=== PATIENT | female | born 1985 | race Caucasian/White ===

== ENCOUNTER 2018-08-30 20:09 | Inpatient (IN) | payer BC, OTHER ==
[~2018-08-30] VITALS: Ht 167.6 cm; Wt 92.5 kg
[~2018-08-30 20:09] MED LIST: ENLP5T GT; LINA290C PO
[2018-08-30] MEDS ORDERED: NS IV 1000 ML 1,000 ML IV SCH (20:19)
--- OUTSIDE RECORDS SUMMARY | 2018-08-30 20:19 | XMS REPORT ---
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 Active 13805460 Problem Chronic kidney disease, stage 3 N18.3 Active 030777764 Problem CHI I (cervical intraepithelial neoplasia I) N87.0 Active 449293916 Problem Mild episode of recurrent major depressive disorder F33.0 Active 603226731 Problem Addiction to drug F19.20 Active 224350691 Problem Essential hypertension I10 Active 49157894 Problem Opioid use disorder, severe, in sustained remission F11.21 Active 21218867 Problem Irritable bowel syndrome with constipation K58.1 Active 902021894 ALLERGIES No Information ENCOUNTERS Encounter Location Date Diagnosis [place] [id number] [place] [address] 06906- 4714 12 Aug, 2018 Opioid use disorder, severe, 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 [facility] [address] [place] [address] 21 Jul, 2018 Opioid use disorder, severe, in sustained remission F11.21 [place] [id number] [place] [address] 76174- 7737 19 Jul, 2018 [place] [id number] [place] [address] 90242- 9764 14 Jul, 2018 Opioid use disorder, moderate, dependence F11.20 and Opioid use disorder, severe, 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 [place] [id number] [place] [address] 68608- 7799 Jun, Opioid use disorder, severe, 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 [facility] [id number] [place] [address] 07861- 8213 Jun, [facility] [id number] [place] [address] 00198- 9380 May, Opioid use disorder, severe, 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 [facility] [id number] [place] [address] 90736- 1938 May, [facility] [address] 44352- 0606 May, [facility] [id number] [place] [address] 36339- 1616 May, Opioid use disorder, severe, 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 [facility] [address] [place] [address] May, Opioid use disorder, severe, in sustained remission F11.21 [facility] [id number] [place] [address] 65793- 0591 Apr, [facility] [id number] [place] [address] 02922- 1945 Apr, [facility] [id number] [place] [address] 57777- 8377 Apr, [facility] [id number] [place] [address] 10711- 1398 Apr, Opioid use disorder, severe, 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 [facility] [id number] [place] [address] 02889 -6347 Apr, Bacterial conjunctivitis of left eye H10.9 [facility] [id number] [place] [address] 80575- 4679 Apr, [facility] [address] 12484- 6877 Apr, [facility] [id number] [place] [address] 53894- 3823 Mar, Essential hypertension I10 and Irritable bowel syndrome with constipation K58.1 [facility] [id number] [place] [address] 82428- 8573 Mar, [facility] [id number] [place] [address] 71142- 1908 Mar, Chronic kidney disease, stage 3 N18.3 ; 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 ; Opioid use disorder, severe, in sustained remission F11.21 and Mixed hyperlipidemia E78.2 [facility] [id number] [place] [address] 58050- 8356 Mar, Mixed hyperlipidemia E78.2 [facility] [id number] [place] [address] 69960- 0325 Mar, Opioid use disorder, severe, 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 [facility] [id number] [place] [address] 39436- 8222 Mar, [facility] [address] [place] [address] Mar, Opioid use disorder, severe, in sustained remission F11.21 [facility] [id number] [place] [address] 05372- 9901 Jan, Opioid use disorder, severe, 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 [facility] [id number] [place] [address] 68644- 8971 December, Opioid use disorder, severe, 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 [facility] [address] [place] [address] December, Opioid use disorder, severe, in sustained remission F11.21 [facility] [address] [place] [address] 62958- 6617 December, Opioid use disorder, severe, in sustained remission F11.21 and 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 [facility] [id number] [place] [address] 67120- 5051 December, Opioid use disorder, severe, 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 [facility] [address] [place] [address] Dec, Opioid use disorder, severe, in sustained remission F11.21 [facility] [id number] [place] [address] 56765- 8765 Dec, 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 ; Unprotected sexual intercourse Z72.51 ; Pain of left thumb M79.645 ; Mixed hyperlipidemia E78.2 ; Gastroparesis K31.84 ; Essential hypertension I10 and Irritable bowel syndrome with constipation K58.1 [facility] [address] 91508- 3119 Dec, Opioid use disorder, severe, 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 [facility] [address] 74745- 4694 Oct, [facility] [address] 95660- 6637 Oct, Opioid use disorder, severe, 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 [facility] [id number] [place] [address] 71091- 9306 Oct, [facility] [id number] [place] [address] 22546- 4644 Oct, Opioid use disorder, severe, 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 [facility] [id number] [place] [address] 32464- 9020 Oct, [facility] [address] 72525- 7564 Oct, [facility] [address] [place] [address] Oct, Opioid use disorder, severe, in sustained remission F11.21 [facility] [address] 12433- 5509 Sep, [facility] [address] [place] [address] 09973- 3919 Sep, [facility] [id number] [place] [address] 811332- 7238 Sep, Opioid use disorder, severe, 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 [facility] [id number] [place] [address] 31744- 9635 Aug, Opioid use disorder, severe, 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 [facility] [id number] [place] [address] 66898- 5667 Jul, [facility] [id number] [place] [address] 81758- 6445 Jul, Chronic kidney disease, stage 3 N18.3 ; Dysthymia F34.1 and Opioid use disorder, severe, in sustained remission F11.21 [facility] [address] [place] [address] Jul, Opioid use disorder, severe, in sustained remission F11.21 [facility] [id number] [place] [address] 35383- 7178 Jul, Long-term use of high-risk medication Z79.899 and Chronic kidney disease, stage 3 N18.3 [facility] [address] [place] [address] 36451- 9497 Jul, Opioid use disorder, severe, 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 [facility] [address] [address] 1101 Jul, [facility] [id number] [place] [address] 68387- 4963 Jun, [facility] [id number] [place] [address] 47283- 8907 Jun, [facility] [address] [place] [address] 26481- 0718 Jun, Opioid use disorder, moderate, dependence F11.20 and Opioid use disorder, severe, 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 [facility] [id number] [place] [address] 26147- 7750 Jun, [facility] [id number] [place] [address] 28519- 0437 Jun, Long-term use of high-risk medication Z79.899 [place] [address] 43603- 2769 Jun, CHI I (cervical intraepithelial neoplasia I) N87.0 [place] [address] 91210- 4062 22 May, 2017 Opioid use disorder, severe, 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 [place] [id number] [place] [address] 76202- 1198 18 May, 2017 Chronic kidney disease, stage 3 N18.3 [place] [address] 06333- 2290 14 May, 2017 Chronic kidney disease, stage 3 N18.3 [place] [address] [place] [address] 05 May, 2017 Opioid use disorder, severe, in sustained remission F11.21 [place] [id number] [place] [address] 14821- 5271 Apr, LGSIL on Pap smear of cervix R87.612 [facility] [address] [place] [address] Apr, [facility] [id number] [place] [address] 44332- 3395 Apr, Opioid use disorder, severe, 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 [place] [id number] [place] [address] 10577- 5367 Apr, Opioid use disorder, severe, 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 [place] [id number] [place] [address] 41941- 0831 Apr, Opioid use disorder, severe, 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 [facility] [address] [place] [address] 41262- 0381 Apr, Opioid use disorder, severe, 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 [facility] [id number] [place] [address] 82696- 3709 14 Apr, 2017 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 [facility] [id number] [place] [address] 81194- 1815 Apr, Opioid use disorder, severe, 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 [facility] [address] [place] [address] Apr, Opioid use disorder, severe, in sustained remission F11.21 [facility] [id number] [place] [address] 52747- 3675 Apr, Opioid use disorder, severe, 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 [facility] [id number] [place] [address] 59731- 2018 Apr, Mild episode of recurrent major depressive disorder F33.0 and Right acute serous otitis media, recurrence not specified H65.01 [facility] [id number] [place] [address] 78157- 9593 Mar, [facility] [id number] [place] [address] 48977- 7731 Mar, Opioid use disorder, severe, 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 [facility] [id number] [place] [address] 06487- 2667 Mar, [facility] [address] [place] [address] Mar, Opioid use disorder, severe, in sustained remission F11.21 [facility] [address] [place] [address] Mar, Opioid use disorder, severe, in sustained remission F11.21 [facility] [id number] [place] [address] 15859- 3452 Mar, Opioid use disorder, severe, 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 [facility] [id number] [place] [address] 34729- 9371 Jan, Opioid use disorder, severe, 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 [facility] [address] [place] [address] Jan, Opioid use disorder, severe, in sustained remission F11.21 [facility] [address] [place] [address] Jan, Opioid use disorder, severe, in sustained remission F11.21 [facility] [address] [place] [id number] [place] [address] 07656- 7372 Jan, Opioid use disorder, severe, 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 [facility] [address] [place] [address] Jan, Opioid use disorder, severe, in sustained remission F11.21 [place] [id number] [place] [address] 50541- 0813 December, Opioid use disorder, severe, 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 [facility] [address] [place] [address] December, Opioid use disorder, severe, in sustained remission F11.21 [place] [id number] [place] [address] 32618- 2055 December, Routine gynecological examination Z01.419 and Chronic kidney disease, stage 3 N18.3 [place] [id number] [place] [address] 49265- 4005 December, Chronic kidney disease, stage 3 N18.3 ; 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 ; Gastroparesis K31.84 ; Essential hypertension I10 and Irritable bowel syndrome with constipation K58.1 [facility] [address] [place] [address] December, Opioid use disorder, severe, in sustained remission F11.21 [facility] [address] [place] [id number] [place] [address] 56868- 7995 December, Opioid use disorder, severe, 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 [facility] [address] [place] [address] December, Opioid use disorder, severe, in sustained remission F11.21 [facility] [id number] [place] [address] 20173- 5594 December, Encounter for therapeutic drug level monitoring Z51.81 [facility] [address] [place] [address] December, Opioid use disorder, severe, in sustained remission F11.21 [facility] [address] [place] [address] Dec, Opioid use disorder, severe, in sustained remission F11.21 [facility] [id number] [place] [address] 49498- 9411 Dec, Opioid use disorder, severe, 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 [facility] [id number] [place] [address] 61663- 3707 Dec, [facility] [address] [place] [address] Dec, Opioid use disorder, severe, in sustained remission F11.21 [facility] [address] [place] [id number] [place] [address] 52746- 9524 Dec, Opioid use disorder, severe, 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 [facility] [address] [place] [address] Dec, Opioid use disorder, severe, in sustained remission F11.21 [facility] [address] [place] [id number] [place] [address] 34825- 1666 Dec, 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 [facility] [address] [place] [address] 96902- 8102 Dec, Opioid use disorder, severe, in sustained remission F11.21 ; Encounter for therapeutic drug level monitoring Z51.81 and Other mcc ( 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 Z79.899 [facility] [address] [place] [address] Oct, Opioid use disorder, severe, in sustained remission F11.21 [facility] [address] [place], [place] [id number] [place] [address] 93138- 2982 23 Oct, 2016 Opioid use disorder, severe, 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 [facility] [id number] [place] [address] 45091- 6395 15 Oct, 2016 [facility] [address] [place] [address] 15 Oct, 2016 Opioid use disorder, severe, in sustained remission F11.21 [facility] [id number] [place] [address] 95690- 7440 15 Oct, 2016 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 [facility] [id number] [place] [address] 22867- 9815 14 Oct, 2016 Routine gynecological examination Z01.419 [facility] [id number] [place] [address] 89450- 6287 07 Oct, 2016 Opioid use disorder, severe, 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 [facility] [id number] [place] [address] 36878- 2602 06 Oct, 2016 Opioid use disorder, severe, 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 [facility] [id number] [place] [address] 56757- 5837 06 Oct, 2016 Opioid use disorder, severe, 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 [facility] [address] [place] [address] 02 Oct, 2016 Opioid use disorder, severe, in sustained remission F11.21 [facility] [id number] [place] [address] 16436- 7167 24 Oct, 2016 Opioid use disorder, severe, 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 [facility] [id number] [place] [address] 43326- 9291 Oct, Opioid use disorder, severe, 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 [facility] [address] [place] [address] Oct, Opioid use disorder, severe, in sustained remission F11.21 [facility] [address] [place] [address]- 8243 20 Oct, 2016 Opioid use disorder, severe, in sustained remission F11.21 ; Encounter for therapeutic drug level monitoring Z51.81 and Other long distance operator ( 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 Z79.899 [facility] [id number] [place] [address] 98364- 7956 16 Oct, 2016 [facility] [address] [place] [address] 14 Oct, 2016 Opioid use disorder, severe, 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 [facility] [address] [place] [address] 10 Oct, 2016 Opioid use disorder, severe, 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 [facility] [address] 41106- 8459 09 Oct, 2016 Opioid use disorder, severe, 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 [facility] [address] 31998- 7945 08 Oct, 2016 [facility] [address] 45274- 2540 Oct, [facility] [address] 16969- 9772 Oct, [facility] [address] [place] [address] Oct, Opioid use disorder, severe, 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 [facility] [address] 08383- 4438 Sep, Opioid use disorder, severe, 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 [facility] [address] [place] [address] Sep, Opioid use disorder, severe, 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 [facility] [id number] [place] [address] 29971- 6171 Sep, Opioid use disorder, severe, 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 ; Other long distance operator (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 Z79.899 and Encounter for therapeutic drug level monitoring Z51.81 [place] [id number] [place] [address] 66605- 6703 Sep, [facility] [id number] [place] [address] 54753- 1697 Sep, [facility] [id number] [place] [address] 41205- 2148 Sep, Opioid use disorder, severe, 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 ; 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 ; Chronic kidney disease, stage 3 N18.3 ; Essential hypertension I10 and Irritable bowel syndrome with constipation K58.1 [facility] [address] [place] [address] Sep, Opioid use disorder, severe, 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 [facility] [address] [place] [address] Sep, Opioid use disorder, severe, 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 05421- 8455 Sep, Opioid use disorder, moderate, dependence F11.20 [facility] [address] [place] [id number] [place] [address] 29565- 1066 Sep, Opioid use disorder, moderate, dependence F11.20 [facility] [address] [place] [address] Sep, Opioid use disorder, severe, 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 [place] [id number] [place] [address] 52943- 3050 Sep, Opioid use disorder, severe, 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 [facility] [address] [place] [address] Aug, Opioid use disorder, severe, 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 [facility] [address] [place] [id number] [place] [address] 26903- 0277 Aug, Opioid use disorder, moderate, dependence F11.20 [facility] [id number] [place] [address] 21326 -0097 26 Dec, 2016 Bug bite without infection, initial encounter W57.XXXA [facility] [address] [place] [address] 50522- 3405 Aug, Opioid use disorder, moderate, dependence F11.20 [facility] [address] [place] [address] Aug, [facility] [id number] [place] [address] 38747- 8878 Aug, Opioid use disorder, severe, 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 ; Other mcc (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 Z79.899 ; Encounter for therapeutic drug level monitoring Z51.81 and 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 [facility] [address] [place] [address] Aug, [facility] [id number] [place] [address] 37781- 7401 Aug, Opioid use disorder, moderate, dependence F11.20 ; Other long distance operator (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 Z79.899 and Encounter for therapeutic drug level monitoring Z51.81 [facility] [id number] [place] [address] 83756- 0828 Aug, [facility] [id number] [place] [address] 62831- 2014 Aug, Non-intractable vomiting with nausea, unspecified vomiting type R11.2 [facility] [id number] [place] [address] 53933- 5629 Aug, Opioid use disorder, moderate, dependence F11.20 and Non- intractable vomiting with nausea, unspecified vomiting type R11.2 [facility] [address] [place] [address] 45485- 6039 Aug, [facility] [id number] [place] [address] 59042- 1666 Aug, Opioid use disorder, moderate, dependence F11.20 [facility] [id number] [place] [address] 07141- 2723 Aug, [facility] [id number] [place] [address] 75434- 2314 Jul, 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 and Opioid use disorder, moderate, dependence F11.20 [facility] [address] [place] [address] Jul, [facility] [id number] [place] [address] 72230- 8281 Jul, [facility] [address] 04067- 4710 Jul, [facility] [address] 48649- 2745 Jul, Addiction to drug F19.20 and Chronic kidney disease, stage 3 N18.3 [facility] [address] [place] [address] Jul, Counseling on substance use and abuse Z71.89 [facility] [address] 19165- 5421 Jul, Chronic kidney disease, stage 3 N18.3 [facility] [id number] [place] [address] 13600- 3677 Jul, 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 ; Diarrhea, unspecified type R19.7 and Essential hypertension I10 [facility] [id number] [place] [id number] Jul, [facility] [id number] [place] [id number] Jun, [facility] [address] [id number] [address] [place] [address] 88013- 3278 Jun, [facility] [address] [address]- [address]67 Apr, 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 [facility] [id number] [place] [address] 62620- 2849 Apr, Sore throat and laryngitis J06.0 and Non-intractable vomiting with nausea, unspecified vomiting type R11.2 [place] [id number] [place] [address] 58032- 8879 Apr, [facility] [id number] [place] [address] 35211- 3592 Mar, [place] [id number] [place] [address] 36050- 6581 Jan, [place] [id number] [place] [address] 69065- 0554 Jan, [place] [id number] [place] [address] 70957- 9125 Jan, [place] [id number] [place] [address] 02573- 3503 December, 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 ; Gastroparesis K31.84 ; Mixed hyperlipidemia E78.2 ; Chronic kidney disease, stage 3 N18.3 ; Dysthymia F34.1 and Acute bilateral low back pain without sciatica M54.5 [place] [id number] [place] [address] 13092- 0719 December, [place] [id number] [place] [address] 37600- 1326 December, [facility] [id number] [place] [address] 59861- 3781 Aug, Depression F32.9 and Gastroparesis K31.84 [place] [id number] [place] [address] 56607- 1753 Aug, Gastroparesis K31.84 [place] [id number] [place] [address] 56506- 1337 Jul, Recurrent UTI N39.0 ; Chronic kidney disease, stage 3 N18.3 and 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 [facility] [id number] [place] [address] 32522- 0582 Jul, [facility] [address] [id number] Jul, Dental examination Z01.20 and Dental caries K02.9 [facility] [id number] [place] [address] 79143- 5044 17 Jul, 2015 [facility] [id number] [place] [address] 53125 -4442 Jul, Dysuria R30.0 ; Urinary tract infection N39.0 and Nausea R11.0 [facility] [id number] [place] [address] 94006- 7934 Jun, Dysuria R30.0 [facility] [id number] [place] [address] 80394- 7889 Jun, Dysuria R30.0 [facility] [id number] [place] [address] 35878- 3642 Jun, Dysuria R30.0 [facility] [id number] [place] [address] 37274- 0282 Jun, [facility] [id number] [place] [address] 32389- 8693 Jun, Acute cystitis with hematuria N30.01 [facility] [id number] [place] [address] 00806- 6335 May, [facility] [id number] [place] [address] 98857- 7274 Apr, Diabetes mellitus without mention of complication, type I [ juvenile type], not stated as uncontrolled 250.01 ; Gastroparesis due to DM 250.60 ; Contraception management V25.9 and Renal insufficiency 593.9 [facility] [id number] [place] [address] 98177- 6963 Apr, [facility] [id number] [place] [address] 56723- 7152 Apr, [place] [id number] [place] [address] 43550- 3503 Mar, [place] [id number] [place] [address] 10307- 4099 Mar, Hyperlipidemia 272.4 and Hypertensive heart and chronic kidney disease, benign, without heart failure and with chronic kidney disease stage I through stage IV, or unspecified 404.10 [address] [id number] [place] [address] 08209- 7008 Mar, Hyperlipidemia 272.4 ; Hyponatremia 276.1 ; 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 ; Hypertensive heart and chronic kidney disease, benign, without heart failure and with chronic kidney disease stage I through stage IV, or unspecified 404.10 ; Proteinuria 791.0 and Chronic kidney disease (CKD), stage III (moderate) 585.3 [address] [id number] [place] [address] 67549- 4560 Mar, [place] [id number] [place] [address] 41151- 0355 Mar, Elevated blood sugar level 790.29 [place] [id number] [place] [address] 73622- 5480 Mar, Low grade squamous intraepithelial lesion (LGSIL) on cervical Pap smear 795.03 [place] [id number] [place] [address] 88780- 2815 Mar, Amenorrhea 626.0 [place] [id number] [place] [address] 23472- 1299 Jan, Amenorrhea 626.0 ; Routine gynecological examination V72.31 and Screen for STD (sexually transmitted disease) V74.5 [place] [id number] [place] [address] 49408- 2511 Jan, Amenorrhea 626.0 [address] [place] [address] 42320- 5413 Jan, Routine gynecological examination V72.31 ; Screen for STD ( sexually transmitted disease) V74.5 ; Pap test, as part of routine gynecological examination V76.2 ; Breast cancer screening V76.10 and Amenorrhea 626.0 [facility] [address] [address]- 6806 December, [facility] [address], [place] [address]- 7988 Dec, [facility] [address], [place] [address]- 6177 Dec, [facility] [address], [place] [address]- 3633 Oct, [facility] [address], [place] [address]- 3512 Oct, [facility] [address], [place] [address]- 0151 Oct, [facility] [address], [place] [address]- 8338 Oct, [facility] [address], [place] [address]- 4843 Oct, [facility] [address], [place] [address]- 8281 Oct, [facility] [address], [place] [address]- 8345 Oct, [facility] [address], [place] [address]- 8797 Oct, [facility] [address], [place] [address]- 0986 Oct, [facility] [address], [place] [address]- 6736 Oct, [facility] [address] [address]- 1746 Oct, [facility] [id number] [place] [address]- 2110 Sep, [facility] [address] [id number] [place] [address]- 7175 Sep, [facility] [place] [facility] [address] [id number] [place] [address]- 7855 Sep, [facility] [address] [id number] [place] [address]- 4535 Sep, [facility] [place] [facility] [address] [id number] [place] [address]- 5362 Sep, [facility] [address] [id number] [place] [address]- 8010 Sep, [facility] [address] [id number] [place] [address]- 7825 Sep, [facility] [address] [id number] [place] [address]- 5019 Sep, [facility] [address] [id number] [place] [address]- 8504 Sep, [facility] [place] [facility] [address] [id number] [place] [address]- 8086 Sep, [facility] [address] [id number] [place] [address]- 2377 Sep, [facility] [place] [facility] [address] [id number] [place] [address]- 5676 Sep, [facility] [place] [facility] [address] [id number] [place] [address]- 9349 Sep, [facility] [place] [facility] [address] [id number] [place] [address]- 3187 Sep, [facility] [place] [facility] [address] [id number] [place] [address]- 8766 Sep, [facility] [place] [facility] [address] [id number] [place] [address]- 6529 Sep, [facility] [place] [facility] [address] [id number] [place] 1399 Sep, [facility] [place] [facility] [address] [id number] [place] [address]- 7432 Sep, [facility] [place] [facility] [address] [id number] [place] [address]- 0008 Sep, [facility] [place] [facility] [address] [id number] [place] [address]- 4195 Sep, [facility] [place] [facility] [address] [id number] [place] [address]- 2015 Aug, [facility] [place] [facility] [address] [id number] [place] [address]- 0604 Aug, [facility] [place] [facility] [address] [id number] [place] [address]- 4596 Aug, [facility] [place] [facility] [address] [id number] [place] [address]- 5316 Aug, [facility] [place] [facility] [address] [id number] [place] [address]- 3013 Aug, [facility] [place] [facility] [address] [id number] [place] [address]- 9017 Aug, [facility] [place] [facility] [address] [id number] [place] [address]- 2522 Aug, [facility] [place] [facility] [address] [id number] [place] [address]- 8908 Aug, [facility] [place] [facility] [address] [id number] [place] [address]- 2318 Aug, [facility] [place] [facility] [address] [id number] [place] [address]- 2505 Aug, [facility] [place] [facility] [address] [id number] [place] [address]- 3083 Aug, [facility] [place] [facility] [address] [id number] [address]- 4272 Aug, [facility] [place] [facility] [address] [id number] [place] [address]- 9990 Jul, [facility] [place] [facility] [address] [id number] [place] [address]- 8830 Jul, [facility] [place] [facility] [address] [id number] [place] [address]- 7150 Jul, [facility] [place] [facility] [address] [id number] [place] [address]- 3939 Jul, [facility] [place] [facility] [address] [id number] [place] [address]- 6894 Jul, [facility] [place] [facility] [address] [id number] [place] [address]- 8805 Jul, [facility] [place] [facility] [address] [id number] [place] [address]- 2077 Jul, [facility] [place] [facility] [address] [id number] [place] [address]- 0246 Jul, [facility] [place] [facility] [address] [id number] [place] [address]- 2326 Jul, [facility] [place] [facility] [address] [facility] [id number] [place] [address]- 6219 Jul, [facility] [place] [facility] [address] [id number] [place] [address]- 0202 Jun, [facility] [place] [facility] [address] [id number] [address]- 6795 Jun, [facility] [place] [facility] [address] [id number] [address]- 0964 Jun, [facility] [place] [facility] [address] [id number], [place] [address]- 6855 Jun, [facility] [place] [facility] [address] [id number] [address]- 2880 Jun, [facility] [place] [facility] [address] [id number] [place] [address]- 6944 30 Jun, 2014 [facility] [place] [facility] [address] [id number] [place] [address]- 3166 15 Jun, 2014 [facility] [place] [facility] [address] [id number] [place] [address]- 6306 15 Jun, 2014 [facility] [place] [facility] [address] [id number] [place] [address]- 7427 22 May, 2013 [facility] [place] [facility] [address] [id number] [place] [address] 254 22 May, 2013 [facility] [place] [facility] [address] [id number] [place] [address]- 4750 18 May, 2014 [facility] [place] [facility] [address] [id number] [place] [address]- 1203 18 May, 2014 [facility] [place] [facility] [address] [id number] [place] [address]- 4844 09 May, 2014 [facility] [place] [facility] [address] [id number] [place] [address]- 5761 08 May, 2014 [facility] [place] [facility] [address] [id number] [place] [address]- 3828 02 May, 2014 [facility] [place] [facility] [address] [id number] [place] [address]- 5321 May, [facility] [place] [facility] [address] [id number] [place] [address]- 7447 Apr, [facility] [place] [facility] [address] [id number] [place] [address]- 9457 Apr, [facility] [place] [facility] [address] [id number] [place] [address]- 8412 Apr, [facility] [place] [facility] [address] [id number] [place] [address]- 2540 Apr, [facility] [place] [facility] [address] [id number] [place] [address]- 8993 Mar, [facility] [place] [facility] [address] [id number] [place] [address]- 7369 Mar, [facility] [place] [facility] [address] [id number] [place] [address]- 4903 Mar, [facility] [place] [facility] [address] [id number] [place] [address]- 9840 Mar, [facility] [place] [facility] [address] [id number] [place] [address]- 3846 Mar, [facility] [place] [facility] [address] [id number] [place] [address]- 0025 Mar, [facility] [place] [facility] [address] [id number] [place] [address]- 9127 Jan, [facility] [place] [facility] [address] [id number] [place] [address]- 2905 Jan, [facility] [place] [facility] [address] [id number] [place] [address]- 4436 Jan, [facility] [place] [facility] [address] [id number] [place] [address]- 3151 Jan, [facility] [place] [facility] [address] [id number] [place] [address]- 9015 Jan, [facility] [place] [facility] [address] [id number], [place] [address]- 5722 Jan, [facility] [place] [facility] [address] [id number], [place] [address]- 2604 Jan, [facility] [place] [facility] [address] [id number] [place] [address]- 4459 Jan, [facility] [place] [facility] [address] [id number] [place] [address]- 7098 Jan, [facility] [place] [facility] [address] [id number] [place] [address]- 2392 Jan, [facility] [place] [facility] [address] [id number] [place] [address]- 4528 Jan, [facility] [place] [facility] [address] [id number] [place] [address]- 4225 Jan, [facility] [place] [facility] [address] [id number] [place] [address]- 6896 December, [facility] [place] [facility] [address] [id number] [place] [address]- 8210 December, [facility] [place] [facility] [address] [id number] [place] [address]- 0324 December, [facility] [place] [facility] [address] [id number] [place] [address]- 9940 December, [facility] [place] [facility] [address] [id number] [place] [address]- 5964 Dec, [facility] [place] [facility] [address] [id number] [place] [address]- 8884 Dec, [facility] [place] [facility] [address] [id number] [place] [address]- 6142 Dec, [facility] [place] [facility] [address] [id number] [place] [address]- 9165 Dec, [facility] [place] [facility] [address] [id number] [place] [address]- 5032 Dec, [facility] [place] [facility] [address] [id number] [place] [address]- 6513 Dec, [facility] [place] [facility] [address] [id number] [place] [address]- 8004 Dec, [facility] [place] [facility] [address] [id number] [place] [address]- 3109 Dec, [facility] [place] [facility] [address] [id number] [place] [address]- 9735 Dec, [facility] [place] [facility] [address] [id number] [place] [address]- 1202 Dec, [facility] [place] [facility] [address] [id number] [place] [address]- 9490 Dec, [facility] [place] [facility] [address] [id number] [place] [address]- 5939 Dec, [facility] [place] [facility] [address] [id number] [place] [address]- 1901 Dec, [facility] [place] [facility] [address] [id number] [place] [address]- 7832 Dec, [facility] [place] [facility] [address] [id number] [place] [address]- 5614 Oct, [facility] [place] [facility] [address] [id number] [place] [address]- 6881 Oct, [facility] [place] [facility] [address] [id number] [place] [address]- 5531 Oct, [facility] [place] [facility] [address] [id number] [place] [address]- 2213 Oct, [facility] [place] [facility] [address] [id number] [place] [address]- 2376 Oct, [facility] [place] [facility] [address] [id number] [place] [address]- 1681 Oct, [facility] [place] [facility] [address] [id number] [place] [address] Oct, [facility] [place] [facility] [address] [id number] [place] [address]- 8536 Oct, [facility] [place] [facility] [address] [id number] [place] [address]- 2132 Oct, [facility] [place] [facility] [address] [id number] [place] [address]- 2271 Oct, [facility] [place] [facility] [address] [id number] [place] [address]- 0626 Sep, [facility] [place] [facility] [address] [id number], [place] [address]- 8176 Sep, [facility] [id number] 7635 Sep, [facility] [address] 0266 Sep, [facility] [address] 7536 Sep, [facility] [address] 9604 Sep, [facility] [address]- 2577 Aug, [facility] [address] [place] [address] 259445- 7511 Aug, [facility] [address] [place] [address] 261501- 2054 Jul, [facility] [address] [place] [address] 91077- 0503 Jul, [facility] [address] 7678 Jul, [facility] [address], [place] [address]- 3945 Jul, [facility] [id number], [place] [address]- 5030 Jul, IMMUNIZATIONS No Known Immunizations SOCIAL HISTORY Never Assessed REASON FOR VISIT Suboxone rx (08/14-09/10) PLAN OF CARE VITAL SIGNS MEDICATIONS Medication Instructions Dosage Frequency Start Date End Date Duration Status Suboxone 8-2 MG Sublingual Once a day 2.5 film under the tongue and allow to dissolve 24h Aug, 28 days Active RESULTS No Results PROCEDURES No Known procedures INSTRUCTIONS MEDICATIONS ADMINISTERED No Known Medications MEDICAL (GENERAL) HISTORY Type Description Date Medical History Type 1 Diabetes mellitus Medical History hx of hypertension Medical History gastroparesis Medical History hx of renal insufficiency 09/2014 Medical History Unspecified renal failure Medical History Gastroparesis due to DM Medical History Opiod Addiction Hx Surgical History oral surgery at age 16 Hospitalization History Gastroperisis 2012
--- OUTSIDE RECORDS SUMMARY | 2018-08-30 20:20 | XMS REPORT ---
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 [address] [place] [address] Jul, Opioid use disorder, severe, in sustained remission F11.21 [facility] [id number] [address] 19 Jul, 2018 [facility] [id number] [place] [address] 77736- 2741 14 Jul, 2018 Opioid use disorder, moderate, dependence F11.20 and Opioid use disorder, severe, 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 [place] [id number] [address] 18 Jun, 2018 Opioid use disorder, severe, 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 [place] [id number] [place] [address] 41436- 0460 Jun, [facility] [id number] [place] [address] 25225- 1743 May, Opioid use disorder, severe, 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 [facility] [id number] [place] [address] 74972- 4737 May, [facility] [id number] [place] [address] 60352- 7942 May, [facility] [id number] [place] [address] 52540- 3064 May, Opioid use disorder, severe, 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 [facility] [address] [place] [address] May, Opioid use disorder, severe, in sustained remission F11.21 [facility] [id number] [place] [address] 33896- 5873 Apr, [facility] [id number] [place] [address] 02586- 7866 Apr, [facility] [id number] [place] [address] 73217- 2030 Apr, [facility] [id number] [place] [address] 75801- 7478 Apr, Opioid use disorder, severe, 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 [facility] [id number] [place] [address] 21521 -2422 Apr, Bacterial conjunctivitis of left eye H10.9 [facility] [id number] [place] [address] 39788- 5856 Apr, [facility] [id number] [place] [address] 51503- 9597 Apr, [facility] [id number] [place] [address] 99374- 9624 Mar, Essential hypertension I10 and Irritable bowel syndrome with constipation K58.1 [facility] [id number] [place] [address] 95937- 8765 Mar, [facility] [id number] [place] [address] 14658- 5423 Mar, Chronic kidney disease, stage 3 N18.3 ; 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 ; Opioid use disorder, severe, in sustained remission F11.21 and Mixed hyperlipidemia E78.2 [facility] [id number] [place] [address] 37258- 1089 Mar, Mixed hyperlipidemia E78.2 [facility] [id number] [place] [address] 47078- 7564 Mar, Opioid use disorder, severe, 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 [facility] [id number] [place] [address] 43036- 3745 Mar, [facility] [address] [place] [address] Mar, Opioid use disorder, severe, in sustained remission F11.21 [facility] [id number] [place] [address] 77609- 4250 Jan, Opioid use disorder, severe, 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 [facility] [id number] [place] [address] 18565- 8633 December, Opioid use disorder, severe, 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 [facility] [address] [place] [address] December, Opioid use disorder, severe, in sustained remission F11.21 [facility] [id number] [place] [address] 56495- 8515 December, Opioid use disorder, severe, in sustained remission F11.21 and 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 [facility] [id number] [place] [address] 99303- 4776 December, Opioid use disorder, severe, 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 [facility] [address] [place] [address] Dec, Opioid use disorder, severe, in sustained remission F11.21 [facility] [id number] [place] [address] 35803- 7621 Dec, 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 ; Unprotected sexual intercourse Z72.51 ; Pain of left thumb M79.645 ; Mixed hyperlipidemia E78.2 ; Gastroparesis K31.84 ; Essential hypertension I10 and Irritable bowel syndrome with constipation K58.1 [facility] [id number] [place] [address] 36362- 3494 Dec, Opioid use disorder, severe, 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 [facility] [id number] [place] [address] 34733- 9001 Oct, [facility] [address] 11299- 4602 Oct, Opioid use disorder, severe, 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 [facility] [id number] [place] [address] 58388- 5143 Oct, [facility] [id number] [place] [address] 65587- 7285 Oct, Opioid use disorder, severe, 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 [facility] [id number] [place] [address] 61461- 5616 Oct, [facility] [id number] [place] [address] 23954- 2545 Oct, [facility] [address] [place] [address] Oct, Opioid use disorder, severe, in sustained remission F11.21 [facility] [id number] [place] [address] 49925- 1070 Sep, [facility] [id number] [place] [address] 47343- 3730 Sep, [facility] [id number] [place] [address] 88815- 6918 Sep, Opioid use disorder, severe, 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 [facility] [id number] [place] [address] 38600- 1749 Aug, Opioid use disorder, severe, 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 [facility] [id number] [place] [address] 39902- 8907 Jul, [facility] [id number] [place] [address] 73146- 4823 Jul, Chronic kidney disease, stage 3 N18.3 ; Dysthymia F34.1 and Opioid use disorder, severe, in sustained remission F11.21 [place] [address] [place] [address] Jul, Opioid use disorder, severe, in sustained remission F11.21 [place] [facility] [id number] [place] [address] 59604- 1343 Jul, Long-term use of high-risk medication Z79.899 and Chronic kidney disease, stage 3 N18.3 [facility] [id number] [place] [address] 36298- 3715 Jul, Opioid use disorder, severe, 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 [place] [place] [address] [place] [address] 83142- 9179 Jul, [place] [id number] [place] [address] 95170- 0278 Jun, [place] [place] [address] [place] [address] 06799- 2913 Jun, [place] [id number] [place] [address] 29084- 8959 Jun, Opioid use disorder, moderate, dependence F11.20 and Opioid use disorder, severe, 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 [facility] [id number] [place] [address] 03179- 2011 Jun, [facility] [id number] [place] [address] 41160- 2327 Jun, Long-term use of high-risk medication Z79.899 [facility] [id number] [place] [address] 53810- 4641 Jun, HCI I (cervical intraepithelial neoplasia I) N87.0 [facility] [id number] [place] [address] 05196- 8038 May, Opioid use disorder, severe, 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 [place] [place] [id number] [place] [address] 64038- 4505 18 May, 2017 Chronic kidney disease, stage 3 N18.3 [place] [id number] [place] [address] 21790- 4274 14 May, 2017 Chronic kidney disease, stage 3 N18.[address] [facility] [address] [place] [address] 05 May, 2017 Opioid use disorder, severe, in sustained remission F11.21 [place] [id number] [place] [address] 07849- 6862 Apr, LGSIL on Pap smear of cervix R87.[address] [facility] [address] [place] [address] Apr, [facility] [id number] [place] [address] 00321- 2930 Apr, Opioid use disorder, severe, 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 [facility] [address] [place] [address] 03321- 1687 Apr, Opioid use disorder, severe, 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 [place] [id number] [place] [address] 40969- 9916 Apr, Opioid use disorder, severe, 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 [place] [address] [place] [address] 43287- 0610 18 Aug, 2017 Opioid use disorder, severe, 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 [facility] [address] [place] [address] 85851- 9511 14 Apr, 2017 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 [facility] [id number] [place] [address] 08418- 0008 10 Apr, 2017 Opioid use disorder, severe, 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 [facility] [address] [place] [address] Apr, Opioid use disorder, severe, in sustained remission F11.21 [facility] [id number] [place] [address] 92121- 4887 Apr, Opioid use disorder, severe, 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 [facility] [id number] [place] [address] 38394- 7531 Apr, Mild episode of recurrent major depressive disorder F33.0 and Right acute serous otitis media, recurrence not specified H65.01 [facility] [id number] [place] [address] 41746- 1666 Mar, [facility] [id number] [place] [address] 22348- 5830 Mar, Opioid use disorder, severe, 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 [facility] [id number] [place] [address] 71518- 2419 Mar, [facility] [address] [place] [address] Mar, Opioid use disorder, severe, in sustained remission F11.21 [facility] [address] [place] [address] Mar, Opioid use disorder, severe, in sustained remission F11.21 [facility] [id number] [place] [address] 51509- 8225 Mar, Opioid use disorder, severe, 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 [facility] [id number] [place] [address] 95013- 7387 Jan, Opioid use disorder, severe, 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 [facility] [address] [place] [address] Jan, Opioid use disorder, severe, in sustained remission F11.21 [facility] [address] [place] [address] Jan, Opioid use disorder, severe, in sustained remission F11.21 [facility] [address] [place] [id number] [place] [address] 54212- 6030 Jan, Opioid use disorder, severe, 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 [facility] [address] [place] [address] Jan, Opioid use disorder, severe, in sustained remission F11.[address] 89826- 6266 December, Opioid use disorder, severe, 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 [facility] [address] [place] [address] December, Opioid use disorder, severe, in sustained remission F11.21 [id number] [place] [address] 11987- 5372 December, Routine gynecological examination Z01.419 and Chronic kidney disease, stage 3 N18.3 [place] [id number] [place] [address] 75499- 9661 December, Chronic kidney disease, stage 3 N18.3 ; 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 ; Gastroparesis K31.84 ; Essential hypertension I10 and Irritable bowel syndrome with constipation K58.1 [facility] [address] [place] [address] December, Opioid use disorder, severe, in sustained remission F11.[address] 53097- 1849 December, Opioid use disorder, severe, 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 [facility] [address] [place] [address] December, Opioid use disorder, severe, in sustained remission F11.[address] [place] [address]- 78[address] December, Encounter for therapeutic drug level monitoring Z51.81 [facility] [address] [place] [address] December, Opioid use disorder, severe, in sustained remission F11.21 [facility] [address] [place] [address] Dec, Opioid use disorder, severe, in sustained remission F11.21 [facility] [id number] [place] [address] 92379- 9697 Dec, Opioid use disorder, severe, 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 [facility] [id number] [place] [address] 40484- 9907 Dec, [facility] [address] [place] [address] Dec, Opioid use disorder, severe, in sustained remission F11.21 [facility] [id number] [place] [address] 46332- 6278 Dec, Opioid use disorder, severe, 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 [facility] [address] [place] [address] Dec, Opioid use disorder, severe, in sustained remission F11.21 [facility] [id number] [place] [address] 76920- 9075 Dec, 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 [facility] [id number] [place] [address] 75731- 5700 Dec, Opioid use disorder, severe, in sustained remission F11.21 ; Encounter for therapeutic drug level monitoring Z51.81 and 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 [facility] [address] [place] [address] Oct, Opioid use disorder, severe, in sustained remission F11.21 [facility] [address] [place] [address] 12853- 1840 Oct, Opioid use disorder, severe, 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 [facility] [address] [place] [id number] [place] [address] 11331- 5880 15 Oct, 2016 [facility] [address] [place] [address] 15 Oct, 2016 Opioid use disorder, severe, in sustained remission F11.21 [facility] [id number] [place] [address] 26271- 8413 15 Oct, 2016 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 [place] [id number] [place] [address] 91004- 1373 14 Oct, 2016 Routine gynecological examination Z01.[address] 91230- 7793 07 Oct, 2016 Opioid use disorder, severe, 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 [place] [id number] [place] [address] 98374- 6938 06 Oct, 2016 Opioid use disorder, severe, 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 [place] [id number] [place] [address] 57807- 5008 06 Oct, 2016 Opioid use disorder, severe, 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 [facility] [address] [place] [address] 02 Oct, 2016 Opioid use disorder, severe, in sustained remission F11.21 [place] [id number] [place] [address] 92413- 6197 24 Oct, 2016 Opioid use disorder, severe, 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 [facility] [id number] [place] [address] 06413- 6018 Oct, Opioid use disorder, severe, 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 [facility] [address] [place] [address] Oct, Opioid use disorder, severe, in sustained remission F11.21 [facility] [address] [place] [id number] [place] [address] 30586- 8222 Oct, Opioid use disorder, severe, in sustained remission F11.21 ; Encounter for therapeutic drug level monitoring Z51.81 and Other mcc ( 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.899 [facility] [id number] [place] [address] 92377- 7356 16 Oct, 2016 [facility] [address] [place] [address] 14 Oct, 2016 Opioid use disorder, severe, 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 [facility] [address] [place] [address] 10 Oct, 2016 Opioid use disorder, severe, 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 [facility] [id number] [place] [address] 94882 2546 Oct, Opioid use disorder, severe, 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 [facility] [id number] [place] [address] 58952- 8456 08 Oct, 2016 [facility] [id number] [place] [address] 02055- 9406 Oct, [facility] [id number] [place] [address] 31814 2541 Oct, [facility] [address] [place] [address] Oct, Opioid use disorder, severe, 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 [facility] [id number] [place] [address] 36897- 1046 Sep, Opioid use disorder, severe, 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 [facility] [address] [place] [address] Sep, Opioid use disorder, severe, 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 [facility] [id number] [place] [address] 22685- 6287 Sep, Opioid use disorder, severe, 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 ; Other mcc (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 Z79.899 and Encounter for therapeutic drug level monitoring Z51.81 [facility] [address] [place] [address] 10814- 3527 Sep, [facility] [address] [place] [address] 98913- 1527 Sep, [facility] [address] [place] [address] 06748- 320 Sep, Opioid use disorder, severe, 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 ; 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 ; Chronic kidney disease, stage 3 N18.3 ; Essential hypertension I10 and Irritable bowel syndrome with constipation K58.1 [facility] [address] [place] [address] Sep, Opioid use disorder, severe, 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 [facility] [address] [place] [address] Sep, Opioid use disorder, severe, 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 16008- 3833 Sep, Opioid use disorder, moderate, dependence F11.[address] 32083- 5001 Sep, Opioid use disorder, moderate, dependence F11.20 [facility] [address] [place] [address] Sep, Opioid use disorder, severe, 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 50273- 3086 Sep, Opioid use disorder, severe, 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 [facility] [address] [place] [address] Aug, Opioid use disorder, severe, 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 41599- 2818 Aug, Opioid use disorder, moderate, dependence F11.20 [facility] [address] [place] [address] 93510 -1636 Aug, Bug bite without infection, initial encounter W57.XXXA [address] 73182- 7668 Aug, Opioid use disorder, moderate, dependence F11.20 [facility] [address] [place] [address] Aug, [facility] [id number] [place] [address] Aug, Opioid use disorder, severe, 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 ; Other mcc (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 Z79.899 ; Encounter for therapeutic drug level monitoring Z51.81 and 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 [facility] [address] [place] [address] Aug, [facility] [id number] [place] [address] 99052- 2828 Aug, Opioid use disorder, moderate, dependence F11.20 ; 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 and Encounter for therapeutic drug level monitoring Z51.81 [place] [id number] [place] [address] 40476- 2280 Aug, [facility] [id number] [place] [address] 45720- 7930 Aug, Non-intractable vomiting with nausea, unspecified vomiting type R11.2 [place] [id number] [place] [address] 86520- 1016 Aug, Opioid use disorder, moderate, dependence F11.20 and Non- intractable vomiting with nausea, unspecified vomiting type R11.2 [facility] [id number] [place] [address] 20495- 9571 Aug, [facility] [id number] [place] [address] 75466- [phone] Aug, Opioid use disorder, moderate, dependence F11.20 [facility] [id number] [place] [phone] Aug, [facility] [id number] [place] [phone] Jul, 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 and Opioid use disorder, moderate, dependence F11.20 [facility] [address] [place] [address] Jul, [facility] [address] [phone] Jul, [facility] [id number] [place] [phone] Jul, [place] [address] [address] Jul, Addiction to drug F19.20 and Chronic kidney disease, stage 3 N18.3 [facility] [address] [place] [phone] Jul, Counseling on substance use and abuse Z71.89 [place] [address] [address] Jul, Chronic kidney disease, stage 3 N18.3 [place] [address] [address] Jul, 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 ; Diarrhea, unspecified type R19.7 and Essential hypertension I10 [address] [address]- [address] Jul, [place] [id number] [place] [address] 63347- 5934 Jun, [place] [id number] [place] [address] 99634- 4022 Jun, [facility] [address] [address]- 6789 Apr, 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 86974- 0235 Apr, Sore throat and laryngitis J06.0 and Non-intractable vomiting with nausea, unspecified vomiting type R11.[address] 79771- 2474 Apr, [facility] [id number] [place] [address] 31366- 2042 Mar, [facility] [id number] [place] [address] 99976- 7139 Jan, [facility] [id number] [place] [address] 33232- 6334 Jan, [facility] [id number] [place] [address] 83925- 4231 Jan, [facility] [id number] [place] [address] 33671- 2045 December, 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 ; Gastroparesis K31.84 ; Mixed hyperlipidemia E78.2 ; Chronic kidney disease, stage 3 N18.3 ; Dysthymia F34.1 and Acute bilateral low back pain without sciatica M54.5 [place] [id number] [place] [address] 81100- 5760 December, [facility] [id number] [place] [address] 43694- 0776 December, [facility] [id number] [place] [address] 80375- 2964 Aug, Depression F32.9 and Gastroparesis K31.84 [facility] [id number] [place] [address] 34779- 2170 Aug, Gastroparesis K31.84 [facility] [id number] [place] [address] 62091- 5435 Jul, Recurrent UTI N39.0 ; Chronic kidney disease, stage 3 N18.3 and 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 [facility] [address] [address] 379[address] Jul, [facility] [id number] [place] [address] [id number] Jul, Dental examination Z01.20 and Dental caries K02.9 [facility] [id number] [place] [address] 16749- 2767 Jul, [facility] [id number] [place] [address] 66190 -2299 Jul, Dysuria R30.0 ; Urinary tract infection N39.0 and Nausea R11.0 [facility] [address] 71984- 1636 Jun, Dysuria R30.0 [facility] [id number] [place] [address] 36503- 3679 Jun, Dysuria R30.0 [facility] [id number] [place] [address] 71784- 5068 Jun, Dysuria R30.0 [facility] [address] 10495- 2149 Jun, [facility] [id number] [place] [address] 81516- 2141 Jun, Acute cystitis with hematuria N30.01 [facility] [id number] [place] [address] 45472- 2700 May, [facility] [id number] [place] [address] 51963- 1694 Apr, Diabetes mellitus without mention of complication, type I [ juvenile type], not stated as uncontrolled 250.01 ; Gastroparesis due to DM 250.60 ; Contraception management V25.9 and Renal insufficiency 593.9 [facility] [id number] [place] [address] 09080- 0711 Apr, [facility] [address] 69147- 9881 Apr, [facility] [id number] [place] [address] 53568- 0202 Mar, [facility] [address] [place] [address]- 4232 Mar, Hyperlipidemia 272.4 and Hypertensive heart and chronic kidney disease, benign, without heart failure and with chronic kidney disease stage I through stage IV, or unspecified 404.10 [place] [id number] [place] [address] 53839- 5243 Mar, Hyperlipidemia 272.4 ; Hyponatremia 276.1 ; 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 ; Hypertensive heart and chronic kidney disease, benign, without heart failure and with chronic kidney disease stage I through stage IV, or unspecified 404.10 ; Proteinuria 791.0 and Chronic kidney disease (CKD), stage III (moderate) 585.3 [place] [address] 37267- 8388 Mar, [address] 04564- 7496 Mar, Elevated blood sugar level 790.29 [place] [id number] [place] [address] 84862- 4339 Mar, Low grade squamous intraepithelial lesion (LGSIL) on cervical Pap smear 795.03 [place] [id number] [place] [address] 76994- 8469 Mar, Amenorrhea 626.[address] 35363- 2916 Jan, Amenorrhea 626.0 ; Routine gynecological examination V72.31 and Screen for STD (sexually transmitted disease) V74.[address] [place] [address] 80354- 7623 Jan, Amenorrhea 626.0 [place] [id number] [place] [address] 94039- 9133 08 Jan, 2015 Routine gynecological examination V72.31 ; Screen for STD ( sexually transmitted disease) V74.5 ; Pap test, as part of routine gynecological examination V76.2 ; Breast cancer screening V76.10 and Amenorrhea 626.0 [place] [address] [id number] [place] [address]- 1788 December, [facility] [place] [facility] [address] [id number] [place] [address]- 1911 14 Dec, 2014 [facility] [place] [facility] [address] [id number] [place] [address]- 0494 Dec, [facility] [place] [facility] [address] [id number] [place] [address]- 6545 30 Oct, 2014 [facility] [place] [facility] [address] [id number] [place] [address]- 6890 Oct, [facility] [place] [facility] [address] [id number] [place] [address]- 2677 Oct, [facility] [place] [facility] [address] [id number] [place] [address]- 7991 Oct, [facility] [place] [facility] [address] [id number] [place] [address]- 9749 Oct, [facility] [place] [facility] [address] [id number] [place] [address]- 4632 Oct, [facility] [place] [facility] [address] [id number] [place] [address]- 6162 Oct, [facility] [place] [facility] [address] [id number] [place] [address]- 7882 Oct, [facility] [place] [facility] [address] [id number] [place] [address]- 9712 Oct, [facility] [place] [facility] [address] [id number] [place] 7420 Oct, [facility] [place] [facility] [address] [id number] [place] [address]- 5991 Oct, [facility] [place] [facility] [address] [id number] [place] [address]- 4019 Sep, [facility] [place] [facility] [address] [id number] [place] [address]- 3979 Sep, [facility] [place] [facility] [address] [id number] [place] [address]- 5239 Sep, [facility] [place] [facility] [address] [id number] [place] [address]- 6888 Sep, [facility] [place] [facility] [address] [id number] [place] [address]- 0725 Sep, [facility] [place] [facility] [address] [id number] [place] [address]- 1780 Sep, [facility] [place] [facility] [address] [id number] [place] [address]- 6223 Sep, [facility] [place] [facility] [address] [id number] [place] [address]- 1687 Sep, [facility] [place] [facility] [address] [id number] [place] [address]- 5780 Sep, [facility] [place] [facility] [address] [id number] [place] [address]- 6593 Sep, [facility] [place] [facility] [address] [id number] [place] [address]- 7673 Sep, [facility] [place] [facility] [address] [id number] [place] [address]- 6415 Sep, [facility] [place] [facility] [address] [id number] [place] [address]- 7448 Sep, [facility] [place] [facility] [address] [id number] [place] [address]- 2751 Sep, [facility] [place] [facility] [address] [id number] [place] [address]- 0763 Sep, [facility] [place] [facility] [address] [id number] [place] [address]- 8458 Sep, [facility] [place] [facility] [address] [id number] [place] [address]- 3020 Sep, [facility] [place] [facility] [address] [id number] [place] [address]- 7454 Sep, [facility] [address] [id number] [place] [address]- 0307 Sep, [facility] [place] [facility] [address] [id number] [place] [address]- 9936 Sep, [facility] [address] [id number] [place] 2023 Aug, [facility] [address] [id number] [place] [address]- 8418 Aug, [facility] [address] [id number] [place] 1670 Aug, [facility] [address] [id number] [place] [address]- 1390 Aug, [facility] [address] [id number] [place] [address]- 9842 Aug, [facility] [address] [id number] [place] [address]- 3939 Aug, [facility] [place] [facility] [address] [id number] [place] [address]- 7498 Aug, [facility] [address] [id number] [place] [address]- 2717 Aug, [facility] [place] [facility] [address] [id number] [place] [address]- 5445 Aug, [facility] [place] [facility] [address] [id number] [place] [address]- 7979 Aug, [facility] [place] [facility] [address] [id number] [place] [address]- 9458 Aug, [facility] [place] [facility] [address] [id number] [place] [address]- 2681 Aug, [facility] [place] [facility] [address] [id number] [place] [address]- 7006 Jul, [facility] [place] [facility] [address] [id number] [place] [address]- 6595 Jul, [facility] [place] [facility] [address] [id number] [place] [address]- 2850 Jul, [facility] [place] [facility] [address] [id number] [place] [address]- 4947 Jul, [facility] [place] [facility] [address] [id number] [place] [address]- 2876 Jul, [facility] [place] [facility] [address] [id number] [place] [address]- 2078 Jul, [facility] [place] [facility] [address] [id number] [place] [address]- 4232 Jul, [facility] [place] [facility] [address] [id number] [place] [address]- 6595 Jul, [facility] [place] [facility] [address] [id number] [place] [address]- 2319 Jul, [facility] [place] [facility] [address] [id number] [place] [address]- 0334 Jul, [facility] [place] [facility] [address] [id number] [place] [address]- 9105 Jun, [facility] [place] [facility] [address] [id number] [place] [address]- 6769 Jun, [facility] [place] [facility] [address] [id number] [place] [address]- 5393 Jun, [facility] [place] [facility] [address] [id number] [place] [address]- 1269 Jun, [facility] [place] [facility] [address] [id number] [place] [address]- 4855 Jun, [facility] [place] [facility] [address] [id number] [place] [address]- 3349 Jun, [facility] [place] [facility] [address] [id number] [place] [address]- 3529 15 Jun, 2014 [facility] [place] [facility] [address] [id number] [place] [address]- 4018 15 Jun, 2014 [facility] [place] [facility] [address] [id number] [place] [address]- 2163 22 May, 2014 [facility] [place] [facility] [address] [id number] [place] [address]- 7247 22 May, 2013 [facility] [place] [facility] [address] [id number] [place] [address]- 1649 18 May, 2013 [facility] [place] [facility] [address] [id number] [place] [address]- 3812 18 May, 2014 [facility] [place] [facility] [address] [id number] [place] [address]- 4227 09 May, 2014 [facility] [place] [facility] [address] [id number] [place] [address]- 8515 08 May, 2014 [facility] [place] [facility] [address] [id number] [place] [address]- 0541 May, [facility] [place] [facility] [address] [id number] [place] [address]- 7902 May, [facility] [place] [facility] [address] [id number] [place] [address]- 5659 Apr, [facility] [place] [facility] [address] [id number] [place] [address]- 4630 Apr, [facility] [place] [facility] [address] [id number] [place] [address]- 7362 Apr, [facility] [place] [facility] [address] [id number] [place] [address]- 1176 Apr, [facility] [place] [facility] [address] [id number] [place] [address]- 9149 Mar, [facility] [place] [facility] [address] [id number] [place] [address]- 9680 Mar, [facility] [place] [facility] [address] [id number] [place] [address]- 1222 Mar, [facility] [place] [facility] [address] [id number] [place] [address]- 7745 Mar, [facility] [place] [facility] [address] [id number] [place] [address]- 8219 Mar, [facility] [place] [facility] [address] [id number] [place] [address]- 2989 Mar, [facility] [place] [facility] [address] [id number] [place] [address]- 2166 Jan, [facility] [place] [facility] [address] [id number] [place] [address]- 6614 Jan, [facility] [place] [facility] [address] [id number] [place] [address]- 5309 Jan, [facility] [place] [facility] [address] [id number] [place] [address]- 6050 Jan, [facility] [place] [facility] [address] [id number] [place] [address]- 4212 Jan, [facility] [place] [facility] [address] [id number] [place] [address]- 6064 Jan, [facility] [place] [facility] [address] [id number] [place] [address]- 7921 Jan, [facility] [place] [facility] [address] [id number] [place] [address]- 3654 Jan, [facility] [place] [facility] [address] [id number] [place] [address]- 3713 Jan, [facility] [place] [facility] [address] [id number] [place] [address]- 8891 Jan, [facility] [place] [facility] [address] [id number] [place] [address]- 9819 Jan, [facility] [place] [facility] [address] [id number] [place] [address]- 3156 Jan, [facility] [place] [facility] [address] [id number] [place] [address]- 3411 December, [facility] [place] [facility] [address] [id number] [place] [address]- 6260 December, [facility] [place] [facility] [address] [id number] [place]298 December, [facility] [place] [facility] [address] [id number] [place] [address]- 3138 December, [facility] [place] [facility] [address] [id number] [place] [address]- 5220 Dec, [facility] [place] [facility] [address] [id number] [place] [address]- 4751 Dec, [facility] [place] [facility] [address] [id number] [place] [address]- 7983 Dec, [facility] [place] [facility] [address] [id number] [place] [address]- 9830 Dec, [facility] [place] [facility] [address] [id number] [place] [address]- 0726 Dec, [facility] [place] [facility] [address] [id number] [place] [address]- 1533 Dec, [facility] [place] [facility] [address] [id number] [place] [address]- 2684 Dec, [facility] [place] [facility] [address] [id number] [place] [address]- 2872 Dec, [facility] [place] [facility] [address] [id number] [place] [address]- 9546 Dec, [facility] [place] [facility] [address] [id number] [place] [address]- 9681 Dec, [facility] [place] [facility] [address] [id number] [place] [address]- 5510 Dec, [facility] [place] [facility] [address] [id number] [place] [address]- 9266 Dec, [facility] [place] [facility] [address] [id number] [place] [address]- 4636 Dec, [facility] [place] [facility] [address] [id number] [place] [address]- 4306 Dec, [facility] [place] [facility] [address] [id number] [place] [address]- 0733 Oct, [facility] [place] [facility] [address] [id number] [place] [address]- 1433 Oct, [facility] [place] [facility] [address] [id number] [place] [address]- 5475 Oct, [facility] [place] [facility] [address] [id number] [place] [address]- 1935 Oct, [facility] [place] [facility] [address] [id number] [place] [address]- 6547 Oct, [facility] [place] [facility] [address] [id number] [place] [address]- 6748 Oct, [facility] [place] [facility] [address] [facility] [id number] [place] [address] Oct, [facility] [place] [facility] [address] [id number] [place] [address]- 8426 Oct, [facility] [place] [facility] [address] [id number] [place] [address]- 4276 Oct, [facility] [place] [facility] [address] [id number] [place] [address]- 7846 Oct, [facility] [place] [facility] [address] [id number] [place] [address]- 8686 Sep, [facility] [place] [facility] [address] [id number] [place] [address]- 0036 Sep, [facility] [place] [facility] [address] [id number] [place] [address]- 2026 Sep, [facility] [id number] [address]- 0164 Sep, [facility] [id number] [address]- 4352 Sep, [facility] [id number] [address]- 9753 Sep, [facility] [id number] [address]- 8712 Aug, [facility] [id number] [address]- 0605 Aug, [facility] [id number] [address]- 9827 Jul, [facility] [id number] [address]- 9513 Jul, [facility] [id number] [address]- 3703 Jul, [facility] [address] [id number] [address]- 4696 Jul, [facility] [id number] [address]- 8508 Jul, IMMUNIZATIONS No Known Immunizations SOCIAL HISTORY Never Assessed REASON FOR VISIT SUBAB F/U PLAN OF CARE Activity Details Follow Up 4 Weeks Reason: VITAL SIGNS MEDICATIONS Unknown Medications RESULTS No Results PROCEDURES Procedure Date Ordered Result Body Site Psychotherapy, patient &/family, 30 minutes, established patient Jul 23, 2018 INSTRUCTIONS MEDICATIONS ADMINISTERED No Known Medications MEDICAL (GENERAL) HISTORY Type Description Date Medical History Type 1 Diabetes mellitus Medical History hx of hypertension Medical History gastroparesis Medical History hx of renal insufficiency 09/2014 Medical History Unspecified renal failure Medical History Gastroparesis due to DM Medical History Opiod Addiction Hx Surgical History oral surgery at age 16 Hospitalization History Gastroperisis 2011
--- OUTSIDE RECORDS SUMMARY | 2018-08-30 20:21 | XMS REPORT ---
Author NOEMY Osborne [facility] Address [address] [place] [address] Care Team Providers Care Election Clerk Name Role Phone NOEMY MORGAN Unavailable PROBLEMS ALLERGIES No Information ENCOUNTERS IMMUNIZATIONS No Known Immunizations SOCIAL HISTORY No smoking Hx information available REASON FOR VISIT PLAN OF CARE VITAL SIGNS MEDICATIONS Unknown Medications RESULTS No Results PROCEDURES No Known procedures INSTRUCTIONS MEDICATIONS ADMINISTERED No Known Medications MEDICAL (GENERAL) HISTORY
--- OUTSIDE RECORDS SUMMARY | 2018-08-30 20:21 | XMS REPORT ---
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 Active 17553239 Problem Chronic kidney disease, stage 3 N18.3 Active 660435210 Problem CHI I (cervical intraepithelial neoplasia I) N87.0 Active 113414194 Problem Mild episode of recurrent major depressive disorder F33.0 Active 591606547 Problem Addiction to drug F19.20 Active 550849775 Problem Essential hypertension I10 Active 22339398 Problem Opioid use disorder, severe, in sustained remission F11.21 Active 49664419 Problem Irritable bowel syndrome with constipation K58.1 Active [id number] ALLERGIES No Information ENCOUNTERS Encounter Location Date Diagnosis [facility] [id number] [address] 14 Jul, 2018 Opioid use disorder, moderate, dependence F11.20 and Opioid use disorder, severe, 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 [facility] [id number] [address] 18 Jun, 2018 Opioid use disorder, severe, 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 [facility] [id number] [address] 7[address] Jun, [facility] [id number] [address] May, Opioid use disorder, severe, 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 [facility] [address] [address] May, [facility] [id number] [place] [address] 93655- 6336 May, [facility] [id number] [place] [address] 88746- 3084 May, Opioid use disorder, severe, 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 [facility] [address] [place] [address] May, Opioid use disorder, severe, in sustained remission F11.21 [facility] [id number] [place] [address] 55928- 9002 Apr, [facility] [id number] [place] [address] 18141- 7988 Apr, [facility] [id number] [place] [address] 78728- 8056 Apr, [facility] [id number] [place] [address] 62620- 7791 Apr, Opioid use disorder, severe, 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 [facility] [id number] [place] [address] 38324 -9070 Apr, Bacterial conjunctivitis of left eye H10.9 [facility] [id number] [place] [address] 74329- 7766 Apr, [facility] [id number] [place] [address] 66400- 0580 Apr, [facility] [id number] [place] [address] 32827- 5497 Mar, Essential hypertension I10 and Irritable bowel syndrome with constipation K58.1 [facility] [id number] [place] [address] 62442- 4033 Mar, [facility] [id number] [place] [address] 55141- 1700 Mar, Chronic kidney disease, stage 3 N18.3 ; 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 ; Opioid use disorder, severe, in sustained remission F11.21 and Mixed hyperlipidemia E78.2 [facility] [id number] [place] [address] 94010- 4360 Mar, Mixed hyperlipidemia E78.2 [facility] [id number] [place] [address] 96830- 3677 Mar, Opioid use disorder, severe, 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 [facility] [id number] [place] [address] 87215- 4218 Mar, [facility] [address] [place] [address] Mar, Opioid use disorder, severe, in sustained remission F11.21 [facility] [id number] [place] [address] 04020- 8427 Jan, Opioid use disorder, severe, 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 [facility] [id number] [place] [address] 61842- 3898 December, Opioid use disorder, severe, 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 [facility] [address] [place] [address] December, Opioid use disorder, severe, in sustained remission F11.21 [facility] [id number] [place] [address] 73996- 7631 December, Opioid use disorder, severe, in sustained remission F11.21 and 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 [facility] [id number] [place] [address] 89830- 3510 December, Opioid use disorder, severe, 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 [facility] [address] [place] [address] Dec, Opioid use disorder, severe, in sustained remission F11.21 [facility] [id number] [place] [address] 46942- 9921 Dec, 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 ; Unprotected sexual intercourse Z72.51 ; Pain of left thumb M79.645 ; Mixed hyperlipidemia E78.2 ; Gastroparesis K31.84 ; Essential hypertension I10 and Irritable bowel syndrome with constipation K58.1 [facility] [id number] [place] [address] 43867 2546 Dec, Opioid use disorder, severe, 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 [facility] [id number] [place] [address] 60778 2546 Oct, [facility] [id number] [place] [address] 95823 2546 Oct, Opioid use disorder, severe, 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 [facility] [id number] [place] [address] 98446 2546 Oct, [facility] [id number] [place] [address] 70122 2546 Oct, Opioid use disorder, severe, 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 [facility] [id number] [place] [address] 18726- 2516 Oct, [facility] [id number] [place] [address] 68754 2546 Oct, [facility] [address] [place] [address] Oct, Opioid use disorder, severe, in sustained remission F11.21 [facility] [id number] [place] [address] 79248 2546 Sep, [facility] [id number] [place] [address] 81595 2546 Sep, [facility] [id number] [place] [address] 56184 2546 Sep, Opioid use disorder, severe, 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 [facility] [id number] [place] [address] 48262- 9810 Aug, Opioid use disorder, severe, 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 [facility] [id number] [place] [address] 04426- 8449 Jul, [facility] [id number] [place] [address] 64891- 7869 Jul, Chronic kidney disease, stage 3 N18.3 ; Dysthymia F34.1 and Opioid use disorder, severe, in sustained remission F11.21 [facility] [address] [place] [address] Jul, Opioid use disorder, severe, in sustained remission F11.21 [facility] [id number] [place] [address] 32763- 5696 Jul, Long-term use of high-risk medication Z79.899 and Chronic kidney disease, stage 3 N18.3 [facility] [id number] [place] [address] 25726- 0837 Jul, Opioid use disorder, severe, 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 [facility] [id number] [place] [address] 78953- 2248 Jul, [facility] [address] 16948- 3507 Jun, [facility] [id number] [place] [address] 80504- 4704 Jun, [facility] [id number] [place] [address] 22099- 1699 Jun, Opioid use disorder, moderate, dependence F11.20 and Opioid use disorder, severe, 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 [facility] [id number] [place] [address] 09313- 8365 Jun, [facility] [id number] [place] [address] 36158- 8362 Jun, Long-term use of high-risk medication Z79.899 [facility] [address] [place] [address]- 5242 04 Jun, 2017 CHI I (cervical intraepithelial neoplasia I) N87.0 [facility] [id number] [place] [address] 23694- 7273 May, Opioid use disorder, severe, 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 [facility] [id number] [place] [address] 44807- 6870 18 May, 2017 Chronic kidney disease, stage 3 N18.3 [facility] [id number] [place] [address] 81132- 6586 14 May, 2017 Chronic kidney disease, stage 3 N18.3 [facility] [address] [place] [address] 05 May, 2017 Opioid use disorder, severe, in sustained remission F11.21 [facility] [id number] [place] [address] 11005- 6762 Apr, LGSIL on Pap smear of cervix R87.612 [facility] [address] [place] [address] Apr, [facility] [id number] [place] [address] 01840- 8076 Apr, Opioid use disorder, severe, 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 [facility] [id number] [place] [address] 86791- 8805 Apr, Opioid use disorder, severe, 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 [facility] [id number] [place] [address] 33786- 8465 Apr, Opioid use disorder, severe, 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 [facility] [id number] [place] [address] 78790- 2556 Apr, Opioid use disorder, severe, 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 [facility] [id number] [place] [address] 11393- 1442 Apr, 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 [facility] [id number] [place] [address] 15043- 1840 Apr, Opioid use disorder, severe, 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 [facility] [address] [place] [address] Apr, Opioid use disorder, severe, in sustained remission F11.21 [facility] [id number] [place] [address] 69364- 5796 Apr, Opioid use disorder, severe, 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 [facility] [id number] [place] [address] 16259- 2655 Apr, Mild episode of recurrent major depressive disorder F33.0 and Right acute serous otitis media, recurrence not specified H65.01 [facility] [id number] [place] [address] 21738- 1428 Mar, [facility] [id number] [place] [address] 80674- 0122 Mar, Opioid use disorder, severe, 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 [facility] [id number] [place] [address] 45178- 9820 Mar, [facility] [address] [place] [address] Mar, Opioid use disorder, severe, in sustained remission F11.21 [facility] [address] [place] [address] Mar, Opioid use disorder, severe, in sustained remission F11.21 [facility] [id number] [place] [address] 60299- 8553 Mar, Opioid use disorder, severe, 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 [facility] [id number] [place] [address] 08738- 1809 Jan, Opioid use disorder, severe, 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 [facility] [address] [place] [address] Jan, Opioid use disorder, severe, in sustained remission F11.21 [facility] [address] [place] [address] Jan, Opioid use disorder, severe, in sustained remission F11.21 [facility] [id number] [place] [address] 29534- 8005 Jan, Opioid use disorder, severe, 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 [facility] [address] [place] [address] Jan, Opioid use disorder, severe, in sustained remission F11.21 [id number] [place] [address] 04586- 8059 December, Opioid use disorder, severe, 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 [facility] [address] [place] [address] December, Opioid use disorder, severe, in sustained remission F11.[address] 91493- 3536 December, Routine gynecological examination Z01.419 and Chronic kidney disease, stage 3 N18.3 [id number] [place] [address] 43899- 8701 December, Chronic kidney disease, stage 3 N18.3 ; 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 ; Gastroparesis K31.84 ; Essential hypertension I10 and Irritable bowel syndrome with constipation K58.1 [facility] [address] [place] [address] December, Opioid use disorder, severe, in sustained remission F11.21 [id number] [place] [address] 37338- 5407 December, Opioid use disorder, severe, 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 [facility] [address] [place] [address] December, Opioid use disorder, severe, in sustained remission F11.21 [id number] [place] [address] 56216- 7647 December, Encounter for therapeutic drug level monitoring Z51.81 [facility] [address] [place] [address] December, Opioid use disorder, severe, in sustained remission F11.21 [facility] [address] [place] [address] Dec, Opioid use disorder, severe, in sustained remission F11.21 [facility] [id number] [place] [address] 91953- 5420 Dec, Opioid use disorder, severe, 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 [facility] [id number] [place] [address] 59045- 7843 Dec, [facility] [address] [place] [address] Dec, Opioid use disorder, severe, in sustained remission F11.21 [facility] [id number] [place] [address] 133731- 8092 Dec, Opioid use disorder, severe, 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 [facility] [address] [place] [address] Dec, Opioid use disorder, severe, in sustained remission F11.21 [facility] [id number] [place] [address] 60047- 0675 Dec, 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 [facility] [id number] [place] [address] 46765- 4505 Dec, Opioid use disorder, severe, in sustained remission F11.21 ; Encounter for therapeutic drug level monitoring Z51.81 and 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 [facility] [address] [place] [address] Oct, Opioid use disorder, severe, in sustained remission F11.21 [facility] [id number] [place] [address] 42735- 8252 Oct, Opioid use disorder, severe, 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 [facility] [id number] [place] [address] 31418- 8976 Oct, [facility] [address] [place] [address] Oct, Opioid use disorder, severe, in sustained remission F11.21 [facility] [id number] [place] [address] 94433- 3827 15 Oct, 2016 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 [address] 26769- 4035 14 Oct, 2016 Routine gynecological examination Z01.419 [id number] [place] [address] 40496- 3312 07 Oct, 2016 Opioid use disorder, severe, 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 [address] [id number] [place] [address] 44522- 3776 06 Oct, 2016 Opioid use disorder, severe, 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 [address] 63976- 0562 06 Oct, 2016 Opioid use disorder, severe, 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 [facility] [address] [place] [address] Oct, Opioid use disorder, severe, in sustained remission F11.21 [address] [place] [id number] [place] [address] 92121- 5178 24 Oct, 2016 Opioid use disorder, severe, 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 [id number] [place] [address] 91992- 0824 23 Oct, 2016 Opioid use disorder, severe, 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 [facility] [address] [place] [address] Oct, Opioid use disorder, severe, in sustained remission F11.21 [id number] [place] [address] 77557- 2078 20 Oct, 2016 Opioid use disorder, severe, in sustained remission F11.21 ; Encounter for therapeutic drug level monitoring Z51.81 and 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 [id number] [place] [address] 41867- 1787 16 Oct, 2016 [facility] [address] [place] [address] 14 Oct, 2016 Opioid use disorder, severe, 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 [facility] [address] [place] [address] 10 Oct, 2016 Opioid use disorder, severe, 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 [facility] [id number] [place] [address] 86987- 2448 09 Oct, 2016 Opioid use disorder, severe, 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 [facility] [id number] [place] [address] 81197- 0102 08 Oct, 2016 [facility] [id number] [place] [address] 66349- 9188 Oct, [facility] [id number] [place] [address] 67542- 0122 Oct, [facility] [address] [place] [address] Oct, Opioid use disorder, severe, 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 [facility] [id number] [place] [address] 30763- 8672 Sep, Opioid use disorder, severe, 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 [facility] [address] [place] [address] Sep, Opioid use disorder, severe, 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 [facility] [id number] [place] [address] 46909- 3666 Sep, Opioid use disorder, severe, 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 ; Other fci (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 Z79.899 and Encounter for therapeutic drug level monitoring Z51.81 [facility] [address] [address]- 7826 Sep, [facility] [id number] [place] [address] 91419- 0563 Sep, [facility] [id number] [place] [address] 46398- 3898 Sep, Opioid use disorder, severe, 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 ; 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 ; Chronic kidney disease, stage 3 N18.3 ; Essential hypertension I10 and Irritable bowel syndrome with constipation K58.1 [facility] [address] 249972[address] Sep, Opioid use disorder, severe, 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 [facility] [address] [place] [address] Sep, Opioid use disorder, severe, 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 [facility] [address] [place] [address] 45271 158 Sep, Opioid use disorder, moderate, dependence F11.[address] 930191- 3767 Sep, Opioid use disorder, moderate, dependence F11.20 [facility] [address] [place] [address] Sep, Opioid use disorder, severe, 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 39870- 1258 Sep, Opioid use disorder, severe, 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 [facility] [address] [place] [address] Aug, Opioid use disorder, severe, 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 [facility] [address] [place] [address] 54675- 2565 Aug, Opioid use disorder, moderate, dependence F11.20 [facility] [address] [address] Aug, Bug bite without infection, initial encounter W57.XXXA [address] 32458- 9612 Aug, Opioid use disorder, moderate, dependence F11.20 [facility] [address] [place] [address] Aug, [facility] [address] [place] [address] 70809- 2221 Aug, Opioid use disorder, severe, 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 ; Other fci (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 Z79.899 ; Encounter for therapeutic drug level monitoring Z51.81 and 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 [facility] [address] [place] [address] 15 Aug, 2016 [facility] [id number] [place] [address] 98401- 1320 15 Aug, 2016 Opioid use disorder, moderate, dependence F11.20 ; Other fci (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 Z79.899 and Encounter for therapeutic drug level monitoring Z51.81 [facility] [id number] [place] [address] 23821- 4646 13 Aug, 2016 [facility] [id number] [place] [address] 706511- 5229 Aug, Non-intractable vomiting with nausea, unspecified vomiting type R11.2 [facility] [id number] [place] [address] 53899- 2078 Aug, Opioid use disorder, moderate, dependence F11.20 and Non- intractable vomiting with nausea, unspecified vomiting type R11.2 [facility] [id number] [place] [address] 28045- 8547 Aug, [facility] [id number] [place] [address] 19511- 6674 Aug, Opioid use disorder, moderate, dependence F11.20 [facility] [id number] [place] [address] 75175- 1370 Aug, [facility] [id number] [place] [address] 18676- 3323 Jul, 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 and Opioid use disorder, moderate, dependence F11.20 [facility] [address] [place] [address] Jul, [facility] [id number] [place] [address] [phone] Jul, [facility] [id number] [place] [address] [phone] Jul, [facility] [address] [address] Jul, Addiction to drug F19.20 and Chronic kidney disease, stage 3 N18.3 [facility] [address] [place] [address] Jul, Counseling on substance use and abuse Z71.89 [place] [address] 20447- 6649 Jul, Chronic kidney disease, stage 3 N18.3 [place] [address] 53122- 7547 Jul, 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 ; Diarrhea, unspecified type R19.7 and Essential hypertension I10 [place] [address] 63527- 1454 Jul, [facility] [address] 65158- 1502 Jun, [place] [address] 67155- 7474 Jun, [place] [address] 51577- 5268 Apr, 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 [place] [address] [place] [id number] [place] [address] 07604- 4623 Apr, Sore throat and laryngitis J06.0 and Non-intractable vomiting with nausea, unspecified vomiting type R11.2 [place] [address] 11381- 4640 Apr, [facility] [address] 78134- 7901 Mar, [place] [address] 01183- 6621 Jan, [facility] [id number] [place] [address] 20667- 7312 14 Feb, 2016 [facility] [id number] [place] [address] 11545- 9263 Jan, [facility] [id number] [place] [address] 27086- 6908 December, 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 ; Gastroparesis K31.84 ; Mixed hyperlipidemia E78.2 ; Chronic kidney disease, stage 3 N18.3 ; Dysthymia F34.1 and Acute bilateral low back pain without sciatica M54.5 [place] [address] [place] [id number] [place] [address] 08886- 5731 December, [facility] [id number] [place] [address] 88553- 6976 December, [facility] [id number] [place] [address] 56967- 0918 Aug, Depression F32.9 and Gastroparesis K31.84 [facility] [id number] [place] [address] 08080- 0591 Aug, Gastroparesis K31.84 [facility] [id number] [place] [address] 73606- 9349 Jul, Recurrent UTI N39.0 ; Chronic kidney disease, stage 3 N18.3 and 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 [facility] [id number] [place] [address] 75987- 8412 Jul, [facility] [id number] [place] [address] [id number] Jul, 2015 Dental examination Z01.20 and Dental caries K02.9 [facility] [id number] [place] [address] 34861- 2260 17 Jul, 2015 [facility] [id number] [place] [address] 66442 -4095 Jul, Dysuria R30.0 ; Urinary tract infection N39.0 and Nausea R11.0 [facility] [id number] [place] [address] 16166- 8159 Jun, Dysuria R30.0 [facility] [id number] [place] [address] 14306- 2592 Jun, Dysuria R30.0 [facility] [id number] [place] [address] 41863- 9026 Jun, Dysuria R30.0 [facility] [id number] [place] [address] 61782- 6145 Jun, [facility] [id number] [place] [address] 64842- 9950 Jun, Acute cystitis with hematuria N30.01 [facility] [id number] [place] [address] 17893- 6375 May, [facility] [id number] [place] [address] 73553- 4010 Apr, Diabetes mellitus without mention of complication, type I [ juvenile type], not stated as uncontrolled 250.01 ; Gastroparesis due to DM 250.60 ; Contraception management V25.9 and Renal insufficiency 593.9 [facility] [id number] [place] [address] 67541- 9427 Apr, [facility] [id number] [place] [address] 52581- 8417 Apr, [facility] [id number] [place] [address] 83107- 0838 Mar, [facility] [id number] [place] [address] 12839- 5160 Mar, Hyperlipidemia 272.4 and Hypertensive heart and chronic kidney disease, benign, without heart failure and with chronic kidney disease stage I through stage IV, or unspecified 404.10 [facility] [address] [place] [id number] [place] [address] 12087- 9587 Mar, Hyperlipidemia 272.4 ; Hyponatremia 276.1 ; 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 ; Hypertensive heart and chronic kidney disease, benign, without heart failure and with chronic kidney disease stage I through stage IV, or unspecified 404.10 ; Proteinuria 791.0 and Chronic kidney disease (CKD), stage III (moderate) 585.3 [place] [address] [place] [id number] [place] [address] 68491- 3857 Mar, [place] [address] [place] [address] [id number] [place] [address] 06247- 4652 Mar, Elevated blood sugar level 790.29 [place] [id number] [place] [address] 12069- 7670 Mar, Low grade squamous intraepithelial lesion (LGSIL) on cervical Pap smear 795.03 [place] [id number] [place] [address] 17437- 5895 Mar, Amenorrhea 626.0 [place] [address] [place] [id number] [place] [address] 73673- 5906 Jan, Amenorrhea 626.0 ; Routine gynecological examination V72.31 and Screen for STD (sexually transmitted disease) V74.5 [place] [id number] [place] [address] 52357- 2933 Jan, Amenorrhea 626.0 [place] [address] [place] [id number] [place] [address] 51970- 0166 08 Jan, 2015 Routine gynecological examination V72.31 ; Screen for STD ( sexually transmitted disease) V74.5 ; Pap test, as part of routine gynecological examination V76.2 ; Breast cancer screening V76.10 and Amenorrhea 626.0 [place] [address] [place] [address] 04025- 6102 December, [place] [id number] [place] [address] 90897- 5054 Dec, [place] [id number] [place] [address] 2546 Dec, [facility] [place] [facility] [address] [id number] [place] [address]- 6320 Oct, [facility] [place] [facility] [address] [id number] [place] [address] 2546 Oct, [facility] [place] [facility] [address] [id number] [place] [address]- 7446 Oct, [facility] [place] [facility] [address] [id number] [place] [address] 2541 Oct, [facility] [place] [facility] [address] [id number] [place] [address]- 4007 Oct, [facility] [place] [facility] [address] [id number] [place] [address]- 0316 Oct, [facility] [place] [facility] [address] [id number] [place] [address]- 8586 Oct, [facility] [place] [facility] [address] [id number] [place] [address]- 4828 Oct, [facility] [place] [facility] [address] [id number] [place] [address]- 1833 Oct, [facility] [place] [facility] [address] [id number] [place] [address]- 1343 Oct, [facility] [place] [facility] [address] [id number] [place] [address]- 0797 Oct, [facility] [place] [facility] [address] [id number] [place] [address]- 8779 Sep, [facility] [place] [facility] [address] [id number] [place] [address]- 1526 Sep, [facility] [place] [facility] [address] [id number] [place] [address]- 2546 Sep, [facility] [place] [facility] [address] [id number] [place] [address]- 5925 Sep, [facility] [place] [facility] [address] [id number] [place] [address]- 2709 Sep, [facility] [place] [facility] [address] [id number] [place] [address]- 7221 Sep, [facility] [place] [facility] [address] [id number] [place] [address]- 2976 Sep, [facility] [place] [facility] [address] [id number] [place] [address]- 4909 Sep, [facility] [place] [facility] [address] [id number] [place] [address]- 5339 Sep, [facility] [place] [facility] [address] [id number] [place] [address]- 4072 Sep, [facility] [place] [facility] [address] [id number] [place] [address]- 1859 Sep, [facility] [place] [facility] [address] [id number] [address]- 5634 Sep, [facility] [place] [facility] [address] [id number] [place] [address]- 4995 Sep, [facility] [place] [facility] [address] [id number] [place] [address]- 4783 Sep, [facility] [place] [facility] [address] [id number] [address]- 5756 Sep, [facility] [place] [facility] [address] [id number] [address]- 7086 Sep, [facility] [place] [facility] [address] [id number] [address]- 4290 Sep, [facility] [place] [facility] [address] [id number] [address]- 6366 Sep, [facility] [place] [facility] [address] [id number] [address]- 0619 Sep, [facility] [place] [facility] [address] [id number] [place] [address]- 8588 Sep, [facility] [place] [facility] [address] [id number] [place] 7124 Aug, [facility] [place] [facility] [address] [id number] [place] 0166 Aug, [facility] [place] [facility] [address] [id number] [place] [address]- 9625 Aug, [facility] [place] [facility] [address] [id number] [place] [address]- 9240 Aug, [facility] [place] [facility] [address] [id number] [place] 5201 Aug, [facility] [place] [facility] [address] [id number] [place] [address]- 5956 Aug, [facility] [place] [facility] [address] [id number] [place] [address]- 8522 Aug, [facility] [place] [facility] [address] [id number] [place] [address]- 2542 Aug, [facility] [place] [facility] [address] [id number] [place] [address]- 2627 Aug, [facility] [place] [facility] [address] [facility] [id number] [place] [address]- 0114 Aug, [facility] [place] [facility] [address] [id number] [place] [address]- 0388 Aug, [facility] [place] [facility] [address] [id number] [place] [address]- 0157 Aug, [facility] [place] [facility] [address] [id number] [place] [address]- 1455 Jul, [facility] [place] [facility] [address] [id number] [place] [address]- 4402 Jul, [facility] [place] [facility] [address] [id number] [place] [address]- 1338 Jul, [facility] [place] [facility] [address] [id number] [place] [address]- 4897 Jul, [facility] [place] [facility] [address] [id number] [place] [address]- 6900 Jul, [facility] [place] [facility] [address] [id number] [place] [address]- 1661 Jul, [facility] [place] [facility] [address] [id number] [place] [address]- 7737 Jul, [facility] [place] [facility] [address] [id number] [place] [address]- 1866 Jul, [facility] [place] [facility] [address] [id number] [place] [address]- 8701 Jul, [facility] [place] [facility] [address] [id number] [place] [address]- 9486 Jul, [facility] [place] [facility] [address] [id number] [place] [address]- 6781 Jun, [facility] [place] [facility] [address] [id number] [place] [address]- 3771 Jun, [facility] [place] [facility] [address] [id number] [place] [address]- 8918 30 Jun, 2014 [facility] [place] [facility] [address] [id number] [place] [address]- 2526 30 Jun, 2014 [facility] [place] [facility] [address] [id number] [place] [address]- 5168 30 Jun, 2014 [facility] [place] [facility] [address] [id number] [place] [address]- 8437 30 Jun, 2014 [facility] [place] [facility] [address] [id number] [place] [address]- 2403 15 Jun, 2014 [facility] [place] [facility] [address] [id number] [place] [address]- 1781 15 Jun, 2014 [facility] [place] [facility] [address] [id number] [place] [address]- 8305 May, [facility] [place] [facility] [address] [id number] [place] [address]- 2510 May, [facility] [place] [facility] [address] [id number] [place] [address]- 7704 May, [facility] [place] [facility] [address] [id number] [place] [address]- 5343 May, [facility] [place] [facility] [address] [id number] [place] [address]- 4911 May, [facility] [place] [facility] [address] [id number] [place] [address]- 6349 May, [facility] [place] [facility] [address] [id number] [place] [address]- 0261 May, [facility] [place] [facility] [address] [id number] [place] [address]- 5460 May, [facility] [place] [facility] [address] [id number] [place] [address]- 8793 Apr, [facility] [place] [facility] [address] [id number] [place] [address]- 7749 Apr, [facility] [place] [facility] [address] [id number] [place] [address]- 4306 Apr, [facility] [place] [facility] [address] [id number] [place] [address]- 4564 Apr, [facility] [place] [facility] [address] [id number] [place] [address]- 1600 Mar, [facility] [place] [facility] [address] [id number] [place] [address]- 6568 Mar, [facility] [place] [facility] [address] [id number] [place] [address]- 7735 Mar, [facility] [place] [facility] [address] [id number] [place] [address]- 1891 Mar, [facility] [place] [facility] [address] [id number] [place] [address]- 7791 Mar, [facility] [place] [facility] [address] [id number] [place] [address]- 0736 Mar, [facility] [place] [facility] [address] [id number] [place] [address]- 1407 Jan, [facility] [place] [facility] [address] [id number] [place] [address]- 3606 Jan, [facility] [place] [facility] [address] [id number] [place] [address]- 5627 Jan, [facility] [place] [facility] [address] [id number] [place] [address]- 5033 Jan, [facility] [place] [facility] [address] [id number] [place] [address]- 1499 Jan, [facility] [place] [facility] [address] [id number] [place] [address]- 8704 Jan, [facility] [place] [facility] [address] [id number] [place] [address]- 6185 Jan, [facility] [place] [facility] [address] [id number] [place] [address]- 3188 Jan, [facility] [place] [facility] [address] [id number] [place] [address]- 3014 Jan, [facility] [place] [facility] [address] [id number] [place] [address]- 8031 Jan, [facility] [place] [facility] [address] [id number] [place] [address]- 3933 Jan, [facility] [place] [facility] [address] [id number] [place] [address]- 4924 Jan, [facility] [place] [facility] [address] [id number] [place] [address]- 3553 December, [facility] [place] [facility] [address] [id number] [place] [address]- 9919 December, [facility] [place] [facility] [address] [id number] [place] [address]- 9768 December, [facility] [place] [facility] [address] [id number] [place] [address]- 9287 December, [facility] [place] [facility] [address] [id number] [place] [address]- 1258 Dec, [facility] [place] [facility] [address] [id number] [place] [address]- 5871 Dec, [facility] [place] [facility] [address] [id number] [place] [address]- 1298 Dec, [facility] [place] [facility] [address] [id number] [place] [address]- 1508 Dec, [facility] [place] [facility] [address] [id number] [place] [address]- 8035 Dec, [facility] [place] [facility] [address] [id number] [place] [address]- 1455 Dec, [facility] [place] [facility] [address] [id number] [place] [address]- 9723 Dec, [facility] [place] [facility] [address] [id number] [place] [address]- 9614 Dec, [facility] [place] [facility] [address] [id number] [place] [address]- 3897 Dec, [facility] [place] [facility] [address] [id number] [address]- 4727 Dec, [facility] [place] [facility] [address] [id number] [place] [address]- 6449 Dec, [facility] [place] [facility] [address] [id number] [place] [address]- 5949 Dec, [facility] [place] [facility] [address] [id number] [place] [address]- 9679 Dec, [facility] [place] [facility] [address] [id number] [address]- 9214 Dec, [facility] [place] [facility] [address] [id number] [place] [address]- 7087 Oct, [facility] [place] [facility] [address] [facility] [id number] [place] [address]- 1210 Oct, [facility] [place] [facility] [address] [id number] [place] [address]- 2728 Oct, [facility] [place] [facility] [address] [id number] [place] [address]- 3209 Oct, [facility] [place] [facility] [address] [id number] [place] [address]- 0999 Oct, [facility] [place] [facility] [address] [id number] [place] 2254 Oct, [facility] [id number] [place] [id number] Oct, [facility] [place] [facility] [address] [id number] [place] [address]- 6597 Oct, [facility] [place] [facility] [address] [id number] [place] [address]- 9463 Oct, [facility] [place] [facility] [address] [id number] [place] [address]- 3793 Oct, [facility] [place] [facility] [address] [id number] [place] [address]- 0636 Sep, [facility] [place] [facility] [address] [id number] [place] [address]- 3945 Sep, [facility] [place] [facility] [address] [id number] [place] [address]- 9976 Sep, [facility] [place] [facility] [address] [id number] [place] [address]- 2992 Sep, [facility] [place] [facility] [address] [id number] [place] [address]- 9044 Sep, [facility] [place] [facility] [address] [id number] [address]- 7606 Sep, [facility] [address] [id number] [address]- 9571 Aug, [facility] [address]65[address] [address]- 6800 Aug, [facility] [address]00565[address] [address]- 5857 Jul, [facility] [address]00565[address] [address]- 5239 Jul, [facility] [address]00565[address] [address]- 3675 Jul, [facility] [address]00565100[place] [address]- 7206 Jul, [facility] [address] [id number] [address]- 3213 Jul, IMMUNIZATIONS No Known Immunizations SOCIAL HISTORY Never Assessed REASON FOR VISIT suboxone rx (07/17-08/13) PLAN OF CARE VITAL SIGNS MEDICATIONS Medication [...]
--- OUTSIDE RECORDS SUMMARY | 2018-08-30 20:22 | XMS REPORT ---
Author NOEMY [facility] Address [address] [place] [address] Care Team Providers Care Freight Forwarder Name Role Phone NOEMY MORGAN Unavailable PROBLEMS ALLERGIES No Information ENCOUNTERS IMMUNIZATIONS No Known Immunizations SOCIAL HISTORY No smoking Hx information available REASON FOR VISIT PLAN OF CARE VITAL SIGNS MEDICATIONS RESULTS No Results PROCEDURES No Known procedures INSTRUCTIONS MEDICATIONS ADMINISTERED No Known Medications MEDICAL (GENERAL) HISTORY
--- OUTSIDE RECORDS SUMMARY | 2018-08-30 20:23 | XMS REPORT ---
Author Author NOEMY MORGAN Organization [facility] Address [address] 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 Active 03851381 Problem Chronic kidney disease, stage 3 N18.3 Active 999967273 Problem CHI I (cervical intraepithelial neoplasia I) N87.0 Active 941336054 Problem Mild episode of recurrent major depressive disorder F33.0 Active 092217344 Problem Addiction to drug F19.20 Active 738134299 Problem Essential hypertension I10 Active 71898680 Problem Opioid use disorder, severe, in sustained remission F11.21 Active 93637371 Problem Irritable bowel syndrome with constipation K58.1 Active [id number] ALLERGIES No Information ENCOUNTERS Encounter Location Date Diagnosis [facility] [id number] [place] [address] 70348- 6478 26 May, 2018 Opioid use disorder, severe, 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 [facility] [id number] [place] [address] 02422- 0878 24 May, 2018 [facility] [id number] [place] [address] 45534- 9217 May, [facility] [id number] [place] [address] 13037- 1939 May, Opioid use disorder, severe, 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 [facility] [address] [place] [address] May, Opioid use disorder, severe, in sustained remission F11.21 [facility] [id number] [place] [address] 53375- 4418 Apr, [facility] [id number] [place] [address] 11914- 0139 Apr, [facility] [id number] [place] [address] 45640- 8952 Apr, [facility] [id number] [place] [address] 80688- 7131 Apr, Opioid use disorder, severe, 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 [facility] [address] 7[address]99 [address]7827 Apr, Bacterial conjunctivitis of left eye H10.9 [facility] [id number] [place] [address] 56126- 1621 Apr, [facility] [id number] [place] [address] 45534- 5338 Apr, [facility] [id number] [place] [address] 61360- 5397 Mar, Essential hypertension I10 and Irritable bowel syndrome with constipation K58.1 [facility] [id number] [place] [address] 51795- 6625 Mar, [facility] [id number] [place] [address] 26492- 5713 Mar, Chronic kidney disease, stage 3 N18.3 ; 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 ; Opioid use disorder, severe, in sustained remission F11.21 and Mixed hyperlipidemia E78.2 [facility] [id number] [place] [address] 07081- 4853 Mar, Mixed hyperlipidemia E78.2 [facility] [id number] [place] [address] 36100- 5526 Mar, Opioid use disorder, severe, 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 [facility] [address] [place] [address] 71385- 1311 Mar, [facility] [address] [place] [address] Mar, Opioid use disorder, severe, in sustained remission F11.21 [facility] [address] [place] [address] 95451- 3126 Jan, Opioid use disorder, severe, 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 [facility] [id number] [place] [address] 54432- 0908 December, Opioid use disorder, severe, 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 [facility] [address] [place] [address] December, Opioid use disorder, severe, in sustained remission F11.21 [facility] [id number] [place] [address] 24006- 2650 December, Opioid use disorder, severe, in sustained remission F11.21 and 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 [facility] [id number] [place] [address] 96723- 2486 December, Opioid use disorder, severe, 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 [facility] [address] [place] [address] Dec, Opioid use disorder, severe, in sustained remission F11.21 [facility] [address] [place] [id number] [place] [address] 92612- 5616 Dec, 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 ; Unprotected sexual intercourse Z72.51 ; Pain of left thumb M79.645 ; Mixed hyperlipidemia E78.2 ; Gastroparesis K31.84 ; Essential hypertension I10 and Irritable bowel syndrome with constipation K58.1 [facility] [address] [place] [address] 80304- 4405 Dec, Opioid use disorder, severe, 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 [facility] [id number] [place] [address] 28798- 4635 Oct, [facility] [address] [address] 9309 Oct, Opioid use disorder, severe, 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 [facility] [address] [address] 6166 Oct, [facility] [id number] [place] [address] 20071- 7086 Oct, Opioid use disorder, severe, 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 [facility] [address] [address] 0856 Oct, [facility] [id number] [place] [address] 34070- 2816 Oct, [facility] [address] [place] [address] Oct, Opioid use disorder, severe, in sustained remission F11.21 [facility] [address] [address] 3110 Sep, [facility] [address] [place] [address] 10192- 2880 Sep, [facility] [id number] [place] [address] 59838- 8909 Sep, Opioid use disorder, severe, 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 [facility] [address] [address] 0221 Aug, Opioid use disorder, severe, 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 [facility] [address] [address] 2742 Jul, [facility] [id number] [place] [address] 17562- 7661 Jul, Chronic kidney disease, stage 3 N18.3 ; Dysthymia F34.1 and Opioid use disorder, severe, in sustained remission F11.21 [facility] [address] [place] [address] Jul, Opioid use disorder, severe, in sustained remission F11.21 [facility] [address] [place] [address] 06902- 0977 Jul, Long-term use of high-risk medication Z79.899 and Chronic kidney disease, stage 3 N18.3 [facility] [id number] [place] [address] 43593- 3134 Jul, Opioid use disorder, severe, 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 [facility] [id number] [place] [address] 64965- 4347 Jul, [place] [facility] [id number] [place] [address] 64087- 8936 Jun, [facility] [id number] [place] [address] 56205- 3741 Jun, [facility] [id number] [place] [address] 10424- 7558 Jun, Opioid use disorder, moderate, dependence F11.20 and Opioid use disorder, severe, 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 [place] [facility] [id number] [place] [address] 47356- 7638 Jun, [facility] [id number] [place] [address] 89107- 1019 Jun, Long-term use of high-risk medication Z79.899 [place] [facility] [id number] [place] [address] 47299- 1459 Jun, CHI I (cervical intraepithelial neoplasia I) N87.0 [facility] [id number] [place] [address] 77277- 0464 May, Opioid use disorder, severe, 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 [facility] [id number] [place] [address] 49764- 6839 18 May, 2017 Chronic kidney disease, stage 3 N18.3 [facility] [id number] [place] [address] 29331- 9219 14 May, 2017 Chronic kidney disease, stage 3 N18.3 [facility] [address] [place] [address] 05 May, 2017 Opioid use disorder, severe, in sustained remission F11.21 [facility] [id number] [place] [address] 71547- 1261 Apr, LGSIL on Pap smear of cervix R87.612 [facility] [address] [place] [address] Apr, [facility] [id number] [place] [address] 42274- 1302 Apr, Opioid use disorder, severe, 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 [facility] [id number] [place] [address] 97303- 3735 Apr, Opioid use disorder, severe, 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 [facility] [id number] [place] [address] 50221- 9432 Apr, Opioid use disorder, severe, 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 [facility] [id number] [place] [address] 22372- 6235 18 Apr, 2017 Opioid use disorder, severe, 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 [facility] [id number] [place] [address] 95358- 3919 14 Apr, 2017 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 [facility] [id number] [place] [address] 79701- 6925 Apr, Opioid use disorder, severe, 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 [facility] [address] [place] [address] Apr, Opioid use disorder, severe, in sustained remission F11.21 [facility] [id number] [place] [address] 08002- 0306 09 Apr, 2017 Opioid use disorder, severe, 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 [facility] [id number] [place] [address] 34665- 0841 Apr, Mild episode of recurrent major depressive disorder F33.0 and Right acute serous otitis media, recurrence not specified H65.01 [facility] [id number] [place] [address] 62680- 2226 Mar, [facility] [id number] [place] [address] 94108- 0986 Mar, Opioid use disorder, severe, 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 [facility] [id number] [place] [address] 35879- 0001 Mar, [facility] [address] [place] [address] Mar, Opioid use disorder, severe, in sustained remission F11.21 [facility] [address] [place] [address] Mar, Opioid use disorder, severe, in sustained remission F11.21 [facility] [id number] [place] [address] 84199- 6124 Mar, Opioid use disorder, severe, 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 [facility] [id number] [place] [address] 97017- 5346 Jan, Opioid use disorder, severe, 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 [facility] [address] [place] [address] Jan, Opioid use disorder, severe, in sustained remission F11.21 [facility] [address] [place] [address] Jan, Opioid use disorder, severe, in sustained remission F11.21 [facility] [id number] [place] [address] 72401- 5626 Jan, Opioid use disorder, severe, 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 [facility] [address] [place] [address] Jan, Opioid use disorder, severe, in sustained remission F11.21 [facility] [id number] [place] [address] 09268- 3554 December, Opioid use disorder, severe, 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 [facility] [address] [place] [address] December, Opioid use disorder, severe, in sustained remission F11.21 [facility] [id number] [place] [address] 65953- 9766 December, Routine gynecological examination Z01.419 and Chronic kidney disease, stage [address] 15377- 9715 December, Chronic kidney disease, stage 3 N18.3 ; 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 ; Gastroparesis K31.84 ; Essential hypertension I10 and Irritable bowel syndrome with constipation K58.1 [facility] [address] [place] [address] December, Opioid use disorder, severe, in sustained remission F11.[address] 57364- 3839 December, Opioid use disorder, severe, 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 [facility] [address] [place] [address] December, Opioid use disorder, severe, in sustained remission F11.[address] 52022- 0033 December, Encounter for therapeutic drug level monitoring Z51.81 [facility] [address] [place] [address] December, Opioid use disorder, severe, in sustained remission F11.21 [facility] [address] [place] [address] Dec, Opioid use disorder, severe, in sustained remission F11.21 [facility] [address] [place] [id number] [place] [address] 08984- 3761 Dec, Opioid use disorder, severe, 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 [facility] [address] [place] [id number] [place] [address] 75102- 6276 Dec, [facility] [address] [place] [address] Dec, Opioid use disorder, severe, in sustained remission F11.21 [facility] [id number] [place] [address] 23294- 8172 Dec, Opioid use disorder, severe, 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 [facility] [address] [place] [address] 06 Dec, 2016 Opioid use disorder, severe, in sustained remission F11.21 [facility] [id number] [place] [address] 59636- 0499 Dec, 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 [facility] [id number] [place] [address] 88719- 4000 Dec, Opioid use disorder, severe, in sustained remission F11.21 ; Encounter for therapeutic drug level monitoring Z51.81 and 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 [facility] [address] [place] [address] 31 Oct, 2016 Opioid use disorder, severe, in sustained remission F11.21 [facility] [id number] [place] [address] 13994- 5292 23 Oct, 2016 Opioid use disorder, severe, 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 [facility] [id number] [place] [address] 89278- 5538 15 Oct, 2016 [facility] [address] [place] [address] Oct, Opioid use disorder, severe, in sustained remission F11.21 [facility] [id number] [place] [address] 46555- 1271 15 Oct, 2016 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 [facility] [id number] [place] [address] 89615- 7375 14 Oct, 2016 Routine gynecological examination Z01.419 [facility] [id number] [place] [address] 63791- 5606 07 Oct, 2016 Opioid use disorder, severe, 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 [facility] [id number] [place] [address] 26308- 4135 Oct, Opioid use disorder, severe, 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 [facility] [id number] [place] [address] 74682- 7471 Oct, Opioid use disorder, severe, 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 [facility] [address] [place] [address] Oct, Opioid use disorder, severe, in sustained remission F11.21 [facility] [id number] [place] [address] 50831- 2570 Oct, Opioid use disorder, severe, 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 [place] [facility] [address] 88360- 7398 23 Oct, 2016 Opioid use disorder, severe, 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 [facility] [address] [place] [address] Oct, Opioid use disorder, severe, in sustained remission F11.21 [facility] [id number] [place] [address] 32944- 0879 20 Oct, 2016 Opioid use disorder, severe, in sustained remission F11.21 ; Encounter for therapeutic drug level monitoring Z51.81 and 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 [facility] [id number] [place] [address] 72492- 9522 16 Oct, 2016 [facility] [address] [place] [address] 14 Oct, 2016 Opioid use disorder, severe, 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 [facility] [address] [place] [address] 10 Oct, 2016 Opioid use disorder, severe, 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 [facility] [id number] [place] [address] 60880- 5896 Sep, Opioid use disorder, severe, 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 [facility] [address] [place] [address] Sep, Opioid use disorder, severe, 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 [facility] [id number] [place] [address] 28912- 7411 Sep, Opioid use disorder, severe, 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 ; 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 and Encounter for therapeutic drug level monitoring Z51.81 [facility] [id number] [place] [address] 94443- 0716 Sep, [facility] [id number] [place] [address] 65604- 9695 Sep, [facility] [address] [place] [address] 66643- 3323 Sep, Opioid use disorder, severe, 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 ; 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 ; Chronic kidney disease, stage 3 N18.3 ; Essential hypertension I10 and Irritable bowel syndrome with constipation K58.1 [facility] [address] [place] [address] Sep, Opioid use disorder, severe, 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 [facility] [address] [place] [address] Sep, Opioid use disorder, severe, 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 [facility] [id number] [place] [address] 77917- 2881 Sep, Opioid use disorder, moderate, dependence F11.20 [facility] [address] [place] [address] 54418- 0459 Sep, Opioid use disorder, moderate, dependence F11.20 [facility] [address] [place] [address] Sep, Opioid use disorder, severe, 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 [place] [address]- 7363 Sep, Opioid use disorder, severe, 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 [facility] [address] [place] [address] Aug, Opioid use disorder, severe, in early remission F11.[address] 05938- 9637 Aug, Opioid use disorder, moderate, dependence F11.20 [facility] [address] [place] [address] 51958 -9921 Aug, Bug bite without infection, initial encounter W57.XXXA [address] 27964- 7335 Aug, Opioid use disorder, moderate, dependence F11.20 [facility] [address] [place] [address] Aug, [address] 61604- 7372 Aug, Opioid use disorder, severe, 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 ; Other halfway (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 Z79.899 ; Encounter for therapeutic drug level monitoring Z51.81 and 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 [facility] [address] [place] [address] Aug, [facility] [address] [place] [address] 65191- 4859 Aug, Opioid use disorder, moderate, dependence F11.20 ; Other halfway (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 Z79.899 and Encounter for therapeutic drug level monitoring Z51.81 [facility] [id number] [place] [address] 27180- 5535 Aug, [facility] [id number] [place] [address] 75204- 2983 Aug, Non-intractable vomiting with nausea, unspecified vomiting type R11.2 [facility] [id number] [place] [address] 67604- 2780 Aug, Opioid use disorder, moderate, dependence F11.20 and Non- intractable vomiting with nausea, unspecified vomiting type R11.2 [facility] [id number] [place] [address] 09174- 7246 Aug, [facility] [id number] [place] [address] 19306- 2413 Aug, Opioid use disorder, moderate, dependence F11.20 [facility] [id number] [place] [address] 29696- 5971 Aug, [facility] [id number] [place] [address] 73651- 8234 Jul, 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 and Opioid use disorder, moderate, dependence F11.20 [facility] [address] [place] [address] Jul, [facility] [id number] [place] [address] 51668- 3169 Jul, [facility] [id number] [place] [address] 98637- 0247 Jul, [facility] [id number] [place] [address] 29271- 9056 Jul, Addiction to drug F19.20 and Chronic kidney disease, stage 3 N18.3 [facility] [address] [place] [address] 17 Jul, 2016 Counseling on substance use and abuse Z71.89 [facility] [id number] [place] [address] 93090- 0971 Jul, Chronic kidney disease, stage 3 N18.3 [facility] [address] [place] [address] 61665- 0603 Jul, 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 ; Diarrhea, unspecified type R19.7 and Essential hypertension I10 [facility] [id number] [place] [address] 72235- 7813 Jul, [facility] [id number] [place] [address] 66120- 4308 Jun, [facility] [id number] [place], [place] [address] 88128- 2872 Jun, [facility] [id number] [place] [address] 04641- 7357 Apr, 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 [facility] [id number] [place] [address] 53430- 2584 Apr, Sore throat and laryngitis J06.0 and Non-intractable vomiting with nausea, unspecified vomiting type R11.2 [facility] [id number] [place] [address] 51982- 6415 Apr, [facility] [id number] [place] [address] 47980- 5510 Mar, [facility] [id number] [place] [address] 36249- 8085 Jan, [facility] [id number] [place] [address] 01492- 4879 Jan, [facility] [id number] [place] [address] 67886- 1438 Jan, [facility] [id number] [place] [address] 08730- 7257 December, 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 ; Gastroparesis K31.84 ; Mixed hyperlipidemia E78.2 ; Chronic kidney disease, stage 3 N18.3 ; Dysthymia F34.1 and Acute bilateral low back pain without sciatica M54.5 [facility] [address] 30307- 2592 December, [facility] [address] 80875- 5399 December, [facility] [address] 57818- 2979 Aug, Depression F32.9 and Gastroparesis K31.84 [facility] [address] 29543- 6664 Aug, Gastroparesis K31.84 [place] [address] 71752- 2686 Jul, Recurrent UTI N39.0 ; Chronic kidney disease, stage 3 N18.3 and 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 [facility] [address] 35384- 7298 Jul, [facility] [address] [id number] Jul, Dental examination Z01.20 and Dental caries K02.9 [place] [id number] [place] [address] 63635- 2671 17 Jul, 2015 [facility] [id number] [place] [address] 08369 -5752 Jul, Dysuria R30.0 ; Urinary tract infection N39.0 and Nausea R11.0 [facility] [id number] [place] [address] 55198- 9025 Jun, Dysuria R30.0 [facility] [address] 70271- 8433 Jun, Dysuria R30.0 [place] [address] 22207- 6020 Jun, Dysuria R30.0 [id number] [place] [address] 86246- 3389 Jun, [id number] [place] [address] 57951- 8612 Jun, Acute cystitis with hematuria N30.01 [id number] [place] [address] 60350- 7448 May, [id number] [place] [address] 58787- 3986 Apr, Diabetes mellitus without mention of complication, type I [ juvenile type], not stated as uncontrolled 250.01 ; Gastroparesis due to DM 250.60 ; Contraception management V25.9 and Renal insufficiency 593.9 [id number] [place] [address] 61545- 5982 Apr, [id number] [place] [address] 60771- 7654 Apr, [id number] [place] [address] 40221- 5286 Mar, [id number] [place] [address] 53713- 1830 Mar, Hyperlipidemia 272.4 and Hypertensive heart and chronic kidney disease, benign, without heart failure and with chronic kidney disease stage I through stage IV, or unspecified 404.10 [id number] [place] [address] 14720- 5605 Mar, Hyperlipidemia 272.4 ; Hyponatremia 276.1 ; 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 ; Hypertensive heart and chronic kidney disease, benign, without heart failure and with chronic kidney disease stage I through stage IV, or unspecified 404.10 ; Proteinuria 791.0 and Chronic kidney disease (CKD), stage III (moderate) 585.3 [id number] [place] [address] 07235- 5120 Mar, [id number] [address]- 0876 Mar, Elevated blood sugar level 790.29 [facility] [id number] [place] [address] 98114- 3395 Mar, Low grade squamous intraepithelial lesion (LGSIL) on cervical Pap smear 795.03 [place] [address] [address] 2300 Mar, Amenorrhea 626.0 [facility] [id number] [place] [address] 27292- 6201 15 Jan, 2015 Amenorrhea 626.0 ; Routine gynecological examination V72.31 and Screen for STD (sexually transmitted disease) V74.5 [place] [address], [place] [address]- 8551 Jan, Amenorrhea 626.0 [place] [id number] [place] [address] 02500- 6833 08 Jan, 2015 Routine gynecological examination V72.31 ; Screen for STD ( sexually transmitted disease) V74.5 ; Pap test, as part of routine gynecological examination V76.2 ; Breast cancer screening V76.10 and Amenorrhea 626.0 [place] [address] [address], [place] [address]- 6683 December, [place] [address] [address] [address]- 3255 Dec, [place] [address] [address], [place] [address]- 1635 Dec, [facility] [address], [place] [address]- 3246 30 Oct, 2014 [facility] [id number] [place] [address] 33689- 5860 Oct, [facility] [address], [place] [address]- 1557 Oct, [facility] [id number] [place] [address]- 1031 Oct, [facility] [place] [facility] [address] [id number] [place] [address]- 6705 Oct, [facility] [place] [facility] [address] [id number] [place] [address]- 1392 Oct, [facility] [place] [facility] [address] [id number] [place] [address]- 2739 Oct, [facility] [place] [facility] [address] [id number] [place] [address]- 8246 Oct, [facility] [place] [facility] [address] [id number] [place] [address]- 7832 Oct, [facility] [place] [facility] [address] [id number] [place] [address]- 1564 Oct, [facility] [place] [facility] [address] [id number] [place] [address]- 5570 Oct, [facility] [place] [facility] [address] [id number] [place] [address]- 9260 Sep, [facility] [place] [facility] [address] [id number] [place] [address]- 7903 Sep, [facility] [place] [facility] [address] [id number] [place] [address]- 0122 Sep, [facility] [place] [facility] [address] [id number] [place] [address]- 2196 Sep, [facility] [place] [facility] [address] [id number] [place] [address]- 5695 Sep, [facility] [place] [facility] [address] [id number] [place] [address]- 1775 Sep, [facility] [place] [facility] [address] [id number] [place] [address]- 1053 Sep, [facility] [place] [facility] [address] [id number] [place] [address]- 8332 Sep, [facility] [place] [facility] [address] [id number] [place] [address]- 8253 15 Sep, 2014 [facility] [place] [facility] [address] [id number] [place] [address]- 7325 Sep, [facility] [place] [facility] [address] [id number] [place] [address]- 8401 Sep, [facility] [place] [facility] [address] [id number] [place] [address]- 0372 Sep, [facility] [place] [facility] [address] [id number] [place] [address]- 9651 Sep, [facility] [place] [facility] [address] [id number] [place] [address]- 2992 Sep, [facility] [place] [facility] [address] [id number] [place] [address]- 0342 Sep, [facility] [place] [facility] [address] [id number] [place] [address]- 3842 Sep, [facility] [place] [facility] [address] [id number] [place] [address]- 1536 Sep, [facility] [place] [facility] [address] [id number] [place] [address]- 6647 Sep, [facility] [place] [facility] [address] [id number] [place] [address]- 7658 Sep, [facility] [place] [facility] [address] [id number] [address]- 1790 Sep, [facility] [place] [facility] [address] [id number] [place] [address]- 4668 Aug, [facility] [place] [facility] [address] [id number] [place] [address]- 9816 Aug, [facility] [place] [facility] [address] [id number], [place] [address]- 8643 Aug, [facility] [place] [facility] [address] [id number], [place] [address]- 6862 09 Aug, 2014 [facility] [place] [facility] [address] [id number] [place] [address]- 9193 08 Aug, 2014 [facility] [place] [facility] [address] [id number] [place] [address]- 0367 07 Aug, 2014 [facility] [place] [facility] [address] [facility] [id number] [place] [address]- 9799 Aug, [facility] [place] [facility] [address] [id number] [place] [address]- 0720 04 Aug, 2014 [facility] [place] [facility] [address] [id number] [place] [address]- 3934 Aug, [facility] [place] [facility] [address] [id number] [place] [address]- 9316 Aug, [facility] [place] [facility] [address] [facility] [id number] [place] [address]- 9857 Aug, [facility] [place] [facility] [address] [id number] [place] [address]- 7662 Aug, [facility] [place] [facility] [address] [id number] [place] [address]- 7922 Jul, [facility] [place] [facility] [address] [facility] [id number] [place] [address]- 6560 Jul, [facility] [place] [facility] [address] [id number] [place] [address]- 0649 Jul, [facility] [place] [facility] [address] [id number] [address]- 4062 Jul, [facility] [place] [facility] [address] [id number] [place] [address]- 2713 17 Jul, 2014 [facility] [place] [facility] [address] [id number] [place] [address]- 7149 17 Jul, 2014 [facility] [place] [facility] [address] [facility] [id number] [place] [address]- 9381 Jul, [facility] [place] [facility] [address] [id number] [place] [address]- 7119 Jul, [facility] [place] [facility] [address] [id number] [place] [address]- 6557 Jul, [facility] [place] [facility] [address] [id number] [place] 1783 Jul, [facility] [place] [facility] [address] [id number] [place]- 1271 Jun, [facility] [place] [facility] [address] [id number] [place] [address]- 7774 Jun, [facility] [place] [facility] [address] [id number] [place] [address]- 1016 Jun, [facility] [place] [facility] [address] [id number] [place] [address]- 5359 Jun, [facility] [place] [facility] [address] [id number] [place] [address]- 7923 Jun, [facility] [place] [facility] [address] [id number] [place] [address]- 7416 30 Jun, 2014 [facility] [place] [facility] [address] [id number] [place] [address]- 4320 Jun, [facility] [place] [facility] [address] [id number] [place] [address]- 5489 15 Jun, 2014 [facility] [place] [facility] [address] [id number] [place] [address]- 7917 22 May, 2014 [facility] [place] [facility] [address] [id number] [place] [address]- 9345 22 May, 2014 [facility] [place] [facility] [address] [id number] [place] [address]- 2549 18 May, 2014 [facility] [place] [facility] [address] [id number] [place] [address]- 0585 18 May, 2013 [facility] [place] [facility] [address] [id number] [place] [address]- 8252 May, [facility] [place] [facility] [address] [id number] [place] [address]- 6713 May, [facility] [place] [facility] [address] [id number] [place] [address]- 2265 May, [facility] [place] [facility] [address] [id number] [place] [address]- 8608 May, [facility] [place] [facility] [address] [id number] [place] [address]- 2830 Apr, [facility] [place] [facility] [address] [id number] [place] [address]- 7852 Apr, [facility] [place] [facility] [address] [id number] [place] [address]- 1020 Apr, [facility] [place] [facility] [address] [id number] [place] [address]- 4643 Apr, [facility] [place] [facility] [address] [id number] [place] [address]- 3543 Mar, [facility] [place] [facility] [address] [id number] [place] [address]- 1325 Mar, [facility] [place] [facility] [address] [id number] [place] [address]- 9055 Mar, [facility] [place] [facility] [address] [id number] [place] [address]- 2521 Mar, [facility] [place] [facility] [address] [id number] [place] [address]- 0456 Mar, [facility] [place] [facility] [address] [id number] [place] [address]- 7601 Mar, [facility] [place] [facility] [address] [id number] [place] [address]- 6961 Jan, [facility] [place] [facility] [address] [id number] [place] [address]- 1368 Jan, [facility] [place] [facility] [address] [id number] [place] [address]- 6555 Jan, [facility] [place] [facility] [address] [id number] [place] [address]- 2167 Jan, [facility] [place] [facility] [address] [id number] [place] [address]- 2662 Jan, [facility] [place] [facility] [address] [id number] [place] [address]- 6199 Jan, [facility] [place] [facility] [address] [id number] [place] [address]- 7295 Jan, [facility] [place] [facility] [address] [id number] [place] [address]- 5026 Jan, [facility] [place] [facility] [address] [id number] [place] [address]- 8558 Jan, [facility] [place] [facility] [address] [id number] [place] [address]- 4128 Jan, [facility] [place] [facility] [address] [id number] [place] [address]- 2589 Jan, [facility] [place] [facility] [address] [id number] [place] [address]- 1212 Jan, [facility] [place] [facility] [address] [id number] [place] [address]- 7032 December, [facility] [place] [facility] [address] [id number] [place] [address]- 9417 December, [facility] [place] [facility] [address] [id number] [place] [address]- 5538 December, [facility] [place] [facility] [address] [id number] [place] [address]- 9826 December, [facility] [place] [facility] [address] [id number] [place] [address]- 0253 Dec, [facility] [place] [facility] [address] [id number] [place] [address]- 2518 Dec, [facility] [place] [facility] [address] [id number] [place] [address]- 4060 Dec, [facility] [place] [facility] [address] [id number] [place] [address]- 7953 Dec, [facility] [place] [facility] [address] [id number] [place] [address]- 2091 Dec, [facility] [place] [facility] [address] [id number] [place] [address]- 7328 Dec, [facility] [place] [facility] [address] [id number] [place] [address]- 4633 Dec, [facility] [place] [facility] [address] [id number] [place] [address]- 0166 Dec, [facility] [place] [facility] [address] [id number] [place] [address]- 3556 Dec, [facility] [place] [facility] [address] [id number] [place] [address]- 4923 Dec, [facility] [place] [facility] [address] [id number] [place] [address]- 8192 Dec, [facility] [place] [facility] [address] [id number] [place] [address]- 7436 Dec, [facility] [place] [facility] [address] [id number] [place] [address]- 3199 Dec, [facility] [place] [facility] [address] [id number] [place] [address]- 2261 Dec, [facility] [place] [facility] [address] [id number] [place] [address]- 6938 Oct, [facility] [place] [facility] [address] [id number] [place] [address]- 4487 Oct, [facility] [place] [facility] [address] [id number] [place] [address]- 5772 Oct, [facility] [place] [facility] [address] [id number] [place] [address]- 1926 29 Oct, 2013 [facility] [address] [id number] [place] [address]- 1530 Oct, [facility] [place] [facility] [address] [id number] [place] [address]- 5646 Oct, [facility] [place] [facility] [address] [id number] [place] Oct, [facility] [place] [facility] [address] [id number] [place] [address]- 7865 Oct, [facility] [address] [id number] [place] [address]- 1058 Oct, [facility] [address] [id number] [place] [address]- 0742 Oct, [facility] [address] [id number] [place] [address]- 7726 Sep, [facility] [place] [facility] [address] [id number] [place] [address]- 1434 Sep, [facility] [address] [id number] [place] [address]- 8415 Sep, [facility] [place] [facility] [address] [id number] [place] [address]- 3415 Sep, [facility] [address] [id number] [place] [address]- 1741 Sep, [facility] [place] [facility] [address] [id number], [place] [address]- 7662 Sep, [facility] [place] [facility] [address] [id number] [place] [address]- 7495 Aug, [facility] [place] [facility] [address] [id number] [place] [address]- 5066 Aug, [facility] [place] [facility] [address] [id number] [place] [address]- 2546 Jul, [facility] [place] [facility] [address] [facility] [id number] [place] [address]- 6641 Jul, [facility] [address] [facility] [id number], [place] [address]- 4501 Jul, [facility] [address] [facility] [id number], [place] [address]- 9882 Jul, [facility] [address] [facility] [id number], [place] [address]- 0829 Jul, IMMUNIZATIONS No Known Immunizations SOCIAL HISTORY Never Assessed REASON FOR VISIT upload request PLAN OF CARE VITAL SIGNS MEDICATIONS Unknown [...]
--- OUTSIDE RECORDS SUMMARY | 2018-08-30 20:23 | XMS REPORT ---
Author Author NOEMY MORGAN Organization [facility] Address [address] 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 Active 77139836 Problem Chronic kidney disease, stage 3 N18.3 Active 874217646 Problem CHI I (cervical intraepithelial neoplasia I) N87.0 Active 727304606 Problem Mild episode of recurrent major depressive disorder F33.0 Active 613909858 Problem Addiction to drug F19.20 Active 467802175 Problem Essential hypertension I10 Active 84364705 Problem Opioid use disorder, severe, in sustained remission F11.21 Active 39380011 Problem Irritable bowel syndrome with constipation K58.1 Active 591045161 ALLERGIES No Information ENCOUNTERS Encounter Location Date Diagnosis [facility] [id number] [place] [address] 95150- 4287 May, Opioid use disorder, severe, in early remission F11.21 [facility] [id number] [place] [address] 88973- 9375 24 May, 2018 [facility] [id number] [place] [address] 22630- 0386 May, [facility] [id number] [place] [address] 59489- 8682 May, Opioid use disorder, severe, in early remission F11.21 [facility] [address] [place] [address] May, Opioid use disorder, severe, in sustained remission F11.21 [facility] [id number] [place] [address] 48657- 8206 Apr, [facility] [id number] [place] [address] 70802- 0779 Apr, [facility] [id number] [place] [address] 77178- 4024 Apr, [facility] [id number] [place] [address] 02837- 8335 Apr, Opioid use disorder, severe, in early remission F11.21 [facility] [address] [address] Apr, Bacterial conjunctivitis of left eye H10.9 [facility] [id number] [place] [address] 06616- 8153 Apr, [facility] [id number] [place] [address] 88240- 3051 Apr, [facility] [id number] [place] [address] 60318- 8928 Mar, Essential hypertension I10 and Irritable bowel syndrome with constipation K58.1 [facility] [id number] [place] [address] 35695- 3732 Mar, [facility] [id number] [place] [address] 82447- 9674 Mar, Chronic kidney disease, stage 3 N18.3 ; 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 ; Opioid use disorder, severe, in sustained remission F11.21 and Mixed hyperlipidemia E78.2 [facility] [id number] [place] [address] 28263- 3297 Mar, Mixed hyperlipidemia E78.2 [facility] [id number] [place] [address] 59469- 6925 Mar, Opioid use disorder, severe, 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 [facility] [address] [place] [address] 67178- 9682 Mar, [facility] [address] [place] [address] Mar, Opioid use disorder, severe, in sustained remission F11.21 [facility] [id number] [place] [address] 87483- 8159 Jan, Opioid use disorder, severe, 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 [facility] [id number] [place] [address] 35080- 1746 December, Opioid use disorder, severe, in early remission F11.21 [facility] [address] [place] [address] December, Opioid use disorder, severe, in sustained remission F11.21 [facility] [id number] [place] [address] 55888- 6943 December, Opioid use disorder, severe, in sustained remission F11.21 and 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 [facility] [id number] [place] [address] 79768- 4482 December, Opioid use disorder, severe, in early remission F11.21 [facility] [address] [place] [address] Dec, Opioid use disorder, severe, in sustained remission F11.21 [facility] [address] [place] [id number] [place] [address] 27344- 7949 Dec, 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 [address], [place] [address] 0107 Oct, Opioid use disorder, severe, in early remission F11.21 [facility] [address] [address] 8[address] Oct, [facility] [address] [place] [address] 02142- 2056 Oct, Opioid use disorder, severe, in early remission F11.21 [facility] [address], [place] [address] 2073 Oct, [facility] [id number] [place] [address] 50080- 3949 Oct, [facility] [address] [place] [address] Oct, Opioid use disorder, severe, in sustained remission F11.21 [facility] [address], [place] [address] 1145 Sep, [facility] [address] [place] [address] 75182- 1073 Sep, [facility] [id number] [place] [address] 97856- 7987 Sep, Opioid use disorder, severe, in early remission F11.21 [facility] [address] [place] [address]- 1783 Aug, Opioid use disorder, severe, 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 [facility] [address], [place] [address]- 6105 Jul, [facility] [id number] [place] [address] 21384- 5382 Jul, Chronic kidney disease, stage 3 N18.3 ; Dysthymia F34.1 and Opioid use disorder, severe, in sustained remission F11.21 [facility] [address] [place] [address] Jul, Opioid use disorder, severe, in sustained remission F11.21 [facility] [address] [place] [address] 92150- 3573 Jul, Long-term use of high-risk medication Z79.899 and Chronic kidney disease, stage 3 N18.3 [facility] [id number] [place] [address] 41961- 0529 Jul, Opioid use disorder, severe, in early remission F11.21 [facility] [id number] [place] [address] 66673- 2478 Jul, [facility] [id number] [place] [address] 27636- 9651 Jun, [facility] [id number] [place] [address] 48416- 9376 Jun, [facility] [id number] [place] [address] 99060- 2550 Jun, Opioid use disorder, moderate, dependence F11.20 and Opioid use disorder, severe, in early remission F11.21 [facility] [id number] [place] [address] 50640- 0046 Jun, [facility] [id number] [place] [address] 98104- 8038 Jun, Long-term use of high-risk medication Z79.899 [facility] [id number] [place] [address] 51989- 1308 Jun, CHI I (cervical intraepithelial neoplasia I) N87.0 [facility] [id number] [place] [address] 33299- 1776 May, Opioid use disorder, severe, in early remission F11.21 [facility] [id number] [place] [address] 98201- 5255 18 May, 2017 Chronic kidney disease, stage 3 N18.3 [facility] [id number] [place] [address] 33416- 3761 14 May, 2017 Chronic kidney disease, stage 3 N18.3 [facility] [address] [place] [address] 05 May, 2017 Opioid use disorder, severe, in sustained remission F11.21 [facility] [id number] [place] [address] 14485- 7997 Apr, LGSIL on Pap smear of cervix R87.612 [facility] [address] [place] [address] Apr, [facility] [id number] [place] [address] 24693- 4499 Apr, Opioid use disorder, severe, in early remission F11.21 [facility] [id number] [place] [address] 98910- 4965 Apr, Opioid use disorder, severe, in early remission F11.21 [facility] [id number] [place] [address] 96532- 3353 Apr, Opioid use disorder, severe, in early remission F11.21 [facility] [id number] [place] [address] 42275- 0021 18 Apr, 2017 Opioid use disorder, severe, 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 [facility] [id number] [place] [address] 51612- 3857 14 Apr, 2017 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 [facility] [id number] [place] [address] 41599- 7633 Apr, Opioid use disorder, severe, in early remission F11.21 [facility] [address] [place] [address] Apr, Opioid use disorder, severe, in sustained remission F11.21 [facility] [id number] [place] [address] 51592- 4330 09 Apr, 2017 Opioid use disorder, severe, 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 [facility] [id number] [place] [address] 64435- 5357 Jan, Opioid use disorder, severe, 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 [facility] [address] [place] [address] Jan, Opioid use disorder, severe, in sustained remission F11.21 [facility] [address] [place] [address] Jan, Opioid use disorder, severe, in sustained remission F11.21 [facility] [id number] [place] [address] 43205- 6130 Jan, Opioid use disorder, severe, 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 [facility] [address] [place] [address] Jan, Opioid use disorder, severe, in sustained remission F11.21 [facility] [id number] [place] [address] 73868- 2155 December, Opioid use disorder, severe, 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1 [facility] [address] [place] [address] December, Opioid use disorder, severe, in sustained remission F11.[address] 21871- 8854 December, Opioid use disorder, severe, in early remission F11.21 [facility] [address] [place] [address] December, Opioid use disorder, severe, in sustained remission F11.[address] 06328- 2352 December, Encounter for therapeutic drug level monitoring Z51.81 [facility] [address] [place] [address] December, Opioid use disorder, severe, in sustained remission F11.21 [facility] [address] [place] [address] Dec, Opioid use disorder, severe, in sustained remission F11.21 [facility] [address] [place] [id number] [place] [address] 30901- 7467 Dec, Opioid use disorder, severe, 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 [facility] [address] [place] [id number] [place] [address] 35284- 8034 Dec, [facility] [address] [place] [address] Dec, Opioid use disorder, severe, in sustained remission F11.21 [facility] [id number] [place] [address] 80665- 5152 Dec, Opioid use disorder, severe, in early remission F11.21 [facility] [address] [place] [address] 06 Dec, 2016 Opioid use disorder, severe, in sustained remission F11.21 [facility] [id number] [place] [address] 86174- 8057 Dec, 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 [facility] [id number] [place] [address] 54146- 0402 Dec, Opioid use disorder, severe, in sustained remission F11.21 ; Encounter for therapeutic drug level monitoring Z51.81 and 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 [facility] [address] [place] [address] 31 Oct, 2016 Opioid use disorder, severe, in sustained remission F11.21 [facility] [id number] [place] [address] 66617- 6725 23 Oct, 2016 Opioid use disorder, severe, 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 [facility] [id number] [place] [address] 52703- 5590 15 Oct, 2016 [facility] [address] [place] [address] Oct, Opioid use disorder, severe, in sustained remission F11.21 [facility] [id number] [place] [address] 59774- 5916 15 Oct, 2016 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 [facility] [id number] [place] [address] 29170- 9536 14 Oct, 2016 Routine gynecological examination Z01.419 [facility] [id number] [place] [address] 89825- 5764 07 Oct, 2016 Opioid use disorder, severe, 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 [facility] [id number] [place] [address] 66593- 8577 Oct, Opioid use disorder, severe, in early remission F11.21 [facility] [id number] [place] [address] 51886- 1631 Oct, Opioid use disorder, severe, 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 [facility] [address] [place] [address] Oct, Opioid use disorder, severe, in sustained remission F11.21 [facility] [id number] [place] [address] 02281- 1924 Oct, Opioid use disorder, severe, 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 [facility] [address] 11342- 3813 23 Oct, 2016 Opioid use disorder, severe, in early remission F11.21 [facility] [address] [place] [address] Oct, Opioid use disorder, severe, in sustained remission F11.21 [facility] [id number] [place] [address] 35170- 8610 20 Oct, 2016 Opioid use disorder, severe, in sustained remission F11.21 ; Encounter for therapeutic drug level monitoring Z51.81 and 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 [facility] [id number] [place] [address] 38302- 5702 16 Oct, 2016 [facility] [address] [place] [address] 14 Oct, 2016 Opioid use disorder, severe, in early remission F11.21 [facility] [address] [place] [address] 10 Oct, 2016 Opioid use disorder, severe, 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 [facility] [id number] [place] [address] 19122- 7672 09 Oct, 2016 Opioid use disorder, severe, in early remission F11.21 [facility] [id number] [place] [address] 79334- 0862 08 Oct, 2016 [place] [address], [place] [address]- 9767 Oct, [facility] [id number] [place] [address] 45420- 2848 Oct, [facility] [address] [place] [address] Oct, Opioid use disorder, severe, in early remission F11.21 [facility] [id number] [place] [address] 42824- 3511 Sep, Opioid use disorder, severe, in early remission F11.21 [facility] [address] [place] [address] Sep, Opioid use disorder, severe, in early remission F11.21 [facility] [id number] [place] [address] 51923- 0492 Sep, Opioid use disorder, severe, 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 ; 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 and Encounter for therapeutic drug level monitoring Z51.81 [facility] [id number] [place] [address] 04415- 1617 Sep, [facility] [id number] [place] [address] 09371- 0581 Sep, [facility] [address] [place] [address] 12987- 5400 Sep, Opioid use disorder, severe, 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 ; 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 ; Chronic kidney disease, stage 3 N18.3 ; Essential hypertension I10 and Irritable bowel syndrome with constipation K58.1 [facility] [address] [place] [address] Sep, Opioid use disorder, severe, in early remission F11.21 [facility] [address] [place] [address] Sep, Opioid use disorder, severe, in early remission F11.21 [facility] [id number] [place] [address] 52334- 6156 Sep, Opioid use disorder, moderate, dependence F11.20 [facility] [address] [place] [address] 13896- 6771 Sep, Opioid use disorder, moderate, dependence F11.20 [facility] [address] [place] [address] Sep, Opioid use disorder, severe, 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 [place] [address]70- 5483 Sep, Opioid use disorder, severe, 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 [facility] [address] [place] [address] Aug, Opioid use disorder, severe, in early remission F11.[address] 15002- 7516 Aug, Opioid use disorder, moderate, dependence F11.20 [facility] [address] [place] [address] 78712 -3370 Aug, Bug bite without infection, initial encounter W57.XXXA [address] 76378- 3303 Aug, Opioid use disorder, moderate, dependence F11.20 [facility] [address] [place] [address] Aug, [address] 14698- 9810 Aug, Opioid use disorder, severe, 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 ; Other assisted (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 Z79.899 ; Encounter for therapeutic drug level monitoring Z51.81 and 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 [facility] [address] [place] [address] Aug, [facility] [address] [place] [address] 88207- 1958 Aug, Opioid use disorder, moderate, dependence F11.20 ; Other assisted (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 Z79.899 and Encounter for therapeutic drug level monitoring Z51.81 [facility] [id number] [place] [address] 67312- 6424 Aug, [facility] [id number] [place] [address] 00120- 3607 Aug, Non-intractable vomiting with nausea, unspecified vomiting type R11.2 [facility] [id number] [place] [address] 82805- 0904 Aug, Opioid use disorder, moderate, dependence F11.20 and Non- intractable vomiting with nausea, unspecified vomiting type R11.2 [facility] [id number] [place] [address] [id number] Aug, [facility] [id number] [place] [address] [id number] Aug, Opioid use disorder, moderate, dependence F11.20 [facility] [id number] [place] [address] [id number] [id number] Aug, [facility] [id number] [place] [address] [id number] [id number] Jul, 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 and Opioid use disorder, moderate, dependence F11.20 [facility] [place] [place] [address] Jul, [facility] [id number] [place] [address] 59070- 8160 Jul, [facility] [id number] [place] [address] 61135- 2777 Jul, [facility] [id number] [place] [address] 33581- 5670 Jul, Addiction to drug F19.20 and Chronic kidney disease, stage 3 N18.3 [facility] [address] [place] [address] 17 Jul, 2016 Counseling on substance use and abuse Z71.89 [facility] [id number] [place] [address] 70977- 0253 Jul, Chronic kidney disease, stage 3 N18.3 [facility] [id number] [place] [address] 84951- 4786 Jul, 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 ; Diarrhea, unspecified type R19.7 and Essential hypertension I10 [facility] [id number] [place] [address] 47823- 1522 Jul, [facility] [id number] [place] [address] 18506- 0364 Jun, [facility] [id number] [place] [address] 55813- 2546 Jun, [facility] [id number] [place] [address] 79817- 6699 Apr, 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 [facility] [id number] [place] [address] 94776- 5495 Apr, Sore throat and laryngitis J06.0 and Non-intractable vomiting with nausea, unspecified vomiting type R11.2 [facility] [id number] [place] [address] 61846- 4457 Apr, [facility] [id number] [place] [address] 32403- 3702 Mar, [facility] [id number] [place] [address] 79746- 1240 Jan, [facility] [id number] [place] [address] 37184- 3721 Jan, [facility] [id number] [place] [address] 89583- 9711 Jan, [facility] [id number] [place] [address] 27758- 6865 December, 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 ; Gastroparesis K31.84 ; Mixed hyperlipidemia E78.2 ; Chronic kidney disease, stage 3 N18.3 ; Dysthymia F34.1 and Acute bilateral low back pain without sciatica M54.5 [facility] [address] 62641- 0341 December, [facility] [address] 94803- 7455 December, [facility] [address] 02528- 9176 Aug, Depression F32.9 and Gastroparesis K31.84 [facility] [address] 78441- 9099 Aug, Gastroparesis K31.84 [address] [address] 14504- 5898 Jul, Recurrent UTI N39.0 ; Chronic kidney disease, stage 3 N18.3 and 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 [facility] [address] 75489- 7864 Jul, [facility] [address] [id number] Jul, Dental examination Z01.20 and Dental caries K02.9 [facility] [id number] [place] [address] 71483- 6280 17 Jul, 2015 [facility] [id number] [place] [address] 11196 -2567 Jul, Dysuria R30.0 ; Urinary tract infection N39.0 and Nausea R11.0 [facility] [id number] [place] [address] 08709- 0243 Jun, Dysuria R30.0 [facility] [address] 01312- 0796 Jun, Dysuria R30.0 [address] [address] 86677- 7072 Jun, Dysuria R30.0 [id number] [place] [address] 47270- 8503 Jun, [id number] [place] [address] 78467- 9316 Jun, Acute cystitis with hematuria N30.01 [id number] [place] [address] 59442- 2218 May, [id number] [place] [address] 93018- 8223 Apr, Diabetes mellitus without mention of complication, type I [ juvenile type], not stated as uncontrolled 250.01 ; Gastroparesis due to DM 250.60 ; Contraception management V25.9 and Renal insufficiency 593.9 [id number] [place] [address] 50230- 4920 Apr, [id number] [place] [address] 39998- 9092 Apr, [id number] [place] [address] 78177- 3735 Mar, [id number] [place] [address] 60332- 9875 Mar, Hyperlipidemia 272.4 and Hypertensive heart and chronic kidney disease, benign, without heart failure and with chronic kidney disease stage I through stage IV, or unspecified 404.10 [id number] [place] [address] 79588- 9651 Mar, Hyperlipidemia 272.4 ; Hyponatremia 276.1 ; 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 ; Hypertensive heart and chronic kidney disease, benign, without heart failure and with chronic kidney disease stage I through stage IV, or unspecified 404.10 ; Proteinuria 791.0 and Chronic kidney disease (CKD), stage III (moderate) 585.3 [id number] [place] [address] 09827- 2895 Mar, [id number] [address] 8829 Mar, Elevated blood sugar level 790.29 [facility] [id number] [place] [address] 66977- 1205 Mar, Low grade squamous intraepithelial lesion (LGSIL) on cervical Pap smear 795.03 [address] [address] [address]- 1112 Mar, Amenorrhea 626.0 [facility] [id number] [place] [address] 10723- 5170 15 Jan, 2015 Amenorrhea 626.0 ; Routine gynecological examination V72.31 and Screen for STD (sexually transmitted disease) V74.5 [address] [address], [place] [address]- 6176 Jan, Amenorrhea 626.0 [address] [id number] [place] [address] 91867- 8213 08 Jan, 2015 Routine gynecological examination V72.31 ; Screen for STD ( sexually transmitted disease) V74.5 ; Pap test, as part of routine gynecological examination V76.2 ; Breast cancer screening V76.10 and Amenorrhea 626.0 [address] [place] [address], [place] [address]- 3909 December, [address], [place] [address]- 9599 Dec, [address] [address], [place] [address]- 9086 Dec, [facility] [address], [place] [address]- 0626 30 Oct, 2014 [facility] [id number] [place] [address] 89619- 8168 Oct, [facility] [address], [place] [address]- 2741 Oct, [facility] [id number] [address]- 4596 Oct, [facility] [place] [facility] [address] [id number] [place] [address]- 9209 Oct, [facility] [place] [facility] [address] [id number] [place] [address]- 0579 Oct, [facility] [place] [facility] [address] [id number] [place] [address]- 5467 Oct, [facility] [place] [facility] [address] [id number] [place] [address]- 4933 Oct, [facility] [place] [facility] [address] [id number] [place] [address]- 0424 Oct, [facility] [place] [facility] [address] [id number] [place] [address]- 9003 Oct, [facility] [place] [facility] [address] [id number] [place] [address]- 3404 Oct, [facility] [place] [facility] [address] [id number] [place] [address]- 5862 Sep, [facility] [place] [facility] [address] [id number] [place] [address]- 3451 Sep, [facility] [place] [facility] [address] [id number] [place] [address]- 7981 Sep, [facility] [place] [facility] [address] [id number] [place] [address]- 4708 Sep, [facility] [place] [facility] [address] [id number] [place] [address]- 3254 Sep, [facility] [place] [facility] [address] [id number] [place] [address]- 3593 Sep, [facility] [place] [facility] [address] [id number] [place] [address]- 7325 Sep, [facility] [place] [facility] [address] [id number] [place] [address]- 0716 Sep, [facility] [place] [facility] [address] [id number] [place] [address]- 3675 15 Sep, 2014 [facility] [place] [facility] [address] [id number] [place] [address]- 4302 Sep, [facility] [place] [facility] [address] [id number] [place] [address]- 2464 Sep, [facility] [place] [facility] [address] [id number] [place] [address]- 6874 Sep, [facility] [place] [facility] [address] [id number] [place] [address]- 1403 Sep, [facility] [place] [facility] [address] [id number] [place] [address]- 8543 Sep, [facility] [place] [facility] [address] [id number] [place] [address]- 5637 Sep, [facility] [place] [facility] [address] [id number] [place] [address]- 6011 Sep, [facility] [place] [facility] [address] [id number] [place] [address]- 6350 Sep, [facility] [place] [facility] [address] [id number] [place] [address]- 2506 Sep, [facility] [place] [facility] [address] [id number] [place] [address]- 8682 Sep, [facility] [place] [facility] [address] [id number], [place] [address]- 0802 Sep, [facility] [place] [facility] [address] [id number] [place] [address]- 8815 Aug, [facility] [place] [facility] [address] [id number] [place] [address]- 9366 Aug, [facility] [place] [facility] [address] [id number], [place] [address]- 7185 Aug, [facility] [place] [facility] [address] [id number], [place] [address]- 6209 09 Aug, 2014 [facility] [place] [facility] [address] [id number] [place] [address]- 4654 08 Aug, 2014 [facility] [place] [facility] [address] [id number] [place] [address]- 3508 07 Aug, 2014 [facility] [place] [facility] [address] [facility] [id number] [place] [address]- 6283 Aug, [facility] [place] [facility] [address] [id number] [place] [address]- 8582 04 Aug, 2014 [facility] [place] [facility] [address] [id number] [place] [address]- 8304 Aug, [facility] [place] [facility] [address] [id number] [place] [address]- 6875 Aug, [facility] [place] [facility] [address] [facility] [id number] [place] [address]- 3128 Aug, [facility] [place] [facility] [address] [id number] [place] [address]- 8452 Aug, [facility] [place] [facility] [address] [id number] [place] [address]- 8200 Jul, [facility] [place] [facility] [address] [facility] [id number] [place] [address]- 5710 Jul, [facility] [place] [facility] [address] [id number] [place] [address]- 3006 Jul, [facility] [place] [facility] [address] [id number], [place] [address]- 2634 Jul, [facility] [place] [facility] [address] [id number] [place] [address]- 9473 17 Jul, 2014 [facility] [place] [facility] [address] [id number] [place] [address]- 4523 17 Jul, 2014 [facility] [place] [facility] [address] [facility] [id number] [place] [address]- 4463 Jul, [facility] [place] [facility] [address] [id number] [place] [address]- 3695 Jul, [facility] [place] [facility] [address] [id number] [place] [address]- 6671 Jul, [facility] [place] [facility] [address] [id number] [place] 7520 Jul, [facility] [place] [facility] [address] [id number] [place] 0753 Jun, [facility] [place] [facility] [address] [id number] [place] [address]- 8027 Jun, [facility] [place] [facility] [address] [id number] [place] [address]- 1472 Jun, [facility] [place] [facility] [address] [id number] [place] [address]- 8878 Jun, [facility] [place] [facility] [address] [id number] [place] [address]- 7513 Jun, [facility] [place] [facility] [address] [id number] [place] [address]- 3857 30 Jun, 2014 [facility] [place] [facility] [address] [id number] [place] [address]- 6684 Jun, [facility] [place] [facility] [address] [id number] [place] [address]- 1962 15 Jun, 2014 [facility] [place] [facility] [address] [id number] [place] [address]- 3120 22 May, 2014 [facility] [place] [facility] [address] [id number] [place] [address]- 4841 22 May, 2014 [facility] [place] [facility] [address] [id number] [place] [address]- 8429 18 May, 2014 [facility] [place] [facility] [address] [id number] [place] [address]- 1805 18 May, 2013 [facility] [place] [facility] [address] [id number] [place] [address]- 8022 May, [facility] [place] [facility] [address] [id number] [place] [address]- 2766 May, [facility] [place] [facility] [address] [id number] [place] [address]- 1815 May, [facility] [place] [facility] [address] [id number] [place] [address]- 5452 May, [facility] [place] [facility] [address] [id number] [place] [address]- 4542 Apr, [facility] [place] [facility] [address] [id number] [place] [address]- 3657 Apr, [facility] [place] [facility] [address] [id number] [place] [address]- 0224 Apr, [facility] [place] [facility] [address] [id number] [place] [address]- 9951 Apr, [facility] [place] [facility] [address] [id number] [place] [address]- 7879 Mar, [facility] [place] [facility] [address] [id number] [place] [address]- 7455 Mar, [facility] [place] [facility] [address] [id number] [place] [address]- 9223 Mar, [facility] [place] [facility] [address] [id number] [place] [address]- 9165 Mar, [facility] [place] [facility] [address] [id number] [place] [address]- 9516 Mar, [facility] [place] [facility] [address] [id number] [place] [address]- 4583 Mar, [facility] [place] [facility] [address] [id number] [place] [address]- 5388 Jan, [facility] [place] [facility] [address] [id number] [place] [address]- 7918 Jan, [facility] [place] [facility] [address] [id number] [place] [address]- 0957 Jan, [facility] [place] [facility] [address] [id number] [place] [address]- 4557 Jan, [facility] [place] [facility] [address] [id number] [place] [address]- 8605 Jan, [facility] [place] [facility] [address] [id number] [place] [address]- 0087 Jan, [facility] [place] [facility] [address] [id number] [place] [address]- 9911 Jan, [facility] [place] [facility] [address] [id number] [place] [address]- 8482 Jan, [facility] [place] [facility] [address] [id number] [place] [address]- 2870 Jan, [facility] [place] [facility] [address] [id number] [place] [address]- 1338 Jan, [facility] [place] [facility] [address] [id number] [place] [address]- 3394 Jan, [facility] [place] [facility] [address] [id number] [place] [address]- 0471 Jan, [facility] [place] [facility] [address] [id number] [place] [address]- 8262 December, [facility] [place] [facility] [address] [id number] [place] [address]- 9061 December, [facility] [place] [facility] [address] [id number] [place] [address]- 5523 December, [facility] [place] [facility] [address] [id number] [place] [address]- 4277 December, [facility] [place] [facility] [address] [id number] [place] [address]- 2629 Dec, [facility] [place] [facility] [address] [id number] [place] [address]- 3772 Dec, [facility] [place] [facility] [address] [id number] [place] [address]- 9041 Dec, [facility] [place] [facility] [address] [id number] [place] [address]- 4626 Dec, [facility] [place] [facility] [address] [id number] [place] [address]- 3180 Dec, [facility] [place] [facility] [address] [id number] [place] [address]- 5955 Dec, [facility] [place] [facility] [address] [id number] [place] [address]- 2895 Dec, [facility] [place] [facility] [address] [id number] [place] [address]- 0861 Dec, [facility] [place] [facility] [address] [id number] [place] [address]- 2331 Dec, [facility] [place] [facility] [address] [id number] [place] [address]- 6266 Dec, [facility] [place] [facility] [address] [id number] [place] [address]- 0092 Dec, [facility] [place] [facility] [address] [id number] [place] [address]- 3457 Dec, [facility] [place] [facility] [address] [id number] [place] [address]- 3849 Dec, [facility] [place] [facility] [address] [id number] [place] [address]- 1587 Dec, [facility] [place] [facility] [address] [id number] [place] [address]- 5453 Oct, [facility] [place] [facility] [address] [id number] [place] [address]- 0914 Oct, [facility] [place] [facility] [address] [id number] [place] [address]- 6143 Oct, [facility] [place] [facility] [address] [id number] [place] [address]- 5016 29 Oct, 2013 [facility] [address] [id number] [place] [address]- 1921 Oct, [facility] [place] [facility] [address] [id number] [place] [address]- 8446 Oct, [facility] [place] [facility] [address] [id number] [place] [id number] Oct, [facility] [place] [facility] [address] [id number] [place] [address]- 4176 Oct, [facility] [address] [id number] [place] [address]- 2157 Oct, [facility] [address] [id number] [place] [address]- 0100 Oct, [facility] [address] [id number] [place] [address]- 2901 Sep, [facility] [place] [facility] [address] [id number] [place] [address]- 6276 Sep, [facility] [address] [id number] [place] [address]- 1449 Sep, [facility] [place] [facility] [address] [id number] [place] [address]- 5376 Sep, [facility] [address] [id number] [place] [address]- 5936 Sep, [facility] [place] [facility] [address] [id number], [place] [address]- 5893 Sep, [facility] [place] [facility] [address] [id number] [place] [address]- 8298 Aug, [facility] [place] [facility] [address] [id number] [place] [address]- 1576 Aug, [facility] [place] [facility] [address] [id number] [place] [address]- 2546 Jul, [facility] [place] [facility] [address] [facility] [id number] [place] [address]- 2036 Jul, [facility] [address] [facility] [id number] [place] [address]- 2346 Jul, [facility] [address] [facility] [id number], [place] [address]- 9062 Jul, [facility] [address] [facility] [id number], [place] [address]- 0733 Jul, IMMUNIZATIONS No Known Immunizations SOCIAL HISTORY Never Assessed REASON FOR VISIT Suboxone rx (05/21-06/17) PLAN OF CARE VITAL SIGNS MEDICATIONS Medication Instructions Dosage Frequency Start Date End Date Duration Status Suboxone 8-2 MG Sublingual Once a day 2 film under the tongue and allow to [...]
--- OUTSIDE RECORDS SUMMARY | 2018-08-30 20:24 | XMS REPORT ---
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 Active 74424830 Problem Chronic kidney disease, stage 3 N18.3 Active 925560735 Problem CHI I (cervical intraepithelial neoplasia I) N87.0 Active 838421844 Problem Mild episode of recurrent major depressive disorder F33.0 Active 508500605 Problem Addiction to drug F19.20 Active 787506271 Problem Essential hypertension I10 Active 45638366 Problem Opioid use disorder, severe, in sustained remission F11.21 Active 52931012 Problem Irritable bowel syndrome with constipation K58.1 Active 305028310 ALLERGIES No Information ENCOUNTERS Encounter Location Date Diagnosis [place] [id number] [place] [address] 83411- 2336 26 May, 2018 Opioid use disorder, severe, in early remission F11.21 [facility] [address] [place] [address] 42537- 7701 24 May, 2018 [place] [address] [place] [id number] [place] [address] 60271- 4462 18 May, 2018 [facility] [address] [place] [id number] [place] [address] 15212- 2616 May, Opioid use disorder, severe, in early remission F11.21 [facility] [address] [place] [address] May, Opioid use disorder, severe, in sustained remission F11.21 [facility] [address] [place] [address] [id number] [place] [address] 42155- 7830 Apr, [facility] [address] [id number] [place] [address] 77799- 3884 Apr, [facility] [id number] [place] [address] 01513- 1495 Apr, [facility] [address] [id number] [place] [address] 95260- 5404 Apr, Opioid use disorder, severe, in early remission F11.21 [facility] [address] [address] Apr, Bacterial conjunctivitis of left eye H10.9 [facility] [address] [place] [address] [id number] [place] [address] 83078- 7375 Apr, [facility] [id number] [place] [address] 94674- 0971 Apr, [facility] [id number] [place] [address] 43247- 9750 Mar, Essential hypertension I10 and Irritable bowel syndrome with constipation K58.1 [facility] [id number] [place] [address] 71077- 7735 Mar, [facility] [id number] [place] [address] 55918- 9537 Mar, Chronic kidney disease, stage 3 N18.3 ; 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 ; Opioid use disorder, severe, in sustained remission F11.21 and Mixed hyperlipidemia E78.2 [facility] [address] [place] [address] [id number] [place] [address] 25626- 7582 Mar, Mixed hyperlipidemia E78.2 [facility] [address] [address] [id number] [place] [address] 15670- 3180 Mar, Opioid use disorder, severe, 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 [facility] [address] [place] [address] 43822- 6260 Mar, [facility] [address] [place] [address] Mar, Opioid use disorder, severe, in sustained remission F11.21 [facility] [address] [place] [address] 84978- 2740 Jan, Opioid use disorder, severe, in early remission F11.21 [facility] [address] [place] [id number] [place] [address] 84668- 5114 December, Opioid use disorder, severe, in early remission F11.21 [facility] [address] [place] [address] December, Opioid use disorder, severe, in sustained remission F11.21 [facility] [address] [place] [id number] [place] [address] 82401- 2969 December, Opioid use disorder, severe, in sustained remission F11.21 and 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 [facility] [address] [place] [id number] [place] [address] 72497- 6110 December, Opioid use disorder, severe, 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 [facility] [address] [place] [address] Dec, Opioid use disorder, severe, in sustained remission F11.21 [facility] [address] [place] [id number] [place] [address] 18872- 1694 Dec, 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 ; Unprotected sexual intercourse Z72.51 ; Pain of left thumb M79.645 ; Mixed hyperlipidemia E78.2 ; Gastroparesis K31.84 ; Essential hypertension I10 and Irritable bowel syndrome with constipation K58.1 [facility] [address] [place] [address] 31305- 8124 Dec, Opioid use disorder, severe, in early remission F11.21 [facility] [address] [place] [id number] [place] [address] 03312- 7833 Oct, [facility] [address] [address] Oct, Opioid use disorder, severe, in early remission F11.21 [facility] [address] [address] 5536 Oct, [facility] [address] [place] [address] 62718- 6686 Oct, Opioid use disorder, severe, in early remission F11.21 [facility] [address] [address] 8330 Oct, [facility] [address] [place] [id number] [place] [address] 85888- 5116 Oct, [facility] [address] [place] [address] Oct, Opioid use disorder, severe, in sustained remission F11.21 [facility] [address] [address]- 6442 Sep, [facility] [address] [place] [address] 76726- 4798 Sep, [facility] [address] [place] [address] [id number] [place] [address] 75722- 9143 Sep, Opioid use disorder, severe, in early remission F11.21 [facility] [address] [address]- 7783 Aug, Opioid use disorder, severe, in early remission F11.21 [facility] [address] [address]- 7816 Jul, [facility] [address] [place] [address] [id number] [place] [address] 70199- 6500 Jul, Chronic kidney disease, stage 3 N18.3 ; Dysthymia F34.1 and Opioid use disorder, severe, in sustained remission F11.21 [facility] [address] [place] [address] Jul, Opioid use disorder, severe, in sustained remission F11.21 [facility] [address] [place] [address] 34642- 0738 Jul, Long-term use of high-risk medication Z79.899 and Chronic kidney disease, stage 3 N18.3 [facility] [address] [place] [id number] [place] [address] 19669- 4936 Jul, Opioid use disorder, severe, in early remission F11.21 [facility] [address] [place] [id number] [place] [address] 87646- 8308 Jul, [place] [address] [place] [id number] [place] [address] 48382- 8024 Jun, [facility] [address] [place] [id number] [place] [address] 53753- 8263 Jun, [place] [address] [place] [id number] [place] [address] 31182- 4361 Jun, Opioid use disorder, moderate, dependence F11.20 and Opioid use disorder, severe, 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 [place] [address] [place] [id number] [place] [address] 63002- 0662 Jun, [place] [address] [place] [id number] [place] [address] 02757- 4237 Jun, Long-term use of high-risk medication Z79.899 [place] [address] [place] [address] [place] [address] 21828- 8081 Jun, CHI I (cervical intraepithelial neoplasia I) N87.0 [facility] [address] [place] [id number] [place] [address] 50940- 1622 May, Opioid use disorder, severe, 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 [facility] [address] [place] [id number] [place] [address] 92020- 9564 18 May, 2017 Chronic kidney disease, stage 3 N18.3 [facility] [address] [place] [id number] [place] [address] 98118- 6271 14 May, 2017 Chronic kidney disease, stage 3 N18.3 [facility] [address] [place] [address] 05 May, 2017 Opioid use disorder, severe, in sustained remission F11.21 [facility] [address] [place] [id number] [place] [address] 33024- 9343 Apr, LGSIL on Pap smear of cervix R87.612 [facility] [address] [place] [address] Apr, [facility] [address] [place] [id number] [place] [address] 30974- 8007 Apr, Opioid use disorder, severe, in early remission F11.21 [facility] [address] [place] [id number] [place] [address] 57863- 1851 Apr, Opioid use disorder, severe, in early remission F11.21 [facility] [address] [place] [id number] [place] [address] 66143- 7466 Apr, Opioid use disorder, severe, in early remission F11.21 [facility] [address] [place] [id number] [place] [address] 55765- 3446 18 Apr, 2017 Opioid use disorder, severe, 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 [facility] [address] [place] [id number] [place] [address] 98500- 6636 14 Apr, 2017 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 [facility] [address] [place] [id number] [place] [address] 18988- 5473 Apr, Opioid use disorder, severe, in early remission F11.21 [facility] [address] [place] [address] Apr, Opioid use disorder, severe, in sustained remission F11.21 [facility] [address] [place] [id number] [place] [address] 59518- 1071 09 Apr, 2017 Opioid use disorder, severe, 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 [facility] [address] [place] [id number] [place] [address] 66098- 1926 Apr, Mild episode of recurrent major depressive disorder F33.0 and Right acute serous otitis media, recurrence not specified H65.01 [facility] [address] [place] [id number] [place] [address] 54078- 3213 Mar, [facility] [address] [place] [id number] [place] [address] 42938- 2332 Mar, Opioid use disorder, severe, 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 [facility] [address] [place] [id number] [place] [address] 89849- 8154 Mar, [facility] [address] [place] [address] Mar, Opioid use disorder, severe, in sustained remission F11.21 [facility] [address] [place] [address] Mar, Opioid use disorder, severe, in sustained remission F11.21 [facility] [address] [place] [id number] [place] [address] 48164- 9494 Mar, Opioid use disorder, severe, in early remission F11.21 [facility] [address] [place] [id number] [place] [address] 08101- 2568 Jan, Opioid use disorder, severe, 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 [facility] [address] [place] [address] Jan, Opioid use disorder, severe, in sustained remission F11.21 [facility] [address] [place] [address] Jan, Opioid use disorder, severe, in sustained remission F11.21 [facility] [address] [place] [id number] [place] [address] 94857- 7818 Jan, Opioid use disorder, severe, 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 [facility] [address] [place] [address] Jan, Opioid use disorder, severe, in sustained remission F11.21 [facility] [address] [place] [id number] [place] [address] 20727- 0803 December, Opioid use disorder, severe, 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 [facility] [address] [place] [address] December, Opioid use disorder, severe, in sustained remission F11.21 [facility] [address] [place] [id number] [place] [address] 43426- 7026 December, Routine gynecological examination Z01.419 and Chronic kidney disease, stage [address] 17979- 6137 December, Chronic kidney disease, stage 3 N18.3 ; 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 ; Gastroparesis K31.84 ; Essential hypertension I10 and Irritable bowel syndrome with constipation K58.1 [facility] [address] [place] [address] December, Opioid use disorder, severe, in sustained remission F11.[address] 44102- 4916 December, Opioid use disorder, severe, in early remission F11.21 [facility] [address] [place] [address] December, Opioid use disorder, severe, in sustained remission F11.[address] 66092- 1884 December, Encounter for therapeutic drug level monitoring Z51.81 [facility] [address] [place] [address] December, Opioid use disorder, severe, in sustained remission F11.21 [facility] [address] [place] [address] Dec, Opioid use disorder, severe, in sustained remission F11.21 [facility] [address] [place] [id number] [place] [address] 59654- 9661 Dec, Opioid use disorder, severe, in early remission F11.21 [facility] [address] [place] [id number] [place] [address] 79542- 8972 Dec, [facility] [address] [place] [address] Dec, Opioid use disorder, severe, in sustained remission F11.21 [facility] [address] [place] [id number] [place] [address] 75603- 3494 Dec, Opioid use disorder, severe, in early remission F11.21 [facility] [address] [place] [address] 06 Dec, 2016 Opioid use disorder, severe, in sustained remission F11.21 [facility] [address] [place] [id number] [place] [address] 80680- 1674 Dec, 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 [facility] [address] [place] [id number] [place] [address] 61663- 3960 Dec, Opioid use disorder, severe, in sustained remission F11.21 ; Encounter for therapeutic drug level monitoring Z51.81 [place] [facility] 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 Z79.899 [facility] [address] [place] [address] 31 Oct, 2016 Opioid use disorder, severe, in sustained remission F11.21 [facility] [address] [id number] [place] [address] 05751- 8439 23 Oct, 2016 Opioid use disorder, severe, in early remission F11.21 [facility] [address] [place] [id number] [place] [address] 93015- 6373 15 Oct, 2016 [facility] [address] [place] [address] Oct, Opioid use disorder, severe, in sustained remission F11.21 [facility] [address] [place] [id number] [place] [address] 02405- 1873 15 Oct, 2016 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 [facility] [address] [place] [id number] [place] [address] 99492- 7115 14 Oct, 2016 Routine gynecological examination Z01.419 [facility] [address] [place] [id number] [place] [address] 54890- 3719 07 Oct, 2016 Opioid use disorder, severe, in early remission F11.21 [facility] [address] [place] [id number] [place] [address] 85333- 3763 Oct, Opioid use disorder, severe, in early remission F11.21 [facility] [id number] [place] [address] 16588- 9100 Oct, Opioid use disorder, severe, in early remission F11.21 [facility] [address] [place] [address] Oct, Opioid use disorder, severe, in sustained remission F11.21 [facility] [id number] [place] [address] 23766- 0294 Oct, Opioid use disorder, severe, in early remission F11.21 [place] [address] 33104- 0645 23 Oct, 2016 Opioid use disorder, severe, in early remission F11.21 [facility] [address] [place] [address] Oct, Opioid use disorder, severe, in sustained remission F11.21 [facility] [id number] [place] [address] 15753- 5911 20 Oct, 2016 Opioid use disorder, severe, in sustained remission F11.21 ; Encounter for therapeutic drug level monitoring Z51.81 and [place] [facility] 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 Z79.899 [facility] [address] [id number] [place] [address] 70156- 3749 16 Oct, 2016 [facility] [address] [place] [address] 14 Oct, 2016 Opioid use disorder, severe, in early remission F11.21 [facility] [address] [place] [address] 10 Oct, 2016 Opioid use disorder, severe, in early remission F11.21 [facility] [address] [id number] [place] [address] 97992- 1584 09 Oct, 2016 Opioid use disorder, severe, in early remission F11.21 [facility] [address] [id number] [place] [address] 25811- 7037 08 Oct, 2016 [place] [address] [address]- 2368 Oct, [facility] [id number] [place] [address] 55952- 6249 Oct, [facility] [address] [place] [address] Oct, Opioid use disorder, severe, in early remission F11.21 [facility] [address] [id number] [place] [address] 22123- 9087 Sep, Opioid use disorder, severe, in early remission F11.21 [facility] [address] [place] [address] Sep, Opioid use disorder, severe, in early remission F11.21 [facility] [address] [id number] [place] [address] 29026- 4374 Sep, Opioid use disorder, severe, 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3 ; Essential hypertension I10 and Irritable bowel syndrome with constipation K58.1 [facility] [address] [place] [address] Sep, Opioid use disorder, severe, in early remission F11.21 [facility] [address] [place] [address] Sep, Opioid use disorder, severe, 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 [facility] [id number] [place] [address] 98197- 8133 Sep, Opioid use disorder, moderate, dependence F11.20 [facility] [address] [place] [address] 32387- 9264 Sep, Opioid use disorder, moderate, dependence F11.20 [facility] [address] [place] [address] Sep, Opioid use disorder, severe, 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 [place] [address]752- 5371 Sep, Opioid use disorder, severe, in early remission F11.21 [facility] [address] [place] [address] Aug, Opioid use disorder, severe, in early remission F11.[address] 94177- 2968 Aug, Opioid use disorder, moderate, dependence F11.20 [facility] [address] [place] [address] 66846 -9959 Aug, Bug bite without infection, initial encounter W57.XXXA [address] 64544- 2578 Aug, Opioid use disorder, moderate, dependence F11.20 [facility] [address] [place] [address] Aug, [address] 99966- 6030 Aug, Opioid use disorder, severe, 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 ; [place] [facility] 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 Z79.899 ; Encounter for therapeutic drug level monitoring Z51.81 and 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 [facility] [address] [place] [address] Aug, [facility] [address] [place] [address] 32161- 8262 Aug, Opioid use disorder, moderate, dependence F11.20 ; [place] [facility] 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 Z79.899 and Encounter for therapeutic drug level monitoring Z51.81 [facility] [id number] [place] [address] 40051- 8418 Aug, [facility] [id number] [place] [address] 99197- 1861 Aug, Non-intractable vomiting with nausea, unspecified vomiting type R11.2 [facility] [id number] [place] [address] 48928- 8057 Aug, Opioid use disorder, moderate, dependence F11.20 and Non- intractable vomiting with nausea, unspecified vomiting type R11.2 [facility] [id number] [place] [address] 33306- 7599 Aug, [facility] [id number] [place] [address] 96540- 7551 Aug, Opioid use disorder, moderate, dependence F11.20 [facility] [id number] [place] [address] 99230- 7625 Aug, [facility] [id number] [place] [address] 82741- 0854 Jul, 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 and Opioid use disorder, moderate, dependence F11.20 [facility] [address] [place] [address] Jul, [facility] [id number] [place] [address] 19584- 4883 Jul, [facility] [id number] [place] [address] 59998- 8884 Jul, [facility] [id number] [place] [address] 91135- 9516 Jul, Addiction to drug F19.20 and Chronic kidney disease, stage 3 N18.3 [facility] [address] [place] [address] 17 Jul, 2016 Counseling on substance use and abuse Z71.89 [facility] [id number] [place] [address] [id number] [id number] Jul, Chronic kidney disease, stage 3 N18.3 [facility] [id number] [place] [address] [id number] [phone] Jul, 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 ; Diarrhea, unspecified type R19.7 and Essential hypertension I10 [facility] [id number] [place] [address] [phone] Jul, [facility] [id number] [place] [address] [id number] Jun, [facility] [id number] [place] [address] 64472- 3609 Jun, [facility] [id number] [place] [address] 63748- 9259 Apr, 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 [facility] [id number] [place] [address] 69870- 1243 Apr, Sore throat and laryngitis J06.0 and Non-intractable vomiting with nausea, unspecified vomiting type R11.2 [facility] [id number] [place] [address] 69976- 6822 Apr, [facility] [id number] [place] [address] 50627- 8991 Mar, [facility] [id number] [place] [address] 41426- 5568 Jan, [facility] [id number] [place] [address] 56249- 8789 Jan, [facility] [id number] [place] [address] 83960- 4982 Jan, [facility] [id number] [place] [address] 46660- 5348 December, 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 ; Gastroparesis K31.84 ; Mixed hyperlipidemia E78.2 ; Chronic kidney disease, stage 3 N18.3 ; Dysthymia F34.1 and Acute bilateral low back pain without sciatica M54.5 [facility] [address] 41224- 0710 December, [facility] [address] 93654- 8039 December, [facility] [address] 54791- 7684 Aug, Depression F32.9 and Gastroparesis K31.84 [facility] [address] 97938- 6185 Aug, Gastroparesis K31.84 [place] [address] [address]69- 2006 Jul, Recurrent UTI N39.0 ; Chronic kidney disease, stage 3 N18.3 and 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 [facility] [address] 97144- 3334 Jul, [facility] [address] [id number] Jul, Dental examination Z01.20 and Dental caries K02.9 [place] [id number] [place] [address] 19896- 1123 17 Jul, 2015 [facility] [id number] [place] [address] 14123 -4441 Jul, Dysuria R30.0 ; Urinary tract infection N39.0 and Nausea R11.0 [facility] [id number] [place] [address] 70324- 7551 Jun, Dysuria R30.0 [facility] [address] 53757- 0327 Jun, Dysuria R30.0 [place] [address] 61310- 3184 Jun, Dysuria R30.0 [id number] [place] [address] 15345- 7056 Jun, [place] [id number] [place] [address] 26062- 3623 Jun, Acute cystitis with hematuria N30.01 [place] [id number] [place] [address] 49009- 9997 May, [place] [id number] [place] [address] 01728- 3429 Apr, Diabetes mellitus without mention of complication, type I [ juvenile type], not stated as uncontrolled 250.01 ; Gastroparesis due to DM 250.60 ; Contraception management V25.9 and Renal insufficiency 593.9 [place] [id number] [place] [address] 87201- 2247 Apr, [place] [id number] [place] [address] 75496- 7313 Apr, [place] [id number] [place] [address] 39572- 9622 Mar, [place] [id number] [place] [address] 17155- 2631 Mar, Hyperlipidemia 272.4 and Hypertensive heart and chronic kidney disease, benign, without heart failure and with chronic kidney disease stage I through stage IV, or unspecified 404.10 [place] [id number] [place] [address] 61451- 8999 Mar, Hyperlipidemia 272.4 ; Hyponatremia 276.1 ; 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 ; Hypertensive heart and chronic kidney disease, benign, without heart failure and with chronic kidney disease stage I through stage IV, or unspecified 404.10 ; Proteinuria 791.0 and Chronic kidney disease (CKD), stage III (moderate) 585.3 [place] [id number] [place] [address] 66476- 8329 Mar, [place] [id number] [address]- 4992 Mar, Elevated blood sugar level 790.29 [facility] [id number] [place] [address] 43917- 6675 Mar, Low grade squamous intraepithelial lesion (LGSIL) on cervical Pap smear 795.03 [place] [address] [address]- 8016 Mar, Amenorrhea 626.0 [facility] [id number] [place] [address] 51645- 0890 15 Jan, 2015 Amenorrhea 626.0 ; Routine gynecological examination V72.31 and Screen for STD (sexually transmitted disease) V74.5 [place] [address] [address]- 4756 Jan, Amenorrhea 626.0 [place] [id number] [place] [address] 73282- 4039 08 Jan, 2015 Routine gynecological examination V72.31 ; Screen for STD ( sexually transmitted disease) V74.5 ; Pap test, as part of routine gynecological examination V76.2 ; Breast cancer screening V76.10 and Amenorrhea 626.0 [place] [id number] [address]- 2724 December, [place] [address] [address]- 0548 Dec, [place] [address] [address]- 3378 Dec, [facility] [address] [address]- 8989 30 Oct, 2014 [facility] [id number] [place] [address] 91761- 6328 Oct, [facility] [address] [address]- 3600 Oct, [facility] [id number] [address]- 0444 Oct, [facility] [place] [facility] [address] [id number] [place] [address]- 2674 Oct, [facility] [place] [facility] [address] [id number] [place] [address]- 7990 Oct, [facility] [place] [facility] [address] [id number] [place] [address]- 2474 Oct, [facility] [place] [facility] [address] [id number] [place] [address]- 8738 Oct, [facility] [place] [facility] [address] [id number] [place] [address]- 1689 Oct, [facility] [place] [facility] [address] [id number] [place] [address]- 4308 Oct, [facility] [place] [facility] [address] [id number] [place] [address]- 6724 Oct, [facility] [place] [facility] [address] [id number] [place] [address]- 1762 Sep, [facility] [place] [facility] [address] [id number] [place] [address]- 2667 Sep, [facility] [place] [facility] [address] [id number] [place] [address]- 3695 Sep, [facility] [place] [facility] [address] [id number] [place] [address]- 8291 Sep, [facility] [place] [facility] [address] [id number] [place] [address]- 4750 Sep, [facility] [place] [facility] [address] [id number] [place] [address]- 6771 Sep, [facility] [place] [facility] [address] [id number] [place] [address]- 8767 Sep, [facility] [place] [facility] [address] [id number] [place] [address]- 5590 Sep, [facility] [place] [facility] [address] [id number] [place] [address]- 0930 15 Sep, 2014 [facility] [place] [facility] [address] [id number] [place] [address]- 2692 Sep, [facility] [place] [facility] [address] [id number] [place] [address]- 4353 Sep, [facility] [place] [facility] [address] [id number] [place] [address]- 2502 Sep, [facility] [place] [facility] [address] [id number] [place] [address]- 2629 Sep, [facility] [place] [facility] [address] [id number] [place] [address]- 4981 Sep, [facility] [place] [facility] [address] [id number] [place] [address]- 7902 Sep, [facility] [place] [facility] [address] [id number] [place] [address]- 5988 Sep, [facility] [place] [facility] [address] [id number] [place] [address]- 7489 Sep, [facility] [place] [facility] [address] [id number] [place] [address]- 3494 Sep, [facility] [place] [facility] [address] [id number] [place] [address]- 3861 Sep, [facility] [place] [facility] [address] [id number] [address]- 5345 Sep, [facility] [place] [facility] [address] [id number] [place] [address]- 7335 Aug, [facility] [place] [facility] [address] [id number] [place] [address]- 3326 Aug, [facility] [place] [facility] [address] [id number] [address]- 2076 Aug, [facility] [place] [facility] [address] [id number] [place] [address]- 3282 09 Aug, 2014 [facility] [place] [facility] [address] [id number] [place] [address]- 1623 08 Aug, 2014 [facility] [place] [facility] [address] [id number] [place] [address]- 8194 07 Aug, 2014 [facility] [place] [facility] [address] [facility] [id number] [place] [address]- 6532 Aug, [facility] [place] [facility] [address] [id number] [place] [address]- 3356 04 Aug, 2014 [facility] [place] [facility] [address] [id number] [place] [address]- 6158 Aug, [facility] [place] [facility] [address] [id number] [place] [address]- 3926 Aug, [facility] [place] [facility] [address] [facility] [id number] [place] [address]- 3510 Aug, [facility] [place] [facility] [address] [id number] [place] [address]- 4942 Aug, [facility] [place] [facility] [address] [id number] [place] [address]- 1045 Jul, [facility] [place] [facility] [address] [facility] [id number] [place] [address]- 3124 Jul, [facility] [place] [facility] [address] [id number] [place] [address]- 0022 Jul, [facility] [place] [facility] [address] [id number] [place] [address]- 4801 Jul, [facility] [place] [facility] [address] [id number] [place] [address]- 6114 17 Jul, 2014 [facility] [place] [facility] [address] [id number] [place] [address]- 2554 17 Jul, 2014 [facility] [place] [facility] [address] [facility] [id number] [place] [address]- 0822 Jul, [facility] [place] [facility] [address] [id number] [place] [address]- 7807 Jul, [facility] [place] [facility] [address] [id number] [place] [address]- 7300 Jul, [facility] [place] [facility] [address] [id number] [place] 9045 Jul, [facility] [place] [facility] [address] [id number] [place] 4094 Jun, [facility] [place] [facility] [address] [id number] [place] [address]- 3504 Jun, [facility] [place] [facility] [address] [id number] [place] [address]- 3896 Jun, [facility] [place] [facility] [address] [id number] [place] [address]- 8002 Jun, [facility] [place] [facility] [address] [id number] [place] [address]- 7786 Jun, [facility] [place] [facility] [address] [id number] [place] [address]- 0815 30 Jun, 2014 [facility] [place] [facility] [address] [id number] [place] [address]- 1284 Jun, [facility] [place] [facility] [address] [id number] [place] [address]- 2109 15 Jun, 2014 [facility] [place] [facility] [address] [id number] [place] [address]- 3462 22 May, 2014 [facility] [place] [facility] [address] [id number] [place] [address]- 2485 22 May, 2014 [facility] [place] [facility] [address] [id number] [place] [address]- 4594 18 May, 2014 [facility] [place] [facility] [address] [id number] [place] [address]- 3752 18 May, 2013 [facility] [place] [facility] [address] [id number] [place] [address]- 8066 May, [facility] [place] [facility] [address] [id number] [place] [address]- 3880 May, [facility] [place] [facility] [address] [id number] [place] [address]- 4247 May, [facility] [place] [facility] [address] [id number] [place] [address]- 7369 May, [facility] [place] [facility] [address] [id number] [place] [address]- 1031 Apr, [facility] [place] [facility] [address] [id number] [place] [address]- 0568 Apr, [facility] [place] [facility] [address] [id number] [place] [address]- 5578 Apr, [facility] [place] [facility] [address] [id number] [place] [address]- 2876 Apr, [facility] [place] [facility] [address] [id number] [place] [address]- 1544 Mar, [facility] [place] [facility] [address] [id number] [place] [address]- 6761 Mar, [facility] [place] [facility] [address] [id number] [place] [address]- 6430 Mar, [facility] [place] [facility] [address] [id number] [place] [address]- 0361 Mar, [facility] [place] [facility] [address] [id number] [place] [address]- 0340 Mar, [facility] [place] [facility] [address] [id number] [place] [address]- 1773 Mar, [facility] [place] [facility] [address] [id number] [place] [address]- 4018 Jan, [facility] [place] [facility] [address] [id number] [place] [address]- 8206 Jan, [facility] [place] [facility] [address] [id number] [place] [address]- 8774 Jan, [facility] [place] [facility] [address] [id number] [place] [address]- 9328 Jan, [facility] [place] [facility] [address] [id number] [place] [address]- 7955 Jan, [facility] [place] [facility] [address] [id number] [place] [address]- 9913 Jan, [facility] [place] [facility] [address] [id number] [place] [address]- 1424 Jan, [facility] [place] [facility] [address] [id number] [place] [address]- 8060 Jan, [facility] [place] [facility] [address] [id number] [place] [address]- 6588 Jan, [facility] [place] [facility] [address] [id number] [place] [address]- 2877 Jan, [facility] [place] [facility] [address] [id number] [place] [address]- 4714 Jan, [facility] [place] [facility] [address] [id number] [place] [address]- 6511 Jan, [facility] [place] [facility] [address] [id number] [place] [address]- 5463 December, [facility] [place] [facility] [address] [id number] [place] [address]- 7954 December, [facility] [place] [facility] [address] [id number] [place] [address]- 4595 December, [facility] [place] [facility] [address] [id number] [place] [address]- 7985 December, [facility] [place] [facility] [address] [id number] [place] [address]- 5595 Dec, [facility] [place] [facility] [address] [id number] [place] [address]- 8502 Dec, [facility] [place] [facility] [address] [id number] [place] [address]- 3401 Dec, [facility] [place] [facility] [address] [id number] [place] [address]- 9838 Dec, [facility] [place] [facility] [address] [id number] [place] [address]- 7818 Dec, [facility] [place] [facility] [address] [id number] [place] [address]- 2454 Dec, [facility] [place] [facility] [address] [id number] [place] [address]- 9375 Dec, [facility] [place] [facility] [address] [id number] [place] [address]- 7348 Dec, [facility] [place] [facility] [address] [id number] [place] [address]- 9759 Dec, [facility] [place] [facility] [address] [id number] [place] [address]- 2202 Dec, [facility] [place] [facility] [address] [id number] [place] [address]- 5416 Dec, [facility] [place] [facility] [address] [id number] [place] [address]- 6124 Dec, [facility] [place] [facility] [address] [id number] [place] [address]- 2211 Dec, [facility] [place] [facility] [address] [id number] [place] [address]- 6103 Dec, [facility] [place] [facility] [address] [id number] [place] [address]- 3566 Oct, [facility] [place] [facility] [address] [id number] [place] [address]- 8248 Oct, [facility] [place] [facility] [address] [id number] [place] [address]- 3779 Oct, [facility] [place] [facility] [address] [id number] [place] [address]- 9716 29 Oct, 2013 [facility] [address] [id number] [place] [address]- 8874 Oct, [facility] [place] [facility] [address] [id number] [place] [address]- 8506 Oct, [facility] [place] [facility] [address] [id number] [place] [id number] Oct, [facility] [place] [facility] [address] [id number] [place] [address]- 8413 Oct, [facility] [address] [id number] [place] [address]- 2904 Oct, [facility] [address] [id number] [place] [address]- 8057 Oct, [facility] [address] [id number] [place] [address]- 8686 Sep, [facility] [place] [facility] [address] [id number] [place] [address]- 4394 Sep, [facility] [address] [id number] [place] [address]- 8174 Sep, [facility] [place] [facility] [address] [id number] [place] [address]- 9209 Sep, [facility] [address] [id number] [place] [address]- 0790 Sep, [facility] [place] [facility] [address] [id number] [address]- 5819 Sep, [facility] [place] [facility] [address] [id number] [place] [address]- 7984 Aug, [facility] [place] [facility] [address] [id number] [place] [address]- 0106 Aug, [facility] [place] [facility] [address] [id number] [place] [address]- 2546 Jul, [facility] [place] [facility] [address] [facility] [id number] [place] [address]- 7712 Jul, [facility] [address] [facility] [id number] [place] [address]- 0953 Jul, [facility] [address] [facility] [id number] [place] [address]- 7008 Jul, [facility] [address] [facility] [id number] [place] [address]- 1646 Jul, IMMUNIZATIONS No Known Immunizations SOCIAL HISTORY Never Assessed REASON FOR VISIT Tx plan update PLAN OF CARE Activity Details Follow Up 4 Weeks Reason: VITAL SIGNS MEDICATIONS Unknown Medications RESULTS No Results PROCEDURES Procedure Date Ordered Result Body Site DRUG TEST PRSMV CHEM ANLYZR May 14, 2018 DRUG SCREEN AMPHETAMINES 09/03May 14, 2018 Alcohol and/or drug services May 14, 2018 INSTRUCTIONS MEDICATIONS ADMINISTERED No Known Medications [...]
--- NOTE | 2018-08-30 20:25 | ED GI ---
General Stated Complaint: DIABETIC HIGH BS Source of Information: Patient, Other Exam Limitations: No Limitations History of Present Illness Date Seen by Provider: Aug 30, 2018 Time Seen by Provider: 20:14 Initial Comments Patient presents to ER by EMS with chief complaint of nausea vomiting and high blood sugar. She says this morning she woke up around 8:00 feeling just fine swapped out her insulin pump provided to her by her porter luggage in [place]. She has basal unit of Humalog approximate 0.6 units per hour. She said it was working fine before this but with her new pump she went back to sleep and woke up around 1:30 feeling nauseated and throwing up and checked her blood sugar and it was over 500. She took 8 units of Humalog subcutaneous and went back to sleep and woke up again around 4:30 and her blood sugar was still 4:30 and she was feeling nauseated so she took another 10 units of Humalog. She then went to work around 5 and by 6:30 she was still nauseated and rechecked her blood sugar and it was still above 400 so she took a third dose of 10 units Humalog. She called 911 because she has been in DKA before. She does not feel like she is urinating frequently. She is afraid that her insulin pump may not be working appropriately. She's having no pain fevers chills cough or dysuria. Allergies and Home Medications Allergies Coded Allergies: sulfamethoxazole (Verified Allergy, Mild, rash, 08/30/18) Penicillins (Verified Adverse Reaction, Mild, upset stomach, 08/30/18) amoxicillin ok. ciprofloxacin (Verified Adverse Reaction, Mild, Upset stomach, 08/30/18) Patient Home Medication List Home Medication List Reviewed: Yes Review of Systems Review of Systems Constitutional: No chills, No diaphoresis EENTM: No Blurred Vision, No Double Vision Respiratory: Denies Cough, Denies Shortness of Air Cardiovascular: Denies Chest Pain, Denies Lightheadedness Gastrointestinal: Denies Constipated, Denies Diarrhea; Nausea, Poor Fluid Intake, Vomiting Genitourinary: Denies Discharge, Denies Drainage Musculoskeletal: No back pain, No joint pain Skin: No pruritus, No rash Psychiatric/Neurological: Denies Headache, Denies Numbness, Denies Paresthesia Past [id number] Hx Patient Social History Alcohol Use: Denies Use Recreational Drug Use: No Smoking Status: Never a Smoker Recent Foreign Travel: No Contact w/Someone Who Travel: No Physical Exam Vital Signs Vital Signs - First Documented Capillary Refill : Height/Weight/BMI Height: '" Weight: lbs. oz. kg; BMI Method: General Appearance: WD/WN, mild distress HEENT: PERRL/EOMI, normal ENT inspection, pharynx normal Neck: supple, normal inspection Respiratory: chest non-tender, lungs clear, normal breath sounds, no respiratory distress, no accessory muscle use Cardiovascular: normal peripheral pulses, regular rate, rhythm Peripheral Pulses: 2+ Radial Pulses (R), 2+ Radial Pulses (L) Gastrointestinal: normal bowel sounds, non tender, soft Extremities: normal range of motion, no pedal edema, normal capillary refill Neurologic/Psychiatric: alert, normal mood/affect, oriented x 3 Skin: normal color, warm/dry Progress/Results/Core Measures Results/Orders Lab Results Laboratory Tests Test 08/30/18 20:18 08/30/18 20:26 08/30/18 21:32 Range/Units Glucometer 325 H 70-110 MG/DL Urine Color YELLOW Urine Clarity VERY CLOUDY H Urine pH 6 5-9 Urine Specific [place] 1.005 L 1.016-1.022 Urine Protein 3+ H NEGATIVE Urine Glucose (UA) 4+ H NEGATIVE Urine Ketones 1+ H NEGATIVE Urine Nitrite NEGATIVE NEGATIVE Urine Bilirubin NEGATIVE NEGATIVE Urine Urobilinogen NORMAL NORMAL MG/DL Urine Leukocyte Esterase 1+ H NEGATIVE Urine RBC (Auto) 2+ H NEGATIVE Urine RBC 0-2 /HPF Urine WBC 10-25 H /HPF Urine Squamous Epithelial Cells 2-5 /HPF Urine Renal Epithelial Cells RARE /HPF Urine Crystals NONE /LPF Urine Bacteria LARGE H /HPF Urine Casts NONE /LPF Urine Mucus NEGATIVE /LPF Urine Culture Indicated YES Urine Test NEGATIVE NEGATIVE White Blood Count 14.1 H 4.3-11.0 10^3/uL Red Blood Count 5.15 4.35-5.85 10^6/uL Hemoglobin 16.0 11.5-16.0 G/DL Hematocrit 47 35-52 % Mean Corpuscular Volume 91 80-99 FL Mean Corpuscular Hemoglobin 31 25-34 PG Mean Corpuscular Hemoglobin Concent 34 32-36 G/DL Red Cell Distribution Width 13.3 10.0-14.5 % Platelet Count 200 130-400 10^3/uL Mean Platelet Volume 10.2 7.4-10.4 FL Neutrophils (%) (Auto) 80 H 42-75 % Lymphocytes (%) (Auto) 9 L 12-44 % Monocytes (%) (Auto) 8 0-12 % Eosinophils (%) (Auto) 2 0-10 % Basophils (%) (Auto) 1 0-10 % Neutrophils # (Auto) 11.3 H 1.8-7.8 X 10^3 Lymphocytes # (Auto) 1.3 1.0-4.0 X 10^3 Monocytes # (Auto) 1.1 H 0.0-1.0 X 10^3 Eosinophils # (Auto) 0.3 0.0-0.3 10^3/uL Basophils # (Auto) 0.1 0.0-0.1 10^3/uL Sodium Level 141 135-145 MMOL/L Potassium Level 4.5 3.6-5.0 MMOL/L Chloride Level 110 H 98-107 MMOL/L Carbon Dioxide Level 17 L 21-32 MMOL/L Anion Gap 14 5-14 MMOL/L Blood Urea Nitrogen 24 H 7-18 MG/DL Creatinine 2.13 H 0.60-1.30 MG/DL Estimat Glomerular Filtration Rate 27 BUN/Creatinine Ratio 11 Glucose Level 217 H 70-105 MG/DL Calcium Level 9.1 8.5-10.1 MG/DL Corrected Calcium 9.3 8.5-10.1 MG/DL Magnesium Level 2.6 H 1.8-2.4 MG/DL Total Bilirubin 0.5 0.1-1.0 MG/DL Aspartate Amino Transf (AST/SGOT) 16 5-34 U/L Alanine Aminotransferase (ALT/SGPT) 14 0-55 U/L Alkaline Phosphatase 66 40-136 U/L Total Protein 6.8 6.4-8.2 GM/DL Albumin 3.8 3.2-4.5 GM/DL Lipase < 4 L 8-78 U/L My Orders Orders - CAMILLA HINSON Saline Lock/Iv-Start (08/30/18 20:19) Ns Iv 1000 Ml (Sodium Chloride 0.9%) (08/30/18 20:19) Cbc With Automated Diff (08/30/18 20:19) Comprehensive Metabolic Panel (08/30/18 20:19) Lipase (08/30/18 20:19) Magnesium (08/30/18 20:19) Ua Culture If Indicated (08/30/18 20:19) Accucheck Stat ONCE (08/30/18 20:19) Urine Culture (08/30/18 20:26) I-Stat Bedside Testing (08/30/18 21:29) Hcg,Qualitative Urine (08/30/18 21:29) Ceftriaxone For Iv Use (Rocephin For I (08/30/18 22:15) Comprehensive Metabolic Panel (08/30/18 21:32) Medications Given in ED Current Medications Medications Dose Ordered Sig/Ari Route Start Time Stop Time Status Last Admin Dose Admin Ceftriaxone Sodium 1000 mg/ Sodium Chloride 50 ml @ 100 mls/hr ONCE ONCE IV 08/30/18 22:15 08/30/18 22:44 08/30/18 22:21 100 MLS/HR Vital Signs/I&O 08/30/18 20:09 B/P (MAP) Progress Progress Note #1: Time: 20:24 Progress Note If there is no overt evidence of infection such as a UTI than likely she is having pump malfunction. Urine started by getting an Accu-Chek and give her some appropriate insulin and then check some basic labs give HER-2 liters of saline look for Y derangements given her recent sugar abnormalities and nausea vomiting. Progress Note #2: Time: 22:43 Progress Note There is an issue obtaining blood from the patient but we did finally get lab results and her potassium is good at 4.5 with a high magnesium of 2.8. We will not be giving any regular insulin bolus right now as her blood sugar is now down in the 200s. We will however have her initiate sugar water and insulin drip in the ICU for DKA. Departure Communication (Admissions) Time/Spoke to Admitting Phy: 22:45 Discussed case lab imaging's and antibiotic choice with Dr. Alexander and she agrees to accept the patient to the ICU. Impression Primary Impression: Diabetic ketoacidosis associated with type 1 diabetes mellitus Qualified Codes: E10.10 - Type 1 diabetes mellitus with ketoacidosis without coma Additional Impression: Urinary tract infection Qualified Codes: N30.01 - Acute cystitis with hematuria Disposition: ADMITTED INPATIENT Condition: Stable Admissions Decision to Admit Reason: Admit from ER (General) Decision to Admit/Date: Aug 30, 2018 Time/Decision to Admit Time: 22:46 Departure-Patient Inst. Referrals: NO,LOCAL PHYSICIAN (PCP) Primary Care Physician CAMILLA HINSON Aug 30, 2018 20:25
--- OUTSIDE RECORDS SUMMARY | 2018-08-30 20:25 | XMS REPORT ---
Author Author NOEMY MORGAN Organization [facility] [place] Address [address] 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 Active 14093208 Problem Chronic kidney disease, stage 3 N18.3 Active 305659940 Problem CHI I (cervical intraepithelial neoplasia I) N87.0 Active 324038132 Problem Mild episode of recurrent major depressive disorder F33.0 Active 586980675 Problem Addiction to drug F19.20 Active 105031936 Problem Essential hypertension I10 Active 69881704 Problem Opioid use disorder, severe, in sustained remission F11.21 Active 69934552 Problem Irritable bowel syndrome with constipation K58.1 Active 339098631 ALLERGIES No Information ENCOUNTERS Encounter Location Date Diagnosis [facility] [place] [id number] [place] [address] 36600- 1395 May, Opioid use disorder, severe, in early remission F11.21 [facility] [place] [id number] [place] [address] 70445- 3569 24 May, 2018 [facility] [place] [id number] [place] [address] 57188- 9041 May, [facility] [place] [id number] [place] [address] 47065- 3798 May, Opioid use disorder, severe, in early remission F11.21 [facility] [address] [place] [address] May, Opioid use disorder, severe, in sustained remission F11.21 [facility] [place] [id number] [place] [address] 39161- 7247 Apr, [facility] [place] [id number] [place] [address] 78728- 5064 Apr, [facility] [place] [id number] [place] [address] 22197- 7029 Apr, [facility] [place] [id number] [place] [address] 54954- 1618 Apr, Opioid use disorder, severe, in early remission F11.21 [facility] [address] [address] Apr, Bacterial conjunctivitis of left eye H10.9 [facility] [place] [id number] [place] [address] 93836- 2866 Apr, [facility] [place] [id number] [place] [address] 75093- 7868 Apr, [facility] [place] [id number] [place] [address] 95961- 5488 Mar, Essential hypertension I10 and Irritable bowel syndrome with constipation K58.1 [facility] [place] [id number] [place] [address] 86110- 5899 Mar, [facility] [place] [id number] [place] [address] 14958- 5182 Mar, Chronic kidney disease, stage 3 N18.3 ; 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 ; Opioid use disorder, severe, in sustained remission F11.21 and Mixed hyperlipidemia E78.2 [facility] [place] [id number] [place] [address] 52972- 6331 Mar, Mixed hyperlipidemia E78.2 [facility] [place] [id number] [place] [address] 63432- 8883 Mar, Opioid use disorder, severe, 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 [facility] [place] [address] [place] [address] 36576- 7158 Mar, [facility] [address] [place] [address] Mar, Opioid use disorder, severe, in sustained remission F11.21 [facility] [place] [id number] [place] [address] 20708- 9840 Jan, Opioid use disorder, severe, 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 [facility] [place] [id number] [place] [address] 51448- 2550 December, Opioid use disorder, severe, in early remission F11.21 [facility] [address] [place] [address] December, Opioid use disorder, severe, in sustained remission F11.21 [facility] [place] [id number] [place] [address] 21807- 6581 December, Opioid use disorder, severe, in sustained remission F11.21 and 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 [facility] [place] [id number] [place] [address] 58303- 9915 December, Opioid use disorder, severe, 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 [facility] [address] [place] [address] Dec, Opioid use disorder, severe, in sustained remission F11.21 [facility] [place] [address] [place], [place] [id number] [place] [address] 93911- 4743 Dec, 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 ; Unprotected sexual intercourse Z72.51 ; Pain of left thumb M79.645 ; Mixed hyperlipidemia E78.2 ; Gastroparesis K31.84 ; Essential hypertension I10 and Irritable bowel syndrome with constipation K58.1 [facility] [place] [address] [place] [address] 34746- 6917 Dec, Opioid use disorder, severe, in early remission F11.21 [facility] [place] [id number] [place] [address] 00714- 3589 Oct, [facility] [address] [address] 1625 Oct, Opioid use disorder, severe, in early remission F11.21 [facility] [address] [address] 4416 Oct, [facility] [address] [place] [address] 73373- 9226 Oct, Opioid use disorder, severe, in early remission F11.21 [facility] [place] [address] [address] 5793 Oct, [facility] [id number] [place] [address] 72680- 5296 Oct, [facility] [address] [place] [address] Oct, Opioid use disorder, severe, in sustained remission F11.21 [facility] [place] [address] [address]- 8991 Sep, [facility] [place] [id number] [place] [address] 95678- 9501 Sep, [facility] [place] [id number] [place] [address] 51669- 0844 Sep, Opioid use disorder, severe, in early remission F11.21 [facility] [place] [address] [address]- 1739 Aug, Opioid use disorder, severe, in early remission F11.21 [facility] [place] [address] [place] [address]- 5042 Jul, [facility] [place] [id number] [place] [address] 65716- 0334 Jul, Chronic kidney disease, stage 3 N18.3 ; Dysthymia F34.1 and Opioid use disorder, severe, in sustained remission F11.21 [facility] [address] [place] [address] Jul, Opioid use disorder, severe, in sustained remission F11.21 [facility] [place] [address] [place] [address] 10812- 1527 Jul, Long-term use of high-risk medication Z79.899 and Chronic kidney disease, stage 3 N18.3 [facility] [place] [id number] [place] [address] 86594- 7756 Jul, Opioid use disorder, severe, 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 [facility] [place] [id number] [place] [address] 02117- 9261 Jul, [facility] [id number] [place] [address] 56525- 8032 Jun, [facility] [place] [id number] [place] [address] 57135- 1976 Jun, [facility] [id number] [place] [address] 98538- 6112 Jun, Opioid use disorder, moderate, dependence F11.20 and Opioid use disorder, severe, 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 [facility] [id number] [place] [address] 90347- 9535 Jun, [facility] [id number] [place] [address] 57748- 8065 Jun, Long-term use of high-risk medication Z79.899 [facility] [id number] [place] [address] 72076- 9479 Jun, CHI I (cervical intraepithelial neoplasia I) N87.0 [facility] [place] [id number] [place] [address] 38052- 6385 May, Opioid use disorder, severe, 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 [facility] [place] [id number] [place] [address] 71732- 5481 18 May, 2017 Chronic kidney disease, stage 3 N18.3 [facility] [place] [id number] [place] [address] 24712- 7830 14 May, 2017 Chronic kidney disease, stage 3 N18.3 [facility] [address] [place] [address] 05 May, 2017 Opioid use disorder, severe, in sustained remission F11.21 [facility] [place] [id number] [place] [address] 33617- 9558 Apr, LGSIL on Pap smear of cervix R87.612 [facility] [address] [place] [address] Apr, [facility] [place] [id number] [place] [address] 75116- 2360 Apr, Opioid use disorder, severe, in early remission F11.21 [facility] [place] [id number] [place] [address] 40831- 8799 Apr, Opioid use disorder, severe, in early remission F11.21 [facility] [place] [id number] [place] [address] 02682- 9336 Apr, Opioid use disorder, severe, in early remission F11.21 [facility] [place] [id number] [place] [address] 92024- 0661 18 Apr, 2017 Opioid use disorder, severe, in early remission F11.21 [facility] [place] [id number] [place] [address] 17514- 7659 14 Apr, 2017 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 [facility] [place] [id number] [place] [address] 43608- 5036 Apr, Opioid use disorder, severe, in early remission F11.21 [facility] [address] [place] [address] Apr, Opioid use disorder, severe, in sustained remission F11.21 [facility] [place] [id number] [place] [address] 46912- 1170 09 Apr, 2017 Opioid use disorder, severe, 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 [facility] [place] [id number] [place] [address] 16819- 6320 Apr, Mild episode of recurrent major depressive disorder F33.0 and Right acute serous otitis media, recurrence not specified H65.01 [facility] [place] [id number] [place] [address] 12347- 5861 Mar, [facility] [place] [id number] [place] [address] 10743- 3661 Mar, Opioid use disorder, severe, 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 [facility] [id number] [place] [address] 94614- 6033 Mar, [facility] [address] [place] [address] Mar, Opioid use disorder, severe, in sustained remission F11.21 [facility] [address] [place] [address] Mar, Opioid use disorder, severe, in sustained remission F11.21 [facility] [place] [id number] [place] [address] 09599- 0048 Mar, Opioid use disorder, severe, 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 [facility] [place] [id number] [place] [address] 06903- 7610 Jan, Opioid use disorder, severe, 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 [facility] [address] [place] [address] Jan, Opioid use disorder, severe, in sustained remission F11.21 [facility] [address] [place] [address] Jan, Opioid use disorder, severe, in sustained remission F11.21 [facility] [place] [id number] [place] [address] 41335- 3124 Jan, Opioid use disorder, severe, in early remission F11.21 [facility] [address] [place] [address] Jan, Opioid use disorder, severe, in sustained remission F11.21 [facility] [place] [id number] [place] [address] 45067- 1099 December, Opioid use disorder, severe, 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 [facility] [address] [place] [address] December, Opioid use disorder, severe, in sustained remission F11.21 [facility] [place] [id number] [place] [address] 48204- 9128 December, Routine gynecological examination Z01.419 and Chronic kidney disease, stage [address] 71325- 4909 December, Chronic kidney disease, stage 3 N18.3 ; 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 ; Gastroparesis K31.84 ; Essential hypertension I10 and Irritable bowel syndrome with constipation K58.1 [facility] [address] [place] [address] December, Opioid use disorder, severe, in sustained remission F11.[address] 91934- 7971 December, Opioid use disorder, severe, in early remission F11.21 [facility] [address] [place] [address] December, Opioid use disorder, severe, in sustained remission F11.[address] 04947- 9881 December, Encounter for therapeutic drug level monitoring Z51.81 [facility] [address] [place] [address] December, Opioid use disorder, severe, in sustained remission F11.21 [facility] [address] [place] [address] Dec, Opioid use disorder, severe, in sustained remission F11.21 [facility] [place] [address] [place] [id number] [place] [address] 27810- 8188 Dec, Opioid use disorder, severe, in early remission F11.21 [facility] [place] [address] [place] [id number] [place] [address] 95031- 3667 Dec, [facility] [address] [place] [address] Dec, Opioid use disorder, severe, in sustained remission F11.21 [facility] [place] [id number] [place] [address] 17666- 2265 Dec, Opioid use disorder, severe, in early remission F11.21 [facility] [address] [place] [address] 06 Dec, 2016 Opioid use disorder, severe, in sustained remission F11.21 [facility] [place] [id number] [place] [address] 02993- 7541 Dec, 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 [facility] [place] [id number] [place] [address] 54569- 3804 Dec, Opioid use disorder, severe, in sustained remission F11.21 ; Encounter for therapeutic drug level monitoring Z51.81 and 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.899 [facility] [address] [place] [address] 31 Oct, 2016 Opioid use disorder, severe, in sustained remission F11.21 [facility] [place] [id number] [place] [address] 94388- 9544 23 Oct, 2016 Opioid use disorder, severe, 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 [facility] [place] [id number] [place] [address] 51387- 3950 15 Oct, 2016 [facility] [address] [place] [address] Oct, Opioid use disorder, severe, in sustained remission F11.21 [facility] [place] [id number] [place] [address] 31556- 2969 15 Oct, 2016 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 [facility] [place] [id number] [place] [address] 69421- 0488 14 Oct, 2016 Routine gynecological examination Z01.419 [facility] [place] [id number] [place] [address] 54150- 4502 07 Oct, 2016 Opioid use disorder, severe, in early remission F11.21 [facility] [place] [id number] [place] [address] 56781- 9839 Oct, Opioid use disorder, severe, in early remission F11.21 [facility] [place] [id number] [place] [address] 69826- 1368 Oct, Opioid use disorder, severe, in early remission F11.21 [facility] [address] [place] [address] Oct, Opioid use disorder, severe, in sustained remission F11.21 [facility] [place] [id number] [place] [address] 31672- 8585 Oct, Opioid use disorder, severe, in early remission F11.21 [facility] [address] 25084- 2907 23 Oct, 2016 Opioid use disorder, severe, in early remission F11.21 [facility] [address] [place] [address] Oct, Opioid use disorder, severe, in sustained remission F11.21 [facility] [place] [id number] [place] [address] 15145- 9772 20 Oct, 2016 Opioid use disorder, severe, in sustained remission F11.21 ; Encounter for therapeutic drug level monitoring Z51.81 and 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.899 [facility] [place] [id number] [place] [address] 59177- 1259 16 Oct, 2016 [facility] [address] [place] [address] 14 Oct, 2016 Opioid use disorder, severe, in early remission F11.21 [facility] [address] [place] [address] 10 Oct, 2016 Opioid use disorder, severe, in early remission F11.21 [facility] [place] [id number] [place] [address] 83228- 3563 09 Oct, 2016 Opioid use disorder, severe, in early remission F11.21 [facility] [place] [id number] [place] [address] 98903- 9715 08 Oct, 2016 [place] [address], [place] [address]- 9209 Oct, [facility] [place] [id number] [place] [address] 02602- 0953 Oct, [facility] [address] [place] [address] Oct, Opioid use disorder, severe, in early remission F11.21 [facility] [place] [id number] [place] [address] 34863- 1995 Sep, Opioid use disorder, severe, in early remission F11.21 [facility] [address] [place] [address] Sep, Opioid use disorder, severe, in early remission F11.21 [facility] [place] [id number] [place] [address] 72846- 4567 Sep, Opioid use disorder, severe, 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 ; Other ferry terminal agent (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 Z79.899 and Encounter for therapeutic drug level monitoring Z51.81 [facility] [place] [id number] [place] [address] 41910- 9270 Sep, [facility] [place] [id number] [place] [address] 24516- 7028 Sep, [facility] [place] [id number] [place] [address] [phone] Sep, Opioid use disorder, severe, 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 ; 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 ; Chronic kidney disease, stage 3 N18.3 ; Essential hypertension I10 and Irritable bowel syndrome with constipation K58.1 [facility] [address] [place] [address] Sep, Opioid use disorder, severe, in early remission F11.21 [facility] [address] [place] [address] Sep, Opioid use disorder, severe, in early remission F11.21 [facility], [place], [facility] [id number] [place] [phone] Sep, Opioid use disorder, moderate, dependence F11.20 [facility], [place], [facility] [address] [place] [phone] Sep, Opioid use disorder, moderate, dependence F11.20 [facility] [address] [place] [address] Sep, Opioid use disorder, severe, 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 [place] 759435- 3354 Sep, Opioid use disorder, severe, in early remission F11.21 [facility] [address] [place] [address] Aug, Opioid use disorder, severe, in early remission F11.[address] [address] Aug, Opioid use disorder, moderate, dependence F11.20 [facility] [address] [place] [address] Aug, Bug bite without infection, initial encounter W57.XXXA [address] [address] Aug, Opioid use disorder, moderate, dependence F11.20 [facility] [address] [place] [address] Aug, [address] [address] Aug, Opioid use disorder, severe, 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 ; Other intermediate (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 Z79.899 ; Encounter for therapeutic drug level monitoring Z51.81 and 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 [facility] [address] [place] [address] Aug, [facility] [place] [address] [place] [address]14- 5214 Aug, Opioid use disorder, moderate, dependence F11.20 ; Other intermediate (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 Z79.899 and Encounter for therapeutic drug level monitoring Z51.81 [facility] [place] [address] [place] [id number] [place] [address] 60499- 3936 Aug, [facility] [place] [id number] [place] [address] 53929- 7218 Aug, Non-intractable vomiting with nausea, unspecified vomiting type R11.2 [facility] [place] [id number] [place] [address] 17563- 2477 Aug, Opioid use disorder, moderate, dependence F11.20 and Non- intractable vomiting with nausea, unspecified vomiting type R11.2 [facility] [place] [id number] [place] [address] 35691- 2654 Aug, [facility] [place] [id number] [place] [address] 66591- 6762 Aug, Opioid use disorder, moderate, dependence F11.20 [facility] [place] [id number] [place] [address] 07973- 6797 Aug, [facility] [place] [id number] [place] [address] 92116- 2646 Jul, 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 and Opioid use disorder, moderate, dependence F11.20 [facility] [address] [place] [address] Jul, [facility] [place] [id number] [place] [address] 03501- 4418 Jul, [facility] [place] [id number] [place] [address] 39009- 6712 Jul, [facility] [place] [id number] [place] [address] 27672- 2882 Jul, Addiction to drug F19.20 and Chronic kidney disease, stage 3 N18.3 [facility] [address] [place] [address] 17 Jul, 2016 Counseling on substance use and abuse Z71.89 [facility] [place] [id number] [place] [address] 15589- 7999 Jul, Chronic kidney disease, stage 3 N18.3 [facility] [place] [address] [place] [address] 99938- 8659 Jul, 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 ; Diarrhea, unspecified type R19.7 and Essential hypertension I10 [facility] [place] [id number] [place] [address] 76455- 7183 Jul, [facility] [place] [address] [id number] [place] [address] 87825- 9591 Jun, [facility] [place] [id number] [place] [address] 25858- 1799 Jun, [facility] [place] [address] [id number] [place] [address] 25901- 8839 Apr, 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 [facility] [place] [address] [id number] [place] [address] 39520- 9470 Apr, Sore throat and laryngitis J06.0 and Non-intractable vomiting with nausea, unspecified vomiting type R11.2 [facility] [place] [address] [id number] [place] [address] 68677- 6866 Apr, [facility] [place] [address] [id number] [place] [address] 98087- 9095 Mar, [facility] [place] [address] [place] [id number] [place] [address] 33403- 9824 Jan, [facility] [place] [address] [place] [id number] [place] [address] 73507- 8583 Jan, [facility] [place] [address] [id number] [place] [address] 60661- 4954 Jan, [facility] [place] [address] [place] [id number] [place] [address] 85307- 3164 December, 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 ; Gastroparesis K31.84 ; Mixed hyperlipidemia E78.2 ; Chronic kidney disease, stage 3 N18.3 ; Dysthymia F34.1 and Acute bilateral low back pain without sciatica M54.5 [facility] [place] [address] 03804- 8041 December, [facility] [place] [address] 58258- 4426 December, [facility] [place] [address] 21040- 2539 Aug, Depression F32.9 and Gastroparesis K31.84 [facility] [place] [address] 03392- 0021 Aug, Gastroparesis K31.84 [place] [address] 27619- 1246 Jul, Recurrent UTI N39.0 ; Chronic kidney disease, stage 3 N18.3 and 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 [facility] [place] [address] 93944- 1558 Jul, [facility] [address] [id number] Jul, Dental examination Z01.20 and Dental caries K02.9 [place] [address] [place] [place] [id number] [place] [address] 52239- 7187 17 Jul, 2015 [facility] [id number] [place] [address] 16346 -7587 Jul, Dysuria R30.0 ; Urinary tract infection N39.0 and Nausea R11.0 [facility] [place] [address] [place] [place] [id number] [place] [address] 06374- 8503 Jun, Dysuria R30.0 [facility] [place] [address] 39142- 2931 Jun, Dysuria R30.0 [place] [address] 18602- 0419 Jun, Dysuria R30.0 [address] [place] [address] 90670- 4909 Jun, [place] [id number] [place] [address] 02165- 5516 Jun, Acute cystitis with hematuria N30.01 [place] [id number] [place] [address] 11181- 4654 May, [place] [id number] [place] [address] 45855- 5709 Apr, Diabetes mellitus without mention of complication, type I [ juvenile type], not stated as uncontrolled 250.01 ; Gastroparesis due to DM 250.60 ; Contraception management V25.9 and Renal insufficiency 593.9 [place] [id number] [place] [address] 84307- 2978 Apr, [place] [id number] [place] [address] 92601- 1994 Apr, [place] [id number] [place] [address] 40360- 2565 Mar, [place] [id number] [place] [address] 51838- 8695 Mar, Hyperlipidemia 272.4 and Hypertensive heart and chronic kidney disease, benign, without heart failure and with chronic kidney disease stage I through stage IV, or unspecified 404.10 [place] [id number] [place] [address] 45264- 9374 Mar, Hyperlipidemia 272.4 ; Hyponatremia 276.1 ; 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 ; Hypertensive heart and chronic kidney disease, benign, without heart failure and with chronic kidney disease stage I through stage IV, or unspecified 404.10 ; Proteinuria 791.0 and Chronic kidney disease (CKD), stage III (moderate) 585.3 [place] [id number] [place] [address] 17609- 1002 Mar, [place] [id number] [address]- 1053 Mar, Elevated blood sugar level 790.29 [facility] [place] [id number] [place] [address] 07751- 4305 Mar, Low grade squamous intraepithelial lesion (LGSIL) on cervical Pap smear 795.03 [place] [address] [address]- 9432 Mar, Amenorrhea 626.0 [facility] [place] [id number] [place] [address] 28071- 9774 15 Jan, 2015 Amenorrhea 626.0 ; Routine gynecological examination V72.31 and Screen for STD (sexually transmitted disease) V74.5 [place] [address] [address]- 5233 Jan, Amenorrhea 626.0 [place] [address] [place] [id number] [place] [address] 77025- 0111 08 Jan, 2015 Routine gynecological examination V72.31 ; Screen for STD ( sexually transmitted disease) V74.5 ; Pap test, as part of routine gynecological examination V76.2 ; Breast cancer screening V76.10 and Amenorrhea 626.0 [place] [address] [address]- 1761 December, [place] [address] [address]- 8010 Dec, [place] [address] [address]- 1418 Dec, [facility] [place] [address] [address]- 0189 30 Oct, 2014 [facility] [place] [address] [place] [id number] [place] [address] 74512- 9455 Oct, [facility] [place] [address] [address]- 7595 Oct, [facility] [place] [address] [place] [id number] [place] [address]- 9509 Oct, [facility] [place] [facility] [address] [id number] [place] [address]- 9352 Oct, [facility] [place] [facility] [address] [id number] [place] [address]- 2026 Oct, [facility] [place] [facility] [address] [id number] [place] [address]- 3994 Oct, [facility] [place] [facility] [address] [id number] [place] [address]- 8811 Oct, [facility] [place] [facility] [address] [id number] [place] [address]- 6837 Oct, [facility] [place] [facility] [address] [id number] [place] [address]- 1093 Oct, [facility] [place] [facility] [address] [id number] [place] [address]- 7253 Oct, [facility] [place] [facility] [address] [id number] [place] [address]- 2438 Sep, [facility] [place] [facility] [address] [id number] [place] [address]- 3686 Sep, [facility] [place] [facility] [address] [id number] [place] [address]- 8348 Sep, [facility] [place] [facility] [address] [id number] [place] [address]- 6263 Sep, [facility] [place] [facility] [address] [id number] [place] [address]- 8937 Sep, [facility] [place] [facility] [address] [id number] [place] [address]- 8101 Sep, [facility] [place] [facility] [address] [id number] [place] [address]- 0534 Sep, [facility] [place] [facility] [address] [id number] [place] [address]- 2628 Sep, [facility] [place] [facility] [address] [id number] [place] [address]- 0198 15 Sep, 2014 [facility] [place] [facility] [address] [id number] [place] [address]- 1706 Sep, [facility] [place] [facility] [address] [id number] [place] [address]- 7451 Sep, [facility] [place] [facility] [address] [id number] [place] [address]- 5815 Sep, [facility] [place] [facility] [address] [id number] [place] [address]- 0318 Sep, [facility] [place] [facility] [address] [id number] [place] [address]- 1425 Sep, [facility] [place] [facility] [address] [id number] [place] [address]- 4826 Sep, [facility] [place] [facility] [address] [id number] [place] [address]- 8699 Sep, [facility] [place] [facility] [address] [id number] [place] [address]- 0203 Sep, [facility] [place] [facility] [address] [id number] [place] [address]- 2264 Sep, [facility] [place] [facility] [address] [id number] [place] [address]- 8874 Sep, [facility] [place] [facility] [address] [id number] [address]- 0688 Sep, [facility] [place] [facility] [address] [id number] [place] [address]- 1423 Aug, [facility] [place] [facility] [address] [id number] [place] [address]- 5966 Aug, [facility] [place] [facility] [address] [id number], [place] [address]- 8403 Aug, [facility] [place] [facility] [address] [id number], [place] [address]- 5210 09 Aug, 2014 [facility] [place] [facility] [address] [id number] [place] [address]- 9515 08 Aug, 2014 [facility] [place] [facility] [address] [id number] [place] [address]- 6487 07 Aug, 2014 [facility] [place] [facility] [address] [facility] [id number] [place] [address]- 5910 Aug, [facility] [place] [facility] [address] [id number] [place] [address]- 6666 04 Aug, 2014 [facility] [place] [facility] [address] [id number] [place] [address]- 4389 Aug, [facility] [place] [facility] [address] [id number] [place] [address]- 5088 Aug, [facility] [place] [facility] [address] [facility] [id number] [place] [address]- 0980 Aug, [facility] [place] [facility] [address] [id number] [place] [address]- 8189 Aug, [facility] [place] [facility] [address] [id number] [place] [address]- 3670 Jul, [facility] [place] [facility] [address] [facility] [id number] [place] [address]- 1134 Jul, [facility] [place] [facility] [address] [id number] [place] [address]- 9875 Jul, [facility] [place] [facility] [address] [id number], [place] [address]- 0541 Jul, [facility] [place] [facility] [address] [id number] [place] [address]- 3775 17 Jul, 2014 [facility] [place] [facility] [address] [id number] [place] [address]- 7819 17 Jul, 2014 [facility] [place] [facility] [address] [facility] [id number] [place] [address]- 7417 Jul, [facility] [place] [facility] [address] [id number] [place] [address]- 6284 Jul, [facility] [place] [facility] [address] [id number] [place] [address]- 0375 Jul, [facility] [place] [facility] [address] [id number] [place] 4929 Jul, [facility] [place] [facility] [address] [id number] [place] 1154 Jun, [facility] [place] [facility] [address] [id number] [place] [address]- 4884 Jun, [facility] [place] [facility] [address] [id number] [place] [address]- 5502 Jun, [facility] [place] [facility] [address] [id number] [place] [address]- 9735 Jun, [facility] [place] [facility] [address] [id number] [place] [address]- 1741 Jun, [facility] [place] [facility] [address] [id number] [place] [address]- 1149 30 Jun, 2014 [facility] [place] [facility] [address] [id number] [place] [address]- 9362 Jun, [facility] [place] [facility] [address] [id number] [place] [address]- 5986 15 Jun, 2014 [facility] [place] [facility] [address] [id number] [place] [address]- 1082 22 May, 2014 [facility] [place] [facility] [address] [id number] [place] [address]- 7001 22 May, 2014 [facility] [place] [facility] [address] [id number] [place] [address]- 1649 18 May, 2014 [facility] [place] [facility] [address] [id number] [place] [address]- 1812 18 May, 2013 [facility] [place] [facility] [address] [id number] [place] [address]- 8758 May, [facility] [place] [facility] [address] [id number] [place] [address]- 5081 May, [facility] [place] [facility] [address] [id number] [place] [address]- 4069 May, [facility] [place] [facility] [address] [id number] [place] [address]- 9994 May, [facility] [place] [facility] [address] [id number] [place] [address]- 0358 Apr, [facility] [place] [facility] [address] [id number] [place] [address]- 9292 Apr, [facility] [place] [facility] [address] [id number] [place] [address]- 1726 Apr, [facility] [place] [facility] [address] [id number] [place] [address]- 0319 Apr, [facility] [place] [facility] [address] [id number] [place] [address]- 1845 Mar, [facility] [place] [facility] [address] [id number] [place] [address]- 4287 Mar, [facility] [place] [facility] [address] [id number] [place] [address]- 2815 Mar, [facility] [place] [facility] [address] [id number] [place] [address]- 7041 Mar, [facility] [place] [facility] [address] [id number] [place] [address]- 2621 Mar, [facility] [place] [facility] [address] [id number] [place] [address]- 9107 Mar, [facility] [place] [facility] [address] [id number] [place] [address]- 4559 Jan, [facility] [place] [facility] [address] [id number] [place] [address]- 1195 Jan, [facility] [place] [facility] [address] [id number] [place] [address]- 1605 Jan, [facility] [place] [facility] [address] [id number] [place] [address]- 5903 Jan, [facility] [place] [facility] [address] [id number] [place] [address]- 5559 Jan, [facility] [place] [facility] [address] [id number] [place] [address]- 6292 Jan, [facility] [place] [facility] [address] [id number] [place] [address]- 8812 Jan, [facility] [place] [facility] [address] [id number] [place] [address]- 1558 Jan, [facility] [place] [facility] [address] [id number] [place] [address]- 7127 Jan, [facility] [place] [facility] [address] [id number] [place] [address]- 0514 Jan, [facility] [place] [facility] [address] [id number] [place] [address]- 3285 Jan, [facility] [place] [facility] [address] [id number] [place] [address]- 6673 Jan, [facility] [place] [facility] [address] [id number] [place] [address]- 1755 December, [facility] [place] [facility] [address] [id number] [place] [address]- 2510 December, [facility] [place] [facility] [address] [id number] [place] [address]- 1407 December, [facility] [place] [facility] [address] [id number] [place] [address]- 6544 December, [facility] [place] [facility] [address] [id number] [place] [address]- 2841 Dec, [facility] [place] [facility] [address] [id number] [place] [address] Dec, [facility] [place] [facility] [address] [id number] [place] [address] Dec, [facility] [place] [facility] [address] [id number] [place] [address] Dec, [facility] [place] [facility] [address] [id number] [place] [address] Dec, [facility] [place] [facility] [address] [id number] [place] [address] Dec, [facility] [place] [facility] [address] [id number] [place] [address] Dec, [facility] [place] [facility] [address] [id number] [place] [address] Dec, [facility] [place] [facility] [address] [id number] [place] [address] Dec, [facility] [place] [facility] [address] [id number] [place] [address] Dec, [facility] [place] [facility] [address] [id number] [place] [address] Dec, [facility] [place] [facility] [address] [id number] [place] [address] Dec, [facility] [place] [facility] [address] [id number] [place] [address] Dec, [facility] [place] [facility] [address] [id number] [place] [address] Dec, [facility] [place] [facility] [address] [id number] [place] [address] Oct, [facility] [place] [facility] [address] [id number] [place] [address] Oct, [facility] [place] [facility] [address] [id number] [place] [address] Oct, [facility] [place] [facility] [address] [id number] [place] [address] 29 Oct, 2013 [facility] [address] [id number] [place] [address] Oct, [facility] [place] [facility] [address] [id number] [place] [address] Oct, [facility] [place] [facility] [address] [id number] [place] [id number] Oct, [facility] [place] [facility] [address] [id number] [place] [address] Oct, [facility] [address] [id number] [place] [address] Oct, [facility] [address] [id number] [place] [address] Oct, [facility] [address] [id number] [place] [address] Sep, [facility] [place] [facility] [address] [id number] [place] [address] Sep, [facility] [address] [id number] [place] [address] Sep, [facility] [place] [facility] [address] [id number] [place] [address] Sep, [facility] [address] [id number] [place] [address] Sep, [facility] [place] [facility] [address] [id number], [place] [address] Sep, [facility] [place] [facility] [address] [id number] [place] [address] Aug, [facility] [place] [facility] [address] [id number] [place] [address] Aug, [facility] [place] [facility] [address] [id number] [place] [address] Jul, [facility] [place] [facility] [address] [facility] [id number] [place] [address] Jul, [facility] [place] [address] [facility] [id number], [place] [address] Jul, [facility] [place] [address] [facility] [id number], [place] [address] Jul, [facility] [place] [address] [facility] [id number], [place] [address] Jul, IMMUNIZATIONS No Known Immunizations SOCIAL HISTORY Never Assessed REASON FOR VISIT Medication PLAN OF CARE VITAL SIGNS MEDICATIONS Unknown [...]
--- OUTSIDE RECORDS SUMMARY | 2018-08-30 20:26 | XMS REPORT ---
Author Author NOEMY MORGAN Organization [facility] Address [address] 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 Active 30122339 Problem Chronic kidney disease, stage 3 N18.3 Active 180690346 Problem CHI I (cervical intraepithelial neoplasia I) N87.0 Active 207407116 Problem Mild episode of recurrent major depressive disorder F33.0 Active 058865062 Problem Addiction to drug F19.20 Active 682271623 Problem Essential hypertension I10 Active 08252420 Problem Opioid use disorder, severe, in sustained remission F11.21 Active 52865202 Problem Irritable bowel syndrome with constipation K58.1 Active 827425362 ALLERGIES No Information ENCOUNTERS Encounter Location Date Diagnosis [facility] [id number] [place] [address] 29750- 3982 May, Opioid use disorder, severe, in early remission F11.21 [facility] [id number] [place] [address] 94171- 5534 24 May, 2018 [facility] [id number] [place] [address] 40350- 5534 May, [facility] [id number] [place] [address] 09624- 6817 May, Opioid use disorder, severe, in early remission F11.21 [facility] [address] [place] [address] May, Opioid use disorder, severe, in sustained remission F11.21 [facility] [id number] [place] [address] 61971- 7067 Apr, [facility] [id number] [place] [address] 99126- 1174 Apr, [facility] [id number] [place] [address] 09543- 0423 Apr, [facility] [id number] [place] [address] 95782- 1701 Apr, Opioid use disorder, severe, in early remission F11.21 [facility] [address] [address] Apr, Bacterial conjunctivitis of left eye H10.9 [facility] [id number] [place] [address] 22846- 2420 Apr, [facility] [id number] [place] [address] 99362- 4083 Apr, [facility] [id number] [place] [address] 86083- 8883 Mar, Essential hypertension I10 and Irritable bowel syndrome with constipation K58.1 [facility] [id number] [place] [address] 59946- 1633 Mar, [facility] [id number] [place] [address] 95398- 5114 Mar, Chronic kidney disease, stage 3 N18.3 ; 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 ; Opioid use disorder, severe, in sustained remission F11.21 and Mixed hyperlipidemia E78.2 [facility] [id number] [place] [address] 79576- 3542 Mar, Mixed hyperlipidemia E78.2 [facility] [id number] [place] [address] 97109- 7737 Mar, Opioid use disorder, severe, 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 [facility] [address] [place] [address] 61133- 8125 Mar, [facility] [address] [place] [address] Mar, Opioid use disorder, severe, in sustained remission F11.21 [facility] [address] [place] [address] 68861- 1055 Jan, Opioid use disorder, severe, in early remission F11.21 [facility] [id number] [place] [address] 95322- 7564 December, Opioid use disorder, severe, in early remission F11.21 [facility] [address] [place] [address] December, Opioid use disorder, severe, in sustained remission F11.21 [facility] [id number] [place] [address] 71828- 6383 December, Opioid use disorder, severe, in sustained remission F11.21 and 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 [facility] [id number] [place] [address] 93694- 1638 December, Opioid use disorder, severe, in early remission F11.21 [facility] [address] [place] [address] Dec, Opioid use disorder, severe, in sustained remission F11.21 [facility] [address] [place] [id number] [place] [address] 99193- 0436 Dec, 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 ; Unprotected sexual intercourse Z72.51 ; Pain of left thumb M79.645 ; Mixed hyperlipidemia E78.2 ; Gastroparesis K31.84 ; Essential hypertension I10 and Irritable bowel syndrome with constipation K58.1 [facility] [address] [place] [address] 27057- 4747 Dec, Opioid use disorder, severe, in early remission F11.21 [facility] [id number] [place] [address] 35941- 9924 Oct, [facility] [address] [address] 2[address] Oct, Opioid use disorder, severe, in early remission F11.21 [facility] [address] [address] 5796 Oct, [facility] [address] [place] [address] 86119- 0956 Oct, Opioid use disorder, severe, in early remission F11.21 [facility] [address] [address] 46[address] Oct, [facility] [id number] [place] [address] 80159- 7481 Oct, [facility] [address] [place] [address] Oct, Opioid use disorder, severe, in sustained remission F11.21 [facility] [address] [address] 4603 Sep, [facility] [address] [place] [address] 35964- 1422 Sep, [facility] [id number] [place] [address] 46398- 4833 Sep, Opioid use disorder, severe, in early remission F11.21 [facility] [address] [address]- 0803 Aug, Opioid use disorder, severe, in early remission F11.21 [facility] [address] [address] 2891 Jul, [facility] [id number] [place] [address] 79809- 5191 Jul, Chronic kidney disease, stage 3 N18.3 ; Dysthymia F34.1 and Opioid use disorder, severe, in sustained remission F11.21 [facility] [address] [place] [address] Jul, Opioid use disorder, severe, in sustained remission F11.21 [facility] [address] [place] [address] 97185- 4453 Jul, Long-term use of high-risk medication Z79.899 and Chronic kidney disease, stage 3 N18.3 [facility] [id number] [place] [address] 52201- 7967 Jul, Opioid use disorder, severe, in early remission F11.21 [facility] [id number] [place] [address] 19636- 8178 Jul, [facility] [id number] [place] [address] 36591- 8095 Jun, [facility] [id number] [place] [address] 15545- 1361 Jun, [facility] [id number] [place] [address] 00291- 7663 Jun, Opioid use disorder, moderate, dependence F11.20 and Opioid use disorder, severe, 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 [facility] [id number] [place] [address] 59103- 1224 Jun, [facility] [id number] [place] [address] 94339- 1386 Jun, Long-term use of high-risk medication Z79.899 [facility] [id number] [place] [address] 28323- 7070 Jun, CHI I (cervical intraepithelial neoplasia I) N87.0 [facility] [id number] [place] [address] 74109- 6267 May, Opioid use disorder, severe, in early remission F11.21 [facility] [id number] [place] [address] 16785- 9328 18 May, 2017 Chronic kidney disease, stage 3 N18.3 [facility] [id number] [place] [address] 80821- 4032 14 May, 2017 Chronic kidney disease, stage 3 N18.3 [facility] [address] [place] [address] 05 May, 2017 Opioid use disorder, severe, in sustained remission F11.21 [facility] [id number] [place] [address] 40553- 7383 Apr, LGSIL on Pap smear of cervix R87.612 [facility] [address] [place] [address] Apr, [facility] [id number] [place] [address] 55099- 3834 Apr, Opioid use disorder, severe, in early remission F11.21 [facility] [id number] [place] [address] 36650- 4639 Apr, Opioid use disorder, severe, in early remission F11.21 [facility] [id number] [place] [address] 23061- 9013 Apr, Opioid use disorder, severe, in early remission F11.21 [facility] [id number] [place] [address] 37026- 6290 18 Apr, 2017 Opioid use disorder, severe, in early remission F11.21 [facility] [id number] [place] [address] 98942- 6563 14 Apr, 2017 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 [facility] [id number] [place] [address] 40182- 2444 Apr, Opioid use disorder, severe, in early remission F11.21 [facility] [address] [place] [address] Apr, Opioid use disorder, severe, in sustained remission F11.21 [facility] [id number] [place] [address] 46040- 4837 09 Apr, 2017 Opioid use disorder, severe, in early remission F11.21 [facility] [id number] [place] [address] 91137- 5443 Apr, Mild episode of recurrent major depressive disorder F33.0 and Right acute serous otitis media, recurrence not specified H65.01 [facility] [id number] [place] [address] 61023- 2385 Mar, [facility] [id number] [place] [address] 69091- 2454 Mar, Opioid use disorder, severe, in early remission F11.21 [facility] [id number] [place] [address] 59393- 1960 Mar, [facility] [address] [place] [address] Mar, Opioid use disorder, severe, in sustained remission F11.21 [facility] [address] [place] [address] Mar, Opioid use disorder, severe, in sustained remission F11.21 [facility] [id number] [place] [address] 43658- 4132 Mar, Opioid use disorder, severe, in early remission F11.21 [facility] [id number] [place] [address] 94894- 5134 Jan, Opioid use disorder, severe, 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 [facility] [address] [place] [address] Jan, Opioid use disorder, severe, in sustained remission F11.21 [facility] [address] [place] [address] Jan, Opioid use disorder, severe, in sustained remission F11.21 [facility] [id number] [place] [address] 65157- 2574 Jan, Opioid use disorder, severe, in early remission F11.21 [facility] [address] [place] [address] Jan, Opioid use disorder, severe, in sustained remission F11.21 [facility] [id number] [place] [address] 93952- 3349 December, Opioid use disorder, severe, 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 [facility] [address] [place] [address] December, Opioid use disorder, severe, in sustained remission F11.21 [facility] [id number] [place] [address] 55272- 0612 December, Routine gynecological examination Z01.419 and Chronic kidney disease, stage [address] 83610- 2869 December, Chronic kidney disease, stage 3 N18.3 ; 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 ; Gastroparesis K31.84 ; Essential hypertension I10 and Irritable bowel syndrome with constipation K58.1 [facility] [address] [place] [address] December, Opioid use disorder, severe, in sustained remission F11.[address] 38312- 4644 December, Opioid use disorder, severe, in early remission F11.21 [facility] [address] [place] [address] December, Opioid use disorder, severe, in sustained remission F11.[address] 08331- 2249 December, Encounter for therapeutic drug level monitoring Z51.81 [facility] [address] [place] [address] December, Opioid use disorder, severe, in sustained remission F11.21 [facility] [address] [place] [address] Dec, Opioid use disorder, severe, in sustained remission F11.21 [facility] [address] [place] [id number] [place] [address] 95298- 8930 Dec, Opioid use disorder, severe, in early remission F11.21 [facility] [address] [place] [id number] [place] [address] 94728- 9629 Dec, [facility] [address] [place] [address] Dec, Opioid use disorder, severe, in sustained remission F11.21 [facility] [id number] [place] [address] 41901- 2007 Dec, Opioid use disorder, severe, 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 [facility] [address] [place] [address] 06 Dec, 2016 Opioid use disorder, severe, in sustained remission F11.21 [facility] [id number] [place] [address] 31305- 5392 Dec, 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 [facility] [id number] [place] [address] 69085- 4813 Dec, Opioid use disorder, severe, in sustained remission F11.21 ; Encounter for therapeutic drug level monitoring Z51.81 and 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 [facility] [address] [place] [address] 31 Oct, 2016 Opioid use disorder, severe, in sustained remission F11.21 [facility] [id number] [place] [address] 69049- 8301 23 Oct, 2016 Opioid use disorder, severe, 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 [facility] [id number] [place] [address] 17711- 6637 15 Oct, 2016 [facility] [address] [place] [address] Oct, Opioid use disorder, severe, in sustained remission F11.21 [facility] [id number] [place] [address] 37194- 1716 15 Oct, 2016 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 [facility] [id number] [place] [address] 30727- 0920 14 Oct, 2016 Routine gynecological examination Z01.419 [facility] [id number] [place] [address] 85960- 7868 07 Oct, 2016 Opioid use disorder, severe, 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 [facility] [id number] [place] [address] 98866- 8172 Oct, Opioid use disorder, severe, in early remission F11.21 [facility] [id number] [place] [address] 63920- 9846 Oct, Opioid use disorder, severe, in early remission F11.21 [facility] [address] [place] [address] Oct, Opioid use disorder, severe, in sustained remission F11.21 [facility] [id number] [place] [address] 60025- 2799 Oct, Opioid use disorder, severe, in early remission F11.21 [facility] [place] [address] 39718- 2926 23 Oct, 2016 Opioid use disorder, severe, in early remission F11.21 [facility] [address] [place] [address] Oct, Opioid use disorder, severe, in sustained remission F11.21 [facility] [id number] [place] [address] 19962- 4860 20 Oct, 2016 Opioid use disorder, severe, in sustained remission F11.21 ; Encounter for therapeutic drug level monitoring Z51.81 and 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 [facility] [id number] [place] [address] 87885- 4232 16 Oct, 2016 [facility] [address] [place] [address] 14 Oct, 2016 Opioid use disorder, severe, in early remission F11.21 [facility] [address] [place] [address] 10 Oct, 2016 Opioid use disorder, severe, in early remission F11.21 [facility] [id number] [place] [address] 70617- 0119 09 Oct, 2016 Opioid use disorder, severe, in early remission F11.21 [facility] [id number] [place] [address] 66664- 9041 08 Oct, 2016 [place] [address] [address]- 3338 Oct, [facility] [id number] [place] [address] 96736- 1976 Oct, [facility] [address] [place] [address] Oct, Opioid use disorder, severe, in early remission F11.21 [facility] [id number] [place] [address] 95468- 7624 Sep, Opioid use disorder, severe, in early remission F11.21 [facility] [address] [place] [address] Sep, Opioid use disorder, severe, in early remission F11.21 [facility] [id number] [place] [address] 82203- 8652 Sep, Opioid use disorder, severe, in early remission F11.21 ; 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 and Encounter for therapeutic drug level monitoring Z51.81 [facility] [id number] [place] [address] 62132- 8046 Sep, [facility] [id number] [place] [address] 81519- 3218 Sep, [facility] [address] [place] [address] 66415- 3279 Sep, Opioid use disorder, severe, 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 ; 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 ; Chronic kidney disease, stage 3 N18.3 ; Essential hypertension I10 and Irritable bowel syndrome with constipation K58.1 [facility] [address] [place] [address] Sep, Opioid use disorder, severe, in early remission F11.21 [facility] [address] [place] [address] Sep, Opioid use disorder, severe, in early remission F11.21 [facility] [id number] [place] [address] 63894- 9133 Sep, Opioid use disorder, moderate, dependence F11.20 [facility] [address] [place] [address] 20008- 7340 Sep, Opioid use disorder, moderate, dependence F11.20 [facility] [address] [place] [address] Sep, Opioid use disorder, severe, 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 [place] [address]24- 0777 Sep, Opioid use disorder, severe, in early remission F11.21 [facility] [address] [place] [address] Aug, Opioid use disorder, severe, in early remission F11.[address] 16521- 0353 Aug, Opioid use disorder, moderate, dependence F11.20 [facility] [address] [place] [address] 34167 -5089 Aug, Bug bite without infection, initial encounter W57.XXXA [address] 54024- 9307 Aug, Opioid use disorder, moderate, dependence F11.20 [facility] [address] [place] [address] Aug, [address] 82176- 9755 Aug, Opioid use disorder, severe, 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 ; Other detention (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 Z79.899 ; Encounter for therapeutic drug level monitoring Z51.81 and 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 [facility] [address] [place] [address] Aug, [facility] [address] [place] [address] 50617- 3468 Aug, Opioid use disorder, moderate, dependence F11.20 ; Other detention (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 Z79.899 and Encounter for therapeutic drug level monitoring Z51.81 [facility] [id number] [place] [address] 38789- 9688 Aug, [facility] [id number] [place] [address] 68173- 5469 Aug, Non-intractable vomiting with nausea, unspecified vomiting type R11.2 [facility] [id number] [place] [address] 60677- 3483 Aug, Opioid use disorder, moderate, dependence F11.20 and Non- intractable vomiting with nausea, unspecified vomiting type R11.2 [facility] [id number] [place] [address] 03564- 3429 Aug, [facility] [id number] [place] [address] 48425- 0711 Aug, Opioid use disorder, moderate, dependence F11.20 [facility] [id number] [place] [address] 18572- 7180 Aug, [facility] [id number] [place] [address] 40212- 2912 Jul, 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 and Opioid use disorder, moderate, dependence F11.20 [facility] [address] [place] [address] Jul, [facility] [id number] [place] [address] 39552- 8926 Jul, [facility] [id number] [place] [address] [phone] Jul, [facility] [id number] [place] [address] [id number]- [phone] Jul, Addiction to drug F19.20 and Chronic kidney disease, stage 3 N18.3 [facility] [address] [place] [address] 17 Jul, 2016 Counseling on substance use and abuse Z71.89 [facility] [id number] [place] [id number]- 0146 Jul, Chronic kidney disease, stage 3 N18.3 [facility] [id number] [place] [address] [id number]- [phone] Jul, 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 ; Diarrhea, unspecified type R19.7 and Essential hypertension I10 [facility] [id number] [place] [address] 84596- 3130 Jul, [facility] [id number] [place] [address] 40839- 0435 Jun, [facility] [id number] [place] [address] 70006- 8820 Jun, [facility] [id number] [place] [address] 19271- 2838 Apr, 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 [facility] [id number] [place] [address] 45332- 0538 Apr, Sore throat and laryngitis J06.0 and Non-intractable vomiting with nausea, unspecified vomiting type R11.2 [facility] [id number] [place] [address] 67202- 1011 Apr, [facility] [id number] [place] [address] 39566- 4718 Mar, [facility] [id number] [place] [address] 37316- 3271 Jan, [facility] [id number] [place] [address] 20730- 0442 Jan, [facility] [id number] [place] [address] 40850- 5859 Jan, [facility] [id number] [place] [address] 30069- 9390 December, 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0 ; Chronic kidney disease, stage 3 N18.3 and 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 [facility] [address] 27451- 3398 Jul, [facility] [address] [id number] Jul, Dental examination Z01.20 and Dental caries K02.9 [place] [id number] [place] [address] 54510- 3765 17 Jul, 2015 [facility] [id number] [place] [address] 96325 -3750 Jul, Dysuria R30.0 ; Urinary tract infection N39.0 and Nausea R11.0 [facility] [id number] [place] [address] 71211- 4799 Jun, Dysuria R30.0 [facility] [address] 71511- 5248 Jun, Dysuria R30.0 [place] [address] 42091- 6525 Jun, Dysuria R30.[id number] [place] [address] 33857- 7329 Jun, [place] [id number] [place] [address] 87733- 2113 Jun, Acute cystitis with hematuria N30.01 [address] [id number] [place] [address] 24000- 3195 May, [address] [id number] [place] [address] 65898- 5710 Apr, Diabetes mellitus without mention of complication, type I [ juvenile type], not stated as uncontrolled 250.01 ; Gastroparesis due to DM 250.60 ; Contraception management V25.9 and Renal insufficiency 593.9 [address] [id number] [place] [address] 82457- 3856 Apr, [address] [id number] [place] [address] 78287- 4793 Apr, [address] [id number] [place] [address] 82351- 4269 Mar, [address] [id number] [place] [address] 81536- 5222 Mar, Hyperlipidemia 272.4 and Hypertensive heart and chronic kidney disease, benign, without heart failure and with chronic kidney disease stage I through stage IV, or unspecified 404.10 [address] [id number] [place] [address] 41528- 5686 Mar, Hyperlipidemia 272.4 ; Hyponatremia 276.1 ; 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 ; Hypertensive heart and chronic kidney disease, benign, without heart failure and with chronic kidney disease stage I through stage IV, or unspecified 404.10 ; Proteinuria 791.0 and Chronic kidney disease (CKD), stage III (moderate) 585.3 [address] [id number] [place] [address] 12699- 8881 Mar, [address] [id number] [address] 1952 Mar, Elevated blood sugar level 790.29 [facility] [id number] [place] [address] 89101- 5719 Mar, Low grade squamous intraepithelial lesion (LGSIL) on cervical Pap smear 795.03 [place] [address] [address]- 4509 Mar, Amenorrhea 626.0 [facility] [id number] [place] [address] 59146- 3229 15 Jan, 2015 Amenorrhea 626.0 ; Routine gynecological examination V72.31 and Screen for STD (sexually transmitted disease) V74.5 [place] [address] [address]- 8009 Jan, Amenorrhea 626.0 [place] [id number] [place] [address] 33886- 5348 08 Jan, 2015 Routine gynecological examination V72.31 ; Screen for STD ( sexually transmitted disease) V74.5 ; Pap test, as part of routine gynecological examination V76.2 ; Breast cancer screening V76.10 and Amenorrhea 626.0 [place] [address] [address]- 6596 December, [place] [address] [address]- 5783 Dec, [place] [address] [address]- 9944 Dec, [facility] [address] [address]- 2313 30 Oct, 2014 [facility] [id number] [place] [address] 56247- 5575 Oct, [facility] [address] [address]- 7226 Oct, [facility] [id number] [place] [address]- 0937 Oct, [facility] [place] [facility] [address] [id number] [place] [address]- 7949 Oct, [facility] [place] [facility] [address] [id number] [place] [address]- 2191 Oct, [facility] [place] [facility] [address] [id number] [place] [address]- 3479 Oct, [facility] [place] [facility] [address] [id number] [place] [address]- 3947 Oct, [facility] [place] [facility] [address] [id number] [place] [address]- 1183 Oct, [facility] [place] [facility] [address] [id number] [place] [address]- 5379 Oct, [facility] [place] [facility] [address] [id number] [place] [address]- 0102 Oct, [facility] [place] [facility] [address] [id number] [place] [address]- 6404 Sep, [facility] [place] [facility] [address] [id number] [place] [address]- 4148 Sep, [facility] [place] [facility] [address] [id number] [place] [address]- 7333 Sep, [facility] [place] [facility] [address] [id number] [place] [address]- 5390 Sep, [facility] [place] [facility] [address] [id number] [place] [address]- 1045 Sep, [facility] [place] [facility] [address] [id number] [place] [address]- 7370 Sep, [facility] [place] [facility] [address] [id number] [place] [address]- 0552 Sep, [facility] [place] [facility] [address] [id number] [place] [address]- 9342 Sep, [facility] [place] [facility] [address] [id number] [place] [address]- 3112 15 Sep, 2014 [facility] [place] [facility] [address] [id number] [place] [address]- 5573 Sep, [facility] [place] [facility] [address] [id number] [place] [address]- 3514 Sep, [facility] [place] [facility] [address] [id number] [place] [address]- 5620 Sep, [facility] [place] [facility] [address] [id number] [place] [address]- 8055 Sep, [facility] [place] [facility] [address] [id number] [place] [address]- 1874 Sep, [facility] [place] [facility] [address] [id number] [place] [address]- 4266 Sep, [facility] [place] [facility] [address] [id number] [place] [address]- 6787 Sep, [facility] [place] [facility] [address] [id number] [place] [address]- 1320 Sep, [facility] [place] [facility] [address] [id number] [place] [address]- 2938 Sep, [facility] [place] [facility] [address] [id number] [place] [address]- 9098 Sep, [facility] [place] [facility] [address] [id number], [place] [address]- 4487 Sep, [facility] [place] [facility] [address] [id number] [place] [address]- 4044 Aug, [facility] [place] [facility] [address] [id number] [place] [address]- 1696 Aug, [facility] [place] [facility] [address] [id number], [place] [address]- 0910 Aug, [facility] [place] [facility] [address] [id number], [place] [address]- 8743 09 Aug, 2014 [facility] [place] [facility] [address] [id number] [place] [address]- 3792 08 Aug, 2014 [facility] [place] [facility] [address] [id number] [place] [address]- 8672 07 Aug, 2014 [facility] [place] [facility] [address] [facility] [id number] [place] [address]- 1170 Aug, [facility] [place] [facility] [address] [id number] [place] [address]- 1258 04 Aug, 2014 [facility] [place] [facility] [address] [id number] [place] [address]- 5569 Aug, [facility] [place] [facility] [address] [id number] [place] [address]- 7696 Aug, [facility] [place] [facility] [address] [facility] [id number] [place] [address]- 0685 Aug, [facility] [place] [facility] [address] [id number] [place] [address]- 2246 Aug, [facility] [place] [facility] [address] [id number] [place] [address]- 2867 Jul, [facility] [place] [facility] [address] [facility] [id number] [place] [address]- 6239 Jul, [facility] [place] [facility] [address] [id number] [place] [address]- 7229 Jul, [facility] [place] [facility] [address] [id number], [place] [address]- 4289 Jul, [facility] [place] [facility] [address] [id number] [place] [address]- 9913 17 Jul, 2014 [facility] [place] [facility] [address] [id number] [place] [address]- 1405 17 Jul, 2014 [facility] [place] [facility] [address] [facility] [id number] [place] [address]- 2421 Jul, [facility] [place] [facility] [address] [id number] [place] [address]- 2045 Jul, [facility] [place] [facility] [address] [id number] [place] [address]- 8182 Jul, [facility] [place] [facility] [address] [id number] [place] 5051 Jul, [facility] [place] [facility] [address] [id number] [place] 2967 Jun, [facility] [place] [facility] [address] [id number] [place] [address]- 1792 Jun, [facility] [place] [facility] [address] [id number] [place] [address]- 6820 Jun, [facility] [place] [facility] [address] [id number] [place] [address]- 1999 Jun, [facility] [place] [facility] [address] [id number] [place] [address]- 2902 Jun, [facility] [place] [facility] [address] [id number] [place] [address]- 1029 30 Jun, 2014 [facility] [place] [facility] [address] [id number] [place] [address]- 7739 Jun, [facility] [place] [facility] [address] [id number] [place] [address]- 8053 15 Jun, 2014 [facility] [place] [facility] [address] [id number] [place] [address]- 6769 22 May, 2014 [facility] [place] [facility] [address] [id number] [place] [address]- 8281 22 May, 2014 [facility] [place] [facility] [address] [id number] [place] [address]- 2667 18 May, 2014 [facility] [place] [facility] [address] [id number] [place] [address]- 7988 18 May, 2013 [facility] [place] [facility] [address] [id number] [place] [address]- 1953 May, [facility] [place] [facility] [address] [id number] [place] [address]- 6713 May, [facility] [place] [facility] [address] [id number] [place] [address]- 2965 May, [facility] [place] [facility] [address] [id number] [place] [address]- 4569 May, [facility] [place] [facility] [address] [id number] [place] [address]- 5023 Apr, [facility] [place] [facility] [address] [id number] [place] [address]- 5927 Apr, [facility] [place] [facility] [address] [id number] [place] [address]- 8121 Apr, [facility] [place] [facility] [address] [id number] [place] [address]- 1071 Apr, [facility] [place] [facility] [address] [id number] [place] [address]- 3253 Mar, [facility] [place] [facility] [address] [id number] [place] [address]- 2397 Mar, [facility] [place] [facility] [address] [id number] [place] [address]- 7410 Mar, [facility] [place] [facility] [address] [id number] [place] [address]- 6261 Mar, [facility] [place] [facility] [address] [id number] [place] [address]- 5002 Mar, [facility] [place] [facility] [address] [id number] [place] [address]- 2196 Mar, [facility] [place] [facility] [address] [id number] [place] [address]- 9992 Jan, [facility] [place] [facility] [address] [id number] [place] [address]- 2698 Jan, [facility] [place] [facility] [address] [id number] [place] [address]- 4003 Jan, [facility] [place] [facility] [address] [id number] [place] [address]- 5116 Jan, [facility] [place] [facility] [address] [id number] [place] [address]- 1273 Jan, [facility] [place] [facility] [address] [id number] [place] [address]- 4461 Jan, [facility] [place] [facility] [address] [id number] [place] [address]- 5149 Jan, [facility] [place] [facility] [address] [id number] [place] [address]- 5399 Jan, [facility] [place] [facility] [address] [id number] [place] [address]- 3790 Jan, [facility] [place] [facility] [address] [id number] [place] [address]- 1699 Jan, [facility] [place] [facility] [address] [id number] [place] [address]- 6293 Jan, [facility] [place] [facility] [address] [id number] [place] [address]- 3961 Jan, [facility] [place] [facility] [address] [id number] [place] [address]- 6128 December, [facility] [place] [facility] [address] [id number] [place] [address]- 4191 December, [facility] [place] [facility] [address] [id number] [place] [address]- 4426 December, [facility] [place] [facility] [address] [id number] [place] [address]- 8866 December, [facility] [place] [facility] [address] [id number] [place] [address]- 3791 Dec, [facility] [place] [facility] [address] [id number] [place] [address]- 8817 Dec, [facility] [place] [facility] [address] [id number] [place] [address]- 0671 Dec, [facility] [place] [facility] [address] [id number] [place] [address]- 0939 Dec, [facility] [place] [facility] [address] [id number] [place] [address]- 2911 Dec, [facility] [place] [facility] [address] [id number] [place] [address]- 3335 Dec, [facility] [place] [facility] [address] [id number] [place] [address]- 7085 Dec, [facility] [place] [facility] [address] [id number] [place] [address]- 2291 Dec, [facility] [place] [facility] [address] [id number] [place] [address]- 1892 Dec, [facility] [place] [facility] [address] [id number] [place] [address]- 9335 Dec, [facility] [place] [facility] [address] [id number] [place] [address]- 9526 Dec, [facility] [place] [facility] [address] [id number] [place] [address]- 3215 Dec, [facility] [place] [facility] [address] [id number] [place] [address]- 1052 Dec, [facility] [place] [facility] [address] [id number] [place] [address]- 1559 Dec, [facility] [place] [facility] [address] [id number] [place] [address]- 3565 Oct, [facility] [place] [facility] [address] [id number] [place] [address]- 3877 Oct, [facility] [place] [facility] [address] [id number] [place] [address]- 5459 Oct, [facility] [place] [facility] [address] [id number] [place] [address]- 3616 29 Oct, 2013 [facility] [address] [id number] [place] [address]- 3462 Oct, [facility] [place] [facility] [address] [id number] [place] [address]- 9316 Oct, [facility] [place] [facility] [address] [id number] [place] [address] Oct, [facility] [place] [facility] [address] [id number] [place] [address]- 9994 Oct, [facility] [address] [id number] [place] [address]- 9519 Oct, [facility] [address] [id number] [place] [address]- 2644 Oct, [facility] [address] [id number] [place] [address]- 3868 Sep, [facility] [place] [facility] [address] [id number] [place] [address]- 1540 Sep, [facility] [address] [id number] [place] [address]- 6170 Sep, [facility] [place] [facility] [address] [id number] [place] [address]- 0822 Sep, [facility] [address] [id number] [place] [address]- 5829 Sep, [facility] [place] [facility] [address] [id number], [place] [address]- 1909 Sep, [facility] [place] [facility] [address] [id number] [place] [address]- 0098 Aug, [facility] [place] [facility] [address] [id number] [place] [address]- 9336 Aug, [facility] [place] [facility] [address] [id number] [place] [address]- 2546 Jul, [facility] [place] [facility] [address] [facility] [id number] [place] [address]- 4555 Jul, [facility] [address] [facility] [id number], [place] [address]- 2860 Jul, [facility] [address] [facility] [id number], [place] [address]- 7936 Jul, [facility] [address] [facility] [id number], [place] [address]- 6310 Jul, IMMUNIZATIONS No Known Immunizations SOCIAL HISTORY Never Assessed REASON FOR VISIT Eye Exam PLAN OF CARE VITAL SIGNS MEDICATIONS Unknown [...]
--- OUTSIDE RECORDS SUMMARY | 2018-08-30 20:27 | XMS REPORT ---
Author Author NOEMY MORGAN Organization [facility] Address [address] 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 Active 62513068 Problem Chronic kidney disease, stage 3 N18.3 Active 710198503 Problem CHI I (cervical intraepithelial neoplasia I) N87.0 Active 146224278 Problem Mild episode of recurrent major depressive disorder F33.0 Active 151654650 Problem Addiction to drug F19.20 Active 109418767 Problem Essential hypertension I10 Active 73887240 Problem Opioid use disorder, severe, in sustained remission F11.21 Active 10271691 Problem Irritable bowel syndrome with constipation K58.1 Active 832976006 ALLERGIES No Information ENCOUNTERS Encounter Location Date Diagnosis [facility] [id number] [place] [address] 51858- 6248 May, [facility] [id number] [place] [address] 39977- 2828 May, [facility] [id number] [place] [address] 26685- 9537 18 May, 2018 [facility] [id number] [place] [address] 58410- 5976 18 May, 2018 Opioid use disorder, severe, in early remission F11.21 [facility] [address] [place] [address] May, Opioid use disorder, severe, in sustained remission F11.21 [facility] [address] [address] 13[address] Apr, [facility] [id number] [place] [address] 80129- 9165 Apr, [facility] [id number] [place] [address] 34923- 0518 Apr, [facility] [id number] [place] [address] 10864- 7223 Apr, Opioid use disorder, severe, in early remission F11.21 [facility] [id number] [place] [address] 95566 -3570 Apr, Bacterial conjunctivitis of left eye H10.9 [facility] [id number] [place] [address] 10825- 0026 Apr, [facility] [id number] [place] [address] 55826- 2476 Apr, [facility] [id number] [place] [address] 07716- 0212 Mar, Essential hypertension I10 and Irritable bowel syndrome with constipation K58.1 [facility] [address] [address] 3158 Mar, [facility] [address] [place] [address] 29975- 3929 Mar, Chronic kidney disease, stage 3 N18.3 ; 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 ; Opioid use disorder, severe, in sustained remission F11.21 and Mixed hyperlipidemia E78.2 [facility] [address] [place] [address] 07887- 9478 Mar, Mixed hyperlipidemia E78.2 [facility] [address] [place] [address] 60908- 9450 Mar, Opioid use disorder, severe, in early remission F11.21 [facility] [id number] [address] 9336 Mar, [facility] [address] [place] [address] Mar, Opioid use disorder, severe, in sustained remission F11.21 [facility] [id number] [address] 9054 Jan, Opioid use disorder, severe, in early remission F11.21 [facility] [id number] [place] [address] 28487- 9606 December, Opioid use disorder, severe, in early remission F11.21 [facility] [address] [place] [address] December, Opioid use disorder, severe, in sustained remission F11.21 [facility] [id number] [place] [address] 74887- 1880 December, Opioid use disorder, severe, in sustained remission F11.21 and 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84 ; Essential hypertension I10 and Irritable bowel syndrome with constipation K58.1 [facility] [address] [place] [id number] [place] [address] 35529- 7397 Dec, Opioid use disorder, severe, in early remission F11.21 [facility] [address] [place] [address] 88470- 3533 Oct, [facility] [address] [place] [id number] [address] 3[address] Oct, Opioid use disorder, severe, in early remission F11.21 [facility] [id number] [place] [address] 55116- 8326 Oct, [facility] [id number] [place] [address] 35892- 9056 Oct, Opioid use disorder, severe, in early remission F11.21 [facility] [id number] [place] [address] 45477- 4317 Oct, [facility] [id number] [place] [address] 99407- 3046 Oct, [facility] [address] [place] [address] Oct, Opioid use disorder, severe, in sustained remission F11.21 [facility] [id number] [place] [address] 56142- 9047 Sep, [facility] [id number] [place] [address] 05884- 0324 Sep, [facility] [id number] [place] [address] 59026- 7730 Sep, Opioid use disorder, severe, in early remission F11.21 [facility] [address] [place] [address] 94995- 9145 Aug, Opioid use disorder, severe, in early remission F11.21 [facility] [address] [place] [address] 44910- 1140 Jul, [facility] [id number] [place] [address] 90075- 3870 Jul, Chronic kidney disease, stage 3 N18.3 ; Dysthymia F34.1 and Opioid use disorder, severe, in sustained remission F11.21 [facility] [address] [place] [address] Jul, Opioid use disorder, severe, in sustained remission F11.21 [facility] [address] [address] 3084 Jul, Long-term use of high-risk medication Z79.899 and Chronic kidney disease, stage 3 N18.3 [facility] [id number] [place] [address] 57905- 0290 Jul, Opioid use disorder, severe, in early remission F11.21 [facility] [id number] [place] [address] 10853- 5027 Jul, [facility] [id number] [place] [address] 14406- 9956 Jun, [facility] [id number] [place] [address] 14870- 9405 Jun, [facility] [id number] [place] [address] 78620- 5570 Jun, Opioid use disorder, moderate, dependence F11.20 and Opioid use disorder, severe, in early remission F11.21 [facility] [id number] [place] [address] 06959- 8498 Jun, [facility] [id number] [place] [address] 47058- 9432 Jun, Long-term use of high-risk medication Z79.899 [facility] [id number] [place] [address] 31068- 6148 Jun, CHI I (cervical intraepithelial neoplasia I) N87.0 [facility] [address] [place] [address] 24194- 8640 May, Opioid use disorder, severe, in early remission F11.21 [facility] [address] [place] [address] 07672- 0604 18 May, 2017 Chronic kidney disease, stage 3 N18.3 [facility] [address] [place] [address] 55786- 9601 14 May, 2017 Chronic kidney disease, stage 3 N18.3 [facility] [address] [place] [address] 05 May, 2017 Opioid use disorder, severe, in sustained remission F11.21 [facility] [id number] [place] [address] 08969- 8525 Apr, LGSIL on Pap smear of cervix R87.612 [facility] [address] [place] [address] Apr, [facility] [id number] [place] [address] 05783- 0876 Apr, Opioid use disorder, severe, in early remission F11.21 [facility] [id number] [place] [address] 89504- 1327 Apr, Opioid use disorder, severe, in early remission F11.21 [facility] [id number] [place] [address] 94503- 4986 Apr, Opioid use disorder, severe, in early remission F11.21 [facility] [id number] [place] [address] 14670- 3501 18 Apr, 2017 Opioid use disorder, severe, in early remission F11.21 [facility] [id number] [place] [address] 64633- 5835 14 Apr, 2017 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 [facility] [id number] [place] [address] 04846- 6791 10 Apr, 2017 Opioid use disorder, severe, in early remission F11.21 [facility] [address] [place] [address] Apr, Opioid use disorder, severe, in sustained remission F11.21 [facility] [id number] [place] [address] 67579- 5701 09 Apr, 2017 Opioid use disorder, severe, in early remission F11.21 [facility] [id number] [place] [address] 59682- 9777 02 Aug, 2017 Mild episode of recurrent major depressive disorder F33.0 and Right acute serous otitis media, recurrence not specified H65.01 [facility] [address] [place] [address] 06959- 2510 Mar, [facility] [id number] [place] [address] 91302- 1484 Mar, Opioid use disorder, severe, in early remission F11.21 [facility] [id number] [place] [address] 50174- 7783 Mar, [facility] [address] [place] [address] Mar, Opioid use disorder, severe, in sustained remission F11.21 [facility] [address] [place] [address] Mar, Opioid use disorder, severe, in sustained remission F11.21 [facility] [id number] [place] [address] 79494- 8290 Mar, Opioid use disorder, severe, in early remission F11.21 [facility] [id number] [place] [address] 22066- 0091 Jan, Opioid use disorder, severe, in early remission F11.21 [facility] [address] [place] [address] Jan, Opioid use disorder, severe, in sustained remission F11.21 [facility] [address] [place] [address] Jan, Opioid use disorder, severe, in sustained remission F11.21 [facility] [id number] [place] [address] 58606- 2909 Jan, Opioid use disorder, severe, in early remission F11.21 [facility] [address] [place] [address] Jan, Opioid use disorder, severe, in sustained remission F11.21 [facility] [id number] [place] [address] 91664- 2656 December, Opioid use disorder, severe, in early remission F11.21 [facility] [address] [place] [address] December, Opioid use disorder, severe, in sustained remission F11.21 [facility] [id number] [place] [address] 95496- 2986 December, Routine gynecological examination Z01.419 and Chronic kidney disease, stage 3 N18.3 [facility] [id number] [place] [address] 66732- 4034 December, Chronic kidney disease, stage 3 N18.3 ; 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 ; Gastroparesis K31.84 ; Essential hypertension I10 and Irritable bowel syndrome with constipation K58.1 [facility] [address] [place] [address] December, Opioid use disorder, severe, in sustained remission F11.21 [facility] [id number] [place] [address] 23593- 4244 December, Opioid use disorder, severe, in early remission F11.21 [facility] [address] [place] [address] December, Opioid use disorder, severe, in sustained remission F11.21 [facility] [address] [place] [address] 51276- 5652 December, Encounter for therapeutic drug level monitoring Z51.81 [facility] [address] [place] [address] December, Opioid use disorder, severe, in sustained remission F11.21 [facility] [address] [place] [address] Dec, Opioid use disorder, severe, in sustained remission F11.21 [facility] [id number] [place] [address] 81930- 9051 Dec, Opioid use disorder, severe, in early remission F11.21 [facility] [id number] [place] [address] 98701- 8751 Dec, [facility] [address] [place] [address] Dec, Opioid use disorder, severe, in sustained remission F11.21 [facility] [address] [place] [address] 44690- 1521 10 Dec, 2016 Opioid use disorder, severe, in early remission F11.21 [facility] [address] [place] [address] 06 Dec, 2016 Opioid use disorder, severe, in sustained remission F11.21 [facility] [id number] [place] [address] 33882- 2466 Dec, 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 [facility] [id number] [place] [address] 72953- 3569 Dec, Opioid use disorder, severe, in sustained remission F11.21 ; Encounter for therapeutic drug level monitoring Z51.81 and Other snf ( 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 Z79.899 [facility] [address] [place] [address] 31 Oct, 2016 Opioid use disorder, severe, in sustained remission F11.21 [facility] [id number] [place] [address] 59008- 1351 23 Oct, 2016 Opioid use disorder, severe, in early remission F11.21 [facility] [id number] [place] [address] 77000- 1145 15 Oct, 2016 [facility] [address] [place] [address] 15 Oct, 2016 Opioid use disorder, severe, in sustained remission F11.21 [facility] [id number] [place] [address] 33261- 7219 15 Oct, 2016 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 [facility] [id number] [place] [address] 13186- 4162 14 Oct, 2016 Routine gynecological examination Z01.419 [facility] [id number] [place] [address] 47976- 8254 07 Oct, 2016 Opioid use disorder, severe, in early remission F11.21 [facility] [id number] [place] [address] 16276- 8327 Oct, Opioid use disorder, severe, in early remission F11.21 [facility] [id number] [place] [address] 03315- 3413 Oct, Opioid use disorder, severe, in early remission F11.21 [facility] [address] [place] [address] Oct, Opioid use disorder, severe, in sustained remission F11.21 [facility] [id number] [place] [address] 68279- 5653 Oct, Opioid use disorder, severe, in early remission F11.21 [facility] [id number] [place] [address] 76940- 1171 Oct, Opioid use disorder, severe, in early remission F11.21 [facility] [address] [place] [address] Oct, Opioid use disorder, severe, in sustained remission F11.21 [facility] [address] 92788- 0957 20 Oct, 2016 Opioid use disorder, severe, in sustained remission F11.21 ; Encounter for therapeutic drug level monitoring Z51.81 and Other snf ( 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 Z79.899 [facility] [id number] [place] [address] 38338- 4948 16 Oct, 2016 [facility] [address] [place] [address] 14 Oct, 2016 Opioid use disorder, severe, in early remission F11.21 [facility] [address] [place] [address] 10 Oct, 2016 Opioid use disorder, severe, in early remission F11.21 [facility] [id number] [place] [address] 51144- 9550 09 Oct, 2016 Opioid use disorder, severe, in early remission F11.21 [facility] [id number] [place] [address] 13057- 2494 08 Oct, 2016 [facility] [id number] [place] [address] 77160- 8705 07 Oct, 2016 [facility] [id number] [place] [address] 83714- 3115 Oct, [facility] [address] [place] [address] Oct, Opioid use disorder, severe, in early remission F11.21 [facility] [id number] [place] [address] 98616- 7578 Sep, Opioid use disorder, severe, in early remission F11.21 [facility] [address] [place] [address] Sep, Opioid use disorder, severe, in early remission F11.21 [facility] [id number] [place] [address] 27894- 0577 Sep, Opioid use disorder, severe, in early remission F11.21 ; 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 and Encounter for therapeutic drug level monitoring Z51.81 [facility] [id number] [place] [address] 44722- 0329 Sep, [facility] [id number] [place] [address] 59889- 0678 Sep, [facility] [id number] [place] [address] 70637- 7353 Sep, Opioid use disorder, severe, in early remission F11.21 ; 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 ; Chronic kidney disease, stage 3 N18.3 ; Essential hypertension I10 and Irritable bowel syndrome with constipation K58.1 [facility] [address] [place] [address] Sep, Opioid use disorder, severe, in early remission F11.21 [facility] [address] [place] [address] Sep, Opioid use disorder, severe, in early remission F11.21 [facility] [id number] [place] [address] 97460- 9759 Sep, Opioid use disorder, moderate, dependence F11.20 [facility] [address] [place] [address] 29248- 5645 Sep, Opioid use disorder, moderate, dependence F11.20 [facility] [address] [place] [address] Sep, Opioid use disorder, severe, in early remission F11.21 [facility] [address] [place] [id number] [place] [address] 92631- 2260 Sep, Opioid use disorder, severe, in early remission F11.21 [facility] [address] [place] [address] Aug, Opioid use disorder, severe, in early remission F11.21 [facility] [address] [place] [id number] [place] [address] 793991- 1585 Aug, Opioid use disorder, moderate, dependence F11.20 [facility] [address] [place] [address] 72817 -6747 Aug, Bug bite without infection, initial encounter W[address] [place] [id number] [place] [address] 94229- 9824 Aug, Opioid use disorder, moderate, dependence F11.20 [facility] [address] [place] [address] Aug, [place] [id number] [place] [address] 86762- 3048 Aug, Opioid use disorder, severe, in early remission F11.21 ; Other snf (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 Z79.899 ; Encounter for therapeutic drug level monitoring Z51.81 and 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 [facility] [address] [place] [address] Aug, [facility] [address] [place] [address] 93042- 7741 Aug, Opioid use disorder, moderate, dependence F11.20 ; Other snf (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 Z79.899 and Encounter for therapeutic drug level monitoring Z51.81 [place] [id number] [place] [address] 55324- 2508 Aug, [facility] [id number] [place] [address] 70194- 5235 Aug, Non-intractable vomiting with nausea, unspecified vomiting type R11.2 [facility] [id number] [place] [address] 17876- 8938 Aug, Opioid use disorder, moderate, dependence F11.20 and Non- intractable vomiting with nausea, unspecified vomiting type R11.2 [facility] [id number] [place] [address] 44773- 4223 Aug, [facility] [address] 17307- 5314 Aug, Opioid use disorder, moderate, dependence F11.20 [facility] [id number] [place] [address] 13443- 4613 Aug, [facility] [id number] [place] [address] 90476- 8859 Jul, 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 and Opioid use disorder, moderate, dependence F11.20 [facility] [address] [place] [address] Jul, [facility] [id number] [place] [address] [phone] Jul, [facility] [id number] [place] [address] [phone] Jul, [facility] [id number] [place] [address] [phone] Jul, Addiction to drug F19.20 and Chronic kidney disease, stage 3 N18.3 [facility] [address] [place] [address] Jul, Counseling on substance use and abuse Z71.89 [facility] [id number] [place] [address] [phone] Jul, Chronic kidney disease, stage 3 N18.3 [facility] [id number] [place] [address] [phone] Jul, 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 ; Diarrhea, unspecified type R19.7 and Essential hypertension I10 [facility] [id number] [place] [address] [phone] Jul, [facility] [id number] [place] [address] [phone] Jun, [facility] [id number] [place] [address] 63567- 6325 Jun, [facility] [id number] [place] [address] 49561- 0463 Apr, 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 [facility] [id number] [place] [address] 55051- 5805 Apr, Sore throat and laryngitis J06.0 and Non-intractable vomiting with nausea, unspecified vomiting type R11.2 [facility] [id number] [place] [address] 91924- 2786 Apr, [facility] [id number] [place] [address] 74753- 4670 Mar, [facility] [id number] [place] [address] 85047- 6114 Jan, [facility] [id number] [place] [address] 10324- 0695 Jan, [facility] [id number] [place] [address] 50851- 8729 Jan, [facility] [id number] [place] [address] 06346- 2071 December, 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 ; Gastroparesis K31.84 ; Mixed hyperlipidemia E78.2 ; Chronic kidney disease, stage 3 N18.3 ; Dysthymia F34.1 and Acute bilateral low back pain without sciatica M54.5 [facility] [id number] [place] [address] 34246- 9947 December, [facility] [address] 20616- 8940 December, [facility] [address] 89784- 3390 Aug, Depression F32.9 and Gastroparesis K31.84 [facility] [address] 36123- 8538 Aug, Gastroparesis K31.84 [facility] [address] 24699- 2645 Jul, Recurrent UTI N39.0 ; Chronic kidney disease, stage 3 N18.3 and 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 [facility] [address] 54290- 6444 Jul, [facility] [address] [id number] Jul, Dental examination Z01.20 and Dental caries K02.9 [place] [id number] [place] [address] 45220- 6679 17 Jul, 2015 [facility] [id number] [place] [address] 32690 -3517 Jul, Dysuria R30.0 ; Urinary tract infection N39.0 and Nausea R11.0 [facility] [id number] [place] [address] 82572- 0395 Jun, Dysuria R30.0 [facility] [address] 46150- 6734 Jun, Dysuria R30.0 [facility] [address] 47458- 2728 Jun, Dysuria R30.0 [place] [address] [address]- 9437 Jun, [place] [id number] [place] [address] 84166- 3208 Jun, Acute cystitis with hematuria N30.01 [place] [id number] [place] [address] 95551- 3027 May, [place] [id number] [place] [address] 89761- 8653 Apr, Diabetes mellitus without mention of complication, type I [ juvenile type], not stated as uncontrolled 250.01 ; Gastroparesis due to DM 250.60 ; Contraception management V25.9 and Renal insufficiency 593.9 [place] [id number] [place] [address] 87122- 9059 Apr, [place] [id number] [place] [address] 91813- 1403 Apr, [place] [id number] [place] [address] 59182- 5034 Mar, [place] [id number] [place] [address] 46284- 9505 Mar, Hyperlipidemia 272.4 and Hypertensive heart and chronic kidney disease, benign, without heart failure and with chronic kidney disease stage I through stage IV, or unspecified 404.10 [place] [id number] [place] [address] 23153- 7096 Mar, Hyperlipidemia 272.4 ; Hyponatremia 276.1 ; 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 ; Hypertensive heart and chronic kidney disease, benign, without heart failure and with chronic kidney disease stage I through stage IV, or unspecified 404.10 ; Proteinuria 791.0 and Chronic kidney disease (CKD), stage III (moderate) 585.3 [id number] [place] [address] 93107- 7395 Mar, [place] [id number] [place] [address] 65658- 7289 Mar, Elevated blood sugar level 790.29 [facility] [address] 3490 Mar, Low grade squamous intraepithelial lesion (LGSIL) on cervical Pap smear 795.03 [facility] [address] [address]- 5396 Mar, Amenorrhea 626.0 [facility] [id number] [place] [address] 18697- 4839 Jan, Amenorrhea 626.0 ; Routine gynecological examination V72.31 and Screen for STD (sexually transmitted disease) V74.5 [facility] [id number] [place] [address] 11919- 8261 Jan, Amenorrhea 626.0 [facility] [id number] [place] [address] 62258- 3240 Jan, Routine gynecological examination V72.31 ; Screen for STD ( sexually transmitted disease) V74.5 ; Pap test, as part of routine gynecological examination V76.2 ; Breast cancer screening V76.10 and Amenorrhea 626.0 [facility] [address] [address]- 8313 December, [facility] [address] 5248 Dec, [facility] [address] [address]- 3110 Dec, [facility] [address] [address]- 0426 30 Oct, 2014 [facility] [address] [address]- 7627 Oct, [facility] [address] [address]- 7976 Oct, [facility] [address] [address]- 4191 Oct, [facility] [place] [facility] [address] [id number] [place] [address]- 6278 Oct, [facility] [place] [facility] [address] [id number] [place] [address]- 3915 Oct, [facility] [place] [facility] [address] [id number] [place] [address]- 8976 Oct, [facility] [place] [facility] [address] [id number] [place] [address]- 4610 Oct, [facility] [place] [facility] [address] [id number] [place] [address]- 4054 Oct, [facility] [place] [facility] [address] [id number] [place] [address]- 8279 Oct, [facility] [place] [facility] [address] [id number] [place] [address]- 1022 Oct, [facility] [place] [facility] [address] [id number] [place] [address]- 9673 Sep, [facility] [place] [facility] [address] [id number] [place] [address]- 7894 Sep, [facility] [place] [facility] [address] [id number] [place] [address]- 3253 Sep, [facility] [place] [facility] [address] [id number] [place] [address]- 8792 Sep, [facility] [place] [facility] [address] [id number] [address]- 3263 Sep, [facility] [place] [facility] [address] [id number] [place] [address]- 1584 Sep, [facility] [place] [facility] [address] [id number] [place] [address]- 1757 Sep, [facility] [place] [facility] [address] [id number] [place] [address]- 4036 Sep, [facility] [place] [facility] [address] [id number] [place] [address]- 7736 15 Sep, 2014 [facility] [address] [id number] [place] [address]- 8147 15 Sep, 2014 [facility] [address] [id number] [place] [address]- 4265 Sep, [facility] [address] [id number] [place] [address]- 1124 Sep, [facility] [address] [id number] [place] [address]- 4355 Sep, [facility] [address] [id number] [place] [address]- 3718 Sep, [facility] [address] [id number] [place] [address]- 7397 Sep, [facility] [address] [id number] [place] [address]- 9266 Sep, [facility] [address] [id number] [place] [address]- 9209 Sep, [facility] [address] [id number] [place] [address]- 3095 Sep, [facility] [address] [id number] [place] [address]- 7249 Sep, [facility] [address] [id number] [place] [address]- 2831 Sep, [facility] [address] [id number] [place] [address]- 5809 Aug, [facility] [place] [facility] [address] [id number] [place] [address]- 0311 Aug, [facility] [place] [facility] [address] [id number] [place] [address]- 1905 Aug, [facility] [address] [id number] [place] [address]- 3297 Aug, [facility] [place] [facility] [address] [id number] [place] 0901 08 Aug, 2014 [facility] [place] [facility] [address] [id number] [place] [address]- 8790 Aug, [facility] [place] [facility] [address] [id number] [place] [address]- 0610 Aug, [facility] [place] [facility] [address] [id number] [place] [address]- 0259 Aug, [facility] [place] [facility] [address] [id number] [place] 8392 Aug, [facility] [place] [facility] [address] [id number] [place] [address]- 9057 Aug, [facility] [place] [facility] [address] [id number] [place] [address]- 7430 Aug, [facility] [place] [facility] [address] [id number] [place] [address]- 5560 Aug, [facility] [place] [facility] [address] [id number] [place] [address]- 5482 Jul, [facility] [place] [facility] [address] [id number] [place] [address]- 4296 Jul, [facility] [place] [facility] [address] [id number] [place] [address]- 0698 Jul, [facility] [place] [facility] [address] [id number] [address]- 1830 Jul, [facility] [place] [facility] [address] [id number] [place] [address]- 3933 Jul, [facility] [place] [facility] [address] [id number] [place] [address]- 1515 Jul, [facility] [place] [facility] [address] [id number] [place] 2102 Jul, [facility] [place] [facility] [address] [id number] [address]- 2802 Jul, [facility] [place] [facility] [address] [id number] [place] [address]- 5411 Jul, [facility] [place] [facility] [address] [id number] [place] 1896 Jul, [facility] [place] [facility] [address] [id number] [place] [address]- 1464 Jun, [facility] [place] [facility] [address] [id number] [place] [address]- 0931 Jun, [facility] [place] [facility] [address] [id number] [place] [address]- 8903 Jun, [facility] [place] [facility] [address] [id number] [place] [address]- 0433 Jun, [facility] [place] [facility] [address] [id number] [place] [address]- 0280 Jun, [facility] [place] [facility] [address] [id number] [place] [address]- 7113 30 Jun, 2014 [facility] [place] [facility] [address] [id number] [place] [address]- 8742 Jun, [facility] [place] [facility] [address] [id number] [place] [address]- 1969 Jun, [facility] [place] [facility] [address] [id number] [place] [address]- 3410 22 May, 2014 [facility] [place] [facility] [address] [id number] [place] [address]- 3490 22 May, 2014 [facility] [place] [facility] [address] [id number] [place] [address]- 3382 18 May, 2014 [facility] [place] [facility] [address] [id number] [place] [address]- 0159 18 May, 2014 [facility] [place] [facility] [address] [id number] [place] [address]- 8392 09 May, 2013 [facility] [place] [facility] [address] [id number] [place] [address]- 1007 May, [facility] [place] [facility] [address] [id number] [place] [address]- 3995 May, [facility] [place] [facility] [address] [id number] [place] [address]- 9606 May, [facility] [place] [facility] [address] [id number] [place] [address]- 3162 Apr, [facility] [place] [facility] [address] [id number] [place] [address]- 3745 Apr, [facility] [place] [facility] [address] [id number] [place] [address]- 7041 Apr, [facility] [place] [facility] [address] [id number] [place] [address]- 2786 Apr, [facility] [place] [facility] [address] [id number] [place] [address]- 8385 Mar, [facility] [place] [facility] [address] [id number] [place] [address]- 9342 Mar, [facility] [place] [facility] [address] [id number] [place] [address]- 4855 Mar, [facility] [place] [facility] [address] [id number] [place] [address]- 1223 Mar, [facility] [place] [facility] [address] [id number] [place] [address]- 1877 Mar, [facility] [place] [facility] [address] [id number] [place] [address]- 1952 Mar, [facility] [place] [facility] [address] [id number] [place] [address]- 8037 Jan, [facility] [place] [facility] [address] [id number] [place] [address]- 5136 Jan, [facility] [place] [facility] [address] [id number] [place] [address]- 9515 Jan, [facility] [place] [facility] [address] [id number] [place] [address]- 7411 Jan, [facility] [place] [facility] [address] [id number] [place] [address]- 3421 Jan, [facility] [place] [facility] [address] [id number] [place] [address]- 3168 Jan, [facility] [place] [facility] [address] [id number] [place] [address]- 8607 Jan, [facility] [place] [facility] [address] [id number] [place] [address]- 9581 Jan, [facility] [place] [facility] [address] [id number] [place] [address]- 8206 Jan, [facility] [place] [facility] [address] [id number] [place] [address]- 9969 Jan, [facility] [place] [facility] [address] [id number] [place] [address]- 4244 Jan, [facility] [place] [facility] [address] [id number] [place] [address]- 3010 Jan, [facility] [place] [facility] [address] [id number] [place] [address]- 3369 December, [facility] [place] [facility] [address] [id number] [place] [address]- 9933 December, [facility] [place] [facility] [address] [id number] [place] [address]- 5665 December, [facility] [place] [facility] [address] [id number] [place] [address]- 5645 December, [facility] [place] [facility] [address] [id number] [place] [address]- 7519 Dec, [facility] [place] [facility] [address] [id number] [place] [address]- 3543 Dec, [facility] [place] [facility] [address] [id number] [place] [address]- 4943 Dec, [facility] [place] [facility] [address] [id number] [place] [address]- 5191 Dec, [facility] [place] [facility] [address] [id number] [place] [address]- 4748 Dec, [facility] [place] [facility] [address] [id number] [place] [address]- 3374 Dec, [facility] [place] [facility] [address] [id number] [place] [address]- 8634 Dec, [facility] [place] [facility] [address] [id number] [place] [address]- 0917 Dec, [facility] [place] [facility] [address] [id number] [place] [address]- 8391 Dec, [facility] [place] [facility] [address] [id number] [place] [address]- 4425 Dec, [facility] [place] [facility] [address] [id number] [place] [address]- 6710 Dec, [facility] [place] [facility] [address] [id number] [place] [address]- 6205 Dec, [facility] [place] [facility] [address] [id number] [place] [address]- 5732 Dec, [facility] [place] [facility] [address] [id number] [place] [address]- 9679 Dec, [facility] [place] [facility] [address] [id number] [place] [address]- 2968 Oct, [facility] [place] [facility] [address] [id number] [place] [address]- 8669 Oct, [facility] [place] [facility] [address] [id number] [place] [address]- 1360 Oct, [facility] [place] [facility] [address] [id number] [place] 1764 Oct, [facility] [place] [facility] [address] [id number] [place] [address]- 8592 Oct, [facility] [place] [facility] [address] [id number] [place] [address]- 0923 Oct, [facility] [place] [facility] [address] [id number] [place] [address] Oct, [facility] [place] [facility] [address] [id number] [place] [address]- 7856 Oct, [facility] [place] [facility] [address] [id number] [place] [address]- 2629 Oct, [facility] [place] [facility] [address] [id number] [place] [address]- 3184 Oct, [facility] [place] [facility] [address] [id number] [place] [address]- 2208 Sep, [facility] [place] [facility] [address] [id number] [place] [address]- 9840 Sep, [facility] [place] [facility] [address] [id number] [place] [address]- 2650 Sep, [facility] [place] [facility] [address] [id number] [place] [address]- 6954 Sep, [facility] [place] [facility] [address] [id number] [place] 6976 Sep, [facility] [place] [facility] [address] [id number] [place] [address]- 2763 Sep, [facility] [place] [facility] [address] [id number] [place] [address]- 3713 Aug, [facility] [place] [facility] [address] [id number] [place] [address]- 4156 Aug, [facility] [place] [facility] [address] [id number] [place] [address]- 0726 13 Jul, 2013 [facility] [place] [facility] [address] [id number] [place] [address]- 9307 Jul, [facility] [address] [facility] [id number] [place] [address]- 2238 Jul, [facility] [address] [facility] [id number] [place] [address]- 1601 Jul, [facility] [address] [facility] [id number] [place] [address]- 4207 Jul, IMMUNIZATIONS No Known Immunizations SOCIAL HISTORY Never Assessed REASON FOR VISIT Lab results PLAN OF CARE VITAL SIGNS MEDICATIONS Medication Instructions Dosage Frequency Start Date End Date Duration Status Atorvastatin Calcium 40 mg Orally Once a day 1 tablet 24h Apr, 30 day(s) Active RESULTS No Results PROCEDURES No Known [...]
--- OUTSIDE RECORDS SUMMARY | 2018-08-30 20:27 | XMS REPORT ---
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 Active 35631432 Problem Chronic kidney disease, stage 3 N18.3 Active 068895021 Problem CHI I (cervical intraepithelial neoplasia I) N87.0 Active 478480752 Problem Mild episode of recurrent major depressive disorder F33.0 Active 737083843 Problem Addiction to drug F19.20 Active 399083157 Problem Essential hypertension I10 Active 76111542 Problem Opioid use disorder, severe, in sustained remission F11.21 Active 98651909 Problem Irritable bowel syndrome with constipation K58.1 Active 088253693 ALLERGIES Substance Reaction Event Type Date Status Sulfamethoxazole-Trimethoprim rash Drug Allergy Apr, Active Penicillin V Potassium rash Drug Allergy Apr, Active Cipro nausea and vomiting Drug Allergy Apr, Active ENCOUNTERS Encounter Location Date Diagnosis [facility] [id number] [address] May, [facility] [id number] [place] [address] 40729- 8246 May, [facility] [id number] [place] [address] 86238- 5223 May, Opioid use disorder, severe, in early remission F11.21 [facility] [address] [place] [address] May, Opioid use disorder, severe, in sustained remission F11.21 [facility] [id number] [place] [address] 89935- 9399 Apr, [facility] [id number] [place] [address] 77343- 6735 Apr, [facility] [id number] [place] [address] 83932- 0210 Apr, [facility] [id number] [place] [address] 39683- 3408 Apr, Opioid use disorder, severe, in early remission F11.21 [facility] [address] [address] Apr, Bacterial conjunctivitis of left eye H10.9 [facility] [id number] [place] [address] 30825- 7617 Apr, [facility] [id number] [place] [address] 13517- 7532 Apr, [facility] [id number] [place] [address] 82817- 0024 Mar, Essential hypertension I10 and Irritable bowel syndrome with constipation K58.1 [facility] [id number] [place] [address] 80323- 0863 Mar, [facility] [id number] [place] [address] 68332- 2227 Mar, Chronic kidney disease, stage 3 N18.3 ; 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 ; Opioid use disorder, severe, in sustained remission F11.21 and Mixed hyperlipidemia E78.2 [facility] [id number] [place] [address] 95628- 6088 Mar, Mixed hyperlipidemia E78.2 [facility] [id number] [place] [address] 18779- 0794 Mar, Opioid use disorder, severe, in early remission F11.21 [facility] [id number] [place] [address] 47761- 1069 Mar, [facility] [address] [place] [address] Mar, Opioid use disorder, severe, in sustained remission F11.21 [facility] [id number] [place] [address] 66090- 8926 Jan, Opioid use disorder, severe, in early remission F11.21 [facility] [id number] [place] [address] 40560- 3585 December, Opioid use disorder, severe, in early remission F11.21 [facility] [address] [place] [address] December, Opioid use disorder, severe, in sustained remission F11.21 [facility] [id number] [place] [address] 46028- 2400 December, Opioid use disorder, severe, in sustained remission F11.21 and 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 [facility] [id number] [place] [address] 83739- 1070 December, Opioid use disorder, severe, in early remission F11.21 [facility] [address] [place] [address] Dec, Opioid use disorder, severe, in sustained remission F11.21 [id number] [place] [address] 96820- 8076 Dec, 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 ; Unprotected sexual intercourse Z72.51 ; Pain of left thumb M79.645 ; Mixed hyperlipidemia E78.2 ; Gastroparesis K31.84 ; Essential hypertension I10 and Irritable bowel syndrome with constipation K58.1 [facility] [id number] [place] [address] 30595- 9731 Dec, Opioid use disorder, severe, in early remission F11.21 [id number] [place] [address] 72864- 9529 Oct, [facility] [address] [address] 27[address] Oct, Opioid use disorder, severe, in early remission F11.21 [facility] [id number] [place] [address] 048530- 5386 Oct, [facility] [id number] [place] [address] 379775- 7784 Oct, Opioid use disorder, severe, in early remission F11.21 [facility] [id number] [place] [address] 53292- 0811 Oct, [facility] [id number] [place] [address] 01950- 2314 Oct, [facility] [address] [place] [address] Oct, Opioid use disorder, severe, in sustained remission F11.21 [facility] [id number] [place] [address] 26725- 3011 Sep, [facility] [id number] [place] [address] 12315- 6313 Sep, [facility] [id number] [place] [address] 22380- 1040 Sep, Opioid use disorder, severe, in early remission F11.21 [facility] [id number] [place] [address] 15469- 2472 Aug, Opioid use disorder, severe, in early remission F11.21 [facility] [address] [address] 2797 Jul, [facility] [id number] [place] [address] 38055- 9432 Jul, Chronic kidney disease, stage 3 N18.3 ; Dysthymia F34.1 and Opioid use disorder, severe, in sustained remission F11.21 [facility] [address] [place] [address] Jul, Opioid use disorder, severe, in sustained remission F11.21 [facility] [id number] [place] [address] 04341- 8053 Jul, Long-term use of high-risk medication Z79.899 and Chronic kidney disease, stage 3 N18.3 [facility] [id number] [place] [address] 76145- 9895 Jul, Opioid use disorder, severe, in early remission F11.21 [facility] [id number] [place] [address] 55914- 9964 Jul, [facility] [id number] [place] [address] 91966- 8379 Jun, [facility] [id number] [place] [address] 87246- 7452 Jun, [facility] [id number] [place] [address] 09069- 8625 Jun, Opioid use disorder, moderate, dependence F11.20 and Opioid use disorder, severe, in early remission F11.21 [facility] [id number] [place] [address] 05472- 0264 Jun, [facility] [id number] [place] [address] 29356- 2783 Jun, Long-term use of high-risk medication Z79.899 [facility] [id number] [place] [address] 91647- 4238 Jun, CHI I (cervical intraepithelial neoplasia I) N87.0 [facility] [id number] [place] [address] 38040- 1496 May, Opioid use disorder, severe, in early remission F11.21 [facility] [id number] [place] [address] 67200- 9411 18 May, 2017 Chronic kidney disease, stage 3 N18.3 [facility] [id number] [place] [address] 00957- 7725 14 May, 2017 Chronic kidney disease, stage 3 N18.3 [facility] [address] [place] [address] 05 May, 2017 Opioid use disorder, severe, in sustained remission F11.21 [facility] [id number] [place] [address] 87557- 6639 Apr, LGSIL on Pap smear of cervix R87.612 [facility] [address] [place] [address] Apr, [facility] [id number] [place] [address] 09676- 0946 Apr, Opioid use disorder, severe, in early remission F11.21 [facility] [id number] [place] [address] 65688- 0960 Apr, Opioid use disorder, severe, in early remission F11.21 [facility] [id number] [place] [address] 27720- 6396 Apr, Opioid use disorder, severe, in early remission F11.21 [facility] [id number] [place] [address] 15112- 4999 18 Apr, 2017 Opioid use disorder, severe, in early remission F11.21 [facility] [id number] [place] [address] 10426- 8180 14 Apr, 2017 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 [facility] [id number] [place] [address] 72694- 7004 Apr, Opioid use disorder, severe, in early remission F11.21 [facility] [address] [place] [address] Apr, Opioid use disorder, severe, in sustained remission F11.21 [facility] [id number] [place] [address] 98188- 3674 09 Apr, 2017 Opioid use disorder, severe, in early remission F11.21 [facility] [id number] [place] [address] 62249- 6501 Apr, Mild episode of recurrent major depressive disorder F33.0 and Right acute serous otitis media, recurrence not specified H65.01 [facility] [id number] [place] [address] 76793- 6079 Mar, [facility] [id number] [place] [address] 59659- 0248 Mar, Opioid use disorder, severe, in early remission F11.21 [facility] [id number] [place] [address] 05894- 7406 Mar, [facility] [address] [place] [address] Mar, Opioid use disorder, severe, in sustained remission F11.21 [facility] [address] [place] [address] Mar, Opioid use disorder, severe, in sustained remission F11.21 [facility] [id number] [place] [address] 93382- 2032 Mar, Opioid use disorder, severe, in early remission F11.21 [facility] [id number] [place] [address] 36399- 4492 Jan, Opioid use disorder, severe, in early remission F11.21 [facility] [address] [place] [address] Jan, Opioid use disorder, severe, in sustained remission F11.21 [facility] [address] [place] [address] Jan, Opioid use disorder, severe, in sustained remission F11.21 [facility] [id number] [place] [address] 19429- 3614 Jan, Opioid use disorder, severe, in early remission F11.21 [facility] [address] [place] [address] Jan, Opioid use disorder, severe, in sustained remission F11.21 [facility] [id number] [place] [address] 56964- 6680 December, Opioid use disorder, severe, in early remission F11.21 [facility] [address] [place] [address] December, Opioid use disorder, severe, in sustained remission F11.21 [facility] [id number] [place] [address] 27308- 7633 December, Routine gynecological examination Z01.419 and Chronic kidney disease, stage 3 N18.3 [facility] [address] [place] [id number] [place] [address] 52310- 8852 December, Chronic kidney disease, stage 3 N18.3 ; 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 ; Gastroparesis K31.84 ; Essential hypertension I10 and Irritable bowel syndrome with constipation K58.1 [facility] [address] [place] [address] December, Opioid use disorder, severe, in sustained remission F11.21 [address] [id number] [place] [address] 08140- 5302 December, Opioid use disorder, severe, in early remission F11.21 [facility] [address] [place] [address] December, Opioid use disorder, severe, in sustained remission F11.21 [facility] [address] [place] [id number] [place] [address] 06281- 3870 December, Encounter for therapeutic drug level monitoring Z51.81 [facility] [address] [place] [address] December, Opioid use disorder, severe, in sustained remission F11.21 [facility] [address] [place] [address] Dec, Opioid use disorder, severe, in sustained remission F11.21 [facility] [address] [place] [id number] [place] [address] 33076- 3666 Dec, Opioid use disorder, severe, in early remission F11.21 [facility] [id number] [place] [address] 45328- 2534 Dec, [facility] [address] [place] [address] Dec, Opioid use disorder, severe, in sustained remission F11.21 [facility] [id number] [place] [address] 63928- 7019 10 Dec, 2016 Opioid use disorder, severe, in early remission F11.21 [facility] [address] [place] [address] 06 Dec, 2016 Opioid use disorder, severe, in sustained remission F11.21 [facility] [id number] [place] [address] 21855- 3350 Dec, 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 [facility] [id number] [place] [address] 46738- 7851 Dec, Opioid use disorder, severe, in sustained remission F11.21 ; Encounter for therapeutic drug level monitoring Z51.81 and Other group 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.899 [facility] [address] [place] [address] 31 Oct, 2016 Opioid use disorder, severe, in sustained remission F11.21 [facility] [id number] [place] [address] 90124- 9744 23 Oct, 2016 Opioid use disorder, severe, in early remission F11.21 [facility] [id number] [place] [address] 18127- 7019 15 Oct, 2016 [facility] [address] [place] [address] Oct, Opioid use disorder, severe, in sustained remission F11.21 [facility] [id number] [place] [address] 90312- 6063 15 Oct, 2016 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 [facility] [id number] [place] [address] 74147- 5615 14 Oct, 2016 Routine gynecological examination Z01.419 [facility] [id number] [place] [address] 28391- 8590 07 Oct, 2016 Opioid use disorder, severe, in early remission F11.21 [facility] [id number] [place] [address] 47984- 1795 Oct, Opioid use disorder, severe, in early remission F11.21 [facility] [id number] [place] [address] 56759- 2056 Oct, Opioid use disorder, severe, in early remission F11.21 [facility] [address] [place] [address] Oct, Opioid use disorder, severe, in sustained remission F11.21 [facility] [id number] [place] [address] 53518- 5633 Oct, Opioid use disorder, severe, in early remission F11.21 [facility] [id number] [place] [address] 59495- 9418 Oct, Opioid use disorder, severe, in early remission F11.21 [facility] [address] [place] [address] Oct, Opioid use disorder, severe, in sustained remission F11.21 [facility] [id number] [place] [address] 29407- 1747 Oct, Opioid use disorder, severe, in sustained remission F11.21 ; Encounter for therapeutic drug level monitoring Z51.81 and 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 [facility] [id number] [place] [address] 61402- 5268 16 Oct, 2016 [facility] [address] [place] [address] 14 Oct, 2016 Opioid use disorder, severe, in early remission F11.21 [facility] [address] [place] [address] 10 Oct, 2016 Opioid use disorder, severe, in early remission F11.21 [facility] [id number] [place] [address] 92165- 3043 09 Oct, 2016 Opioid use disorder, severe, in early remission F11.21 [facility] [id number] [place] [address] 36690- 7055 08 Oct, 2016 [facility] [address] [address]- 8479 Oct, [facility] [id number] [place] [address] 68675- 5173 Oct, [facility] [address] [place] [address] Oct, Opioid use disorder, severe, in early remission F11.21 [facility] [id number] [place] [address] 49875- 8552 Sep, Opioid use disorder, severe, in early remission F11.21 [facility] [address] [place] [address] Sep, Opioid use disorder, severe, in early remission F11.21 [facility] [id number] [place] [address] 14878- 2654 Sep, Opioid use disorder, severe, in early remission F11.21 ; Other group home (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 Z79.899 and Encounter for therapeutic drug level monitoring Z51.81 [facility] [id number] [place] [address] 33632- 6372 Sep, [facility] [id number] [place] [address] 07236- 7676 Sep, [facility] [id number] [place] [address] 92685- 6287 Sep, Opioid use disorder, severe, in early remission F11.21 ; 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 ; Chronic kidney disease, stage 3 N18.3 ; Essential hypertension I10 and Irritable bowel syndrome with constipation K58.1 [facility] [address] [place] [address] Sep, Opioid use disorder, severe, in early remission F11.21 [facility] [address] [place] [address] Sep, Opioid use disorder, severe, in early remission F11.21 [facility] [id number] [place] [address] 46425- 4168 Sep, Opioid use disorder, moderate, dependence F11.20 [facility] [address] [place] [id number] [place] [address] 42668- 4723 Sep, Opioid use disorder, moderate, dependence F11.20 [facility] [address] [place] [address] Sep, Opioid use disorder, severe, in early remission F11.[address] 665537- 3697 Sep, Opioid use disorder, severe, in early remission F11.21 [facility] [address] [place] [address] Aug, Opioid use disorder, severe, in early remission F11.[address] [address] 2402 Aug, Opioid use disorder, moderate, dependence F11.20 [facility] [address] [place] [address]81 [address] Aug, Bug bite without infection, initial encounter W57.XXXA [address] 39222- 0272 Aug, Opioid use disorder, moderate, dependence F11.[address] [address] Aug, [address] 56366- 0946 Aug, Opioid use disorder, severe, 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 ; Other group home (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 Z79.899 ; Encounter for therapeutic drug level monitoring Z51.81 and 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 [facility] [address] [place] [address] Aug, [address] 04744- 0637 Aug, Opioid use disorder, moderate, dependence F11.20 ; 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 and Encounter for therapeutic drug level monitoring Z51.81 [facility] [id number] [place] [address] 74736- 3706 Aug, [facility] [address] 42925- 8953 Aug, Non-intractable vomiting with nausea, unspecified vomiting type R11.2 [facility] [address] 79599- 9438 Aug, Opioid use disorder, moderate, dependence F11.20 and Non- intractable vomiting with nausea, unspecified vomiting type R11.2 [facility] [address] 66118- 5403 Aug, [facility] [address] 289880- 0524 Aug, Opioid use disorder, moderate, dependence F11.20 [facility] [address] 99700- 0286 Aug, [facility] [address] 02493- 3606 Jul, 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 and Opioid use disorder, moderate, dependence F11.20 [facility] [address] [place] [address] Jul, [facility] [id number] [place] [phone] Jul, [facility] [id number] [place] [address] Jul, [facility] [address] [address] Jul, Addiction to drug F19.20 and Chronic kidney disease, stage 3 N18.3 [facility] [address] [place] [address] 17 Jul, 2016 Counseling on substance use and abuse Z71.89 [facility] [address] [place] [address] 01945- 7281 Jul, Chronic kidney disease, stage 3 N18.3 [facility] [id number] [place] [address] 75191- 7661 Jul, 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 ; Diarrhea, unspecified type R19.7 and Essential hypertension I10 [facility] [id number] [place] [address] 53666- 7524 Jul, [facility] [address] 79904- 8315 Jun, [facility] [id number] [place] [address] 35081- 5020 Jun, [facility] [id number] [place] [address] 48846- 1313 Apr, 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 [facility] [id number] [place] [address] 95713- 1830 Apr, Sore throat and laryngitis J06.0 and Non-intractable vomiting with nausea, unspecified vomiting type R11.2 [place] [id number] [place] [address] 77374- 8592 Apr, [facility] [id number] [place] [address] 52339- 9606 Mar, [facility] [id number] [place] [address] 78423- 1283 Jan, [facility] [id number] [place] [address] 76579- 3388 Jan, [facility] [id number] [place] [address] 02160- 6894 Jan, [facility] [id number] [place] [address] 38684- 4134 December, 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 ; Gastroparesis K31.84 ; Mixed hyperlipidemia E78.2 ; Chronic kidney disease, stage 3 N18.3 ; Dysthymia F34.1 and Acute bilateral low back pain without sciatica M54.5 [facility] [id number] [place] [address] 41990- 1954 December, [facility] [id number] [place] [address] 63258- 9534 December, [facility] [address] 87856- 9105 Aug, Depression F32.9 and Gastroparesis K31.84 [facility] [address] 38494- 2191 Aug, Gastroparesis K31.84 [facility] [address] 05576- 3187 Jul, Recurrent UTI N39.0 ; Chronic kidney disease, stage 3 N18.3 and 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 [facility] [id number] [place] [address] 41847- 2744 Jul, [facility] [address] [id number] Jul, Dental examination Z01.20 and Dental caries K02.9 [facility] [id number] [place] [address] 59314- 5165 17 Jul, 2015 [facility] [id number] [place] [address] 83033 -5588 Jul, Dysuria R30.0 ; Urinary tract infection N39.0 and Nausea R11.0 [facility] [id number] [place] [address] 72252- 0489 Jun, Dysuria R30.0 [facility] [address] 74931- 2628 Jun, Dysuria R30.0 [facility] [address] 99394- 8471 Jun, Dysuria R30.0 [id number] [place] [address] 14066- 9211 Jun, [address] [id number] [place] [address] 09104- 8870 Jun, Acute cystitis with hematuria N30.01 [id number] [place] [address] 66035- 0447 May, [address] 39118- 6301 Apr, Diabetes mellitus without mention of complication, type I [ juvenile type], not stated as uncontrolled 250.01 ; Gastroparesis due to DM 250.60 ; Contraception management V25.9 and Renal insufficiency 593.9 [id number] [place] [address] 42682- 3365 Apr, [address] 39934- 8191 Apr, [id number] [place] [address] 89467- 6780 Mar, [id number] [place] [address] 21741- 9006 Mar, Hyperlipidemia 272.4 and Hypertensive heart and chronic kidney disease, benign, without heart failure and with chronic kidney disease stage I through stage IV, or unspecified 404.10 [id number] [place] [address] 43520- 4943 Mar, Hyperlipidemia 272.4 ; Hyponatremia 276.1 ; 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 ; Hypertensive heart and chronic kidney disease, benign, without heart failure and with chronic kidney disease stage I through stage IV, or unspecified 404.10 ; Proteinuria 791.0 and Chronic kidney disease (CKD), stage III (moderate) 585.3 [address] [id number] [place] [address] 97976- 8966 Mar, [address] [place] [address]- 1289 Mar, Elevated blood sugar level 790.29 [facility] [id number] [place] [address] 01408- 3094 Mar, Low grade squamous intraepithelial lesion (LGSIL) on cervical Pap smear 795.03 [facility] [address] [address]- 9335 Mar, Amenorrhea 626.0 [facility] [id number] [place] [address] 83149- 6568 Jan, Amenorrhea 626.0 ; Routine gynecological examination V72.31 and Screen for STD (sexually transmitted disease) V74.5 [facility] [address] [address]- 7437 Jan, Amenorrhea 626.0 [place] [id number] [place] [address] 90813- 2440 08 Jan, 2015 Routine gynecological examination V72.31 ; Screen for STD ( sexually transmitted disease) V74.5 ; Pap test, as part of routine gynecological examination V76.2 ; Breast cancer screening V76.10 and Amenorrhea 626.0 [facility] [address] [address]- 6334 December, [facility] [address] [address]- 8154 Dec, [facility] [address] [address]- 1692 Dec, [facility] [address] [address]- 4863 30 Oct, 2014 [facility] [address] [place] [address] [id number]- 2127 Oct, [facility] [address] [address]- 5105 Oct, [facility] [id number] [place] [address] [place] [address]- 1319 Oct, [facility] [place] [facility] [address] [id number] [place] [address]- 5188 Oct, [facility] [place] [facility] [address] [id number] [place] [address]- 2014 Oct, [facility] [place] [facility] [address] [id number] [place] [address]- 9297 Oct, [facility] [place] [facility] [address] [id number] [place] [address]- 8205 Oct, [facility] [place] [facility] [address] [id number] [place] [address]- 1789 Oct, [facility] [place] [facility] [address] [id number] [place] [address]- 8324 Oct, [facility] [place] [facility] [address] [id number] [place] [address]- 3182 Oct, [facility] [place] [facility] [address] [id number] [place] [address]- 7295 Sep, [facility] [place] [facility] [address] [id number] [place] [address]- 0120 Sep, [facility] [place] [facility] [address] [id number] [place] [address]- 8348 Sep, [facility] [place] [facility] [address] [id number] [place] [address]- 7156 Sep, [facility] [place] [facility] [address] [id number], [place] [address]- 4436 Sep, [facility] [place] [facility] [address] [id number] [place] [address]- 9589 Sep, [facility] [place] [facility] [address] [id number] [place] [address]- 3179 Sep, [facility] [place] [facility] [address] [id number], [place] [address]- 1325 Sep, [facility] [place] [facility] [address] [id number] [place] [address]- 0530 15 Sep, 2014 [facility] [place] [facility] [address] [id number] [place] [address]- 1478 Sep, [facility] [place] [facility] [address] [id number] [place] [address]- 8849 Sep, [facility] [place] [facility] [address] [id number] [place] [address]- 6341 Sep, [facility] [address] [id number] [place] [address]- 6392 Sep, [facility] [place] [facility] [address] [id number] [place] [address]- 7913 Sep, [facility] [place] [facility] [address] [id number] [place] [address]- 1254 Sep, [facility] [place] [facility] [address] [id number] [place] [address]- 6333 Sep, [facility] [place] [facility] [address] [id number] [place] [address]- 2656 Sep, [facility] [place] [facility] [address] [id number] [place] [address]- 1085 Sep, [facility] [place] [facility] [address] [id number] [place] [address]- 3701 Sep, [facility] [place] [facility] [address] [id number] [place] [address]- 9865 Sep, [facility] [place] [facility] [address] [id number] [place] [address]- 1818 Aug, [facility] [place] [facility] [address] [id number] [place] [address]- 8122 Aug, [facility] [place] [facility] [address] [id number] [place] [address]- 0586 Aug, [facility] [place] [facility] [address] [id number] [place] [address]- 5568 Aug, [facility] [place] [facility] [address] [id number] [place] [address]- 0058 08 Aug, 2014 [facility] [place] [facility] [address] [id number] [place] 6055 Aug, [facility] [place] [facility] [address] [id number] [place] [address]- 2718 Aug, [facility] [place] [facility] [address] [id number] [place] [address]- 5169 Aug, [facility] [place] [facility] [address] [id number] [place] [address]- 1239 Aug, [facility] [place] [facility] [address] [id number] [place] [address]- 7020 Aug, [facility] [place] [facility] [address] [id number] [place] [address]- 8294 Aug, [facility] [place] [facility] [address] [id number] [place] [address]- 6548 Aug, [facility] [place] [facility] [address] [id number] [place] [address]- 5632 Jul, [facility] [place] [facility] [address] [id number] [place] [address]- 4740 Jul, [facility] [place] [facility] [address] [id number], [place] [address]- 7086 Jul, [facility] [place] [facility] [address] [id number], [place] [address]- 2860 Jul, [facility] [place] [facility] [address] [id number] [place] [address]- 9472 Jul, [facility] [place] [facility] [address] [id number] [place] [address]- 3077 Jul, [facility] [place] [facility] [address] [id number] [place] [address]- 6600 Jul, [facility] [place] [facility] [address] [id number] [place] [address]- 6433 Jul, [facility] [place] [facility] [address] [id number] [place] [address]- 8312 Jul, [facility] [place] [facility] [address] [id number] [place] [address]- 4815 Jul, [facility] [place] [facility] [address] [id number] [place] [address]- 1014 Jun, [facility] [place] [facility] [address] [id number] [place] [address]- 0691 Jun, [facility] [place] [facility] [address] [id number] [place] [address]- 3974 Jun, [facility] [place] [facility] [address] [id number] [place] [address]- 4445 Jun, [facility] [place] [facility] [address] [id number] [place] [address]- 5458 Jun, [facility] [place] [facility] [address] [id number] [place] [address]- 8706 30 Jun, 2014 [facility] [place] [facility] [address] [id number] [place] [address]- 5724 15 Jun, 2014 [facility] [place] [facility] [address] [id number] [place] [address]- 5186 15 Jun, 2014 [facility] [place] [facility] [address] [id number] [place] [address]- 7295 22 May, 2013 [facility] [place] [facility] [address] [id number] [place] [address]- 8377 22 May, 2013 [facility] [place] [facility] [address] [id number] [place] [address]- 0939 18 May, 2014 [facility] [place] [facility] [address] [id number] [place] [address]- 9049 18 May, 2013 [facility] [place] [facility] [address] [id number] [place] 7027 May, [facility] [place] [facility] [address] [id number] [place] [address]- 2133 May, [facility] [place] [facility] [address] [id number] [place] [address]- 1621 May, [facility] [place] [facility] [address] [id number] [place] [address]- 4296 May, [facility] [place] [facility] [address] [id number] [place] [address]- 7574 Apr, [facility] [place] [facility] [address] [id number] [place] [address]- 0213 Apr, [facility] [place] [facility] [address] [id number] [place] [address]- 2023 Apr, [facility] [place] [facility] [address] [id number] [place] [address]- 2533 Apr, [facility] [place] [facility] [address] [id number] [place] [address]- 5358 Mar, [facility] [place] [facility] [address] [id number] [place] [address]- 5611 Mar, [facility] [place] [facility] [address] [id number] [place] [address]- 8671 Mar, [facility] [place] [facility] [address] [id number] [place] [address]- 8571 Mar, [facility] [place] [facility] [address] [id number] [place] [address]- 3693 Mar, [facility] [place] [facility] [address] [id number] [place] [address]- 1230 Mar, [facility] [place] [facility] [address] [id number] [place] [address]- 7252 Jan, [facility] [place] [facility] [address] [id number] [place] 8830 Jan, [facility] [place] [facility] [address] [id number] [place] [address]- 5196 Jan, [facility] [place] [facility] [address] [id number] [place] [address]- 1078 Jan, [facility] [place] [facility] [address] [id number] [place] [address]- 3034 Jan, [facility] [place] [facility] [address] [id number] [place] [address]- 9191 Jan, [facility] [place] [facility] [address] [id number] [place] [address]- 7664 Jan, [facility] [place] [facility] [address] [id number] [place] [address]- 9236 Jan, [facility] [place] [facility] [address] [id number] [place] [address]- 3995 Jan, [facility] [place] [facility] [address] [id number] [place] [address]- 4188 Jan, [facility] [place] [facility] [address] [id number] [place] [address]- 4371 Jan, [facility] [place] [facility] [address] [id number] [place] [address]- 1575 Jan, [facility] [place] [facility] [address] [id number] [place] [address]- 8475 December, [facility] [place] [facility] [address] [id number] [place] [address]- 1780 December, [facility] [place] [facility] [address] [id number] [place] [address]- 9226 December, [facility] [place] [facility] [address] [id number] [place] [address]- 8492 December, [facility] [place] [facility] [address] [id number] [place] [address]- 9050 Dec, [facility] [place] [facility] [address] [id number] [place] [address]- 8665 Dec, [facility] [place] [facility] [address] [id number] [place] [address]- 8225 Dec, [facility] [place] [facility] [address] [id number] [place] [address]- 2691 Dec, [facility] [place] [facility] [address] [id number] [place] [address]- 5035 Dec, [facility] [place] [facility] [address] [id number] [place] [address]- 5025 Dec, [facility] [place] [facility] [address] [id number] [place] [address]- 0781 Dec, [facility] [place] [facility] [address] [id number] [place] [address]- 1222 Dec, [facility] [place] [facility] [address] [id number] [place] [address]- 7037 Dec, [facility] [place] [facility] [address] [id number] [place] [address]- 8040 Dec, [facility] [place] [facility] [address] [id number] [place] [address]- 9600 Dec, [facility] [place] [facility] [address] [id number] [place] [address]- 7255 Dec, [facility] [place] [facility] [address] [id number] [place] [address]- 6525 Dec, [facility] [place] [facility] [address] [id number] [place] [address]- 3393 Dec, [facility] [place] [facility] [address] [id number] [place] [address]- 2188 Oct, [facility] [place] [facility] [address] [id number] [place] [address]- 1264 Oct, [facility] [place] [facility] [address] [id number] [place] [address]- 1188 Oct, [facility] [place] [facility] [address] [id number] [place] [address]- 5310 Oct, 2013 [facility] [place] [facility] [address] [id number] [place] [address]- 1456 Oct, [facility] [place] [facility] [address] [id number] [place] [address]- 1890 Oct, [facility] [place] [facility] [address] [id number] [place] [id number] Oct, [facility] [place] [facility] [address] [id number] [place] [address]- 8248 Oct, [facility] [place] [facility] [address] [id number] [place] [address]- 2115 Oct, [facility] [place] [facility] [address] [id number] [place] [address]- 9119 Oct, [facility] [place] [facility] [address] [id number] [place] [address]- 5884 Sep, [facility] [place] [facility] [address] [id number] [place] [address]- 2544 Sep, [facility] [place] [facility] [address] [id number] [place] [address]- 0266 Sep, [facility] [place] [facility] [address] [id number] [place] [address]- 6618 Sep, [facility] [place] [facility] [address] [id number], [place] [address]- 3904 Sep, [facility] [place] [facility] [address] [id number], [place] [address]- 5476 Sep, [facility] [place] [facility] [address] [id number] [place] [address]- 9269 Aug, [facility] [place] [facility] [address] [id number] [place] [address]- 3938 Aug, [facility] [place] [facility] [address] [id number] [place] [address]- 1562 Jul, [facility] [place] [facility] [address] [facility] [id number] [place] [address]- 8239 Jul, [facility] [address] [facility] [id number] [place] [address]- 5267 Jul, [facility] [address] [facility] [id number], [place] [address]- 6845 Jul, [facility] [address] [facility] [id number], [place] [address]- 8183 Jul, IMMUNIZATIONS No Known Immunizations SOCIAL HISTORY Never Assessed REASON FOR VISIT pink eye started this morning JStrasserRN PLAN OF CARE Activity Details Follow Up 2 - 3 Days, prn Reason:if symptoms worsen or not improving VITAL SIGNS Height 66 in 2018-04-23 Weight 209.8 lbs 2018-04-23 Temperature 98.3 degrees Fahrenheit 2018-04-23 Heart Rate 110 bpm 2018-04-23 Respiratory Rate 22 2018-04-23 BMI 33.86 kg/m2 2018-04-23 Blood pressure systolic 134 mmHg 2018-04-23 Blood pressure diastolic 90 mmHg 2018-04-23 MEDICATIONS Medication Instructions Dosage Frequency Start Date End Date Duration Status Zofran ODT 4 MG Orally 3 times a day, prn take 1 tablets by Oral route every 8 hours PRN Nausea or Vomiting Sep, Active Potassium 99 MG Orally Once a day 1 tablet 24h Active Tylenol 8 Hour Active Vitamin D 2000 UNIT Orally Once a day 1 tablet 24h Active Vitamin C 500 MG Active Wellbutrin SR 150 MG TAKE ONE TABLET BY MOUTH ONCE DAILY 30 Active Dicyclomine HCl 10 mg Orally 2 times a day as needed 1 capsule 30 days Active Enalapril Maleate 10 mg Orally Once a day 1 tablet 24h 30 days Active Humalog 100 UNIT/ML Subcutaneous pump as per pump-must have appt for refills inject Units by Subcutaneous route every hour per insulin pump 14 Active Suboxone 8-2 MG Sublingual Once a day 2 film under the tongue and allow to dissolve 24h Aug, 28 days Active Gentamicin Sulfate 0.3 % Ophthalmic every 4 hrs 1 drop into affected eye 4h Apr, 05 days Active Glucagon Emergency 1 MG as directed Apr, Active Vitamin B12 100 MCG Orally Once a day 1 tablet 24h Active Lovastatin 40 MG TAKE ONE TABLET BY MOUTH ONCE DAILY WITH A MEAL 30 Active Fish Oil 1000 MG Orally Once a day 2 capsule 24h Active RESULTS No Results PROCEDURES No Known [...]
--- OUTSIDE RECORDS SUMMARY | 2018-08-30 20:28 | XMS REPORT ---
Author Author NOEMY MORGAN Organization [facility] Address [address] 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 Active 28540266 Problem Chronic kidney disease, stage 3 N18.3 Active 129475693 Problem CHI I (cervical intraepithelial neoplasia I) N87.0 Active 763593634 Problem Mild episode of recurrent major depressive disorder F33.0 Active 962426946 Problem Addiction to drug F19.20 Active 908975622 Problem Essential hypertension I10 Active 33669886 Problem Opioid use disorder, severe, in sustained remission F11.21 Active 98924736 Problem Irritable bowel syndrome with constipation K58.1 Active 962292793 ALLERGIES No Information ENCOUNTERS Encounter Location Date Diagnosis [facility] [id number] [place] [address] 85287- 1973 May, [facility] [id number] [place] [address] 89496- 4818 May, [facility] [id number] [place] [address] 04195- 0455 May, Opioid use disorder, severe, in early remission F11.21 [facility] [address] [place] [address] May, Opioid use disorder, severe, in sustained remission F11.21 [facility] [id number] [place] [address] 91167- 8117 Apr, [facility] [id number] [place] [address] 77610- 3711 Apr, [facility] [id number] [place] [address] 46170- 2461 Apr, [facility] [id number] [place] [address] 36488- 9701 Apr, Opioid use disorder, severe, in early remission F11.21 [facility] [id number] [place] [address] 00746 -9135 Apr, Bacterial conjunctivitis of left eye H10.9 [facility] [id number] [place] [address] 44645- 1710 Apr, [facility] [id number] [place] [address] 45171- 4294 Apr, [facility] [id number] [place] [address] 59548- 4001 Mar, Essential hypertension I10 and Irritable bowel syndrome with constipation K58.1 [facility] [id number] [place] [address] 75005- 3150 Mar, [facility] [id number] [place] [address] 89148- 0806 Mar, Chronic kidney disease, stage 3 N18.3 ; 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 ; Opioid use disorder, severe, in sustained remission F11.21 and Mixed hyperlipidemia E78.2 [facility] [id number] [place] [address] 88051- 9235 Mar, Mixed hyperlipidemia E78.2 [facility] [id number] [place] [address] 55143- 8213 Mar, Opioid use disorder, severe, 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 [facility] [id number] [place] [address] 96607- 6881 Mar, [facility] [address] [place] [address] Mar, Opioid use disorder, severe, in sustained remission F11.21 [facility] [id number] [place] [address] 61476- 4161 Jan, Opioid use disorder, severe, 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 [facility] [id number] [place] [address] 49032- 3274 December, Opioid use disorder, severe, 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 [facility] [address] [place] [address] December, Opioid use disorder, severe, in sustained remission F11.21 [facility] [address] 177148- 5326 December, Opioid use disorder, severe, in sustained remission F11.21 and 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 [facility] [address] 94599- 4384 December, Opioid use disorder, severe, 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 [facility] [address] [place] [address] Dec, Opioid use disorder, severe, in sustained remission F11.21 [facility] [id number] [place] [address] 90966- 3880 Dec, 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 ; Unprotected sexual intercourse Z72.51 ; Pain of left thumb M79.645 ; Mixed hyperlipidemia E78.2 ; Gastroparesis K31.84 ; Essential hypertension I10 and Irritable bowel syndrome with constipation K58.1 [facility] [id number] [place] [address] 79884- 5390 Dec, Opioid use disorder, severe, 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 [facility] [id number] [place] [address] 19477- 0457 Oct, [facility] [id number] [place] [address] 40797- 6645 Oct, Opioid use disorder, severe, 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 [id number] [place] [address] 88743- 6375 Oct, [facility] [address] [place] [address] Oct, Opioid use disorder, severe, in sustained remission F11.21 [facility] [id number] [place] [address] 98733- 1267 Sep, [facility] [id number] [place] [address] 59849- 6659 Sep, [facility] [id number] [place] [address] 78117- 9039 Sep, Opioid use disorder, severe, in early remission F11.21 [facility] [id number] [place] [address] 53811- 2716 Aug, Opioid use disorder, severe, 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 [facility] [id number] [place] [address] 52549- 6117 Jul, [facility] [id number] [place] [address] 77999- 6218 Jul, Chronic kidney disease, stage 3 N18.3 ; Dysthymia F34.1 and Opioid use disorder, severe, in sustained remission F11.21 [facility] [address] [place] [address] Jul, Opioid use disorder, severe, in sustained remission F11.21 [facility] [id number] [place] [address] 92328- 8763 Jul, Long-term use of high-risk medication Z79.899 and Chronic kidney disease, stage 3 N18.3 [place] [id number] [place] [address] 38541- 4193 Jul, Opioid use disorder, severe, in early remission F11.21 [place] [facility] [id number] [place] [address] 58108- 5413 Jul, [place] [facility] [id number] [place] [address] 88407- 7104 Jun, [place] [facility] [id number] [place] [address] 43422- 7350 Jun, [place] [id number] [place] [address] 95409- 2708 Jun, Opioid use disorder, moderate, dependence F11.20 and Opioid use disorder, severe, 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 [place] [facility] [id number] [place] [address] 13048- 1073 Jun, [place] [facility] [id number] [place] [address] 82310- 9298 Jun, Long-term use of high-risk medication Z79.899 [place] [id number] [place] [address] 72236- 6660 Jun, CHI I (cervical intraepithelial neoplasia I) N87.0 [place] [facility] [id number] [place] [address] 90051- 7707 May, Opioid use disorder, severe, 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 [place] [id number] [place] [address] 74864- 1698 18 May, 2017 Chronic kidney disease, stage 3 N18.3 [place] [id number] [place] [address] 49017- 5788 14 May, 2017 Chronic kidney disease, stage 3 N18.3 [place] [address] [place] [address] May, Opioid use disorder, severe, in sustained remission F11.21 [facility] [id number] [place] [address] 05209- 3707 Apr, LGSIL on Pap smear of cervix R87.612 [facility] [address] [place] [address] Apr, [facility] [id number] [place] [address] 89581- 9290 Apr, Opioid use disorder, severe, in early remission F11.21 [facility] [id number] [place] [address] 58516- 5752 Apr, Opioid use disorder, severe, in early remission F11.21 [facility] [id number] [place] [address] 68421- 9862 Apr, Opioid use disorder, severe, in early remission F11.21 [facility] [id number] [place] [address] 62810- 0603 18 Apr, 2017 Opioid use disorder, severe, 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 [facility] [id number] [place] [address] 80146- 8394 14 Apr, 2017 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 [facility] [id number] [place] [address] 46901- 6741 10 Apr, 2017 Opioid use disorder, severe, in early remission F11.21 [facility] [address] [place] [address] Apr, Opioid use disorder, severe, in sustained remission F11.21 [facility] [id number] [place] [address] 80852- 0350 09 Apr, 2017 Opioid use disorder, severe, 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 [facility] [id number] [place] [address] 88802- 9595 02 Apr, 2017 Mild episode of recurrent major depressive disorder F33.0 and Right acute serous otitis media, recurrence not specified H65.01 [facility] [id number] [address]- 7553 Mar, [facility] [id number] [place] [address] 11981- 4260 Mar, Opioid use disorder, severe, 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 [facility] [id number] [place] [address] 94594- 0277 Mar, [facility] [address] [place] [address] Mar, Opioid use disorder, severe, in sustained remission F11.21 [facility] [address] [place] [address] Mar, Opioid use disorder, severe, in sustained remission F11.21 [facility] [id number] [place] [address] 59887- 1712 Mar, Opioid use disorder, severe, in early remission F11.21 [facility] [id number] [place] [address] 32799- 9307 Jan, Opioid use disorder, severe, 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 [facility] [address] [place] [address] Jan, Opioid use disorder, severe, in sustained remission F11.21 [facility] [address] [place] [address] Jan, Opioid use disorder, severe, in sustained remission F11.21 [facility] [id number] [place] [address] 01406- 5060 Jan, Opioid use disorder, severe, 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 [facility] [address] [place] [address] Jan, Opioid use disorder, severe, in sustained remission F11.21 [facility] [id number] [place] [address] 57779- 8714 December, Opioid use disorder, severe, 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 [facility] [address] [place] [address] December, Opioid use disorder, severe, in sustained remission F11.21 [facility] [id number] [place] [address] 09131- 9875 17 Dec, 2016 Routine gynecological examination Z01.419 and Chronic kidney disease, stage 3 N18.3 [facility] [id number] [place] [address] 15564- 3236 December, Chronic kidney disease, stage 3 N18.3 ; 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 ; Gastroparesis K31.84 ; Essential hypertension I10 and Irritable bowel syndrome with constipation K58.1 [facility] [address] [place] [address] December, Opioid use disorder, severe, in sustained remission F11.21 [place] [id number] [place] [address] 96813- 3590 December, Opioid use disorder, severe, in early remission F11.21 [facility] [address] [place] [address] December, Opioid use disorder, severe, in sustained remission F11.21 [place] [id number] [place] [address] 01254- 2390 December, Encounter for therapeutic drug level monitoring Z51.81 [facility] [address] [place] [address] December, Opioid use disorder, severe, in sustained remission F11.21 [facility] [address] [place] [address] Dec, Opioid use disorder, severe, in sustained remission F11.21 [place] [id number] [place] [address] 70792- 3147 Dec, Opioid use disorder, severe, 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 [place] [id number] [place] [address] 56102- 8672 Dec, [facility] [address] [place] [address] Dec, Opioid use disorder, severe, in sustained remission F11.21 [place] [id number] [place] [address] 84041- 6650 Dec, Opioid use disorder, severe, in early remission F11.21 [facility] [address] [place] [address] 06 Dec, 2016 Opioid use disorder, severe, in sustained remission F11.21 [facility] [id number] [place] [address] 93693- 4332 Dec, 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 [facility] [address] 32586- 0414 Dec, Opioid use disorder, severe, in sustained remission F11.21 ; Encounter for therapeutic drug level monitoring Z51.81 and Other terminal system operator ( 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 Z79.899 [facility] [address] [place] [address] 31 Oct, 2016 Opioid use disorder, severe, in sustained remission F11.21 [facility] [address] 68854- 0496 23 Oct, 2016 Opioid use disorder, severe, in early remission F11.21 [facility] [id number] [place] [address] 32023- 8856 Oct, [facility] [address] [place] [address] Oct, Opioid use disorder, severe, in sustained remission F11.21 [facility] [id number] [place] [address] 86943- 8426 15 Oct, 2016 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 [facility] [id number] [place] [address] 73276- 1641 14 Oct, 2016 Routine gynecological examination Z01.419 [facility] [id number] [place] [address] 52732- 5488 07 Oct, 2016 Opioid use disorder, severe, in early remission F11.21 [facility] [id number] [place] [address] 19825- 8909 06 Oct, 2016 Opioid use disorder, severe, in early remission F11.21 [facility] [address] [place] [address]- 9717 06 Oct, 2016 Opioid use disorder, severe, in early remission F11.21 [facility] [address] [place] [address] Oct, Opioid use disorder, severe, in sustained remission F11.21 [facility] [id number] [place] [address] 85622- 1890 24 Oct, 2016 Opioid use disorder, severe, in early remission F11.21 [facility] [id number] [place] [address] 77415- 6187 Oct, Opioid use disorder, severe, in early remission F11.21 [facility] [address] [place] [address] Oct, Opioid use disorder, severe, in sustained remission F11.21 [facility] [id number] [place] [address] 65019- 5531 Oct, Opioid use disorder, severe, in sustained remission F11.21 ; Encounter for therapeutic drug level monitoring Z51.81 and Other nursing 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.899 [facility] [id number] [place] [address] 04352- 2294 16 Oct, 2016 [facility] [address] [place] [address] 14 Oct, 2016 Opioid use disorder, severe, in early remission F11.21 [facility] [address] [place] [address] 10 Oct, 2016 Opioid use disorder, severe, in early remission F11.21 [facility] [id number] [place] [address] 93833- 3851 09 Oct, 2016 Opioid use disorder, severe, in early remission F11.21 [facility] [id number] [place] [address] 38300- 2706 08 Oct, 2016 [facility] [id number] [place] [address] 07494- 2136 07 Oct, 2016 [facility] [id number] [place] [address] 39852- 9484 Oct, [facility] [address] [place] [address] Oct, Opioid use disorder, severe, in early remission F11.21 [facility] [id number] [place] [address] 82302- 4856 Sep, Opioid use disorder, severe, in early remission F11.21 [facility] [address] [place] [address] Sep, Opioid use disorder, severe, in early remission F11.[address] 63631- 0179 Sep, Opioid use disorder, severe, in early remission F11.21 ; Other terminal system operator (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 Z79.899 and Encounter for therapeutic drug level monitoring Z51.[address] 04732- 5719 Sep, [facility] [address] [place] [id number] [place] [address] 02804- 6777 Sep, [facility] [address] [place] [address] 83686- 2496 Sep, Opioid use disorder, severe, 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 ; 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 ; Chronic kidney disease, stage 3 N18.3 ; Essential hypertension I10 and Irritable bowel syndrome with constipation K58.1 [facility] [address] [place] [address] Sep, Opioid use disorder, severe, in early remission F11.21 [facility] [address] [place] [address] Sep, Opioid use disorder, severe, in early remission F11.21 [facility] [address] [place] [id number] [place] [address] 05776- 3262 Sep, Opioid use disorder, moderate, dependence F11.[address] 73461- 2216 Sep, Opioid use disorder, moderate, dependence F11.20 [facility] [address] [place] [address] Sep, Opioid use disorder, severe, in early remission F11.21 [facility] [id number] [place] [address] 88951- 0869 Sep, Opioid use disorder, severe, in early remission F11.21 [facility] [address] [place] [address] Aug, Opioid use disorder, severe, in early remission F11.21 [facility] [id number] [place] [address] 33762- 5889 Aug, Opioid use disorder, moderate, dependence F11.20 [facility] [address] [address] Aug, Bug bite without infection, initial encounter W57.XXXA [facility] [address] [place] [address] 43758- 4098 Aug, Opioid use disorder, moderate, dependence F11.20 [facility] [address] [place] [address] Aug, [facility] [address] [place] [id number] [place] [address] 22698- 4365 Aug, Opioid use disorder, severe, 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 ; Other terminal system operator (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 Z79.899 ; Encounter for therapeutic drug level monitoring Z51.81 and 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 [facility] [address] [place] [address] Aug, [facility] [address] [place] [id number] [place] [address] 09694- 8444 Aug, Opioid use disorder, moderate, dependence F11.20 ; Other nursing home (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 Z79.899 and Encounter for therapeutic drug level monitoring Z51.81 [facility] [address] [place] [id number] [place] [address] 30992- 3976 Aug, [facility] [address] [place], [place] [id number] [place] [address] 98597- 6199 Aug, Non-intractable vomiting with nausea, unspecified vomiting type R11.2 [facility] [address] 64068- 1799 Aug, Opioid use disorder, moderate, dependence F11.20 and Non- intractable vomiting with nausea, unspecified vomiting type R11.2 [facility] [address] 74310- 9588 Aug, [facility] [address] 13095- 4029 Aug, Opioid use disorder, moderate, dependence F11.20 [facility] [id number] [place] [address] 27093- 0750 Aug, [facility] [address] 65336- 9990 Jul, 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 and Opioid use disorder, moderate, dependence F11.20 [facility] [address] [place] [address] Jul, [facility] [address] [address] Jul, [facility] [id number] [place] [id number] Jul, [facility] [id number] [place] [id number] Jul, Addiction to drug F19.20 and Chronic kidney disease, stage 3 N18.3 [facility] [address] [place] [address] Jul, Counseling on substance use and abuse Z71.89 [facility] [id number] [place] [address] Jul, Chronic kidney disease, stage 3 N18.3 [facility] [address] [address] Jul, 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 ; Diarrhea, unspecified type R19.7 and Essential hypertension I[id number] [place] [phone] Jul, [facility] [id number] [place] [phone] Jun, [facility] [place] [address] [address]- [address]296 Jun, [facility] [address] 74445- 1168 Apr, 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 [place] [address] 46674- 8620 Apr, Sore throat and laryngitis J06.0 and Non-intractable vomiting with nausea, unspecified vomiting type R11.2 [place] [address] 00508- 2526 Apr, [facility] [address] [place] [id number] [place] [address] 41194- 8231 Mar, [place] [address] [place] [id number] [place] [address] 13432- 9898 Jan, [place] [address] [place] [id number] [place] [address] 63657- 5316 Jan, [place] [address] [place] [id number] [place] [address] 42316- 9180 Jan, [facility] [address] [place] [id number] [place] [address] 69561- 7035 December, 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 ; Gastroparesis K31.84 ; Mixed hyperlipidemia E78.2 ; Chronic kidney disease, stage 3 N18.3 ; Dysthymia F34.1 and Acute bilateral low back pain without sciatica M54.5 [place] [address] 76672- 8886 December, [facility] [address] [place] [id number] [place] [address] 61761- 5619 December, [facility] [address] 10778- 3939 Aug, Depression F32.9 and Gastroparesis K31.84 [facility] [address] 09095- 6315 Aug, Gastroparesis K31.84 [facility] [address] 44351- 0194 Jul, Recurrent UTI N39.0 ; Chronic kidney disease, stage 3 N18.3 and 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 [facility] [address] 73234- 6765 Jul, [facility] [address] [id number] Jul, Dental examination Z01.20 and Dental caries K02.9 [facility] [address] 89953- 6319 Jul, [facility] [address] [place] [id number] [place] [address] 96616 -9017 Jul, Dysuria R30.0 ; Urinary tract infection N39.0 and Nausea R11.0 [facility] [address] [place] [id number] [place] [address] 58378- 2157 Jun, Dysuria R30.0 [facility] [address] 36853- 7482 Jun, Dysuria R30.0 [facility] [address] 90444- 0834 Jun, Dysuria R30.0 [facility] [address] [place] [id number] [place] [address] 12012- 9474 Jun, [place] [address] [address] 6001 Jun, Acute cystitis with hematuria N30.01 [place] [id number] [place] [address] 82262- 7518 May, [place] [id number] [place] [address] 52980- 7610 Apr, Diabetes mellitus without mention of complication, type I [ juvenile type], not stated as uncontrolled 250.01 ; Gastroparesis due to DM 250.60 ; Contraception management V25.9 and Renal insufficiency 593.9 [place] [id number] [place] [address] 06496- 2079 Apr, [place] [id number] [place] [address] 10432- 5526 Apr, [place] [id number] [place] [address] 01856- 2401 Mar, [place] [id number] [place] [address] 35241- 1612 Mar, Hyperlipidemia 272.4 and Hypertensive heart and chronic kidney disease, benign, without heart failure and with chronic kidney disease stage I through stage IV, or unspecified 404.10 [id number] [place] [address] 32685- 4776 Mar, Hyperlipidemia 272.4 ; Hyponatremia 276.1 ; 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 ; Hypertensive heart and chronic kidney disease, benign, without heart failure and with chronic kidney disease stage I through stage IV, or unspecified 404.10 ; Proteinuria 791.0 and Chronic kidney disease (CKD), stage III (moderate) 585.3 [place] [id number] [place] [address] 24678- 9396 Mar, [place] [id number] [place] [address] 84431- 6882 Mar, Elevated blood sugar level 790.29 [place] [id number] [place] [address] [place] [address] 27[address] 07 Mar, 2015 Low grade squamous intraepithelial lesion (LGSIL) on cervical Pap smear 795.03 [facility] [address] [address]- 9733 Mar, Amenorrhea 626.0 [facility] [address] [address]- 7493 15 Jan, 2015 Amenorrhea 626.0 ; Routine gynecological examination V72.31 and Screen for STD (sexually transmitted disease) V74.5 [facility] [address] 8648 11 Jan, 2015 Amenorrhea 626.0 [facility] [address] 4111 08 Jan, 2015 Routine gynecological examination V72.31 ; Screen for STD ( sexually transmitted disease) V74.5 ; Pap test, as part of routine gynecological examination V76.2 ; Breast cancer screening V76.10 and Amenorrhea 626.0 [facility] [address] [address]- 1716 December, [facility] [address] 0245 Dec, [facility] [address] 8151 Dec, [facility] [address] [address]- 1065 Oct, [facility] [address] [address]- 0394 Oct, [facility] [address] [address]- 6497 Oct, [facility] [address] [address] 2546 Oct, [facility] [address] [address]- 4615 Oct, [facility] [place] [facility] [address] [id number] [place] [address]- 8063 Oct, [facility] [place] [facility] [address] [id number] [place] [address]- 8979 Oct, [facility] [place] [facility] [address] [id number] [place] [address]- 8804 Oct, [facility] [place] [facility] [address] [id number] [place] [address]- 8557 Oct, [facility] [place] [facility] [address] [id number] [place] [address]- 1120 Oct, [facility] [place] [facility] [address] [id number] [place] [address]- 0448 Oct, [facility] [place] [facility] [address] [id number] [place] [address]- 5888 Sep, [facility] [place] [facility] [address] [id number] [place] [address]- 1695 Sep, [facility] [place] [facility] [address] [id number] [place] [address]- 1491 Sep, [facility] [place] [facility] [address] [id number] [place] [address]- 1450 Sep, [facility] [place] [facility] [address] [id number] [place] [address]- 9593 Sep, [facility] [place] [facility] [address] [id number] [address]- 5746 Sep, [facility] [place] [facility] [address] [id number] [place] [address]- 2099 Sep, [facility] [place] [facility] [address] [id number] [place] [address]- 3580 Sep, [facility] [place] [facility] [address] [id number] [place] [address]- 8382 Sep, [facility] [place] [facility] [address] [id number] [place] [address]- 0237 15 Sep, 2014 [facility] [address] [id number] [place] [address]- 2950 Sep, [facility] [address] [id number] [place] [address]- 7680 Sep, [facility] [address] [id number] [place] [address]- 7187 Sep, [facility] [address] [id number] [place] [address]- 8519 Sep, [facility] [address] [id number] [place] [address]- 1636 Sep, [facility] [address] [id number] [place] [address]- 9808 Sep, [facility] [address] [id number] [place] [address]- 9444 Sep, [facility] [address] [id number] [place] [address]- 3349 Sep, [facility] [address] [id number] [place] [address]- 7238 Sep, [facility] [address] [id number] [place] [address]- 7999 Sep, [facility] [address] [id number] [place] [address]- 0439 Aug, [facility] [address] [id number] [place] [address]- 8869 Aug, [facility] [place] [facility] [address] [id number] [place] [address]- 7219 Aug, [facility] [place] [facility] [address] [id number] [place] [address]- 3921 Aug, [facility] [address] [id number] [place] [address]- 8978 Aug, [facility] [place] [facility] [address] [id number] [place] 7980 Aug, [facility] [place] [facility] [address] [id number] [place] [address]- 8383 Aug, [facility] [place] [facility] [address] [id number] [place] [address]- 2115 Aug, [facility] [place] [facility] [address] [id number] [place] [address]- 8814 Aug, [facility] [place] [facility] [address] [id number] [place] 8268 Aug, [facility] [place] [facility] [address] [id number] [place] [address]- 5420 Aug, [facility] [place] [facility] [address] [id number] [place] [address]- 8770 Aug, [facility] [place] [facility] [address] [id number] [place] [address]- 6420 Jul, [facility] [place] [facility] [address] [id number] [place] [address]- 5295 Jul, [facility] [place] [facility] [address] [id number] [place] [address]- 7529 Jul, [facility] [place] [facility] [address] [id number] [place] [address]- 2862 Jul, [facility] [place] [facility] [address] [id number] [address]- 8970 Jul, [facility] [place] [facility] [address] [id number] [place] [address]- 1596 Jul, [facility] [place] [facility] [address] [id number] [place] [address]- 7076 Jul, [facility] [place] [facility] [address] [id number] [place] 1291 Jul, [facility] [place] [facility] [address] [id number] [address]- 1046 Jul, [facility] [place] [facility] [address] [id number] [place] [address]- 5672 Jul, [facility] [place] [facility] [address] [id number] [place] [address]- 3509 Jun, [facility] [place] [facility] [address] [id number] [place] [address]- 3364 Jun, [facility] [place] [facility] [address] [id number] [place] [address]- 4515 Jun, [facility] [place] [facility] [address] [id number] [place] [address]- 8853 Jun, [facility] [place] [facility] [address] [id number] [place] [address]- 1650 Jun, [facility] [place] [facility] [address] [id number] [place] [address]- 6444 Jun, [facility] [place] [facility] [address] [id number] [place] [address]- 8070 Jun, [facility] [place] [facility] [address] [id number] [place] [address]- 4869 15 Jun, 2014 [facility] [place] [facility] [address] [id number] [place] [address]- 9562 22 May, 2014 [facility] [place] [facility] [address] [id number] [place] [address]- 4198 22 May, 2014 [facility] [place] [facility] [address] [id number] [address]- 6313 18 May, 2014 [facility] [place] [facility] [address] [id number] [place] [address]- 0365 18 May, 2014 [facility] [place] [facility] [address] [id number] [place] [address]- 6483 09 May, 2013 [facility] [place] [facility] [address] [id number] [place] [address]- 2210 08 Sep, 2013 [facility] [place] [facility] [address] [id number] [place] [address]- 3602 May, [facility] [place] [facility] [address] [id number] [place] [address]- 1912 May, [facility] [place] [facility] [address] [id number] [place] [address]- 7963 Apr, [facility] [place] [facility] [address] [id number] [place] [address]- 4024 Apr, [facility] [place] [facility] [address] [id number] [place] [address]- 2270 Apr, [facility] [place] [facility] [address] [id number] [place] [address]- 5483 Apr, [facility] [place] [facility] [address] [id number] [place] [address]- 5612 Mar, [facility] [place] [facility] [address] [id number] [place] [address]- 7891 Mar, [facility] [place] [facility] [address] [id number] [place] [address]- 8543 Mar, [facility] [place] [facility] [address] [id number] [place] [address]- 4681 Mar, [facility] [place] [facility] [address] [id number] [place] 1094 Mar, [facility] [place] [facility] [address] [id number] [place] [address]- 8494 Mar, [facility] [place] [facility] [address] [id number] [place] [address]- 6814 Jan, [facility] [place] [facility] [address] [id number] [place] [address]- 1695 Jan, [facility] [place] [facility] [address] [id number] [place] [address]- 5961 Jan, [facility] [place] [facility] [address] [id number] [place] [address]- 9928 Jan, [facility] [place] [facility] [address] [id number] [place] [address]- 6964 Jan, [facility] [place] [facility] [address] [id number] [place] [address]- 2378 Jan, [facility] [place] [facility] [address] [id number] [place] [address]- 1260 Jan, [facility] [place] [facility] [address] [id number] [place] [address]- 7397 Jan, [facility] [place] [facility] [address] [id number] [place] [address]- 0742 Jan, [facility] [place] [facility] [address] [id number] [place] [address]- 8446 Jan, [facility] [place] [facility] [address] [id number] [place] [address]- 4870 Jan, [facility] [place] [facility] [address] [id number] [place] [address]- 8664 Jan, [facility] [place] [facility] [address] [id number] [place] [address]- 8341 December, [facility] [place] [facility] [address] [id number] [place] [address]- 6132 December, [facility] [place] [facility] [address] [id number] [place] [address]- 1222 December, [facility] [place] [facility] [address] [id number] [place] [address]- 2786 December, [facility] [place] [facility] [address] [id number] [place] [address]- 0022 Dec, [facility] [place] [facility] [address] [id number] [place] [address]- 2576 Dec, [facility] [place] [facility] [address] [id number] [place] [address]- 6282 Dec, [facility] [place] [facility] [address] [id number] [place] [address]- 8820 Dec, [facility] [place] [facility] [address] [id number] [place] [address]- 0759 Dec, [facility] [place] [facility] [address] [id number] [place] [address]- 8156 Dec, [facility] [place] [facility] [address] [id number] [place] [address]- 2533 Dec, [facility] [place] [facility] [address] [id number] [place] [address]- 3259 Dec, [facility] [place] [facility] [address] [id number] [place] [address]- 9990 Dec, [facility] [place] [facility] [address] [id number] [place] [address]- 9638 Dec, [facility] [place] [facility] [address] [id number] [place] [address]- 8972 Dec, [facility] [place] [facility] [address] [id number] [place] [address]- 0645 Dec, [facility] [place] [facility] [address] [id number] [place] [address]- 4458 Dec, [facility] [place] [facility] [address] [id number] [place] [address]- 6592 Dec, [facility] [place] [facility] [address] [id number] [place] [address]- 4307 Oct, [facility] [place] [facility] [address] [id number] [place] [address]- 3145 31 Oct, 2013 [facility] [place] [facility] [address] [id number] [place] [address]- 3090 Oct, [facility] [place] [facility] [address] [id number] [place] [address]- 2908 29 Oct, 2013 [facility] [place] [facility] [address] [id number] [place] [address]- 1758 28 Oct, 2013 [facility] [place] [facility] [address] [id number] [place] [address]- 9352 Oct, [facility] [place] [facility] [address] [id number] [place] [id number] Oct, [facility] [place] [facility] [address] [id number] [place] [address]- 7641 Oct, [facility] [place] [facility] [address] [id number] [place] [address]- 5705 Oct, [facility] [place] [facility] [address] [id number] [place] [address]- 3702 Oct, [facility] [place] [facility] [address] [id number] [place] [address]- 8868 Sep, [facility] [place] [facility] [address] [id number] [place] [address]- 7646 Sep, [facility] [place] [facility] [address] [id number] [place] [address]- 5264 Sep, [facility] [place] [facility] [address] [id number] [place] [address]- 9284 Sep, [facility] [place] [facility] [address] [id number] [place] [address]- 1144 Sep, [facility] [place] [facility] [address] [id number] [place] [address]234 Sep, [facility] [place] [facility] [address] [id number] [place] [address]- 8803 Aug, [facility] [place] [facility] [address] [id number] [place] [address]- 9596 18 Aug, 2013 [facility] [place] [facility] [address] [id number] [place] [address]- 3472 Jul, [facility] [place] [facility] [address] [id number] [place] [address]- 0346 Jul, [facility] [place] [facility] [address] [id number] [place] [address]- 6126 Jul, [facility] [address] [facility] [id number] [place] [address]- 7094 Jul, [facility] [address] [facility] [id number] [address]- 4977 Jul, IMMUNIZATIONS No Known Immunizations SOCIAL HISTORY Never Assessed REASON FOR VISIT suboxone rx (04/24-05/21) PLAN OF CARE VITAL SIGNS MEDICATIONS Medication [...]
--- OUTSIDE RECORDS SUMMARY | 2018-08-30 20:29 | XMS REPORT ---
Author Author NOEMY MORGAN Organization [facility] Address [address] 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 Active 13654114 Problem Chronic kidney disease, stage 3 N18.3 Active 032262973 Problem CHI I (cervical intraepithelial neoplasia I) N87.0 Active 015024838 Problem Mild episode of recurrent major depressive disorder F33.0 Active 317947669 Problem Addiction to drug F19.20 Active 128899514 Problem Essential hypertension I10 Active 42259386 Problem Opioid use disorder, severe, in sustained remission F11.21 Active 96728241 Problem Irritable bowel syndrome with constipation K58.1 Active [id number] ALLERGIES No Information ENCOUNTERS Encounter Location Date Diagnosis [facility] [id number] [place] [address] 12558- 7084 May, [facility] [id number] [place] [address] 36947- 4896 May, [facility] [id number] [place] [address] 78517- 0413 May, Opioid use disorder, severe, in early remission F11.21 [facility] [address] [place] [address] May, Opioid use disorder, severe, in sustained remission F11.21 [facility] [id number] [place] [address] 45177- 2999 Apr, [facility] [id number] [place] [address] 14427- 5872 Apr, [facility] [id number] [place] [address] 97241- 3486 Apr, [facility] [id number] [place] [address] 36067- 0055 Apr, Opioid use disorder, severe, in early remission F11.21 [facility] [id number] [place] [address] 12479 -7781 Apr, Bacterial conjunctivitis of left eye H10.9 [facility] [id number] [place] [address] 73444- 1793 Apr, [facility] [id number] [place] [address] 05534- 0102 Apr, [facility] [id number] [place] [address] 92300- 0491 Mar, Essential hypertension I10 and Irritable bowel syndrome with constipation K58.1 [facility] [id number] [place] [address] 03865- 0369 Mar, [facility] [id number] [place] [address] 95451- 8666 Mar, Chronic kidney disease, stage 3 N18.3 ; 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 ; Opioid use disorder, severe, in sustained remission F11.21 and Mixed hyperlipidemia E78.2 [facility] [id number] [place] [address] 76968- 1075 Mar, Mixed hyperlipidemia E78.2 [facility] [id number] [place] [address] 38715- 2301 Mar, Opioid use disorder, severe, in early remission F11.21 [facility] [id number] [place] [address] 85743- 4268 Mar, [facility] [address] [place] [address] Mar, Opioid use disorder, severe, in sustained remission F11.21 [facility] [id number] [place] [address] 36786- 0688 Jan, Opioid use disorder, severe, 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 [facility] [id number] [place] [address] 34826- 0730 December, Opioid use disorder, severe, in early remission F11.21 [facility] [address] [place] [address] December, Opioid use disorder, severe, in sustained remission F11.21 [facility] [address] 426132- 8225 December, Opioid use disorder, severe, in sustained remission F11.21 and 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 [facility] [address] 91181- 4440 December, Opioid use disorder, severe, 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 [facility] [address] [place] [address] Dec, Opioid use disorder, severe, in sustained remission F11.21 [facility] [id number] [place] [address] 37197- 3747 Dec, 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 ; Unprotected sexual intercourse Z72.51 ; Pain of left thumb M79.645 ; Mixed hyperlipidemia E78.2 ; Gastroparesis K31.84 ; Essential hypertension I10 and Irritable bowel syndrome with constipation K58.1 [facility] [id number] [place] [address] 36924- 3313 Dec, Opioid use disorder, severe, in early remission F11.21 [facility] [id number] [place] [address] 88421- 7660 Oct, [facility] [id number] [place] [address] 49815- 3309 Oct, Opioid use disorder, severe, 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 [facility] [address] [address] 9097 Oct, [facility] [id number] [place] [address] 61786- 1676 Oct, Opioid use disorder, severe, in early remission F11.21 [facility] [address] [place] [address] 70284- 3366 Oct, [facility] [id number] [place] [address] 71876- 0533 Oct, [facility] [address] [place] [address] Oct, Opioid use disorder, severe, in sustained remission F11.21 [facility] [id number] [place] [address] 29609- 7872 Sep, [facility] [id number] [place] [address] 95884- 8009 Sep, [facility] [id number] [place] [address] 69605- 3647 Sep, Opioid use disorder, severe, in early remission F11.21 [facility] [id number] [place] [address] 84675- 0764 Aug, Opioid use disorder, severe, 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 [facility] [address] [place] [address] 50494- 7067 Jul, [facility] [id number] [place] [address] 10691- 0766 Jul, Chronic kidney disease, stage 3 N18.3 ; Dysthymia F34.1 and Opioid use disorder, severe, in sustained remission F11.21 [facility] [address] [place] [address] Jul, Opioid use disorder, severe, in sustained remission F11.21 [facility] [id number] [place] [address] 61709- 1133 Jul, Long-term use of high-risk medication Z79.899 and Chronic kidney disease, stage 3 N18.3 [facility] [id number] [place] [address] 33444- 3599 Jul, Opioid use disorder, severe, in early remission F11.21 [facility] [id number] [place] [address] 25748- 9606 Jul, [facility] [id number] [place] [address] 74345- 1274 Jun, [facility] [id number] [place] [address] 35855- 8341 Jun, [facility] [id number] [place] [address] 61772- 8438 Jun, Opioid use disorder, moderate, dependence F11.20 and Opioid use disorder, severe, 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 [facility] [id number] [place] [address] 82793- 3636 Jun, [facility] [id number] [place] [address] 14595- 6949 Jun, Long-term use of high-risk medication Z79.899 [facility] [id number] [place] [address] 01532- 3843 Jun, CHI I (cervical intraepithelial neoplasia I) N87.0 [facility] [id number] [place] [address] 00216- 0705 May, Opioid use disorder, severe, 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 [facility] [address] [place] [address] 53053- 2752 18 May, 2017 Chronic kidney disease, stage 3 N18.3 [facility] [id number] [place] [address] 66327- 4334 14 May, 2017 Chronic kidney disease, stage 3 N18.3 [place] [place] [address] May, Opioid use disorder, severe, in sustained remission F11.21 [facility] [id number] [place] [address] 49659- 1168 Apr, LGSIL on Pap smear of cervix R87.612 [facility] [address] [place] [address] Apr, [facility] [id number] [place] [address] 31440- 5981 Apr, Opioid use disorder, severe, in early remission F11.21 [facility] [id number] [place] [address] 16886- 9831 Apr, Opioid use disorder, severe, in early remission F11.21 [facility] [id number] [place] [address] 32299- 9533 Apr, Opioid use disorder, severe, in early remission F11.21 [facility] [id number] [place] [address] 26594- 7824 18 Apr, 2017 Opioid use disorder, severe, in early remission F11.21 [facility] [id number] [place] [address] 40860- 6177 14 Apr, 2017 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 [facility] [id number] [place] [address] 04359- 4741 10 Apr, 2017 Opioid use disorder, severe, 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 [facility] [address] [place] [address] Apr, Opioid use disorder, severe, in sustained remission F11.21 [facility] [id number] [place] [address] 88449- 2408 09 Apr, 2017 Opioid use disorder, severe, 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 [facility] [id number] [place] [address] 95971- 1983 02 Apr, 2017 Mild episode of recurrent major depressive disorder F33.0 and Right acute serous otitis media, recurrence not specified H65.01 [facility] [id number] [address]- 5978 Mar, [facility] [id number] [place] [address] 08770- 9779 Mar, Opioid use disorder, severe, 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 [facility] [address] [place] [address] 55857- 4565 Mar, [facility] [address] [place] [address] Mar, Opioid use disorder, severe, in sustained remission F11.21 [facility] [address] [place] [address] Mar, Opioid use disorder, severe, in sustained remission F11.21 [facility] [id number] [place] [address] 17353- 1003 Mar, Opioid use disorder, severe, 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 [facility] [id number] [place] [address] 66976- 5480 Jan, Opioid use disorder, severe, 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 [facility] [address] [place] [address] Jan, Opioid use disorder, severe, in sustained remission F11.21 [facility] [address] [place] [address] Jan, Opioid use disorder, severe, in sustained remission F11.21 [facility] [id number] [place] [address] 95480- 1987 Jan, Opioid use disorder, severe, 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 [facility] [address] [place] [address] Jan, Opioid use disorder, severe, in sustained remission F11.21 [facility] [id number] [place] [address] 14527- 7757 December, Opioid use disorder, severe, 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 [facility] [address] [place] [address] December, Opioid use disorder, severe, in sustained remission F11.21 [facility] [address] [place] [address] 33161- 8177 17 Dec, 2016 Routine gynecological examination Z01.419 and Chronic kidney disease, stage 3 N18.3 [facility] [id number] [place] [address] 58387- 8752 December, Chronic kidney disease, stage 3 N18.3 ; 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 ; Gastroparesis K31.84 ; Essential hypertension I10 and Irritable bowel syndrome with constipation K58.1 [facility] [address] [place] [address] December, Opioid use disorder, severe, in sustained remission F11.21 [place] [id number] [place] [address] 38658- 1337 December, Opioid use disorder, severe, in early remission F11.21 [facility] [address] [place] [address] December, Opioid use disorder, severe, in sustained remission F11.21 [place] [id number] [place] [address] 33438- 0179 December, Encounter for therapeutic drug level monitoring Z51.81 [facility] [address] [place] [address] December, Opioid use disorder, severe, in sustained remission F11.21 [facility] [address] [place] [address] Dec, Opioid use disorder, severe, in sustained remission F11.21 [address] [id number] [place] [address] 31597- 1979 Dec, Opioid use disorder, severe, 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 [address] [id number] [place] [address] 97886- 3408 Dec, [facility] [address] [place] [address] Dec, Opioid use disorder, severe, in sustained remission F11.21 [address] [id number] [place] [address] 63931- 0887 Dec, Opioid use disorder, severe, in early remission F11.21 [facility] [address] [place] [address] 06 Dec, 2016 Opioid use disorder, severe, in sustained remission F11.21 [facility] [id number] [place] [address] 98733- 5234 Dec, 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 [facility] [address] 30391- 0961 Dec, Opioid use disorder, severe, in sustained remission F11.21 ; Encounter for therapeutic drug level monitoring Z51.81 and 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 [facility] [address] [place] [address] 31 Oct, 2016 Opioid use disorder, severe, in sustained remission F11.21 [facility] [address] 59101- 2737 23 Oct, 2016 Opioid use disorder, severe, in early remission F11.21 [facility] [id number] [place] [address] 84138- 7748 Oct, [facility] [address] [place] [address] Oct, Opioid use disorder, severe, in sustained remission F11.21 [facility] [id number] [place] [address] 04797- 4868 15 Oct, 2016 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 [facility] [id number] [place] [address] 46203- 3692 14 Oct, 2016 Routine gynecological examination Z01.419 [facility] [id number] [place] [address] 84880- 4468 07 Oct, 2016 Opioid use disorder, severe, in early remission F11.21 [facility] [id number] [place] [address] 73396- 5264 06 Oct, 2016 Opioid use disorder, severe, in early remission F11.21 [facility] [address] [place] [address]- 0512 06 Oct, 2016 Opioid use disorder, severe, in early remission F11.21 [facility] [address] [place] [address] Oct, Opioid use disorder, severe, in sustained remission F11.21 [facility] [id number] [place] [address] 60634- 7110 24 Oct, 2016 Opioid use disorder, severe, in early remission F11.21 [facility] [id number] [place] [address] 69342- 8891 Oct, Opioid use disorder, severe, in early remission F11.21 [facility] [address] [place] [address] Oct, Opioid use disorder, severe, in sustained remission F11.21 [facility] [id number] [place] [address] 78624- 5556 Oct, Opioid use disorder, severe, in sustained remission F11.21 ; Encounter for therapeutic drug level monitoring Z51.81 and Other penitentiary ( 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 Z79.899 [facility] [id number] [place] [address] 84982- 6841 16 Oct, 2016 [facility] [address] [place] [address] 14 Oct, 2016 Opioid use disorder, severe, in early remission F11.21 [facility] [address] [place] [address] 10 Oct, 2016 Opioid use disorder, severe, in early remission F11.21 [facility] [id number] [place] [address] 51445- 0857 09 Oct, 2016 Opioid use disorder, severe, in early remission F11.21 [facility] [id number] [place] [address] 27929- 1196 08 Oct, 2016 [facility] [id number] [place] [address] 39377- 4897 07 Oct, 2016 [facility] [id number] [place] [address] 62756- 1310 Oct, [facility] [address] [place] [address] Oct, Opioid use disorder, severe, in early remission F11.21 [facility] [id number] [place] [address] 67911- 9575 Sep, Opioid use disorder, severe, in early remission F11.21 [facility] [address] [place] [address] Sep, Opioid use disorder, severe, in early remission F11.[address] 29192- 8889 Sep, Opioid use disorder, severe, 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 ; 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 and Encounter for therapeutic drug level monitoring Z51.[address] 61552- 9158 Sep, [facility] [address] [place] [id number] [place] [address] 26137- 0845 Sep, [facility] [address] [place] [address] 03730- 7300 Sep, Opioid use disorder, severe, 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 ; 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 ; Chronic kidney disease, stage 3 N18.3 ; Essential hypertension I10 and Irritable bowel syndrome with constipation K58.1 [facility] [address] [place] [address] Sep, Opioid use disorder, severe, in early remission F11.21 [facility] [address] [place] [address] Sep, Opioid use disorder, severe, in early remission F11.21 [facility] [address] [place] [id number] [place] [address] 65977- 0458 Sep, Opioid use disorder, moderate, dependence F11.[address] 28864- 0527 Sep, Opioid use disorder, moderate, dependence F11.20 [facility] [address] [place] [address] Sep, Opioid use disorder, severe, in early remission F11.21 [facility] [id number] [place] [address] 76437- 2330 Sep, Opioid use disorder, severe, in early remission F11.21 [facility] [address] [place] [address] Aug, Opioid use disorder, severe, in early remission F11.21 [facility] [id number] [place] [address] 67995- 7657 Aug, Opioid use disorder, moderate, dependence F11.20 [facility] [address] [address]39 [address]0449 Aug, Bug bite without infection, initial encounter W57.XXXA [facility] [address] [place] [address] 20530- 9605 Aug, Opioid use disorder, moderate, dependence F11.20 [facility] [address] [place] [address] Aug, [facility] [address] [place] [id number] [place] [address] 63930- 2999 Aug, Opioid use disorder, severe, 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 ; 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 ; Encounter for therapeutic drug level monitoring Z51.81 and 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 [facility] [address] [place] [address] Aug, [facility] [address] [place] [id number] [place] [address] 11643- 0459 Aug, Opioid use disorder, moderate, dependence F11.20 ; Other penitentiary (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 Z79.899 and Encounter for therapeutic drug level monitoring Z51.81 [facility] [address] [place] [id number] [place] [address] 70297- 0953 Aug, [facility] [address] [place] [address] [place] [address] 67377- 3315 Aug, Non-intractable vomiting with nausea, unspecified vomiting type R11.2 [facility] [address] 12180- 4428 Aug, Opioid use disorder, moderate, dependence F11.20 and Non- intractable vomiting with nausea, unspecified vomiting type R11.2 [facility] [address] 79828- 3070 Aug, [facility] [address] 28347- 7806 Aug, Opioid use disorder, moderate, dependence F11.20 [facility] [id number] [place] [address] 08183- 0224 Aug, [facility] [address] 56082- 6243 Jul, 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 and Opioid use disorder, moderate, dependence F11.20 [facility] [address] [place] [address] Jul, [facility] [address] 05471- 4378 Jul, [facility] [id number] [place] [address] 90598- 6546 Jul, [facility] [id number] [place] [address] 62888- 8796 Jul, Addiction to drug F19.20 and Chronic kidney disease, stage 3 N18.3 [facility] [address] [place] [address] Jul, Counseling on substance use and abuse Z71.89 [facility] [id number] [place] [address] 96857- 0770 Jul, Chronic kidney disease, stage 3 N18.3 [facility] [address] 74048- 3181 Jul, 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 ; Diarrhea, unspecified type R19.7 and Essential hypertension I10 [facility] [id number] [place] [address]- 2672 Jul, [facility] [id number] [place] [id number]- 8889 Jun, [place] [address] [address] Jun, [facility] [address] [address]- [address] Apr, 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 [place] [address] [address]- [address] Apr, Sore throat and laryngitis J06.0 and Non-intractable vomiting with nausea, unspecified vomiting type R11.2 [place] [address] [address]- [address] Apr, [facility] [id number] [place] [address]- 7069 Mar, [place] [id number] [place] [address]- 0824 Jan, [place] [id number] [place] [address]257- 5661 Jan, [place] [id number] [place] [address]17- 9814 Jan, [facility] [id number] [place] [address] 42447- 4624 December, 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 ; Gastroparesis K31.84 ; Mixed hyperlipidemia E78.2 ; Chronic kidney disease, stage 3 N18.3 ; Dysthymia F34.1 and Acute bilateral low back pain without sciatica M54.5 [address] [address] [address]- 4215 December, [facility] [id number] [place] [address] 25066- 0654 December, [facility] [address] 90704- 2238 Aug, Depression F32.9 and Gastroparesis K31.84 [facility] [address] 33584- 0686 Aug, Gastroparesis K31.84 [facility] [address] 72617- 1467 Jul, Recurrent UTI N39.0 ; Chronic kidney disease, stage 3 N18.3 and 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 [facility] [address] 17873- 3895 Jul, [facility] [address] [id number] Jul, Dental examination Z01.20 and Dental caries K02.9 [facility] [address] 23463- 8284 Jul, [facility] [id number] [place] [address] 22537 -7156 Jul, Dysuria R30.0 ; Urinary tract infection N39.0 and Nausea R11.0 [facility] [id number] [place] [address] 29194- 6238 Jun, Dysuria R30.0 [facility] [address] 47338- 9276 Jun, Dysuria R30.0 [facility] [address] 31178- 5261 Jun, Dysuria R30.0 [facility] [id number] [place] [address] 19163- 0280 Jun, [place] [id number] [address] 75[address] Jun, Acute cystitis with hematuria N30.01 [id number] [place] [address] 48939- 0999 May, [address] [id number] [place] [address] 02254- 9750 Apr, Diabetes mellitus without mention of complication, type I [ juvenile type], not stated as uncontrolled 250.01 ; Gastroparesis due to DM 250.60 ; Contraception management V25.9 and Renal insufficiency 593.9 [id number] [place] [address] 76258- 3715 Apr, [address] [id number] [place] [address] 60358- 8287 Apr, [address] [id number] [place] [address] 22111- 9429 Mar, [address] [id number] [place] [address] 01333- 0341 Mar, Hyperlipidemia 272.4 and Hypertensive heart and chronic kidney disease, benign, without heart failure and with chronic kidney disease stage I through stage IV, or unspecified 404.10 [id number] [place] [address] 05725- 1852 Mar, Hyperlipidemia 272.4 ; Hyponatremia 276.1 ; 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 ; Hypertensive heart and chronic kidney disease, benign, without heart failure and with chronic kidney disease stage I through stage IV, or unspecified 404.10 ; Proteinuria 791.0 and Chronic kidney disease (CKD), stage III (moderate) 585.3 [id number] [place] [address] 21466- 4201 Mar, [place] [id number] [place] [address] 16383- 9076 Mar, Elevated blood sugar level 790.29 [address] [id number] [place] [address] [place] [address]- 8[address] 07 Mar, 2015 Low grade squamous intraepithelial lesion (LGSIL) on cervical Pap smear 795.03 [facility] [address], [place] [address]- 8457 Mar, Amenorrhea 626.0 [facility] [id number], [place] [address]- 0392 15 Jan, 2015 Amenorrhea 626.0 ; Routine gynecological examination V72.31 and Screen for STD (sexually transmitted disease) V74.5 [facility] [address] 7132 11 Jan, 2015 Amenorrhea 626.0 [facility] [id number] 4356 08 Jan, 2015 Routine gynecological examination V72.31 ; Screen for STD ( sexually transmitted disease) V74.5 ; Pap test, as part of routine gynecological examination V76.2 ; Breast cancer screening V76.10 and Amenorrhea 626.0 [facility] [address], [place] [address]- 0519 December, [facility] [address] 9447 Dec, [facility] [address] 5510 Dec, [facility] [address], [place] [address]- 9950 Oct, [facility] [address], [place] [address]- 1081 Oct, [facility] [address], [place] [address]- 0244 Oct, [facility] [address], [place] [address] 2546 Oct, [facility] [address], [place] [address]- 0144 Oct, [facility] [place] [facility] [address] [id number] [place] [address]- 0838 Oct, [facility] [place] [facility] [address] [id number] [place] [address]- 2727 Oct, [facility] [place] [facility] [address] [id number] [place] [address]- 3401 Oct, [facility] [place] [facility] [address] [id number] [place] [address]- 8415 Oct, [facility] [place] [facility] [address] [id number] [place] [address]- 3424 Oct, [facility] [place] [facility] [address] [id number] [place] [address]- 4737 Oct, [facility] [place] [facility] [address] [id number] [place] [address]- 4369 Sep, [facility] [place] [facility] [address] [id number] [place] [address]- 7796 Sep, [facility] [place] [facility] [address] [id number] [place] [address]- 8749 Sep, [facility] [place] [facility] [address] [id number] [place] [address]- 5389 Sep, [facility] [place] [facility] [address] [id number] [place] [address]- 1079 Sep, [facility] [place] [facility] [address] [id number], [place] [address]- 7279 Sep, [facility] [place] [facility] [address] [id number] [place] [address]- 4557 Sep, [facility] [place] [facility] [address] [id number] [place] [address]- 3796 Sep, [facility] [place] [facility] [address] [id number] [place] [address]- 3775 Sep, [facility] [place] [facility] [address] [id number] [place] [address]- 9248 15 Sep, 2014 [facility] [address] [id number] [place] [address]- 2177 Sep, [facility] [address] [id number] [place] [address]- 3173 Sep, [facility] [address] [id number] [place] [address]- 4374 Sep, [facility] [address] [id number] [place] [address]- 8703 Sep, [facility] [address] [id number] [place] [address]- 0489 Sep, [facility] [address] [id number] [place] [address]- 1778 Sep, [facility] [address] [id number] [place] [address]- 4707 Sep, [facility] [address] [id number] [place] [address]- 0187 Sep, [facility] [address] [id number] [place] [address]- 6622 Sep, [facility] [address] [id number] [place] [address]- 1699 Sep, [facility] [address] [id number] [place] [address]- 1187 Aug, [facility] [address] [id number] [place] [address]- 3233 Aug, [facility] [place] [facility] [address] [id number] [place] [address]- 3230 Aug, [facility] [place] [facility] [address] [id number] [place] [address]- 3636 Aug, [facility] [address] [id number] [place] [address]- 4565 Aug, [facility] [place] [facility] [address] [id number] [place] 7213 Aug, [facility] [place] [facility] [address] [id number] [place] [address]- 2162 Aug, [facility] [place] [facility] [address] [id number] [place] [address]- 9907 Aug, [facility] [place] [facility] [address] [id number] [place] [address]- 8220 Aug, [facility] [place] [facility] [address] [id number] [place] 4490 Aug, [facility] [place] [facility] [address] [id number] [place] [address]- 0571 Aug, [facility] [place] [facility] [address] [id number] [place] [address]- 6229 Aug, [facility] [place] [facility] [address] [id number] [place] [address]- 5837 Jul, [facility] [place] [facility] [address] [id number] [place] [address]- 3832 Jul, [facility] [place] [facility] [address] [id number] [place] [address]- 4679 Jul, [facility] [place] [facility] [address] [id number] [place] [address]- 8663 Jul, [facility] [place] [facility] [address] [id number] [address]- 5739 Jul, [facility] [place] [facility] [address] [id number] [place] [address]- 5608 Jul, [facility] [place] [facility] [address] [id number] [place] [address]- 7446 Jul, [facility] [place] [facility] [address] [id number] [place] 9328 Jul, [facility] [place] [facility] [address] [id number], [place] [address]- 4773 Jul, [facility] [place] [facility] [address] [id number] [place] [address]- 6024 Jul, [facility] [place] [facility] [address] [id number] [place] [address]- 6568 Jun, [facility] [place] [facility] [address] [id number] [place] [address]- 7179 Jun, [facility] [place] [facility] [address] [id number] [place] [address]- 3854 Jun, [facility] [place] [facility] [address] [id number] [place] [address]- 5454 Jun, [facility] [place] [facility] [address] [id number] [place] [address]- 5748 Jun, [facility] [place] [facility] [address] [id number] [place] [address]- 6080 Jun, [facility] [place] [facility] [address] [id number] [place] [address]- 9368 Jun, [facility] [place] [facility] [address] [id number] [place] [address]- 2358 15 Jun, 2014 [facility] [place] [facility] [address] [id number] [place] [address]- 7429 22 May, 2014 [facility] [place] [facility] [address] [id number] [place] [address]- 3354 22 May, 2014 [facility] [place] [facility] [address] [id number], [place] [address]- 1858 18 May, 2014 [facility] [place] [facility] [address] [id number] [place] [address]- 2567 18 May, 2014 [facility] [place] [facility] [address] [id number] [place] [address]- 8289 09 May, 2013 [facility] [place] [facility] [address] [id number] [place] [address]- 3308 08 Sep, 2013 [facility] [place] [facility] [address] [id number] [place] [address]- 0011 May, [facility] [place] [facility] [address] [id number] [place] [address]- 0911 May, [facility] [place] [facility] [address] [id number] [place] [address]- 3181 Apr, [facility] [place] [facility] [address] [id number] [place] [address]- 4607 Apr, [facility] [place] [facility] [address] [id number] [place] [address]- 6880 Apr, [facility] [place] [facility] [address] [id number] [place] [address]- 2815 Apr, [facility] [place] [facility] [address] [id number] [place] [address]- 4644 Mar, [facility] [place] [facility] [address] [id number] [place] [address]- 4586 Mar, [facility] [place] [facility] [address] [id number] [place] [address]- 6492 Mar, [facility] [place] [facility] [address] [id number] [place] [address]- 2258 Mar, [facility] [place] [facility] [address] [id number] [place] 5272 Mar, [facility] [place] [facility] [address] [id number] [place] [address]- 9467 Mar, [facility] [place] [facility] [address] [id number] [place] [address]- 1942 Jan, [facility] [place] [facility] [address] [id number] [place] [address]- 2258 Jan, [facility] [place] [facility] [address] [id number] [place] [address]- 6070 Jan, [facility] [place] [facility] [address] [id number] [place] [address]- 4223 Jan, [facility] [place] [facility] [address] [id number] [place] [address]- 6210 Jan, [facility] [place] [facility] [address] [id number] [place] [address]- 7347 Jan, [facility] [place] [facility] [address] [id number] [place] [address]- 5887 Jan, [facility] [place] [facility] [address] [id number] [place] [address]- 2190 Jan, [facility] [place] [facility] [address] [id number] [place] [address]- 7434 Jan, [facility] [place] [facility] [address] [id number] [place] [address]- 0736 Jan, [facility] [place] [facility] [address] [id number] [place] [address]- 9133 Jan, [facility] [place] [facility] [address] [id number] [place] [address]- 6902 Jan, [facility] [place] [facility] [address] [id number] [place] [address]- 6383 December, [facility] [place] [facility] [address] [id number] [place] [address]- 0130 December, [facility] [place] [facility] [address] [id number] [place] [address]- 5663 December, [facility] [place] [facility] [address] [id number] [place] [address]- 8849 December, [facility] [place] [facility] [address] [id number] [place] [address]- 9112 Dec, [facility] [place] [facility] [address] [id number] [place] [address]- 3379 Dec, [facility] [place] [facility] [address] [id number] [place] [address]- 6269 Dec, [facility] [place] [facility] [address] [id number] [place] [address]- 6392 Dec, [facility] [place] [facility] [address] [id number] [place] [address]- 2338 Dec, [facility] [place] [facility] [address] [id number] [place] [address]- 7807 Dec, [facility] [place] [facility] [address] [id number] [place] [address]- 8356 Dec, [facility] [place] [facility] [address] [id number] [place] [address]- 2658 Dec, [facility] [place] [facility] [address] [id number] [place] [address]- 3840 Dec, [facility] [place] [facility] [address] [id number] [place] [address]- 9425 Dec, [facility] [place] [facility] [address] [id number] [place] [address]- 8607 Dec, [facility] [place] [facility] [address] [id number] [place] [address]- 1921 Dec, [facility] [place] [facility] [address] [id number] [place] [address]- 4055 Dec, [facility] [place] [facility] [address] [id number] [place] [address]- 7392 Dec, [facility] [place] [facility] [address] [id number] [place] [address]- 7003 Oct, [facility] [place] [facility] [address] [id number] [place] [address]- 3440 31 Oct, 2013 [facility] [place] [facility] [address] [id number] [place] [address]- 7175 Oct, [facility] [place] [facility] [address] [id number] [place] [address]- 6245 29 Oct, 2013 [facility] [place] [facility] [address] [id number] [place] [address]- 0653 28 Oct, 2013 [facility] [place] [facility] [address] [id number] [place] [address]- 7779 Oct, [facility] [place] [facility] [address] [id number] [place] [id number] Oct, [facility] [place] [facility] [address] [id number] [place] [address]- 9769 Oct, [facility] [place] [facility] [address] [id number] [place] [address]- 7738 Oct, [facility] [place] [facility] [address] [id number] [place] [address]- 0405 Oct, [facility] [place] [facility] [address] [id number] [place] [address]- 2486 Sep, [facility] [place] [facility] [address] [id number] [place] [address]- 1814 Sep, [facility] [place] [facility] [address] [id number] [place] [address]- 8307 Sep, [facility] [place] [facility] [address] [id number] [place] [address]- 5422 Sep, [facility] [place] [facility] [address] [id number] [place] [address]- 5081 Sep, [facility] [place] [facility] [address] [id number] [place] [address]043 Sep, [facility] [place] [facility] [address] [id number] [place] [address]- 0482 Aug, [facility] [place] [facility] [address] [id number] [place] [address]- 4475 18 Aug, 2013 [facility] [place] [facility] [address] [id number] [place] [address]- 4919 Jul, [facility] [place] [facility] [address] [id number] [place] [address]- 0006 Jul, [facility] [place] [facility] [address] [id number] [id number] 9557 Jul, [facility] [address] [facility] [id number] [place] 7473 Jul, [facility] [address] [facility] [id number] [place] [address]- 4336 Jul, IMMUNIZATIONS No Known Immunizations SOCIAL HISTORY [...]
--- OUTSIDE RECORDS SUMMARY | 2018-08-30 20:30 | XMS REPORT ---
Author Author NOEMY MORGAN Organization [facility] Address [address] 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 Active 33807763 Problem Chronic kidney disease, stage 3 N18.3 Active 419452738 Problem CHI I (cervical intraepithelial neoplasia I) N87.0 Active 873954407 Problem Mild episode of recurrent major depressive disorder F33.0 Active 657769877 Problem Addiction to drug F19.20 Active 044812935 Problem Essential hypertension I10 Active 17452828 Problem Opioid use disorder, severe, in sustained remission F11.21 Active 90076072 Problem Irritable bowel syndrome with constipation K58.1 Active 420838388 ALLERGIES Substance Reaction Event Type Date Status Sulfamethoxazole-Trimethoprim rash Drug Allergy Mar, Active Penicillin V Potassium rash Drug Allergy Mar, Active Cipro nausea and vomiting Drug Allergy Mar, Active ENCOUNTERS Encounter Location Date Diagnosis [facility] [address] [facility] [id number] [address] May, [facility] [address] [place] [address] May, Opioid use disorder, severe, in sustained remission F11.21 [facility] [address] [facility] [id number], [place] [address] Apr, [facility] [address] [facility] [id number], [place] [address] Apr, [facility] [address] [address] Apr, [facility] [id number] [place] [address] 51745- 1772 Apr, Opioid use disorder, severe, in early remission F11.21 [facility] [id number] [place] [address] 45501 [address]7110 Apr, Bacterial conjunctivitis of left eye H10.9 [facility] [id number] [place] [address] 95470- 7913 Apr, [facility] [id number] [place] [address] 45672- 6876 Apr, [facility] [id number] [place] [address] 34589- 5315 Mar, Essential hypertension I10 and Irritable bowel syndrome with constipation K58.1 [facility] [id number] [place] [address] 44014- 3416 Mar, [facility] [id number] [place] [address] 94329- 3783 Mar, Chronic kidney disease, stage 3 N18.3 ; 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 ; Opioid use disorder, severe, in sustained remission F11.21 and Mixed hyperlipidemia E78.2 [facility] [id number] [place] [address] 64479- 8628 Mar, Mixed hyperlipidemia E78.2 [facility] [id number] [place] [address] 56380- 2627 Mar, Opioid use disorder, severe, in early remission F11.21 [facility] [id number] [place] [address] 57930- 2600 Mar, [facility] [address] [place] [address] Mar, Opioid use disorder, severe, in sustained remission F11.21 [facility] [address] [place] [address] Jan, Opioid use disorder, severe, in early remission F11.21 [facility] [id number] [place] [address] 58697- 9306 December, Opioid use disorder, severe, in early remission F11.21 [facility] [address] [place] [address] December, Opioid use disorder, severe, in sustained remission F11.21 [facility] [id number] [place] [address] 37501- 9656 December, Opioid use disorder, severe, in sustained remission F11.21 and 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 [facility] [id number] [place] [address] 20896- 3781 December, Opioid use disorder, severe, in early remission F11.21 [facility] [address] [place] [address] Dec, Opioid use disorder, severe, in sustained remission F11.21 [facility] [id number] [place] [address] 33680- 3035 Dec, 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 ; Unprotected sexual intercourse Z72.51 ; Pain of left thumb M79.645 ; Mixed hyperlipidemia E78.2 ; Gastroparesis K31.84 ; Essential hypertension I10 and Irritable bowel syndrome with constipation K58.1 [facility] [id number] [place] [address] 11526- 3775 Dec, Opioid use disorder, severe, in early remission F11.21 [facility] [id number] [place] [address] 18720- 5236 Oct, [facility] [id number] [place] [address] 52528- 3379 Oct, Opioid use disorder, severe, in early remission F11.21 [facility] [id number] [place] [address] 56076- 2087 Oct, [facility] [address], [place] [address] 5669 Oct, Opioid use disorder, severe, in early remission F11.21 [facility] [id number] [place] [address] 56776- 8409 Oct, [facility] [id number] [place] [address] 96979- 5296 Oct, [facility] [address] [place] [address] Oct, Opioid use disorder, severe, in sustained remission F11.21 [facility] [id number] [place] [address] 54965- 6194 Sep, [facility] [id number] [place] [address] 14400- 2231 Sep, [facility] [id number] [place] [address] 34449- 8953 Sep, Opioid use disorder, severe, in early remission F11.21 [facility] [id number] [place] [address] 75593- 1024 Aug, Opioid use disorder, severe, in early remission F11.21 [facility] [id number] [place] [address] 49151- 8432 Jul, [facility] [id number] [place] [address] 90972- 8457 Jul, Chronic kidney disease, stage 3 N18.3 ; Dysthymia F34.1 and Opioid use disorder, severe, in sustained remission F11.21 [facility] [address] [place] [address] Jul, Opioid use disorder, severe, in sustained remission F11.21 [facility] [id number] [place] [address] 66674- 1470 Jul, Long-term use of high-risk medication Z79.899 and Chronic kidney disease, stage 3 N18.3 [facility] [id number] [place] [address] 81869- 5508 Jul, Opioid use disorder, severe, in early remission F11.21 [facility] [id number] [place] [address] 02366- 6839 Jul, [facility] [id number] [place] [address] 32951- 3048 Jun, [facility] [address] 45565- 1915 Jun, [facility] [id number] [place] [address] 00009- 6274 Jun, Opioid use disorder, moderate, dependence F11.20 and Opioid use disorder, severe, in early remission F11.21 [facility] [id number] [place] [address] 15932- 1057 Jun, [facility] [id number] [place] [address] 29075- 9567 Jun, Long-term use of high-risk medication Z79.899 [facility] [id number] [place] [address] 99931- 7599 Jun, CHI I (cervical intraepithelial neoplasia I) N87.0 [facility] [id number] [place] [address] 48408- 5022 May, Opioid use disorder, severe, in early remission F11.21 [facility] [id number] [place] [address] 74507- 3769 18 May, 2017 Chronic kidney disease, stage 3 N18.3 [facility] [id number] [place] [address] 13974- 9030 14 May, 2017 Chronic kidney disease, stage 3 N18.3 [facility] [address] [place] [address] 05 May, 2017 Opioid use disorder, severe, in sustained remission F11.21 [facility] [id number] [place] [address] 19722- 2915 Apr, LGSIL on Pap smear of cervix R87.612 [facility] [address] [place] [address] Apr, [facility] [id number] [place] [address] 46667- 6450 Apr, Opioid use disorder, severe, in early remission F11.21 [facility] [id number] [place] [address] 12619- 7586 Apr, Opioid use disorder, severe, in early remission F11.21 [facility] [id number] [place] [address] 52641- 2135 Apr, Opioid use disorder, severe, in early remission F11.21 [facility] [id number] [place] [address] 25796- 7845 Apr, Opioid use disorder, severe, in early remission F11.21 [facility] [id number] [place] [address] 12671- 5478 Apr, 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 [facility] [address] 53750- 1299 Apr, Opioid use disorder, severe, in early remission F11.21 [facility] [address] [place] [address] Apr, Opioid use disorder, severe, in sustained remission F11.21 [facility] [id number] [place] [address] 95166- 7911 Apr, Opioid use disorder, severe, in early remission F11.21 [facility] [id number] [place] [address] 21637- 5680 Apr, Mild episode of recurrent major depressive disorder F33.0 and Right acute serous otitis media, recurrence not specified H65.01 [facility] [id number] [place] [address] 54945- 8103 Mar, [facility] [address] [place] [address]- 4924 Mar, Opioid use disorder, severe, in early remission F11.21 [facility] [id number] [place] [address] 09256- 7950 Mar, [facility] [address] [place] [address] Mar, Opioid use disorder, severe, in sustained remission F11.21 [facility] [address] [place] [address] Mar, Opioid use disorder, severe, in sustained remission F11.21 [facility] [id number] [place] [address] 71921- 0269 Mar, Opioid use disorder, severe, in early remission F11.21 [facility] [id number] [place] [address] 74299- 1732 Jan, Opioid use disorder, severe, in early remission F11.21 [facility] [address] [place] [address] Jan, Opioid use disorder, severe, in sustained remission F11.21 [facility] [address] [place] [address] Jan, Opioid use disorder, severe, in sustained remission F11.21 [facility] [id number] [place] [address] 28341- 2583 Jan, Opioid use disorder, severe, in early remission F11.21 [facility] [address] [place] [address] Jan, Opioid use disorder, severe, in sustained remission F11.21 [facility] [address], [place] [address] 7620 December, Opioid use disorder, severe, in early remission F11.21 [facility] [address] [place] [address] December, Opioid use disorder, severe, in sustained remission F11.21 [facility] [address], [place] [address] 4777 December, Routine gynecological examination Z01.419 and Chronic kidney disease, stage 3 N18.3 [facility] [id number] [place] [address] 22059- 9479 December, Chronic kidney disease, stage 3 N18.3 ; 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 ; Gastroparesis K31.84 ; Essential hypertension I10 and Irritable bowel syndrome with constipation K58.1 [facility] [address] [place] [address] December, Opioid use disorder, severe, in sustained remission F11.21 [facility] [id number] [place] [address] 74518- 2020 December, Opioid use disorder, severe, in early remission F11.21 [facility] [address] [place] [address] December, Opioid use disorder, severe, in sustained remission F11.21 [place] [id number] [place] [address] 77335- 7607 December, Encounter for therapeutic drug level monitoring Z51.81 [facility] [address] [place] [address] December, Opioid use disorder, severe, in sustained remission F11.21 [facility] [address] [place] [address] Dec, Opioid use disorder, severe, in sustained remission F11.21 [facility] [address] [place] [id number] [place] [address] 69712- 3178 Dec, Opioid use disorder, severe, in early remission F11.21 [facility] [address] [place] [id number] [place] [address] 89922- 3865 Dec, [facility] [address] [place] [address] Dec, Opioid use disorder, severe, in sustained remission F11.21 [facility] [address] [place] [id number] [place] [address] 97857- 5809 Dec, Opioid use disorder, severe, in early remission F11.21 [facility] [address] [place] [address] Dec, Opioid use disorder, severe, in sustained remission F11.21 [facility] [id number] [place] [address] 74932- 3139 03 Dec, 2016 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 [facility] [id number] [place] [address] 37434- 9049 03 Dec, 2016 Opioid use disorder, severe, in sustained remission F11.21 ; Encounter for therapeutic drug level monitoring Z51.81 and Other fpc ( 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 Z79.899 [facility] [address] [place] [address] 31 Oct, 2016 Opioid use disorder, severe, in sustained remission F11.21 [facility] [id number] [place] [address] 74394- 4177 23 Oct, 2016 Opioid use disorder, severe, in early remission F11.21 [facility] [id number] [place] [address] 42463- 9323 15 Oct, 2016 [facility] [address] [place] [address] 15 Oct, 2016 Opioid use disorder, severe, in sustained remission F11.21 [facility] [id number] [place] [address] 21938- 7743 15 Oct, 2016 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 [facility] [id number] [place] [address] 64245- 8712 14 Oct, 2016 Routine gynecological examination Z01.419 [facility] [id number] [place] [address] 49334- 2344 07 Oct, 2016 Opioid use disorder, severe, in early remission F11.21 [facility] [id number] [place] [address] 01195- 6744 06 Oct, 2016 Opioid use disorder, severe, in early remission F11.21 [facility] [id number] [place] [address] 87108- 2950 06 Oct, 2016 Opioid use disorder, severe, in early remission F11.21 [facility] [address] [place] [address] Oct, Opioid use disorder, severe, in sustained remission F11.21 [facility] [id number] [place] [address] 41860- 1342 24 Oct, 2016 Opioid use disorder, severe, in early remission F11.21 [facility] [id number] [place] [address] 51635- 7331 Oct, Opioid use disorder, severe, in early remission F11.21 [facility] [address] [place] [address] Oct, Opioid use disorder, severe, in sustained remission F11.21 [facility] [address] 02645- 6013 20 Oct, 2016 Opioid use disorder, severe, in sustained remission F11.21 ; Encounter for therapeutic drug level monitoring Z51.81 and Other fpc ( 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 Z79.899 [facility] [address] 09205- 8939 16 Oct, 2016 [facility] [address] [place] [address] 14 Oct, 2016 Opioid use disorder, severe, in early remission F11.21 [facility] [address] [place] [address] 10 Oct, 2016 Opioid use disorder, severe, in early remission F11.21 [facility] [id number] [place] [address] 37097- 1304 09 Oct, 2016 Opioid use disorder, severe, in early remission F11.21 [facility] [id number] [place] [address] 07259- 2725 08 Oct, 2016 [facility] [id number] [place] [address] 86490- 8692 Oct, [facility] [id number] [place] [address] 97683- 1236 Oct, [facility] [address] [place] [address] Oct, Opioid use disorder, severe, in early remission F11.21 [facility] [id number] [place] [address] 95373- 6532 Sep, Opioid use disorder, severe, in early remission F11.21 [facility] [address] [place] [address] Sep, Opioid use disorder, severe, in early remission F11.21 [facility] [address] [place] [address] 58973- 9354 Sep, Opioid use disorder, severe, in early remission F11.21 ; Other emt intermediate (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 Z79.899 and Encounter for therapeutic drug level monitoring Z51.[address] 70138- 4421 Sep, [place] [id number] [place] [address] 31157- 3010 Sep, [facility] [address] [place] [address] 26251- 6551 Sep, Opioid use disorder, severe, 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 ; 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 ; Chronic kidney disease, stage 3 N18.3 ; Essential hypertension I10 and Irritable bowel syndrome with constipation K58.1 [facility] [address] [place] [address] Sep, Opioid use disorder, severe, in early remission F11.21 [facility] [address] [place] [address] Sep, Opioid use disorder, severe, in early remission F11.21 [facility] [address] [place] [id number] [place] [address] 82881- 3259 Sep, Opioid use disorder, moderate, dependence F11.20 [facility] [address] [place] [id number] [place] [address] 92495- 5491 Sep, Opioid use disorder, moderate, dependence F11.20 [facility] [address] [place] [address] Sep, Opioid use disorder, severe, in early remission F11.21 [facility] [id number] [place] [address] 35680- 1736 Sep, Opioid use disorder, severe, in early remission F11.21 [facility] [address] [place] [address] Aug, Opioid use disorder, severe, in early remission F11.21 [facility] [address] 977931- 5186 Aug, Opioid use disorder, moderate, dependence F11.20 [facility] [address] 99163 -7221 Aug, Bug bite without infection, initial encounter W57.XXXA [facility] [address] [place] [address] 53891- 8268 Aug, Opioid use disorder, moderate, dependence F11.20 [facility] [address] [place] [address] Aug, [facility] [address] 45808- 8825 Aug, Opioid use disorder, severe, in early remission F11.21 ; Other fpc (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 Z79.899 ; Encounter for therapeutic drug level monitoring Z51.81 and 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 [facility] [address] [place] [address] 15 Aug, 2016 [facility] [address] 40569- 7774 Aug, Opioid use disorder, moderate, dependence F11.20 ; Other emt intermediate (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 Z79.899 and Encounter for therapeutic drug level monitoring Z51.81 [place] [id number] [place] [address] 40583- 9784 13 Aug, 2016 [facility] [id number] [place] [address] 56971- 9194 09 Aug, 2016 Non-intractable vomiting with nausea, unspecified vomiting type R11.2 [facility] [address] [place] [address] 27616- 7049 09 Aug, 2016 Opioid use disorder, moderate, dependence F11.20 and Non- intractable vomiting with nausea, unspecified vomiting type R11.2 [facility] [id number] [place] [address] 40049- 2799 08 Aug, 2016 [facility] [address] 78388- 5489 Aug, Opioid use disorder, moderate, dependence F11.20 [facility] [id number] [place] [address] 22558- 3620 Aug, [facility] [id number] [place] [address] 40836- 6884 Jul, 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 and Opioid use disorder, moderate, dependence F11.20 [facility] [address] [place] [address] Jul, [facility] [id number] [place] [address] 93944- 4087 Jul, [facility] [id number] [place] [address] 80498- 4966 Jul, [facility] [id number] [place] [address] 95780- 0559 Jul, Addiction to drug F19.20 and Chronic kidney disease, stage 3 N18.3 [facility] [address] [place] [address] Jul, Counseling on substance use and abuse Z71.89 [facility] [id number] [place] [address] 61021- 7523 Jul, Chronic kidney disease, stage 3 N18.3 [facility] [id number] [place] [address] 57101- 1615 Jul, 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 ; Diarrhea, unspecified type R19.7 and Essential hypertension I10 [facility] [address] [address]- 1283 Jul, [facility] [id number] [place] [address] 78035- 9841 Jun, [facility] [id number] [place] [address] 00438- 0965 Jun, [facility] [id number] [place] [address] 410413- 7431 Apr, 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 [facility] [id number] [place] [address] 385326- 4858 Apr, Sore throat and laryngitis J06.0 and Non-intractable vomiting with nausea, unspecified vomiting type R11.2 [facility] [id number] [place] [address] 15922- 9450 Apr, [facility] [id number] [place] [address] 63869- 0127 Mar, [facility] [id number] [place] [address] [id number]- [id number] Jan, [facility] [id number] [place] [address] 53361- [id number] Jan, [facility] [id number] [place] [address] 27623- 4515 Jan, [facility] [id number] [place] [address] [id number] December, 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 ; Gastroparesis K31.84 ; Mixed hyperlipidemia E78.2 ; Chronic kidney disease, stage 3 N18.3 ; Dysthymia F34.1 and Acute bilateral low back pain without sciatica M54.5 [facility] [id number] [address] December, [facility] [id number] [place] [address] 80209- 4060 December, [facility] [id number] [place] [address] 29019- 0453 Aug, Depression F32.9 and Gastroparesis K31.84 [facility] [id number] [place] [address] [id number]- 2613 Aug, Gastroparesis K31.84 [facility] [address] [address]- 9304 Jul, Recurrent UTI N39.0 ; Chronic kidney disease, stage 3 N18.3 and 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 [facility] [address] [address]- [address] Jul, [facility] [address] [id number] Jul, Dental examination Z01.20 and Dental caries K02.9 [facility] [address] [address]- [address] Jul, [facility] [address] [address] Jul, Dysuria R30.0 ; Urinary tract infection N39.0 and Nausea R11.0 [facility] [id number] [place] [address]23- 0712 Jun, Dysuria R30.0 [facility] [address] [address]- 3740 Jun, Dysuria R30.0 [facility] [address] [address]64- 9004 Jun, Dysuria R30.0 [facility] [address] 57454- 9615 Jun, [facility] [id number] [place] [address]15- 3788 14 Jun, 2015 Acute cystitis with hematuria N30.01 [id number] [place] [address] 56864- 5242 May, [place] [id number] [place] [address] 84941- 4095 Apr, Diabetes mellitus without mention of complication, type I [ juvenile type], not stated as uncontrolled 250.01 ; Gastroparesis due to DM 250.60 ; Contraception management V25.9 and Renal insufficiency 593.9 [place] [id number] [place] [address] 09544- 6770 Apr, [place] [id number] [place] [address] 27927- 7480 Apr, [address] [id number] [place] [address] 88392- 1697 Mar, [place] [id number] [place] [address] 66703- 8368 Mar, Hyperlipidemia 272.4 and Hypertensive heart and chronic kidney disease, benign, without heart failure and with chronic kidney disease stage I through stage IV, or unspecified 404.10 [id number] [place] [address] 30611- 2907 Mar, Hyperlipidemia 272.4 ; Hyponatremia 276.1 ; 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 ; Hypertensive heart and chronic kidney disease, benign, without heart failure and with chronic kidney disease stage I through stage IV, or unspecified 404.10 ; Proteinuria 791.0 and Chronic kidney disease (CKD), stage III (moderate) 585.3 [address] [place] [address] 53872- 9137 Mar, [address] [id number] [place] [address] 61187- 0901 Mar, Elevated blood sugar level 790.29 [place] [id number] [place] [address] 90173- 8636 Mar, Low grade squamous intraepithelial lesion (LGSIL) on cervical Pap smear 795.03 [place] [address] [facility] [id number] [address] 2546 Mar, Amenorrhea 626.0 [facility] [address] [address] 26[address] Jan, Amenorrhea 626.0 ; Routine gynecological examination V72.31 and Screen for STD (sexually transmitted disease) V74.5 [facility] [address] [address]146 11 Jan, 2015 Amenorrhea 626.0 [facility] [id number] [address] 0425 08 Jan, 2015 Routine gynecological examination V72.31 ; Screen for STD ( sexually transmitted disease) V74.5 ; Pap test, as part of routine gynecological examination V76.2 ; Breast cancer screening V76.10 and Amenorrhea 626.0 [facility] [address] [address] 1736 December, [facility] [address], [place] [address]- 2324 Dec, [facility] [address] [address]- 1651 Dec, [facility] [address], [place] [address]- 2196 Oct, [facility] [address], [place] [address]- 8106 Oct, [facility] [id number] [address]- 2546 Oct, [facility] [address], [place] [address]- 2546 Oct, [facility] [address], [place] [address]- 2546 Oct, [facility] [address] [id number], [place] [address]- 2546 Oct, [facility] [place] [facility] [address] [id number] [place] [address]- 0373 Oct, [facility] [place] [facility] [address] [id number] [place] [address]- 4982 Oct, [facility] [place] [facility] [address] [id number] [place] [address]- 2861 Oct, [facility] [place] [facility] [address] [id number] [place] [address]- 0613 Oct, [facility] [place] [facility] [address] [id number] [place] [address]- 5320 Oct, [facility] [place] [facility] [address] [id number] [place] [address]- 9024 Sep, [facility] [place] [facility] [address] [id number] [place] [address]- 6451 Sep, [facility] [place] [facility] [address] [id number] [place] [address]- 0721 Sep, [facility] [place] [facility] [address] [id number] [place] [address]- 1497 Sep, [facility] [place] [facility] [address] [id number] [place] [address]- 0536 Sep, [facility] [place] [facility] [address] [id number] [place] [address]- 8284 Sep, [facility] [place] [facility] [address] [id number], [place] [address]- 6650 Sep, [facility] [place] [facility] [address] [id number] [place] [address]- 9099 Sep, [facility] [place] [facility] [address] [id number] [place] [address]- 5466 Sep, [facility] [place] [facility] [address] [id number] [place] [address]- 6631 Sep, [facility] [place] [facility] [address] [id number] [place] [address]- 3993 Sep, [facility] [address] [id number] [place] [address]- 1847 Sep, [facility] [place] [facility] [address] [id number] [place] [address]- 0020 Sep, [facility] [place] [facility] [address] [id number] [place] [address]- 4210 Sep, [facility] [place] [facility] [address] [id number] [place] [address]- 9845 Sep, [facility] [place] [facility] [address] [id number] [place] [address]- 6195 Sep, [facility] [place] [facility] [address] [id number] [place] [address]- 6344 Sep, [facility] [address] [id number] [place] [address]- 5165 Sep, [facility] [place] [facility] [address] [id number] [place] [address]- 5502 Sep, [facility] [place] [facility] [address] [id number] [place] [address]- 5051 Sep, [facility] [place] [facility] [address] [id number] [place] [address]- 5585 Aug, [facility] [place] [facility] [address] [id number] [place] [address]- 3441 Aug, [facility] [place] [facility] [address] [id number], [place] [address]- [address] Aug, [facility] [place] [facility] [address] [id number] [place] [address]- 8798 Aug, [facility] [place] [facility] [address] [id number] [place] [address]- 2222 Aug, [facility] [place] [facility] [address] [id number] [place] [address]- 4111 Aug, [facility] [place] [facility] [address] [id number] [place] [address]- 3711 04 Aug, 2014 [facility] [place] [facility] [address] [id number] [place] [address] Aug, [facility] [place] [facility] [address] [id number] [place] [address] Aug, [facility] [place] [facility] [address] [id number] [place] [address]- 6175 Aug, [facility] [place] [facility] [address] [id number] [place] [address]- 3012 Aug, [facility] [place] [facility] [address] [id number] [place] [address]- 6422 Aug, [facility] [place] [facility] [address] [id number] [place] [address]- 2230 Jul, [facility] [place] [facility] [address] [id number] [place] [address]- 6928 Jul, [facility] [place] [facility] [address] [id number] [place] [address]- 8056 Jul, [facility] [place] [facility] [address] [id number] [place] [address]- 7735 Jul, [facility] [place] [facility] [address] [id number] [place] [address]- 9804 Jul, [facility] [place] [facility] [address] [id number] [place] [address]- 7545 17 Jul, 2014 [facility] [place] [facility] [address] [id number] [place] [address]- 6518 Jul, [facility] [place] [facility] [address] [id number] [place] [address]- 6843 Jul, [facility] [place] [facility] [address] [id number] [place] 04 Jul, 2014 [facility] [place] [facility] [address] [id number] [place] [address]- 2820 Jul, [facility] [place] [facility] [address] [id number] [place] [address]- 4744 Jun, [facility] [place] [facility] [address] [id number] [place] [address]- 2027 Jun, [facility] [place] [facility] [address] [id number] [place]103 Jun, [facility] [place] [facility] [address] [id number] [place] 9672 Jun, [facility] [place] [facility] [address] [id number] [place] [address]- 2108 Jun, [facility] [place] [facility] [address] [id number] [place] [address]- 0070 Jun, [facility] [place] [facility] [address] [id number] [place] [address]- 9976 15 Jun, 2014 [facility] [place] [facility] [address] [id number], [place] [address]- 8029 15 Jun, 2014 [facility] [place] [facility] [address] [id number] [place] [address]- 2239 22 May, 2014 [facility] [place] [facility] [address] [id number] [place] [address]- 0455 22 May, 2013 [facility] [place] [facility] [address] [id number], [place] [address]- 6493 18 May, 2013 [facility] [place] [facility] [address] [id number], [place] [address]- 4760 18 May, 2013 [facility] [place] [facility] [address] [id number] [place] [address]- 8236 09 May, 2013 [facility] [place] [facility] [address] [id number], [place] [address]- 9395 08 May, 2013 [facility] [place] [facility] [address] [id number], [place] [address]- 2892 02 May, 2013 [facility] [place] [facility] [address] [id number] [place] [address]- 8659 May, [facility] [place] [facility] [address] [id number] [place] [address]- 2115 Apr, [facility] [place] [facility] [address] [id number] [place] [address]- 3224 Apr, [facility] [place] [facility] [address] [id number] [place] [address]- 6895 Apr, [facility] [place] [facility] [address] [id number] [place] [address]- 2258 Apr, [facility] [place] [facility] [address] [id number] [place] [address]- 9865 Mar, [facility] [place] [facility] [address] [id number] [place] [address]- 7643 Mar, [facility] [place] [facility] [address] [id number] [place] [address]- 6196 Mar, [facility] [place] [facility] [address] [id number] [place] [address]- 2677 Mar, [facility] [place] [facility] [address] [id number] [place] [address]- 3064 Mar, [facility] [place] [facility] [address] [id number] [place] [address]- 5477 Mar, [facility] [place] [facility] [address] [id number] [place] [address]- 9348 Jan, [facility] [place] [facility] [address] [id number] [place] [address]- 5188 Jan, [facility] [place] [facility] [address] [id number] [place] [address]- 9104 Jan, [facility] [place] [facility] [address] [id number] [place] [address]- 7548 Jan, [facility] [place] [facility] [address] [id number] [place] [address]- 3623 Jan, [facility] [place] [facility] [address] [id number] [place] [address]- 6453 Jan, [facility] [place] [facility] [address] [id number] [place] [address]- 3182 Jan, [facility] [place] [facility] [address] [id number] [place] [address]- 6014 Jan, [facility] [place] [facility] [address] [id number] [place] [address]- 2624 Jan, [facility] [place] [facility] [address] [id number] [place] [address]- 8950 Jan, [facility] [place] [facility] [address] [id number] [place] [address]- 3975 Jan, [facility] [place] [facility] [address] [id number] [place] [address]- 6393 Jan, [facility] [place] [facility] [address] [id number] [place] [address]- 7803 December, [facility] [place] [facility] [address] [id number] [place] [address]- 9085 December, [facility] [place] [facility] [address] [id number] [place] [address]- 3035 December, [facility] [place] [facility] [address] [id number] [place] [address]- 0008 December, [facility] [place] [facility] [address] [id number] [place] [address]- 0734 Dec, [facility] [place] [facility] [address] [id number] [place] [address]- 2382 Dec, [facility] [place] [facility] [address] [id number] [place] [address]- 1185 Dec, [facility] [place] [facility] [address] [id number] [place] [address]- 5587 Dec, [facility] [place] [facility] [address] [id number] [place] [address]- 3088 Dec, [facility] [place] [facility] [address] [id number] [place] [address]- 5602 Dec, [facility] [place] [facility] [address] [id number] [place] [address]01 Dec, [facility] [place] [facility] [address] [id number] [place] [address]- 5070 Dec, [facility] [place] [facility] [address] [id number] [place] [address]- 4881 Dec, [facility] [place] [facility] [address] [id number] [place] [address]- 7312 Dec, [facility] [place] [facility] [address] [id number] [place] [address]- 3298 Dec, [facility] [place] [facility] [address] [id number] [place] [address]- 3537 Dec, [facility] [place] [facility] [address] [id number] [place] [address]- 1448 Dec, [facility] [place] [facility] [address] [id number] [place] [address]- 4688 Dec, [facility] [place] [facility] [address] [id number] [place] [address]- 3620 Oct, [facility] [place] [facility] [address] [id number] [place] [address]- 6334 Oct, [facility] [place] [facility] [address] [id number] [place] [address]- 2249 Oct, [facility] [place] [facility] [address] [id number] [place] [address]- 6684 Oct, [facility] [place] [facility] [address] [id number] [place] [address]- 2936 Oct, [facility] [place] [facility] [address] [id number] [place] [address]- 2801 Oct, [facility] [place] [facility] [address] [id number] [id number] Oct, 2013 [facility] [address] [id number] [place] [address]- 2218 Oct, [facility] [address] [id number] [place] [address]- 7607 Oct, [facility] [address] [id number] [place] [address]- 3323 Oct, [facility] [address] [id number] [place] [address]- 7870 Sep, [facility] [address] [id number] [place] [address]- 8314 Sep, [facility] [address] [id number] [place] [address]- 7856 Sep, [facility] [address] [id number] [place] [address]- 0510 Sep, [facility] [address] [id number] [place] [address]- 6751 Sep, [facility] [address] [id number] [place] [address]- 3175 Sep, [facility] [address] [id number] [place] [address]- 4321 Aug, [facility] [address] [id number] [place] [address]- 6168 Aug, [facility] [address] [id number] [place] [address]- 9541 Jul, [facility] [place] [facility] [address] [id number] [place] [address]- 1504 Jul, [facility] [place] [facility] [address] [id number] [place] [address]- 9376 Jul, [facility] [address] [id number] [place] [address]90 Jul, [facility] [address] [facility] [id number] [place] [address]- 3493 Jul, IMMUNIZATIONS No Known Immunizations SOCIAL HISTORY Never Assessed REASON FOR VISIT Transition of Care, Bilateral thumb pain and swelling x 2 months, ABoggsEMERY PLAN OF CARE Activity Details Follow Up 2 Months Reason:DMT1 VITAL SIGNS Height 66 in 2018-04-01 Weight 211.3 lbs 2018-04-01 Temperature 98.3 degrees Fahrenheit 2018-04-01 Heart Rate 88 bpm 2018-04-01 Respiratory Rate 18 2018-04-01 BMI 34.10 kg/m2 2018-04-01 Blood pressure systolic 128 mmHg 2018-04-01 Blood pressure diastolic 90 mmHg 2018-04-01 MEDICATIONS Medication Instructions Dosage Frequency Start Date End Date Duration Status Fish Oil 1000 MG Orally Once a day 2 capsule 24h Active Tylenol 8 Hour Active Zofran ODT 4 MG Orally 3 times a day, prn take 1 tablets by Oral route every 8 hours PRN Nausea or Vomiting Sep, Active Glucagon Emergency 1 MG as directed Apr, Active Vitamin B12 100 MCG Orally Once a day 1 tablet 24h Active Vitamin C 500 MG Active Lovastatin 40 mg Orally Once a day 1 tablet with a meal 24h Mar, 30 days Active Dicyclomine HCl 10 MG TAKE ONE CAPSULE BY MOUTH TWICE DAILY NEEDED Active Wellbutrin SR 150 MG Orally Once a day 1 tablet 24h Jul, 30 day (s) Active Vitamin D 2000 UNIT Orally Once a day 1 tablet 24h Active Humalog 100 UNIT/ML Subcutaneous pump as per pump-must have appt for refills inject Units by Subcutaneous route every hour per insulin pump 14 Active Enalapril Maleate 10 mg Orally Once a day 1 tablet 24h Active Potassium 99 MG Orally Once a day 1 tablet 24h Active Suboxone 8-2 MG Sublingual Once a day 2 film under the tongue and allow to dissolve 24h Aug, 28 days Active RESULTS No Results PROCEDURES Procedure Date Ordered Result Body Site LIPID PANEL April 01, 2018 DRUG TEST PRSMV CHEM ANLYZR April 01, 2018 COMPREHEN METABOLIC PANEL April 01, 2018 COMPLETE CBC W/AUTO DIFF WBC April 01, 2018 VENIPUNCT, ROUTINE* April 01, 2018 Hemoglobin Test Send Out 0 dollar April 01, 2018 INSTRUCTIONS MEDICATIONS ADMINISTERED No Known Medications [...]
--- OUTSIDE RECORDS SUMMARY | 2018-08-30 20:30 | XMS REPORT ---
Author Author NOEMY MORGAN Organization [facility] Address [address] 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 Active 89375788 Problem Chronic kidney disease, stage 3 N18.3 Active 450418916 Problem CHI I (cervical intraepithelial neoplasia I) N87.0 Active 174521792 Problem Mild episode of recurrent major depressive disorder F33.0 Active 014214365 Problem Addiction to drug F19.20 Active 954499174 Problem Essential hypertension I10 Active 72589859 Problem Opioid use disorder, severe, in sustained remission F11.21 Active 59364668 Problem Irritable bowel syndrome with constipation K58.1 Active [id number] ALLERGIES No Information ENCOUNTERS Encounter Location Date Diagnosis [facility] [id number] [place] [address] 65269- 9855 May, [facility] [id number] [place] [address] 17446- 6989 May, [facility] [id number] [place] [address] 59035- 3394 May, Opioid use disorder, severe, in early remission F11.21 [facility] [address] [place] [address] May, Opioid use disorder, severe, in sustained remission F11.21 [facility] [id number] [place] [address] 39901- 5729 Apr, [facility] [id number] [place] [address] 48132- 5142 Apr, [facility] [id number] [place] [address] 42554- 2240 Apr, [facility] [id number] [place] [address] 56875- 3074 Apr, Opioid use disorder, severe, in early remission F11.21 [facility] [id number] [place] [address] 06659 -6557 Apr, Bacterial conjunctivitis of left eye H10.9 [facility] [id number] [place] [address] 94708- 3370 Apr, [facility] [id number] [place] [address] 53682- 8892 Apr, [facility] [id number] [place] [address] 13620- 7888 Mar, Essential hypertension I10 and Irritable bowel syndrome with constipation K58.1 [facility] [id number] [place] [address] 69148- 4133 Mar, [facility] [id number] [place] [address] 97669- 9593 Mar, Chronic kidney disease, stage 3 N18.3 ; 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 ; Opioid use disorder, severe, in sustained remission F11.21 and Mixed hyperlipidemia E78.2 [facility] [id number] [place] [address] 23962- 4410 Mar, Mixed hyperlipidemia E78.2 [facility] [id number] [place] [address] 76863- 5949 Mar, Opioid use disorder, severe, in early remission F11.21 [facility] [id number] [place] [address] 79081- 9820 Mar, [facility] [address] [place] [address] Mar, Opioid use disorder, severe, in sustained remission F11.21 [facility] [id number] [place] [address] 18155- 7153 Jan, Opioid use disorder, severe, 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 [facility] [id number] [place] [address] 55722- 8583 December, Opioid use disorder, severe, in early remission F11.21 [facility] [address] [place] [address] December, Opioid use disorder, severe, in sustained remission F11.21 [facility] [address] 519874- 0204 December, Opioid use disorder, severe, in sustained remission F11.21 and 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 [facility] [address] 91554- 7100 December, Opioid use disorder, severe, 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 [facility] [address] [place] [address] Dec, Opioid use disorder, severe, in sustained remission F11.21 [facility] [id number] [place] [address] 39461- 5674 Dec, 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 ; Unprotected sexual intercourse Z72.51 ; Pain of left thumb M79.645 ; Mixed hyperlipidemia E78.2 ; Gastroparesis K31.84 ; Essential hypertension I10 and Irritable bowel syndrome with constipation K58.1 [facility] [id number] [place] [address] 49231- 0947 Dec, Opioid use disorder, severe, in early remission F11.21 [facility] [id number] [place] [address] 70614- 6210 Oct, [facility] [id number] [place] [address] 73935- 7827 Oct, Opioid use disorder, severe, in early remission F11.21 [facility] [address] [address] 7207 Oct, [facility] [id number] [place] [address] 21712- 5926 Oct, Opioid use disorder, severe, in early remission F11.21 [facility] [id number] [place] [address] 80499- 7876 Oct, [facility] [id number] [place] [address] 47820- 4880 Oct, [facility] [address] [place] [address] Oct, Opioid use disorder, severe, in sustained remission F11.21 [facility] [id number] [place] [address] 46908- 8216 Sep, [facility] [id number] [place] [address] 38975- 6692 Sep, [facility] [id number] [place] [address] 24355- 7811 Sep, Opioid use disorder, severe, in early remission F11.21 [facility] [id number] [place] [address] 29489- 3245 Aug, Opioid use disorder, severe, 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 [facility] [id number] [place] [address] 14870- 7252 Jul, [facility] [id number] [place] [address] 26552- 0260 Jul, Chronic kidney disease, stage 3 N18.3 ; Dysthymia F34.1 and Opioid use disorder, severe, in sustained remission F11.21 [facility] [address] [place] [address] Jul, Opioid use disorder, severe, in sustained remission F11.21 [facility] [id number] [place] [address] 12626- 1547 Jul, Long-term use of high-risk medication Z79.899 and Chronic kidney disease, stage 3 N18.3 [facility] [id number] [place] [address] 64818- 7049 Jul, Opioid use disorder, severe, 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 [facility] [id number] [place] [address] 88305- 7260 Jul, [facility] [id number] [place] [address] 69469- 1684 Jun, [facility] [id number] [place] [address] 07242- 6753 Jun, [facility] [id number] [place] [address] 11763- 7204 Jun, Opioid use disorder, moderate, dependence F11.20 and Opioid use disorder, severe, 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 [facility] [id number] [place] [address] 39362- 2478 Jun, [facility] [id number] [place] [address] 96488- 0368 Jun, Long-term use of high-risk medication Z79.899 [facility] [id number] [place] [address] 24481- 6801 Jun, CHI I (cervical intraepithelial neoplasia I) N87.0 [facility] [id number] [place] [address] 92266- 0886 May, Opioid use disorder, severe, 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 [facility] [id number] [place] [address] 51842- 5109 18 May, 2017 Chronic kidney disease, stage 3 N18.3 [facility] [id number] [place] [address] 28665- 6672 14 May, 2017 Chronic kidney disease, stage 3 N18.3 [place] [address] [place] [address] May, Opioid use disorder, severe, in sustained remission F11.21 [facility] [id number] [place] [address] 70482- 1895 Apr, LGSIL on Pap smear of cervix R87.612 [facility] [address] [place] [address] Apr, [facility] [id number] [place] [address] 90913- 3075 Apr, Opioid use disorder, severe, in early remission F11.21 [facility] [id number] [place] [address] 16830- 4367 Apr, Opioid use disorder, severe, in early remission F11.21 [facility] [id number] [place] [address] 61109- 4590 Apr, Opioid use disorder, severe, in early remission F11.21 [facility] [id number] [place] [address] 99782- 3966 18 Apr, 2017 Opioid use disorder, severe, in early remission F11.21 [facility] [id number] [place] [address] 92829- 4690 14 Apr, 2017 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 [facility] [id number] [place] [address] 60964- 2618 10 Apr, 2017 Opioid use disorder, severe, 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 [facility] [address] [place] [address] Apr, Opioid use disorder, severe, in sustained remission F11.21 [facility] [id number] [place] [address] 69721- 4152 09 Apr, 2017 Opioid use disorder, severe, in early remission F11.21 [facility] [id number] [place] [address] 62149- 7558 02 Apr, 2017 Mild episode of recurrent major depressive disorder F33.0 and Right acute serous otitis media, recurrence not specified H65.01 [facility] [id number] [address]- 6070 Mar, [facility] [id number] [place] [address] 76755- 6402 Mar, Opioid use disorder, severe, 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 [address] [place] [address] Jan, Opioid use disorder, severe, in sustained remission F11.21 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 ; Gastroparesis K31.84 ; Essential hypertension I10 and Irritable bowel syndrome with constipation K58.1 [facility] [address] [place] [address] December, Opioid use disorder, severe, in sustained remission F11.21 [place] [id number] [place] [address] 81796- 3427 December, Opioid use disorder, severe, in early remission F11.21 [facility] [address] [place] [address] December, Opioid use disorder, severe, in sustained remission F11.21 [place] [id number] [place] [address] 02350- 0623 December, Encounter for therapeutic drug level monitoring Z51.81 [facility] [address] [place] [address] December, Opioid use disorder, severe, in sustained remission F11.21 [facility] [address] [place] [address] Dec, Opioid use disorder, severe, in sustained remission F11.21 [place] [id number] [place] [address] 00880- 4846 Dec, Opioid use disorder, severe, 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 [place] [id number] [place] [address] 77060- 6502 Dec, [facility] [address] [place] [address] Dec, Opioid use disorder, severe, in sustained remission F11.21 [place] [id number] [place] [address] 02683- 0729 Dec, Opioid use disorder, severe, in early remission F11.21 [facility] [address] [place] [address] 06 Dec, 2016 Opioid use disorder, severe, in sustained remission F11.21 [facility] [id number] [place] [address] 77090- 0496 Dec, 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 [facility] [address] 58863- 6234 Dec, Opioid use disorder, severe, in sustained remission F11.21 ; Encounter for therapeutic drug level monitoring Z51.81 and Other terminal supervisor ( 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 Z79.899 [facility] [address] [place] [address] 31 Oct, 2016 Opioid use disorder, severe, in sustained remission F11.21 [facility] [address] 96959- 1448 23 Oct, 2016 Opioid use disorder, severe, in early remission F11.21 [facility] [id number] [place] [address] 38051- 7598 Oct, [facility] [address] [place] [address] Oct, Opioid use disorder, severe, in sustained remission F11.21 [facility] [id number] [place] [address] 27992- 5238 15 Oct, 2016 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 [facility] [id number] [place] [address] 35669- 0099 14 Oct, 2016 Routine gynecological examination Z01.419 [facility] [id number] [place] [address] 53185- 4536 07 Oct, 2016 Opioid use disorder, severe, in early remission F11.21 [facility] [id number] [place] [address] 09214- 0136 06 Oct, 2016 Opioid use disorder, severe, in early remission F11.21 [facility] [address] [place] [address]- 4086 06 Oct, 2016 Opioid use disorder, severe, in early remission F11.21 [facility] [address] [place] [address] Oct, Opioid use disorder, severe, in sustained remission F11.21 [facility] [id number] [place] [address] 88578- 0062 24 Oct, 2016 Opioid use disorder, severe, in early remission F11.21 [facility] [id number] [place] [address] 15358- 8902 Oct, Opioid use disorder, severe, in early remission F11.21 [facility] [address] [place] [address] Oct, Opioid use disorder, severe, in sustained remission F11.21 [facility] [id number] [place] [address] 97309- 8406 Oct, Opioid use disorder, severe, in sustained remission F11.21 ; Encounter for therapeutic drug level monitoring Z51.81 and Other detention ( 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 Z79.899 [facility] [id number] [place] [address] 70508- 4107 16 Oct, 2016 [facility] [address] [place] [address] 14 Oct, 2016 Opioid use disorder, severe, in early remission F11.21 [facility] [address] [place] [address] 10 Oct, 2016 Opioid use disorder, severe, in early remission F11.21 [facility] [id number] [place] [address] 11698- 8550 09 Oct, 2016 Opioid use disorder, severe, in early remission F11.21 [facility] [id number] [place] [address] 49541- 3486 08 Oct, 2016 [facility] [id number] [place] [address] 10726- 7147 07 Oct, 2016 [facility] [id number] [place] [address] 06375- 1991 Oct, [facility] [address] [place] [address] Oct, Opioid use disorder, severe, in early remission F11.21 [facility] [id number] [place] [address] 61272- 0822 Sep, Opioid use disorder, severe, in early remission F11.21 [facility] [address] [place] [address] Sep, Opioid use disorder, severe, in early remission F11.[address] 33815- 8887 Sep, Opioid use disorder, severe, 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 ; Other terminal supervisor (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 Z79.899 and Encounter for therapeutic drug level monitoring Z51.[address] 14542- 5585 Sep, [facility] [address] [place] [id number] [place] [address] 20830- 0469 Sep, [facility] [address] [place] [address] 83341- 2969 Sep, Opioid use disorder, severe, 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 ; 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 ; Chronic kidney disease, stage 3 N18.3 ; Essential hypertension I10 and Irritable bowel syndrome with constipation K58.1 [facility] [address] [place] [address] Sep, Opioid use disorder, severe, in early remission F11.21 [facility] [address] [place] [address] Sep, Opioid use disorder, severe, in early remission F11.21 [facility] [address] [place] [id number] [place] [address] 98661- 0354 Sep, Opioid use disorder, moderate, dependence F11.[address] 31753- 2418 Sep, Opioid use disorder, moderate, dependence F11.20 [facility] [address] [place] [address] Sep, Opioid use disorder, severe, in early remission F11.21 [facility] [id number] [place] [address] 71872- 1733 Sep, Opioid use disorder, severe, in early remission F11.21 [facility] [address] [place] [address] Aug, Opioid use disorder, severe, in early remission F11.21 [facility] [id number] [place] [address] 12523- 8454 Aug, Opioid use disorder, moderate, dependence F11.20 [facility] [address] [address] Aug, Bug bite without infection, initial encounter W57.XXXA [facility] [address] [place] [address] 63251- 0132 Aug, Opioid use disorder, moderate, dependence F11.20 [facility] [address] [place] [address] Aug, [facility] [address] [place] [id number] [place] [address] 53242- 1076 Aug, Opioid use disorder, severe, 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 ; Other terminal supervisor (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 Z79.899 ; Encounter for therapeutic drug level monitoring Z51.81 and 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 [facility] [address] [place] [address] Aug, [facility] [address] [place] [id number] [place] [address] 13532- 3830 Aug, Opioid use disorder, moderate, dependence F11.20 ; Other detention (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 Z79.899 and Encounter for therapeutic drug level monitoring Z51.81 [facility] [address] [place] [id number] [place] [address] 79614- 9361 Aug, [facility] [address] [place] [id number] [place] [address] 97840- 1970 Aug, Non-intractable vomiting with nausea, unspecified vomiting type R11.2 [facility] [address] 33698- 8612 Aug, Opioid use disorder, moderate, dependence F11.20 and Non- intractable vomiting with nausea, unspecified vomiting type R11.2 [facility] [address] 25429- 3092 Aug, [facility] [address] 46922- 5206 Aug, Opioid use disorder, moderate, dependence F11.20 [facility] [id number] [place] [address] 62619- 4636 Aug, [facility] [address] 61316- 4980 Jul, 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 and Opioid use disorder, moderate, dependence F11.20 [facility] [address] [place] [address] Jul, [facility] [address] 94243- 8257 Jul, [facility] [id number] [place] [address] 83552- 1147 Jul, [facility] [id number] [place] [address] 50397- 1373 Jul, Addiction to drug F19.20 and Chronic kidney disease, stage 3 N18.3 [facility] [address] [place] [address] Jul, Counseling on substance use and abuse Z71.89 [facility] [id number] [place] [address] 38877- 4663 Jul, Chronic kidney disease, stage 3 N18.3 [facility] [address] 45265- 6052 Jul, 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 ; Diarrhea, unspecified type R19.7 and Essential hypertension I10 [facility] [id number] [place] [address] 48598- 1825 Jul, [facility] [id number] [place] [address] 14417- 9562 Jun, [place] [address] [address] Jun, [facility] [address] [address] Apr, 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 [place] [address] [address] Apr, Sore throat and laryngitis J06.0 and Non-intractable vomiting with nausea, unspecified vomiting type R11.2 [place] [address] [address] Apr, [facility] [address] [place] [id number] [place] [address] 89568- 6449 Mar, [place] [id number] [place] [address] 49935- 7254 Jan, [place] [address] [place] [id number] [place] [address] 85757- 6067 Jan, [place] [address] [id number] [place] [address] 44375- 1617 Jan, [facility] [id number] [place] [address] 80684- 6543 December, 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 ; Gastroparesis K31.84 ; Mixed hyperlipidemia E78.2 ; Chronic kidney disease, stage 3 N18.3 ; Dysthymia F34.1 and Acute bilateral low back pain without sciatica M54.5 [place] [address] 27470- 3297 December, [facility] [id number] [place] [address] 16067- 9543 December, [facility] [address] 06343- 6389 Aug, Depression F32.9 and Gastroparesis K31.84 [facility] [address] 58765- 4123 Aug, Gastroparesis K31.84 [facility] [address] 06363- 9245 Jul, Recurrent UTI N39.0 ; Chronic kidney disease, stage 3 N18.3 and 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 [facility] [address] 85001- 3201 Jul, [facility] [address] [id number] Jul, Dental examination Z01.20 and Dental caries K02.9 [facility] [address] 36522- 5701 Jul, [facility] [id number] [place] [address] 62262 -0623 Jul, Dysuria R30.0 ; Urinary tract infection N39.0 and Nausea R11.0 [facility] [id number] [place] [address] 22324- 2750 Jun, Dysuria R30.0 [facility] [address] 23965- 0419 Jun, Dysuria R30.0 [facility] [address] 85519- 1861 Jun, Dysuria R30.0 [facility] [id number] [place] [address] 24127- 4948 Jun, [place] [id number] [address] 3910 Jun, Acute cystitis with hematuria N30.01 [place] [id number] [place] [address] 21809- 5659 May, [place] [id number] [place] [address] 95752- 5426 Apr, Diabetes mellitus without mention of complication, type I [ juvenile type], not stated as uncontrolled 250.01 ; Gastroparesis due to DM 250.60 ; Contraception management V25.9 and Renal insufficiency 593.9 [place] [id number] [place] [address] 65825- 4019 Apr, [place] [id number] [place] [address] 91392- 6703 Apr, [place] [id number] [place] [address] 78309- 6723 Mar, [place] [id number] [place] [address] 74282- 7553 Mar, Hyperlipidemia 272.4 and Hypertensive heart and chronic kidney disease, benign, without heart failure and with chronic kidney disease stage I through stage IV, or unspecified 404.10 [id number] [place] [address] 02763- 5445 Mar, Hyperlipidemia 272.4 ; Hyponatremia 276.1 ; 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 ; Hypertensive heart and chronic kidney disease, benign, without heart failure and with chronic kidney disease stage I through stage IV, or unspecified 404.10 ; Proteinuria 791.0 and Chronic kidney disease (CKD), stage III (moderate) 585.3 [place] [id number] [place] [address] 94588- 6564 Mar, [place] [id number] [place] [address] 28501- 6903 Mar, Elevated blood sugar level 790.29 [place] [id number] [place] [address] [place] [address]- 9816 07 Mar, 2015 Low grade squamous intraepithelial lesion (LGSIL) on cervical Pap smear 795.03 [facility] [address] [address]- 4006 Mar, Amenorrhea 626.0 [facility] [address] [address]- 8525 15 Jan, 2015 Amenorrhea 626.0 ; Routine gynecological examination V72.31 and Screen for STD (sexually transmitted disease) V74.5 [facility] [address] 5766 11 Jan, 2015 Amenorrhea 626.0 [facility] [address] 5449 08 Jan, 2015 Routine gynecological examination V72.31 ; Screen for STD ( sexually transmitted disease) V74.5 ; Pap test, as part of routine gynecological examination V76.2 ; Breast cancer screening V76.10 and Amenorrhea 626.0 [facility] [address], [place] [address]- 2238 December, [facility] [address] 7725 Dec, [facility] [id number] 8647 Dec, [facility] [id number] [address]- 3986 Oct, [facility] [id number] [address]- 0450 Oct, [facility] [id number] [address]- 5965 Oct, [facility] [id number] [address] 2546 Oct, [facility] [id number] [address]- 3039 Oct, [facility] [place] [facility] [address] [id number] [place] [address]- 4392 Oct, [facility] [place] [facility] [address] [id number] [place] [address]- 7411 Oct, [facility] [place] [facility] [address] [id number] [place] [address]- 3355 Oct, [facility] [place] [facility] [address] [id number] [place] [address]- 7529 Oct, [facility] [place] [facility] [address] [id number] [place] [address]- 0732 Oct, [facility] [place] [facility] [address] [id number] [place] [address]- 6226 Oct, [facility] [place] [facility] [address] [id number] [place] [address]- 0491 Sep, [facility] [place] [facility] [address] [id number] [place] [address]- 0086 Sep, [facility] [place] [facility] [address] [id number] [place] [address]- 9780 Sep, [facility] [place] [facility] [address] [id number] [place] [address]- 4170 Sep, [facility] [place] [facility] [address] [id number] [place] [address]- 8519 Sep, [facility] [place] [facility] [address] [id number] [address]- 4907 Sep, [facility] [place] [facility] [address] [id number] [place] [address]- 3259 Sep, [facility] [place] [facility] [address] [id number] [place] [address]- 1921 Sep, [facility] [place] [facility] [address] [id number] [place] [address]- 1584 Sep, [facility] [place] [facility] [address] [id number] [place] [address]- 2665 15 Sep, 2014 [facility] [address] [id number] [place] [address]- 5408 Sep, [facility] [address] [id number] [place] [address]- 9743 Sep, [facility] [address] [id number] [place] [address]- 1949 Sep, [facility] [address] [id number] [place] [address]- 2310 Sep, [facility] [address] [id number] [place] [address]- 8873 Sep, [facility] [address] [id number] [place] [address]- 2130 Sep, [facility] [address] [id number] [place] [address]- 5790 Sep, [facility] [address] [id number] [place] [address]- 9187 Sep, [facility] [address] [id number] [place] [address]- 2505 Sep, [facility] [address] [id number] [place] [address]- 4835 Sep, [facility] [address] [id number] [place] [address]- 9787 Aug, [facility] [address] [id number] [place] [address]- 1053 Aug, [facility] [place] [facility] [address] [id number] [place] [address]- 7042 Aug, [facility] [place] [facility] [address] [id number] [place] [address]- 9825 Aug, [facility] [address] [id number] [place] [address]- 9502 Aug, [facility] [place] [facility] [address] [id number] [place] 8153 Aug, [facility] [place] [facility] [address] [id number] [place] [address]- 9168 Aug, [facility] [place] [facility] [address] [id number] [place] [address]- 9254 Aug, [facility] [place] [facility] [address] [id number] [place] [address]- 7427 Aug, [facility] [place] [facility] [address] [id number] [place] 7149 Aug, [facility] [place] [facility] [address] [id number] [place] [address]- 2430 Aug, [facility] [place] [facility] [address] [id number] [place] [address]- 4156 Aug, [facility] [place] [facility] [address] [id number] [place] [address]- 5802 Jul, [facility] [place] [facility] [address] [id number] [place] [address]- 6675 Jul, [facility] [place] [facility] [address] [id number] [place] [address]- 5192 Jul, [facility] [place] [facility] [address] [id number] [place] [address]- 1090 Jul, [facility] [place] [facility] [address] [id number], [place] [address]- 9770 Jul, [facility] [place] [facility] [address] [id number] [place] [address]- 1122 Jul, [facility] [place] [facility] [address] [id number] [place] [address]- 6128 Jul, [facility] [place] [facility] [address] [id number] [place] 4545 Jul, [facility] [place] [facility] [address] [id number] [address]- 9362 Jul, [facility] [place] [facility] [address] [id number] [place] [address]- 9359 Jul, [facility] [place] [facility] [address] [id number] [place] [address]- 7964 Jun, [facility] [place] [facility] [address] [id number] [place] [address]- 5635 Jun, [facility] [place] [facility] [address] [id number] [place] [address]- 8639 Jun, [facility] [place] [facility] [address] [id number] [place] [address]- 8753 Jun, [facility] [place] [facility] [address] [id number] [place] [address]- 3009 Jun, [facility] [place] [facility] [address] [id number] [place] [address]- 7129 Jun, [facility] [place] [facility] [address] [id number] [place] [address]- 3408 Jun, [facility] [place] [facility] [address] [id number] [place] [address]- 9958 15 Jun, 2014 [facility] [place] [facility] [address] [id number] [place] [address]- 9673 22 May, 2014 [facility] [place] [facility] [address] [id number] [place] [address]- 2039 22 May, 2014 [facility] [place] [facility] [address] [id number], [place] [address]- 4154 18 May, 2014 [facility] [place] [facility] [address] [id number] [place] [address]- 2055 18 May, 2014 [facility] [place] [facility] [address] [id number] [place] [address]- 5910 09 May, 2013 [facility] [place] [facility] [address] [id number] [place] [address]- 5890 08 Sep, 2013 [facility] [place] [facility] [address] [id number] [place] [address]- 4090 May, [facility] [place] [facility] [address] [id number] [place] [address]- 3862 May, [facility] [place] [facility] [address] [id number] [place] [address]- 0724 Apr, [facility] [place] [facility] [address] [id number] [place] [address]- 0896 Apr, [facility] [place] [facility] [address] [id number] [place] [address]- 8648 Apr, [facility] [place] [facility] [address] [id number] [place] [address]- 9276 Apr, [facility] [place] [facility] [address] [id number] [place] [address]- 0437 Mar, [facility] [place] [facility] [address] [id number] [place] [address]- 4012 Mar, [facility] [place] [facility] [address] [id number] [place] [address]- 6578 Mar, [facility] [place] [facility] [address] [id number] [place] [address]- 1158 Mar, [facility] [place] [facility] [address] [id number] [place] 9167 Mar, [facility] [place] [facility] [address] [id number] [place] [address]- 3514 Mar, [facility] [place] [facility] [address] [id number] [place] [address]- 2541 Jan, [facility] [place] [facility] [address] [id number] [place] [address]- 1228 Jan, [facility] [place] [facility] [address] [id number] [place] [address]- 6314 Jan, [facility] [place] [facility] [address] [id number] [place] [address]- 9480 Jan, [facility] [place] [facility] [address] [id number] [place] [address]- 5753 Jan, [facility] [place] [facility] [address] [id number] [place] [address]- 6127 Jan, [facility] [place] [facility] [address] [id number] [place] [address]- 3700 Jan, [facility] [place] [facility] [address] [id number] [place] [address]- 3675 Jan, [facility] [place] [facility] [address] [id number] [place] [address]- 6603 Jan, [facility] [place] [facility] [address] [id number] [place] [address]- 4981 Jan, [facility] [place] [facility] [address] [id number] [place] [address]- 6542 Jan, [facility] [place] [facility] [address] [id number] [place] [address]- 3545 Jan, [facility] [place] [facility] [address] [id number] [place] [address]- 0125 December, [facility] [place] [facility] [address] [id number] [place] [address]- 3133 December, [facility] [place] [facility] [address] [id number] [place] [address]- 1268 December, [facility] [place] [facility] [address] [id number] [place] [address]- 8274 December, [facility] [place] [facility] [address] [id number] [place] [address]- 7426 Dec, [facility] [place] [facility] [address] [id number] [place] [address]- 8487 Dec, [facility] [place] [facility] [address] [id number] [place] [address]- 0832 Dec, [facility] [place] [facility] [address] [id number] [place] [address]- 6567 Dec, [facility] [place] [facility] [address] [id number] [place] [address]- 0167 Dec, [facility] [place] [facility] [address] [id number] [place] [address]- 4732 Dec, [facility] [place] [facility] [address] [id number] [place] [address]- 8154 Dec, [facility] [place] [facility] [address] [id number] [place] [address]- 6356 Dec, [facility] [place] [facility] [address] [id number] [place] [address]- 0616 Dec, [facility] [place] [facility] [address] [id number] [place] [address]- 3935 Dec, [facility] [place] [facility] [address] [id number] [place] [address]- 2623 Dec, [facility] [place] [facility] [address] [id number] [place] [address]- 6514 Dec, [facility] [place] [facility] [address] [id number] [place] [address]- 4946 Dec, [facility] [place] [facility] [address] [id number] [place] [address]- 3134 Dec, [facility] [place] [facility] [address] [id number] [place] [address]- 7110 Oct, [facility] [place] [facility] [address] [id number] [place] [address]- 8945 31 Oct, 2013 [facility] [place] [facility] [address] [id number] [place] [address]- 5953 Oct, [facility] [place] [facility] [address] [id number] [place] [address]- 7738 29 Oct, 2013 [facility] [place] [facility] [address] [id number] [place] [address]- 4203 28 Oct, 2013 [facility] [place] [facility] [address] [id number] [place] [address]- 0040 Oct, [facility] [place] [facility] [address] [id number] [place] [address] Oct, [facility] [place] [facility] [address] [id number] [place] [address]- 1162 Oct, [facility] [place] [facility] [address] [id number] [place] [address]- 0291 Oct, [facility] [place] [facility] [address] [id number] [place] [address]- 1742 Oct, [facility] [place] [facility] [address] [id number] [place] [address]- 3567 Sep, [facility] [place] [facility] [address] [id number] [place] [address]- 2705 Sep, [facility] [place] [facility] [address] [id number] [place] [address]- 5708 Sep, [facility] [place] [facility] [address] [id number] [place] [address]- 5434 Sep, [facility] [place] [facility] [address] [id number] [place] [address]- 3358 Sep, [facility] [place] [facility] [address] [id number] [place] 2465 Sep, [facility] [place] [facility] [address] [id number] [place] [address]- 4873 Aug, [facility] [place] [facility] [address] [id number] [place] [address]- 2995 18 Aug, 2013 [facility] [place] [facility] [address] [id number] [place] [address]- 1342 Jul, [facility] [place] [facility] [address] [id number] [place] [address]- 8346 Jul, [facility] [place] [facility] [address] [id number] [place] 1408 Jul, [facility] [address] [facility] [id number] [place] [address] [address]200 Jul, [facility] [address] [facility] [id number] [place] [address]- 1477 Jul, IMMUNIZATIONS No Known Immunizations SOCIAL HISTORY Never Assessed REASON FOR VISIT [facility] into for upload PLAN OF CARE VITAL SIGNS MEDICATIONS Unknown [...]
[2018-08-30 20:31] LABS: BILIRUBIN,URINE NEGATIVE (NEGATIVE); CLARITY,URINE VERY CLOUDY; COLOR,URINE YELLOW; GLUCOSE, URINE (UA) 4+ (NEGATIVE); KETONES,URINE 1+ (NEGATIVE); LEUKOCYTE ESTERASE ,URINE 1+ (NEGATIVE); NITRITE,URINE NEGATIVE (NEGATIVE); PH,URINE 6 (5-9); PROTEIN,URINE 3+ (NEGATIVE); UROBILINOGEN,URINE NORMAL (NORMAL)
--- OUTSIDE RECORDS SUMMARY | 2018-08-30 20:31 | XMS REPORT ---
Author Author NOEMY MORGAN Organization [facility] Address [address] 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 Active 60741847 Problem Chronic kidney disease, stage 3 N18.3 Active 355645770 Problem CHI I (cervical intraepithelial neoplasia I) N87.0 Active 888616557 Problem Mild episode of recurrent major depressive disorder F33.0 Active 200067068 Problem Addiction to drug F19.20 Active 075565928 Problem Essential hypertension I10 Active 52101837 Problem Opioid use disorder, severe, in sustained remission F11.21 Active 63424703 Problem Irritable bowel syndrome with constipation K58.1 Active [id number] ALLERGIES No Information ENCOUNTERS Encounter Location Date Diagnosis [facility] [id number] [place] [address] 45012- 1745 May, [facility] [address] [place] [address] May, Opioid use disorder, severe, in sustained remission F11.21 [facility] [id number] [address] Apr, [facility] [id number] [place] [address] 67835- 8728 Apr, [facility] [id number] [place] [address] 51744- 8112 Apr, [facility] [id number] [place] [address] 96026- 8200 Apr, Opioid use disorder, severe, in early remission F11.21 [facility] [id number] [place] [address] 66733 -5031 Apr, Bacterial conjunctivitis of left eye H10.9 [facility] [id number] [place] [address] 25714- 8838 Apr, [facility] [address] 24379- 0486 Apr, [facility] [address] [address]67- 5819 Mar, Essential hypertension I10 and Irritable bowel syndrome with constipation K58.1 [facility] [address] 44276- 8667 Mar, [facility] [address] 46290- 9058 Mar, Chronic kidney disease, stage 3 N18.3 ; 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 ; Opioid use disorder, severe, in sustained remission F11.21 and Mixed hyperlipidemia E78.2 [facility] [id number] [place] [address] 35174- 9085 Mar, Mixed hyperlipidemia E78.2 [facility] [id number] [place] [address] 63449- 1738 Mar, Opioid use disorder, severe, in early remission F11.21 [facility] [id number] [place] [address] 87668- 6693 Mar, [facility] [address] [place] [address] Mar, Opioid use disorder, severe, in sustained remission F11.21 [facility] [id number] [place] [address] 76113- 7049 Jan, Opioid use disorder, severe, in early remission F11.21 [facility] [address] [address] December, Opioid use disorder, severe, in early remission F11.21 [facility] [address] [place] [address] December, Opioid use disorder, severe, in sustained remission F11.21 [facility] [address] [address] 47[address] December, Opioid use disorder, severe, in sustained remission F11.21 and 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 [facility] [id number] [place] [address] 42164- 1030 December, Opioid use disorder, severe, in early remission F11.21 [facility] [address] [place] [address] Dec, Opioid use disorder, severe, in sustained remission F11.21 [facility] [id number] [place] [address] 53197- 4214 Dec, 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 ; Unprotected sexual intercourse Z72.51 ; Pain of left thumb M79.645 ; Mixed hyperlipidemia E78.2 ; Gastroparesis K31.84 ; Essential hypertension I10 and Irritable bowel syndrome with constipation K58.1 [facility] [address] [address] 20[address] Dec, Opioid use disorder, severe, in early remission F11.21 [facility] [id number] [place] [address] 86775- 6354 Oct, [facility] [id number] [place] [address] 96700- 7485 Oct, Opioid use disorder, severe, in early remission F11.21 [facility] [id number] [place] [address] 33683- 8329 Oct, [facility] [id number] [place] [address] 99676- 5987 Oct, Opioid use disorder, severe, in early remission F11.21 [facility] [address] [address] 0386 Oct, [facility] [id number] [place] [address] 23023- 1936 Oct, [facility] [address] [place] [address] Oct, Opioid use disorder, severe, in sustained remission F11.21 [facility] [id number] [place] [address] 13235- 5358 Sep, [facility] [id number] [place] [address] 10559- 4303 Sep, [facility] [id number] [place] [address] 57282- 3402 Sep, Opioid use disorder, severe, in early remission F11.21 [facility] [id number] [place] [address] 57954- 2600 Aug, Opioid use disorder, severe, in early remission F11.21 [facility] [id number] [place] [address] 65926- 5421 Jul, [facility] [id number] [place] [address] 44148- 0068 Jul, Chronic kidney disease, stage 3 N18.3 ; Dysthymia F34.1 and Opioid use disorder, severe, in sustained remission F11.21 [facility] [address] [place] [address] Jul, Opioid use disorder, severe, in sustained remission F11.21 [facility] [id number] [place] [address] 11992- 2342 Jul, Long-term use of high-risk medication Z79.899 and Chronic kidney disease, stage 3 N18.3 [facility] [id number] [place] [address] 06443- 2366 Jul, Opioid use disorder, severe, in early remission F11.21 [facility] [id number] [place] [address] 20804- 6367 Jul, [facility] [address] 61633- 4599 Jun, [facility] [address] 63478- 1893 Jun, [facility] [address] 41813- 3047 Jun, Opioid use disorder, moderate, dependence F11.20 and Opioid use disorder, severe, in early remission F11.21 [place] [address] 48766- 0740 Jun, [place] [address] 77315- 8635 Jun, Long-term use of high-risk medication Z79.899 [place] [address] 30114- 2364 Jun, CHI I (cervical intraepithelial neoplasia I) N87.[address] 86326- 6664 22 May, 2017 Opioid use disorder, severe, in early remission F11.21 [place] [facility] [id number] [place] [address] 62260- 8393 18 May, 2017 Chronic kidney disease, stage 3 N18.3 [place] [facility] [id number] [place] [address] 64709- 2296 14 May, 2017 Chronic kidney disease, stage 3 N18.3 [facility] [address] [place] [address] 05 May, 2017 Opioid use disorder, severe, in sustained remission F11.21 [facility] [id number] [place] [address] 52425- 6610 Apr, LGSIL on Pap smear of cervix R87.612 [facility] [address] [place] [address] Apr, [facility] [address] [address]- 2104 Apr, Opioid use disorder, severe, in early remission F11.21 [facility] [address] [address] 1259 Apr, Opioid use disorder, severe, in early remission F11.21 [facility] [id number] [place] [address] 24237- 8974 Apr, Opioid use disorder, severe, in early remission F11.21 [facility] [id number] [place] [address] 09054- 2025 Apr, Opioid use disorder, severe, in early remission F11.21 [facility] [id number] [place] [address] 67708- 9705 14 Apr, 2017 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 [facility] [id number] [place] [address] 74452- 9022 Apr, Opioid use disorder, severe, in early remission F11.21 [facility] [address] [place] [address] Apr, Opioid use disorder, severe, in sustained remission F11.21 [facility] [id number] [place] [address] 18965- 3036 Apr, Opioid use disorder, severe, in early remission F11.21 [facility] [id number] [place] [address] 72948- 1061 Apr, Mild episode of recurrent major depressive disorder F33.0 and Right acute serous otitis media, recurrence not specified H65.01 [facility] [id number] [place] [address] 67540- 2055 Mar, [facility] [id number] [place] [address] 61635- 6210 Mar, Opioid use disorder, severe, in early remission F11.21 [facility] [id number] [address]- 3685 Mar, [facility] [address] [place] [address] Mar, Opioid use disorder, severe, in sustained remission F11.21 [facility] [address] [place] [address] Mar, Opioid use disorder, severe, in sustained remission F11.21 [facility] [id number] [place] [address] 00131- 8969 Mar, Opioid use disorder, severe, in early remission F11.21 [facility] [id number] [place] [address] 64302- 9103 Jan, Opioid use disorder, severe, in early remission F11.21 [facility] [address] [place] [address] Jan, Opioid use disorder, severe, in sustained remission F11.21 [facility] [address] [place] [address] Jan, Opioid use disorder, severe, in sustained remission F11.21 [facility] [id number] [place] [address] 64361- 1349 Jan, Opioid use disorder, severe, in early remission F11.21 [facility] [address] [place] [address] Jan, Opioid use disorder, severe, in sustained remission F11.21 [facility] [id number] [place] [address] 97270- 5600 December, Opioid use disorder, severe, in early remission F11.21 [facility] [address] [place] [address] December, Opioid use disorder, severe, in sustained remission F11.21 [facility] [id number] [place] [address] 23906- 8810 December, Routine gynecological examination Z01.419 and Chronic kidney disease, stage 3 N18.3 [facility] [address] [place] [id number] [place] [address] 35397- 3578 December, Chronic kidney disease, stage 3 N18.3 ; 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 ; Gastroparesis K31.84 ; Essential hypertension I10 and Irritable bowel syndrome with constipation K58.1 [facility] [address] [place] [address] December, Opioid use disorder, severe, in sustained remission F11.21 [facility] [address] [place] [id number] [place] [address] 59375- 7646 December, Opioid use disorder, severe, in early remission F11.21 [facility] [address] [place] [address] December, Opioid use disorder, severe, in sustained remission F11.[address] 43055- 7482 December, Encounter for therapeutic drug level monitoring Z51.81 [facility] [address] [place] [address] December, Opioid use disorder, severe, in sustained remission F11.21 [facility] [address] [place] [address] Dec, Opioid use disorder, severe, in sustained remission F11.21 [facility] [address] [place] [address] 97037- 5344 Dec, Opioid use disorder, severe, in early remission F11.21 [facility] [address] [place] [id number] [place] [address] 01268- 7913 Dec, [facility] [address] [place] [address] Dec, Opioid use disorder, severe, in sustained remission F11.21 [facility] [address] [place] [id number] [place] [address] 78458- 8442 Dec, Opioid use disorder, severe, in early remission F11.21 [facility] [address] [place] [address] Dec, Opioid use disorder, severe, in sustained remission F11.21 [facility] [address] [place] [address] 14728- 8622 Dec, 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 [facility] [id number] [place] [address] 11749- 1756 Dec, Opioid use disorder, severe, in sustained remission F11.21 ; Encounter for therapeutic drug level monitoring Z51.81 and Other retirement ( 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 Z79.899 [facility] [address] [place] [address] 31 Oct, 2016 Opioid use disorder, severe, in sustained remission F11.21 [facility] [id number] [place] [address] 89091- 5292 23 Oct, 2016 Opioid use disorder, severe, in early remission F11.21 [place] [address] 48494- 9544 15 Oct, 2016 [facility] [address] [place] [address] Oct, Opioid use disorder, severe, in sustained remission F11.21 [facility] [id number] [place] [address] 60807- 2754 15 Oct, 2016 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 [facility] [address] 36319- 7685 14 Oct, 2016 Routine gynecological examination Z01.419 [place] [id number] [place] [address] 32021- 3436 07 Oct, 2016 Opioid use disorder, severe, in early remission F11.21 [facility] [id number] [place] [address] 78141- 1625 06 Oct, 2016 Opioid use disorder, severe, in early remission F11.21 [facility] [address] 30014- 9828 06 Oct, 2016 Opioid use disorder, severe, in early remission F11.21 [facility] [address] [place] [address] 02 Oct, 2016 Opioid use disorder, severe, in sustained remission F11.21 [facility] [address] [place] [address]- 8955 24 Oct, 2016 Opioid use disorder, severe, in early remission F11.21 [facility] [id number] [place] [address] 67074- 7783 23 Oct, 2016 Opioid use disorder, severe, in early remission F11.21 [facility] [address] [place] [address] 22 Oct, 2016 Opioid use disorder, severe, in sustained remission F11.21 [facility] [id number] [place] [address] 97666- 8864 20 Oct, 2016 Opioid use disorder, severe, in sustained remission F11.21 ; Encounter for therapeutic drug level monitoring Z51.81 and 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 [facility] [id number] [place] [address] 39691- 1304 16 Oct, 2016 [facility] [address] [place] [address] 14 Oct, 2016 Opioid use disorder, severe, in early remission F11.21 [facility] [address] [place] [address] 10 Oct, 2016 Opioid use disorder, severe, in early remission F11.21 [facility] [id number] [place] [address] 20761- 5269 09 Oct, 2016 Opioid use disorder, severe, in early remission F11.21 [facility] [id number] [place] [address] 02792- 1902 08 Oct, 2016 [facility] [id number] [place] [address] 29866- 8690 07 Oct, 2016 [facility] [id number] [place] [address] 84682- 9027 Oct, [facility] [address] [place] [address] Oct, Opioid use disorder, severe, in early remission F11.21 [facility] [id number] [place] [address] 38283- 6665 Sep, Opioid use disorder, severe, in early remission F11.21 [facility] [address] [place] [address] Sep, Opioid use disorder, severe, in early remission F11.21 [facility] [id number] [place] [address] 74132- 3903 Sep, Opioid use disorder, severe, in early remission F11.21 ; 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 and Encounter for therapeutic drug level monitoring Z51.81 [facility] [id number] [place] [address] 78676- 2439 Sep, [facility] [id number] [place] [address] 43217- 7294 Sep, [facility] [id number] [place] [address] 03777- 5338 Sep, Opioid use disorder, severe, in early remission F11.21 ; 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 ; Chronic kidney disease, stage 3 N18.3 ; Essential hypertension I10 and Irritable bowel syndrome with constipation K58.1 [facility] [address] [place] [address] Sep, Opioid use disorder, severe, in early remission F11.21 [facility] [address] [place] [address] Sep, Opioid use disorder, severe, in early remission F11.21 [facility] [id number] [place] [address] 53328- 9254 Sep, Opioid use disorder, moderate, dependence F11.20 [facility] [id number] [place] [address] 03535- 5088 Sep, Opioid use disorder, moderate, dependence F11.20 [facility] [address] [place] [address] Sep, Opioid use disorder, severe, in early remission F11.21 [facility] [address] [place] [id number] [place] [address] 40693- 5030 Sep, Opioid use disorder, severe, in early remission F11.21 [facility] [address] [place] [address] Aug, Opioid use disorder, severe, in early remission F11.21 [facility] [id number] [place] [address] 26114- 6439 Aug, Opioid use disorder, moderate, dependence F11.20 [facility] [address] 47819 -4765 Aug, Bug bite without infection, initial encounter W57.XXXA [facility] [address] 08944- 3777 Aug, Opioid use disorder, moderate, dependence F11.20 [facility] [address] [place] [address] Aug, [facility] [id number] [place] [address] 15736- 2116 Aug, Opioid use disorder, severe, in early remission F11.21 ; Other retirement (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 Z79.899 ; Encounter for therapeutic drug level monitoring Z51.81 and 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 [facility] [address] [place] [address] Aug, [facility] [id number] [place] [address] 11608- 7929 Aug, Opioid use disorder, moderate, dependence F11.20 ; Other retirement (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 Z79.899 and Encounter for therapeutic drug level monitoring Z51.81 [facility] [id number] [place] [address] 36283- 5059 Aug, [facility] [address] 63178- 0602 Aug, Non-intractable vomiting with nausea, unspecified vomiting type R11.2 [facility] [id number] [place] [address] 25691- 8759 Aug, Opioid use disorder, moderate, dependence F11.20 and Non- intractable vomiting with nausea, unspecified vomiting type R11.2 [facility] [id number] [place] [address] 98626- 6576 Aug, [facility] [id number] [place] 1684 Aug, Opioid use disorder, moderate, dependence F11.20 [facility] [address] 74834- 7118 Aug, [facility] [address] 22972- 5217 Jul, 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 and Opioid use disorder, moderate, dependence F11.20 [facility] [address] [place] [address] Jul, [facility] [address] 80121- 6613 Jul, [facility] [address] 46607- 1469 Jul, [facility] [address] 81790- 5885 Jul, Addiction to drug F19.20 and Chronic kidney disease, stage 3 N18.3 [facility] [address] [place] [address] Jul, Counseling on substance use and abuse Z71.89 [facility] [id number] [place] [address] 36993- 0130 Jul, Chronic kidney disease, stage 3 N18.3 [facility] [id number] [place] [address] 48109- 5009 Jul, 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 ; Diarrhea, unspecified type R19.7 and Essential hypertension I10 [facility] [id number] [place] [address] 97320- 2217 Jul, [facility] [address] [place] [address]- 8017 Jun, [facility] [id number] [place] [address] 55103- 5618 Jun, [facility] [id number] [place] [address] 47976- 0360 Apr, 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 [facility] [address] 30078- 2247 Apr, Sore throat and laryngitis J06.0 and Non-intractable vomiting with nausea, unspecified vomiting type R11.2 [facility] [address] 08909- 0559 Apr, [facility] [address] 96653- 8606 Mar, [facility] [address] 28000- 6051 Jan, [facility] [id number] [place] [address] 60067- 9050 Jan, [facility] [id number] [place] [address] 99586- 9551 Jan, [facility] [id number] [place] [address] 20016- 6054 December, 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 ; Gastroparesis K31.84 ; Mixed hyperlipidemia E78.2 ; Chronic kidney disease, stage 3 N18.3 ; Dysthymia F34.1 and Acute bilateral low back pain without sciatica M54.5 [facility] [id number] [place] [address] 59161- 6685 December, [facility] [id number] [place] [address] 98039- 0282 December, [facility] [id number] [place] [address] 18930- 5635 Aug, Depression F32.9 and Gastroparesis K31.84 [facility] [facility] [id number] [place] [address]- 1365 Aug, Gastroparesis K31.84 [facility] [address] [address]- 7833 Jul, Recurrent UTI N39.0 ; Chronic kidney disease, stage 3 N18.3 and 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 [facility] [address] [address]- 2438 Jul, [facility] [address] [id number] Jul, Dental examination Z01.20 and Dental caries K02.9 [facility] [address] [address]- 0688 17 Jul, 2015 [facility] [address] [address] Jul, Dysuria R30.0 ; Urinary tract infection N39.0 and Nausea R11.0 [facility] [address] [address]- 1380 Jun, Dysuria R30.0 [facility] [address] 28098- 9372 Jun, Dysuria R30.0 [facility] [address] 22848- 7920 Jun, Dysuria R30.0 [facility] [address] 91946- 9634 Jun, [facility] [address] 12[address]- 0612 14 Jun, 2015 Acute cystitis with hematuria N30.01 [facility] [id number] [place] [address] 31691- 5824 May, [facility] [place] [id number] [place] [address] 48984- 0948 Apr, Diabetes mellitus without mention of complication, type I [ juvenile type], not stated as uncontrolled 250.01 ; Gastroparesis due to DM 250.60 ; Contraception management V25.9 and Renal insufficiency 593.9 [id number] [place] [address] 87567- 1618 Apr, [id number] [place] [address] 51880- 1877 Apr, [id number] [place] [address] 00262- 1456 Mar, [id number] [place] [address] 11678- 5200 Mar, Hyperlipidemia 272.4 and Hypertensive heart and chronic kidney disease, benign, without heart failure and with chronic kidney disease stage I through stage IV, or unspecified 404.10 [id number] [place] [address] 49322- 3917 Mar, Hyperlipidemia 272.4 ; Hyponatremia 276.1 ; 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 ; Hypertensive heart and chronic kidney disease, benign, without heart failure and with chronic kidney disease stage I through stage IV, or unspecified 404.10 ; Proteinuria 791.0 and Chronic kidney disease (CKD), stage III (moderate) 585.3 [id number] [place] [address] 20810- 8434 Mar, [id number] [place] [address] 96941- 6252 Mar, Elevated blood sugar level 790.[address] [address]- 0739 Mar, Low grade squamous intraepithelial lesion (LGSIL) on cervical Pap smear 795.03 [id number] [place] [address] 65915- 3188 Mar, Amenorrhea 626.[address] [id number] [address] 15 Jan, 2015 Amenorrhea 626.0 ; Routine gynecological examination V72.31 and Screen for STD (sexually transmitted disease) V74.5 [facility] [address] [address] 11 Jan, 2015 Amenorrhea 626.0 [facility] [address] [address] 08 Jan, 2015 Routine gynecological examination V72.31 ; Screen for STD ( sexually transmitted disease) V74.5 ; Pap test, as part of routine gynecological examination V76.2 ; Breast cancer screening V76.10 and Amenorrhea 626.0 [facility] [address] [address] December, [facility] [address] [address]- 3146 Dec, [facility] [address] [address]- 6541 Dec, [facility] [address] [address]262 30 Oct, 2014 [facility] [address] 2990 Oct, [facility] [address] 6309 Oct, [facility] [address] [address]- 3202 Oct, [facility] [address] [address]- 8412 Oct, [facility] [address] [address]- 6677 Oct, [facility] [address] [id number] [address] 2548 Oct, [facility] [place] [facility] [address] [id number] [place] [address]- 8649 Oct, [facility] [place] [facility] [address] [id number] [place] [address]- 8973 Oct, [facility] [place] [facility] [address] [id number] [place] [address]- 1526 Oct, 2014 [facility] [place] [facility] [address] [id number] [place] [address]- 1465 Oct, [facility] [place] [facility] [address] [id number] [place] [address]- 4225 Sep, [facility] [place] [facility] [address] [id number] [place] [address]- 3737 19 Sep, 2014 [facility] [place] [facility] [address] [id number] [place] [address]- 5113 16 Sep, 2014 [facility] [place] [facility] [address] [id number] [place] [address]- 6898 16 Sep, 2014 [facility] [place] [facility] [address] [id number] [place] [address]- 7853 16 Sep, 2014 [facility] [place] [facility] [address] [id number] [place] [address]- 8137 16 Sep, 2014 [facility] [place] [facility] [address] [id number] [place] [address]- 2338 15 Sep, 2014 [facility] [place] [facility] [address] [id number] [place] [address]- 7810 15 Sep, 2014 [facility] [place] [facility] [address] [id number] [place] [address]- 6220 15 Sep, 2014 [facility] [place] [facility] [address] [id number] [place] [address]- 9842 15 Sep, 2014 [facility] [place] [facility] [address] [id number] [place] [address]- 7549 13 Sep, 2014 [facility] [place] [facility] [address] [id number] [place] [address]- 2271 Sep, [facility] [place] [facility] [address] [id number] [place] [address]- 4883 Sep, [facility] [place] [facility] [address] [id number] [place] [address]- 5180 Sep, [facility] [place] [facility] [address] [facility] [id number] [place] [address]- 5636 Sep, [facility] [place] [facility] [address] [id number] [place] [address]- 1310 Sep, [facility] [place] [facility] [address] [id number] [place] [address]- 6614 Sep, [facility] [place] [facility] [address] [id number] [place] [address]- 9249 Sep, [facility] [place] [facility] [address] [id number] [place] [address]- 0000 Sep, [facility] [place] [facility] [address] [id number], [place] [address]- 3204 Sep, [facility] [place] [facility] [address] [id number] [place] [address]- 3037 Aug, [facility] [place] [facility] [address] [id number] [place] [address]- 7874 Aug, [facility] [place] [facility] [address] [id number], [place] [address]- 3075 Aug, [facility] [place] [facility] [address] [id number], [place] [address]- 4724 Aug, [facility] [place] [facility] [address] [id number] [place] [address]- 0444 Aug, [facility] [place] [facility] [address] [id number], [place] [address]- 0706 Aug, [facility] [place] [facility] [address] [id number], [place] [address]- 3721 Aug, [facility] [place] [facility] [address] [id number] [place] [address]- 1135 Aug, [facility] [place] [facility] [address] [id number] [place] [address]- 0531 Aug, [facility] [place] [facility] [address] [id number] [place] [address]- 6981 Aug, [facility] [place] [facility] [address] [id number] [place] 0119 Aug, [facility] [place] [facility] [address] [id number] [place] [address]- 6660 Aug, [facility] [place] [facility] [address] [id number] [place] [address]- 2227 Jul, [facility] [place] [facility] [address] [id number] [place] [address]- 2987 Jul, [facility] [place] [facility] [address] [id number] [place] [address]- 6611 Jul, [facility] [place] [facility] [address] [id number] [place] [address]- 4453 Jul, [facility] [place] [facility] [address] [id number] [place] [address]- 6490 Jul, [facility] [place] [facility] [address] [facility] [id number] [place] [address]- 0131 Jul, [facility] [place] [facility] [address] [id number] [place] [address]- 4522 Jul, [facility] [place] [facility] [address] [id number] [place] [address]- 3800 Jul, [facility] [place] [facility] [address] [id number] [place] [address]- 9890 Jul, [facility] [place] [facility] [address] [id number] [place] [address]- 4510 Jul, [facility] [place] [facility] [address] [id number] [place] [address]- 4016 Jun, [facility] [place] [facility] [address] [id number] [place] [address]- 8077 31 Jun, 2013 [facility] [place] [facility] [address] [id number] [place] [address]- 2309 30 Jun, 2014 [facility] [place] [facility] [address] [id number] [place] [address]- 7321 30 Jun, 2014 [facility] [place] [facility] [address] [id number] [place] [address]- 7504 30 Jun, 2014 [facility] [place] [facility] [address] [id number] [place] [address]- 1952 30 Jun, 2014 [facility] [place] [facility] [address] [id number] [place] [address]- 8413 15 Jun, 2014 [facility] [place] [facility] [address] [id number] [place] [address]- 9999 15 Jun, 2014 [facility] [place] [facility] [address] [id number] [place] [address]- 1389 22 May, 2013 [facility] [place] [facility] [address] [id number] [place] [address]- 7657 22 May, 2013 [facility] [place] [facility] [address] [id number] [place] [address]- 8932 18 May, 2013 [facility] [place] [facility] [address] [id number] [place] [address]- 3907 18 Sep, 2013 [facility] [place] [facility] [address] [id number] [place] [address]- 3912 09 Sep, 2013 [facility] [place] [facility] [address] [id number] [place] [address]- 7114 08 Sep, 2013 [facility] [place] [facility] [address] [id number] [place] [address]- 3907 02 Sep, 2013 [facility] [place] [facility] [address] [id number] [place] [address]- 9646 02 Sep, 2013 [facility] [place] [facility] [address] [id number] [place] [address]- 6253 Apr, [facility] [place] [facility] [address] [id number] [place] [address]- 3035 Apr, [facility] [place] [facility] [address] [id number] [place] [address]- 4018 Apr, [facility] [place] [facility] [address] [id number] [place] [address]- 4359 Apr, [facility] [place] [facility] [address] [id number] [place] [address]- 4801 Mar, [facility] [place] [facility] [address] [id number] [place] [address]- 3681 Mar, [facility] [place] [facility] [address] [id number] [place] [address]- 1181 Mar, [facility] [place] [facility] [address] [id number] [place] [address]- 1441 Mar, [facility] [place] [facility] [address] [id number] [place] [address]- 9737 Mar, [facility] [place] [facility] [address] [id number] [place] [address]- 5674 Mar, [facility] [place] [facility] [address] [id number] [place] [address]- 4191 Jan, [facility] [place] [facility] [address] [id number] [place] [address]- 9873 Jan, [facility] [place] [facility] [address] [id number] [place] [address]- 2198 Jan, [facility] [place] [facility] [address] [id number] [place] [address]- 8705 Jan, [facility] [place] [facility] [address] [id number] [place] [address]- 1269 Jan, [facility] [place] [facility] [address] [id number] [place] [address]- 1824 Jan, [facility] [place] [facility] [address] [id number] [place] [address]- 0996 Jan, [facility] [place] [facility] [address] [id number] [place] [address]- 1274 Jan, [facility] [place] [facility] [address] [id number] [place] [address]- 5174 Jan, [facility] [place] [facility] [address] [id number] [place] [address]- 8080 Jan, [facility] [place] [facility] [address] [id number] [place] [address]- 8517 Jan, [facility] [place] [facility] [address] [id number] [place] [address]- 1614 Jan, [facility] [place] [facility] [address] [id number] [place] [address]- 2647 December, [facility] [place] [facility] [address] [id number] [place] [address]- 4121 December, [facility] [address] [id number] [place] [address]- 6316 December, [facility] [place] [facility] [address] [id number] [place] [address]- 2262 December, [facility] [place] [facility] [address] [id number] [place] [address]- 6327 Dec, [facility] [place] [facility] [address] [id number] [place] [address]- 9395 Dec, [facility] [place] [facility] [address] [id number] [place] [address]- 5795 Dec, [facility] [place] [facility] [address] [id number] [place] [address]- 7522 Dec, [facility] [place] [facility] [address] [id number] [place] [address]- 2345 Dec, [facility] [place] [facility] [address] [id number] [place] [address]- 0249 Dec, [facility] [place] [facility] [address] [id number] [place] [address]- 8698 Dec, [facility] [place] [facility] [address] [id number] [place] [address]- 4883 Dec, [facility] [place] [facility] [address] [id number] [place] [address]- 9387 Dec, [facility] [place] [facility] [address] [id number] [place] [address]- 0174 Dec, [facility] [place] [facility] [address] [id number] [place] [address]- 7215 Dec, [facility] [place] [facility] [address] [id number] [place] [address]- 8903 Dec, [facility] [place] [facility] [address] [id number] [place] [address]- 3828 Dec, [facility] [place] [facility] [address] [id number] [place] [address]- 8693 Dec, [facility] [place] [facility] [address] [id number] [place] [address]- 5885 Oct, [facility] [place] [facility] [address] [id number] [place] [address]- 0786 Oct, [facility] [place] [facility] [address] [id number] [place] [address]- 0006 Oct, [facility] [place] [facility] [address] [id number], [place] [address]- 6935 29 Oct, 2013 [facility] [place] [facility] [address] [id number] [place] [address]- 4191 Oct, [facility] [place] [facility] [address] [id number] [place] [address]- 2172 Oct, [facility] [place] [facility] [address] [id number] [place] [id number] Oct, [facility] [place] [facility] [address] [id number], [place] [address]- 2842 Oct, [facility] [address] [facility] [id number], [place] [address]- 2369 Oct, [facility] [address] [facility] [id number], [place] [address]- 6447 Oct, [facility] [address] [facility] [id number], [place] [address]- 8414 Sep, [facility] [address] [facility] [id number], [place] [address]- 7924 Sep, [facility] [address] [facility] [id number] [place] [address]- 6879 Sep, [facility] [address] [facility] [id number] [place] [address]- 1169 Sep, [facility] [address], [place] [address]- 8266 Sep, [facility] [address] [id number], [place] [address]- 1080 Sep, [facility] [address], [place] [address]- 4155 Aug, [facility] [address] [facility] [id number], [place] [address]- 9532 Aug, [facility] [address] [facility] [id number], [place] [address]- 1087 Jul, [facility] [address] [facility] [id number], [place] [address]- 7855 Jul, [facility] [address] [facility] [id number], [place] [address]- 2513 Jul, [facility] [address] [facility] [id number], [place] [address]- 0811 Jul, [facility] [address] [id number] [address]- 3967 Jul, IMMUNIZATIONS No Known Immunizations SOCIAL HISTORY Never Assessed REASON FOR VISIT Refill request PLAN OF CARE VITAL SIGNS MEDICATIONS Medication Instructions Dosage Frequency Start Date End Date Duration Status Dicyclomine HCl 10 mg Orally 2 times a day as needed 1 capsule 30 days Active Enalapril Maleate 10 mg Orally Once a day 1 tablet 24h 30 days Active RESULTS No Results PROCEDURES No [...]
--- OUTSIDE RECORDS SUMMARY | 2018-08-30 20:32 | XMS REPORT ---
Author Author NOEMY MORGAN Organization [facility] Address [address] 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 Active 81495506 Problem Chronic kidney disease, stage 3 N18.3 Active 254727937 Problem CHI I (cervical intraepithelial neoplasia I) N87.0 Active 638456871 Problem Mild episode of recurrent major depressive disorder F33.0 Active 048924156 Problem Addiction to drug F19.20 Active 109233539 Problem Essential hypertension I10 Active 00512511 Problem Opioid use disorder, severe, in sustained remission F11.21 Active 72244954 Problem Irritable bowel syndrome with constipation K58.1 Active 442988051 ALLERGIES No Information ENCOUNTERS Encounter Location Date Diagnosis [facility] [id number] [place] [address] 82192- 2207 May, [facility] [address] [place] [address] May, Opioid use disorder, severe, in sustained remission F11.21 [facility] [id number] [address] Apr, [facility] [id number] [place] [address] 92422- 7035 Apr, [facility] [id number] [place] [address] 59857- 5549 Apr, [facility] [id number] [place] [address] 19679- 4589 Apr, Opioid use disorder, severe, in early remission F11.21 [facility] [id number] [place] [address] 25710 -4929 Apr, Bacterial conjunctivitis of left eye H10.9 [facility] [id number] [place] [address] 55328- 7133 Apr, [facility] [address] 92148- 0281 Apr, [facility] [address] 73798- 1437 Mar, Essential hypertension I10 and Irritable bowel syndrome with constipation K58.1 [facility] [address] 26176- 2702 Mar, [facility] [address] 66051- 1815 Mar, Chronic kidney disease, stage 3 N18.3 ; 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 ; Opioid use disorder, severe, in sustained remission F11.21 and Mixed hyperlipidemia E78.2 [facility] [id number] [place] [address] 56864- 6235 Mar, Mixed hyperlipidemia E78.2 [facility] [id number] [place] [address] 05223- 0451 Mar, Opioid use disorder, severe, in early remission F11.21 [facility] [id number] [place] [address] 51768- 6131 Mar, [facility] [address] [place] [address] Mar, Opioid use disorder, severe, in sustained remission F11.21 [facility] [id number] [place] [address] 22945- 9891 Jan, Opioid use disorder, severe, in early remission F11.21 [facility] [address] [address] 0598 December, Opioid use disorder, severe, in early remission F11.21 [facility] [address] [place] [address] December, Opioid use disorder, severe, in sustained remission F11.21 [facility] [address] [address] 9878 December, Opioid use disorder, severe, in sustained remission F11.21 and 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 [facility] [id number] [place] [address] 08879- 4639 December, Opioid use disorder, severe, in early remission F11.21 [facility] [address] [place] [address] Dec, Opioid use disorder, severe, in sustained remission F11.21 [facility] [id number] [place] [address] 11860- 8175 Dec, 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 ; Unprotected sexual intercourse Z72.51 ; Pain of left thumb M79.645 ; Mixed hyperlipidemia E78.2 ; Gastroparesis K31.84 ; Essential hypertension I10 and Irritable bowel syndrome with constipation K58.1 [facility] [address] [address] 1883 Dec, Opioid use disorder, severe, in early remission F11.21 [facility] [id number] [place] [address] 06183- 5684 Oct, [facility] [id number] [place] [address] 80782- 8117 Oct, Opioid use disorder, severe, in early remission F11.21 [facility] [id number] [place] [address] 75183- 7494 Oct, [facility] [id number] [place] [address] 19507- 1883 Oct, Opioid use disorder, severe, in early remission F11.21 [facility] [address] [address] 6184 Oct, [facility] [id number] [place] [address] 04063- 5036 Oct, [facility] [address] [place] [address] Oct, Opioid use disorder, severe, in sustained remission F11.21 [facility] [id number] [place] [address] 12478- 2473 Sep, [facility] [id number] [place] [address] 60802- 8387 Sep, [facility] [id number] [place] [address] 54666- 3925 Sep, Opioid use disorder, severe, in early remission F11.21 [facility] [id number] [place] [address] 27216- 3710 Aug, Opioid use disorder, severe, in early remission F11.21 [facility] [id number] [place] [address] 72651- 7632 Jul, [facility] [id number] [place] [address] 71430- 0158 Jul, Chronic kidney disease, stage 3 N18.3 ; Dysthymia F34.1 and Opioid use disorder, severe, in sustained remission F11.21 [facility] [address] [place] [address] Jul, Opioid use disorder, severe, in sustained remission F11.21 [facility] [id number] [place] [address] 58996- 8132 Jul, Long-term use of high-risk medication Z79.899 and Chronic kidney disease, stage 3 N18.3 [facility] [id number] [place] [address] 40796- 2279 Jul, Opioid use disorder, severe, in early remission F11.21 [facility] [id number] [place] [address] 17218- 1820 Jul, [facility] [address] 66571- 1781 Jun, [facility] [address] 96604- 9787 Jun, [facility] [address] 47264- 8438 Jun, Opioid use disorder, moderate, dependence F11.20 and Opioid use disorder, severe, in early remission F11.21 [place] [address] 79076- 3228 Jun, [place] [address] 05250- 7734 Jun, Long-term use of high-risk medication Z79.899 [place] [address] 83419- 7787 Jun, CHI I (cervical intraepithelial neoplasia I) N87.[address] 86415- 0222 22 May, 2017 Opioid use disorder, severe, in early remission F11.21 [place] [id number] [place] [address] 74478- 4867 18 May, 2017 Chronic kidney disease, stage 3 N18.3 [place] [id number] [place] [address] 82651- 1301 14 May, 2017 Chronic kidney disease, stage 3 N18.3 [facility] [address] [place] [address] 05 May, 2017 Opioid use disorder, severe, in sustained remission F11.21 [facility] [id number] [place] [address] 47911- 3937 Apr, LGSIL on Pap smear of cervix R87.612 [facility] [address] [place] [address] Apr, [facility] [address] [address]- 8477 Apr, Opioid use disorder, severe, in early remission F11.21 [facility] [address] [address]- 2956 Apr, Opioid use disorder, severe, in early remission F11.21 [facility] [id number] [place] [address] 87161- 9301 Apr, Opioid use disorder, severe, in early remission F11.21 [facility] [id number] [place] [address] 35523- 5417 Apr, Opioid use disorder, severe, in early remission F11.21 [facility] [id number] [place] [address] 55160- 2545 14 Apr, 2017 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 [facility] [id number] [place] [address] 61187- 0635 Apr, Opioid use disorder, severe, in early remission F11.21 [facility] [address] [place] [address] Apr, Opioid use disorder, severe, in sustained remission F11.21 [facility] [id number] [place] [address] 23907- 1259 Apr, Opioid use disorder, severe, in early remission F11.21 [facility] [id number] [place] [address] 10339- 0324 Apr, Mild episode of recurrent major depressive disorder F33.0 and Right acute serous otitis media, recurrence not specified H65.01 [facility] [id number] [place] [address] 32959- 6525 Mar, [facility] [id number] [place] [address] 02702- 5464 Mar, Opioid use disorder, severe, in early remission F11.21 [facility] [id number] [address]- 7920 Mar, [facility] [address] [place] [address] Mar, Opioid use disorder, severe, in sustained remission F11.21 [facility] [address] [place] [address] Mar, Opioid use disorder, severe, in sustained remission F11.21 [facility] [id number] [place] [address] 47491- 6856 Mar, Opioid use disorder, severe, in early remission F11.21 [facility] [id number] [place] [address] 73355- 8912 Jan, Opioid use disorder, severe, in early remission F11.21 [facility] [address] [place] [address] Jan, Opioid use disorder, severe, in sustained remission F11.21 [facility] [address] [place] [address] Jan, Opioid use disorder, severe, in sustained remission F11.21 [facility] [id number] [place] [address] 57981- 8413 Jan, Opioid use disorder, severe, in early remission F11.21 [facility] [address] [place] [address] Jan, Opioid use disorder, severe, in sustained remission F11.21 [facility] [id number] [place] [address] 41824- 9216 December, Opioid use disorder, severe, 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 [facility] [address] [place] [address] December, Opioid use disorder, severe, in sustained remission F11.21 [facility] [id number] [place] [address] 02579- 1351 December, Routine gynecological examination Z01.419 and Chronic kidney disease, stage 3 N18.3 [facility] [address] [place] [id number] [place] [address] 71755- 0527 December, Chronic kidney disease, stage 3 N18.3 ; 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 ; Gastroparesis K31.84 ; Essential hypertension I10 and Irritable bowel syndrome with constipation K58.1 [facility] [address] [place] [address] December, Opioid use disorder, severe, in sustained remission F11.21 [facility] [address] [place] [id number] [place] [address] 35555- 8572 December, Opioid use disorder, severe, in early remission F11.21 [facility] [address] [place] [address] December, Opioid use disorder, severe, in sustained remission F11.[address] 90776- 4288 December, Encounter for therapeutic drug level monitoring Z51.81 [facility] [address] [place] [address] December, Opioid use disorder, severe, in sustained remission F11.21 [facility] [address] [place] [address] Dec, Opioid use disorder, severe, in sustained remission F11.21 [facility] [address] [place] [address] 28467- 3965 Dec, Opioid use disorder, severe, in early remission F11.21 [facility] [address] [place] [id number] [place] [address] 16371- 1961 Dec, [facility] [address] [place] [address] Dec, Opioid use disorder, severe, in sustained remission F11.21 [facility] [address] [place] [id number] [place] [address] 73901- 6542 Dec, Opioid use disorder, severe, in early remission F11.21 [facility] [address] [place] [address] Dec, Opioid use disorder, severe, in sustained remission F11.21 [facility] [address] [place] [address] 52070- 7593 Dec, 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 [facility] [id number] [place] [address] 75174- 9397 Dec, Opioid use disorder, severe, in sustained remission F11.21 ; Encounter for therapeutic drug level monitoring Z51.81 and Other care 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.899 [facility] [address] [place] [address] 31 Oct, 2016 Opioid use disorder, severe, in sustained remission F11.21 [facility] [id number] [place] [address] 76809- 8517 23 Oct, 2016 Opioid use disorder, severe, in early remission F11.21 [place] [address] 13186- 7376 15 Oct, 2016 [facility] [address] [place] [address] Oct, Opioid use disorder, severe, in sustained remission F11.21 [facility] [id number] [place] [address] 74010- 4081 15 Oct, 2016 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 [facility] [address] 58301- 7172 14 Oct, 2016 Routine gynecological examination Z01.419 [place] [id number] [place] [address] 55788- 6880 07 Oct, 2016 Opioid use disorder, severe, in early remission F11.21 [facility] [id number] [place] [address] 75225- 8200 06 Oct, 2016 Opioid use disorder, severe, in early remission F11.21 [facility] [address] 64854- 6989 06 Oct, 2016 Opioid use disorder, severe, in early remission F11.21 [facility] [address] [place] [address] 02 Oct, 2016 Opioid use disorder, severe, in sustained remission F11.21 [facility] [address] [place] [address]- 6457 24 Oct, 2016 Opioid use disorder, severe, in early remission F11.21 [facility] [id number] [place] [address] 24103- 8756 23 Oct, 2016 Opioid use disorder, severe, in early remission F11.21 [facility] [address] [place] [address] 22 Oct, 2016 Opioid use disorder, severe, in sustained remission F11.21 [facility] [id number] [place] [address] 70969- 5101 20 Oct, 2016 Opioid use disorder, severe, in sustained remission F11.21 ; Encounter for therapeutic drug level monitoring Z51.81 and Other terminal system operator ( 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 Z79.899 [facility] [id number] [place] [address] 27007- 5032 16 Oct, 2016 [facility] [address] [place] [address] 14 Oct, 2016 Opioid use disorder, severe, in early remission F11.21 [facility] [address] [place] [address] 10 Oct, 2016 Opioid use disorder, severe, in early remission F11.21 [facility] [id number] [place] [address] 72036- 2184 09 Oct, 2016 Opioid use disorder, severe, in early remission F11.21 [facility] [id number] [place] [address] 61779- 0373 08 Oct, 2016 [facility] [id number] [place] [address] 91343- 4425 07 Oct, 2016 [facility] [id number] [place] [address] 78014- 7670 Oct, [facility] [address] [place] [address] Oct, Opioid use disorder, severe, in early remission F11.21 [facility] [id number] [place] [address] 69521- 7544 Sep, Opioid use disorder, severe, in early remission F11.21 [facility] [address] [place] [address] Sep, Opioid use disorder, severe, in early remission F11.21 [facility] [id number] [place] [address] 04168- 4723 Sep, Opioid use disorder, severe, in early remission F11.21 ; Other terminal system operator (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 Z79.899 and Encounter for therapeutic drug level monitoring Z51.81 [facility] [id number] [place] [address] 27181- 6544 Sep, [facility] [id number] [place] [address] 90068- 6726 Sep, [facility] [id number] [place] [address] 27833- 6003 Sep, Opioid use disorder, severe, in early remission F11.21 ; 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 ; Chronic kidney disease, stage 3 N18.3 ; Essential hypertension I10 and Irritable bowel syndrome with constipation K58.1 [facility] [address] [place] [address] Sep, Opioid use disorder, severe, in early remission F11.21 [facility] [address] [place] [address] Sep, Opioid use disorder, severe, in early remission F11.21 [facility] [id number] [place] [address] 26150- 9991 Sep, Opioid use disorder, moderate, dependence F11.20 [facility] [id number] [place] [address] 47133- 8134 Sep, Opioid use disorder, moderate, dependence F11.20 [facility] [address] [place] [address] Sep, Opioid use disorder, severe, in early remission F11.21 [facility] [address] [place] [id number] [place] [address] 62876- 8639 Sep, Opioid use disorder, severe, in early remission F11.21 [facility] [address] [place] [address] Aug, Opioid use disorder, severe, 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 [facility] [id number] [place] [address] 02686- 0202 Aug, Opioid use disorder, moderate, dependence F11.20 [facility] [address] [address]99 [address] Aug, Bug bite without infection, initial encounter W57.XXXA [facility] [address] 08327- 8797 Aug, Opioid use disorder, moderate, dependence F11.20 [facility] [address] [place] [address] Aug, [facility] [id number] [place] [address] 43790- 0740 Aug, Opioid use disorder, severe, in early remission F11.21 ; Other care home (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 Z79.899 ; Encounter for therapeutic drug level monitoring Z51.81 and 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 [facility] [address] [place] [address] Aug, [facility] [id number] [place] [address] 34644- 1335 Aug, Opioid use disorder, moderate, dependence F11.20 ; Other care home (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 Z79.899 and Encounter for therapeutic drug level monitoring Z51.81 [facility] [id number] [place] [address] 20286- 7576 Aug, [facility] [address] 96927- 0612 Aug, Non-intractable vomiting with nausea, unspecified vomiting type R11.2 [facility] [id number] [place] [address] 64782- 9132 Aug, Opioid use disorder, moderate, dependence F11.20 and Non- intractable vomiting with nausea, unspecified vomiting type R11.2 [facility] [id number] [place] [address] 06316- 4267 Aug, [facility] [id number] [place] [address] Aug, Opioid use disorder, moderate, dependence F11.20 [facility] [address] 60832- 1459 Aug, [facility] [address] 69125- 5104 Jul, 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 and Opioid use disorder, moderate, dependence F11.20 [facility] [address] [place] [address] Jul, [facility] [address] 32293- 3859 Jul, [facility] [address] 19491- 2333 Jul, [facility] [address] 97594- 7532 Jul, Addiction to drug F19.20 and Chronic kidney disease, stage 3 N18.3 [facility] [address] [place] [address] Jul, Counseling on substance use and abuse Z71.89 [facility] [address] [id number] [place] [address] Jul, Chronic kidney disease, stage 3 N18.3 [facility] [id number] [place] [address] Jul, 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 ; Diarrhea, unspecified type R19.7 and Essential hypertension I10 [facility] [id number] [place] [address] Jul, [facility] [address] [place] [address] Jun, [facility] [id number] [place] [address] Jun, [facility] [id number] [place] [address] Apr, 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 [facility] [address] [address] Apr, Sore throat and laryngitis J06.0 and Non-intractable vomiting with nausea, unspecified vomiting type R11.2 [facility] [address] [address]67- 0347 Apr, [facility] [address] 89686- 5503 Mar, [facility] [address] 60937- 5148 Jan, [facility] [id number] [place] [address] 77104- 8133 Jan, [facility] [id number] [place] [address] 65974- 4242 Jan, [facility] [id number] [place] [address] 17645- 3691 December, 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 ; Gastroparesis K31.84 ; Mixed hyperlipidemia E78.2 ; Chronic kidney disease, stage 3 N18.3 ; Dysthymia F34.1 and Acute bilateral low back pain without sciatica M54.5 [facility] [id number] [place] [address] 89320- 5979 December, [facility] [id number] [place] [address] 42125- 2969 December, [facility] [id number] [place] [address] 30087- 7614 Aug, Depression F32.9 and Gastroparesis K31.84 [facility] [id number] [place] [address] 73310- 3548 Aug, Gastroparesis K31.84 [facility] [address] 37818- 9264 Jul, Recurrent UTI N39.0 ; Chronic kidney disease, stage 3 N18.3 and 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 [facility] [address] 82776- 4926 Jul, [facility] [address] [id number] Jul, Dental examination Z01.20 and Dental caries K02.9 [facility] [address] 01166- 7172 17 Jul, 2015 [facility] [address] [address]01 -6937 Jul, Dysuria R30.0 ; Urinary tract infection N39.0 and Nausea R11.0 [facility] [address] 71864- 7819 Jun, Dysuria R30.0 [facility] [address] 82276- 7291 Jun, Dysuria R30.0 [facility] [address] 63940- 4572 Jun, Dysuria R30.0 [facility] [address] 31327- 4378 Jun, [facility] [address] 35832- 9397 14 Jun, 2015 Acute cystitis with hematuria N30.01 [facility] [id number] [place] [address] 63942- 2487 May, [facility] [place] [id number] [place] [address] 99637- 6208 Apr, Diabetes mellitus without mention of complication, type I [ juvenile type], not stated as uncontrolled 250.01 ; Gastroparesis due to DM 250.60 ; Contraception management V25.9 and Renal insufficiency 593.9 [address] [id number] [place] [address] 06293- 9256 Apr, [address] [id number] [place] [address] 65387- 3832 Apr, [address] [id number] [place] [address] 04516- 5022 Mar, [address] [id number] [place] [address] 96907- 5330 Mar, Hyperlipidemia 272.4 and Hypertensive heart and chronic kidney disease, benign, without heart failure and with chronic kidney disease stage I through stage IV, or unspecified 404.10 [address] [id number] [place] [address] 92169- 3044 Mar, Hyperlipidemia 272.4 ; Hyponatremia 276.1 ; 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 ; Hypertensive heart and chronic kidney disease, benign, without heart failure and with chronic kidney disease stage I through stage IV, or unspecified 404.10 ; Proteinuria 791.0 and Chronic kidney disease (CKD), stage III (moderate) 585.3 [address] [place] [id number] [place] [address] 49683- 2308 Mar, [address] [id number] [place] [address] 16145- 9054 Mar, Elevated blood sugar level 790.[address] 42733- 0336 Mar, Low grade squamous intraepithelial lesion (LGSIL) on cervical Pap smear 795.03 [address] [id number] [place] [address] 08346- 1541 Mar, Amenorrhea 626.[address] [id number] [address] 15 Jan, 2015 Amenorrhea 626.0 ; Routine gynecological examination V72.31 and Screen for STD (sexually transmitted disease) V74.5 [facility] [address] [address] 11 Jan, 2015 Amenorrhea 626.0 [facility] [address]65[address] 1533 08 Jan, 2015 Routine gynecological examination V72.31 ; Screen for STD ( sexually transmitted disease) V74.5 ; Pap test, as part of routine gynecological examination V76.2 ; Breast cancer screening V76.10 and Amenorrhea 626.0 [facility] [address]65[address] 1402 December, [facility] [address]65[address] [address]- 7554 Dec, [facility] [address]65[address] [address]- 1664 Dec, [facility] [address] 3222 30 Oct, 2014 [facility] [address]65[address] 8705 Oct, [facility] [address] 4384 Oct, [facility] [address]65[address] [address]- 4506 Oct, [facility] [address]65[address] [address]- 0195 Oct, [facility] [address] [address]- 9289 Oct, [facility] [address] [id number] [address] 254 Oct, [facility] [place] [facility] [address] [id number] [place] [address]- 6454 Oct, [facility] [place] [facility] [address] [id number] [place] [address]- 2441 Oct, [facility] [place] [facility] [address] [id number] [place] [address]- 9516 Oct, 2014 [facility] [place] [facility] [address] [id number] [place] [address]- 1131 Oct, [facility] [place] [facility] [address] [id number] [place] [address]- 5123 Sep, [facility] [place] [facility] [address] [id number] [place] [address]- 1526 19 Sep, 2014 [facility] [place] [facility] [address] [id number] [place] [address]- 4297 16 Sep, 2014 [facility] [place] [facility] [address] [id number] [place] [address]- 1631 16 Sep, 2014 [facility] [place] [facility] [address] [id number] [place] [address]- 0562 16 Sep, 2014 [facility] [place] [facility] [address] [id number] [place] [address]- 7888 16 Sep, 2014 [facility] [place] [facility] [address] [id number] [place] [address]- 6503 15 Sep, 2014 [facility] [place] [facility] [address] [id number] [place] [address]- 3071 15 Sep, 2014 [facility] [place] [facility] [address] [id number] [place] [address]- 1000 15 Sep, 2014 [facility] [place] [facility] [address] [id number] [place] [address]- 9981 15 Sep, 2014 [facility] [place] [facility] [address] [id number] [place] [address]- 2038 13 Sep, 2014 [facility] [place] [facility] [address] [id number] [place] [address]- 9328 Sep, [facility] [place] [facility] [address] [id number] [place] [address]- 9453 Sep, [facility] [place] [facility] [address] [id number] [place] [address]- 8280 Sep, [facility] [place] [facility] [address] [facility] [id number] [place] [address]- 6349 Sep, [facility] [place] [facility] [address] [id number] [place] [address]- 9562 Sep, [facility] [place] [facility] [address] [id number] [place] [address]- 5034 Sep, [facility] [place] [facility] [address] [id number] [place] [address]- 6152 Sep, [facility] [place] [facility] [address] [id number] [place] [address]- 5387 Sep, [facility] [place] [facility] [address] [id number] [address]- 6065 Sep, [facility] [place] [facility] [address] [id number] [place] [address]- 1602 Aug, [facility] [place] [facility] [address] [id number] [place] [address]- 3555 Aug, [facility] [place] [facility] [address] [id number] [address]- 0342 Aug, [facility] [place] [facility] [address] [id number] [place] [address]- 7514 Aug, [facility] [place] [facility] [address] [id number] [place] [address]- 8066 Aug, [facility] [place] [facility] [address] [id number] [place] [address]- 5109 Aug, [facility] [place] [facility] [address] [id number] [place] [address]- 3757 Aug, [facility] [place] [facility] [address] [id number] [place] [address]- 5973 Aug, [facility] [place] [facility] [address] [id number] [place] [address]- 3598 Aug, [facility] [place] [facility] [address] [id number] [place] [address]- 9333 Aug, [facility] [place] [facility] [address] [id number] [place] 8077 Aug, [facility] [place] [facility] [address] [id number] [place] [address]- 5563 Aug, [facility] [place] [facility] [address] [id number] [place] [address]- 6410 Jul, [facility] [place] [facility] [address] [id number] [place] [address]- 4296 Jul, [facility] [place] [facility] [address] [id number] [place] [address]- 9119 Jul, [facility] [place] [facility] [address] [id number] [place] [address]- 9451 Jul, [facility] [place] [facility] [address] [id number] [place] [address]- 0636 Jul, [facility] [place] [facility] [address] [facility] [id number] [place] [address]- 8669 Jul, [facility] [place] [facility] [address] [id number] [place] [address]- 6691 Jul, [facility] [place] [facility] [address] [id number] [place] [address]- 4704 Jul, [facility] [place] [facility] [address] [id number] [place] [address]- 3173 Jul, [facility] [place] [facility] [address] [id number] [place] [address]- 4279 Jul, [facility] [place] [facility] [address] [id number] [place] [address]- 6087 Jun, [facility] [place] [facility] [address] [id number] [place] [address]- 3470 31 Jun, 2013 [facility] [place] [facility] [address] [id number] [place] [address]- 2441 30 Jun, 2014 [facility] [place] [facility] [address] [id number] [place] [address]- 1880 30 Jun, 2014 [facility] [place] [facility] [address] [id number] [place] [address]- 8104 30 Jun, 2014 [facility] [place] [facility] [address] [id number] [place] [address]- 3007 30 Jun, 2014 [facility] [place] [facility] [address] [id number] [place] [address]- 3394 15 Jun, 2014 [facility] [place] [facility] [address] [id number] [place] [address]- 6745 15 Jun, 2014 [facility] [place] [facility] [address] [id number] [place] [address]- 8958 22 May, 2013 [facility] [place] [facility] [address] [id number] [place] [address]- 7491 22 May, 2013 [facility] [place] [facility] [address] [id number] [place] [address]- 8945 18 May, 2013 [facility] [place] [facility] [address] [id number] [place] [address]- 7546 18 Sep, 2013 [facility] [place] [facility] [address] [id number] [place] [address]- 7251 09 Sep, 2013 [facility] [place] [facility] [address] [id number] [place] [address]- 5204 08 Sep, 2013 [facility] [place] [facility] [address] [id number] [place] [address]- 9800 02 Sep, 2013 [facility] [place] [facility] [address] [id number] [place] [address]- 9833 02 Sep, 2013 [facility] [place] [facility] [address] [id number] [place] [address]- 2248 Apr, [facility] [place] [facility] [address] [id number] [place] [address]- 4747 Apr, [facility] [place] [facility] [address] [id number] [place] [address]- 1834 Apr, [facility] [place] [facility] [address] [id number] [place] [address]- 1319 Apr, [facility] [place] [facility] [address] [id number] [place] [address]- 0879 Mar, [facility] [place] [facility] [address] [id number] [place] [address]- 8505 Mar, [facility] [place] [facility] [address] [id number] [place] [address]- 6033 Mar, [facility] [place] [facility] [address] [id number] [place] [address]- 9092 Mar, [facility] [place] [facility] [address] [id number] [place] [address]- 0689 Mar, [facility] [place] [facility] [address] [id number] [place] [address]- 8362 Mar, [facility] [place] [facility] [address] [id number] [place] [address]- 9564 Jan, [facility] [place] [facility] [address] [id number] [place] [address]- 0215 Jan, [facility] [place] [facility] [address] [id number] [place] [address]- 6719 Jan, [facility] [place] [facility] [address] [id number] [place] [address]- 6308 Jan, [facility] [place] [facility] [address] [id number] [place] [address]- 0429 Jan, [facility] [place] [facility] [address] [id number] [place] [address]- 8467 Jan, [facility] [place] [facility] [address] [id number] [place] [address]- 6620 Jan, [facility] [place] [facility] [address] [id number] [place] [address]- 3631 Jan, [facility] [place] [facility] [address] [id number] [place] [address]- 7844 Jan, [facility] [place] [facility] [address] [id number] [place] [address]- 2248 Jan, [facility] [place] [facility] [address] [id number] [place] [address]- 7400 Jan, [facility] [place] [facility] [address] [id number] [place] [address]- 0000 Jan, [facility] [place] [facility] [address] [id number] [place] [address]- 5684 December, [facility] [place] [facility] [address] [id number] [place] [address]- 1210 December, [facility] [address] [id number] [place] [address]- 5774 December, [facility] [place] [facility] [address] [id number] [place] [address]- 2645 December, [facility] [place] [facility] [address] [id number] [place] [address]- 5066 Dec, [facility] [place] [facility] [address] [id number] [place] [address]- 7574 Dec, [facility] [place] [facility] [address] [id number] [place] [address]- 2492 Dec, [facility] [place] [facility] [address] [id number] [place] [address]- 3872 Dec, [facility] [place] [facility] [address] [id number] [place] [address]- 0297 Dec, [facility] [place] [facility] [address] [id number] [place] [address]- 9508 Dec, [facility] [place] [facility] [address] [id number] [place] [address]- 6438 Dec, [facility] [place] [facility] [address] [id number] [place] [address]- 4538 Dec, [facility] [place] [facility] [address] [id number] [place] [address]- 2310 Dec, [facility] [place] [facility] [address] [id number] [place] [address]- 8478 Dec, [facility] [place] [facility] [address] [id number] [place] [address]- 0879 Dec, [facility] [place] [facility] [address] [id number] [place] [address]- 8881 Dec, [facility] [place] [facility] [address] [id number] [place] [address]- 2295 Dec, [facility] [place] [facility] [address] [id number] [place] [address]- 1187 Dec, [facility] [place] [facility] [address] [id number] [place] [address]- 8150 Oct, [facility] [place] [facility] [address] [id number] [place] [address]- 7891 Oct, [facility] [place] [facility] [address] [id number] [place] [address]- 8238 Oct, [facility] [place] [facility] [address] [id number] [address]- 7563 29 Oct, 2013 [facility] [place] [facility] [address] [id number] [place] [address]- 4789 Oct, [facility] [place] [facility] [address] [id number] [place] [address]- 6321 Oct, [facility] [place] [facility] [address] [id number] [place] [id number] Oct, [facility] [place] [facility] [address] [id number] [place] [address]- 0149 Oct, [facility] [address] [facility] [id number] [place] [address]- 3253 Oct, [facility] [address] [facility] [id number] [place] [address]- 9886 Oct, [facility] [address] [facility] [id number] [place] [address]- 4505 Sep, [facility] [address] [facility] [id number] [place] [address]- 3174 Sep, [facility] [address] [facility] [id number] [place] [address]- 2393 Sep, [facility] [address] [facility] [id number] [place] [address]- 0912 Sep, [facility] [address]65[address] [address]- 1855 Sep, [facility] [address] [id number] [address]- 7133 Sep, [facility] [address]65[address] [address]- 8122 Aug, [facility] [address] [facility] [id number] [place] [address]- 9009 Aug, [facility] [address] [facility] [id number] [place] [address]- 1191 Jul, [facility] [address] [facility] [id number] [place] [address]- 3525 Jul, [facility] [address] [facility] [id number] [place] [address]- 7023 Jul, [facility] [address] [facility] [id number] [place] [address]- 7382 Jul, [facility] [address] [id number] [address]- 5775 Jul, IMMUNIZATIONS No Known Immunizations SOCIAL HISTORY Never Assessed REASON FOR VISIT pt contact via email PLAN OF CARE VITAL SIGNS MEDICATIONS Unknown [...]
--- OUTSIDE RECORDS SUMMARY | 2018-08-30 20:33 | XMS REPORT ---
Author Author NOEMY MORGAN Organization [facility] Address [address] 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 Active 08838181 Problem Chronic kidney disease, stage 3 N18.3 Active 265565776 Problem CHI I (cervical intraepithelial neoplasia I) N87.0 Active 261514789 Problem Mild episode of recurrent major depressive disorder F33.0 Active 636370708 Problem Addiction to drug F19.20 Active 250882130 Problem Essential hypertension I10 Active 70989390 Problem Opioid use disorder, severe, in sustained remission F11.21 Active 20571709 Problem Irritable bowel syndrome with constipation K58.1 Active 442469743 ALLERGIES No Information ENCOUNTERS Encounter Location Date Diagnosis [facility] [id number] [place] [address] 43507- 6194 May, [facility] [address] [place] [address] May, [facility] [id number] [place] [address] 40138- 7598 Apr, [facility] [id number] [place] [address] 13626- 1061 Apr, [facility] [id number] [place] [address] 87902- 4126 Apr, [facility] [id number] [place] [address] 18061- 9126 Apr, Opioid use disorder, severe, in early remission F11.21 [facility] [id number] [place] [address] 39447 -7675 Apr, Bacterial conjunctivitis of left eye H10.9 [facility] [address] [place] [address] 09717- 0962 Apr, [facility] [id number] [place] [address] 28346- 3234 Apr, [facility] [id number] [place] [address] 60789- 0409 Mar, Essential hypertension I10 and Irritable bowel syndrome with constipation K58.1 [facility] [id number] [place] [address] 30530- 4676 Mar, [facility] [id number] [place] [address] 50161- 5197 Mar, Chronic kidney disease, stage 3 N18.3 ; 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 ; Opioid use disorder, severe, in sustained remission F11.21 and Mixed hyperlipidemia E78.2 [facility] [id number] [place] [address] 84178- 4785 Mar, Mixed hyperlipidemia E78.2 [facility] [id number] [place] [address] 53135- 5411 Mar, Opioid use disorder, severe, in early remission F11.21 [facility] [address] [place] [address] 08587- 3992 Mar, [facility] [address] [place] [address] Mar, Opioid use disorder, severe, in sustained remission F11.21 [facility] [id number] [place] [address] 50641- 6594 Jan, Opioid use disorder, severe, in early remission F11.21 [facility] [id number] [place] [address] 35018- 2981 December, Opioid use disorder, severe, in early remission F11.21 [facility] [address] [place] [address] December, Opioid use disorder, severe, in sustained remission F11.21 [facility] [id number] [place] [address] 68377- 7609 December, Opioid use disorder, severe, in sustained remission F11.21 and 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 [facility] [id number] [place] [address] 05754- 2924 December, Opioid use disorder, severe, in early remission F11.21 [facility] [address] [place] [address] Dec, Opioid use disorder, severe, in sustained remission F11.21 [facility] [id number] [place] [address] 47899- 3175 Dec, 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 ; Unprotected sexual intercourse Z72.51 ; Pain of left thumb M79.645 ; Mixed hyperlipidemia E78.2 ; Gastroparesis K31.84 ; Essential hypertension I10 and Irritable bowel syndrome with constipation K58.1 [facility] [id number] [place] [address] 44537- 3957 Dec, Opioid use disorder, severe, in early remission F11.21 [facility] [id number] [place] [address] 31657- 6677 Oct, [facility] [id number] [place] [address] 55837- 2304 Oct, Opioid use disorder, severe, in early remission F11.21 [facility] [id number] [place] [address] 47838- 3398 Oct, [facility] [id number] [place] [address] 81196- 1510 Oct, Opioid use disorder, severe, in early remission F11.21 [facility] [address] [address] 6715 Oct, [facility] [id number] [place] [address] 17894- 3107 Oct, [facility] [address] [place] [address] Oct, Opioid use disorder, severe, in sustained remission F11.21 [facility] [id number] [place] [address] 73625- 2945 Sep, [facility] [id number] [place] [address] 44245- 6947 Sep, [facility] [id number] [place] [address] 63762- 1232 Sep, Opioid use disorder, severe, in early remission F11.21 [facility] [id number] [place] [address] 41968- 6903 Aug, Opioid use disorder, severe, 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 [facility] [address] [place] [address] 01388- 5111 Jul, [facility] [id number] [place] [address] 69586- 6348 Jul, Chronic kidney disease, stage 3 N18.3 ; Dysthymia F34.1 and Opioid use disorder, severe, in sustained remission F11.21 [facility] [address] [place] [address] Jul, Opioid use disorder, severe, in sustained remission F11.21 [facility] [address] [address] 1267 Jul, Long-term use of high-risk medication Z79.899 and Chronic kidney disease, stage 3 N18.3 [facility] [address] [address] 9318 Jul, Opioid use disorder, severe, in early remission F11.21 [facility] [id number] [place] [address] 40638- 8998 Jul, [facility] [id number] [place] [address] 81000- 0663 Jun, [facility] [id number] [place] [address] 89705- 9883 Jun, [facility] [id number] [place] [address] 38906- 0508 Jun, Opioid use disorder, moderate, dependence F11.20 and Opioid use disorder, severe, 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 [facility] [id number] [place] [address] 96274- 6864 Jun, [facility] [address] 72985- 4262 Jun, Long-term use of high-risk medication Z79.899 [facility] [id number] [place] [address] 11001- 5673 Jun, CHI I (cervical intraepithelial neoplasia I) N87.0 [facility] [id number] [place] [address] 97735- 4811 22 May, 2017 Opioid use disorder, severe, 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 [facility] [id number] [place] [address] 32041- 4079 18 May, 2017 Chronic kidney disease, stage 3 N18.3 [facility] [id number] [place] [address] 85172- 5250 14 May, 2017 Chronic kidney disease, stage 3 N18.3 [facility] [address] [place] [address] 05 May, 2017 Opioid use disorder, severe, in sustained remission F11.21 [facility] [id number] [place] [address] 28352- 3477 Apr, LGSIL on Pap smear of cervix R87.612 [facility] [address] [place] [address] Apr, [facility] [address] [place] [address] 32630- 3673 Apr, Opioid use disorder, severe, in early remission F11.21 [facility] [id number] [place] [address] 51755- 2884 Apr, Opioid use disorder, severe, in early remission F11.21 [facility] [id number] [place] [address] 09410- 9981 Apr, Opioid use disorder, severe, in early remission F11.21 [facility] [id number] [place] [address] 76031- 3892 18 Apr, 2017 Opioid use disorder, severe, in early remission F11.21 [facility] [id number] [place] [address] 05588- 8798 14 Apr, 2017 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 [facility] [id number] [place] [address] 63637- 2909 Apr, Opioid use disorder, severe, in early remission F11.21 [facility] [address] [place] [address] Apr, Opioid use disorder, severe, in sustained remission F11.21 [facility] [id number] [place] [address] 81574- 0452 09 Apr, 2017 Opioid use disorder, severe, in early remission F11.21 [facility] [id number] [place] [address] 11005- 1581 Apr, Mild episode of recurrent major depressive disorder F33.0 and Right acute serous otitis media, recurrence not specified H65.01 [facility] [id number] [place] [address] 42143- 5943 Mar, [facility] [id number] [place] [address] 25829- 6561 Mar, Opioid use disorder, severe, in early remission F11.21 [facility] [id number] [place] [address] 81735- 4759 Mar, [facility] [address] [place] [address] Mar, Opioid use disorder, severe, in sustained remission F11.21 [facility] [address] [place] [address] Mar, Opioid use disorder, severe, in sustained remission F11.21 [facility] [address] [address]- 4456 Mar, Opioid use disorder, severe, in early remission F11.21 [facility] [id number] [place] [address] 74187- 1576 Jan, Opioid use disorder, severe, in early remission F11.21 [facility] [address] [place] [address] Jan, Opioid use disorder, severe, in sustained remission F11.21 [facility] [address] [place] [address] Jan, Opioid use disorder, severe, in sustained remission F11.21 [facility] [id number] [place] [address] 12069- 5341 Jan, Opioid use disorder, severe, in early remission F11.21 [facility] [address] [place] [address] Jan, Opioid use disorder, severe, in sustained remission F11.21 [facility] [address] [place] [address] [address] 1365 December, Opioid use disorder, severe, 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 [facility] [address] [place] [address] December, Opioid use disorder, severe, in sustained remission F11.21 [place] [id number] [place] [address] 98254- 5104 December, Routine gynecological examination Z01.419 and Chronic kidney disease, stage 3 N18.3 [facility] [address] [place] [address] [address] December, Chronic kidney disease, stage 3 N18.3 ; 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 ; Gastroparesis K31.84 ; Essential hypertension I10 and Irritable bowel syndrome with constipation K58.1 [facility] [address] [place] [address] December, Opioid use disorder, severe, in sustained remission F11.21 [facility] [id number] [place] [address] 40622- 7135 December, Opioid use disorder, severe, in early remission F11.21 [facility] [address] [place] [address] December, Opioid use disorder, severe, in sustained remission F11.21 [facility] [address] 99939- 7622 December, Encounter for therapeutic drug level monitoring Z51.81 [facility] [address] [place] [address] December, Opioid use disorder, severe, in sustained remission F11.21 [facility] [address] [place] [address] Dec, Opioid use disorder, severe, in sustained remission F11.21 [facility] [id number] [place] [address] 95538- 4510 Dec, Opioid use disorder, severe, in early remission F11.21 [facility] [id number] [place] [address] 48319- 3077 Dec, [facility] [address] [place] [address] Dec, Opioid use disorder, severe, in sustained remission F11.21 [facility] [id number] [place] [address] 67254- 6364 Dec, Opioid use disorder, severe, in early remission F11.21 [facility] [address] [place] [address] Dec, Opioid use disorder, severe, in sustained remission F11.21 [facility] [id number] [place] [address] 41490- 3003 Dec, 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 [facility] [id number] [place] [address] 14704- 8121 03 Dec, 2016 Opioid use disorder, severe, in sustained remission F11.21 ; Encounter for therapeutic drug level monitoring Z51.81 and Other oil heaterman ( 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 Z79.899 [facility] [address] [place] [address] 31 Oct, 2016 Opioid use disorder, severe, in sustained remission F11.21 [facility] [id number] [place] [address] 67634- 2137 23 Oct, 2016 Opioid use disorder, severe, in early remission F11.21 [facility] [address] 80979- 7718 15 Oct, 2016 [facility] [address] [place] [address] 15 Oct, 2016 Opioid use disorder, severe, in sustained remission F11.21 [facility] [place] [id number] [place] [address] 77737- 6462 15 Oct, 2016 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 [facility] [id number] [place] [address] 64649- 8238 14 Oct, 2016 Routine gynecological examination Z01.419 [facility] [facility] [id number] [place] [address] 31216- 1423 07 Oct, 2016 Opioid use disorder, severe, in early remission F11.21 [facility] [id number] [place] [address] 17406- 6450 06 Oct, 2016 Opioid use disorder, severe, in early remission F11.21 [facility] [id number] [place] [address] 86493- 1839 06 Oct, 2016 Opioid use disorder, severe, in early remission F11.21 [facility] [address] [place] [address] 02 Oct, 2016 Opioid use disorder, severe, in sustained remission F11.21 [facility] [id number] [place] [address] 89610- 0863 Oct, Opioid use disorder, severe, in early remission F11.21 [facility] [id number] [place] [address] 34012- 8692 23 Oct, 2016 Opioid use disorder, severe, in early remission F11.21 [facility] [address] [place] [address] Oct, Opioid use disorder, severe, in sustained remission F11.21 [facility] [id number] [place] [address] 67051- 8853 20 Oct, 2016 Opioid use disorder, severe, in sustained remission F11.21 ; Encounter for therapeutic drug level monitoring Z51.81 and Other oil heaterman ( 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 Z79.899 [facility] [id number] [place] [address] 32518- 3113 16 Oct, 2016 [facility] [address] [place] [address] 14 Oct, 2016 Opioid use disorder, severe, in early remission F11.21 [facility] [address] [place] [address] 10 Oct, 2016 Opioid use disorder, severe, in early remission F11.21 [facility] [id number] [place] [address] 06674- 7189 09 Oct, 2016 Opioid use disorder, severe, in early remission F11.21 [facility] [id number] [place] [address] 01866- 1915 08 Oct, 2016 [facility] [id number] [place] [address] 67864- 4288 07 Oct, 2016 [facility] [id number] [place] [address] 10982- 3602 Oct, [facility] [address] [place] [address] Oct, Opioid use disorder, severe, in early remission F11.21 [facility] [id number] [place] [address] 90862- 3308 25 Kash, 2017 Opioid use disorder, severe, in early remission F11.21 [facility] [address] [place] [address] Sep, Opioid use disorder, severe, in early remission F11.21 [facility] [id number] [place] [address] 14353- 8421 Sep, Opioid use disorder, severe, in early remission F11.21 ; Other oil heaterman (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 Z79.899 and Encounter for therapeutic drug level monitoring Z51.81 [facility] [id number] [place] [address] 43514- 4392 Sep, [facility] [id number] [place] [address] 03868- 7239 Sep, [facility] [id number] [place] [address] 89810- 4860 Sep, Opioid use disorder, severe, 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 ; 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 ; Chronic kidney disease, stage 3 N18.3 ; Essential hypertension I10 and Irritable bowel syndrome with constipation K58.1 [facility] [address] [place] [address] Sep, Opioid use disorder, severe, in early remission F11.21 [facility] [address] [place] [address] Sep, Opioid use disorder, severe, in early remission F11.21 [facility] [id number] [place] [address] 65779- 3178 Sep, Opioid use disorder, moderate, dependence F11.20 [facility] [id number] [place] [address] 02181- 3650 05 Sep, 2016 Opioid use disorder, moderate, dependence F11.20 [facility] [address] [place] [address] 05 Sep, 2016 Opioid use disorder, severe, in early remission F11.21 [facility] [id number] [place] [address] 59094- 0727 Sep, Opioid use disorder, severe, in early remission F11.21 [facility] [address] [place] [address] Aug, Opioid use disorder, severe, in early remission F11.21 [facility] [id number] [place] [address] 88223- 122 Aug, Opioid use disorder, moderate, dependence F11.20 [facility] [id number] [place] [address] 28295 -5220 Aug, Bug bite without infection, initial encounter W57.XXXA [facility] [id number] [place] [address] 96359- 4848 Aug, Opioid use disorder, moderate, dependence F11.20 [facility] [address] [place] [address] Aug, [facility] [id number] [place] [address] 50251- 4412 Aug, Opioid use disorder, severe, in early remission F11.21 ; Other correction (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 Z79.899 ; Encounter for therapeutic drug level monitoring Z51.81 and 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 [facility] [address] [place] [address] Aug, [facility] [id number] [place] [address] 39787- 4058 Aug, Opioid use disorder, moderate, dependence F11.20 ; Other oil heaterman (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 Z79.899 and Encounter for therapeutic drug level monitoring Z51.81 [facility] [id number] [place] [address] 61535- 9228 Aug, [facility] [id number] [place] [address] 30579- 2600 Aug, Non-intractable vomiting with nausea, unspecified vomiting type R11.2 [facility] [place] [id number] [place] [address] 88160- 8814 Aug, Opioid use disorder, moderate, dependence F11.20 and Non- intractable vomiting with nausea, unspecified vomiting type R11.2 [facility] [id number] [place] [address] 86767- 6835 08 Aug, 2016 [facility] [id number] [place] [address] 70312- 2208 Aug, Opioid use disorder, moderate, dependence F11.20 [facility] [address] 75267- 6433 Aug, [facility] [address] 70973- 4920 Jul, 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 and Opioid use disorder, moderate, dependence F11.20 [facility] [address] [place] [address] Jul, [facility] [address] 73042- 6215 Jul, [facility] [address] [place] [address] 07045- 2958 Jul, [facility] [address] 71819- 3946 Jul, Addiction to drug F19.20 and Chronic kidney disease, stage 3 N18.3 [facility] [address] [place] [address] Jul, Counseling on substance use and abuse Z71.89 [facility] [address] [place] [id number] [place] [address] 68133- 7390 Jul, Chronic kidney disease, stage 3 N18.3 [facility] [id number] [place] [address] 65215- 4492 Jul, 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 ; Diarrhea, unspecified type R19.7 and Essential hypertension I10 [facility] [id number] [place] [address]- 9576 Jul, [facility] [address] [address] Jun, [facility] [id number] [address] Jun, [facility] [id number] [place] [address]- 8560 Apr, 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 [facility] [id number] [place] [address]- 3040 Apr, Sore throat and laryngitis J06.0 and Non-intractable vomiting with nausea, unspecified vomiting type R11.2 [facility] [address] [id number] [address] Apr, [facility] [id number] [place] [address] [phone]- [phone] Mar, [facility] [id number] [place] [address] 36499- 6148 Jan, [facility] [id number] [place] [address] 10816- 6488 Jan, [facility] [id number] [place] [address] 49971- 5222 Jan, [facility] [id number] [place] [address] 73996- 6268 December, 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 ; Gastroparesis K31.84 ; Mixed hyperlipidemia E78.2 ; Chronic kidney disease, stage 3 N18.3 ; Dysthymia F34.1 and Acute bilateral low back pain without sciatica M54.5 [facility] [address] [address] 0987 December, [facility] [id number] [place] [address] 03803- 8947 December, [facility] [address] [place] [address] 86849- 1303 Aug, Depression F32.9 and Gastroparesis K31.84 [facility] [id number] [place] [address] 31547- 2100 15 Aug, 2015 Gastroparesis K31.84 [facility] [address] [address]- 4344 Jul, Recurrent UTI N39.0 ; Chronic kidney disease, stage 3 N18.3 and 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 [address] [address]776 Jul, Dysuria R30.0 ; Urinary tract infection N39.0 and Nausea R11.0 [facility] [address] 41834- 7999 Jun, Dysuria R30.0 [facility] [address] 76339- 1843 Jun, Dysuria R30.0 [place] [address] 38591- 6328 Jun, Dysuria R30.0 [facility] [address] 49881- 1369 Jun, [facility] [address] 87205- 2601 14 Jun, 2015 Acute cystitis with hematuria N30.01 [facility] [address] 46791- 4004 May, [facility] [address] 91274- 6263 Apr, Diabetes mellitus without mention of complication, type I [ juvenile type], not stated as uncontrolled 250.01 ; Gastroparesis due to DM 250.60 ; Contraception management V25.9 and Renal insufficiency 593.9 [place] [address] [place] [address] 77222- 9825 Apr, [place] [id number] [place] [address] 37168- 0651 Apr, [place] [id number] [place] [address] 60328- 0088 Mar, [address] [address]18- 4281 Mar, Hyperlipidemia 272.4 and Hypertensive heart and chronic kidney disease, benign, without heart failure and with chronic kidney disease stage I through stage IV, or unspecified [address].10 [id number] [place] [address] 09302- 9181 Mar, Hyperlipidemia 272.4 ; Hyponatremia 276.1 ; 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 ; Hypertensive heart and chronic kidney disease, benign, without heart failure and with chronic kidney disease stage I through stage IV, or unspecified 404.10 ; Proteinuria 791.0 and Chronic kidney disease (CKD), stage III (moderate) 585.3 [id number] [place] [address] 78753- 5110 Mar, [place] [id number] [place] [address] 50707- 1600 Mar, Elevated blood sugar level 790.29 [id number] [place] [address] 50448- 4034 Mar, Low grade squamous intraepithelial lesion (LGSIL) on cervical Pap smear 795.03 [id number] [place] [address] 66684- 5993 Mar, Amenorrhea 626.0 [address] [address] [id number] [place] [address] 02448- 6057 15 Jan, 2015 Amenorrhea 626.0 ; Routine gynecological examination V72.31 and Screen for STD (sexually transmitted disease) V74.5 [facility] [address], [place] [address]- 8166 11 Jan, 2015 Amenorrhea 626.0 [facility] [address], [place] [address]- 3426 08 Jan, 2015 Routine gynecological examination V72.31 ; Screen for STD ( sexually transmitted disease) V74.5 ; Pap test, as part of routine gynecological examination V76.2 ; Breast cancer screening V76.10 and Amenorrhea 626.0 [facility] [address], [place] [address]- 7333 December, [facility] [address], [place] [address]- 3734 Dec, [facility] [address], [place] [address]- 4567 Dec, [facility] [address], [place] [address]- 5142 Oct, [facility] [address], [place] [address]- 1363 Oct, [facility] [address], [place] [address]- 5471 Oct, [facility] [address], [place] [address]- 5834 Oct, [facility] [address] 9199 Oct, [facility] [address], [place] [address]- 6169 Oct, [facility] [id number] [address]- 0191 Oct, [facility] [address], [place] [address]- 6636 Oct, [facility] [place] [facility] [address] [id number] [place] [address]- 8668 Oct, [facility] [place] [facility] [address] [id number] [place] [address]- 9018 Oct, [facility] [place] [facility] [address] [id number] [place] [address]- 2182 Oct, [facility] [place] [facility] [address] [id number] [place] [address]- 8176 Sep, [facility] [place] [facility] [address] [id number] [place] [address]- 8394 Sep, [facility] [place] [facility] [address] [id number] [place] [address]- 1361 Sep, [facility] [place] [facility] [address] [id number], [place] [address]- 5072 Sep, [facility] [place] [facility] [address] [id number] [place] [address]- 3186 Sep, [facility] [place] [facility] [address] [id number] [place] [address]- 1907 Sep, [facility] [place] [facility] [address] [id number] [place] [address]- 5893 Sep, [facility] [place] [facility] [address] [id number], [place] [address]- 2622 Sep, [facility] [place] [facility] [address] [id number], [place] [address]- 6335 Sep, [facility] [place] [facility] [address] [id number], [place] [address]- 5371 Sep, [facility] [place] [facility] [address] [id number], [place] [address]- 1495 Sep, [facility] [place] [facility] [address] [id number], [place] [address]- 8789 Sep, [facility] [place] [facility] [address] [id number] [place] [address] 2549 08 Sep, 2014 [facility] [place] [facility] [address] [id number] [place] [address]- 5115 Sep, [facility] [place] [facility] [address] [id number] [place] [address]- 7716 Sep, [facility] [place] [facility] [address] [id number] [place] [address]- 0617 Sep, [facility] [place] [facility] [address] [id number] [place] [address]- 5408 Sep, [facility] [place] [facility] [address] [id number] [place] [address]- 6481 Sep, [facility] [place] [facility] [address] [id number] [place] [address]- 6787 Sep, [facility] [place] [facility] [address] [id number] [place] [address]- 3945 Sep, [facility] [place] [facility] [address] [id number] [place] [address]- 0877 Aug, [facility] [place] [facility] [address] [id number] [place] [address]- 4880 Aug, [facility] [place] [facility] [address] [id number] [place] [address]- 7806 Aug, [facility] [place] [facility] [address] [id number] [place] [address]- 4176 Aug, [facility] [place] [facility] [address] [id number] [place] [address]- 6188 Aug, [facility] [place] [facility] [address] [id number] [place] [address]- 7926 Aug, [facility] [place] [facility] [address] [id number] [place] [address]- 1136 Aug, [facility] [place] [facility] [address] [id number] [place] [address]- 7498 Aug, [facility] [place] [facility] [address] [id number] [place] [address]- 2713 Aug, [facility] [place] [facility] [address] [id number] [place] [address]- 9613 Aug, [facility] [place] [facility] [address] [id number] [place] 9984 Aug, [facility] [place] [facility] [address] [id number] [place] [address]- 7953 Aug, [facility] [place] [facility] [address] [id number] [place] [address]- 4424 Jul, [facility] [place] [facility] [address] [id number] [place] [address]- 5365 Jul, [facility] [place] [facility] [address] [id number] [place] [address]- 1427 Jul, [facility] [place] [facility] [address] [id number] [place] [address]- 5198 Jul, [facility] [place] [facility] [address] [id number] [place] [address]- 6369 Jul, [facility] [place] [facility] [address] [id number] [place] [address]- 0755 Jul, [facility] [place] [facility] [address] [id number], [place] [address]- 1925 Jul, [facility] [place] [facility] [address] [id number], [place] [address]- 7486 Jul, [facility] [place] [facility] [address] [id number] [place] [address]- 5171 Jul, [facility] [place] [facility] [address] [id number], [place] [address]- 5881 Jul, [facility] [place] [facility] [address] [id number] [place] [address]- 8682 Jun, [facility] [place] [facility] [address] [id number] [place] [address]- 8088 31 Jun, 2013 [facility] [place] [facility] [address] [id number] [place] [address]- 9459 30 Jun, 2014 [facility] [place] [facility] [address] [id number] [place] [address]- 2144 30 Jun, 2014 [facility] [place] [facility] [address] [id number] [place] [address]- 1598 30 Jun, 2014 [facility] [place] [facility] [address] [id number] [place] [address]- 8040 30 Jun, 2014 [facility] [place] [facility] [address] [id number] [place] [address]- 4853 15 Jun, 2014 [facility] [place] [facility] [address] [id number] [place] [address]- 8340 15 Jun, 2014 [facility] [place] [facility] [address] [id number] [place] [address]- 3322 22 May, 2013 [facility] [place] [facility] [address] [id number] [place] [address]- 0037 22 May, 2013 [facility] [place] [facility] [address] [id number] [place] [address]- 8343 18 May, 2013 [facility] [place] [facility] [address] [facility] [id number] [place] [address]- 1054 18 May, 2013 [facility] [place] [facility] [address] [id number] [place] [address]- 2543 09 May, 2013 [facility] [place] [facility] [address] [id number] [place] [address]- 2541 08 May, 2013 [facility] [place] [facility] [address] [id number] [place] [address]- 5443 02 May, 2013 [facility] [place] [facility] [address] [id number] [place] [address]- 6898 02 May, 2013 [facility] [place] [facility] [address] [id number] [place] [address]- 8622 Apr, [facility] [place] [facility] [address] [id number] [place] [address]- 7142 Apr, [facility] [place] [facility] [address] [id number] [place] [address]- 5268 Apr, [facility] [place] [facility] [address] [id number] [place] [address]- 5344 Apr, [facility] [place] [facility] [address] [id number] [place] [address]- 7708 Mar, [facility] [place] [facility] [address] [id number] [place] [address]- 7152 Mar, [facility] [place] [facility] [address] [id number] [place] [address]- 0748 Mar, [facility] [place] [facility] [address] [id number] [place] [address]- 8592 Mar, [facility] [place] [facility] [address] [id number] [place] [address]- 2012 Mar, [facility] [place] [facility] [address] [id number] [place] [address]- 4328 Mar, [facility] [place] [facility] [address] [id number] [place] [address]- 2634 Jan, [facility] [place] [facility] [address] [id number] [place] [address]- 0350 Jan, [facility] [place] [facility] [address] [id number] [place] [address]- 5978 Jan, [facility] [place] [facility] [address] [id number] [place] [address]- 7082 Jan, [facility] [place] [facility] [address] [id number] [place] [address]- 2130 Jan, [facility] [place] [facility] [address] [id number] [place] [address]- 0883 Jan, [facility] [place] [facility] [address] [id number] [place] [address]- 3758 Jan, [facility] [place] [facility] [address] [id number] [place] [address]- 8757 Jan, [facility] [place] [facility] [address] [id number] [place] [address]- 8403 Jan, [facility] [place] [facility] [address] [id number] [place] [address]- 0614 Jan, [facility] [place] [facility] [address] [id number] [place] [address]- 9849 Jan, [facility] [place] [facility] [address] [id number] [place] [address]- 7352 Jan, [facility] [place] [facility] [address] [id number] [place] [address]- 7292 December, [facility] [place] [facility] [address] [id number] [place] [address]- 2059 December, [facility] [place] [facility] [address] [id number] [place] [address]- 1388 December, [facility] [place] [facility] [address] [id number] [place] [address]- 2377 December, [facility] [place] [facility] [address] [id number] [place] [address]- 3450 Dec, [facility] [place] [facility] [address] [id number] [place] [address]- 9488 Dec, [facility] [place] [facility] [address] [id number] [place] [address]- 2276 Dec, [facility] [place] [facility] [address] [id number] [place] [address]- 5758 Dec, [facility] [place] [facility] [address] [id number] [place] [address]- 3181 Dec, [facility] [place] [facility] [address] [id number] [place] [address]- 2460 Dec, [facility] [place] [facility] [address] [id number] [place] [address]- 5528 Dec, [facility] [place] [facility] [address] [id number] [place] [address]- 9941 Dec, [facility] [place] [facility] [address] [id number] [place] [address]- 7934 Dec, [facility] [place] [facility] [address] [id number] [place] [address]- 7293 Dec, [facility] [place] [facility] [address] [id number] [place] [address]- 6897 Dec, [facility] [place] [facility] [address] [id number] [place] [address]- 9786 Dec, [facility] [place] [facility] [address] [id number] [place] [address]- 2857 Dec, [facility] [place] [facility] [address] [id number] [place] [address]- 1167 Dec, [facility] [address] [id number] [place] [address]- 6149 Oct, [facility] [place] [facility] [address] [id number] [place] [address]- 3182 Oct, [facility] [address] [id number] [place] [address]- 1948 Oct, [facility] [place] [facility] [address] [id number] [place] [address]- 5100 29 Oct, 2013 [facility] [place] [facility] [address] [id number] [place] [address]- 3392 Oct, [facility] [place] [facility] [address] [id number] [place] [address]- 1798 Oct, [facility] [place] [facility] [address] [id number] [place] [address] Oct, [facility] [place] [facility] [address] [id number] [place] [address]- 2980 Oct, [facility] [address] [id number], [place] [address]- 8101 Oct, [facility] [address] [facility] [id number] [place] [address]- 1203 Oct, [facility] [address] [facility] [id number] [place] [address]- 5094 Sep, [facility] [address] [facility] [id number] [place] [address]- 6208 Sep, [facility] [address] [id number] [place] [address]- 8454 Sep, [facility] [address] [id number] [place] [address]- 6582 Sep, [facility] [address] [facility] [id number], [place] [address]- 5261 Sep, [facility] [address] [facility] [id number], [place] [address]- 4167 Sep, [facility] [address] [facility] [id number], [place] [address]- 7070 Aug, [facility] [address] [facility] [id number], [place] [address]- 3385 Aug, [facility] [address] [facility] [id number], [place] [address]- 5304 Jul, [facility] [address] [facility] [id number], [place] [address]- 9584 Jul, [facility] [address] [facility] [id number], [place] [address]- 0158 Jul, [facility] [address] [facility] [id number], [place] [address]- 5153 Jul, [facility] [address] [facility] [id number], [place] [address]- 8087 Jul, IMMUNIZATIONS No Known Immunizations SOCIAL HISTORY Never Assessed REASON FOR VISIT lovastatin refill PLAN OF CARE VITAL SIGNS MEDICATIONS Medication Instructions Dosage Frequency Start Date End Date Duration Status Lovastatin 40 mg Orally Once a day 1 tablet with a meal 24h Mar, 30 days Active RESULTS No Results PROCEDURES [...]
--- OUTSIDE RECORDS SUMMARY | 2018-08-30 20:33 | XMS REPORT ---
Author Author NOEMY MORGAN Organization [facility] Address [address] 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 [id number] [place] [address] 61577- 9353 May, [facility] [address] [place] [address] May, [facility] [id number] [place] [address] 74330- 0865 Apr, [facility] [id number] [place] [address] 48008- 2283 Apr, [facility] [id number] [place] [address] 45329- 7525 Apr, [facility] [id number] [place] [address] 75315- 2289 Apr, Opioid use disorder, severe, in early remission F11.21 [facility] [id number] [place] [address] 08472 -9469 Apr, Bacterial conjunctivitis of left eye H10.9 [facility] [id number] [place] [address] 20404- 5615 Apr, [facility] [id number] [place] [address] 55712- 2190 Apr, [facility] [id number] [place] [address] 22486- 4033 Mar, Essential hypertension I10 and Irritable bowel syndrome with constipation K58.1 [facility] [id number] [place] [address] 92773- 2976 Mar, 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 [id number] [place] [address] 50654- 8442 Mar, Mixed hyperlipidemia E78.2 [facility] [id number] [place] [address] 38698- 0912 Mar, Opioid use disorder, severe, in early remission F11.21 [facility] [id number] [place] [address] 95415- 5496 Mar, [facility] [address] [place] [address] Mar, Opioid use disorder, severe, in sustained remission F11.21 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 [id number] [place] [address] 98637- 2036 Dec, Opioid use disorder, severe, in early remission F11.21 [facility] [id number] [place] [address] 20124- 1182 Oct, [facility] [id number] [place] [address] 21125- 8313 Oct, Opioid use disorder, severe, in early remission F11.21 [facility] [id number] [place] [address] 27608- 9370 Oct, 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 [address] [address] Oct, [facility] [id number] [place] [address] 12411- 3827 Oct, [facility] [address] [place] [address] Oct, Opioid use disorder, severe, in sustained remission F11.21 [facility] [id number] [place] [address] 97954- 2767 Sep, [facility] [id number] [place] [address] 03158- 5645 Sep, [facility] [id number] [place] [address] 73929- 9368 Sep, Opioid use disorder, severe, in early remission F11.21 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 [id number] [place] [address] 73594- 2070 Jul, [facility] [id number] [place] [address] 79898- 9380 Jul, Chronic kidney disease, stage 3 N18.3 ; Dysthymia F34.1 and Opioid use disorder, severe, in sustained remission F11.21 [facility] [address] [place] [address] Jul, Opioid use disorder, severe, in sustained remission F11.21 [facility] [address] [address] 2332 Jul, Long-term use of high-risk medication Z79.899 and Chronic kidney disease, stage [address] 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 [id number] [place] [address] 22681- 6718 Jul, [facility] [id number] [place] [address] 60807- 2306 Jun, [facility] [id number] [place] [address] 99141- 1900 Jun, 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 [id number] [place] [address] 44751- 0821 Jun, [facility] [address] 83808- 4271 Jun, Long-term use of high-risk medication Z79.899 [facility] [id number] [place] [address] 77919- 1308 Jun, CHI I (cervical intraepithelial neoplasia I) N87.0 [facility] [id number] [place] [address] 64169- 1357 22 May, 2017 Opioid use disorder, severe, in early remission F11.21 [facility] [id number] [place] [address] 95390- 4896 18 May, 2017 Chronic kidney disease, stage [address] [facility] [id number] [place] [address] 66714- 4075 14 May, 2017 Chronic kidney disease, stage 3 N18.3 [facility] [address] [place] [address] 05 May, 2017 Opioid use disorder, severe, in sustained remission F11.21 [facility] [id number] [place] [address] 28394- 8850 Apr, LGSIL on Pap smear of cervix R87.612 [facility] [address] [place] [address] Apr, [facility] [id number] [place] [address] 00600- 6954 Apr, Opioid use disorder, severe, in early remission F11.21 [facility] [id number] [place] [address] 79926- 2620 Apr, Opioid use disorder, severe, in early remission F11.21 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 [facility] [id number] [place] [address] 55361- 2814 Apr, Opioid use disorder, severe, in early remission F11.21 [facility] [address] [place] [address] Apr, Opioid use disorder, severe, in sustained remission F11.21 [facility] [id number] [place] [address] 04608- 8462 09 Apr, 2017 Opioid use disorder, severe, 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 [id number] [place] [address] 80920- 4953 Mar, [facility] [id number] [place] [address] 49784- 4734 Mar, Opioid use disorder, severe, in early remission F11.21 [facility] [id number] [place] [address] 97912- 1409 Mar, [facility] [address] [place] [address] Mar, Opioid use disorder, severe, in sustained remission F11.21 [facility] [address] [place] [address] Mar, Opioid use disorder, severe, in sustained remission F11.21 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 [address] 64967- 8052 December, Encounter for therapeutic drug level monitoring Z51.81 [facility] [address] [place] [address] December, Opioid use disorder, severe, in sustained remission F11.21 [facility] [address] [place] [address] Dec, Opioid use disorder, severe, in sustained remission F11.21 [facility] [id number] [place] [address] 60532- 7078 Dec, Opioid use disorder, severe, in early remission F11.21 [facility] [id number] [place] [address] 98289- 1698 Dec, [facility] [address] [place] [address] Dec, Opioid use disorder, severe, in sustained remission F11.21 [facility] [id number] [place] [address] 97511- 7888 Dec, Opioid use disorder, severe, in early remission F11.21 [facility] [address] [place] [address] Dec, Opioid use disorder, severe, in sustained remission F11.21 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 [id number] [place] [address] 02441- 2548 06 Oct, 2016 Opioid use disorder, severe, in early remission F11.21 [facility] [id number] [place] [address] 14824- 2495 06 Oct, 2016 Opioid use disorder, severe, in early remission F11.21 [facility] [address] [place] [address] 02 Oct, 2016 Opioid use disorder, severe, in sustained remission F11.21 [facility] [id number] [place] [address] 63219- 8885 Oct, Opioid use disorder, severe, in early remission F11.21 [facility] [id number] [place] [address] 59998- 4219 23 Oct, 2016 Opioid use disorder, severe, in early remission F11.21 [facility] [address] [place] [address] Oct, Opioid use disorder, severe, in sustained remission F11.21 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 [id number] [place] [address] 75601- 6629 16 Oct, 2016 [facility] [address] [place] [address] 14 Oct, 2016 Opioid use disorder, severe, in early remission F11.21 [facility] [address] [place] [address] 10 Oct, 2016 Opioid use disorder, severe, in early remission F11.21 [facility] [id number] [place] [address] 97577- 6631 09 Oct, 2016 Opioid use disorder, severe, in early remission F11.21 [facility] [id number] [place] [address] 63656- 7784 [address], [address] [facility] [id number] [place] [address] 75180- 9061 [address], [address] [facility] [id number] [place] [address] 18689- 1853 Oct, [facility] [address] [place] [address] Oct, Opioid use disorder, severe, in early remission F11.21 [facility] [id number] [place] [address] 24920- 0545 25 Kash, 2017 Opioid use disorder, severe, in early remission F11.21 [facility] [address] [place] [address] Sep, Opioid use disorder, severe, in early remission F11.21 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 [id number] [place] [address] 81731- 8330 Sep, [facility] [id number] [place] [address] 61340- 8416 Sep, 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 [id number] [place] [address] 92564- 7459 Sep, Opioid use disorder, moderate, dependence F11.20 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 [id number] [place] [address] 10811- 2252 Sep, Opioid use disorder, severe, in early remission F11.21 [facility] [address] [place] [address] Aug, Opioid use disorder, severe, in early remission F11.21 [facility] [id number] [place] [address] 29991- 269 Aug, Opioid use disorder, moderate, dependence F11.20 [facility] [id number] [place] [address] 32264 -7456 Aug, Bug bite without infection, initial encounter W57.XXXA 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 [id number] [place] [address] 86378- 7332 Aug, [facility] [place] [id number] [place] [address] 72488- 4738 Aug, Non-intractable vomiting with nausea, unspecified vomiting type R11.2 [facility] [id number] [place] [address] 99312- 9344 Aug, Opioid use disorder, moderate, dependence F11.20 and Non- intractable vomiting with nausea, unspecified vomiting type R11.2 [facility] [id number] [place] [address] 14599- 9717 08 Aug, 2016 [facility] [id number] [place] [address] 68859- 1265 Aug, Opioid use disorder, moderate, dependence F11.20 [facility] [address] 29693- 0236 Aug, 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 [address] 68369- 1715 Jul, [facility] [address] [place] [address] 13005- 7763 Jul, [facility] [address] 11878- 9276 Jul, Addiction to drug F19.20 and Chronic kidney disease, stage 3 N18.3 [facility] [address] [place] [address] Jul, Counseling on substance use and abuse Z71.89 [facility] [address] [place], [place] [id number] [place] [phone] Jul, Chronic kidney disease, stage [address] 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 [id number] [place] [phone] Jul, [facility] [address] [phone] Jun, [facility] [id number] [address] Jun, 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 [id number] [place] [phone] Apr, Sore throat and laryngitis J06.0 and Non-intractable vomiting with nausea, unspecified vomiting type R11.2 [facility] [address] [id number] [address] Apr, [facility] [id number] [place] [address] 67639- 1310 Mar, [facility] [id number] [place] [address] 61512- 4023 Jan, [facility] [id number] [place] [address] 56789- 6566 Jan, [facility] [id number] [place] [address] 59101- 5796 Jan, 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 [address] [address] 0263 December, [facility] [id number] [place] [address] 84184- 9294 December, [facility] [id number] [place] [address] 05999- 7301 Aug, Depression F32.[address] [facility] [id number] [place] [address] 57823- 0422 15 Aug, [address] 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 [address] 20043- 2051 Jul, [facility] [address] [id number] Jul, Dental examination Z01.20 and Dental caries K02.9 [place] [address] [address]97- 8432 17 Jul, 2015 [facility] [address] [address] -9886 Jul, Dysuria R30.0 ; Urinary tract infection N39.[address] [facility] [address] 95204- 0585 Jun, [address]30.0 [facility] [address] 24621- 4700 Jun, Dysuria R30.0 [place] [address] 93030- 0506 Jun, [address] [facility] [address] 80600- 4535 Jun, [facility] [address] 57264- 8362 14 Jun, 2015 Acute cystitis with hematuria N30.01 [facility] [address] 63542- 6668 May, [facility] [address] 61037- 7202 Apr, Diabetes mellitus without mention of complication, type I [ juvenile type], not stated as uncontrolled 250.01 ; Gastroparesis due to DM 250.60 ; Contraception management V25.9 and Renal insufficiency 593.9 [place] [address] [id number] [place] [address] 04805- 6418 Apr, [place] [id number] [place] [address] 60398- 4531 Apr, [place] [id number] [place] [address] 33880- 3202 Mar, [address] 15989- 0556 Mar, Hyperlipidemia 272.4 and Hypertensive heart and chronic kidney disease, benign, without heart failure and with chronic kidney disease stage I through stage IV, or unspecified 404.10 [id number] [place] [address] 97961- 7948 Mar, Hyperlipidemia 272.4 ; Hyponatremia 276.1 ; 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 ; Hypertensive heart and chronic kidney disease, benign, without heart failure and with chronic kidney disease stage I through stage IV, or unspecified 404.10 ; Proteinuria 791.0 and Chronic kidney disease (CKD), stage III (moderate) 585.3 [address] [id number] [place] [address] 63985- 0208 Mar, [address] [id number] [place] [address] 96785- 0855 Mar, Elevated blood sugar level 790.29 [id number] [place] [address] 05933- 3398 Mar, Low grade squamous intraepithelial lesion (LGSIL) on cervical Pap smear 795.03 [id number] [place] [address] 13049- 3512 Mar, Amenorrhea 626.0 [id number] [place] [address] 42430- 6119 15 Jan, 2015 Amenorrhea 626.0 ; Routine gynecological examination V72.31 and Screen for STD (sexually transmitted disease) V74.5 [facility] [address] [address] 0[address] 11 Jan, [address] [facility] [address] [address]- 0149 08 Jan, 2015 Routine gynecological examination V72.31 ; Screen for STD ( sexually transmitted disease) V74.5 ; Pap test, as part of routine gynecological examination V76.2 ; Breast cancer screening V76.[address] [facility] [address] [address] 8178 December, [facility] [address] [address] 7397 Dec, [facility] [address]65[address] [address] 6651 Dec, [facility] [address] [address] 0653 Oct, [facility] [address] [address] 3651 Oct, [facility] [address]65[address] [address] 6695 Oct, [facility] [address] [address] 7352 Oct, [facility] [address] 0935 Oct, [facility] [address] [address] 0322 Oct, [facility] [id number] [address]- 3214 Oct, [facility] [address] [address]- 1700 Oct, [facility] [place] [facility] [address] [id number] [place] [address]- 7944 Oct, [facility] [place] [facility] [address] [id number] [place] [address]- 6425 Oct, [facility] [place] [facility] [address] [id number] [place] [address]- 5721 Oct, [facility] [place] [facility] [address] [id number] [place] [address]- 6785 Sep, [facility] [place] [facility] [address] [id number] [place] [address]- 1820 Sep, [facility] [place] [facility] [address] [id number] [place] [address]- 9646 Sep, [facility] [place] [facility] [address] [id number] [address]- 9104 Sep, [facility] [place] [facility] [address] [id number] [place] [address]- 5911 Sep, [facility] [place] [facility] [address] [id number] [place] [address]- 9218 Sep, [facility] [place] [facility] [address] [id number] [place] [address]- 5212 Sep, [facility] [place] [facility] [address] [id number] [address]- 4915 Sep, [facility] [place] [facility] [address] [id number] [address]- 8377 Sep, [facility] [place] [facility] [address] [id number] [address]- 8894 Sep, [facility] [place] [facility] [address] [id number] [address]- 7612 Sep, [facility] [place] [facility] [address] [id number] [address]- 3503 Sep, [facility] [place] [facility] [address] [id number] [place] [address] 2543 08 Sep, 2014 [facility] [place] [facility] [address] [id number] [place] [address]- 5310 Sep, [facility] [place] [facility] [address] [id number] [place] [address]- 9736 Sep, [facility] [place] [facility] [address] [id number] [place] [address]- 4899 Sep, [facility] [place] [facility] [address] [id number] [place] [address]- 3884 Sep, [facility] [place] [facility] [address] [id number] [place] [address]- 4488 Sep, [facility] [place] [facility] [address] [id number] [place] [address]- 3501 Sep, [facility] [place] [facility] [address] [id number] [place] [address]- 6926 Sep, [facility] [place] [facility] [address] [id number] [place] [address]- 2060 Aug, [facility] [place] [facility] [address] [id number] [place] [address]- 1798 Aug, [facility] [place] [facility] [address] [id number] [place] [address]- 8872 Aug, [facility] [place] [facility] [address] [id number] [place] [address]- 5510 Aug, [facility] [place] [facility] [address] [id number] [place] [address]- 4617 Aug, [facility] [place] [facility] [address] [id number] [place] [address]- 5916 Aug, [facility] [place] [facility] [address] [id number] [place] [address]- 5846 Aug, [facility] [place] [facility] [address] [id number] [place] [address]- 5740 Aug, [facility] [place] [facility] [address] [id number] [place] [address]- 4861 Aug, [facility] [place] [facility] [address] [id number] [place] [address]- 4947 Aug, [facility] [place] [facility] [address] [id number] [place] 7260 Aug, [facility] [place] [facility] [address] [id number] [place] [address]- 3029 Aug, [facility] [place] [facility] [address] [id number] [place] [address]- 8926 Jul, [facility] [place] [facility] [address] [id number] [place] [address]- 9669 Jul, [facility] [place] [facility] [address] [id number] [place] [address]- 9957 Jul, [facility] [place] [facility] [address] [id number] [place] [address]- 3529 Jul, [facility] [place] [facility] [address] [id number] [place] [address]- 8647 Jul, [facility] [place] [facility] [address] [id number] [place] [address]- 5748 Jul, [facility] [place] [facility] [address] [id number] [address]- 4199 Jul, [facility] [place] [facility] [address] [id number] [address]- 4078 Jul, [facility] [place] [facility] [address] [id number] [place] [address]- 7802 Jul, [facility] [place] [facility] [address] [id number] [address]- 3039 Jul, [facility] [place] [facility] [address] [id number] [place] [address]- 0520 Jun, [facility] [place] [facility] [address] [id number] [place] [address]- 6457 31 Jun, 2013 [facility] [place] [facility] [address] [id number] [place] [address]- 3669 30 Jun, 2014 [facility] [place] [facility] [address] [id number] [place] [address]- 9208 30 Jun, 2014 [facility] [place] [facility] [address] [id number] [place] [address]- 7273 30 Jun, 2014 [facility] [place] [facility] [address] [id number] [place] [address]- 3656 30 Jun, 2014 [facility] [place] [facility] [address] [id number] [place] [address]- 1928 15 Jun, 2014 [facility] [place] [facility] [address] [id number] [place] [address]- 0503 15 Jun, 2014 [facility] [place] [facility] [address] [id number] [place] [address]- 1135 22 May, 2013 [facility] [place] [facility] [address] [id number] [place] [address]- 3550 22 May, 2013 [facility] [place] [facility] [address] [id number] [place] [address]- 7332 18 May, 2013 [facility] [place] [facility] [address] [facility] [id number] [place] [address]- 7522 18 May, 2013 [facility] [place] [facility] [address] [id number] [place] [address]- 2545 09 May, 2013 [facility] [place] [facility] [address] [id number] [place] [address]- 2540 08 May, 2013 [facility] [place] [facility] [address] [id number] [place] [address]- 3992 02 May, 2013 [facility] [place] [facility] [address] [id number] [place] [address]- 9804 02 May, 2013 [facility] [place] [facility] [address] [id number] [place] [address]- 1870 Apr, [facility] [place] [facility] [address] [id number] [place] [address]- 5410 Apr, [facility] [place] [facility] [address] [id number] [place] [address]- 8276 Apr, [facility] [place] [facility] [address] [id number] [place] [address]- 0735 Apr, [facility] [place] [facility] [address] [id number] [place] [address]- 3168 Mar, [facility] [place] [facility] [address] [id number] [place] [address]- 9341 Mar, [facility] [place] [facility] [address] [id number] [place] [address]- 4041 Mar, [facility] [place] [facility] [address] [id number] [place] [address]- 6791 Mar, [facility] [place] [facility] [address] [id number] [place] [address]- 4377 Mar, [facility] [place] [facility] [address] [id number] [place] [address]- 2496 Mar, [facility] [place] [facility] [address] [id number] [place] [address]- 8117 Jan, [facility] [place] [facility] [address] [id number] [place] [address]- 4699 Jan, [facility] [place] [facility] [address] [id number] [place] [address]- 4930 Jan, [facility] [place] [facility] [address] [id number] [place] [address]- 2143 Jan, [facility] [place] [facility] [address] [id number] [place] [address]- 3307 Jan, [facility] [place] [facility] [address] [id number] [place] [address]- 1233 Jan, [facility] [place] [facility] [address] [id number] [place] [address]- 1182 Jan, [facility] [place] [facility] [address] [id number] [place] [address]- 6943 Jan, [facility] [place] [facility] [address] [id number] [place] [address]- 8389 Jan, [facility] [place] [facility] [address] [id number] [place] [address]- 4584 Jan, [facility] [place] [facility] [address] [id number] [place] [address]- 3976 Jan, [facility] [place] [facility] [address] [id number] [place] [address]- 5644 Jan, [facility] [place] [facility] [address] [id number] [place] [address]- 3563 December, [facility] [place] [facility] [address] [id number] [place] [address]- 5900 December, [facility] [place] [facility] [address] [id number] [place] [address]- 2653 December, [facility] [place] [facility] [address] [id number] [place] [address]- 7621 December, [facility] [place] [facility] [address] [id number] [place] [address]- 7459 Dec, [facility] [place] [facility] [address] [id number] [place] [address]- 6826 Dec, [facility] [place] [facility] [address] [id number] [place] [address]- 7544 Dec, [facility] [place] [facility] [address] [id number] [place] [address]- 6110 Dec, [facility] [place] [facility] [address] [id number] [place] [address]- 6242 Dec, [facility] [place] [facility] [address] [id number] [place] [address]- 3065 Dec, [facility] [place] [facility] [address] [id number] [place] [address]- 3024 Dec, [facility] [place] [facility] [address] [id number] [place] [address]- 6661 Dec, [facility] [place] [facility] [address] [id number] [place] [address]- 1435 Dec, [facility] [place] [facility] [address] [id number] [place] [address]- 0424 Dec, [facility] [place] [facility] [address] [id number] [place] [address]- 5226 Dec, [facility] [place] [facility] [address] [id number] [place] [address]- 0462 Dec, [facility] [place] [facility] [address] [id number] [place] [address]- 2324 Dec, [facility] [place] [facility] [address] [id number] [place] [address]- 0036 Dec, [facility] [address] [id number] [place] [address]- 8584 Oct, [facility] [place] [facility] [address] [id number] [place] [address]- 0926 Oct, [facility] [address] [id number] [place] [address]- 2629 Oct, [facility] [place] [facility] [address] [id number] [place] [address]- 9820 29 Oct, 2013 [facility] [place] [facility] [address] [id number] [place] [address]- 6250 Oct, [facility] [place] [facility] [address] [id number] [place] [address]- 5687 Oct, [facility] [place] [facility] [address] [id number] [place] [id number] Oct, [facility] [place] [facility] [address] [id number] [place] [address]- 7888 Oct, [facility] [address] [facility] [id number] [address]- 9886 Oct, [facility] [address] [facility] [id number] [place] [address]- 7376 Oct, [facility] [address] [facility] [id number] [place] [address]- 4661 Sep, [facility] [address] [facility] [id number] [place] [address]- 3449 Sep, [facility] [address] [facility] [id number] [place] [address]- 6930 Sep, [facility] [address] [facility] [id number] [place] [address]- 0697 Sep, [facility] [address] [facility] [id number] [place] [address]- 4650 Sep, [facility] [address] [facility] [id number] [address]- 8035 Sep, [facility] [address] [facility] [id number] [address]- 7759 Aug, [facility] [address] [facility] [id number] [address]- 0022 Aug, [facility] [address] [id number] [address]- 6479 Jul, [facility] [address] [facility] [id number] [address]- 3900 Jul, [facility] [address] [facility] [id number] [address]- 8421 Jul, [facility] [address] [facility] [id number] [address]- 8654 Jul, [facility] [address] [facility] [id number] [address]- 1864 Jul, IMMUNIZATIONS No Known Immunizations SOCIAL HISTORY Never Assessed REASON FOR VISIT Suboxone rx (03/27-04/23) PLAN OF CARE VITAL SIGNS MEDICATIONS Medication [...]
--- OUTSIDE RECORDS SUMMARY | 2018-08-30 20:34 | XMS REPORT ---
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 Active 39696526 Problem Chronic kidney disease, stage 3 N18.3 Active 213427788 Problem CHI I (cervical intraepithelial neoplasia I) N87.0 Active 639703371 Problem Mild episode of recurrent major depressive disorder F33.0 Active 772443800 Problem Addiction to drug F19.20 Active 968496028 Problem Essential hypertension I10 Active 96936518 Problem Opioid use disorder, severe, in sustained remission F11.21 Active 50618622 Problem Irritable bowel syndrome with constipation K58.1 Active 760264060 ALLERGIES No Information ENCOUNTERS Encounter Location Date Diagnosis [facility] [id number] [place] [address] 61844- 4865 May, [facility] [address] [place] [address] May, [facility] [id number] [place] [address] 43547- 9102 Apr, [facility] [id number] [place] [address] 58347- 0127 Apr, [facility] [id number] [place] [address] 37880- 3904 Apr, [facility] [id number] [place] [address] 24342- 7342 Apr, Opioid use disorder, severe, in early remission F11.21 [facility] [address] [place] [address] 28742 -0790 Apr, Bacterial conjunctivitis of left eye H10.9 [facility] [address] [place] [address] 89765- 4721 Apr, [facility] [id number] [place] [address] 86474- 3952 Apr, [facility] [id number] [place] [address] 91050- 6615 Mar, Essential hypertension I10 and Irritable bowel syndrome with constipation K58.1 [facility] [id number] [place] [address] 04249- 7719 Mar, [facility] [id number] [place] [address] 27259- 1808 Mar, Chronic kidney disease, stage 3 N18.3 ; 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 ; Opioid use disorder, severe, in sustained remission F11.21 and Mixed hyperlipidemia E78.2 [facility] [id number] [place] [address] 13409- 7874 Mar, Mixed hyperlipidemia E78.2 [facility] [id number] [place] [address] 83601- 3753 Mar, Opioid use disorder, severe, in early remission F11.21 [facility] [address] [place] [address] 92745- 7408 Mar, [facility] [address] [place] [address] Mar, Opioid use disorder, severe, in sustained remission F11.21 [facility] [id number] [place] [address] 80883- 6867 Jan, Opioid use disorder, severe, 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 [facility] [id number] [place] [address] 84371- 5310 December, Opioid use disorder, severe, in early remission F11.21 [facility] [address] [place] [address] December, Opioid use disorder, severe, in sustained remission F11.21 [facility] [id number] [place] [address] 23910- 8725 December, Opioid use disorder, severe, in sustained remission F11.21 and 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 [facility] [id number] [place] [address] 35378- 5801 December, Opioid use disorder, severe, in early remission F11.21 [facility] [address] [place] [address] Dec, Opioid use disorder, severe, in sustained remission F11.21 [facility] [id number] [place] [address] 18333- 6620 Dec, 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 ; Unprotected sexual intercourse Z72.51 ; Pain of left thumb M79.645 ; Mixed hyperlipidemia E78.2 ; Gastroparesis K31.84 ; Essential hypertension I10 and Irritable bowel syndrome with constipation K58.1 [facility] [id number] [place] [address] 72216- 2354 Dec, Opioid use disorder, severe, in early remission F11.21 [facility] [id number] [place] [address] 40325- 0432 Oct, [facility] [id number] [place] [address] 99021- 0551 Oct, Opioid use disorder, severe, in early remission F11.21 [facility] [id number] [place] [address] 63753- 7913 Oct, [facility] [id number] [place] [address] 66448- 3356 Oct, Opioid use disorder, severe, in early remission F11.21 [facility] [address] [address] 5740 Oct, [facility] [id number] [place] [address] 80503- 2073 Oct, [facility] [address] [place] [address] Oct, Opioid use disorder, severe, in sustained remission F11.21 [facility] [id number] [place] [address] 67824- 8585 Sep, [facility] [id number] [place] [address] 04508- 8175 Sep, [facility] [id number] [place] [address] 14358- 7083 Sep, Opioid use disorder, severe, in early remission F11.21 [facility] [id number] [place] [address] 50908- 4550 Aug, Opioid use disorder, severe, in early remission F11.21 [facility] [address] [place] [address] 72634- 9440 Jul, [facility] [id number] [place] [address] 03120- 0415 Jul, Chronic kidney disease, stage 3 N18.3 ; Dysthymia F34.1 and Opioid use disorder, severe, in sustained remission F11.21 [facility] [address] [place] [address] Jul, Opioid use disorder, severe, in sustained remission F11.21 [facility] [address] [address]- 7014 Jul, Long-term use of high-risk medication Z79.899 and Chronic kidney disease, stage 3 N18.3 [facility] [address] [address]- 4511 Jul, Opioid use disorder, severe, in early remission F11.21 [facility] [id number] [place] [address] 11748- 3690 Jul, [facility] [id number] [place] [address] 63558- 7775 Jun, [facility] [id number] [place] [address] 95392- 8467 Jun, [facility] [id number] [place] [address] 18490- 5395 Jun, Opioid use disorder, moderate, dependence F11.20 and Opioid use disorder, severe, in early remission F11.21 [facility] [id number] [place] [address] 36979- 7905 Jun, [place] [address] 56382- 4073 Jun, Long-term use of high-risk medication Z79.899 [facility] [id number] [place] [address] 10468- 8904 Jun, CHI I (cervical intraepithelial neoplasia I) N87.0 [facility] [id number] [place] [address] 15175- 6508 22 May, 2017 Opioid use disorder, severe, in early remission F11.21 [facility] [id number] [place] [address] 46383- 2277 18 May, 2017 Chronic kidney disease, stage 3 N18.3 [facility] [id number] [place] [address] 97518- 2468 14 May, 2017 Chronic kidney disease, stage 3 N18.3 [facility] [address] [place] [address] 05 May, 2017 Opioid use disorder, severe, in sustained remission F11.21 [facility] [id number] [place] [address] 89724- 0427 Apr, LGSIL on Pap smear of cervix R87.612 [facility] [address] [place] [address] Apr, [facility] [address] [place] [address] 29906- 2677 Apr, Opioid use disorder, severe, in early remission F11.21 [facility] [id number] [place] [address] 28904- 4063 Apr, Opioid use disorder, severe, in early remission F11.21 [facility] [id number] [place] [address] 80212- 1499 Apr, Opioid use disorder, severe, in early remission F11.21 [facility] [facility] [id number] [place] [address] 81702- 4948 18 Apr, 2017 Opioid use disorder, severe, in early remission F11.21 [facility] [id number] [place] [address] 74711- 3044 14 Apr, 2017 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 [facility] [facility] [id number] [place] [address] 71754- 6667 Apr, Opioid use disorder, severe, in early remission F11.21 [facility] [address] [place] [address] Apr, Opioid use disorder, severe, in sustained remission F11.21 [facility] [facility] [id number] [place] [address] 39999- 2150 09 Apr, 2017 Opioid use disorder, severe, in early remission F11.21 [facility] [facility] [id number] [place] [address] 82499- 4288 Apr, Mild episode of recurrent major depressive disorder F33.0 and Right acute serous otitis media, recurrence not specified H65.01 [facility] [id number] [place] [address] 45800- 7725 Mar, [facility] [id number] [place] [address] 13315- 1681 Mar, Opioid use disorder, severe, in early remission F11.21 [facility] [id number] [place] [address] 04557- 0936 Mar, [facility] [address] [place] [address] Mar, Opioid use disorder, severe, in sustained remission F11.21 [facility] [address] [place] [address] Mar, Opioid use disorder, severe, in sustained remission F11.21 [facility] [address] [address]- 7496 Mar, Opioid use disorder, severe, 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 [facility] [facility] [id number] [place] [address] 77027- 1146 Jan, Opioid use disorder, severe, in early remission F11.21 [facility] [address] [place] [address] Jan, Opioid use disorder, severe, in sustained remission F11.21 [facility] [address] [place] [address] Jan, Opioid use disorder, severe, in sustained remission F11.21 [facility] [id number] [place] [address] 38054- 0710 Jan, Opioid use disorder, severe, in early remission F11.21 [facility] [address] [place] [address] Jan, Opioid use disorder, severe, in sustained remission F11.21 [facility] [address] [place] [address] [address]- 0795 December, Opioid use disorder, severe, 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 [facility] [address] [place] [address] December, Opioid use disorder, severe, in sustained remission F11.21 [place] [id number] [place] [address] 14026- 0012 December, Routine gynecological examination Z01.419 and Chronic kidney disease, stage 3 N18.3 [facility] [address] [place] [address] [address] 6397 December, Chronic kidney disease, stage 3 N18.3 ; 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 ; Gastroparesis K31.84 ; Essential hypertension I10 and Irritable bowel syndrome with constipation K58.1 [facility] [address] [place] [address] December, Opioid use disorder, severe, in sustained remission F11.21 [facility] [id number] [place] [address] 07011- 3898 December, Opioid use disorder, severe, 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 [facility] [address] [place] [address] December, Opioid use disorder, severe, in sustained remission F11.21 [facility] [address] 32541- 6433 December, Encounter for therapeutic drug level monitoring Z51.81 [facility] [address] [place] [address] December, Opioid use disorder, severe, in sustained remission F11.21 [facility] [address] [place] [address] Dec, Opioid use disorder, severe, in sustained remission F11.21 [facility] [id number] [place] [address] 23229- 9826 Dec, Opioid use disorder, severe, in early remission F11.21 [facility] [id number] [place] [address] 27639- 0037 Dec, [facility] [address] [place] [address] Dec, Opioid use disorder, severe, in sustained remission F11.21 [facility] [id number] [place] [address] 57565- 2387 Dec, Opioid use disorder, severe, in early remission F11.21 [facility] [address] [place] [address] Dec, Opioid use disorder, severe, in sustained remission F11.21 [facility] [id number] [place] [address] 51111- 6804 Dec, 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 [facility] [id number] [place] [address] 73985- 8785 03 Dec, 2016 Opioid use disorder, severe, in sustained remission F11.21 ; Encounter for therapeutic drug level monitoring Z51.81 and Other skilled nursing ( 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 Z79.899 [facility] [address] [place] [address] 31 Oct, 2016 Opioid use disorder, severe, in sustained remission F11.21 [facility] [id number] [place] [address] 49710- 7153 23 Oct, 2016 Opioid use disorder, severe, in early remission F11.21 [place] [address] 25403- 4624 15 Oct, 2016 [facility] [address] [place] [address] 15 Oct, 2016 Opioid use disorder, severe, in sustained remission F11.21 [facility] [facility] [id number] [place] [address] 17323- 5421 15 Oct, 2016 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 [facility] [facility] [id number] [place] [address] 01317- 4759 14 Oct, 2016 Routine gynecological examination Z01.419 [place] [id number] [place] [address] 69611- 0311 07 Oct, 2016 Opioid use disorder, severe, in early remission F11.21 [facility] [id number] [place] [address] 16199- 7560 06 Oct, 2016 Opioid use disorder, severe, in early remission F11.21 [facility] [id number] [place] [address] 05881- 9103 06 Oct, 2016 Opioid use disorder, severe, in early remission F11.21 [facility] [address] [place] [address] 02 Oct, 2016 Opioid use disorder, severe, in sustained remission F11.21 [facility] [id number] [place] [address] 28741- 1817 Oct, Opioid use disorder, severe, in early remission F11.21 [facility] [id number] [place] [address] 53982- 5314 23 Oct, 2016 Opioid use disorder, severe, in early remission F11.21 [facility] [address] [place] [address] Oct, Opioid use disorder, severe, in sustained remission F11.21 [facility] [id number] [place] [address] 01252- 4701 20 Oct, 2016 Opioid use disorder, severe, in sustained remission F11.21 ; Encounter for therapeutic drug level monitoring Z51.81 and Other skilled nursing ( 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 Z79.899 [facility] [id number] [place] [address] 31108- 0577 16 Oct, 2016 [facility] [address] [place] [address] 14 Oct, 2016 Opioid use disorder, severe, in early remission F11.21 [facility] [address] [place] [address] 10 Oct, 2016 Opioid use disorder, severe, in early remission F11.21 [facility] [id number] [place] [address] 25534- 9713 09 Oct, 2016 Opioid use disorder, severe, in early remission F11.21 [facility] [id number] [place] [address] 71857- 4953 08 Oct, 2016 [facility] [id number] [place] [address] 70757- 3412 07 Oct, 2016 [facility] [id number] [place] [address] 33103- 7299 Oct, [facility] [address] [place] [address] Oct, Opioid use disorder, severe, in early remission F11.21 [facility] [id number] [place] [address] 77123- 0523 25 Kash, 2017 Opioid use disorder, severe, in early remission F11.21 [facility] [address] [place] [address] Sep, Opioid use disorder, severe, in early remission F11.21 [facility] [id number] [place] [address] 98274- 3725 Sep, Opioid use disorder, severe, in early remission F11.21 ; Other skilled nursing (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 Z79.899 and Encounter for therapeutic drug level monitoring Z51.81 [facility] [id number] [place] [address] 68542- 9785 Sep, [facility] [id number] [place] [address] 97264- 1313 Sep, [facility] [id number] [place] [address] 90355- 8262 Sep, Opioid use disorder, severe, in early remission F11.21 ; 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 ; Chronic kidney disease, stage 3 N18.3 ; Essential hypertension I10 and Irritable bowel syndrome with constipation K58.1 [facility] [address] [place] [address] Sep, Opioid use disorder, severe, in early remission F11.21 [facility] [address] [place] [address] Sep, Opioid use disorder, severe, in early remission F11.21 [facility] [id number] [place] [address] 83397- 0394 Sep, Opioid use disorder, moderate, dependence F11.20 [facility] [id number] [place] [address] 68369- 3738 05 Sep, 2016 Opioid use disorder, moderate, dependence F11.20 [facility] [address] [place] [address] 05 Sep, 2016 Opioid use disorder, severe, in early remission F11.21 [facility] [id number] [place] [address] 06172- 8321 Sep, Opioid use disorder, severe, in early remission F11.21 [facility] [address] [place] [address] Aug, Opioid use disorder, severe, in early remission F11.21 [facility] [id number] [place] [address] 81395- 523 Aug, Opioid use disorder, moderate, dependence F11.20 [facility] [id number] [place] [address] 09250 -6139 Aug, Bug bite without infection, initial encounter W57.XXXA [facility] [id number] [place] [address] 31597- 9529 Aug, Opioid use disorder, moderate, dependence F11.20 [facility] [address] [place] [address] Aug, [place] [id number] [place] [address] 07230- 0365 Aug, Opioid use disorder, severe, in early remission F11.21 ; 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 ; Encounter for therapeutic drug level monitoring Z51.81 and 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 [facility] [address] [place] [address] Aug, [facility] [id number] [place] [address] 78860- 3230 Aug, Opioid use disorder, moderate, dependence F11.20 ; 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 and Encounter for therapeutic drug level monitoring Z51.81 [facility] [id number] [place] [address] 98707- 4261 Aug, [facility] [facility] [id number] [place] [address] 90821- 9745 Aug, Non-intractable vomiting with nausea, unspecified vomiting type R11.2 [facility] [facility] [id number] [place] [address] 57986- 7939 Aug, Opioid use disorder, moderate, dependence F11.20 and Non- intractable vomiting with nausea, unspecified vomiting type R11.2 [facility] [id number] [place] [address] 39338- 9853 08 Aug, 2016 [facility] [id number] [place] [address] 98118- 6630 Aug, Opioid use disorder, moderate, dependence F11.20 [facility] [address] 81165- 3576 Aug, [facility] [address] 34364- 3967 Jul, 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 and Opioid use disorder, moderate, dependence F11.20 [facility] [address] [place] [address] Jul, [facility] [address] 11467- 5574 Jul, [facility] [address] [place] [address] 68436- 4897 Jul, [facility] [address] 54798- 6559 Jul, Addiction to drug F19.20 and Chronic kidney disease, stage 3 N18.3 [facility] [address] [place] [address] Jul, Counseling on substance use and abuse Z71.89 [facility] [address] [place], [place] [id number] [place] [phone] Jul, Chronic kidney disease, stage 3 N18.3 [facility] [id number] [place] [phone] Jul, 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 ; Diarrhea, unspecified type R19.7 and Essential hypertension I10 [facility] [id number] [place] [phone] Jul, [facility] [address] [address] Jun, [facility] [address] [address] Jun, [facility] [id number] [place] [address] 50685- 1088 Apr, 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 [facility] [id number] [place] [address] 77365- 6609 Apr, Sore throat and laryngitis J06.0 and Non-intractable vomiting with nausea, unspecified vomiting type R11.2 [facility] [id number] [address] 64[address] Apr, [facility] [id number] [place] [address] 25235- 7625 Mar, [facility] [id number] [place] [address] 28184- 8494 Jan, [facility] [id number] [place] [address] 90595- 2439 Jan, [facility] [id number] [place] [address] 63756- 7215 Jan, [facility] [id number] [place] [address] 76287- 2500 December, 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 ; Gastroparesis K31.84 ; Mixed hyperlipidemia E78.2 ; Chronic kidney disease, stage 3 N18.3 ; Dysthymia F34.1 and Acute bilateral low back pain without sciatica M54.5 [facility] [address] [address] 3[address] December, [facility] [id number] [place] [address] 20560- 4108 December, [facility] [id number] [place] [address] 04161- 1234 Aug, Depression F32.9 and Gastroparesis K31.84 [facility] [id number] [place] [address] 60267- 8929 15 Aug, 2015 Gastroparesis K31.84 [facility] [address] [address]- 4078 Jul, Recurrent UTI N39.0 ; Chronic kidney disease, stage 3 N18.3 and 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 [facility] [address] 24441- 9497 Jul, [facility] [address] [id number] Jul, Dental examination Z01.20 and Dental caries K02.9 [place] [address] [address]- 3736 17 Jul, 2015 [facility] [address] [address] -[address] Jul, Dysuria R30.0 ; Urinary tract infection N39.0 and Nausea R11.0 [facility] [address] 83066- 0724 Jun, Dysuria R30.0 [facility] [address] 80320- 0244 Jun, Dysuria R30.0 [place] [address] 76846- 5323 Jun, Dysuria R30.0 [facility] [address] 113[address]- 7777 Jun, [facility] [address] 06774- 0573 14 Jun, 2015 Acute cystitis with hematuria N30.01 [facility] [address] 57256- 3054 May, [facility] [address] 90120- 1405 Apr, Diabetes mellitus without mention of complication, type I [ juvenile type], not stated as uncontrolled 250.01 ; Gastroparesis due to DM 250.60 ; Contraception management V25.9 and Renal insufficiency 593.9 [place] [id number] [place] [address] 67226- 9325 Apr, [place] [id number] [place] [address] 35063- 8336 Apr, [place] [id number] [place] [address] 51279- 7833 Mar, [address] [address]- 3579 Mar, Hyperlipidemia 272.4 and Hypertensive heart and chronic kidney disease, benign, without heart failure and with chronic kidney disease stage I through stage IV, or unspecified [address].10 [place] [id number] [place] [address] 58314- 4556 Mar, Hyperlipidemia 272.4 ; Hyponatremia 276.1 ; 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 ; Hypertensive heart and chronic kidney disease, benign, without heart failure and with chronic kidney disease stage I through stage IV, or unspecified 404.10 ; Proteinuria 791.0 and Chronic kidney disease (CKD), stage III (moderate) 585.3 [place] [id number] [place] [address] 77720- 3736 Mar, [place] [id number] [place] [address] 10799- 6951 Mar, Elevated blood sugar level 790.29 [place] [id number] [place] [address] 49906- 0154 Mar, Low grade squamous intraepithelial lesion (LGSIL) on cervical Pap smear 795.03 [place] [id number] [place] [address] 35355- 0905 Mar, Amenorrhea 626.0 [place] [id number] [place] [address] 51095- 0494 15 Jan, 2015 Amenorrhea 626.0 ; Routine gynecological examination V72.31 and Screen for STD (sexually transmitted disease) V74.5 [facility] [address] [address]- 2856 11 Jan, 2015 Amenorrhea 626.0 [facility] [address] [address]- 7332 08 Jan, 2015 Routine gynecological examination V72.31 ; Screen for STD ( sexually transmitted disease) V74.5 ; Pap test, as part of routine gynecological examination V76.2 ; Breast cancer screening V76.10 and Amenorrhea 626.0 [facility] [address] [address]- 4207 December, [facility] [address] [address]- 3186 Dec, [facility] [address] [address]- 1924 Dec, [facility] [address] [address]- 3206 Oct, [facility] [address] [address]- 4358 Oct, [facility] [address] [address]- 0029 Oct, [facility] [address] [address]- 2414 Oct, [facility] [address] 1281 Oct, [facility] [address] [address]- 1436 Oct, [facility] [id number] [address]- 9147 Oct, [facility] [address] [address]- 9084 Oct, [facility] [place] [facility] [address] [id number] [place] [address]- 2670 Oct, [facility] [place] [facility] [address] [id number] [place] [address]- 6648 Oct, [facility] [place] [facility] [address] [id number] [place] [address]- 7176 Oct, [facility] [place] [facility] [address] [id number] [place] [address]- 4998 Sep, [facility] [place] [facility] [address] [id number] [place] [address]- 9890 Sep, [facility] [place] [facility] [address] [id number] [place] [address]- 4369 Sep, [facility] [place] [facility] [address] [id number] [address]- 2805 Sep, [facility] [place] [facility] [address] [id number] [place] [address]- 1637 Sep, [facility] [place] [facility] [address] [id number] [place] [address]- 8442 Sep, [facility] [place] [facility] [address] [id number] [place] [address]- 6418 Sep, [facility] [place] [facility] [address] [id number] [address]- 4148 Sep, [facility] [place] [facility] [address] [id number] [place] [address]- 6443 Sep, [facility] [place] [facility] [address] [id number] [place] [address]- 6291 Sep, [facility] [place] [facility] [address] [id number] [place] [address]- 2273 Sep, [facility] [place] [facility] [address] [id number] [place] [address]- 0335 Sep, [facility] [place] [facility] [address] [id number] [place] [address] 2545 08 Sep, 2014 [facility] [place] [facility] [address] [id number] [place] [address]- 5819 Sep, [facility] [place] [facility] [address] [id number] [place] [address]- 0386 Sep, [facility] [place] [facility] [address] [id number] [place] [address]- 0152 Sep, [facility] [place] [facility] [address] [id number] [place] [address]- 2221 Sep, [facility] [place] [facility] [address] [id number] [place] [address]- 9612 Sep, [facility] [place] [facility] [address] [id number] [place] [address]- 8601 Sep, [facility] [place] [facility] [address] [id number] [place] [address]- 3559 Sep, [facility] [place] [facility] [address] [id number] [place] [address]- 2887 Aug, [facility] [place] [facility] [address] [id number] [place] [address]- 3033 Aug, [facility] [place] [facility] [address] [id number] [place] [address]- 5706 Aug, [facility] [place] [facility] [address] [id number] [place] [address]- 9189 Aug, [facility] [place] [facility] [address] [id number] [place] [address]- 4030 Aug, [facility] [place] [facility] [address] [id number] [place] [address]- 7366 Aug, [facility] [place] [facility] [address] [id number] [place] [address]- 6616 Aug, [facility] [place] [facility] [address] [id number] [place] [address]- 3174 Aug, [facility] [place] [facility] [address] [id number] [place] [address]- 8878 Aug, [facility] [place] [facility] [address] [id number] [place] [address]- 8757 Aug, [facility] [place] [facility] [address] [id number] [place] 5489 Aug, [facility] [place] [facility] [address] [id number] [place] [address]- 7989 Aug, [facility] [place] [facility] [address] [id number] [place] [address]- 5920 Jul, [facility] [place] [facility] [address] [id number] [place] [address]- 3571 Jul, [facility] [place] [facility] [address] [id number] [place] [address]- 3446 Jul, [facility] [place] [facility] [address] [id number] [place] [address]- 4166 Jul, [facility] [place] [facility] [address] [id number] [place] [address]- 7965 Jul, [facility] [place] [facility] [address] [id number] [place] [address]- 4431 Jul, [facility] [place] [facility] [address] [id number] [place] [address]- 2674 Jul, [facility] [place] [facility] [address] [id number] [place] [address]- 1033 Jul, [facility] [place] [facility] [address] [id number] [place] [address]- 3392 Jul, [facility] [place] [facility] [address] [id number] [place] [address]- 1841 Jul, [facility] [place] [facility] [address] [id number] [place] [address]- 7174 Jun, [facility] [place] [facility] [address] [id number] [place] [address]- 9679 31 Jun, 2013 [facility] [place] [facility] [address] [id number] [place] [address]- 8365 30 Jun, 2014 [facility] [place] [facility] [address] [id number] [place] [address]- 6980 30 Jun, 2014 [facility] [place] [facility] [address] [id number] [place] [address]- 9029 30 Jun, 2014 [facility] [place] [facility] [address] [id number] [place] [address]- 2848 30 Jun, 2014 [facility] [place] [facility] [address] [id number] [place] [address]- 6637 15 Jun, 2014 [facility] [place] [facility] [address] [id number] [place] [address]- 8169 15 Jun, 2014 [facility] [place] [facility] [address] [id number] [place] [address]- 0172 22 May, 2013 [facility] [place] [facility] [address] [id number] [place] [address]- 5350 22 May, 2013 [facility] [place] [facility] [address] [id number] [place] [address]- 5862 18 May, 2013 [facility] [place] [facility] [address] [facility] [id number] [place] [address]- 0991 18 May, 2013 [facility] [place] [facility] [address] [id number] [place] [address]- 2543 09 May, 2013 [facility] [place] [facility] [address] [id number] [place] [address]- 2541 08 May, 2013 [facility] [place] [facility] [address] [id number] [place] [address]- 6045 02 May, 2013 [facility] [place] [facility] [address] [id number] [place] [address]- 3678 02 May, 2013 [facility] [place] [facility] [address] [id number] [place] [address]- 5346 Apr, [facility] [place] [facility] [address] [id number] [place] [address]- 2010 Apr, [facility] [place] [facility] [address] [id number] [place] [address]- 4928 Apr, [facility] [place] [facility] [address] [id number] [place] [address]- 0854 Apr, [facility] [place] [facility] [address] [id number] [place] [address]- 3077 Mar, [facility] [place] [facility] [address] [id number] [place] [address]- 4052 Mar, [facility] [place] [facility] [address] [id number] [place] [address]- 1365 Mar, [facility] [place] [facility] [address] [id number] [place] [address]- 6701 Mar, [facility] [place] [facility] [address] [id number] [place] [address]- 4970 Mar, [facility] [place] [facility] [address] [id number] [place] [address]- 9323 Mar, [facility] [place] [facility] [address] [id number] [place] [address]- 4851 Jan, [facility] [place] [facility] [address] [id number] [place] [address]- 5369 Jan, [facility] [place] [facility] [address] [id number] [place] [address]- 1101 Jan, [facility] [place] [facility] [address] [id number] [place] [address]- 6651 Jan, [facility] [place] [facility] [address] [id number] [place] [address]- 1636 Jan, [facility] [place] [facility] [address] [id number] [place] [address]- 4788 Jan, [facility] [place] [facility] [address] [id number] [place] [address]- 8858 Jan, [facility] [place] [facility] [address] [id number] [place] [address]- 7533 Jan, [facility] [place] [facility] [address] [id number] [place] [address]- 6214 Jan, [facility] [place] [facility] [address] [id number] [place] [address]- 2136 Jan, [facility] [place] [facility] [address] [id number] [place] [address]- 5727 Jan, [facility] [place] [facility] [address] [id number] [place] [address]- 9033 Jan, [facility] [place] [facility] [address] [id number] [place] [address]- 3597 December, [facility] [place] [facility] [address] [id number] [place] [address]- 9088 December, [facility] [place] [facility] [address] [id number] [place] [address]- 3376 December, [facility] [place] [facility] [address] [id number] [place] [address]- 1248 December, [facility] [place] [facility] [address] [id number] [place] [address]- 7169 Dec, [facility] [place] [facility] [address] [id number] [place] [address]- 1069 Dec, [facility] [place] [facility] [address] [id number] [place] [address]- 8022 Dec, [facility] [place] [facility] [address] [id number] [place] [address]- 1422 Dec, [facility] [place] [facility] [address] [id number] [place] [address]- 9273 Dec, [facility] [place] [facility] [address] [id number] [place] [address]- 2128 Dec, [facility] [place] [facility] [address] [id number] [place] [address]- 0155 Dec, [facility] [place] [facility] [address] [id number] [place] [address]- 6573 Dec, [facility] [place] [facility] [address] [id number] [place] [address]- 0442 Dec, [facility] [place] [facility] [address] [id number] [place] [address]- 9582 Dec, [facility] [place] [facility] [address] [id number] [place] [address]- 9515 Dec, [facility] [place] [facility] [address] [id number] [place] [address]- 1521 Dec, [facility] [place] [facility] [address] [id number] [place] [address]- 8162 Dec, [facility] [place] [facility] [address] [id number] [place] [address]- 1655 Dec, [facility] [address] [id number] [place] [address]- 7756 Oct, [facility] [place] [facility] [address] [id number] [place] [address]- 5151 Oct, [facility] [address] [id number] [place] [address]- 2531 Oct, [facility] [place] [facility] [address] [id number] [place] [address]- 8782 29 Oct, 2013 [facility] [place] [facility] [address] [id number] [place] [address]- 1037 Oct, [facility] [place] [facility] [address] [id number] [place] [address]- 1024 Oct, [facility] [place] [facility] [address] [id number] [place] [id number] Oct, [facility] [place] [facility] [address] [id number] [place] [address]- 9515 Oct, [facility] [address] [id number] [place] [address]- 4379 Oct, [facility] [address] [id number] [place] [address]- 2865 Oct, [facility] [address] [facility] [id number] [place] 2332 Sep, [facility] [address] [id number] [place] 6713 Sep, [facility] [address] [id number] [place] [address]- 2864 Sep, [facility] [address] [id number] [place] [address]- 2689 Sep, [facility] [address] [facility] [id number] [place] [address]- 9165 Sep, [facility] [address] [facility] [id number] [place] [address]- 2730 Sep, [facility] [address] [facility] [id number] [place] [address]- 4742 Aug, [facility] [address] [facility] [id number] [place] [address]- 5376 Aug, [facility] [address] [facility] [id number] [place] [address]- 9309 Jul, [facility] [address] [facility] [id number] [place] [address]- 6831 Jul, [facility] [address] [facility] [id number] [place] [address]- 4785 Jul, [facility] [address] [facility] [id number] [place] 4314 Jul, [facility] [address] [facility] [id number] [place] [address]198 Jul, IMMUNIZATIONS No Known Immunizations SOCIAL HISTORY Never Assessed REASON FOR VISIT SUBAB-FU PLAN OF CARE Activity Details Follow Up 4 Weeks Reason: VITAL SIGNS MEDICATIONS Unknown Medications RESULTS No Results PROCEDURES Procedure Date Ordered Result Body Site Psychotherapy, patient &/family, 30 minutes, established patient March 04, 2018 INSTRUCTIONS MEDICATIONS ADMINISTERED No Known Medications [...]
--- OUTSIDE RECORDS SUMMARY | 2018-08-30 20:35 | XMS REPORT ---
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 Active 81990048 Problem Chronic kidney disease, stage 3 N18.3 Active 875236922 Problem CHI I (cervical intraepithelial neoplasia I) N87.0 Active 466853363 Problem Mild episode of recurrent major depressive disorder F33.0 Active 326771647 Problem Addiction to drug F19.20 Active 107317958 Problem Essential hypertension I10 Active 45202210 Problem Opioid use disorder, severe, in sustained remission F11.21 Active 71181366 Problem Irritable bowel syndrome with constipation K58.1 Active [id number] ALLERGIES No Information ENCOUNTERS Encounter Location Date Diagnosis [facility] [id number] [place] [address] 19015- 2179 May, [facility] [address] [place] [address] May, [facility] [id number] [place] [address] 96780- 2903 Apr, [facility] [id number] [place] [address] 97643- 0479 Apr, [facility] [id number] [place] [address] 12966- 3357 Apr, [facility] [id number] [place] [address] 60835- 3132 Apr, Opioid use disorder, severe, in early remission F11.21 [facility] [id number] [place] [address] 21084 -3222 Apr, Bacterial conjunctivitis of left eye H10.9 [facility] [id number] [place] [address] 69959- 6380 Apr, [facility] [id number] [place] [address] 11984- 1897 Apr, [facility] [id number] [place] [address] 29411- 6400 Mar, Essential hypertension I10 and Irritable bowel syndrome with constipation K58.1 [facility] [id number] [place] [address] 80049- 6281 Mar, [facility] [id number] [place] [address] 35388- 3274 Mar, Chronic kidney disease, stage 3 N18.3 ; 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 ; Opioid use disorder, severe, in sustained remission F11.21 and Mixed hyperlipidemia E78.2 [facility] [id number] [place] [address] 14292- 9436 Mar, Mixed hyperlipidemia E78.2 [facility] [id number] [place] [address] 16567- 5237 Mar, Opioid use disorder, severe, in early remission F11.21 [facility] [address] [place] [address] 39731- 4657 Mar, [facility] [address] [place] [address] Mar, Opioid use disorder, severe, in sustained remission F11.21 [facility] [id number] [place] [address] 81490- 3175 Jan, Opioid use disorder, severe, in early remission F11.21 [facility] [id number] [place] [address] 99086- 7545 December, Opioid use disorder, severe, in early remission F11.21 [facility] [address] [place] [address] December, Opioid use disorder, severe, in sustained remission F11.21 [facility] [id number] [place] [address] 44631- 5524 December, Opioid use disorder, severe, in sustained remission F11.21 and 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 [facility] [id number] [place] [address] 23362- 8355 December, Opioid use disorder, severe, in early remission F11.21 [facility] [address] [place] [address] Dec, Opioid use disorder, severe, in sustained remission F11.21 [facility] [id number] [place] [address] 88511- 5261 Dec, 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 ; Unprotected sexual intercourse Z72.51 ; Pain of left thumb M79.645 ; Mixed hyperlipidemia E78.2 ; Gastroparesis K31.84 ; Essential hypertension I10 and Irritable bowel syndrome with constipation K58.1 [facility] [id number] [place] [address] 61861- 3822 Dec, Opioid use disorder, severe, in early remission F11.21 [place] [facility] [id number] [place] [address] 33030- 2048 Oct, [facility] [id number] [place] [address] 67818- 0815 Oct, Opioid use disorder, severe, in early remission F11.21 [facility] [id number] [place] [address] 31178- 1409 Oct, [facility] [id number] [place] [address] 23608- 7362 Oct, Opioid use disorder, severe, in early remission F11.21 [facility] [address] [address] 0845 Oct, [facility] [id number] [place] [address] 26864- 7063 Oct, [facility] [address] [place] [address] Oct, Opioid use disorder, severe, in sustained remission F11.21 [facility] [id number] [place] [address] 92023- 0497 Sep, [facility] [id number] [place] [address] 67498- 3982 Sep, [facility] [id number] [place] [address] 16188- 5391 Sep, Opioid use disorder, severe, in early remission F11.21 [facility] [id number] [place] [address] 11085- 4371 Aug, Opioid use disorder, severe, in early remission F11.21 [facility] [address] [place] [address] 21434- 9936 Jul, [facility] [id number] [place] [address] 18909- 7587 Jul, Chronic kidney disease, stage 3 N18.3 ; Dysthymia F34.1 and Opioid use disorder, severe, in sustained remission F11.21 [facility] [address] [place] [address] Jul, Opioid use disorder, severe, in sustained remission F11.21 [facility] [address] [address] 2121 Jul, Long-term use of high-risk medication Z79.899 and Chronic kidney disease, stage 3 N18.3 [facility] [address] [address]- 7844 Jul, Opioid use disorder, severe, 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 [facility] [id number] [place] [address] 89709- 8422 Jul, [facility] [id number] [place] [address] 13661- 7969 Jun, [facility] [id number] [place] [address] 21261- 6725 Jun, [facility] [id number] [place] [address] 87680- 1175 Jun, Opioid use disorder, moderate, dependence F11.20 and Opioid use disorder, severe, 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 [facility] [id number] [place] [address] 29813- 5519 Jun, [place] [address] 21796- 2926 Jun, Long-term use of high-risk medication Z79.899 [place] [facility] [id number] [place] [address] 30643- 1886 Jun, CHI I (cervical intraepithelial neoplasia I) N87.0 [place] [facility] [id number] [place] [address] 13085- 2015 22 May, 2017 Opioid use disorder, severe, in early remission F11.21 [facility] [id number] [place] [address] 66426- 4482 18 May, 2017 Chronic kidney disease, stage 3 N18.3 [facility] [id number] [place] [address] 35862- 7315 14 May, 2017 Chronic kidney disease, stage 3 N18.3 [facility] [address] [place] [address] 05 May, 2017 Opioid use disorder, severe, in sustained remission F11.21 [facility] [id number] [place] [address] 07700- 5182 Apr, LGSIL on Pap smear of cervix R87.612 [facility] [address] [place] [address] Apr, [facility] [address] [place] [address] 54419- 8645 Apr, Opioid use disorder, severe, in early remission F11.21 [facility] [id number] [place] [address] 58214- 7131 Apr, Opioid use disorder, severe, in early remission F11.21 [facility] [id number] [place] [address] 44952- 4907 Apr, Opioid use disorder, severe, in early remission F11.21 [place] [facility] [id number] [place] [address] 10484- 2567 18 Apr, 2017 Opioid use disorder, severe, 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 [place] [facility] [id number] [place] [address] 35828- 8846 14 Apr, 2017 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 [place] [facility] [id number] [place] [address] 35645- 7346 Apr, Opioid use disorder, severe, in early remission F11.21 [facility] [address] [place] [address] Apr, Opioid use disorder, severe, in sustained remission F11.21 [place] [id number] [place] [address] 05745- 3799 09 Apr, 2017 Opioid use disorder, severe, in early remission F11.21 [place] [id number] [place] [address] 11275- 5280 Apr, Mild episode of recurrent major depressive disorder F33.0 and Right acute serous otitis media, recurrence not specified H65.01 [facility] [id number] [place] [address] 76554- 3950 Mar, [facility] [id number] [place] [address] 22388- 7728 Mar, Opioid use disorder, severe, 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 [facility] [id number] [place] [address] 13599- 0012 Mar, [facility] [address] [place] [address] Mar, Opioid use disorder, severe, in sustained remission F11.21 [facility] [address] [place] [address] Mar, Opioid use disorder, severe, in sustained remission F11.21 [facility] [address] [address]- 8186 Mar, Opioid use disorder, severe, 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 [place] [id number] [place] [address] 71695- 6057 Jan, Opioid use disorder, severe, 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 [facility] [address] [place] [address] Jan, Opioid use disorder, severe, in sustained remission F11.21 [facility] [address] [place] [address] Jan, Opioid use disorder, severe, in sustained remission F11.21 [facility] [id number] [place] [address] 74248- 9216 Jan, Opioid use disorder, severe, 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 [facility] [address] [place] [address] Jan, Opioid use disorder, severe, in sustained remission F11.21 [facility] [address] [place] [address] [address] 2165 December, Opioid use disorder, severe, 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 [facility] [address] [place] [address] December, Opioid use disorder, severe, in sustained remission F11.21 [place] [id number] [place] [address] 21252- 6345 December, Routine gynecological examination Z01.419 and Chronic kidney disease, stage 3 N18.3 [facility] [address] [place] [address] [address]- 8283 December, Chronic kidney disease, stage 3 N18.3 ; 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 ; Gastroparesis K31.84 ; Essential hypertension I10 and Irritable bowel syndrome with constipation K58.1 [facility] [address] [place] [address] December, Opioid use disorder, severe, in sustained remission F11.21 [facility] [id number] [place] [address] 76643- 7822 December, Opioid use disorder, severe, in early remission F11.21 [facility] [address] [place] [address] December, Opioid use disorder, severe, in sustained remission F11.21 [facility] [address] 65910- 5166 December, Encounter for therapeutic drug level monitoring Z51.81 [facility] [address] [place] [address] December, Opioid use disorder, severe, in sustained remission F11.21 [facility] [address] [place] [address] Dec, Opioid use disorder, severe, in sustained remission F11.21 [facility] [id number] [place] [address] 23267- 6272 Dec, Opioid use disorder, severe, in early remission F11.21 [facility] [id number] [place] [address] 38768- 3038 Dec, [facility] [address] [place] [address] Dec, Opioid use disorder, severe, in sustained remission F11.21 [facility] [id number] [place] [address] 28826- 6837 Dec, Opioid use disorder, severe, in early remission F11.21 [facility] [address] [place] [address] Dec, Opioid use disorder, severe, in sustained remission F11.21 [facility] [id number] [place] [address] 76515- 8805 Dec, 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 [facility] [id number] [place] [address] 02167- 3724 03 Dec, 2016 Opioid use disorder, severe, in sustained remission F11.21 ; Encounter for therapeutic drug level monitoring Z51.81 and Other senior care ( 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 Z79.899 [facility] [address] [place] [address] 31 Oct, 2016 Opioid use disorder, severe, in sustained remission F11.21 [facility] [id number] [place] [address] 88361- 9856 23 Oct, 2016 Opioid use disorder, severe, in early remission F11.21 [place] [address] 25411- 9581 15 Oct, 2016 [facility] [address] [place] [address] 15 Oct, 2016 Opioid use disorder, severe, in sustained remission F11.21 [place] [id number] [place] [address] 49617- 4835 15 Oct, 2016 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 [place] [id number] [place] [address] 90568- 8762 14 Oct, 2016 Routine gynecological examination Z01.419 [place] [id number] [place] [address] 18758- 1045 07 Oct, 2016 Opioid use disorder, severe, in early remission F11.21 [facility] [id number] [place] [address] 29042- 0302 06 Oct, 2016 Opioid use disorder, severe, in early remission F11.21 [facility] [id number] [place] [address] 85724- 1979 06 Oct, 2016 Opioid use disorder, severe, in early remission F11.21 [facility] [address] [place] [address] 02 Oct, 2016 Opioid use disorder, severe, in sustained remission F11.21 [facility] [id number] [place] [address] 38896- 9152 Oct, Opioid use disorder, severe, in early remission F11.21 [facility] [id number] [place] [address] 01170- 8922 23 Oct, 2016 Opioid use disorder, severe, in early remission F11.21 [facility] [address] [place] [address] Oct, Opioid use disorder, severe, in sustained remission F11.21 [facility] [id number] [place] [address] 22544- 5908 20 Oct, 2016 Opioid use disorder, severe, in sustained remission F11.21 ; Encounter for therapeutic drug level monitoring Z51.81 and Other senior care ( 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 Z79.899 [facility] [id number] [place] [address] 03289- 2521 16 Oct, 2016 [facility] [address] [place] [address] 14 Oct, 2016 Opioid use disorder, severe, in early remission F11.21 [facility] [address] [place] [address] 10 Oct, 2016 Opioid use disorder, severe, in early remission F11.21 [facility] [id number] [place] [address] 01220- 3450 09 Oct, 2016 Opioid use disorder, severe, in early remission F11.21 [facility] [id number] [place] [address] 09750- 3356 08 Oct, 2016 [facility] [id number] [place] [address] 43664- 9129 07 Oct, 2016 [facility] [id number] [place] [address] 86212- 7737 Oct, [facility] [address] [place] [address] Oct, Opioid use disorder, severe, in early remission F11.21 [facility] [id number] [place] [address] 36336- 7310 25 Kash, 2017 Opioid use disorder, severe, in early remission F11.21 [facility] [address] [place] [address] Sep, Opioid use disorder, severe, in early remission F11.21 [facility] [id number] [place] [address] 39929- 0304 Sep, Opioid use disorder, severe, 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 ; Other senior care (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 Z79.899 and Encounter for therapeutic drug level monitoring Z51.81 [facility] [id number] [place] [address] 07648- 1096 Sep, [facility] [id number] [place] [address] 20462- 4924 Sep, [facility] [id number] [place] [address] 99208- 0248 Sep, Opioid use disorder, severe, 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 ; 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 ; Chronic kidney disease, stage 3 N18.3 ; Essential hypertension I10 and Irritable bowel syndrome with constipation K58.1 [facility] [address] [place] [address] Sep, Opioid use disorder, severe, in early remission F11.21 [facility] [address] [place] [address] Sep, Opioid use disorder, severe, in early remission F11.21 [facility] [id number] [place] [address] 61892- 1769 Sep, Opioid use disorder, moderate, dependence F11.20 [facility] [id number] [place] [address] 66966- 8037 05 Sep, 2016 Opioid use disorder, moderate, dependence F11.20 [facility] [address] [place] [address] 05 Sep, 2016 Opioid use disorder, severe, 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 [facility] [id number] [place] [address] 58097- 7106 Sep, Opioid use disorder, severe, in early remission F11.21 [facility] [address] [place] [address] Aug, Opioid use disorder, severe, in early remission F11.21 [facility] [id number] [place] [address] 69686- 924 Aug, Opioid use disorder, moderate, dependence F11.20 [facility] [id number] [place] [address] 88192 -0924 Aug, Bug bite without infection, initial encounter W57.XXXA [facility] [id number] [place] [address] 24303- 2610 Aug, Opioid use disorder, moderate, dependence F11.20 [facility] [address] [place] [address] Aug, [place] [id number] [place] [address] 39369- 1958 Aug, Opioid use disorder, severe, 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 ; 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 ; Encounter for therapeutic drug level monitoring Z51.81 and 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 [facility] [address] [place] [address] Aug, [facility] [id number] [place] [address] 61304- 3605 Aug, Opioid use disorder, moderate, dependence F11.20 ; 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 and Encounter for therapeutic drug level monitoring Z51.81 [facility] [id number] [place] [address] 21254- 5315 Aug, [place] [id number] [place] [address] 21102- 6720 Aug, Non-intractable vomiting with nausea, unspecified vomiting type R11.2 [place] [id number] [place] [address] 69019- 5527 Aug, Opioid use disorder, moderate, dependence F11.20 and Non- intractable vomiting with nausea, unspecified vomiting type R11.2 [facility] [id number] [place] [address] 21860- 9313 08 Aug, 2016 [facility] [id number] [place] [address] 02830- 7573 Aug, Opioid use disorder, moderate, dependence F11.20 [facility] [address] 59444- 0834 Aug, [facility] [address] 37144- 5688 Jul, 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 and Opioid use disorder, moderate, dependence F11.20 [facility] [address] [place] [address] Jul, [facility] [address] 22764- 6864 Jul, [facility] [address] [place] [address] 63288- 8965 Jul, [facility] [address] 52831- 0873 Jul, Addiction to drug F19.20 and Chronic kidney disease, stage 3 N18.3 [facility] [address] [place] [address] Jul, Counseling on substance use and abuse Z71.89 [facility] [address] [place], [place] [id number] [place] [phone] Jul, Chronic kidney disease, stage 3 N18.3 [facility] [id number] [place] [phone] Jul, 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 ; Diarrhea, unspecified type R19.7 and Essential hypertension I10 [facility] [id number] [place] [phone] Jul, [facility] [address] [phone] Jun, [facility] [id number] [address] Jun, [facility] [id number] [place] [phone] Apr, 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 [facility] [id number] [place] [phone] 8256 Apr, Sore throat and laryngitis J06.0 and Non-intractable vomiting with nausea, unspecified vomiting type R11.2 [facility] [address] [id number] [address] 4[address] Apr, [facility] [id number] [place] [address] 10222- 2490 Mar, [facility] [id number] [place] [address] 16935- 5699 Jan, [facility] [id number] [place] [address] 62703- 9679 Jan, [facility] [id number] [place] [address] 72403- 5934 Jan, [facility] [id number] [place] [address] 59395- 7309 December, 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 ; Gastroparesis K31.84 ; Mixed hyperlipidemia E78.2 ; Chronic kidney disease, stage 3 N18.3 ; Dysthymia F34.1 and Acute bilateral low back pain without sciatica M54.5 [facility] [address] [address] 7734 December, [facility] [id number] [place] [address] 39295- 9184 December, [facility] [id number] [place] [address] 54989- 9227 Aug, Depression F32.9 and Gastroparesis K31.84 [facility] [id number] [place] [address] 16412- 8022 15 Aug, 2015 Gastroparesis K31.84 [facility] [address] 65[address]- 7713 Jul, Recurrent UTI N39.0 ; Chronic kidney disease, stage 3 N18.3 and 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 [facility] [address] 5[address]42- 7320 Jul, [facility] [address] [id number] Jul, Dental examination Z01.20 and Dental caries K02.9 [place] [address] [address]96- 4549 17 Jul, 2015 [facility] [address] [address] -[address]12 Jul, Dysuria R30.0 ; Urinary tract infection N39.0 and Nausea R11.0 [facility] [address] [address]- 2008 Jun, Dysuria R30.0 [facility] [address] 95913- 7843 Jun, Dysuria R30.0 [place] [address] 41301- 7867 Jun, Dysuria R30.0 [facility] [address] 52250- 7052 Jun, [facility] [address] 43670- 5236 14 Jun, 2015 Acute cystitis with hematuria N30.01 [facility] [address] 08283- 4050 May, [facility] [address] 38656- 3457 Apr, Diabetes mellitus without mention of complication, type I [ juvenile type], not stated as uncontrolled 250.01 ; Gastroparesis due to DM 250.60 ; Contraception management V25.9 and Renal insufficiency 593.9 [place] [id number] [place] [address] 70054- 8406 Apr, [place] [id number] [place] [address] 46102- 2026 Apr, [place] [id number] [place] [address] 03329- 4827 Mar, [address] [address]- 0650 Mar, Hyperlipidemia 272.4 and Hypertensive heart and chronic kidney disease, benign, without heart failure and with chronic kidney disease stage I through stage IV, or unspecified [id number] [place] [address] 31973- 3255 Mar, Hyperlipidemia 272.4 ; Hyponatremia 276.1 ; 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 ; Hypertensive heart and chronic kidney disease, benign, without heart failure and with chronic kidney disease stage I through stage IV, or unspecified 404.10 ; Proteinuria 791.0 and Chronic kidney disease (CKD), stage III (moderate) 585.3 [id number] [place] [address] 81904- 1807 Mar, [id number] [place] [address] 25751- 6072 Mar, Elevated blood sugar level 790.29 [id number] [place] [address] 91517- 8835 Mar, Low grade squamous intraepithelial lesion (LGSIL) on cervical Pap smear 795.03 [id number] [place] [address] 74425- 1016 Mar, Amenorrhea 626.0 [id number] [place] [address] 95379- 6231 15 Jan, 2015 Amenorrhea 626.0 ; Routine gynecological examination V72.31 and Screen for STD (sexually transmitted disease) V74.5 [facility] [address] [address]- 8146 11 Jan, 2015 Amenorrhea 626.0 [facility] [address] [address]- 7972 08 Jan, 2015 Routine gynecological examination V72.31 ; Screen for STD ( sexually transmitted disease) V74.5 ; Pap test, as part of routine gynecological examination V76.2 ; Breast cancer screening V76.10 and Amenorrhea 626.0 [facility] [address] [address]- 9440 December, [facility] [address] [address]- 6751 Dec, [facility] [address] [address]- 3891 Dec, [facility] [address] [address]- 0511 Oct, [facility] [address] [address]- 2258 Oct, [facility] [address] [address]- 4458 Oct, [facility] [address] [address]- 3659 Oct, [facility] [address] 3137 Oct, [facility] [id number] [address]- 0185 Oct, [facility] [id number] [address]- 9436 Oct, [facility] [address] [address]- 4111 Oct, [facility] [place] [facility] [address] [id number] [place] [address]- 1385 Oct, [facility] [place] [facility] [address] [id number] [place] [address]- 7858 Oct, [facility] [place] [facility] [address] [id number] [place] [address]- 9463 Oct, [facility] [place] [facility] [address] [id number] [place] [address]- 5859 Sep, [facility] [place] [facility] [address] [id number] [place] [address]- 6401 Sep, [facility] [place] [facility] [address] [id number] [place] [address]- 4260 Sep, [facility] [place] [facility] [address] [id number] [address]- 5874 Sep, [facility] [place] [facility] [address] [id number] [place] [address]- 4364 Sep, [facility] [place] [facility] [address] [id number] [place] [address]- 0912 Sep, [facility] [place] [facility] [address] [id number] [place] [address]- 7115 Sep, [facility] [place] [facility] [address] [id number] [address]- 9698 Sep, [facility] [place] [facility] [address] [id number] [address]- 6809 Sep, [facility] [place] [facility] [address] [id number] [address]- 5836 Sep, [facility] [place] [facility] [address] [id number] [place] [address]- 1425 Sep, [facility] [place] [facility] [address] [id number] [address]- 4814 Sep, [facility] [place] [facility] [address] [id number] [place] [address] 254 08 Sep, 2014 [facility] [place] [facility] [address] [id number] [place] [address]- 3780 Sep, [facility] [place] [facility] [address] [id number] [place] [address]- 5386 Sep, [facility] [place] [facility] [address] [id number] [place] [address]- 3917 Sep, [facility] [place] [facility] [address] [id number] [place] [address]- 6214 Sep, [facility] [place] [facility] [address] [id number] [place] [address]- 6161 Sep, [facility] [place] [facility] [address] [id number] [place] [address]- 0896 Sep, [facility] [place] [facility] [address] [id number] [place] [address]- 4739 Sep, [facility] [place] [facility] [address] [id number] [place] [address]- 3023 Aug, [facility] [place] [facility] [address] [id number] [place] [address]- 3051 Aug, [facility] [place] [facility] [address] [id number] [place] [address]- 8943 Aug, [facility] [place] [facility] [address] [id number] [place] [address]- 1040 Aug, [facility] [place] [facility] [address] [id number] [place] [address]- 4851 Aug, [facility] [place] [facility] [address] [id number] [place] [address]- 3596 Aug, [facility] [place] [facility] [address] [id number] [place] [address]- 4776 Aug, [facility] [place] [facility] [address] [id number] [place] [address]- 8786 Aug, [facility] [place] [facility] [address] [id number] [place] [address]- 2104 Aug, [facility] [place] [facility] [address] [id number] [place] [address]- 3780 Aug, [facility] [place] [facility] [address] [id number] [place] 2559 Aug, [facility] [place] [facility] [address] [id number] [place] [address]- 8298 Aug, [facility] [place] [facility] [address] [id number] [place] [address]- 7742 Jul, [facility] [place] [facility] [address] [id number] [place] [address]- 6647 Jul, [facility] [place] [facility] [address] [id number] [place] [address]- 2175 Jul, [facility] [place] [facility] [address] [id number] [place] [address]- 1935 Jul, [facility] [place] [facility] [address] [id number] [place] [address]- 6816 Jul, [facility] [place] [facility] [address] [id number] [place] [address]- 2672 Jul, [facility] [place] [facility] [address] [id number] [address]- 6974 Jul, [facility] [place] [facility] [address] [id number] [address]- 9015 Jul, [facility] [place] [facility] [address] [id number] [place] [address]- 6160 Jul, [facility] [place] [facility] [address] [id number] [address]- 1117 Jul, [facility] [place] [facility] [address] [id number] [place] [address]- 0099 Jun, [facility] [place] [facility] [address] [id number] [place] [address]- 6679 31 Jun, 2013 [facility] [place] [facility] [address] [id number] [place] [address]- 2234 30 Jun, 2014 [facility] [place] [facility] [address] [id number] [place] [address]- 9114 30 Jun, 2014 [facility] [place] [facility] [address] [id number] [place] [address]- 8838 30 Jun, 2014 [facility] [place] [facility] [address] [id number] [place] [address]- 8312 30 Jun, 2014 [facility] [place] [facility] [address] [id number] [place] [address]- 3130 15 Jun, 2014 [facility] [place] [facility] [address] [id number] [place] [address]- 8522 15 Jun, 2014 [facility] [place] [facility] [address] [id number] [place] [address]- 3666 22 May, 2013 [facility] [place] [facility] [address] [id number] [place] [address]- 9343 22 May, 2013 [facility] [place] [facility] [address] [id number] [place] [address]- 6978 18 May, 2013 [facility] [place] [facility] [address] [facility] [id number] [place] [address]- 1604 18 May, 2013 [facility] [place] [facility] [address] [id number] [place] [address]- 2543 09 May, 2013 [facility] [place] [facility] [address] [id number] [place] [address]- 2544 08 May, 2013 [facility] [place] [facility] [address] [id number] [place] [address]- 7195 02 May, 2013 [facility] [place] [facility] [address] [id number] [place] [address]- 4869 02 May, 2013 [facility] [place] [facility] [address] [id number] [place] [address]- 3755 Apr, [facility] [place] [facility] [address] [id number] [place] [address]- 1242 Apr, [facility] [place] [facility] [address] [id number] [place] [address]- 7926 Apr, [facility] [place] [facility] [address] [id number] [place] [address]- 7526 Apr, [facility] [place] [facility] [address] [id number] [place] [address]- 3211 Mar, [facility] [place] [facility] [address] [id number] [place] [address]- 2145 Mar, [facility] [place] [facility] [address] [id number] [place] [address]- 7905 Mar, [facility] [place] [facility] [address] [id number] [place] [address]- 8887 Mar, [facility] [place] [facility] [address] [id number] [place] [address]- 3709 Mar, [facility] [place] [facility] [address] [id number] [place] [address]- 1938 Mar, [facility] [place] [facility] [address] [id number] [place] [address]- 0742 Jan, [facility] [place] [facility] [address] [id number] [place] [address]- 0479 Jan, [facility] [place] [facility] [address] [id number] [place] [address]- 3312 Jan, [facility] [place] [facility] [address] [id number] [place] [address]- 3806 Jan, [facility] [place] [facility] [address] [id number] [place] [address]- 2166 Jan, [facility] [place] [facility] [address] [id number] [place] [address]- 6743 Jan, [facility] [place] [facility] [address] [id number] [place] [address]- 5645 Jan, [facility] [place] [facility] [address] [id number] [place] [address]- 1870 Jan, [facility] [place] [facility] [address] [id number] [place] [address]- 6976 Jan, [facility] [place] [facility] [address] [id number] [place] [address]- 2538 Jan, [facility] [place] [facility] [address] [id number] [place] [address]- 3522 Jan, [facility] [place] [facility] [address] [id number] [place] [address]- 8904 Jan, [facility] [place] [facility] [address] [id number] [place] [address]- 6638 December, [facility] [place] [facility] [address] [id number] [place] [address]- 5192 December, [facility] [place] [facility] [address] [id number] [place] [address]- 1709 December, [facility] [place] [facility] [address] [id number] [place] [address]- 4593 December, [facility] [place] [facility] [address] [id number] [place] [address]- 5992 Dec, [facility] [place] [facility] [address] [id number] [place] [address]- 3627 Dec, [facility] [place] [facility] [address] [id number] [place] [address]- 5148 Dec, [facility] [place] [facility] [address] [id number] [place] [address]- 1804 Dec, [facility] [place] [facility] [address] [id number] [place] [address]- 8860 Dec, [facility] [place] [facility] [address] [id number] [place] [address]- 4786 Dec, [facility] [place] [facility] [address] [id number] [place] [address]- 9782 Dec, [facility] [place] [facility] [address] [id number] [place] [address]- 3888 Dec, [facility] [place] [facility] [address] [id number] [place] [address]- 6288 Dec, [facility] [place] [facility] [address] [id number] [place] [address]- 5021 Dec, [facility] [place] [facility] [address] [id number] [place] [address]- 7067 Dec, [facility] [place] [facility] [address] [id number] [place] [address]- 0643 Dec, [facility] [place] [facility] [address] [id number] [place] [address]- 2965 Dec, [facility] [place] [facility] [address] [id number] [place] [address]- 9179 Dec, [facility] [address] [id number] [place] [address]- 7724 Oct, [facility] [place] [facility] [address] [id number] [place] [address]- 8908 Oct, [facility] [address] [id number] [place] [address]- 8133 Oct, [facility] [place] [facility] [address] [id number] [place] [address]- 2961 29 Oct, 2013 [facility] [place] [facility] [address] [id number] [place] [address]- 1356 Oct, [facility] [place] [facility] [address] [id number] [place] [address]- 3493 Oct, [facility] [place] [facility] [address] [id number] [place] [id number] Oct, [facility] [place] [facility] [address] [id number] [place] [address]- 4339 Oct, [facility] [address] [id number] [address]- 1908 Oct, [facility] [address] [id number] [place] [address]- 1252 Oct, [facility] [address] [facility] [id number] [address]- 6184 Sep, [facility] [address] [id number] [place] [address]- 3400 Sep, [facility] [address] [id number] [place] [address]- 0065 Sep, [facility] [address] [id number] [place] [address]- 8301 Sep, [facility] [address] [facility] [id number] [address]- 9877 Sep, [facility] [address] [facility] [id number] [place] [address]- 1870 Sep, [facility] [address] [facility] [id number] [place] [address]- 5173 Aug, [facility] [address] [facility] [id number] [place] [address]- 7353 Aug, [facility] [address] [facility] [id number] [place] [address]- 6570 Jul, [facility] [address] [facility] [id number] [place] [address]- 4792 Jul, [facility] [address] [facility] [id number] [place] [address]- 5066 Jul, [facility] [address] [facility] [id number] [place] [address]- 2445 Jul, [facility] [address] [facility] [id number] [place] [address]- 7846 Jul, IMMUNIZATIONS No Known Immunizations SOCIAL HISTORY Never Assessed REASON FOR VISIT [employer] Upload Info PLAN OF CARE VITAL SIGNS MEDICATIONS Unknown [...]
--- OUTSIDE RECORDS SUMMARY | 2018-08-30 20:36 | XMS REPORT ---
Author Author NOEMY MORGAN [facility] Address [address] 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 Active 96026812 Problem Chronic kidney disease, stage 3 N18.3 Active 710691056 Problem CHI I (cervical intraepithelial neoplasia I) N87.0 Active 864355860 Problem Mild episode of recurrent major depressive disorder F33.0 Active 471339981 Problem Addiction to drug F19.20 Active 346246088 Problem Essential hypertension I10 Active 48802366 Problem Opioid use disorder, severe, in sustained remission F11.21 Active 71379659 Problem Irritable bowel syndrome with constipation K58.1 Active 299081738 ALLERGIES No Information ENCOUNTERS Encounter Location Date Diagnosis [facility] [id number] [place] [address] 17546- 1196 May, [facility] [id number] [place] [address] 23971- 0982 Apr, [facility] [id number] [place] [address] 95369- 0117 Apr, [facility] [id number] [place] [address] 58813- 6574 Apr, [facility] [id number] [place] [address] 50909- 7801 Apr, Opioid use disorder, severe, in early remission F11.21 [facility] [address] [place] [address] 66568 -6334 Apr, Bacterial conjunctivitis of left eye H10.9 [facility] [id number] [place] [address] 09639- 4040 Apr, [facility] [id number] [place] [address] 72070- 0640 Apr, [facility] [id number] [place] [address] 67834- 8865 Mar, Essential hypertension I10 and Irritable bowel syndrome with constipation K58.1 [facility] [id number] [place] [address] 94802- 9863 Mar, [facility] [id number] [place] [address] 98029- 6743 Mar, Chronic kidney disease, stage 3 N18.3 ; 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 ; Opioid use disorder, severe, in sustained remission F11.21 and Mixed hyperlipidemia E78.2 [facility] [id number] [place] [address] 91055- 4065 Mar, Mixed hyperlipidemia E78.2 [facility] [id number] [place] [address] 51582- 3653 Mar, Opioid use disorder, severe, in early remission F11.21 [facility] [id number] [place] [address] 36660- 5454 Mar, [facility] [address] [place] [address] Mar, Opioid use disorder, severe, in sustained remission F11.21 [facility] [id number] [place] [address] 52228- 3810 Jan, Opioid use disorder, severe, 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 [facility] [id number] [place] [address] 13014- 0113 December, Opioid use disorder, severe, 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 [facility] [address] [place] [address] December, Opioid use disorder, severe, in sustained remission F11.21 [facility] [id number] [place] [address] 99579- 7515 December, Opioid use disorder, severe, in sustained remission F11.21 and 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 [facility] [id number] [place] [address] 57339- 7114 December, Opioid use disorder, severe, in early remission F11.21 [facility] [address] [place] [address] Dec, Opioid use disorder, severe, in sustained remission F11.21 [facility] [id number] [place] [address] 40972- 8621 Dec, 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 ; Unprotected sexual intercourse Z72.51 ; Pain of left thumb M79.645 ; Mixed hyperlipidemia E78.2 ; Gastroparesis K31.84 ; Essential hypertension I10 and Irritable bowel syndrome with constipation K58.1 [facility] [id number] [place] [address] 74109- 4901 Dec, Opioid use disorder, severe, in early remission F11.21 [facility] [id number] [place] [address] 50032- 9960 Oct, [facility] [id number] [place] [address] 49278- 2993 Oct, Opioid use disorder, severe, 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 [facility] [id number] [place] [address] 21595- 6807 Oct, [facility] [id number] [place] [address] 76526- 4939 Oct, Opioid use disorder, severe, 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 [facility] [id number] [place] [address] 08969- 2088 Oct, [facility] [address] [address] 7606 Oct, [facility] [address] [place] [address] Oct, Opioid use disorder, severe, in sustained remission F11.21 [facility] [address] [address] 8886 Sep, [facility] [id number] [place] [address] 15364- 3244 Sep, [facility] [id number] [place] [address] 09989- 7339 Sep, Opioid use disorder, severe, in early remission F11.21 [facility] [id number] [place] [address] 57063- 1114 Aug, Opioid use disorder, severe, in early remission F11.21 [facility] [id number] [place] [address] 15667- 8293 Jul, [facility] [id number] [place] [address] 36120- 7018 Jul, Chronic kidney disease, stage 3 N18.3 ; Dysthymia F34.1 and Opioid use disorder, severe, in sustained remission F11.21 [facility] [address] [place] [address] Jul, Opioid use disorder, severe, in sustained remission F11.21 [facility] [address] [place] [address] 35232- 1832 Jul, Long-term use of high-risk medication Z79.899 and Chronic kidney disease, stage 3 N18.3 [facility] [id number] [place] [address] 05375- 2719 Jul, Opioid use disorder, severe, 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 [facility] [address] [place] [address] 12326- 2718 Jul, [facility] [id number] [place] [address] 41286- 5320 Jun, [facility] [id number] [place] [address] 28201- 3661 Jun, [facility] [id number] [place] [address] 02082- 1474 Jun, Opioid use disorder, moderate, dependence F11.20 and Opioid use disorder, severe, 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 [facility] [id number] [place] [address] 43484- 7821 Jun, [place] [address] 59142- 0045 Jun, Long-term use of high-risk medication Z79.899 [place] [facility] [id number] [place] [address] 67995- 9350 Jun, CHI I (cervical intraepithelial neoplasia I) N87.0 [facility] [id number] [place] [address] 19569- 6139 May, Opioid use disorder, severe, 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 [facility] [id number] [place] [address] 73897- 2254 18 May, 2017 Chronic kidney disease, stage 3 N18.3 [facility] [id number] [place] [address] 98838- 4317 14 May, 2017 Chronic kidney disease, stage 3 N18.3 [facility] [address] [place] [address] 05 May, 2017 Opioid use disorder, severe, in sustained remission F11.21 [place] [id number] [place] [address] 57848- 0121 Apr, LGSIL on Pap smear of cervix R87.612 [facility] [address] [place] [address] Apr, [facility] [id number] [place] [address] 99011- 0847 Apr, Opioid use disorder, severe, in early remission F11.21 [facility] [address] [place] [address] 76045- 0561 Apr, Opioid use disorder, severe, in early remission F11.21 [facility] [id number] [place] [address] 82740- 8898 Apr, Opioid use disorder, severe, in early remission F11.21 [facility] [id number] [place] [address] 45440- 2487 18 Apr, 2017 Opioid use disorder, severe, 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 [facility] [id number] [place] [address] 86874- 4862 14 Apr, 2017 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0 and Right acute serous otitis media, recurrence not specified H65.01 [facility] [address] [place] [address] 57669- 5998 Mar, [facility] [id number] [place] [address] 99989- 9698 Mar, Opioid use disorder, severe, 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 [facility] [id number] [place] [address] 81376- 5518 Mar, [facility] [address] [place] [address] Mar, Opioid use disorder, severe, in sustained remission F11.21 [facility] [address] [place] [address] Mar, Opioid use disorder, severe, in sustained remission F11.21 [facility] [address] [address]- 8584 Mar, Opioid use disorder, severe, 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 [place] [id number] [place] [address] 11940- 3179 Jan, Opioid use disorder, severe, 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 [facility] [address] [place] [address] Jan, Opioid use disorder, severe, in sustained remission F11.21 [facility] [address] [place] [address] Jan, Opioid use disorder, severe, in sustained remission F11.21 [place] [id number] [place] [address] 03616- 4443 Jan, Opioid use disorder, severe, 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 [facility] [address] [place] [address] Jan, Opioid use disorder, severe, in sustained remission F11.21 [address] [place] [address] 46744- 2084 December, Opioid use disorder, severe, 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 [facility] [address] [place] [address] December, Opioid use disorder, severe, in sustained remission F11.21 [address] [place] [address] 33845- 3123 December, Routine gynecological examination Z01.419 and Chronic kidney disease, stage 3 N18.3 [address] [place] [address] 97535- 2926 December, Chronic kidney disease, stage 3 N18.3 ; 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 ; Gastroparesis K31.84 ; Essential hypertension I10 and Irritable bowel syndrome with constipation K58.1 [facility] [address] [place] [address] December, Opioid use disorder, severe, in sustained remission F11.21 [facility] [id number] [place] [address] 44509- 3467 December, Opioid use disorder, severe, 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 [facility] [address] [place] [address] December, Opioid use disorder, severe, in sustained remission F11.21 [facility] [id number] [place] [address] 40259- 0106 December, Encounter for therapeutic drug level monitoring Z51.81 [facility] [address] [place] [address] December, Opioid use disorder, severe, in sustained remission F11.21 [facility] [address] [place] [address] Dec, Opioid use disorder, severe, in sustained remission F11.21 [facility] [id number] [place] [address] 81078- 3677 Dec, Opioid use disorder, severe, in early remission F11.21 [facility] [id number] [place] [address] 66215- 3705 Dec, [facility] [address] [place] [address] Dec, Opioid use disorder, severe, in sustained remission F11.21 [facility] [id number] [place] [address] 89494- 4576 Dec, Opioid use disorder, severe, in early remission F11.21 [facility] [address] [place] [address] Dec, Opioid use disorder, severe, in sustained remission F11.21 [facility] [id number] [place] [address] 75615- 2197 Dec, 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 [facility] [id number] [place] [address] 16266- 3572 Dec, Opioid use disorder, severe, in sustained remission F11.21 ; Encounter for therapeutic drug level monitoring Z51.81 and Other nursing 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.899 [facility] [address] [place] [address] 31 Oct, 2016 Opioid use disorder, severe, in sustained remission F11.21 [facility] [id number] [place] [address] 83087- 2694 23 Oct, 2016 Opioid use disorder, severe, in early remission F11.21 [facility] [address] 62750- 8791 15 Oct, 2016 [facility] [address] [place] [address] 15 Oct, 2016 Opioid use disorder, severe, in sustained remission F11.21 [place] [facility] [id number] [place] [address] 77527- 1910 15 Oct, 2016 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 [facility] [id number] [place] [address] 80065- 0604 14 Oct, 2016 Routine gynecological examination Z01.419 [place] [facility] [id number] [place] [address] 68923- 2269 07 Oct, 2016 Opioid use disorder, severe, in early remission F11.21 [facility] [id number] [place] [address] 30216- 3449 06 Oct, 2016 Opioid use disorder, severe, in early remission F11.21 [facility] [id number] [place] [address] 20397- 2823 06 Oct, 2016 Opioid use disorder, severe, in early remission F11.21 [facility] [address] [place] [address] 02 Oct, 2016 Opioid use disorder, severe, in sustained remission F11.21 [facility] [id number] [place] [address] 80506- 9598 Oct, Opioid use disorder, severe, in early remission F11.21 [facility] [address] [place] [address]- 9188 23 Oct, 2016 Opioid use disorder, severe, in early remission F11.21 [facility] [address] [place] [address] Oct, Opioid use disorder, severe, in sustained remission F11.21 [facility] [id number] [place] [address] 77927- 3269 Oct, Opioid use disorder, severe, in sustained remission F11.21 ; Encounter for therapeutic drug level monitoring Z51.81 and 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 [facility] [id number] [place] [address] 30342- 2096 16 Oct, 2016 [facility] [address] [place] [address] 14 Oct, 2016 Opioid use disorder, severe, in early remission F11.21 [facility] [address] [place] [address] 10 Oct, 2016 Opioid use disorder, severe, in early remission F11.21 [facility] [id number] [place] [address] 90333- 4141 09 Oct, 2016 Opioid use disorder, severe, in early remission F11.21 [facility] [id number] [place] [address] 87882- 8405 08 Oct, 2016 [facility] [id number] [place] [address] 17182- 7850 07 Oct, 2016 [facility] [id number] [place] [address] 13000- 254 Oct, [facility] [address] [place] [address] Oct, Opioid use disorder, severe, in early remission F11.21 [facility] [id number] [place] [address] 80731- 1064 Sep, Opioid use disorder, severe, in early remission F11.21 [facility] [address] [place] [address] Sep, Opioid use disorder, severe, in early remission F11.21 [address] [place] [address] 51226- 9544 Sep, Opioid use disorder, severe, 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 ; 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 and Encounter for therapeutic drug level monitoring Z51.81 [place] [id number] [place] [address] 83347- 8403 Sep, [place] [id number] [place] [address] 69401- 1553 Sep, [address] 74206- 5974 Sep, Opioid use disorder, severe, 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 ; 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 ; Chronic kidney disease, stage 3 N18.3 ; Essential hypertension I10 and Irritable bowel syndrome with constipation K58.1 [facility] [address] [place] [address] Sep, Opioid use disorder, severe, in early remission F11.21 [facility] [address] [place] [address] Sep, Opioid use disorder, severe, 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 [place] [id number] [place] [address] 55151- 5501 Sep, Opioid use disorder, moderate, dependence F11.20 [place] [id number] [place] [address] 17603- 5699 05 Sep, 2016 Opioid use disorder, moderate, dependence F11.20 [facility] [address] [place] [address] Sep, Opioid use disorder, severe, 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 [place] [id number] [place] [address] 38990- 3202 Sep, Opioid use disorder, severe, in early remission F11.21 [facility] [address] [place] [address] Aug, Opioid use disorder, severe, in early remission F11.21 [facility] [id number] [place] [address] 52711- 2789 Aug, Opioid use disorder, moderate, dependence F11.20 [facility] [id number] [place] [address] 36327 [address]0423 Aug, Bug bite without infection, initial encounter W57.XXXA [facility] [id number] [place] [address] 95219- 6327 Aug, Opioid use disorder, moderate, dependence F11.20 [facility] [address] [place] [address] Aug, [facility] [id number] [place] [address] 68192- 6082 Aug, Opioid use disorder, severe, 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 ; 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 ; Encounter for therapeutic drug level monitoring Z51.81 and 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 [facility] [address] [place] [address] Aug, [facility] [address] 17202- 2567 Aug, Opioid use disorder, moderate, dependence F11.20 ; 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 and Encounter for therapeutic drug level monitoring Z51.81 [facility] [id number] [place] [address] 62280- 2315 Aug, [facility] [id number] [place] [address] 40404- 7988 Aug, Non-intractable vomiting with nausea, unspecified vomiting type R11.2 [facility] [id number] [place] [address] 67157- 0518 Aug, Opioid use disorder, moderate, dependence F11.20 and Non- intractable vomiting with nausea, unspecified vomiting type R11.2 [facility] [id number] [place] [address] 81304- 1422 08 Aug, 2016 [facility] [id number] [place] [address] 68988- 2700 Aug, Opioid use disorder, moderate, dependence F11.20 [facility] [id number] [place] [address] 25400- 6677 Aug, [facility] [id number] [place] [address] 28139- 9143 Jul, 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 and Opioid use disorder, moderate, dependence F11.20 [facility] [address] [place] [address] Jul, [facility] [id number] [place] [address] 76831- 8821 Jul, [facility] [id number] [place] [address] 90574- 0431 Jul, [facility] [id number] [place] [address] 34951- 9112 Jul, Addiction to drug F19.20 and Chronic kidney disease, stage 3 N18.3 [facility] [address] [place] [address] Jul, Counseling on substance use and abuse Z71.89 [facility] [id number] [place] [address] 57696- 3611 Jul, Chronic kidney disease, stage 3 N18.3 [facility] [id number] [place] [address] [phone]- 5759 Jul, 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 ; Diarrhea, unspecified type R19.7 and Essential hypertension I10 [facility] [id number] [place] [address] [phone]- [phone] Jul, [facility] [id number] [place] [address] [phone] Jun, [facility] [address] [address] Jun, [facility] [id number], [place] [address] Apr, 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 [facility] [id number] [place] [address]41- [phone] Apr, Sore throat and laryngitis J06.0 and Non-intractable vomiting with nausea, unspecified vomiting type R11.2 [facility] [id number] [address] Apr, [facility] [id number] [place] [address] [phone]- [phone] Mar, [facility] [id number] [place] [address] [phone]- 8728 Jan, [facility] [id number] [place] [address] [phone]- [phone] Jan, [facility] [id number] [place] [address] 79036- 9142 Jan, [facility] [id number] [place] [address] 79074- 5438 December, 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 ; Gastroparesis K31.84 ; Mixed hyperlipidemia E78.2 ; Chronic kidney disease, stage 3 N18.3 ; Dysthymia F34.1 and Acute bilateral low back pain without sciatica M54.5 [facility] [id number], [place] [address] December, [facility] [facility] [id number] [place] [address] 58221- 7022 December, [facility] [facility] [id number] [place] [address] 57037- 5435 Aug, Depression F32.9 and Gastroparesis K31.84 [facility] [id number] [place] [address] 63702- 6295 Aug, Gastroparesis K31.84 [facility] [id number] [place] [address] 44214- 0997 Jul, Recurrent UTI N39.0 ; Chronic kidney disease, stage 3 N18.3 and 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 [id number] [place] [address] 97037 -6318 Jul, Dysuria R30.0 ; Urinary tract infection N39.0 and Nausea R11.0 [facility] [address] 64615- 3379 Jun, Dysuria R30.0 [facility] [address] 99259- 1980 Jun, Dysuria R30.0 [facility] [address] 45531- 9018 Jun, Dysuria R30.0 [facility] [id number] [place] [address] 61921- 9386 Jun, [facility] [id number] [place] [address] 62602- 4928 Jun, Acute cystitis with hematuria N30.01 [facility] [facility] [address] 28665- 5199 May, [facility] [facility] [id number] [place] [address] 06430- 9673 Apr, Diabetes mellitus without mention of complication, type I [ juvenile type], not stated as uncontrolled 250.01 ; Gastroparesis due to DM 250.60 ; Contraception management V25.9 and Renal insufficiency 593.9 [id number] [place] [address] 73146- 4265 Apr, [place] [id number] [place] [address] 15768- 6343 Apr, [address] [address]- 1518 Mar, [id number] [place] [address] 53543- 3469 Mar, Hyperlipidemia 272.4 and Hypertensive heart and chronic kidney disease, benign, without heart failure and with chronic kidney disease stage I through stage IV, or unspecified 404.10 [id number] [place] [address] 06770- 2353 Mar, Hyperlipidemia 272.4 ; Hyponatremia 276.1 ; 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 ; Hypertensive heart and chronic kidney disease, benign, without heart failure and with chronic kidney disease stage I through stage IV, or unspecified 404.10 ; Proteinuria 791.0 and Chronic kidney disease (CKD), stage III (moderate) 585.3 [id number] [place] [address] 40050- 0803 Mar, [address] [id number] [place] [address] 14860- 4972 Mar, Elevated blood sugar level 790.29 [id number] [place] [address] 92217- 8583 Mar, Low grade squamous intraepithelial lesion (LGSIL) on cervical Pap smear 795.03 [id number] [place] [address] 01555- 5226 Mar, Amenorrhea 626.0 [address] [address] [id number] [place] [address] 83125- 0728 Jan, Amenorrhea 626.0 ; Routine gynecological examination V72.31 and Screen for STD (sexually transmitted disease) V74.5 [facility] [address] [facility] [id number], [place] [address]- 0548 11 Jan, 2015 Amenorrhea 626.0 [facility] [address] [facility] [id number], [place] [address]- 5076 08 Jan, 2015 Routine gynecological examination V72.31 ; Screen for STD ( sexually transmitted disease) V74.5 ; Pap test, as part of routine gynecological examination V76.2 ; Breast cancer screening V76.10 and Amenorrhea 626.0 [facility] [facility] [address] [facility] [id number], [place] [address]- 7122 13 Dec, 2014 [facility] [facility] [address] [facility] [id number], [place] [address]- 6071 Dec, [facility] [facility] [address], [place] [address]- 2857 Dec, [facility] [facility] [address] [id number], [place] [address]- 5660 Oct, [facility] [facility] [address] [id number], [place] [address]- 9578 Oct, [facility] [facility] [address] [id number] 5896 Oct, [facility] [facility] [address] [id number], [place] [address]- 8488 Oct, [facility] [facility] [address] [facility] [id number], [place] [address]- 8922 Oct, [facility] [facility] [address] [facility] [id number], [place] [address]- 1294 Oct, [facility] [facility] [address] [facility] [id number], [place] [address]- 4646 Oct, [facility] [facility] [address] [id number], [place] [address] 2546 Oct, [facility] [facility] [id number] [place] [address]- 0237 Oct, [facility] [address] [id number] [place] [address]- 1085 Oct, [facility] [place] [facility] [address] [id number] [place] [address]- 3103 Oct, [facility] [place] [facility] [address] [id number] [place] [address]- 1353 Sep, [facility] [place] [facility] [address] [id number] [place] [address]- 8490 Sep, [facility] [place] [facility] [address] [id number] [place] [address]- 1009 Sep, [facility] [place] [facility] [address] [id number] [place] [address]- 7511 Sep, [facility] [place] [facility] [address] [id number] [place] [address]- 1598 Sep, [facility] [place] [facility] [address] [id number] [place] [address]- 1558 16 Sep, 2014 [facility] [place] [facility] [address] [id number] [place] [address]- 1442 Sep, [facility] [place] [facility] [address] [id number] [place] [address]- 2200 15 Sep, 2014 [facility] [place] [facility] [address] [id number] [place] [address]- 4472 15 Sep, 2014 [facility] [place] [facility] [address] [id number] [place] [address]- 0566 15 Sep, 2014 [facility] [place] [facility] [address] [id number] [place] [address]- 4171 Sep, [facility] [place] [facility] [address] [id number] [place] [address]- 4956 Sep, [facility] [place] [facility] [address] [id number] [place] [address]- 0772 Sep, [facility] [place] [facility] [address] [id number] [place] [address]- 4390 Sep, [facility] [place] [facility] [address] [id number] [place] [address]- 6739 Sep, [facility] [place] [facility] [address] [id number] [place] [address]- 1508 Sep, [facility] [place] [facility] [address] [id number] [place] [address]- 3606 Sep, [facility] [place] [facility] [address] [id number] [place] [address]- 9474 Sep, [facility] [place] [facility] [address] [id number] [place] [address]- 4828 Sep, [facility] [place] [facility] [address] [id number] [place] [address]- 7849 Sep, [facility] [place] [facility] [address] [id number] [place] [address]- 0661 Aug, [facility] [place] [facility] [address] [id number] [place] [address]- 2967 Aug, [facility] [place] [facility] [address] [id number] [place] [address]- 9053 Aug, [facility] [place] [facility] [address] [id number] [place] [address]- 8401 Aug, [facility] [place] [facility] [address] [id number] [place] [address]- 6395 Aug, [facility] [place] [facility] [address] [id number] [place] [address]- 5796 Aug, [facility] [place] [facility] [address] [id number] [place] [address]- 8963 Aug, [facility] [place] [facility] [address] [id number] [place] [address]- 2267 Aug, [facility] [place] [facility] [address] [id number] [place] [address]- 9883 Aug, [facility] [place] [facility] [address] [id number] [place] [address]- 8175 Aug, [facility] [place] [facility] [address] [id number] [place] [address]- 5486 Aug, [facility] [place] [facility] [address] [id number] [place] [address]- 4651 Aug, [facility] [place] [facility] [address] [id number] [place] [address]- 9441 Jul, [facility] [place] [facility] [address] [id number] [place] [address]- 7418 Jul, [facility] [place] [facility] [address] [id number] [place] [address]- 9651 Jul, [facility] [place] [facility] [address] [id number] [place] [address]- 1227 Jul, [facility] [place] [facility] [address] [id number], [place] [address]- 1334 Jul, [facility] [place] [facility] [address] [id number] [place] [address]- 0645 Jul, [facility] [place] [facility] [address] [facility] [id number] [place] [address]- 2031 Jul, [facility] [place] [facility] [address] [id number] [place] [address]- 3009 Jul, [facility] [place] [facility] [address] [id number], [place] [address]- 5391 Jul, [facility] [place] [facility] [address] [id number], [place] [address]- 1753 Jul, [facility] [place] [facility] [address] [id number] [place] [address]- 3755 Jun, [facility] [place] [facility] [address] [id number], [place] [address]- 2023 Jun, [facility] [place] [facility] [address] [id number] [place] [address]- 4192 30 Jun, 2014 [facility] [place] [facility] [address] [id number] [place] [address]- 3225 30 Jun, 2014 [facility] [place] [facility] [address] [id number] [place] [address]- 7047 30 Jun, 2014 [facility] [place] [facility] [address] [id number] [place] [address]- 9239 30 Jun, 2014 [facility] [place] [facility] [address] [id number] [place] [address]- 4223 15 Jun, 2014 [facility] [place] [facility] [address] [id number] [place] [address]- 1269 15 Jun, 2014 [facility] [place] [facility] [address] [id number] [place] [address]- 3603 22 May, 2014 [facility] [place] [facility] [address] [id number] [place] [address]- 2310 22 May, 2014 [facility] [place] [facility] [address] [id number] [place] [address]- 9965 18 May, 2014 [facility] [place] [facility] [address] [id number] [place] [address]- 4864 18 May, 2013 [facility] [place] [facility] [address] [id number] [place] [address]- 5505 09 May, 2014 [facility] [place] [facility] [address] [id number] [place] [address]- 4460 08 May, 2013 [facility] [place] [facility] [address] [id number] [place] [address] 2545 02 May, 2014 [facility] [place] [facility] [address] [id number] [place] [address] 2546 May, [facility] [place] [facility] [address] [id number] [place] [address]- 6108 Apr, [facility] [place] [facility] [address] [id number] [place] [address]- 0258 Apr, [facility] [place] [facility] [address] [id number] [place] [address]- 2208 Apr, [facility] [place] [facility] [address] [id number] [place] [address]- 4020 Apr, [facility] [place] [facility] [address] [id number] [place] [address]- 5909 Mar, [facility] [place] [facility] [address] [id number] [place] [address]- 0928 Mar, [facility] [place] [facility] [address] [id number] [place] [address]- 0620 Mar, [facility] [place] [facility] [address] [id number] [place] [address]- 8626 Mar, [facility] [place] [facility] [address] [id number] [place] [address]- 6192 Mar, [facility] [place] [facility] [address] [id number] [place] [address]- 5128 Mar, [facility] [place] [facility] [address] [id number] [place] [address]- 5375 Jan, [facility] [place] [facility] [address] [id number] [place] [address]- 6805 Jan, [facility] [place] [facility] [address] [id number] [place] [address]- 8109 Jan, [facility] [place] [facility] [address] [id number] [place] [address]- 2494 Jan, [facility] [place] [facility] [address] [id number] [place] [address]- 7114 Jan, [facility] [place] [facility] [address] [id number] [place] [address]- 9441 Jan, [facility] [place] [facility] [address] [id number] [place] [address]- 0138 Jan, [facility] [place] [facility] [address] [id number] [place] [address]- 2777 Jan, [facility] [place] [facility] [address] [id number] [place] [address]- 8260 Jan, [facility] [place] [facility] [address] [id number] [place] [address]- 3233 Jan, [facility] [place] [facility] [address] [id number] [place] [address]- 1934 Jan, [facility] [place] [facility] [address] [id number] [place] [address]- 0254 Jan, [facility] [place] [facility] [address] [id number] [place] [address]- 5850 December, [facility] [place] [facility] [address] [id number] [place] [address]- 0773 December, [facility] [place] [facility] [address] [id number] [place] [address]- 0986 December, [facility] [place] [facility] [address] [id number] [place] [address]- 5982 December, [facility] [place] [facility] [address] [id number] [place] [address]- 7586 Dec, [facility] [place] [facility] [address] [id number] [place] [address]- 0846 Dec, [facility] [place] [facility] [address] [id number] [place] [address]- 4045 Dec, [facility] [place] [facility] [address] [id number] [place] [address]- 8512 Dec, [facility] [place] [facility] [address] [id number] [place] [address]- 4658 Dec, [facility] [place] [facility] [address] [id number] [place] [address]- 9102 Dec, [facility] [place] [facility] [address] [id number] [place] [address]- 3578 Dec, [facility] [place] [facility] [address] [id number] [place] [address]- 0636 Dec, [facility] [place] [facility] [address] [id number] [place] 2385 Dec, [facility] [place] [facility] [address] [id number] [place] [address]- 5365 Dec, [facility] [place] [facility] [address] [id number] [place] [address]- 3581 Dec, [facility] [place] [facility] [address] [id number] [place] [address]- 8803 Dec, [facility] [place] [facility] [address] [id number] [place] [address]- 6654 Dec, [facility] [place] [facility] [address] [id number] [place] [address]- 6301 Dec, [facility] [place] [facility] [address] [id number] [place] [address]- 9652 Oct, [facility] [place] [facility] [address] [id number] [place] [address]- 7045 Oct, [facility] [place] [facility] [address] [id number] [place] [address]- 0436 Oct, [facility] [place] [facility] [address] [id number] [place] [address]- 7678 29 Oct, 2013 [facility] [place] [facility] [address] [id number] [place] [address]- 4414 Oct, [facility] [place] [facility] [address] [id number] [place] [address]- 2535 28 Oct, 2013 [facility] [place] [facility] [address] [id number] [place] [id number] Oct, [facility] [place] [facility] [address] [id number] [place] [address]- 5326 27 Oct, 2013 [facility] [place] [facility] [address] [id number], [place] [address]- 8636 Oct, [facility] [place] [facility] [address] [id number], [place] [address]- 1765 Oct, [facility] [place] [facility] [address], [place] [address]- 2197 Sep, [facility] [place] [facility] [address], [place] [address]- 3249 Sep, [facility] [place] [facility] [address], [place] [address]- 0878 Sep, [facility] [place] [facility] [address] [id number], [place] [address]- 2943 Sep, [facility] [place] [facility] [address], [place] [address]- 0157 Sep, [facility] [place] [facility] [address], [place] [address]- 7012 Sep, [facility] [place] [facility] [address], [place] [address]- 1031 Aug, [facility] [place] [facility] [address], [place] [address]- 2690 Aug, [facility] [place] [facility] [address], [place] [address]- 5792 Jul, [facility] [place] [facility] [address] [id number], [place] [address]- 9731 Jul, [facility] [place] [facility] [address] [id number], [place] [address]- 8761 Jul, [facility] [place] [facility] [address] [id number] 0571 Jul, [facility] [place] [facility] [address], [place] [address]- 0822 Jul, IMMUNIZATIONS No Known Immunizations SOCIAL HISTORY Never Assessed REASON FOR VISIT Suboxone rx (02/27-03/26) PLAN OF CARE VITAL SIGNS MEDICATIONS Medication [...]
--- OUTSIDE RECORDS SUMMARY | 2018-08-30 20:37 | XMS REPORT ---
Author Author NOEMY MORGAN Organization [facility] Address [address] 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 Active 24084726 Problem Chronic kidney disease, stage 3 N18.3 Active 789188326 Problem CHI I (cervical intraepithelial neoplasia I) N87.0 Active 679008889 Problem Mild episode of recurrent major depressive disorder F33.0 Active 338324009 Problem Addiction to drug F19.20 Active 639996883 Problem Essential hypertension I10 Active 06087726 Problem Opioid use disorder, severe, in sustained remission F11.21 Active 82926872 Problem Irritable bowel syndrome with constipation K58.1 Active 732629273 ALLERGIES Substance Reaction Event Type Date Status Penicillin V Potassium rash Drug Allergy December, Active Cipro nausea and vomiting Drug Allergy December, Active Bactrim DS rash Drug Allergy December, Active ENCOUNTERS Encounter Location Date Diagnosis [facility] [id number] [address] Mar, Essential hypertension I10 and Irritable bowel syndrome with constipation K58.1 [facility] [id number] [place] [address] 17040- 3560 Mar, [facility] [id number] [address] Mar, Chronic kidney disease, stage 3 N18.3 ; 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 ; Opioid use disorder, severe, in sustained remission F11.21 and Mixed hyperlipidemia E78.2 [facility] [id number] [place] [address] 44577- 4757 Mar, Mixed hyperlipidemia E78.2 [facility] [id number] [place] [address] 01514- 4136 Mar, Opioid use disorder, severe, in early remission F11.21 [facility] [id number] [place] [address] 04055- 9467 Mar, [facility] [address] [place] [address] Mar, Opioid use disorder, severe, in sustained remission F11.21 [facility] [id number] [place] [address] 58928- 2272 Jan, Opioid use disorder, severe, 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 [facility] [id number] [place] [address] 45403- 3513 December, Opioid use disorder, severe, in early remission F11.21 [facility] [address] [place] [address] December, Opioid use disorder, severe, in sustained remission F11.21 [facility] [id number] [place] [address] 37554- 6830 December, Opioid use disorder, severe, in sustained remission F11.21 and 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 [facility] [id number] [place] [address] 56355- 5007 December, Opioid use disorder, severe, in early remission F11.21 [facility] [address] [place] [address] Dec, Opioid use disorder, severe, in sustained remission F11.21 [facility] [id number] [place] [address] 78968- 5511 Dec, 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 ; Unprotected sexual intercourse Z72.51 ; Pain of left thumb M79.645 ; Mixed hyperlipidemia E78.2 ; Gastroparesis K31.84 ; Essential hypertension I10 and Irritable bowel syndrome with constipation K58.1 [facility] [id number] [place] [address] 85999- 5673 Dec, Opioid use disorder, severe, in early remission F11.21 [facility] [id number] [place] [address] 34037- 0181 Oct, [facility] [id number] [place] [address] 97994- 0123 Oct, Opioid use disorder, severe, in 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 [facility] [address] 12772- 1210 Oct, [facility] [id number] [place] [address] 70238- 8897 Oct, Opioid use disorder, severe, in early remission F11.21 [facility] [id number] [place] [address] 73583- 1640 Oct, [facility] [id number] [place] [address] 02436- 3513 Oct, [facility] [address] [place] [address] Oct, Opioid use disorder, severe, in sustained remission F11.21 [facility] [id number] [place] [address] 13160- 1674 Sep, [facility] [id number] [place] [address] 91043- 7356 Sep, [facility] [id number] [place] [address] 68881- 8530 Sep, Opioid use disorder, severe, in early remission F11.21 [facility] [id number] [place] [address] 84958- 0852 Aug, Opioid use disorder, severe, 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 [facility] [address] [place] [address] 3[address] Jul, [facility] [id number] [place] [address] 86201- 9107 Jul, Chronic kidney disease, stage 3 N18.3 ; Dysthymia F34.1 and Opioid use disorder, severe, in sustained remission F11.21 [facility] [address] [place] [address] Jul, Opioid use disorder, severe, in sustained remission F11.21 [facility] [id number] [place] [address] 80992- 8493 Jul, Long-term use of high-risk medication Z79.899 and Chronic kidney disease, stage 3 N18.3 [facility] [id number] [place] [address] 52851- 9866 Jul, Opioid use disorder, severe, 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 [facility] [id number] [place] [address] 01752- 4150 Jul, [facility] [id number] [place] [address] 39316- 2951 Jun, [facility] [id number] [place] [address] 81525- 7779 Jun, [facility] [id number] [place] [address] 41744- 3410 Jun, Opioid use disorder, moderate, dependence F11.20 and Opioid use disorder, severe, 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 [facility] [id number] [place] [address] 61450- 8677 Jun, [facility] [id number] [place] [address] 49300- 6521 Jun, Long-term use of high-risk medication Z79.899 [facility] [id number] [place] [address] 19063- 7665 Jun, CHI I (cervical intraepithelial neoplasia I) N87.0 [place] [id number] [place] [address] 20386- 3416 May, Opioid use disorder, severe, 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 [facility] [id number] [place] [address] 51309- 0302 18 May, 2017 Chronic kidney disease, stage 3 N18.3 [facility] [id number] [place] [address] 84304- 3583 14 May, 2017 Chronic kidney disease, stage 3 N18.3 [facility] [address] [place] [address] 05 May, 2017 Opioid use disorder, severe, in sustained remission F11.21 [facility] [id number] [place] [address] 23139- 7149 Apr, LGSIL on Pap smear of cervix R87.612 [facility] [address] [place] [address] Apr, [facility] [id number] [place] [address] 19089- 2068 Apr, Opioid use disorder, severe, in early remission F11.21 [facility] [id number] [place] [address] 01910- 1285 Apr, Opioid use disorder, severe, 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 [facility] [id number] [place] [address] 94088- 2716 Apr, Opioid use disorder, severe, in early remission F11.21 [facility] [id number] [place] [address] 16722- 4053 18 Apr, 2017 Opioid use disorder, severe, in early remission F11.21 [facility] [id number] [place] [address] 86733- 8223 14 Apr, 2017 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 [facility] [id number] [place] [address] 78397- 3572 Apr, Opioid use disorder, severe, 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 [facility] [address] [place] [address] 10 Apr, 2017 Opioid use disorder, severe, in sustained remission F11.21 [facility] [address] 33931- 5238 Apr, Opioid use disorder, severe, in early remission F11.21 [facility] [id number] [place] [address] 02461- 8311 Apr, Mild episode of recurrent major depressive disorder F33.0 and Right acute serous otitis media, recurrence not specified H65.01 [facility] [id number] [place] [address] 34701- 7530 Mar, [facility] [address] 81007- 3898 Mar, Opioid use disorder, severe, in early remission F11.21 [facility] [address] 81139- 8474 Mar, [facility] [address] [place] [address] Mar, Opioid use disorder, severe, in sustained remission F11.21 [facility] [address] [place] [address] Mar, Opioid use disorder, severe, in sustained remission F11.21 [facility] [id number] [place] [address] 02543- 8185 Mar, Opioid use disorder, severe, in early remission F11.21 [facility] [id number] [place] [address] 93192- 9034 Jan, Opioid use disorder, severe, in early remission F11.21 [facility] [address] [place] [address] Jan, Opioid use disorder, severe, in sustained remission F11.21 [facility] [address] [place] [address] Jan, Opioid use disorder, severe, in sustained remission F11.21 [facility] [address] 82316- 1917 Jan, Opioid use disorder, severe, 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 [facility] [address] [place] [address] Jan, Opioid use disorder, severe, in sustained remission F11.21 [facility] [address] [id number] [address] December, Opioid use disorder, severe, 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 [facility] [address] [place] [address] December, Opioid use disorder, severe, in sustained remission F11.21 [id number] [place] [address] 83385- 5775 December, Routine gynecological examination Z01.419 and Chronic kidney disease, stage 3 N18.3 [id number] [place] [address] 90876- 6658 December, Chronic kidney disease, stage 3 N18.3 ; 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 ; Gastroparesis K31.84 ; Essential hypertension I10 and Irritable bowel syndrome with constipation K58.1 [facility] [address] [place] [address] December, Opioid use disorder, severe, in sustained remission F11.21 [address] [place] [address] 62121- 1692 December, Opioid use disorder, severe, in early remission F11.21 [facility] [address] [place] [address] December, Opioid use disorder, severe, in sustained remission F11.21 [id number] [place] [address] 26591- 5500 December, Encounter for therapeutic drug level monitoring Z51.81 [facility] [address] [place] [address] December, Opioid use disorder, severe, in sustained remission F11.21 [facility] [address] [place] [address] Dec, Opioid use disorder, severe, in sustained remission F11.21 [facility] [address] [address] 5050 Dec, Opioid use disorder, severe, in early remission F11.21 [facility] [id number] [place] [address] 37722- 1653 Dec, [facility] [address] [place] [address] Dec, Opioid use disorder, severe, in sustained remission F11.21 [facility] [id number] [place] [address] 14879- 4197 Dec, Opioid use disorder, severe, in early remission F11.21 [facility] [address] [place] [address] Dec, Opioid use disorder, severe, in sustained remission F11.21 [facility] [id number] [place] [address] 80808- 7207 Dec, 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 [facility] [id number] [place] [address] 00076- 6656 Dec, Opioid use disorder, severe, in sustained remission F11.21 ; Encounter for therapeutic drug level monitoring Z51.81 and Other oil heaterman ( 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 Z79.899 [facility] [address] [place] [address] Oct, Opioid use disorder, severe, in sustained remission F11.21 [facility] [id number] [place] [address] 03788- 4716 Oct, Opioid use disorder, severe, in early remission F11.21 [facility] [id number] [place] [address] 58635- 4167 Oct, [facility] [address] [place] [address] Oct, Opioid use disorder, severe, in sustained remission F11.21 [facility] [id number] [place] [address] 26555- 8672 Oct, 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 [facility] [facility] [id number] [place] [address] 36302- 4069 14 Oct, 2016 Routine gynecological examination Z01.419 [place] [facility] [id number] [place] [address] 11715- 7875 07 Oct, 2016 Opioid use disorder, severe, in early remission F11.[address] 36877- 1677 06 Oct, 2016 Opioid use disorder, severe, in early remission F11.[address] 16105- 8900 Oct, Opioid use disorder, severe, in early remission F11.21 [facility] [address] [place] [address] 02 Oct, 2016 Opioid use disorder, severe, in sustained remission F11.[address] 02516- 1007 24 Oct, 2016 Opioid use disorder, severe, in early remission F11.21 [address] [id number] [place] [address] 34349- 0730 23 Oct, 2016 Opioid use disorder, severe, in early remission F11.21 [facility] [address] [place] [address] 22 Oct, 2016 Opioid use disorder, severe, in sustained remission F11.21 [id number] [place] [address] 52780- 8342 20 Oct, 2016 Opioid use disorder, severe, in sustained remission F11.21 ; Encounter for therapeutic drug level monitoring Z51.81 and Other oil heaterman ( 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 Z79.[address] 97956- 3297 16 Oct, 2016 [facility] [address] [place] [address] 14 Oct, 2016 Opioid use disorder, severe, in early remission F11.21 [facility] [address] [place] [address] Oct, Opioid use disorder, severe, in early remission F11.21 [facility] [id number] [place] [address] 34590- 9039 Oct, Opioid use disorder, severe, in early remission F11.21 [facility] [id number] [place] [address] 32638- 3772 Oct, [facility] [id number] [place] [address] 11594- 3910 Oct, [facility] [id number] [place] [address] 30881- 8024 Oct, [facility] [address] [place] [address] Oct, Opioid use disorder, severe, in early remission F11.21 [facility] [id number] [place] [address] 77727- 8055 Sep, Opioid use disorder, severe, in early remission F11.21 [facility] [address] [place] [address] Sep, Opioid use disorder, severe, in early remission F11.21 [facility] [id number] [place] [address] 06446- 2472 Sep, Opioid use disorder, severe, in early remission F11.21 ; Other long-term (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 Z79.899 and Encounter for therapeutic drug level monitoring Z51.81 [facility] [id number] [place] [address] 93299- 0080 Sep, [facility] [id number] [place] [address] 39748- 1313 Sep, [facility] [id number] [place] [address] 46864- 2772 Sep, Opioid use disorder, severe, in early remission F11.21 ; 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 ; Chronic kidney disease, stage 3 N18.3 ; Essential hypertension I10 and Irritable bowel syndrome with constipation K58.1 [facility] [address] [place] [address] 17 Sep, 2016 Opioid use disorder, severe, in early remission F11.21 [facility] [address] [place] [address] Sep, Opioid use disorder, severe, in early remission F11.21 [facility] [address] 89718- 5771 Sep, Opioid use disorder, moderate, dependence F11.20 [facility] [address] 54527- 9380 Sep, Opioid use disorder, moderate, dependence F11.20 [facility] [address] [place] [address] Sep, Opioid use disorder, severe, in early remission F11.[address] 24704- 1513 Sep, Opioid use disorder, severe, 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 [facility] [address] [place] [address] Aug, Opioid use disorder, severe, in early remission F11.[address] 739468- 2102 Aug, Opioid use disorder, moderate, dependence F11.20 [facility] [address] [address]647 [address] Aug, Bug bite without infection, initial encounter W57.XXXA [facility] [address] [place] [address] 24354- 8240 Aug, Opioid use disorder, moderate, dependence F11.20 [facility] [address] [place] [address] Aug, [facility] [address] [place] [address] 09835- 0151 Aug, Opioid use disorder, severe, in early remission F11.21 ; Other long-term (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 Z79.899 ; Encounter for therapeutic drug level monitoring Z51.81 and 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 [facility] [address] [place] [address] 15 Aug, 2016 [facility] [address] 659932- 6499 Aug, Opioid use disorder, moderate, dependence F11.20 ; Other long-term (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 Z79.899 and Encounter for therapeutic drug level monitoring Z51.81 [facility] [id number] [place] [address] 89616- 7234 13 Aug, 2016 [facility] [id number] [place] [address] 34403- 8533 Aug, Non-intractable vomiting with nausea, unspecified vomiting type R11.2 [facility] [id number] [place] [address] 51131- 6442 Aug, Opioid use disorder, moderate, dependence F11.20 and Non- intractable vomiting with nausea, unspecified vomiting type R11.2 [facility] [id number] [place] [address] 01106- 1811 Aug, [facility] [id number] [place] [address] 86676- 5530 Aug, Opioid use disorder, moderate, dependence F11.20 [facility] [id number] [place] [address] 31446- 8533 Aug, [facility] [id number] [place] [address] 32543- 9618 Jul, 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 and Opioid use disorder, moderate, dependence F11.20 [facility] [address] [place] [address] Jul, [facility] [id number] [place] [address] 76315- 5555 Jul, [facility] [id number] [place] [address] 22149- 6445 Jul, [facility] [id number] [place] [address] 45282- 0224 Jul, Addiction to drug F19.20 and Chronic kidney disease, stage 3 N18.3 [facility] [address] [place] [address] Jul, Counseling on substance use and abuse Z71.89 [facility] [id number] [place] [address] 73175- 8102 Jul, Chronic kidney disease, stage 3 N18.3 [facility] [id number] [place] [address] 78890- 3658 Jul, 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 ; Diarrhea, unspecified type R19.7 and Essential hypertension I10 [facility] [facility] [id number] [place] [address] 70974- 4102 Jul, [facility] [address] 67368- 4412 Jun, [facility] [id number] [place] [address] 49808- 4102 Jun, [facility] [facility] [id number] [place] [address] 47211- 3877 Apr, 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 [facility] [id number] [place] [address] 11641- 7768 Apr, Sore throat and laryngitis J06.0 and Non-intractable vomiting with nausea, unspecified vomiting type R11.2 [facility] [id number] [place] [address] 58167- 3148 Apr, [facility] [facility] [address] 12864- 0724 Mar, [facility] [id number] [place] [address] 23056- 8232 Jan, [place] [address] 89840- 3594 Jan, [facility] [id number] [place] [address] 34298- 2885 Jan, [facility] [address] 88107- 5787 December, 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 ; Gastroparesis K31.84 ; Mixed hyperlipidemia E78.2 ; Chronic kidney disease, stage 3 N18.3 ; Dysthymia F34.1 and Acute bilateral low back pain without sciatica M54.5 [facility] [id number] [place] [address] 85141- 2853 December, [facility] [facility] [address] 80186- 5351 December, [address] 71107- 0207 Aug, Depression F32.9 and Gastroparesis K31.84 [facility] [id number] [place] [address] 02542- 9738 Aug, Gastroparesis K31.84 [place] [id number] [place] [address] 27944- 7832 Jul, Recurrent UTI N39.0 ; Chronic kidney disease, stage 3 N18.3 and 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 [place] [id number] [place] [address] 98242- 6647 Jul, [facility] [id number] [place] [address] [id number] Jul, Dental examination Z01.20 and Dental caries K02.[address] 25631- 9432 17 Jul, 2015 [facility] [address] [place] [id number] [place] [address] 78061 -9013 Jul, Dysuria R30.0 ; Urinary tract infection N39.0 and Nausea R11.[address] [id number] [address] 5727 Jun, Dysuria R30.0 [facility] [id number] [place] [address] 06328- 3131 Jun, Dysuria R30.0 [facility] [facility] [id number] [place] [address] 59888- 4102 Jun, Dysuria R30.0 [facility] [facility] [id number] [place] [address] 72433- 5740 Jun, [facility] [id number] [place] [address] 10432- 2677 Jun, Acute cystitis with hematuria N30.01 [place] [address] [place] [id number] [place] [address] [phone]- [phone] May, [place] [address] [address]- [address] Apr, Diabetes mellitus without mention of complication, type I [ juvenile type], not stated as uncontrolled 250.01 ; Gastroparesis due to DM 250.60 ; Contraception management V25.9 and Renal insufficiency 593.9 [place] [address] [place] [id number] [place] [address] [phone]- [phone] Apr, [place] [id number] [place] [address] [phone]- 7547 Apr, [place] [address] [place] [id number] [place] [address] [phone]- [phone] Mar, [place] [id number] [place] [address] 28570- 0965 Mar, Hyperlipidemia 272.4 and Hypertensive heart and chronic kidney disease, benign, without heart failure and with chronic kidney disease stage I through stage IV, or unspecified 404.10 [place] [id number] [place] [address] 15328- 8198 Mar, Hyperlipidemia 272.4 ; Hyponatremia 276.1 ; 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 ; Hypertensive heart and chronic kidney disease, benign, without heart failure and with chronic kidney disease stage I through stage IV, or unspecified 404.10 ; Proteinuria 791.0 and Chronic kidney disease (CKD), stage III (moderate) 585.3 [place] [id number] [address] Mar, [place] [address] [place] [id number] [place] [address] 15159- 3648 Mar, Elevated blood sugar level 790.29 [place] [address] [place] [id number] [place] [address] 39731- 6003 Mar, Low grade squamous intraepithelial lesion (LGSIL) on cervical Pap smear 795.03 [place] [address] [place] [id number] [place] [address] 01500- 2668 Mar, Amenorrhea 626.0 [place] [address] [place] [id number] [place] [address] 85900- 4418 Jan, Amenorrhea 626.0 ; Routine gynecological examination V72.31 and Screen for STD (sexually transmitted disease) V74.5 [place] [id number] [place] [address] 18083- 2842 Jan, Amenorrhea 626.0 [place] [id number], [place] [address] 08 Jan, 2015 Routine gynecological examination V72.31 ; Screen for STD ( sexually transmitted disease) V74.5 ; Pap test, as part of routine gynecological examination V76.2 ; Breast cancer screening V76.10 and Amenorrhea 626.0 [place] [id number], [place] [address] 288[address] December, [place] [id number] [place] [address] 07656- 4119 Dec, [place] [address], [place] [address] 0869 Dec, [place] [id number] [address] Oct, [facility] [place] [facility] [address] [id number] [place] [address] 4167 Oct, [facility] [place] [facility] [address] [id number] [place] [address] 2546 Oct, [facility] [place] [facility] [address] [id number] [place] [address]- 4343 Oct, [facility] [place] [facility] [address] [id number] [place] [address]- 2061 Oct, [facility] [place] [facility] [address] [id number] [place] [address]- 7983 Oct, [facility] [place] [facility] [address] [id number] [place] [address]- 0726 Oct, [facility] [place] [facility] [address] [id number] [place] [address]- 7491 Oct, [facility] [place] [facility] [address] [id number] [place] [address]- 6188 Oct, [facility] [place] [facility] [address] [id number] [place] [address]- 8094 Oct, [facility] [place] [facility] [address] [id number] [place] [address]- 1660 Oct, [facility] [place] [facility] [address] [id number] [place] [address]- 7793 Sep, [facility] [place] [facility] [address] [id number] [place] [address]- 4916 Sep, [facility] [place] [facility] [address] [id number] [place] [address]- 9932 Sep, [facility] [place] [facility] [address] [id number] [place] [address]- 2546 Sep, [facility] [place] [facility] [address] [id number] [place] [address]- 3429 Sep, [facility] [place] [facility] [address] [id number] [place] [address]- 7450 16 Sep, 2014 [facility] [place] [facility] [address] [id number] [place] [address]- 1292 Sep, [facility] [place] [facility] [address] [id number] [place] [address]- 7378 Sep, [facility] [place] [facility] [address] [id number] [place] [address]- 0892 Sep, [facility] [place] [facility] [address] [id number] [place] [address]- 2017 Sep, [facility] [place] [facility] [address] [id number] [place] [address]- 2574 Sep, [facility] [place] [facility] [address] [id number] [place] [address]- 6158 Sep, [facility] [place] [facility] [address] [id number], [place] [address]- 4843 Sep, [facility] [place] [facility] [address] [id number], [place] [address]- 2109 Sep, [facility] [place] [facility] [address] [id number], [place] [address]- 2636 Sep, [facility] [place] [facility] [address] [id number], [place] [address]- 9115 Sep, [facility] [place] [facility] [address] [id number], [place] [address]- 0202 Sep, [facility] [place] [facility] [address] [id number], [place] [address]- 5939 Sep, [facility] [place] [facility] [address] [id number], [place] [address]- 3861 Sep, [facility] [place] [facility] [address] [id number], [place] [address]- 4669 Sep, [facility] [place] [facility] [address] [id number] [place] [address]24 18 Aug, 2014 [facility] [place] [facility] [address] [id number] [place] [address] Aug, [facility] [place] [facility] [address] [id number] [place] [address] Aug, [facility] [place] [facility] [address] [id number] [place] [address]- 9233 Aug, [facility] [place] [facility] [address] [id number] [place] [address]- 9150 Aug, [facility] [place] [facility] [address] [id number] [place] [address] Aug, [facility] [place] [facility] [address] [id number] [place] [address]- 1283 Aug, [facility] [place] [facility] [address] [id number] [place] [address]- 0198 Aug, [facility] [place] [facility] [address] [id number] [place] [address]- 1973 Aug, [facility] [place] [facility] [address] [id number] [place] [address]- 4096 Aug, [facility] [place] [facility] [address] [facility] [id number] [place] [address]- 2001 Aug, [facility] [place] [facility] [address] [id number] [place] [address]- 5083 Aug, [facility] [place] [facility] [address] [id number] [place] [address]- 8194 Jul, [facility] [place] [facility] [address] [id number] [place] [address]892 Jul, [facility] [place] [facility] [address] [id number] [place] [address]- 5879 Jul, [facility] [place] [facility] [address] [id number] [place] [address] Jul, [facility] [place] [facility] [address] [id number] [place] [address]- 6021 Jul, [facility] [place] [facility] [address] [id number] [place] [address]- 9807 Jul, [facility] [place] [facility] [address] [id number] [place] 9721 Jul, [facility] [place] [facility] [address] [id number] [place] [address]- 7675 Jul, [facility] [place] [facility] [address] [id number] [place] [address]- 8865 Jul, [facility] [place] [facility] [address] [id number] [place] [address]- 9168 Jul, [facility] [place] [facility] [address] [id number] [place] [address]- 8858 Jun, [facility] [place] [facility] [address] [id number] [place] [address]- 6103 Jun, [facility] [place] [facility] [address] [id number] [place] [address]- 2152 Jun, [facility] [place] [facility] [address] [id number] [place] [address]- 7426 30 Jun, 2014 [facility] [place] [facility] [address] [id number] [place] [address]- 7677 30 Jun, 2014 [facility] [place] [facility] [address] [id number] [place] [address]- 7060 30 Jun, 2014 [facility] [place] [facility] [address] [id number] [place] [address]- 7891 15 Jun, 2014 [facility] [place] [facility] [address] [id number] [place] [address]- 6566 15 Jun, 2014 [facility] [place] [facility] [address] [id number] [place] [address]- 3761 May, [facility] [place] [facility] [address] [id number] [place] [address]- 3219 May, [facility] [place] [facility] [address] [id number] [place] [address]- 1838 May, [facility] [place] [facility] [address] [id number] [place] [address]- 6188 May, [facility] [place] [facility] [address] [id number] [place] [address]- 0713 May, [facility] [place] [facility] [address] [id number] [place] [address]- 6466 May, [facility] [place] [facility] [address] [id number] [place] [address]- 1542 May, [facility] [place] [facility] [address] [id number] [place] [address]- 1857 May, [facility] [place] [facility] [address] [id number] [place] [address]- 5275 Apr, [facility] [place] [facility] [address] [id number] [place] [address]- 0826 Apr, [facility] [place] [facility] [address] [id number] [place] [address]- 0868 Apr, [facility] [place] [facility] [address] [id number] [place] [address]- 2731 Apr, [facility] [place] [facility] [address] [id number] [place] [address]- 2413 Mar, [facility] [place] [facility] [address] [id number] [place] [address]- 6918 Mar, [facility] [place] [facility] [address] [id number] [place] [address]- 1812 Mar, [facility] [place] [facility] [address] [id number] [place] [address]- 5248 Mar, [facility] [place] [facility] [address] [id number] [place] [address]- 6724 Mar, [facility] [place] [facility] [address] [id number] [place] [address]- 9833 Mar, [facility] [place] [facility] [address] [id number] [place] [address]- 0924 Jan, [facility] [place] [facility] [address] [id number] [place] [address]- 1871 Jan, [facility] [place] [facility] [address] [id number] [place] [address]- 8903 Jan, [facility] [place] [facility] [address] [id number] [place] [address]- 3754 Jan, [facility] [place] [facility] [address] [id number] [place] [address]- 7555 Jan, [facility] [place] [facility] [address] [id number] [place] [address]- 7563 Jan, [facility] [place] [facility] [address] [id number] [place] [address]- 7694 Jan, [facility] [place] [facility] [address] [id number] [place] [address]- 3206 Jan, [facility] [place] [facility] [address] [id number] [place] [address]- 9040 Jan, [facility] [place] [facility] [address] [id number] [place] [address]- 1851 Jan, [facility] [place] [facility] [address] [id number] [place] [address]- 5315 Jan, [facility] [place] [facility] [address] [id number] [place] [address]- 0790 Jan, [facility] [place] [facility] [address] [id number] [place] [address]- 4914 December, [facility] [place] [facility] [address] [id number] [place] [address]- 0048 December, [facility] [place] [facility] [address] [id number] [place] [address]- 3867 December, [facility] [place] [facility] [address] [id number] [place] [address]- 9388 December, [facility] [place] [facility] [address] [id number] [place] [address]- 3437 Dec, [facility] [place] [facility] [address] [id number] [place] [address]- 4298 Dec, [facility] [place] [facility] [address] [id number] [place] [address]- 9695 Dec, [facility] [place] [facility] [address] [id number] [place] [address]- 5802 Dec, [facility] [place] [facility] [address] [id number] [place] [address]- 9884 Dec, [facility] [place] [facility] [address] [id number] [place] [address]- 9498 Dec, [facility] [place] [facility] [address] [id number] [place] [address]- 0738 Dec, [facility] [place] [facility] [address] [id number] [place] [address]- 6248 Dec, [facility] [place] [facility] [address] [id number] [place] [address]- 7813 Dec, [facility] [place] [facility] [address] [id number] [place] [address]- 3537 Dec, [facility] [place] [facility] [address] [id number], [place] [address]- 4663 Dec, [facility] [place] [facility] [address] [id number] [place] [address]- 1958 Dec, [facility] [place] [facility] [address] [id number] [place] [address]- 3710 Dec, [facility] [place] [facility] [address] [id number] [place] [address]- 4277 Dec, [facility] [place] [facility] [address] [id number], [place] [address]- 7281 31 Oct, 2013 [facility] [place] [facility] [address] [id number] [place] [address]- 2895 Oct, [facility] [place] [facility] [address] [id number] [place] [address]- 4376 Oct, [facility] [place] [facility] [address] [id number] [place] [address]- 9240 Oct, [facility] [place] [facility] [address] [id number] [place] [address]- 1490 Oct, [facility] [place] [facility] [address] [id number] [place] [address]- 5619 Oct, [facility] [place] [facility] [address] [id number] [place] [id number] Oct, [facility] [place] [facility] [address] [id number] [place] [address]- 1955 Oct, [facility] [place] [facility] [address] [id number] [place] [address]- 1979 Oct, [facility] [place] [facility] [address] [id number] [place] [address]- 2995 Oct, [facility] [place] [facility] [address] [id number] [place] [address]- 3535 Sep, [facility] [place] [facility] [address] [id number] [place] [address]- 0822 Sep, [facility] [place] [facility] [address] [id number] [place] [address]- 9197 Sep, [facility] [place] [facility] [address] [id number] [place] [address]- 2300 Sep, [facility] [place] [facility] [address] [id number] [place] [address]- 7474 Sep, [facility] [place] [facility] [address] [id number] [place] [address]- 5775 Sep, [facility] [place] [facility] [address] [id number] [address]- 9993 Aug, [facility] [address], [place] [address]- 8040 Aug, [facility] [address], [place] [address]- 1158 Jul, [facility] [address] [address]- 8844 Jul, [facility] [address], [place] [address]- 5049 Jul, [facility] [address], [place] [address]- 4961 Jul, [facility] [address], [place] [address]- 4583 Jul, IMMUNIZATIONS No Known Immunizations SOCIAL HISTORY Never Assessed REASON FOR VISIT MAT F/U PLAN OF CARE Activity Details Follow Up 2 Months Reason:MAT/DMT1 VITAL SIGNS Height 66 in 2018-01-08 Weight 206 lbs 2018-01-08 Temperature 98.4 degrees Fahrenheit 2018-01-08 Heart Rate 96 bpm 2018-01-08 Respiratory Rate 18 2018-01-08 BMI 33.25 kg/m2 2018-01-08 Blood pressure systolic 128 mmHg 2018-01-08 Blood pressure diastolic 90 mmHg 2018-01-08 MEDICATIONS Medication Instructions Dosage Frequency Start Date End Date Duration Status Lovastatin 40 mg Orally Once a day 1 tablet with a meal 24h Mar, Active Humalog 100 UNIT/ML Subcutaneous pump as per pump-must have appt for refills inject Units by Subcutaneous route every hour per insulin pump Active Glucagon Emergency 1 MG as directed Apr, Active Zofran ODT 4 MG Orally 3 times a day, prn take 1 tablets by Oral route every 8 hours PRN Nausea or Vomiting Sep, Active Enalapril Maleate 10 mg Orally Once a day 1 tablet 24h Active Suboxone 8-2 MG Sublingual Once a day 2.5 film under the tongue and allow to dissolve 24h Aug, 28 days Active Vitamin C 500 MG Active Dicyclomine HCl 10 MG TAKE ONE CAPSULE BY MOUTH TWICE DAILY NEEDED Active Tylenol 8 Hour Active Vitamin B12 Active Wellbutrin SR 150 MG Orally Once a day 1 tablet 24h Jul, 30 day (s) Active Fish Oil 1000 MG Orally Once a day 2 capsule 24h Active Potassium 99 MG Orally Once a day 1 tablet 24h Active Vitamin D 2000 UNIT Orally Once a day 1 tablet 24h Active RESULTS Name Result Date Reference Range URINE DRUG SCREEN (IN HOUSE) 2018-01-08 Lot # [id number] Exp date 05/2019 Control + COCAINE neg AMPH neg MTD neg THC neg OPIATE neg BENZO neg PCP neg BAR neg OXY neg MAMP neg BUP + MDMA neg TCA n/a PROCEDURES Procedure Date Ordered Result Body Site DRUG TEST PRSMV DIR OPT OBS January 08, 2018 INSTRUCTIONS MEDICATIONS ADMINISTERED No Known Medications [...]
--- OUTSIDE RECORDS SUMMARY | 2018-08-30 20:37 | XMS REPORT ---
Author Author NOEMY MORGAN Organization [facility] Address [address] 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 Active 76195666 Problem Chronic kidney disease, stage 3 N18.3 Active 390796502 Problem CHI I (cervical intraepithelial neoplasia I) N87.0 Active 911931889 Problem Mild episode of recurrent major depressive disorder F33.0 Active 758033833 Problem Addiction to drug F19.20 Active 163128296 Problem Essential hypertension I10 Active 38700290 Problem Opioid use disorder, severe, in sustained remission F11.21 Active 74476150 Problem Irritable bowel syndrome with constipation K58.1 Active 910029467 ALLERGIES No Information ENCOUNTERS Encounter Location Date Diagnosis [facility] [id number] [place] [address] 31530- 4783 Mar, Essential hypertension I10 and Irritable bowel syndrome with constipation K58.1 [facility] [id number] [place] [address] 57496- 8157 Mar, [facility] [id number] [place] [address] 97410- 0384 Mar, Chronic kidney disease, stage 3 N18.3 ; 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 ; Opioid use disorder, severe, in sustained remission F11.21 and Mixed hyperlipidemia E78.2 [facility] [id number] [place] [address] 81302- 0151 Mar, Mixed hyperlipidemia E78.2 [facility] [address] [place] [address] 20867- 9852 Mar, Opioid use disorder, severe, in early remission F11.21 [facility] [id number] [place] [address] 37293- 9367 Mar, [facility] [address] [place] [address] Mar, Opioid use disorder, severe, in sustained remission F11.21 [facility] [id number] [place] [address] 45345- 7983 Jan, Opioid use disorder, severe, in early remission F11.21 [facility] [id number] [place] [address] 93998- 6847 December, Opioid use disorder, severe, in early remission F11.21 [facility] [address] [place] [address] December, Opioid use disorder, severe, in sustained remission F11.21 [facility] [id number] [place] [address] 11258- 9309 December, Opioid use disorder, severe, in sustained remission F11.21 and 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 [facility] [address] [place] [address] 30480- 5615 December, Opioid use disorder, severe, in 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 [facility] [address] [place] [address] Dec, Opioid use disorder, severe, in sustained remission F11.21 [facility] [address] [place] [address] 74803- 3916 Dec, 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 ; Unprotected sexual intercourse Z72.51 ; Pain of left thumb M79.645 ; Mixed hyperlipidemia E78.2 ; Gastroparesis K31.84 ; Essential hypertension I10 and Irritable bowel syndrome with constipation K58.1 [facility] [address] [place] [id number] [address] Dec, Opioid use disorder, severe, in early remission F11.21 [facility] [id number] [place] [address] 05578- 6906 Oct, [facility] [id number] [place] [address] 77618 2546 Oct, Opioid use disorder, severe, in early remission F11.21 [facility] [id number] [place] [address] 30369- 1156 Oct, [facility] [id number] [place] [address] 280057- 1526 Oct, Opioid use disorder, severe, 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 [facility] [id number] [place] [address] 553343- 1086 Oct, [facility] [id number] [place] [address] 73312- 4028 Oct, [facility] [address] [place] [address] Oct, Opioid use disorder, severe, in sustained remission F11.21 [facility] [id number] [place] [address] 88864- 2794 Sep, [facility] [address] [place] [address] 98044- 2431 Sep, [facility] [address] [place] [address] 97172- 2542 Sep, Opioid use disorder, severe, 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 [facility] [address] [place] [address] 187713- 4776 Aug, Opioid use disorder, severe, 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 [facility] [address] [address]- 7323 Jul, [facility] [id number] [place] [address] 51533- 4228 Jul, Chronic kidney disease, stage 3 N18.3 ; Dysthymia F34.1 and Opioid use disorder, severe, in sustained remission F11.21 [facility] [address] [place] [address] Jul, Opioid use disorder, severe, in sustained remission F11.21 [facility] [id number] [place] [address] 35805- 7618 Jul, Long-term use of high-risk medication Z79.899 and Chronic kidney disease, stage 3 N18.3 [facility] [id number] [place] [address] 79945- 5124 Jul, Opioid use disorder, severe, 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 [facility] [id number] [place] [address] 91232- 0475 Jul, [facility] [id number] [place] [address] 10813- 4731 Jun, [facility] [id number] [place] [address] 11685- 4153 Jun, [facility] [id number] [place] [address] 26392- 1631 Jun, Opioid use disorder, moderate, dependence F11.20 and Opioid use disorder, severe, 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 [facility] [id number] [place] [address] 33749- 7341 Jun, [facility] [id number] [place] [address] 93182- 0419 Jun, Long-term use of high-risk medication Z79.899 [facility] [id number] [place] [address] 18097- 8565 Jun, CHI I (cervical intraepithelial neoplasia I) N87.0 [facility] [id number] [place] [address] 15586- 5435 May, Opioid use disorder, severe, 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 [facility] [address] [place] [address] 97224- 0043 18 May, 2017 Chronic kidney disease, stage 3 N18.3 [facility] [id number] [place] [address] 13450- 8856 14 May, 2017 Chronic kidney disease, stage 3 N18.3 [facility] [address] [place] [address] 05 May, 2017 Opioid use disorder, severe, in sustained remission F11.21 [facility] [id number] [place] [address] 32684- 8638 Apr, LGSIL on Pap smear of cervix R87.612 [facility] [address] [place] [address] Apr, [facility] [id number] [place] [address] 90238- 7537 Apr, Opioid use disorder, severe, in early remission F11.21 [facility] [id number] [place] [address] 64644- 2730 Apr, Opioid use disorder, severe, 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 [facility] [id number] [place] [address] 04785- 1700 Apr, Opioid use disorder, severe, in early remission F11.21 [facility] [id number] [place] [address] 68272- 5665 Apr, Opioid use disorder, severe, in early remission F11.21 [facility] [address] [place] [address] 55780- 1547 14 Apr, 2017 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 [facility] [id number] [place] [address] 11739- 5478 Apr, Opioid use disorder, severe, in early remission F11.21 [facility] [address] [place] [address] Apr, Opioid use disorder, severe, in sustained remission F11.21 [facility] [id number] [place] [address] 61581- 6843 Apr, Opioid use disorder, severe, in early remission F11.21 [facility] [id number] [place] [address] 05830- 6876 Apr, Mild episode of recurrent major depressive disorder F33.0 and Right acute serous otitis media, recurrence not specified H65.01 [facility] [id number] [place] [address] 94094- 5338 Mar, [facility] [id number] [place] [address] 30313- 6419 Mar, Opioid use disorder, severe, in early remission F11.21 [facility] [id number] [place] [address] 10530- 3800 Mar, [facility] [address] [place] [address] Mar, Opioid use disorder, severe, in sustained remission F11.21 [facility] [address] [place] [address] Mar, Opioid use disorder, severe, in sustained remission F11.21 [facility] [id number] [place] [address] 76183- 7269 Mar, Opioid use disorder, severe, in early remission F11.21 [facility] [id number] [place] [address] 94730- 4458 Jan, Opioid use disorder, severe, in early remission F11.21 [facility] [address] [place] [address] Jan, Opioid use disorder, severe, in sustained remission F11.21 [facility] [address] [place] [address] Jan, Opioid use disorder, severe, in sustained remission F11.21 [facility] [id number] [place] [address] 24075- 8269 Jan, Opioid use disorder, severe, in early remission F11.21 [facility] [address] [place] [address] Jan, Opioid use disorder, severe, in sustained remission F11.21 [facility] [id number] [place] [address] 34247- 7004 December, Opioid use disorder, severe, in early remission F11.21 [facility] [address] [place] [address] December, Opioid use disorder, severe, in sustained remission F11.[address] 65229- 3870 December, Routine gynecological examination Z01.419 and Chronic kidney disease, stage [address] 82467- 3917 December, Chronic kidney disease, stage 3 N18.3 ; 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 ; Gastroparesis K31.84 ; Essential hypertension I10 and Irritable bowel syndrome with constipation K58.1 [facility] [address] [place] [address] December, Opioid use disorder, severe, in sustained remission F11.21 [place] [id number] [place] [address] 76957- 5978 December, Opioid use disorder, severe, in early remission F11.21 [facility] [address] [place] [address] December, Opioid use disorder, severe, in sustained remission F11.21 [place] [id number] [place] [address] 19371- 4615 December, Encounter for therapeutic drug level monitoring Z51.81 [facility] [address] [place] [address] December, Opioid use disorder, severe, in sustained remission F11.21 [facility] [address] [place] [address] Dec, Opioid use disorder, severe, in sustained remission F11.21 [place] [id number] [place] [address] 38287- 3568 Dec, Opioid use disorder, severe, in early remission F11.21 [facility] [address] [address]- [address] Dec, [facility] [address] [place] [address] Dec, Opioid use disorder, severe, in sustained remission F11.21 [facility] [id number] [place] [address] 75573- 0127 Dec, Opioid use disorder, severe, in early remission F11.21 [facility] [address] [place] [address] 06 Dec, 2016 Opioid use disorder, severe, in sustained remission F11.21 [facility] [id number] [place] [address] 12901- 1463 Dec, 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 [facility] [id number] [place] [address] 12215- 3990 Dec, Opioid use disorder, severe, in sustained remission F11.21 ; Encounter for therapeutic drug level monitoring Z51.81 and Other senior living ( 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 Z79.899 [facility] [address] [place] [address] 31 Oct, 2016 Opioid use disorder, severe, in sustained remission F11.21 [facility] [id number] [place] [address] 21096- 6397 Oct, Opioid use disorder, severe, in early remission F11.21 [facility] [address] [place] [address] 65872- 3060 Oct, [facility] [address] [place] [address] Oct, Opioid use disorder, severe, in sustained remission F11.21 [facility] [id number] [place] [address] 40367- 7039 15 Oct, 2016 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 [facility] [id number] [place] [address] 43811- 7312 14 Oct, 2016 Routine gynecological examination Z01.419 [facility] [address] [place] [address] 57655- 5404 07 Oct, 2016 Opioid use disorder, severe, in early remission F11.21 [facility] [id number] [place] [address] 97467- 8276 Oct, Opioid use disorder, severe, in early remission F11.21 [place] [id number] [place] [address] 69652- 1092 Oct, Opioid use disorder, severe, in early remission F11.21 [facility] [address] [place] [address] Oct, Opioid use disorder, severe, in sustained remission F11.21 [facility] [id number] [place] [address] 19068- 9129 24 Oct, 2016 Opioid use disorder, severe, in early remission F11.[address] 59876- 3565 23 Oct, 2016 Opioid use disorder, severe, in early remission F11.21 [facility] [address] [place] [address] 22 Oct, 2016 Opioid use disorder, severe, in sustained remission F11.21 [facility] [id number] [place] [address] 86208- 5442 20 Oct, 2016 Opioid use disorder, severe, in sustained remission F11.21 ; Encounter for therapeutic drug level monitoring Z51.81 and 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 [place] [id number] [place] [address] 42681- 9833 16 Oct, 2016 [facility] [address] [place] [address] 14 Oct, 2016 Opioid use disorder, severe, in early remission F11.21 [facility] [address] [place] [address] 10 Oct, 2016 Opioid use disorder, severe, in early remission F11.21 [place] [id number] [place] [address] 72109- 0117 Oct, Opioid use disorder, severe, in early remission F11.21 [facility] [address] [place] [address] 32273- 9916 08 Oct, 2016 [facility] [address] [place] [address] 69573- 0816 Oct, [facility] [id number] [place] [address] 88391- 2055 Oct, [facility] [address] [place] [address] Oct, Opioid use disorder, severe, in early remission F11.21 [facility] [id number] [place] [address] 19923- 3465 Sep, Opioid use disorder, severe, in early remission F11.21 [facility] [address] [place] [address] Sep, Opioid use disorder, severe, in early remission F11.21 [facility] [id number] [place] [address] 16383- 4227 Sep, Opioid use disorder, severe, in early remission F11.21 ; 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 and Encounter for therapeutic drug level monitoring Z51.81 [facility] [address] [place] [address] 80768- 0863 Sep, [facility] [address] [place] [address] 04236- 6900 Sep, [facility] [address] [place] [address] 03679- 6671 Sep, Opioid use disorder, severe, 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 ; 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 ; Chronic kidney disease, stage 3 N18.3 ; Essential hypertension I10 and Irritable bowel syndrome with constipation K58.1 [facility] [address] [place] [address] Sep, Opioid use disorder, severe, in early remission F11.21 [facility] [address] [place] [address] Sep, Opioid use disorder, severe, in early remission F11.[address] 47147- 8037 Sep, Opioid use disorder, moderate, dependence F11.[address] 64402- 6902 Sep, Opioid use disorder, moderate, dependence F11.20 [facility] [address] [place] [address] Sep, Opioid use disorder, severe, in early remission F11.[address] 800315- 6621 Sep, Opioid use disorder, severe, in early remission F11.21 [facility] [address] [place] [address] Aug, Opioid use disorder, severe, in early remission F11.[address] 03423- 1871 Aug, Opioid use disorder, moderate, dependence F11.20 [facility] [address] [place] [address] 05010 -8808 Aug, Bug bite without infection, initial encounter W57.XXXA [address] 85528- 8380 Aug, Opioid use disorder, moderate, dependence F11.20 [facility] [address] [place] [address] Aug, [address] 75241- 3854 Aug, Opioid use disorder, severe, in early remission F11.21 ; Other senior living (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 Z79.899 ; Encounter for therapeutic drug level monitoring Z51.81 and 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 [facility] [address] [place] [address] 15 Aug, 2016 [place] [id number] [place] [address] 14125- 5492 15 Aug, 2016 Opioid use disorder, moderate, dependence F11.20 ; Other senior living (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 Z79.899 and Encounter for therapeutic drug level monitoring Z51.81 [facility] [id number] [place] [address] 69112- 0392 Aug, [facility] [address] 67931- 4918 Aug, Non-intractable vomiting with nausea, unspecified vomiting type R11.2 [place] [address] 218208- 7012 Aug, Opioid use disorder, moderate, dependence F11.20 and Non- intractable vomiting with nausea, unspecified vomiting type R11.2 [place] [id number] [place] [address] 18443- 9452 Aug, [facility] [id number] [place] [address] 42121- 5068 Aug, Opioid use disorder, moderate, dependence F11.20 [facility] [id number] [place] [address] 41352- 7197 Aug, [facility] [id number] [place] [address] 88297- 9567 Jul, 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 and Opioid use disorder, moderate, dependence F11.20 [facility] [address] [place] [address] Jul, [facility] [id number] [place] [address] 47641- 0231 Jul, [facility] [id number] [place] [address] 64437- 8809 Jul, [facility] [id number] [place] [address] 75399- 1898 Jul, Addiction to drug F19.20 and Chronic kidney disease, stage 3 N18.3 [facility] [address] [place] [address] Jul, Counseling on substance use and abuse Z71.89 [facility] [address] 83848- 4573 Jul, Chronic kidney disease, stage 3 N18.3 [facility] [id number] [place] [address] 35072- 7765 Jul, 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 ; Diarrhea, unspecified type R19.7 and Essential hypertension I10 [facility] [address] 24170- 3171 Jul, [facility] [address] 92116- 4501 Jun, [facility] [address] 11301- 1023 Jun, [facility] [address] 84647- 2484 Apr, 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 [facility] [address] 92232- 4191 Apr, Sore throat and laryngitis J06.0 and Non-intractable vomiting with nausea, unspecified vomiting type R11.2 [facility] [id number] [place] [address] 73503- 1783 Apr, [facility] [id number] [place] [address] 43338- 3800 Mar, [facility] [id number] [place] [address] 49854- 1224 Jan, [facility] [address] 94097- 4082 Jan, [facility] [address] [id number] [place] [address] 06314- 4556 Jan, [facility] [address] [place] [id number] [place] [address] 31874- 9245 December, 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 ; Gastroparesis K31.84 ; Mixed hyperlipidemia E78.2 ; Chronic kidney disease, stage 3 N18.3 ; Dysthymia F34.1 and Acute bilateral low back pain without sciatica M54.5 [place] [address] [address] December, [place] [address] [address] December, [address] [address] Aug, Depression F32.9 and Gastroparesis K31.84 [place] [address] [address] Aug, Gastroparesis K31.84 [place] [address] [address] Jul, Recurrent UTI N39.0 ; Chronic kidney disease, stage 3 N18.3 and 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 [place] [address] [address] Jul, [facility] [facility] [address] [id number] Jul, Dental examination Z01.20 and Dental caries K02.[address] [address]- [address] Jul, [facility] [address] [place] [address] -[address]897 Jul, Dysuria R30.0 ; Urinary tract infection N39.0 and Nausea R11.0 [place] [address] [address]- [address] Jun, Dysuria R30.0 [place] [address] [address] Jun, Dysuria R30.0 [place] [address] [place] [id number] [place] [address] 8[address]65- 0143 Jun, Dysuria R30.0 [place] [address] [place] [id number] [place] [address] 60041- 9466 Jun, [place] [address] [place] [id number] [place] [address] 06107- 4231 Jun, Acute cystitis with hematuria N30.01 [place] [address] [place] [id number] [place] [address]30- 4572 May, [place] [address] [place] [id number] [place] [address] 05915- 0603 Apr, Diabetes mellitus without mention of complication, type I [ juvenile type], not stated as uncontrolled 250.01 ; Gastroparesis due to DM 250.60 ; Contraception management V25.9 and Renal insufficiency 593.9 [place] [address] [place] [id number] [place] [address] 89150- 6127 Apr, [place] [address] [place] [id number] [place] [address]13- 8707 Apr, [place] [address] [place] [id number] [place] [address] 05844- 5529 Mar, [place] [address] [place] [id number] [place] [address] 71698- 1032 Mar, Hyperlipidemia 272.4 and Hypertensive heart and chronic kidney disease, benign, without heart failure and with chronic kidney disease stage I through stage IV, or unspecified 404.10 [place] [id number] [place] [address] 42923- 0288 Mar, Hyperlipidemia 272.4 ; Hyponatremia 276.1 ; 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 ; Hypertensive heart and chronic kidney disease, benign, without heart failure and with chronic kidney disease stage I through stage IV, or unspecified 404.10 ; Proteinuria 791.0 and Chronic kidney disease (CKD), stage III (moderate) 585.3 [place] [address] [address] Mar, [facility] [address] [place] [id number] [place] [address] 29907- 4274 Mar, Elevated blood sugar level 790.29 [place] [address] [place] [id number] [place] [address] 14416- 1284 Mar, Low grade squamous intraepithelial lesion (LGSIL) on cervical Pap smear 795.03 [place] [id number] [place] [address] 72602- 0697 Mar, Amenorrhea 626.0 [place] [address] [place] [id number] [place] [address] 28393- 8397 Jan, Amenorrhea 626.0 ; Routine gynecological examination V72.31 and Screen for STD (sexually transmitted disease) V74.5 [place] [address] [address] 6221 Jan, Amenorrhea 626.0 [place] [address] [place] [id number] [place] [address] 28620- 5391 08 Jan, 2015 Routine gynecological examination V72.31 ; Screen for STD ( sexually transmitted disease) V74.5 ; Pap test, as part of routine gynecological examination V76.2 ; Breast cancer screening V76.10 and Amenorrhea 626.0 [place] [address], [place] [address] 9654 December, [place] [address] [address]- 5243 Dec, [place] [id number] [place] [address] 01938- 2850 Dec, [place] [address] [address]- 0909 Oct, [place] [address] [place] [id number] [place] [address] [place] [address]- 5963 Oct, [facility] [place] [facility] [address] [id number] [place] [address]- 4623 Oct, [facility] [place] [facility] [address] [id number] [place] [address] Oct, [facility] [place] [facility] [address] [id number] [place] [address]- 4177 Oct, [facility] [place] [facility] [address] [id number] [place] [address]- 4805 Oct, [facility] [place] [facility] [address] [id number] [place] [address]- 7096 Oct, [facility] [place] [facility] [address] [id number] [place] [address]- 4349 Oct, [facility] [place] [facility] [address] [id number] [place] [address]- 6994 Oct, [facility] [place] [facility] [address] [id number] [place] [address]- 7131 Oct, [facility] [place] [facility] [address] [id number] [place] [address]- 2807 Oct, [facility] [place] [facility] [address] [id number] [place] [address]- 0621 Sep, [facility] [place] [facility] [address] [id number] [place] [address]- 1699 Sep, [facility] [place] [facility] [address] [id number] [address]- 8660 Sep, [facility] [place] [facility] [address] [id number] [place] [address]- 4572 Sep, [facility] [place] [facility] [address] [id number] [place] [address]- 5898 Sep, [facility] [place] [facility] [address] [id number] [place] [address]- 5394 Sep, [facility] [place] [facility] [address] [id number] [place] [address]- 8286 Sep, [facility] [place] [facility] [address] [id number] [place] [address]- 1327 Sep, [facility] [place] [facility] [address] [id number] [place] [address]- 0488 Sep, [facility] [place] [facility] [address] [id number] [place] [address]- 7551 Sep, [facility] [place] [facility] [address] [id number] [place] [address]- 1230 Sep, [facility] [place] [facility] [address] [id number] [place] [address]- 3972 Sep, [facility] [place] [facility] [address] [id number] [place] [address]- 4690 Sep, [facility] [place] [facility] [address] [id number] [place] [address]- 1250 Sep, [facility] [place] [facility] [address] [id number] [place] [address]- 3476 Sep, [facility] [place] [facility] [address] [id number] [place] [address]- 8134 Sep, [facility] [place] [facility] [address] [id number] [place] [address]- 5191 Sep, [facility] [place] [facility] [address] [id number], [place] [address]- 5080 Sep, [facility] [place] [facility] [address] [id number] [place] [address]- 7984 Sep, [facility] [place] [facility] [address] [id number] [place] [address]- 9422 Sep, [facility] [place] [facility] [address] [id number] [place] [address]- 2987 Aug, [facility] [place] [facility] [address] [id number] [place] [address]- 3614 Aug, [facility] [place] [facility] [address] [id number] [place] [address]- 9030 Aug, [facility] [place] [facility] [address] [id number] [place] 1624 Aug, [facility] [place] [facility] [address] [id number] [place] [address]- 5474 Aug, [facility] [place] [facility] [address] [id number] [place] [address]- 2426 Aug, [facility] [place] [facility] [address] [id number] [place] [address]- 7604 Aug, [facility] [place] [facility] [address] [id number] [place] [address]- 7855 Aug, [facility] [place] [facility] [address] [id number] [place] [address]- 7398 Aug, [facility] [place] [facility] [address] [id number] [place] [address]- 1380 Aug, [facility] [place] [facility] [address] [id number] [place] [address]- 5682 Aug, [facility] [place] [facility] [address] [id number] [place] [address]- 8370 Aug, [facility] [place] [facility] [address] [id number] [place] [address]- 3970 Jul, [facility] [place] [facility] [address] [id number] [place] [address]- 2945 Jul, [facility] [place] [facility] [address] [id number] [place] [address]- 2069 Jul, [facility] [place] [facility] [address] [id number] [place] [address]- 9236 Jul, [facility] [place] [facility] [address] [id number] [place] [address]- 7507 Jul, [facility] [place] [facility] [address] [id number] [place] [address]- 5504 17 Jul, 2014 [facility] [place] [facility] [address] [id number] [place] [address]- 4373 Jul, [facility] [place] [facility] [address] [id number] [place] 0866 Jul, [facility] [place] [facility] [address] [id number] [place] [address]- 6574 Jul, [facility] [place] [facility] [address] [id number] [place] [address]- 3954 Jul, [facility] [place] [facility] [address] [id number] [place] 8651 Jun, [facility] [place] [facility] [address] [id number] [place] [address]- 1347 Jun, [facility] [place] [facility] [address] [id number] [place] [address]- 5271 30 Jun, 2014 [facility] [place] [facility] [address] [id number] [place] [address]- 4990 30 Jun, 2014 [facility] [place] [facility] [address] [id number] [place] [address]- 4615 30 Jun, 2014 [facility] [place] [facility] [address] [id number] [place] [address]- 1414 30 Jun, 2014 [facility] [place] [facility] [address] [id number] [place] [address]- 6392 15 Jun, 2014 [facility] [place] [facility] [address] [id number] [place] [address]- 8159 15 Jun, 2014 [facility] [place] [facility] [address] [id number] [place] [address]- 5306 22 May, 2014 [facility] [place] [facility] [address] [id number] [place] [address]- 6444 22 May, 2014 [facility] [place] [facility] [address] [id number] [place] 0062 May, [facility] [place] [facility] [address] [id number] [place] [address]- 1248 May, [facility] [place] [facility] [address] [id number] [place] [address]- 9750 May, [facility] [place] [facility] [address] [id number] [place] [address]- 7629 May, [facility] [place] [facility] [address] [id number] [place] [address]- 0058 May, [facility] [place] [facility] [address] [id number] [place] [address]- 7419 May, [facility] [place] [facility] [address] [id number] [place] [address]- 5174 Apr, [facility] [place] [facility] [address] [id number] [place] [address]- 3450 Apr, [facility] [place] [facility] [address] [id number] [place] [address]- 2279 Apr, [facility] [place] [facility] [address] [id number] [place] [address]- 9691 Apr, [facility] [place] [facility] [address] [id number] [place] [address]- 1669 Mar, [facility] [place] [facility] [address] [id number] [place] [address]- 6007 Mar, [facility] [place] [facility] [address] [id number] [place] [address]- 2756 Mar, [facility] [place] [facility] [address] [id number] [place] [address]- 7076 Mar, [facility] [place] [facility] [address] [id number] [place] [address]- 1220 Mar, [facility] [place] [facility] [address] [id number] [place] [address]- 4342 Mar, [facility] [place] [facility] [address] [id number] [place] [address]- 5729 Jan, [facility] [place] [facility] [address] [id number] [place] [address]- 9038 Jan, [facility] [place] [facility] [address] [id number] [place] [address]- 8051 Jan, [facility] [place] [facility] [address] [id number] [place] [address]- 2101 Jan, [facility] [place] [facility] [address] [id number] [place] [address]- 2776 Jan, [facility] [place] [facility] [address] [id number] [place] [address]- 9982 Jan, [facility] [place] [facility] [address] [id number] [place] [address]- 0964 Jan, [facility] [place] [facility] [address] [id number] [place] [address]- 6654 Jan, [facility] [place] [facility] [address] [id number] [place] [address]- 5747 Jan, [facility] [place] [facility] [address] [id number] [place] [address]- 1639 Jan, [facility] [place] [facility] [address] [id number] [place] [address]- 9281 Jan, [facility] [place] [facility] [address] [id number] [place] [address]- 9298 Jan, [facility] [place] [facility] [address] [id number] [place] [address]- 3403 December, [facility] [place] [facility] [address] [id number] [place] [address]- 1278 December, [facility] [place] [facility] [address] [id number] [place] [address]- 9601 December, [facility] [place] [facility] [address] [id number] [place] [address]- 0357 December, [facility] [place] [facility] [address] [id number] [place] [address]- 3948 Dec, [facility] [place] [facility] [address] [id number] [place] [address]- 5723 Dec, [facility] [place] [facility] [address] [id number] [place] [address]- 6328 Dec, [facility] [place] [facility] [address] [id number] [place] [address]- 7837 Dec, [facility] [place] [facility] [address] [id number] [place] [address]- 9472 Dec, [facility] [place] [facility] [address] [id number] [place] [address]- 8103 Dec, [facility] [place] [facility] [address] [id number] [place] [address]- 1066 Dec, [facility] [place] [facility] [address] [id number] [place] [address]- 1900 Dec, [facility] [place] [facility] [address] [id number] [place] [address]- 0830 Dec, [facility] [place] [facility] [address] [id number] [place] [address]- 2354 Dec, [facility] [place] [facility] [address] [id number] [place] [address]- 1011 Dec, [facility] [place] [facility] [address] [id number] [place] [address]- 9700 Dec, [facility] [place] [facility] [address] [id number] [place] [address]- 7702 Dec, [facility] [place] [facility] [address] [id number] [place] [address]- 2174 Dec, [facility] [place] [facility] [address] [id number] [place] [address]- 3252 Oct, [facility] [place] [facility] [address] [id number] [place] [address]- 6464 31 Oct, 2013 [facility] [place] [facility] [address] [id number] [place] [address]- 3711 29 Oct, 2013 [facility] [place] [facility] [address] [id number] [place] [address]- 1296 29 Oct, 2013 [facility] [place] [facility] [address] [facility] [id number] [place] [address]- 3809 Oct, [facility] [place] [facility] [address] [id number] [place] [address]- 3901 Oct, [facility] [place] [facility] [address] [id number] [place] [id number] Oct, [facility] [place] [facility] [address] [id number] [place] [address]- 8475 Oct, [facility] [place] [facility] [address] [id number] [place] [address]- 5536 Oct, [facility] [place] [facility] [address] [id number] [place] [address]- 3576 Oct, [facility] [place] [facility] [address] [id number] [place] [address]- 8991 Sep, [facility] [place] [facility] [address] [facility] [id number] [place] [address]- 1252 Sep, [facility] [place] [facility] [address] [id number] [place] [address]- 8954 Sep, [facility] [place] [facility] [address] [id number], [place] [address]- 7169 Sep, [facility] [place] [facility] [address] [id number] [place] [address]- 0924 Sep, [facility] [place] [facility] [address] [id number] [place] [address]- 1472 Sep, [facility] [place] [facility] [address] [id number] [place] [address]- 0219 18 Aug, 2013 [facility] [place] [facility] [address] [facility] [id number], [place] [address]- 4550 Aug, [facility] [address] [id number] [address]- 3118 Jul, [facility] [address] [id number] [address]- 2029 Jul, [facility] [address] [id number], [place] [address]- 5215 Jul, [facility] [address] [id number] [address]- 2773 Jul, [facility] [address] [id number] 9919 Jul, IMMUNIZATIONS No Known Immunizations SOCIAL HISTORY Never Assessed REASON FOR VISIT Suboxone rx (01/30-02/26) PLAN OF CARE VITAL SIGNS MEDICATIONS Medication [...]
[2018-08-30 20:38] LABS: BACTERIA,URINE LARGE /HPF; RBC,URINE 0-2 /HPF; RENAL EPITHELIAL CELLS,URINE RARE /HPF
--- OUTSIDE RECORDS SUMMARY | 2018-08-30 20:38 | XMS REPORT ---
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 Active 25820542 Problem Chronic kidney disease, stage 3 N18.3 Active 033549410 Problem CHI I (cervical intraepithelial neoplasia I) N87.0 Active 315848716 Problem Mild episode of recurrent major depressive disorder F33.0 Active 184928374 Problem Addiction to drug F19.20 Active 508469458 Problem Essential hypertension I10 Active 43874866 Problem Opioid use disorder, severe, in sustained remission F11.21 Active 27689040 Problem Irritable bowel syndrome with constipation K58.1 Active 636887152 ALLERGIES No Information ENCOUNTERS Encounter Location Date Diagnosis [place] [id number] [place] [address] 58817- 1114 Mar, Essential hypertension I10 and Irritable bowel syndrome with constipation K58.1 [facility] [address] [place] [address] 60736- 6234 Mar, [facility] [address] [id number] [place] [address] 36848- 8898 Mar, Chronic kidney disease, stage 3 N18.3 ; 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 ; Opioid use disorder, severe, in sustained remission F11.21 and Mixed hyperlipidemia E78.2 [facility] [id number] [place] [address] 23627- 1359 Mar, Mixed hyperlipidemia E78.2 [facility] [address] [place] [address] 97956- 1722 Mar, Opioid use disorder, severe, in early remission F11.21 [facility] [address] [place] [address] 41027- 4102 Mar, [facility] [address] [place] [address] Mar, Opioid use disorder, severe, in sustained remission F11.21 [facility] [address] [place] [address] 23595- 2123 Jan, Opioid use disorder, severe, in early remission F11.21 [facility] [address] [id number] [place] [address] 02902- 4727 December, Opioid use disorder, severe, in early remission F11.21 [facility] [address] [place] [address] December, Opioid use disorder, severe, in sustained remission F11.21 [facility] [address] [place] [address] 34428- 2739 December, Opioid use disorder, severe, in sustained remission F11.21 and 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 [facility] [address] [place] [address] 57616- 4435 December, Opioid use disorder, severe, in early remission F11.21 [facility] [address] [place] [address] Dec, Opioid use disorder, severe, in sustained remission F11.21 [facility] [address] [place] [address] 43054- 9069 Dec, 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 ; Unprotected sexual intercourse Z72.51 ; Pain of left thumb M79.645 ; Mixed hyperlipidemia E78.2 ; Gastroparesis K31.84 ; Essential hypertension I10 and Irritable bowel syndrome with constipation K58.1 [facility] [address] [place] [id number] [address] Dec, Opioid use disorder, severe, in early remission F11.21 [facility] [id number] [place] [address] 05417- 0946 Oct, [facility] [address] [place] [address] 80653 2546 Oct, Opioid use disorder, severe, in early remission F11.21 [facility] [id number] [place] [address] 55375- 3186 Oct, [facility] [id number] [place] [address] 791826- 6566 Oct, Opioid use disorder, severe, in early remission F11.21 [facility] [id number] [place] [address] 525278- 9786 Oct, [facility] [id number] [place] [address] 27545- 8394 Oct, [facility] [address] [place] [address] Oct, Opioid use disorder, severe, in sustained remission F11.21 [facility] [address] [place] [address] 27002- 4517 Sep, [facility] [address] [place] [address] 06826- 0231 Sep, [facility] [address] [place] [address] 39981- 254 Sep, Opioid use disorder, severe, 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 [facility] [address] [place] [address] 438311- 2486 Aug, Opioid use disorder, severe, in early remission F11.21 [facility] [address]- 4227 Jul, [facility] [id number] [place] [address] 72647- 7858 Jul, Chronic kidney disease, stage 3 N18.3 ; Dysthymia F34.1 and Opioid use disorder, severe, in sustained remission F11.21 [facility] [address] [place] [address] Jul, Opioid use disorder, severe, in sustained remission F11.21 [facility] [address] [place] [id number] [place] [address] 23794- 0795 Jul, Long-term use of high-risk medication Z79.899 and Chronic kidney disease, stage 3 N18.3 [place] [address] [place] [id number] [place] [address] 81789- 5461 Jul, Opioid use disorder, severe, 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 [place] [address] [place] [id number] [place] [address] 88860- 6079 Jul, [place] [address] [place] [id number] [place] [address] 84918- 1866 Jun, [place] [address] [place] [id number] [place] [address] 64862- 5627 Jun, [place] [address] [place] [id number] [place] [address] 83677- 7457 Jun, Opioid use disorder, moderate, dependence F11.20 and Opioid use disorder, severe, in 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 [place] [address] [place] [id number] [place] [address] 71226- 9576 Jun, [facility] [address] [id number] [place] [address] 06238- 1245 Jun, Long-term use of high-risk medication Z79.899 [place] [address] [place] [id number] [place] [address] 08848- 4736 Jun, CHI I (cervical intraepithelial neoplasia I) N87.0 [place] [address] [place] [id number] [place] [address] 46176- 8240 May, Opioid use disorder, severe, 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 [facility] [address] [place] [address] 92442- 5231 18 May, 2017 Chronic kidney disease, stage 3 N18.3 [facility] [id number] [place] [address] 50485- 9937 14 May, 2017 Chronic kidney disease, stage 3 N18.3 [facility] [address] [place] [address] 05 May, 2017 Opioid use disorder, severe, in sustained remission F11.21 [facility] [id number] [place] [address] 42045- 7945 Apr, LGSIL on Pap smear of cervix R87.612 [facility] [address] [place] [address] Apr, [facility] [id number] [place] [address] 01044- 9076 Apr, Opioid use disorder, severe, in early remission F11.21 [facility] [id number] [place] [address] 21842- 1912 Apr, Opioid use disorder, severe, in early remission F11.21 [facility] [id number] [place] [address] 51950- 7705 Apr, Opioid use disorder, severe, in early remission F11.21 [facility] [id number] [place] [address] 83137- 2064 Apr, Opioid use disorder, severe, 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 [facility] [address] [place] [address] 48440- 7729 14 Apr, 2017 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 [facility] [id number] [place] [address] 02438- 6050 Apr, Opioid use disorder, severe, in early remission F11.21 [facility] [address] [place] [address] Apr, Opioid use disorder, severe, in sustained remission F11.21 [facility] [address] [place] [address] 09767- 0579 Apr, Opioid use disorder, severe, in early remission F11.21 [facility] [id number] [place] [address] 67874- 0912 Apr, Mild episode of recurrent major depressive disorder F33.0 and Right acute serous otitis media, recurrence not specified H65.01 [facility] [id number] [place] [address] 42836- 4283 Mar, [facility] [id number] [place] [address] 02843- 6053 Mar, Opioid use disorder, severe, in early remission F11.21 [facility] [id number] [place] [address] 39709- 5156 Mar, [facility] [address] [place] [address] Mar, Opioid use disorder, severe, in sustained remission F11.21 [facility] [address] [place] [address] Mar, Opioid use disorder, severe, in sustained remission F11.21 [facility] [id number] [place] [address] 42654- 0540 Mar, Opioid use disorder, severe, in early remission F11.21 [facility] [id number] [place] [address] 03619- 9300 Jan, Opioid use disorder, severe, in early remission F11.21 [facility] [address] [place] [address] Jan, Opioid use disorder, severe, in sustained remission F11.21 [facility] [address] [place] [address] Jan, Opioid use disorder, severe, in sustained remission F11.21 [facility] [id number] [place] [address] 67508- 5756 Jan, Opioid use disorder, severe, in early remission F11.21 [facility] [address] [place] [address] Jan, Opioid use disorder, severe, in sustained remission F11.21 [place] [address] [place] [id number] [place] [address] 53090- 5073 December, Opioid use disorder, severe, 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 [facility] [address] [place] [address] December, Opioid use disorder, severe, in sustained remission F11.[address] 00101- 5560 December, Routine gynecological examination Z01.419 and Chronic kidney disease, stage [address] 46522- 8324 December, Chronic kidney disease, stage 3 N18.3 ; 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 ; Gastroparesis K31.84 ; Essential hypertension I10 and Irritable bowel syndrome with constipation K58.1 [facility] [address] [place] [address] December, Opioid use disorder, severe, in sustained remission F11.21 [place] [id number] [place] [address] 95266- 2171 December, Opioid use disorder, severe, in early remission F11.21 [facility] [address] [place] [address] December, Opioid use disorder, severe, in sustained remission F11.21 [place] [id number] [place] [address] 86832- 9918 December, Encounter for therapeutic drug level monitoring Z51.81 [facility] [address] [place] [address] December, Opioid use disorder, severe, in sustained remission F11.21 [facility] [address] [place] [address] Dec, Opioid use disorder, severe, in sustained remission F11.21 [place] [id number] [place] [address] 12005- 4660 Dec, Opioid use disorder, severe, 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 [facility] [address] [address]- 3291 Dec, [facility] [address] [place] [address] Dec, Opioid use disorder, severe, in sustained remission F11.21 [facility] [id number] [place] [address] 48772- 7907 Dec, Opioid use disorder, severe, in early remission F11.21 [facility] [address] [place] [address] 06 Dec, 2016 Opioid use disorder, severe, in sustained remission F11.21 [place] [address] [place] [id number] [place] [address] 70374- 3854 Dec, 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 [facility] [address] [place] [id number] [place] [address] 80776- 5579 Dec, Opioid use disorder, severe, in sustained remission F11.21 ; Encounter for therapeutic drug level monitoring Z51.81 and Other rodent exterminator ( 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 Z79.899 [facility] [address] [place] [address] 31 Oct, 2016 Opioid use disorder, severe, in sustained remission F11.21 [facility] [id number] [place] [address] 18624- 6265 Oct, Opioid use disorder, severe, in early remission F11.21 [facility] [address] [place] [address] 98405- 1619 Oct, [facility] [address] [place] [address] Oct, Opioid use disorder, severe, in sustained remission F11.21 [facility] [address] [place] [id number] [place] [address] 43376- 7967 15 Oct, 2016 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 [facility] [address] [id number] [place] [address] 71273- 0735 14 Oct, 2016 Routine gynecological examination Z01.419 [facility] [address] [place] [address] 69628- 5967 07 Oct, 2016 Opioid use disorder, severe, in early remission F11.21 [facility] [id number] [place] [address] 61058- 1756 Oct, Opioid use disorder, severe, in early remission F11.21 [place] [id number] [place] [address] 92918- 8519 Oct, Opioid use disorder, severe, in early remission F11.21 [facility] [address] [place] [address] Oct, Opioid use disorder, severe, in sustained remission F11.21 [place] [address] [place] [id number] [place] [address] 22491- 6069 24 Oct, 2016 Opioid use disorder, severe, in early remission F11.[address] 16434- 2273 23 Oct, 2016 Opioid use disorder, severe, in early remission F11.21 [facility] [address] [place] [address] 22 Oct, 2016 Opioid use disorder, severe, in sustained remission F11.21 [place] [address] [place] [id number] [place] [address] 07643- 4280 20 Oct, 2016 Opioid use disorder, severe, in sustained remission F11.21 ; Encounter for therapeutic drug level monitoring Z51.81 and Other rodent exterminator ( 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 Z79.899 [place] [address] [place] [id number] [place] [address] 24680- 4456 16 Oct, 2016 [facility] [address] [place] [address] 14 Oct, 2016 Opioid use disorder, severe, in early remission F11.21 [facility] [address] [place] [address] 10 Oct, 2016 Opioid use disorder, severe, in early remission F11.21 [place] [address] [place] [id number] [place] [address] 65608- 0321 Oct, Opioid use disorder, severe, in early remission F11.21 [facility] [address] [place] [address] 50453- 8746 08 Oct, 2016 [facility] [address] [place] [address] 69722- 3866 Oct, [facility] [id number] [place] [address] 18886- 1711 Oct, [facility] [address] [place] [address] Oct, Opioid use disorder, severe, in early remission F11.21 [facility] [id number] [place] [address] 82749- 9010 Sep, Opioid use disorder, severe, in early remission F11.21 [facility] [address] [place] [address] Sep, Opioid use disorder, severe, in early remission F11.21 [facility] [id number] [place] [address] 08623- 5007 Sep, Opioid use disorder, severe, in early remission F11.21 ; Other rodent exterminator (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 Z79.899 and Encounter for therapeutic drug level monitoring Z51.81 [facility] [address] [place] [address] 89086- 0675 Sep, [facility] [address] [place] [address] 07182- 5785 Sep, [facility] [address] [place] [address] 84663- 5827 Sep, Opioid use disorder, severe, in early remission F11.21 ; 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 ; Chronic kidney disease, stage 3 N18.3 ; Essential hypertension I10 and Irritable bowel syndrome with constipation K58.1 [facility] [address] [place] [address] Sep, Opioid use disorder, severe, in early remission F11.21 [facility] [address] [place] [address] Sep, Opioid use disorder, severe, in early remission F11.[address] 81557- 4063 Sep, Opioid use disorder, moderate, dependence F11.[address] 88263- 6567 Sep, Opioid use disorder, moderate, dependence F11.20 [facility] [address] [place] [address] Sep, Opioid use disorder, severe, in early remission F11.[address] 991644- 2062 Sep, Opioid use disorder, severe, in early remission F11.21 [facility] [address] [place] [address] Aug, Opioid use disorder, severe, in early remission F11.[address] 54964- 7341 Aug, Opioid use disorder, moderate, dependence F11.20 [facility] [address] [place] [address] 56563 -7500 Aug, Bug bite without infection, initial encounter W57.XXXA [address] 43140- 1571 Aug, Opioid use disorder, moderate, dependence F11.20 [facility] [address] [place] [address] Aug, [address] 60751- 4069 Aug, Opioid use disorder, severe, in early remission F11.21 ; Other half-way (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 Z79.899 ; Encounter for therapeutic drug level monitoring Z51.81 and 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 [facility] [address] [place] [address] 15 Aug, 2016 [place] [address] [id number] [place] [address] 94201- 3221 15 Aug, 2016 Opioid use disorder, moderate, dependence F11.20 ; Other rodent exterminator (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 Z79.899 and Encounter for therapeutic drug level monitoring Z51.81 [facility] [id number] [place] [address] 55456- 2048 Aug, [facility] [address] 13974- 0456 Aug, Non-intractable vomiting with nausea, unspecified vomiting type R11.2 [place] [address] 098255- 5283 Aug, Opioid use disorder, moderate, dependence F11.20 and Non- intractable vomiting with nausea, unspecified vomiting type R11.2 [place] [address] [id number] [place] [address] 46607- 4287 Aug, [facility] [id number] [place] [address] 59010- 4201 Aug, Opioid use disorder, moderate, dependence F11.20 [facility] [id number] [place] [address] 26050- 6776 Aug, [facility] [id number] [place] [address] 55259- 5531 Jul, 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 and Opioid use disorder, moderate, dependence F11.20 [facility] [address] [place] [address] Jul, [facility] [id number] [place] [address] 40097- 6217 Jul, [facility] [id number] [place] [address] 33262- 1238 Jul, [facility] [id number] [place] [address] 45341- 0277 Jul, Addiction to drug F19.20 and Chronic kidney disease, stage 3 N18.3 [facility] [address] [place] [address] Jul, Counseling on substance use and abuse Z71.89 [facility] [address] 66524- 0711 Jul, Chronic kidney disease, stage 3 N18.3 [facility] [id number] [place] [address] 74604- 9342 Jul, 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 ; Diarrhea, unspecified type R19.7 and Essential hypertension I10 [facility] [address] 29167- 6201 Jul, [facility] [address] 42141- 7512 Jun, [facility] [address] 08374- 1040 Jun, [facility] [address] 85383- 1388 Apr, 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 [facility] [address] 31264- 9536 Apr, Sore throat and laryngitis J06.0 and Non-intractable vomiting with nausea, unspecified vomiting type R11.2 [facility] [id number] [place] [address] 17353- 8888 Apr, [facility] [id number] [place] [address] 62159- 5981 Mar, [facility] [id number] [place] [address] 93242- 0237 Jan, [facility] [address] 84849- 7048 Jan, [facility] [id number] [place] [address] 46581- 5691 Jan, [place] [address] [place] [id number] [place] [address] 49625- 1725 December, 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 ; Gastroparesis K31.84 ; Mixed hyperlipidemia E78.2 ; Chronic kidney disease, stage 3 N18.3 ; Dysthymia F34.1 and Acute bilateral low back pain without sciatica M54.5 [place] [address] 00411- 5346 December, [place] [address] 55725- 8960 December, [address] 75796- 5978 Aug, Depression F32.9 and Gastroparesis K31.84 [place] [address] 77465- 4892 Aug, Gastroparesis K31.84 [place] [address] 14359- 8820 Jul, Recurrent UTI N39.0 ; Chronic kidney disease, stage 3 N18.3 and 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 [place] [address] [address] Jul, [facility] [address] [id number] Jul, Dental examination Z01.20 and Dental caries K02.[address] [address] Jul, [facility] [address] [place] [phone] Jul, Dysuria R30.0 ; Urinary tract infection N39.0 and Nausea R11.0 [place] [address] [address] Jun, Dysuria R30.0 [place] [address] [id number] [address] Jun, Dysuria R30.0 [place] [address] [address] [place] [id number] [place] [address] Jun, Dysuria R30.0 [place] [address] [address] [place] [id number] [place] [place] [address] 60738- 8456 Jun, [place] [id number] [place] [address] 49152- 2816 Jun, Acute cystitis with hematuria N30.01 [place] [id number] [place] [address] 06079- 6719 May, [place] [id number] [place] [address] 55778- 3846 Apr, Diabetes mellitus without mention of complication, type I [ juvenile type], not stated as uncontrolled 250.01 ; Gastroparesis due to DM 250.60 ; Contraception management V25.9 and Renal insufficiency 593.9 [place] [id number] [place] [address] 31031- 8525 Apr, [place] [id number] [place] [address] 83592- 1222 Apr, [place] [id number] [place] [address] 28137- 0965 Mar, [place] [id number] [place] [address] 70536- 3101 Mar, Hyperlipidemia 272.4 and Hypertensive heart and chronic kidney disease, benign, without heart failure and with chronic kidney disease stage I through stage IV, or unspecified 404.10 [place] [id number] [place] [address] 97536- 9414 Mar, Hyperlipidemia 272.4 ; Hyponatremia 276.1 ; 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 ; Hypertensive heart and chronic kidney disease, benign, without heart failure and with chronic kidney disease stage I through stage IV, or unspecified 404.10 ; Proteinuria 791.0 and Chronic kidney disease (CKD), stage III (moderate) 585.3 [place] [id number] [address] 52[address] Mar, [facility] [id number] [place] [address] 77420- 2553 Mar, Elevated blood sugar level 790.29 [place] [id number] [place] [address] 25378- 6692 Mar, Low grade squamous intraepithelial lesion (LGSIL) on cervical Pap smear 795.03 [place] [id number] [place] [address] 96790- 4254 Mar, Amenorrhea 626.0 [place] [id number] [place] [address] 52274- 3848 Jan, Amenorrhea 626.0 ; Routine gynecological examination V72.31 and Screen for STD (sexually transmitted disease) V74.5 [place] [address] [address]- 7933 Jan, Amenorrhea 626.0 [place] [id number] [place] [address] 34978- 7387 08 Jan, 2015 Routine gynecological examination V72.31 ; Screen for STD ( sexually transmitted disease) V74.5 ; Pap test, as part of routine gynecological examination V76.2 ; Breast cancer screening V76.10 and Amenorrhea 626.0 [place] [address] [address]- 2963 December, [place] [address] [address]- 2065 Dec, [place] [id number] [place] [address] 07870- 4230 Dec, [place] [id number] [address]- 0932 Oct, [place] [id number] [place] [address] [place] [address]- 9627 Oct, [facility] [place] [facility] [address] [id number] [place] [address]- 6545 Oct, [facility] [place] [facility] [address] [id number] [place] 7[address] Oct, [facility] [place] [facility] [address] [id number] [place] [address]- 7536 Oct, [facility] [place] [facility] [address] [id number] [place] [address]- 2253 Oct, [facility] [place] [facility] [address] [id number] [place] [address]- 7315 Oct, [facility] [place] [facility] [address] [id number] [place] [address]- 2085 Oct, [facility] [place] [facility] [address] [id number] [place] [address]- 3217 Oct, [facility] [place] [facility] [address] [id number] [place] [address]- 8607 Oct, [facility] [place] [facility] [address] [id number] [place] [address]- 6219 Oct, [facility] [place] [facility] [address] [id number] [place] [address]- 5548 Sep, [facility] [place] [facility] [address] [id number] [place] [address]- 4184 Sep, [facility] [place] [facility] [address] [id number] [address]- 6932 Sep, [facility] [place] [facility] [address] [id number] [place] [address]- 2213 Sep, [facility] [place] [facility] [address] [id number] [place] [address]- 8003 Sep, [facility] [place] [facility] [address] [id number] [place] [address]- 0265 Sep, [facility] [place] [facility] [address] [id number] [place] [address]- 4090 Sep, [facility] [place] [facility] [address] [id number] [place] [address]- 9569 Sep, [facility] [place] [facility] [address] [id number] [place] [address]- 0058 Sep, [facility] [place] [facility] [address] [id number] [place] [address]- 7876 Sep, [facility] [place] [facility] [address] [id number] [place] [address]- 3086 Sep, [facility] [place] [facility] [address] [id number] [place] [address]- 5345 Sep, [facility] [place] [facility] [address] [id number] [place] [address]- 8198 Sep, [facility] [place] [facility] [address] [id number] [place] [address]- 7196 Sep, [facility] [place] [facility] [address] [id number] [place] [address]- 4324 Sep, [facility] [place] [facility] [address] [id number] [place] [address]- 2967 Sep, [facility] [place] [facility] [address] [id number] [place] [address]- 3135 Sep, [facility] [place] [facility] [address] [id number] [address]- 5489 Sep, [facility] [place] [facility] [address] [id number] [place] [address]- 5223 Sep, [facility] [place] [facility] [address] [id number] [place] [address]- 9420 Sep, [facility] [place] [facility] [address] [id number] [place] [address]- 5038 Aug, [facility] [place] [facility] [address] [id number] [place] [address]- 8794 Aug, [facility] [place] [facility] [address] [id number] [place] [address]- 1080 Aug, [facility] [place] [facility] [address] [id number] [place] 8032 Aug, [facility] [place] [facility] [address] [id number] [place] [address]- 0380 Aug, [facility] [place] [facility] [address] [id number] [place] [address]- 6651 Aug, [facility] [place] [facility] [address] [id number] [place] [address]- 8045 Aug, [facility] [place] [facility] [address] [id number] [place] [address]- 0471 Aug, [facility] [place] [facility] [address] [id number] [place] [address]- 7492 Aug, [facility] [place] [facility] [address] [id number] [place] [address]- 2012 Aug, [facility] [place] [facility] [address] [id number] [place] [address]- 8961 Aug, [facility] [place] [facility] [address] [id number] [place] [address]- 0100 Aug, [facility] [place] [facility] [address] [id number] [place] [address]- 6472 Jul, [facility] [place] [facility] [address] [id number] [place] [address]- 4661 Jul, [facility] [place] [facility] [address] [id number] [place] [address]- 4008 Jul, [facility] [place] [facility] [address] [id number] [place] [address]- 2031 Jul, [facility] [place] [facility] [address] [id number] [place] [address]- 3101 Jul, [facility] [place] [facility] [address] [id number] [place] [address]- 1520 17 Jul, 2014 [facility] [place] [facility] [address] [id number] [place] [address]- 4224 Jul, [facility] [place] [facility] [address] [id number] [place] [address] Jul, [facility] [place] [facility] [address] [id number] [place] [address]- 7638 Jul, [facility] [place] [facility] [address] [id number] [place] [address]- 8046 Jul, [facility] [place] [facility] [address] [id number] [place] 7258 Jun, [facility] [place] [facility] [address] [id number] [place] [address]- 2078 Jun, [facility] [place] [facility] [address] [id number] [place] [address]- 8744 30 Jun, 2014 [facility] [place] [facility] [address] [id number] [place] [address]- 5106 30 Jun, 2014 [facility] [place] [facility] [address] [id number] [place] [address]- 2828 30 Jun, 2014 [facility] [place] [facility] [address] [id number] [place] [address]- 4880 30 Jun, 2014 [facility] [place] [facility] [address] [id number] [place] [address]- 6346 15 Jun, 2014 [facility] [place] [facility] [address] [id number] [place] [address]- 0255 15 Jun, 2014 [facility] [place] [facility] [address] [id number] [place] [address]- 6020 22 May, 2014 [facility] [place] [facility] [address] [id number] [place] [address]- 6079 22 May, 2014 [facility] [place] [facility] [address] [id number] [place] 7634 May, [facility] [place] [facility] [address] [id number] [place] [address]- 6775 May, [facility] [place] [facility] [address] [id number] [place] [address]- 9597 May, [facility] [place] [facility] [address] [id number] [place] [address]- 8397 May, [facility] [place] [facility] [address] [id number] [place] [address]- 5694 May, [facility] [place] [facility] [address] [id number] [place] [address]- 1871 May, [facility] [place] [facility] [address] [id number] [place] [address]- 6302 Apr, [facility] [place] [facility] [address] [id number] [place] [address]- 6445 Apr, [facility] [place] [facility] [address] [id number] [place] [address]- 6473 Apr, [facility] [place] [facility] [address] [id number] [place] [address]- 6155 Apr, [facility] [place] [facility] [address] [id number] [place] [address]- 0435 Mar, [facility] [place] [facility] [address] [id number] [place] [address]- 9631 Mar, [facility] [place] [facility] [address] [id number] [place] [address]- 5338 Mar, [facility] [place] [facility] [address] [id number] [place] [address]- 9140 Mar, [facility] [place] [facility] [address] [id number] [place] [address]- 2083 Mar, [facility] [place] [facility] [address] [id number] [place] [address]- 7349 Mar, [facility] [place] [facility] [address] [id number] [place] [address]- 7864 Jan, [facility] [place] [facility] [address] [id number] [place] [address]- 5348 Jan, [facility] [place] [facility] [address] [id number] [place] [address]- 7149 Jan, [facility] [place] [facility] [address] [id number] [place] [address]- 8671 Jan, [facility] [place] [facility] [address] [id number] [place] [address]- 1521 Jan, [facility] [place] [facility] [address] [id number] [place] [address]- 2415 Jan, [facility] [place] [facility] [address] [id number] [place] [address]- 8744 Jan, [facility] [place] [facility] [address] [id number] [place] [address]- 5192 Jan, [facility] [place] [facility] [address] [id number] [place] [address]- 7121 Jan, [facility] [place] [facility] [address] [id number] [place] [address]- 7022 Jan, [facility] [place] [facility] [address] [id number] [place] [address]- 8268 Jan, [facility] [place] [facility] [address] [id number] [place] [address]- 4456 Jan, [facility] [place] [facility] [address] [id number] [place] [address]- 5066 December, [facility] [place] [facility] [address] [id number] [place] [address]- 9014 December, [facility] [place] [facility] [address] [id number] [place] [address]- 5179 December, [facility] [place] [facility] [address] [id number] [place] [address]- 2879 December, [facility] [place] [facility] [address] [id number] [place] [address]- 4832 Dec, [facility] [place] [facility] [address] [id number] [place] [address]- 4760 Dec, [facility] [place] [facility] [address] [id number] [place] [address]- 7347 Dec, [facility] [place] [facility] [address] [id number] [place] [address]- 6450 Dec, [facility] [place] [facility] [address] [id number] [place] [address]- 4296 Dec, [facility] [place] [facility] [address] [id number] [place] [address]- 6909 Dec, [facility] [place] [facility] [address] [id number] [place] [address]- 7494 Dec, [facility] [place] [facility] [address] [id number] [place] [address]- 4317 Dec, [facility] [place] [facility] [address] [id number] [place] [address]- 8636 Dec, [facility] [place] [facility] [address] [id number] [place] [address]- 2980 Dec, [facility] [place] [facility] [address] [id number] [place] [address]- 1778 Dec, [facility] [place] [facility] [address] [id number] [place] [address]- 9329 Dec, [facility] [place] [facility] [address] [id number] [place] [address]- 0904 Dec, [facility] [place] [facility] [address] [id number] [place] [address]- 9249 Dec, [facility] [place] [facility] [address] [id number] [place] [address]- 0920 Oct, [facility] [place] [facility] [address] [id number] [place] [address]- 7248 31 Oct, 2013 [facility] [place] [facility] [address] [id number] [place] [address]- 7381 29 Oct, 2013 [facility] [place] [facility] [address] [id number] [place] [address]- 8370 29 Oct, 2013 [facility] [place] [facility] [address] [facility] [id number] [place] [address]- 2040 Oct, [facility] [place] [facility] [address] [id number] [place] [address]- 3494 Oct, [facility] [place] [facility] [address] [id number] [place] [address] Oct, [facility] [place] [facility] [address] [id number] [place] [address]- 0426 Oct, [facility] [place] [facility] [address] [id number] [place] [address]- 4865 Oct, [facility] [place] [facility] [address] [id number] [place] [address]- 2797 Oct, [facility] [place] [facility] [address] [id number] [place] [address]- 1526 Sep, [facility] [place] [facility] [address] [facility] [id number] [place] [address]- 6095 Sep, [facility] [place] [facility] [address] [id number] [place] [address]- 4836 Sep, [facility] [place] [facility] [address] [id number] [address]- 0351 Sep, [facility] [place] [facility] [address] [id number] [place] [address]- 4154 Sep, [facility] [place] [facility] [address] [id number] [place] [address]- 8678 Sep, [facility] [place] [facility] [address] [id number] [place] [address]- 7199 18 Aug, 2013 [facility] [place] [facility] [address] [facility] [id number] [address]81 Aug, [facility] [id number] [address]- 1853 Jul, [facility] [id number] [address]- 7217 Jul, [facility] [id number] [address]- 5271 Jul, [facility] [id number] [address]- 3954 Jul, [facility] [id number] [address]- 3854 Jul, IMMUNIZATIONS No Known Immunizations SOCIAL HISTORY Never Assessed REASON FOR VISIT SUBAB F/U PLAN OF CARE Activity Details Follow Up 4 Weeks Reason: VITAL SIGNS MEDICATIONS Unknown Medications RESULTS No Results PROCEDURES Procedure Date Ordered Result Body Site Psychotherapy, patient &/family, 30 minutes, established patient January 22, 2018 INSTRUCTIONS MEDICATIONS ADMINISTERED No Known Medications [...]
--- OUTSIDE RECORDS SUMMARY | 2018-08-30 20:39 | XMS REPORT ---
Author Author NOEMY MORGAN Organization [facility] Address [address] 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 Active 53477882 Problem Chronic kidney disease, stage 3 N18.3 Active 058627637 Problem CHI I (cervical intraepithelial neoplasia I) N87.0 Active 292611885 Problem Mild episode of recurrent major depressive disorder F33.0 Active 863629460 Problem Addiction to drug F19.20 Active 767373628 Problem Essential hypertension I10 Active 00745031 Problem Opioid use disorder, severe, in sustained remission F11.21 Active 02243696 Problem Irritable bowel syndrome with constipation K58.1 Active [id number] ALLERGIES No Information ENCOUNTERS Encounter Location Date Diagnosis [facility] [id number] [place] [address] 71920- 2724 Mar, Essential hypertension I10 and Irritable bowel syndrome with constipation K58.1 [facility] [id number] [place] [address] 85818- 5583 Mar, [facility] [id number] [place] [address] 55428- 9460 Mar, Chronic kidney disease, stage 3 N18.3 ; 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 ; Opioid use disorder, severe, in sustained remission F11.21 and Mixed hyperlipidemia E78.2 [facility] [id number] [place] [address] 86208- 3734 Mar, Mixed hyperlipidemia E78.2 [facility] [address] [place] [address] 63713- 5509 Mar, Opioid use disorder, severe, in early remission F11.21 [facility] [address] [place] [address] 53123- 5541 Mar, [facility] [address] [place] [address] Mar, Opioid use disorder, severe, in sustained remission F11.21 [facility] [address] [place] [address] 08764- 9389 Jan, Opioid use disorder, severe, in early remission F11.21 [facility] [id number] [place] [address] 10528- 0047 December, Opioid use disorder, severe, in early remission F11.21 [facility] [address] [place] [address] December, Opioid use disorder, severe, in sustained remission F11.21 [facility] [address] [place] [address] 88918- 0927 December, Opioid use disorder, severe, in sustained remission F11.21 and 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 [facility] [address] [place] [address] 56078- 0788 December, Opioid use disorder, severe, in early remission F11.21 [facility] [address] [place] [address] Dec, Opioid use disorder, severe, in sustained remission F11.21 [facility] [address] [place] [address] 94299- 5171 Dec, 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 ; Unprotected sexual intercourse Z72.51 ; Pain of left thumb M79.645 ; Mixed hyperlipidemia E78.2 ; Gastroparesis K31.84 ; Essential hypertension I10 and Irritable bowel syndrome with constipation K58.1 [facility] [address] [place] [id number] [address] Dec, Opioid use disorder, severe, in early remission F11.21 [facility] [id number] [place] [address] 55467- 1156 Oct, [facility] [address] [place] [address] 35680 2546 Oct, Opioid use disorder, severe, 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 [facility] [id number] [place] [address] 01893- 0706 Oct, [facility] [id number] [place] [address] 334774- 9016 Oct, Opioid use disorder, severe, 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 [facility] [id number] [place] [address] 638257- 9276 Oct, [facility] [id number] [place] [address] 11221- 6618 Oct, [facility] [address] [place] [address] Oct, Opioid use disorder, severe, in sustained remission F11.21 [facility] [address] [place] [address] 96902- 2314 Sep, [facility] [address] [place] [address] 93398- 3343 Sep, [facility] [address] [place] [address] 11499- 2545 Sep, Opioid use disorder, severe, 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 [facility] [address] [place] [address] 881289- 5996 Aug, Opioid use disorder, severe, 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 [facility] [address] [address] Jul, [facility] [id number] [place] [address] 69107- 1572 Jul, Chronic kidney disease, stage 3 N18.3 ; Dysthymia F34.1 and Opioid use disorder, severe, in sustained remission F11.21 [facility] [address] [place] [address] Jul, Opioid use disorder, severe, in sustained remission F11.21 [facility] [id number] [place] [address] 43629- 9386 Jul, Long-term use of high-risk medication Z79.899 and Chronic kidney disease, stage 3 N18.3 [place] [id number] [place] [address] 71126- 0030 Jul, Opioid use disorder, severe, 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 [facility] [id number] [place] [address] 15410- 0432 Jul, [facility] [id number] [place] [address] 34952- 3575 Jun, [facility] [id number] [place] [address] 56216- 5361 Jun, [facility] [id number] [place] [address] 70436- 5187 Jun, Opioid use disorder, moderate, dependence F11.20 and Opioid use disorder, severe, 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 [facility] [id number] [place] [address] 73539- 2868 Jun, [facility] [id number] [place] [address] 03237- 1740 Jun, Long-term use of high-risk medication Z79.899 [facility] [id number] [place] [address] 12195- 6837 Jun, CHI I (cervical intraepithelial neoplasia I) N87.0 [facility] [id number] [place] [address] 35152- 4106 May, Opioid use disorder, severe, 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 [facility] [address] [place] [address] 15767- 2655 18 May, 2017 Chronic kidney disease, stage 3 N18.3 [facility] [id number] [place] [address] 43956- 2292 14 May, 2017 Chronic kidney disease, stage 3 N18.3 [facility] [address] [place] [address] 05 May, 2017 Opioid use disorder, severe, in sustained remission F11.21 [facility] [id number] [place] [address] 56811- 2946 Apr, LGSIL on Pap smear of cervix R87.612 [facility] [address] [place] [address] Apr, [facility] [id number] [place] [address] 81978- 1121 Apr, Opioid use disorder, severe, in early remission F11.21 [facility] [id number] [place] [address] 83776- 7349 Apr, Opioid use disorder, severe, 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 [facility] [id number] [place] [address] 22392- 6822 Apr, Opioid use disorder, severe, in early remission F11.21 [facility] [id number] [place] [address] 31114- 0697 Apr, Opioid use disorder, severe, in early remission F11.21 [facility] [address] [place] [address] 67147- 3050 14 Apr, 2017 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 [facility] [id number] [place] [address] 96863- 2802 Apr, Opioid use disorder, severe, in early remission F11.21 [facility] [address] [place] [address] Apr, Opioid use disorder, severe, in sustained remission F11.21 [facility] [address] [place] [address] 80888- 9817 Apr, Opioid use disorder, severe, in early remission F11.21 [facility] [id number] [place] [address] 88535- 8724 Apr, Mild episode of recurrent major depressive disorder F33.0 and Right acute serous otitis media, recurrence not specified H65.01 [facility] [id number] [place] [address] 46831- 3545 Mar, [facility] [id number] [place] [address] 35770- 5350 Mar, Opioid use disorder, severe, in early remission F11.21 [facility] [id number] [place] [address] 99571- 4101 Mar, [facility] [address] [place] [address] Mar, Opioid use disorder, severe, in sustained remission F11.21 [facility] [address] [place] [address] Mar, Opioid use disorder, severe, in sustained remission F11.21 [facility] [id number] [place] [address] 51575- 6896 Mar, Opioid use disorder, severe, in early remission F11.21 [facility] [id number] [place] [address] 60599- 7489 Jan, Opioid use disorder, severe, in early remission F11.21 [facility] [address] [place] [address] Jan, Opioid use disorder, severe, in sustained remission F11.21 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 [facility] [address] [place] [address] December, Opioid use disorder, severe, in sustained remission F11.[address] 18519- 8322 December, Routine gynecological examination Z01.419 and Chronic kidney disease, stage [address] 49351- 8933 December, Chronic kidney disease, stage 3 N18.3 ; 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 ; Gastroparesis K31.84 ; Essential hypertension I10 and Irritable bowel syndrome with constipation K58.1 [facility] [address] [place] [address] December, Opioid use disorder, severe, in sustained remission F11.21 [place] [id number] [place] [address] 58814- 4682 December, Opioid use disorder, severe, in early remission F11.21 [facility] [address] [place] [address] December, Opioid use disorder, severe, in sustained remission F11.21 [place] [id number] [place] [address] 29746- 4880 December, Encounter for therapeutic drug level monitoring Z51.81 [facility] [address] [place] [address] December, Opioid use disorder, severe, in sustained remission F11.21 [facility] [address] [place] [address] Dec, Opioid use disorder, severe, in sustained remission F11.21 [place] [id number] [place] [address] 92777- 6416 Dec, Opioid use disorder, severe, in early remission F11.21 [facility] [address] [address] Dec, 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 [facility] [id number] [place] [address] 86176- 9252 Dec, Opioid use disorder, severe, in sustained remission F11.21 ; Encounter for therapeutic drug level monitoring Z51.81 and Other usp ( 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 Z79.899 [facility] [address] [place] [address] 31 Oct, 2016 Opioid use disorder, severe, in sustained remission F11.21 [facility] [id number] [place] [address] 38604- 1854 Oct, Opioid use disorder, severe, in early remission F11.21 [facility] [address] [place] [address] 49465- 1060 Oct, [facility] [address] [place] [address] Oct, Opioid use disorder, severe, in sustained remission F11.21 [facility] [id number] [place] [address] 07121- 0028 15 Oct, 2016 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 [facility] [id number] [place] [address] 94186- 7081 14 Oct, 2016 Routine gynecological examination Z01.419 [facility] [address] [place] [address] 67587- 8576 07 Oct, 2016 Opioid use disorder, severe, in early remission F11.21 [facility] [id number] [place] [address] 45492- 0536 Oct, Opioid use disorder, severe, in early remission F11.21 [place] [id number] [place] [address] 81585- 2743 Oct, Opioid use disorder, severe, in early remission F11.21 [facility] [address] [place] [address] Oct, Opioid use disorder, severe, in sustained remission F11.21 [place] [id number] [place] [address] 11255- 3466 24 Oct, 2016 Opioid use disorder, severe, in early remission F11.[address] 95805- 0246 23 Oct, 2016 Opioid use disorder, severe, in early remission F11.21 [facility] [address] [place] [address] 22 Oct, 2016 Opioid use disorder, severe, in sustained remission F11.21 [place] [id number] [place] [address] 67689- 4557 20 Oct, 2016 Opioid use disorder, severe, in sustained remission F11.21 ; Encounter for therapeutic drug level monitoring Z51.81 and Other intermediate card tender ( 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 Z79.899 [place] [id number] [place] [address] 97730- 7430 16 Oct, 2016 [facility] [address] [place] [address] 14 Oct, 2016 Opioid use disorder, severe, in early remission F11.21 [facility] [address] [place] [address] 10 Oct, 2016 Opioid use disorder, severe, in early remission F11.21 [place] [id number] [place] [address] 33180- 9895 Oct, Opioid use disorder, severe, in early remission F11.21 [facility] [address] [place] [address] 38830- 8426 08 Oct, 2016 [facility] [address] [place] [address] 66683- 0886 Oct, [facility] [id number] [place] [address] 81541- 3717 Oct, [facility] [address] [place] [address] Oct, Opioid use disorder, severe, in early remission F11.21 [facility] [id number] [place] [address] 99982- 2527 Sep, Opioid use disorder, severe, in early remission F11.21 [facility] [address] [place] [address] Sep, Opioid use disorder, severe, in early remission F11.21 [facility] [id number] [place] [address] 77486- 3503 Sep, Opioid use disorder, severe, in early remission F11.21 ; Other intermediate card tender (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 Z79.899 and Encounter for therapeutic drug level monitoring Z51.81 [facility] [address] [place] [address] 36960- 6205 Sep, [facility] [address] [place] [address] 74528- 0312 Sep, [facility] [address] [place] [address] 57981- 4344 Sep, Opioid use disorder, severe, 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 ; 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 ; Chronic kidney disease, stage 3 N18.3 ; Essential hypertension I10 and Irritable bowel syndrome with constipation K58.1 [facility] [address] [place] [address] Sep, Opioid use disorder, severe, in early remission F11.21 [facility] [address] [place] [address] Sep, Opioid use disorder, severe, in early remission F11.[address] 42764- 0317 Sep, Opioid use disorder, moderate, dependence F11.[address] 87396- 9672 Sep, Opioid use disorder, moderate, dependence F11.20 [facility] [address] [place] [address] Sep, Opioid use disorder, severe, in early remission F11.[address] 565792- 1180 Sep, Opioid use disorder, severe, 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 [facility] [address] [place] [address] Aug, Opioid use disorder, severe, in early remission F11.[address] 77355- 6339 Aug, Opioid use disorder, moderate, dependence F11.20 [facility] [address] [place] [address] 50884 -4136 Aug, Bug bite without infection, initial encounter W57.XXXA [address] 86065- 2446 Aug, Opioid use disorder, moderate, dependence F11.20 [facility] [address] [place] [address] Aug, [address] 90953- 4778 Aug, Opioid use disorder, severe, in early remission F11.21 ; Other usp (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 Z79.899 ; Encounter for therapeutic drug level monitoring Z51.81 and 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 [facility] [address] [place] [address] 15 Aug, 2016 [place] [id number] [place] [address] 85448- 6432 15 Aug, 2016 Opioid use disorder, moderate, dependence F11.20 ; Other usp (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 Z79.899 and Encounter for therapeutic drug level monitoring Z51.81 [facility] [id number] [place] [address] 57234- 1287 Aug, [facility] [address] 25579- 5911 Aug, Non-intractable vomiting with nausea, unspecified vomiting type R11.2 [place] [address] 510616- 6141 Aug, Opioid use disorder, moderate, dependence F11.20 and Non- intractable vomiting with nausea, unspecified vomiting type R11.2 [place] [id number] [place] [address] 96048- 0851 Aug, [facility] [id number] [place] [address] 55004- 8525 Aug, Opioid use disorder, moderate, dependence F11.20 [facility] [id number] [place] [address] 99464- 1866 Aug, [facility] [id number] [place] [address] 67361- 8180 Jul, 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 and Opioid use disorder, moderate, dependence F11.20 [facility] [address] [place] [address] Jul, [facility] [id number] [place] [address] 58338- 9779 Jul, [facility] [id number] [place] [address] 01947- 9261 Jul, [facility] [id number] [place] [address] 61568- 3021 Jul, Addiction to drug F19.20 and Chronic kidney disease, stage 3 N18.3 [facility] [address] [place] [address] Jul, Counseling on substance use and abuse Z71.89 [facility] [address] 92315- 7111 Jul, Chronic kidney disease, stage 3 N18.3 [facility] [id number] [place] [address] 26922- 2381 Jul, 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 ; Diarrhea, unspecified type R19.7 and Essential hypertension I10 [facility] [address] 56543- 0776 Jul, [facility] [address] 58608- 3569 Jun, [facility] [address] 47061- 8249 Jun, [facility] [address] 36566- 0131 Apr, 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 [facility] [address] 13141- 8472 Apr, Sore throat and laryngitis J06.0 and Non-intractable vomiting with nausea, unspecified vomiting type R11.2 [facility] [id number] [place] [address] 54942- 7333 Apr, [facility] [id number] [place] [address] 42549- 1766 Mar, [facility] [id number] [place] [address] 14720- 0874 Jan, [facility] [address] 42810- 7744 Jan, [facility] [id number] [place] [address] 90492- 7908 Jan, [facility] [id number] [place] [address] 31298- 3353 December, 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 ; Gastroparesis K31.84 ; Mixed hyperlipidemia E78.2 ; Chronic kidney disease, stage 3 N18.3 ; Dysthymia F34.1 and Acute bilateral low back pain without sciatica M54.5 [place] [address] 20604- 0917 December, [place] [address] 03664- 1479 December, [address] 58355- 7025 Aug, Depression F32.9 and Gastroparesis K31.84 [place] [address] 40462- 1219 Aug, Gastroparesis K31.84 [place] [address] 70977- 3190 Jul, Recurrent UTI N39.0 ; Chronic kidney disease, stage 3 N18.3 and 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 [place] [address] [address] Jul, [facility] [address] [id number] Jul, Dental examination Z01.20 and Dental caries K02.[address] [address] Jul, [facility] [address] [place] [id number] Jul, Dysuria R30.0 ; Urinary tract infection N39.0 and Nausea R11.0 [place] [address] [address] Jun, Dysuria R30.0 [place] [address] [address] Jun, Dysuria R30.0 [place] [address] [place] [id number] [place] [address] 15279- 9254 Jun, Dysuria R30.0 [place] [address] [place] [id number] [place] [address] 69060- 2777 Jun, [place] [address] [place] [id number] [place] [address] 89542- 4844 Jun, Acute cystitis with hematuria N30.01 [place] [address] [place] [id number] [place] [address] 46944- 7345 May, [place] [address] [place] [id number] [place] [address] 43419- 6865 Apr, Diabetes mellitus without mention of complication, type I [ juvenile type], not stated as uncontrolled 250.01 ; Gastroparesis due to DM 250.60 ; Contraception management V25.9 and Renal insufficiency 593.9 [place] [address] [place] [id number] [place] [address] 28989- 4634 Apr, [place] [address] [place] [id number] [place] [address] 74117- 8473 Apr, [place] [address] [place] [id number] [place] [address] 20614- 2875 Mar, [place] [address] [place] [id number] [place] [address] 66344- 9691 Mar, Hyperlipidemia 272.4 and Hypertensive heart and chronic kidney disease, benign, without heart failure and with chronic kidney disease stage I through stage IV, or unspecified 404.10 [place] [id number] [place] [address] 93059- 8663 Mar, Hyperlipidemia 272.4 ; Hyponatremia 276.1 ; 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 ; Hypertensive heart and chronic kidney disease, benign, without heart failure and with chronic kidney disease stage I through stage IV, or unspecified 404.10 ; Proteinuria 791.0 and Chronic kidney disease (CKD), stage III (moderate) 585.3 [place] [address] [address] Mar, [facility] [address] [place] [id number] [place] [address] 08674- 2218 Mar, Elevated blood sugar level 790.29 [place] [address] [place] [id number] [place] [address] 59146- 4056 Mar, Low grade squamous intraepithelial lesion (LGSIL) on cervical Pap smear 795.03 [place] [id number] [place] [address] 21672- 0281 Mar, Amenorrhea 626.0 [place] [address] [place] [id number] [place] [address] 04951- 6254 Jan, Amenorrhea 626.0 ; Routine gynecological examination V72.31 and Screen for STD (sexually transmitted disease) V74.5 [place] [id number] [address] 0970 Jan, Amenorrhea 626.0 [place] [address] [place] [id number] [place] [address] 73865- 4904 08 Jan, 2015 Routine gynecological examination V72.31 ; Screen for STD ( sexually transmitted disease) V74.5 ; Pap test, as part of routine gynecological examination V76.2 ; Breast cancer screening V76.10 and Amenorrhea 626.0 [place] [address] [address] 6349 December, [place] [address] [address]- 4910 Dec, [place] [id number] [place] [address] 45304- 4219 Dec, [place] [address] [address]- 4528 Oct, [place] [address] [place] [id number] [place] [address] [place] [address]- 8898 Oct, [facility] [place] [facility] [address] [id number] [place] [address]- 8397 Oct, [facility] [place] [facility] [address] [id number] [place]843 Oct, [facility] [place] [facility] [address] [id number] [place] [address]- 4046 Oct, [facility] [place] [facility] [address] [id number] [place] [address]- 8841 Oct, [facility] [place] [facility] [address] [id number] [place] [address]- 5606 Oct, [facility] [place] [facility] [address] [id number] [place] [address]- 9331 Oct, [facility] [place] [facility] [address] [id number] [place] [address]- 2444 Oct, [facility] [place] [facility] [address] [id number] [place] [address]- 9357 Oct, [facility] [place] [facility] [address] [id number] [place] [address]- 8247 Oct, [facility] [place] [facility] [address] [id number] [place] [address]- 4852 Sep, [facility] [place] [facility] [address] [id number] [place] [address]- 1295 Sep, [facility] [place] [facility] [address] [id number] [address]- 2522 Sep, [facility] [place] [facility] [address] [id number] [place] [address]- 1857 Sep, [facility] [place] [facility] [address] [id number] [place] [address]- 2700 Sep, [facility] [place] [facility] [address] [id number] [place] [address]- 6261 Sep, [facility] [place] [facility] [address] [id number] [place] [address]- 6062 Sep, [facility] [place] [facility] [address] [id number] [place] [address]- 9682 Sep, [facility] [place] [facility] [address] [id number] [place] [address]- 9669 Sep, [facility] [place] [facility] [address] [id number] [place] [address]- 3082 Sep, [facility] [place] [facility] [address] [id number] [place] [address]- 5887 Sep, [facility] [place] [facility] [address] [id number] [place] [address]- 8300 Sep, [facility] [place] [facility] [address] [id number] [place] [address]- 7424 Sep, [facility] [place] [facility] [address] [id number] [place] [address]- 1077 Sep, [facility] [place] [facility] [address] [id number] [place] [address]- 7785 Sep, [facility] [place] [facility] [address] [id number] [place] [address]- 2711 Sep, [facility] [place] [facility] [address] [id number] [place] [address]- 3264 Sep, [facility] [place] [facility] [address] [id number], [place] [address]- 6833 Sep, [facility] [place] [facility] [address] [id number] [place] [address]- 6275 Sep, [facility] [place] [facility] [address] [id number] [place] [address]- 6442 Sep, [facility] [place] [facility] [address] [id number] [place] [address]- 9793 Aug, [facility] [place] [facility] [address] [id number] [place] [address]- 7430 Aug, [facility] [place] [facility] [address] [id number] [place] [address]- 6458 Aug, [facility] [place] [facility] [address] [id number] [place] 9940 Aug, [facility] [place] [facility] [address] [id number] [place] [address]- 6029 Aug, [facility] [place] [facility] [address] [id number] [place] [address]- 4721 Aug, [facility] [place] [facility] [address] [id number] [place] [address]- 1351 Aug, [facility] [place] [facility] [address] [id number] [place] [address]- 7152 Aug, [facility] [place] [facility] [address] [id number] [place] [address]- 0198 Aug, [facility] [place] [facility] [address] [id number] [place] [address]- 0182 Aug, [facility] [place] [facility] [address] [id number] [place] [address]- 2625 Aug, [facility] [place] [facility] [address] [id number] [place] [address]- 7738 Aug, [facility] [place] [facility] [address] [id number] [place] [address]- 2676 Jul, [facility] [place] [facility] [address] [id number] [place] [address]- 3193 Jul, [facility] [place] [facility] [address] [id number] [place] [address]- 9171 Jul, [facility] [place] [facility] [address] [id number] [place] [address]- 3514 Jul, [facility] [place] [facility] [address] [id number] [place] [address]- 8803 Jul, [facility] [place] [facility] [address] [id number] [place] [address]- 1157 17 Jul, 2014 [facility] [place] [facility] [address] [id number] [place] [address]- 5530 Jul, [facility] [place] [facility] [address] [id number] [place]- 8042 Jul, [facility] [place] [facility] [address] [id number] [place] [address]- 1757 Jul, [facility] [place] [facility] [address] [id number] [place] [address]- 9683 Jul, [facility] [place] [facility] [address] [id number] [place] 5279 Jun, [facility] [place] [facility] [address] [id number] [place] [address]- 9525 Jun, [facility] [place] [facility] [address] [id number] [place] [address]- 6198 30 Jun, 2014 [facility] [place] [facility] [address] [id number] [place] [address]- 4283 30 Jun, 2014 [facility] [place] [facility] [address] [id number] [place] [address]- 5138 30 Jun, 2014 [facility] [place] [facility] [address] [id number] [place] [address]- 4667 30 Jun, 2014 [facility] [place] [facility] [address] [id number] [place] [address]- 3613 15 Jun, 2014 [facility] [place] [facility] [address] [id number] [place] [address]- 9791 15 Jun, 2014 [facility] [place] [facility] [address] [id number] [place] [address]- 5879 22 May, 2014 [facility] [place] [facility] [address] [id number] [place] [address]- 1788 22 May, 2014 [facility] [place] [facility] [address] [id number] [place] [address]774 May, [facility] [place] [facility] [address] [id number] [place] [address]- 7732 May, [facility] [place] [facility] [address] [id number] [place] [address]- 1153 May, [facility] [place] [facility] [address] [id number] [place] [address]- 4850 May, [facility] [place] [facility] [address] [id number] [place] [address]- 7104 May, [facility] [place] [facility] [address] [id number] [place] [address]- 2615 May, [facility] [place] [facility] [address] [id number] [place] [address]- 0458 Apr, [facility] [place] [facility] [address] [id number] [place] [address]- 8930 Apr, [facility] [place] [facility] [address] [id number] [place] [address]- 2955 Apr, [facility] [place] [facility] [address] [id number] [place] [address]- 7753 Apr, [facility] [place] [facility] [address] [id number] [place] [address]- 8067 Mar, [facility] [place] [facility] [address] [id number] [place] [address]- 8136 Mar, [facility] [place] [facility] [address] [id number] [place] [address]- 6370 Mar, [facility] [place] [facility] [address] [id number] [place] [address]- 8963 Mar, [facility] [place] [facility] [address] [id number] [place] [address]- 8555 Mar, [facility] [place] [facility] [address] [id number] [place] [address]- 5140 Mar, [facility] [place] [facility] [address] [id number] [place] [address]- 9974 Jan, [facility] [place] [facility] [address] [id number] [place] [address]- 2980 Jan, [facility] [place] [facility] [address] [id number] [place] [address]- 4560 Jan, [facility] [place] [facility] [address] [id number] [place] [address]- 5057 Jan, [facility] [place] [facility] [address] [id number] [place] [address]- 2824 Jan, [facility] [place] [facility] [address] [id number] [place] [address]- 9962 Jan, [facility] [place] [facility] [address] [id number] [place] [address]- 1719 Jan, [facility] [place] [facility] [address] [id number] [place] [address]- 2949 Jan, [facility] [place] [facility] [address] [id number] [place] [address]- 0534 Jan, [facility] [place] [facility] [address] [id number] [place] [address]- 4240 Jan, [facility] [place] [facility] [address] [id number] [place] [address]- 9916 Jan, [facility] [place] [facility] [address] [id number] [place] [address]- 9422 Jan, [facility] [place] [facility] [address] [id number] [place] [address]- 5993 December, [facility] [place] [facility] [address] [id number] [place] [address]- 9574 December, [facility] [place] [facility] [address] [id number] [place] [address]- 4629 December, [facility] [place] [facility] [address] [id number] [place] [address]- 3724 December, [facility] [place] [facility] [address] [id number] [place] [address]- 6132 Dec, [facility] [place] [facility] [address] [id number] [place] [address]- 7695 Dec, [facility] [place] [facility] [address] [id number] [place] [address]- 6193 Dec, [facility] [place] [facility] [address] [id number] [place] [address]- 8532 Dec, [facility] [place] [facility] [address] [id number] [place] [address]- 5346 Dec, [facility] [place] [facility] [address] [id number] [place] [address]- 3144 Dec, [facility] [place] [facility] [address] [id number] [place] [address]- 0070 Dec, [facility] [place] [facility] [address] [id number] [place] [address]- 1530 Dec, [facility] [place] [facility] [address] [id number] [place] [address]- 1196 Dec, [facility] [place] [facility] [address] [id number] [place] [address]- 6982 Dec, [facility] [place] [facility] [address] [id number] [place] [address]- 3438 Dec, [facility] [place] [facility] [address] [id number] [place] [address]- 3830 Dec, [facility] [place] [facility] [address] [id number] [place] [address]- 1010 Dec, [facility] [place] [facility] [address] [id number] [place] [address]- 1009 Dec, [facility] [place] [facility] [address] [id number] [place] [address]- 0364 Oct, [facility] [place] [facility] [address] [id number] [place] [address]- 2109 31 Oct, 2013 [facility] [place] [facility] [address] [id number] [place] [address]- 1101 29 Oct, 2013 [facility] [place] [facility] [address] [id number] [place] [address]- 9791 29 Oct, 2013 [facility] [place] [facility] [address] [facility] [id number] [place] [address]- 8171 Oct, [facility] [place] [facility] [address] [id number] [place] [address]- 9763 Oct, [facility] [place] [facility] [address] [id number] [place] [address] Oct, [facility] [place] [facility] [address] [id number] [place] [address]- 5473 Oct, [facility] [place] [facility] [address] [id number] [place] [address]- 0141 Oct, [facility] [place] [facility] [address] [id number] [place] [address]- 9480 Oct, [facility] [place] [facility] [address] [id number] [place] [address]- 9352 Sep, [facility] [place] [facility] [address] [facility] [id number] [place] [address]- 6956 Sep, [facility] [place] [facility] [address] [id number] [place] [address]- 8359 Sep, [facility] [place] [facility] [address] [id number], [place] [address]- 7994 Sep, [facility] [place] [facility] [address] [id number] [place] [address]- 1002 Sep, [facility] [place] [facility] [address] [id number] [place] [address]- 8550 Sep, [facility] [place] [facility] [address] [id number] [place] [address]- 8571 18 Aug, 2013 [facility] [place] [facility] [address] [facility] [id number], [place] [address]- 4556 Aug, [facility] [id number], [place] [address]- 4343 Jul, [facility] [id number], [place] [address]- 1462 Jul, [facility] [id number], [place] [address]- 6168 Jul, [facility] [id number], [place] [address]- 4052 Jul, [facility] [address] [id number], [place] [address]- 1517 Jul, IMMUNIZATIONS No Known Immunizations SOCIAL HISTORY Never Assessed REASON FOR VISIT Suboxone rx (01/02-01/29) PLAN OF CARE VITAL SIGNS MEDICATIONS Medication [...]
--- OUTSIDE RECORDS SUMMARY | 2018-08-30 20:40 | XMS REPORT ---
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 Active 01522033 Problem Chronic kidney disease, stage 3 N18.3 Active 315494818 Problem CHI I (cervical intraepithelial neoplasia I) N87.0 Active 926834584 Problem Mild episode of recurrent major depressive disorder F33.0 Active 858178603 Problem Addiction to drug F19.20 Active 671761781 Problem Essential hypertension I10 Active 78001050 Problem Opioid use disorder, severe, in sustained remission F11.21 Active 89567333 Problem Irritable bowel syndrome with constipation K58.1 Active 137082732 ALLERGIES Substance Reaction Event Type Date Status Penicillin V Potassium rash Drug Allergy Dec, Active Cipro nausea and vomiting Drug Allergy Dec, Active Bactrim DS rash Drug Allergy Dec, Active ENCOUNTERS Encounter Location Date Diagnosis [facility] [address] [place] [address] Apr, [facility] [address] [place] [address] Mar, [facility] [address], [place] [address] Mar, [facility] [id number], [place] [address] Mar, Mixed hyperlipidemia E78.2 [facility] [id number] [place] [address] 49994- 6863 Mar, Opioid use disorder, severe, in early remission F11.21 [facility] [id number] [place] [address] 18321- 1137 Mar, [facility] [address] [place] [address] Mar, Opioid use disorder, severe, in sustained remission F11.21 [facility] [id number] [place] [address] 12143- 3971 Jan, Opioid use disorder, severe, 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 [facility] [id number] [place] [address] 47195- 3078 December, Opioid use disorder, severe, in early remission F11.21 [facility] [address] [place] [address] December, Opioid use disorder, severe, in sustained remission F11.21 [facility] [id number] [place] [address] 23955- 8230 December, Opioid use disorder, severe, in sustained remission F11.21 and 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 [facility] [id number] [place] [address] 94578- 5727 December, Opioid use disorder, severe, 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 [facility] [address] [place] [address] Dec, Opioid use disorder, severe, in sustained remission F11.21 [facility] [id number] [place] [address] 83771- 3477 Dec, 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 ; Unprotected sexual intercourse Z72.51 ; Pain of left thumb M79.645 ; Mixed hyperlipidemia E78.2 ; Gastroparesis K31.84 ; Essential hypertension I10 and Irritable bowel syndrome with constipation K58.1 [facility] [address] [place] [address] 54418- 9465 Dec, Opioid use disorder, severe, in early remission F11.21 [facility] [id number] [place] [address] 42111- 7523 Oct, [facility] [id number] [place] [address] 429963- 2976 Oct, Opioid use disorder, severe, 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 [facility] [id number] [place] [address] 53885- 7676 Oct, [facility] [id number] [place] [address] 988545- 7756 Oct, Opioid use disorder, severe, 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 [facility] [id number] [place] [address] 55287- 2136 Oct, [facility] [id number] [place] [address] 908407- 8986 Oct, [facility] [address] [place] [address] Oct, Opioid use disorder, severe, in sustained remission F11.21 [facility] [id number] [place] [address] 96117- 1973 Sep, [facility] [id number] [place] [address] 69414- 0758 Sep, [facility] [id number] [place] [address] 09027- 7376 Sep, Opioid use disorder, severe, 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 [facility] [id number] [place] [address] 45316- 6384 Aug, Opioid use disorder, severe, 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 [facility] [id number] [place] [address] 781652- 4896 Jul, [facility] [id number] [place] [address] 65626- 6152 Jul, Chronic kidney disease, stage 3 N18.3 ; Dysthymia F34.1 and Opioid use disorder, severe, in sustained remission F11.21 [facility] [address] [place] [address] Jul, Opioid use disorder, severe, in sustained remission F11.21 [facility] [id number] [place] [address] 69230- 4533 Jul, Long-term use of high-risk medication Z79.899 and Chronic kidney disease, stage 3 N18.3 [place] [facility] [address] 45971- 5688 Jul, Opioid use disorder, severe, 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 [facility] [facility] [address] 37497- 2586 Jul, [place] [facility] [address] 45463- 9494 Jun, [place] [facility] [address] 67320- 4599 Jun, [facility] [facility] [address] 16374- 0906 Jun, Opioid use disorder, moderate, dependence F11.20 and Opioid use disorder, severe, 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 [facility] [id number] [place] [address] 43414- 9511 Jun, [facility] [id number] [place] [address] 39942- 0395 Jun, Long-term use of high-risk medication Z79.899 [facility] [id number] [place] [address] 96873- 8125 Jun, CHI I (cervical intraepithelial neoplasia I) N87.0 [facility] [facility] [address] 81903- 6794 May, Opioid use disorder, severe, 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 [facility] [id number] [place] [address] 89658- 1228 May, Chronic kidney disease, stage 3 N18.3 [facility] [id number] [place] [address] 30534- 6546 14 May, 2017 Chronic kidney disease, stage 3 N18.3 [facility] [address] [place] [address] 05 May, 2017 Opioid use disorder, severe, in sustained remission F11.21 [facility] [id number] [place] [address] 88345- 8386 Apr, LGSIL on Pap smear of cervix R87.612 [facility] [address] [place] [address] Apr, [facility] [id number] [place] [address] 43371- 6753 Apr, Opioid use disorder, severe, 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 [facility] [id number] [place] [address] 67832- 5942 Apr, Opioid use disorder, severe, 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 [facility] [id number] [place] [address] 05807- 5644 Apr, Opioid use disorder, severe, 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 [facility] [id number] [place] [address] 97168- 1419 Apr, Opioid use disorder, severe, 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 [facility] [id number] [place] [address] 87943- 6667 14 Apr, 2017 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 [facility] [id number] [place] [address] 16082- 2753 Apr, Opioid use disorder, severe, 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 [facility] [address] [place] [address] Apr, Opioid use disorder, severe, in sustained remission F11.21 [facility] [id number] [place] [address] 13573- 5602 09 Apr, 2017 Opioid use disorder, severe, 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 [facility] [address], [place] [address] 1552 Apr, Mild episode of recurrent major depressive disorder F33.0 and Right acute serous otitis media, recurrence not specified H65.01 [facility] [id number] [place] [address] 90548- 8124 Mar, [facility] [id number] [place] [address] 77810- 0468 Mar, Opioid use disorder, severe, 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 [facility] [id number] [place] [address] 90961- 6046 Mar, [facility] [address] [place] [address] Mar, Opioid use disorder, severe, in sustained remission F11.21 [facility] [address] [place] [address] Mar, Opioid use disorder, severe, in sustained remission F11.21 [facility] [id number] [place] [address] 14671- 4612 Mar, Opioid use disorder, severe, 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 [facility] [id number] [place] [address] 54590- 6108 Jan, Opioid use disorder, severe, 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 [facility] [address] [place] [address] Jan, Opioid use disorder, severe, in sustained remission F11.21 [facility] [address] [place] [address] Jan, Opioid use disorder, severe, in sustained remission F11.21 [facility] [id number] [place] [address] 88461- 8048 Jan, Opioid use disorder, severe, 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 [facility] [address] [place] [address] Jan, Opioid use disorder, severe, in sustained remission F11.21 [facility] [id number], [place] [address] 7288 December, Opioid use disorder, severe, in early remission F11.21 [facility] [address] [place] [address] December, Opioid use disorder, severe, in sustained remission F11.21 [place] [id number] [place] [address] 53745- 0745 December, Routine gynecological examination Z01.419 and Chronic kidney disease, stage 3 N18.3 [place] [id number] [place] [address] 85078- 7883 December, Chronic kidney disease, stage 3 N18.3 ; 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 ; Gastroparesis K31.84 ; Essential hypertension I10 and Irritable bowel syndrome with constipation K58.[address] [address] December, Opioid use disorder, severe, in sustained remission F11.21 [place] [id number] [place] [address] 49213- 5855 December, Opioid use disorder, severe, 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 [facility] [address] [place] [address] December, Opioid use disorder, severe, in sustained remission F11.21 [place] [id number] [place] [address] 41232- 6777 December, Encounter for therapeutic drug level monitoring Z51.81 [facility] [address] [place] [address] December, Opioid use disorder, severe, in sustained remission F11.21 [facility] [address] [place] [address] Dec, Opioid use disorder, severe, in sustained remission F11.21 [place] [id number] [place] [address] 82260- 7608 Dec, Opioid use disorder, severe, 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 [place] [id number] [place] [address] 24570- 5228 Dec, [facility] [address] [place] [address] Dec, Opioid use disorder, severe, in sustained remission F11.21 [facility] [id number] [place] [address] 37335- 8418 Dec, Opioid use disorder, severe, 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 [facility] [address] [place] [address] 06 Dec, 2016 Opioid use disorder, severe, in sustained remission F11.21 [facility] [id number] [place] [address] 23265- 0924 Dec, 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 [place] [address] 02348- 0459 Dec, Opioid use disorder, severe, in sustained remission F11.21 ; Encounter for therapeutic drug level monitoring Z51.81 and Other intermodal dispatcher ( 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 Z79.899 [facility] [address] [place] [address] 31 Oct, 2016 Opioid use disorder, severe, in sustained remission F11.21 [facility] [id number] [place] [address] 74047- 4382 23 Oct, 2016 Opioid use disorder, severe, 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 [facility] [id number] [place] [address] 52612- 0019 15 Oct, 2016 [facility] [address] [place] [address] 15 Oct, 2016 Opioid use disorder, severe, in sustained remission F11.21 [facility] [address] [place] [address] 95111- 4538 15 Oct, 2016 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 [facility] [id number] [place] [address] 23324- 5030 14 Oct, 2016 Routine gynecological examination Z01.419 [place] [id number] [place] [address] 82357- 1781 Oct, Opioid use disorder, severe, in early remission F11.21 [facility] [address], [place] [address] 2512 Oct, Opioid use disorder, severe, in early remission F11.21 [facility] [address] [place] [address] 41586- 4733 Oct, Opioid use disorder, severe, in early remission F11.21 [facility] [address] [place] [address] Oct, Opioid use disorder, severe, in sustained remission F11.21 [facility] [id number] [place] [address] 95532- 7630 Oct, Opioid use disorder, severe, in early remission F11.21 [facility] [id number] [place] [address] 53304- 3486 Oct, Opioid use disorder, severe, in early remission F11.21 [facility] [address] [place] [address] Oct, Opioid use disorder, severe, in sustained remission F11.21 [facility] [id number] [place] [address] 63293- 3011 Oct, Opioid use disorder, severe, in sustained remission F11.21 ; Encounter for therapeutic drug level monitoring Z51.81 and Other intermodal dispatcher ( 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 Z79.899 [facility] [id number] [place] [address] 46331- 4515 16 Oct, 2016 [facility] [address] [place] [address] 14 Oct, 2016 Opioid use disorder, severe, 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 [facility] [address] [place] [address] 10 Oct, 2016 Opioid use disorder, severe, in early remission F11.21 [facility] [id number] [place] [address] 40766- 9050 09 Oct, 2016 Opioid use disorder, severe, 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 [facility] [address], [place] [address]- 4938 08 Oct, 2016 [facility] [id number] [place] [address] 34288- 0146 Oct, [facility] [id number] [place] [address] 32647- 3305 Oct, [facility] [address] [place] [address] Oct, Opioid use disorder, severe, in early remission F11.21 [facility] [id number] [place] [address] 71087- 0156 Sep, Opioid use disorder, severe, in early remission F11.21 [facility] [address] [place] [address] Sep, Opioid use disorder, severe, in early remission F11.21 [facility] [id number] [place] [address] 04152- 1844 Sep, Opioid use disorder, severe, 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 ; Other mcc (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 Z79.899 and Encounter for therapeutic drug level monitoring Z51.81 [facility] [id number] [place] [address] 34092- 2827 Sep, [facility] [address] [place] [address] 45286- 9608 Sep, [facility] [id number] [place] [address] 11293- 0922 Sep, Opioid use disorder, severe, 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 ; 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 ; Chronic kidney disease, stage 3 N18.3 ; Essential hypertension I10 and Irritable bowel syndrome with constipation K58.1 [facility] [address] [place] [address] Sep, Opioid use disorder, severe, in early remission F11.21 [facility] [address] [place] [address] Sep, Opioid use disorder, severe, in early remission F11.21 [facility] [id number] [place] [address] 33459- 0986 Sep, Opioid use disorder, moderate, dependence F11.20 [facility] [id number] [place] [address] 45061- 3202 Sep, Opioid use disorder, moderate, dependence F11.20 [facility] [address] [place] [address] Sep, Opioid use disorder, severe, in early remission F11.[address] 05605- 7636 Sep, Opioid use disorder, severe, 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 [facility] [address] [place] [address] Aug, Opioid use disorder, severe, in early remission F11.[address] 46613- 6846 Aug, Opioid use disorder, moderate, dependence F11.20 [facility] [address] [place] [address] 90934 -0608 Aug, Bug bite without infection, initial encounter W57.XXXA [place] [id number] [place] [address] 38333- 5984 Aug, Opioid use disorder, moderate, dependence F11.20 [facility] [address] [place] [address] Aug, [place] [id number] [place] [address] 787095- 8126 Aug, Opioid use disorder, severe, 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 ; Other mcc (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 Z79.899 ; Encounter for therapeutic drug level monitoring Z51.81 and 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 [facility] [address] [place] [address] Aug, [facility] [address] [place] [address] 85486- 5100 Aug, Opioid use disorder, moderate, dependence F11.20 ; Other intermodal dispatcher (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 Z79.899 and Encounter for therapeutic drug level monitoring Z51.81 [facility] [address] 9[address]- 2742 Aug, [facility] [address] 04714- 7511 Aug, Non-intractable vomiting with nausea, unspecified vomiting type R11.2 [facility] [address] 831926- 2862 Aug, Opioid use disorder, moderate, dependence F11.20 and Non- intractable vomiting with nausea, unspecified vomiting type R11.2 [place] [address] 45355- 5655 Aug, [facility] [address] 06201- 1588 Aug, Opioid use disorder, moderate, dependence F11.20 [facility] [id number] [place] [address] 88761- 3183 Aug, [facility] [address] 79764- 1779 Jul, 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 and Opioid use disorder, moderate, dependence F11.20 [facility] [address] [place] [address] Jul, [facility] [id number] [place] [address] 69043- 0949 Jul, [facility] [id number] [place] [address] 55773- 0884 Jul, [facility] [address] 37264- 1106 Jul, Addiction to drug F19.20 and Chronic kidney disease, stage 3 N18.3 [facility] [address] [place] [address] 17 Jul, 2016 Counseling on substance use and abuse Z71.89 [facility] [id number] [place] [address] 65068- 8916 Jul, Chronic kidney disease, stage 3 N18.3 [facility] [id number] [place] [address] 25987- 0953 Jul, 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 ; Diarrhea, unspecified type R19.7 and Essential hypertension I10 [place] [id number] [place] [address] 87130- 5666 Jul, [facility] [id number] [place] [address] 71594- 4233 Jun, [facility] [id number] [place] [address] 31642- 3481 Jun, [facility] [id number] [place] [address] 81286- 6309 Apr, 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 [facility] [id number] [place] [address] 33039- 9731 Apr, Sore throat and laryngitis J06.0 and Non-intractable vomiting with nausea, unspecified vomiting type R11.2 [facility] [id number] [place] [address] 70269- 2662 Apr, [facility] [id number] [place] [address] 84128- 7641 Mar, [facility] [id number] [place] [address] 09386- 1212 Jan, [facility] [id number] [place] [address] 06761- 6760 Jan, [facility] [id number] [place] [address] 37401- 5978 Jan, [facility] [id number] [place] [address] 27028- 3018 December, 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 ; Gastroparesis K31.84 ; Mixed hyperlipidemia E78.2 ; Chronic kidney disease, stage 3 N18.3 ; Dysthymia F34.1 and Acute bilateral low back pain without sciatica M54.5 [facility] [id number] [place] [address] 88800- 2421 December, [facility] [address] 90968- 1065 December, [facility] [address] 71784- 4375 Aug, Depression F32.9 and Gastroparesis K31.84 [place] [address] 72598- 6380 Aug, Gastroparesis K31.84 [facility] [address] 82761- 7736 Jul, Recurrent UTI N39.0 ; Chronic kidney disease, stage 3 N18.3 and 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 [facility] [address] 02757- 1743 Jul, [facility] [address] [id number] Jul, Dental examination Z01.20 and Dental caries K02.9 [facility] [address] [place] [address] Jul, [facility] [address] [address] Jul, Dysuria R30.0 ; Urinary tract infection N39.0 and Nausea R11.0 [facility] [address] [address] Jun, Dysuria R30.0 [facility] [address] [address] Jun, Dysuria R30.0 [place] [id number] [place] [address] Jun, Dysuria R30.0 [place] [id number] [place] [id number] Jun, [place] [address] [place] [id number] [place] [address] Jun, Acute cystitis with hematuria N30.01 [place] [address] [place] [id number] [place] [address] May, [place] [id number] [place] [phone] Apr, Diabetes mellitus without mention of complication, type I [ juvenile type], not stated as uncontrolled 250.01 ; Gastroparesis due to DM 250.60 ; Contraception management V25.9 and Renal insufficiency 593.9 [place] [id number] [place] [address]29- 4508 Apr, [address] [id number] [place] [address] 14522- 6783 Apr, [place] [id number] [place] [address] 55498- 3036 Mar, [place] [id number] [place] [address] 02462- 9507 Mar, Hyperlipidemia 272.4 and Hypertensive heart and chronic kidney disease, benign, without heart failure and with chronic kidney disease stage I through stage IV, or unspecified 404.10 [place] [id number] [place] [address] 00936- 1614 Mar, Hyperlipidemia 272.4 ; Hyponatremia 276.1 ; 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 ; Hypertensive heart and chronic kidney disease, benign, without heart failure and with chronic kidney disease stage I through stage IV, or unspecified 404.10 ; Proteinuria 791.0 and Chronic kidney disease (CKD), stage III (moderate) 585.3 [address] [address] [address] Mar, [facility] [address], [place] [address] Mar, Elevated blood sugar level 790.29 [facility] [address], [place] [address] 83[address] Mar, Low grade squamous intraepithelial lesion (LGSIL) on cervical Pap smear 795.03 [facility] [id number] [place] [address] 08348- 7080 Mar, Amenorrhea 626.0 [facility] [id number] [place] [address] 97274- 1752 Jan, Amenorrhea 626.0 ; Routine gynecological examination V72.31 and Screen for STD (sexually transmitted disease) V74.5 [place] [address], [place] [address] 6208 Jan, Amenorrhea 626.0 [facility] [address], [place] [address] 8375 08 Jan, 2015 Routine gynecological examination V72.31 ; Screen for STD ( sexually transmitted disease) V74.5 ; Pap test, as part of routine gynecological examination V76.2 ; Breast cancer screening V76.10 and Amenorrhea 626.0 [facility] [address], [place] [address]288 December, [facility] [address], [place] [address] 2578 14 Dec, 2014 [facility] [address] [address] [address] Dec, [facility] [address], [place] [address] 5676 30 Oct, 2014 [facility] [id number] 9859 16 Oct, 2014 [facility] [address], [place] [address] 0641 Oct, [facility] [place] [facility] [address] [id number] [place] [address]- 4571 Oct, [facility] [place] [facility] [address] [id number] [place] [address]- 7488 Oct, [facility] [place] [facility] [address] [id number] [place] [address]- 2209 Oct, [facility] [place] [facility] [address] [id number] [place] [address]- 5623 Oct, [facility] [place] [facility] [address] [id number] [place] [address]- 2291 Oct, [facility] [place] [facility] [address] [id number] [place] [address]- 3503 Oct, [facility] [place] [facility] [address] [id number] [place] [address]- 4422 Oct, [facility] [place] [facility] [address] [id number] [place] [address]- 0087 Oct, [facility] [place] [facility] [address] [id number] [place] [address]- 7652 Sep, [facility] [place] [facility] [address] [facility] [id number] [place] [address]- 8623 Sep, [facility] [place] [facility] [address] [id number] [place] [address]- 3353 Sep, [facility] [place] [facility] [address] [id number] [address]- 1428 Sep, [facility] [place] [facility] [address] [id number] [place] [address]- 1312 Sep, [facility] [place] [facility] [address] [id number] [place] [address]- 1777 Sep, [facility] [place] [facility] [address] [id number] [address] 8288 Sep, [facility] [place] [facility] [address] [id number] [place] [address]- 0663 Sep, [facility] [place] [facility] [address] [id number] [place] [address]- 6372 Sep, [facility] [place] [facility] [address] [id number] [place] [address]- 4362 Sep, [facility] [place] [facility] [address] [id number] [place] [address]- 9182 Sep, [facility] [place] [facility] [address] [id number] [place] [address]- 2986 Sep, [facility] [place] [facility] [address] [id number] [place] [address]- 8041 Sep, [facility] [place] [facility] [address] [id number] [place] [address]- 7527 Sep, [facility] [place] [facility] [address] [id number] [place] [address]- 3196 Sep, [facility] [place] [facility] [address] [id number] [place] [address]- 6557 Sep, [facility] [place] [facility] [address] [id number] [place] [address]- 2779 Sep, [facility] [place] [facility] [address] [id number] [place] [address]- 7786 Sep, [facility] [place] [facility] [address] [id number] [place] [address]- 3245 Sep, [facility] [place] [facility] [address] [id number] [place] [address]- 0461 Sep, [facility] [place] [facility] [address] [id number] [place] [address]- 6786 Aug, [facility] [place] [facility] [address] [id number] [place] [address]- 6208 Aug, [facility] [place] [facility] [address] [id number] [place] [address]- 8877 Aug, [facility] [place] [facility] [address] [id number] [place] [address]- 9605 Aug, [facility] [place] [facility] [address] [id number] [place] [address]- 9630 Aug, [facility] [place] [facility] [address] [id number] [place] 2670 Aug, [facility] [place] [facility] [address] [id number] [place] [address]409 Aug, [facility] [place] [facility] [address] [id number] [place] [address]- 8016 Aug, [facility] [place] [facility] [address] [id number] [place] [address]- 6455 Aug, [facility] [place] [facility] [address] [id number] [place] [address]- 4770 Aug, [facility] [place] [facility] [address] [id number] [place] [address]- 0150 Aug, [facility] [place] [facility] [address] [id number] [place] [address]- 5880 Aug, [facility] [place] [facility] [address] [id number] [place] [address]- 0304 Jul, [facility] [place] [facility] [address] [id number] [place] [address]- 0430 Jul, [facility] [place] [facility] [address] [id number] [place] [address]- 5682 Jul, [facility] [place] [facility] [address] [id number] [place] [address]- 5867 Jul, [facility] [place] [facility] [address] [id number] [place] [address]- 7207 Jul, [facility] [place] [facility] [address] [id number] [place] [address]- 3297 Jul, [facility] [place] [facility] [address] [id number] [place] [address]- 0932 07 Jul, 2014 [facility] [place] [facility] [address] [id number] [place] [address]- 5728 Jul, [facility] [place] [facility] [address] [id number] [place] 1068 Jul, [facility] [place] [facility] [address] [id number] [place] [address]- 3094 Jul, [facility] [place] [facility] [address] [id number] [place] [address]- 8984 Jun, [facility] [place] [facility] [address] [id number] [place] [address]- 2851 Jun, [facility] [place] [facility] [address] [id number] [place] [address]- 4379 Jun, [facility] [place] [facility] [address] [id number] [place] [address]- 6203 Jun, [facility] [place] [facility] [address] [id number] [place] [address]- 6250 30 Jun, 2014 [facility] [place] [facility] [address] [id number] [place] [address]- 6626 30 Jun, 2014 [facility] [place] [facility] [address] [id number] [place] [address]- 9166 15 Jun, 2014 [facility] [place] [facility] [address] [id number] [place] [address]- 2793 15 Jun, 2014 [facility] [place] [facility] [address] [id number] [place] [address]- 5822 22 May, 2014 [facility] [place] [facility] [address] [id number] [place] [address]- 4509 22 May, 2014 [facility] [place] [facility] [address] [id number] [place] [address]- 5260 18 May, 2014 [facility] [place] [facility] [address] [id number] [place] [address]- 1351 May, [facility] [place] [facility] [address] [id number] [place] [address]- 1945 May, [facility] [place] [facility] [address] [id number] [place] [address]- 5792 May, [facility] [place] [facility] [address] [id number] [place] [address]- 2747 May, [facility] [place] [facility] [address] [id number] [place] [address]- 8851 May, [facility] [place] [facility] [address] [id number] [place] [address]- 0955 Apr, [facility] [place] [facility] [address] [id number] [place] [address]- 4165 Apr, [facility] [place] [facility] [address] [id number] [place] [address]- 8294 Apr, [facility] [place] [facility] [address] [id number] [place] [address]- 9965 Apr, [facility] [place] [facility] [address] [id number] [place] [address]- 6601 Mar, [facility] [place] [facility] [address] [id number] [place] [address]- 0045 Mar, [facility] [place] [facility] [address] [id number] [place] [address]- 6173 Mar, [facility] [place] [facility] [address] [id number] [place] [address]- 3800 Mar, [facility] [place] [facility] [address] [id number] [place] [address]- 1846 Mar, [facility] [place] [facility] [address] [id number] [place] [address]- 9723 Mar, [facility] [place] [facility] [address] [id number] [place] [address]- 2120 Jan, [facility] [place] [facility] [address] [id number], [place] [address]- 8258 Jan, [facility] [place] [facility] [address] [id number] [place] [address]- 4443 Jan, [facility] [place] [facility] [address] [id number] [place] [address]- 9176 Jan, [facility] [place] [facility] [address] [id number] [place] [address]- 8861 Jan, [facility] [place] [facility] [address] [id number] [place] [address]- 1861 Jan, [facility] [place] [facility] [address] [id number] [place] [address]- 8871 Jan, [facility] [place] [facility] [address] [id number] [place] [address]- 1936 Jan, [facility] [place] [facility] [address] [id number] [place] [address]- 5259 Jan, [facility] [place] [facility] [address] [id number] [place] [address]- 4864 Jan, [facility] [place] [facility] [address] [id number] [place] [address]- 6593 Jan, [facility] [place] [facility] [address] [id number] [place] [address]- 3451 Jan, [facility] [place] [facility] [address] [id number] [place] [address]- 1247 December, [facility] [place] [facility] [address] [id number], [place] [address]- 5247 December, [facility] [place] [facility] [address] [id number] [place] [address]- 0633 December, [facility] [place] [facility] [address] [id number] [place] [address]- 0187 December, [facility] [place] [facility] [address] [id number] [place] [address]- 4745 Dec, [facility] [place] [facility] [address] [id number] [place] [address]- 9451 Dec, [facility] [place] [facility] [address] [id number] [place] [address]- 1544 Dec, [facility] [place] [facility] [address] [id number] [place] [address]- 9522 Dec, [facility] [place] [facility] [address] [id number] [place] [address]- 9767 Dec, [facility] [place] [facility] [address] [id number] [place] [address]- 9697 Dec, [facility] [place] [facility] [address] [id number] [place] [address]- 3030 Dec, [facility] [place] [facility] [address] [id number] [place] [address]- 4273 Dec, [facility] [place] [facility] [address] [id number] [place] [address]- 5046 Dec, [facility] [place] [facility] [address] [id number] [place] [address]- 6031 Dec, [facility] [place] [facility] [address] [id number] [place] [address]- 7526 Dec, [facility] [place] [facility] [address] [id number] [place] [address]- 5272 Dec, [facility] [place] [facility] [address] [id number] [place] [address]- 2727 Dec, [facility] [place] [facility] [address] [id number] [place] [address]- 0582 Dec, [facility] [place] [facility] [address] [id number] [place] [address]- 1723 Oct, [facility] [place] [facility] [address] [id number] [place] [address]- 0408 Oct, [facility] [place] [facility] [address] [id number] [place] [address]- 4161 Oct, [facility] [address] [id number] [place] [address]- 6124 29 Oct, 2013 [facility] [place] [facility] [address] [id number] [place] [address]- 9794 Oct, [facility] [address] [facility] [id number] [place] [address]- 2632 Oct, [facility] [place] [facility] [address] [id number] [place] [id number] Oct, [facility] [address] [id number] [place] [address]- 9456 Oct, [facility] [place] [facility] [address] [id number] [place] [address]- 2393 Oct, [facility] [address] [id number] [place] [address]- 4303 Oct, [facility] [place] [facility] [address] [id number] [place] [address]- 3052 Sep, [facility] [place] [facility] [address] [id number] [place] [address]- 4374 Sep, [facility] [place] [facility] [address] [id number] [place] [address]- 0709 Sep, [facility] [place] [facility] [address] [id number] [place] [address]- 6556 Sep, [facility] [place] [facility] [address] [id number], [place] [address]- 3135 Sep, [facility] [place] [facility] [address] [id number] [place] [address]- 3761 Sep, [facility] [place] [facility] [address] [id number] [place] [address]- 0821 Aug, [facility] [place] [facility] [address] [id number] [place] [address]- 8437 Aug, [facility] [place] [facility] [address] [facility] [id number], [place] [address]- 8541 Jul, [facility] [id number], [place] [address]- 8707 Jul, [facility] [id number], [place] [address]- 7667 Jul, [facility] [id number], [place] [address]- 0727 Jul, [facility] [address] [facility] [id number], [place] [address]- 0335 Jul, IMMUNIZATIONS No Known Immunizations SOCIAL HISTORY Never Assessed REASON FOR VISIT Diabetes follow up-[place], would like her kidneys checked, left thumb pain , woke up months ago this way and is sore/pops, unprotected intercourse, states she has been spotting and would like HCG, last lmp was month ago, does not recall date PLAN OF CARE Activity Details Follow Up 3 Months Reason:DM VITAL SIGNS Height 66 in 2017-12-11 Weight 205.4 lbs 2017-12-11 Temperature 98.9 degrees Fahrenheit 2017-12-11 Heart Rate 96 bpm 2017-12-11 Respiratory Rate 20 2017-12-11 BMI 33.15 kg/m2 2017-12-11 Blood pressure systolic 148 mmHg 2017-12-11 Blood pressure diastolic 94 mmHg 2017-12-11 MEDICATIONS Medication Instructions Dosage Frequency Start Date End Date Duration Status Wellbutrin SR 150 MG Orally Once a day 1 tablet 24h Jul, 30 day (s) Active Vitamin B12 Active Fish Oil 1000 MG Orally Once a day 2 capsule 24h Active Glucagon Emergency 1 MG as directed Apr, Active Enalapril Maleate 10 mg Orally Once a day 1 tablet 24h Active Potassium 99 MG Orally Once a day 1 tablet 24h Active Dicyclomine HCl 10 MG TAKE ONE CAPSULE BY MOUTH TWICE DAILY NEEDED Active Zofran ODT 4 MG Orally 3 times a day, prn take 1 tablets by Oral route every 8 hours PRN Nausea or Vomiting Sep, Active Vitamin D 2000 UNIT Orally Once a day 1 tablet 24h Active Suboxone 8-2 MG Sublingual Once a day 2.5 film under the tongue and allow to dissolve 24h Aug, 28 days Active Tylenol 8 Hour Active Lovastatin 40 mg Orally Once a day 1 tablet with a meal 24h Mar, Active Humalog 100 UNIT/ML Subcutaneous pump as per pump-must have appt for refills inject Units by Subcutaneous route every hour per insulin pump Active RESULTS No Results PROCEDURES Procedure Date Ordered Result Body Site GLYCATED HEMOGLOBIN TEST December 11, 2017 URINE TEST December 11, 2017 VENIPUNCT, ROUTINE* December 11, 2017 No Charge December 11, 2017 CHORIONIC GONADOTROPIN TEST December 11, 2017 COMPREHEN METABOLIC PANEL December 11, 2017 INSTRUCTIONS MEDICATIONS ADMINISTERED No Known Medications MEDICAL [...]
--- OUTSIDE RECORDS SUMMARY | 2018-08-30 20:40 | XMS REPORT ---
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 Active 33444527 Problem Chronic kidney disease, stage 3 N18.3 Active 110067820 Problem CHI I (cervical intraepithelial neoplasia I) N87.0 Active 398417323 Problem Mild episode of recurrent major depressive disorder F33.0 Active 747930604 Problem Addiction to drug F19.20 Active 684217056 Problem Essential hypertension I10 Active 64097283 Problem Opioid use disorder, severe, in sustained remission F11.21 Active 09694852 Problem Irritable bowel syndrome with constipation K58.1 Active [id number] ALLERGIES No Information ENCOUNTERS Encounter Location Date Diagnosis [facility] [id number] [place] [address] 85178- 1005 Mar, [facility] [id number] [place] [address] 86868- 3076 Mar, [facility] [id number] [place] [address] 45623- 4306 Mar, Chronic kidney disease, stage 3 N18.3 ; 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 ; Mixed hyperlipidemia E78.2 and Opioid use disorder, severe, in sustained remission F11.21 [facility] [address] [place] [address] 07438- 2389 Mar, Mixed hyperlipidemia E78.2 [facility] [address] [place] [address] 31312- 0575 Mar, Opioid use disorder, severe, in early remission F11.21 [facility] [id number] [place] [address] 68399- 4740 Mar, [facility] [address] [place] [address] Mar, Opioid use disorder, severe, in sustained remission F11.21 [facility] [id number] [place] [address] 44790- 6071 Jan, Opioid use disorder, severe, in early remission F11.21 [facility] [id number] [place] [address] 41322- 1430 December, Opioid use disorder, severe, in early remission F11.21 [facility] [address] [place] [address] December, Opioid use disorder, severe, in sustained remission F11.21 [facility] [id number] [place] [address] 07119- 9492 December, Opioid use disorder, severe, in sustained remission F11.21 and 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 [facility] [address] [place] [address] 31092- 2558 December, Opioid use disorder, severe, in early remission F11.21 [facility] [address] [place] [address] Dec, Opioid use disorder, severe, in sustained remission F11.21 [facility] [id number] [place] [address] 61384- 3540 Dec, 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 ; Unprotected sexual intercourse Z72.51 ; Pain of left thumb M79.645 ; Mixed hyperlipidemia E78.2 ; Gastroparesis K31.84 ; Essential hypertension I10 and Irritable bowel syndrome with constipation K58.1 [facility] [id number] [place] [address] 01025- 5507 Dec, Opioid use disorder, severe, in early remission F11.21 [facility] [id number] [place] [address] 04547- 5286 Oct, [facility] [id number] [place] [address] 03667 2546 Oct, Opioid use disorder, severe, in early remission F11.21 [facility] [id number] [place] [address] 95409 2546 Oct, [facility] [id number] [place] [address] 69279- 9806 Oct, Opioid use disorder, severe, in early remission F11.21 [facility] [id number] [place] [address] 58157- 0886 Oct, [facility] [id number] [place] [address] 74999- 5556 Oct, [facility] [address] [place] [address] Oct, Opioid use disorder, severe, in sustained remission F11.21 [facility] [id number] [place] [address] 11870- 9012 Sep, [facility] [id number] [place] [address] 57769- 1769 Sep, [facility] [id number] [place] [address] 58183- 2544 Sep, Opioid use disorder, severe, in 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 [facility] [id number] [place] [address] 946347- 7236 Aug, Opioid use disorder, severe, 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 [facility] [id number] [place] [address] 804241- 9916 Jul, [facility] [id number] [place] [address] 73163- 6086 21 Nov, 2017 Chronic kidney disease, stage 3 N18.3 ; Dysthymia F34.1 and Opioid use disorder, severe, in sustained remission F11.21 [facility] [address] [place] [address] Jul, Opioid use disorder, severe, in sustained remission F11.21 [facility] [id number] [place] [address] 78636- 9186 Jul, Long-term use of high-risk medication Z79.899 and Chronic kidney disease, stage 3 N18.3 [facility] [id number] [place] [address] 61892- 1062 Jul, Opioid use disorder, severe, 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 [place] [facility] [id number] [place] [address] 74319- 7070 Jul, [place] [id number] [place] [address] 48180- 1412 Jun, [facility] [id number] [place] [address] 81887- 6111 Jun, [facility] [id number] [place] [address] 02593- 0641 Jun, Opioid use disorder, moderate, dependence F11.20 and Opioid use disorder, severe, 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 [place] [id number] [place] [address] 07663- 7158 Jun, [facility] [id number] [place] [address] 89417- 9461 Jun, Long-term use of high-risk medication Z79.899 [facility] [id number] [place] [address] 30026- 4017 Jun, CHI I (cervical intraepithelial neoplasia I) N87.0 [place] [id number] [place] [address] 14849- 5240 May, Opioid use disorder, severe, 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 [place] [address] [place] [address]- 4465 18 May, 2017 Chronic kidney disease, stage 3 N18.3 [facility] [id number] [place] [address] 95958- 7381 14 May, 2017 Chronic kidney disease, stage 3 N18.3 [facility] [address] [place] [address] 05 May, 2017 Opioid use disorder, severe, in sustained remission F11.21 [facility] [id number] [place] [address] 15891- 4539 Apr, LGSIL on Pap smear of cervix R87.612 [facility] [address] [place] [address] Apr, [facility] [id number] [place] [address] 70429- 1191 Apr, Opioid use disorder, severe, in early remission F11.21 [facility] [id number] [place] [address] 01935- 0918 Apr, Opioid use disorder, severe, in early remission F11.21 [facility] [id number] [place] [address] 11932- 0843 Apr, Opioid use disorder, severe, in early remission F11.21 [facility] [id number] [place] [address] 72309- 3788 Apr, Opioid use disorder, severe, in early remission F11.21 [facility] [id number] [place] [address] 73830- 9660 14 Apr, 2017 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 [facility] [id number] [place] [address] 47534- 0576 10 Apr, 2017 Opioid use disorder, severe, 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 [facility] [address] [place] [address] Apr, Opioid use disorder, severe, in sustained remission F11.21 [facility] [id number] [place] [address] 53639- 1384 Apr, Opioid use disorder, severe, in early remission F11.21 [facility] [id number] [place] [address] 61464- 9816 Apr, Mild episode of recurrent major depressive disorder F33.0 and Right acute serous otitis media, recurrence not specified H65.01 [facility] [id number] [place] [address] 91430- 7975 Mar, [facility] [id number] [place] [address] 16468- 0307 Mar, Opioid use disorder, severe, in early remission F11.21 [facility] [id number] [place] [address] 29919- 7123 Mar, [facility] [address] [place] [address] Mar, Opioid use disorder, severe, in sustained remission F11.21 [facility] [address] [place] [address] Mar, Opioid use disorder, severe, in sustained remission F11.21 [facility] [id number] [place] [address] 02556- 1177 Mar, Opioid use disorder, severe, in early remission F11.21 [facility] [id number] [place] [address] 71802- 4443 Jan, Opioid use disorder, severe, in early remission F11.21 [facility] [address] [place] [address] Jan, Opioid use disorder, severe, in sustained remission F11.21 [facility] [address] [place] [address] Jan, Opioid use disorder, severe, in sustained remission F11.21 [facility] [id number] [place] [address] 74964- 5731 Jan, Opioid use disorder, severe, in early remission F11.21 [facility] [address] [place] [address] Jan, Opioid use disorder, severe, in sustained remission F11.21 [facility] [id number] [place] [address] 11334- 0649 December, Opioid use disorder, severe, in early remission F11.21 [facility] [address] [place] [address] December, Opioid use disorder, severe, in sustained remission F11.21 [facility] [address] [place] [id number] [place] [address] 57918- 9404 December, Routine gynecological examination Z01.419 and Chronic kidney disease, stage 3 N18.3 [id number] [place] [address] 86262- 8179 December, Chronic kidney disease, stage 3 N18.3 ; 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 ; Gastroparesis K31.84 ; Essential hypertension I10 and Irritable bowel syndrome with constipation K58.1 [facility] [address] [place] [address] December, Opioid use disorder, severe, in sustained remission F11.21 [facility] [id number] [place] [address] 75543- 5273 December, Opioid use disorder, severe, in early remission F11.21 [facility] [address] [place] [address] December, Opioid use disorder, severe, in sustained remission F11.21 [id number] [place] [address] 52296- 3573 December, Encounter for therapeutic drug level monitoring Z51.81 [facility] [address] [place] [address] December, Opioid use disorder, severe, in sustained remission F11.21 [facility] [address] [place] [address] Dec, Opioid use disorder, severe, in sustained remission F11.21 [facility] [address] [place] [id number] [place] [address] 96765- 5815 Dec, Opioid use disorder, severe, in early remission F11.21 [address] [address]- 9485 Dec, [facility] [address] [place] [address] Dec, Opioid use disorder, severe, in sustained remission F11.21 [facility] [id number] [place] [address] 20785- 3573 Dec, Opioid use disorder, severe, in early remission F11.21 [facility] [address] [place] [address] 06 Dec, 2016 Opioid use disorder, severe, in sustained remission F11.21 [facility] [id number] [place] [address] 43641- 7721 Dec, 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 [facility] [id number] [place] [address] 86723- 2355 Dec, Opioid use disorder, severe, in sustained remission F11.21 ; Encounter for therapeutic drug level monitoring Z51.81 and Other terminal make up operator ( 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 Z79.899 [facility] [address] [place] [address] 31 Oct, 2016 Opioid use disorder, severe, in sustained remission F11.21 [facility] [id number] [place] [address] 78802- 2860 23 Oct, 2016 Opioid use disorder, severe, in early remission F11.21 [facility] [id number] [place] [address] 48449- 3295 15 Oct, 2016 [facility] [address] [place] [address] Oct, Opioid use disorder, severe, in sustained remission F11.21 [facility] [id number] [place] [address] 78350- 6783 15 Oct, 2016 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 [facility] [id number] [place] [address] 71603- 2800 14 Oct, 2016 Routine gynecological examination Z01.419 [place] [address] [place] [address]- 1689 07 Oct, 2016 Opioid use disorder, severe, in early remission F11.21 [facility] [address] 17018- 3927 Oct, Opioid use disorder, severe, in early remission F11.21 [facility] [id number] [place] [address] 67386- 8430 Oct, Opioid use disorder, severe, in early remission F11.21 [facility] [address] [place] [address] Oct, Opioid use disorder, severe, in sustained remission F11.21 [place] [address] 13941- 4646 Oct, Opioid use disorder, severe, in early remission F11.21 [place] [address] 89243- 6474 Oct, Opioid use disorder, severe, in early remission F11.21 [facility] [address] [place] [address] Oct, Opioid use disorder, severe, in sustained remission F11.21 [place] [id number] [place] [address] 70290- 5870 20 Oct, 2016 Opioid use disorder, severe, in sustained remission F11.21 ; Encounter for therapeutic drug level monitoring Z51.81 and Other mcc ( 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 Z79.899 [place] [id number] [place] [address] 79143- 8277 16 Oct, 2016 [facility] [address] [place] [address] 14 Oct, 2016 Opioid use disorder, severe, in early remission F11.21 [facility] [address] [place] [address] 10 Oct, 2016 Opioid use disorder, severe, in early remission F11.21 [place] [id number] [place] [address] 62238- 4037 09 Oct, 2016 Opioid use disorder, severe, in early remission F11.21 [facility] [address] [address]- 5528 Oct, [facility] [id number] [place] [address] 80626- 9118 Oct, [facility] [id number] [place] [address] 92836- 5190 Oct, [facility] [address] [place] [address] Oct, Opioid use disorder, severe, in early remission F11.21 [facility] [id number] [place] [address] 40167- 3798 Sep, Opioid use disorder, severe, in early remission F11.21 [facility] [address] [place] [address] Sep, Opioid use disorder, severe, in early remission F11.21 [facility] [id number] [place] [address] 74872- 4322 Sep, Opioid use disorder, severe, in early remission F11.21 ; 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 and Encounter for therapeutic drug level monitoring Z51.81 [facility] [address] [place] [id number] [place] [address] 90272- 9224 Sep, [facility] [address] [place] [address] 66089- 5767 Sep, [facility] [id number] [place] [address] 07414- 1244 Sep, Opioid use disorder, severe, in early remission F11.21 ; 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 ; Chronic kidney disease, stage 3 N18.3 ; Essential hypertension I10 and Irritable bowel syndrome with constipation K58.1 [facility] [address] [place] [address] Sep, Opioid use disorder, severe, in early remission F11.21 [facility] [address] [place] [address] Sep, Opioid use disorder, severe, in early remission F11.21 [facility] [id number] [place] [address] 95897- 8402 Sep, Opioid use disorder, moderate, dependence F11.20 [facility] [id number] [place] [address] 80650- 2832 Sep, Opioid use disorder, moderate, dependence F11.20 [facility] [address] [place] [address] Sep, Opioid use disorder, severe, in early remission F11.21 [place] [id number] [place] [address] 33607- 7740 Sep, Opioid use disorder, severe, in early remission F11.21 [facility] [address] [place] [address] Aug, Opioid use disorder, severe, in early remission F11.21 [place] [id number] [place] [address] 90431- 7288 Aug, Opioid use disorder, moderate, dependence F11.20 [facility] [id number] [place] [address] 39200 -6721 Aug, Bug bite without infection, initial encounter W57.XXXA [place] [id number] [place] [address] 66576- 7724 Aug, Opioid use disorder, moderate, dependence F11.20 [facility] [address] [place] [address] Aug, [facility] [address] [place] [id number] [place] [address] 52595- 5360 Aug, Opioid use disorder, severe, in early remission F11.21 ; 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 ; Encounter for therapeutic drug level monitoring Z51.81 and 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 [facility] [address] [place] [address] 15 Aug, 2016 [facility] [address] [place] [address] 35195- 7080 15 Aug, 2016 Opioid use disorder, moderate, dependence F11.20 ; 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 and Encounter for therapeutic drug level monitoring Z51.81 [facility] [id number] [place] [address] 57277- 9643 Aug, [facility] [id number] [place] [address] 55040- 5481 Aug, Non-intractable vomiting with nausea, unspecified vomiting type R11.2 [facility] [address] 004336- 0332 Aug, Opioid use disorder, moderate, dependence F11.20 and Non- intractable vomiting with nausea, unspecified vomiting type R11.2 [facility] [id number] [place] [address] 84629- 7312 Aug, [facility] [address] 24644- 9605 Aug, Opioid use disorder, moderate, dependence F11.20 [facility] [id number] [place] [address] 23549- 3421 Aug, [facility] [id number] [place] [address] 34454- 5312 Jul, 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 and Opioid use disorder, moderate, dependence F11.20 [facility] [address] [place] [address] Jul, [facility] [id number] [place] [address] 04669- 4344 Jul, [facility] [address] 27718- 3502 Jul, [facility] [id number] [place] [address] 86824- 0469 Jul, Addiction to drug F19.20 and Chronic kidney disease, stage 3 N18.3 [facility] [address] [place] [address] Jul, Counseling on substance use and abuse Z71.89 [facility] [id number] [place] [address] 42647- 8685 Jul, Chronic kidney disease, stage 3 N18.3 [facility] [id number] [place] [address] Jul, 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 ; Diarrhea, unspecified type R19.7 and Essential hypertension I10 [facility] [id number] [place] [phone] Jul, [facility] [address] [address] Jun, [facility] [id number] [place] [address] [phone]- 7373 Jun, [facility] ([facility] [address] [address] Apr, 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 [facility] [id number] [place] [address] 78[address] 2559 Apr, Sore throat and laryngitis J06.0 and Non-intractable vomiting with nausea, unspecified vomiting type R11.2 [facility] [id number] [place] [address] [phone]- 0427 Apr, [facility] [id number] [place] [address] 220[address] 8825 Mar, [facility] [id number] [place] [address] 269[address]- 7036 Jan, [facility] ([facility] [id number] [place] [address]1998- 0131 Jan, [facility] [id number] [place] [address]- 4404 Jan, [facility] [address] [address]- 9752 December, 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 ; Gastroparesis K31.84 ; Mixed hyperlipidemia E78.2 ; Chronic kidney disease, stage 3 N18.3 ; Dysthymia F34.1 and Acute bilateral low back pain without sciatica M54.5 [facility] [address] [address]- 1841 December, [facility] [address] 71649- 9454 December, [place] [address] [address]- [address] Aug, Depression F32.9 and Gastroparesis K31.84 [place] [address] 23628- 9488 Aug, Gastroparesis K31.84 [place] [address] 70280- 0291 Jul, Recurrent UTI N39.0 ; Chronic kidney disease, stage 3 N18.3 and 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 [place] [address] 55893- 2479 Jul, [facility] [address] [id number] Jul, Dental examination Z01.20 and Dental caries K02.9 [place] [address] 07490- 6641 Jul, [facility] [address] [address] Jul, Dysuria R30.0 ; Urinary tract infection N39.0 and Nausea R11.0 [place] [address] 04993- 9324 Jun, Dysuria R30.0 [place] [address] 35805- 0477 Jun, Dysuria R30.0 [place] [id number] [place] [address] 45801- 3555 Jun, Dysuria R30.0 [facility] [id number] [place] [address] 68855- 3009 Jun, [place] [id number] [place] [address] 19998- 4166 Jun, Acute cystitis with hematuria N30.01 [place] [id number] [place] [address] 11635- 3692 May, [place] [id number] [place] [address] 99911- 0238 Apr, Diabetes mellitus without mention of complication, type I [ juvenile type], not stated as uncontrolled 250.01 ; Gastroparesis due to DM 250.60 ; Contraception management V25.9 and Renal insufficiency 593.9 [place] [id number] [place] [address] 99761- 7976 Apr, [place] [id number] [place] [address] 12451- 9031 Apr, [place] [id number] [place] [address] 24498- 0029 Mar, [place] [id number] [place] [address] 05954- 4974 Mar, Hyperlipidemia 272.4 and Hypertensive heart and chronic kidney disease, benign, without heart failure and with chronic kidney disease stage I through stage IV, or unspecified 404.10 [place] [id number] [place] [address] 02544- 1221 Mar, Hyperlipidemia 272.4 ; Hyponatremia 276.1 ; 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 ; Hypertensive heart and chronic kidney disease, benign, without heart failure and with chronic kidney disease stage I through stage IV, or unspecified 404.10 ; Proteinuria 791.0 and Chronic kidney disease (CKD), stage III (moderate) 585.3 [place] [address] [address] 6[address] Mar, [facility] [id number] [address] 0808 Mar, Elevated blood sugar level 790.29 [place] [id number] [place] [address] 71721- 7869 Mar, Low grade squamous intraepithelial lesion (LGSIL) on cervical Pap smear 795.03 [place] [address] [address]- 5062 Mar, Amenorrhea 626.0 [place] [id number] [place] [address] 29572- 5940 15 Jan, 2015 Amenorrhea 626.0 ; Routine gynecological examination V72.31 and Screen for STD (sexually transmitted disease) V74.5 [place] [address] [address]- 7708 Jan, Amenorrhea 626.0 [place] [address] [address]- 7200 08 Jan, 2015 Routine gynecological examination V72.31 ; Screen for STD ( sexually transmitted disease) V74.5 ; Pap test, as part of routine gynecological examination V76.2 ; Breast cancer screening V76.10 and Amenorrhea 626.0 [place] [address] [address]- 2388 December, [place] [address] [address]- 4798 Dec, [place] [address] [address]- 3926 Dec, [facility] [address] 3667 30 Oct, 2014 [place] [address] [address]- 0617 Oct, [facility] [place] [facility] [address] [id number] [place] [address]- 6532 Oct, [facility] [place] [facility] [address] [id number] [place] [address]- 6775 Oct, [facility] [place] [facility] [address] [id number] [place] [address]- 9662 Oct, [facility] [place] [facility] [address] [id number] [place] [address]- 7481 Oct, [facility] [place] [facility] [address] [id number] [place] [address]- 7963 Oct, [facility] [place] [facility] [address] [id number] [place] [address]- 4623 Oct, [facility] [place] [facility] [address] [id number] [place] [address]- 8505 Oct, [facility] [place] [facility] [address] [id number] [place] [address]- 4967 Oct, [facility] [place] [facility] [address] [id number] [place] [address]- 5040 Oct, [facility] [place] [facility] [address] [id number] [place] [address]- 6749 Sep, [facility] [place] [facility] [address] [id number] [place] [address]- 4284 Sep, [facility] [place] [facility] [address] [id number], [place] [address]- 8397 Sep, [facility] [place] [facility] [address] [id number] [place] [address]- 0394 Sep, [facility] [place] [facility] [address] [id number] [place] [address]- 3022 Sep, [facility] [place] [facility] [address] [id number] [place] [address]- 8106 Sep, [facility] [place] [facility] [address] [id number] [place] [address]- 8219 15 Sep, 2014 [facility] [place] [facility] [address] [id number] [place] [address]- 4162 15 Sep, 2014 [facility] [place] [facility] [address] [id number] [place] [address]- 9796 Sep, [facility] [place] [facility] [address] [id number] [place] [address]- 8578 Sep, [facility] [place] [facility] [address] [id number] [place] [address]- 8863 Sep, [facility] [place] [facility] [address] [id number] [place] [address]- 8276 Sep, [facility] [place] [facility] [address] [id number] [place] [address]- 4900 Sep, [facility] [place] [facility] [address] [id number] [place] [address]- 0321 Sep, [facility] [place] [facility] [address] [id number] [place] [address]- 9763 Sep, [facility] [place] [facility] [address] [id number] [place] [address]- 0790 Sep, [facility] [place] [facility] [address] [id number] [place] [address]- 0640 Sep, [facility] [place] [facility] [address] [id number] [place] [address]- 8476 Sep, [facility] [place] [facility] [address] [id number] [place] [address]- 0999 Sep, [facility] [place] [facility] [address] [id number] [place] [address]- 4557 Sep, [facility] [place] [facility] [address] [id number] [place] [address]- 3409 Aug, [facility] [place] [facility] [address] [id number] [place] [address]- 2377 Aug, [facility] [place] [facility] [address] [id number] [place] [address]- 6041 Aug, [facility] [place] [facility] [address] [id number] [place] [address]- 7643 Aug, [facility] [place] [facility] [address] [id number] [place] [address]- 7736 Aug, [facility] [place] [facility] [address] [id number] [place] [address]- 1357 Aug, [facility] [place] [facility] [address] [id number] [place] [address]- 6715 Aug, [facility] [place] [facility] [address] [id number] [place] [address]- 9830 Aug, [facility] [place] [facility] [address] [id number] [place] [address]- 7038 Aug, [facility] [place] [facility] [address] [id number] [place] [address]- 6233 Aug, [facility] [place] [facility] [address] [id number] [place] [address]- 9869 Aug, [facility] [place] [facility] [address] [id number] [place] [address]- 7096 Aug, [facility] [place] [facility] [address] [id number] [place] [address]- 8900 Jul, [facility] [place] [facility] [address] [id number] [place] [address]- 9983 Jul, [facility] [place] [facility] [address] [id number] [place] [address]- 6579 Jul, [facility] [place] [facility] [address] [id number] [place] [address]- 4298 Jul, [facility] [place] [facility] [address] [id number] [place] [address]- 7258 Jul, [facility] [place] [facility] [address] [id number] [place] [address]- 8146 Jul, [facility] [place] [facility] [address] [id number] [place] 8155 Jul, [facility] [place] [facility] [address] [id number] [place] [address]- 6270 Jul, [facility] [place] [facility] [address] [id number] [place] [address]- 7763 Jul, [facility] [place] [facility] [address] [id number] [place] 9401 Jul, [facility] [place] [facility] [address] [id number] [place] [address]- 7768 Jun, [facility] [place] [facility] [address] [id number] [place] [address]- 1419 31 Jun, 2014 [facility] [place] [facility] [address] [id number] [place] [address]- 4215 30 Jun, 2014 [facility] [place] [facility] [address] [id number] [place] [address]- 6235 30 Jun, 2014 [facility] [place] [facility] [address] [id number] [place] [address]- 7856 30 Jun, 2014 [facility] [place] [facility] [address] [id number] [place] [address]- 7934 30 Jun, 2014 [facility] [place] [facility] [address] [id number], [place] [address]- 0502 15 Jun, 2014 [facility] [place] [facility] [address] [id number], [place] [address]- 1578 15 Jun, 2014 [facility] [place] [facility] [address] [id number] [place] [address]- 7191 22 May, 2014 [facility] [place] [facility] [address] [id number] [place] [address]- 7169 22 May, 2014 [facility] [place] [facility] [address] [id number] [place] [address]- 0434 18 May, 2014 [facility] [place] [facility] [address] [id number] [place] [address]- 3795 May, [facility] [place] [facility] [address] [id number] [place] [address]- 8562 May, [facility] [place] [facility] [address] [id number] [place] [address]- 5057 May, [facility] [place] [facility] [address] [id number] [place] [address]- 0523 May, [facility] [place] [facility] [address] [id number] [place] [address]- 7418 May, [facility] [place] [facility] [address] [id number] [place] [address]- 4669 Apr, [facility] [place] [facility] [address] [id number] [place] [address]- 4004 Apr, [facility] [place] [facility] [address] [id number] [place] [address]- 7247 Apr, [facility] [place] [facility] [address] [id number] [place] [address]- 7191 Apr, [facility] [place] [facility] [address] [id number] [place] [address]- 6118 Mar, [facility] [place] [facility] [address] [id number] [place] [address]- 4794 Mar, [facility] [place] [facility] [address] [id number] [place] [address]- 5484 Mar, [facility] [place] [facility] [address] [id number] [place] [address]- 4412 Mar, [facility] [place] [facility] [address] [id number] [place] [address]- 5444 Mar, [facility] [place] [facility] [address] [id number] [place] [address]- 6638 Mar, [facility] [place] [facility] [address] [id number] [place] [address]- 6855 Jan, [facility] [place] [facility] [address] [id number] [place] [address]- 2248 Jan, [facility] [place] [facility] [address] [id number] [place] [address]- 4811 Jan, [facility] [place] [facility] [address] [id number] [place] [address]- 7237 Jan, [facility] [place] [facility] [address] [id number] [place] [address]- 9288 Jan, [facility] [place] [facility] [address] [id number] [place] [address]- 4433 Jan, [facility] [place] [facility] [address] [id number] [place] [address]- 9294 Jan, [facility] [place] [facility] [address] [id number] [place] [address]- 6713 Jan, [facility] [place] [facility] [address] [id number] [place] [address]- 9853 Jan, [facility] [place] [facility] [address] [id number] [place] [address]- 4762 Jan, [facility] [place] [facility] [address] [id number] [place] [address]- 2183 Jan, [facility] [place] [facility] [address] [id number] [place] [address]- 2313 Jan, [facility] [place] [facility] [address] [id number], [place] [address]- 8624 December, [facility] [place] [facility] [address] [id number] [place] [address]- 9168 December, [facility] [place] [facility] [address] [id number] [place] [address]- 0984 December, [facility] [place] [facility] [address] [id number] [place] [address]- 5888 December, [facility] [place] [facility] [address] [id number] [place] [address]- 6919 Dec, [facility] [place] [facility] [address] [id number] [place] [address]- 8362 Dec, [facility] [place] [facility] [address] [id number] [place] [address]- 2704 Dec, [facility] [place] [facility] [address] [id number] [place] [address]- 1152 Dec, [facility] [place] [facility] [address] [id number] [place] [address]- 9843 Dec, [facility] [place] [facility] [address] [id number] [place] [address]- 1144 Dec, [facility] [place] [facility] [address] [id number] [place] [address]- 9825 Dec, [facility] [place] [facility] [address] [id number] [place] [address]- 7168 Dec, [facility] [place] [facility] [address] [id number] [place] [address]- 4256 Dec, [facility] [place] [facility] [address] [id number] [place] [address]- 9815 Dec, [facility] [place] [facility] [address] [id number] [place] [address]- 0370 Dec, [facility] [place] [facility] [address] [id number] [place] [address]- 0102 Dec, [facility] [place] [facility] [address] [id number] [place] [address]- 8744 Dec, [facility] [place] [facility] [address] [id number] [place] [address]- 3741 Dec, [facility] [place] [facility] [address] [id number] [place] [address]- 3533 Oct, [facility] [place] [facility] [address] [id number] [place] [address]- 6481 Oct, [facility] [place] [facility] [address] [id number] [place] [address]- 3703 29 Oct, 2013 [facility] [address] [id number] [place] [address]- 7742 29 Oct, 2013 [facility] [address] [id number] [place] [address]- 8820 28 Oct, 2013 [facility] [address] [id number] [place] [address]- 9599 28 Oct, 2013 [facility] [address] [id number] [place] [id number] Oct, [facility] [address] [id number] [place] [address]- 2083 Oct, [facility] [address] [id number] [place] [address]- 0398 Oct, [facility] [address] [id number] [place] [address]- 4952 Oct, [facility] [address] [id number] [place] [address]- 6663 Sep, [facility] [address] [id number] [place] [address]- 3519 Sep[facility] [address] [id number] [place] [address]- 3604 Sep, [facility] [address] [id number] [place] [address]- 9064 Sep, [facility] [address] [id number] [place] [address]- 0237 Sep, [facility] [place] [facility] [address] [id number] [place] [address]- 2444 Sep, [facility] [address] [id number] [place] [address]- 5686 18 Aug, 2013 [facility] [address] [id number] [place] [address]- 2274 Aug, [facility] [address] [facility] [id number], [place] [address]- 3698 Jul, [facility] [address] [facility] [id number], [place] [address]- 5196 Jul, [facility] [address] [facility] [id number], [place] [address]- 3628 Jul, [facility] [address] [facility] [id number], [place] [address]- 3886 Jul, [facility] [address] [facility] [id number], [place] [address]- 1420 Jul, IMMUNIZATIONS No Known Immunizations SOCIAL HISTORY Never Assessed REASON FOR VISIT Tx plan update - Last Tx Plan was completed on 10/03/17. Have not met with client since that date - update was due on 01/03/18, so updated Plan today with few changes PLAN OF CARE Activity Details Follow Up 4 Weeks Reason: VITAL SIGNS MEDICATIONS Unknown Medications RESULTS No Results PROCEDURES Procedure Date Ordered Result Body Site Psychotherapy, patient &/family, 30 minutes, established patient December 25, 2017 INSTRUCTIONS MEDICATIONS ADMINISTERED No Known Medications [...]
--- OUTSIDE RECORDS SUMMARY | 2018-08-30 20:41 | XMS REPORT ---
Author Author NOEMY MORGAN [facility] Address [address] 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 Active 51911976 Problem Chronic kidney disease, stage 3 N18.3 Active 032935738 Problem CHI I (cervical intraepithelial neoplasia I) N87.0 Active 570613222 Problem Mild episode of recurrent major depressive disorder F33.0 Active 798330533 Problem Addiction to drug F19.20 Active 774250337 Problem Essential hypertension I10 Active 49432752 Problem Opioid use disorder, severe, in sustained remission F11.21 Active 78590707 Problem Irritable bowel syndrome with constipation K58.1 Active 605467994 ALLERGIES No Information ENCOUNTERS Encounter Location Date Diagnosis [facility] [address] [place] [address] Apr, [facility] [id number] [place] [address] 70209- 3473 Mar, [facility] [address] [place] [address] Mar, Opioid use disorder, severe, in sustained remission F11.21 [facility] [id number] [address] Jan, Opioid use disorder, severe, in early remission F11.21 [facility] [id number] [address] December, Opioid use disorder, severe, in early remission F11.21 [facility] [address] [place] [address] December, Opioid use disorder, severe, in sustained remission F11.21 [facility] [id number] [place] [address] 49312- 8566 December, Opioid use disorder, severe, in sustained remission F11.21 and 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 [facility] [address] [address] December, Opioid use disorder, severe, in early remission F11.21 [facility] [address] [place] [address] Dec, Opioid use disorder, severe, in sustained remission F11.21 [facility] [id number] [place] [address] 03101- 4808 Dec, 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 ; Unprotected sexual intercourse Z72.51 ; Pain of left thumb M79.645 ; Mixed hyperlipidemia E78.2 ; Gastroparesis K31.84 ; Essential hypertension I10 and Irritable bowel syndrome with constipation K58.1 [place] [address] [address] Dec, Opioid use disorder, severe, in early remission F11.21 [place] [id number] [place] [address] 24038- 2740 Oct, [facility] [address] 36443- 3668 Oct, Opioid use disorder, severe, in early remission F11.21 [facility] [id number] [place] [address] 51377- 5034 Oct, [facility] [address] 17921- 2234 05 Oct, 2017 Opioid use disorder, severe, in early remission F11.21 [facility] [address] 86202- 5010 Oct, [facility] [id number] [place] [address] 36512- 4017 Oct, [facility] [address] [place] [address] Oct, Opioid use disorder, severe, in sustained remission F11.21 [facility] [id number] [place] [address] 01944- 6423 Sep, [facility] [id number] [place] [address] 50649- 5836 Sep, [facility] [id number] [place] [address] 93181- 6875 Sep, Opioid use disorder, severe, in early remission F11.21 [facility] [id number] [place] [address] 14736- 4400 Aug, Opioid use disorder, severe, in early remission F11.21 [facility] [id number] [place] [address] 44350- 9397 Jul, [facility] [id number] [place] [address] 73658- 9266 Jul, Chronic kidney disease, stage 3 N18.3 ; Dysthymia F34.1 and Opioid use disorder, severe, in sustained remission F11.21 [facility] [address] [place] [address] Jul, Opioid use disorder, severe, in sustained remission F11.21 [facility] [id number] [place] [address] 91400- 8797 Jul, Long-term use of high-risk medication Z79.899 and Chronic kidney disease, stage 3 N18.3 [facility] [id number] [place] [address] 66657- 3007 Jul, Opioid use disorder, severe, in early remission F11.21 [facility] [id number] [place] [address] 54867- 3819 Jul, [facility] [id number] [place] [address] 53001- 6091 Jun, [facility] [id number] [place] [address] 17742- 5716 Jun, [facility] [id number] [place] [address] 04947- 2792 Jun, Opioid use disorder, moderate, dependence F11.20 and Opioid use disorder, severe, in early remission F11.21 [facility] [id number] [place] [address] 38797- 5239 Jun, [place] [address] 92713- 4686 Jun, Long-term use of high-risk medication Z79.899 [place] [id number] [place] [address] 11217- 1298 Jun, CHI I (cervical intraepithelial neoplasia I) N87.0 [place] [id number] [place] [address] 06896- 3726 May, Opioid use disorder, severe, in early remission F11.21 [place] [id number] [place] [address] 79580- 0685 18 May, 2017 Chronic kidney disease, stage 3 N18.3 [place] [id number] [place] [address] 95496- 6481 14 May, 2017 Chronic kidney disease, stage 3 N18.3 [facility] [address] [place] [address] 05 May, 2017 Opioid use disorder, severe, in sustained remission F11.21 [place] [id number] [place] [address] 31652- 2576 Apr, LGSIL on Pap smear of cervix R87.612 [facility] [address] [place] [address] Apr, [facility] [id number] [place] [address] 60059- 3696 Apr, Opioid use disorder, severe, in early remission F11.21 [facility] [id number] [place] [address] 66980- 7706 Apr, Opioid use disorder, severe, in early remission F11.21 [facility] [id number] [place] [address] 93601- 6537 Apr, Opioid use disorder, severe, in early remission F11.21 [facility] [id number] [place] [address] 09708- 4314 18 Apr, 2017 Opioid use disorder, severe, in early remission F11.21 [facility] [id number] [place] [address] 25119- 5981 14 Apr, 2017 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 [facility] [id number] [place] [address] 84130- 1635 Apr, Opioid use disorder, severe, in early remission F11.21 [facility] [address] [place] [address] Apr, Opioid use disorder, severe, in sustained remission F11.21 [facility] [id number] [place] [address] 44949- 0722 Apr, Opioid use disorder, severe, in early remission F11.21 [facility] [id number] [place] [address] 25586- 9692 Apr, Mild episode of recurrent major depressive disorder F33.0 and Right acute serous otitis media, recurrence not specified H65.01 [facility] [id number] [place] [address] 38755- 2336 Mar, [facility] [id number] [place] [address] 13203- 6460 Mar, Opioid use disorder, severe, in early remission F11.21 [facility] [id number] [place] [address] 98755- 8825 Mar, [facility] [address] [place] [address] Mar, Opioid use disorder, severe, in sustained remission F11.21 [facility] [address] [place] [address] Mar, Opioid use disorder, severe, in sustained remission F11.21 [facility] [address] [address] 9200 Mar, Opioid use disorder, severe, in early remission F11.21 [facility] [id number] [place] [address] 01903- 9519 Jan, Opioid use disorder, severe, in early remission F11.21 [facility] [address] [place] [address] Jan, Opioid use disorder, severe, in sustained remission F11.21 [facility] [place] [address] Jan, Opioid use disorder, severe, in sustained remission F11.21 [place] [id number] [place] [address] 90828- 0617 Jan, Opioid use disorder, severe, in early remission F11.21 [facility] [address] [place] [address] Jan, Opioid use disorder, severe, in sustained remission F11.21 [facility] [address] [address] 8053 December, Opioid use disorder, severe, in early remission F11.21 [facility] [address] [place] [address] December, Opioid use disorder, severe, in sustained remission F11.21 [address] [place] [address] 58011- 3662 December, Routine gynecological examination Z01.419 and Chronic kidney disease, stage 3 N18.3 [facility] [address] [address] 8802 December, Chronic kidney disease, stage 3 N18.3 ; 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 ; Gastroparesis K31.84 ; Essential hypertension I10 and Irritable bowel syndrome with constipation K58.1 [facility] [address] [place] [address] December, Opioid use disorder, severe, in sustained remission F11.21 [facility] [id number] [place] [address] 40895- 9051 December, Opioid use disorder, severe, in early remission F11.21 [facility] [address] [place] [address] December, Opioid use disorder, severe, in sustained remission F11.21 [facility] [id number] [place] [address] 58152- 0049 December, Encounter for therapeutic drug level monitoring Z51.81 [facility] [address] [place] [address] December, Opioid use disorder, severe, in sustained remission F11.21 [facility] [address] [place] [address] Dec, Opioid use disorder, severe, in sustained remission F11.21 [facility] [id number] [place] [address] 90897- 7163 Dec, Opioid use disorder, severe, in early remission F11.21 [facility] [id number] [place] [address] 19604- 9350 Dec, [facility] [address] [place] [address] Dec, Opioid use disorder, severe, in sustained remission F11.21 [facility] [id number] [place] [address] 47059- 1382 Dec, Opioid use disorder, severe, in early remission F11.21 [facility] [address] [place] [address] Dec, Opioid use disorder, severe, in sustained remission F11.21 [facility] [id number] [place] [address] 42357- 1780 Dec, 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 [facility] [id number] [place] [address] 84660- 4745 03 Dec, 2016 Opioid use disorder, severe, in sustained remission F11.21 ; Encounter for therapeutic drug level monitoring Z51.81 and Other mcc ( 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 Z79.899 [facility] [address] [place] [address] 31 Oct, 2016 Opioid use disorder, severe, in sustained remission F11.21 [facility] [id number] [place] [address] 62299- 9986 23 Oct, 2016 Opioid use disorder, severe, in early remission F11.21 [facility] [id number] [place] [address] 52755- 8713 15 Oct, 2016 [facility] [address] [place] [address] 15 Oct, 2016 Opioid use disorder, severe, in sustained remission F11.21 [facility] [id number] [place] [address] 02950- 3742 15 Oct, 2016 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 [place] [id number] [place] [address] 07228- 7669 14 Oct, 2016 Routine gynecological examination Z01.419 [place] [id number] [place] [address] 31812- 7037 07 Oct, 2016 Opioid use disorder, severe, in early remission F11.21 [facility] [id number] [place] [address] 71751- 2901 06 Oct, 2016 Opioid use disorder, severe, in early remission F11.21 [facility] [id number] [place] [address] 86550- 5192 06 Oct, 2016 Opioid use disorder, severe, in early remission F11.21 [facility] [address] [place] [address] 02 Oct, 2016 Opioid use disorder, severe, in sustained remission F11.21 [facility] [id number] [place] [address] 50353- 5508 Oct, Opioid use disorder, severe, in early remission F11.21 [facility] [id number] [place] [address] 67517- 5596 23 Oct, 2016 Opioid use disorder, severe, in early remission F11.21 [facility] [address] [place] [address] 22 Oct, 2016 Opioid use disorder, severe, in sustained remission F11.21 [facility] [id number] [place] [address] 56883- 6008 Oct, Opioid use disorder, severe, in sustained remission F11.21 ; Encounter for therapeutic drug level monitoring Z51.81 and Other mcc ( 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 Z79.899 [facility] [address] 73769- 7886 16 Oct, 2016 [facility] [address] [place] [address] 14 Oct, 2016 Opioid use disorder, severe, in early remission F11.21 [facility] [address] [place] [address] 10 Oct, 2016 Opioid use disorder, severe, in early remission F11.21 [facility] [id number] [place] [address] 18995- 6971 09 Oct, 2016 Opioid use disorder, severe, in early remission F11.21 [facility] [id number] [place] [address] 14300- 6816 08 Oct, 2016 [facility] [id number] [place] [address] 25443- 9427 07 Oct, 2016 [facility] [id number] [place] [address] 99384- 0789 Oct, [facility] [address] [place] [address] Oct, Opioid use disorder, severe, in early remission F11.21 [facility] [id number] [place] [address] 67885- 2759 Sep, Opioid use disorder, severe, in early remission F11.21 [facility] [address] [place] [address] Sep, Opioid use disorder, severe, in early remission F11.21 [facility] [id number] [place] [address] 86574- 9378 Sep, Opioid use disorder, severe, in early remission F11.21 ; Other intermediate accountant (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 Z79.899 and Encounter for therapeutic drug level monitoring Z51.81 [facility] [address] [place] [address] 83082- 2584 Sep, [facility] [address] 77068- 9445 Sep, [facility] [address] [place] [address] 89493- 9970 Sep, Opioid use disorder, severe, in early remission F11.21 ; 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 ; Chronic kidney disease, stage 3 N18.3 ; Essential hypertension I10 and Irritable bowel syndrome with constipation K58.1 [facility] [address] [place] [address] 17 Sep, 2016 Opioid use disorder, severe, in early remission F11.21 [facility] [address] [place] [address] 12 Sep, 2016 Opioid use disorder, severe, in early remission F11.21 [facility] [address] [place] [address] 95362- 4089 10 Sep, 2016 Opioid use disorder, moderate, dependence F11.20 [facility] [id number] [place] [address] 64541- 1528 05 Sep, 2016 Opioid use disorder, moderate, dependence F11.20 [facility] [address] [place] [address] 05 Sep, 2016 Opioid use disorder, severe, in early remission F11.21 [facility] [address] [place] [address] 28612- 8179 Sep, Opioid use disorder, severe, in early remission F11.21 [facility] [address] [place] [address] Aug, Opioid use disorder, severe, in early remission F11.21 [facility] [id number] [place] [address] 07823- 3768 Aug, Opioid use disorder, moderate, dependence F11.20 [facility] [id number] [place] [address] 43265 -0815 Aug, Bug bite without infection, initial encounter W57.XXXA [facility] [id number] [place] [address] 32109- 7197 Aug, Opioid use disorder, moderate, dependence F11.20 [facility] [address] [place] [address] Aug, [facility] [id number] [place] [address] 81491- 3114 Aug, Opioid use disorder, severe, in early remission F11.21 ; Other mcc (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 Z79.899 ; Encounter for therapeutic drug level monitoring Z51.81 and 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 [facility] [address] [place] [address] Aug, [facility] [id number] [place] [address] 58970- 3037 Aug, Opioid use disorder, moderate, dependence F11.20 ; Other mcc (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 Z79.899 and Encounter for therapeutic drug level monitoring Z51.81 [facility] [address] [place] [address] 50748- 4064 Aug, [facility] [id number] [place] [address] 70164- 0933 Aug, Non-intractable vomiting with nausea, unspecified vomiting type R11.2 [facility] [id number] [place] [address] 77333- 4380 Aug, Opioid use disorder, moderate, dependence F11.20 and Non- intractable vomiting with nausea, unspecified vomiting type R11.2 [facility] [id number] [place] [address] 34276- 7409 08 Aug, 2016 [facility] [id number] [place] [address] 33692- 1610 Aug, Opioid use disorder, moderate, dependence F11.20 [facility] [id number] [place] [address] 20758- 6359 Aug, [facility] [address] 62279- 7734 Jul, 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 and Opioid use disorder, moderate, dependence F11.20 [facility] [address] [place] [address] Jul, [facility] [address] 29459- 1090 Jul, [facility] [address] 03587- 4823 Jul, [facility] [address] 37034- 2797 Jul, Addiction to drug F19.20 and Chronic kidney disease, stage 3 N18.3 [facility] [address] [place] [address] Jul, Counseling on substance use and abuse Z71.89 [facility] [address] 71332- 7475 Jul, Chronic kidney disease, stage 3 N18.3 [facility] [id number] [place] [address] 82672- 1903 Jul, 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 ; Diarrhea, unspecified type R19.7 and Essential hypertension I10 [facility] [address] 54949- 8985 Jul, [facility] [id number] [place] [address] 25952- 9591 Jun, [facility] [address] [place] [address]- 2845 Jun, [facility] [id number] [place] [address] 85067- 2198 Apr, 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 [facility] [id number] [place] [address] 61265- 8379 Apr, Sore throat and laryngitis J06.0 and Non-intractable vomiting with nausea, unspecified vomiting type R11.2 [facility] [id number] [place] [address] 01850- 9215 Apr, [facility] [id number] [place] [address] 38339- 2826 Mar, [facility] [id number] [place] [address] 94800- 2094 Jan, [facility] [id number] [place] [address] 37827- 1050 Jan, [facility] [id number] [place] [address] [phone] Jan, [facility] [id number] [place] [address] [phone] December, 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 ; Gastroparesis K31.84 ; Mixed hyperlipidemia E78.2 ; Chronic kidney disease, stage 3 N18.3 ; Dysthymia F34.1 and Acute bilateral low back pain without sciatica M54.5 [facility] [id number] [place] [address] [phone] December, [facility] [id number] [place] [address] [phone] December, [facility] [id number] [place] [address] [phone] Aug, Depression F32.9 and Gastroparesis K31.84 [facility] [id number] [place] [address] [phone]- [phone] Aug, Gastroparesis K31.84 [facility] [id number] [place] [address] 19062- 6801 Jul, Recurrent UTI N39.0 ; Chronic kidney disease, stage 3 N18.3 and 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 [facility] [id number] [place] [address] 37801- 7944 Jul, [facility] [address] [id number] Jul, Dental examination Z01.20 and Dental caries K02.9 [address] [address] 28934- 7085 Jul, [facility] [address] [address] -[address]80 Jul, Dysuria R30.0 ; Urinary tract infection N39.0 and Nausea R11.0 [facility] [id number] [place] [address] 84994- 7274 Jun, Dysuria R30.0 [facility] [address] [address]84- 7545 Jun, Dysuria R30.0 [facility] [address] 22567- 6694 Jun, Dysuria R30.0 [facility] [address] 46534- 1096 Jun, [facility] [id number] [place] [address] 53951- 7007 Jun, Acute cystitis with hematuria N30.01 [facility] [id number] [place] [address] 62773- 7092 May, [facility] [id number] [place] [address] 90649- 4128 Apr, Diabetes mellitus without mention of complication, type I [ juvenile type], not stated as uncontrolled 250.01 ; Gastroparesis due to DM 250.60 ; Contraception management V25.9 and Renal insufficiency 593.9 [id number] [place] [address] 48303- 5074 Apr, [place] [id number] [place] [address] 82979- 7627 Apr, [address] [address]- 4529 Mar, [id number] [place] [address] 53525- 8677 Mar, Hyperlipidemia 272.4 and Hypertensive heart and chronic kidney disease, benign, without heart failure and with chronic kidney disease stage I through stage IV, or unspecified 404.10 [id number] [place] [address] 71119- 4013 Mar, Hyperlipidemia 272.4 ; Hyponatremia 276.1 ; 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 ; Hypertensive heart and chronic kidney disease, benign, without heart failure and with chronic kidney disease stage I through stage IV, or unspecified 404.10 ; Proteinuria 791.0 and Chronic kidney disease (CKD), stage III (moderate) 585.3 [id number] [place] [address] 04513- 0393 Mar, [id number] [place] [address] 80927- 5059 Mar, Elevated blood sugar level 790.29 [id number] [place] [address] 39154- 7525 Mar, Low grade squamous intraepithelial lesion (LGSIL) on cervical Pap smear 795.03 [id number] [place] [address] 25068- 9713 Mar, Amenorrhea 626.0 [id number] [place] [address] 25402- 5769 Jan, Amenorrhea 626.0 ; Routine gynecological examination V72.31 and Screen for STD (sexually transmitted disease) V74.5 [facility] [address] [facility] [id number] [address]648 11 Jan, 2015 Amenorrhea 626.0 [facility] [address] [facility] [id number], [place] [address] 4116 08 Jan, 2015 Routine gynecological examination V72.31 ; Screen for STD ( sexually transmitted disease) V74.5 ; Pap test, as part of routine gynecological examination V76.2 ; Breast cancer screening V76.10 and Amenorrhea 626.0 [facility] [address] [facility] [id number], [place] [address] 8345 December, [facility] [address], [place] [address]- 0893 Dec, [facility] [address] [address]- 1778 Dec, [facility] [address], [place] [address]- 9419 Oct, [facility] [address], [place] [address]- 2978 Oct, [facility] [address], [place] [address]- 3927 Oct, [facility] [address] [address]- 8267 Oct, [facility] [address], [place] [address]- 6693 Oct, [facility] [address] [address]- 0062 Oct, [facility] [id number] [address] 2546 Oct, [facility] [id number] [address]- 2546 Oct, [facility] [place] [facility] [address] [id number] [place] [address]- 1185 Oct, [facility] [place] [facility] [address] [id number] [place] [address]- 9498 Oct, [facility] [place] [facility] [address] [id number] [place] [address]- 6647 Oct, [facility] [place] [facility] [address] [id number] [place] [address]- 6219 Sep, [facility] [place] [facility] [address] [id number] [place] [address]- 4263 Sep, [facility] [place] [facility] [address] [id number] [place] [address]- 8825 Sep, [facility] [place] [facility] [address] [id number] [place] [address]- 0874 16 Sep, 2014 [facility] [place] [facility] [address] [id number] [place] [address]- 2014 Sep, [facility] [place] [facility] [address] [id number] [place] [address]- 4250 16 Sep, 2014 [facility] [place] [facility] [address] [id number] [place] [address]- 8358 Sep, [facility] [place] [facility] [address] [id number] [place] [address]- 3198 15 Sep, 2014 [facility] [place] [facility] [address] [id number] [place] [address]- 7561 Sep, [facility] [place] [facility] [address] [id number] [place] [address]- 0926 15 Sep, 2014 [facility] [place] [facility] [address] [id number] [place] [address]- 0270 Sep, [facility] [place] [facility] [address] [id number] [place] [address]- 0156 13 Sep, 2014 [facility] [place] [facility] [address] [id number] [place] [address]- 5637 Sep, [facility] [place] [facility] [address] [id number] [place] [address]- 8314 Sep, [facility] [place] [facility] [address] [id number] [place] [address]- 6155 Sep, [facility] [place] [facility] [address] [id number] [place] [address]- 8412 Sep, [facility] [place] [facility] [address] [id number] [place] [address]- 2770 Sep, [facility] [place] [facility] [address] [id number] [place] [address]- 6283 Sep, [facility] [place] [facility] [address] [id number] [place] [address]- 0351 Sep, [facility] [place] [facility] [address] [id number] [place] [address]- 3343 Sep, [facility] [place] [facility] [address] [id number] [place] [address]- 4374 Aug, [facility] [place] [facility] [address] [id number] [place] [address]- 8501 Aug, [facility] [place] [facility] [address] [id number] [place] [address]- 0017 Aug, [facility] [place] [facility] [address] [id number], [place] [address]- 9170 Aug, [facility] [place] [facility] [address] [id number], [place] [address]- 1241 Aug, [facility] [place] [facility] [address] [id number] [place] [address]- 5849 Aug, [facility] [place] [facility] [address] [id number] [place] [address]- 7614 Aug, [facility] [place] [facility] [address] [id number] [place] [address]- 3952 Aug, [facility] [place] [facility] [address] [id number] [place] [address]- 1976 Aug, [facility] [place] [facility] [address] [id number] [place] [address]- 8332 Aug, [facility] [place] [facility] [address] [id number] [place] [address]- 6401 Aug, [facility] [place] [facility] [address] [id number] [place] [address]223 Aug, [facility] [place] [facility] [address] [id number] [place] [address]- 6444 Jul, [facility] [place] [facility] [address] [id number] [place] [address]- 5030 Jul, [facility] [place] [facility] [address] [id number] [place] [address]- 0372 Jul, [facility] [place] [facility] [address] [id number] [place] [address]- 6218 Jul, [facility] [place] [facility] [address] [id number] [place] [address]- 3292 Jul, [facility] [place] [facility] [address] [id number] [place] [address]- 9842 Jul, [facility] [place] [facility] [address] [facility] [id number] [place] [address]- 5236 Jul, [facility] [place] [facility] [address] [id number] [place] [address]- 5705 Jul, [facility] [place] [facility] [address] [id number] [place] [address]- 1904 Jul, [facility] [place] [facility] [address] [id number] [place] [address]- 3376 Jul, [facility] [place] [facility] [address] [id number] [place] [address]- 9506 Jun, [facility] [place] [facility] [address] [id number] [place] [address]- 0427 Jun, [facility] [place] [facility] [address] [id number] [place] [address]- 6637 30 Jun, 2014 [facility] [place] [facility] [address] [id number] [place] [address]- 4061 30 Jun, 2014 [facility] [place] [facility] [address] [id number] [place] [address]- 6533 30 Jun, 2014 [facility] [place] [facility] [address] [id number] [place] [address]- 8467 30 Jun, 2014 [facility] [place] [facility] [address] [id number] [place] [address]- 1180 15 Jun, 2014 [facility] [place] [facility] [address] [id number] [place] [address]- 6115 15 Jun, 2014 [facility] [place] [facility] [address] [id number] [place] [address]- 6185 22 May, 2014 [facility] [place] [facility] [address] [id number] [place] [address]- 1445 22 May, 2013 [facility] [place] [facility] [address] [id number] [place] [address]- 2172 18 May, 2014 [facility] [place] [facility] [address] [id number] [place] [address]- 1087 18 May, 2013 [facility] [place] [facility] [address] [id number] [place] [address]- 5900 09 May, 2014 [facility] [place] [facility] [address] [id number], [place] [address]- 1332 08 May, 2013 [facility] [place] [facility] [address] [id number] [place] [address]- 9357 02 May, 2013 [facility] [place] [facility] [address] [id number] [place] [address]- 4497 02 May, 2013 [facility] [place] [facility] [address] [id number] [place] [address]- 2829 28 Apr, 2014 [facility] [place] [facility] [address] [id number], [place] [address]- 5637 Apr, [facility] [place] [facility] [address] [id number] [place] [address]- 8771 Apr, [facility] [place] [facility] [address] [id number] [place] [address]- 5153 Apr, [facility] [place] [facility] [address] [id number] [place] [address]- 2745 Mar, [facility] [place] [facility] [address] [id number] [place] [address]- 4491 Mar, [facility] [place] [facility] [address] [id number] [place] [address]- 2303 Mar, [facility] [place] [facility] [address] [id number] [place] [address]- 5376 Mar, [facility] [place] [facility] [address] [id number] [place] [address]- 6645 Mar, [facility] [place] [facility] [address] [id number] [place] [address]- 9768 Mar, [facility] [place] [facility] [address] [id number] [place] [address]- 7264 Jan, [facility] [place] [facility] [address] [id number] [place] [address]- 1697 Jan, [facility] [place] [facility] [address] [id number] [place] [address]- 2918 Jan, [facility] [place] [facility] [address] [id number] [place] [address]- 5673 Jan, [facility] [place] [facility] [address] [id number] [place] [address]- 2790 Jan, [facility] [place] [facility] [address] [id number] [place] [address]- 3807 Jan, [facility] [place] [facility] [address] [id number] [place] [address]- 5798 Jan, [facility] [place] [facility] [address] [id number] [place] [address]- 9598 Jan, [facility] [place] [facility] [address] [id number] [place] [address]- 4237 Jan, [facility] [place] [facility] [address] [id number] [place] [address]- 2734 Jan, [facility] [place] [facility] [address] [id number] [place] [address]- 9118 Jan, [facility] [place] [facility] [address] [id number] [place] [address]- 7146 Jan, [facility] [place] [facility] [address] [id number] [place] [address]- 0843 December, [facility] [place] [facility] [address] [id number] [place] [address]- 8593 December, [facility] [place] [facility] [address] [id number] [place] [address]- 0765 December, [facility] [place] [facility] [address] [id number] [place] [address]- 1869 December, [facility] [place] [facility] [address] [id number] [place] [address]- 2528 Dec, [facility] [place] [facility] [address] [id number] [place] [address]- 3132 Dec, [facility] [place] [facility] [address] [id number] [place] [address]- 9904 Dec, [facility] [place] [facility] [address] [id number] [place] [address]- 1548 Dec, [facility] [place] [facility] [address] [id number] [place] [address]- 4545 Dec, [facility] [place] [facility] [address] [id number] [place] [address]- 3398 Dec, [facility] [place] [facility] [address] [id number] [place] [address]- 2592 Dec, [facility] [place] [facility] [address] [id number] [place] [address]- 5656 Dec, [facility] [place] [facility] [address] [id number] [place] [address]- 6134 Dec, [facility] [place] [facility] [address] [id number] [place] [address]- 6803 Dec, [facility] [place] [facility] [address] [id number] [place] [address]- 5368 Dec, [facility] [place] [facility] [address] [id number] [place] [address]- 8769 Dec, [facility] [place] [facility] [address] [id number] [place] [address]- 3826 Dec, [facility] [place] [facility] [address] [id number] [place] [address]- 9471 Dec, [facility] [place] [facility] [address] [id number] [place] [address]- 7119 Oct, [facility] [place] [facility] [address] [id number] [place] [address]- 4654 Oct, [facility] [place] [facility] [address] [id number], [place] [address]- 7217 Oct, [facility] [place] [facility] [address] [id number], [place] [address]- 8922 Oct, [facility] [place] [facility] [address] [id number], [place] [address]- 7172 Oct, [facility] [place] [facility] [address] [id number] [place] [address]- 5763 Oct, [facility] [place] [facility] [address] [id number] [id number] Oct, [facility] [place] [facility] [address] [id number], [place] [address]- 7203 Oct, [facility] [place] [facility] [address] [id number], [place] [address]- 8387 Oct, [facility] [address] [id number], [place] [address]- 4140 Oct, [facility] [address] 3037 Sep, [facility] [address] 9206 Sep, [facility] [address], [place] [address]- 2659 Sep, [facility] [address], [place] [address]- 3321 Sep, [facility] [address], [place] [address]- 5892 Sep, [facility] [address], [place] [address]- 8403 Sep, [facility] [address], [place] [address]- 5485 Aug, [facility] [address], [place] [address]- 7085 Aug, [facility] [address], [place] [address]- 9172 Jul, [facility] [address], [place] [address]- 0854 Jul, [facility] [address] [id number], [place] [address]- 8277 Jul, [facility] [address] 0193 Jul, [facility] [address], [place] [address]- 8797 Jul, IMMUNIZATIONS No Known Immunizations SOCIAL HISTORY Never Assessed REASON FOR VISIT Suboxone RX (12/05-01/01) PLAN OF CARE VITAL SIGNS MEDICATIONS Medication [...]
--- OUTSIDE RECORDS SUMMARY | 2018-08-30 20:42 | XMS REPORT ---
Author Author CARLOTTA MIR [facility] Address [address] [place] [address] Care Team Providers Care Jet Man Name Role Phone AALIYAHGUZMANCARLOTTA Unavailable PROBLEMS Type Condition ICD9-CM Code [id number] Code Onset Dates Condition Status SNOMED Code Problem Essential hypertension I10 Active 86459386 Problem Addiction to drug F19.20 Active 779784233 Problem Diarrhea, unspecified type R19.7 Active 83565251 Problem CHI I (cervical intraepithelial neoplasia I) N87.0 Active 877839948 Problem Right acute serous otitis media, recurrence not specified H65.01 Active 018749698 Problem Irritable bowel syndrome with constipation K58.1 Active 930483720 Problem Encounter for therapeutic drug level monitoring Z51.81 Active 847226154 Problem Mild episode of recurrent major depressive disorder F33.0 Active 183425491 Problem Opioid use disorder, severe, in sustained remission F11.21 Active 37501951 Problem Long-term use of high-risk medication Z79.899 Active 275830476 Problem Recurrent UTI N39.0 Active 785202208 Problem Gastroparesis K31.84 Active 201034358 Problem Acute bilateral low back pain without sciatica M54.5 Active 455232768 Problem 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 Active 70885028 Problem Mixed hyperlipidemia E78.2 Active 667067654 Problem Chronic kidney disease, stage 3 N18.3 Active 930776855 Problem Dysthymia F34.1 Active 73051920 ALLERGIES No Information SOCIAL HISTORY Never Assessed PLAN OF CARE Activity Details Follow Up 1 Week Reason: VITAL SIGNS MEDICATIONS Unknown Medications RESULTS No Results PROCEDURES Procedure Date Ordered Result Body Site Psychotherapy, patient &/family, 30 minutes, established patient January 15, 2017 IMMUNIZATIONS No Known Immunizations MEDICAL (GENERAL) HISTORY Type Description Date Medical History Type 1 Diabetes mellitus Medical History hx of hypertension Medical History gastroparesis Medical History hx of renal insufficiency 09/2014 Medical History Unspecified renal failure Medical History Gastroparesis due to DM Surgical History oral surgery at age 16 Hospitalization History Gastroperisis 2012
--- OUTSIDE RECORDS SUMMARY | 2018-08-30 20:42 | XMS REPORT ---
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 Active 29053677 Problem Chronic kidney disease, stage 3 N18.3 Active 177374401 Problem CHI I (cervical intraepithelial neoplasia I) N87.0 Active 975451213 Problem Mild episode of recurrent major depressive disorder F33.0 Active 967873859 Problem Addiction to drug F19.20 Active 765879725 Problem Essential hypertension I10 Active 26015615 Problem Opioid use disorder, severe, in sustained remission F11.21 Active 90244416 Problem Irritable bowel syndrome with constipation K58.1 Active 786859621 ALLERGIES No Information ENCOUNTERS Encounter Location Date Diagnosis [facility] [address] [place] [address] Apr, [facility] [id number] [place] [address] 68363- 6174 Mar, [facility] [address] [place] [address] Mar, Opioid use disorder, severe, in sustained remission F11.21 [facility] [id number] [place] [address] 72651- 4553 Jan, Opioid use disorder, severe, in early remission F11.21 [facility] [id number] [place] [address] 32520- 9728 December, Opioid use disorder, severe, in early remission F11.21 [facility] [address] [place] [address] December, Opioid use disorder, severe, in sustained remission F11.21 [facility] [id number] [place] [address] 65103- 9115 December, Opioid use disorder, severe, in sustained remission F11.21 and 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 [facility] [id number] [place] [address] 00220- 3454 December, Opioid use disorder, severe, in early remission F11.21 [facility] [address] [place] [address] Dec, Opioid use disorder, severe, in sustained remission F11.21 [place] [facility] [id number] [place] [address] 30123- 6030 Dec, 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 ; Unprotected sexual intercourse Z72.51 ; Pain of left thumb M79.645 ; Mixed hyperlipidemia E78.2 ; Gastroparesis K31.84 ; Essential hypertension I10 and Irritable bowel syndrome with constipation K58.1 [facility] [id number] [place] [address] 75952- 6315 Dec, Opioid use disorder, severe, in early remission F11.21 [facility] [id number] [place] [address] 51607- 4942 Oct, [facility] [id number] [place] [address] 32531- 2059 Oct, Opioid use disorder, severe, in early remission F11.21 [facility] [id number] [place] [address] 17518- 4113 Oct, [facility] [id number] [place] [address] 44282- 8586 Oct, Opioid use disorder, severe, in early remission F11.21 [facility] [id number] [place] [address] 57059- 2813 Oct, [facility] [id number] [place] [address] 27498- 7216 Oct, [facility] [address] [place] [address] Oct, Opioid use disorder, severe, in sustained remission F11.21 [facility] [id number] [place] [address] 84159- 7915 Sep, [facility] [id number] [place] [address] 07299- 7897 Sep, [facility] [id number] [place] [address] 41827- 1195 Sep, Opioid use disorder, severe, in early remission F11.21 [facility] [id number] [place] [address] 81546- 1300 Aug, Opioid use disorder, severe, in early remission F11.21 [facility] [id number] [place] [address] 30548- 7990 Jul, [facility] [id number] [place] [address] 79646- 2633 Jul, Chronic kidney disease, stage 3 N18.3 ; Dysthymia F34.1 and Opioid use disorder, severe, in sustained remission F11.21 [facility] [address] [place] [address] Jul, Opioid use disorder, severe, in sustained remission F11.21 [facility] [id number] [place] [address] 12438- 4846 Jul, Long-term use of high-risk medication Z79.899 and Chronic kidney disease, stage 3 N18.3 [facility] [id number] [address] 9763 Jul, Opioid use disorder, severe, in early remission F11.21 [facility] [id number] [place] [address] 84829- 6375 Jul, [facility] [id number] [place] [address] 04941- 6098 Jun, [facility] [id number] [place] [address] 01452- 9466 Jun, [facility] [id number] [place] [address] 37927- 7160 Jun, Opioid use disorder, moderate, dependence F11.20 and Opioid use disorder, severe, in early remission F11.21 [facility] [id number] [place] [address] 21474- 6563 Jun, [place] [facility] [address] 76864- 6007 Jun, Long-term use of high-risk medication Z79.899 [place] [facility] [address] 02615- 5406 Jun, CHI I (cervical intraepithelial neoplasia I) N87.0 [facility] [id number] [place] [address] 75423- 3118 May, Opioid use disorder, severe, in early remission F11.21 [facility] [id number] [place] [address] 82791- 7103 18 May, 2017 Chronic kidney disease, stage 3 N18.3 [facility] [id number] [place] [address] 07178- 9358 14 May, 2017 Chronic kidney disease, stage 3 N18.3 [facility] [address] [place] [address] 05 May, 2017 Opioid use disorder, severe, in sustained remission F11.21 [facility] [id number] [place] [address] 39570- 9138 Apr, LGSIL on Pap smear of cervix R87.612 [facility] [address] [place] [address] Apr, [facility] [address] 13916- 0694 Apr, Opioid use disorder, severe, in early remission F11.21 [facility] [id number] [place] [address] 96272- 9827 Apr, Opioid use disorder, severe, in early remission F11.21 [facility] [id number] [place] [address] 81652- 0613 Apr, Opioid use disorder, severe, in early remission F11.21 [facility] [id number] [place] [address] 93966- 6724 18 Apr, 2017 Opioid use disorder, severe, in early remission F11.21 [facility] [id number] [place] [address] 91089- 6969 14 Apr, 2017 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 [facility] [id number] [place] [address] 56637- 2322 Apr, Opioid use disorder, severe, in early remission F11.21 [facility] [address] [place] [address] Apr, Opioid use disorder, severe, in sustained remission F11.21 [facility] [id number] [place] [address] 12419- 3489 Apr, Opioid use disorder, severe, in early remission F11.21 [facility] [id number] [place] [address] 95037- 6096 Apr, Mild episode of recurrent major depressive disorder F33.0 and Right acute serous otitis media, recurrence not specified H65.01 [facility] [id number] [place] [address] 13183- 9729 Mar, [facility] [id number] [place] [address] 93282- 2716 Mar, Opioid use disorder, severe, in early remission F11.21 [facility] [id number] [place] [address] 51585- 3352 Mar, [facility] [address] [place] [address] Mar, Opioid use disorder, severe, in sustained remission F11.21 [facility] [address] [place] [address] Mar, Opioid use disorder, severe, in sustained remission F11.21 [facility] [id number] [place] [address] 58457- 0270 Mar, Opioid use disorder, severe, in early remission F11.21 [facility] [id number] [place] [address] 49550- 1576 Jan, Opioid use disorder, severe, in early remission F11.21 [facility] [address] [place] [address] Jan, Opioid use disorder, severe, in sustained remission F11.21 [facility] [address] [place] [address] Jan, Opioid use disorder, severe, in sustained remission F11.21 [place] [id number] [place] [address] 10583- 5652 Jan, Opioid use disorder, severe, in early remission F11.21 [facility] [address] [place] [address] Jan, Opioid use disorder, severe, in sustained remission F11.21 [facility] [address] [place] [id number] [place] [address] 07608- 3277 December, Opioid use disorder, severe, in early remission F11.21 [facility] [address] [place] [address] December, Opioid use disorder, severe, in sustained remission F11.21 [facility] [address] [place] [id number] [place] [address] 39015- 5259 December, Routine gynecological examination Z01.419 and Chronic kidney disease, stage 3 N18.3 [facility] [id number] [place] [address] 44190- 1105 December, Chronic kidney disease, stage 3 N18.3 ; 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 ; Gastroparesis K31.84 ; Essential hypertension I10 and Irritable bowel syndrome with constipation K58.1 [facility] [address] [place] [address] December, Opioid use disorder, severe, in sustained remission F11.21 [facility] [id number] [place] [address] 44612- 7462 December, Opioid use disorder, severe, in early remission F11.21 [facility] [address] [place] [address] December, Opioid use disorder, severe, in sustained remission F11.21 [facility] [id number] [place] [address] 97300- 4418 December, Encounter for therapeutic drug level monitoring Z51.81 [facility] [address] [place] [address] December, Opioid use disorder, severe, in sustained remission F11.21 [facility] [address] [place] [address] Dec, Opioid use disorder, severe, in sustained remission F11.21 [facility] [id number] [place] [address] 85051- 6369 Dec, Opioid use disorder, severe, in early remission F11.21 [facility] [id number] [place] [address] 28488- 8749 Dec, [facility] [address] [place] [address] Dec, Opioid use disorder, severe, in sustained remission F11.21 [facility] [id number] [place] [address] 14935- 7467 Dec, Opioid use disorder, severe, in early remission F11.21 [facility] [address] [place] [address] Dec, Opioid use disorder, severe, in sustained remission F11.21 [facility] [id number] [place] [address] 99015- 1524 Dec, 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 [facility] [id number] [place] [address] 95519- 6084 03 Dec, 2016 Opioid use disorder, severe, in sustained remission F11.21 ; Encounter for therapeutic drug level monitoring Z51.81 and Other terminal gauger ( 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 Z79.899 [facility] [address] [place] [address] 31 Oct, 2016 Opioid use disorder, severe, in sustained remission F11.21 [facility] [address] 66067- 8541 Oct, Opioid use disorder, severe, in early remission F11.21 [place] [address] 57151- 2383 15 Oct, 2016 [facility] [address] [place] [address] 15 Oct, 2016 Opioid use disorder, severe, in sustained remission F11.21 [place] [id number] [place] [address] 94364- 7499 Oct, 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 [place] [facility] [id number] [place] [address] 15250- 8950 14 Oct, 2016 Routine gynecological examination Z01.419 [place] [facility] [id number] [place] [address] 33647- 8648 07 Oct, 2016 Opioid use disorder, severe, in early remission F11.21 [place] [facility] [id number] [place] [address] 02180- 7659 06 Oct, 2016 Opioid use disorder, severe, in early remission F11.21 [place] [facility] [id number] [place] [address] 58046- 1296 Oct, Opioid use disorder, severe, in early remission F11.21 [facility] [address] [place] [address] Oct, Opioid use disorder, severe, in sustained remission F11.21 [facility] [id number] [place] [address] 30964- 2323 Oct, Opioid use disorder, severe, in early remission F11.21 [facility] [id number] [place] [address] 72339- 6404 Oct, Opioid use disorder, severe, in early remission F11.21 [facility] [address] [place] [address] Oct, Opioid use disorder, severe, in sustained remission F11.21 [facility] [id number] [place] [address] 88915- 3278 Oct, Opioid use disorder, severe, in sustained remission F11.21 ; Encounter for therapeutic drug level monitoring Z51.81 and Other terminal gauger ( 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 Z79.899 [facility] [id number] [place] [address] 89856- 6806 16 Oct, 2016 [facility] [address] [place] [address] 14 Oct, 2016 Opioid use disorder, severe, in early remission F11.21 [facility] [address] [place] [address] 10 Oct, 2016 Opioid use disorder, severe, in early remission F11.21 [facility] [id number] [place] [address] 02154- 3771 09 Oct, 2016 Opioid use disorder, severe, in early remission F11.21 [facility] [id number] [place] [address] 62271- 0729 08 Oct, 2016 [facility] [id number] [place] [address] 46681- 7605 Oct, [facility] [id number] [place] [address] 77340- 1385 Oct, [facility] [address] [place] [address] Oct, Opioid use disorder, severe, in early remission F11.21 [facility] [id number] [place] [address] 04304- 8846 Sep, Opioid use disorder, severe, in early remission F11.21 [facility] [address] [place] [address] Sep, Opioid use disorder, severe, in early remission F11.21 [facility] [address] 46913- 2706 Sep, Opioid use disorder, severe, in early remission F11.21 ; Other terminal gauger (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 Z79.899 and Encounter for therapeutic drug level monitoring Z51.81 [facility] [address] [place] [address] 29592- 9281 Sep, [facility] [address] 88780- 3178 Sep, [facility] [address] [place] [address] 66316- 4629 Sep, Opioid use disorder, severe, in early remission F11.21 ; 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 ; Chronic kidney disease, stage 3 N18.3 ; Essential hypertension I10 and Irritable bowel syndrome with constipation K58.1 [facility] [address] [place] [address] 17 Sep, 2016 Opioid use disorder, severe, in early remission F11.21 [facility] [address] [place] [address] 12 Sep, 2016 Opioid use disorder, severe, in early remission F11.21 [facility] [address] [place] [id number] [place] [address] 90134- 6716 Sep, Opioid use disorder, moderate, dependence F11.20 [facility] [id number] [place] [address] 12475- 9903 05 Sep, 2016 Opioid use disorder, moderate, dependence F11.20 [facility] [address] [place] [address] 05 Sep, 2016 Opioid use disorder, severe, in early remission F11.21 [facility] [address] [place] [id number] [place] [address] 63412- 1084 Sep, Opioid use disorder, severe, in early remission F11.21 [facility] [address] [place] [address] Aug, Opioid use disorder, severe, in early remission F11.21 [facility] [id number] [place] [address] 522549- 2907 Aug, Opioid use disorder, moderate, dependence F11.20 [facility] [id number] [place] [address] 87332 -1968 Aug, Bug bite without infection, initial encounter W57.XXXA [facility] [id number] [place] [address] 58449- 0245 Aug, Opioid use disorder, moderate, dependence F11.20 [facility] [address] [place] [address] Aug, [facility] [address] 91527- 2535 Aug, Opioid use disorder, severe, in early remission F11.21 ; Other terminal gauger (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 Z79.899 ; Encounter for therapeutic drug level monitoring Z51.81 and 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 [facility] [address] [place] [address] Aug, [facility] [address] 35517- 4419 Aug, Opioid use disorder, moderate, dependence F11.20 ; Other terminal gauger (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 Z79.899 and Encounter for therapeutic drug level monitoring Z51.81 [facility] [id number] [place] [address] 36700- 6546 Aug, [facility] [id number] [place] [address] 67653- 8720 Aug, Non-intractable vomiting with nausea, unspecified vomiting type R11.2 [facility] [id number] [place] [address] 77465- 2601 Aug, Opioid use disorder, moderate, dependence F11.20 and Non- intractable vomiting with nausea, unspecified vomiting type R11.2 [facility] [id number] [place] [address]- 1293 Aug, [facility] [id number] [place] [address] 11135- 2566 Aug, Opioid use disorder, moderate, dependence F11.20 [facility] [id number] [place] [address] 51524- 6165 Aug, [facility] [id number] [place] [address] 23083- 7950 Jul, 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 and Opioid use disorder, moderate, dependence F11.20 [facility] [address] [place] [address] Jul, [facility] [id number] [place] [address] 33374- 9620 Jul, [facility] [id number] [place] [address] 53242- 1581 Jul, [facility] [id number] [place] [address] 72740- 6133 Jul, Addiction to drug F19.20 and Chronic kidney disease, stage 3 N18.3 [facility] [address] [place] [address] Jul, Counseling on substance use and abuse Z71.89 [facility] [id number] [place] [address] 98269- 3070 Jul, Chronic kidney disease, stage 3 N18.3 [facility] [id number] [place] [address] 48137- 6309 Jul, 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 ; Diarrhea, unspecified type R19.7 and Essential hypertension I10 [facility] [id number] [place] [address] 72726- 6230 Jul, [facility] [id number] [place] [address] 08756- 3226 Jun, [facility] [id number] [address]- 8933 Jun, [facility] [id number] [place] [address] 81753- 9938 Apr, 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 [facility] [id number] [place] [address] 10158- 0245 Apr, Sore throat and laryngitis J06.0 and Non-intractable vomiting with nausea, unspecified vomiting type R11.2 [facility] [id number] [place] [address] 73392- 2071 Apr, [facility] [id number] [place] [address] 65493- 2223 Mar, [facility] [id number] [place] [address] 76426- 1945 Jan, [facility] [id number] [place] [address] 18535- 8907 Jan, [facility] [id number] [place] [address] 78014- 8458 Jan, [facility] [id number] [place] [address] 37005- 8548 December, 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 ; Gastroparesis K31.84 ; Mixed hyperlipidemia E78.2 ; Chronic kidney disease, stage 3 N18.3 ; Dysthymia F34.1 and Acute bilateral low back pain without sciatica M54.5 [facility] [address] [address]- 8559 December, [facility] [id number] [place] [address] 17711- 1091 December, [facility] [id number] [place] [address] 45054- 0642 Aug, Depression F32.9 and Gastroparesis K31.84 [facility] [address] [address] [address] Aug, Gastroparesis K31.84 [facility] [address] [address] Jul, Recurrent UTI N39.0 ; Chronic kidney disease, stage 3 N18.3 and 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 [facility] [address] [address] Jul, [facility] [address] [id number] Jul, Dental examination Z01.20 and Dental caries K02.9 [place] [address] [address] Jul, [facility] [address] [address] Jul, Dysuria R30.0 ; Urinary tract infection N39.0 and Nausea R11.0 [facility] [address] [address] Jun, Dysuria R30.0 [facility] [address] [address] Jun, Dysuria R30.0 [facility] [address] [address] Jun, Dysuria R30.0 [facility] [id number] [place] [address] Jun, [facility] [id number] [place] [address] Jun, Acute cystitis with hematuria N30.01 [facility] [id number] [place] [phone] May, [facility] [id number] [place] [phone] Apr, Diabetes mellitus without mention of complication, type I [ juvenile type], not stated as uncontrolled 250.01 ; Gastroparesis due to DM 250.60 ; Contraception management V25.9 and Renal insufficiency 593.9 [place] [id number] [place] [address] Apr, [place] [id number] [place] [address]- 4548 Apr, [address] [address]- [address] Mar, [place] [id number] [place] [address] 77768- 6010 Mar, Hyperlipidemia 272.4 and Hypertensive heart and chronic kidney disease, benign, without heart failure and with chronic kidney disease stage I through stage IV, or unspecified 404.10 [place] [id number] [place] [address] 26214- 5887 Mar, Hyperlipidemia 272.4 ; Hyponatremia 276.1 ; 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 ; Hypertensive heart and chronic kidney disease, benign, without heart failure and with chronic kidney disease stage I through stage IV, or unspecified 404.10 ; Proteinuria 791.0 and Chronic kidney disease (CKD), stage III (moderate) 585.3 [place] [id number] [place] [address] 07408- 5952 Mar, [place] [id number] [place] [address] 79854- 9260 Mar, Elevated blood sugar level 790.29 [place] [id number] [place] [address] 44476- 9363 Mar, Low grade squamous intraepithelial lesion (LGSIL) on cervical Pap smear 795.03 [place] [id number] [place] [address] 41383- 0732 Mar, Amenorrhea 626.0 [place] [id number] [place] [address] 24725- 4946 Jan, Amenorrhea 626.0 ; Routine gynecological examination V72.31 and Screen for STD (sexually transmitted disease) V74.5 [facility] [address] [facility] [id number], [place] [address] 11 Jan, 2015 Amenorrhea 626.0 [facility] [address] [facility] [id number], [place] [address] 08 Jan, 2015 Routine gynecological examination V72.31 ; Screen for STD ( sexually transmitted disease) V74.5 ; Pap test, as part of routine gynecological examination V76.2 ; Breast cancer screening V76.10 and Amenorrhea 626.0 [facility] [address] [facility] [id number], [place] [address] December, [facility] [address] [id number] 5690 Dec, [facility] [id number], [place] [address] 2020 Dec, [facility] [address] [id number], [place] [address]- 9217 Oct, [facility] [id number] 5108 Oct, [facility] [address] [id number] 3958 Oct, [facility] [id number], [place] [address]- 1303 Oct, [facility] [address] [facility] [id number], [place] [address]- 6900 Oct, [facility] [id number], [place] [address]- 6420 Oct, [facility] [address] [facility] [id number], [place] [address]- 9826 Oct, [facility] [address] [id number], [place] [address]- 2126 Oct, [facility] [place] [facility] [address] [id number] [place] [address]- 0100 Oct, [facility] [place] [facility] [address] [id number] [place] [address]- 8918 Oct, [facility] [place] [facility] [address] [id number] [place] [address]- 7460 Oct, [facility] [place] [facility] [address] [id number] [place] [address]- 5449 Sep, [facility] [place] [facility] [address] [id number] [place] [address]- 4675 Sep, [facility] [place] [facility] [address] [id number] [place] [address]- 9523 Sep, [facility] [place] [facility] [address] [id number] [place] [address]- 4099 Sep, [facility] [place] [facility] [address] [id number] [place] [address]- 7400 16 Sep, 2014 [facility] [place] [facility] [address] [id number] [place] [address]- 7831 Sep, [facility] [place] [facility] [address] [id number], [place] [address]- 2479 Sep, [facility] [place] [facility] [address] [id number], [place] [address]- 4421 15 Sep, 2014 [facility] [place] [facility] [address] [id number], [place] [address]- 3623 15 Sep, 2014 [facility] [place] [facility] [address] [id number] [place] [address]- 5346 Sep, [facility] [place] [facility] [address] [id number], [place] [address]- 1441 Sep, [facility] [place] [facility] [address] [id number], [place] [address]- 2014 13 Sep, 2014 [facility] [place] [facility] [address] [id number], [place] [address]- 4673 Sep, [facility] [place] [facility] [address] [id number] [place] [address]- 2892 Sep, [facility] [place] [facility] [address] [id number] [place] [address]- 2934 Sep, [facility] [place] [facility] [address] [facility] [id number] [place] [address]- 3212 Sep, [facility] [place] [facility] [address] [id number] [place] [address]- 1202 Sep, [facility] [place] [facility] [address] [id number] [place] [address]- 6943 Sep, [facility] [place] [facility] [address] [id number] [place] [address]- 8293 Sep, [facility] [place] [facility] [address] [facility] [id number] [place] [address]- 7541 Sep, [facility] [place] [facility] [address] [id number] [place] [address]- 9778 Aug, [facility] [place] [facility] [address] [id number] [place] [address]- 7510 Aug, [facility] [place] [facility] [address] [facility] [id number] [place] [address]- 0583 Aug, [facility] [place] [facility] [address] [facility] [id number] [place] [address]- 4422 Aug, [facility] [place] [facility] [address] [id number] [place] [address]- 8028 Aug, [facility] [place] [facility] [address] [id number] [place] [address]- 1324 Aug, [facility] [place] [facility] [address] [id number] [place] [address]- 4189 Aug, [facility] [place] [facility] [address] [facility] [id number] [place] [address]- 8555 Aug, [facility] [place] [facility] [address] [id number] [place] [address]- 5247 Aug, [facility] [place] [facility] [address] [id number] [place] [address]- 2738 Aug, [facility] [place] [facility] [address] [id number] [place]- 8551 Aug, [facility] [place] [facility] [address] [id number] [place] 8676 Aug, [facility] [place] [facility] [address] [id number] [place] [address]- 2191 Jul, [facility] [place] [facility] [address] [id number] [place] [address]- 0472 Jul, [facility] [place] [facility] [address] [id number] [place] [address]- 4250 Jul, [facility] [place] [facility] [address] [id number] [place] [address]- 4169 Jul, [facility] [place] [facility] [address] [id number] [place] [address]- 9786 Jul, [facility] [place] [facility] [address] [id number] [place] [address]- 1175 Jul, [facility] [place] [facility] [address] [facility] [id number] [place] [address]- 5353 Jul, [facility] [place] [facility] [address] [id number] [place] [address]- 9855 Jul, [facility] [place] [facility] [address] [id number] [place] [address]- 4833 Jul, [facility] [place] [facility] [address] [id number] [place] [address]- 8888 Jul, [facility] [place] [facility] [address] [id number] [place] 7494 Jun, [facility] [place] [facility] [address] [id number] [place] [address]- 8627 31 Jun, 2014 [facility] [place] [facility] [address] [id number] [place] [address]- 5639 30 Jun, 2014 [facility] [place] [facility] [address] [id number] [place] [address]- 0355 30 Jun, 2014 [facility] [place] [facility] [address] [id number] [place] [address]- 5412 30 Jun, 2014 [facility] [place] [facility] [address] [id number] [place] [address]- 5057 30 Jun, 2014 [facility] [place] [facility] [address] [id number] [place] [address]- 4663 15 Jun, 2014 [facility] [place] [facility] [address] [id number] [place] [address]- 3548 15 Jun, 2014 [facility] [place] [facility] [address] [id number] [place] [address]- 9280 May, [facility] [place] [facility] [address] [id number] [place] [address]- 3668 22 May, 2014 [facility] [place] [facility] [address] [id number] [place] [address]- 7844 18 May, 2014 [facility] [place] [facility] [address] [id number] [place] [address]- 0990 18 May, 2014 [facility] [place] [facility] [address] [id number], [place] [address]- 5645 09 May, 2014 [facility] [place] [facility] [address] [id number], [place] [address]- 3488 08 May, 2013 [facility] [place] [facility] [address] [id number] [place] [address]- 3687 02 May, 2014 [facility] [place] [facility] [address] [id number] [place] [address]- 8392 02 May, 2013 [facility] [place] [facility] [address] [id number] [place] [address]- 3605 Apr, [facility] [place] [facility] [address] [id number] [place] [address]- 1461 Apr, [facility] [place] [facility] [address] [id number] [place] [address]- 6778 Apr, [facility] [place] [facility] [address] [id number] [place] [address]- 8092 Apr, [facility] [place] [facility] [address] [id number] [place] [address]- 2395 Mar, [facility] [place] [facility] [address] [id number] [place] [address]- 8949 Mar, [facility] [place] [facility] [address] [id number] [place] [address]- 3632 Mar, [facility] [place] [facility] [address] [id number] [place] [address]- 3964 Mar, [facility] [place] [facility] [address] [id number] [place] [address]- 1060 Mar, [facility] [place] [facility] [address] [id number] [place] [address]- 9965 Mar, [facility] [place] [facility] [address] [id number] [place] [address]- 0766 Jan, [facility] [place] [facility] [address] [id number] [place] [address]- 3028 Jan, [facility] [place] [facility] [address] [id number] [place] [address]- 2199 Jan, [facility] [place] [facility] [address] [id number] [place] [address]- 6342 Jan, [facility] [place] [facility] [address] [id number] [place] [address]- 4298 Jan, [facility] [place] [facility] [address] [id number] [place] [address]- 2022 Jan, [facility] [place] [facility] [address] [id number] [place] [address]- 5206 Jan, [facility] [place] [facility] [address] [id number] [place] [address]- 3122 Jan, [facility] [place] [facility] [address] [id number] [place] [address]- 5276 Jan, [facility] [place] [facility] [address] [id number] [place] [address]- 4484 Jan, [facility] [place] [facility] [address] [id number] [place] [address]- 3884 Jan, [facility] [place] [facility] [address] [id number] [place] [address]- 0003 Jan, [facility] [place] [facility] [address] [id number] [place] [address]- 3900 December, [facility] [place] [facility] [address] [id number] [place] [address]- 7577 December, [facility] [place] [facility] [address] [id number] [place] [address]- 5255 December, [facility] [place] [facility] [address] [id number] [place] [address]- 0794 December, [facility] [place] [facility] [address] [id number] [place] [address]- 1626 Dec, [facility] [place] [facility] [address] [id number] [place] [address]- 3769 Dec, [facility] [place] [facility] [address] [id number] [place] [address]- 7909 Dec, [facility] [place] [facility] [address] [id number] [place] [address]- 6072 Dec, [facility] [place] [facility] [address] [id number] [place] [address]- 9310 Dec, [facility] [place] [facility] [address] [id number] [place] [address]- 8991 Dec, [facility] [place] [facility] [address] [id number] [place] [address]- 2391 Dec, [facility] [place] [facility] [address] [id number] [place] [address]- 8050 Dec, [facility] [place] [facility] [address] [id number] [place] 8300 Dec, [facility] [place] [facility] [address] [id number] [place] [address]- 3377 Dec, [facility] [place] [facility] [address] [id number] [place] 0692 Dec, [facility] [place] [facility] [address] [id number] [place] [address]- 7752 Dec, [facility] [place] [facility] [address] [id number] [place] [address]- 4816 Dec, [facility] [place] [facility] [address] [id number] [place] [address]- 4082 Dec, [facility] [place] [facility] [address] [id number] [place] [address]- 2824 Oct, [facility] [place] [facility] [address] [id number] [place] [address]- 2238 Oct, [facility] [place] [facility] [address] [id number] [place] [address]- 5303 Oct, [facility] [place] [facility] [address] [id number], [place] [address]- 0256 Oct, [facility] [place] [facility] [address] [id number], [place] [address]- 0682 Oct, [facility] [place] [facility] [address] [id number] [place] [address]- 7489 Oct, [facility] [place] [facility] [address] [id number] [place] [id number] Oct, [facility] [place] [facility] [address] [id number] [place] 6819 Oct, [facility] [place] [facility] [address] [facility] [id number], [place] [address]- 7868 Oct, [facility] [address] [facility] [id number], [place] [address]- 7308 Oct, [facility] [address] [facility] [id number], [place] [address]- 9140 Sep, [facility] [address] [facility] [id number][place]- 4067 Sep, [facility] [address] [facility] [id number], [place] [address]- 3050 Sep, [facility] [address] [facility] [id number], [place] [address]- 9656 Sep, [facility] [address] [facility] [id number], [place] [address]- 8559 Sep, [facility] [id number], [place] [address]- 3629 Sep, [facility] [id number], [place] [address]- 5012 Aug, [facility] [id number], [place] [address]- 0454 Aug, [facility] [address] [id number], [place] [address]- 6169 Jul, [facility] [address] [id number], [place] [address]- 0418 Jul, [facility] [address] [id number], [place] [address]- 6535 Jul, [facility] [address] [facility] [id number], [place] [address]- 9581 Jul, [facility] [address] [id number], [place] [address]- 2330 Jul, IMMUNIZATIONS No Known Immunizations SOCIAL HISTORY Never Assessed REASON FOR VISIT Refill request PLAN OF CARE VITAL SIGNS MEDICATIONS Medication Instructions Dosage Frequency Start Date End Date Duration Status Dicyclomine HCl 10 MG TAKE ONE CAPSULE BY MOUTH TWICE DAILY NEEDED 30 Active Enalapril Maleate 10 mg TAKE ONE TABLET BY MOUTH TWICE DAILY 30 Active RESULTS No Results PROCEDURES No Known [...]
--- OUTSIDE RECORDS SUMMARY | 2018-08-30 20:43 | XMS REPORT ---
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 Active 62304236 Problem Chronic kidney disease, stage 3 N18.3 Active 551306089 Problem CHI I (cervical intraepithelial neoplasia I) N87.0 Active 018686459 Problem Mild episode of recurrent major depressive disorder F33.0 Active 753625995 Problem Addiction to drug F19.20 Active 140876915 Problem Essential hypertension I10 Active 66844227 Problem Opioid use disorder, severe, in sustained remission F11.21 Active 79582377 Problem Irritable bowel syndrome with constipation K58.1 Active 388305640 ALLERGIES No Information ENCOUNTERS Encounter Location Date Diagnosis [facility] [address] [place] [address] December, [facility] [id number] [place] [address] 72651- 4356 December, [facility] [id number] [place] [address] 09473- 2614 December, Opioid use disorder, severe, in sustained remission F11.21 and 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 [facility] [id number] [place] [address] 09960- 8248 December, Opioid use disorder, severe, in early remission F11.21 [facility] [address] [place] [address] Dec, Opioid use disorder, severe, in sustained remission F11.21 [facility] [id number] [place] [address] 25548- 9795 Dec, 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 ; Unprotected sexual intercourse Z72.51 ; Pain of left thumb M79.645 ; Mixed hyperlipidemia E78.2 ; Gastroparesis K31.84 ; Essential hypertension I10 and Irritable bowel syndrome with constipation K58.1 [facility] [address] 18421- 4470 Dec, Opioid use disorder, severe, in early remission F11.21 [facility] [address] 10832- 3135 Oct, [facility] [address] 80308- 1690 Oct, Opioid use disorder, severe, in early remission F11.21 [facility] [address] 41666- 4551 Oct, [facility] [address] 19915- 5428 Oct, Opioid use disorder, severe, in early remission F11.21 [facility] [address] 89336- 3802 Oct, [facility] [address] 90280- 8246 Oct, [facility] [address] [place] [address] Oct, Opioid use disorder, severe, in sustained remission F11.21 [facility] [address] 02932- 6906 Sep, [facility] [address] 18309- 9835 Sep, [facility] [address] 15010- 3018 Sep, Opioid use disorder, severe, in early remission F11.21 [facility] [id number] [place] [address] 13047- 0276 Aug, Opioid use disorder, severe, in early remission F11.21 [facility] [id number] [place] [address] 45046- 2387 Jul, [facility] [id number] [place] [address] 16379- 3030 Jul, Chronic kidney disease, stage 3 N18.3 ; Dysthymia F34.1 and Opioid use disorder, severe, in sustained remission F11.21 [facility] [address] [place] [address] Jul, Opioid use disorder, severe, in sustained remission F11.21 [facility] [id number] [place] [address] 09315- 2845 Jul, Long-term use of high-risk medication Z79.899 and Chronic kidney disease, stage 3 N18.3 [facility] [id number] [place] [address] 38784- 0141 Jul, Opioid use disorder, severe, in early remission F11.21 [facility] [address] [address] 7654 Jul, [facility] [id number] [place] [address] 21546- 8852 Jun, [facility] [id number] [place] [address] 02712- 7544 Jun, [facility] [id number] [place] [address] 01899- 0606 Jun, Opioid use disorder, moderate, dependence F11.20 and Opioid use disorder, severe, in early remission F11.21 [facility] [address] [place] [address] 01793- 7904 Jun, [facility] [id number] [place] [address] 86713- 9371 Jun, Long-term use of high-risk medication Z79.899 [facility] [id number] [place] [address] 35046- 2337 Jun, CHI I (cervical intraepithelial neoplasia I) N87.0 [facility] [id number] [place] [address] 26871- 6947 May, Opioid use disorder, severe, in early remission F11.21 [facility] [id number] [place] [address] 40802- 9934 18 May, 2017 Chronic kidney disease, stage 3 N18.3 [facility] [id number] [place] [address] 58830- 3045 14 May, 2017 Chronic kidney disease, stage 3 N18.3 [facility] [address] [place] [address] 05 May, 2017 Opioid use disorder, severe, in sustained remission F11.21 [facility] [id number] [place] [address] 03545- 3496 Apr, LGSIL on Pap smear of cervix R87.[address] [address] Apr, [facility] [id number] [place] [address] 07162- 8409 Apr, Opioid use disorder, severe, in early remission F11.21 [facility] [id number] [place] [address] 95640- 0084 Apr, Opioid use disorder, severe, in early remission F11.21 [facility] [id number] [place] [address] 50951- 6023 Apr, Opioid use disorder, severe, in early remission F11.21 [facility] [id number] [place] [address] 10541- 6973 Apr, Opioid use disorder, severe, in early remission F11.21 [facility] [address] [place] [address] 26757- 8116 14 Apr, 2017 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 [facility] [id number] [place] [address] 14728- 8745 Apr, Opioid use disorder, severe, in early remission F11.21 [facility] [address] [place] [address] Apr, Opioid use disorder, severe, in sustained remission F11.21 [facility] [id number] [place] [address] 61899- 9020 Apr, Opioid use disorder, severe, in early remission F11.21 [facility] [id number] [place] [address] 59760- 1127 Apr, Mild episode of recurrent major depressive disorder F33.0 and Right acute serous otitis media, recurrence not specified H65.01 [facility] [id number] [place] [address] 94718- 3578 Mar, [facility] [id number] [place] [address] 92477- 3500 Mar, Opioid use disorder, severe, in early remission F11.21 [facility] [id number] [place] [address] 40924- 1052 Mar, [facility] [address] [place] [address] Mar, Opioid use disorder, severe, in sustained remission F11.21 [facility] [address] [place] [address] Mar, Opioid use disorder, severe, in sustained remission F11.21 [facility] [id number] [place] [address] 29452- 1691 Mar, Opioid use disorder, severe, in early remission F11.21 [facility] [id number] [place] [address] 12292- 6554 Jan, Opioid use disorder, severe, in early remission F11.21 [facility] [address] [place] [address] Jan, Opioid use disorder, severe, in sustained remission F11.21 [facility] [address] [place] [address] Jan, Opioid use disorder, severe, in sustained remission F11.21 [facility] [id number] [place] [address] 72877- 9641 Jan, Opioid use disorder, severe, in early remission F11.[address] [facility] [place] [address] Jan, Opioid use disorder, severe, in sustained remission F11.21 [facility] [id number] [place] [address] 10380- 4218 December, Opioid use disorder, severe, in early remission F11.[address] 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 ; Gastroparesis K31.84 ; Essential hypertension I10 and Irritable bowel syndrome with constipation K58.1 [facility] [address] [place] [address] December, Opioid use disorder, severe, in sustained remission F11.21 [facility] [id number] [place] [address] 65941- 5859 December, Opioid use disorder, severe, in early remission F11.21 [facility] [address] [place] [address] December, Opioid use disorder, severe, in sustained remission F11.[address] 51438- 6724 December, Encounter for therapeutic drug level monitoring Z51.81 [facility] [address] [place] [address] December, Opioid use disorder, severe, in sustained remission F11.21 [facility] [address] [place] [address] Dec, Opioid use disorder, severe, in sustained remission F11.21 [facility] [id number] [place] [address] 27938- 8495 Dec, Opioid use disorder, severe, in early remission F11.21 [facility] [address] 60155- 9316 Dec, [facility] [address] [place] [address] Dec, Opioid use disorder, severe, in sustained remission F11.21 [facility] [id number] [place] [address] 31976- 1921 Dec, Opioid use disorder, severe, in early remission F11.21 [facility] [address] [place] [address] Dec, Opioid use disorder, severe, in sustained remission F11.21 [facility] [address] 03616- 6123 Dec, 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 [facility] [id number] [place] [address] 66039- 3508 Dec, Opioid use disorder, severe, in sustained remission F11.21 ; Encounter for therapeutic drug level monitoring Z51.81 and Other chcf ( 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 Z79.899 [facility] [address] [place] [address] Oct, Opioid use disorder, severe, in sustained remission F11.21 [facility] [id number] [place] [address] 99147- 9051 Oct, Opioid use disorder, severe, in early remission F11.21 [facility] [address] [place] [id number] [place] [address] 83878- 6142 Oct, [facility] [address] [place] [address] 15 Oct, 2016 Opioid use disorder, severe, in sustained remission F11.21 [facility] [id number] [place] [address] 24333- 1787 15 Oct, 2016 Type 1 diabetes mellitus with diabetic chronic kidney disease E10.[address] 69742- 1384 14 Oct, 2016 Routine gynecological examination Z01.[address] 41091- 2640 07 Oct, 2016 Opioid use disorder, severe, in early remission F11.21 [facility] [address] 43117- 3026 06 Oct, 2016 Opioid use disorder, severe, in early remission F11.[address] 85892- 9583 06 Oct, 2016 Opioid use disorder, severe, in early remission F11.21 [facility] [address] [place] [address] 02 Oct, 2016 Opioid use disorder, severe, in sustained remission F11.21 [facility] [address] 54771- 0887 24 Oct, 2016 Opioid use disorder, severe, in early remission F11.21 [place] [id number] [place] [address] 36351- 9956 Oct, Opioid use disorder, severe, in early remission F11.21 [facility] [address] [place] [address] Oct, Opioid use disorder, severe, in sustained remission F11.[address] 34148- 5651 Oct, Opioid use disorder, severe, in sustained remission F11.21 ; Encounter for therapeutic drug level monitoring Z51.81 and Other chcf ( 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 Z79.[id number] [place] [address] 23543- 7398 16 Oct, 2016 [facility] [address] [place] [address] 14 Oct, 2016 Opioid use disorder, severe, in early remission F11.21 [facility] [address] [place] [address] 10 Oct, 2016 Opioid use disorder, severe, in early remission F11.21 [facility] [id number] [place] [address] 60068- 8237 09 Oct, 2016 Opioid use disorder, severe, in early remission F11.21 [facility] [id number] [place] [address] 23412- 0984 08 Oct, 2016 [facility] [id number] [place] [address] 11195- 8869 Oct, [facility] [id number] [place] [address] 81753- 3060 Oct, [facility] [address] [place] [address] Oct, Opioid use disorder, severe, in early remission F11.21 [facility] [id number] [place] [address] 11663- 8150 Sep, Opioid use disorder, severe, in early remission F11.21 [facility] [address] [place] [address] Sep, Opioid use disorder, severe, in early remission F11.21 [facility] [id number] [place] [address] 56567- 2746 Sep, Opioid use disorder, severe, in early remission F11.21 ; Other [employer] (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 Z79.899 and Encounter for therapeutic drug level monitoring Z51.81 [facility] [id number] [place] [address] 92785- 3452 Sep, [facility] [id number] [place] [address] 04693- 3914 Sep, [facility] [address] [place] [id number] [place] [address] 61417- 5385 Sep, Opioid use disorder, severe, in early remission F11.21 ; 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 ; Chronic kidney disease, stage 3 N18.3 ; Essential hypertension I10 and Irritable bowel syndrome with constipation K58.1 [facility] [address] [place] [address] Sep, Opioid use disorder, severe, in early remission F11.21 [facility] [address] [place] [address] Sep, Opioid use disorder, severe, in early remission F11.[address] 127014- 9986 Sep, Opioid use disorder, moderate, dependence F11.[address] 46548- 7277 Sep, Opioid use disorder, moderate, dependence F11.20 [facility] [address] [place] [address] Sep, Opioid use disorder, severe, in early remission F11.[address] 61441- 6100 Sep, Opioid use disorder, severe, in early remission F11.21 [facility] [address] [place] [address] Aug, Opioid use disorder, severe, in early remission F11.21 [facility] [address] [place] [address] 27453- 3516 Aug, Opioid use disorder, moderate, dependence F11.20 [facility] [address] [place] [address] 15920 -1526 Aug, Bug bite without infection, initial encounter W57.XXXA [address] 86186- 1151 Aug, Opioid use disorder, moderate, dependence F11.20 [facility] [address] [place] [address] Aug, [facility] [id number] [place] [address] 85711- 7949 Aug, Opioid use disorder, severe, in early remission F11.21 ; Other chcf (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 Z79.899 ; Encounter for therapeutic drug level monitoring Z51.81 and 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 [facility] [address] [place] [address] 15 Aug, 2016 [facility] [address] 86944- 0290 Aug, Opioid use disorder, moderate, dependence F11.20 ; Other chcf (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 Z79.899 and Encounter for therapeutic drug level monitoring Z51.81 [facility] [id number] [place] [address] 59255- 8315 13 Aug, 2016 [facility] [address] 72072- 9381 Aug, Non-intractable vomiting with nausea, unspecified vomiting type R11.2 [facility] [id number] [place] [address] 99710- 8126 Aug, Opioid use disorder, moderate, dependence F11.20 and Non- intractable vomiting with nausea, unspecified vomiting type R11.2 [facility] [id number] [place] [address] 49235- 2075 Aug, [facility] [id number] [place] [address] 76169- 4707 Aug, Opioid use disorder, moderate, dependence F11.20 [facility] [id number] [place] [address] 45423- 3040 Aug, [facility] [address] 67768- 1786 Jul, 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 and Opioid use disorder, moderate, dependence F11.20 [facility] [address] [place] [address] Jul, [facility] [id number] [place] [address] 21813- 0305 Jul, [facility] [id number] [place] [address] 29765- 1940 Jul, [facility] [id number] [place] [address] 57360- 9134 Jul, Addiction to drug F19.20 and Chronic kidney disease, stage 3 N18.3 [facility] [address] [place] [address] Jul, Counseling on substance use and abuse Z71.89 [facility] [address] 47877- 6150 Jul, Chronic kidney disease, stage 3 N18.3 [facility] [id number] [place] [address] 88838- 9192 Jul, 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 ; Diarrhea, unspecified type R19.7 and Essential hypertension I10 [facility] [id number] [place] [address] 64359- 6981 Jul, [facility] [id number] [place] [address] 30336- 7387 Jun, [facility] [id number] [place] [address] 02137- 3547 Jun, [facility] [id number] [place] [address] 75385- 0097 Apr, 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 [facility] [id number] [place] [address] 08392- 6172 Apr, Sore throat and laryngitis J06.0 and Non-intractable vomiting with nausea, unspecified vomiting type R11.2 [facility] [id number] [place] [address] 88846- 5409 Apr, [facility] [address] [place] [address]- 3667 Mar, [facility] [id number] [place] [address] 75403- 1138 Jan, [facility] [id number] [place] [address] 41830- 3153 Jan, [facility] [id number] [place] [address] 57825- 4416 Jan, [facility] [id number] [place] [address] 51602- 5777 December, 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 ; Gastroparesis K31.84 ; Mixed hyperlipidemia E78.2 ; Chronic kidney disease, stage 3 N18.3 ; Dysthymia F34.1 and Acute bilateral low back pain without sciatica M54.5 [facility] [id number] [place] [address] 49771- 6449 December, [facility] [id number] [place] [address] 46166- 5169 December, [facility] [id number] [place] [address] 48030- 0508 Aug, Depression F32.9 and Gastroparesis K31.84 [facility] [id number] [place] [address] 63535- 5870 Aug, Gastroparesis K31.84 [facility] [id number] [place] [address] 98312- 1611 Jul, Recurrent UTI N39.0 ; Chronic kidney disease, stage 3 N18.3 and 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 [facility] [id number] [place] [address] 92919- 7310 Jul, [facility] [address] [id number] Jul, Dental examination Z01.20 and Dental caries K02.9 [facility] [address] [address]- 5595 Jul, [facility] [id number] [place] [address] 67560 -3261 Jul, Dysuria R30.0 ; Urinary tract infection N39.0 and Nausea R11.0 [facility] [id number] [place] [address] 74820- 9899 Jun, Dysuria R30.0 [facility] [id number] [place] [address] 97109- 0873 Jun, Dysuria R30.0 [facility] [address] [phone] Jun, Dysuria R30.0 [facility] [id number] [place] [id number] [phone] Jun, [facility] [id number] [place] [address] [id number]- [id number] Jun, Acute cystitis with hematuria N30.01 [facility] [id number] [place] [address] [id number] May, [facility] [address] [id number] [place] [address] 52337- 8565 Apr, Diabetes mellitus without mention of complication, type I [ juvenile type], not stated as uncontrolled 250.01 ; Gastroparesis due to DM 250.60 ; Contraception management V25.9 and Renal insufficiency 593.9 [facility] [id number] [place] [address] 19119- 5827 Apr, [facility] [id number] [place] [address] 96870- 5307 Apr, [facility] [id number] [place] [address] 99304- 7946 Mar, [facility] [id number] [place] [address] 61655- 6729 Mar, Hyperlipidemia 272.4 and Hypertensive heart and chronic kidney disease, benign, without heart failure and with chronic kidney disease stage I through stage IV, or unspecified 404.10 [id number] [place] [address] 19314- 9847 Mar, Hyperlipidemia 272.4 ; Hyponatremia 276.1 ; 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 ; Hypertensive heart and chronic kidney disease, benign, without heart failure and with chronic kidney disease stage I through stage IV, or unspecified 404.10 ; Proteinuria 791.0 and Chronic kidney disease (CKD), stage III (moderate) 585.3 [id number] [place] [address] 13784- 0674 Mar, [id number] [place] [address] 94439- 3173 Mar, Elevated blood sugar level 790.29 [id number] [place] [address] 35131- 6729 Mar, Low grade squamous intraepithelial lesion (LGSIL) on cervical Pap smear 795.03 [id number] [place] [address] 34372- 7727 Mar, Amenorrhea 626.0 [id number] [place] [address] 74356- 1410 Jan, Amenorrhea 626.0 ; Routine gynecological examination V72.31 and Screen for STD (sexually transmitted disease) V74.5 [id number] [place] [address] 23344- 6216 Jan, Amenorrhea 626.0 [id number] [place] [address] 51973- 7692 08 Jan, 2015 Routine gynecological examination V72.31 ; Screen for STD ( sexually transmitted disease) V74.5 ; Pap test, as part of routine gynecological examination V76.2 ; Breast cancer screening V76.10 and Amenorrhea 626.0 [id number] [place] [address] 89264- 8886 December, [facility] [place] [facility] [address] [id number] [place] [address]- 3172 Dec, [facility] [place] [facility] [address] [id number] [place] [address]- 7105 Dec, [facility] [place] [facility] [address] [id number] [place] [address]- 2221 Oct, [facility] [place] [facility] [address] [id number] [place] [address]- 9040 Oct, [facility] [place] [facility] [address] [id number] [place] [address]- 3297 Oct, [facility] [place] [facility] [address] [id number] [place] [address]- 5036 Oct, [facility] [place] [facility] [address] [facility] [id number] [place] [address]- 6455 Oct, [facility] [place] [facility] [address] [id number] [place] [address]- 1992 Oct, [facility] [place] [facility] [address] [id number] [place] [address]- 5540 Oct, [facility] [place] [facility] [address] [id number] [place] [address]- 5341 Oct, [facility] [place] [facility] [address] [id number] [place] [address]- 5910 Oct, [facility] [place] [facility] [address] [id number] [place] [address]- 7518 Oct, [facility] [place] [facility] [address] [id number] [place] [address]- 1364 Oct, [facility] [place] [facility] [address] [id number] [place] [address]- 4438 Sep, [facility] [place] [facility] [address] [id number] [place] [address]- 2779 Sep, [facility] [place] [facility] [address] [id number] [place] [address]- 1138 16 Sep, 2014 [facility] [place] [facility] [address] [id number] [place] [address]- 8438 Sep, [facility] [place] [facility] [address] [id number] [place] [address]- 4448 16 Sep, 2014 [facility] [place] [facility] [address] [id number] [place] [address]- 1449 Sep, [facility] [place] [facility] [address] [id number] [place] [address]- 5687 15 Sep, 2014 [facility] [place] [facility] [address] [id number] [place] [address]- 5871 Sep, [facility] [place] [facility] [address] [id number] [place] [address]- 4373 Sep, [facility] [place] [facility] [address] [id number] [place] [address]- 8850 Sep, [facility] [place] [facility] [address] [id number] [place] [address]- 1954 Sep, [facility] [place] [facility] [address] [id number] [place] [address]- 7064 Sep, [facility] [place] [facility] [address] [id number] [place] [address]- 9814 Sep, [facility] [place] [facility] [address] [id number] [place] [address]- 8941 Sep, [facility] [place] [facility] [address] [id number] [place] [address]- 6156 Sep, [facility] [place] [facility] [address] [id number] [place] [address]- 3340 Sep, [facility] [place] [facility] [address] [id number] [place] [address]- 8086 Sep, [facility] [place] [facility] [address] [id number] [place] [address]- 5926 Sep, [facility] [place] [facility] [address] [id number] [place] [address]- 5062 Sep, [facility] [place] [facility] [address] [id number] [place] [address]- 3138 Sep, [facility] [place] [facility] [address] [id number] [place] [address]- 4510 Aug, [facility] [place] [facility] [address] [id number] [place] [address]- 0973 Aug, [facility] [place] [facility] [address] [id number] [place] [address]- 0100 Aug, [facility] [place] [facility] [address] [id number] [place] [address]- 6943 Aug, [facility] [place] [facility] [address] [id number] [place] [address]- 3497 Aug, [facility] [place] [facility] [address] [id number] [place] [address]- 1409 Aug, [facility] [place] [facility] [address] [id number] [place] [address]- 9796 Aug, [facility] [place] [facility] [address] [id number] [place] [address]- 9264 Aug, [facility] [place] [facility] [address] [id number] [place] [address]- 4321 Aug, [facility] [place] [facility] [address] [id number] [address]- 4213 Aug, [facility] [place] [facility] [address] [id number] [place] [address]- 8601 Aug, [facility] [place] [facility] [address] [id number] [place] [address]- 7099 Aug, [facility] [place] [facility] [address] [id number] [place] [address]- 4507 Jul, [facility] [place] [facility] [address] [id number] [place] [address]- 6200 Jul, [facility] [place] [facility] [address] [id number] [place] [address]- 1720 Jul, [facility] [place] [facility] [address] [id number] [place] [address]- 7935 Jul, [facility] [place] [facility] [address] [id number] [place] [address]- 6102 Jul, [facility] [place] [facility] [address] [id number] [place] [address]- 4302 Jul, [facility] [place] [facility] [address] [id number] [place] [address]- 3229 Jul, [facility] [place] [facility] [address] [id number] [place] [address]- 2129 Jul, [facility] [place] [facility] [address] [id number] [place] [address]- 8913 Jul, [facility] [place] [facility] [address] [id number] [place] [address]- 4066 Jul, [facility] [place] [facility] [address] [id number] [place] [address]- 8277 31 Jun, 2014 [facility] [place] [facility] [address] [id number] [place] [address]- 0610 31 Jun, 2014 [facility] [place] [facility] [address] [id number] [place] [address]- 6861 30 Jun, 2014 [facility] [place] [facility] [address] [id number] [place] [address]- 7170 30 Jun, 2014 [facility] [place] [facility] [address] [id number] [place] [address]- 4474 30 Jun, 2014 [facility] [place] [facility] [address] [id number] [place] [address]- 9876 30 Jun, 2014 [facility] [place] [facility] [address] [id number], [place] [address]- 8774 15 Jun, 2014 [facility] [place] [facility] [address] [id number] [place] [address]- 5033 Jun, [facility] [place] [facility] [address] [id number] [place] [address]- 7401 May, [facility] [place] [facility] [address] [id number] [place] [address]- 2320 May, [facility] [place] [facility] [address] [id number] [place] [address]- 2161 May, [facility] [place] [facility] [address] [id number] [place] [address]- 3256 May, [facility] [place] [facility] [address] [id number] [place] [address]- 0825 May, [facility] [place] [facility] [address] [id number] [place] [address]- 8850 May, [facility] [place] [facility] [address] [id number] [place] [address]- 0725 May, [facility] [place] [facility] [address] [id number] [place] [address]- 0142 May, [facility] [place] [facility] [address] [id number] [place] [address]- 4909 Apr, [facility] [place] [facility] [address] [id number] [place] [address]- 8314 Apr, [facility] [place] [facility] [address] [id number] [place] [address]- 0810 Apr, [facility] [place] [facility] [address] [id number] [place] [address]- 0659 Apr, [facility] [place] [facility] [address] [id number] [place] [address]- 3580 Mar, [facility] [place] [facility] [address] [id number] [place] [address]- 2023 Mar, [facility] [place] [facility] [address] [id number] [place] [address]- 2688 Mar, [facility] [place] [facility] [address] [id number] [place] [address]- 7547 Mar, [facility] [place] [facility] [address] [id number] [place] [address]- 7313 Mar, [facility] [place] [facility] [address] [id number] [place] [address]- 0009 Mar, [facility] [place] [facility] [address] [id number] [place] [address]- 3495 Jan, [facility] [place] [facility] [address] [id number] [place] [address]- 7527 Jan, [facility] [place] [facility] [address] [id number] [place] [address]- 7623 Jan, [facility] [place] [facility] [address] [id number] [place] [address]- 4241 Jan, [facility] [place] [facility] [address] [id number] [place] [address]- 4505 Jan, [facility] [place] [facility] [address] [id number] [place] [address]- 0745 Jan, [facility] [place] [facility] [address] [id number] [place] [address]- 9748 Jan, [facility] [place] [facility] [address] [id number] [place] [address]- 8086 Jan, [facility] [place] [facility] [address] [id number], [place] [address]- 2283 Jan, [facility] [place] [facility] [address] [id number] [place] [address]- 7369 Jan, [facility] [place] [facility] [address] [id number] [place] [address]- 5612 Jan, [facility] [place] [facility] [address] [id number] [place] [address]- 4327 Jan, [facility] [place] [facility] [address] [id number] [place] [address]- 1695 December, [facility] [address] [id number] [place] [address]- 1400 December, [facility] [address] [id number] [place] [address]- 2145 December, [facility] [address] [id number] [place] [address]- 7655 December, [facility] [address] [id number] [place] [address]- 4967 Dec, [facility] [address] [id number] [place] [address]- 7334 Dec, [facility] [address] [id number] [place] [address]- 5403 Dec, [facility] [address] [id number] [place] [address]- 2946 Dec, [facility] [address] [id number] [place] [address]- 7202 Dec, [facility] [address] [id number] [place] [address]- 8941 Dec, [facility] [address] [id number] [place] [address]- 1240 Dec, [facility] [place] [facility] [address] [id number] [place] [address]- 5074 Dec, [facility] [address] [id number] [place] [address]- 8985 Dec, [facility] [place] [facility] [address] [id number] [place] [address]- 0126 Dec, [facility] [place] [facility] [address] [id number] [place] [address]- 5795 Dec, [facility] [place] [facility] [address] [id number] [place] [address]- 1621 Dec, [facility] [place] [facility] [address] [id number] [place] [address]- 1136 Dec, [facility] [place] [facility] [address] [id number] [place] [address]- 9336 Dec, [facility] [place] [facility] [address] [id number] [place] [address]- 7738 Oct, [facility] [place] [facility] [address] [id number] [place] [address]- 1306 Oct, [facility] [place] [facility] [address] [id number] [place] [address]- 0484 Oct, [facility] [place] [facility] [address] [id number] [place] [address]- 1686 Oct, [facility] [place] [facility] [address] [id number] [place] [address]- 7827 Oct, [facility] [place] [facility] [address] [id number] [place] [address]- 5252 Oct, [facility] [place] [facility] [address] [id number] [place] [id number] Oct, [facility] [place] [facility] [address] [id number] [place] [address]- 5804 Oct, [facility] [place] [facility] [address] [id number] [place] [address]- 9390 Oct, [facility] [place] [facility] [address] [id number] [place] [address]- 4710 Oct, [facility] [place] [facility] [address] [id number] [place] [address]- 8891 Sep, [facility] [place] [facility] [address] [id number] [place] [address]- 6826 Sep, [facility] [place] [facility] [address] [id number] [place] [address]- 1306 Sep, [facility] [place] [facility] [address] [id number], [place] [address]- 1746 Sep, [facility] [id number], [place] [address]- 2387 Sep, [facility] [id number], [place] [address]- 3676 Sep, [facility] [address] [id number] 8910 Aug, [facility] [id number], [place] [address]- 5013 Aug, [facility] [id number], [place] [address]- 8948 Jul, [facility] [id number], [place] [address]- 1256 Jul, [facility] [id number], [place] [address]- 4645 Jul, [facility] [id number] 9154 Jul, [facility] [address] [id number], [place] [address]- 8414 Jul, IMMUNIZATIONS No Known Immunizations SOCIAL HISTORY Never Assessed REASON FOR VISIT Suboxone RX (06/25-07/22) PLAN OF CARE VITAL SIGNS MEDICATIONS Medication Instructions Dosage Frequency Start Date End Date Duration Status Suboxone 8-2 MG Sublingual Once a day 2 film under the tongue and allow to dissolve 24h Aug, Jul, 28 days Active RESULTS No Results PROCEDURES [...]
--- OUTSIDE RECORDS SUMMARY | 2018-08-30 20:43 | XMS REPORT ---
Author Author NOEMY MORGAN [facility] Address [address] 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 Active 02698012 Problem Chronic kidney disease, stage 3 N18.3 Active 363839326 Problem CHI I (cervical intraepithelial neoplasia I) N87.0 Active 934490866 Problem Mild episode of recurrent major depressive disorder F33.0 Active 976698598 Problem Addiction to drug F19.20 Active 524534107 Problem Essential hypertension I10 Active 67824557 Problem Opioid use disorder, severe, in sustained remission F11.21 Active 81013285 Problem Irritable bowel syndrome with constipation K58.1 Active [id number] ALLERGIES No Information ENCOUNTERS Encounter Location Date Diagnosis [facility] [address] [place] [address] Apr, [facility] [id number] [place] [address]3385- 6611 Mar, [facility] [address] [place] [address] Mar, Opioid use disorder, severe, in sustained remission F11.21 [facility] [id number] [address] Jan, Opioid use disorder, severe, in early remission F11.21 [facility] [id number] [address] December, Opioid use disorder, severe, in early remission F11.21 [facility] [address] [place] [address] December, Opioid use disorder, severe, in sustained remission F11.21 [facility] [id number] [place] [address] 59774- 1046 December, Opioid use disorder, severe, in sustained remission F11.21 and 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 [facility] [address] [address] December, Opioid use disorder, severe, in early remission F11.21 [facility] [address] [place] [address] Dec, Opioid use disorder, severe, in sustained remission F11.21 [facility] [id number] [place] [address] 95866- 2135 Dec, 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 ; Unprotected sexual intercourse Z72.51 ; Pain of left thumb M79.645 ; Mixed hyperlipidemia E78.2 ; Gastroparesis K31.84 ; Essential hypertension I10 and Irritable bowel syndrome with constipation K58.1 [place] [address] [address] Dec, Opioid use disorder, severe, in early remission F11.21 [place] [id number] [place] [address] 28045- 6331 Oct, [facility] [address] [address] 1377 Oct, Opioid use disorder, severe, in early remission F11.21 [facility] [id number] [place] [address] 82421- 7136 Oct, [facility] [address] 9[address]60- 2799 05 Oct, 2017 Opioid use disorder, severe, in early remission F11.21 [facility] [address] 94229- 1755 Oct, [facility] [id number] [place] [address] 18673- 0626 Oct, [facility] [address] [place] [address] Oct, Opioid use disorder, severe, in sustained remission F11.21 [facility] [id number] [place] [address] 50480- 9537 Sep, [facility] [id number] [place] [address] 84686- 4348 Sep, [facility] [id number] [place] [address] 76239- 7578 Sep, Opioid use disorder, severe, in early remission F11.21 [facility] [id number] [place] [address] 79028- 9170 Aug, Opioid use disorder, severe, in early remission F11.21 [facility] [id number] [place] [address] 85743- 5643 Jul, [facility] [id number] [place] [address] 20904- 5772 Jul, Chronic kidney disease, stage 3 N18.3 ; Dysthymia F34.1 and Opioid use disorder, severe, in sustained remission F11.21 [facility] [address] [place] [address] Jul, Opioid use disorder, severe, in sustained remission F11.21 [facility] [id number] [place] [address] 23086- 9371 Jul, Long-term use of high-risk medication Z79.899 and Chronic kidney disease, stage 3 N18.3 [facility] [id number] [place] [address] 40628- 8915 Jul, Opioid use disorder, severe, in early remission F11.21 [facility] [id number] [place] [address] 86009- 4126 Jul, [facility] [id number] [place] [address] 81930- 6803 Jun, [facility] [id number] [place] [address] 75645- 3245 Jun, [facility] [id number] [place] [address] 92864- 2888 Jun, Opioid use disorder, moderate, dependence F11.20 and Opioid use disorder, severe, in early remission F11.21 [facility] [id number] [place] [address] 47467- 7921 Jun, [place] [address] 52[address]- 1274 Jun, Long-term use of high-risk medication Z79.899 [place] [id number] [place] [address] 83608- 8044 Jun, CHI I (cervical intraepithelial neoplasia I) N87.0 [place] [id number] [place] [address] 50838- 8913 May, Opioid use disorder, severe, in early remission F11.21 [place] [id number] [place] [address] 73852- 1807 18 May, 2017 Chronic kidney disease, stage 3 N18.3 [place] [id number] [place] [address] 37165- 8337 14 May, 2017 Chronic kidney disease, stage 3 N18.3 [facility] [address] [place] [address] 05 May, 2017 Opioid use disorder, severe, in sustained remission F11.21 [place] [id number] [place] [address] 83010- 0238 Apr, LGSIL on Pap smear of cervix R87.612 [facility] [address] [place] [address] Apr, [facility] [id number] [place] [address] 25899- 2052 Apr, Opioid use disorder, severe, in early remission F11.21 [facility] [id number] [place] [address] 90297- 4836 Apr, Opioid use disorder, severe, in early remission F11.21 [facility] [id number] [place] [address] 74117- 8058 Apr, Opioid use disorder, severe, in early remission F11.21 [facility] [id number] [place] [address] 31441- 4139 18 Apr, 2017 Opioid use disorder, severe, in early remission F11.21 [facility] [id number] [place] [address] 65420- 3628 14 Apr, 2017 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 [facility] [id number] [place] [address] 07376- 3855 Apr, Opioid use disorder, severe, in early remission F11.21 [facility] [address] [place] [address] Apr, Opioid use disorder, severe, in sustained remission F11.21 [facility] [id number] [place] [address] 83754- 0313 Apr, Opioid use disorder, severe, in early remission F11.21 [facility] [id number] [place] [address] 94047- 5961 Apr, Mild episode of recurrent major depressive disorder F33.0 and Right acute serous otitis media, recurrence not specified H65.01 [facility] [address] [place] [address] 33974- 8432 Mar, [facility] [id number] [place] [address] 31073- 9235 Mar, Opioid use disorder, severe, in early remission F11.21 [facility] [id number] [place] [address] 11989- 7136 Mar, [facility] [address] [place] [address] Mar, Opioid use disorder, severe, in sustained remission F11.21 [facility] [address] [place] [address] Mar, Opioid use disorder, severe, in sustained remission F11.21 [facility] [address] [address] 79[address] Mar, Opioid use disorder, severe, in early remission F11.21 [facility] [id number] [place] [address] 63845- 4680 Jan, Opioid use disorder, severe, in early remission F11.21 [facility] [address] [place] [address] Jan, Opioid use disorder, severe, in sustained remission F11.21 [facility] [place] [address] Jan, Opioid use disorder, severe, in sustained remission F11.21 [place] [id number] [place] [address] 92484- 0610 Jan, Opioid use disorder, severe, in early remission F11.21 [facility] [address] [place] [address] Jan, Opioid use disorder, severe, in sustained remission F11.21 [facility] [address] [address] 2717 December, Opioid use disorder, severe, in early remission F11.21 [facility] [address] [place] [address] December, Opioid use disorder, severe, in sustained remission F11.21 [address] [place] [address] 06847- 8713 December, Routine gynecological examination Z01.419 and Chronic kidney disease, stage 3 N18.3 [facility] [address] [address] 3967 December, Chronic kidney disease, stage 3 N18.3 ; 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 ; Gastroparesis K31.84 ; Essential hypertension I10 and Irritable bowel syndrome with constipation K58.1 [facility] [address] [place] [address] December, Opioid use disorder, severe, in sustained remission F11.21 [facility] [id number] [place] [address] 82525- 8425 December, Opioid use disorder, severe, in early remission F11.21 [facility] [address] [place] [address] December, Opioid use disorder, severe, in sustained remission F11.21 [facility] [id number] [place] [address] 99391- 6828 December, Encounter for therapeutic drug level monitoring Z51.81 [facility] [address] [place] [address] December, Opioid use disorder, severe, in sustained remission F11.21 [facility] [address] [place] [address] Dec, Opioid use disorder, severe, in sustained remission F11.21 [facility] [id number] [place] [address] 27971- 1313 Dec, Opioid use disorder, severe, in early remission F11.21 [facility] [id number] [place] [address] 51297- 6629 Dec, [facility] [address] [place] [address] Dec, Opioid use disorder, severe, in sustained remission F11.21 [facility] [id number] [place] [address] 49065- 5927 Dec, Opioid use disorder, severe, in early remission F11.21 [facility] [address] [place] [address] Dec, Opioid use disorder, severe, in sustained remission F11.21 [facility] [id number] [place] [address] 07759- 0546 Dec, 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21 [facility] [id number] [place] [address] 50922- 3346 15 Oct, 2016 [facility] [address] [place] [address] 15 Oct, 2016 Opioid use disorder, severe, in sustained remission F11.21 [facility] [id number] [place] [address] 56460- 1045 15 Oct, 2016 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 [place] [id number] [place] [address] 39718- 9600 14 Oct, 2016 Routine gynecological examination Z01.419 [place] [id number] [place] [address] 66087- 2926 07 Oct, 2016 Opioid use disorder, severe, in early remission F11.21 [facility] [id number] [place] [address] 25301- 8956 06 Oct, 2016 Opioid use disorder, severe, in early remission F11.21 [facility] [id number] [place] [address] 53319- 1676 06 Oct, 2016 Opioid use disorder, severe, in early remission F11.21 [facility] [address] [place] [address] 02 Oct, 2016 Opioid use disorder, severe, in sustained remission F11.21 [facility] [id number] [place] [address] 78520- 0467 Oct, Opioid use disorder, severe, in early remission F11.21 [facility] [id number] [place] [address] 07201- 0997 23 Oct, 2016 Opioid use disorder, severe, in early remission F11.21 [facility] [address] [place] [address] 22 Oct, 2016 Opioid use disorder, severe, in sustained remission F11.21 [facility] [id number] [place] [address] 58486- 7823 Oct, Opioid use disorder, severe, in sustained remission F11.21 ; Encounter for therapeutic drug level monitoring Z51.81 and Other penitentiary ( 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 Z79.899 [facility] [address] 98299- 4502 16 Oct, 2016 [facility] [address] [place] [address] 14 Oct, 2016 Opioid use disorder, severe, in early remission F11.21 [facility] [address] [place] [address] 10 Oct, 2016 Opioid use disorder, severe, in early remission F11.21 [facility] [id number] [place] [address] 81759- 3734 09 Oct, 2016 Opioid use disorder, severe, in early remission F11.21 [facility] [id number] [place] [address] 91417- 9933 08 Oct, 2016 [facility] [id number] [place] [address] 70181- 2320 07 Oct, 2016 [facility] [id number] [place] [address] 52278- 7209 Oct, [facility] [address] [place] [address] Oct, Opioid use disorder, severe, in early remission F11.21 [facility] [id number] [place] [address] 11289- 9647 Sep, Opioid use disorder, severe, in early remission F11.21 [facility] [address] [place] [address] Sep, Opioid use disorder, severe, in early remission F11.21 [facility] [id number] [place] [address] 05073- 6278 Sep, Opioid use disorder, severe, in early remission F11.21 ; 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 and Encounter for therapeutic drug level monitoring Z51.81 [facility] [address] [place] [address] 11857- 3597 Sep, [facility] [address] 74984- 6343 Sep, [facility] [address] [place] [address] 32910- 1892 Sep, Opioid use disorder, severe, 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 ; 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 ; Chronic kidney disease, stage 3 N18.3 ; Essential hypertension I10 and Irritable bowel syndrome with constipation K58.1 [facility] [address] [place] [address] 17 Sep, 2016 Opioid use disorder, severe, 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 [facility] [address] [place] [address] 12 Sep, 2016 Opioid use disorder, severe, in early remission F11.21 [facility] [address] [place] [address] 29165- 7294 10 Sep, 2016 Opioid use disorder, moderate, dependence F11.20 [facility] [id number] [place] [address] 86650- 5713 05 Sep, 2016 Opioid use disorder, moderate, dependence F11.20 [facility] [address] [place] [address] 05 Sep, 2016 Opioid use disorder, severe, 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 [facility] [address] [place] [address] 38700- 7143 Sep, Opioid use disorder, severe, in early remission F11.21 [facility] [address] [place] [address] Aug, Opioid use disorder, severe, in early remission F11.21 [facility] [id number] [place] [address] 60786- 4580 Aug, Opioid use disorder, moderate, dependence F11.20 [facility] [id number] [place] [address] 89186 -3635 Aug, Bug bite without infection, initial encounter W57.XXXA [facility] [id number] [place] [address] 77989- 8751 Aug, Opioid use disorder, moderate, dependence F11.20 [facility] [address] [place] [address] Aug, [facility] [id number] [place] [address] 36458- 9560 Aug, Opioid use disorder, severe, in early remission F11.21 ; Other penitentiary (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 Z79.899 ; Encounter for therapeutic drug level monitoring Z51.81 and 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 [facility] [address] [place] [address] Aug, [facility] [id number] [place] [address] 83759- 9878 Aug, Opioid use disorder, moderate, dependence F11.20 ; Other penitentiary (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 Z79.899 and Encounter for therapeutic drug level monitoring Z51.81 [facility] [address] [place] [address] 70244- 2255 Aug, [facility] [id number] [place] [address] 85163- 4595 Aug, Non-intractable vomiting with nausea, unspecified vomiting type R11.2 [facility] [id number] [place] [address] 03475- 6584 Aug, Opioid use disorder, moderate, dependence F11.20 and Non- intractable vomiting with nausea, unspecified vomiting type R11.2 [facility] [id number] [place] [address] 90172- 5773 08 Aug, 2016 [facility] [id number] [place] [address] 76148- 8435 Aug, Opioid use disorder, moderate, dependence F11.20 [facility] [id number] [place] [address] 09658- 4259 Aug, [facility] [address] 84600- 5349 Jul, 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 and Opioid use disorder, moderate, dependence F11.20 [facility] [address] [place] [address] Jul, [facility] [address] 82162- 4832 Jul, [facility] [address] 66429- 1282 Jul, [facility] [address] 51090- 6469 Jul, Addiction to drug F19.20 and Chronic kidney disease, stage 3 N18.3 [facility] [address] [place] [address] Jul, Counseling on substance use and abuse Z71.89 [facility] [address] 29826- 4535 Jul, Chronic kidney disease, stage 3 N18.3 [facility] [id number] [place] [address] 17232- 0944 Jul, 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 ; Diarrhea, unspecified type R19.7 and Essential hypertension I10 [facility] [address] 29281- 7830 Jul, [facility] [id number] [place] [address] 63816- 5492 Jun, [facility] [address] [place] [address]- 3577 Jun, [facility] [id number] [place] [address] 24973- 0288 Apr, 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 [facility] [id number] [place] [address] 45701- 8346 Apr, Sore throat and laryngitis J06.0 and Non-intractable vomiting with nausea, unspecified vomiting type R11.2 [facility] [id number] [place] [address] 48599- 9927 Apr, [facility] [id number] [place] [address] 31772- 7734 Mar, [facility] [id number] [place] [address] 47766- 1980 Jan, [facility] [id number] [place] [address] 62498- 6434 Jan, [facility] [id number] [place] [address] 33620- 0006 Jan, [facility] [id number] [place] [address] 31963- 4452 December, 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 ; Gastroparesis K31.84 ; Mixed hyperlipidemia E78.2 ; Chronic kidney disease, stage 3 N18.3 ; Dysthymia F34.1 and Acute bilateral low back pain without sciatica M54.5 [facility] [address] [place] [address] 57426- 4712 December, [facility] [id number] [place] [address] 09652- 0170 December, [facility] [id number] [place] [address] [phone] Aug, Depression F32.9 and Gastroparesis K31.84 [facility] [id number] [place] [address] [phone] Aug, Gastroparesis K31.84 [facility] [id number] [place] [address] [id number]- [phone] Jul, Recurrent UTI N39.0 ; Chronic kidney disease, stage 3 N18.3 and 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 [facility] [id number] [place] [address] [phone] Jul, [facility] [address] [id number] Jul, Dental examination Z01.20 and Dental caries K02.9 [place] [address] [phone] Jul, [facility] [address] [address] -0523 Jul, Dysuria R30.0 ; Urinary tract infection N39.0 and Nausea R11.0 [facility] [id number] [place] [address] 87510- 5463 Jun, Dysuria R30.0 [facility] [address] [address]- 3609 Jun, Dysuria R30.0 [facility] [address] 11962- 0724 Jun, Dysuria R30.0 [facility] [address] 80010- 0784 Jun, [facility] [id number] [place] [address] 79403- 5656 Jun, Acute cystitis with hematuria N30.01 [facility] [id number] [place] [address] 91190- 6569 May, [facility] [id number] [place] [address] 94462- 9018 Apr, Diabetes mellitus without mention of complication, type I [ juvenile type], not stated as uncontrolled 250.01 ; Gastroparesis due to DM 250.60 ; Contraception management V25.9 and Renal insufficiency 593.9 [id number] [place] [address] 29725- 8542 Apr, [place] [id number] [place] [address] 25742- 1181 Apr, [address] [address]- [address] Mar, [id number] [place] [address] 44338- 6071 Mar, Hyperlipidemia 272.4 and Hypertensive heart and chronic kidney disease, benign, without heart failure and with chronic kidney disease stage I through stage IV, or unspecified 404.10 [id number] [place] [address] 06300- 8055 Mar, Hyperlipidemia 272.4 ; Hyponatremia 276.1 ; 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 ; Hypertensive heart and chronic kidney disease, benign, without heart failure and with chronic kidney disease stage I through stage IV, or unspecified 404.10 ; Proteinuria 791.0 and Chronic kidney disease (CKD), stage III (moderate) 585.3 [id number] [place] [address] 67121- 4419 Mar, [id number] [place] [address] 61284- 4039 Mar, Elevated blood sugar level 790.29 [id number] [place] [address] 48647- 4991 Mar, Low grade squamous intraepithelial lesion (LGSIL) on cervical Pap smear 795.03 [id number] [place] [address] 42337- 9836 Mar, Amenorrhea 626.0 [id number] [place] [address] 88644- 1629 Jan, Amenorrhea 626.0 ; Routine gynecological examination V72.31 and Screen for STD (sexually transmitted disease) V74.5 [facility] [address] [facility] [id number] [address] 1249 11 Jan, 2015 Amenorrhea 626.0 [facility] [address] [facility] [id number], [place] [address]- 2996 08 Jan, 2015 Routine gynecological examination V72.31 ; Screen for STD ( sexually transmitted disease) V74.5 ; Pap test, as part of routine gynecological examination V76.2 ; Breast cancer screening V76.10 and Amenorrhea 626.0 [facility] [address] [facility] [id number], [place] [address] 0274 December, [facility] [address] [address]- 3695 Dec, [facility] [address] [address]- 2625 Dec, [facility] [address] [address]- 0061 Oct, [facility] [address] [address]- 2882 Oct, [facility] [address] [address]- 0223 Oct, [facility] [address] [address]- 3647 Oct, [facility] [address] [address]- 4984 Oct, [facility] [address] [address] 2003 Oct, [facility] [address] [id number] [address] 2546 Oct, [facility] [address] [id number] [address]- 2546 Oct, [facility] [place] [facility] [address] [id number] [place] [address]- 5049 Oct, [facility] [place] [facility] [address] [id number] [place] [address]- 3743 Oct, [facility] [place] [facility] [address] [id number] [place] [address]- 3816 Oct, [facility] [place] [facility] [address] [id number] [place] [address]- 1192 Sep, [facility] [place] [facility] [address] [id number] [place] [address]- 7661 Sep, [facility] [place] [facility] [address] [id number] [place] [address]- 9191 Sep, [facility] [place] [facility] [address] [id number] [place] [address]- 3429 16 Sep, 2014 [facility] [place] [facility] [address] [id number] [place] [address]- 4799 Sep, [facility] [place] [facility] [address] [id number] [place] [address]- 1388 16 Sep, 2014 [facility] [place] [facility] [address] [id number] [place] [address]- 6958 Sep, [facility] [place] [facility] [address] [id number] [place] [address]- 0374 15 Sep, 2014 [facility] [place] [facility] [address] [id number] [place] [address]- 6536 Sep, [facility] [place] [facility] [address] [id number] [place] [address]- 1196 15 Sep, 2014 [facility] [place] [facility] [address] [id number] [place] [address]- 1083 Sep, [facility] [place] [facility] [address] [id number] [place] [address]- 9355 13 Sep, 2014 [facility] [place] [facility] [address] [id number] [place] [address]- 8306 Sep, [facility] [place] [facility] [address] [id number] [place] [address]- 7281 Sep, [facility] [place] [facility] [address] [id number] [place] [address]- 1068 Sep, [facility] [place] [facility] [address] [id number] [place] [address]- 4699 Sep, [facility] [place] [facility] [address] [id number] [place] [address]- 3296 Sep, [facility] [place] [facility] [address] [id number] [place] [address]- 8330 Sep, [facility] [place] [facility] [address] [id number] [place] [address]- 7009 Sep, [facility] [place] [facility] [address] [id number] [place] [address]- 9199 Sep, [facility] [place] [facility] [address] [id number] [place] [address]- 9662 Aug, [facility] [place] [facility] [address] [id number] [place] [address]- 1078 Aug, [facility] [place] [facility] [address] [id number] [place] [address]- 3730 Aug, [facility] [place] [facility] [address] [id number], [place] [address]- 8165 Aug, [facility] [place] [facility] [address] [id number], [place] [address]- 7771 Aug, [facility] [place] [facility] [address] [id number] [place] [address]- 5389 Aug, [facility] [place] [facility] [address] [id number] [place] [address]- 9635 Aug, [facility] [place] [facility] [address] [id number] [place] [address]- 7191 Aug, [facility] [place] [facility] [address] [id number] [place] [address]- 9342 Aug, [facility] [place] [facility] [address] [id number] [place] [address]- 6757 Aug, [facility] [place] [facility] [address] [id number] [place] [address]- 7627 Aug, [facility] [place] [facility] [address] [id number] [place] 5827 Aug, [facility] [place] [facility] [address] [id number] [place] [address]- 8920 Jul, [facility] [place] [facility] [address] [id number] [place] [address]- 8059 Jul, [facility] [place] [facility] [address] [id number] [place] [address]- 3718 Jul, [facility] [place] [facility] [address] [id number] [place] [address]- 1601 Jul, [facility] [place] [facility] [address] [id number] [place] [address]- 2159 Jul, [facility] [place] [facility] [address] [id number] [place] [address]- 1988 Jul, [facility] [place] [facility] [address] [facility] [id number] [place] [address]- 8280 Jul, [facility] [place] [facility] [address] [id number] [place] [address]- 8427 Jul, [facility] [place] [facility] [address] [id number] [place] [address]- 3988 Jul, [facility] [place] [facility] [address] [id number] [place] [address]- 7850 Jul, [facility] [place] [facility] [address] [id number] [place] [address]- 6661 Jun, [facility] [place] [facility] [address] [id number] [place] [address]- 7723 Jun, [facility] [place] [facility] [address] [id number] [place] [address]- 2113 30 Jun, 2014 [facility] [place] [facility] [address] [id number] [place] [address]- 2883 30 Jun, 2014 [facility] [place] [facility] [address] [id number] [place] [address]- 9856 30 Jun, 2014 [facility] [place] [facility] [address] [id number] [place] [address]- 1246 30 Jun, 2014 [facility] [place] [facility] [address] [id number] [place] [address]- 2834 15 Jun, 2014 [facility] [place] [facility] [address] [id number] [place] [address]- 8681 15 Jun, 2014 [facility] [place] [facility] [address] [id number] [place] [address]- 2028 22 May, 2014 [facility] [place] [facility] [address] [id number] [place] [address]- 1588 22 May, 2013 [facility] [place] [facility] [address] [id number] [place] [address]- 4138 18 May, 2014 [facility] [place] [facility] [address] [id number] [place] [address]- 3474 18 May, 2013 [facility] [place] [facility] [address] [id number] [place] [address]- 7035 09 May, 2014 [facility] [place] [facility] [address] [id number], [place] [address]- 0251 08 May, 2013 [facility] [place] [facility] [address] [id number] [place] [address]- 3000 02 May, 2013 [facility] [place] [facility] [address] [id number] [place] [address]- 8494 02 May, 2013 [facility] [place] [facility] [address] [id number] [place] [address]- 9859 28 Apr, 2014 [facility] [place] [facility] [address] [id number], [place] [address]- 4325 Apr, [facility] [place] [facility] [address] [id number] [place] [address]- 8080 Apr, [facility] [place] [facility] [address] [id number] [place] [address]- 0458 Apr, [facility] [place] [facility] [address] [id number] [place] [address]- 8367 Mar, [facility] [place] [facility] [address] [id number] [place] [address]- 2890 Mar, [facility] [place] [facility] [address] [id number] [place] [address]- 0942 Mar, [facility] [place] [facility] [address] [id number] [place] [address]- 9449 Mar, [facility] [place] [facility] [address] [id number] [place] [address]- 1341 Mar, [facility] [place] [facility] [address] [id number] [place] [address]- 6894 Mar, [facility] [place] [facility] [address] [id number] [place] [address]- 0962 Jan, [facility] [place] [facility] [address] [id number] [place] [address]- 2368 Jan, [facility] [place] [facility] [address] [id number] [place] [address]- 4800 Jan, [facility] [place] [facility] [address] [id number] [place] [address]- 4539 Jan, [facility] [place] [facility] [address] [id number] [place] [address]- 9647 Jan, [facility] [place] [facility] [address] [id number] [place] [address]- 0769 Jan, [facility] [place] [facility] [address] [id number] [place] [address]- 6586 Jan, [facility] [place] [facility] [address] [id number] [place] [address]- 9301 Jan, [facility] [place] [facility] [address] [id number] [place] [address]- 4000 Jan, [facility] [place] [facility] [address] [id number] [place] [address]- 3515 Jan, [facility] [place] [facility] [address] [id number] [place] [address]- 4516 Jan, [facility] [place] [facility] [address] [id number] [place] [address]- 7941 Jan, [facility] [place] [facility] [address] [id number] [place] [address]- 8130 December, [facility] [place] [facility] [address] [id number] [place] [address]- 4461 December, [facility] [place] [facility] [address] [id number] [place] [address]- 6882 December, [facility] [place] [facility] [address] [id number] [place] [address]- 5943 December, [facility] [place] [facility] [address] [id number] [place] [address]- 3458 Dec, [facility] [place] [facility] [address] [id number] [place] [address]- 1616 Dec, [facility] [place] [facility] [address] [id number] [place] [address]- 7337 Dec, [facility] [place] [facility] [address] [id number] [place] [address]- 6572 Dec, [facility] [place] [facility] [address] [id number] [place] [address]- 4926 Dec, [facility] [place] [facility] [address] [id number] [place] [address]- 8655 Dec, [facility] [place] [facility] [address] [id number] [place] [address]- 4886 Dec, [facility] [place] [facility] [address] [id number] [place] [address]- 1325 Dec, [facility] [place] [facility] [address] [id number] [place] [address]- 2432 Dec, [facility] [place] [facility] [address] [id number] [place] [address]- 0964 Dec, [facility] [place] [facility] [address] [id number] [place] [address]- 9759 Dec, [facility] [place] [facility] [address] [id number] [place] [address]- 9186 Dec, [facility] [place] [facility] [address] [id number] [place] [address]- 8910 Dec, [facility] [place] [facility] [address] [id number] [place] [address]- 9348 Dec, [facility] [place] [facility] [address] [id number] [place] [address]- 1295 Oct, [facility] [place] [facility] [address] [id number] [place] [address]- 8479 Oct, [facility] [place] [facility] [address] [id number], [place] [address]- 6200 Oct, [facility] [place] [facility] [address] [id number], [place] [address]- 4554 Oct, [facility] [place] [facility] [address] [id number], [place] [address]- 3024 Oct, [facility] [place] [facility] [address] [id number] [place] [address]- 0192 Oct, [facility] [place] [facility] [address] [id number] [address] Oct, [facility] [place] [facility] [address] [id number], [place] [address]- 9274 Oct, [facility] [place] [facility] [address] [id number], [place] [address]- 2978 Oct, [facility] [address] [id number] [address]- 5266 Oct, [facility] [address] 0971 Sep, [facility] [address] 9741 Sep, [facility] [address], [place] [address]- 4956 Sep, [facility] [address], [place] [address]- 3952 Sep, [facility] [address], [place] [address]- 4100 Sep, [facility] [address], [place] [address]- 6368 Sep, [facility] [address], [place] [address]- 9261 Aug, [facility] [address], [place] [address]- 4918 Aug, [facility] [address], [place] [address]- 3197 Jul, [facility] [address], [place] [address]- 8514 Jul, [facility] [address] [id number], [place] [address]- 8566 Jul, [facility] [address] 5493 Jul, [facility] [address], [place] [address]- 1162 Jul, IMMUNIZATIONS No Known Immunizations SOCIAL HISTORY Never Assessed REASON FOR VISIT Suboxone RX (11/07-12/07) PLAN OF CARE VITAL SIGNS MEDICATIONS Medication [...]
--- OUTSIDE RECORDS SUMMARY | 2018-08-30 20:44 | XMS REPORT ---
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 Active 52304519 Problem Chronic kidney disease, stage 3 N18.3 Active 392799183 Problem CHI I (cervical intraepithelial neoplasia I) N87.0 Active 381611401 Problem Mild episode of recurrent major depressive disorder F33.0 Active 921883346 Problem Addiction to drug F19.20 Active 755218670 Problem Essential hypertension I10 Active 81424145 Problem Opioid use disorder, severe, in sustained remission F11.21 Active 73021654 Problem Irritable bowel syndrome with constipation K58.1 Active 495136690 ALLERGIES Substance Reaction Event Type Date Status Penicillin V Potassium rash Drug Allergy Apr, Active Cipro nausea and vomiting Drug Allergy Apr, Active Bactrim DS rash Drug Allergy Apr, Active ENCOUNTERS Encounter Location Date Diagnosis [facility] [address] [facility] [id number] [address] December, [facility] [address] [place] [address] Dec, [facility] [address] [id number] [address] Dec, 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 ; Unprotected sexual intercourse Z72.51 ; Pain of left thumb M79.645 ; Mixed hyperlipidemia E78.2 ; Gastroparesis K31.84 ; Essential hypertension I10 and Irritable bowel syndrome with constipation K58.1 [facility] [id number] [place] [address] 60225- 4116 Dec, Opioid use disorder, severe, in early remission F11.21 [facility] [id number] [place] [address] 61765- 7336 Oct, [facility] [address] [address] 2544 Oct, Opioid use disorder, severe, in early remission F11.21 [facility] [id number] [place] [address] 53805- 5806 Oct, [facility] [id number] [place] [address] 47110- 7118 Oct, Opioid use disorder, severe, in 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 [facility] [id number] [place] [address] 59019- 2864 Oct, [facility] [id number] [place] [address] 44871- 3672 Oct, [facility] [address] [place] [address] Oct, Opioid use disorder, severe, in sustained remission F11.21 [facility] [id number] [place] [address] 78936- 0764 Sep, [facility] [id number] [place] [address] 43150- 2542 Sep, [facility] [id number] [place] [address] 23642- 1100 Sep, Opioid use disorder, severe, 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 [facility] [id number] [place] [address] 282037- 7336 Aug, Opioid use disorder, severe, 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 [facility] [id number] [place] [address] 95527- 6078 Jul, [facility] [id number] [place] [address] 88668- 2545 Jul, Chronic kidney disease, stage 3 N18.3 ; Dysthymia F34.1 and Opioid use disorder, severe, in sustained remission F11.21 [facility] [address] [place] [address] Jul, Opioid use disorder, severe, in sustained remission F11.21 [facility] [id number] [place] [address] 35552- 1201 Jul, Long-term use of high-risk medication Z79.899 and Chronic kidney disease, stage 3 N18.3 [place] [id number] [place] [address] 02017- 8219 Jul, Opioid use disorder, severe, 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 [facility] [id number] [place] [address] 82121- 1499 Jul, [facility] [id number] [place] [address] 86602- 5452 Jun, [facility] [id number] [place] [address] 59874- 7034 Jun, [facility] [id number] [place] [address] 69651- 0975 Jun, Opioid use disorder, moderate, dependence F11.20 and Opioid use disorder, severe, 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 [facility] [id number] [place] [address] 17515- 7099 Jun, [facility] [id number] [place] [address] 80283- 2855 Jun, Long-term use of high-risk medication Z79.899 [facility] [id number] [place] [address] 67310- 3269 Jun, CHI I (cervical intraepithelial neoplasia I) N87.0 [place] [address] 40972- 0042 May, Opioid use disorder, severe, 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 [facility] [id number] [place] [address] 24679- 4195 18 May, 2017 Chronic kidney disease, stage 3 N18.3 [facility] [id number] [place] [address] 77703- 9406 14 May, 2017 Chronic kidney disease, stage 3 N18.3 [facility] [address] [place] [address] 05 May, 2017 Opioid use disorder, severe, in sustained remission F11.21 [facility] [id number] [place] [address] 19244- 8186 Apr, LGSIL on Pap smear of cervix R87.612 [facility] [address] [place] [address] Apr, [facility] [id number] [place] [address] 90484- 2304 Apr, Opioid use disorder, severe, 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 [facility] [id number] [place] [address] 70182- 9816 Apr, Opioid use disorder, severe, 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 [facility] [id number] [place] [address] 46898- 6942 Apr, Opioid use disorder, severe, 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 [facility] [id number] [place] [address] 34471- 4397 Apr, Opioid use disorder, severe, 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 [facility] [id number] [place] [address] 34723- 0083 Apr, 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 [facility] [id number] [place] [address] 94314- 3784 Apr, Opioid use disorder, severe, 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 [facility] [address] [place] [address] Apr, Opioid use disorder, severe, in sustained remission F11.21 [facility] [id number] [place] [address] 04639- 6626 Apr, Opioid use disorder, severe, 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 [facility] [id number] [place] [address] 14435- 4570 Apr, Mild episode of recurrent major depressive disorder F33.0 and Right acute serous otitis media, recurrence not specified H65.01 [facility] [id number] [place] [address] 01412- 8901 Mar, [facility] [id number] [place] [address] 23821- 6068 Mar, Opioid use disorder, severe, 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 [facility] [id number] [place] [address] 99217- 4917 Mar, [facility] [address] [place] [address] Mar, Opioid use disorder, severe, in sustained remission F11.21 [facility] [address] [place] [address] Mar, Opioid use disorder, severe, in sustained remission F11.21 [facility] [id number] [place] [address] 79402- 5516 Mar, Opioid use disorder, severe, in early remission F11.21 [facility] [id number] [place] [address] 69079- 0941 Jan, Opioid use disorder, severe, in early remission F11.21 [facility] [address] [place] [address] Jan, Opioid use disorder, severe, in sustained remission F11.21 [facility] [address] [place] [address] Jan, Opioid use disorder, severe, in sustained remission F11.21 [facility] [id number] [place] [address] 14170- 1409 Jan, Opioid use disorder, severe, in early remission F11.21 [facility] [address] [place] [address] Jan, Opioid use disorder, severe, in sustained remission F11.21 [place] [id number] [place] [address] 36753- 6202 December, Opioid use disorder, severe, in early remission F11.21 [facility] [address] [place] [address] December, Opioid use disorder, severe, in sustained remission F11.21 [place] [id number] [place] [address] 81372- 2756 December, Routine gynecological examination Z01.419 and Chronic kidney disease, stage 3 N18.3 [place] [id number] [place] [address] 15518- 6792 December, Chronic kidney disease, stage 3 N18.3 ; 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 ; Gastroparesis K31.84 ; Essential hypertension I10 and Irritable bowel syndrome with constipation K58.1 [facility] [address] [place] [address] December, Opioid use disorder, severe, in sustained remission F11.21 [place] [id number] [place] [address] 54674- 3299 December, Opioid use disorder, severe, in early remission F11.21 [facility] [address] [place] [address] December, Opioid use disorder, severe, in sustained remission F11.21 [place] [id number] [place] [address] 04734- 7516 December, Encounter for therapeutic drug level monitoring Z51.81 [facility] [address] [place] [address] December, Opioid use disorder, severe, in sustained remission F11.21 [facility] [address] [place] [address] Dec, Opioid use disorder, severe, in sustained remission F11.[address] [place] [address]- 1279 Dec, Opioid use disorder, severe, 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 [facility] [id number] [place] [address] 74748- 2363 Dec, [facility] [address] [place] [address] Dec, Opioid use disorder, severe, in sustained remission F11.21 [facility] [id number] [place] [address] 76392- 2331 Dec, Opioid use disorder, severe, 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 [facility] [address] [place] [address] Dec, Opioid use disorder, severe, in sustained remission F11.21 [facility] [id number] [place] [address] 44289- 1052 Dec, 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 [facility] [address] [place] [id number] [place] [address] 26670- 2604 Dec, Opioid use disorder, severe, in sustained remission F11.21 ; Encounter for therapeutic drug level monitoring Z51.81 and Other detention ( 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 Z79.899 [facility] [address] [place] [address] Oct, Opioid use disorder, severe, in sustained remission F11.21 [facility] [id number] [place] [address] 53262- 0377 Oct, Opioid use disorder, severe, 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 [facility] [id number] [place] [address] 13434- 4736 Oct, [facility] [address] [place] [address] Oct, Opioid use disorder, severe, in sustained remission F11.21 [facility] [id number] [place] [address] 05507- 6912 Oct, 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 [facility] [address] [place], [place] [address] [place] [address]- 3984 14 Oct, 2016 Routine gynecological examination Z01.419 [facility] [address] 15564- 1688 07 Oct, 2016 Opioid use disorder, severe, 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 [facility] [id number] [place] [address] 18119- 6869 06 Oct, 2016 Opioid use disorder, severe, 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 [facility] [address] 22510- 7422 06 Oct, 2016 Opioid use disorder, severe, 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 [facility] [address] [place] [address] Oct, Opioid use disorder, severe, in sustained remission F11.21 [place] [id number] [place] [address] 19244- 3411 24 Oct, 2016 Opioid use disorder, severe, in early remission F11.21 [facility] [address] 93085- 8221 23 Oct, 2016 Opioid use disorder, severe, in early remission F11.21 [facility] [address] [place] [address] 22 Oct, 2016 Opioid use disorder, severe, in sustained remission F11.21 [place] [id number] [place] [address] 67034- 8922 20 Oct, 2016 Opioid use disorder, severe, in sustained remission F11.21 ; Encounter for therapeutic drug level monitoring Z51.81 and Other detention ( 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 Z79.899 [facility] [address] 54848- 0925 16 Oct, 2016 [facility] [address] [place] [address] 14 Oct, 2016 Opioid use disorder, severe, 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 [facility] [address] [place] [address] 10 Oct, 2016 Opioid use disorder, severe, in early remission F11.21 [facility] [id number] [place] [address] 06307- 8684 Oct, Opioid use disorder, severe, in early remission F11.21 [facility] [id number] [place] [address] 58572- 6094 Oct, [facility] [id number] [place] [address] 59135- 8637 Oct, [facility] [id number] [place] [address] 41841- 5717 Oct, [facility] [address] [place] [address] Oct, Opioid use disorder, severe, in early remission F11.21 [facility] [id number] [place] [address] 81331- 3357 Sep, Opioid use disorder, severe, in early remission F11.21 [facility] [address] [place] [address] Sep, Opioid use disorder, severe, 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 [facility] [id number] [place] [address] 49292- 4904 Sep, Opioid use disorder, severe, 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 ; Other intermediate frame tender (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 Z79.899 and Encounter for therapeutic drug level monitoring Z51.81 [facility] [id number] [place] [address] 10132- 1241 Sep, [facility] [id number] [place] [address] 02279- 2922 Sep, [facility] [id number] [place] [address] 07890- 6221 Sep, Opioid use disorder, severe, 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 ; 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 ; Chronic kidney disease, stage 3 N18.3 ; Essential hypertension I10 and Irritable bowel syndrome with constipation K58.1 [facility] [address] [place] [address] Sep, Opioid use disorder, severe, 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 [facility] [address] [place] [address] Sep, Opioid use disorder, severe, 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 [facility] [id number] [place] [address] 59929- 4410 Sep, Opioid use disorder, moderate, dependence F11.20 [facility] [address] [place] [address] 16782- 5412 Sep, Opioid use disorder, moderate, dependence F11.20 [facility] [address] [place] [address] Sep, Opioid use disorder, severe, in early remission F11.[address] 54985- 2437 Sep, Opioid use disorder, severe, 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 [facility] [address] [place] [address] Aug, Opioid use disorder, severe, 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 [facility] [address] [place] [address] 16339- 1825 Aug, Opioid use disorder, moderate, dependence F11.20 [facility] [id number] [place] [address] 52804 -1885 Aug, Bug bite without infection, initial encounter W57.XXXA [place] [id number] [place] [address] 55251- 5648 Aug, Opioid use disorder, moderate, dependence F11.20 [facility] [address] [place] [address] Aug, [facility] [address] [place] [address] 84467- 7565 Aug, Opioid use disorder, severe, 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 ; Other intermediate frame tender (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 Z79.899 ; Encounter for therapeutic drug level monitoring Z51.81 and 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20 and Non- intractable vomiting with nausea, unspecified vomiting type R11.2 [facility] [address] 85279- 4824 Aug, [facility] [address] 21140- 1679 Aug, Opioid use disorder, moderate, dependence F11.20 [facility] [address] 44184- 6354 Aug, [facility] [address] 99775- 6970 Jul, 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 and Opioid use disorder, moderate, dependence F11.20 [facility] [address] [place] [address] Jul, [facility] [address] 15707- 1581 Jul, [facility] [address] 29208- 1986 Jul, [facility] [address] 87693- 7455 Jul, Addiction to drug F19.20 and Chronic kidney disease, stage 3 N18.3 [facility] [address] [place] [address] Jul, Counseling on substance use and abuse Z71.89 [facility] [id number] [place] [address] 39608- 6335 Jul, Chronic kidney disease, stage 3 N18.3 [facility] [id number] [place] [address] 02619- 0268 Jul, 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 ; Diarrhea, unspecified type R19.7 and Essential hypertension I10 [place] [address] 91150- 9513 Jul, [facility] [address] 36490- 2445 Jun, [facility] [address] 76675- 2519 Jun, [facility] [id number] [place] [address] 61776- 3276 Apr, 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 [facility] [id number] [place] [address] 68675- 5179 Apr, Sore throat and laryngitis J06.0 and Non-intractable vomiting with nausea, unspecified vomiting type R11.2 [facility] [id number] [place] [address] 81599- 6183 Apr, [facility] [id number] [place] [address] 23168- 4349 Mar, [facility] [address] 94432- 8495 Jan, [facility] [id number] [place] [address] 70220- 6242 Jan, [facility] [address] 61024- 2335 Jan, [facility] [address] 60481- 6803 December, 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 ; Gastroparesis K31.84 ; Mixed hyperlipidemia E78.2 ; Chronic kidney disease, stage 3 N18.3 ; Dysthymia F34.1 and Acute bilateral low back pain without sciatica M54.5 [place] [address] 26316- 4307 December, [place] [address] 81659- 5202 December, [place] [address] 64288- 9091 Aug, Depression F32.9 and Gastroparesis K31.84 [place] [address] 60024- 7966 Aug, Gastroparesis K31.84 [place] [address] 00330- 7457 Jul, Recurrent UTI N39.0 ; Chronic kidney disease, stage 3 N18.3 and 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 [place] [address] 15063- 3764 Jul, [facility] [address] [id number] Jul, Dental examination Z01.20 and Dental caries K02.[address] 52905- 8094 Jul, [facility] [place] [address] 20584 -5095 Jul, Dysuria R30.0 ; Urinary tract infection N39.0 and Nausea R11.[address] 46764- 9498 Jun, Dysuria R30.0 [place] [id number] [place] [address] 37989- 6395 Jun, Dysuria R30.0 [facility] [id number] [place] [address] 15675- 6345 Jun, Dysuria R30.0 [facility] [id number] [place] [address] 97630- 2504 Jun, [facility] [id number] [place] [address] 65282- 9564 Jun, Acute cystitis with hematuria N30.01 [place] [address] [id number] [place] [address] 26892- 1217 May, [place] [address] [place] [id number] [place] [address] 88486- 5183 Apr, Diabetes mellitus without mention of complication, type I [ juvenile type], not stated as uncontrolled 250.01 ; Gastroparesis due to DM 250.60 ; Contraception management V25.9 and Renal insufficiency 593.9 [place] [address] [place] [id number] [place] [address] 88938- 1759 Apr, [facility] [id number] [place] [address] 41052- 6758 Apr, [place] [id number] [place] [address] 01321- 7902 Mar, [facility] [address] [place] [address] 08243- 4267 Mar, Hyperlipidemia 272.4 and Hypertensive heart and chronic kidney disease, benign, without heart failure and with chronic kidney disease stage I through stage IV, or unspecified 404.10 [facility] [address] [address]- 8601 Mar, Hyperlipidemia 272.4 ; Hyponatremia 276.1 ; 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 ; Hypertensive heart and chronic kidney disease, benign, without heart failure and with chronic kidney disease stage I through stage IV, or unspecified 404.10 ; Proteinuria 791.0 and Chronic kidney disease (CKD), stage III (moderate) 585.3 [place] [address] [id number] [place] [address] 02362- 5751 Mar, [place] [address] [id number] [place] [address] 29173- 2127 Mar, Elevated blood sugar level 790.29 [place] [address] [id number] [place] [address] 05449- 8161 Mar, Low grade squamous intraepithelial lesion (LGSIL) on cervical Pap smear 795.03 [place] [id number] [place] [address] 54359- 7149 Mar, Amenorrhea 626.0 [place] [id number] [place] [address] 35898- 3835 Jan, Amenorrhea 626.0 ; Routine gynecological examination V72.31 and Screen for STD (sexually transmitted disease) V74.5 [place] [address] [id number] [place] [address] 80340- 0666 Jan, Amenorrhea 626.0 [place] [address] [id number] [place] [address] 08128- 0848 Jan, Routine gynecological examination V72.31 ; Screen for STD ( sexually transmitted disease) V74.5 ; Pap test, as part of routine gynecological examination V76.2 ; Breast cancer screening V76.10 and Amenorrhea 626.0 [place] [address] [address] 3375 December, [place] [address] [id number] [place] [address] 18612- 1777 Dec, [place] [address] [id number] [place] [address] 67847- 6720 Dec, [place] [address] [address] [id number] [place] [address] 21109- 4956 Oct, [facility] [place] [facility] [address] [id number] [place] [address]- 5628 Oct, [facility] [place] [facility] [address] [id number] [place] [address]- 6143 Oct, [facility] [place] [facility] [address] [id number] [place] [address]- 5220 Oct, [facility] [place] [facility] [address] [id number] [place] [address]- 3879 Oct, [facility] [place] [facility] [address] [id number] [place] [address]- 2326 Oct, [facility] [place] [facility] [address] [id number] [place] [address]- 7529 Oct, [facility] [place] [facility] [address] [id number] [place] [address]- 7322 Oct, [facility] [place] [facility] [address] [id number] [place] [address]- 9756 Oct, [facility] [place] [facility] [address] [id number] [place] [address]- 1372 Oct, [facility] [place] [facility] [address] [id number] [place] [address]- 4114 Oct, [facility] [place] [facility] [address] [id number], [place] [address]- 2070 Sep, [facility] [place] [facility] [address] [id number], [place] [address]- 1775 Sep, [facility] [place] [facility] [address] [id number] [place] [address]- 9383 Sep, [facility] [place] [facility] [address] [id number] [place] [address]- 5601 Sep, [facility] [place] [facility] [address] [facility] [id number] [place] [address]- 9000 Sep, [facility] [place] [facility] [address] [id number] [place] [address]- 1461 16 Sep, 2014 [facility] [place] [facility] [address] [id number] [place] [address]- 3931 Sep, [facility] [place] [facility] [address] [id number] [place] [address]- 1145 Sep, [facility] [place] [facility] [address] [id number] [place] [address]- 5315 Sep, [facility] [place] [facility] [address] [id number] [place] [address]- 1450 Sep, [facility] [place] [facility] [address] [id number] [place] [address]- 7440 Sep, [facility] [place] [facility] [address] [id number] [place] [address]- 5822 Sep, [facility] [place] [facility] [address] [id number] [place] [address]- 3209 Sep, [facility] [place] [facility] [address] [id number] [place] [address]- 9984 Sep, [facility] [place] [facility] [address] [id number] [place] [address]- 0039 Sep, [facility] [place] [facility] [address] [id number] [place] [address]- 9304 Sep, [facility] [place] [facility] [address] [id number] [place] [address]- 3113 Sep, [facility] [place] [facility] [address] [id number] [place] [address]- 6236 Sep, [facility] [place] [facility] [address] [id number] [place] [address]- 5563 Sep, [facility] [place] [facility] [address] [id number] [place] [address]- 0756 Sep, [facility] [place] [facility] [address] [id number] [place] [address]- 1587 Aug, [facility] [place] [facility] [address] [id number] [place] [address]- 3357 Aug, [facility] [place] [facility] [address] [id number] [place] [address]- 3877 Aug, [facility] [place] [facility] [address] [id number] [place] 5107 Aug, [facility] [place] [facility] [address] [id number] [place] [address]- 4693 Aug, [facility] [place] [facility] [address] [id number] [place] [address]- 3280 Aug, [facility] [place] [facility] [address] [id number] [place] [address]- 5348 Aug, [facility] [place] [facility] [address] [id number] [place] [address]- 0385 Aug, [facility] [place] [facility] [address] [id number] [place] [address]- 5756 Aug, [facility] [place] [facility] [address] [id number] [place] [address]- 1588 Aug, [facility] [place] [facility] [address] [id number] [place] [address]- 8512 Aug, [facility] [place] [facility] [address] [id number] [place] [address]- 1150 Aug, [facility] [place] [facility] [address] [id number] [address]- 2866 Jul, [facility] [place] [facility] [address] [id number] [place] [address]- 7703 Jul, [facility] [place] [facility] [address] [id number] [place] [address]- 6872 Jul, [facility] [place] [facility] [address] [id number] [place] [address]- 3591 Jul, [facility] [place] [facility] [address] [id number] [place] [address]- 8977 17 Jul, 2014 [facility] [place] [facility] [address] [id number] [place] [address]- 3339 17 Jul, 2014 [facility] [place] [facility] [address] [id number] [place] 1654 Jul, [facility] [place] [facility] [address] [id number] [place] [address]- 7392 Jul, [facility] [place] [facility] [address] [id number] [place] [address]- 4241 Jul, [facility] [place] [facility] [address] [id number] [place] [address]- 5151 Jul, [facility] [place] [facility] [address] [id number] [place] [address]- 5704 Jun, [facility] [place] [facility] [address] [id number] [place] [address]- 6809 31 Jun, 2014 [facility] [place] [facility] [address] [id number] [place] [address]- 8364 30 Jun, 2014 [facility] [place] [facility] [address] [id number] [place] [address]- 0153 30 Jun, 2014 [facility] [place] [facility] [address] [id number] [place] [address]- 7719 30 Jun, 2014 [facility] [place] [facility] [address] [id number] [place] [address]- 8510 30 Jun, 2014 [facility] [place] [facility] [address] [id number] [place] [address]- 8345 15 Jun, 2014 [facility] [place] [facility] [address] [id number] [place] [address]- 9686 15 Jun, 2014 [facility] [place] [facility] [address] [id number] [place] [address]- 3046 May, [facility] [place] [facility] [address] [id number] [place] [address]- 7976 May, [facility] [place] [facility] [address] [id number] [place] [address]- 3864 May, [facility] [place] [facility] [address] [id number] [place] [address]- 9147 May, [facility] [place] [facility] [address] [id number] [place] [address]- 3548 May, [facility] [place] [facility] [address] [id number] [place] [address]- 1484 May, [facility] [place] [facility] [address] [id number] [place] [address]- 8686 May, [facility] [place] [facility] [address] [id number] [place] [address]- 6129 May, [facility] [place] [facility] [address] [id number] [place] [address]- 9508 Apr, [facility] [place] [facility] [address] [id number] [place] [address]- 0405 Apr, [facility] [place] [facility] [address] [id number] [place] [address]- 9743 Apr, [facility] [place] [facility] [address] [id number] [place] [address]- 5106 Apr, [facility] [place] [facility] [address] [id number] [place] [address]- 0257 Mar, [facility] [place] [facility] [address] [id number] [place] [address]- 3710 Mar, [facility] [place] [facility] [address] [id number] [place] [address]- 8412 Mar, [facility] [place] [facility] [address] [id number] [place] [address]- 8183 Mar, [facility] [place] [facility] [address] [id number] [place] [address]- 2560 Mar, [facility] [place] [facility] [address] [id number] [place] [address]- 3818 Mar, [facility] [place] [facility] [address] [id number] [place] [address]- 2183 Jan, [facility] [place] [facility] [address] [id number] [place] [address]- 8204 Jan, [facility] [place] [facility] [address] [id number] [place] [address]- 3175 Jan, [facility] [place] [facility] [address] [id number] [place] [address]- 0545 Jan, [facility] [place] [facility] [address] [id number] [place] [address]- 3743 Jan, [facility] [place] [facility] [address] [id number] [place] [address]- 2332 Jan, [facility] [place] [facility] [address] [id number] [place] [address]- 6028 Jan, [facility] [place] [facility] [address] [id number] [place] [address]- 0567 Jan, [facility] [place] [facility] [address] [id number] [place] [address]- 8885 Jan, [facility] [place] [facility] [address] [id number] [place] [address]- 5868 Jan, [facility] [place] [facility] [address] [id number] [place] [address]- 3826 Jan, [facility] [place] [facility] [address] [id number] [place] [address]- 4791 Jan, [facility] [place] [facility] [address] [id number] [place] [address]- 7354 December, [facility] [place] [facility] [address] [id number] [place] [address]- 8317 December, [facility] [place] [facility] [address] [id number] [place] [address]- 5923 December, [facility] [place] [facility] [address] [id number] [place] [address]- 0224 December, [facility] [address] [id number] [place] [address]- 5065 Dec, [facility] [place] [facility] [address] [id number] [place] [address]- 8527 Dec, [facility] [address] [id number] [place] [address]- 3187 Dec, [facility] [place] [facility] [address] [id number] [place] [address]- 4444 Dec, [facility] [address] [id number] [place] [address]- 8807 Dec, [facility] [address] [id number] [place] [address]- 8698 Dec, [facility] [place] [facility] [address] [id number] [place] [address]- 2317 Dec, [facility] [address] [id number] [place] [address]- 3811 Dec, [facility] [place] [facility] [address] [id number] [place] [address]- 3685 Dec, [facility] [address] [id number] [place] [address]- 3702 Dec, [facility] [place] [facility] [address] [id number] [place] [address]- 0463 Dec, [facility] [place] [facility] [address] [id number] [place] [address]- 2127 Dec, [facility] [place] [facility] [address] [id number] [place] [address]- 3198 Dec, [facility] [place] [facility] [address] [id number] [place] [address]- 9192 Dec, [facility] [place] [facility] [address] [id number] [place] [address]- 4314 Oct, [facility] [place] [facility] [address] [id number] [place] [address]- 9750 31 Oct, 2013 [facility] [place] [facility] [address] [id number] [place] [address]- 7186 Oct, [facility] [place] [facility] [address] [id number] [place] [address]- 1293 Oct, [facility] [place] [facility] [address] [id number] [place] [address]- 4840 Oct, [facility] [place] [facility] [address] [id number] [place] [address]- 6465 Oct, [facility] [place] [facility] [address] [id number] [place] [address] Oct, [facility] [place] [facility] [address] [id number] [place] [address]- 1463 Oct, [facility] [place] [facility] [address] [id number] [place] [address]- 7968 Oct, [facility] [place] [facility] [address] [id number] [place] [address]- 9860 Oct, [facility] [place] [facility] [address] [id number] [place] [address]- 6867 Sep, [facility] [place] [facility] [address] [id number] [place] [address]- 6708 Sep, [facility] [place] [facility] [address] [id number] [place] [address]- 1404 Sep, [facility] [place] [facility] [address] [id number] [place] [address]- 4753 Sep, [facility] [place] [facility] [address] [id number] [place] [address]- 2196 Sep, [facility] [place] [facility] [address] [id number] [place] [address]- 2996 Sep, [facility] [place] [facility] [address] [id number] [place] [address]- 2367 Aug, [facility] [address] [facility] [id number], [place] [address]- 0858 Aug, [facility] [address] [facility] [id number], [place] [address]- 9974 Jul, [facility] [address] [facility] [id number] 2751 Jul, [facility] [address] [facility] [id number][place] [address]273 Jul, [facility] [address] [facility] [id number], [place] [address]- 5206 Jul, [facility] [address] [facility] [id number], [place] [address]- 7327 Jul, IMMUNIZATIONS No Known Immunizations SOCIAL HISTORY Never Assessed REASON FOR VISIT LSIL HPV + -- efrain cristina PLAN OF CARE Activity Details Follow Up prn Reason: VITAL SIGNS Height 66 in 2017-04-26 Weight 177.0 lbs 2017-04-26 Temperature 97.0 degrees Fahrenheit 2017-04-26 Heart Rate 80 bpm 2017-04-26 Respiratory Rate 22 2017-04-26 BMI 28.57 kg/m2 2017-04-26 Blood pressure systolic 120 mmHg 2017-04-26 Blood pressure diastolic 70 mmHg 2017-04-26 MEDICATIONS Medication Instructions Dosage Frequency Start Date End Date Duration Status Dicyclomine HCl 10 mg Orally 2 times a day prn 1 tablet 30 Active Fish Oil 1000 MG Orally Once a day 2 capsule 24h Active Vitamin B12 Active Vitamin B-6 100 MG Orally Once a day 1 tablet 24h Active Wellbutrin SR 100 mg Orally Once a day 1 tablet 24h Apr, 30 day (s) Active Suboxone 8-2 MG Sublingual Once a day 2 24h Aug, May, 30 days Active Tylenol 8 Hour Active Zofran ODT 4 MG Orally 3 times a day, prn take 1 tablets by Oral route every 8 hours PRN Nausea or Vomiting Sep, Active Enalapril Maleate 10 mg Orally twice a day 1 tablet 12h 30 Active Milk Thistle 500 MG Active Glucagon Emergency 1 MG as directed Apr, Active Lovastatin 20 mg Orally Once a day 1 tablet with a meal 24h Mar, 30 day(s) Active Humalog 100 UNIT/ML Subcutaneous pump as per pump-must have appt for refills inject Units by Subcutaneous route every hour per insulin pump Active RESULTS Name Result Date Reference Range TEST, URINE (IN HOUSE) 2017-04-26 RESULTS negative Lot # [id number] Control + Exp date 06/2018 PDF Report 2017-04-26 PDF Report1 LC PATHOLOGY REPORT 2017-04-26 . . . . . . . PROCEDURES Procedure Date Ordered Result Body Site COLP W/ BX & ECC 2017-04-26 N/A URINE TEST Apr 26, 2017 BX/CURETT OF CERVIX W/SCOPE Apr 26, 2017 INSTRUCTIONS MEDICATIONS ADMINISTERED No Known Medications [...]
--- OUTSIDE RECORDS SUMMARY | 2018-08-30 20:44 | XMS REPORT ---
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 Active 82008322 Problem Chronic kidney disease, stage 3 N18.3 Active 704355065 Problem Opioid use disorder, moderate, dependence F11.20 Active 75028362 Problem Addiction to drug F19.20 Active 975094229 Problem Mixed hyperlipidemia E78.2 Active 072580200 Problem Dysthymia F34.1 Active 87184804 Problem Diarrhea, unspecified type R19.7 Active 45984877 Problem Essential hypertension I10 Active 61891857 ALLERGIES Substance Reaction Event Type Date Status Penicillin V Potassium rash Drug Allergy Jul, Active Cipro nausea and vomiting Drug Allergy Jul, Active Bactrim DS rash Drug Allergy Jul, Active SOCIAL HISTORY No smoking Hx information available PLAN OF CARE VITAL SIGNS Height 66 in 2016-07-30 Weight 177.7 lbs 2016-07-30 Heart Rate 84 bpm 2016-07-30 Respiratory Rate 18 2016-07-30 BMI 28.68 kg/m2 2016-07-30 Blood pressure systolic 140 mmHg 2016-07-30 Blood pressure diastolic 92 mmHg 2016-07-30 MEDICATIONS Medication Instructions Dosage Frequency Start Date End Date Duration Status Tylenol 8 Hour Active Zofran ODT 4 MG Orally 3 times a day, prn take 1 tablets by Oral route every 8 hours PRN Nausea or Vomiting Sep, Active Enalapril Maleate 5 mg Orally Twice a day 1 tablet 12h Active Lovastatin 20 mg Orally Once a day 1 tablet with a meal 24h Mar, 30 day(s) Active Fish Oil 1000 MG Orally Once a day 2 capsule 24h Active Vitamin B12 Active Vitamin D (Ergocalciferol) 88542 UNIT Orally TWICE WEEKLY X8 WKS-AFTER 8 WEEKS TAKEN OTC VITAMIN D 2000 IU 1 capsule Mar, Active Humalog 100 UNIT/ML Subcutaneous pump as per pump inject Units by Subcutaneous route every hour per insulin pump Active Dicyclomine HCl 10 mg Orally 3 times a day prn 1 capsule Jul, Jul, 07 days Active RESULTS Name Result Date Reference Range GLUCOSE FINGERSTICK (IN HOUSE) 2016-07-30 GLU FINGERSTICK 109 PC Lot # [id number] Exp date 10/28/2016 PROCEDURES Procedure Date Ordered Related Diagnosis Body Site GLUCOSE BLOOD TEST Jul 30, 2016 Office Visit, Est Pt., Level 4 Jul 30, 2016 IMMUNIZATIONS No Known Immunizations
--- OUTSIDE RECORDS SUMMARY | 2018-08-30 20:44 | XMS REPORT ---
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
--- OUTSIDE RECORDS SUMMARY | 2018-08-30 20:45 | XMS REPORT ---
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 Active 78520451 Problem Chronic kidney disease, stage 3 N18.3 Active 876843762 Problem CHI I (cervical intraepithelial neoplasia I) N87.0 Active 238168032 Problem Mild episode of recurrent major depressive disorder F33.0 Active 283643231 Problem Addiction to drug F19.20 Active 816611843 Problem Essential hypertension I10 Active 04769383 Problem Opioid use disorder, severe, in sustained remission F11.21 Active 93080675 Problem Irritable bowel syndrome with constipation K58.1 Active 134840269 ALLERGIES No Information ENCOUNTERS Encounter Location Date Diagnosis [facility] [address] [place] [address] Jan, [facility] [address] [place] [address] December, Opioid use disorder, severe, in sustained remission F11.21 [facility] [address] [facility] [id number] [address] December, Opioid use disorder, severe, in sustained remission F11.21 and 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 [facility] [address] [facility] [id number] [address] December, Opioid use disorder, severe, in early remission F11.21 [facility] [address] [place] [address] Dec, Opioid use disorder, severe, in sustained remission F11.21 [facility] [id number] [place] [address] 61582- 9364 Dec, 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 ; Unprotected sexual intercourse Z72.51 ; Pain of left thumb M79.645 ; Mixed hyperlipidemia E78.2 ; Gastroparesis K31.84 ; Essential hypertension I10 and Irritable bowel syndrome with constipation K58.1 [facility] [id number] [place] [address] 30338- 6047 Dec, Opioid use disorder, severe, in early remission F11.21 [facility] [id number] [place] [address] 03414- 2935 Oct, [facility] [id number] [place] [address] 88299- 5035 Oct, Opioid use disorder, severe, in early remission F11.21 [facility] [id number] [place] [address] 31023- 5752 Oct, [facility] [id number] [place] [address] 18426- 0337 Oct, Opioid use disorder, severe, in early remission F11.21 [facility] [id number] [place] [address] 98808- 9080 Oct, [facility] [id number] [place] [address] 87229- 7568 Oct, [facility] [address] [place] [address] Oct, Opioid use disorder, severe, in sustained remission F11.21 [facility] [id number] [place] [address] 59048- 5912 Sep, [facility] [id number] [place] [address] 59681- 6010 Sep, [facility] [id number] [place] [address] 17442- 8049 Sep, Opioid use disorder, severe, in early remission F11.21 [facility] [id number] [place] [address] 44925- 7668 Aug, Opioid use disorder, severe, in early remission F11.21 [facility] [id number] [place] [address] 10490- 5319 Jul, [facility] [address] 47200- 3603 Jul, Chronic kidney disease, stage 3 N18.3 ; Dysthymia F34.1 and Opioid use disorder, severe, in sustained remission F11.21 [facility] [address] [place] [address] Jul, Opioid use disorder, severe, in sustained remission F11.21 [facility] [id number] [place] [address] 49970- 1554 Jul, Long-term use of high-risk medication Z79.899 and Chronic kidney disease, stage 3 N18.3 [facility] [id number] [place] [address] 68823- 3637 Jul, Opioid use disorder, severe, in early remission F11.21 [facility] [id number] [place] [address] 41384- 7158 Jul, [facility] [id number] [place] [address] 17184- 9733 Jun, [facility] [id number] [place] [address] 67984- 8096 Jun, [facility] [id number] [place] [address] 36783- 3527 Jun, Opioid use disorder, moderate, dependence F11.20 and Opioid use disorder, severe, in early remission F11.21 [facility] [id number] [place] [address] 56197- 0226 Jun, [facility] [id number] [place] [address] 26521- 2381 Jun, Long-term use of high-risk medication Z79.899 [facility] [id number] [place] [address] 92934- 6915 Jun, CHI I (cervical intraepithelial neoplasia I) N87.0 [facility] [id number] [place] [address] 15562- 0497 May, Opioid use disorder, severe, in early remission F11.21 [facility] [id number] [place] [address] 54074- 6184 18 May, 2017 Chronic kidney disease, stage 3 N18.3 [facility] [id number] [place] [address] 29873- 5654 14 May, 2017 Chronic kidney disease, stage 3 N18.3 [facility] [address] [place] [address] 05 May, 2017 Opioid use disorder, severe, in sustained remission F11.21 [facility] [id number] [place] [address] 12474- 5111 Apr, LGSIL on Pap smear of cervix R87.612 [facility] [address] [place] [address] Apr, [facility] [id number] [place] [address] 69740- 8932 Apr, Opioid use disorder, severe, in early remission F11.21 [facility] [id number] [place] [address] 40440- 5377 Apr, Opioid use disorder, severe, in early remission F11.21 [facility] [id number] [place] [address] 39824- 1574 Apr, Opioid use disorder, severe, in early remission F11.21 [facility] [id number] [place] [address] 74841- 7940 Apr, Opioid use disorder, severe, in early remission F11.21 [facility] [address] [address] 14 Apr, 2017 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 [facility] [id number] [place] [address] 81169- 1082 10 Apr, 2017 Opioid use disorder, severe, in early remission F11.21 [facility] [address] [place] [address] Apr, Opioid use disorder, severe, in sustained remission F11.21 [facility] [id number] [place] [address] 82075- 1766 Apr, Opioid use disorder, severe, in early remission F11.21 [facility] [id number] [place] [address] 25599- 8916 Apr, Mild episode of recurrent major depressive disorder F33.0 and Right acute serous otitis media, recurrence not specified H65.01 [facility] [id number] [place] [address] 87441- 6208 Mar, [facility] [id number] [place] [address] 86213- 1415 Mar, Opioid use disorder, severe, in early remission F11.21 [facility] [id number] [place] [address] 43144- 3727 Mar, [facility] [address] [place] [address] Mar, Opioid use disorder, severe, in sustained remission F11.21 [facility] [address] [place] [address] Mar, Opioid use disorder, severe, in sustained remission F11.21 [facility] [id number] [place] [address] 40373- 7962 Mar, Opioid use disorder, severe, in early remission F11.21 [facility] [id number] [place] [address] 97803- 1968 Jan, Opioid use disorder, severe, in early remission F11.21 [facility] [address] [place] [address] Jan, Opioid use disorder, severe, in sustained remission F11.21 [facility] [address] [place] [address] Jan, Opioid use disorder, severe, in sustained remission F11.21 [facility] [id number] [place] [address] 32105- 8476 Jan, Opioid use disorder, severe, in early remission F11.21 [facility] [address] [place] [address] Jan, Opioid use disorder, severe, in sustained remission F11.[address] [address] December, Opioid use disorder, severe, in early remission F11.21 [facility] [address] [place] [address] December, Opioid use disorder, severe, in sustained remission F11.21 [place] [id number] [place] [address] 73146- 0404 December, Routine gynecological examination Z01.419 and Chronic kidney disease, stage 3 N18.3 [place] [id number] [place] [address] 30818- 0909 December, Chronic kidney disease, stage 3 N18.3 ; 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 ; Gastroparesis K31.84 ; Essential hypertension I10 and Irritable bowel syndrome with constipation K58.1 [facility] [address] [place] [address] December, Opioid use disorder, severe, in sustained remission F11.[address] [address] December, Opioid use disorder, severe, in early remission F11.21 [facility] [address] [place] [address] December, Opioid use disorder, severe, in sustained remission F11.[address] 33041- 2851 December, Encounter for therapeutic drug level monitoring Z51.81 [facility] [address] [place] [address] December, Opioid use disorder, severe, in sustained remission F11.21 [facility] [address] [place] [address] Dec, Opioid use disorder, severe, in sustained remission F11.21 [facility] [id number] [place] [address] 70502- 9120 Dec, Opioid use disorder, severe, in early remission F11.21 [facility] [id number] [place] [address] 07092- 3875 Dec, [facility] [address] [place] [address] Dec, Opioid use disorder, severe, in sustained remission F11.21 [facility] [id number] [place] [address] 82492- 0336 Dec, Opioid use disorder, severe, in early remission F11.21 [facility] [address] [place] [address] Dec, Opioid use disorder, severe, in sustained remission F11.21 [facility] [id number] [place] [address] 53815- 8676 Dec, 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 [facility] [address] [place] [id number] [place] [address] 99503- 3796 Dec, Opioid use disorder, severe, in sustained remission F11.21 ; Encounter for therapeutic drug level monitoring Z51.81 and Other terminal operator ( 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 Z79.899 [facility] [address] [place] [address] Oct, Opioid use disorder, severe, in sustained remission F11.21 [facility] [id number] [place] [address] 81915- 5876 Oct, Opioid use disorder, severe, in early remission F11.21 [facility] [id number] [place] [address] 28631- 8272 15 Oct, 2016 [facility] [address] [place] [address] 15 Oct, 2016 Opioid use disorder, severe, in sustained remission F11.21 [facility] [id number] [place] [address] 26077- 4163 15 Oct, 2016 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 [facility] [address] 18890- 3153 14 Oct, 2016 Routine gynecological examination Z01.419 [facility] [address] 235271- 7420 07 Oct, 2016 Opioid use disorder, severe, in early remission F11.21 [facility] [id number] [place] [address] 56865- 2250 06 Oct, 2016 Opioid use disorder, severe, in early remission F11.21 [facility] [id number] [place] [address] 24736- 8220 06 Oct, 2016 Opioid use disorder, severe, in early remission F11.21 [facility] [address] [place] [address] 02 Oct, 2016 Opioid use disorder, severe, in sustained remission F11.21 [facility] [id number] [place] [address] 70509- 7162 24 Oct, 2016 Opioid use disorder, severe, in early remission F11.21 [facility] [id number] [place] [address] 74891- 9350 Oct, Opioid use disorder, severe, in early remission F11.21 [facility] [address] [place] [address] Oct, Opioid use disorder, severe, in sustained remission F11.21 [facility] [id number] [place] [address] 63553- 1675 Oct, Opioid use disorder, severe, in sustained remission F11.21 ; Encounter for therapeutic drug level monitoring Z51.81 and Other terminal operator ( 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 Z79.899 [facility] [id number] [place] [address] 39948- 8696 16 Oct, 2016 [facility] [address] [place] [address] 14 Oct, 2016 Opioid use disorder, severe, in early remission F11.21 [facility] [address] [place] [address] 10 Oct, 2016 Opioid use disorder, severe, in early remission F11.21 [facility] [id number] [place] [address] 08465- 6073 09 Oct, 2016 Opioid use disorder, severe, in early remission F11.21 [facility] [id number] [place] [address] 73731- 8366 08 Oct, 2016 [facility] [id number] [place] [address] 84087- 3712 Oct, [facility] [id number] [place] [address] 38072- 2933 Oct, [facility] [address] [place] [address] Oct, Opioid use disorder, severe, in early remission F11.21 [facility] [id number] [place] [address] 33959- 7338 Sep, Opioid use disorder, severe, in early remission F11.21 [facility] [address] [place] [address] Sep, Opioid use disorder, severe, in early remission F11.21 [facility] [id number] [place] [address] 74832- 0879 Sep, Opioid use disorder, severe, in early remission F11.21 ; Other residential (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 Z79.899 and Encounter for therapeutic drug level monitoring Z51.81 [facility] [address] [place] [address] 44275- 5348 Sep, [facility] [id number] [place] [address] 41348- 9510 Sep, [facility] [address] [place] [address] 64078- 2528 Sep, Opioid use disorder, severe, in early remission F11.21 ; 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 ; Chronic kidney disease, stage 3 N18.3 ; Essential hypertension I10 and Irritable bowel syndrome with constipation K58.1 [facility] [address] [place] [address] Sep, Opioid use disorder, severe, in early remission F11.21 [facility] [address] [place] [address] Sep, Opioid use disorder, severe, in early remission F11.[address] 392834- 272 Sep, Opioid use disorder, moderate, dependence F11.[address] 07018- 7141 Sep, Opioid use disorder, moderate, dependence F11.20 [facility] [address] [place] [address] Sep, Opioid use disorder, severe, in early remission F11.[address] 40885- 2830 Sep, Opioid use disorder, severe, in early remission F11.21 [facility] [address] [place] [address] Aug, Opioid use disorder, severe, in early remission F11.[address] 09246- 6272 Aug, Opioid use disorder, moderate, dependence F11.20 [facility] [address] [place] [address] 81807 -3740 Aug, Bug bite without infection, initial encounter W57.XXXA [address] 99090- 1390 Aug, Opioid use disorder, moderate, dependence F11.20 [facility] [address] [place] [address] Aug, [facility] [id number] [place] [address] 479184- 5870 Aug, Opioid use disorder, severe, in early remission F11.21 ; Other residential (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 Z79.899 ; Encounter for therapeutic drug level monitoring Z51.81 and 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 [facility] [address] [place] [address] 15 Aug, 2016 [facility] [address] 84276- 3079 Aug, Opioid use disorder, moderate, dependence F11.20 ; Other terminal operator (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 Z79.899 and Encounter for therapeutic drug level monitoring Z51.81 [facility] [id number] [place] [address] 64365- 2422 13 Aug, 2016 [facility] [address] 59857- 0122 Aug, Non-intractable vomiting with nausea, unspecified vomiting type R11.2 [place] [id number] [place] [address] 11961- 2978 Aug, Opioid use disorder, moderate, dependence F11.20 and Non- intractable vomiting with nausea, unspecified vomiting type R11.2 [facility] [id number] [place] [address] 17321- 1954 Aug, [facility] [id number] [place] [address] 48046- 2540 Aug, Opioid use disorder, moderate, dependence F11.20 [facility] [id number] [place] [address] 95264- 2546 Aug, [facility] [id number] [place] [address] 48869- 0143 Jul, 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 and Opioid use disorder, moderate, dependence F11.20 [facility] [address] [place] [address] Jul, [facility] [id number] [place] [address] 80318- 5800 Jul, [facility] [id number] [place] [address] 43096- 3280 Jul, [facility] [address] 41373- 2007 Jul, Addiction to drug F19.20 and Chronic kidney disease, stage 3 N18.3 [facility] [address] [place] [address] Jul, Counseling on substance use and abuse Z71.89 [facility] [address] 74388- 2275 Jul, Chronic kidney disease, stage 3 N18.3 [facility] [address] 59029- 8329 Jul, 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 ; Diarrhea, unspecified type R19.7 and Essential hypertension I10 [facility] [address] 11928- 5364 Jul, [facility] [id number] [place] [address] 31756- 4374 Jun, [facility] [id number] [place] [address] 24333- 2106 Jun, [facility] [address] 10112- 2516 Apr, 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 [facility] [address] 04971- 1710 Apr, Sore throat and laryngitis J06.0 and Non-intractable vomiting with nausea, unspecified vomiting type R11.2 [facility] [address] 13510- 3745 Apr, [facility] [address] [address] 99[address] Mar, [facility] [id number] [place] [address] 25708- 6296 Jan, [facility] [id number] [place] [address] 52178- 9300 Jan, [facility] [id number] [place] [address] 34002- 2078 Jan, [facility] [id number] [place] [address] 70890- 7801 December, 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 ; Gastroparesis K31.84 ; Mixed hyperlipidemia E78.2 ; Chronic kidney disease, stage 3 N18.3 ; Dysthymia F34.1 and Acute bilateral low back pain without sciatica M54.5 [facility] [id number] [place] [address] 47265- 1013 December, [facility] [id number] [place] [address] 15704- 3918 December, [facility] [id number] [place] [address] 61232- 3715 Aug, Depression F32.9 and Gastroparesis K31.84 [facility] [id number] [place] [address] 51893- 0072 Aug, Gastroparesis K31.84 [facility] [id number] [place] [address] 89189- 3052 Jul, Recurrent UTI N39.0 ; Chronic kidney disease, stage 3 N18.3 and 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 [facility] [address] [address] Jul, [facility] [address] [address] Jul, Dental examination Z01.20 and Dental caries K02.9 [facility] [id number] [place] [address] 89503- 6306 Jul, [facility] [id number] [place] [address] 04384 -9105 Jul, Dysuria R30.0 ; Urinary tract infection N39.0 and Nausea R11.0 [facility] [id number] [place] [address] 45945- 5777 Jun, Dysuria R30.0 [facility] [address] 47649- 8680 Jun, Dysuria R30.0 [facility] [id number] [place] [address] 62463- 6894 Jun, Dysuria R30.0 [facility] [id number] [place] [address] [id number]- 5822 Jun, [facility] [id number] [place] [address] 65046- 1142 Jun, Acute cystitis with hematuria N30.01 [facility] [id number] [place] [address] 21258- 5199 May, [facility] [id number] [place] [address] 96832- 1585 Apr, Diabetes mellitus without mention of complication, type I [ juvenile type], not stated as uncontrolled 250.01 ; Gastroparesis due to DM 250.60 ; Contraception management V25.9 and Renal insufficiency 593.9 [facility] [id number] [place] [address] [id number]- 2330 Apr, [facility] [address] [address]- [address] Apr, [facility] [id number] [place] [address] 60730- 8705 Mar, [facility] [address] [address] [address] Mar, Hyperlipidemia 272.4 and Hypertensive heart and chronic kidney disease, benign, without heart failure and with chronic kidney disease stage I through stage IV, or unspecified 404.10 [id number] [place] [address]67- 0118 Mar, Hyperlipidemia 272.4 ; Hyponatremia 276.1 ; 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 ; Hypertensive heart and chronic kidney disease, benign, without heart failure and with chronic kidney disease stage I through stage IV, or unspecified 404.10 ; Proteinuria 791.0 and Chronic kidney disease (CKD), stage III (moderate) 585.3 [place] [id number] [place] [address]32- 7892 Mar, [place] [id number] [place] [address] 18783- 4354 Mar, Elevated blood sugar level 790.29 [place] [id number] [place] [address] 27992- 6817 Mar, Low grade squamous intraepithelial lesion (LGSIL) on cervical Pap smear 795.03 [place] [id number] [place] [address] 17886- 8571 Mar, Amenorrhea 626.0 [place] [id number] [place] [address] 19159- 9689 Jan, Amenorrhea 626.0 ; Routine gynecological examination V72.31 and Screen for STD (sexually transmitted disease) V74.5 [id number] [place] [address] 15007- 0682 Jan, Amenorrhea 626.0 [place] [id number] [place] [address] 53717- 5154 08 Jan, 2015 Routine gynecological examination V72.31 ; Screen for STD ( sexually transmitted disease) V74.5 ; Pap test, as part of routine gynecological examination V76.2 ; Breast cancer screening V76.10 and Amenorrhea 626.0 [place] [id number] [place] [address] December, [facility] [place] [facility] [address] [id number] [place] [address] 14 Dec, 2014 [facility] [place] [facility] [address] [id number] [place] [address] 1533 Dec, [facility] [place] [facility] [address] [id number] [place] [address]- 8981 30 Oct, 2014 [facility] [place] [facility] [address] [id number] [place] [address]- 4028 Oct, [facility] [place] [facility] [address] [id number] [place] [address]- 5399 Oct, [facility] [place] [facility] [address] [id number] [place] [address]- 7144 Oct, [facility] [place] [facility] [address] [id number] [place] [address]- 7944 Oct, [facility] [place] [facility] [address] [id number] [place] [address]- 3946 Oct, [facility] [place] [facility] [address] [id number] [place] [address]- 9909 Oct, [facility] [place] [facility] [address] [facility] [id number] [place] [address]- 3459 Oct, [facility] [place] [facility] [address] [id number] [place] [address]- 7960 Oct, [facility] [place] [facility] [address] [id number] [place] [address]- 7716 Oct, [facility] [place] [facility] [address] [id number] [place] [address]- 8312 Oct, [facility] [place] [facility] [address] [id number] [place] [address] 2546 Sep, [facility] [place] [facility] [address] [id number] [place] [address]- 1318 Sep, [facility] [place] [facility] [address] [id number] [place] [address]- 2163 Sep, [facility] [place] [facility] [address] [id number] [place] [address]- 6703 Sep, [facility] [place] [facility] [address] [id number] [place] [address]- 8968 16 Sep, 2014 [facility] [place] [facility] [address] [id number] [place] [address]- 3058 Sep, [facility] [place] [facility] [address] [id number] [place] [address]- 1207 Sep, [facility] [place] [facility] [address] [id number] [place] [address]- 7373 Sep, [facility] [place] [facility] [address] [id number] [place] [address]- 3727 Sep, [facility] [place] [facility] [address] [id number] [place] [address]- 6025 Sep, [facility] [place] [facility] [address] [id number] [place] [address]- 7063 Sep, [facility] [place] [facility] [address] [id number] [place] [address]- 1193 Sep, [facility] [place] [facility] [address] [id number] [place] [address]- 0015 Sep, [facility] [place] [facility] [address] [id number] [place] [address]- 3691 Sep, [facility] [place] [facility] [address] [id number] [place] [address]- 8951 Sep, [facility] [place] [facility] [address] [id number] [place] [address]- 6101 Sep, [facility] [place] [facility] [address] [id number] [place] [address]- 7131 Sep, [facility] [place] [facility] [address] [id number] [place] [address]- 9268 Sep, [facility] [address] [id number] [place] [address]- 8266 Sep, [facility] [place] [facility] [address] [id number] [place] [address]- 7438 Sep, [facility] [place] [facility] [address] [id number] [place] [address]- 6261 Aug, [facility] [place] [facility] [address] [id number] [place] [address]- 4036 Aug, [facility] [place] [facility] [address] [id number] [place] [address]- 8488 Aug, [facility] [place] [facility] [address] [id number] [place] [address]- 6663 Aug, [facility] [place] [facility] [address] [id number] [place] [address]- 4485 Aug, [facility] [place] [facility] [address] [id number] [place] [address]- 1101 Aug, [facility] [place] [facility] [address] [id number] [place] [address]- 0968 Aug, [facility] [place] [facility] [address] [id number] [place] [address]- 3323 Aug, [facility] [place] [facility] [address] [id number] [place] [address]- 7049 Aug, [facility] [place] [facility] [address] [id number] [place] [address]- 5241 Aug, [facility] [place] [facility] [address] [id number] [place] [address]- 2733 Aug, [facility] [place] [facility] [address] [id number] [place] [address]- 8098 Aug, [facility] [place] [facility] [address] [id number] [place] [address]- 6142 Jul, [facility] [place] [facility] [address] [id number] [place] [address]- 9768 Jul, [facility] [place] [facility] [address] [id number] [place] [address]- 3027 Jul, [facility] [place] [facility] [address] [id number] [place] [address]- 5865 Jul, [facility] [place] [facility] [address] [id number] [place] [address]- 4234 Jul, [facility] [place] [facility] [address] [id number] [place] [address]- 8409 Jul, [facility] [place] [facility] [address] [id number] [place] [address]- 7992 Jul, [facility] [place] [facility] [address] [id number] [place] [address]- 9585 Jul, [facility] [place] [facility] [address] [id number] [place] [address]- 4082 Jul, [facility] [place] [facility] [address] [id number] [place] [address]- 4282 Jul, [facility] [place] [facility] [address] [id number] [place] [address]- 6462 Jun, [facility] [place] [facility] [address] [id number] [place] [address]- 7520 Jun, [facility] [place] [facility] [address] [id number] [place] [address]- 0544 30 Jun, 2014 [facility] [place] [facility] [address] [id number] [place] [address]- 6048 30 Jun, 2014 [facility] [place] [facility] [address] [id number] [place] [address]- 5899 Jun, [facility] [place] [facility] [address] [id number] [place] [address]- 9205 30 Jun, 2014 [facility] [place] [facility] [address] [id number] [place] [address]- 9695 15 Jun, 2014 [facility] [place] [facility] [address] [id number] [place] [address]- 1058 15 Jun, 2014 [facility] [place] [facility] [address] [id number] [place] [address]- 1671 May, [facility] [place] [facility] [address] [id number] [place] [address]- 3178 May, [facility] [place] [facility] [address] [id number] [place] [address]- 6162 May, [facility] [place] [facility] [address] [id number] [place] [address]- 5752 May, [facility] [place] [facility] [address] [id number] [place] [address]- 2388 May, [facility] [place] [facility] [address] [id number] [place] [address]- 8716 May, [facility] [place] [facility] [address] [id number] [place] [address]- 5662 May, [facility] [place] [facility] [address] [id number] [place] [address]- 1576 May, [facility] [place] [facility] [address] [id number] [place] [address]- 1426 Apr, [facility] [place] [facility] [address] [id number] [place] [address]- 5482 Apr, [facility] [place] [facility] [address] [id number] [place] [address]- 3378 Apr, [facility] [place] [facility] [address] [id number] [place] [address]- 7533 Apr, [facility] [place] [facility] [address] [id number] [place] [address]- 1980 Mar, [facility] [place] [facility] [address] [id number] [place] [address]- 6384 Mar, [facility] [place] [facility] [address] [id number] [place] [address]- 2142 Mar, [facility] [place] [facility] [address] [id number] [place] [address]- 6029 Mar, [facility] [place] [facility] [address] [id number] [place] [address]- 3320 Mar, [facility] [place] [facility] [address] [id number] [place] [address]- 9274 Mar, [facility] [place] [facility] [address] [id number] [place] [address]- 6326 Jan, [facility] [place] [facility] [address] [id number] [place] [address]- 2579 Jan, [facility] [place] [facility] [address] [id number] [place] [address]- 2940 Jan, [facility] [place] [facility] [address] [id number] [place] [address]- 6509 Jan, [facility] [place] [facility] [address] [id number] [place] [address]- 4591 Jan, [facility] [place] [facility] [address] [id number] [place] [address]- 6275 Jan, [facility] [place] [facility] [address] [id number] [place] [address]- 6336 Jan, [facility] [place] [facility] [address] [id number] [place] [address]- 7383 Jan, [facility] [place] [facility] [address] [id number] [place] [address]- 5650 Jan, [facility] [place] [facility] [address] [id number] [place] [address]- 6483 Jan, [facility] [place] [facility] [address] [id number] [place] [address]- 9983 Jan, [facility] [place] [facility] [address] [id number] [place] [address]- 0233 Jan, [facility] [place] [facility] [address] [id number] [place] [address]- 1223 December, [facility] [place] [facility] [address] [id number] [place] [address]- 8127 December, [facility] [place] [facility] [address] [id number] [place] [address]266 December, [facility] [place] [facility] [address] [id number] [place] [address]- 4137 December, [facility] [address] [id number] [place] [address]- 5828 Dec, [facility] [place] [facility] [address] [id number] [place] [address]- 5109 Dec, [facility] [address] [id number] [place] [address]- 1211 Dec, [facility] [place] [facility] [address] [id number] [place] [address]- 5761 Dec, [facility] [place] [facility] [address] [id number] [place] [address]- 7805 Dec, [facility] [place] [facility] [address] [id number] [place] [address]- 5345 Dec, [facility] [place] [facility] [address] [id number] [place] [address]- 7535 Dec, [facility] [place] [facility] [address] [id number] [place] [address]- 2950 Dec, [facility] [place] [facility] [address] [id number] [place] [address]- 2904 Dec, [facility] [place] [facility] [address] [id number] [place] [address]- 0188 Dec, [facility] [place] [facility] [address] [id number] [place] 1473 Dec, [facility] [place] [facility] [address] [id number] [place] [address]- 8616 Dec, [facility] [place] [facility] [address] [id number] [place] [address]- 8959 Dec, [facility] [place] [facility] [address] [id number] [place] [address]- 5376 Dec, [facility] [place] [facility] [address] [id number] [place] [address]- 9781 Oct, [facility] [place] [facility] [address] [id number] [place] [address]- 7549 Oct, [facility] [place] [facility] [address] [id number] [place] [address]- 8614 Oct, [facility] [place] [facility] [address] [id number] [place] [address]- 6488 Oct, [facility] [place] [facility] [address] [id number] [place] [address]- 4631 Oct, [facility] [place] [facility] [address] [id number] [place] [address]- 7475 Oct, [facility] [place] [facility] [address] [id number] [place] [address] Oct, [facility] [place] [facility] [address] [id number] [place] [address]- 1357 Oct, [facility] [place] [facility] [address] [id number] [place] [address]- 9527 Oct, [facility] [place] [facility] [address] [id number] [place] [address]- 6437 Oct, [facility] [place] [facility] [address] [id number] [place] [address]- 7019 Sep, [facility] [place] [facility] [address] [id number] [place] [address]- 5851 Sep, [facility] [place] [facility] [address] [id number] [place] [address]- 1650 Sep, [facility] [place] [facility] [address] [id number] [address] Sep, [facility] [id number] [address]- 0131 Sep, [facility] [id number] [address]- 3850 Sep, [facility] [id number] [address]- 6236 Aug, [facility] [id number] [address]- 3461 Aug, [facility] [id number] [address]- 9938 Jul, [facility] [id number] [address]- 8620 Jul, [facility] [id number] [address]- 2433 Jul, [facility] [id number] [address]- 9575 Jul, [facility] [id number] [address]- 8025 Jul, IMMUNIZATIONS No Known Immunizations SOCIAL HISTORY Never Assessed REASON FOR VISIT Lab (walk-in)--[facility] PLAN OF CARE VITAL SIGNS MEDICATIONS Unknown Medications RESULTS No Results PROCEDURES Procedure Date Ordered Result Body Site HEPATIC FUNCTION PANEL Jul 22, 2017 RENAL FUNCTION PANEL Jul 22, 2017 VENIPUNCT, ROUTINE* Jul 22, 2017 INSTRUCTIONS MEDICATIONS ADMINISTERED No Known Medications [...]
--- OUTSIDE RECORDS SUMMARY | 2018-08-30 20:46 | XMS REPORT ---
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 Active 55200138 Problem Chronic kidney disease, stage 3 N18.3 Active 934739851 Problem CHI I (cervical intraepithelial neoplasia I) N87.0 Active 379731186 Problem Mild episode of recurrent major depressive disorder F33.0 Active 660600586 Problem Addiction to drug F19.20 Active 383324991 Problem Essential hypertension I10 Active 72204894 Problem Opioid use disorder, severe, in sustained remission F11.21 Active 59166608 Problem Irritable bowel syndrome with constipation K58.1 Active 870360083 ALLERGIES No Information ENCOUNTERS Encounter Location Date Diagnosis [facility] [address] [place] [address] Jan, [facility] [address] [place] [address] December, Opioid use disorder, severe, in sustained remission F11.21 [facility] [address] [facility] [id number] [address] December, Opioid use disorder, severe, in sustained remission F11.21 and 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 [facility] [address] [facility] [id number] [address] December, Opioid use disorder, severe, in early remission F11.21 [facility] [address] [place] [address] Dec, Opioid use disorder, severe, in sustained remission F11.21 [facility] [id number] [place] [address] 19620[address] 8817 Dec, 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 ; Unprotected sexual intercourse Z72.51 ; Pain of left thumb M79.645 ; Mixed hyperlipidemia E78.2 ; Gastroparesis K31.84 ; Essential hypertension I10 and Irritable bowel syndrome with constipation K58.1 [facility] [id number] [place] [address] 52653- 5330 Dec, Opioid use disorder, severe, in early remission F11.21 [facility] [address] [address] Oct, [facility] [address] [address] 4760 Oct, Opioid use disorder, severe, in early remission F11.21 [facility] [id number] [place] [address] 60383- 3594 Oct, [facility] [address] [address] Oct, Opioid use disorder, severe, in early remission F11.21 [facility] [id number] [place] [address] 73421- 1106 Oct, [facility] [id number] [place] [address] 07884- 7657 Oct, [facility] [address] [place] [address] Oct, Opioid use disorder, severe, in sustained remission F11.21 [facility] [id number] [place] [address] 862021- 2376 Sep, [facility] [id number] [place] [address] 51723- 7818 Sep, [facility] [address] [place] [address] 96[address] Sep, Opioid use disorder, severe, in early remission F11.21 [facility] [id number] [place] [address] 23449- 2871 Aug, Opioid use disorder, severe, in early remission F11.21 [facility] [id number] [place] [address] 59518- 7777 Jul, [facility] [id number] [place] [address] 97235- 1185 Jul, Chronic kidney disease, stage 3 N18.3 ; Dysthymia F34.1 and Opioid use disorder, severe, in sustained remission F11.21 [place] [address] [place] [address] Jul, Opioid use disorder, severe, in sustained remission F11.21 [facility] [id number] [place] [address] 02639- 0164 Jul, Long-term use of high-risk medication Z79.899 and Chronic kidney disease, stage 3 N18.3 [facility] [id number] [place] [address] 03621- 2597 Jul, Opioid use disorder, severe, in early remission F11.21 [facility] [address] [place] [address] 56419- 6176 Jul, [facility] [id number] [place] [address] 00426- 0226 Jun, [facility] [id number] [place] [address] 44522- 7520 Jun, [facility] [id number] [place] [address] 84338- 1054 Jun, Opioid use disorder, moderate, dependence F11.20 and Opioid use disorder, severe, in early remission F11.21 [facility] [id number] [place] [address] 74878- 8094 Jun, [facility] [id number] [place] [address] 97461- 6103 Jun, Long-term use of high-risk medication Z79.899 [facility] [id number] [place] [address] 48101- 0963 Jun, CHI I (cervical intraepithelial neoplasia I) N87.0 [facility] [id number] [place] [address] 56427- 4816 May, Opioid use disorder, severe, in early remission F11.21 [facility] [id number] [place] [address] 92846- 9707 18 May, 2017 Chronic kidney disease, stage 3 N18.3 [facility] [id number] [place] [address] 01769- 1067 14 May, 2017 Chronic kidney disease, stage 3 N18.3 [place] [address] [place] [address] 05 May, 2017 Opioid use disorder, severe, in sustained remission F11.21 [facility] [id number] [place] [address] 41888- 9387 Apr, LGSIL on Pap smear of cervix R87.612 [place] [address] [place] [address] Apr, [facility] [id number] [place] [address] 89625- 3341 Apr, Opioid use disorder, severe, in early remission F11.21 [facility] [id number] [place] [address] 94178- 6984 Apr, Opioid use disorder, severe, in early remission F11.21 [facility] [id number] [place] [address] 66696- 6173 Apr, Opioid use disorder, severe, in early remission F11.21 [place] [address] [place] [address] 99549- 3522 Apr, Opioid use disorder, severe, in early remission F11.21 [facility] [facility] [address] [address] 14 Apr, 2017 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 [facility] [id number] [place] [address] 08169- 3610 10 Apr, 2017 Opioid use disorder, severe, in early remission F11.21 [facility] [address] [place] [address] Apr, Opioid use disorder, severe, in sustained remission F11.21 [facility] [id number] [place] [address] 10950- 5323 Apr, Opioid use disorder, severe, in early remission F11.21 [facility] [id number] [place] [address] 99226- 1766 Apr, Mild episode of recurrent major depressive disorder F33.0 and Right acute serous otitis media, recurrence not specified H65.01 [facility] [id number] [place] [address] 59226- 2997 Mar, [facility] [id number] [place] [address] 14672- 1906 Mar, Opioid use disorder, severe, in early remission F11.21 [facility] [address] [place] [address] 60784- 2110 Mar, [facility] [address] [place] [address] Mar, Opioid use disorder, severe, in sustained remission F11.21 [facility] [address] [place] [address] Mar, Opioid use disorder, severe, in sustained remission F11.21 [facility] [id number] [place] [address] 58468- 5760 Mar, Opioid use disorder, severe, in early remission F11.21 [facility] [id number] [place] [address] 25535- 6231 Jan, Opioid use disorder, severe, in early remission F11.21 [facility] [address] [place] [address] Jan, Opioid use disorder, severe, in sustained remission F11.21 [facility] [address] [place] [address] Jan, Opioid use disorder, severe, in sustained remission F11.21 [facility] [address] [place] [id number] [place] [address] 63944- 2562 Jan, Opioid use disorder, severe, in early remission F11.21 [facility] [address] [place] [address] Jan, Opioid use disorder, severe, in sustained remission F11.21 [place] [id number] [place] [address] 54327- 2316 December, Opioid use disorder, severe, in early remission F11.21 [facility] [address] [place] [address] December, Opioid use disorder, severe, in sustained remission F11.21 [place] [id number] [place] [address] 83017- 6335 December, Routine gynecological examination Z01.419 and Chronic kidney disease, stage [address] [address]- 8909 December, Chronic kidney disease, stage 3 N18.3 ; 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 ; Gastroparesis K31.84 ; Essential hypertension I10 and Irritable bowel syndrome with constipation K58.1 [facility] [address] [place] [address] December, Opioid use disorder, severe, in sustained remission F11.21 [place] [id number] [place] [address] 46830- 1632 December, Opioid use disorder, severe, in early remission F11.21 [facility] [address] [place] [address] December, Opioid use disorder, severe, in sustained remission F11.21 [place] [id number] [place] [address] 30924- 3945 December, Encounter for therapeutic drug level monitoring Z51.81 [facility] [address] [place] [address] December, Opioid use disorder, severe, in sustained remission F11.21 [facility] [address] [place] [address] Dec, Opioid use disorder, severe, in sustained remission F11.21 [facility] [id number] [place] [address] 27022- 2401 Dec, Opioid use disorder, severe, in early remission F11.21 [facility] [address] 04149- 5716 Dec, [facility] [address] [place] [address] Dec, Opioid use disorder, severe, in sustained remission F11.21 [facility] [id number] [place] [address] 33766- 4692 Dec, Opioid use disorder, severe, in early remission F11.21 [facility] [address] [place] [address] Dec, Opioid use disorder, severe, in sustained remission F11.21 [facility] [address] 78333- 3789 Dec, 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 [facility] [id number] [place] [address] 52379- 7740 Dec, Opioid use disorder, severe, in sustained remission F11.21 ; Encounter for therapeutic drug level monitoring Z51.81 and Other terminal supervisor ( 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 Z79.899 [facility] [address] [place] [address] Oct, Opioid use disorder, severe, in sustained remission F11.21 [facility] [id number] [place] [address] 44433- 1915 Oct, Opioid use disorder, severe, in early remission F11.21 [facility] [id number] [place] [address] 77825- 1474 15 Oct, 2016 [facility] [address] [place] [address] 15 Oct, 2016 Opioid use disorder, severe, in sustained remission F11.21 [facility] [id number] [place] [address] 98328- 5620 15 Oct, 2016 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 [place] [address] 37199- 9913 14 Oct, 2016 Routine gynecological examination Z01.419 [place] [address] 16965- 0869 07 Oct, 2016 Opioid use disorder, severe, in early remission F11.21 [facility] [address] 11532- 3710 06 Oct, 2016 Opioid use disorder, severe, in early remission F11.21 [facility] [address] 98482- 7505 06 Oct, 2016 Opioid use disorder, severe, in early remission F11.21 [facility] [address] [place] [address] 02 Oct, 2016 Opioid use disorder, severe, in sustained remission F11.21 [facility] [id number] [place] [address] 42984- 2078 24 Oct, 2016 Opioid use disorder, severe, in early remission F11.21 [facility] [id number] [place] [address] 33211- 8960 Oct, Opioid use disorder, severe, in early remission F11.21 [facility] [address] [place] [address] Oct, Opioid use disorder, severe, in sustained remission F11.21 [facility] [address] 83619- 0188 Oct, Opioid use disorder, severe, in sustained remission F11.21 ; Encounter for therapeutic drug level monitoring Z51.81 and Other retirement ( 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 Z79.899 [facility] [address] [place] [address] 81537- 2311 16 Oct, 2016 [facility] [address] [place] [address] 14 Oct, 2016 Opioid use disorder, severe, in early remission F11.21 [facility] [address] [place] [address] 10 Oct, 2016 Opioid use disorder, severe, in early remission F11.21 [facility] [id number] [place] [address] 30349 2541 09 Oct, 2016 Opioid use disorder, severe, in early remission F11.21 [facility] [id number] [place] [address] 44844- 3206 08 Oct, 2016 [facility] [id number] [place] [address] 06201- 7163 Oct, [facility] [id number] [place] [address] 88050- 2128 Oct, [facility] [address] [place] [address] Oct, Opioid use disorder, severe, in early remission F11.21 [facility] [id number] [place] [address] 77306- 4584 Sep, Opioid use disorder, severe, in early remission F11.21 [facility] [address] [place] [address] Sep, Opioid use disorder, severe, in early remission F11.21 [facility] [id number] [place] [address] 01521- 254 Sep, Opioid use disorder, severe, in early remission F11.21 ; Other retirement (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 Z79.899 and Encounter for therapeutic drug level monitoring Z51.81 [facility] [id number] [place] [address] 45336- 4769 Sep, [facility] [id number] [place] [address] 60755- 3323 Sep, [facility] [address] [place] [address] 74167- 5861 Sep, Opioid use disorder, severe, in early remission F11.21 ; 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 ; Chronic kidney disease, stage 3 N18.3 ; Essential hypertension I10 and Irritable bowel syndrome with constipation K58.1 [facility] [address] [place] [address] Sep, Opioid use disorder, severe, in early remission F11.21 [facility] [address] [place] [address] Sep, Opioid use disorder, severe, in early remission F11.[address] 97903- 0204 Sep, Opioid use disorder, moderate, dependence F11.[address] 57607- 3291 Sep, Opioid use disorder, moderate, dependence F11.20 [facility] [address] [place] [address] Sep, Opioid use disorder, severe, in early remission F11.[address] 57276- 9136 Sep, Opioid use disorder, severe, in early remission F11.21 [facility] [address] [place] [address] Aug, Opioid use disorder, severe, in early remission F11.21 [facility] [address] [place] [address] 01337- 3111 Aug, Opioid use disorder, moderate, dependence F11.20 [facility] [address] [place] [address] 59524 -9563 Aug, Bug bite without infection, initial encounter W57.XXXA [address] 71347- 7612 Aug, Opioid use disorder, moderate, dependence F11.20 [facility] [address] [place] [address] [place] [address] Aug, [facility] [id number] [place] [address] 39913- 6196 Aug, Opioid use disorder, severe, in early remission F11.21 ; Other retirement (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 Z79.899 ; Encounter for therapeutic drug level monitoring Z51.81 and 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 [facility] [address] [place] [address] 15 Aug, 2016 [facility] [id number] [place] [address] 96577- 8663 Aug, Opioid use disorder, moderate, dependence F11.20 ; Other retirement (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 Z79.899 and Encounter for therapeutic drug level monitoring Z51.81 [facility] [id number] [place] [address] 71626- 3777 13 Aug, 2016 [facility] [id number] [place] [address] 04739- 6242 Aug, Non-intractable vomiting with nausea, unspecified vomiting type R11.[address] 84285- 2107 Aug, Opioid use disorder, moderate, dependence F11.20 and Non- intractable vomiting with nausea, unspecified vomiting type R11.2 [facility] [id number] [place] [address] 32553- 2451 Aug, [facility] [id number] [place] [address] 61015- 8853 Aug, Opioid use disorder, moderate, dependence F11.20 [facility] [id number] [place] [address] 73762- 8876 Aug, [facility] [id number] [place] [address] 54348- 3225 Jul, 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 and Opioid use disorder, moderate, dependence F11.20 [facility] [address] [place] [address]79[address]25[address] Jul, [facility] [id number] [place] [address] 39173- 9886 Jul, [facility] [address] 11691- 7512 Jul, [facility] [id number] [place] [address] 26678- 3130 Jul, Addiction to drug F19.20 and Chronic kidney disease, stage 3 N18.3 [facility] [address] [place] [address] Jul, Counseling on substance use and abuse Z71.89 [facility] [address] 41530- 5244 Jul, Chronic kidney disease, stage 3 N18.3 [facility] [id number] [place] [address] 13440- 3998 Jul, 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 ; Diarrhea, unspecified type R19.7 and Essential hypertension I10 [facility] [id number] [place] [address] 67153- 7690 Jul, [facility] [address] 18370- 6578 Jun, [facility] [id number] [place] [address] 73998- 2540 Jun, [facility] [address] 88931- 4451 Apr, 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 [facility] [id number] [place] [address] 79081- 1809 Apr, Sore throat and laryngitis J06.0 and Non-intractable vomiting with nausea, unspecified vomiting type R11.2 [facility] [id number] [place] [address] 22411- 8786 Apr, [facility] [address] [place] [address] 52226- 7280 Mar, [facility] [id number] [place] [address] 61387- 3682 Jan, [facility] [id number] [place] [address] 84345- 9374 Jan, [facility] [facility] [id number] [place] [address] 76153- 7498 Jan, [facility] [id number] [place] [address] 42178- 1294 December, 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 ; Gastroparesis K31.84 ; Mixed hyperlipidemia E78.2 ; Chronic kidney disease, stage 3 N18.3 ; Dysthymia F34.1 and Acute bilateral low back pain without sciatica M54.5 [facility] [id number] [place] [address] 71939- 3107 December, [facility] [id number] [place] [address] 68517- 0682 December, [facility] [id number] [place] [address] 01970- 2008 Aug, Depression F32.9 and Gastroparesis K31.84 [facility] [id number] [place] [address] 59299- 0274 Aug, Gastroparesis K31.84 [facility] [id number] [place] [address] 73469- 8693 Jul, Recurrent UTI N39.0 ; Chronic kidney disease, stage 3 N18.3 and 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 [place] [address] [place] [address] 28405- 6048 Jul, [facility] [id number] [place] [address] [id number] Jul, Dental examination Z01.20 and Dental caries K02.9 [address] [id number] [address] Jul, [facility] [id number] [place] [address]12 -6325 Jul, Dysuria R30.0 ; Urinary tract infection N39.0 and Nausea R11.0 [facility] [id number] [place] [address] 28112- 7311 Jun, Dysuria R30.0 [facility] [id number] [place] [address] 46532- 4580 Jun, Dysuria R30.0 [facility] [address] [address]11- 7310 Jun, Dysuria R30.0 [facility] [id number] [place] [address] 02350- 3918 Jun, [facility] [id number] [place] [address] 45816- 4187 Jun, Acute cystitis with hematuria N30.01 [facility] [id number] [place] [address] 16291- 6211 May, [facility] [id number] [place] [address] 57960- 4158 Apr, Diabetes mellitus without mention of complication, type I [ juvenile type], not stated as uncontrolled 250.01 ; Gastroparesis due to DM 250.60 ; Contraception management V25.9 and Renal insufficiency 593.9 [facility] [id number] [place] [address] 19721- 3014 Apr, [facility] [id number] [place] [address] 59888- 2384 Apr, [facility] [id number] [place] [address] 39617- 8734 Mar, [facility] [facility] [id number] [place] [address] 30317- 9576 Mar, Hyperlipidemia 272.4 and Hypertensive heart and chronic kidney disease, benign, without heart failure and with chronic kidney disease stage I through stage IV, or unspecified [id number] [place] [address] 02494- 0773 Mar, Hyperlipidemia 272.4 ; Hyponatremia 276.1 ; 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 ; Hypertensive heart and chronic kidney disease, benign, without heart failure and with chronic kidney disease stage I through stage IV, or unspecified 404.10 ; Proteinuria 791.0 and Chronic kidney disease (CKD), stage III (moderate) 585.3 [id number] [place] [address] 21686- 2327 Mar, [id number] [place] [address] 49415- 7639 Mar, Elevated blood sugar level 790.29 [id number] [place] [address] 88125- 1426 Mar, Low grade squamous intraepithelial lesion (LGSIL) on cervical Pap smear 795.03 [id number] [place] [address] 43928- 4515 Mar, Amenorrhea 626.0 [id number] [place] [address] 07781- 0629 Jan, Amenorrhea 626.0 ; Routine gynecological examination V72.31 and Screen for STD (sexually transmitted disease) V74.5 [id number] [place] [address] 67026- 0143 Jan, Amenorrhea 626.0 [id number] [place] [address] 95895- 6527 08 Jan, 2015 Routine gynecological examination V72.31 ; Screen for STD ( sexually transmitted disease) V74.5 ; Pap test, as part of routine gynecological examination V76.2 ; Breast cancer screening V76.10 and Amenorrhea 626.0 [id number] [place] [address] 21515- 5119 December, [facility] [place] [facility] [address] [id number] [place] [address] 2765 14 Dec, 2014 [facility] [place] [facility] [address] [id number] [place] [address]- 9586 Dec, [facility] [place] [facility] [address] [id number] [place] [address]- 9954 30 Oct, 2014 [facility] [place] [facility] [address] [id number] [place] [address]- 2132 Oct, [facility] [place] [facility] [address] [id number] [place] [address]- 9991 Oct, [facility] [place] [facility] [address] [id number] [place] [address]- 3233 Oct, [facility] [place] [facility] [address] [facility] [id number] [place] [address]- 7033 Oct, [facility] [place] [facility] [address] [facility] [id number] [place] [address]- 6515 Oct, [facility] [place] [facility] [address] [id number] [place] [address]- 7932 Oct, [facility] [place] [facility] [address] [facility] [id number] [place] [address]- 4934 Oct, [facility] [place] [facility] [address] [id number] [place] [address]- 7207 Oct, [facility] [place] [facility] [address] [id number] [place] [address]- 5901 Oct, [facility] [place] [facility] [address] [id number] [place] [address]- 5018 Oct, [facility] [place] [facility] [address] [id number] [place] [address]- 0550 Sep, [facility] [place] [facility] [address] [id number] [address] 4823 Sep, [facility] [place] [facility] [address] [id number] [place] [address]- 9658 16 Sep, 2014 [facility] [place] [facility] [address] [id number] [place] [address]- 4971 Sep, [facility] [place] [facility] [address] [id number] [place] [address]- 6010 16 Sep, 2014 [facility] [place] [facility] [address] [id number] [place] [address]- 0946 Sep, [facility] [place] [facility] [address] [id number] [place] [address]- 3414 15 Sep, 2014 [facility] [place] [facility] [address] [id number] [place] [address]- 1299 Sep, [facility] [place] [facility] [address] [id number] [place] [address]- 1488 Sep, [facility] [place] [facility] [address] [id number] [place] [address]- 5356 Sep, [facility] [place] [facility] [address] [id number] [place] [address]- 8425 Sep, [facility] [place] [facility] [address] [id number] [place] [address]- 7458 Sep, [facility] [place] [facility] [address] [id number] [place] [address]- 3540 Sep, [facility] [place] [facility] [address] [id number] [place] [address]- 3301 Sep, [facility] [place] [facility] [address] [id number] [place] [address]- 9349 Sep, [facility] [place] [facility] [address] [id number] [place] [address]- 5430 Sep, [facility] [place] [facility] [address] [id number] [place] [address]- 4424 Sep, [facility] [place] [facility] [address] [id number] [place] [address]- 9795 Sep, [facility] [place] [facility] [address] [id number] [place] [address]- 7131 Sep, [facility] [place] [facility] [address] [id number] [place] [address]- 3583 Sep, [facility] [place] [facility] [address] [id number] [place] [address]- 7559 Aug, [facility] [place] [facility] [address] [id number] [place] [address]- 0493 Aug, [facility] [place] [facility] [address] [id number] [place] [address]- 2880 Aug, [facility] [place] [facility] [address] [id number] [place] [address]- 9826 Aug, [facility] [place] [facility] [address] [id number] [place] [address]- 5641 Aug, [facility] [place] [facility] [address] [id number] [place] [address]- 2298 Aug, [facility] [place] [facility] [address] [id number] [place] [address]- 9384 Aug, [facility] [place] [facility] [address] [id number] [place] [address]- 3926 Aug, [facility] [place] [facility] [address] [id number] [place] [address]- 3109 Aug, [facility] [place] [facility] [address] [id number] [address]- 3488 Aug, [facility] [place] [facility] [address] [id number] [place] [address]- 8842 Aug, [facility] [place] [facility] [address] [id number] [place] [address]- 3038 Aug, [facility] [place] [facility] [address] [id number] [place] [address]- 4628 Jul, [facility] [place] [facility] [address] [id number] [place] [address]- 0970 Jul, [facility] [place] [facility] [address] [id number] [place] [address]- 7172 Jul, [facility] [place] [facility] [address] [id number] [place] [address]- 5844 Jul, [facility] [place] [facility] [address] [id number] [place] [address]- 0585 Jul, [facility] [place] [facility] [address] [id number] [place] [address]- 2368 Jul, [facility] [place] [facility] [address] [id number] [place] [address]- 2053 Jul, [facility] [place] [facility] [address] [id number] [place] [address]- 0366 Jul, [facility] [place] [facility] [address] [facility] [id number] [place] [address]- 1191 Jul, [facility] [place] [facility] [address] [id number] [place] [address]- 0514 Jul, [facility] [place] [facility] [address] [facility] [id number] [place] [address]- 0362 31 Jun, 2014 [facility] [place] [facility] [address] [facility] [id number] [place] [address]- 1709 31 Jun, 2014 [facility] [place] [facility] [address] [id number] [place] [address]- 6590 30 Jun, 2014 [facility] [place] [facility] [address] [id number] [place] [address]- 3899 30 Jun, 2014 [facility] [place] [facility] [address] [id number] [place] [address]- 4675 30 Jun, 2014 [facility] [place] [facility] [address] [facility] [id number] [place] [address]- 6630 30 Jun, 2014 [facility] [place] [facility] [address] [facility] [id number] [place] [address]- 6435 15 Jun, 2014 [facility] [place] [facility] [address] [id number] [place] [address]- 1483 15 Jun, 2014 [facility] [place] [facility] [address] [id number] [place] [address]- 1962 May, [facility] [place] [facility] [address] [id number] [place] [address]- 8619 May, [facility] [place] [facility] [address] [id number] [place] [address]- 8852 May, [facility] [place] [facility] [address] [id number] [place] [address]- 8841 18 May, 2014 [facility] [place] [facility] [address] [id number] [place] [address]- 1237 May, [facility] [place] [facility] [address] [id number] [place] [address]- 6713 May, [facility] [place] [facility] [address] [id number] [place] [address]- 2984 May, [facility] [place] [facility] [address] [id number] [place] [address]- 3314 May, [facility] [place] [facility] [address] [id number] [place] [address]- 1510 Apr, [facility] [place] [facility] [address] [id number] [place] [address]- 2578 Apr, [facility] [place] [facility] [address] [id number] [place] [address]- 1589 Apr, [facility] [place] [facility] [address] [id number] [place] [address]- 3873 Apr, [facility] [place] [facility] [address] [id number] [place] [address]- 3720 Mar, [facility] [place] [facility] [address] [id number] [place] [address]- 5784 Mar, [facility] [place] [facility] [address] [id number] [place] [address]- 6498 Mar, [facility] [place] [facility] [address] [id number] [place] [address]- 8587 Mar, [facility] [place] [facility] [address] [id number] [place] [address]- 9239 Mar, [facility] [place] [facility] [address] [id number] [place] [address]- 9338 Mar, [facility] [place] [facility] [address] [id number] [place] [address]- 4429 Jan, [facility] [place] [facility] [address] [id number] [place] [address]- 2571 Jan, [facility] [place] [facility] [address] [id number] [place] [address]- 1396 Jan, [facility] [place] [facility] [address] [id number] [place] [address]- 9212 Jan, [facility] [place] [facility] [address] [id number] [place] [address]- 1920 Jan, [facility] [place] [facility] [address] [id number] [place] [address]- 2133 Jan, [facility] [place] [facility] [address] [id number] [place] [address]- 6846 Jan, [facility] [place] [facility] [address] [id number] [place] [address]- 9868 Jan, [facility] [place] [facility] [address] [id number] [place] [address]- 3146 Jan, [facility] [place] [facility] [address] [id number] [place] [address]- 5011 Jan, [facility] [place] [facility] [address] [id number] [place] [address]- 4884 Jan, [facility] [place] [facility] [address] [id number] [place] [address]- 8580 Jan, [facility] [place] [facility] [address] [id number] [place] [address]- 0017 December, [facility] [place] [facility] [address] [id number] [place] [address]- 7420 December, [facility] [place] [facility] [address] [id number] [place] [address]- 7461 December, [facility] [place] [facility] [address] [id number] [place] [address]- 9953 December, [facility] [place] [facility] [address] [id number] [place] [address]- 6174 Dec, [facility] [place] [facility] [address] [id number] [place] [address]- 9006 Dec, [facility] [place] [facility] [address] [id number] [place] [address]- 6722 Dec, [facility] [place] [facility] [address] [id number] [place] [address]- 2815 Dec, [facility] [place] [facility] [address] [id number] [place] [address]- 8497 Dec, [facility] [place] [facility] [address] [id number] [place] [address]- 3707 Dec, [facility] [place] [facility] [address] [id number] [place] [address]- 8197 Dec, [facility] [place] [facility] [address] [id number] [place] [address]- 8069 Dec, [facility] [place] [facility] [address] [id number] [place] [address]- 4597 Dec, [facility] [place] [facility] [address] [id number] [place] [address]- 3644 Dec, [facility] [place] [facility] [address] [id number] [place] [address]- 9145 Dec, [facility] [place] [facility] [address] [id number] [place] [address]- 5504 Dec, [facility] [place] [facility] [address] [id number] [place] [address]- 2800 Dec, [facility] [place] [facility] [address] [id number] [place] [address]- 9573 Dec, [facility] [place] [facility] [address] [id number] [place] [address]- 8135 Oct, [facility] [place] [facility] [address] [id number] [place] [address]- 8258 Oct, [facility] [place] [facility] [address] [id number] [place] 7488 Oct, [facility] [place] [facility] [address] [id number] [place] [address]- 5858 Oct, [facility] [place] [facility] [address] [id number] [place] [address]- 1581 Oct, [facility] [place] [facility] [address] [id number] [place] [address]- 8410 Oct, [facility] [place] [facility] [address] [id number] [place] [id number] Oct, [facility] [place] [facility] [address] [id number] [place] [address]- 0204 Oct, [facility] [place] [facility] [address] [id number] [place] [address]- 1224 Oct, [facility] [place] [facility] [address] [id number] [place] [address]- 5329 Oct, [facility] [place] [facility] [address] [id number] [place] [address]- 3025 Sep, [facility] [place] [facility] [address] [id number] [place] [address]- 8756 Sep, [facility] [place] [facility] [address] [id number] [place] [address]- 4059 Sep, [facility] [place] [facility] [address] [id number] [place] [address] [address]25 Sep, [facility] [address] [address] 4806 Sep, [facility] [address] [address] 6882 Sep, [facility] [address] [address]- 5722 Aug, [facility] [address] [address] 7073 Aug, [facility] [id number] [place] [address] 67266- 6368 Jul, [facility] [address] [address]- 0216 Jul, [facility] [address] 1189 Jul, [facility] [address] [address]- 5064 Jul, [facility] [id number] [address] [address] Jul, IMMUNIZATIONS No Known Immunizations SOCIAL HISTORY Never Assessed REASON FOR VISIT Suboxone RX (07/23-08/19) PLAN OF CARE VITAL SIGNS MEDICATIONS Medication [...]
--- OUTSIDE RECORDS SUMMARY | 2018-08-30 20:46 | XMS REPORT ---
Author Author YANNICK JOSUE [facility] e[employer] Address Unknown Phone Unavailable Care Team Providers Care Butt Presser Name Role Phone YANNICK JOSUE Unavailable Allergies, Adverse Reactions, Alerts Substance Reaction Event Type Penicillin V Potassium rash Drug Allergy Cipro nausea and vomiting Drug Allergy Bactrim DS rash Drug Allergy Problems Problem Type Condition Code Onset Dates Condition Status Problem Screening for hypertension V81.1 Active Problem Abdominal pain, epigastric 789.06 Active Problem Urinary frequency 788.41 Active Problem Recurrent UTI N39.0 Active Problem Chronic kidney disease, stage 3 N18.3 Active Problem Gastroparesis K31.84 Active Problem Gastroparesis due to DM 250.60 Active Problem Unspecified essential hypertension 401.9 Active Problem 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 Active Problem Dysuria R30.0 Active Assessment Gastroparesis K31.84 Active Assessment Depression F32.9 Active Problem Unspecified constipation 564.00 Active Problem Abdominal pain, generalized 789.07 Active Problem Elevated blood pressure reading without diagnosis of hypertension 796.2 Active Problem Diabetes mellitus without mention of complication, type I [juvenile type], not stated as uncontrolled 250.01 Active Problem Health examination of defined subpopulation V70.5 Active Problem Unspecified renal failure 586 Active Medications Medication Code System Code Instructions Start Date End Date Status Dosage Zofran ODT [facility] [address]-80 4 MG Orally 3 times a day, prn Sep 17, 2014 take 1 tablets by Oral route every 8 hours PRN Nausea or Vomiting Lexapro [facility] [address]-03 10 MG Orally Once a day Aug 24, 2015 1 tablet Fish Oil [facility] [address]-53 1000 MG Orally Once a day 2 capsule Tylenol 8 Hour [facility] [address]-20 not defined Lovastatin [facility] [address]-25 20 MG Orally Once a day March 30, 2015 1 tablet with a meal Vitamin B12 [facility] [address]-46 not defined Vitamin D (Ergocalciferol) [facility] [address]-33 94807 UNIT Orally TWICE WEEKLY X8 WKS-AFTER 8 WEEKS TAKEN OTC VITAMIN D 2000 IU March 30, 2015 1 capsule Humalog [facility] [address]-59 100 UNIT/ML Subcutaneous pump as per pump inject Units by Subcutaneous route every hour per insulin pump Enalapril Maleate [facility] [address]-57 5 MG Orally Twice a day 1 tablet Procedures Procedure Coding System Code Date Office Visit, Est Pt., Level 4 CPT-4 69314 Aug 24, 2015 Vital Signs Date/Time: Aug 24, 2015 Temperature 97.5 F Weight 173.0 lbs Height 66 in BMI 27.92 Index Blood Pressure Diastolic 84 mmHg Blood Pressure Systolic 118 mmHg Cardiac Monitoring Heart Rate 82 bpm Results No Known Results Summary Purpose eClinical[employer] Submission
--- OUTSIDE RECORDS SUMMARY | 2018-08-30 20:46 | XMS REPORT ---
Author Author CARLOTTA MIR Organization [facility] Address [address] [place] [address] Care Team Providers Care Culturist Name Role Phone ADEOLA CARLOTTA Unavailable PROBLEMS Type Condition ICD9-CM Code [id number] Code Onset Dates Condition Status SNOMED Code Problem Essential hypertension I10 Active 04574478 Problem Addiction to drug F19.20 Active 233306793 Problem Diarrhea, unspecified type R19.7 Active 22931463 Problem Right acute serous otitis media, recurrence not specified H65.01 Active 197863476 Problem Mild episode of recurrent major depressive disorder F33.0 Active 077159424 Problem Encounter for therapeutic drug level monitoring Z51.81 Active 460905892 Problem Other emt intermediate (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 Z79.899 Active 148377729 Problem Opioid use disorder, severe, in sustained remission F11.21 Active 77618813 Problem Irritable bowel syndrome with constipation K58.1 Active 365888590 Problem Recurrent UTI N39.0 Active 633059509 Problem Gastroparesis K31.84 Active 910918515 Problem Acute bilateral low back pain without sciatica M54.5 Active 532804153 Problem Chronic kidney disease, stage 3 N18.3 Active 145242824 Problem Dysthymia F34.1 Active 16898696 Problem 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 Active 45488682 Problem Mixed hyperlipidemia E78.2 Active 115975201 ALLERGIES No Information SOCIAL HISTORY Never Assessed PLAN OF CARE Activity Details Follow Up 1 Week Reason: VITAL SIGNS MEDICATIONS Unknown Medications RESULTS No Results PROCEDURES Procedure Date Ordered Result Body Site Alcohol and/or drug services Aug 29, 2016 IMMUNIZATIONS No Known Immunizations MEDICAL (GENERAL) HISTORY Type Description Date Medical History Type 1 Diabetes mellitus Medical History hx of hypertension Medical History gastroparesis Medical History hx of renal insufficiency 09/2014 Medical History Unspecified renal failure Medical History Gastroparesis due to DM Surgical History oral surgery at age 16 Hospitalization History Gastroperisis 2011
--- OUTSIDE RECORDS SUMMARY | 2018-08-30 20:46 | XMS REPORT ---
Author Author ALVIN CARMEN Organization [facility] Address [address] [place] [address] Care Team Providers Care Regional Planner Name Role Phone ALVIN CARMEN Unavailable PROBLEMS Type Condition ICD9-CM Code CHR98-EH Code Onset Dates Condition Status SNOMED Code Problem Essential hypertension I10 Active 84102878 Problem Addiction to drug F19.20 Active 569983146 Problem Diarrhea, unspecified type R19.7 Active 13588975 Problem Right acute serous otitis media, recurrence not specified H65.01 Active 023222623 Problem Mild episode of recurrent major depressive disorder F33.0 Active 751732913 Problem Encounter for therapeutic drug level monitoring Z51.81 Active 028366635 Problem Other technician terminal and repeater (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 Z79.899 Active 205511602 Problem Opioid use disorder, severe, in sustained remission F11.21 Active 68500931 Problem Irritable bowel syndrome with constipation K58.1 Active 147192679 Problem Recurrent UTI N39.0 Active 158079970 Problem Gastroparesis K31.84 Active 345742164 Problem Acute bilateral low back pain without sciatica M54.5 Active 071090155 Problem Chronic kidney disease, stage 3 N18.3 Active 648171977 Problem Dysthymia F34.1 Active 83928226 Problem 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 Active 47588510 Problem Mixed hyperlipidemia E78.2 Active 906235278 ALLERGIES No Information SOCIAL HISTORY Never Assessed PLAN OF CARE VITAL SIGNS MEDICATIONS Medication Instructions Dosage Frequency Start Date End Date Duration Status Suboxone 8-2 MG Sublingual Once a day 1.5 film under the tongue and allow to dissolve 24h Aug, 12 days Active RESULTS No Results PROCEDURES No Known procedures IMMUNIZATIONS No Known Immunizations MEDICAL (GENERAL) HISTORY Type Description Date Medical History Type 1 Diabetes mellitus Medical History hx of hypertension Medical History gastroparesis Medical History hx of renal insufficiency 09/2014 Medical History Unspecified renal failure Medical History Gastroparesis due to DM Surgical History oral surgery at age 16 Hospitalization History Gastroperisis 2011
--- OUTSIDE RECORDS SUMMARY | 2018-08-30 20:46 | XMS REPORT ---
Author Author CARLOTTA MIR Organization [facility] Address [address] [place] [address] Care Team Providers Care Home Theater Specialist Name Role Phone NAMSHAMARCARLOTTA Unavailable PROBLEMS Type Condition ICD9-CM Code CAV21-UV Code Onset Dates Condition Status SNOMED Code Problem Essential hypertension I10 Active 74603390 Problem Addiction to drug F19.20 Active 043796590 Problem Diarrhea, unspecified type R19.7 Active 75030345 Problem Mild episode of recurrent major depressive disorder F33.0 Active 242571712 Problem Right acute serous otitis media, recurrence not specified H65.01 Active 244773169 Problem Other skilled nursing (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 Z79.899 Active 298976879 Problem Encounter for therapeutic drug level monitoring Z51.81 Active 988557559 Problem Opioid use disorder, severe, in sustained remission F11.21 Active 89762081 Problem Irritable bowel syndrome with constipation K58.1 Active 104029562 Problem 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 Active 95373978 Problem Gastroparesis K31.84 Active 991049375 Problem Acute bilateral low back pain without sciatica M54.5 Active 830630932 Problem Chronic kidney disease, stage 3 N18.3 Active 749926071 Problem Dysthymia F34.1 Active 27448567 Problem Recurrent UTI N39.0 Active 443179838 Problem Mixed hyperlipidemia E78.2 Active 977590871 ALLERGIES Unknown Allergies SOCIAL HISTORY No smoking Hx information available PLAN OF CARE VITAL SIGNS MEDICATIONS Unknown Medications RESULTS No Results PROCEDURES Procedure Date Ordered Related Diagnosis Body Site Alcohol and/or drug services Aug 21, 2016 IMMUNIZATIONS No Known Immunizations
--- OUTSIDE RECORDS SUMMARY | 2018-08-30 20:46 | XMS REPORT ---
Author Author CARLOTTA MIR [facility] Address [address] [place] [address] Care Team Providers Care Political Science Professor Name Role Phone NAMSHAMARCARLOTTA Unavailable PROBLEMS Type Condition ICD9-CM Code [id number] Code Onset Dates Condition Status SNOMED Code Problem Essential hypertension I10 Active 18068533 Problem Addiction to drug F19.20 Active 529887379 Problem Diarrhea, unspecified type R19.7 Active 70322233 Problem CHI I (cervical intraepithelial neoplasia I) N87.0 Active 002893016 Problem Right acute serous otitis media, recurrence not specified H65.01 Active 935641896 Problem Irritable bowel syndrome with constipation K58.1 Active 422810948 Problem Encounter for therapeutic drug level monitoring Z51.81 Active 356353285 Problem Mild episode of recurrent major depressive disorder F33.0 Active 982862940 Problem Opioid use disorder, severe, in sustained remission F11.21 Active 09599554 Problem Long-term use of high-risk medication Z79.899 Active 917424059 Problem Recurrent UTI N39.0 Active 920466424 Problem Gastroparesis K31.84 Active 234145038 Problem Acute bilateral low back pain without sciatica M54.5 Active 338832226 Problem 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 Active 25375566 Problem Mixed hyperlipidemia E78.2 Active 365196789 Problem Chronic kidney disease, stage 3 N18.3 Active 459149978 Problem Dysthymia F34.1 Active 00866756 ALLERGIES No Information SOCIAL HISTORY Never Assessed PLAN OF CARE Activity Details Follow Up 1 Week Reason: VITAL SIGNS MEDICATIONS Unknown Medications RESULTS No Results PROCEDURES Procedure Date Ordered Result Body Site Psychotherapy, patient &/family, 30 minutes, established patient February 01, 2017 IMMUNIZATIONS No Known Immunizations MEDICAL (GENERAL) HISTORY Type Description Date Medical History Type 1 Diabetes mellitus Medical History hx of hypertension Medical History gastroparesis Medical History hx of renal insufficiency 09/2014 Medical History Unspecified renal failure Medical History Gastroparesis due to DM Surgical History oral surgery at age 16 Hospitalization History Gastroperisis 2012
--- OUTSIDE RECORDS SUMMARY | 2018-08-30 20:46 | XMS REPORT ---
Author Author CARLOTTA MIR Organization [facility] Address [address] [place] [address] Care Team Providers Care Protein Scientist Name Role Phone CARLOTTA MIR Unavailable PROBLEMS Type Condition ICD9-CM Code GQW31-GY Code Onset Dates Condition Status SNOMED Code Problem Essential hypertension I10 Active 25042945 Problem Addiction to drug F19.20 Active 185221841 Problem Diarrhea, unspecified type R19.7 Active 11639446 Problem Right acute serous otitis media, recurrence not specified H65.01 Active 886805022 Problem Mild episode of recurrent major depressive disorder F33.0 Active 168125904 Problem Encounter for therapeutic drug level monitoring Z51.81 Active 871981242 Problem Other termite treater helper (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 Z79.899 Active 482628615 Problem Opioid use disorder, severe, in sustained remission F11.21 Active 83779490 Problem Irritable bowel syndrome with constipation K58.1 Active 251090614 Problem Recurrent UTI N39.0 Active 126067442 Problem Gastroparesis K31.84 Active 947019919 Problem Acute bilateral low back pain without sciatica M54.5 Active 314331503 Problem Chronic kidney disease, stage 3 N18.3 Active 839688033 Problem Dysthymia F34.1 Active 69860898 Problem 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
--- OUTSIDE RECORDS SUMMARY | 2018-08-30 20:47 | XMS REPORT ---
Author Author ALVIN CARMEN [facility] Address [address] [place] [address] Care Team Providers Care Mission Planner Name Role Phone NELLAALVIN Unavailable PROBLEMS Type Condition ICD9-CM Code NTA80-UQ Code Onset Dates Condition Status SNOMED Code Problem Essential hypertension I10 Active 02678803 Problem Addiction to drug F19.20 Active 125957573 Problem Diarrhea, unspecified type R19.7 Active 56281951 Problem Right acute serous otitis media, recurrence not specified H65.01 Active 600650626 Problem Mild episode of recurrent major depressive disorder F33.0 Active 614159853 Problem Encounter for therapeutic drug level monitoring Z51.81 Active 163675550 Problem Other alf (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 Z79.899 Active 083547636 Problem Opioid use disorder, severe, in sustained remission F11.21 Active 52663283 Problem Irritable bowel syndrome with constipation K58.1 Active 811590941 Problem Recurrent UTI N39.0 Active 361199826 Problem Gastroparesis K31.84 Active 893788720 Problem Acute bilateral low back pain without sciatica M54.5 Active 384759792 Problem Chronic kidney disease, stage 3 N18.3 Active 295691767 Problem Dysthymia F34.1 Active 19688180 Problem 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 Active 27321284 Problem Mixed hyperlipidemia E78.2 Active 184479095 ALLERGIES Substance Reaction Event Type Date Status Penicillin V Potassium rash Drug Allergy Sep, Active Cipro nausea and vomiting Drug Allergy Sep, Active Bactrim DS rash Drug Allergy Sep, Active SOCIAL HISTORY No smoking Hx information available PLAN OF CARE Activity Details Follow Up 3 Weeks Reason:Suboxone f/u VITAL SIGNS Height 66 in 2016-09-06 Weight 180 lbs 2016-09-06 Temperature 98.0 degrees Fahrenheit 2016-09-06 Heart Rate 104 bpm 2016-09-06 Respiratory Rate 18 2016-09-06 BMI 29.05 kg/m2 2016-09-06 Blood pressure systolic 144 mmHg 2016-09-06 Blood pressure diastolic 100 mmHg 2016-09-06 MEDICATIONS Medication Instructions Dosage Frequency Start Date End Date Duration Status Shaye ODT 4 MG Orally 3 times a day, prn take 1 tablets by Oral route every 8 hours PRN Nausea or Vomiting Sep, Active Lovastatin 20 mg Orally Once a day 1 tablet with a meal 24h Mar, 30 day(s) Active Humalog 100 UNIT/ML Subcutaneous pump as per pump inject Units by Subcutaneous route every hour per insulin pump Active Triamcinolone Acetonide 0.025 % Externally Twice a day apply thin layer to inner left thigh 12h Aug, 07 days Active Vitamin B12 Active Enalapril Maleate 5 mg Orally Twice a day 1 tablet 12h Active Suboxone 8-2 MG Sublingual Once a day 1 film under the tongue and allow to dissolve 24h Aug, 2 doses Active Fish Oil 1000 MG Orally Once a day 2 capsule 24h Active Tylenol 8 Hour Active Vitamin D (Ergocalciferol) 30041 UNIT Orally TWICE WEEKLY X8 WKS-AFTER 8 WEEKS TAKEN OTC VITAMIN D 2000 IU 1 capsule Mar, Active Glucagon Emergency 1 MG as directed Apr, Active RESULTS Name Result Date Reference Range URINE DRUG SCREEN (IN HOUSE) 2016-09-06 Lot # [id number] Exp date 03/2018 Control + COCAINE neg AMPH neg MTD neg THC neg OPIATE neg BENZO neg PCP neg BAR neg OXY neg MAMP neg TCA n/a BUP + MDMA neg PROCEDURES Procedure Date Ordered Related Diagnosis Body Site DRUG TEST PRSMV DIR OPT OBS Sep 06, 2016 Office Visit, Est Pt., Level 3 Sep 06, 2016 IMMUNIZATIONS No Known Immunizations
--- OUTSIDE RECORDS SUMMARY | 2018-08-30 20:47 | XMS REPORT ---
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 Active 47543536 Problem Chronic kidney disease, stage 3 N18.3 Active 906293135 Problem CHI I (cervical intraepithelial neoplasia I) N87.0 Active 516369129 Problem Mild episode of recurrent major depressive disorder F33.0 Active 873827454 Problem Addiction to drug F19.20 Active 301097834 Problem Essential hypertension I10 Active 83474667 Problem Opioid use disorder, severe, in sustained remission F11.21 Active 79322515 Problem Irritable bowel syndrome with constipation K58.1 Active 780261811 ALLERGIES No Information ENCOUNTERS Encounter Location Date Diagnosis [facility] [address] [place] [address] December, [facility] [id number] [place] [address] 13170- 0158 December, [facility] [id number] [place] [address] 81905- 7577 December, Opioid use disorder, severe, in sustained remission F11.21 and 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 [facility] [id number] [address] December, Opioid use disorder, severe, in early remission F11.21 [facility] [address] [place] [address] Dec, Opioid use disorder, severe, in sustained remission F11.21 [facility] [address] 22175[address] 6844 Dec, 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 ; Unprotected sexual intercourse Z72.51 ; Pain of left thumb M79.645 ; Mixed hyperlipidemia E78.2 ; Gastroparesis K31.84 ; Essential hypertension I10 and Irritable bowel syndrome with constipation K58.1 [facility] [address] 37751- 9014 Dec, Opioid use disorder, severe, in early remission F11.21 [facility] [address] 74613- 3458 Oct, [facility] [address] 45141- 8352 Oct, Opioid use disorder, severe, in early remission F11.21 [facility] [address] 07752- 4997 Oct, [facility] [address] 21534- 8450 Oct, Opioid use disorder, severe, in early remission F11.21 [facility] [address] 43047- 3529 Oct, [facility] [address] 00340- 2919 Oct, [facility] [address] [place] [address] Oct, Opioid use disorder, severe, in sustained remission F11.21 [facility] [address] 73632- 5962 Sep, [facility] [address] 05327- 1025 Sep, [facility] [address] [place] [address] 6460 Sep, Opioid use disorder, severe, in early remission F11.21 [facility] [id number] [place] [address] 89650- 2086 Aug, Opioid use disorder, severe, in early remission F11.21 [facility] [id number] [place] [address] 18709- 5853 Jul, [facility] [address] 29550- 5035 Jul, Chronic kidney disease, stage 3 N18.3 ; Dysthymia F34.1 and Opioid use disorder, severe, in sustained remission F11.21 [place] [address] [place] [address] Jul, Opioid use disorder, severe, in sustained remission F11.21 [place] [id number] [place] [address] 89168- 5962 Jul, Long-term use of high-risk medication Z79.899 and Chronic kidney disease, stage 3 N18.3 [place] [id number] [place] [address] 82204- 1606 Jul, Opioid use disorder, severe, in early remission F11.21 [place] [address] [place] [address] 85271- 7275 Jul, [facility] [id number] [place] [address] 36083- 0793 Jun, [facility] [id number] [place] [address] 57983- 6370 Jun, [facility] [id number] [place] [address] 20654- 4232 Jun, Opioid use disorder, moderate, dependence F11.20 and Opioid use disorder, severe, in early remission F11.21 [facility] [id number] [place] [address] 20558- 2718 Jun, [place] [id number] [place] [address] 18214- 6369 Jun, Long-term use of high-risk medication Z79.899 [place] [id number] [place] [address] 32579- 7383 Jun, CHI I (cervical intraepithelial neoplasia I) N87.0 [place] [address] 54380- 2615 May, Opioid use disorder, severe, in early remission F11.21 [place] [id number] [place] [address] 67111- 2311 18 May, 2017 Chronic kidney disease, stage 3 N18.3 [place] [id number] [place] [address] 63465- 5192 14 May, 2017 Chronic kidney disease, stage 3 N18.3 [place] [address] [place] [address] 05 May, 2017 Opioid use disorder, severe, in sustained remission F11.21 [place] [id number] [place] [address] 67044- 4706 Apr, LGSIL on Pap smear of cervix R87.612 [facility] [address] [place] [address] Apr, [place] [id number] [place] [address] 92014- 6645 Apr, Opioid use disorder, severe, in early remission F11.21 [facility] [id number] [place] [address] 84191- 3974 Apr, Opioid use disorder, severe, in early remission F11.21 [place] [id number] [place] [address] 91288- 7349 Apr, Opioid use disorder, severe, in early remission F11.21 [place] [id number] [place] [address] 14933- 8954 Apr, Opioid use disorder, severe, in early remission F11.21 [place] [address] [address] 0507 14 Apr, 2017 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 [facility] [id number] [place] [address] 90287- 5133 10 Apr, 2017 Opioid use disorder, severe, in early remission F11.21 [facility] [address] [place] [address] Apr, Opioid use disorder, severe, in sustained remission F11.21 [facility] [id number] [place] [address] 72500- 2150 Apr, Opioid use disorder, severe, in early remission F11.21 [facility] [id number] [place] [address] 57816- 6077 Apr, Mild episode of recurrent major depressive disorder F33.0 and Right acute serous otitis media, recurrence not specified H65.01 [facility] [id number] [place] [address] 20841- 5664 Mar, [facility] [id number] [place] [address] 75572- 0375 Mar, Opioid use disorder, severe, in early remission F11.21 [facility] [id number] [place] [address] 95250- 5902 Mar, [facility] [address] [place] [address] Mar, Opioid use disorder, severe, in sustained remission F11.21 [facility] [address] [place] [address] Mar, Opioid use disorder, severe, in sustained remission F11.21 [facility] [id number] [place] [address] 74288- 7655 Mar, Opioid use disorder, severe, in early remission F11.21 [facility] [id number] [place] [address] 22806- 4263 Jan, Opioid use disorder, severe, in early remission F11.21 [facility] [address] [place] [address] Jan, Opioid use disorder, severe, in sustained remission F11.21 [facility] [address] [place] [address] Jan, Opioid use disorder, severe, in sustained remission F11.21 [facility] [id number] [place] [address] 01767- 8859 Jan, Opioid use disorder, severe, in early remission F11.21 [facility] [address] [place] [address] Jan, Opioid use disorder, severe, in sustained remission F11.[address] 26093- 4206 December, Opioid use disorder, severe, in early remission F11.21 [facility] [address] [place] [address] December, Opioid use disorder, severe, in sustained remission F11.21 [place] [id number] [place] [address] 62548- 6467 December, Routine gynecological examination Z01.419 and Chronic kidney disease, stage [address] 57861- 3284 December, Chronic kidney disease, stage 3 N18.3 ; 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 ; Gastroparesis K31.84 ; Essential hypertension I10 and Irritable bowel syndrome with constipation K58.1 [facility] [address] [place] [address] December, Opioid use disorder, severe, in sustained remission F11.21 [place] [id number] [place] [address] 50719- 1559 December, Opioid use disorder, severe, in early remission F11.21 [facility] [address] [place] [address] December, Opioid use disorder, severe, in sustained remission F11.21 [place] [id number] [place] [address] 17831- 8465 December, Encounter for therapeutic drug level monitoring Z51.81 [facility] [address] [place] [address] December, Opioid use disorder, severe, in sustained remission F11.21 [facility] [address] [place] [address] Dec, Opioid use disorder, severe, in sustained remission F11.21 [facility] [id number] [place] [address] 54666- 5497 Dec, Opioid use disorder, severe, in early remission F11.21 [facility] [address] 49147- 4310 Dec, [facility] [address] [place] [address] Dec, Opioid use disorder, severe, in sustained remission F11.21 [facility] [address] [place] [address] 76426- 0588 Dec, Opioid use disorder, severe, in early remission F11.21 [facility] [address] [place] [address] Dec, Opioid use disorder, severe, in sustained remission F11.21 [facility] [address] [place] [id number] [place] [address] 32041- 6172 Dec, 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 [facility] [address] [place] [address] [place] [address] 26726- 9386 Dec, Opioid use disorder, severe, in sustained remission F11.21 ; Encounter for therapeutic drug level monitoring Z51.81 and Other intermediate ( 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 Z79.899 [facility] [address] [place] [address] Oct, Opioid use disorder, severe, in sustained remission F11.21 [facility] [id number] [place] [address] 90557- 3856 Oct, Opioid use disorder, severe, in early remission F11.21 [facility] [address] [place] [address] [place] [address] 48940- 9352 15 Oct, 2016 [facility] [address] [place] [address] 15 Oct, 2016 Opioid use disorder, severe, in sustained remission F11.21 [facility] [id number] [place] [address] 74769- 2314 15 Oct, 2016 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 [place] [address] 97653- 1912 14 Oct, 2016 Routine gynecological examination Z01.419 [place] [address] 502505- 8975 07 Oct, 2016 Opioid use disorder, severe, in early remission F11.21 [place] [address] 82794- 7337 06 Oct, 2016 Opioid use disorder, severe, in early remission F11.21 [place] [address] 90938- 5731 06 Oct, 2016 Opioid use disorder, severe, in early remission F11.21 [facility] [address] [place] [address] 02 Oct, 2016 Opioid use disorder, severe, in sustained remission F11.21 [place] [id number] [place] [address] 89025- 2325 24 Oct, 2016 Opioid use disorder, severe, in early remission F11.21 [place] [id number] [place] [address] 89632- 5499 Oct, Opioid use disorder, severe, in early remission F11.21 [facility] [address] [place] [address] Oct, Opioid use disorder, severe, in sustained remission F11.21 [place] [address] 42667- 6878 20 Oct, 2016 Opioid use disorder, severe, in sustained remission F11.21 ; Encounter for therapeutic drug level monitoring Z51.81 and Other box loader ( 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 Z79.899 [facility] [address] [place] [address] 05272- 3036 16 Oct, 2016 [facility] [address] [place] [address] 14 Oct, 2016 Opioid use disorder, severe, in early remission F11.21 [facility] [address] [place] [address] 10 Oct, 2016 Opioid use disorder, severe, in early remission F11.21 [facility] [id number] [place] [address] 68604- 2930 09 Oct, 2016 Opioid use disorder, severe, in early remission F11.21 [facility] [id number] [place] [address] 95744- 5206 08 Oct, 2016 [facility] [id number] [place] [address] 03560- 3791 Oct, [facility] [id number] [place] [address] 43019- 9155 Oct, [facility] [address] [place] [address] Oct, Opioid use disorder, severe, in early remission F11.21 [facility] [id number] [place] [address] 78256- 7448 Sep, Opioid use disorder, severe, in early remission F11.21 [facility] [address] [place] [address] Sep, Opioid use disorder, severe, in early remission F11.21 [facility] [id number] [place] [address] 21890- 3348 Sep, Opioid use disorder, severe, in early remission F11.21 ; Other intermediate (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 Z79.899 and Encounter for therapeutic drug level monitoring Z51.81 [facility] [id number] [place] [address] 76221- 6363 Sep, [facility] [id number] [place] [address] 70248- 3264 Sep, [facility] [address] [place] [address] [place] [address] 26637- 0001 Sep, Opioid use disorder, severe, in early remission F11.21 ; 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 ; Chronic kidney disease, stage 3 N18.3 ; Essential hypertension I10 and Irritable bowel syndrome with constipation K58.1 [facility] [address] [place] [address] Sep, Opioid use disorder, severe, in early remission F11.21 [facility] [address] [place] [address] Sep, Opioid use disorder, severe, in early remission F11.[address] 81268- 0463 Sep, Opioid use disorder, moderate, dependence F11.[address] 39763- 3558 Sep, Opioid use disorder, moderate, dependence F11.20 [facility] [address] [place] [address] Sep, Opioid use disorder, severe, in early remission F11.[address] 31038- 4974 Sep, Opioid use disorder, severe, in early remission F11.21 [facility] [address] [place] [address] Aug, Opioid use disorder, severe, in early remission F11.[address] 06782- 9698 Aug, Opioid use disorder, moderate, dependence F11.20 [facility] [address] [place] [address] 46985 -4916 Aug, Bug bite without infection, initial encounter W57.XXXA [address] 64530- 9228 Aug, Opioid use disorder, moderate, dependence F11.20 [facility] [address] [place] [address] Aug, [facility] [id number] [place] [address] 71248- 9988 Aug, Opioid use disorder, severe, in early remission F11.21 ; Other intermediate (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 Z79.899 ; Encounter for therapeutic drug level monitoring Z51.81 and 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 [facility] [address] [place] [address] 15 Aug, 2016 [facility] [address] 58091- 6889 Aug, Opioid use disorder, moderate, dependence F11.20 ; Other intermediate (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 Z79.899 and Encounter for therapeutic drug level monitoring Z51.81 [facility] [id number] [place] [address] 60704- 0776 13 Aug, 2016 [facility] [address] 29807- 6219 Aug, Non-intractable vomiting with nausea, unspecified vomiting type R11.[address] 23335- 3806 Aug, Opioid use disorder, moderate, dependence F11.20 and Non- intractable vomiting with nausea, unspecified vomiting type R11.2 [facility] [id number] [place] [address] 30472- 9348 Aug, [facility] [id number] [place] [address] 34224- 5648 Aug, Opioid use disorder, moderate, dependence F11.20 [facility] [address] 97256- 8450 Aug, [facility] [address] 25427- 3418 Jul, 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 and Opioid use disorder, moderate, dependence F11.20 [facility] [address] [place] [address] Jul, [facility] [id number] [place] [address] 30313- 2712 Jul, [facility] [address] 47060- 0312 Jul, [facility] [address] 39522- 7035 Jul, Addiction to drug F19.20 and Chronic kidney disease, stage 3 N18.3 [facility] [address] [place] [address] Jul, Counseling on substance use and abuse Z71.89 [facility] [address] 35571- 8530 Jul, Chronic kidney disease, stage 3 N18.3 [facility] [address] 42107- 8548 Jul, 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 ; Diarrhea, unspecified type R19.7 and Essential hypertension I10 [facility] [id number] [place] [address] 78673- 5827 Jul, [facility] [address] 58436- 3580 Jun, [facility] [id number] [place] [address] 00298- 9300 Jun, [facility] [address] 83668- 5233 Apr, 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 [facility] [address] 68992- 5356 Apr, Sore throat and laryngitis J06.0 and Non-intractable vomiting with nausea, unspecified vomiting type R11.2 [facility] [address] 83025- 5626 Apr, [facility] [address] [address] 7140 Mar, [facility] [id number] [place] [address] 88080- 7924 Jan, [facility] [id number] [place] [address] 80649- 7648 Jan, [facility] [id number] [place] [address] 43020- 4116 Jan, [facility] [id number] [place] [address] 52474- 4299 December, 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 ; Gastroparesis K31.84 ; Mixed hyperlipidemia E78.2 ; Chronic kidney disease, stage 3 N18.3 ; Dysthymia F34.1 and Acute bilateral low back pain without sciatica M54.5 [facility] [id number] [place] [address] 15124- 8212 December, [facility] [id number] [place] [address] 21047- 3875 December, [facility] [id number] [place] [address] 19944- 4374 Aug, Depression F32.9 and Gastroparesis K31.84 [facility] [id number] [place] [address] 79257- 5305 Aug, Gastroparesis K31.84 [facility] [address] [place] [address] 62531- 5094 Jul, Recurrent UTI N39.0 ; Chronic kidney disease, stage 3 N18.3 and 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 [facility] [address] [place] [address] 25703- 0800 Jul, [facility] [address] [address] Jul, Dental examination Z01.20 and Dental caries K02.9 [facility] [address] [place] [address] 57183- 8520 Jul, [facility] [id number] [place] [address] 39059 -2422 Jul, Dysuria R30.0 ; Urinary tract infection N39.0 and Nausea R11.0 [facility] [id number] [place] [address] 63161- 8228 Jun, Dysuria R30.0 [facility] [id number] [place] [address] 21002- 5077 Jun, Dysuria R30.0 [facility] [address] 75849- 7923 Jun, Dysuria R30.0 [facility] [id number] [place] [address] 01941- 4625 Jun, [facility] [id number] [place] [address] 28969- 7744 Jun, Acute cystitis with hematuria N30.01 [facility] [id number] [place] [address] 50116- 1048 May, [facility] [id number] [place] [address] 80143- 3329 Apr, Diabetes mellitus without mention of complication, type I [ juvenile type], not stated as uncontrolled 250.01 ; Gastroparesis due to DM 250.60 ; Contraception management V25.9 and Renal insufficiency 593.9 [facility] [id number] [place] [address] [phone] [id number] Apr, [facility] [id number] [place] [address] [phone]- [phone] Apr, [facility] [id number] [place] [address] [phone] Mar, [facility] [id number] [place] [address] [phone]- [phone] Mar, Hyperlipidemia 272.4 and Hypertensive heart and chronic kidney disease, benign, without heart failure and with chronic kidney disease stage I through stage IV, or unspecified 404.10 [address] [id number] [place] [address] [phone]- [phone] Mar, Hyperlipidemia 272.4 ; Hyponatremia 276.1 ; 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 ; Hypertensive heart and chronic kidney disease, benign, without heart failure and with chronic kidney disease stage I through stage IV, or unspecified 404.10 ; Proteinuria 791.0 and Chronic kidney disease (CKD), stage III (moderate) 585.3 [address] [id number] [place] [address] 20218- 8980 Mar, [place] [id number] [place] [address] 03179- 7878 Mar, Elevated blood sugar level 790.29 [address] [id number] [place] [address] 28727- 5367 Mar, Low grade squamous intraepithelial lesion (LGSIL) on cervical Pap smear 795.03 [address] [id number] [place] [address] 82226- 9919 Mar, Amenorrhea 626.0 [place] [id number] [place] [address] 16421- 3419 Jan, Amenorrhea 626.0 ; Routine gynecological examination V72.31 and Screen for STD (sexually transmitted disease) V74.5 [id number] [place] [address] 32476- 5703 Jan, Amenorrhea 626.0 [address] [id number] [place] [address] 70501- 8805 08 Jan, 2015 Routine gynecological examination V72.31 ; Screen for STD ( sexually transmitted disease) V74.5 ; Pap test, as part of routine gynecological examination V76.2 ; Breast cancer screening V76.10 and Amenorrhea 626.0 [address] [id number] [place] [address] [place] [address] December, [facility] [place] [facility] [address] [id number] [place] [address] 3102 14 Dec, 2014 [facility] [place] [facility] [address] [id number] [place] [address]- 5967 Dec, [facility] [place] [facility] [address] [id number] [place] [address]- 5397 30 Oct, 2014 [facility] [place] [facility] [address] [id number] [place] [address]- 1535 Oct, [facility] [place] [facility] [address] [id number] [place] [address]- 9533 Oct, [facility] [place] [facility] [address] [id number] [place] [address]- 8625 Oct, [facility] [place] [facility] [address] [id number] [place] [address]- 1146 Oct, [facility] [place] [facility] [address] [id number] [place] [address]- 5338 Oct, [facility] [place] [facility] [address] [id number] [place] [address]- 1862 Oct, [facility] [place] [facility] [address] [id number] [place] [address]- 6536 Oct, [facility] [place] [facility] [address] [id number] [place] [address]- 6474 Oct, [facility] [place] [facility] [address] [id number] [place] [address]- 7885 Oct, [facility] [place] [facility] [address] [id number] [place] [address]- 5811 Oct, [facility] [place] [facility] [address] [id number] [place] [address]- 9878 Sep, [facility] [place] [facility] [address] [id number] [place] [address]- 0268 Sep, [facility] [place] [facility] [address] [id number] [place] [address]- 4368 Sep, [facility] [place] [facility] [address] [id number] [place] [address]- 1420 Sep, [facility] [place] [facility] [address] [id number] [place] [address]- 7004 Sep, [facility] [place] [facility] [address] [id number] [place] [address]- 1056 Sep, [facility] [place] [facility] [address] [id number] [place] [address]- 6542 Sep, [facility] [place] [facility] [address] [id number] [place] [address]- 9676 Sep, [facility] [place] [facility] [address] [id number] [place] [address]- 2217 Sep, [facility] [place] [facility] [address] [id number] [place] [address]- 3046 Sep, [facility] [place] [facility] [address] [id number] [place] [address]- 4616 Sep, [facility] [place] [facility] [address] [id number] [place] [address]- 0572 Sep, [facility] [place] [facility] [address] [id number] [place] [address]- 4888 Sep, [facility] [place] [facility] [address] [id number], [place] [address]- 2674 Sep, [facility] [place] [facility] [address] [id number] [place] [address]- 3658 Sep, [facility] [place] [facility] [address] [id number] [place] [address]- 9926 Sep, [facility] [place] [facility] [address] [id number] [place] [address]- 9685 Sep, [facility] [place] [facility] [address] [id number] [place] [address]- 3899 Sep, [facility] [place] [facility] [address] [id number] [place] [address]- 9616 Sep, [facility] [place] [facility] [address] [id number] [place]990 Sep, [facility] [place] [facility] [address] [id number] [place] [address]- 4887 Aug, [facility] [place] [facility] [address] [id number] [place] [address]- 7135 Aug, [facility] [place] [facility] [address] [id number] [place] [address]- 3354 Aug, [facility] [place] [facility] [address] [id number] [place] [address]- 4654 Aug, [facility] [place] [facility] [address] [id number] [place] [address]- 4306 Aug, [facility] [place] [facility] [address] [id number] [place] [address]- 5136 Aug, [facility] [place] [facility] [address] [id number] [place] [address]- 6650 Aug, [facility] [place] [facility] [address] [id number] [place] [address]- 0910 Aug, [facility] [place] [facility] [address] [id number] [place] [address]- 3788 Aug, [facility] [place] [facility] [address] [id number] [place] [address]- 3499 Aug, [facility] [place] [facility] [address] [id number] [place] [address]- 1182 Aug, [facility] [place] [facility] [address] [id number] [place] [address]- 3746 Aug, [facility] [place] [facility] [address] [id number] [place] [address]- 7852 Jul, [facility] [place] [facility] [address] [id number] [place] [address]- 7686 Jul, [facility] [place] [facility] [address] [id number] [place] [address]- 6304 Jul, [facility] [place] [facility] [address] [id number] [place] [address]- 9494 Jul, [facility] [place] [facility] [address] [id number] [place] [address]- 7253 Jul, [facility] [place] [facility] [address] [id number] [place] [address]- 6384 Jul, [facility] [place] [facility] [address] [id number] [place] [address]- 2175 Jul, [facility] [place] [facility] [address] [id number] [place] [address]- 5526 Jul, [facility] [place] [facility] [address] [id number] [place] [address]- 5864 Jul, [facility] [place] [facility] [address] [id number] [place] [address]- 7282 Jul, [facility] [place] [facility] [address] [id number] [place] [address]- 3150 Jun, [facility] [place] [facility] [address] [id number] [place] [address]- 8569 31 Jun, 2014 [facility] [place] [facility] [address] [id number] [place] [address]- 7167 30 Jun, 2014 [facility] [place] [facility] [address] [id number] [place] [address]- 6194 30 Jun, 2014 [facility] [place] [facility] [address] [id number] [place] [address]- 3659 30 Jun, 2014 [facility] [place] [facility] [address] [id number] [place] [address]- 9238 30 Jun, 2014 [facility] [place] [facility] [address] [id number] [place] [address]- 4924 15 Jun, 2014 [facility] [place] [facility] [address] [id number] [place] [address]- 0793 15 Jun, 2014 [facility] [place] [facility] [address] [id number] [place] [address]- 0223 May, [facility] [place] [facility] [address] [id number] [place] [address]- 3304 May, [facility] [place] [facility] [address] [id number] [place] [address]- 4249 May, [facility] [place] [facility] [address] [id number] [place] [address]- 7259 May, [facility] [place] [facility] [address] [id number] [place] [address]- 8018 May, [facility] [place] [facility] [address] [id number] [place] [address]- 5972 May, [facility] [place] [facility] [address] [id number] [place] [address]- 4022 May, [facility] [place] [facility] [address] [id number] [place] [address]- 7527 May, [facility] [place] [facility] [address] [id number] [place] [address]- 4014 Apr, [facility] [place] [facility] [address] [id number] [place] [address]- 0016 Apr, [facility] [place] [facility] [address] [id number] [place] [address]- 3508 Apr, [facility] [place] [facility] [address] [id number] [place] [address]- 2225 Apr, [facility] [place] [facility] [address] [id number] [place] [address]- 0120 Mar, [facility] [place] [facility] [address] [id number] [place] [address]- 2891 Mar, [facility] [place] [facility] [address] [id number] [place] [address]- 4945 Mar, [facility] [place] [facility] [address] [id number] [place] [address]- 4926 Mar, [facility] [place] [facility] [address] [id number] [place] [address]- 7861 Mar, [facility] [place] [facility] [address] [id number] [place] [address]- 0382 Mar, [facility] [place] [facility] [address] [id number] [place] [address]- 8149 Jan, [facility] [place] [facility] [address] [id number] [place] [address]- 6035 Jan, [facility] [place] [facility] [address] [id number] [place] [address]- 1054 Jan, [facility] [place] [facility] [address] [id number] [place] [address]- 2902 Jan, [facility] [place] [facility] [address] [id number] [place] [address]- 0265 Jan, [facility] [place] [facility] [address] [id number] [place] [address]- 0721 Jan, [facility] [place] [facility] [address] [id number] [place] [address]- 3967 Jan, [facility] [place] [facility] [address] [id number] [place] [address]- 3019 Jan, [facility] [place] [facility] [address] [id number] [place] [address]- 3562 Jan, [facility] [place] [facility] [address] [id number] [place] [address]- 1371 Jan, [facility] [place] [facility] [address] [id number] [place] [address]- 7306 Jan, [facility] [place] [facility] [address] [id number] [place] [address]- 7402 Jan, [facility] [place] [facility] [address] [id number] [place] [address]- 1188 December, [facility] [place] [facility] [address] [id number] [place] [address]- 1578 December, [facility] [place] [facility] [address] [id number] [place] [address]- 4232 December, [facility] [place] [facility] [address] [id number] [place] [address]- 3513 December, [facility] [place] [facility] [address] [id number] [place] [address]- 1590 Dec, [facility] [place] [facility] [address] [id number] [place] [address]- 2974 Dec, [facility] [place] [facility] [address] [id number] [place] [address]- 3249 Dec, [facility] [place] [facility] [address] [id number] [place] [address]- 3239 Dec, [facility] [place] [facility] [address] [id number] [place] [address]- 1595 Dec, [facility] [place] [facility] [address] [id number] [place] [address]- 3054 Dec, [facility] [place] [facility] [address] [id number] [place] [address]- 3524 Dec, [facility] [place] [facility] [address] [id number] [place] [address]- 7899 Dec, [facility] [place] [facility] [address] [id number] [place] [address]- 4496 Dec, [facility] [place] [facility] [address] [id number] [place] [address]- 7479 Dec, [facility] [place] [facility] [address] [id number] [place] [address]- 1722 Dec, [facility] [place] [facility] [address] [id number] [place] [address]- 0242 Dec, [facility] [place] [facility] [address] [id number] [place] [address]- 6123 Dec, [facility] [place] [facility] [address] [id number] [place] [address]- 3109 Dec, [facility] [place] [facility] [address] [id number] [place] [address]- 4800 Oct, [facility] [place] [facility] [address] [id number] [place] [address]- 1449 Oct, [facility] [place] [facility] [address] [id number] [place] [address]- 0308 Oct, [facility] [place] [facility] [address] [id number] [place] [address]- 3170 Oct, [facility] [place] [facility] [address] [id number] [place] [address]- 6200 Oct, [facility] [place] [facility] [address] [id number] [place] [address]- 4012 Oct, [facility] [place] [facility] [address] [facility] [id number] [place] [id number] Oct, [facility] [place] [facility] [address] [id number] [place] [address]- 5467 Oct, [facility] [place] [facility] [address] [id number] [place] [address]- 3334 Oct, [facility] [place] [facility] [address] [id number], [place] [address]- 2039 Oct, [facility] [place] [facility] [address] [id number] [place] [address]- 5989 Sep, [facility] [place] [facility] [address] [id number] [place] [address]- 1997 Sep, [facility] [place] [facility] [address] [id number] [place] [address]- 8698 Sep, [facility] [place] [facility] [address] [id number], [place] [address]- 7682 Sep, [facility] [address] [id number], [place] [address]- 5096 Sep, [facility] [address] [id number], [place] [address]- 5221 Sep, [facility] [id number] [address]- 7932 Aug, [facility] [id number], [place] [address]- 9420 Aug, [facility] [id number] [place] [address] 26538- 1491 Jul, [facility] [id number], [place] [address]- 0745 Jul, [facility] [id number] [address]- 3019 Jul, [facility] [address] [id number], [place] [address]- 8219 Jul, [facility] [address] [id number], [place] [address]- 3470 Jul, IMMUNIZATIONS No Known Immunizations SOCIAL HISTORY Never Assessed REASON FOR VISIT Dosage increase PLAN OF CARE VITAL SIGNS MEDICATIONS Unknown [...]
--- OUTSIDE RECORDS SUMMARY | 2018-08-30 20:47 | XMS REPORT ---
Author DESTINI Sanchez Organization [employer] Address Unknown Phone Unavailable Care Team Providers Care Obstetrics Teacher Name Role Phone DESTINI MOTLEY CP Unavailable Allergies, Adverse Reactions, Alerts Substance Reaction Event Type Penicillin V Potassium rash Drug Allergy Cipro nausea and vomiting Drug Allergy Bactrim DS rash Drug Allergy Problems Problem Type Condition Code Onset Dates Condition Status Problem Health examination of defined subpopulation V70.5 Active Problem Abdominal pain, generalized 789.07 Active Problem Unspecified constipation 564.00 Active Assessment Acute cystitis with hematuria N30.01 Active Problem Elevated blood pressure reading without diagnosis of hypertension 796.2 Active Problem Unspecified essential hypertension 401.9 Active Problem Abdominal pain, epigastric 789.06 Active Problem Gastroparesis due to DM 250.60 Active Problem Unspecified renal failure 586 Active Problem Diabetes mellitus without mention of complication, type I [juvenile type], not stated as uncontrolled 250.01 Active Problem Urinary frequency 788.41 Active Problem Screening for hypertension V81.1 Active Medications Medication Code System Code Instructions Start Date End Date Status Dosage Humalog [facility] [address]-69 100 UNIT/ML Subcutaneous pump as per pump inject Units by Subcutaneous route every hour per insulin pump Fish Oil [facility] [address]-48 1000 MG Orally Once a day 2 capsule Vitamin D (Ergocalciferol) [facility] [address]-82 66017 UNIT Orally TWICE WEEKLY X8 WKS-AFTER 8 WEEKS TAKEN OTC VITAMIN D 2000 IU March 30, 2015 1 capsule Reglan [facility] [address]-12 5 MG Orally 4 times a day prn Apr 28, 2015 1 tablet Lovastatin [facility] [address]-53 20 MG Orally Once a day March 30, 2015 1 tablet with a meal Macrobid [facility] [address]-93 100 MG Orally every 12 hrs Jun 15, 2015Jun 1 capsule with food Enalapril Maleate [facility] [address]-75 5 MG Orally Twice a day 1 tablet Procedures Procedure Coding System Code Date URINALYSIS, AUTO, W/O SCOPE CPT-4 79399 Jun 15, 2015 Office Visit, Est Pt., Level 3 CPT-4 11281 Jun 15, 2015 URINE CULTURE/COLONY COUNT CPT-4 27355 Jun 15, 2015 Vital Signs Date/Time: Jun 15, 2015 Temperature 98.0 F Weight 174.0 lbs Height 66 in BMI 28.08 Index Blood Pressure Diastolic 70 mmHg Blood Pressure Systolic 116 mmHg Cardiac Monitoring Heart Rate 80 bpm Results Name Result Date Reference Range Unit Abnormality Flag UA LONG DIP (IN HOUSE) Summary Purpose [employer] Submission
--- OUTSIDE RECORDS SUMMARY | 2018-08-30 20:47 | XMS REPORT ---
Author Author ALVIN CARMEN [facility] Address [address] [place] [address] Care Team Providers Care Pharmacy Services Director Name Role Phone NELLA ALVIN Unavailable PROBLEMS Type Condition ICD9-CM Code [id number] Code Onset Dates Condition Status SNOMED Code Problem Essential hypertension I10 Active 86773346 Problem Addiction to drug F19.20 Active 464891301 Problem Diarrhea, unspecified type R19.7 Active 53907027 Problem Right acute serous otitis media, recurrence not specified H65.01 Active 149398068 Problem Mild episode of recurrent major depressive disorder F33.0 Active 621151787 Problem Encounter for therapeutic drug level monitoring Z51.81 Active 044635557 Problem Other chcf (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 Z79.899 Active 329694190 Problem Opioid use disorder, severe, in sustained remission F11.21 Active 32338256 Problem Irritable bowel syndrome with constipation K58.1 Active 338758013 Problem Recurrent UTI N39.0 Active 971819464 Problem Gastroparesis K31.84 Active 794649052 Problem Acute bilateral low back pain without sciatica M54.5 Active 739576936 Problem Chronic kidney disease, stage 3 N18.3 Active 774954756 Problem Dysthymia F34.1 Active 06311626 Problem 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 Active 43694298 Problem Mixed hyperlipidemia E78.2 Active 032710242 ALLERGIES Substance Reaction Event Type Date Status Penicillin V Potassium rash Drug Allergy Oct, Active Cipro nausea and vomiting Drug Allergy Oct, Active Bactrim DS rash Drug Allergy Oct, Active SOCIAL HISTORY Never Assessed PLAN OF CARE Activity Details Follow Up 4 Weeks Reason:Suboxone f/u VITAL SIGNS Height 66 in 2016-10-22 Weight 177 lbs 2016-10-22 Temperature 97.6 degrees Fahrenheit 2016-10-22 Heart Rate 86 bpm 2016-10-22 Respiratory Rate 18 2016-10-22 BMI 28.57 kg/m2 2016-10-22 Blood pressure systolic 138 mmHg 2016-10-22 Blood pressure diastolic 88 mmHg 2016-10-22 MEDICATIONS Medication Instructions Dosage Frequency Start Date End Date Duration Status Lovastatin 20 mg Orally Once a day 1 tablet with a meal 24h Mar, 30 day(s) Active Vitamin D (Ergocalciferol) 39994 UNIT Orally TWICE WEEKLY X8 WKS-AFTER 8 WEEKS TAKEN OTC VITAMIN D 2000 IU 1 capsule Mar, Active Vitamin B12 Active Suboxone 8-2 MG Sublingual Once a day 1.5 film under the tongue and allow to dissolve 24h Aug, 16 days Active Fish Oil 1000 MG Orally Once a day 2 capsule 24h Active Tylenol 8 Hour Active Zofran ODT 4 MG Orally 3 times a day, prn take 1 tablets by Oral route every 8 hours PRN Nausea or Vomiting Sep, Active Glucagon Emergency 1 MG as directed Apr, Active Humalog 100 UNIT/ML Subcutaneous pump as per pump inject Units by Subcutaneous route every hour per insulin pump Active Dicyclomine HCl 10 mg Orally 2 times a day prn 1 tablet Sep, Oct, 30 days Active Enalapril Maleate 10 mg Orally twice a day 1 tablet 12h Active RESULTS Name Result Date Reference Range URINE DRUG SCREEN (IN HOUSE) Lot # [id number] Exp date 03/2018 Control + COCAINE neg AMPH neg MTD neg THC neg OPIATE neg BENZO neg PCP neg BAR neg OXY neg MAMP neg TCA n/a BUP + MDMA neg PROCEDURES Procedure Date Ordered Result Body Site DRUG TEST PRSMV DIR OPT OBS Oct 22, 2016 IMMUNIZATIONS No Known Immunizations MEDICAL (GENERAL) HISTORY Type Description Date Medical History Type 1 Diabetes mellitus Medical History hx of hypertension Medical History gastroparesis Medical History hx of renal insufficiency 09/2014 Medical History Unspecified renal failure Medical History Gastroparesis due to DM Surgical History oral surgery at age 16 Hospitalization History Gastroperisis 2011
--- OUTSIDE RECORDS SUMMARY | 2018-08-30 20:48 | XMS REPORT ---
Author Author YANNICK JOSUE [facility] Address [address] [place] [address] Care Team Providers Care Cpa Tax Name Role Phone YANNICK JOSUE Unavailable PROBLEMS Type Condition ICD9-CM Code SOV12-PO Code Onset Dates Condition Status SNOMED Code Problem Diarrhea, unspecified type R19.7 Active 50151883 Problem Other correction (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 Z79.899 Active 806264745 Problem Addiction to drug F19.20 Active 790025298 Problem CHI I (cervical intraepithelial neoplasia I) N87.0 Active 390539537 Problem Right acute serous otitis media, recurrence not specified H65.01 Active 548880700 Problem Irritable bowel syndrome with constipation K58.1 Active 920042195 Problem Encounter for therapeutic drug level monitoring Z51.81 Active 751750428 Problem Mild episode of recurrent major depressive disorder F33.0 Active 097806728 Problem Opioid use disorder, severe, in sustained remission F11.21 Active 63287617 Problem Recurrent UTI N39.0 Active 625833990 Problem Chronic kidney disease, stage 3 N18.3 Active 551389781 Problem Acute bilateral low back pain without sciatica M54.5 Active 455591578 Problem Dysthymia F34.1 Active 39413003 Problem 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
--- OUTSIDE RECORDS SUMMARY | 2018-08-30 20:48 | XMS REPORT ---
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
--- OUTSIDE RECORDS SUMMARY | 2018-08-30 20:48 | XMS REPORT ---
Author Author DEYSI VARMA Organization [facility] Address [address] [place] [address] Care Team Providers Care Turbo Electric Operator Name Role Phone VARMADEYSI Hunt Unavailable PROBLEMS Type Condition ICD9-CM Code QDB97-XD Code Onset Dates Condition Status SNOMED Code Problem Essential hypertension I10 Active 43253840 Problem Addiction to drug F19.20 Active 950258229 Problem Diarrhea, unspecified type R19.7 Active 13032859 Problem Mild episode of recurrent major depressive disorder F33.0 Active 327952314 Problem Right acute serous otitis media, recurrence not specified H65.01 Active 062257368 Problem Other penitentiary (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 Z79.899 Active 056336057 Problem Encounter for therapeutic drug level monitoring Z51.81 Active 436357499 Problem Opioid use disorder, severe, in sustained remission F11.21 Active 65869487 Problem Irritable bowel syndrome with constipation K58.1 Active 500951063 Problem 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 Active 03215574 Problem Gastroparesis K31.84 Active 579314155 Problem Acute bilateral low back pain without sciatica M54.5 Active 310952943 Problem Chronic kidney disease, stage 3 N18.3 Active 137887033 Problem Dysthymia F34.1 Active 52542204 Problem Recurrent UTI N39.0 Active 420002666 Problem Mixed hyperlipidemia E78.2 Active 265548587 ALLERGIES Substance Reaction Event Type Date Status Penicillin V Potassium rash Drug Allergy Aug, Active Cipro nausea and vomiting Drug Allergy Aug, Active Bactrim DS rash Drug Allergy Aug, Active SOCIAL HISTORY No smoking Hx information available PLAN OF CARE Activity Details Follow Up prn Reason: VITAL SIGNS Height 66 in 2016-08-27 Weight 178.4 lbs 2016-08-27 Temperature 97.2 degrees Fahrenheit 2016-08-27 Heart Rate 104 bpm 2016-08-27 Respiratory Rate 20 2016-08-27 BMI 28.79 kg/m2 2016-08-27 Blood pressure systolic 118 mmHg 2016-08-27 Blood pressure diastolic 78 mmHg 2016-08-27 MEDICATIONS Medication Instructions Dosage Frequency Start Date End Date Duration Status Shaye ODT 4 MG Orally 3 times a day, prn take 1 tablets by Oral route every 8 hours PRN Nausea or Vomiting Sep, Active Lovastatin 20 mg Orally Once a day 1 tablet with a meal 24h Mar, 30 day(s) Active Enalapril Maleate 5 mg Orally Twice a day 1 tablet 12h Active Glucagon Emergency 1 MG as directed Apr, Active Vitamin B12 Active Humalog 100 UNIT/ML Subcutaneous pump as per pump inject Units by Subcutaneous route every hour per insulin pump Active Triamcinolone Acetonide 0.025 % Externally Twice a day apply thin layer to inner left thigh 12h Aug, 07 days Active Vitamin D (Ergocalciferol) 69672 UNIT Orally TWICE WEEKLY X8 WKS-AFTER 8 WEEKS TAKEN OTC VITAMIN D 2000 IU 1 capsule Mar, Active Tylenol 8 Hour Active Fish Oil 1000 MG Orally Once a day 2 capsule 24h Active Suboxone 8-2 MG Sublingual Once a day 08/26-09/06 dosing. 0.5 film under the tongue and allow to dissolve Aug, Active RESULTS No Results PROCEDURES Procedure Date Ordered Related Diagnosis Body Site Office Visit, Est Pt., Level 3 Aug 27, 2016 IMMUNIZATIONS No Known Immunizations
--- OUTSIDE RECORDS SUMMARY | 2018-08-30 20:48 | XMS REPORT ---
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
--- OUTSIDE RECORDS SUMMARY | 2018-08-30 20:48 | XMS REPORT ---
Author Author YANNICK JOSUE Organization [facility] Address [address] [place] [address] Care Team Providers Care Chlorobutadiene Scrubber Operator Name Role Phone YANNICK JOSUE Unavailable PROBLEMS Type Condition ICD9-CM Code ANO30-AX Code Onset Dates Condition Status SNOMED Code Problem Essential hypertension I10 Active 88039210 Problem Addiction to drug F19.20 Active 586890703 Problem Diarrhea, unspecified type R19.7 Active 92075333 Problem Right acute serous otitis media, recurrence not specified H65.01 Active 159588555 Problem Mild episode of recurrent major depressive disorder F33.0 Active 964231620 Problem Encounter for therapeutic drug level monitoring Z51.81 Active 786459258 Problem Other buttermaker continuous churn (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 Z79.899 Active 021284525 Problem Opioid use disorder, severe, in sustained remission F11.21 Active 73361350 Problem Irritable bowel syndrome with constipation K58.1 Active 335156782 Problem Recurrent UTI N39.0 Active 756444837 Problem Gastroparesis K31.84 Active 405553448 Problem Acute bilateral low back pain without sciatica M54.5 Active 922367767 Problem Chronic kidney disease, stage 3 N18.3 Active 022051741 Problem Dysthymia F34.1 Active 93337802 Problem 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
--- OUTSIDE RECORDS SUMMARY | 2018-08-30 20:48 | XMS REPORT ---
Author Author YANNICK JOSUE [facility] Address [address] [place] [address] Care Team Providers Care Physical Medicine Teacher Name Role Phone BYAFredy YANNICK Unavailable PROBLEMS Type Condition ICD9-CM Code OID75-ER Code Onset Dates Condition Status SNOMED Code Problem Essential hypertension I10 Active 78048679 Problem Addiction to drug F19.20 Active 539822307 Problem Diarrhea, unspecified type R19.7 Active 57187065 Problem CHI I (cervical intraepithelial neoplasia I) N87.0 Active 753860172 Problem Right acute serous otitis media, recurrence not specified H65.01 Active 576533185 Problem Irritable bowel syndrome with constipation K58.1 Active 553600055 Problem Encounter for therapeutic drug level monitoring Z51.81 Active 953965289 Problem Mild episode of recurrent major depressive disorder F33.0 Active 538481102 Problem Opioid use disorder, severe, in sustained remission F11.21 Active 08339803 Problem Long-term use of high-risk medication Z79.899 Active 606470394 Problem Recurrent UTI N39.0 Active 901701668 Problem Gastroparesis K31.84 Active 342450186 Problem Acute bilateral low back pain without sciatica M54.5 Active 118458645 Problem 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 Active 21831480 Problem Mixed hyperlipidemia E78.2 Active 696246792 Problem Chronic kidney disease, stage 3 N18.3 Active 502354646 Problem Dysthymia F34.1 Active 98273029 ALLERGIES Substance Reaction Event Type Date Status Penicillin V Potassium rash Drug Allergy Apr, Active Cipro nausea and vomiting Drug Allergy Apr, Active Bactrim DS rash Drug Allergy Apr, Active ENCOUNTERS Encounter Location Date Diagnosis [facility] [address] [place] [address] Dec, [facility] [address] [facility] [id number] [address] Dec, [facility] [address] [address] Dec, Opioid use disorder, severe, in early remission F11.21 [facility] [id number] [place] [address] 55955- 1486 Oct, [facility] [id number] [place] [address] 61349- 0666 Oct, Opioid use disorder, severe, in early remission F11.21 [facility] [id number] [place] [address] 90516- 8046 Oct, [facility] [id number] [place] [address] 32430- 9576 Oct, Opioid use disorder, severe, in early remission F11.21 [facility] [id number] [place] [address] 36291- 1216 Oct, [facility] [id number] [place] [address] 791156- 3646 Oct, [facility] [address] [place] [address] Oct, Opioid use disorder, severe, in sustained remission F11.21 [facility] [address] [address] Sep, [facility] [address] [address] Sep, [facility] [address] [address] 0[address] Sep, Opioid use disorder, severe, in early remission F11.21 [facility] [id number] [place] [address] 69655- 2936 Aug, Opioid use disorder, severe, in early remission F11.21 [facility] [address] [address] 4516 Jul, [facility] [id number] [place] [address] 02783- 4179 Jul, Chronic kidney disease, stage 3 N18.3 ; Dysthymia F34.1 and Opioid use disorder, severe, in sustained remission F11.21 [facility] [address] [place] [address] Jul, Opioid use disorder, severe, in sustained remission F11.21 [place] [address] 8[address]33- 9285 Jul, Long-term use of high-risk medication Z79.899 and Chronic kidney disease, stage 3 N18.3 [place] [address] 20784- 7268 Jul, Opioid use disorder, severe, in early remission F11.21 [place] [address] 70585- 4996 Jul, [place] [address] 68562- 4803 Jun, [place] [address] 79506- 8912 Jun, [place] [address] 65614- 2703 Jun, Opioid use disorder, moderate, dependence F11.20 and Opioid use disorder, severe, in early remission F11.21 [place] [address] [id number] [place] [address] 59681- 3713 Jun, [place] [address] 99105- 1614 Jun, Long-term use of high-risk medication Z79.899 [place] [address] 50974- 5437 Jun, CIH I (cervical intraepithelial neoplasia I) N87.0 [place] [address] 81595- 0183 May, Opioid use disorder, severe, in early remission F11.21 [facility] [id number] [place] [address] 54106- 0102 18 May, 2017 Chronic kidney disease, stage 3 N18.3 [facility] [id number] [place] [address] 48272- 1110 14 May, 2017 Chronic kidney disease, stage 3 N18.3 [facility] [address] [place] [address] 05 May, 2017 Opioid use disorder, severe, in sustained remission F11.21 [facility] [id number] [place] [address] 71045- 8207 Apr, LGSIL on Pap smear of cervix R87.612 [facility] [address] [place] [address] Apr, [facility] [id number] [place] [address] 94102- 8795 Apr, Opioid use disorder, severe, in early remission F11.21 [facility] [id number] [place] [address] 48286- 9946 Apr, Opioid use disorder, severe, in early remission F11.21 [facility] [id number] [place] [address] 04731- 4910 Apr, Opioid use disorder, severe, in early remission F11.21 [facility] [id number] [place] [address] 79097- 7472 Apr, Opioid use disorder, severe, in early remission F11.21 [facility] [id number] [place] [address] 89642- 0731 14 Apr, 2017 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 [facility] [id number] [place] [address] 93331- 5277 Apr, Opioid use disorder, severe, in early remission F11.21 [facility] [address] [place] [address] Apr, Opioid use disorder, severe, in sustained remission F11.21 [facility] [id number] [place] [address] 53029- 2264 Apr, Opioid use disorder, severe, in early remission F11.21 [facility] [id number] [place] [address] 67004- 7309 Apr, Mild episode of recurrent major depressive disorder F33.0 and Right acute serous otitis media, recurrence not specified H65.01 [facility] [id number] [place] [address] 85016- 6399 Mar, [facility] [address] 49507- 5564 Mar, Opioid use disorder, severe, in early remission F11.21 [facility] [id number] [place] [address] 29372- 1383 Mar, [facility] [address] [place] [address] Mar, Opioid use disorder, severe, in sustained remission F11.21 [facility] [address] [place] [address] Mar, Opioid use disorder, severe, in sustained remission F11.21 [facility] [id number] [place] [address] 42226- 3758 Mar, Opioid use disorder, severe, in early remission F11.21 [facility] [id number] [place] [address] 18194- 0773 Jan, Opioid use disorder, severe, in early remission F11.21 [facility] [address] [place] [address] Jan, Opioid use disorder, severe, in sustained remission F11.21 [facility] [address] [place] [address] Jan, Opioid use disorder, severe, in sustained remission F11.21 [facility] [id number] [place] [address] 75285- 3398 Jan, Opioid use disorder, severe, in early remission F11.21 [facility] [address] [place] [address] Jan, Opioid use disorder, severe, in sustained remission F11.21 [place] [id number] [place] [address] 77446- 3583 December, Opioid use disorder, severe, in early remission F11.21 [facility] [address] [place] [address] December, Opioid use disorder, severe, in sustained remission F11.21 [place] [id number] [place] [address] 79197- 9719 December, Routine gynecological examination Z01.419 and Chronic kidney disease, stage [address] [address]40- 6636 December, Chronic kidney disease, stage 3 N18.3 ; 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 ; Gastroparesis K31.84 ; Essential hypertension I10 and Irritable bowel syndrome with constipation K58.1 [facility] [address] [place] [address] December, Opioid use disorder, severe, in sustained remission F11.[address] 85795- 2024 December, Opioid use disorder, severe, in early remission F11.21 [facility] [address] [place] [address] December, Opioid use disorder, severe, in sustained remission F11.21 [place] [id number] [place] [address] 17808- 1583 December, Encounter for therapeutic drug level monitoring Z51.81 [facility] [address] [place] [address] December, Opioid use disorder, severe, in sustained remission F11.21 [facility] [address] [place] [address] Dec, Opioid use disorder, severe, in sustained remission F11.[address] 68300- 8973 Dec, Opioid use disorder, severe, in early remission F11.21 [facility] [id number] [place] [address] 37928- 0828 Dec, [facility] [address] [place] [address] Dec, Opioid use disorder, severe, in sustained remission F11.21 [facility] [id number] [place] [address] 48280- 6501 Dec, Opioid use disorder, severe, in early remission F11.21 [facility] [address] [place] [address] Dec, Opioid use disorder, severe, in sustained remission F11.21 [place] [address] 65919- 8001 Dec, Type 1 diabetes mellitus with diabetic chronic kidney disease E10.[address] 69717- 3147 Dec, Opioid use disorder, severe, in sustained remission F11.21 ; Encounter for therapeutic drug level monitoring Z51.81 and Other fpc ( 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 Z79.899 [facility] [address] [place] [address] Oct, Opioid use disorder, severe, in sustained remission F11.21 [facility] [id number] [place] [address] 97606- 7960 Oct, Opioid use disorder, severe, in early remission F11.21 [facility] [id number] [place] [address] 70363- 0639 15 Oct, 2016 [facility] [address] [place] [address] Oct, Opioid use disorder, severe, in sustained remission F11.21 [facility] [id number] [place] [address] 74807- 8982 15 Oct, 2016 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 [facility] [address] [id number] [place] [address] 16053- 6581 Oct, Routine gynecological examination Z01.419 [facility] [address] [address] 6[address] 07 Oct, 2016 Opioid use disorder, severe, in early remission F11.21 [facility] [id number] [place] [address] 13612- 4046 Oct, Opioid use disorder, severe, in early remission F11.21 [facility] [address] [place] [id number] [place] [address] 08678- 4233 Oct, Opioid use disorder, severe, in early remission F11.21 [facility] [address] [place] [address] Oct, Opioid use disorder, severe, in sustained remission F11.21 [place] [address] [place] [address] [id number] [place] [address] 08345- 1272 24 Oct, 2016 Opioid use disorder, severe, in early remission F11.21 [facility] [address] [id number] [place] [address] 20782- 2544 23 Oct, 2016 Opioid use disorder, severe, in early remission F11.21 [facility] [address] [place] [address] 22 Oct, 2016 Opioid use disorder, severe, in sustained remission F11.21 [place] [id number] [place] [address] 00033- 6109 Oct, Opioid use disorder, severe, in sustained remission F11.21 ; Encounter for therapeutic drug level monitoring Z51.81 and 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 terminal 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.899 [facility] [address] [place] [address] [place] [address] 59549- 6844 16 Oct, 2016 [facility] [address] [place] [address] 14 Oct, 2016 Opioid use disorder, severe, in early remission F11.21 [facility] [address] [place] [address] 10 Oct, 2016 Opioid use disorder, severe, in early remission F11.21 [facility] [address] [place] [id number] [place] [address] 73591- 5498 Oct, Opioid use disorder, severe, in early remission F11.21 [facility] [id number] [place] [address] 62672- 8194 Oct, [facility] [id number] [place] [address] 31992- 6549 Oct, [facility] [address] [id number] [place] [address] 11536- 2664 Oct, [facility] [address] [place] [address] Oct, Opioid use disorder, severe, in early remission F11.21 [facility] [address] [place] [address] [id number] [place] [address] 24453- 8357 Sep, Opioid use disorder, severe, in early remission F11.21 [facility] [address] [place] [address] Sep, Opioid use disorder, severe, in early remission F11.21 [facility] [address] [place] [id number] [place] [address] 37140- 7258 Sep, Opioid use disorder, severe, in early remission F11.21 ; Other fpc (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 Z79.899 and Encounter for therapeutic drug level monitoring Z51.81 [facility] [id number] [place] [address] 11090- 7772 Sep, [facility] [address] [place] [address] 85407- 0125 Sep, [facility] [address] [id number] [place] [address] 97214- 6172 Sep, Opioid use disorder, severe, 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 ; 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 ; Chronic kidney disease, stage 3 N18.3 ; Essential hypertension I10 and Irritable bowel syndrome with constipation K58.1 [facility] [address] [place] [address] Sep, Opioid use disorder, severe, in early remission F11.21 [facility] [address] [place] [address] Sep, Opioid use disorder, severe, in early remission F11.21 [facility] [address] [place] [address] 52670- 9926 Sep, Opioid use disorder, moderate, dependence F11.20 [facility] [address] [place] [address] 74417- 0964 Sep, Opioid use disorder, moderate, dependence F11.20 [facility] [address] [place] [address] Sep, Opioid use disorder, severe, in early remission F11.[address] 786635- 7800 Sep, Opioid use disorder, severe, in early remission F11.21 [facility] [address] [place] [address] Aug, Opioid use disorder, severe, in early remission F11.21 [facility] [address] [place] [address] 07802- 9396 Aug, Opioid use disorder, moderate, dependence F11.20 [facility] [address] [place] [address] 36671 -4565 Aug, Bug bite without infection, initial encounter W57.XXXA [facility] [address] [place] [address] 02784- 4339 Aug, Opioid use disorder, moderate, dependence F11.20 [facility] [address] [place] [address] Aug, [facility] [address] [place] [address] 07867- 3214 Aug, Opioid use disorder, severe, in early remission F11.21 ; Other fpc (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 Z79.899 ; Encounter for therapeutic drug level monitoring Z51.81 and 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 [facility] [address] [place] [address] Aug, [facility] [id number] [place] [address] 72561- 5448 Aug, Opioid use disorder, moderate, dependence F11.20 ; Other fpc (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 Z79.899 and Encounter for therapeutic drug level monitoring Z51.81 [facility] [id number] [place] [address] 30989- 0517 Aug, [facility] [address] [place] 026644- 5021 Aug, Non-intractable vomiting with nausea, unspecified vomiting type R11.2 [place] [address] 15442- 6097 Aug, Opioid use disorder, moderate, dependence F11.20 and Non- intractable vomiting with nausea, unspecified vomiting type R11.2 [place] [address] [place] [address] [id number] [place] [address] 69470- 7014 Aug, [facility] [id number] [place] [address] 97521- 4219 Aug, Opioid use disorder, moderate, dependence F11.20 [place] [address] [place] [address] [id number] [place] [address] 12357- 6736 Aug, [facility] [address] [place] [id number] [place] [address] 68575- 5175 Jul, 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 and Opioid use disorder, moderate, dependence F11.20 [facility] [address] [place] [address] Jul, [facility] [address] [id number] [place] [address] 55469- 6994 Jul, [facility] [address] [place] [id number] [place] [address] 98707- 8828 Jul, [facility] [address] [place] [id number] [place] [address] 70838- 1375 Jul, Addiction to drug F19.20 and Chronic kidney disease, stage 3 N18.3 [facility] [address] [place] [address] Jul, Counseling on substance use and abuse Z71.89 [facility] [id number] [place] [address] 22040- 4127 Jul, Chronic kidney disease, stage 3 N18.3 [facility] [address] [place] [id number] [place] [address] 73009- 4497 Jul, 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 ; Diarrhea, unspecified type R19.7 and Essential hypertension I10 [place] [address] 97590- 0901 Jul, [place] [address] 72571- 7031 Jun, [place] [address] 34287- 7070 Jun, [facility] [address] 94011- 2511 Apr, 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 [facility] [id number] [place] [address] 69602- 8296 Apr, Sore throat and laryngitis J06.0 and Non-intractable vomiting with nausea, unspecified vomiting type R11.2 [facility] [id number] [place] [address] 43827- 7003 Apr, [facility] [id number] [place] [address] 41277- 6531 Mar, [facility] [address] 67782- 7847 Jan, [facility] [id number] [place] [address] 49089- 0540 Jan, [facility] [address] 02611- 7779 Jan, [facility] [id number] [place] [address] 55046- 3845 December, 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 ; Gastroparesis K31.84 ; Mixed hyperlipidemia E78.2 ; Chronic kidney disease, stage 3 N18.3 ; Dysthymia F34.1 and Acute bilateral low back pain without sciatica M54.5 [place] [address] 53501- 7805 December, [place] [address] 05120- 8705 December, [place] [address] 92978- 4163 Aug, Depression F32.9 and Gastroparesis K31.[address] 84747- 6642 Aug, Gastroparesis K31.84 [place] [address] 27015- 1174 Jul, Recurrent UTI N39.0 ; Chronic kidney disease, stage 3 N18.3 and 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 [place] [id number] [place] [address] 31931- 8976 Jul, [facility] [id number] [place] [address] [id number] Jul, Dental examination Z01.20 and Dental caries K02.9 [place] [id number] [place] [address] 03991- 3190 Jul, [facility] [address] [place] [address] 54007 -2669 Jul, Dysuria R30.0 ; Urinary tract infection N39.0 and Nausea R11.[address] 73429- 5197 Jun, Dysuria R30.0 [facility] [address] [address]- 5865 Jun, Dysuria R30.0 [facility] [id number] [place] [address] 05201- 4866 Jun, Dysuria R30.0 [facility] [id number] [place] [address] 76842- 7891 Jun, [facility] [id number] [place] [address] 81068- 4192 Jun, Acute cystitis with hematuria N30.01 [place] [place] [id number] [place] [address] 85551- 7727 May, [facility] [address] [place] [id number] [place] [address] 74868- 6028 Apr, Diabetes mellitus without mention of complication, type I [ juvenile type], not stated as uncontrolled 250.01 ; Gastroparesis due to DM 250.60 ; Contraception management V25.9 and Renal insufficiency 593.9 [place] [id number] [place] [address] 77070- 6369 Apr, [facility] [id number] [place] [address] 02745- 0015 Apr, [place] [id number] [place] [address] 73247- 0271 Mar, [facility] [id number] [place] [address] 81239- 1158 Mar, Hyperlipidemia 272.4 and Hypertensive heart and chronic kidney disease, benign, without heart failure and with chronic kidney disease stage I through stage IV, or unspecified 404.10 [facility] [address] [place] [address] 58234- 6582 Mar, Hyperlipidemia 272.4 ; Hyponatremia 276.1 ; 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 ; Hypertensive heart and chronic kidney disease, benign, without heart failure and with chronic kidney disease stage I through stage IV, or unspecified 404.10 ; Proteinuria 791.0 and Chronic kidney disease (CKD), stage III (moderate) 585.3 [place] [id number] [place] [address] 11471- 6706 Mar, [facility] [address] [place] [address] [id number] [place] [address] 85876- 7791 Mar, Elevated blood sugar level 790.29 [place] [address] [place] [id number] [place] [address] [phone]- 4488 Mar, Low grade squamous intraepithelial lesion (LGSIL) on cervical Pap smear 795.03 [place] [address] [place] [id number] [place] [address] 26027- 7156 Mar, Amenorrhea 626.0 [place] [address] [place] [id number] [place] [address] [phone]- 9324 Jan, Amenorrhea 626.0 ; Routine gynecological examination V72.31 and Screen for STD (sexually transmitted disease) V74.5 [place] [id number] [place] [address] [phone]- [phone] Jan, Amenorrhea 626.0 [place] [address] [place] [id number] [place] [address] [phone] 08 Jan, 2015 Routine gynecological examination V72.31 ; Screen for STD ( sexually transmitted disease) V74.5 ; Pap test, as part of routine gynecological examination V76.2 ; Breast cancer screening V76.10 and Amenorrhea 626.0 [place] [id number] [place] [address]- 6784 December, [place] [address] [place] [id number] [place] [address]- 1857 Dec, [place] [address] [place] [id number] [place] [address] 70218- 8590 Dec, [place] [id number] [place] [address]- 7411 Oct, [facility] [place] [facility] [address] [id number] [place] [address] 2166 Oct, [facility] [place] [facility] [address] [id number] [place] [address] Oct, [facility] [place] [facility] [address] [id number] [place] [address]- 8073 Oct, [facility] [place] [facility] [address] [id number] [place] [address]- 2891 Oct, [facility] [place] [facility] [address] [id number] [place] [address]- 5606 Oct, [facility] [place] [facility] [address] [id number] [place] [address]- 6864 Oct, [facility] [place] [facility] [address] [id number] [place] [address]- 8656 Oct, [facility] [place] [facility] [address] [id number] [place] [address]- 8438 Oct, [facility] [place] [facility] [address] [id number] [place] [address]- 8957 Oct, [facility] [place] [facility] [address] [id number] [place] [address]- 8306 Oct, [facility] [place] [facility] [address] [id number] [place] [address]- 2298 Sep, [facility] [place] [facility] [address] [id number] [place] [address]- 9224 Sep, [facility] [place] [facility] [address] [id number] [place] [address]- 5959 Sep, [facility] [place] [facility] [address] [id number] [place] [address]- 2870 Sep, [facility] [place] [facility] [address] [id number] [place] [address]- 6989 Sep, [facility] [place] [facility] [address] [id number] [address] 1942 Sep, [facility] [place] [facility] [address] [id number] [place] [address]- 1888 Sep, [facility] [place] [facility] [address] [id number] [place] [address]- 4975 Sep, [facility] [place] [facility] [address] [id number] [place] [address]- 3690 Sep, [facility] [place] [facility] [address] [id number] [place] [address]- 5878 Sep, [facility] [place] [facility] [address] [id number] [place] [address]- 8112 Sep, [facility] [place] [facility] [address] [id number] [place] [address]- 6065 Sep, [facility] [place] [facility] [address] [id number] [place] [address]- 6489 Sep, [facility] [place] [facility] [address] [id number] [place] [address]- 7948 Sep, [facility] [place] [facility] [address] [id number] [place] [address]- 7747 Sep, [facility] [place] [facility] [address] [id number] [place] [address]- 7785 Sep, [facility] [place] [facility] [address] [id number] [place] [address]- 5804 Sep, [facility] [place] [facility] [address] [id number] [place] [address]- 3493 Sep, [facility] [place] [facility] [address] [id number] [place] [address]- 3431 Sep, [facility] [place] [facility] [address] [id number] [place] [address]- 4025 Sep, [facility] [place] [facility] [address] [id number] [place] [address]- 8602 Aug, [facility] [place] [facility] [address] [id number] [place] [address]- 0798 18 Aug, 2014 [facility] [place] [facility] [address] [id number] [place] 0163 Aug, [facility] [place] [facility] [address] [id number] [place] [address]- 9059 Aug, [facility] [place] [facility] [address] [id number] [place] [address]- 1578 08 Aug, 2014 [facility] [place] [facility] [address] [id number] [place] [address] Aug, [facility] [place] [facility] [address] [id number] [place] [address] Aug, [facility] [place] [facility] [address] [id number] [place] [address]- 3844 Aug, [facility] [place] [facility] [address] [id number] [place] [address]- 8900 Aug, [facility] [place] [facility] [address] [id number] [place] [address]- 6377 Aug, [facility] [place] [facility] [address] [id number] [place] [address]- 6851 Aug, [facility] [place] [facility] [address] [id number] [place] [address]- 6273 Aug, [facility] [place] [facility] [address] [id number] [place] [address]- 6644 Jul, [facility] [place] [facility] [address] [id number] [place] [address]- 3588 Jul, [facility] [place] [facility] [address] [id number] [place] [address]- 5605 Jul, [facility] [place] [facility] [address] [id number] [place] [address]- 1368 Jul, [facility] [place] [facility] [address] [id number] [place] [address]- 5668 Jul, [facility] [place] [facility] [address] [id number] [place] [address]- 9905 Jul, [facility] [place] [facility] [address] [id number] [place] [address]- 1631 Jul, [facility] [place] [facility] [address] [id number] [place] [address]61 Jul, [facility] [place] [facility] [address] [id number] [place] [address]- 4335 Jul, [facility] [place] [facility] [address] [id number] [place] [address]- 2414 Jul, [facility] [place] [facility] [address] [id number] [place] [address]- 9031 Jun, [facility] [place] [facility] [address] [id number] [place] [address]- 9772 Jun, [facility] [place] [facility] [address] [id number] [place] [address]- 1584 30 Jun, 2014 [facility] [place] [facility] [address] [id number] [place] [address]- 4526 30 Jun, 2014 [facility] [place] [facility] [address] [id number] [place] [address]- 5518 30 Jun, 2014 [facility] [place] [facility] [address] [id number] [place] [address]- 1941 30 Jun, 2014 [facility] [place] [facility] [address] [id number] [address]- 2058 15 Jun, 2014 [facility] [place] [facility] [address] [id number] [place] [address]- 4715 15 Jun, 2014 [facility] [place] [facility] [address] [id number] [place] [address]- 7384 May, [facility] [place] [facility] [address] [id number] [place] [address]- 3180 May, [facility] [place] [facility] [address] [id number] [place] [address]- 7146 18 May, 2013 [facility] [place] [facility] [address] [id number] [place] [address]- 4582 May, [facility] [place] [facility] [address] [id number] [place] [address]- 6386 May, [facility] [place] [facility] [address] [id number] [place] [address]- 4883 May, [facility] [place] [facility] [address] [id number] [place] [address]- 1734 May, [facility] [place] [facility] [address] [id number] [place] [address]- 7876 May, [facility] [place] [facility] [address] [id number] [place] [address]- 1570 Apr, [facility] [place] [facility] [address] [id number] [place] [address]- 6908 Apr, [facility] [place] [facility] [address] [id number] [place] [address]- 3675 Apr, [facility] [place] [facility] [address] [id number] [place] [address]- 2684 Apr, [facility] [place] [facility] [address] [id number] [place] [address]- 3070 Mar, [facility] [place] [facility] [address] [id number] [place] [address]- 2328 Mar, [facility] [place] [facility] [address] [id number] [place] [address]- 6786 Mar, [facility] [place] [facility] [address] [id number] [place] [address]- 0888 Mar, [facility] [place] [facility] [address] [id number] [place] [address]- 9813 Mar, [facility] [place] [facility] [address] [id number] [place] [address]- 4418 Mar, [facility] [place] [facility] [address] [id number] [place] [address]- 9077 Jan, [facility] [place] [facility] [address] [id number] [place] [address]- 4196 Jan, [facility] [place] [facility] [address] [id number] [place] [address]- 4084 Jan, [facility] [place] [facility] [address] [id number] [place] [address]- 1246 Jan, [facility] [place] [facility] [address] [id number] [place] [address]- 1212 Jan, [facility] [place] [facility] [address] [id number] [place] [address]- 0730 Jan, [facility] [place] [facility] [address] [id number] [place] [address]- 8691 Jan, [facility] [place] [facility] [address] [id number] [place] [address]- 0960 Jan, [facility] [place] [facility] [address] [id number] [place] [address]- 1403 Jan, [facility] [place] [facility] [address] [id number] [place] [address]- 5175 Jan, [facility] [place] [facility] [address] [id number] [place] [address]- 3343 Jan, [facility] [place] [facility] [address] [id number] [place] [address]- 7176 Jan, [facility] [place] [facility] [address] [id number] [place] [address]- 3884 December, [facility] [place] [facility] [address] [id number] [place] [address]- 7411 December, [facility] [place] [facility] [address] [id number] [place] [address]- 3635 December, [facility] [place] [facility] [address] [id number] [place] [address]- 0900 December, [facility] [place] [facility] [address] [id number] [place] [address]- 8414 Dec, [facility] [place] [facility] [address] [id number] [place] [address]- 3444 Dec, [facility] [place] [facility] [address] [id number] [place] [address]- 6449 Dec, [facility] [place] [facility] [address] [id number] [place] [address]- 9451 Dec, [facility] [place] [facility] [address] [id number] [place] [address]- 9129 Dec, [facility] [place] [facility] [address] [id number] [place] [address]- 8055 Dec, [facility] [place] [facility] [address] [id number] [place] [address]- 1801 Dec, [facility] [place] [facility] [address] [id number] [place] [address]- 8001 Dec, [facility] [place] [facility] [address] [id number] [place] [address]- 3335 Dec, [facility] [place] [facility] [address] [id number] [place] [address]- 2185 Dec, [facility] [place] [facility] [address] [id number] [place] [address]- 2627 Dec, [facility] [place] [facility] [address] [id number] [place] [address]- 8852 Dec, [facility] [place] [facility] [address] [id number] [place] [address]- 5341 Dec, [facility] [place] [facility] [address] [id number] [place] [address]- 7698 Dec, [facility] [place] [facility] [address] [id number] [place] [address]- 2197 Oct, [facility] [place] [facility] [address] [id number] [place] [address]- 5142 31 Oct, 2013 [facility] [address] [id number] [place] [address]- 8522 29 Oct, 2013 [facility] [place] [facility] [address] [id number] [place] [address]- 7258 29 Oct, 2013 [facility] [address] [id number] [place] [address]- 7116 Oct, [facility] [place] [facility] [address] [id number] [place] [address]- 9006 Oct, [facility] [place] [facility] [address] [id number] [place] [id number] Oct, [facility] [place] [facility] [address] [facility] [id number] [place] [address]- 6863 Oct, [facility] [address] [id number] [place] [address]- 6086 Oct, [facility] [place] [facility] [address] [id number] [place] [address]- 2120 Oct, [facility] [place] [facility] [address] [id number] [place] [address]- 7081 Sep, [facility] [address] [facility] [id number] [place] [address]- 2861 Sep, [facility] [place] [facility] [address] [id number] [place] [address]- 9016 Sep, [facility] [place] [facility] [address] [id number] [place] [address]- 7982 Sep, [facility] [place] [facility] [address] [id number] [place] [address]- 3984 Sep, [facility] [place] [facility] [address] [facility] [id number] [place] [address]- 5246 Sep, [facility] [place] [facility] [address] [id number] [place] [address]- 2836 Aug, [facility] [address] [facility] [id number] [address]- 0258 Aug, [facility] [id number] [address]- 6387 Jul, [facility] [id number] [address]- 3703 Jul, [facility] [id number] [place] [address]- 6169 Jul, [facility] [id number] [address]279 Jul, [place] [id number] [address]- 7369 Jul, IMMUNIZATIONS Vaccine Route Administration Date Status ROCEPHIN 1 GM (IM) IM Intramuscular Apr 03, 2017 Administered SOCIAL HISTORY Never Assessed REASON FOR VISIT ear ache-right ear has began to hurt, has tried tylenol and otc ear drops with little improvement, constant dull pain-BertinrrymanRCatie, Would like to discuss antidepressants-did not like zoloft that manager medical device gave her, Too early for A1C PLAN OF CARE Activity Details Follow Up 2 Months Reason: VITAL SIGNS Height 66 in 2017-04-03 Weight 177.6 lbs 2017-04-03 Temperature 97.8 degrees Fahrenheit 2017-04-03 Heart Rate 96 bpm 2017-04-03 Respiratory Rate 20 2017-04-03 Oximetry 98 % 2017-04-03 BMI 28.66 kg/m2 2017-04-03 Blood pressure systolic 124 mmHg 2017-04-03 Blood pressure diastolic 72 mmHg 2017-04-03 MEDICATIONS Medication Instructions Dosage Frequency Start Date End Date Duration Status Wellbutrin SR 100 mg Orally Once a day 1 tablet 24h Apr, 30 day (s) Active Tylenol 8 Hour Active Fish Oil 1000 MG Orally Once a day 2 capsule 24h Active Milk Thistle 500 MG Active Glucagon Emergency 1 MG as directed Apr, Active Humalog 100 UNIT/ML Subcutaneous pump as per pump-must have appt for refills inject Units by Subcutaneous route every hour per insulin pump Active Dicyclomine HCl 10 mg Orally 2 times a day prn 1 tablet 30 Active Lovastatin 20 mg Orally Once a day 1 tablet with a meal 24h Mar, 30 day(s) Active Keflex 500 mg Orally every 12 hrs 1 capsule 12h Apr, Apr, 05 days Active Vitamin B12 Active Suboxone 8-2 MG Sublingual Once a day 1.5 film under the tongue and allow to dissolve 24h Aug, Apr, 16 days Active Vitamin B-6 100 MG Orally Once a day 1 tablet 24h Active Zofran ODT 4 MG Orally 3 times a day, prn take 1 tablets by Oral route every 8 hours PRN Nausea or Vomiting Sep, Active Enalapril Maleate 10 mg Orally twice a day 1 tablet 12h 30 Active RESULTS No Results PROCEDURES Procedure Date Ordered Result Body Site MEASURE BLOOD OXYGEN LEVEL Apr 03, 2017 THER/PROPH/DIAG INJ, SC/IM Apr 03, 2017 ROCEPHIN 1 GM (IM) Apr 03, 2017 INSTRUCTIONS MEDICATIONS ADMINISTERED No Known Medications MEDICAL (GENERAL) HISTORY Type Description Date Medical History Type 1 Diabetes mellitus Medical History hx of hypertension Medical History gastroparesis Medical History hx of renal insufficiency 09/2014 Medical History Unspecified renal failure Medical History Gastroparesis due to DM Surgical History oral surgery at age 16 Hospitalization History Gastroperisis 2011
--- OUTSIDE RECORDS SUMMARY | 2018-08-30 20:49 | XMS REPORT ---
Author Author NOEMY MORGAN Organization [facility] Address [address] 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 Active 46443201 Problem Chronic kidney disease, stage 3 N18.3 Active 232144162 Problem CHI I (cervical intraepithelial neoplasia I) N87.0 Active 087971121 Problem Mild episode of recurrent major depressive disorder F33.0 Active 013489565 Problem Addiction to drug F19.20 Active 913582445 Problem Essential hypertension I10 Active 40854931 Problem Opioid use disorder, severe, in sustained remission F11.21 Active 32113653 Problem Irritable bowel syndrome with constipation K58.1 Active 708002564 ALLERGIES Substance Reaction Event Type Date Status Penicillin V Potassium rash Drug Allergy Jul, Active Cipro nausea and vomiting Drug Allergy Jul, Active Bactrim DS rash Drug Allergy Jul, Active ENCOUNTERS Encounter Location Date Diagnosis [facility] [address] [place] [address] Jan, [facility] [address] [facility] [id number] [address] December, Opioid use disorder, severe, in early remission F11.21 [facility] [address] [place] [address] December, Opioid use disorder, severe, in sustained remission F11.21 [facility] [address] [facility] [id number] [address] December, Opioid use disorder, severe, in sustained remission F11.21 and 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 [facility] [id number] [place] [address]69[address] 5724 December, Opioid use disorder, severe, in early remission F11.21 [facility] [address] [place] [address] Dec, Opioid use disorder, severe, in sustained remission F11.21 [facility] [id number] [place] [address] 19483[address] 2746 Dec, 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 ; Unprotected sexual intercourse Z72.51 ; Pain of left thumb M79.645 ; Mixed hyperlipidemia E78.2 ; Gastroparesis K31.84 ; Essential hypertension I10 and Irritable bowel syndrome with constipation K58.1 [facility] [id number] [place] [address] 75272- 9188 Dec, Opioid use disorder, severe, in early remission F11.21 [facility] [id number] [place] [address] 95997- 8973 Oct, [facility] [id number] [place] [address] 89720- 0833 Oct, Opioid use disorder, severe, 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 [facility] [id number] [place] [address] 79079- 3776 Oct, [facility] [id number] [place] [address] 59790- 8815 Oct, Opioid use disorder, severe, 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 [facility] [id number] [place] [address] 05247- 9761 Oct, [facility] [id number] [place] [address] 37177- 6394 Oct, [facility] [address] [place] [address] Oct, Opioid use disorder, severe, in sustained remission F11.21 [facility] [address] [address] Sep, [facility] [id number] [place] [address] 73553- 9206 Sep, [facility] [id number] [place] [address] 41161- 9080 Sep, Opioid use disorder, severe, 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 [facility] [id number] [place] [address] 58765- 5926 Aug, Opioid use disorder, severe, 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 [facility] [id number] [place] [address] 11814- 4602 Jul, [facility] [id number] [place] [address] 82912- 2063 Jul, Chronic kidney disease, stage 3 N18.3 ; Dysthymia F34.1 and Opioid use disorder, severe, in sustained remission F11.21 [facility] [address] [place] [address] Jul, Opioid use disorder, severe, in sustained remission F11.21 [facility] [id number] [place] [address] 42423- 9125 Jul, Long-term use of high-risk medication Z79.899 and Chronic kidney disease, stage 3 N18.3 [facility] [address] [address] Jul, Opioid use disorder, severe, 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 [facility] [id number] [address] Jul, [facility] [id number] [place] [address] 34528- 0366 Jun, [facility] [id number], [place] [address] Jun, [facility] [id number] [place] [address] 17531- 9346 Jun, Opioid use disorder, moderate, dependence F11.20 and Opioid use disorder, severe, 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 [facility] [address] [place] [address] 63057- 8991 Jun, [facility] [id number] [place] [address] 76324- 2833 Jun, Long-term use of high-risk medication Z79.899 [facility] [id number] [place] [address] 66902- 5144 Jun, CHI I (cervical intraepithelial neoplasia I) N87.0 [facility] [id number] [place] [address] 31240- 5074 May, Opioid use disorder, severe, 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 [facility] [id number] [place] [address] 95080- 4809 18 May, 2017 Chronic kidney disease, stage 3 N18.3 [facility] [id number] [place] [address] 36695- 4428 14 May, 2017 Chronic kidney disease, stage 3 N18.3 [facility] [address] [place] [address] 05 May, 2017 Opioid use disorder, severe, in sustained remission F11.21 [facility] [address] [place] [address] 74212- 4101 Apr, LGSIL on Pap smear of cervix R87.612 [facility] [address] [place] [address] Apr, [facility] [id number] [place] [address] 02816- 2776 Apr, Opioid use disorder, severe, 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 [facility] [id number] [place] [address] 13818- 6092 Apr, Opioid use disorder, severe, 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 [facility] [address] [id number] [address] 480[address] Apr, Opioid use disorder, severe, 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 [facility] [id number] [place] [address] 87012- 4032 18 Apr, 2017 Opioid use disorder, severe, 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 [facility] [address], [place] [address] 1097 14 Apr, 2017 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 [facility] [id number] [place] [address] 64693- 5228 10 Apr, 2017 Opioid use disorder, severe, 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 [facility] [address] [place] [address] Apr, Opioid use disorder, severe, in sustained remission F11.21 [facility] [address] [place] [address] 38384- 2749 09 Apr, 2017 Opioid use disorder, severe, 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 [facility] [id number] [place] [address] 56598- 8801 Apr, Mild episode of recurrent major depressive disorder F33.0 and Right acute serous otitis media, recurrence not specified H65.01 [facility] [address], [place] [address] Mar, [facility] [id number] [place] [address] 92828- 5985 Mar, Opioid use disorder, severe, 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 [facility] [address], [place] [address] Mar, [facility] [address] [place] [address] Mar, Opioid use disorder, severe, in sustained remission F11.21 [facility] [address] [place] [address] Mar, Opioid use disorder, severe, in sustained remission F11.21 [facility] [id number] [place] [address] 93499- 5627 Mar, Opioid use disorder, severe, 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 [facility] [address] [place] [address] 77675- 5523 Jan, Opioid use disorder, severe, 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 [facility] [address] [place] [address] Jan, Opioid use disorder, severe, in sustained remission F11.21 [facility] [address] [place] [address] Jan, Opioid use disorder, severe, in sustained remission F11.[address] 044556- 0803 Jan, Opioid use disorder, severe, in early remission F11.21 [facility] [address] [place] [address] Jan, Opioid use disorder, severe, in sustained remission F11.21 [place] [id number] [place] [address] 34222- 9146 December, Opioid use disorder, severe, 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 [facility] [address] [place] [address] December, Opioid use disorder, severe, in sustained remission F11.21 [place] [id number] [place] [address] 32962- 5588 December, Routine gynecological examination Z01.419 and Chronic kidney disease, stage 3 N18.3 [place] [id number] [place] [address] 75192- 6339 December, Chronic kidney disease, stage 3 N18.3 ; 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 ; Gastroparesis K31.84 ; Essential hypertension I10 and Irritable bowel syndrome with constipation K58.[address] [address] December, Opioid use disorder, severe, in sustained remission F11.[address] 07487- 5068 December, Opioid use disorder, severe, in 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 [facility] [address] [place] [address] December, Opioid use disorder, severe, in sustained remission F11.21 [facility] [id number] [place] [address] 01368- 7723 December, Encounter for therapeutic drug level monitoring Z51.81 [facility] [address] [place] [address] December, Opioid use disorder, severe, in sustained remission F11.21 [facility] [address] [place] [address] Dec, Opioid use disorder, severe, in sustained remission F11.21 [facility] [address] [place] [id number] [place] [address] 56275- 7318 Dec, Opioid use disorder, severe, 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 [place] [id number] [place] [address] 97774- 8460 Dec, [facility] [address] [place] [address] Dec, Opioid use disorder, severe, in sustained remission F11.21 [facility] [address] [place] [id number] [place] [address] 29544- 3228 Dec, Opioid use disorder, severe, 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 [facility] [address] [place] [address] Dec, Opioid use disorder, severe, in sustained remission F11.21 [facility] [address] [place] [id number] [place] [address] 44767- 4115 Dec, 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 [facility] [address] [place] [id number] [place] [address] 95480- 1297 Dec, Opioid use disorder, severe, in sustained remission F11.21 ; Encounter for therapeutic drug level monitoring Z51.81 and 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 [facility] [address] [place] [address] Oct, Opioid use disorder, severe, in sustained remission F11.21 [facility] [id number] [place] [address] 11975- 6370 Oct, Opioid use disorder, severe, 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 [facility] [id number] [place] [address] 84195- 1306 Oct, [facility] [address] [place] [address] Oct, Opioid use disorder, severe, in sustained remission F11.21 [facility] [id number] [place] [address] 68272- 9085 Oct, 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 [facility] [id number] [place] [address] 68518- 6521 14 Oct, 2016 Routine gynecological examination Z01.419 [facility] [facility] [address] 24874- 4904 07 Oct, 2016 Opioid use disorder, severe, in early remission F11.21 [facility] [id number] [place] [address] 88449- 1570 06 Oct, 2016 Opioid use disorder, severe, 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 [facility] [id number] [place] [address] 54846- 9547 Oct, Opioid use disorder, severe, in early remission F11.21 [facility] [address] [place] [address] Oct, Opioid use disorder, severe, in sustained remission F11.21 [facility] [id number] [place] [address] 98159- 6375 Oct, Opioid use disorder, severe, in early remission F11.21 [facility] [id number] [place] [address] 04818- 0197 Oct, Opioid use disorder, severe, 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 [facility] [address] [place] [address] Oct, Opioid use disorder, severe, in sustained remission F11.21 [facility] [id number] [place] [address] 13575- 5475 20 Oct, 2016 Opioid use disorder, severe, in sustained remission F11.21 ; Encounter for therapeutic drug level monitoring Z51.81 and Other group 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.899 [facility] [id number] [place] [address] 75178- 6256 16 Oct, 2016 [facility] [address] [place] [address] 14 Oct, 2016 Opioid use disorder, severe, in early remission F11.21 [facility] [address] [place] [address] 10 Oct, 2016 Opioid use disorder, severe, 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 [facility] [id number] [place] [address] 13924- 9479 09 Oct, 2016 Opioid use disorder, severe, 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 [facility] [id number] [place] [address] 35244- 6434 08 Oct, 2016 [facility] [id number] [place] [address] 14891- 3460 07 Oct, 2016 [facility] [id number] [place] [address] 36088- 2563 Oct, [facility] [address] [place] [address] Oct, Opioid use disorder, severe, 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 [facility] [id number] [place] [address] 87417- 7289 Sep, Opioid use disorder, severe, 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 [facility] [address] [place] [address] Sep, Opioid use disorder, severe, 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 [facility] [id number] [place] [address] 09820- 7007 Sep, Opioid use disorder, severe, 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 ; 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 and Encounter for therapeutic drug level monitoring Z51.81 [facility] [address] [place] [id number] [place] [address] 31129- 9868 Sep, [facility] [address] [place] [id number] [place] [address] 80270- 1957 Sep, [address] 09193- 7209 Sep, Opioid use disorder, severe, 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 ; 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 ; Chronic kidney disease, stage 3 N18.3 ; Essential hypertension I10 and Irritable bowel syndrome with constipation K58.1 [facility] [address] [place] [address] Sep, Opioid use disorder, severe, in early remission F11.21 [facility] [address] [place] [address] Sep, Opioid use disorder, severe, 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 [place] [id number] [place] [address] 89871- 1470 Sep, Opioid use disorder, moderate, dependence F11.20 [place] [address] [place] [address] 67209- 0438 Sep, Opioid use disorder, moderate, dependence F11.20 [facility] [address] [place] [address] Sep, Opioid use disorder, severe, 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 [facility] [address] [place] [id number] [place] [address] 11243- 3072 Sep, Opioid use disorder, severe, 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 [facility] [address] [place] [address] Aug, Opioid use disorder, severe, 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 [place] [id number] [place] [address] 73702- 0163 Aug, Opioid use disorder, moderate, dependence F11.20 [facility] [address] [place] [address] [place] [address] 77278 -1134 Aug, Bug bite without infection, initial encounter W57.XXXA [facility] [id number] [place] [address]- [address]778 Aug, Opioid use disorder, moderate, dependence F11.20 [facility] [address] [place] [address] Aug, [facility] [address] 74108- 6738 Aug, Opioid use disorder, severe, 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 ; Other group home (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 Z79.899 ; Encounter for therapeutic drug level monitoring Z51.81 and 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 [facility] [address] [place] [address] Aug, [facility] [address] 89621- 1431 Aug, Opioid use disorder, moderate, dependence F11.20 ; Other group home (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 Z79.899 and Encounter for therapeutic drug level monitoring Z51.81 [facility] [id number] [place] [address] 84314- 5445 Aug, [facility] [id number] [place] [address] 44175- 9793 Aug, Non-intractable vomiting with nausea, unspecified vomiting type R11.2 [facility] [id number] [place] [address] 73125- 7593 Aug, Opioid use disorder, moderate, dependence F11.20 and Non- intractable vomiting with nausea, unspecified vomiting type R11.2 [facility] [place] [address] [place] [address]- 6193 Aug, [facility] [id number] [place] [address] 55361- 1214 Aug, Opioid use disorder, moderate, dependence F11.20 [facility] [address] [place] [address]- 9187 Aug, [facility] [id number] [place] [address] 31529- 8302 Jul, 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 and Opioid use disorder, moderate, dependence F11.20 [facility] [address] [place] [address] Jul, [facility] [id number] [place] [address] 90315- 4363 Jul, [facility] [id number] [place] [address] 27970- 3820 Jul, [facility] [id number] [place] [address] 88595- 8900 Jul, Addiction to drug F19.20 and Chronic kidney disease, stage 3 N18.3 [facility] [address] [place] [address] Jul, Counseling on substance use and abuse Z71.89 [facility] [id number] [place] [address] 95883- 5421 Jul, Chronic kidney disease, stage 3 N18.3 [facility] [id number] [place] [address] 85346- 8575 Jul, 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 ; Diarrhea, unspecified type R19.7 and Essential hypertension I10 [facility] [id number] [place] [address] 67551- 3178 Jul, [facility] [id number] [place] [address] 76974- 5858 Jun, [facility] [id number] [place] [address] 17771- 9408 Jun, [facility] [address] [place] [address] 88724- 5587 Apr, 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 [facility] [id number] [place] [address] 67726- 1113 Apr, Sore throat and laryngitis J06.0 and Non-intractable vomiting with nausea, unspecified vomiting type R11.2 [facility] [id number] [place] [address] 74379- 6348 Apr, [facility] [id number] [place] [address] 11578- 9594 Mar, [facility] [address] 85172- 6135 Jan, [place] [id number] [place] [address] 03773- 9283 Jan, [facility] [id number] [place] [address] [phone]- [phone] Jan, [place] [address] [place] [id number] [place] [address] 65334- 4890 December, 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 ; Gastroparesis K31.84 ; Mixed hyperlipidemia E78.2 ; Chronic kidney disease, stage 3 N18.3 ; Dysthymia F34.1 and Acute bilateral low back pain without sciatica M54.5 [place] [address] [place] [id number] [place] [id number]- 6821 December, [place] [address] [place] [id number] [place] [id number]- [id number] December, [place] [address] [place] [id number] [place] [address] [id number]- 4984 Aug, Depression F32.9 and Gastroparesis K31.84 [place] [address] [address] [address] [id number] [place] [address] 39261- 4382 Aug, Gastroparesis K31.84 [place] [id number] [place] [address] 07037- 8865 Jul, Recurrent UTI N39.0 ; Chronic kidney disease, stage 3 N18.3 and 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 [facility] [id number] [place] [address] 17021- 1922 Jul, [facility] [id number] [place] [address] [id number] Jul, Dental examination Z01.20 and Dental caries K02.9 [facility] [address] [address]- 8641 Jul, [facility] [id number] [place] [address] 36250 -1283 Jul, Dysuria R30.0 ; Urinary tract infection N39.0 and Nausea R11.0 [place] [address] 92122- 3112 Jun, Dysuria R30.0 [facility] [address] 06631- 3405 Jun, Dysuria R30.0 [facility] [address] 69548- 0631 Jun, Dysuria R30.0 [facility] [address] 42204- 5573 Jun, [facility] [id number] [place] [address] 72768- 5401 Jun, Acute cystitis with hematuria N30.01 [facility] [id number] [place] [address] 75715- 0148 May, [facility] [id number] [place] [address] 06251- 9131 Apr, Diabetes mellitus without mention of complication, type I [ juvenile type], not stated as uncontrolled 250.01 ; Gastroparesis due to DM 250.60 ; Contraception management V25.9 and Renal insufficiency 593.9 [facility] [id number] [place] [address] 84946- 3229 Apr, [place] [address] [address] 7[address] Apr, [place] [id number] [place] [address] 52886- 5370 Mar, [place] [id number] [place] [address] 06380- 2663 Mar, Hyperlipidemia 272.4 and Hypertensive heart and chronic kidney disease, benign, without heart failure and with chronic kidney disease stage I through stage IV, or unspecified 404.10 [place] [id number] [place] [address] 62156- 7672 Mar, Hyperlipidemia 272.4 ; Hyponatremia 276.1 ; 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 ; Hypertensive heart and chronic kidney disease, benign, without heart failure and with chronic kidney disease stage I through stage IV, or unspecified 404.10 ; Proteinuria 791.0 and Chronic kidney disease (CKD), stage III (moderate) 585.3 [place] [id number] [place] [address] 09875- 0467 Mar, [id number] [place] [address] 00991- 8595 Mar, Elevated blood sugar level 790.29 [id number] [place] [address] 84053- 6044 Mar, Low grade squamous intraepithelial lesion (LGSIL) on cervical Pap smear 795.03 [address] [place] [address] 92192- 2487 Mar, Amenorrhea 626.0 [address] [place] [address] 54115- 0784 Jan, Amenorrhea 626.0 ; Routine gynecological examination V72.31 and Screen for STD (sexually transmitted disease) V74.5 [id number] [place] [address] 12135- 6661 Jan, Amenorrhea 626.0 [place] [id number] [address]- 0806 08 Jan, 2015 Routine gynecological examination V72.31 ; Screen for STD ( sexually transmitted disease) V74.5 ; Pap test, as part of routine gynecological examination V76.2 ; Breast cancer screening V76.10 and Amenorrhea 626.0 [facility] [id number] [address]- 8783 13 Dec, 2014 [facility] [id number] [address]- 5921 Dec, [facility] [id number], [place] [address]- 0483 Dec, [facility] [id number], [place] [address]- 9296 Oct, [facility] [id number], [place] [address]- 8775 Oct, [facility] [id number] 0782 Oct, [facility] [address], [place] [address]- 2869 Oct, [facility] [id number] 2587 Oct, [facility] [id number], [place] [address]- 0721 Oct, [facility] [id number], [place] [address]- 0949 Oct, [facility] [id number] [address]- 4128 Oct, [facility] [id number], [place] [address]- 3366 Oct, [facility] [id number] [address]- 4916 Oct, [facility] [id number] [place] [address]- 4130 Oct, [facility] [place] [facility] [address] [id number] [place] [address]- 0451 Sep, [facility] [place] [facility] [address] [id number] [place] [address]- 0562 Sep, [facility] [place] [facility] [address] [id number] [place] [address]- 2033 Sep, [facility] [place] [facility] [address] [id number] [place] [address]- 0313 Sep, [facility] [place] [facility] [address] [id number] [place] [address]- 4707 Sep, [facility] [place] [facility] [address] [id number] [place] [address]- 2750 Sep, [facility] [place] [facility] [address] [id number] [place] [address]- 3584 Sep, [facility] [place] [facility] [address] [id number] [place] [address]- 3328 Sep, [facility] [place] [facility] [address] [id number] [place] [address]- 4589 Sep, [facility] [place] [facility] [address] [id number] [place] [address]- 7408 Sep, [facility] [place] [facility] [address] [id number] [place] [address]- 3268 Sep, [facility] [place] [facility] [address] [id number] [place] [address]- 9030 Sep, [facility] [place] [facility] [address] [id number] [place] [address]- 9140 Sep, [facility] [place] [facility] [address] [id number] [place] [address]- 3895 Sep, [facility] [place] [facility] [address] [id number] [place] [address]- 9259 Sep, [facility] [place] [facility] [address] [id number] [place] [address]- 8952 Sep, [facility] [place] [facility] [address] [id number] [place] [address]- 5183 Sep, [facility] [place] [facility] [address] [id number] [place] [address]- 5156 Sep, [facility] [place] [facility] [address] [id number] [place] [address]- 3117 Sep, [facility] [place] [facility] [address] [id number] [place] [address]- 1977 Sep, [facility] [place] [facility] [address] [id number] [place] [address]- 5738 Aug, [facility] [place] [facility] [address] [id number] [place] [address]- 3671 Aug, [facility] [place] [facility] [address] [id number] [place] [address]- 6721 Aug, [facility] [place] [facility] [address] [id number] [place] [address]- 3850 Aug, [facility] [place] [facility] [address] [id number] [place] [address]- 2401 Aug, [facility] [place] [facility] [address] [id number] [place] [address]- 5352 Aug, [facility] [place] [facility] [address] [id number] [place] [address]- 6450 Aug, [facility] [place] [facility] [address] [id number] [place] [address]- 0704 Aug, [facility] [place] [facility] [address] [id number] [place] [address]- 3044 Aug, [facility] [place] [facility] [address] [id number] [place] [address]- 9872 Aug, [facility] [place] [facility] [address] [id number] [place] [address]- 1318 Aug, [facility] [place] [facility] [address] [id number] [place] [address]- 7287 Aug, [facility] [place] [facility] [address] [id number] [place] [address]- 8957 Jul, [facility] [place] [facility] [address] [id number] [place] [address]- 5085 Jul, [facility] [place] [facility] [address] [id number] [place] [address]- 1250 Jul, [facility] [place] [facility] [address] [id number] [place] [address]- 5628 Jul, [facility] [place] [facility] [address] [id number] [place] [address]- 5537 Jul, [facility] [place] [facility] [address] [id number] [place] [address]- 3858 Jul, [facility] [place] [facility] [address] [id number] [place] [address]- 2168 Jul, [facility] [place] [facility] [address] [id number] [place] [address]- 6070 Jul, [facility] [place] [facility] [address] [id number] [place] [address]- 3566 Jul, [facility] [place] [facility] [address] [id number] [address]- 9792 Jul, [facility] [place] [facility] [address] [id number], [place] [address]- 5498 Jun, [facility] [place] [facility] [address] [id number] [place] [address]- 1027 Jun, [facility] [place] [facility] [address] [id number] [place] [address]- 2311 Jun, [facility] [place] [facility] [address] [id number] [place] [address]- 4587 Jun, [facility] [place] [facility] [address] [id number] [place] [address]- 3383 30 Jun, 2014 [facility] [place] [facility] [address] [id number] [place] [address]- 9360 30 Jun, 2014 [facility] [place] [facility] [address] [id number] [place] [address]- 4946 15 Jun, 2014 [facility] [place] [facility] [address] [id number] [place] [address]- 8662 15 Jun, 2014 [facility] [place] [facility] [address] [id number] [place] [address]- 7020 22 May, 2014 [facility] [place] [facility] [address] [id number] [place] [address]- 0166 22 May, 2014 [facility] [place] [facility] [address] [id number] [place] [address]- 8578 18 May, 2014 [facility] [place] [facility] [address] [id number] [place] [address]- 8151 18 May, 2014 [facility] [place] [facility] [address] [id number] [place] [address]- 9744 09 May, 2014 [facility] [place] [facility] [address] [id number] [place] [address]- 5380 08 May, 2014 [facility] [place] [facility] [address] [id number] [place] [address]- 9751 02 May, 2014 [facility] [place] [facility] [address] [id number] [place] [address]- 2540 May, [facility] [place] [facility] [address] [id number] [place] [address]- 0379 Apr, [facility] [place] [facility] [address] [id number] [place] [address]- 0459 Apr, [facility] [place] [facility] [address] [id number] [place] [address]- 3824 Apr, [facility] [place] [facility] [address] [id number] [place] [address]- 0176 Apr, [facility] [place] [facility] [address] [id number] [place] [address]- 0097 Mar, [facility] [place] [facility] [address] [id number] [place] [address]- 5297 Mar, [facility] [place] [facility] [address] [id number] [place] [address]- 6581 Mar, [facility] [place] [facility] [address] [id number] [place] [address]- 5332 Mar, [facility] [place] [facility] [address] [id number] [place] [address]- 4981 Mar, [facility] [place] [facility] [address] [id number] [place] [address]- 1012 Mar, [facility] [place] [facility] [address] [id number] [place] [address]- 0926 Jan, [facility] [place] [facility] [address] [id number] [place] [address]- 7125 Jan, [facility] [place] [facility] [address] [id number] [place] [address]- 3854 Jan, [facility] [place] [facility] [address] [id number] [place] [address]- 9988 Jan, [facility] [place] [facility] [address] [id number] [place] [address]- 4956 Jan, [facility] [place] [facility] [address] [id number], [place] [address]- 8798 Jan, [facility] [place] [facility] [address] [id number] [place] [address]- 0319 Jan, [facility] [place] [facility] [address] [id number] [place] [address]- 7419 Jan, [facility] [place] [facility] [address] [id number] [place] [address]- 8583 Jan, [facility] [place] [facility] [address] [id number], [place] [address]- 5982 Jan, [facility] [place] [facility] [address] [id number] [place] [address]- 0417 Jan, [facility] [place] [facility] [address] [id number] [place] [address]- 0216 Jan, [facility] [place] [facility] [address] [id number] [place] [address]- 7281 December, [facility] [place] [facility] [address] [id number] [place] [address]- 2079 December, [facility] [place] [facility] [address] [id number] [place] [address]- 4460 December, [facility] [place] [facility] [address] [id number] [place] [address]- 6391 December, [facility] [place] [facility] [address] [id number] [place] [address]- 3964 Dec, [facility] [place] [facility] [address] [id number] [place] [address]- 8344 Dec, [facility] [place] [facility] [address] [id number] [place] [address]- 7049 Dec, [facility] [place] [facility] [address] [id number] [place] [address]- 1769 Dec, [facility] [place] [facility] [address] [id number] [place] [address]- 1379 Dec, [facility] [place] [facility] [address] [id number] [place] [address]- 3129 Dec, [facility] [place] [facility] [address] [id number] [place] [address]- 0517 Dec, [facility] [place] [facility] [address] [id number] [place] [address]- 1524 Dec, [facility] [place] [facility] [address] [id number] [place] [address]- 0190 Dec, [facility] [place] [facility] [address] [id number] [place] [address]- 2926 Dec, [facility] [place] [facility] [address] [id number] [place] [address]- 9404 Dec, [facility] [place] [facility] [address] [id number] [place] [address]- 7306 Dec, [facility] [place] [facility] [address] [id number] [place] [address]- 2838 Dec, [facility] [place] [facility] [address] [id number] [place] [address]- 6115 Dec, [facility] [place] [facility] [address] [id number] [place] [address]- 3229 Oct, [facility] [place] [facility] [address] [id number] [place] [address]- 0149 Oct, [facility] [place] [facility] [address] [id number] [place] [address]- 7845 Oct, [facility] [place] [facility] [address] [id number] [place] [address]- 4555 Oct, [facility] [place] [facility] [address] [id number] [place] [address]- 6894 Oct, [facility] [place] [facility] [address] [id number] [place] [address]- 6355 Oct, [facility] [place] [facility] [address] [id number] [place] [address] Oct, [facility] [place] [facility] [address] [id number] [place] [address]- 5962 Oct, [facility] [place] [facility] [address] [id number] [place] [address]- 9957 Oct, [facility] [place] [facility] [address] [id number] [place] [address]- 6186 Oct, [facility] [place] [facility] [address] [id number] [place] [address]- 6555 Sep, [facility] [address], [place] [address]- 2780 Sep, [facility] [address], [place] [address]- 1169 Sep, [facility] [address], [place] [address]- 5393 Sep, [facility] [address], [place] [address]- 5013 Sep, [facility] [address], [place] [address]- 2768 Sep, [facility] [id number] [place] [address] 78804- 3708 Aug, [facility] [id number], [place] [address]- 2391 Aug, [facility] [address], [place] [address]- 8593 Jul, [facility] [address], [place] [address]- 2262 Jul, [facility] [address], [place] [address]- 7006 Jul, [facility] [address], [place] [address]- 8667 Jul, [facility] [address], [place] [address]- 2400 Jul, IMMUNIZATIONS No Known Immunizations SOCIAL HISTORY Never Assessed REASON FOR VISIT MAT F/U, pt wants to talk about decreasing dose of suboxone and increase wellbutrin PLAN OF CARE Activity Details Follow Up 3 Months Reason:MAT VITAL SIGNS Height 66 in 2017-07-23 Temperature 98.1 degrees Fahrenheit 2017-07-23 Heart Rate 96 bpm 2017-07-23 Respiratory Rate 18 2017-07-23 MEDICATIONS Medication Instructions Dosage Frequency Start Date End Date Duration Status Vitamin D (Ergocalciferol) 11843 UNIT Orally TWICE WEEKLY X8 WKS-AFTER 8 WEEKS TAKEN OTC VITAMIN D 2000 IU 1 capsule Mar, Not-Taking Wellbutrin SR 150 MG Orally Once a day 1 tablet 24h Jul, 30 day (s) Active Wellbutrin SR 100 mg Orally Once a day 1 tablet 24h 30 Active Enalapril Maleate 10 mg Orally twice a day 1 tablet 12h 30 Active Vitamin B12 Active Zofran ODT 4 MG Orally 3 times a day, prn take 1 tablets by Oral route every 8 hours PRN Nausea or Vomiting Sep, Active Dicyclomine HCl 10 mg Orally 2 times a day prn 1 tablet 30 Active Fish Oil 1000 MG Orally Once a day 2 capsule 24h Active Wellbutrin SR 150 MG Orally Once a day 1 tablet 24h Jul, 30 day (s) Active Lovastatin 40 mg Orally Once a day 1 tablet with a meal 24h Mar, 90 days Active Humalog 100 UNIT/ML Subcutaneous pump as per pump-must have appt for refills inject Units by Subcutaneous route every hour per insulin pump Active Glucagon Emergency 1 MG as directed Apr, Active Suboxone 8-2 MG Sublingual Once a day 2 film under the tongue and allow to dissolve 24h Aug, 28 days Active Vitamin D 2000 UNIT Orally Once a day 1 tablet 24h Active Vitamin B-6 100 MG Orally Once a day 1 tablet 24h Not-Taking Milk Thistle 500 MG Not-Taking Tylenol 8 Hour Active RESULTS No Results PROCEDURES No Known [...]
--- NOTE | 2018-08-30 20:50 | NUR ---
PER LAB, UNABLE TO OBTAIN BLOOD SAMPLE AT THIS TIME.
--- OUTSIDE RECORDS SUMMARY | 2018-08-30 20:50 | XMS REPORT ---
Author Author CARLOTTA MIR Organization [facility] Address [address] [place] [address] Care Team Providers Care Final Inspector And Tester Name Role Phone ADEOLA CARLOTTA Unavailable PROBLEMS Type Condition ICD9-CM Code PUU15-DD Code Onset Dates Condition Status SNOMED Code Problem Essential hypertension I10 Active 88272786 Problem Addiction to drug F19.20 Active 285580353 Problem Diarrhea, unspecified type R19.7 Active 11740620 Problem Right acute serous otitis media, recurrence not specified H65.01 Active 033061695 Problem Mild episode of recurrent major depressive disorder F33.0 Active 491506160 Problem Encounter for therapeutic drug level monitoring Z51.81 Active 113708458 Problem 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 Active 418513302 Problem Opioid use disorder, severe, in sustained remission F11.21 Active 23169697 Problem Irritable bowel syndrome with constipation K58.1 Active 120415692 Problem Recurrent UTI N39.0 Active 774617605 Problem Gastroparesis K31.84 Active 120444045 Problem Acute bilateral low back pain without sciatica M54.5 Active 967086688 Problem Chronic kidney disease, stage 3 N18.3 Active 719304486 Problem Dysthymia F34.1 Active 83326590 Problem 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 Active 07255040 Problem Mixed hyperlipidemia E78.2 Active 004168108 ALLERGIES No Information SOCIAL HISTORY Never Assessed PLAN OF CARE Activity Details Follow Up 4 days Reason: VITAL SIGNS MEDICATIONS Unknown Medications RESULTS No Results PROCEDURES Procedure Date Ordered Result Body Site Psychotherapy, patient &/family, 30 minutes, established patient Oct 12, 2016 IMMUNIZATIONS No Known Immunizations MEDICAL (GENERAL) HISTORY Type Description Date Medical History Type 1 Diabetes mellitus Medical History hx of hypertension Medical History gastroparesis Medical History hx of renal insufficiency 09/2014 Medical History Unspecified renal failure Medical History Gastroparesis due to DM Surgical History oral surgery at age 16 Hospitalization History Gastroperisis 2011
--- OUTSIDE RECORDS SUMMARY | 2018-08-30 20:50 | XMS REPORT ---
Author WOJCIECH Herrera [facility] [employer] Address Unknown Phone Unavailable Care Team Providers Care Director Loan Name Role Phone WOJCIECH ARNETT Unavailable Allergies, Adverse Reactions, Alerts Substance Reaction Event Type Penicillin V Potassium rash Drug Allergy Cipro nausea and vomiting Drug Allergy Bactrim DS rash Drug Allergy Problems Problem Type Condition Code Onset Dates Condition Status Problem Health examination of defined subpopulation V70.5 Active Problem Abdominal pain, generalized 789.07 Active Problem Unspecified constipation 564.00 Active Assessment Dysuria R30.0 Active Problem Elevated blood pressure reading without [...] Instructions Start Date End Date Status Dosage Fish Oil [facility] [address]-86 1000 MG Orally Once a day 2 capsule Lovastatin [facility] [address]-87 20 MG Orally Once a day March 30, 2015 1 tablet with a meal Reglan [facility] [address]-39 5 MG Orally 4 times a day prn Apr 28, 2015 1 tablet Vitamin D (Ergocalciferol) [facility] [address]-70 57527 UNIT Orally TWICE WEEKLY X8 WKS-AFTER 8 WEEKS TAKEN OTC VITAMIN D 2000 IU March 30, 2015 1 capsule Humalog [facility] [address]-34 100 UNIT/ML Subcutaneous pump as per pump inject Units by Subcutaneous route every hour per insulin pump Enalapril Maleate [facility] [address]-28 5 MG Orally Twice a day 1 tablet Rocephin [facility] [address]-82 1 GM Injection Once a day Jun 28, 2015 Jul 01, 2015 as directed Procedures Procedure Coding System Code Date URINE CULTURE/COLONY COUNT CPT-4 40878 Jun 28, 2015 Office Visit, Est Pt., Level 3 CPT-4 76219 Jun 28, 2015 URINALYSIS, AUTO, W/O SCOPE CPT-4 79347 Jun 28, 2015 THER/PROPH/DIAG INJ, SC/IM CPT-4 31704 Jun 28, 2015 ROCEPHIN 1 GM (IM) CPT-4 J0696 Jun 28, 2015 Vital Signs Date/Time: Jun 28, 2015 Temperature 97.3 F Weight 178.4 lbs Height 66 in BMI 28.79 Index Blood Pressure Diastolic 64 mmHg Blood Pressure Systolic 112 mmHg Cardiac Monitoring Heart Rate 70 bpm Results Name Result Date Reference Range Unit Abnormality Flag UA W/CULTURE IF INDICATED (IN HOUSE) CULTURE, URINE Summary Purpose eClinicalWorks Submission
--- OUTSIDE RECORDS SUMMARY | 2018-08-30 20:50 | XMS REPORT ---
Author Author NOEMY MORGAN Organization [facility] Address [address] 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 Active 29000272 Problem Chronic kidney disease, stage 3 N18.3 Active 730114363 Problem CHI I (cervical intraepithelial neoplasia I) N87.0 Active 465627594 Problem Mild episode of recurrent major depressive disorder F33.0 Active 691848637 Problem Addiction to drug F19.20 Active 475564707 Problem Essential hypertension I10 Active 19195484 Problem Opioid use disorder, severe, in sustained remission F11.21 Active 84045166 Problem Irritable bowel syndrome with constipation K58.1 Active 408385143 ALLERGIES No Information ENCOUNTERS Encounter Location Date Diagnosis [facility] [address] [place] [address] Jan, [facility] [address], [place] [address] December, Opioid use disorder, severe, in early remission F11.21 [facility] [address] [place] [address] December, Opioid use disorder, severe, in sustained remission F11.21 [facility] [id number] [address] December, Opioid use disorder, severe, in sustained remission F11.21 and 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 [facility] [id number] [place] [address] 23768- 8302 December, Opioid use disorder, severe, in early remission F11.21 [facility] [address] [place] [address] Dec, Opioid use disorder, severe, in sustained remission F11.21 [facility] [id number] [place] [address] 13548- 7548 Dec, 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 ; Unprotected sexual intercourse Z72.51 ; Pain of left thumb M79.645 ; Mixed hyperlipidemia E78.2 ; Gastroparesis K31.84 ; Essential hypertension I10 and Irritable bowel syndrome with constipation K58.1 [facility] [address] [address] Dec, Opioid use disorder, severe, in early remission F11.21 [facility] [id number] [place] [address] 42667- 4806 Oct, [facility] [id number] [place] [address] 42589- 7735 Oct, Opioid use disorder, severe, in early remission F11.21 [facility] [id number] [place] [address] 12713- 5880 Oct, [facility] [id number] [place] [address] 64566- 2652 Oct, Opioid use disorder, severe, 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 [facility] [id number] [place] [address] 09765- 3167 Oct, [facility] [address] [address] Oct, [facility] [address] [place] [address] Oct, Opioid use disorder, severe, in sustained remission F11.21 [facility] [id number] [place] [address] 88185- 8609 Sep, [facility] [address], [place] [address] Sep, [facility] [id number] [place] [address] 80397- 3325 Sep, Opioid use disorder, severe, 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 [facility] [id number] [place] [address] 06744 2546 Aug, Opioid use disorder, severe, 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 [facility] [id number] [place] [address] 61115- 4449 Jul, [place] [id number] [place] [address] 73082- 2043 Jul, Chronic kidney disease, stage 3 N18.3 ; Dysthymia F34.1 and Opioid use disorder, severe, in sustained remission F11.21 [facility] [address] [place] [address] Jul, Opioid use disorder, severe, in sustained remission F11.21 [facility] [id number] [place] [address] 58822- 4631 Jul, Long-term use of high-risk medication Z79.899 and Chronic kidney disease, stage 3 N18.3 [facility] [id number] [place] [address] 58895 2545 Jul, Opioid use disorder, severe, 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 [facility] [address], [place] [address] Jul, [facility] [id number] [place] [address] 39619 2546 Jun, [facility] [id number] [place] [address] 48798- 2546 Jun, [facility] [id number] [place] [address] 77188- 3851 Jun, Opioid use disorder, moderate, dependence F11.20 and Opioid use disorder, severe, 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 [facility] [address] [place] [address] 50627- 6139 Jun, [facility] [id number] [place] [address] 96985- 7906 Jun, Long-term use of high-risk medication Z79.899 [facility] [id number] [place] [address] 27651- 7956 Jun, CHI I (cervical intraepithelial neoplasia I) N87.0 [place] [id number] [place] [address] 94984- 3400 22 May, 2017 Opioid use disorder, severe, 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 [place] [id number] [place] [address] 28973- 5877 18 May, 2017 Chronic kidney disease, stage 3 N18.3 [place] [address] 06199- 4612 14 May, 2017 Chronic kidney disease, stage 3 N18.3 [facility] [address] [place] [address] 05 May, 2017 Opioid use disorder, severe, in sustained remission F11.21 [facility] [id number] [place] [address] 62801- 6807 Apr, LGSIL on Pap smear of cervix R87.612 [facility] [address] [place] [address] Apr, [facility] [id number] [place] [address] 45025- 6840 Apr, Opioid use disorder, severe, 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 [facility] [id number] [place] [address] 42874- 4315 Apr, Opioid use disorder, severe, 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 [facility] [id number] [place] [address] 44816- 0611 Apr, Opioid use disorder, severe, 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 [place] [address] [place] [address] 46847- 4360 18 Apr, 2017 Opioid use disorder, severe, 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 [facility] [id number] [place] [address] 23041- 3599 14 Apr, 2017 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 [facility] [id number] [place] [address] 77942- 4308 10 Apr, 2017 Opioid use disorder, severe, 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 [facility] [address] [place] [address] Apr, Opioid use disorder, severe, in sustained remission F11.21 [facility] [id number] [place] [address] 77852- 3845 09 Apr, 2017 Opioid use disorder, severe, 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 [facility] [id number] [place] [address] 52995- 8150 Apr, Mild episode of recurrent major depressive disorder F33.0 and Right acute serous otitis media, recurrence not specified H65.01 [facility] [id number] [place] [address] 69584- 6767 Mar, [facility] [id number] [place] [address] 24632- 2083 Mar, Opioid use disorder, severe, 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 [facility] [id number] [place] [address] 87950- 2914 Mar, [facility] [address] [place] [address] Mar, Opioid use disorder, severe, in sustained remission F11.21 [facility] [address] [place] [address] Mar, Opioid use disorder, severe, in sustained remission F11.21 [facility] [id number] [place] [address] 15861- 8583 Mar, Opioid use disorder, severe, 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 [facility] [address], [place] [address] Jan, Opioid use disorder, severe, in early remission F11.21 [facility] [address] [place] [address] Jan, Opioid use disorder, severe, in sustained remission F11.21 [facility] [address] [place] [address] Jan, Opioid use disorder, severe, in sustained remission F11.21 [facility] [address] [place] [id number] [place] [address] 94035- 1162 Jan, Opioid use disorder, severe, in early remission F11.21 [facility] [address] [place] [address] Jan, Opioid use disorder, severe, in sustained remission F11.21 [id number] [place] [address] 32187- 3215 December, Opioid use disorder, severe, in early remission F11.21 [facility] [address] [place] [address] December, Opioid use disorder, severe, in sustained remission F11.21 [place] [id number] [place] [address] 10822- 8147 December, Routine gynecological examination Z01.419 and Chronic kidney disease, stage 3 N18.3 [place] [id number] [place] [address] 68042- 5891 December, Chronic kidney disease, stage 3 N18.3 ; 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 ; Gastroparesis K31.84 ; Essential hypertension I10 and Irritable bowel syndrome with constipation K58.1 [facility] [address] [place] [address] December, Opioid use disorder, severe, in sustained remission F11.21 [facility] [address] [place] [id number] [place] [address] 17715- 8479 December, Opioid use disorder, severe, 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 [facility] [address] [place] [address] December, Opioid use disorder, severe, in sustained remission F11.21 [facility] [id number] [place] [address] 90374- 1494 December, Encounter for therapeutic drug level monitoring Z51.81 [facility] [address] [place] [address] December, Opioid use disorder, severe, in sustained remission F11.21 [facility] [address] [place] [address] Dec, Opioid use disorder, severe, in sustained remission F11.21 [facility] [id number] [place] [address] 64228- 8607 Dec, Opioid use disorder, severe, 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 [facility] [id number] [place] [address] 92733- 1857 Dec, [facility] [address] [place] [address] Dec, Opioid use disorder, severe, in sustained remission F11.21 [facility] [id number] [place] [address] 42266- 3750 Dec, Opioid use disorder, severe, in early remission F11.21 [facility] [address] [place] [address] Dec, Opioid use disorder, severe, in sustained remission F11.21 [facility] [address] [place] [id number] [place] [address] 48414- 3964 Dec, 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 [facility] [address] [place] [id number] [place] [address] 28867- 6592 Dec, Opioid use disorder, severe, in sustained remission F11.21 ; Encounter for therapeutic drug level monitoring Z51.81 and Other care 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.899 [facility] [address] [place] [address] Oct, Opioid use disorder, severe, in sustained remission F11.21 [facility] [address] [place] [id number] [place] [address] 26614- 0361 Oct, Opioid use disorder, severe, 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 [facility] [id number] [place] [address] 47380- 8223 15 Oct, 2016 [facility] [address] [place] [address] 15 Oct, 2016 Opioid use disorder, severe, in sustained remission F11.21 [facility] [address] 06636- 4506 15 Oct, 2016 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 [facility] [address] 01492- 0652 14 Oct, 2016 Routine gynecological examination Z01.419 [place] [address] 56057- 6821 07 Oct, 2016 Opioid use disorder, severe, 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 [facility] [address] 36972- 7247 06 Oct, 2016 Opioid use disorder, severe, 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 [facility] [address] 78394- 6166 Oct, Opioid use disorder, severe, in early remission F11.21 [facility] [address] [place] [address] Oct, Opioid use disorder, severe, in sustained remission F11.21 [facility] [id number] [place] [address] 83190- 9239 Oct, Opioid use disorder, severe, 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 [facility] [id number] [place] [address] 52481- 5668 Oct, Opioid use disorder, severe, 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 [facility] [address] [place] [address] Oct, Opioid use disorder, severe, in sustained remission F11.21 [facility] [address] 26199- 7756 20 Oct, 2016 Opioid use disorder, severe, in sustained remission F11.21 ; Encounter for therapeutic drug level monitoring Z51.81 and 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 [facility] [id number] [place] [address] 95420- 9193 16 Oct, 2016 [facility] [address] [place] [address] 14 Oct, 2016 Opioid use disorder, severe, in early remission F11.21 [facility] [address] [place] [address] 10 Oct, 2016 Opioid use disorder, severe, 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 [facility] [address] 16670- 6642 09 Oct, 2016 Opioid use disorder, severe, 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 [facility] [address] 00541- 7908 08 Oct, 2016 [facility] [address] 50258- 0212 Oct, [facility] [id number] [place] [address] 56014- 2211 Oct, [facility] [address] [place] [address] Oct, Opioid use disorder, severe, 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 [facility] [id number] [place] [address] 90043- 3543 Sep, Opioid use disorder, severe, 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 [facility] [address] [place] [address] Sep, Opioid use disorder, severe, 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 [facility] [address] 17775- 9866 Sep, Opioid use disorder, severe, 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 ; 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 and Encounter for therapeutic drug level monitoring Z51.81 [facility] [address] [place] [address]- 9928 Sep, [facility] [address] 15093- 2307 Sep, [facility] [address] 83303- 4096 Sep, Opioid use disorder, severe, 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 ; 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 ; Chronic kidney disease, stage 3 N18.3 ; Essential hypertension I10 and Irritable bowel syndrome with constipation K58.1 [facility] [address] [place] [address] Sep, Opioid use disorder, severe, 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 [facility] [address] [place] [address] Sep, Opioid use disorder, severe, in early remission F11.[address] 61303- 3756 Sep, Opioid use disorder, moderate, dependence F11.20 [facility] [address] 45285- 2326 Sep, Opioid use disorder, moderate, dependence F11.20 [facility] [address] [place] [address] Sep, Opioid use disorder, severe, in early remission F11.[address] 66557- 9439 Sep, Opioid use disorder, severe, 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 [facility] [address] [place] [address] Aug, Opioid use disorder, severe, 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 [facility] [address] [place] [address] 51422- 7603 Aug, Opioid use disorder, moderate, dependence F11.20 [facility] [address] 68608 [address]4956 Aug, Bug bite without infection, initial encounter W57.XXXA [place] [address], [place] [address] 1342 Aug, Opioid use disorder, moderate, dependence F11.20 [facility] [address] [place] [address] Aug, [facility] [id number] [place] [address] 10627- 5576 19 Aug, 2016 Opioid use disorder, severe, 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 ; 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 ; Encounter for therapeutic drug level monitoring Z51.81 and 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 [facility] [address] [place] [address] 15 Aug, 2016 [facility] [id number] [place] [address] 43284- 1988 15 Aug, 2016 Opioid use disorder, moderate, dependence F11.20 ; Other care home (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 Z79.899 and Encounter for therapeutic drug level monitoring Z51.81 [facility] [id number] [place] [address] 49272- 1168 13 Aug, 2016 [facility] [id number] [place] [address] 94853- 1944 Aug, Non-intractable vomiting with nausea, unspecified vomiting type R11.2 [facility] [id number] [place] [address] 52254- 3663 Aug, Opioid use disorder, moderate, dependence F11.20 and Non- intractable vomiting with nausea, unspecified vomiting type R11.2 [facility] [address] [place] [address] 56999- 9277 Aug, [facility] [id number] [place] [address] 40417- 6921 Aug, Opioid use disorder, moderate, dependence F11.20 [facility] [id number] [place] [address] 91229- 7601 Aug, [facility] [id number] [place] [address] 38350- 8386 Jul, 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 and Opioid use disorder, moderate, dependence F11.20 [facility] [address] [place] [address] Jul, [facility] [id number] [place] [address] 86529- 0259 Jul, [facility] [id number] [place] [address] 33541- 8936 Jul, [facility] [id number] [place] [address] 96954- 3300 Jul, Addiction to drug F19.20 and Chronic kidney disease, stage 3 N18.3 [facility] [address] [place] [address] Jul, Counseling on substance use and abuse Z71.89 [place] [id number] [place] [address] 78979- 3059 Jul, Chronic kidney disease, stage 3 N18.3 [facility] [id number] [place] [address] 62254- 0140 Jul, 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 ; Diarrhea, unspecified type R19.7 and Essential hypertension I10 [facility] [id number] [place] [address] 15669- 9926 Jul, [facility] [id number] [place] [address] 03784- 5439 Jun, [facility] [id number] [place] [address] 66747- 5839 Jun, [facility] [id number] [place] [address] 78711- 3904 Apr, 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 [facility] [id number] [place] [address] 59051- 8103 Apr, Sore throat and laryngitis J06.0 and Non-intractable vomiting with nausea, unspecified vomiting type R11.2 [facility] [address] [place] [address]- 8992 Apr, [facility] [id number] [place] [address] 32905- 1982 Mar, [facility] [id number] [place] [address] 75549- 0874 Jan, [facility] [id number] [place] [address] 53985- 9402 Jan, [facility] [id number] [place] [address] 50549- 3975 Jan, [place] [id number] [place] [address] 25195- 4093 December, 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 ; Gastroparesis K31.84 ; Mixed hyperlipidemia E78.2 ; Chronic kidney disease, stage 3 N18.3 ; Dysthymia F34.1 and Acute bilateral low back pain without sciatica M54.5 [facility] [id number] [place] [address] 74888- 3459 December, [facility] [id number] [place] [address] 16812- 0562 December, [facility] [id number] [place] [address] 14742- 0522 Aug, Depression F32.9 and Gastroparesis K31.84 [facility] [address] [place] [address] 24020- 4194 Aug, Gastroparesis K31.84 [facility] [id number] [place] [address] 41802- 5513 Jul, Recurrent UTI N39.0 ; Chronic kidney disease, stage 3 N18.3 and 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 [facility] [id number] [place] [address] 64171- 9108 Jul, [facility] [id number] [id number] Jul, Dental examination Z01.20 and Dental caries K02.9 [facility] [id number] [place] [address] [phone] Jul, [facility] [id number] [place] [address] [phone] Jul, Dysuria R30.0 ; Urinary tract infection N39.0 and Nausea R11.0 [facility] [id number] [place] [address] [phone] Jun, Dysuria R30.0 [facility] [id number] [place] [address] [phone] Jun, Dysuria R30.0 [facility] [id number] [place] [address] [phone] Jun, Dysuria R30.0 [facility] [id number] [place] [address] 48763- 3594 Jun, [facility] [id number] [place] [address] 84697- 2443 Jun, Acute cystitis with hematuria N30.01 [facility] [id number] [place] [address] 43555- 6634 May, [facility] [id number] [place] [address] 60669- 0428 Apr, Diabetes mellitus without mention of complication, type I [ juvenile type], not stated as uncontrolled 250.01 ; Gastroparesis due to DM 250.60 ; Contraception management V25.9 and Renal insufficiency 593.9 [facility] [id number] [place] [address] 96205- 2783 Apr, [facility] [id number] [place] [address] 50754- 0690 Apr, [facility] [address] [place] [address] 6084 Mar, [place] [id number] [place] [address] 06883- 7457 Mar, Hyperlipidemia 272.4 and Hypertensive heart and chronic kidney disease, benign, without heart failure and with chronic kidney disease stage I through stage IV, or unspecified 404.10 [place] [id number] [place] [address] 52562- 8582 Mar, Hyperlipidemia 272.4 ; Hyponatremia 276.1 ; 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 ; Hypertensive heart and chronic kidney disease, benign, without heart failure and with chronic kidney disease stage I through stage IV, or unspecified 404.10 ; Proteinuria 791.0 and Chronic kidney disease (CKD), stage III (moderate) 585.3 [place] [id number] [place] [address] 04689- 5043 Mar, [id number] [place] [address] 87698- 3515 Mar, Elevated blood sugar level 790.29 [id number] [place] [address] 64597- 3866 Mar, Low grade squamous intraepithelial lesion (LGSIL) on cervical Pap smear 795.03 [id number] [place] [address] 00384- 3149 Mar, Amenorrhea 626.0 [id number] [place] [address] 74333- 1153 Jan, Amenorrhea 626.0 ; Routine gynecological examination V72.31 and Screen for STD (sexually transmitted disease) V74.5 [id number] [place] [address] 82581- 6601 Jan, Amenorrhea 626.[id number] [place] [address] 66844- 3791 Jan, Routine gynecological examination V72.31 ; Screen for STD ( sexually transmitted disease) V74.5 ; Pap test, as part of routine gynecological examination V76.2 ; Breast cancer screening V76.10 and Amenorrhea 626.0 [facility] [address] [facility] [id number] [place] [address] 0777 December, [facility] [address] [facility] [id number] [place] [address]- 0325 Dec, [facility] [address] [facility] [id number], [place] [address] 9173 Dec, [facility] [address] [facility] [id number] [place] [address]7 Oct, [facility] [id number] [place] [address] 8363 Oct, [facility] [address] 8961 Oct, [facility] [address], [place] [address] 6748 Oct, [facility] [id number] [address] 8410 Oct, [facility] [address], [place] [address]- 4203 Oct, [facility] [address] 2304 Oct, [facility] [address], [place] [address]- 2748 Oct, [facility] [address] [facility] [id number] [place] 5589 Oct, [facility] [address] 1600 Oct, [facility] [id number], [place] [address]- 2078 Oct, [facility] [address], [place] [address]- 6425 Sep, [facility] [place] [facility] [address] [id number] [place] [address]- 1694 Sep, [facility] [place] [facility] [address] [id number] [place] [address]- 1295 Sep, [facility] [place] [facility] [address] [id number] [place] [address]- 2650 Sep, [facility] [place] [facility] [address] [id number] [place] [address]- 5437 Sep, [facility] [place] [facility] [address] [id number] [place] [address]- 6904 Sep, [facility] [place] [facility] [address] [id number] [place] [address]- 1929 Sep, [facility] [place] [facility] [address] [id number] [place] [address]- 3044 Sep, [facility] [place] [facility] [address] [id number] [place] [address]- 7101 Sep, [facility] [place] [facility] [address] [id number] [place] [address]- 5586 Sep, [facility] [place] [facility] [address] [id number] [place] [address]- 8593 Sep, [facility] [place] [facility] [address] [id number], [place] [address]- 5385 Sep, [facility] [place] [facility] [address] [id number], [place] [address]- 6381 Sep, [facility] [place] [facility] [address] [id number] [place] [address]- 9662 Sep, [facility] [place] [facility] [address] [id number], [place] [address]- 9071 Sep, [facility] [place] [facility] [address] [id number] [place] [address]- 5233 Sep, [facility] [place] [facility] [address] [id number] [place] [address]- 9189 Sep, [facility] [address] [id number] [place] [address]- 5744 Sep, [facility] [place] [facility] [address] [id number] [place] [address]- 4831 Sep, [facility] [address] [id number] [place] [address]- 8504 Sep, [facility] [address] [id number] [place] [address]- 0643 Aug, [facility] [address] [id number] [place] [address]- 9583 Aug, [facility] [address] [id number] [place] [address]- 7034 Aug, [facility] [address] [id number] [place] [address]- 8779 Aug, [facility] [address] [id number] [place] [address]- 0562 08 Aug, 2014 [facility] [address] [id number] [place] [address]- 7139 Aug, [facility] [address] [id number] [place] [address]- 2676 Aug, [facility] [place] [facility] [address] [id number] [place] [address]- 9947 Aug, [facility] [place] [facility] [address] [id number] [place] [address]- 0544 Aug, [facility] [place] [facility] [address] [id number] [place] [address]- 4471 Aug, [facility] [place] [facility] [address] [id number] [place] [address]- 0356 Aug, [facility] [place] [facility] [address] [id number] [place] [address]- 4667 Aug, [facility] [place] [facility] [address] [id number] [place] [address]- 1384 Jul, [facility] [place] [facility] [address] [id number] [place] [address]- 5536 Jul, [facility] [place] [facility] [address] [id number] [place] [address]- 1739 Jul, [facility] [place] [facility] [address] [id number] [place] [address]- 4002 Jul, [facility] [place] [facility] [address] [id number] [place] [address]- 6219 Jul, [facility] [place] [facility] [address] [id number] [place] [address]- 7454 Jul, [facility] [place] [facility] [address] [id number] [place] [address]- 8982 Jul, [facility] [place] [facility] [address] [id number] [place] [address]- 9041 Jul, [facility] [place] [facility] [address] [id number] [place] [address]- 8087 Jul, [facility] [place] [facility] [address] [id number] [place] [address]- 7020 Jul, [facility] [place] [facility] [address] [id number] [place] [address]- 3502 Jun, [facility] [place] [facility] [address] [id number], [place] [address]- 6124 Jun, [facility] [place] [facility] [address] [id number] [place] [address]- 1064 Jun, [facility] [place] [facility] [address] [id number] [place] [address]- 6980 Jun, [facility] [place] [facility] [address] [id number] [place] [address]- 1160 Jun, [facility] [place] [facility] [address] [id number] [place] [address]- 0304 30 Jun, 2014 [facility] [place] [facility] [address] [id number] [place] [address]- 4542 15 Jun, 2014 [facility] [place] [facility] [address] [id number] [place] [address]- 8102 15 Jun, 2014 [facility] [place] [facility] [address] [id number] [place] [address]- 6781 22 May, 2013 [facility] [place] [facility] [address] [id number] [place] [address]- 8357 22 May, 2013 [facility] [place] [facility] [address] [id number] [place] [address]- 6937 18 May, 2014 [facility] [place] [facility] [address] [id number] [place] [address]- 7217 18 May, 2013 [facility] [place] [facility] [address] [id number] [place] [address]- 6140 09 May, 2014 [facility] [place] [facility] [address] [id number] [place] [address]- 8756 08 May, 2014 [facility] [place] [facility] [address] [id number] [place] [address]- 2837 02 May, 2014 [facility] [place] [facility] [address] [id number] [place] [address]- 0895 02 May, 2014 [facility] [place] [facility] [address] [id number] [place] [address]- 6532 Apr, [facility] [place] [facility] [address] [id number] [place] [address]- 7229 Apr, [facility] [place] [facility] [address] [id number] [place] [address]- 6521 Apr, [facility] [place] [facility] [address] [id number] [place] [address]- 4207 Apr, [facility] [place] [facility] [address] [id number] [place] [address]- 4527 Mar, [facility] [place] [facility] [address] [id number] [place] [address]- 6257 Mar, [facility] [place] [facility] [address] [id number] [place] [address]- 3203 Mar, [facility] [place] [facility] [address] [id number] [place] [address]- 8498 Mar, [facility] [place] [facility] [address] [id number] [place] [address]- 9418 Mar, [facility] [place] [facility] [address] [id number] [place] [address]- 5096 Mar, [facility] [place] [facility] [address] [id number] [place] [address]- 0730 Jan, [facility] [place] [facility] [address] [id number] [place] [address]- 8524 Jan, [facility] [place] [facility] [address] [id number] [place] [address]- 7162 Jan, [facility] [place] [facility] [address] [id number] [place] [address]- 8097 Jan, [facility] [place] [facility] [address] [id number] [place] [address]- 5823 Jan, [facility] [place] [facility] [address] [id number] [place] [address]- 8216 Jan, [facility] [place] [facility] [address] [id number] [place] [address]- 9299 Jan, [facility] [place] [facility] [address] [id number] [place] [address]- 4278 Jan, [facility] [place] [facility] [address] [id number] [place] [address]- 6206 Jan, [facility] [place] [facility] [address] [id number] [place] [address]- 5452 Jan, [facility] [place] [facility] [address] [id number] [place] [address]- 0163 Jan, [facility] [place] [facility] [address] [id number] [place] 9073 Jan, [facility] [place] [facility] [address] [id number] [place] [address]- 8740 December, [facility] [place] [facility] [address] [id number] [place] 3798 December, [facility] [place] [facility] [address] [id number] [place] 0258 December, [facility] [place] [facility] [address] [id number] [place] [address]- 4788 December, [facility] [place] [facility] [address] [id number] [place] [address]- 8429 Dec, [facility] [place] [facility] [address] [id number] [place] [address]- 4396 Dec, [facility] [place] [facility] [address] [id number] [place] [address]- 4992 Dec, [facility] [place] [facility] [address] [id number] [place] [address]- 4619 Dec, [facility] [place] [facility] [address] [id number] [place] [address]- 6105 Dec, [facility] [place] [facility] [address] [id number], [place] [address]- 1060 Dec, [facility] [place] [facility] [address] [id number], [place] [address]- 6695 Dec, [facility] [place] [facility] [address] [id number] [place] [address]- 5802 Dec, [facility] [place] [facility] [address] [id number] [place] [address]- 6400 Dec, [facility] [place] [facility] [address] [id number] [place] [address]- 7957 Dec, [facility] [place] [facility] [address] [id number] [place] [address]- 7218 Dec, [facility] [place] [facility] [address] [id number] [place] [address]- 2241 Dec, [facility] [place] [facility] [address] [id number] [place] [address]- 5662 Dec, [facility] [place] [facility] [address] [id number] [place] [address]- 6718 Dec, [facility] [place] [facility] [address] [id number] [place] [address]- 5810 Oct, [facility] [place] [facility] [address] [id number] [place] [address]- 2482 Oct, [facility] [place] [facility] [address] [id number] [place] [address]- 5173 Oct, [facility] [place] [facility] [address] [id number] [place] [address]- 6653 Oct, [facility] [place] [facility] [address] [id number] [place] [address]- 1707 Oct, [facility] [place] [facility] [address] [id number] [place] [address]- 4017 Oct, [facility] [place] [facility] [address] [facility] [id number] [place] [address] Oct, [facility] [place] [facility] [address] [id number] [place] [address]- 3200 Oct, [facility] [place] [facility] [address] [id number] [place] [address]- 1318 Oct, [facility] [place] [facility] [address] [id number] [place] [address]- 6901 Oct, [facility] [place] [facility] [address] [id number] [place] [address]- 8468 Sep, [facility] [place] [facility] [address] [id number] [place] [address]- 0881 Sep, [facility] [id number], [place] [address]- 7338 Sep, [facility] [address], [place] [address]- 6628 Sep, [facility] [address] [facility] [id number], [place] [address]- 8561 Sep, [facility] [address], [place] [address]- 7333 Sep, [facility] [address], [place] [address]- 5411 Aug, [facility] [address], [place] [address]- 8104 Aug, [facility] [address], [place] [address]- 8909 Jul, [facility] [address], [place] [address]- 8366 Jul, [facility] [id number], [place] [address]- 0365 Jul, [facility] [address], [place] [address]- 9705 Jul, [facility] [address] [id number], [place] [address]- 8574 Jul, IMMUNIZATIONS No Known Immunizations SOCIAL HISTORY Never Assessed REASON FOR VISIT High Blood Pressure PLAN OF CARE VITAL SIGNS MEDICATIONS Unknown [...]
--- OUTSIDE RECORDS SUMMARY | 2018-08-30 20:50 | XMS REPORT ---
Author Author ALVIN CARMEN [facility] Address [address] [place] [address] Care Team Providers Care Pharmacy Assistant Name Role Phone NELLA ALVIN Unavailable PROBLEMS Type Condition ICD9-CM Code XRX70-FS Code Onset Dates Condition Status SNOMED Code Problem Essential hypertension I10 Active 57061239 Problem Addiction to drug F19.20 Active 484946510 Problem Diarrhea, unspecified type R19.7 Active 76149156 Problem Right acute serous otitis media, recurrence not specified H65.01 Active 540027902 Problem Mild episode of recurrent major depressive disorder F33.0 Active 761280413 Problem Encounter for therapeutic drug level monitoring Z51.81 Active 821732575 Problem Other 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 therapy Z79.899 Active 496105749 Problem Opioid use disorder, severe, in sustained remission F11.21 Active 52435634 Problem Irritable bowel syndrome with constipation K58.1 Active 445509523 Problem Recurrent UTI N39.0 Active 293989212 Problem Gastroparesis K31.84 Active 436914073 Problem Acute bilateral low back pain without sciatica M54.5 Active 244048317 Problem Chronic kidney disease, stage 3 N18.3 Active 453547767 Problem Dysthymia F34.1 Active 35412269 Problem 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
--- OUTSIDE RECORDS SUMMARY | 2018-08-30 20:50 | XMS REPORT ---
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 Active Assessment Essential hypertension I10 Active Assessment Diarrhea, unspecified type R19.7 Active Problem Essential hypertension I10 Active Problem Mixed hyperlipidemia E78.2 Active Problem Diarrhea, unspecified type R19.7 Active Problem Gastroparesis K31.84 Active Problem Recurrent UTI N39.0 Active Problem Dysthymia F34.1 Active Problem Acute bilateral low back pain without sciatica M54.5 Active Medications Medication Code System Code Instructions Start Date End Date Status Dosage Vitamin B12 [facility] [address]-89 not defined Enalapril Maleate [facility] [address]-53 5 mg Orally Twice a day 1 tablet Humalog [facility] [address]-75 100 UNIT/ML Subcutaneous pump as per pump inject Units by Subcutaneous route every hour per insulin pump Tylenol 8 Hour ND 0 not defined Dicyclomine HCl [facility] [address]-70 10 mg Orally 3 times a day Jul 03, 2016 Jul 10, 2016 1 capsule Vitamin D (Ergocalciferol) [facility] [address]-52 26020 UNIT Orally TWICE WEEKLY X8 WKS-AFTER 8 WEEKS TAKEN OTC VITAMIN D 2000 IU March 30, 2015 1 capsule Fish Oil [facility] [address]-68 1000 MG Orally Once a day 2 capsule Zofran ODT [facility] [address]-21 4 MG Orally 3 times a day, prn Sep 17, 2014 take 1 tablets by Oral route every 8 hours PRN Nausea or Vomiting Procedures Procedure Coding System Code Date COMPLETE CBC W/AUTO DIFF WBC CPT-4 83208 Jul 03, 2016 X-RAY EXAM OF ABDOMEN CPT-4 29038 Jul 03, 2016 GLYCATED HEMOGLOBIN TEST CPT-4 91624 Jul 03, 2016 LIPID PANEL CPT-4 80559 Jul 03, 2016 COMPREHEN METABOLIC PANEL CPT-4 02446 Jul 03, 2016 Office Visit, Est Pt., Level 4 CPT-4 22149 Jul 03, 2016 VENIPUNCT, ROUTINE* CPT-4 39844 Jul 03, 2016 Vital Signs Date/Time: Jul 03, 2016 Cardiac Monitoring Heart Rate 82 bpm Weight 177.4 lbs Height 66 in BMI 28.63 Index Blood Pressure Diastolic 86 mmHg Blood Pressure Systolic 154 mmHg Results Name Result Date Reference Range Unit Abnormality Flag CBC ----Lymphs 23 62849820 % ----Neutrophils 63 53028302 % ----Baso (Absolute) 0.1 [id number] 0.0-0.2 x10E3/uL ----Hemoglobin 16.3 44030130 11.1-15.9 g/dL H ----Eos (Absolute) 0.7 51994674 0.0-0.4 x10E3/uL H ----Hematocrit 48.9 22591303 34.0-46.6 % H ----Monocytes(Absolute) 0.4 57808708 0.1-0.9 x10E3/uL ----MCV 93 18373101 79-97 fL ----Lymphs (Absolute) 2.1 44405481 0.7-3.1 x10E3/uL ----MCH 31.0 87151880 26.6-33.0 pg ----Neutrophils (Absolute) 5.9 26992531 1.4-7.0 x10E3/uL ----MCHC 33.3 03747185 31.5-35.7 g/dL ----Immature Granulocytes 0 77164905 % ----Basos 2 11219382 % ----RDW 13.4 98264292 12.3-15.4 % ----Immature Grans (Abs) 0.0 79294692 0.0-0.1 x10E3/uL ----WBC 9.3 21324859 3.4-10.8 x10E3/uL ----Platelets 208 20160703 150-379 x10E3/uL ----Eos 8 14476678 % ----RBC 5.26 31551782 3.77-5.28 x10E6/uL ----Monocytes 4 12157005 % LIPID PANEL ----LDL Cholesterol Calc 195 97141353 0-99 mg/dL H ----VLDL Cholesterol Jarod 25 48441847 5-40 mg/dL ----Cholesterol, Total 303 20160703 100-199 mg/dL H ----HDL Cholesterol 83 20160703 >39 mg/dL ----Triglycerides 127 46181088 0-149 mg/dL A1C (IN HOUSE) ----A1C IN HOUSE 6.0 20160703 4.3 - 5.6 % ----Previous A1c 5.8 20160703 ----Lot [id number] ----Exp date [id number] ROUTINE VENIPUNCTURE CMP ----Potassium, Serum 4.8 20160703 3.5-5.2 mmol/L ----Sodium, Serum 140 20160703 136-144 mmol/L ----BUN/Creatinine Ratio 12 20160703 8-20 ----eGFR If Africn Am 48 89851338 >59 mL/min/1.73 L ----eGFR If NonAfricn Am 42 26019954 >59 mL/min/1.73 L ----Creatinine, Serum 1.62 49936519 0.57-1.00 mg/dL H ----BUN 20 20160703 6-20 mg/dL ----Glucose, Serum 168 31876186 65-99 mg/dL H ----AST (SGOT) 22 20160703 0-40 IU/L ----Globulin, Total 2.8 20160703 1.5-4.5 g/dL ----ALT (SGPT) 17 20160703 0-32 IU/L ----A/G Ratio 1.5 20160703 1.1-2.5 ----Bilirubin, Total 0.3 16246770 0.0-1.2 mg/dL ----Alkaline Phosphatase, S 58 20160703 39-117 IU/L ----Carbon Dioxide, Total 20 20160703 18-29 mmol/L ----Calcium, Serum 9.3 20160703 8.7-10.2 mg/dL ----Protein, Total, Serum 7.0 20160703 6.0-8.5 g/dL ----Albumin, Serum 4.2 20160703 3.5-5.5 g/dL ----Chloride, Serum 101 20160703 97-106 mmol/L Summary Purpose eClinicalWorks Submission
--- OUTSIDE RECORDS SUMMARY | 2018-08-30 20:50 | XMS REPORT ---
Author WOJCIECH Herrera [facility] eClinicalWorks Address Unknown Phone Unavailable Care Team Providers Care Cupola Charger Name Role Phone WOJCIECH ARNETT CP Unavailable Allergies No Known Allergies Problems Problem Type Condition Code Onset Dates Condition Status Problem Unspecified constipation 564.00 Active Problem Diabetes mellitus without mention of complication, type I [juvenile type], not stated as uncontrolled 250.01 Active Problem Abdominal pain, generalized 789.07 Active Problem Gastroparesis due to DM 250.60 Active Problem Unspecified essential hypertension 401.9 Active Problem Dysuria R30.0 Active Problem Screening for hypertension V81.1 Active Problem Unspecified renal failure 586 Active Problem Abdominal pain, epigastric 789.06 Active Problem Urinary frequency 788.41 Active Assessment Dysuria R30.0 Active Problem Elevated blood pressure reading without diagnosis of hypertension 796.2 Active Problem Health examination of defined subpopulation V70.5 Active Medications No Known Medications Procedures Procedure Coding System Code Date THER/PROPH/DIAG INJ, SC/IM CPT-4 04472 Jun 29, 2015 ROCEPHIN 1 GM (IM) CPT-4 J0696 Jun 29, 2015 Results No Known Results Summary Purpose eClinicalWorks Submission
--- OUTSIDE RECORDS SUMMARY | 2018-08-30 20:51 | XMS REPORT ---
Author Author ALVIN CARMEN [facility] Address [address] [place] [address] Care Team Providers Care Animal Impersonator Name Role Phone NELLA ALVIN Unavailable PROBLEMS Type Condition ICD9-CM Code TPY52-MA Code Onset Dates Condition Status SNOMED Code Problem Essential hypertension I10 Active 88551811 Problem Addiction to drug F19.20 Active 468714434 Problem Diarrhea, unspecified type R19.7 Active 93500396 Problem CHI I (cervical intraepithelial neoplasia I) N87.0 Active 074834702 Problem Right acute serous otitis media, recurrence not specified H65.01 Active 604590594 Problem Irritable bowel syndrome with constipation K58.1 Active 183374849 Problem Encounter for therapeutic drug level monitoring Z51.81 Active 970588197 Problem Mild episode of recurrent major depressive disorder F33.0 Active 344756493 Problem Opioid use disorder, severe, in sustained remission F11.21 Active 46489020 Problem Long-term use of high-risk medication Z79.899 Active 991132180 Problem Recurrent UTI N39.0 Active 842469471 Problem Gastroparesis K31.84 Active 530889404 Problem Acute bilateral low back pain without sciatica M54.5 Active 567741418 Problem 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
--- OUTSIDE RECORDS SUMMARY | 2018-08-30 20:51 | XMS REPORT ---
Author ALVIN Villar Organization [employer] Address Unknown Phone Unavailable Care Team Providers Care Welfare Investigator Name Role Phone ALVIN CARMEN CP Unavailable Allergies No Known Allergies Problems Problem Type Condition ICD-9 Code Onset Dates Condition Status Problem Elevated blood pressure reading without diagnosis of hypertension 796.2 Active Problem Unspecified constipation 564.00 Active Problem Health examination of defined subpopulation V70.5 Active Problem Abdominal pain, epigastric 789.06 Active Problem Urinary frequency 788.41 Active Problem Unspecified essential hypertension 401.9 Active Problem Diabetes mellitus without mention of complication, type I [juvenile type], not stated as uncontrolled 250.01 Active Problem Abdominal pain, generalized 789.07 Active Problem Screening for hypertension V81.1 Active Problem Unspecified renal failure 586 Active Medications Medication Code System Code Instructions Start Date End Date Status Dosage Humalog [facility] [id number] 100 UNIT/ML inject Units by Subcutaneous route every hour per insulin pump Results No Known Results Summary Purpose [employer] Submission
--- OUTSIDE RECORDS SUMMARY | 2018-08-30 20:51 | XMS REPORT ---
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 Active 89042588 Problem Chronic kidney disease, stage 3 N18.3 Active 163537144 Problem CHI I (cervical intraepithelial neoplasia I) N87.0 Active 178226207 Problem Mild episode of recurrent major depressive disorder F33.0 Active 568089169 Problem Addiction to drug F19.20 Active 147847007 Problem Essential hypertension I10 Active 69092251 Problem Opioid use disorder, severe, in sustained remission F11.21 Active 56071367 Problem Irritable bowel syndrome with constipation K58.1 Active 293621154 ALLERGIES No Information ENCOUNTERS Encounter Location Date Diagnosis [facility] [address] [place] [address] Mar, [facility] [id number] [place] [address] 88958- 2118 Jan, Opioid use disorder, severe, in early remission F11.21 [facility] [id number] [address] December, Opioid use disorder, severe, in early remission F11.21 [facility] [address] [place] [address] December, Opioid use disorder, severe, in sustained remission F11.21 [facility] [id number] [place] [address] 65013- 5670 December, Opioid use disorder, severe, in sustained remission F11.21 and 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 [facility] [id number] [place] [address] 59313- 5650 December, Opioid use disorder, severe, in early remission F11.21 [facility] [address] [place] [address] Dec, Opioid use disorder, severe, in sustained remission F11.21 [facility] [address] [address]- 2017 Dec, 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 ; Unprotected sexual intercourse Z72.51 ; Pain of left thumb M79.645 ; Mixed hyperlipidemia E78.2 ; Gastroparesis K31.84 ; Essential hypertension I10 and Irritable bowel syndrome with constipation K58.1 [facility] [address] 6[address]48- 3001 Dec, Opioid use disorder, severe, in early remission F11.21 [facility] [id number] [place] [address] 55629- 9668 Oct, [facility] [address] 19103- 7744 Oct, Opioid use disorder, severe, 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 [facility] [id number] [place] [address] 69392- 8753 Oct, [facility] [id number] [place] [address] 66651- 8867 Oct, Opioid use disorder, severe, 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 [facility] [address] 52717- 7286 Oct, [facility] [address] 38197- 4787 Oct, [facility] [address] [place] [address] Oct, Opioid use disorder, severe, in sustained remission F11.21 [facility] [address] [address] Sep, [facility] [id number] [place] [address] 51145- 1476 Sep, [facility] [id number] [place] [address] 51139- 1726 Sep, Opioid use disorder, severe, 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 [facility] [id number] [place] [address] 94897 2546 Aug, Opioid use disorder, severe, 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 [facility] [id number] [place] [address] 15067- 2906 Jul, [facility] [id number] [place] [address] 81552- 1607 Jul, Chronic kidney disease, stage 3 N18.3 ; Dysthymia F34.1 and Opioid use disorder, severe, in sustained remission F11.21 [facility] [address] [place] [address] Jul, Opioid use disorder, severe, in sustained remission F11.21 [facility] [id number] [place] [address] 23149- 2510 Jul, Long-term use of high-risk medication Z79.899 and Chronic kidney disease, stage 3 N18.3 [facility] [id number] [place] [address] 34171 2544 Jul, Opioid use disorder, severe, 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 [facility] [address] [address] 2546 Jul, [facility] [id number] [place] [address] 99839782- 9456 Jun, [facility] [address], [place] [address] 4416 Jun, [facility] [id number] [place] [address] 63953- 6612 Jun, Opioid use disorder, moderate, dependence F11.20 and Opioid use disorder, severe, 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 [facility] [id number] [place] [address] 55679- 6869 Jun, [place] [id number] [place] [address] 03137- 8745 Jun, Long-term use of high-risk medication Z79.899 [place] [id number] [place] [address] 49534- 5203 Jun, CHI I (cervical intraepithelial neoplasia I) N87.0 [place] [id number] [place] [address] 07067- 2518 May, Opioid use disorder, severe, 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 [facility] [id number] [place] [address] 98978- 8695 18 May, 2017 Chronic kidney disease, stage 3 N18.3 [place] [facility] [id number] [place] [address] 97057- 0313 14 May, 2017 Chronic kidney disease, stage 3 N18.3 [facility] [address] [place] [address] 05 May, 2017 Opioid use disorder, severe, in sustained remission F11.21 [place] [place] [id number] [place] [address] 33610- 8999 Apr, LGSIL on Pap smear of cervix R87.612 [facility] [address] [place] [address] Apr, [place] [id number] [place] [address] 03646- 6318 Apr, Opioid use disorder, severe, 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 [facility] [id number] [place] [address] 79566- 8016 Apr, Opioid use disorder, severe, in early remission F11.21 [facility] [address] [address] 5[address] Apr, Opioid use disorder, severe, 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 [facility] [id number] [place] [address] 81213- 2109 18 Apr, 2017 Opioid use disorder, severe, 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 [facility] [id number] [place] [address] 62780- 6013 14 Apr, 2017 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 [facility] [id number] [place] [address] 82457- 6594 10 Apr, 2017 Opioid use disorder, severe, 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 [facility] [address] [place] [address] Apr, Opioid use disorder, severe, in sustained remission F11.21 [facility] [id number] [place] [address] 39660- 1191 Apr, Opioid use disorder, severe, 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 [facility] [id number] [place] [address] 03239- 3811 Apr, Mild episode of recurrent major depressive disorder F33.0 and Right acute serous otitis media, recurrence not specified H65.01 [facility] [id number] [place] [address] 53986- 6333 Mar, [facility] [id number] [place] [address] 79585- 5909 Mar, Opioid use disorder, severe, 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 [facility] [id number] [place] [address] 32008- 6384 Mar, [facility] [address] [place] [address] Mar, Opioid use disorder, severe, in sustained remission F11.21 [facility] [address] [place] [address] Mar, Opioid use disorder, severe, in sustained remission F11.21 [facility] [address], [place] [address] 8[address] Mar, Opioid use disorder, severe, 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 [place] [id number] [place] [address] 83869- 4527 Jan, Opioid use disorder, severe, in early remission F11.21 [facility] [address] [place] [address] Jan, Opioid use disorder, severe, in sustained remission F11.21 [facility] [address] [place] [address] Jan, Opioid use disorder, severe, in sustained remission F11.21 [place] [id number] [place] [address] 03000- 1198 Jan, Opioid use disorder, severe, in early remission F11.21 [facility] [address] [place] [address] Jan, Opioid use disorder, severe, in sustained remission F11.21 [address] [id number] [place] [address] 21143- 5213 December, Opioid use disorder, severe, in early remission F11.21 [facility] [address] [place] [address] December, Opioid use disorder, severe, in sustained remission F11.21 [address] [id number] [place] [address] 98971- 0979 December, Routine gynecological examination Z01.419 and Chronic kidney disease, stage 3 N18.3 [place] [id number] [place] [address] 56794- 5935 December, Chronic kidney disease, stage 3 N18.3 ; 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 ; Gastroparesis K31.84 ; Essential hypertension I10 and Irritable bowel syndrome with constipation K58.[address] [address] December, Opioid use disorder, severe, in sustained remission F11.21 [place] [id number] [place] [address] 25622- 1507 December, Opioid use disorder, severe, 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 [facility] [address] [place] [address] December, Opioid use disorder, severe, in sustained remission F11.21 [facility] [address] [place], [place] [id number] [place] [address] 85748- 4134 December, Encounter for therapeutic drug level monitoring Z51.81 [facility] [address] [place] [address] December, Opioid use disorder, severe, in sustained remission F11.21 [facility] [address] [place] [address] Dec, Opioid use disorder, severe, in sustained remission F11.21 [place] [id number] [place] [address] 47422- 8949 Dec, Opioid use disorder, severe, 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 [address] [id number] [place] [address] 92863- 7505 Dec, [facility] [address] [place] [address] Dec, Opioid use disorder, severe, in sustained remission F11.21 [place] [id number] [place] [address] 93032- 7241 Dec, Opioid use disorder, severe, 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 [facility] [address] [place] [address] Dec, Opioid use disorder, severe, in sustained remission F11.21 [place] [id number] [place] [address] 86729- 2411 Dec, Type 1 diabetes mellitus with diabetic chronic kidney disease E10.[address] 19388- 8794 Dec, Opioid use disorder, severe, in sustained remission F11.21 ; Encounter for therapeutic drug level monitoring Z51.81 and Other coat operator ( current) drug therapy Z79.899 [facility] [address] [place] [address] Oct, Opioid use disorder, severe, in sustained remission F11.21 [facility] [id number] [place] [address] 48064- 5082 Oct, Opioid use disorder, severe, 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 [facility] [id number] [place] [address] 34648- 2466 15 Oct, 2016 [facility] [address] [place] [address] Oct, Opioid use disorder, severe, in sustained remission F11.21 [facility] [id number] [place] [address] 75280- 2420 15 Oct, 2016 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 [place] [id number] [place] [address] 86754- 2402 14 Oct, 2016 Routine gynecological examination Z01.419 [place] [address] 39797- 7609 07 Oct, 2016 Opioid use disorder, severe, in early remission F11.21 [facility] [id number] [place] [address] 17776- 7303 06 Oct, 2016 Opioid use disorder, severe, 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 [facility] [id number] [place] [address] 91861- 7430 Oct, Opioid use disorder, severe, in early remission F11.21 [facility] [address] [place] [address] Oct, Opioid use disorder, severe, in sustained remission F11.21 [facility] [id number] [place] [address] 71946- 3721 Oct, Opioid use disorder, severe, in early remission F11.21 [facility] [id number] [place] [address] 36618- 8899 Oct, Opioid use disorder, severe, in early remission F11.21 [facility] [address] [place] [address] Oct, Opioid use disorder, severe, in sustained remission F11.21 [facility] [id number] [place] [address] 10218- 4346 20 Oct, 2016 Opioid use disorder, severe, in sustained remission F11.21 ; Encounter for therapeutic drug level monitoring Z51.81 and Other residential ( current) drug therapy Z79.899 [facility] [id number] [place] [address] 01340- 8656 16 Oct, 2016 [facility] [address] [place] [address] 14 Oct, 2016 Opioid use disorder, severe, in early remission F11.21 [facility] [address] [place] [address] 10 Oct, 2016 Opioid use disorder, severe, in early remission F11.21 [facility] [id number] [place] [address] 25495 2546 09 Oct, 2016 Opioid use disorder, severe, in early remission F11.21 [facility] [id number] [place] [address] 56299 2546 08 Oct, 2016 [facility] [id number] [place] [address] 31425- 0479 07 Oct, 2016 [facility] [id number] [place] [address] 15262- 8034 Oct, [facility] [address] [place] [address] Oct, Opioid use disorder, severe, in early remission F11.21 [facility] [id number] [place] [address] 20376 2542 Sep, Opioid use disorder, severe, in early remission F11.21 [facility] [address] [place] [address] Sep, Opioid use disorder, severe, 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 [facility] [id number] [place] [address] 89134- 2542 Sep, Opioid use disorder, severe, 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 ; Other coat operator (current) drug therapy Z79.899 and Encounter for therapeutic drug level monitoring Z51.81 [facility] [address] [place], [place] [id number] [place] [address] 41618- 1938 Sep, [facility] [address] [place], [place] [id number] [place] [address] 07751- 0431 Sep, [place] [id number] [place] [address] 82053- 9934 Sep, Opioid use disorder, severe, 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 ; 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 ; Chronic kidney disease, stage 3 N18.3 ; Essential hypertension I10 and Irritable bowel syndrome with constipation K58.1 [facility] [address] [place] [address] Sep, Opioid use disorder, severe, in early remission F11.21 [facility] [address] [place] [address] Sep, Opioid use disorder, severe, 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 [place] [id number] [place] [address] 64668- 8016 Sep, Opioid use disorder, moderate, dependence F11.20 [place] [id number] [place] [address] 26836- 3008 Sep, Opioid use disorder, moderate, dependence F11.20 [facility] [address] [place] [address] Sep, Opioid use disorder, severe, 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 [place] [id number] [place] [address] 65358- 4325 Sep, Opioid use disorder, severe, 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 [facility] [address] [place] [address] Aug, Opioid use disorder, severe, 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 [place] [id number] [place] [address] 44731- 8451 Aug, Opioid use disorder, moderate, dependence F11.20 [facility] [id number] [place] [address] 56384 -8622 Aug, Bug bite without infection, initial encounter W57.XXXA [facility] [id number] [place] [address] 44171- 6136 Aug, Opioid use disorder, moderate, dependence F11.20 [facility] [address] [place] [address] Aug, [facility] [address] 45083- 3639 Aug, Opioid use disorder, severe, 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 ; Other coat operator (current) drug therapy Z79.899 ; Encounter for therapeutic drug level monitoring Z51.81 and 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 [facility] [address] [place] [address] Aug, [facility] [address] 56975- 9998 Aug, Opioid use disorder, moderate, dependence F11.20 ; Other coat operator (current) drug therapy Z79.899 and Encounter for therapeutic drug level monitoring Z51.81 [facility] [id number] [place] [address] 68724- 0695 Aug, [facility] [id number] [place] [address] 91536- 2423 Aug, Non-intractable vomiting with nausea, unspecified vomiting type R11.2 [facility] [id number] [place] [address] 17100- 4428 Aug, Opioid use disorder, moderate, dependence F11.20 and Non- intractable vomiting with nausea, unspecified vomiting type R11.2 [facility] [id number] [place] [address] 62168- 7484 Aug, [facility] [id number] [place] [address] 45533- 0421 Aug, Opioid use disorder, moderate, dependence F11.20 [facility] [id number] [place] [address] 97308- 2227 Aug, [facility] [id number] [place] [address] 24735- 3070 Jul, 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 and Opioid use disorder, moderate, dependence F11.20 [facility] [address] [place] [address] Jul, [facility] [address] 99323- 6715 Jul, [facility] [id number] [place] [address] 21968- 8608 Jul, [facility] [address] 10775- 3814 Jul, Addiction to drug F19.20 and Chronic kidney disease, stage 3 N18.3 [facility] [address] [place] [address] Jul, Counseling on substance use and abuse Z71.89 [facility] [id number] [place] [address] 53766- 3156 Jul, Chronic kidney disease, stage 3 N18.3 [facility] [id number] [place] [address] 42390- 9474 Jul, 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 ; Diarrhea, unspecified type R19.7 and Essential hypertension I10 [facility] [id number] [place] [address] 69910- 9065 Jul, [facility] [id number] [place] [address] 05753- 3771 Jun, [facility] [id number] [place] [address] 97835- 3674 Jun, [facility] [id number] [place] [address] 88550- 7249 Apr, 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 [facility] [id number] [place] [address] 07879- 5145 Apr, Sore throat and laryngitis J06.0 and Non-intractable vomiting with nausea, unspecified vomiting type R11.2 [facility] [id number] [place] [address] 52788- 1505 Apr, [facility] [id number] [place] [address] 53753- 9958 Mar, [facility] [id number] [place] [address] 86927- 7357 Jan, [place] [id number] [place] [address] 00955- 1217 Jan, [place] [id number] [place] [address] 56173- 8430 Jan, [place] [id number] [place] [address] 16899- 6533 December, 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 ; Gastroparesis K31.84 ; Mixed hyperlipidemia E78.2 ; Chronic kidney disease, stage 3 N18.3 ; Dysthymia F34.1 and Acute bilateral low back pain without sciatica M54.5 [place] [id number] [place] [address] 14113- 7407 December, [place] [id number] [place] [address] 10470- 9539 December, [place] [id number] [place] [address] 83846- 0468 Aug, Depression F32.9 and Gastroparesis K31.84 [place] [place] [id number] [place] [address] 24610- 3979 Aug, Gastroparesis K31.84 [place] [id number] [place] [address] 16792- 8785 Jul, Recurrent UTI N39.0 ; Chronic kidney disease, stage 3 N18.3 and 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0 [facility] [address] [id number]- [phone] Jun, Dysuria R30.0 [facility] [address] [phone]- [phone] Jun, Dysuria R30.0 [facility] [id number] [place] [phone]- [phone] Jun, [facility] [id number] [place] [phone] Jun, Acute cystitis with hematuria N30.01 [facility] [id number] [place] [address] [id number] May, [facility] [id number] [place] [id number] Apr, Diabetes mellitus without mention of complication, type I [ juvenile type], not stated as uncontrolled 250.01 ; Gastroparesis due to DM 250.60 ; Contraception management V25.9 and Renal insufficiency 593.9 [facility] [address] [address] [place] [id number] [place] [address] 1620 Apr, [place] [address], [place] [address] Apr, [place] [id number] [place] [address]- 73[address] Mar, [place] [address], [place] [address] Mar, Hyperlipidemia 272.4 and Hypertensive heart and chronic kidney disease, benign, without heart failure and with chronic kidney disease stage I through stage IV, or unspecified 404.10 [place] [address], [place] [address] Mar, Hyperlipidemia 272.4 ; Hyponatremia 276.1 ; 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 ; Hypertensive heart and chronic kidney disease, benign, without heart failure and with chronic kidney disease stage I through stage IV, or unspecified 404.10 ; Proteinuria 791.0 and Chronic kidney disease (CKD), stage III (moderate) 585.[address], [place] [address] Mar, [id number] [place] [address]- 1649 Mar, Elevated blood sugar level 790.29 [address] [address] 88[address] Mar, Low grade squamous intraepithelial lesion (LGSIL) on cervical Pap smear 795.03 [address], [place] [address] Mar, Amenorrhea 626.0 [address], [place] [address] 14[address] Jan, Amenorrhea 626.0 ; Routine gynecological examination V72.31 and Screen for STD (sexually transmitted disease) V74.5 [address], [place] [address] Jan, Amenorrhea 626.0 [address] [id number] [address] 08 Jan, 2015 Routine gynecological examination V72.31 ; Screen for STD ( sexually transmitted disease) V74.5 ; Pap test, as part of routine gynecological examination V76.2 ; Breast cancer screening V76.10 and Amenorrhea 626.0 [facility] [address], [place] [address] 13 Dec, 2014 [facility] [id number] [address] Dec, [facility] [address], [place] [address] 74[address] Dec, [facility] [address], [place] [address] 1887 Oct, [facility] [address], [place] [address] 8613 Oct, [facility] [address], [place] [address]- 3944 Oct, [facility] [address] [address] Oct, [facility] [address], [place] [address]- 8114 Oct, [facility] [address], [place] [address]- 1108 Oct, [facility] [address], [place] [address]- 8467 Oct, [facility] [id number], [place] [address] 8[address] Oct, [facility] [address], [place] [address]- 0296 Oct, [facility] [id number], [place] [address]- 8576 Oct, [facility] [id number] [place] [address]- 4085 Oct, [facility] [address] [id number] [place] [address]- 3428 Sep, [facility] [place] [facility] [address] [id number] [place] [address]- 5308 Sep, [facility] [address] [id number] [place] [address]- 1549 Sep, [facility] [place] [facility] [address] [id number] [place] [address]- 2675 Sep, [facility] [address] [id number] [place] [address]- 1884 Sep, [facility] [place] [facility] [address] [id number] [place] [address]- 8096 Sep, [facility] [place] [facility] [address] [id number] [place] [address]- 1563 Sep, [facility] [address] [id number] [place] [address]- 5953 Sep, [facility] [place] [facility] [address] [id number] [place] [address]- 9366 Sep, [facility] [address] [id number] [place] [address]- 5415 Sep, [facility] [place] [facility] [address] [id number] [place] [address]- 2019 Sep, [facility] [place] [facility] [address] [id number] [place] [address]- 4997 Sep, [facility] [place] [facility] [address] [id number] [place] [address]- 0965 Sep, [facility] [place] [facility] [address] [id number] [place] [address]- 4335 Sep, [facility] [place] [facility] [address] [id number] [place] [address]- 0848 Sep, [facility] [place] [facility] [address] [id number] [place] [address]- 9914 Sep, [facility] [place] [facility] [address] [id number] [place] [address]- 5447 Sep, [facility] [place] [facility] [address] [id number] [place] [address]- 4930 Sep, [facility] [place] [facility] [address] [id number] [place] [address]- 1127 Sep, [facility] [place] [facility] [address] [id number] [place] [address]- 0836 Sep, [facility] [place] [facility] [address] [id number] [place] [address]- 9608 Aug, [facility] [place] [facility] [address] [id number] [place] [address]- 5232 Aug, [facility] [place] [facility] [address] [id number] [place] [address]- 3977 Aug, [facility] [place] [facility] [address] [id number] [place] [address]- 5842 Aug, [facility] [place] [facility] [address] [id number] [place] [address]- 1156 Aug, [facility] [place] [facility] [address] [id number], [place] [address]- 1540 Aug, [facility] [place] [facility] [address] [id number], [place] [address]- 3992 Aug, [facility] [place] [facility] [address] [id number] [place] [address]- 3721 Aug, [facility] [place] [facility] [address] [id number] [place] [address]- 7737 Aug, [facility] [place] [facility] [address] [id number], [place] [address]- 5114 Aug, [facility] [place] [facility] [address] [id number], [place] [address]- 9017 Aug, [facility] [place] [facility] [address] [id number] [place] [address]- 8926 Aug, [facility] [place] [facility] [address] [id number] [place] [address]- 3182 Jul, [facility] [place] [facility] [address] [facility] [id number] [place] [address]- 0169 Jul, [facility] [place] [facility] [address] [id number] [place] [address]- 3864 Jul, [facility] [place] [facility] [address] [id number] [place] [address]- 1666 Jul, [facility] [place] [facility] [address] [id number] [place] [address]- 9506 Jul, [facility] [place] [facility] [address] [facility] [id number] [place] [address]- 8901 Jul, [facility] [place] [facility] [address] [facility] [id number] [place] [address]- 1855 Jul, [facility] [place] [facility] [address] [facility] [id number] [place] [address]- 5948 Jul, [facility] [place] [facility] [address] [facility] [id number] [place] [address]- 8894 Jul, [facility] [place] [facility] [address] [facility] [id number], [place] [address]- 8147 Jul, [facility] [place] [facility] [address] [id number], [place] [address]- 1540 Jun, [facility] [place] [facility] [address] [id number] [place] [address]- 1350 Jun, [facility] [place] [facility] [address] [facility] [id number] [place] [address]- 0542 Jun, [facility] [place] [facility] [address] [facility] [id number] [place] [address]- 4465 Jun, [facility] [place] [facility] [address] [id number] [place] [address]- 9572 30 Jun, 2014 [facility] [place] [facility] [address] [id number] [place] [address]- 9357 30 Jun, 2014 [facility] [place] [facility] [address] [id number] [place] [address]- 2946 15 Jun, 2014 [facility] [place] [facility] [address] [id number] [place] [address]- 0106 15 Jun, 2014 [facility] [place] [facility] [address] [id number] [place] [address]- 3151 22 May, 2013 [facility] [place] [facility] [address] [id number] [place] [address]- 2978 22 May, 2013 [facility] [place] [facility] [address] [id number] [place] [address]- 1626 18 May, 2014 [facility] [place] [facility] [address] [id number] [place] [address]- 1854 18 May, 2013 [facility] [place] [facility] [address] [id number] [place] [address]- 9384 09 May, 2014 [facility] [place] [facility] [address] [id number] [place] [address]- 7852 08 May, 2014 [facility] [place] [facility] [address] [id number] [place] [address]- 6499 02 May, 2014 [facility] [place] [facility] [address] [id number] [place] [address]- 7352 May, 2013 [facility] [place] [facility] [address] [id number] [place] [address]- 9957 Apr, [facility] [place] [facility] [address] [id number] [place] [address]- 0791 Apr, [facility] [place] [facility] [address] [id number] [place] [address]- 0583 Apr, [facility] [place] [facility] [address] [id number] [place] [address]- 7754 Apr, [facility] [place] [facility] [address] [id number] [place] [address]- 6873 Mar, [facility] [place] [facility] [address] [id number] [place] [address]- 7715 Mar, [facility] [place] [facility] [address] [id number] [place] [address]- 8280 Mar, [facility] [place] [facility] [address] [id number] [place] [address]- 7752 Mar, [facility] [place] [facility] [address] [id number] [place] [address]- 7428 Mar, [facility] [place] [facility] [address] [id number] [place] [address]- 4392 Mar, [facility] [place] [facility] [address] [id number] [place] [address]- 4696 Jan, [facility] [place] [facility] [address] [id number] [place] [address]- 8161 Jan, [facility] [place] [facility] [address] [id number] [place] [address]- 8647 Jan, [facility] [place] [facility] [address] [id number] [place] [address]- 4042 Jan, [facility] [place] [facility] [address] [id number] [place] [address]- 6895 Jan, [facility] [place] [facility] [address] [id number], [place] [address]- 7824 Jan, [facility] [place] [facility] [address] [id number] [place] [address]- 4424 Jan, [facility] [place] [facility] [address] [id number] [place] [address]- 8475 Jan, [facility] [place] [facility] [address] [id number] [place] [address]- 1268 Jan, [facility] [place] [facility] [address] [id number] [place] [address]- 7743 Jan, [facility] [place] [facility] [address] [id number] [place] [address]- 1544 Jan, [facility] [place] [facility] [address] [id number] [place] [address]- 2780 Jan, [facility] [place] [facility] [address] [id number] [place] [address]- 1861 December, [facility] [place] [facility] [address] [id number] [place] [address]- 6451 December, [facility] [place] [facility] [address] [id number] [place] [address]- 8294 December, [facility] [place] [facility] [address] [id number] [place] [address]- 9296 December, [facility] [place] [facility] [address] [id number] [place] [address]- 9675 Dec, [facility] [place] [facility] [address] [id number] [place] [address]- 1694 Dec, [facility] [place] [facility] [address] [id number] [place] [address]- 0347 Dec, [facility] [place] [facility] [address] [id number] [place] [address]- 4425 Dec, [facility] [place] [facility] [address] [id number] [place] [address]- 5164 Dec, [facility] [place] [facility] [address] [id number] [place] [address]- 5660 Dec, [facility] [place] [facility] [address] [id number] [place] [address]- 5489 Dec, [facility] [place] [facility] [address] [id number] [place] [address]- 5162 Dec, [facility] [place] [facility] [address] [id number] [place] [address]- 7758 Dec, [facility] [place] [facility] [address] [id number] [place] [address]- 2210 Dec, [facility] [place] [facility] [address] [id number] [place] [address]- 5231 Dec, [facility] [place] [facility] [address] [id number] [place] [address]- 3485 Dec, [facility] [place] [facility] [address] [id number] [place] [address]- 7497 Dec, [facility] [place] [facility] [address] [id number] [place] [address]- 5234 Dec, [facility] [place] [facility] [address] [id number] [place] [address]- 2127 Oct, [facility] [place] [facility] [address] [id number] [place] [address]- 3562 Oct, [facility] [place] [facility] [address] [id number] [place] [address]- 8179 Oct, [facility] [place] [facility] [address] [id number] [place] [address]- 5932 29 Oct, 2013 [facility] [place] [facility] [address] [id number] [place] [address]- 6654 Oct, [facility] [place] [facility] [address] [id number] [place] [address]- 5788 Oct, [facility] [place] [facility] [address] [id number] [place] [id number] Oct, [facility] [place] [facility] [address] [id number] [place] [address]- 6849 Oct, [facility] [place] [facility] [address] [id number] [place] [address]- 7002 Oct, [facility] [place] [facility] [address] [id number] [place] [address]- 7581 27 Oct, 2013 [facility] [place] [facility] [address] [id number] [place] [address]- 1948 Sep, [facility] [id number], [place] [address]- 6969 Sep, [facility] [address], [place] [address]- 8347 Sep, [facility] [address], [place] [address]- 4638 Sep, [facility] [address] 8608 Sep, [facility] [address], [place] [address]- 8086 Sep, [facility] [address], [place] [address]- 0572 Aug, [facility] [address], [place] [address]- 1350 Aug, [facility] [address], [place] [address]- 6683 Jul, [facility] [address], [place] [address]- 2049 Jul, [facility] [address], [place] [address]- 0455 Jul, [facility] [address], [place] [address]- 4116 Jul, [facility] [id number], [place] [address]- 2370 Jul, IMMUNIZATIONS No Known Immunizations SOCIAL HISTORY Never Assessed REASON FOR VISIT new pump set up PLAN OF CARE VITAL SIGNS MEDICATIONS Medication [...]
--- OUTSIDE RECORDS SUMMARY | 2018-08-30 20:51 | XMS REPORT ---
Author Author CARLOTTA MIR Organization [facility] Address [address] [place] [address] Care Team Providers Care Cotton Expert Name Role Phone ADEOLA CARLOTTA Unavailable PROBLEMS Type Condition ICD9-CM Code LOT40-SF Code Onset Dates Condition Status SNOMED Code Problem Essential hypertension I10 Active 82350758 Problem Addiction to drug F19.20 Active 698965086 Problem Diarrhea, unspecified type R19.7 Active 01053469 Problem Right acute serous otitis media, recurrence not specified H65.01 Active 596386159 Problem Mild episode of recurrent major depressive disorder F33.0 Active 874316936 Problem Encounter for therapeutic drug level monitoring Z51.81 Active 175804933 Problem 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 Active 919738677 Problem Opioid use disorder, severe, in sustained remission F11.21 Active 24744615 Problem Irritable bowel syndrome with constipation K58.1 Active 769555890 Problem Recurrent UTI N39.0 Active 519714625 Problem Gastroparesis K31.84 Active 520856709 Problem Acute bilateral low back pain without sciatica M54.5 Active 899706837 Problem Chronic kidney disease, stage 3 N18.3 Active 823751415 Problem Dysthymia F34.1 Active 92156988 Problem 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 Active 23155873 Problem Mixed hyperlipidemia E78.2 Active 249388246 ALLERGIES No Information SOCIAL HISTORY Never Assessed PLAN OF CARE Activity Details Follow Up 1 Week Reason: VITAL SIGNS MEDICATIONS Unknown Medications RESULTS No Results PROCEDURES Procedure Date Ordered Result Body Site Psychotherapy, patient &/family, 60 minutes, established patient November 01, 2016 IMMUNIZATIONS No Known Immunizations MEDICAL (GENERAL) HISTORY Type Description Date Medical History Type 1 Diabetes mellitus Medical History hx of hypertension Medical History gastroparesis Medical History hx of renal insufficiency 09/2014 Medical History Unspecified renal failure Medical History Gastroparesis due to DM Surgical History oral surgery at age 16 Hospitalization History Gastroperisis 2011
[2018-08-30] MEDS ORDERED: ENAL10TA (20:52)
[2018-08-30] MEDS ORDERED: DICY20TA10 (20:52)
--- OUTSIDE RECORDS SUMMARY | 2018-08-30 20:52 | XMS REPORT ---
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 Active 05006053 Problem Chronic kidney disease, stage 3 N18.3 Active 075737816 Problem CHI I (cervical intraepithelial neoplasia I) N87.0 Active 352752174 Problem Mild episode of recurrent major depressive disorder F33.0 Active 451701597 Problem Addiction to drug F19.20 Active 921090640 Problem Essential hypertension I10 Active 25309311 Problem Opioid use disorder, severe, in sustained remission F11.21 Active 81623207 Problem Irritable bowel syndrome with constipation K58.1 Active 956465180 ALLERGIES No Information ENCOUNTERS Encounter Location Date Diagnosis [facility] [address] [place] [address] December, [facility] [id number] [place] [address]993[address] 4536 December, [facility] [id number] [place] [address] 52558- 8059 December, Opioid use disorder, severe, in sustained remission F11.21 and 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 [facility] [id number] [address] December, Opioid use disorder, severe, in early remission F11.21 [facility] [address] [place] [address] Dec, Opioid use disorder, severe, in sustained remission F11.21 [facility] [address] [address] Dec, 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 ; Unprotected sexual intercourse Z72.51 ; Pain of left thumb M79.645 ; Mixed hyperlipidemia E78.2 ; Gastroparesis K31.84 ; Essential hypertension I10 and Irritable bowel syndrome with constipation K58.1 [facility] [address] [address] Dec, Opioid use disorder, severe, in early remission F11.21 [facility] [address] [address]99 Oct, [facility] [address] [address]68[address] 6532 Oct, Opioid use disorder, severe, in early remission F11.21 [facility] [address] [address] Oct, [facility] [address] [address] Oct, Opioid use disorder, severe, in early remission F11.21 [facility] [address] [address] 4[address] Oct, [facility] [address] [address] 5868 Oct, [facility] [address] [place] [address] Oct, Opioid use disorder, severe, in sustained remission F11.21 [facility] [address] [address]51[address] 0[address] Sep, [facility] [address] 29739- 2836 Sep, [facility] [address] [place] [address] Sep, Opioid use disorder, severe, in early remission F11.21 [facility] [id number] [place] [address] 60560- 4857 Aug, Opioid use disorder, severe, in early remission F11.21 [facility] [id number] [place] [address] 44220- 5110 Jul, [facility] [address] 66286- 3062 Jul, Chronic kidney disease, stage 3 N18.3 ; Dysthymia F34.1 and Opioid use disorder, severe, in sustained remission F11.21 [place] [address] [place] [address] Jul, Opioid use disorder, severe, in sustained remission F11.21 [place] [id number] [place] [address] 50778- 7063 Jul, Long-term use of high-risk medication Z79.899 and Chronic kidney disease, stage 3 N18.3 [place] [id number] [place] [address] 67325- 4846 Jul, Opioid use disorder, severe, in early remission F11.21 [place] [address] [place] [address] 62471- 2231 Jul, [facility] [id number] [place] [address] 47659- 4289 Jun, [facility] [id number] [place] [address] 05418- 6059 Jun, [facility] [id number] [place] [address] 28210- 0444 Jun, Opioid use disorder, moderate, dependence F11.20 and Opioid use disorder, severe, in early remission F11.21 [facility] [id number] [place] [address] 30853- 5985 Jun, [place] [id number] [place] [address] 12500- 2153 Jun, Long-term use of high-risk medication Z79.899 [place] [id number] [place] [address] 48062- 2305 Jun, CHI I (cervical intraepithelial neoplasia I) N87.0 [place] [address] 63040- 4365 May, Opioid use disorder, severe, in early remission F11.21 [place] [id number] [place] [address] 87517- 9538 18 May, 2017 Chronic kidney disease, stage 3 N18.3 [place] [id number] [place] [address] 28423- 0901 14 May, 2017 Chronic kidney disease, stage 3 N18.3 [place] [address] [place] [address] 05 May, 2017 Opioid use disorder, severe, in sustained remission F11.21 [place] [id number] [place] [address] 62342- 9061 Apr, LGSIL on Pap smear of cervix R87.612 [facility] [address] [place] [address] Apr, [place] [id number] [place] [address] 58967- 4564 Apr, Opioid use disorder, severe, in early remission F11.21 [facility] [id number] [place] [address] 09036- 3678 Apr, Opioid use disorder, severe, in early remission F11.21 [place] [id number] [place] [address] 03025- 0975 Apr, Opioid use disorder, severe, in early remission F11.21 [place] [id number] [place] [address] 13959- 1195 Apr, Opioid use disorder, severe, in early remission F11.21 [place] [address] [address] 94[address] 14 Apr, 2017 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 [facility] [id number] [place] [address] 38758- 1747 10 Apr, 2017 Opioid use disorder, severe, in early remission F11.21 [facility] [address] [place] [address] Apr, Opioid use disorder, severe, in sustained remission F11.21 [facility] [id number] [place] [address] 25867- 1900 Apr, Opioid use disorder, severe, in early remission F11.21 [facility] [id number] [place] [address] 66125- 7196 Apr, Mild episode of recurrent major depressive disorder F33.0 and Right acute serous otitis media, recurrence not specified H65.01 [facility] [id number] [place] [address] 90310- 7059 Mar, [facility] [id number] [place] [address] 68423- 3705 Mar, Opioid use disorder, severe, in early remission F11.21 [facility] [id number] [place] [address] 87601- 6596 Mar, [facility] [address] [place] [address] Mar, Opioid use disorder, severe, in sustained remission F11.21 [facility] [address] [place] [address] Mar, Opioid use disorder, severe, in sustained remission F11.21 [facility] [id number] [place] [address] 98311- 5443 Mar, Opioid use disorder, severe, in early remission F11.21 [facility] [id number] [place] [address] 03695- 0238 Jan, Opioid use disorder, severe, in early remission F11.21 [facility] [address] [place] [address] Jan, Opioid use disorder, severe, in sustained remission F11.21 [facility] [address] [place] [address] Jan, Opioid use disorder, severe, in sustained remission F11.21 [facility] [id number] [place] [address] 65540- 3025 Jan, Opioid use disorder, severe, in early remission F11.21 [facility] [address] [place] [address] Jan, Opioid use disorder, severe, in sustained remission F11.[address] 8[address]62- 9031 December, Opioid use disorder, severe, in early remission F11.21 [facility] [address] [place] [address] December, Opioid use disorder, severe, in sustained remission F11.21 [place] [id number] [place] [address] 55274- 0959 December, Routine gynecological examination Z01.419 and Chronic kidney disease, stage [address] 59[address]- 2894 December, Chronic kidney disease, stage 3 N18.3 ; 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 ; Gastroparesis K31.84 ; Essential hypertension I10 and Irritable bowel syndrome with constipation K58.1 [facility] [address] [place] [address] December, Opioid use disorder, severe, in sustained remission F11.21 [place] [id number] [place] [address] 23836- 5239 December, Opioid use disorder, severe, in early remission F11.21 [facility] [address] [place] [address] December, Opioid use disorder, severe, in sustained remission F11.21 [place] [id number] [place] [address] 29797- 8940 December, Encounter for therapeutic drug level monitoring Z51.81 [facility] [address] [place] [address] December, Opioid use disorder, severe, in sustained remission F11.21 [facility] [address] [place] [address] Dec, Opioid use disorder, severe, in sustained remission F11.21 [facility] [id number] [place] [address] 20851- 9411 Dec, Opioid use disorder, severe, in early remission F11.21 [facility] [address] 94060- 9880 Dec, [facility] [address] [place] [address] Dec, Opioid use disorder, severe, in sustained remission F11.21 [facility] [address] [place] [address] 51731- 0490 Dec, Opioid use disorder, severe, in early remission F11.21 [facility] [address] [place] [address] Dec, Opioid use disorder, severe, in sustained remission F11.21 [facility] [address] [place] [id number] [place] [address] 46776- 1965 Dec, 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 [facility] [address] [place] [id number] [place] [address] 02719- 8700 Dec, Opioid use disorder, severe, in sustained remission F11.21 ; Encounter for therapeutic drug level monitoring Z51.81 and Other penitentiary ( current) drug therapy Z79.899 [facility] [address] [place] [address] Oct, Opioid use disorder, severe, in sustained remission F11.21 [facility] [id number] [place] [address] 18101- 6069 Oct, Opioid use disorder, severe, in early remission F11.21 [facility] [address] [place] [id number] [place] [address] 28123- 2210 15 Oct, 2016 [facility] [address] [place] [address] 15 Oct, 2016 Opioid use disorder, severe, in sustained remission F11.21 [facility] [id number] [place] [address] 23904- 6635 15 Oct, 2016 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 [place] [address] 19395- 9199 14 Oct, 2016 Routine gynecological examination Z01.419 [place] [address] 238817- 0477 07 Oct, 2016 Opioid use disorder, severe, in early remission F11.21 [place] [address] 52110- 9144 06 Oct, 2016 Opioid use disorder, severe, in early remission F11.21 [place] [address] 57178- 9496 06 Oct, 2016 Opioid use disorder, severe, in early remission F11.21 [facility] [address] [place] [address] 02 Oct, 2016 Opioid use disorder, severe, in sustained remission F11.21 [place] [id number] [place] [address] 69359- 4565 24 Oct, 2016 Opioid use disorder, severe, in early remission F11.21 [place] [id number] [place] [address] 71276- 6194 Oct, Opioid use disorder, severe, in early remission F11.21 [facility] [address] [place] [address] Oct, Opioid use disorder, severe, in sustained remission F11.21 [place] [address] 03742- 5947 20 Oct, 2016 Opioid use disorder, severe, in sustained remission F11.21 ; Encounter for therapeutic drug level monitoring Z51.81 and 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 [facility] [address] [place] [address] 63522- 5430 16 Oct, 2016 [facility] [address] [place] [address] 14 Oct, 2016 Opioid use disorder, severe, in early remission F11.21 [facility] [address] [place] [address] 10 Oct, 2016 Opioid use disorder, severe, in early remission F11.21 [facility] [id number] [place] [address] 28088- 6172 09 Oct, 2016 Opioid use disorder, severe, in early remission F11.21 [facility] [id number] [place] [address] 34781- 0756 08 Oct, 2016 [facility] [id number] [place] [address] 76136- 9100 Oct, [facility] [id number] [place] [address] 64205- 6076 Oct, [facility] [address] [place] [address] Oct, Opioid use disorder, severe, in early remission F11.21 [facility] [id number] [place] [address] 41858- 1741 Sep, Opioid use disorder, severe, in early remission F11.21 [facility] [address] [place] [address] Sep, Opioid use disorder, severe, in early remission F11.21 [facility] [id number] [place] [address] 92467- 0009 Sep, Opioid use disorder, severe, in early remission F11.21 ; Other penitentiary (current) drug therapy Z79.899 and Encounter for therapeutic drug level monitoring Z51.81 [facility] [id number] [place] [address] 83039- 0344 Sep, [facility] [id number] [place] [address] 69243- 5198 Sep, [facility] [address] [place] [id number] [place] [address] 28433- 5698 Sep, Opioid use disorder, severe, 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 ; 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 ; Chronic kidney disease, stage 3 N18.3 ; Essential hypertension I10 and Irritable bowel syndrome with constipation K58.1 [facility] [address] [place] [address] Sep, Opioid use disorder, severe, in early remission F11.21 [facility] [address] [place] [address] Sep, Opioid use disorder, severe, in early remission F11.[address] 44038- 2814 Sep, Opioid use disorder, moderate, dependence F11.[address] 60943- 0029 Sep, Opioid use disorder, moderate, dependence F11.20 [facility] [address] [place] [address] Sep, Opioid use disorder, severe, in early remission F11.[address] 66379- 7750 Sep, Opioid use disorder, severe, in early remission F11.21 [facility] [address] [place] [address] Aug, Opioid use disorder, severe, in early remission F11.[address] 53762- 4035 Aug, Opioid use disorder, moderate, dependence F11.20 [facility] [address] [place] [address] 30147 -2274 Aug, Bug bite without infection, initial encounter W57.XXXA [address] [address]51- 5036 Aug, Opioid use disorder, moderate, dependence F11.20 [facility] [address] [place] [address] Aug, [facility] [id number] [place] [address] 53829- 2973 Aug, Opioid use disorder, severe, in early remission F11.21 ; Other penitentiary (current) drug therapy Z79.899 ; Encounter for therapeutic drug level monitoring Z51.81 and 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 [facility] [address] [place] [address] 15 Aug, 2016 [facility] [address] 8[address]53- 1962 Aug, Opioid use disorder, moderate, dependence F11.20 ; Other penitentiary (current) drug therapy Z79.899 and Encounter for therapeutic drug level monitoring Z51.81 [facility] [id number] [place] [address] 55339- 4684 13 Aug, 2016 [facility] [address] 23997- 8142 Aug, Non-intractable vomiting with nausea, unspecified vomiting type R11.[address] 93261- 4760 Aug, Opioid use disorder, moderate, dependence F11.20 and Non- intractable vomiting with nausea, unspecified vomiting type R11.2 [facility] [id number] [place] [address] 50251- 8814 Aug, [facility] [id number] [place] [address] 38243- 5675 Aug, Opioid use disorder, moderate, dependence F11.20 [facility] [address] 78330- 7519 Aug, [facility] [address] 63494- 7098 Jul, 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 and Opioid use disorder, moderate, dependence F11.20 [facility] [address] [place] [address] Jul, [facility] [id number] [place] [address] 83518- 3271 Jul, [facility] [address] 18925- 6442 Jul, [facility] [address] 46599- 1112 Jul, Addiction to drug F19.20 and Chronic kidney disease, stage 3 N18.3 [facility] [address] [place] [address] Jul, Counseling on substance use and abuse Z71.89 [facility] [address] 03522- 5193 Jul, Chronic kidney disease, stage 3 N18.3 [facility] [address] 33485- 9252 Jul, 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 ; Diarrhea, unspecified type R19.7 and Essential hypertension I10 [facility] [id number] [place] [address] 18539- 0362 Jul, [facility] [address] 90500- 1103 Jun, [facility] [id number] [place] [address] 85382- 2092 Jun, [facility] [address] 88122- 2054 Apr, 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 [facility] [address] 87590- 6044 Apr, Sore throat and laryngitis J06.0 and Non-intractable vomiting with nausea, unspecified vomiting type R11.2 [facility] [address] 07858- 7116 Apr, [facility] [address] [address]- 7344 Mar, [facility] [id number] [place] [address] 28095- 8463 Jan, [facility] [id number] [place] [address] 73801- 4275 Jan, [facility] [id number] [place] [address] 54898- 3329 Jan, [facility] [id number] [place] [address] 22266- 6961 December, 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 ; Gastroparesis K31.84 ; Mixed hyperlipidemia E78.2 ; Chronic kidney disease, stage 3 N18.3 ; Dysthymia F34.1 and Acute bilateral low back pain without sciatica M54.5 [facility] [id number] [place] [address] 96446- 2418 December, [facility] [id number] [place] [address] 94812- 4355 December, [facility] [id number] [place] [address] 54308- 6515 Aug, Depression F32.9 and Gastroparesis K31.84 [facility] [id number] [place] [address] 72354- 2692 Aug, Gastroparesis K31.84 [facility] [address] [place] [address] 94987- 6735 Jul, Recurrent UTI N39.0 ; Chronic kidney disease, stage 3 N18.3 and 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 [facility] [address] [place] [address] 26092- 2758 Jul, [facility] [address] [address] Jul, Dental examination Z01.20 and Dental caries K02.9 [facility] [address] [place] [address] 41395- 9432 Jul, [facility] [id number] [place] [address] 58703 -8504 Jul, Dysuria R30.0 ; Urinary tract infection N39.0 and Nausea R11.0 [facility] [id number] [place] [address] 50049- 4355 Jun, Dysuria R30.0 [facility] [id number] [place] [address] 74264- 6604 Jun, Dysuria R30.0 [facility] [address] 92021- 3934 Jun, Dysuria R30.0 [facility] [id number] [place] [address] 15722- 2299 Jun, [facility] [id number] [place] [address] 09840- 1194 Jun, Acute cystitis with hematuria N30.01 [facility] [id number] [place] [address] 47287- 3992 May, [facility] [id number] [place] [address] [phone]- 1690 Apr, Diabetes mellitus without mention of complication, type I [ juvenile type], not stated as uncontrolled 250.01 ; Gastroparesis due to DM 250.60 ; Contraception management V25.9 and Renal insufficiency 593.9 [facility] [id number] [place] [address] 87715- [phone] Apr, [facility] [id number] [place] [address] [phone]- 5962 Apr, [facility] [id number] [place] [address] [phone]- [phone] Mar, [facility] [id number] [place] [address] [phone]- 4176 Mar, Hyperlipidemia 272.4 and Hypertensive heart and chronic kidney disease, benign, without heart failure and with chronic kidney disease stage I through stage IV, or unspecified 404.10 [facility] [id number] [place] [address] 63969- 0751 Mar, Hyperlipidemia 272.4 ; Hyponatremia 276.1 ; 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 ; Hypertensive heart and chronic kidney disease, benign, without heart failure and with chronic kidney disease stage I through stage IV, or unspecified 404.10 ; Proteinuria 791.0 and Chronic kidney disease (CKD), stage III (moderate) 585.3 [id number] [place] [address] [id number]- [phone] Mar, [id number] [place] [address] [id number]- 2096 Mar, Elevated blood sugar level 790.29 [id number] [place] [address]87- 9889 Mar, Low grade squamous intraepithelial lesion (LGSIL) on cervical Pap smear 795.03 [place] [id number] [place] [address] 33471- 4628 Mar, Amenorrhea 626.0 [place] [id number] [place] [address] 13886- 2980 Jan, Amenorrhea 626.0 ; Routine gynecological examination V72.31 and Screen for STD (sexually transmitted disease) V74.5 [id number] [place] [address] 56752- 1501 Jan, Amenorrhea 626.0 [place] [id number] [place] [address] 38132- 1031 08 Jan, 2015 Routine gynecological examination V72.31 ; Screen for STD ( sexually transmitted disease) V74.5 ; Pap test, as part of routine gynecological examination V76.2 ; Breast cancer screening V76.10 and Amenorrhea 626.0 [place] [id number] [place] [address] [place] [address]70 December, [facility] [place] [facility] [address] [id number] [place] [address]- 4583 14 Dec, 2014 [facility] [place] [facility] [address] [id number] [place] [address]- 2130 Dec, [facility] [place] [facility] [address] [id number] [place] [address]- 5781 30 Oct, 2014 [facility] [place] [facility] [address] [id number] [place] [address]- 1077 Oct, [facility] [place] [facility] [address] [id number] [place] [address]- 4212 Oct, [facility] [place] [facility] [address] [id number] [place] [address]- 5798 Oct, [facility] [place] [facility] [address] [id number] [place] [address]- 0096 Oct, [facility] [place] [facility] [address] [id number] [place] [address]- 9921 Oct, [facility] [place] [facility] [address] [id number] [place] [address]- 2095 Oct, [facility] [place] [facility] [address] [id number] [place] [address]- 5507 Oct, [facility] [place] [facility] [address] [id number] [place] [address]- 9055 Oct, [facility] [place] [facility] [address] [id number] [place] [address]- 0559 Oct, [facility] [place] [facility] [address] [id number] [place] [address]- 8769 Oct, [facility] [place] [facility] [address] [id number] [place] [address]- 6886 Sep, [facility] [place] [facility] [address] [id number] [place] [address]- 2185 Sep, [facility] [place] [facility] [address] [id number] [place] [address]- 8357 Sep, [facility] [place] [facility] [address] [id number] [place] [address]- 7646 Sep, [facility] [place] [facility] [address] [id number] [place] [address]- 7171 Sep, [facility] [place] [facility] [address] [id number] [place] [address]- 9291 Sep, [facility] [place] [facility] [address] [id number] [place] [address]- 7965 Sep, [facility] [place] [facility] [address] [id number] [place] [address]- 7943 Sep, [facility] [place] [facility] [address] [id number] [place] [address]- 9095 Sep, [facility] [place] [facility] [address] [id number] [place] [address]- 5568 Sep, [facility] [place] [facility] [address] [id number] [place] [address]- 9577 Sep, [facility] [place] [facility] [address] [id number] [place] [address]- 8915 Sep, [facility] [place] [facility] [address] [id number] [place] [address]- 0894 Sep, [facility] [place] [facility] [address] [id number] [place] [address]- 9039 Sep, [facility] [place] [facility] [address] [id number] [place] [address]- 3655 Sep, [facility] [place] [facility] [address] [id number] [place] [address]- 3336 Sep, [facility] [place] [facility] [address] [id number] [place] [address]- 2959 Sep, [facility] [place] [facility] [address] [id number] [place] [address]- 2680 Sep, [facility] [place] [facility] [address] [id number] [place] [address]- 2746 Sep, [facility] [place] [facility] [address] [id number] [place] 1716 Sep, [facility] [place] [facility] [address] [id number] [place] [address]- 8418 Aug, [facility] [place] [facility] [address] [id number] [place] [address]- 9209 Aug, [facility] [place] [facility] [address] [id number] [place] [address]- 3864 Aug, [facility] [place] [facility] [address] [id number] [place] [address]- 4475 Aug, [facility] [place] [facility] [address] [id number] [place] [address]- 2105 Aug, [facility] [place] [facility] [address] [id number] [place] [address]- 4109 Aug, [facility] [place] [facility] [address] [id number] [place] [address]- 0305 Aug, [facility] [place] [facility] [address] [id number] [place] [address]- 8016 Aug, [facility] [place] [facility] [address] [id number] [place] [address]- 1607 Aug, [facility] [place] [facility] [address] [id number] [place] [address]- 0802 Aug, [facility] [place] [facility] [address] [id number] [place] [address]- 5121 Aug, [facility] [place] [facility] [address] [id number] [place] [address]- 9140 Aug, [facility] [place] [facility] [address] [id number] [place] [address]- 5501 Jul, [facility] [place] [facility] [address] [id number] [place] [address]- 0831 Jul, [facility] [place] [facility] [address] [id number] [place] [address]- 8631 Jul, [facility] [place] [facility] [address] [id number] [place] [address]- 3332 Jul, [facility] [place] [facility] [address] [id number] [place] [address]- 4813 Jul, [facility] [place] [facility] [address] [id number] [place] [address]- 7281 Jul, [facility] [place] [facility] [address] [id number] [place] [address]- 1814 Jul, [facility] [place] [facility] [address] [id number] [place] [address]- 0822 Jul, [facility] [place] [facility] [address] [id number] [place] [address]- 4451 Jul, [facility] [place] [facility] [address] [id number] [place] [address]- 5390 Jul, [facility] [place] [facility] [address] [id number] [place] [address]- 5507 Jun, [facility] [place] [facility] [address] [id number] [place] [address]- 0267 31 Jun, 2014 [facility] [place] [facility] [address] [id number] [place] [address]- 9148 30 Jun, 2014 [facility] [place] [facility] [address] [id number] [place] [address]- 9016 30 Jun, 2014 [facility] [place] [facility] [address] [id number] [place] [address]- 5572 30 Jun, 2014 [facility] [place] [facility] [address] [id number] [place] [address]- 6753 30 Jun, 2014 [facility] [place] [facility] [address] [id number] [place] [address]- 1791 15 Jun, 2014 [facility] [place] [facility] [address] [id number] [place] [address]- 1582 15 Jun, 2014 [facility] [place] [facility] [address] [id number] [place] [address]- 9069 May, [facility] [place] [facility] [address] [id number] [place] [address]- 4189 May, [facility] [place] [facility] [address] [id number] [place] [address]- 7971 May, [facility] [place] [facility] [address] [id number] [place] [address]- 3311 May, [facility] [place] [facility] [address] [id number] [place] [address]- 5198 May, [facility] [place] [facility] [address] [id number] [place] [address]- 6881 May, [facility] [place] [facility] [address] [id number] [place] [address]- 6367 May, [facility] [place] [facility] [address] [id number] [place] [address]- 8669 May, [facility] [place] [facility] [address] [id number] [place] [address]- 8872 Apr, [facility] [place] [facility] [address] [id number] [place] [address]- 0941 Apr, [facility] [place] [facility] [address] [id number] [place] [address]- 3086 Apr, [facility] [place] [facility] [address] [id number] [place] [address]- 4562 Apr, [facility] [place] [facility] [address] [id number] [place] [address]- 1248 Mar, [facility] [place] [facility] [address] [id number] [place] [address]- 4748 Mar, [facility] [place] [facility] [address] [id number] [place] [address]- 1842 Mar, [facility] [place] [facility] [address] [id number] [place] [address]- 8342 Mar, [facility] [place] [facility] [address] [id number] [place] [address]- 6648 Mar, [facility] [place] [facility] [address] [id number] [place] [address]- 2732 Mar, [facility] [place] [facility] [address] [id number] [place] [address]- 4768 Jan, [facility] [place] [facility] [address] [id number] [place] [address]- 2498 Jan, [facility] [place] [facility] [address] [id number] [place] [address]- 4815 Jan, [facility] [place] [facility] [address] [id number] [place] [address]- 4942 Jan, [facility] [place] [facility] [address] [id number] [place] [address]- 0428 Jan, [facility] [place] [facility] [address] [id number] [place] [address]- 2249 Jan, [facility] [place] [facility] [address] [id number] [place] [address]- 7087 Jan, [facility] [place] [facility] [address] [id number] [place] [address]- 2757 Jan, [facility] [place] [facility] [address] [id number] [place] [address]- 5352 Jan, [facility] [place] [facility] [address] [id number] [place] [address]- 6064 Jan, [facility] [place] [facility] [address] [id number] [place] [address]- 5675 Jan, [facility] [place] [facility] [address] [id number] [place] [address]- 4098 Jan, [facility] [place] [facility] [address] [id number] [place] [address]- 6140 December, [facility] [place] [facility] [address] [id number] [place] [address]- 9266 December, [facility] [place] [facility] [address] [id number] [place] [address]- 7312 December, [facility] [place] [facility] [address] [id number] [place] [address]- 7959 December, [facility] [place] [facility] [address] [id number] [place] [address]- 1117 Dec, [facility] [place] [facility] [address] [id number] [place] [address]- 1759 Dec, [facility] [place] [facility] [address] [id number] [place] [address]- 1585 Dec, [facility] [place] [facility] [address] [id number] [place] [address]- 5641 Dec, [facility] [place] [facility] [address] [id number] [place] [address]- 3101 Dec, [facility] [place] [facility] [address] [id number] [place] [address]- 6780 Dec, [facility] [place] [facility] [address] [id number] [place] [address]- 8189 Dec, [facility] [place] [facility] [address] [id number] [place] [address]- 0777 Dec, [facility] [place] [facility] [address] [id number] [place] [address]- 8299 Dec, [facility] [place] [facility] [address] [id number] [place] [address]- 1884 Dec, [facility] [place] [facility] [address] [id number] [place] [address]- 7258 Dec, [facility] [place] [facility] [address] [id number] [place] [address]- 4351 Dec, [facility] [place] [facility] [address] [id number] [place] [address]- 0054 Dec, [facility] [place] [facility] [address] [id number] [place] [address]- 7358 Dec, [facility] [place] [facility] [address] [id number] [place] [address]- 8092 Oct, [facility] [place] [facility] [address] [id number] [place] [address]- 9624 Oct, [facility] [place] [facility] [address] [id number] [place] [address]- 6097 Oct, [facility] [place] [facility] [address] [id number] [place] [address]- 7188 Oct, [facility] [place] [facility] [address] [id number] [place] [address]- 0073 Oct, [facility] [place] [facility] [address] [id number] [place] [address]- 3528 Oct, [facility] [place] [facility] [address] [facility] [id number] [place] [id number] Oct, [facility] [place] [facility] [address] [id number] [place] [address]- 0154 Oct, [facility] [place] [facility] [address] [id number] [place] [address]- 8164 Oct, [facility] [place] [facility] [address] [id number] [place] [address]- 9071 Oct, [facility] [place] [facility] [address] [id number] [place] [address]- 3250 Sep, [facility] [place] [facility] [address] [id number] [place] [address]- 6798 Sep, [facility] [place] [facility] [address] [id number] [place] [address]- 0234 Sep, [facility] [place] [facility] [address] [id number] [address]- 1631 Sep, [facility] [address] [id number] [address]- 4090 Sep, [facility] [id number] [address]- 0435 Sep, [facility] [id number] [address]- 7616 Aug, [facility] [id number] [address]- 0481 Aug, [facility] [id number] [place] [address] 19480- 1259 Jul, [facility] [id number] [address]- 5139 Jul, [facility] [id number] [address]- 5877 Jul, [facility] [address] [id number] [address]- 4576 Jul, [facility] [address] [id number] [address]- 5292 Jul, IMMUNIZATIONS No Known Immunizations SOCIAL HISTORY Never Assessed REASON FOR VISIT PLAN OF CARE VITAL [...]
--- OUTSIDE RECORDS SUMMARY | 2018-08-30 20:52 | XMS REPORT ---
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
--- OUTSIDE RECORDS SUMMARY | 2018-08-30 20:53 | XMS REPORT ---
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 Active 05875439 Problem Chronic kidney disease, stage 3 N18.3 Active 744307137 Problem CHI I (cervical intraepithelial neoplasia I) N87.0 Active 269857717 Problem Mild episode of recurrent major depressive disorder F33.0 Active 581751848 Problem Addiction to drug F19.20 Active 639530108 Problem Essential hypertension I10 Active 37198488 Problem Opioid use disorder, severe, in sustained remission F11.21 Active 73883445 Problem Irritable bowel syndrome with constipation K58.1 Active 248222213 ALLERGIES No Information ENCOUNTERS Encounter Location Date Diagnosis [facility] [address] [place] [address] Mar, [facility] [id number] [place] [address] 90771- 9401 Jan, Opioid use disorder, severe, in early remission F11.21 [facility] [id number] [place] [address] 94477- 7714 December, Opioid use disorder, severe, in early remission F11.21 [facility] [address] [place] [address] December, Opioid use disorder, severe, in sustained remission F11.21 [facility] [id number] [place] [address] 13606- 7367 December, Opioid use disorder, severe, in sustained remission F11.21 and 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 [facility] [id number] [place] [address] 08223- 6345 December, Opioid use disorder, severe, in early remission F11.21 [facility] [address] [place] [address] Dec, Opioid use disorder, severe, in sustained remission F11.21 [facility] [id number] [place] [address] 45654- 9002 Dec, 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 ; Unprotected sexual intercourse Z72.51 ; Pain of left thumb M79.645 ; Mixed hyperlipidemia E78.2 ; Gastroparesis K31.84 ; Essential hypertension I10 and Irritable bowel syndrome with constipation K58.1 [facility] [id number] [place] [address] 94989- 9962 Dec, Opioid use disorder, severe, in early remission F11.21 [facility] [id number] [place] [address] 16625- 5256 Oct, [facility] [id number] [place] [address] 30959- 9918 Oct, Opioid use disorder, severe, 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 [facility] [id number] [place] [address] 26967- 8030 Oct, [facility] [id number] [place] [address] 62437- 9190 Oct, Opioid use disorder, severe, 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 [facility] [id number] [place] [address] 97427- 3909 Oct, [facility] [id number] [place] [address] 83202- 5580 Oct, [facility] [address] [place] [address] Oct, Opioid use disorder, severe, in sustained remission F11.21 [facility] [address] [address] Sep, [facility] [id number] [place] [address] 75519- 4930 Sep, [facility] [id number] [place] [address] 87514- 1154 Sep, Opioid use disorder, severe, 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 [facility] [id number] [place] [address] 89365- 4306 Aug, Opioid use disorder, severe, 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 [facility] [id number] [place] [address] 04427- 2721 Jul, [facility] [id number] [place] [address] 22094- 7518 Jul, Chronic kidney disease, stage 3 N18.3 ; Dysthymia F34.1 and Opioid use disorder, severe, in sustained remission F11.21 [facility] [address] [place] [address] Jul, Opioid use disorder, severe, in sustained remission F11.21 [facility] [id number] [place] [address] 33159- 9885 Jul, Long-term use of high-risk medication Z79.899 and Chronic kidney disease, stage 3 N18.3 [facility] [id number] [place] [address] 53290- 3195 Jul, Opioid use disorder, severe, 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 [facility] [id number] [place] [address] 70760- 9314 Jul, [facility] [id number] [place] [address] 38642- 0004 Jun, [facility] [id number] [place] [address] 06571- 0370 Jun, [facility] [id number] [place] [address] 71779- 5651 Jun, Opioid use disorder, moderate, dependence F11.20 and Opioid use disorder, severe, 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 [facility] [id number] [place] [address] 06591- 2479 Jun, [facility] [id number] [place] [address] 49946- 3244 Jun, Long-term use of high-risk medication Z79.899 [facility] [id number] [place] [address] 65627- 9989 Jun, CHI I (cervical intraepithelial neoplasia I) N87.0 [facility] [id number] [place] [address] 64069- 7126 May, Opioid use disorder, severe, 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 [facility] [id number] [place] [address] 01137- 7743 18 May, 2017 Chronic kidney disease, stage 3 N18.3 [facility] [id number] [place] [address] 23148- 8272 14 May, 2017 Chronic kidney disease, stage 3 N18.3 [facility] [address] [place] [address] 05 May, 2017 Opioid use disorder, severe, in sustained remission F11.21 [facility] [id number] [place] [address] 96448- 3873 Apr, LGSIL on Pap smear of cervix R87.612 [facility] [address] [place] [address] Apr, [facility] [id number] [place] [address] 01922- 5788 Apr, Opioid use disorder, severe, in early remission F11.21 [facility] [id number] [place] [address] 46957- 9542 Apr, Opioid use disorder, severe, in early remission F11.21 [facility] [id number] [place] [address] 04950- 3916 Apr, Opioid use disorder, severe, 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 [facility] [id number] [place] [address] 59772- 2573 18 Apr, 2017 Opioid use disorder, severe, 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 [facility] [id number] [place] [address] 81989- 3244 14 Apr, 2017 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 [facility] [id number] [place] [address] 55899- 5086 10 Apr, 2017 Opioid use disorder, severe, 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 [facility] [address] [place] [address] Apr, Opioid use disorder, severe, in sustained remission F11.21 [facility] [id number] [place] [address] 55179- 3469 Apr, Opioid use disorder, severe, in early remission F11.21 [facility] [id number] [place] [address] 07075- 8186 Apr, Mild episode of recurrent major depressive disorder F33.0 and Right acute serous otitis media, recurrence not specified H65.01 [facility] [id number] [place] [address] 32686- 6933 Mar, [facility] [id number] [place] [address] 60364- 0859 Mar, Opioid use disorder, severe, 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 [facility] [id number] [place] [address] 31304- 4225 Mar, [facility] [address] [place] [address] Mar, Opioid use disorder, severe, in sustained remission F11.21 [facility] [address] [place] [address] Mar, Opioid use disorder, severe, in sustained remission F11.21 [facility] [address] [place] [address] [address] 0[address] Mar, Opioid use disorder, severe, 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 [id number] [place] [address] 77242- 0395 Jan, Opioid use disorder, severe, in early remission F11.21 [facility] [address] [place] [address] Jan, Opioid use disorder, severe, in sustained remission F11.21 [facility] [address] [place] [address] Jan, Opioid use disorder, severe, in sustained remission F11.21 [id number] [place] [address] 75445- 1649 Jan, Opioid use disorder, severe, in early remission F11.21 [facility] [address] [place] [address] Jan, Opioid use disorder, severe, in sustained remission F11.21 [id number] [place] [address] 52964- 2183 December, Opioid use disorder, severe, in early remission F11.21 [facility] [address] [place] [address] December, Opioid use disorder, severe, in sustained remission F11.21 [id number] [place] [address] 12243- 2128 December, Routine gynecological examination Z01.419 and Chronic kidney disease, stage 3 N18.3 [id number] [place] [address] 03560- 4801 December, Chronic kidney disease, stage 3 N18.3 ; 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 ; Gastroparesis K31.84 ; Essential hypertension I10 and Irritable bowel syndrome with constipation K58.1 [facility] [address] [place] [address] December, Opioid use disorder, severe, in sustained remission F11.21 [place] [id number] [place] [address] 96280- 7836 December, Opioid use disorder, severe, 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 [facility] [address] [place] [address] December, Opioid use disorder, severe, in sustained remission F11.21 [facility] [id number] [place] [address] 74381- 5308 December, Encounter for therapeutic drug level monitoring Z51.81 [facility] [address] [place] [address] December, Opioid use disorder, severe, in sustained remission F11.21 [facility] [address] [place] [address] Dec, Opioid use disorder, severe, in sustained remission F11.21 [facility] [id number] [place] [address] 86587- 4436 Dec, Opioid use disorder, severe, 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 [facility] [id number] [place] [address] 44265- 7322 Dec, [facility] [address] [place] [address] Dec, Opioid use disorder, severe, in sustained remission F11.21 [facility] [id number] [place] [address] 08522- 0784 Dec, Opioid use disorder, severe, in early remission F11.21 [facility] [address] [place] [address] Dec, Opioid use disorder, severe, in sustained remission F11.21 [facility] [address] [place] [id number] [place] [address] 92797- 7396 Dec, 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 [facility] [address] [place] [id number] [place] [address] 60211- 4918 Dec, Opioid use disorder, severe, in sustained remission F11.21 ; Encounter for therapeutic drug level monitoring Z51.81 and Other long-term ( current) drug therapy Z79.899 [facility] [address] [place] [address] Oct, Opioid use disorder, severe, in sustained remission F11.21 [facility] [id number] [place] [address] 16005- 6302 Oct, Opioid use disorder, severe, 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 [facility] [id number] [place] [address] 43466- 1400 Oct, [facility] [address] [place] [address] Oct, Opioid use disorder, severe, in sustained remission F11.21 [facility] [id number] [place] [address] 03985- 3512 Oct, 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 [facility] [id number] [place] [address] 46160- 7897 14 Oct, 2016 Routine gynecological examination Z01.419 [facility] [id number] [place] [address] 14537- 8420 07 Oct, 2016 Opioid use disorder, severe, in early remission F11.21 [facility] [id number] [place] [address] 04050- 9957 06 Oct, 2016 Opioid use disorder, severe, 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 [facility] [id number] [place] [address] 18046- 3398 Oct, Opioid use disorder, severe, in early remission F11.21 [facility] [address] [place] [address] Oct, Opioid use disorder, severe, in sustained remission F11.21 [facility] [id number] [place] [address] 56770- 3249 Oct, Opioid use disorder, severe, in early remission F11.21 [facility] [id number] [place] [address] 73903- 2051 Oct, Opioid use disorder, severe, in early remission F11.21 [facility] [address] [place] [address] 22 Oct, 2016 Opioid use disorder, severe, in sustained remission F11.21 [facility] [id number] [place] [address] 95788- 3045 20 Oct, 2016 Opioid use disorder, severe, in sustained remission F11.21 ; Encounter for therapeutic drug level monitoring Z51.81 and Other long-term ( current) drug therapy Z79.899 [facility] [id number] [place] [address] 92297- 2755 16 Oct, 2016 [facility] [address] [place] [address] 14 Oct, 2016 Opioid use disorder, severe, 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 [facility] [address] [place] [address] 10 Oct, 2016 Opioid use disorder, severe, in early remission F11.21 [facility] [id number] [place] [address] 76190- 1452 09 Oct, 2016 Opioid use disorder, severe, in early remission F11.21 [facility] [id number] [place] [address] 39804- 7692 08 Oct, 2016 [facility] [id number] [place] [address] 51868- 1507 07 Oct, 2016 [facility] [id number] [place] [address] 74104- 2115 Oct, [facility] [address] [place] [address] Oct, Opioid use disorder, severe, 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 [facility] [id number] [place] [address] 57848- 0196 Sep, Opioid use disorder, severe, in early remission F11.21 [facility] [address] [place] [address] Sep, Opioid use disorder, severe, in early remission F11.21 [facility] [id number] [place] [address] 76586- 6476 23 Kash, 2017 Opioid use disorder, severe, 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 ; Other long-term (current) drug therapy Z79.899 and Encounter for therapeutic drug level monitoring Z51.81 [facility] [address] [place] [id number] [place] [address] 39962- 6743 Sep, [facility] [id number] [place] [address] 30940- 6959 Sep, [place] [id number] [place] [address] 31727- 4879 Sep, Opioid use disorder, severe, 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 ; 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 ; Chronic kidney disease, stage 3 N18.3 ; Essential hypertension I10 and Irritable bowel syndrome with constipation K58.1 [facility] [address] [place] [address] Sep, Opioid use disorder, severe, in early remission F11.21 [facility] [address] [place] [address] Sep, Opioid use disorder, severe, 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 [place] [id number] [place] [address] 66448- 6882 Sep, Opioid use disorder, moderate, dependence F11.20 [facility] [address] [place] [id number] [place] [address] 82467- 1061 Sep, Opioid use disorder, moderate, dependence F11.20 [facility] [address] [place] [address] Sep, Opioid use disorder, severe, 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 [facility] [address] [place] [id number] [place] [address] 19531- 6273 Sep, Opioid use disorder, severe, 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 [facility] [address] [place] [address] Aug, Opioid use disorder, severe, 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 [facility] [address] [place] [id number] [place] [address] 94832- 4572 Aug, Opioid use disorder, moderate, dependence F11.20 [facility] [id number] [place] [address] 81462 -1798 Aug, Bug bite without infection, initial encounter W57.XXXA [facility] [address] 83502- 0810 Aug, Opioid use disorder, moderate, dependence F11.20 [facility] [address] [place] [address] Aug, [facility] [address] 06266- 7363 Aug, Opioid use disorder, severe, 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 ; 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 ; Encounter for therapeutic drug level monitoring Z51.81 and 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 [facility] [address] [place] [address] Aug, [facility] [address] 98612- 0489 Aug, Opioid use disorder, moderate, dependence F11.20 ; Other long-term (current) drug therapy Z79.899 and Encounter for therapeutic drug level monitoring Z51.81 [facility] [address] 51482- 3571 Aug, [facility] [address] 77812- 7294 Aug, Non-intractable vomiting with nausea, unspecified vomiting type R11.2 [facility] [id number] [place] [address] 50984- 6794 Aug, Opioid use disorder, moderate, dependence F11.20 and Non- intractable vomiting with nausea, unspecified vomiting type R11.2 [facility] [address] 50486- 7499 Aug, [facility] [address] 44086- 3768 Aug, Opioid use disorder, moderate, dependence F11.20 [facility] [id number] [place] [address] 31136- 4308 Aug, [facility] [address] 17892- 7542 Jul, 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 and Opioid use disorder, moderate, dependence F11.20 [facility] [address] [place] [address] Jul, [facility] [address] 13876- 6324 Jul, [facility] [address] 37886- 4397 Jul, [facility] [address] 20571- 1214 Jul, Addiction to drug F19.20 and Chronic kidney disease, stage 3 N18.3 [facility] [address] [place] [address] Jul, Counseling on substance use and abuse Z71.89 [facility] [id number] [place] [address] 52209- 7991 Jul, Chronic kidney disease, stage 3 N18.3 [facility] [id number] [place] [address] 03558- 5671 Jul, 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 ; Diarrhea, unspecified type R19.7 and Essential hypertension I10 [facility] [id number] [place] [address] 12904- 3422 Jul, [facility] [id number] [place] [address] 23452- 4445 Jun, [facility] [address] 94004- 8542 Jun, [facility] [id number] [place] [address] 01042- 6888 Apr, 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 [facility] [address] [address] Apr, Sore throat and laryngitis J06.0 and Non-intractable vomiting with nausea, unspecified vomiting type R11.2 [facility] [address] [address] 0[address] Apr, [facility] [id number] [place] [address] 82720- 1592 Mar, [facility] [id number] [place] [address] 48551- 7139 Jan, [facility] [id number] [place] [address] 57691- 8958 Jan, [facility] [id number] [place] [address] 27765- 8509 Jan, [facility] [id number] [place] [address] 91587- 6556 December, 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 ; Gastroparesis K31.84 ; Mixed hyperlipidemia E78.2 ; Chronic kidney disease, stage 3 N18.3 ; Dysthymia F34.1 and Acute bilateral low back pain without sciatica M54.5 [facility] [id number] [address] December, [place] [id number] [place] [id number] December, [place] [id number] [place] [address]- 2054 Aug, Depression F32.9 and Gastroparesis K31.84 [place] [id number] [place] [address] 48[address]- 1744 Aug, Gastroparesis K31.84 [place] [id number] [address] Jul, Recurrent UTI N39.0 ; Chronic kidney disease, stage 3 N18.3 and 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 [facility] [id number] [place] [address] 14[address]- [address]489 Jul, [facility] [id number] [place] [id number] Jul, Dental examination Z01.20 and Dental caries K02.9 [facility] [address] [address] Jul, [facility] [address] [address] Jul, Dysuria R30.0 ; Urinary tract infection N39.0 and Nausea R11.0 [facility] [address] [address] Jun, Dysuria R30.0 [facility] [address] [address] Jun, Dysuria R30.0 [facility] [address] [address]- [address] Jun, Dysuria R30.0 [facility] [address] [address] Jun, [facility] [address] [address]- [address] Jun, Acute cystitis with hematuria N30.01 [facility] [address] [address] May, [facility] [address] [address] Apr, Diabetes mellitus without mention of complication, type I [ juvenile type], not stated as uncontrolled 250.01 ; Gastroparesis due to DM 250.60 ; Contraception management V25.9 and Renal insufficiency 593.9 [facility] [address] [address] Apr, [place] [id number] [address] Apr, [place] [address] [place] [id number] [place] [address]- 0059 Mar, [place] [id number] [place] [address]10- 8359 Mar, Hyperlipidemia 272.4 and Hypertensive heart and chronic kidney disease, benign, without heart failure and with chronic kidney disease stage I through stage IV, or unspecified 404.10 [place] [address] [address] Mar, Hyperlipidemia 272.4 ; Hyponatremia 276.1 ; 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 ; Hypertensive heart and chronic kidney disease, benign, without heart failure and with chronic kidney disease stage I through stage IV, or unspecified 404.10 ; Proteinuria 791.0 and Chronic kidney disease (CKD), stage III (moderate) 585.3 [place] [id number] [place] [address]- 5790 Mar, [place] [id number] [place] [address] 7[address]11- 3831 Mar, Elevated blood sugar level 790.29 [place] [id number] [place] [address] 9[address]21- 7894 Mar, Low grade squamous intraepithelial lesion (LGSIL) on cervical Pap smear 795.03 [place] [id number] [place] [address]17- 7136 Mar, Amenorrhea 626.0 [place] [id number] [place] [address] 16[address]- 0547 Jan, Amenorrhea 626.0 ; Routine gynecological examination V72.31 and Screen for STD (sexually transmitted disease) V74.5 [place] [id number] [address] Jan, Amenorrhea 626.0 [place] [id number] [address] 92[address] 08 Jan, 2015 Routine gynecological examination V72.31 ; Screen for STD ( sexually transmitted disease) V74.5 ; Pap test, as part of routine gynecological examination V76.2 ; Breast cancer screening V76.10 and Amenorrhea 626.0 [facility] [address] [address] 13 Dec, 2014 [facility] [address] [address] 4[address] Dec, [facility] [address] [address] 5255 Dec, [facility] [address] [place] [id number] [address] 1766 Oct, [facility] [address] [address] 8795 Oct, [facility] [address] [address] 2806 Oct, [facility] [address] [address] 3383 Oct, [facility] [address] [address]- 9981 Oct, [facility] [address] [address]- 5656 Oct, [facility] [address] [address] 2546 Oct, [facility] [id number] [address]- 5376 Oct, [facility] [id number] [address]- 3976 Oct, [facility] [id number] [address]- 8396 Oct, [facility] [place] [facility] [address] [id number] [place] [address] 8528 Oct, [facility] [place] [facility] [address] [id number] [place] [address]- 7819 Sep, [facility] [place] [facility] [address] [id number] [place] [address]- 3903 Sep, [facility] [place] [facility] [address] [id number] [place] [address]- 9830 Sep, [facility] [place] [facility] [address] [id number] [place] [address]- 0143 Sep, [facility] [place] [facility] [address] [id number] [place] [address]- 5336 Sep, [facility] [place] [facility] [address] [id number] [place] [address]- 1748 Sep, [facility] [place] [facility] [address] [id number] [place] [address]- 3854 Sep, [facility] [place] [facility] [address] [id number] [place] [address]- 5997 Sep, [facility] [place] [facility] [address] [id number] [place] [address]- 5069 Sep, [facility] [place] [facility] [address] [id number] [place] [address]- 0911 Sep, [facility] [place] [facility] [address] [id number] [place] [address]- 6688 Sep, [facility] [place] [facility] [address] [id number] [place] [address]- 1413 Sep, [facility] [place] [facility] [address] [id number] [place] [address]- 8952 Sep, [facility] [place] [facility] [address] [id number] [place] [address]- 0686 Sep, [facility] [place] [facility] [address] [id number] [place] [address]- 2556 Sep, [facility] [place] [facility] [address] [id number] [place] [address]- 0212 Sep, [facility] [place] [facility] [address] [id number] [place] [address]- 3016 Sep, [facility] [place] [facility] [address] [id number] [place] [address]- 6083 Sep, [facility] [place] [facility] [address] [id number] [place] [address]- 1061 Sep, [facility] [place] [facility] [address] [id number] [place] [address]- 8220 Sep, [facility] [place] [facility] [address] [id number] [place] [address]- 2513 Aug, [facility] [place] [facility] [address] [id number] [place] [address]- 9337 Aug, [facility] [place] [facility] [address] [id number] [place] [address]- 0439 Aug, [facility] [place] [facility] [address] [id number] [place] [address]- 4886 Aug, [facility] [place] [facility] [address] [id number] [place] [address]- 7659 Aug, [facility] [place] [facility] [address] [id number] [address]- 74[address] Aug, [facility] [place] [facility] [address] [id number] [address]- 0241 Aug, [facility] [place] [facility] [address] [id number] [place] [address]- 0334 Aug, [facility] [place] [facility] [address] [id number] [place] [address]- 3224 Aug, [facility] [place] [facility] [address] [id number] [place] [address]80 Aug, [facility] [place] [facility] [address] [id number] [place] [address]- 2489 Aug, [facility] [place] [facility] [address] [id number] [place] [address]- 8327 Aug, [facility] [place] [facility] [address] [id number] [place] [address]- 0580 Jul, [facility] [place] [facility] [address] [id number] [place] [address]- 5373 Jul, [facility] [place] [facility] [address] [id number] [place] [address]- 5171 Jul, [facility] [place] [facility] [address] [id number] [place] [address]- 4213 Jul, [facility] [place] [facility] [address] [id number] [place] [address]- 7541 Jul, [facility] [place] [facility] [address] [id number] [place] [address]- 1264 Jul, [facility] [place] [facility] [address] [id number] [place] [address]- 7157 Jul, [facility] [place] [facility] [address] [id number] [place] [address]- 6021 Jul, [facility] [place] [facility] [address] [facility] [id number] [place] [address]- 8361 Jul, [facility] [place] [facility] [address] [id number] [place] [address]- 8807 Jul, [facility] [place] [facility] [address] [id number] [place] [address]- 1255 Jun, [facility] [place] [facility] [address] [id number] [place] 8099 Jun, [facility] [place] [facility] [address] [facility] [id number] [place] [address]- 6663 Jun, [facility] [place] [facility] [address] [id number] [place] [address]- 4743 Jun, [facility] [place] [facility] [address] [id number] [place] [address]- 4812 30 Jun, 2014 [facility] [place] [facility] [address] [id number] [place] [address]- 3608 30 Jun, 2014 [facility] [place] [facility] [address] [id number] [place] [address]- 8656 15 Jun, 2014 [facility] [place] [facility] [address] [id number] [place] [address]- 2658 15 Jun, 2014 [facility] [place] [facility] [address] [id number] [place] [address]- 7008 May, [facility] [place] [facility] [address] [id number] [place] [address]- 2821 22 May, 2014 [facility] [place] [facility] [address] [id number] [place] [address]- 2343 18 May, 2014 [facility] [place] [facility] [address] [id number] [place] [address]- 8127 18 May, 2014 [facility] [place] [facility] [address] [id number] [place] [address]- 8397 09 May, 2014 [facility] [place] [facility] [address] [id number] [place] [address]- 0871 08 May, 2014 [facility] [place] [facility] [address] [id number] [place] [address]- 9626 May, [facility] [place] [facility] [address] [id number] [address]- 4162 May, [facility] [place] [facility] [address] [id number] [place] [address]- 7362 Apr, [facility] [place] [facility] [address] [id number] [place] [address]- 7282 Apr, [facility] [place] [facility] [address] [id number] [place] [address]- 7131 Apr, [facility] [place] [facility] [address] [id number] [place] [address]- 7414 Apr, [facility] [place] [facility] [address] [id number] [place] [address]- 8755 Mar, [facility] [place] [facility] [address] [id number] [place] [address]- 8529 Mar, [facility] [place] [facility] [address] [id number] [place] [address]- 1772 Mar, [facility] [place] [facility] [address] [id number] [place] [address]- 2816 Mar, [facility] [place] [facility] [address] [id number] [place] [address]- 4494 Mar, [facility] [place] [facility] [address] [id number] [place] [address]- 3751 Mar, [facility] [place] [facility] [address] [id number] [place] [address]- 5735 Jan, [facility] [place] [facility] [address] [id number] [place] [address]- 2750 Jan, [facility] [place] [facility] [address] [id number] [place] [address]- 3625 Jan, [facility] [place] [facility] [address] [id number] [place] [address]- 5264 Jan, [facility] [place] [facility] [address] [id number] [place] [address]- 5901 Jan, [facility] [place] [facility] [address] [id number] [place] [address]- 4194 Jan, [facility] [place] [facility] [address] [id number] [place] [address]- 1934 Jan, [facility] [place] [facility] [address] [id number] [place] [address]- 7011 Jan, [facility] [place] [facility] [address] [id number] [place] [address]- 5108 Jan, [facility] [place] [facility] [address] [id number] [place] [address]- 8833 Jan, [facility] [place] [facility] [address] [id number] [place] [address]- 6947 Jan, [facility] [place] [facility] [address] [id number] [place] [address]- 2364 Jan, [facility] [place] [facility] [address] [id number] [place] [address]- 6626 December, [facility] [place] [facility] [address] [id number] [place] [address]- 6156 December, [facility] [place] [facility] [address] [id number] [place] [address]- 6040 December, [facility] [place] [facility] [address] [id number] [place] [address]- 0650 December, [facility] [place] [facility] [address] [id number] [place] [address]- 8714 Dec, [facility] [place] [facility] [address] [id number] [place] [address]- 4396 Dec, [facility] [place] [facility] [address] [id number] [place] [address]- 3649 Dec, [facility] [place] [facility] [address] [id number] [place] [address]- 4602 Dec, [facility] [place] [facility] [address] [id number] [place] [address]- 8178 Dec, [facility] [place] [facility] [address] [id number] [place] [address]- 3120 Dec, [facility] [place] [facility] [address] [id number] [place] [address]- 4547 Dec, [facility] [place] [facility] [address] [id number] [place] [address]- 8623 Dec, [facility] [place] [facility] [address] [id number] [place] [address]- 5005 Dec, [facility] [place] [facility] [address] [id number] [place] [address]- 7506 Dec, [facility] [place] [facility] [address] [id number] [place] [address]- 2143 Dec, [facility] [place] [facility] [address] [id number] [place] 8190 Dec, [facility] [place] [facility] [address] [id number] [place] [address]- 9844 Dec, [facility] [place] [facility] [address] [id number] [place] [address]- 3159 Dec, [facility] [place] [facility] [address] [id number] [place] [address]- 1842 Oct, [facility] [place] [facility] [address] [id number] [place] [address]- 2538 Oct, [facility] [place] [facility] [address] [id number] [place] [address]- 0053 Oct, [facility] [place] [facility] [address] [id number] [place] [address]- 7882 Oct, [facility] [place] [facility] [address] [id number] [place] [address]- 3588 Oct, [facility] [place] [facility] [address] [id number] [place] [address]- 7210 Oct, [facility] [place] [facility] [address] [facility] [id number] [id number] Oct, [facility] [place] [facility] [address] [id number] [place] [address]- 0255 Oct, [facility] [place] [facility] [address] [id number] [place] [address]- 2971 Oct, [facility] [place] [facility] [address] [id number] [place] 9085 Oct, [facility] [place] [facility] [address] [id number] [place] [address]- 9070 Sep, [facility] [address] 3509 Sep, [facility] [address] [address]- 5150 Sep, [facility] [address] [address]- 2742 Sep, [facility] [address]- 7935 Sep, [facility] [address] [address]161 Sep, [facility] [address] [address]- 9846 Aug, [facility] [address] [address]- 8732 Aug, [facility] [address] [address]- 7691 Jul, [facility] [address] [address]- 8566 Jul, [facility] [address] [address]- 2846 Jul, [facility] [address] [address]- 2284 Jul, [facility] [address] [address]- 2973 Jul, IMMUNIZATIONS No Known Immunizations SOCIAL HISTORY Never Assessed REASON FOR VISIT insulin pump problems PLAN OF CARE VITAL SIGNS MEDICATIONS Unknown [...]
--- OUTSIDE RECORDS SUMMARY | 2018-08-30 20:54 | XMS REPORT ---
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 Active 49600744 Problem Chronic kidney disease, stage 3 N18.3 Active 847956007 Problem CHI I (cervical intraepithelial neoplasia I) N87.0 Active 093437629 Problem Mild episode of recurrent major depressive disorder F33.0 Active 190975063 Problem Addiction to drug F19.20 Active 142887047 Problem Essential hypertension I10 Active 94619298 Problem Opioid use disorder, severe, in sustained remission F11.21 Active 10667215 Problem Irritable bowel syndrome with constipation K58.1 Active 304822383 ALLERGIES No Information ENCOUNTERS Encounter Location Date Diagnosis [facility] [address] [place] [address] Mar, [facility] [id number] [place] [address] 09257- 1636 Jan, Opioid use disorder, severe, in early remission F11.21 [facility] [id number] [place] [address] 88082- 9708 December, Opioid use disorder, severe, in early remission F11.21 [facility] [address] [place] [address] December, Opioid use disorder, severe, in sustained remission F11.21 [facility] [id number] [place] [address] 76903- 1488 December, Opioid use disorder, severe, in sustained remission F11.21 and 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 [facility] [id number] [place] [address] 08068- 4196 December, Opioid use disorder, severe, in early remission F11.21 [facility] [address] [place] [address] Dec, Opioid use disorder, severe, in sustained remission F11.21 [facility] [id number] [place] [address] 30733- 9744 Dec, 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 ; Unprotected sexual intercourse Z72.51 ; Pain of left thumb M79.645 ; Mixed hyperlipidemia E78.2 ; Gastroparesis K31.84 ; Essential hypertension I10 and Irritable bowel syndrome with constipation K58.1 [facility] [id number] [place] [address] 09895- 0550 Dec, Opioid use disorder, severe, in early remission F11.21 [facility] [id number] [place] [address] 81859- 0697 Oct, [facility] [id number] [place] [address] 46331- 9470 Oct, Opioid use disorder, severe, 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 [facility] [id number] [place] [address] 00977- 3877 Oct, [facility] [id number] [place] [address] 67954- 8614 Oct, Opioid use disorder, severe, 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 [facility] [id number] [place] [address] 22145- 5144 Oct, [facility] [id number] [place] [address] 99937- 7386 Oct, [facility] [address] [place] [address] Oct, Opioid use disorder, severe, in sustained remission F11.21 [facility] [address] [address] Sep, [facility] [id number] [place] [address] 87277- 9527 Sep, [facility] [id number] [place] [address] 77723- 8259 Sep, Opioid use disorder, severe, 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 [facility] [id number] [place] [address] 14820- 0107 Aug, Opioid use disorder, severe, 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 [facility] [id number] [place] [address] 84114- 8241 Jul, [facility] [id number] [place] [address] 66570- 2608 Jul, Chronic kidney disease, stage 3 N18.3 ; Dysthymia F34.1 and Opioid use disorder, severe, in sustained remission F11.21 [facility] [address] [place] [address] Jul, Opioid use disorder, severe, in sustained remission F11.21 [facility] [id number] [place] [address] 56950- 6656 Jul, Long-term use of high-risk medication Z79.899 and Chronic kidney disease, stage 3 N18.3 [facility] [id number] [place] [address] 51476- 4721 Jul, Opioid use disorder, severe, 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 [facility] [id number] [place] [address] 15937- 9599 Jul, [facility] [id number] [place] [address] 96912- 1582 Jun, [facility] [id number] [place] [address] 18638- 7619 Jun, [facility] [id number] [place] [address] 37325- 3960 Jun, Opioid use disorder, moderate, dependence F11.20 and Opioid use disorder, severe, 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 [facility] [id number] [place] [address] 89499- 2726 Jun, [facility] [id number] [place] [address] 02451- 9350 Jun, Long-term use of high-risk medication Z79.899 [facility] [id number] [place] [address] 95977- 1508 Jun, CHI I (cervical intraepithelial neoplasia I) N87.0 [facility] [id number] [place] [address] 78097- 7739 May, Opioid use disorder, severe, 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 [facility] [id number] [place] [address] 98911- 1199 18 May, 2017 Chronic kidney disease, stage 3 N18.3 [facility] [id number] [place] [address] 68471- 2358 14 May, 2017 Chronic kidney disease, stage 3 N18.3 [facility] [address] [place] [address] 05 May, 2017 Opioid use disorder, severe, in sustained remission F11.21 [facility] [id number] [place] [address] 56399- 2498 Apr, LGSIL on Pap smear of cervix R87.612 [facility] [address] [place] [address] Apr, [facility] [id number] [place] [address] 80207- 7515 Apr, Opioid use disorder, severe, 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 [facility] [id number] [place] [address] 96912- 2278 Apr, Opioid use disorder, severe, 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 [facility] [id number] [place] [address] 48939- 8246 Apr, Opioid use disorder, severe, 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 [facility] [id number] [place] [address] 49557- 1669 18 Apr, 2017 Opioid use disorder, severe, 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 [facility] [id number] [place] [address] 35458- 0157 14 Apr, 2017 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 [facility] [id number] [place] [address] 26844- 2047 10 Apr, 2017 Opioid use disorder, severe, 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 [facility] [address] [place] [address] Apr, Opioid use disorder, severe, in sustained remission F11.21 [facility] [id number] [place] [address] 64328- 5437 Apr, Opioid use disorder, severe, in early remission F11.21 [facility] [id number] [place] [address] 44750- 3382 Apr, Mild episode of recurrent major depressive disorder F33.0 and Right acute serous otitis media, recurrence not specified H65.01 [facility] [id number] [place] [address] 56503- 6742 Mar, [facility] [id number] [place] [address] 39448- 1543 Mar, Opioid use disorder, severe, 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 [facility] [id number] [place] [address] 12096- 7691 Mar, [facility] [address] [place] [address] Mar, Opioid use disorder, severe, in sustained remission F11.21 [facility] [address] [place] [address] Mar, Opioid use disorder, severe, in sustained remission F11.21 [facility] [address] [place] [address] [address] 0[address] Mar, Opioid use disorder, severe, 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 [address] [place] [address] 47268- 3242 Jan, Opioid use disorder, severe, in early remission F11.21 [facility] [address] [place] [address] Jan, Opioid use disorder, severe, in sustained remission F11.21 [facility] [address] [place] [address] Jan, Opioid use disorder, severe, in sustained remission F11.21 [place] [id number] [place] [address] 22359- 8459 Jan, Opioid use disorder, severe, in early remission F11.21 [facility] [address] [place] [address] Jan, Opioid use disorder, severe, in sustained remission F11.21 [place] [id number] [place] [address] 10922- 5948 December, Opioid use disorder, severe, 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 [facility] [address] [place] [address] December, Opioid use disorder, severe, in sustained remission F11.21 [address] [place] [address] 74690- 2598 December, Routine gynecological examination Z01.419 and Chronic kidney disease, stage 3 N18.3 [address] [place] [address] 95704- 6590 December, Chronic kidney disease, stage 3 N18.3 ; 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 ; Gastroparesis K31.84 ; Essential hypertension I10 and Irritable bowel syndrome with constipation K58.1 [facility] [address] [place] [address] December, Opioid use disorder, severe, in sustained remission F11.21 [place] [id number] [place] [address] 53781- 0162 December, Opioid use disorder, severe, 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 [facility] [address] [place] [address] December, Opioid use disorder, severe, in sustained remission F11.21 [facility] [id number] [place] [address] 73068- 9997 December, Encounter for therapeutic drug level monitoring Z51.81 [facility] [address] [place] [address] December, Opioid use disorder, severe, in sustained remission F11.21 [facility] [address] [place] [address] Dec, Opioid use disorder, severe, in sustained remission F11.21 [facility] [id number] [place] [address] 09491- 5540 Dec, Opioid use disorder, severe, 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 [facility] [id number] [place] [address] 82939- 9381 Dec, [facility] [address] [place] [address] Dec, Opioid use disorder, severe, in sustained remission F11.21 [facility] [id number] [place] [address] 30290- 2380 Dec, Opioid use disorder, severe, in early remission F11.21 [facility] [address] [place] [address] Dec, Opioid use disorder, severe, in sustained remission F11.21 [facility] [address] [place] [id number] [place] [address] 07597- 2260 Dec, 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 [facility] [address] [place] [id number] [place] [address] 78992- 3621 Dec, Opioid use disorder, severe, in sustained remission F11.21 ; Encounter for therapeutic drug level monitoring Z51.81 and Other group 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.899 [facility] [address] [place] [address] Oct, Opioid use disorder, severe, in sustained remission F11.21 [facility] [id number] [place] [address] 86080- 3697 Oct, Opioid use disorder, severe, 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 [facility] [id number] [place] [address] 43962- 3545 Oct, [facility] [address] [place] [address] Oct, Opioid use disorder, severe, in sustained remission F11.21 [facility] [id number] [place] [address] 32805- 8158 Oct, 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 [facility] [id number] [place] [address] 54186- 6976 14 Oct, 2016 Routine gynecological examination Z01.419 [facility] [id number] [place] [address] 02810- 4312 07 Oct, 2016 Opioid use disorder, severe, in early remission F11.21 [facility] [id number] [place] [address] 24790- 7399 06 Oct, 2016 Opioid use disorder, severe, 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 [facility] [id number] [place] [address] 53600- 4867 Oct, Opioid use disorder, severe, in early remission F11.21 [facility] [address] [place] [address] Oct, Opioid use disorder, severe, in sustained remission F11.21 [facility] [id number] [place] [address] 48719- 7144 Oct, Opioid use disorder, severe, in early remission F11.21 [facility] [id number] [place] [address] 44303- 2988 Oct, Opioid use disorder, severe, in early remission F11.21 [facility] [address] [place] [address] 22 Oct, 2016 Opioid use disorder, severe, in sustained remission F11.21 [facility] [id number] [place] [address] 69452- 8228 20 Oct, 2016 Opioid use disorder, severe, in sustained remission F11.21 ; Encounter for therapeutic drug level monitoring Z51.81 and Other group 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.899 [facility] [id number] [place] [address] 27912- 3581 16 Oct, 2016 [facility] [address] [place] [address] 14 Oct, 2016 Opioid use disorder, severe, in early remission F11.21 [facility] [address] [place] [address] 10 Oct, 2016 Opioid use disorder, severe, in early remission F11.21 [facility] [id number] [place] [address] 65110- 4654 09 Oct, 2016 Opioid use disorder, severe, in early remission F11.21 [facility] [id number] [place] [address] 70605- 3183 08 Oct, 2016 [facility] [id number] [place] [address] 61981- 8546 07 Oct, 2016 [facility] [id number] [place] [address] 82601- 5555 Oct, [facility] [address] [place] [address] Oct, Opioid use disorder, severe, in early remission F11.21 [facility] [id number] [place] [address] 01383- 9296 Sep, Opioid use disorder, severe, in early remission F11.21 [facility] [address] [place] [address] Sep, Opioid use disorder, severe, 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 [facility] [id number] [place] [address] 88013- 5496 23 Kash, 2017 Opioid use disorder, severe, 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 ; Other group home (current) drug therapy Z79.899 and Encounter for therapeutic drug level monitoring Z51.81 [facility] [address] [place] [id number] [place] [address] 50786- 1601 Sep, [facility] [id number] [place] [address] 86374- 5543 Sep, [place] [id number] [place] [address] 86876- 5209 Sep, Opioid use disorder, severe, 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 ; 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 ; Chronic kidney disease, stage 3 N18.3 ; Essential hypertension I10 and Irritable bowel syndrome with constipation K58.1 [facility] [address] [place] [address] Sep, Opioid use disorder, severe, in early remission F11.21 [facility] [address] [place] [address] Sep, Opioid use disorder, severe, 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 [place] [id number] [place] [address] 68309- 2766 Sep, Opioid use disorder, moderate, dependence F11.20 [facility] [address] [place] [id number] [place] [address] 37423- 3148 Sep, Opioid use disorder, moderate, dependence F11.20 [facility] [address] [place] [address] Sep, Opioid use disorder, severe, 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 [facility] [address] [place] [id number] [place] [address] 11901- 7464 Sep, Opioid use disorder, severe, in early remission F11.21 [facility] [address] [place] [address] Aug, Opioid use disorder, severe, 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 [facility] [address] [place] [id number] [place] [address] 94948- 4370 Aug, Opioid use disorder, moderate, dependence F11.20 [facility] [id number] [place] [address] 72531 -2676 Aug, Bug bite without infection, initial encounter W57.XXXA [facility] [address] 02398- 7991 Aug, Opioid use disorder, moderate, dependence F11.20 [facility] [address] [place] [address] Aug, [facility] [address] 81583- 5794 Aug, Opioid use disorder, severe, 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 ; 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 ; Encounter for therapeutic drug level monitoring Z51.81 and 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 [facility] [address] [place] [address] Aug, [facility] [address] 26480- 4767 Aug, Opioid use disorder, moderate, dependence F11.20 ; Other group home (current) drug therapy Z79.899 and Encounter for therapeutic drug level monitoring Z51.81 [facility] [address] 80309- 6960 Aug, [facility] [address] 96400- 4002 Aug, Non-intractable vomiting with nausea, unspecified vomiting type R11.2 [facility] [id number] [place] [address] 47181- 6382 Aug, Opioid use disorder, moderate, dependence F11.20 and Non- intractable vomiting with nausea, unspecified vomiting type R11.2 [facility] [address] 25541- 2636 Aug, [facility] [address] 80001- 1697 Aug, Opioid use disorder, moderate, dependence F11.20 [facility] [id number] [place] [address] 53713- 4705 Aug, [facility] [address] 76936- 0753 Jul, 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 and Opioid use disorder, moderate, dependence F11.20 [facility] [address] [place] [address] Jul, [facility] [address] 04913- 9322 Jul, [facility] [address] 94927- 1690 Jul, [facility] [address] 39058- 9283 Jul, Addiction to drug F19.20 and Chronic kidney disease, stage 3 N18.3 [facility] [address] [place] [address] Jul, Counseling on substance use and abuse Z71.89 [facility] [id number] [place] [address] 18040- 7159 Jul, Chronic kidney disease, stage 3 N18.3 [facility] [id number] [place] [address] 22938- 7617 Jul, 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 ; Diarrhea, unspecified type R19.7 and Essential hypertension I10 [facility] [id number] [place] [address] 34477- 0878 Jul, [facility] [id number] [place] [address] 64592- 2738 Jun, [facility] [address] 05368- 8337 Jun, [facility] [id number] [place] [address] 40816- 7876 Apr, 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 [facility] [address] [address] 3505 Apr, Sore throat and laryngitis J06.0 and Non-intractable vomiting with nausea, unspecified vomiting type R11.2 [facility] [address] [address]- 4406 Apr, [facility] [id number] [place] [address] 55764- 0990 Mar, [facility] [id number] [place] [address] 07835- 4070 Jan, [facility] [id number] [place] [address] 81746- 5870 Jan, [facility] [id number] [place] [address] 61023- 9807 Jan, [facility] [id number] [place] [address] 96189- 2410 December, 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 ; Gastroparesis K31.84 ; Mixed hyperlipidemia E78.2 ; Chronic kidney disease, stage 3 N18.3 ; Dysthymia F34.1 and Acute bilateral low back pain without sciatica M54.5 [facility] [address] [address] December, [place] [id number] [place] [address] 05573- 2313 December, [place] [id number] [place] [address] 17788- 1310 Aug, Depression F32.9 and Gastroparesis K31.84 [place] [id number] [place] [address] 07684- 0423 Aug, Gastroparesis K31.84 [facility] [address] [address]- 7897 Jul, Recurrent UTI N39.0 ; Chronic kidney disease, stage 3 N18.3 and 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 [facility] [id number] [place] [address] 80949- 2168 Jul, [facility] [id number] [place] [address] [id number] Jul, Dental examination Z01.20 and Dental caries K02.9 [facility] [address] 85512- 5652 Jul, [facility] [address] [phone] Jul, Dysuria R30.0 ; Urinary tract infection N39.0 and Nausea R11.0 [facility] [address] [address] Jun, Dysuria R30.0 [facility] [address] [address] Jun, Dysuria R30.0 [facility] [address] [address] Jun, Dysuria R30.0 [facility] [address] [address] Jun, [facility] [address] [address] Jun, Acute cystitis with hematuria N30.01 [facility] [address] [address] May, [facility] [address] [address] Apr, Diabetes mellitus without mention of complication, type I [ juvenile type], not stated as uncontrolled 250.01 ; Gastroparesis due to DM 250.60 ; Contraception management V25.9 and Renal insufficiency 593.9 [facility] [address] [address] Apr, [place] [id number] [address] Apr, [place] [address] [place] [id number] [place] [address]- 1213 Mar, [place] [id number] [place] [address]- 2677 Mar, Hyperlipidemia 272.4 and Hypertensive heart and chronic kidney disease, benign, without heart failure and with chronic kidney disease stage I through stage IV, or unspecified 404.10 [place] [id number] [address] Mar, Hyperlipidemia 272.4 ; Hyponatremia 276.1 ; 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 ; Hypertensive heart and chronic kidney disease, benign, without heart failure and with chronic kidney disease stage I through stage IV, or unspecified 404.10 ; Proteinuria 791.0 and Chronic kidney disease (CKD), stage III (moderate) 585.3 [place] [id number] [place] [address]- 5162 Mar, [place] [id number] [place] [address]- 7040 Mar, Elevated blood sugar level 790.29 [place] [id number] [place] [address]- 2937 Mar, Low grade squamous intraepithelial lesion (LGSIL) on cervical Pap smear 795.03 [place] [id number] [place] [address]- 5525 Mar, Amenorrhea 626.0 [place] [id number] [place] [address]- 3363 Jan, Amenorrhea 626.0 ; Routine gynecological examination V72.31 and Screen for STD (sexually transmitted disease) V74.5 [place] [id number] [address] Jan, Amenorrhea 626.0 [place] [id number] [address] 08 Jan, 2015 Routine gynecological examination V72.31 ; Screen for STD ( sexually transmitted disease) V74.5 ; Pap test, as part of routine gynecological examination V76.2 ; Breast cancer screening V76.10 and Amenorrhea 626.0 [facility] [id number] [address] 13 Dec, 2014 [facility] [address] [address] 25[address] Dec, [facility] [address] [address] Dec, [facility] [id number] [address] Oct, [facility] [id number] [address] Oct, [facility] [id number] [address] Oct, [facility] [address] [address] 5685 Oct, [facility] [address] [address]- 8787 Oct, [facility] [address] [address] 9[address] Oct, [facility] [address] [address] 2546 Oct, [facility] [id number] [address]- 7936 Oct, [facility] [address] [address] 0256 Oct, [facility] [address] [address]- 2886 Oct, [facility] [place] [facility] [address] [id number] [place] [address]- 2570 Oct, [facility] [place] [facility] [address] [id number] [place] [address]- 4874 Sep, [facility] [place] [facility] [address] [id number] [place] [address]- 0353 Sep, [facility] [place] [facility] [address] [id number] [place] [address]- 0309 Sep, [facility] [place] [facility] [address] [id number] [place] [address]- 7016 Sep, [facility] [place] [facility] [address] [id number] [place] [address]- 0079 Sep, [facility] [place] [facility] [address] [id number] [place] [address]- 8716 Sep, [facility] [place] [facility] [address] [id number] [place] [address]- 3819 Sep, [facility] [place] [facility] [address] [id number] [place] [address]- 1422 Sep, [facility] [place] [facility] [address] [id number] [place] [address]- 3575 Sep, [facility] [place] [facility] [address] [id number] [place] [address]- 5106 Sep, [facility] [place] [facility] [address] [id number] [place] [address]- 0833 Sep, [facility] [place] [facility] [address] [id number] [place] [address]- 1050 Sep, [facility] [place] [facility] [address] [id number] [place] [address]- 7912 Sep, [facility] [place] [facility] [address] [id number] [place] [address]- 4512 Sep, [facility] [place] [facility] [address] [id number] [place] [address]- 5006 Sep, [facility] [place] [facility] [address] [id number] [place] [address]- 7572 Sep, [facility] [place] [facility] [address] [id number] [place] [address]- 1115 Sep, [facility] [place] [facility] [address] [id number] [place] [address]- 9852 Sep, [facility] [place] [facility] [address] [id number] [place] [address]- 0145 Sep, [facility] [place] [facility] [address] [id number] [place] [address]- 7079 Sep, [facility] [place] [facility] [address] [id number] [place] [address]- 0486 Aug, [facility] [place] [facility] [address] [id number] [place] [address]- 3708 Aug, [facility] [place] [facility] [address] [id number] [place] [address]- 8242 Aug, [facility] [place] [facility] [address] [id number] [place] [address]- 6167 Aug, [facility] [place] [facility] [address] [id number] [place] [address]- 1660 Aug, [facility] [place] [facility] [address] [id number] [address]- 8857 Aug, [facility] [place] [facility] [address] [id number] [address]- 4269 Aug, [facility] [place] [facility] [address] [id number] [place] [address]- 8092 Aug, [facility] [place] [facility] [address] [id number] [place] [address]- 9799 Aug, [facility] [place] [facility] [address] [id number] [place] [address] Aug, [facility] [place] [facility] [address] [id number] [place] [address]- 3960 Aug, [facility] [place] [facility] [address] [id number] [place] [address]- 1026 Aug, [facility] [place] [facility] [address] [id number] [place] [address]- 2854 Jul, [facility] [place] [facility] [address] [id number] [place] [address]- 3768 Jul, [facility] [place] [facility] [address] [id number] [place] [address]- 6337 Jul, [facility] [place] [facility] [address] [id number] [place] [address]- 2240 Jul, [facility] [place] [facility] [address] [id number] [place] [address]- 9332 Jul, [facility] [place] [facility] [address] [id number] [place] [address]- 7285 Jul, [facility] [place] [facility] [address] [id number] [place] [address]- 4590 Jul, [facility] [place] [facility] [address] [id number] [place] [address]- 4612 Jul, [facility] [place] [facility] [address] [facility] [id number] [place] [address]- 5299 Jul, [facility] [place] [facility] [address] [id number] [place] [address]- 1273 Jul, [facility] [place] [facility] [address] [id number] [place] [address]- 8087 Jun, [facility] [place] [facility] [address] [id number] [place] [address] Jun, [facility] [place] [facility] [address] [facility] [facility] [id number] [place] [address]- 5385 Jun, [facility] [place] [facility] [address] [id number] [place] [address]- 2812 Jun, [facility] [place] [facility] [address] [id number] [place] [address]- 1829 30 Jun, 2014 [facility] [place] [facility] [address] [id number] [place] [address]- 2051 30 Jun, 2014 [facility] [place] [facility] [address] [id number] [place] [address]- 9497 15 Jun, 2014 [facility] [place] [facility] [address] [id number] [place] [address]- 8776 15 Jun, 2014 [facility] [place] [facility] [address] [id number] [place] [address]- 3070 May, [facility] [place] [facility] [address] [id number] [place] [address]- 2331 22 May, 2014 [facility] [place] [facility] [address] [id number] [place] [address]- 1674 18 May, 2014 [facility] [place] [facility] [address] [id number] [place] [address]- 6785 18 May, 2014 [facility] [place] [facility] [address] [id number] [place] [address]- 7993 09 May, 2014 [facility] [place] [facility] [address] [id number] [place] [address]- 8010 08 May, 2014 [facility] [place] [facility] [address] [id number] [place] [address]- 9274 May, [facility] [place] [facility] [address] [id number] [address]- 5577 May, [facility] [place] [facility] [address] [id number] [place] [address]- 8063 Apr, [facility] [place] [facility] [address] [id number] [place] [address]- 4192 Apr, [facility] [place] [facility] [address] [id number] [place] [address]- 2239 Apr, [facility] [place] [facility] [address] [id number] [place] [address]- 7501 Apr, [facility] [place] [facility] [address] [id number] [place] [address]- 4492 Mar, [facility] [place] [facility] [address] [id number] [place] [address]- 8042 Mar, [facility] [place] [facility] [address] [id number] [place] [address]- 4705 Mar, [facility] [place] [facility] [address] [id number] [place] [address]- 6665 Mar, [facility] [place] [facility] [address] [id number] [place] [address]- 7364 Mar, [facility] [place] [facility] [address] [id number] [place] [address]- 0968 Mar, [facility] [place] [facility] [address] [id number] [place] [address]- 9226 Jan, [facility] [place] [facility] [address] [id number] [place] [address]- 7583 Jan, [facility] [place] [facility] [address] [id number] [place] [address]- 9852 Jan, [facility] [place] [facility] [address] [id number] [place] [address]- 8471 Jan, [facility] [place] [facility] [address] [id number] [place] [address]- 3350 Jan, [facility] [place] [facility] [address] [id number] [place] [address]- 0899 Jan, [facility] [place] [facility] [address] [id number] [place] [address]- 5732 Jan, [facility] [place] [facility] [address] [id number] [place] [address]- 4625 Jan, [facility] [place] [facility] [address] [id number] [place] [address]- 5425 Jan, [facility] [place] [facility] [address] [id number] [place] [address]- 0525 Jan, [facility] [place] [facility] [address] [id number] [place] [address]- 5343 Jan, [facility] [place] [facility] [address] [id number] [place] [address]- 1911 Jan, [facility] [place] [facility] [address] [id number] [place] [address]- 3648 December, [facility] [place] [facility] [address] [id number] [place] [address]- 3857 December, [facility] [place] [facility] [address] [id number] [place] [address]- 1532 December, [facility] [place] [facility] [address] [id number] [place] [address]- 4255 December, [facility] [place] [facility] [address] [id number] [place] [address]- 8493 Dec, [facility] [place] [facility] [address] [id number] [place] [address]- 2528 Dec, [facility] [place] [facility] [address] [id number] [place] [address]- 9092 Dec, [facility] [place] [facility] [address] [id number] [place] [address]- 3024 Dec, [facility] [place] [facility] [address] [id number] [place] [address]- 5131 Dec, [facility] [place] [facility] [address] [id number] [place] [address]- 0358 Dec, [facility] [place] [facility] [address] [id number] [place] [address]- 0500 Dec, [facility] [place] [facility] [address] [id number] [place] [address]- 8473 Dec, [facility] [place] [facility] [address] [id number] [place] [address]- 1580 Dec, [facility] [place] [facility] [address] [id number] [place] [address]- 7161 Dec, [facility] [place] [facility] [address] [id number] [place] [address]- 5444 Dec, [facility] [place] [facility] [address] [id number] [place] [address]306 Dec, [facility] [place] [facility] [address] [id number] [place] [address]- 4192 Dec, [facility] [place] [facility] [address] [id number] [place] [address]- 8085 Dec, [facility] [place] [facility] [address] [id number] [place] [address]- 6991 Oct, [facility] [place] [facility] [address] [id number] [place] [address]- 7822 Oct, [facility] [place] [facility] [address] [id number] [place] [address]- 4668 Oct, [facility] [place] [facility] [address] [id number] [place] [address]- 9213 Oct, [facility] [place] [facility] [address] [id number] [place] [address]- 4060 Oct, [facility] [place] [facility] [address] [id number] [place] [address]- 5611 Oct, [facility] [place] [facility] [address] [facility] [id number] [address] Oct, [facility] [place] [facility] [address] [id number] [place] [address]- 1477 Oct, [facility] [place] [facility] [address] [id number] [place] [address]- 8065 Oct, [facility] [place] [facility] [address] [id number] [place] 6839 Oct, [facility] [place] [facility] [address] [id number] [place] [address]146 Sep, [facility] [address] [address]- 5737 Sep, [facility] [id number] [address]- 5715 Sep, [facility] [id number] [address]- 0010 Sep, [facility] [address] [address]- 5447 Sep, [facility] [id number] 279[address] Sep, [facility] [id number] [address]- 7660 Aug, [facility] [address] [address]- 9790 Aug, [facility] [address] [address]- 4531 Jul, [facility] [address] [address]- 2785 Jul, [facility] [address] [address]- 3748 Jul, [facility] [address] [address]- 6683 Jul, [facility] [address] [place] [id number] [address]- 5910 Jul, IMMUNIZATIONS No Known Immunizations SOCIAL HISTORY Never Assessed REASON FOR VISIT Requests return call PLAN OF CARE VITAL SIGNS MEDICATIONS Unknown [...]
--- OUTSIDE RECORDS SUMMARY | 2018-08-30 20:55 | XMS REPORT ---
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 Name Role Phone SOPHIA CLEMONS CP Unavailable Allergies, Adverse Reactions, Alerts Substance [...] Active Problem Urinary frequency 788.41 Active Assessment Urinary tract infection N39.0 Active Assessment Dysuria R30.0 Active Problem Elevated blood pressure reading without diagnosis of hypertension 796.2 Active Assessment Nausea R11.0 Active Problem Health examination of defined subpopulation V70.5 Active Medications Medication Code System Code Instructions Start Date End Date Status Dosage Pyridium [facility] [address]-75 100 MG Orally Three times a day Jul 15, 2015 Jul 17, 2015 1 tablet after meals Lovastatin [facility] [address]-53 20 MG Orally Once a day March 30, 2015 1 tablet with a meal Zofran ODT [facility] [address]-59 4 MG Orally 3 times a day, prn Sep 17, 2014 take 1 tablets by Oral route every 8 hours PRN Nausea or Vomiting Vitamin D (Ergocalciferol) [facility] [address]-50 02156 UNIT Orally TWICE WEEKLY X8 WKS-AFTER 8 WEEKS TAKEN OTC VITAMIN D 2000 IU March 30, 2015 1 capsule Enalapril Maleate [facility] [address]-96 5 MG Orally Twice a day 1 tablet Humalog [facility] [address]-03 100 UNIT/ML Subcutaneous pump as per pump inject Units by Subcutaneous route every hour per insulin pump Tylenol 8 Hour [facility] [address]-06 not defined Fish Oil [facility] [address]-66 1000 MG Orally Once a day 2 capsule Reglan [facility] [address]-20 5 MG Orally 4 times a day prn Apr 28, 2015 1 tablet Levofloxacin [facility] [address]-06 750 MG Orally Once a day Jul 15, 2015 Jul 20, 2015 1 tablet Procedures Procedure Coding System Code Date URINE CULTURE/COLONY COUNT CPT-4 51934 Jul 15, 2015 Office Visit, Est Pt., Level 3 CPT-4 70526 Jul 15, 2015 URINALYSIS, AUTO, W/O SCOPE CPT-4 43139 Jul 15, 2015 Vital Signs Date/Time: Jul 15, 2015 Temperature 97.4 F Weight 180.4 lbs Height 66 in BMI 29.11 Index Blood Pressure Diastolic 92 mmHg Blood Pressure Systolic 138 mmHg Cardiac Monitoring Heart Rate 98 bpm Results Name Result Date Reference Range Unit Abnormality Flag UA LONG DIP (IN HOUSE) Summary Purpose [employer] Submission
--- OUTSIDE RECORDS SUMMARY | 2018-08-30 20:55 | XMS REPORT ---
Author Author NOEMY MORGAN Organization [facility] Address [address] 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 [address] [place] [address] Jan, [facility] [address], [place] [address] December, Opioid use disorder, severe, in early remission F11.[address] 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 ; Unprotected sexual intercourse Z72.51 ; Pain of left thumb M79.645 ; Mixed hyperlipidemia E78.2 ; Gastroparesis K31.84 ; Essential hypertension I10 and Irritable bowel syndrome with constipation K58.1 [facility] [address] [address] Dec, Opioid use disorder, severe, in early remission F11.21 [facility] [id number] [place] [address] 40913- 6811 Oct, [facility] [id number] [place] [address] 24005- 0526 Oct, Opioid use disorder, severe, in early remission F11.21 [facility] [id number] [place] [address] 79970- 4638 Oct, [facility] [id number] [place] [address] 78812- 5535 Oct, Opioid use disorder, severe, in early remission F11.21 [facility] [id number] [place] [address] 41893- 0243 Oct, [facility] [address] 53853[address]67 Oct, 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 [facility] [id number] [place] [address] 00160 2546 Aug, Opioid use disorder, severe, 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 [facility] [id number] [place] [address] 80976- 5367 Jul, [place] [id number] [place] [address] 35907- 9668 Jul, Chronic kidney disease, stage 3 N18.3 ; Dysthymia F34.1 and Opioid use disorder, severe, in sustained remission F11.21 [facility] [address] [place] [address] Jul, Opioid use disorder, severe, in sustained remission F11.21 [facility] [id number] [place] [address] 17182- 7674 Jul, Long-term use of high-risk medication Z79.899 and Chronic kidney disease, stage 3 N18.3 [facility] [id number] [place] [address] 78498 254 Jul, Opioid use disorder, severe, 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 [facility] [address], [place] [address] 4[address] Jul, [facility] [id number] [place] [address] 62368 2546 Jun, [facility] [id number] [place] [address] 29667- 2546 Jun, [facility] [id number] [place] [address] 59354- 1702 Jun, Opioid use disorder, moderate, dependence F11.20 and Opioid use disorder, severe, 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 [facility] [address] [place] [address] 51819- 3665 Jun, [facility] [id number] [place] [address] 50138- 5906 Jun, Long-term use of high-risk medication Z79.899 [facility] [id number] [place] [address] 47160- 5859 Jun, CHI I (cervical intraepithelial neoplasia I) N87.0 [place] [id number] [place] [address] 81879- 6863 22 May, 2017 Opioid use disorder, severe, 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 [address] [place] [address] 05 May, 2017 Opioid use disorder, severe, in sustained remission F11.21 [facility] [id number] [place] [address] 24863- 0353 Apr, LGSIL on Pap smear of cervix R87.[address] 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 [facility] [id number] [place] [address] 76335- 3093 Apr, Mild episode of recurrent major depressive disorder F33.0 and Right acute serous otitis media, recurrence not specified H65.01 [facility] [id number] [place] [address] 98333- 3816 Mar, [facility] [id number] [place] [address] 87889- 2695 Mar, Opioid use disorder, severe, 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 [address] [place] [address] Jan, Opioid use disorder, severe, in sustained remission F11.[address] [facility] [address] [place] [address] Jan, Opioid use disorder, severe, in sustained remission F11.21 [facility] [address] [place] [id number] [place] [address] 01573- 8607 Jan, Opioid use disorder, severe, in early remission F11.[address] [facility] [address] [place] [address] Jan, Opioid use disorder, severe, in sustained remission F11.21 [place] [id number] [place] [address] 30870- 2231 December, Opioid use disorder, severe, in early remission F11.[address] 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 [address] [place] [address] December, Opioid use disorder, severe, in sustained remission F11.21 [facility] [address] [place] [id number] [place] [address] 77760- 5412 December, Opioid use disorder, severe, in early remission F11.[address] [facility] [address] [place] [address] December, Opioid use disorder, severe, in sustained remission F11.21 [facility] [id number] [place] [address] 31089- 0800 December, Encounter for therapeutic drug level monitoring Z51.81 [facility] [address] [place] [address] December, Opioid use disorder, severe, in sustained remission F11.21 [facility] [address] [place] [address] Dec, Opioid use disorder, severe, in sustained remission F11.21 [facility] [id number] [place] [address] 88286- 6129 Dec, Opioid use disorder, severe, 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 [address] [place] [address] Dec, Opioid use disorder, severe, in sustained remission F11.21 [facility] [id number] [place] [address] 59383- 4978 Dec, Opioid use disorder, severe, in early remission F11.[address] 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 [address] [place] [address] Oct, Opioid use disorder, severe, in sustained remission F11.21 [facility] [address] [place] [id number] [place] [address] 52062- 7066 Oct, Opioid use disorder, severe, in early remission F11.21 [facility] [id number] [place] [address] 18334- 3154 15 Oct, [address] 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 [address] [place] [address] Oct, Opioid use disorder, severe, in sustained remission F11.21 [facility] [id number] [place] [address] 29691- 6311 Oct, Opioid use disorder, severe, in early remission F11.21 [facility] [id number] [place] [address] 68355- 6681 Oct, Opioid use disorder, severe, in early remission F11.[address] [facility] [address] [place] [address] Oct, Opioid use disorder, severe, in sustained remission F11.21 [facility] [address] 11020- 8587 20 Oct, 2016 Opioid use disorder, severe, in sustained remission F11.21 ; Encounter for therapeutic drug level monitoring Z51.81 and Other intermediate manager ( current) drug therapy Z79.899 [facility] [id number] [place] [address] 99949- 4061 16 Oct, 2016 [facility] [address] [place] [address] 14 Oct, 2016 Opioid use disorder, severe, in early remission F11.21 [facility] [address] [place] [address] 10 Oct, 2016 Opioid use disorder, severe, 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 [facility] [address] 56393- 8022 09 Oct, 2016 Opioid use disorder, severe, in early remission F11.21 [facility] [address] 27938- 7672 08 Oct, 2016 [facility] [address] 43203- 3395 Oct, [facility] [id number] [place] [address] 60582- 6149 Oct, [facility] [address] [place] [address] Oct, Opioid use disorder, severe, in early remission F11.21 [facility] [id number] [place] [address] 03950- 7072 Sep, Opioid use disorder, severe, in early remission F11.21 [facility] [address] [place] [address] Sep, Opioid use disorder, severe, in early remission F11.21 [facility] [address] 36484- 8693 Sep, Opioid use disorder, severe, 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 [address] [place] [address] Sep, Opioid use disorder, severe, in early remission F11.[address] [facility] [address] [place] [address] Sep, Opioid use disorder, severe, in early remission F11.[address] 14911- 1926 Sep, Opioid use disorder, moderate, dependence F11.20 [facility] [address] 89615- 4711 Sep, Opioid use disorder, moderate, dependence F11.[address] [facility] [address] [place] [address] Sep, Opioid use disorder, severe, in early remission F11.[address] 74653- 4187 Sep, Opioid use disorder, severe, in early remission F11.[address] 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 [address] 72[address]1385 Aug, Bug bite without infection, initial encounter W57.[address]A [place] [address], [place] [address] 4085 Aug, Opioid use disorder, moderate, dependence F11.[address] 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 [address] [place] [address] 15 Aug, 2016 [facility] [id number] [place] [address] 06803- 9304 15 Aug, 2016 Opioid use disorder, moderate, dependence F11.20 ; Other intermediate (current) drug therapy Z79.899 and Encounter for therapeutic drug level monitoring Z51.81 [facility] [id number] [place] [address] 71247- 8999 13 Aug, 2016 [facility] [id number] [place] [address] 03404- 2848 Aug, Non-intractable vomiting with nausea, unspecified vomiting type R11.2 [facility] [id number] [place] [address] 70255- 1343 Aug, Opioid use disorder, moderate, dependence F11.20 and Non- intractable vomiting with nausea, unspecified vomiting type R11.2 [facility] [address] [place] [address] 27343- 8319 Aug, [facility] [id number] [place] [address] 35972- 6109 Aug, Opioid use disorder, moderate, dependence F11.20 [facility] [id number] [place] [address] 06560- 0486 Aug, [facility] [id number] [place] [address] 88727- 0026 Jul, 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 [address] [place] [address] Jul, [facility] [id number] [place] [address] 10132- 4570 Jul, [facility] [id number] [place] [address] 84404- 6738 Jul, [facility] [id number] [place] [address] 43547- 0251 Jul, Addiction to drug F19.20 and Chronic kidney disease, stage [address] 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 ; Diarrhea, unspecified type R19.7 and Essential hypertension I10 [facility] [id number] [place] [address] 35110- 7094 Jul, [facility] [id number] [place] [address] 48058- 3185 Jun, [facility] [id number] [place] [address] 63043- 1473 Jun, [facility] [id number] [place] [address] 98749- 3842 Apr, 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 [facility] [id number] [place] [address] 12842- 6750 Apr, Sore throat and laryngitis J06.0 and Non-intractable vomiting with nausea, unspecified vomiting type R11.2 [facility] [address], [place] [address]- 5037 Apr, [facility] [id number] [place] [address] 11761- 7582 Mar, [facility] [id number] [place] [address] 62122- 1214 Jan, [facility] [id number] [place] [address] 30355- 1251 Jan, [facility] [id number] [place] [address] 67643- 4110 Jan, [place] [address] [id number] [place] [address] 87377- 7230 December, 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 ; Gastroparesis K31.84 ; Mixed hyperlipidemia E78.2 ; Chronic kidney disease, stage 3 N18.3 ; Dysthymia F34.1 and Acute bilateral low back pain without sciatica M54.5 [facility] [id number] [place] [address] 83164- 2846 December, [facility] [id number] [place] [address] 15680- 8516 December, [facility] [id number] [place] [address] 15051- 6404 Aug, Depression F32.9 and Gastroparesis K31.84 [facility] [address] [place] [address] 82514- 8904 Aug, Gastroparesis K31.84 [facility] [id number] [place] [address] [phone] Jul, Recurrent UTI N39.0 ; Chronic kidney disease, stage 3 N18.3 and 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 [facility] [id number] [place] [address] [phone] Jul, [facility] [id number] [id number] Jul, Dental examination Z01.20 and Dental caries K02.9 [facility] [id number] [place] [address] [phone] Jul, [facility] [id number] [place] [address] [phone] Jul, Dysuria R30.0 ; Urinary tract infection N39.0 and Nausea R11.0 [facility] [id number] [place] [address] [id number] Jun, Dysuria R30.0 [facility] [id number] [place] [address] 17699- 4393 Jun, Dysuria R30.0 [facility] [id number] [place] [address] 02818- 8904 Jun, Dysuria R30.0 [facility] [id number] [place] [address] 63838- 2765 Jun, [facility] [id number] [place] [address] 39483- 1052 Jun, Acute cystitis with hematuria N30.01 [facility] [id number] [place] [address] 99406- 8855 May, [facility] [id number] [place] [address] 60245- 1303 Apr, Diabetes mellitus without mention of complication, type I [ juvenile type], not stated as uncontrolled 250.01 ; Gastroparesis due to DM 250.60 ; Contraception management V25.9 and Renal insufficiency 593.9 [facility] [id number] [place] [address] 28990- 6966 Apr, [facility] [id number] [place] [address] 03066- 5453 Apr, [facility] [address] [place] [address]- 3951 Mar, [place] [id number] [place] [address] 34909- 8888 Mar, Hyperlipidemia 272.4 and Hypertensive heart and chronic kidney disease, benign, without heart failure and with chronic kidney disease stage I through stage IV, or unspecified 404.10 [place] [id number] [place] [address] 28240- 2841 Mar, Hyperlipidemia 272.4 ; Hyponatremia 276.1 ; 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 ; Hypertensive heart and chronic kidney disease, benign, without heart failure and with chronic kidney disease stage I through stage IV, or unspecified 404.10 ; Proteinuria 791.0 and Chronic kidney disease (CKD), stage III (moderate) 585.3 [place] [id number] [place] [address] 91008- 6510 Mar, [id number] [place] [address] 69903- 2965 Mar, Elevated blood sugar level 790.29 [id number] [place] [address] 14676- 6573 Mar, Low grade squamous intraepithelial lesion (LGSIL) on cervical Pap smear 795.03 [address] [id number] [place] [address] 05872- 1802 Mar, Amenorrhea 626.0 [address] [id number] [place] [address] 17727- 4672 Jan, Amenorrhea 626.0 ; Routine gynecological examination V72.31 and Screen for STD (sexually transmitted disease) V74.5 [place] [address] [id number] [place] [address] 77435- 2198 Jan, Amenorrhea 626.0 [id number] [place] [address] 93249- 1051 Jan, Routine gynecological examination V72.31 ; Screen for STD ( sexually transmitted disease) V74.5 ; Pap test, as part of routine gynecological examination V76.2 ; Breast cancer screening V76.10 and Amenorrhea 626.0 [facility] [address] [facility] [id number] [place] [address]- 1291 December, [facility] [address] [facility] [id number] [place] [address]- 1718 Dec, [facility] [address] [facility] [id number], [place] [address]- 2678 Dec, [facility] [address] [facility] [id number] [place] 1100 Oct, [facility] [id number] [place] [address] 9903 Oct, [facility] [address] 7070 Oct, [facility] [id number], [place] [address]- 1340 Oct, [facility] [address] [id number] [address]- 4338 Oct, [facility] [id number], [place] [address]- 7206 Oct, [facility] [address] 7281 Oct, [facility] [id number], [place] [address]- 9708 Oct, [facility] [address] [facility] [id number] [place] 7312 Oct, [facility] [address] 9125 Oct, [facility] [address] [id number], [place] [address]- 8212 Oct, [facility] [address], [place] [address]- 8991 Sep, [facility] [place] [facility] [address] [id number] [place] [address]- 3791 Sep, [facility] [place] [facility] [address] [id number] [place] [address]- 1431 Sep, [facility] [place] [facility] [address] [id number] [place] [address]- 7946 Sep, [facility] [place] [facility] [address] [id number] [place] [address]- 3091 Sep, [facility] [place] [facility] [address] [id number] [place] [address]- 4929 Sep, [facility] [place] [facility] [address] [id number] [place] [address]- 7939 Sep, [facility] [place] [facility] [address] [id number] [place] [address]- 0103 Sep, [facility] [place] [facility] [address] [id number] [place] [address]- 4920 Sep, [facility] [place] [facility] [address] [id number] [place] [address]- 0993 Sep, [facility] [place] [facility] [address] [id number] [place] [address]- 5165 Sep, [facility] [place] [facility] [address] [id number], [place] [address]- 6381 Sep, [facility] [place] [facility] [address] [id number], [place] [address]- 3857 Sep, [facility] [place] [facility] [address] [id number] [place] [address]- 2080 Sep, [facility] [place] [facility] [address] [id number], [place] [address]- 6666 Sep, [facility] [place] [facility] [address] [id number] [place] [address]- 2221 Sep, [facility] [place] [facility] [address] [id number] [place] [address]- 0128 Sep, [facility] [address] [id number] [place] [address]- 5604 Sep, [facility] [place] [facility] [address] [id number] [place] [address]- 0918 Sep, [facility] [address] [id number] [place] [address]- 5963 Sep, [facility] [address] [id number] [place] [address]- 7908 Aug, [facility] [address] [id number] [place] [address]- 4456 Aug, [facility] [address] [id number] [place] [address]- 2021 Aug, [facility] [address] [id number] [place] [address]- 1378 Aug, [facility] [address] [id number] [place] [address]- 3691 08 Aug, 2014 [facility] [address] [id number] [place] [address]- 4147 Aug, [facility] [address] [id number] [place] [address]- 4678 Aug, [facility] [place] [facility] [address] [id number] [place] [address]- 1621 Aug, [facility] [place] [facility] [address] [id number] [place] [address]- 5972 Aug, [facility] [place] [facility] [address] [id number] [place] [address]- 6767 Aug, [facility] [place] [facility] [address] [id number] [place] [address]- 9778 Aug, [facility] [place] [facility] [address] [id number] [place] [address]- 3627 Aug, [facility] [place] [facility] [address] [id number] [place] [address]- 2196 Jul, [facility] [place] [facility] [address] [id number] [place] [address]- 1675 Jul, [facility] [place] [facility] [address] [id number] [place] [address]- 2240 Jul, [facility] [place] [facility] [address] [id number] [place] [address]- 4807 Jul, [facility] [place] [facility] [address] [id number] [place] [address]- 9265 Jul, [facility] [place] [facility] [address] [id number] [place] [address]- 6538 Jul, [facility] [place] [facility] [address] [id number] [place] [address]- 9796 Jul, [facility] [place] [facility] [address] [id number] [place] [address]- 1207 Jul, [facility] [place] [facility] [address] [id number] [place] [address]- 0057 Jul, [facility] [place] [facility] [address] [id number] [place] [address]- 7740 Jul, [facility] [place] [facility] [address] [id number] [place] [address]- 1832 Jun, [facility] [place] [facility] [address] [id number], [place] [address]- 8485 Jun, [facility] [place] [facility] [address] [id number] [place] [address]- 6601 Jun, [facility] [place] [facility] [address] [id number] [place] [address]- 5351 Jun, [facility] [place] [facility] [address] [id number] [place] [address]- 7259 Jun, [facility] [place] [facility] [address] [id number] [place] [address]- 6350 30 Jun, 2014 [facility] [place] [facility] [address] [id number] [place] [address]- 2008 15 Jun, 2014 [facility] [place] [facility] [address] [id number] [place] [address]- 3599 15 Jun, 2014 [facility] [place] [facility] [address] [id number] [place] [address]- 5169 22 May, 2013 [facility] [place] [facility] [address] [id number] [place] [address]- 6097 22 May, 2013 [facility] [place] [facility] [address] [id number] [place] [address]- 9302 18 May, 2014 [facility] [place] [facility] [address] [id number] [place] [address]- 2196 18 May, 2013 [facility] [place] [facility] [address] [id number] [place] [address]- 6847 09 May, 2014 [facility] [place] [facility] [address] [id number] [place] [address]- 6077 08 May, 2014 [facility] [place] [facility] [address] [id number] [place] [address]- 4831 02 May, 2014 [facility] [place] [facility] [address] [id number] [place] [address]- 1132 02 May, 2014 [facility] [place] [facility] [address] [id number] [place] [address]- 1051 Apr, [facility] [place] [facility] [address] [id number] [place] [address]- 3421 Apr, [facility] [place] [facility] [address] [id number] [place] [address]- 6080 Apr, [facility] [place] [facility] [address] [id number] [place] [address]- 0549 Apr, [facility] [place] [facility] [address] [id number] [place] [address]- 0213 Mar, [facility] [place] [facility] [address] [id number] [place] [address]- 8343 Mar, [facility] [place] [facility] [address] [id number] [place] [address]- 2594 Mar, [facility] [place] [facility] [address] [id number] [place] [address]- 9892 Mar, [facility] [place] [facility] [address] [id number] [place] [address]- 1322 Mar, [facility] [place] [facility] [address] [id number] [place] [address]- 2186 Mar, [facility] [place] [facility] [address] [id number] [place] [address]- 4137 Jan, [facility] [place] [facility] [address] [id number] [place] [address]- 7079 Jan, [facility] [place] [facility] [address] [id number] [place] [address]- 4626 Jan, [facility] [place] [facility] [address] [id number] [place] [address]- 5329 Jan, [facility] [place] [facility] [address] [id number] [place] [address]- 1960 Jan, [facility] [place] [facility] [address] [id number] [place] [address]- 4014 Jan, [facility] [place] [facility] [address] [id number] [place] [address]- 6034 Jan, [facility] [place] [facility] [address] [id number] [place] [address]- 5408 Jan, [facility] [place] [facility] [address] [id number] [place] [address]- 4855 Jan, [facility] [place] [facility] [address] [id number] [place] [address]- 9955 Jan, [facility] [place] [facility] [address] [id number] [place] [address]- 7239 Jan, [facility] [place] [facility] [address] [id number] [place] 5587 Jan, [facility] [place] [facility] [address] [id number] [place] [address]- 3745 December, [facility] [place] [facility] [address] [id number] [place] 1101 December, [facility] [place] [facility] [address] [id number] [place] 8142 December, [facility] [place] [facility] [address] [id number] [place] [address]- 5884 December, [facility] [place] [facility] [address] [id number] [place] [address]- 7651 Dec, [facility] [place] [facility] [address] [id number] [place] [address]- 6386 Dec, [facility] [place] [facility] [address] [id number] [place] [address]- 2311 Dec, [facility] [place] [facility] [address] [id number] [place] [address]- 9779 Dec, [facility] [place] [facility] [address] [id number] [place] [address]- 3082 Dec, [facility] [place] [facility] [address] [id number], [place] [address]- 8171 Dec, [facility] [place] [facility] [address] [id number], [place] [address]- 4338 Dec, [facility] [place] [facility] [address] [id number] [place] [address]- 7060 Dec, [facility] [place] [facility] [address] [id number] [place] [address]- 9263 Dec, [facility] [place] [facility] [address] [id number] [place] [address]- 5242 Dec, [facility] [place] [facility] [address] [id number] [place] [address]- 1511 Dec, [facility] [place] [facility] [address] [id number] [place] [address]- 0690 Dec, [facility] [place] [facility] [address] [id number] [place] [address]- 1114 Dec, [facility] [place] [facility] [address] [id number] [place] [address]- 3929 Dec, [facility] [place] [facility] [address] [id number] [place] [address]- 5612 Oct, [facility] [place] [facility] [address] [id number] [place] [address]- 6543 Oct, [facility] [place] [facility] [address] [id number] [place] [address]- 1797 Oct, [facility] [place] [facility] [address] [id number] [place] [address]- 6399 Oct, [facility] [place] [facility] [address] [id number] [place] [address]- 8594 Oct, [facility] [place] [facility] [address] [id number] [place] [address]- 4053 Oct, [facility] [place] [facility] [address] [facility] [id number] [id number] Oct, [facility] [place] [facility] [address] [id number] [place] [address]- 0446 Oct, [facility] [place] [facility] [address] [id number] [place] [address]- 8832 Oct, [facility] [place] [facility] [address] [id number] [place] [address]- 4383 Oct, [facility] [place] [facility] [address] [id number] [place] [address]- 5242 Sep, [facility] [place] [facility] [address] [id number] [place] [address]- 8785 Sep, [facility] [address], [place] [address]- 0868 Sep, [facility] [address], [place] [address]- 4162 Sep, [facility] [address], [place] [address]- 3117 Sep, [facility] [address], [place] [address]- 6264 Sep, [facility] [address], [place] [address]- 0120 Aug, [facility] [id number] [place] [address] 43358- 2273 Aug, [facility] [address], [place] [address]- 1613 Jul, [facility] [address], [place] [address]- 3213 Jul, [facility] [address], [place] [address]- 7442 Jul, [facility] [address], [place] [address]- 5937 Jul, [facility] [address] [id number], [place] [address]- 4323 Jul, IMMUNIZATIONS No Known Immunizations SOCIAL HISTORY Never Assessed REASON FOR VISIT Suboxone RX 08/14-09/12 PLAN OF CARE VITAL SIGNS MEDICATIONS Medication Instructions Dosage Frequency Start Date End Date Duration Status Suboxone 8-2 MG Sublingual Once a day 2.5 film under the tongue and allow to dissolve 24h Aug, Sep, 29 days Active RESULTS No Results PROCEDURES No [...]
--- OUTSIDE RECORDS SUMMARY | 2018-08-30 20:56 | XMS REPORT ---
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 Active 73843741 Problem Chronic kidney disease, stage 3 N18.3 Active 435275628 Problem CHI I (cervical intraepithelial neoplasia I) N87.0 Active 354921483 Problem Mild episode of recurrent major depressive disorder F33.0 Active 887570961 Problem Addiction to drug F19.20 Active 587496786 Problem Essential hypertension I10 Active 20481062 Problem Opioid use disorder, severe, in sustained remission F11.21 Active 83012174 Problem Irritable bowel syndrome with constipation K58.1 Active 789699354 ALLERGIES Substance Reaction Event Type Date Status Penicillin V Potassium rash Drug Allergy Jun, Active Cipro nausea and vomiting Drug Allergy Jun, Active Bactrim DS rash Drug Allergy Jun, Active ENCOUNTERS Encounter Location Date Diagnosis [facility] [address] [place] [address] December, [facility] [address] [facility] [id number] [address] December, [facility] [id number] [address] December, [facility] [id number] [address] December, [facility] [id number] [place] [address] 44563- 4190 December, Opioid use disorder, severe, in early remission F11.21 [facility] [address] [place] [address] Dec, Opioid use disorder, severe, in sustained remission F11.21 [facility] [id number] [place] [address] 11378- 4261 Dec, 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 ; Unprotected sexual intercourse Z72.51 ; Pain of left thumb M79.645 ; Mixed hyperlipidemia E78.2 ; Gastroparesis K31.84 ; Essential hypertension I10 and Irritable bowel syndrome with constipation K58.1 [facility] [address] [address] Dec, Opioid use disorder, severe, in early remission F11.21 [facility] [id number] [place] [address] 38023- 0132 Oct, [facility] [id number] [place] [address] 35517- 7708 Oct, Opioid use disorder, severe, in early remission F11.21 [facility] [id number] [place] [address] 96078- 8741 Oct, [facility] [id number] [place] [address] 55379- 6939 Oct, Opioid use disorder, severe, 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 [facility] [id number] [place] [address] 42107- 4793 Oct, [facility] [id number] [place] [address] 93344- 5352 Oct, [facility] [address] [place] [address] Oct, Opioid use disorder, severe, in sustained remission F11.21 [facility] [id number] [place] [address] 39847- 0104 Sep, [place] [address] [address] Sep, [facility] [id number] [place] [address] 76648- 1258 Sep, Opioid use disorder, severe, in early remission F11.21 [facility] [id number] [place] [address] 23031- 2546 Aug, Opioid use disorder, severe, 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 [facility] [id number] [place] [address] 97053- 2610 Jul, [place] [id number] [place] [address] 29220- 3416 Jul, Chronic kidney disease, stage 3 N18.3 ; Dysthymia F34.1 and Opioid use disorder, severe, in sustained remission F11.21 [facility] [address] [place] [address] Jul, Opioid use disorder, severe, in sustained remission F11.21 [facility] [id number] [place] [address] 28906- 5997 Jul, Long-term use of high-risk medication Z79.899 and Chronic kidney disease, stage 3 N18.3 [facility] [id number] [place] [address] 25650- 6795 Jul, Opioid use disorder, severe, 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 [facility] [id number] [place] [address] 23340- 3231 Jul, [facility] [id number] [place] [address] 86770- 6275 Jun, [facility] [id number] [place] [address] 44875- 2756 Jun, [facility] [address] [place] [address] 44228- 7156 Jun, Opioid use disorder, moderate, dependence F11.20 and Opioid use disorder, severe, 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 [facility] [address] [place] [address] 85720- 3224 Jun, [facility] [id number] [place] [address] 05608- 9084 Jun, Long-term use of high-risk medication Z79.899 [place] [id number] [place] [address] 12814- 2911 Jun, CHI I (cervical intraepithelial neoplasia I) N87.0 [place] [id number] [place] [address] 69798- 0244 22 May, 2017 Opioid use disorder, severe, 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 [place] [id number] [place] [address] 45975- 9724 18 May, 2017 Chronic kidney disease, stage 3 N18.3 [place] [address] [address]95- 7564 14 May, 2017 Chronic kidney disease, stage 3 N18.3 [facility] [address] [place] [address] 05 May, 2017 Opioid use disorder, severe, in sustained remission F11.21 [place] [id number] [place] [address] 80243- 2230 Apr, LGSIL on Pap smear of cervix R87.612 [facility] [address] [place] [address] Apr, [facility] [id number] [place] [address] 07717- 6920 Apr, Opioid use disorder, severe, 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 [place] [id number] [place] [address] 93068- 3893 Apr, Opioid use disorder, severe, 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 [place] [id number] [place] [address] 68876- 7721 Apr, Opioid use disorder, severe, 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 [place] [address] [place] [address] 86306- 6578 18 Apr, 2017 Opioid use disorder, severe, 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 [facility] [id number] [place] [address] 39268- 2906 14 Apr, 2017 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 [facility] [id number] [place] [address] 88543- 4960 10 Apr, 2017 Opioid use disorder, severe, 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 [facility] [address] [place] [address] Apr, Opioid use disorder, severe, in sustained remission F11.21 [facility] [id number] [place] [address] 89973- 9863 09 Apr, 2017 Opioid use disorder, severe, 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 [facility] [id number] [place] [address] 65591- 2618 Apr, Mild episode of recurrent major depressive disorder F33.0 and Right acute serous otitis media, recurrence not specified H65.01 [facility] [id number] [place] [address] 04798- 6524 Mar, [facility] [id number] [place] [address] 47785- 7716 Mar, Opioid use disorder, severe, 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 [facility] [id number] [place] [address] 86569- 5647 Mar, [facility] [address] [place] [address] Mar, Opioid use disorder, severe, in sustained remission F11.21 [facility] [address] [place] [address] Mar, Opioid use disorder, severe, in sustained remission F11.21 [facility] [id number] [place] [address] 91526- 2266 Mar, Opioid use disorder, severe, 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 [facility] [address] [address] 2983 Jan, Opioid use disorder, severe, in early remission F11.21 [facility] [address] [place] [address] Jan, Opioid use disorder, severe, in sustained remission F11.21 [facility] [address] [place] [address] Jan, Opioid use disorder, severe, in sustained remission F11.21 [facility] [address] [place] [id number] [place] [address] 06431- 2743 Jan, Opioid use disorder, severe, in early remission F11.21 [facility] [address] [place] [address] Jan, Opioid use disorder, severe, in sustained remission F11.21 [place] [id number] [place] [address] 98204- 8981 December, Opioid use disorder, severe, in early remission F11.21 [facility] [address] [place] [address] December, Opioid use disorder, severe, in sustained remission F11.21 [place] [id number] [place] [address] 35302- 5738 December, Routine gynecological examination Z01.419 and Chronic kidney disease, stage 3 N18.3 [place] [id number] [place] [address] 73609- 8248 December, Chronic kidney disease, stage 3 N18.3 ; 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 ; Gastroparesis K31.84 ; Essential hypertension I10 and Irritable bowel syndrome with constipation K58.1 [facility] [address] [place] [address] December, Opioid use disorder, severe, in sustained remission F11.21 [place] [id number] [place] [address] 06987- 8277 December, Opioid use disorder, severe, 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 [facility] [address] [place] [address] December, Opioid use disorder, severe, in sustained remission F11.21 [facility] [id number] [place] [address] 83852- 0955 December, Encounter for therapeutic drug level monitoring Z51.81 [facility] [address] [place] [address] December, Opioid use disorder, severe, in sustained remission F11.21 [facility] [address] [place] [address] Dec, Opioid use disorder, severe, in sustained remission F11.21 [facility] [id number] [place] [address] 41133- 0454 Dec, Opioid use disorder, severe, 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 [facility] [id number] [place] [address] 64266- 4199 Dec, [facility] [address] [place] [address] Dec, Opioid use disorder, severe, in sustained remission F11.21 [facility] [id number] [place] [address] 48496- 8747 Dec, Opioid use disorder, severe, 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 [facility] [address] [place] [address] Dec, Opioid use disorder, severe, in sustained remission F11.21 [place] [id number] [place] [address] 07047- 1026 Dec, 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 [facility] [address] [place] [id number] [place] [address] 87515- 5789 Dec, Opioid use disorder, severe, in sustained remission F11.21 ; Encounter for therapeutic drug level monitoring Z51.81 and Other 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 ( 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.899 [facility] [address] [place] [address] Oct, Opioid use disorder, severe, in sustained remission F11.21 [facility] [address] [place] [id number] [place] [address] 27096- 4439 Oct, Opioid use disorder, severe, 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 [facility] [id number] [place] [address] 09256- 2736 15 Oct, 2016 [facility] [address] [place] [address] Oct, Opioid use disorder, severe, in sustained remission F11.21 [facility] [address] 51655- 0840 15 Oct, 2016 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 [facility] [address] 07798- 9008 14 Oct, 2016 Routine gynecological examination Z01.419 [place] [address] 56437- 2419 07 Oct, 2016 Opioid use disorder, severe, in early remission F11.21 [facility] [address] 72908- 3620 06 Oct, 2016 Opioid use disorder, severe, in early remission F11.21 [facility] [address] 80054- 1471 Oct, Opioid use disorder, severe, in early remission F11.21 [facility] [address] [place] [address] Oct, Opioid use disorder, severe, in sustained remission F11.21 [facility] [id number] [place] [address] 80483- 8725 Oct, Opioid use disorder, severe, in early remission F11.21 [facility] [id number] [place] [address] 16318- 2639 Oct, Opioid use disorder, severe, in early remission F11.21 [facility] [address] [place] [address] Oct, Opioid use disorder, severe, in sustained remission F11.21 [facility] [address] 31815- 6125 Oct, Opioid use disorder, severe, in sustained remission F11.21 ; Encounter for therapeutic drug level monitoring Z51.81 and Other 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 ( current) drug therapy Z79.899 [facility] [id number] [place] [address] 95406- 5677 16 Oct, 2016 [facility] [address] [place] [address] 14 Oct, 2016 Opioid use disorder, severe, in early remission F11.21 [facility] [address] [place] [address] 10 Oct, 2016 Opioid use disorder, severe, in early remission F11.21 [facility] [address] 19662- 4786 09 Oct, 2016 Opioid use disorder, severe, 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 [facility] [id number] [place] [address] 55288- 2345 08 Oct, 2016 [facility] [address] 52563- 4490 Oct, [facility] [id number] [place] [address] 75194- 8063 Oct, [facility] [address] [place] [address] Oct, Opioid use disorder, severe, in early remission F11.21 [facility] [id number] [place] [address] 64296- 3687 Sep, Opioid use disorder, severe, in early remission F11.21 [facility] [address] [place] [address] Sep, Opioid use disorder, severe, 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 [facility] [address] 58095- 5239 Sep, Opioid use disorder, severe, 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 ; Other prison (current) drug therapy Z79.899 and Encounter for therapeutic drug level monitoring Z51.81 [facility] [id number] [place] [address] 99885- 4799 Sep, [facility] [id number] [place] [address] 74929- 7775 Sep, [place] [address] 39944- 7532 Sep, Opioid use disorder, severe, 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 ; 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 ; Chronic kidney disease, stage 3 N18.3 ; Essential hypertension I10 and Irritable bowel syndrome with constipation K58.1 [facility] [address] [place] [address] Sep, Opioid use disorder, severe, 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 [facility] [address] [place] [address] Sep, Opioid use disorder, severe, in early remission F11.[address] 88550- 3408 Sep, Opioid use disorder, moderate, dependence F11.20 [facility] [address] 36561- 5208 Sep, Opioid use disorder, moderate, dependence F11.20 [facility] [address] [place] [address] Sep, Opioid use disorder, severe, 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 [place] [id number] [place] [address] 47312- 8879 Sep, Opioid use disorder, severe, in early remission F11.21 [facility] [address] [place] [address] Aug, Opioid use disorder, severe, in early remission F11.[address] 53340- 4559 Aug, Opioid use disorder, moderate, dependence F11.20 [facility] [address] [address] Aug, Bug bite without infection, initial encounter W57.XXXA [place] [address] [address]- 8921 Aug, Opioid use disorder, moderate, dependence F11.20 [facility] [address] [place] [address] Aug, [facility] [id number] [place] [address] 28109- 7260 19 Aug, 2016 Opioid use disorder, severe, 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 ; Other prison (current) drug therapy Z79.899 ; Encounter for therapeutic drug level monitoring Z51.81 and 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 [facility] [address] [place] [address] 15 Aug, 2016 [facility] [id number] [place] [address] 02080- 3159 15 Aug, 2016 Opioid use disorder, moderate, dependence F11.20 ; Other 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 (current) drug therapy Z79.899 and Encounter for therapeutic drug level monitoring Z51.81 [facility] [id number] [place] [address] 41263- 5943 13 Aug, 2016 [facility] [id number] [place] [address] 82995- 7702 Aug, Non-intractable vomiting with nausea, unspecified vomiting type R11.2 [facility] [id number] [place] [address] 77549- 4233 09 Aug, 2016 Opioid use disorder, moderate, dependence F11.20 and Non- intractable vomiting with nausea, unspecified vomiting type R11.2 [facility] [address] [place] [address] 27351- 5997 08 Aug, 2016 [facility] [id number] [place] [address] 67627- 9365 07 Aug, 2016 Opioid use disorder, moderate, dependence F11.20 [facility] [id number] [place] [address] 35265- 1340 06 Aug, 2016 [facility] [id number] [place] [address] 18655- 8069 Jul, 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 and Opioid use disorder, moderate, dependence F11.20 [facility] [address] [place] [address] Jul, [facility] [id number] [place] [address] 91938- 2339 Jul, [facility] [id number] [place] [address] 19018- 3735 Jul, [facility] [id number] [place] [address] 63313- 9305 Jul, Addiction to drug F19.20 and Chronic kidney disease, stage 3 N18.3 [facility] [address] [place] [address] Jul, Counseling on substance use and abuse Z71.89 [place] [id number] [place] [address] 86185- 9018 Jul, Chronic kidney disease, stage 3 N18.3 [facility] [id number] [place] [address] 74939- 4758 Jul, 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 ; Diarrhea, unspecified type R19.7 and Essential hypertension I10 [facility] [address] [place] [address] 55172- 4200 Jul, [facility] [id number] [place] [address] 50779- 5539 Jun, [facility] [id number] [place] [address] 20436- 2764 Jun, [facility] [id number] [place] [address] 56484- 4793 Apr, 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 [facility] [id number] [place] [address] 66486- 0486 Apr, Sore throat and laryngitis J06.0 and Non-intractable vomiting with nausea, unspecified vomiting type R11.2 [facility] [address] [address]- 5645 Apr, [facility] [id number] [place] [address] 39824- 4116 Mar, [facility] [id number] [place] [address] 55393- 7432 Jan, [facility] [id number] [place] [address] 94325- 2677 Jan, [facility] [id number] [place] [address] 41061- 5145 Jan, [place] [id number] [place] [address] 32443- 8876 December, 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 ; Gastroparesis K31.84 ; Mixed hyperlipidemia E78.2 ; Chronic kidney disease, stage 3 N18.3 ; Dysthymia F34.1 and Acute bilateral low back pain without sciatica M54.5 [facility] [id number] [place] [address] 53680- 3086 December, [facility] [id number] [place] [address] 82298- 1428 December, [facility] [id number] [place] [address] 81275- 4372 Aug, Depression F32.9 and Gastroparesis K31.84 [facility] [id number] [place] [address] 33719- 3851 Aug, Gastroparesis K31.84 [facility] [id number] [place] [address] 06393- 2900 Jul, Recurrent UTI N39.0 ; Chronic kidney disease, stage 3 N18.3 and 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 [facility] [id number] [place] [address] 90608- 9228 Jul, [place] [address] [address] Jul, Dental examination Z01.20 and Dental caries K02.9 [facility] [id number] [place] [address] 55917- 0351 17 Jul, 2015 [facility] [id number] [place] [address] 33703 -0212 Jul, Dysuria R30.0 ; Urinary tract infection N39.0 and Nausea R11.0 [facility] [id number] [place] [address] [id number]- [phone] Jun, Dysuria R30.0 [facility] [id number] [place] [address] 96567- [phone] Jun, Dysuria R30.0 [facility] [address] [address]- [phone] Jun, Dysuria R30.0 [facility] [id number] [place] [address] [id number]- 1036 Jun, [facility] [id number] [place] [address] [phone]- [phone] Jun, Acute cystitis with hematuria N30.01 [facility] [id number] [place] [address] [phone]- [phone] May, [facility] [id number] [place] [address] [id number]- 1260 Apr, Diabetes mellitus without mention of complication, type I [ juvenile type], not stated as uncontrolled 250.01 ; Gastroparesis due to DM 250.60 ; Contraception management V25.9 and Renal insufficiency 593.9 [facility] [id number] [place] [address] 60538- 4187 Apr, [facility] [id number] [place] [address] 29778- 1195 Apr, [facility] [address] [place] [address] 50[address] Mar, [place] [id number] [place] [address] 28294- 0849 Mar, Hyperlipidemia 272.4 and Hypertensive heart and chronic kidney disease, benign, without heart failure and with chronic kidney disease stage I through stage IV, or unspecified 404.10 [place] [id number] [place] [address] 85616- 1228 Mar, Hyperlipidemia 272.4 ; Hyponatremia 276.1 ; 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 ; Hypertensive heart and chronic kidney disease, benign, without heart failure and with chronic kidney disease stage I through stage IV, or unspecified 404.10 ; Proteinuria 791.0 and Chronic kidney disease (CKD), stage III (moderate) 585.3 [place] [id number] [place] [address] 59175- 7116 Mar, [place] [id number] [place] [address] 94588- 2506 Mar, Elevated blood sugar level 790.29 [address] [id number] [place] [address] 66178- 1723 Mar, Low grade squamous intraepithelial lesion (LGSIL) on cervical Pap smear 795.03 [place] [id number] [place] [address] 94469- 5699 Mar, Amenorrhea 626.0 [address] [id number] [place] [address] 03367- 4229 Jan, Amenorrhea 626.0 ; Routine gynecological examination V72.31 and Screen for STD (sexually transmitted disease) V74.5 [address] [id number] [place] [address] 61308- 7414 Jan, Amenorrhea 626.0 [place] [id number] [place] [address] 99046- 0334 Jan, Routine gynecological examination V72.31 ; Screen for STD ( sexually transmitted disease) V74.5 ; Pap test, as part of routine gynecological examination V76.2 ; Breast cancer screening V76.10 and Amenorrhea 626.0 [facility] [address] [address] 6[address] December, [facility] [address] [facility] [id number] [place] [address]- 7127 Dec, [facility] [id number] [address]- 1012 Dec, [facility] [address] [facility] [id number] [place] 6968 Oct, [facility] [id number] [address]- 4503 Oct, [facility] [address] [address]- 6294 Oct, [facility] [address] [address]- 2385 Oct, [facility] [address] [address]- 5973 Oct, [facility] [address] [address]- 8734 Oct, [facility] [address] [address]- 9171 Oct, [facility] [address] [address]- 3463 Oct, [facility] [id number] 1484 Oct, [facility] [address] 5459 Oct, [facility] [address] [id number] [address]- 1386 Oct, [facility] [address] [address]- 0342 Sep, [facility] [place] [facility] [address] [id number] [place] [address]- 0762 Sep, [facility] [place] [facility] [address] [id number] [place] [address]- 5004 Sep, [facility] [place] [facility] [address] [id number] [place] [address]- 3000 Sep, [facility] [place] [facility] [address] [id number] [place] [address]- 6399 Sep, [facility] [place] [facility] [address] [id number] [place] [address]- 8008 Sep, [facility] [place] [facility] [address] [id number] [place] [address]- 0031 Sep, [facility] [place] [facility] [address] [id number] [place] [address]- 7558 Sep, [facility] [place] [facility] [address] [id number] [place] [address]- 5270 Sep, [facility] [place] [facility] [address] [id number] [place] [address]- 6204 Sep, [facility] [place] [facility] [address] [id number] [place] [address]- 8920 Sep, [facility] [place] [facility] [address] [id number] [place] [address]- 5467 Sep, [facility] [place] [facility] [address] [id number] [place] [address]- 6827 Sep, [facility] [place] [facility] [address] [id number] [place] [address]- 2091 Sep, [facility] [place] [facility] [address] [id number] [place] [address]- 9978 Sep, [facility] [place] [facility] [address] [id number] [place] [address]- 5643 Sep, [facility] [place] [facility] [address] [id number] [place] [address]- 0199 Sep, [facility] [address] [id number] [place] [address]- 2337 Sep, [facility] [address] [id number] [place] [address]- 5518 Sep, [facility] [address] [id number] [place] [address]- 5625 Sep, [facility] [address] [id number] [place] [address]- 1404 Aug, [facility] [address] [id number] [place] [address]- 4628 Aug, [facility] [address] [id number] [place] [address]- 6249 Aug, [facility] [address] [id number] [place] [address]- 2719 Aug, [facility] [address] [id number] [place] [address]- 8264 Aug, [facility] [address] [id number] [place] [address]- 2056 Aug, [facility] [address] [id number] [place] [address]- 1896 Aug, [facility] [place] [facility] [address] [id number] [place] [address]- 9538 Aug, [facility] [address] [id number] [place] [address]- 1946 Aug, [facility] [place] [facility] [address] [id number] [place] [address]- 4569 Aug, [facility] [place] [facility] [address] [id number] [place] [address]- 6387 Aug, [facility] [place] [facility] [address] [id number] [place] [address]30 Aug, [facility] [place] [facility] [address] [id number] [place] [address]- 4639 Jul, [facility] [place] [facility] [address] [id number] [place] [address]- 4176 Jul, [facility] [place] [facility] [address] [id number] [place] [address]- 3311 Jul, [facility] [place] [facility] [address] [id number] [place] [address]- 2166 Jul, [facility] [place] [facility] [address] [id number] [place] [address]- 1268 Jul, [facility] [place] [facility] [address] [id number] [place] [address]- 0646 Jul, [facility] [place] [facility] [address] [id number] [place] [address]- 6086 Jul, [facility] [place] [facility] [address] [id number] [place] [address]- 0549 Jul, [facility] [place] [facility] [address] [id number] [place] [address]- 1250 Jul, [facility] [place] [facility] [address] [id number] [address]- 0339 Jul, [facility] [place] [facility] [address] [id number] [address]- 7311 Jun, [facility] [place] [facility] [address] [id number] [address]- 2898 Jun, [facility] [place] [facility] [address] [id number] [place] [address]- 9284 Jun, [facility] [place] [facility] [address] [id number] [place] [address]- 4724 Jun, [facility] [place] [facility] [address] [id number] [address]- 8669 Jun, [facility] [place] [facility] [address] [id number] [address]- 9281 30 Jun, 2014 [facility] [place] [facility] [address] [id number] [place] [address]- 2482 15 Jun, 2014 [facility] [place] [facility] [address] [id number] [place] [address]- 7390 15 Jun, 2014 [facility] [place] [facility] [address] [id number] [place] [address]- 7471 May, [facility] [place] [facility] [address] [id number] [place] [address]- 2323 22 May, 2014 [facility] [place] [facility] [address] [id number] [place] [address]- 6184 18 May, 2014 [facility] [place] [facility] [address] [id number] [place] [address]- 7097 May, [facility] [place] [facility] [address] [id number] [place] [address]- 9054 09 May, 2014 [facility] [place] [facility] [address] [id number] [place] [address]- 7165 08 May, 2014 [facility] [place] [facility] [address] [id number] [place] [address]- 4893 May, [facility] [place] [facility] [address] [id number] [place] [address]- 8683 May, [facility] [place] [facility] [address] [id number] [place] [address]- 4855 Apr, [facility] [place] [facility] [address] [id number] [place] [address]- 3572 Apr, [facility] [place] [facility] [address] [id number] [place] [address]- 0404 Apr, [facility] [place] [facility] [address] [id number] [place] [address]- 4112 Apr, [facility] [place] [facility] [address] [id number] [place] [address]- 6998 Mar, [facility] [place] [facility] [address] [id number] [place] [address]- 0876 Mar, [facility] [place] [facility] [address] [id number] [place] [address]- 3244 Mar, [facility] [place] [facility] [address] [id number] [place] [address]- 2022 Mar, [facility] [place] [facility] [address] [id number] [place] [address]- 5042 Mar, [facility] [place] [facility] [address] [id number] [place] [address]- 6913 Mar, [facility] [place] [facility] [address] [id number] [place] [address]- 1298 Jan, [facility] [place] [facility] [address] [id number] [place] [address]- 7363 Jan, [facility] [place] [facility] [address] [id number] [place] [address]- 9015 Jan, [facility] [place] [facility] [address] [id number] [place] [address]- 3587 Jan, [facility] [place] [facility] [address] [id number] [place] [address]- 0458 Jan, [facility] [place] [facility] [address] [id number] [place] [address]- 5581 Jan, [facility] [place] [facility] [address] [id number] [place] [address]- 6837 Jan, [facility] [place] [facility] [address] [id number] [place] [address]- 0449 Jan, [facility] [place] [facility] [address] [id number] [place] [address]- 7777 Jan, [facility] [place] [facility] [address] [id number] [place] [address]- 3099 Jan, [facility] [place] [facility] [address] [id number] [place] [address]- 1791 Jan, [facility] [place] [facility] [address] [id number] [place] [address]- 7503 Jan, [facility] [place] [facility] [address] [id number] [place] [address]- 0166 December, [facility] [place] [facility] [address] [id number] [place] [address]- 7017 December, [facility] [place] [facility] [address] [id number] [place] [address]- 8221 December, [facility] [place] [facility] [address] [id number] [place] [address]- 0782 December, [facility] [place] [facility] [address] [id number] [place] [address]- 6884 Dec, [facility] [place] [facility] [address] [id number] [place] [address]- 7185 Dec, [facility] [place] [facility] [address] [id number] [place] [address]- 6697 Dec, [facility] [place] [facility] [address] [id number] [place] [address]- 6343 Dec, [facility] [place] [facility] [address] [id number] [place] [address]- 8726 Dec, [facility] [place] [facility] [address] [id number] [place] [address]- 7858 Dec, [facility] [place] [facility] [address] [id number] [address]- 4016 Dec, [facility] [place] [facility] [address] [id number] [place] [address]- 6737 Dec, [facility] [place] [facility] [address] [id number] [place] [address]- 4776 Dec, [facility] [place] [facility] [address] [id number] [place] [address]- 0854 Dec, [facility] [place] [facility] [address] [id number] [place] [address]- 8402 Dec, [facility] [place] [facility] [address] [id number] [place] [address]- 0684 Dec, [facility] [place] [facility] [address] [id number] [place] [address]- 3510 Dec, [facility] [place] [facility] [address] [id number] [place] [address]- 0855 Dec, [facility] [place] [facility] [address] [id number] [place] 8632 Oct, [facility] [place] [facility] [address] [id number] [place] 7537 Oct, [facility] [place] [facility] [address] [id number] [place] [address]- 6060 Oct, [facility] [place] [facility] [address] [id number] [place] [address]- 9043 Oct, [facility] [place] [facility] [address] [id number] [place] [address]- 9359 Oct, [facility] [place] [facility] [address] [id number] [place] [address]- 2916 Oct, [facility] [place] [facility] [address] [facility] [id number] [place] [id number] Oct, [facility] [place] [facility] [address] [id number] [place] [address]- 3192 Oct, [facility] [place] [facility] [address] [id number] [place] [address]- 3648 Oct, [facility] [place] [facility] [address] [id number] [place] [address]- 9901 Oct, [facility] [place] [facility] [address] [id number] [place] [address]- 4899 Sep, [facility] [place] [facility] [address] [id number] [place] [address]- 9545 Sep, [facility] [place] [facility] [address] [id number] [address]- 6215 Sep, [facility] [id number] [address]- 0251 Sep, [facility] [id number] [address]- 9182 Sep, [facility] [id number] [address]- 5850 Sep, [facility] [id number] [address]- 5035 Aug, [facility] [address] [address]- 6318 Aug, [facility] [address] [address]- 8725 Jul, [facility] [address] [address]- 0996 Jul, [facility] [address] [address]- 8477 Jul, [facility] [address] [address]- 8161 Jul, [facility] [address] [id number] [address]- 2188 Jul, IMMUNIZATIONS No Known Immunizations SOCIAL HISTORY Never Assessed REASON FOR VISIT Test Results -- efrain cristina PLAN OF CARE Activity Details Follow Up 04/2017 Reason:repeat pap VITAL SIGNS Height 66 in 2017-06-05 Weight 179.0 lbs 2017-06-05 Temperature 97.0 degrees Fahrenheit 2017-06-05 BMI 28.89 kg/m2 2017-06-05 Blood pressure systolic 118 mmHg 2017-06-05 Blood pressure diastolic 76 mmHg 2017-06-05 MEDICATIONS Medication Instructions Dosage Frequency Start Date [...] hours PRN Nausea or Vomiting Sep, Active Suboxone 8-2 MG Sublingual Once a day 2 24h Aug, 30 days Active Milk Thistle 500 MG Active Dicyclomine HCl 10 mg Orally 2 times a day prn 1 tablet 30 Active Glucagon Emergency 1 MG as directed Apr, Active Vitamin B-6 100 MG Orally Once a day 1 tablet 24h Active Humalog 100 UNIT/ML Subcutaneous pump as per pump-must have appt for refills inject Units by Subcutaneous route every hour per insulin pump Active Vitamin B12 Active Enalapril Maleate 10 mg Orally twice a day 1 tablet 12h 30 Active Wellbutrin SR 100 mg Orally Once a day 1 tablet 24h Apr, 30 day (s) Active RESULTS No Results PROCEDURES No Known [...]
--- OUTSIDE RECORDS SUMMARY | 2018-08-30 20:57 | XMS REPORT ---
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 Active 59144162 Problem Chronic kidney disease, stage 3 N18.3 Active 531206184 Problem CHI I (cervical intraepithelial neoplasia I) N87.0 Active 175777241 Problem Mild episode of recurrent major depressive disorder F33.0 Active 771980309 Problem Addiction to drug F19.20 Active 808313480 Problem Essential hypertension I10 Active 90376251 Problem Opioid use disorder, severe, in sustained remission F11.21 Active 22376844 Problem Irritable bowel syndrome with constipation K58.1 Active 063594613 ALLERGIES No Information ENCOUNTERS Encounter Location Date Diagnosis [facility] [address] [place] [address] December, [facility] [id number] [place] [address] 50750- 0899 December, [facility] [address] [place] [address] Dec, Opioid use disorder, severe, in sustained remission F11.21 [facility] [id number] [place] [address] 22587- 3910 Dec, 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 ; Unprotected sexual intercourse Z72.51 ; Pain of left thumb M79.645 ; Mixed hyperlipidemia E78.2 ; Gastroparesis K31.84 ; Essential hypertension I10 and Irritable bowel syndrome with constipation K58.1 [facility] [id number] [place] [address] 60530- 3073 Dec, Opioid use disorder, severe, in early remission F11.21 [facility] [id number] [place] [address] 77393- 2676 Oct, [facility] [id number] [place] [address] 48348- 6499 Oct, Opioid use disorder, severe, in early remission F11.21 [facility] [id number] [place] [address] 97554- 2986 Oct, [facility] [id number] [place] [address] 22095- 8576 Oct, Opioid use disorder, severe, in early remission F11.21 [facility] [id number] [place] [address] 76165- 4762 Oct, [facility] [id number] [place] [address] 12829- 0685 Oct, [facility] [address] [place] [address] Oct, Opioid use disorder, severe, in sustained remission F11.21 [facility] [id number] [place] [address] 98069- 6279 Sep, [facility] [id number] [place] [address] 36548- 6269 Sep, [facility] [id number] [place] [address] 21503- 7889 Sep, Opioid use disorder, severe, in early remission F11.21 [facility] [id number] [place] [address] 879445- 6976 Aug, Opioid use disorder, severe, in early remission F11.21 [facility] [id number] [place] [address] 07625- 8765 Jul, [facility] [address] [place] [address] 83051- 7602 Jul, Chronic kidney disease, stage 3 N18.3 ; Dysthymia F34.1 and Opioid use disorder, severe, in sustained remission F11.21 [facility] [address] [place] [address] Jul, Opioid use disorder, severe, in sustained remission F11.21 [facility] [id number] [place] [address] 35538- 0890 Jul, Long-term use of high-risk medication Z79.899 and Chronic kidney disease, stage 3 N18.3 [facility] [id number] [place] [address] 26427- 2668 Jul, Opioid use disorder, severe, in early remission F11.21 [facility] [id number] [place] [address] 19980- 4365 Jul, [facility] [id number] [place] [address] 83805- 5470 Jun, [facility] [id number] [place] [address] 45441- 2165 Jun, [facility] [id number] [place] [address] 41775- 9527 Jun, Opioid use disorder, moderate, dependence F11.20 and Opioid use disorder, severe, in early remission F11.21 [facility] [id number] [place] [address] 09515- 2696 Jun, [facility] [id number] [place] [address] 78428- 5811 Jun, Long-term use of high-risk medication Z79.899 [facility] [id number] [place] [address] 02575- 2131 Jun, CHI I (cervical intraepithelial neoplasia I) N87.0 [facility] [facility] [address] 03095- 0673 May, Opioid use disorder, severe, in early remission F11.21 [facility] [id number] [place] [address] 75340- 0657 18 May, 2017 Chronic kidney disease, stage 3 N18.3 [facility] [id number] [place] [address] 24247- 5090 14 May, 2017 Chronic kidney disease, stage 3 N18.3 [facility] [address] [place] [address] 05 May, 2017 Opioid use disorder, severe, in sustained remission F11.21 [facility] [id number] [place] [address] 83250- 3965 Apr, LGSIL on Pap smear of cervix R87.612 [facility] [address] [place] [address] Apr, [facility] [id number] [place] [address] 79522- 3759 Apr, Opioid use disorder, severe, in early remission F11.21 [facility] [id number] [place] [address] 05326- 0140 Apr, Opioid use disorder, severe, in early remission F11.21 [facility] [id number] [place] [address] 90003- 3409 Apr, Opioid use disorder, severe, in early remission F11.21 [facility] [id number] [place] [address] 70118- 9963 Apr, Opioid use disorder, severe, in early remission F11.21 [facility] [id number] [place] [address] 70248- 8672 14 Apr, 2017 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 [facility] [id number] [place] [address] 88671- 6190 Apr, Opioid use disorder, severe, in early remission F11.21 [facility] [address] [place] [address] Apr, Opioid use disorder, severe, in sustained remission F11.21 [facility] [address] [address]- 2125 Apr, Opioid use disorder, severe, 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 [facility] [id number] [address] 0746 Apr, Mild episode of recurrent major depressive disorder F33.0 and Right acute serous otitis media, recurrence not specified H65.01 [facility] [id number] [place] [address] 17192- 4769 Mar, [facility] [id number] [place] [address] 03852- 9089 Mar, Opioid use disorder, severe, in early remission F11.21 [facility] [id number] [place] [address] 43201- 6284 Mar, [facility] [address] [place] [address] Mar, Opioid use disorder, severe, in sustained remission F11.21 [facility] [address] [place] [address] Mar, Opioid use disorder, severe, in sustained remission F11.21 [facility] [id number] [place] [address] 65416- 1232 Mar, Opioid use disorder, severe, in early remission F11.21 [facility] [address] [place] [address] 49031- 8401 Jan, Opioid use disorder, severe, in early remission F11.21 [facility] [address] [place] [address] Jan, Opioid use disorder, severe, in sustained remission F11.21 [facility] [address] [place] [address] Jan, Opioid use disorder, severe, in sustained remission F11.21 [facility] [address] [place] [address]- 1120 Jan, Opioid use disorder, severe, in early remission F11.21 [facility] [address] [place] [address] Jan, Opioid use disorder, severe, in sustained remission F11.21 [facility] [id number] [place] [address] 05628- 4792 December, Opioid use disorder, severe, in early remission F11.21 [facility] [address] [place] [address] December, Opioid use disorder, severe, in sustained remission F11.21 [place] [id number] [place] [address] 44530- 9783 December, Routine gynecological examination Z01.419 and Chronic kidney disease, stage 3 N18.3 [place] [id number] [place] [address] 22029- 1365 December, Chronic kidney disease, stage 3 N18.3 ; 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 ; Gastroparesis K31.84 ; Essential hypertension I10 and Irritable bowel syndrome with constipation K58.1 [facility] [address] [place] [address] December, Opioid use disorder, severe, in sustained remission F11.21 [place] [id number] [place] [address] 35242- 1902 December, Opioid use disorder, severe, in early remission F11.21 [facility] [address] [place] [address] December, Opioid use disorder, severe, in sustained remission F11.21 [place] [id number] [place] [address] 65096- 7864 December, Encounter for therapeutic drug level monitoring Z51.81 [facility] [address] [place] [address] December, Opioid use disorder, severe, in sustained remission F11.21 [facility] [address] [place] [address] Dec, Opioid use disorder, severe, in sustained remission F11.[address] 87019- 7010 Dec, Opioid use disorder, severe, in early remission F11.21 [facility] [id number] [place] [address] 29095- 6282 Dec, [facility] [address] [place] [address] Dec, Opioid use disorder, severe, in sustained remission F11.21 [facility] [id number] [place] [address] 80374- 6138 Dec, Opioid use disorder, severe, in early remission F11.21 [facility] [address] [place] [address] Dec, Opioid use disorder, severe, in sustained remission F11.21 [facility] [id number] [place] [address] 08018- 2820 Dec, 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 [place] [id number] [place] [address] 71812- 7633 Dec, Opioid use disorder, severe, in sustained remission F11.21 ; Encounter for therapeutic drug level monitoring Z51.81 and 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 [facility] [address] [place] [address] Oct, Opioid use disorder, severe, in sustained remission F11.21 [facility] [facility] [id number] [place] [address] 37073- 9686 Oct, Opioid use disorder, severe, 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 [facility] [id number] [place] [address] 62546- 5421 Oct, [facility] [address] [place] [address] Oct, Opioid use disorder, severe, in sustained remission F11.21 [facility] [id number] [place] [address] 11154- 1713 Oct, 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 [facility] [id number] [place] [address] 00515- 7514 14 Oct, 2016 Routine gynecological examination Z01.419 [facility] [id number] [place] [address] 55479- 1826 07 Oct, 2016 Opioid use disorder, severe, in early remission F11.21 [facility] [id number] [place] [address] 06953- 5096 Oct, Opioid use disorder, severe, in early remission F11.21 [facility] [id number] [place] [address] 71275- 0509 Oct, Opioid use disorder, severe, in early remission F11.21 [facility] [address] [place] [address] Oct, Opioid use disorder, severe, in sustained remission F11.21 [facility] [id number] [place] [address] 33059- 1920 24 Oct, 2016 Opioid use disorder, severe, in early remission F11.21 [facility] [id number] [place] [address] 69173- 7625 23 Oct, 2016 Opioid use disorder, severe, in early remission F11.21 [facility] [address] [place] [address] 22 Oct, 2016 Opioid use disorder, severe, in sustained remission F11.21 [facility] [id number] [place] [address] 77853- 8433 20 Oct, 2016 Opioid use disorder, severe, in sustained remission F11.21 ; Encounter for therapeutic drug level monitoring Z51.81 and Other fdc ( current) drug therapy Z79.899 [facility] [id number] [place] [address] 94595- 7581 16 Oct, 2016 [facility] [address] [place] [address] 14 Oct, 2016 Opioid use disorder, severe, in early remission F11.21 [facility] [address] [place] [address] 10 Oct, 2016 Opioid use disorder, severe, in early remission F11.21 [facility] [address] [place] [address] 53587- 5043 Oct, Opioid use disorder, severe, in early remission F11.21 [facility] [id number] [place] [address] 60598- 4069 Oct, [facility] [id number] [place] [address] 69498- 8410 Oct, [facility] [id number] [place] [address] 24270- 8906 Oct, [facility] [address] [place] [address] Oct, Opioid use disorder, severe, in early remission F11.21 [place] [id number] [place] [address] 65098- 5264 Sep, Opioid use disorder, severe, in early remission F11.21 [facility] [address] [place] [address] Sep, Opioid use disorder, severe, in early remission F11.21 [place] [facility] [id number] [place] [address] 75775- 5784 Sep, Opioid use disorder, severe, 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 ; Other fdc (current) drug therapy Z79.899 and Encounter for therapeutic drug level monitoring Z51.81 [facility] [facility] [address] [place] [address] 30274- 6829 Sep, [facility] [id number] [place] [address] 89159- 6566 Sep, [facility] [id number] [place] [address] 03322- 5146 Sep, Opioid use disorder, severe, 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 ; 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 ; Chronic kidney disease, stage 3 N18.3 ; Essential hypertension I10 and Irritable bowel syndrome with constipation K58.1 [facility] [address] [place] [address] Sep, Opioid use disorder, severe, 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 [facility] [address] [place] [address] Sep, Opioid use disorder, severe, 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 [facility] [address] [place] [id number] [place] [address] 11348- 1813 Sep, Opioid use disorder, moderate, dependence F11.20 [facility] [address] [place] [address] 90857- 4700 Sep, Opioid use disorder, moderate, dependence F11.20 [facility] [address] [place] [address] Sep, Opioid use disorder, severe, in early remission F11.[address] 03714- 0453 Sep, Opioid use disorder, severe, in early remission F11.21 [facility] [address] [place] [address] Aug, Opioid use disorder, severe, in early remission F11.[address] 98516- 1694 Aug, Opioid use disorder, moderate, dependence F11.20 [facility] [address] [place] [address] 01765 -5546 Aug, Bug bite without infection, initial encounter W57.XXXA [address] 06033- 6034 Aug, Opioid use disorder, moderate, dependence F11.20 [facility] [address] [place] [address] Aug, [address] 78973- 5083 Aug, Opioid use disorder, severe, in early remission F11.21 ; Other fdc (current) drug therapy Z79.899 ; Encounter for therapeutic drug level monitoring Z51.81 and 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 [facility] [address] [place] [address] Aug, [facility] [id number] [place] [address] 04725- 4769 Aug, Opioid use disorder, moderate, dependence F11.20 ; 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 and Encounter for therapeutic drug level monitoring Z51.81 [facility] [id number] [place] [address] 54120- 7711 Aug, [facility] [address] 68769- 1285 Aug, Non-intractable vomiting with nausea, unspecified vomiting type R11.2 [facility] [address] 14691- 0681 Aug, Opioid use disorder, moderate, dependence F11.20 and Non- intractable vomiting with nausea, unspecified vomiting type R11.2 [facility] [address] 44963- 7972 Aug, [facility] [address] 82777- 8427 Aug, Opioid use disorder, moderate, dependence F11.20 [facility] [id number] [place] [address] 36921- 5718 Aug, [facility] [id number] [place] [address] 41995- 9702 Jul, 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 and Opioid use disorder, moderate, dependence F11.20 [facility] [address] [place] [address] Jul, [facility] [address] 14680- 7378 Jul, [facility] [id number] [place] [address] 99422- 0588 Jul, [facility] [address] 30563- 9285 Jul, Addiction to drug F19.20 and Chronic kidney disease, stage 3 N18.3 [facility] [address] [place] [address] Jul, Counseling on substance use and abuse Z71.89 [facility] [id number] [place] [address] 08229- 3830 Jul, Chronic kidney disease, stage 3 N18.3 [facility] [address] 42612- 0617 Jul, 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 ; Diarrhea, unspecified type R19.7 and Essential hypertension I10 [place] [facility] [address] 70724- 8548 Jul, [place] [address] 26122- 0876 Jun, [place] [address] 66930- 2251 Jun, [facility] [address] 04002- 8820 Apr, 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 [place] [address] 47049- 1302 Apr, Sore throat and laryngitis J06.0 and Non-intractable vomiting with nausea, unspecified vomiting type R11.2 [facility] [id number] [place] [address] 11581- 0121 Apr, [facility] [id number] [place] [address] 70693- 4503 Mar, [place] [address] 21678- 1619 Jan, [place] [address] 20315- 7063 Jan, [facility] [address] 91028- 0195 Jan, [facility] [id number] [place] [address] 60433- 9295 December, 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 ; Gastroparesis K31.84 ; Mixed hyperlipidemia E78.2 ; Chronic kidney disease, stage 3 N18.3 ; Dysthymia F34.1 and Acute bilateral low back pain without sciatica M54.5 [place] [address] 15814- 2370 December, [place] [address] 24864- 7487 December, [place] [address] 74312- 4040 Aug, Depression F32.9 and Gastroparesis K31.[address] 85075- 0805 Aug, Gastroparesis K31.84 [place] [address] 92060- 5101 Jul, Recurrent UTI N39.0 ; Chronic kidney disease, stage 3 N18.3 and 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 [facility] [facility] [id number] [place] [address] 84554- 6398 Jul, [facility] [address] [id number] Jul, Dental examination Z01.20 and Dental caries K02.[address] 68849- 1306 Jul, [facility] [address] [place] [address] 99107 -2836 Jul, Dysuria R30.0 ; Urinary tract infection N39.0 and Nausea R11.[address] 40585- 7864 Jun, Dysuria R30.0 [facility] [address] [address] 1917 Jun, Dysuria R30.0 [facility] [address] [place] [address] 19023- 1482 Jun, Dysuria R30.0 [facility] [id number] [place] [address] 99234- 5898 Jun, [facility] [id number] [place] [address] 45792- 2053 Jun, Acute cystitis with hematuria N30.01 [facility] [id number] [place] [address] 07227- 0772 May, [facility] [id number] [place] [address] 03085- 0139 Apr, Diabetes mellitus without mention of complication, type I [ juvenile type], not stated as uncontrolled 250.01 ; Gastroparesis due to DM 250.60 ; Contraception management V25.9 and Renal insufficiency 593.9 [facility] [facility] [id number] [place] [address] 89748- 7247 Apr, [facility] [id number] [place] [address] [phone] Apr, [place] [id number] [place] [address] [phone] Mar, [facility] [id number] [place] [address] [phone] Mar, Hyperlipidemia 272.4 and Hypertensive heart and chronic kidney disease, benign, without heart failure and with chronic kidney disease stage I through stage IV, or unspecified 404.10 [facility] [id number] [place] [address] [phone] Mar, Hyperlipidemia 272.4 ; Hyponatremia 276.1 ; 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 ; Hypertensive heart and chronic kidney disease, benign, without heart failure and with chronic kidney disease stage I through stage IV, or unspecified 404.10 ; Proteinuria 791.0 and Chronic kidney disease (CKD), stage III (moderate) 585.3 [place] [address] [id number] [place] [address] [phone] Mar, [place] [address] [place] [id number] [place] [address] [phone] Mar, Elevated blood sugar level 790.29 [place] [address] [place] [id number] [place] [address] 85959- 0207 Mar, Low grade squamous intraepithelial lesion (LGSIL) on cervical Pap smear 795.03 [place] [address] [id number] [place] [address] 10542- 7595 Mar, Amenorrhea 626.0 [place] [id number] [place] [address] 63716- 0826 Jan, Amenorrhea 626.0 ; Routine gynecological examination V72.31 and Screen for STD (sexually transmitted disease) V74.5 [place] [id number] [place] [address] 20787- 1022 Jan, Amenorrhea 626.0 [place] [id number] [place] [address] 30811- 9320 08 Jan, 2015 Routine gynecological examination V72.31 ; Screen for STD ( sexually transmitted disease) V74.5 ; Pap test, as part of routine gynecological examination V76.2 ; Breast cancer screening V76.10 and Amenorrhea 626.0 [place] [id number] [place] [address] 51202- 5274 December, [place] [id number] [place] [address] 63739- 3247 Dec, [place] [id number] [place] [address] 37699- 7416 Dec, [place] [id number] [place] [address] 81713- 6745 Oct, [facility] [place] [facility] [address] [id number] [place] [address] 8736 Oct, [facility] [place] [facility] [address] [id number] [place] [address]- 5316 Oct, [facility] [place] [facility] [address] [id number] [place] [address] Oct, [facility] [place] [facility] [address] [id number] [place] [address]- 2677 Oct, [facility] [place] [facility] [address] [id number] [place] [address]- 0673 Oct, [facility] [place] [facility] [address] [id number] [place] [address]- 8834 Oct, [facility] [place] [facility] [address] [id number] [place] [address]- 5114 Oct, [facility] [place] [facility] [address] [id number] [place] [address]- 5394 Oct, [facility] [place] [facility] [address] [id number] [place] [address]- 3089 Oct, [facility] [place] [facility] [address] [id number] [place] [address]- 1404 Oct, [facility] [place] [facility] [address] [id number] [place] [address]- 5893 Sep, [facility] [place] [facility] [address] [id number], [place] [address] 7916 Sep, [facility] [place] [facility] [address] [id number] [place] [address]- 6892 Sep, [facility] [place] [facility] [address] [id number] [place] 3077 Sep, [facility] [place] [facility] [address] [id number] [place] [address]- 6512 Sep, [facility] [place] [facility] [address] [id number] [place] [address]- 6968 16 Sep, 2014 [facility] [place] [facility] [address] [id number] [place] [address]- 7211 Sep, [facility] [place] [facility] [address] [id number] [place] [address]- 9982 Sep, [facility] [place] [facility] [address] [id number] [place] [address]- 7019 Sep, [facility] [place] [facility] [address] [id number] [place] [address]- 8674 Sep, [facility] [place] [facility] [address] [id number] [place] [address]- 9306 Sep, [facility] [place] [facility] [address] [id number] [place] [address]- 2771 Sep, [facility] [place] [facility] [address] [id number] [place] [address]- 2974 Sep, [facility] [place] [facility] [address] [id number] [place] [address]- 3028 Sep, [facility] [place] [facility] [address] [id number] [place] [address]- 3759 Sep, [facility] [place] [facility] [address] [id number] [place] [address]- 0375 Sep, [facility] [place] [facility] [address] [id number] [place] [address]- 5088 Sep, [facility] [place] [facility] [address] [id number] [place] [address]- 9883 Sep, [facility] [place] [facility] [address] [id number] [place] [address]- 7716 Sep, [facility] [place] [facility] [address] [id number] [place] [address]- 4342 Sep, [facility] [place] [facility] [address] [id number] [place] [address]- 1664 Aug, [facility] [place] [facility] [address] [id number] [place] [address]- 9085 Aug, [facility] [place] [facility] [address] [id number] [place] [address]- 5656 Aug, [facility] [place] [facility] [address] [id number] [place] [address]- 3079 Aug, [facility] [place] [facility] [address] [id number] [place] [address]- 1499 Aug, [facility] [place] [facility] [address] [id number] [place] [address]- 0657 Aug, [facility] [place] [facility] [address] [id number] [place] [address]- 3124 Aug, [facility] [place] [facility] [address] [id number] [place] [address]- 6528 Aug, [facility] [place] [facility] [address] [id number] [place] [address]- 3221 Aug, [facility] [place] [facility] [address] [id number] [place] [address]- 7171 Aug, [facility] [place] [facility] [address] [id number] [place] [address]- 2399 Aug, [facility] [place] [facility] [address] [id number] [place] [address]- 1942 Aug, [facility] [place] [facility] [address] [id number] [place] [address]- 3878 Jul, [facility] [place] [facility] [address] [id number] [place] [address]- 5739 Jul, [facility] [place] [facility] [address] [id number] [place] [address]- 8107 Jul, [facility] [place] [facility] [address] [id number] [place] [address]- 8201 Jul, [facility] [place] [facility] [address] [id number] [place] [address]- 1225 Jul, [facility] [place] [facility] [address] [id number] [place] 9163 Jul, [facility] [place] [facility] [address] [id number] [place] [address]- 6459 Jul, [facility] [place] [facility] [address] [id number] [place] 8900 Jul, [facility] [place] [facility] [address] [id number] [place] [address]- 5616 Jul, [facility] [place] [facility] [address] [id number] [place] [address]- 9973 Jul, [facility] [place] [facility] [address] [id number] [place] [address]- 3889 Jun, [facility] [place] [facility] [address] [id number] [place] [address]- 3879 Jun, [facility] [place] [facility] [address] [id number] [place] [address]- 3417 30 Jun, 2014 [facility] [place] [facility] [address] [id number] [place] [address]- 7444 30 Jun, 2014 [facility] [place] [facility] [address] [id number] [place] [address]- 2042 30 Jun, 2014 [facility] [place] [facility] [address] [id number] [place] [address]- 8530 30 Jun, 2014 [facility] [place] [facility] [address] [id number] [place] [address]- 8243 15 Jun, 2014 [facility] [place] [facility] [address] [id number] [place] [address]- 7514 15 Jun, 2014 [facility] [place] [facility] [address] [id number] [place] [address]- 9887 May, [facility] [place] [facility] [address] [id number] [place] [address]- 3003 May, [facility] [place] [facility] [address] [id number] [place] [address]- 8622 May, 2013 [facility] [place] [facility] [address] [id number] [place] [address]- 5418 May, [facility] [place] [facility] [address] [id number] [place] [address]- 5163 May, [facility] [place] [facility] [address] [id number] [place] [address]- 9622 May, [facility] [place] [facility] [address] [id number] [place] [address]- 0674 May, [facility] [place] [facility] [address] [id number] [place] [address]- 1729 May, [facility] [place] [facility] [address] [id number] [place] [address]- 9376 Apr, [facility] [place] [facility] [address] [id number] [place] [address]- 2791 Apr, [facility] [place] [facility] [address] [id number] [place] [address]- 5704 Apr, [facility] [place] [facility] [address] [id number] [place] [address]- 2076 Apr, [facility] [place] [facility] [address] [id number] [place] [address]- 7409 Mar, [facility] [place] [facility] [address] [id number] [place] [address]- 6142 Mar, [facility] [place] [facility] [address] [id number] [place] [address]- 1383 Mar, [facility] [place] [facility] [address] [id number] [place] [address]- 7360 Mar, [facility] [place] [facility] [address] [id number] [place] [address]- 7857 Mar, [facility] [place] [facility] [address] [id number] [place] [address]- 7291 Mar, [facility] [place] [facility] [address] [id number] [place] [address]- 6967 Jan, [facility] [place] [facility] [address] [id number] [place] [address]- 9283 Jan, [facility] [place] [facility] [address] [id number] [place] [address]- 4785 Jan, [facility] [place] [facility] [address] [id number] [place] [address]- 0579 Jan, [facility] [place] [facility] [address] [id number] [place] [address]- 6561 Jan, [facility] [place] [facility] [address] [id number] [place] [address]- 3782 Jan, [facility] [place] [facility] [address] [id number] [place] [address]- 2046 Jan, [facility] [place] [facility] [address] [id number] [place] [address]- 8590 Jan, [facility] [place] [facility] [address] [id number] [place] [address]- 5783 Jan, [facility] [place] [facility] [address] [id number] [place] [address]- 9127 Jan, [facility] [place] [facility] [address] [id number] [place] [address]- 1102 Jan, [facility] [place] [facility] [address] [id number], [place] [address]- 2323 Jan, [facility] [place] [facility] [address] [id number] [place] [address]- 3438 December, [facility] [place] [facility] [address] [id number] [place] [address]- 9768 December, [facility] [place] [facility] [address] [id number] [place] [address]- 4534 December, [facility] [place] [facility] [address] [id number], [place] [address]- 6679 December, [facility] [place] [facility] [address] [id number] [place] [address]- 0887 Dec, [facility] [place] [facility] [address] [id number] [place] [address]- 3195 Dec, [facility] [place] [facility] [address] [id number] [place] [address]- 5234 Dec, [facility] [place] [facility] [address] [id number] [place] [address]- 6494 Dec, [facility] [place] [facility] [address] [id number] [place] [address]- 4748 Dec, [facility] [place] [facility] [address] [id number] [place] [address]- 9900 Dec, [facility] [place] [facility] [address] [id number] [place] [address]- 7187 Dec, [facility] [place] [facility] [address] [id number] [place] [address]- 5905 Dec, [facility] [place] [facility] [address] [id number] [place] [address]- 8361 Dec, [facility] [place] [facility] [address] [id number] [place] [address]- 1684 Dec, [facility] [place] [facility] [address] [id number] [place] [address]- 0781 Dec, [facility] [place] [facility] [address] [id number] [place] [address]- 6482 Dec, [facility] [place] [facility] [address] [id number] [place] [address]- 9468 Dec, [facility] [place] [facility] [address] [id number] [place] [address]- 8550 Dec, [facility] [place] [facility] [address] [id number] [place] [address]- 7088 Oct, [facility] [place] [facility] [address] [id number] [place] [address]- 1936 31 Oct, 2013 [facility] [place] [facility] [address] [id number] [place] [address]- 0338 29 Oct, 2013 [facility] [place] [facility] [address] [id number] [place] [address]- 2666 29 Oct, 2013 [facility] [place] [facility] [address] [id number] [place] [address]- 3948 Oct, [facility] [place] [facility] [address] [id number] [place] [address]- 7395 Oct, [facility] [place] [facility] [address] [id number] [place] [address] Oct, [facility] [place] [facility] [address] [id number] [place] [address]- 3283 Oct, [facility] [place] [facility] [address] [id number] [place] [address]- 6180 Oct, [facility] [place] [facility] [address] [id number] [place] [address]- 8101 Oct, [facility] [place] [facility] [address] [id number] [place] [address]- 1724 Sep, [facility] [place] [facility] [address] [id number] [place] [address]- 7635 Sep, [facility] [place] [facility] [address] [id number] [place] [address]- 8905 Sep, [facility] [place] [facility] [address] [id number] [place] [address]- 1409 Sep, [facility] [place] [facility] [address] [id number] [place] [address]- 5196 Sep, [facility] [place] [facility] [address] [id number] [place] [address]- 2546 Sep, [facility] [place] [facility] [address] [id number] [place] [address]- 5596 Aug, [facility] [address] [facility] [id number] 7641 Aug, [facility] [id number] 6[address] Jul, [facility] [address] [id number] 5199 Jul, [facility] [address] [id number], [place] [address]- 0856 Jul, [facility] [address] [facility] [id number] 9819 Jul, [facility] [address] [id number], [place] [address]- 4688 Jul, IMMUNIZATIONS No Known Immunizations SOCIAL HISTORY Never Assessed REASON FOR VISIT Suboxone RX (05/26-06/24) PLAN OF CARE VITAL SIGNS MEDICATIONS Medication Instructions Dosage Frequency Start Date End Date Duration Status Suboxone 8-2 MG Sublingual Once a day 2 24h 15 Aug, 2016 30 days Active RESULTS No Results PROCEDURES [...]
--- OUTSIDE RECORDS SUMMARY | 2018-08-30 20:58 | XMS REPORT ---
Author Author [facility] Address [address] [place] [address] Care Team Providers Care Activities Volunteer Name Role Phone NELLA ALVIN Unavailable PROBLEMS Type Condition ICD9-CM Code [id number] Code Onset Dates Condition Status SNOMED Code Problem Essential hypertension I10 Active 46586040 Problem Addiction to drug F19.20 Active 695326513 Problem Diarrhea, unspecified type R19.7 Active 96890818 Problem Mild episode of recurrent major depressive disorder F33.0 Active 914576154 Problem Right acute serous otitis media, recurrence not specified H65.01 Active 740502825 Problem [facility] therapy Z79.899 Active 491289924 Problem Encounter for therapeutic drug level monitoring Z51.81 Active 321619046 Problem Opioid use disorder, severe, in sustained remission F11.21 Active 90240439 Problem Irritable bowel syndrome with constipation K58.1 Active 478794322 Problem 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
--- OUTSIDE RECORDS SUMMARY | 2018-08-30 20:58 | XMS REPORT ---
Author Author NOEMY MORGAN Organization [facility] Address [address] 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 Active 85242358 Problem Chronic kidney disease, stage 3 N18.3 Active 259692094 Problem CHI I (cervical intraepithelial neoplasia I) N87.0 Active 377997895 Problem Mild episode of recurrent major depressive disorder F33.0 Active 232878861 Problem Addiction to drug F19.20 Active 892193372 Problem Essential hypertension I10 Active 51915915 Problem Opioid use disorder, severe, in sustained remission F11.21 Active 71604083 Problem Irritable bowel syndrome with constipation K58.1 Active 127205755 ALLERGIES No Information ENCOUNTERS Encounter Location Date Diagnosis [facility] [address] [place] [address] Mar, [facility] [id number] [place] [address] 35011[address] 3583 Jan, Opioid use disorder, severe, in early remission F11.21 [facility] [id number] [address] December, Opioid use disorder, severe, in early remission F11.21 [facility] [address] [place] [address] December, Opioid use disorder, severe, in sustained remission F11.21 [facility] [id number] [place] [address] 68613- 1213 December, Opioid use disorder, severe, in sustained remission F11.21 and 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 [facility] [address] [address]40[address] 4057 December, Opioid use disorder, severe, in early remission F11.21 [facility] [address] [place] [address] Dec, Opioid use disorder, severe, in sustained remission F11.21 [facility] [address] 75926- 5962 Dec, 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 ; Unprotected sexual intercourse Z72.51 ; Pain of left thumb M79.645 ; Mixed hyperlipidemia E78.2 ; Gastroparesis K31.84 ; Essential hypertension I10 and Irritable bowel syndrome with constipation K58.1 [facility] [address] 95608- 7483 Dec, Opioid use disorder, severe, in early remission F11.21 [facility] [address] 15500- 4970 Oct, [facility] [address] 47239- 3309 Oct, Opioid use disorder, severe, 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 [facility] [id number] [place] [address] 18099- 9734 Oct, [facility] [id number] [place] [address] 11818- 6413 Oct, Opioid use disorder, severe, in early remission F11.21 [facility] [address] 06138- 7428 Oct, [facility] [address] 46662- 8042 Oct, [facility] [address] [place] [address] Oct, Opioid use disorder, severe, in sustained remission F11.21 [facility] [address] [address] Sep, [facility] [id number] [place] [address] 71099 2546 Sep, [facility] [id number] [place] [address] 26299- 6532 Sep, Opioid use disorder, severe, in early remission F11.21 [facility] [id number] [place] [address] 84586- 8856 Aug, Opioid use disorder, severe, 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 [facility] [id number] [place] [address] 44492- 5024 Jul, [facility] [id number] [place] [address] 04704- 4079 Jul, Chronic kidney disease, stage 3 N18.3 ; Dysthymia F34.1 and Opioid use disorder, severe, in sustained remission F11.21 [facility] [address] [place] [address] Jul, Opioid use disorder, severe, in sustained remission F11.21 [facility] [id number] [place] [address] 66445- 5349 Jul, Long-term use of high-risk medication Z79.899 and Chronic kidney disease, stage 3 N18.3 [facility] [id number] [place] [address] 39797- 7363 Jul, Opioid use disorder, severe, 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 [facility] [address] [address] 27[address] Jul, [facility] [id number] [place] [address] 41558- 4156 Jun, [facility] [address] [place] [address] 54024- 8689 Jun, [facility] [address] [place] [address] 66681- 5868 Jun, Opioid use disorder, moderate, dependence F11.20 and Opioid use disorder, severe, in early remission F11.21 [facility] [id number] [place] [address] 49008- 9318 Jun, [facility] [id number] [place] [address] 68302- 0181 Jun, Long-term use of high-risk medication Z79.899 [facility] [id number] [place] [address] 81027- 2697 Jun, CHI I (cervical intraepithelial neoplasia I) N87.0 [facility] [id number] [place] [address] 17828- 2300 May, Opioid use disorder, severe, 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 [facility] [id number] [place] [address] 39181- 9786 18 May, 2017 Chronic kidney disease, stage 3 N18.3 [facility] [id number] [place] [address] 82477- 2671 14 May, 2017 Chronic kidney disease, stage 3 N18.3 [facility] [address] [place] [address] 05 May, 2017 Opioid use disorder, severe, in sustained remission F11.21 [facility] [id number] [place] [address] 31505- 1471 Apr, LGSIL on Pap smear of cervix R87.612 [facility] [address] [place] [address] Apr, [facility] [id number] [place] [address] 16066- 1694 Apr, Opioid use disorder, severe, 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 [facility] [id number] [place] [address] 35881- 1265 Apr, Opioid use disorder, severe, in early remission F11.21 [facility] [address], [place] [address] Apr, Opioid use disorder, severe, in early remission F11.21 [facility] [id number] [place] [address] 90917- 5812 18 Apr, 2017 Opioid use disorder, severe, in early remission F11.21 [facility] [id number] [place] [address] 63874- 8967 14 Apr, 2017 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 [facility] [id number] [place] [address] 13967- 6064 10 Apr, 2017 Opioid use disorder, severe, 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 [facility] [address] [place] [address] Apr, Opioid use disorder, severe, in sustained remission F11.21 [facility] [id number] [place] [address] 46971- 6171 09 Apr, 2017 Opioid use disorder, severe, 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 [facility] [id number] [place] [address] 89147- 8746 Apr, Mild episode of recurrent major depressive disorder F33.0 and Right acute serous otitis media, recurrence not specified H65.01 [facility] [id number] [place] [address] 97545- 0297 Mar, [facility] [id number] [place] [address] 70758- 4733 Mar, Opioid use disorder, severe, 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 [facility] [id number] [place] [address] 05346- 7157 Mar, [facility] [address] [place] [address] Mar, Opioid use disorder, severe, in sustained remission F11.21 [facility] [address] [place] [address] Mar, Opioid use disorder, severe, in sustained remission F11.21 [facility] [address], [place] [address] 7792 Mar, Opioid use disorder, severe, in early remission F11.21 [place] [id number] [place] [address] 25460- 3890 Jan, Opioid use disorder, severe, in early remission F11.21 [facility] [address] [place] [address] Jan, Opioid use disorder, severe, in sustained remission F11.21 [facility] [address] [place] [address] Jan, Opioid use disorder, severe, in sustained remission F11.21 [place] [id number] [place] [address] 87404- 4714 Jan, Opioid use disorder, severe, in early remission F11.21 [facility] [address] [place] [address] Jan, Opioid use disorder, severe, in sustained remission F11.21 [place] [id number] [place] [address] 28584- 5969 December, Opioid use disorder, severe, in early remission F11.21 [facility] [address] [place] [address] December, Opioid use disorder, severe, in sustained remission F11.21 [place] [id number] [place] [address] 83748- 8141 December, Routine gynecological examination Z01.419 and Chronic kidney disease, stage 3 N18.3 [address] [place] [address] 48442- 7248 December, Chronic kidney disease, stage 3 N18.3 ; 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 ; Gastroparesis K31.84 ; Essential hypertension I10 and Irritable bowel syndrome with constipation K58.[address] [address] December, Opioid use disorder, severe, in sustained remission F11.21 [place] [id number] [place] [address] 62582- 6512 December, Opioid use disorder, severe, in early remission F11.21 [facility] [address] [place] [address] December, Opioid use disorder, severe, in sustained remission F11.21 [facility] [id number] [place] [address] 14768- 0592 December, Encounter for therapeutic drug level monitoring Z51.81 [facility] [address] [place] [address] December, Opioid use disorder, severe, in sustained remission F11.21 [facility] [address] [place] [address] Dec, Opioid use disorder, severe, in sustained remission F11.21 [facility] [address] [place] [id number] [place] [address] 29376- 4335 Dec, Opioid use disorder, severe, 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 [facility] [address] [place] [id number] [place] [address] 22143- 5128 Dec, [facility] [address] [place] [address] Dec, Opioid use disorder, severe, in sustained remission F11.21 [facility] [address] [place] [id number] [place] [address] 32122- 7808 Dec, Opioid use disorder, severe, 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 [facility] [address] [place] [address] Dec, Opioid use disorder, severe, in sustained remission F11.21 [facility] [address] [place] [id number] [place] [address] 68419- 9982 Dec, 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 [facility] [address] [place] [id number] [place] [address] 55517- 0523 Dec, Opioid use disorder, severe, in sustained remission F11.21 ; Encounter for therapeutic drug level monitoring Z51.81 and Other custodial ( current) drug therapy Z79.899 [facility] [address] [place] [address] Oct, Opioid use disorder, severe, in sustained remission F11.21 [facility] [id number] [place] [address] 28716- 0287 Oct, Opioid use disorder, severe, in early remission F11.21 [facility] [id number] [place] [address] 99138- 8309 Oct, [facility] [address] [place] [address] Oct, Opioid use disorder, severe, in sustained remission F11.21 [facility] [id number] [place] [address] 97416- 4594 15 Oct, 2016 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 [facility] [id number] [place] [address] 93431- 9772 14 Oct, 2016 Routine gynecological examination Z01.419 [place] [facility] [address] 53509- 3651 07 Oct, 2016 Opioid use disorder, severe, in early remission F11.21 [facility] [id number] [place] [address] 13127- 6568 Oct, Opioid use disorder, severe, in early remission F11.21 [facility] [id number] [place] [address] 85130- 7899 Oct, Opioid use disorder, severe, in early remission F11.21 [facility] [address] [place] [address] Oct, Opioid use disorder, severe, in sustained remission F11.21 [facility] [id number] [place] [address] 69812- 8501 Oct, Opioid use disorder, severe, in early remission F11.21 [facility] [id number] [place] [address] 95826- 1602 Oct, Opioid use disorder, severe, in early remission F11.21 [facility] [address] [place] [address] Oct, Opioid use disorder, severe, in sustained remission F11.21 [facility] [id number] [place] [address] 07210- 8016 20 Oct, 2016 Opioid use disorder, severe, in sustained remission F11.21 ; Encounter for therapeutic drug level monitoring Z51.81 and Other custodial ( current) drug therapy Z79.899 [facility] [id number] [place] [address] 92096- 6656 16 Oct, 2016 [facility] [address] [place] [address] 14 Oct, 2016 Opioid use disorder, severe, in early remission F11.21 [facility] [address] [place] [address] 10 Oct, 2016 Opioid use disorder, severe, in early remission F11.21 [facility] [id number] [place] [address] 95496- 1556 09 Oct, 2016 Opioid use disorder, severe, in early remission F11.21 [facility] [id number] [place] [address] 55973 2543 08 Oct, 2016 [facility] [id number] [place] [address] 47553- 1668 07 Oct, 2016 [facility] [id number] [place] [address] 76291- 9492 Oct, [facility] [address] [place] [address] Oct, Opioid use disorder, severe, in early remission F11.21 [facility] [id number] [place] [address] 48324 254 Sep, Opioid use disorder, severe, in early remission F11.21 [facility] [address] [place] [address] Sep, Opioid use disorder, severe, in early remission F11.21 [facility] [id number] [place] [address] 80919- 7716 Sep, Opioid use disorder, severe, 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 ; Other intermediate accountant (current) drug therapy Z79.899 and Encounter for therapeutic drug level monitoring Z51.81 [facility] [id number] [place] [address] 16142- 6721 Sep, [facility] [id number] [place] [address] 63304- 9796 Sep, [address] 395137- 5922 Sep, Opioid use disorder, severe, 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 ; 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 ; Chronic kidney disease, stage 3 N18.3 ; Essential hypertension I10 and Irritable bowel syndrome with constipation K58.1 [facility] [address] [place] [address] Sep, Opioid use disorder, severe, in early remission F11.21 [facility] [address] [place] [address] Sep, Opioid use disorder, severe, in early remission F11.21 [facility] [id number] [place] [address] 36626- 7361 Sep, Opioid use disorder, moderate, dependence F11.20 [facility] [id number] [place] [address] 01084- 4103 Sep, Opioid use disorder, moderate, dependence F11.20 [facility] [address] [place] [address] Sep, Opioid use disorder, severe, in early remission F11.21 [facility] [address] [place] [address] [place] [address] 47754- 3060 Sep, Opioid use disorder, severe, in early remission F11.21 [facility] [address] [place] [address] Aug, Opioid use disorder, severe, in early remission F11.21 [facility] [address] [place] [address] [place] [address] 62482- 8495 Aug, Opioid use disorder, moderate, dependence F11.20 [facility] [address] [place] [address] 41766 -4780 Aug, Bug bite without infection, initial encounter W57.XXXA [facility] [id number] [place] [address] 53593- 4222 Aug, Opioid use disorder, moderate, dependence F11.20 [facility] [address] [place] [address] Aug, [facility] [address] 64043- 5223 Aug, Opioid use disorder, severe, 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 ; Other custodial (current) drug therapy Z79.899 ; Encounter for therapeutic drug level monitoring Z51.81 and 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 [facility] [address] [place] [address] Aug, [facility] [address] 67827- 3756 Aug, Opioid use disorder, moderate, dependence F11.20 ; Other custodial (current) drug therapy Z79.899 and Encounter for therapeutic drug level monitoring Z51.81 [facility] [id number] [place] [address] 77888- 0172 Aug, [facility] [id number] [place] [address] 17254- 8270 Aug, Non-intractable vomiting with nausea, unspecified vomiting type R11.2 [facility] [id number] [place] [address] 91558- 5839 Aug, Opioid use disorder, moderate, dependence F11.20 and Non- intractable vomiting with nausea, unspecified vomiting type R11.2 [facility] [id number] [place] [address] 80476- 7437 08 Aug, 2016 [facility] [id number] [place] [address] 40585- 4807 Aug, Opioid use disorder, moderate, dependence F11.20 [facility] [id number] [place] [address] 70819- 2234 Aug, [facility] [address] 38442- 3668 Jul, 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 and Opioid use disorder, moderate, dependence F11.20 [facility] [address] [place] [address] Jul, [facility] [address] 81728- 6442 Jul, [facility] [id number] [place] [address] 25521- 2591 Jul, [facility] [address] 61428- 4608 Jul, Addiction to drug F19.20 and Chronic kidney disease, stage 3 N18.3 [facility] [address] [place] [address] Jul, Counseling on substance use and abuse Z71.89 [facility] [id number] [place] [address] 38129- 6922 Jul, Chronic kidney disease, stage 3 N18.3 [facility] [id number] [place] [address] 66743- 8986 Jul, 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 ; Diarrhea, unspecified type R19.7 and Essential hypertension I10 [facility] [id number] [place] [address] 36650- 7095 Jul, [facility] [id number] [place] [address] 52448- 1784 Jun, [facility] [address] 42926- 1143 Jun, [facility] [id number] [place] [address] 04221- 7749 Apr, 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 [facility] [address] [place] [address]- 1145 Apr, Sore throat and laryngitis J06.0 and Non-intractable vomiting with nausea, unspecified vomiting type R11.2 [facility] [address] [address]- 7391 Apr, [facility] [id number] [place] [address] 60826- 2155 Mar, [facility] [id number] [place] [address] 79847- 0524 Jan, [facility] [id number] [place] [address] 05058- 6405 Jan, [facility] [id number] [place] [address] 98195- 5214 Jan, [facility] [id number] [place] [address] 44579- 1316 December, 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 ; Gastroparesis K31.84 ; Mixed hyperlipidemia E78.2 ; Chronic kidney disease, stage 3 N18.3 ; Dysthymia F34.1 and Acute bilateral low back pain without sciatica M54.5 [facility] [address] [place] [address] 73200- 6259 December, [facility] [id number] [place] [address] 55971- 4991 December, [facility] [id number] [place] [address] 74901- 5228 Aug, Depression F32.9 and Gastroparesis K31.84 [facility] [id number] [place] [address] 73859- 1286 Aug, Gastroparesis K31.84 [facility] [address] [place] [address] 74579- 9290 Jul, Recurrent UTI N39.0 ; Chronic kidney disease, stage 3 N18.3 and 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 [address] [address] Jul, Dysuria R30.0 ; Urinary tract infection N39.0 and Nausea R11.0 [facility] [address] [address] Jun, Dysuria R30.0 [facility] [address] [address] Jun, Dysuria R30.0 [facility] [address] [address] Jun, Dysuria R30.0 [facility] [address] [address] Jun, [facility] [address] [address] Jun, Acute cystitis with hematuria N30.01 [facility] [address] [place] [id number] [place] [phone] May, [facility] [address] [address] Apr, Diabetes mellitus without mention of complication, type I [ juvenile type], not stated as uncontrolled 250.01 ; Gastroparesis due to DM 250.60 ; Contraception management V25.9 and Renal insufficiency 593.9 [facility] [address] [address] Apr, [place] [id number] [address] Apr, [place] [address] [address] [place] [id number] [place] [address]63- 5360 Mar, [place] [id number] [place] [address] 50271- 8744 Mar, Hyperlipidemia 272.4 and Hypertensive heart and chronic kidney disease, benign, without heart failure and with chronic kidney disease stage I through stage IV, or unspecified 404.10 [place] [address] [address] 7[address] Mar, Hyperlipidemia 272.4 ; Hyponatremia 276.1 ; 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 ; Hypertensive heart and chronic kidney disease, benign, without heart failure and with chronic kidney disease stage I through stage IV, or unspecified 404.10 ; Proteinuria 791.0 and Chronic kidney disease (CKD), stage III (moderate) 585.3 [place] [id number] [place] [address] 36238- 3543 Mar, [place] [id number] [place] [address] 15722- 4424 Mar, Elevated blood sugar level 790.29 [id number] [place] [address] 92946- 9089 Mar, Low grade squamous intraepithelial lesion (LGSIL) on cervical Pap smear 795.03 [address] [address] 117[address] Mar, Amenorrhea 626.[address] [place] [address] 84154- 5656 Jan, Amenorrhea 626.0 ; Routine gynecological examination V72.31 and Screen for STD (sexually transmitted disease) V74.5 [address] [place] [address] 69401- 6067 Jan, Amenorrhea 626.0 [place] [id number] [address]88 08 Jan, 2015 Routine gynecological examination V72.31 ; Screen for STD ( sexually transmitted disease) V74.5 ; Pap test, as part of routine gynecological examination V76.2 ; Breast cancer screening V76.10 and Amenorrhea 626.0 [facility] [id number] [address] 8[address] 13 Dec, 2014 [facility] [address], [place] [address] 5624 14 Dec, 2014 [facility] [id number] [address]- 6695 Dec, [facility] [address], [place] [address] 2996 Oct, [facility] [address], [place] [address] 7846 Oct, [facility] [address] [address] [address]687 Oct, [facility] [address], [place] [address] 3978 Oct, [facility] [address] 3688 Oct, [facility] [address], [place] [address]- 3006 Oct, [facility] [id number] [address]- 0949 Oct, [facility] [id number], [place] [address]- 2466 Oct, [facility] [address], [place] [address]- 1486 Oct, [facility] [id number], [place] [address]- 2546 Oct, [facility] [id number] [place] [address]- 0718 Oct, [facility] [address] [id number] [place] [address]- 3586 Sep, [facility] [place] [facility] [address] [id number] [place] [address]- 7446 Sep, [facility] [place] [facility] [address] [id number] [place] [address]- 6677 Sep, [facility] [place] [facility] [address] [id number] [place] [address]- 8819 Sep, [facility] [place] [facility] [address] [id number] [place] [address]- 2256 Sep, [facility] [place] [facility] [address] [id number] [place] [address]- 7227 Sep, [facility] [place] [facility] [address] [id number] [place] [address]- 2195 Sep, [facility] [address] [id number] [place] [address]- 2032 Sep, [facility] [place] [facility] [address] [id number] [place] [address]- 5879 Sep, [facility] [place] [facility] [address] [id number] [place] [address]- 2053 Sep, [facility] [place] [facility] [address] [id number] [place] [address]- 8670 Sep, [facility] [place] [facility] [address] [id number] [place] [address]- 6043 Sep, [facility] [place] [facility] [address] [id number] [place] [address]- 7721 Sep, [facility] [place] [facility] [address] [id number] [place] [address]- 1696 Sep, [facility] [place] [facility] [address] [id number] [place] [address]- 1513 Sep, [facility] [place] [facility] [address] [id number] [place] [address]- 6577 Sep, [facility] [place] [facility] [address] [id number] [place] [address]- 0083 Sep, [facility] [place] [facility] [address] [id number] [place] 1170 Sep, [facility] [place] [facility] [address] [id number] [place] [address]- 7019 Sep, [facility] [place] [facility] [address] [id number] [place] [address]- 3971 Sep, [facility] [place] [facility] [address] [id number] [place] [address]- 6899 Aug, [facility] [place] [facility] [address] [id number] [place] [address]- 7169 Aug, [facility] [place] [facility] [address] [id number] [place] [address]- 0265 Aug, [facility] [place] [facility] [address] [id number] [place] [address]- 4676 Aug, [facility] [place] [facility] [address] [id number] [place] [address]- 6526 Aug, [facility] [place] [facility] [address] [id number] [place] [address]- 1057 Aug, [facility] [place] [facility] [address] [id number], [place] [address]- 8795 Aug, [facility] [place] [facility] [address] [id number] [place] [address]- 8802 Aug, [facility] [place] [facility] [address] [id number] [place] 9077 Aug, [facility] [place] [facility] [address] [id number] [place] 1536 Aug, [facility] [place] [facility] [address] [id number] [place] 5650 Aug, [facility] [place] [facility] [address] [id number] [place] [address]- 2978 Aug, [facility] [place] [facility] [address] [id number] [place] [address]- 0156 Jul, [facility] [place] [facility] [address] [id number] [place] [address]- 5135 Jul, [facility] [place] [facility] [address] [id number] [place] [address]- 1776 Jul, [facility] [place] [facility] [address] [id number] [place] [address]- 2302 Jul, [facility] [place] [facility] [address] [id number] [place] [address]- 6960 Jul, [facility] [place] [facility] [address] [id number] [place] [address]- 6052 Jul, [facility] [place] [facility] [address] [id number] [place] [address]- 4910 Jul, [facility] [place] [facility] [address] [id number] [place] [address]- 6124 Jul, [facility] [place] [facility] [address] [facility] [id number] [place] [address]- 6004 Jul, [facility] [place] [facility] [address] [id number] [place] [address]- 0800 Jul, [facility] [place] [facility] [address] [id number] [place] [address]- 7031 Jun, [facility] [place] [facility] [address] [id number] [place] [address]- 9183 Jun, [facility] [place] [facility] [address] [id number] [place] [address]- 3981 Jun, [facility] [place] [facility] [address] [facility] [id number] [place] [address]- 0437 Jun, [facility] [place] [facility] [address] [id number] [place] [address]- 0362 30 Jun, 2014 [facility] [place] [facility] [address] [id number] [place] [address]- 7920 30 Jun, 2014 [facility] [place] [facility] [address] [id number] [place] [address]- 5486 15 Jun, 2014 [facility] [place] [facility] [address] [id number] [place] [address]- 6556 15 Jun, 2014 [facility] [place] [facility] [address] [id number] [place] [address]- 1254 May, [facility] [place] [facility] [address] [id number] [place] [address]- 6253 22 May, 2014 [facility] [place] [facility] [address] [id number] [place] [address]- 8981 18 May, 2014 [facility] [place] [facility] [address] [id number] [place] [address]- 1327 18 May, 2014 [facility] [place] [facility] [address] [id number] [place] [address]- 5831 09 May, 2014 [facility] [place] [facility] [address] [id number] [place] [address]- 1215 08 May, 2014 [facility] [place] [facility] [address] [id number] [place] [address]- 6392 May, [facility] [place] [facility] [address] [id number] [place] [address]- 4362 May, [facility] [place] [facility] [address] [id number] [place] [address]- 3634 Apr, [facility] [place] [facility] [address] [id number] [place] [address]- 3424 Apr, [facility] [place] [facility] [address] [id number] [place] [address]- 4585 Apr, [facility] [place] [facility] [address] [id number] [place] [address]- 7615 Apr, [facility] [place] [facility] [address] [id number] [place] [address]- 9553 Mar, [facility] [place] [facility] [address] [id number] [place] [address]- 4875 Mar, [facility] [place] [facility] [address] [id number] [place] [address]- 6895 Mar, [facility] [place] [facility] [address] [id number] [place] [address]- 5934 Mar, [facility] [place] [facility] [address] [id number] [place] [address]- 3656 Mar, [facility] [place] [facility] [address] [id number] [place] [address]- 4194 Mar, [facility] [place] [facility] [address] [id number] [place] [address]- 0524 Jan, [facility] [place] [facility] [address] [id number] [place] [address]- 9677 Jan, [facility] [place] [facility] [address] [id number] [place] [address]- 6041 Jan, [facility] [place] [facility] [address] [id number] [place] [address]- 1037 Jan, [facility] [place] [facility] [address] [id number] [place] [address]- 5023 Jan, [facility] [place] [facility] [address] [id number] [place] [address]- 1915 Jan, [facility] [place] [facility] [address] [id number] [place] [address]- 9345 Jan, [facility] [place] [facility] [address] [id number] [place] [address]- 2871 Jan, [facility] [place] [facility] [address] [id number] [place] [address]- 9556 Jan, [facility] [place] [facility] [address] [id number] [place] [address]- 7048 Jan, [facility] [address] [id number] [place] [address]- 8586 Jan, [facility] [address] [id number] [place] [address]- 0736 Jan, [facility] [address] [id number] [place] [address]- 3215 December, [facility] [address] [id number] [place] [address]- 4026 December, [facility] [address] [id number] [place] [address]- 0590 December, [facility] [address] [id number] [place] [address]- 8609 December, [facility] [address] [id number] [place] [address]- 9121 Dec, [facility] [address] [id number] [place] [address]- 3365 Dec, [facility] [place] [facility] [address] [id number] [place] [address]- 8179 Dec, [facility] [address] [id number] [place] [address]- 4700 Dec, [facility] [place] [facility] [address] [id number] [place] [address]- 9581 Dec, [facility] [place] [facility] [address] [id number] [place] [address]- 3406 Dec, [facility] [place] [facility] [address] [id number] [place] [address]- 9402 Dec, [facility] [place] [facility] [address] [id number] [place] [address]- 7100 Dec, [facility] [place] [facility] [address] [id number] [place] [address]- 8134 Dec, [facility] [place] [facility] [address] [id number] [place] [address]- 4388 Dec, [facility] [place] [facility] [address] [id number] [place] [address]- 0578 Dec, [facility] [place] [facility] [address] [id number] [place] [address]- 0695 Dec, [facility] [place] [facility] [address] [id number] [place] [address]- 0225 Dec, [facility] [place] [facility] [address] [id number] [place] [address]- 0103 Dec, [facility] [place] [facility] [address] [id number] [place] [address]- 0549 Oct, [facility] [place] [facility] [address] [id number] [place] [address]- 6460 Oct, [facility] [place] [facility] [address] [id number] [place] [address]- 4813 Oct, [facility] [place] [facility] [address] [id number] [place] [address]- 2107 Oct, [facility] [place] [facility] [address] [id number] [place] [address]- 9479 Oct, [facility] [place] [facility] [address] [id number] [place] [address]- 8568 Oct, [facility] [place] [facility] [address] [id number] [place] [id number] Oct, [facility] [place] [facility] [address] [id number] [place] [address]- 2856 Oct, [facility] [place] [facility] [address] [id number] [place] [address]- 4200 Oct, [facility] [place] [facility] [address] [id number] [place] [address]- 0704 Oct, [facility] [place] [facility] [address] [id number], [place] [address]- 5368 Sep, [facility] [id number], [place] [address]- 0583 Sep, [facility] [id number] 7388 Sep, [facility] [address], [place] [address]- 3287 Sep, [facility] [address] 9557 Sep, [facility] [address], [place] [address]- 3506 Sep, [facility] [address], [place] [address]- 7510 Aug, [facility] [address], [place] [address]- 0170 Aug, [facility] [address], [place] [address]- 3209 Jul, [facility] [address], [place] [address]- 1746 Jul, [facility] [address], [place] [address]- 5075 Jul, [facility] [id number], [place] [address]- 5090 Jul, [facility] [id number], [place] [address]- 4060 Jul, IMMUNIZATIONS No Known Immunizations SOCIAL HISTORY [...]
--- OUTSIDE RECORDS SUMMARY | 2018-08-30 20:58 | XMS REPORT ---
Author WOJCIECH Herrera [facility] [employer] Address Unknown Phone Unavailable Care Team Providers Care Veterinarian Poultry Name Role Phone WOJCIECH ARNETT CP Unavailable [...] System Code Date THER/PROPH/DIAG INJ, SC/IM CPT-4 05144 Jun 30, 2015 ROCEPHIN 1 GM (IM) CPT-4 J0696 Jun 30, 2015 Results No Known Results Summary Purpose [employer] Submission
--- OUTSIDE RECORDS SUMMARY | 2018-08-30 20:58 | XMS REPORT ---
Author Author YANNICK JOSUE Organization [employer] Address Unknown Phone Unavailable Care Team Providers Care Film Composer Name Role Phone YANNICK JOSUE CP Unavailable [...] Active Problem Recurrent UTI N39.0 Active Medications No Known Medications Results No Known Results Summary Purpose [employer]Clinical[employer] Submission
--- OUTSIDE RECORDS SUMMARY | 2018-08-30 20:58 | XMS REPORT ---
Author Author YANNICK JOSUE Organization [employer] Address Unknown Phone Unavailable Care Team Providers Care Wheelchair Rental Clerk Name Role Phone YANNICK JOSUE CP Unavailable [...] examination of defined subpopulation V70.5 Active Problem Gastroparesis due to DM 250.60 Active Problem Unspecified essential hypertension 401.9 Active Problem Dysuria R30.0 Active Problem Screening for hypertension V81.1 Active Problem Unspecified renal failure 586 Active Problem Abdominal pain, epigastric 789.06 Active Problem Urinary frequency 788.41 Active Medications Medication Code System Code Instructions Start Date End Date Status Dosage Humalog [facility] [id number] 100 UNIT/ML Subcutaneous pump as per pump inject Units by Subcutaneous route every hour per insulin pump Results No Known Results Summary Purpose eClinicalWorks Submission
--- OUTSIDE RECORDS SUMMARY | 2018-08-30 20:59 | XMS REPORT ---
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 Active 57273758 Problem Chronic kidney disease, stage 3 N18.3 Active 126359666 Problem CHI I (cervical intraepithelial neoplasia I) N87.0 Active 879759602 Problem Mild episode of recurrent major depressive disorder F33.0 Active 029596775 Problem Addiction to drug F19.20 Active 715699925 Problem Essential hypertension I10 Active 84371143 Problem Opioid use disorder, severe, in sustained remission F11.21 Active 45680884 Problem Irritable bowel syndrome with constipation K58.1 Active 933837349 ALLERGIES No Information ENCOUNTERS Encounter Location Date Diagnosis [facility] [address] [place] [address] December, [facility] [id number] [place] [address] 37437- 9094 December, Opioid use disorder, severe, in sustained remission F11.21 and 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 [facility] [id number] [place] [address] 45951- 8398 December, Opioid use disorder, severe, in early remission F11.21 [facility] [address] [place] [address] Dec, Opioid use disorder, severe, in sustained remission F11.21 [facility] [id number] [place] [address] 40428- 4149 Dec, 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 ; Unprotected sexual intercourse Z72.51 ; Pain of left thumb M79.645 ; Mixed hyperlipidemia E78.2 ; Gastroparesis K31.84 ; Essential hypertension I10 and Irritable bowel syndrome with constipation K58.1 [facility] [id number] [place] [address] 42928- 5000 Dec, Opioid use disorder, severe, in early remission F11.21 [facility] [id number] [place] [address] 90839- 6818 Oct, [facility] [address] 18231- 0705 Oct, Opioid use disorder, severe, in early remission F11.21 [facility] [id number] [place] [address] 48075- 6297 Oct, [facility] [id number] [place] [address] 70644- 9067 Oct, Opioid use disorder, severe, in early remission F11.21 [facility] [id number] [place] [address] 20802- 8438 Oct, [facility] [id number] [place] [address] 00840- 6762 Oct, [facility] [address] [place] [address] Oct, Opioid use disorder, severe, in sustained remission F11.21 [facility] [id number] [place] [address] 61142- 8562 Sep, [facility] [address] 95880- 2754 Sep, [facility] [id number] [place] [address] 70318- 7604 Sep, Opioid use disorder, severe, in early remission F11.21 [facility] [address] [address] Aug, Opioid use disorder, severe, in early remission F11.21 [facility] [id number] [place] [address] 17927- 4697 Jul, [facility] [id number] [place] [address] 55669- 8631 Jul, Chronic kidney disease, stage 3 N18.3 ; Dysthymia F34.1 and Opioid use disorder, severe, in sustained remission F11.21 [facility] [address] [place] [address] Jul, Opioid use disorder, severe, in sustained remission F11.21 [facility] [id number] [place] [address] 33392- 9077 Jul, Long-term use of high-risk medication Z79.899 and Chronic kidney disease, stage 3 N18.3 [place] [id number] [place] [address] 41406- 7662 Jul, Opioid use disorder, severe, in early remission F11.21 [facility] [id number] [place] [address] 30911- 1962 Jul, [facility] [id number] [place] [address] 16839- 9324 Jun, [facility] [id number] [place] [address] 48202- 0079 Jun, [facility] [id number] [place] [address] 68242- 4553 Jun, Opioid use disorder, moderate, dependence F11.20 and Opioid use disorder, severe, in early remission F11.21 [facility] [id number] [place] [address] 74480- 0849 Jun, [facility] [id number] [place] [address] 71031- 8464 Jun, Long-term use of high-risk medication Z79.899 [facility] [id number] [place] [address] 17667- 3403 04 Jun, 2017 CHI I (cervical intraepithelial neoplasia I) N87.0 [facility] [id number] [place] [address] 02061- 4258 May, Opioid use disorder, severe, in early remission F11.21 [facility] [address] 75542- 2560 18 May, 2017 Chronic kidney disease, stage 3 N18.3 [place] [address] 13828- 2949 14 May, 2017 Chronic kidney disease, stage 3 N18.3 [facility] [address] [place] [address] 05 May, 2017 Opioid use disorder, severe, in sustained remission F11.21 [place] [address] 91962- 6215 Apr, LGSIL on Pap smear of cervix R87.612 [facility] [address] [place] [address] Apr, [place] [address] 46116- 1552 Apr, Opioid use disorder, severe, in early remission F11.21 [place] [facility] [id number] [place] [address] 23716- 5055 Apr, Opioid use disorder, severe, in early remission F11.21 [facility] [id number] [place] [address] 71528- 5917 Apr, Opioid use disorder, severe, in early remission F11.21 [place] [facility] [id number] [place] [address] 86702- 4048 Apr, Opioid use disorder, severe, in early remission F11.21 [facility] [id number] [place] [address] 13722- 8799 Apr, 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 [facility] [address] [address] 6952 10 Apr, 2017 Opioid use disorder, severe, in early remission F11.21 [facility] [address] [place] [address] 10 Apr, 2017 Opioid use disorder, severe, in sustained remission F11.21 [facility] [id number] [place] [address] 79466- 8566 Apr, Opioid use disorder, severe, in early remission F11.21 [facility] [id number] [place] [address] 68786- 4670 Apr, Mild episode of recurrent major depressive disorder F33.0 and Right acute serous otitis media, recurrence not specified H65.01 [facility] [id number] [place] [address] 08709- 4810 Mar, [facility] [id number] [place] [address] 12548- 9785 Mar, Opioid use disorder, severe, in early remission F11.21 [facility] [id number] [place] [address] 41995- 4634 Mar, [facility] [address] [place] [address] Mar, Opioid use disorder, severe, in sustained remission F11.21 [facility] [address] [place] [address] Mar, Opioid use disorder, severe, in sustained remission F11.21 [facility] [address] [place] [address] 11394- 4508 Mar, Opioid use disorder, severe, in early remission F11.21 [facility] [id number] [place] [address] 55864- 3235 Jan, Opioid use disorder, severe, in early remission F11.21 [facility] [address] [place] [address] Jan, Opioid use disorder, severe, in sustained remission F11.21 [facility] [address] [place] [address] Jan, Opioid use disorder, severe, in sustained remission F11.21 [facility] [address] [place] [id number] [place] [address] 10160- 9886 Jan, Opioid use disorder, severe, in early remission F11.21 [facility] [address] [place] [address] Jan, Opioid use disorder, severe, in sustained remission F11.21 [place] [id number] [place] [address] 90862- 6161 December, Opioid use disorder, severe, in early remission F11.21 [facility] [address] [place] [address] December, Opioid use disorder, severe, in sustained remission F11.21 [place] [id number] [place] [address] 16856- 4168 December, Routine gynecological examination Z01.419 and Chronic kidney disease, stage 3 N18.3 [place] [id number] [place] [address] 25975- 3745 December, Chronic kidney disease, stage 3 N18.3 ; 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 ; Gastroparesis K31.84 ; Essential hypertension I10 and Irritable bowel syndrome with constipation K58.1 [facility] [address] [place] [address] December, Opioid use disorder, severe, in sustained remission F11.21 [place] [id number] [place] [address] 83696- 6570 December, Opioid use disorder, severe, in early remission F11.21 [facility] [address] [place] [address] December, Opioid use disorder, severe, in sustained remission F11.21 [place] [id number] [place] [address] 44815- 0199 December, Encounter for therapeutic drug level monitoring Z51.81 [facility] [address] [place] [address] December, Opioid use disorder, severe, in sustained remission F11.21 [facility] [address] [place] [address] Dec, Opioid use disorder, severe, in sustained remission F11.21 [facility] [id number] [place] [address] 04898- 0021 Dec, Opioid use disorder, severe, in early remission F11.21 [facility] [id number] [place] [address] 76796- 1060 Dec, [facility] [address] [place] [address] Dec, Opioid use disorder, severe, in sustained remission F11.21 [facility] [address] 89628- 4436 Dec, Opioid use disorder, severe, in early remission F11.21 [facility] [address] [place] [address] Dec, Opioid use disorder, severe, in sustained remission F11.21 [facility] [id number] [place] [address] 34534- 9950 Dec, 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 [facility] [address] [place] [id number] [place] [address] 55961- 4250 Dec, Opioid use disorder, severe, in sustained remission F11.21 ; Encounter for therapeutic drug level monitoring Z51.81 and Other penitentiary ( current) drug therapy Z79.899 [facility] [address] [place] [address] Oct, Opioid use disorder, severe, in sustained remission F11.21 [facility] [id number] [place] [address] 16722- 8182 Oct, Opioid use disorder, severe, in early remission F11.21 [facility] [id number] [place] [address] 49594- 3827 Oct, [facility] [address] [place] [address] Oct, Opioid use disorder, severe, in sustained remission F11.21 [facility] [address] [place] [address] 37303- 4367 15 Oct, 2016 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 [facility] [id number] [place] [address] 81488- 7593 14 Oct, 2016 Routine gynecological examination Z01.419 [place] [id number] [place] [address] 19068- 8725 07 Oct, 2016 Opioid use disorder, severe, in early remission F11.21 [place] [id number] [place] [address] 44700- 3064 06 Oct, 2016 Opioid use disorder, severe, in early remission F11.21 [place] [id number] [place] [address] 08274- 6950 06 Oct, 2016 Opioid use disorder, severe, in early remission F11.21 [facility] [address] [place] [address] Oct, Opioid use disorder, severe, in sustained remission F11.21 [place] [id number] [place] [address] 70011- 6582 24 Oct, 2016 Opioid use disorder, severe, in early remission F11.21 [place] [id number] [place] [address] 36184- 9398 Oct, Opioid use disorder, severe, in early remission F11.21 [facility] [address] [place] [address] Oct, Opioid use disorder, severe, in sustained remission F11.21 [place] [id number] [place] [address] 08642- 4174 Oct, Opioid use disorder, severe, in sustained remission F11.21 ; Encounter for therapeutic drug level monitoring Z51.81 and Other penitentiary ( current) drug therapy Z79.899 [place] [id number] [place] [address] 38446- 4548 16 Oct, 2016 [facility] [address] [place] [address] 14 Oct, 2016 Opioid use disorder, severe, in early remission F11.21 [facility] [address] [place] [address] 10 Oct, 2016 Opioid use disorder, severe, in early remission F11.21 [facility] [id number] [place] [address] 61204- 5060 09 Oct, 2016 Opioid use disorder, severe, in early remission F11.21 [facility] [id number] [place] [address] 20931- 4046 08 Oct, 2016 [facility] [address] 18346- 8582 Oct, [facility] [id number] [place] [address] 06593- 4091 Oct, [facility] [address] [place] [address] Oct, Opioid use disorder, severe, in early remission F11.21 [facility] [id number] [place] [address] 65402- 1980 Sep, Opioid use disorder, severe, in early remission F11.21 [facility] [address] [place] [address] Sep, Opioid use disorder, severe, in early remission F11.21 [facility] [id number] [place] [address] 58122- 3275 Sep, Opioid use disorder, severe, in early remission F11.21 ; Other intermediate frame tender (current) drug therapy Z79.899 and Encounter for therapeutic drug level monitoring Z51.81 [facility] [id number] [place] [address] 49028- 9151 Sep, [facility] [id number] [place] [address] 64441- 7603 Sep, [facility] [id number] [place] [address] 96400- 6851 Sep, Opioid use disorder, severe, 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 ; 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 ; Chronic kidney disease, stage 3 N18.3 ; Essential hypertension I10 and Irritable bowel syndrome with constipation K58.1 [facility] [address] [place] [address] 17 Sep, 2016 Opioid use disorder, severe, in early remission F11.21 [facility] [address] [place] [address] Sep, Opioid use disorder, severe, in early remission F11.[address] 10076- 2247 Sep, Opioid use disorder, moderate, dependence F11.[address] 07775- 5270 Sep, Opioid use disorder, moderate, dependence F11.20 [facility] [address] [place] [address] Sep, Opioid use disorder, severe, in early remission F11.[address] 26608- 6622 Sep, Opioid use disorder, severe, in early remission F11.21 [facility] [address] [place] [address] Aug, Opioid use disorder, severe, in early remission F11.21 [facility] [address] [place] [address] 95699- 9377 Aug, Opioid use disorder, moderate, dependence F11.20 [facility] [address] [place] [address] 88504 -9840 Aug, Bug bite without infection, initial encounter W57.XXXA [address] 37980- 7961 Aug, Opioid use disorder, moderate, dependence F11.20 [facility] [address] [place] [address] Aug, [facility] [address] [place] [address] Aug, Opioid use disorder, severe, in early remission F11.21 ; Other intermediate frame tender (current) drug therapy Z79.899 ; Encounter for therapeutic drug level monitoring Z51.81 and 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 [facility] [address] [place] [address] 15 Aug, 2016 [facility] [id number] [place] [address] 914590- 3960 Aug, Opioid use disorder, moderate, dependence F11.20 ; Other penitentiary (current) drug therapy Z79.899 and Encounter for therapeutic drug level monitoring Z51.81 [facility] [id number] [place] [address] 72792- 8679 Aug, [facility] [id number] [place] [address] 30054- 0756 Aug, Non-intractable vomiting with nausea, unspecified vomiting type R11.2 [facility] [id number] [place] [address] 90533- 8739 Aug, Opioid use disorder, moderate, dependence F11.20 and Non- intractable vomiting with nausea, unspecified vomiting type R11.2 [facility] [id number] [place] [address] 65743- 9082 Aug, [facility] [id number] [place] [address] 89497- 5402 Aug, Opioid use disorder, moderate, dependence F11.20 [facility] [id number] [place] [address] 75407- 8384 Aug, [facility] [id number] [place] [address] 54295- 6521 Jul, 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 and Opioid use disorder, moderate, dependence F11.20 [facility] [address] [place] [address] Jul, [facility] [address] 65341- 2989 Jul, [facility] [id number] [place] [address] 95732- 2766 Jul, [facility] [id number] [place] [address] 88082- 2680 Jul, Addiction to drug F19.20 and Chronic kidney disease, stage 3 N18.3 [facility] [address] [place] [address] Jul, Counseling on substance use and abuse Z71.89 [facility] [id number] [place] [address] 26662- 0844 Jul, Chronic kidney disease, stage 3 N18.3 [place] [id number] [place] [address] 87553- 1258 Jul, 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 ; Diarrhea, unspecified type R19.7 and Essential hypertension I10 [place] [address] 06429- 3249 Jul, [facility] [id number] [place] [address] 77468- 9986 Jun, [place] [id number] [place] [address] 11829- 0438 Jun, [facility] [id number] [place] [address] 63719- 4090 Apr, 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 [facility] [id number] [place] [address] 28461- 3827 Apr, Sore throat and laryngitis J06.0 and Non-intractable vomiting with nausea, unspecified vomiting type R11.2 [facility] [id number] [place] [address] 43733- 2837 Apr, [facility] [id number] [place] [address] 97750- 8633 Mar, [facility] [address] [address] 7821 15 Feb, 2016 [facility] [id number] [place] [address] 73251- 7120 Jan, [facility] [id number] [place] [address] 88327- 5220 08 Feb, 2016 [facility] [id number] [place] [address] 46373- 2548 December, 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 ; Gastroparesis K31.84 ; Mixed hyperlipidemia E78.2 ; Chronic kidney disease, stage 3 N18.3 ; Dysthymia F34.1 and Acute bilateral low back pain without sciatica M54.5 [facility] [id number] [place] [address] 07071- 6833 December, [facility] [id number] [place] [address] 70229- 7255 December, [facility] [id number] [place] [address] 55306- 5562 Aug, Depression F32.9 and Gastroparesis K31.84 [facility] [id number] [place] [address] 05200- 3143 Aug, Gastroparesis K31.84 [facility] [address] [address]- 4875 Jul, Recurrent UTI N39.0 ; Chronic kidney disease, stage 3 N18.3 and 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 [facility] [address] [address]- 3318 Jul, [facility] [id number] [place] [address] [id number] Jul, Dental examination Z01.20 and Dental caries K02.9 [facility] [id number] [place] [address] 27366- 2024 Jul, [facility] [id number] [address] Jul, Dysuria R30.0 ; Urinary tract infection N39.0 and Nausea R11.0 [facility] [id number] [place] [address] Jun, Dysuria R30.0 [facility] [id number] [place] [address] Jun, Dysuria R30.0 [facility] [id number] [place] [address] Jun, Dysuria R30.0 [facility] [id number] [place] [address] Jun, [facility] [id number] [place] [address]- [address]85 Jun, Acute cystitis with hematuria N30.01 [facility] [id number] [place] [address] May, [facility] [address] [id number] [place] [address] 37444- 4540 Apr, Diabetes mellitus without mention of complication, type I [ juvenile type], not stated as uncontrolled 250.01 ; Gastroparesis due to DM 250.60 ; Contraception management V25.9 and Renal insufficiency 593.9 [facility] [id number] [place] [address] 82627- 6954 Apr, [facility] [id number] [place] [address] 78062- 0471 Apr, [facility] [address] [id number] [place] [address] 95044- 8880 Mar, [facility] [id number] [place] [address] 93979- 9746 Mar, Hyperlipidemia 272.4 and Hypertensive heart and chronic kidney disease, benign, without heart failure and with chronic kidney disease stage I through stage IV, or unspecified 404.10 [place] [id number] [place] [address] 89098- 1453 Mar, Hyperlipidemia 272.4 ; Hyponatremia 276.1 ; 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 ; Hypertensive heart and chronic kidney disease, benign, without heart failure and with chronic kidney disease stage I through stage IV, or unspecified 404.10 ; Proteinuria 791.0 and Chronic kidney disease (CKD), stage III (moderate) 585.3 [place] [id number] [place] [address] 99069- 9046 Mar, [address] 8[address]56- 4496 Mar, Elevated blood sugar level 790.29 [place] [id number] [place] [address] 94141- 1756 Mar, Low grade squamous intraepithelial lesion (LGSIL) on cervical Pap smear 795.03 [place] [id number] [place] [address] 48710- 6888 Mar, Amenorrhea 626.0 [place] [id number] [place] [address] 68734- 6008 Jan, Amenorrhea 626.0 ; Routine gynecological examination V72.31 and Screen for STD (sexually transmitted disease) V74.5 [place] [id number] [place] [address] 94663- 9366 Jan, Amenorrhea 626.0 [place] [id number] [place] [address] 71753- 8256 Jan, Routine gynecological examination V72.31 ; Screen for STD ( sexually transmitted disease) V74.5 ; Pap test, as part of routine gynecological examination V76.2 ; Breast cancer screening V76.10 and Amenorrhea 626.0 [place] [id number] [place] [address] 86391- 5557 December, [place] [address] 0[address]35- 6586 14 Dec, 2014 [facility] [place] [facility] [address] [id number] [place] [address]- 2456 Dec, [facility] [place] [facility] [address] [id number] [place] [address]- 2740 30 Oct, 2014 [facility] [place] [facility] [address] [id number] [place] [address]- 6539 Oct, [facility] [place] [facility] [address] [id number] [place] [address]- 9411 Oct, [facility] [place] [facility] [address] [id number] [place] [address]- 3227 Oct, [facility] [place] [facility] [address] [id number] [place] [address]- 9438 Oct, [facility] [place] [facility] [address] [id number] [place] [address]- 9622 Oct, [facility] [place] [facility] [address] [id number] [place] [address]- 4241 Oct, [facility] [place] [facility] [address] [id number] [place] [address]- 1745 Oct, [facility] [place] [facility] [address] [id number] [place] [address]- 5072 Oct, [facility] [place] [facility] [address] [id number] [address] 3190 Oct, [facility] [place] [facility] [address] [id number] [place] [address]- 3454 Oct, [facility] [place] [facility] [address] [id number] [place] [address]- 3894 Sep, [facility] [place] [facility] [address] [id number] [place] [address]- 5021 Sep, [facility] [place] [facility] [address] [id number] [address]- 4938 Sep, [facility] [place] [facility] [address] [id number] [place] [address]- 8132 16 Sep, 2014 [facility] [place] [facility] [address] [id number] [place] [address]- 8205 Sep, [facility] [place] [facility] [address] [id number] [place] [address]- 0630 Sep, [facility] [place] [facility] [address] [id number] [place] [address]- 7286 15 Sep, 2014 [facility] [place] [facility] [address] [id number] [place] [address]- 3407 15 Sep, 2014 [facility] [place] [facility] [address] [id number] [place] [address]- 4441 Sep, [facility] [place] [facility] [address] [id number] [place] [address]- 8995 Sep, [facility] [place] [facility] [address] [id number] [place] [address]- 4447 Sep, [facility] [place] [facility] [address] [id number] [place] [address]- 8099 Sep, [facility] [place] [facility] [address] [id number] [place] [address]- 1284 Sep, [facility] [place] [facility] [address] [id number] [place] [address]- 5450 Sep, [facility] [place] [facility] [address] [id number] [place] [address]- 2074 Sep, [facility] [place] [facility] [address] [id number] [place] [address]- 4391 Sep, [facility] [place] [facility] [address] [id number] [place] [address]- 1596 Sep, [facility] [place] [facility] [address] [id number] [place] [address]- 0506 Sep, [facility] [place] [facility] [address] [id number] [place] [address]- 3447 Sep, [facility] [place] [facility] [address] [id number] [place] 3145 Sep, [facility] [place] [facility] [address] [id number] [place] [address]- 4745 Aug, [facility] [place] [facility] [address] [id number] [place] [address]- 8255 Aug, [facility] [place] [facility] [address] [id number] [place] [address]- 5516 Aug, [facility] [place] [facility] [address] [id number] [place] [address]- 7939 Aug, [facility] [place] [facility] [address] [id number] [place] [address]- 6699 Aug, [facility] [place] [facility] [address] [id number] [place] [address]- 6907 Aug, [facility] [place] [facility] [address] [id number] [place] [address]- 3790 Aug, [facility] [place] [facility] [address] [id number] [place] [address]- 0198 Aug, [facility] [place] [facility] [address] [id number] [place] [address]- 1127 Aug, [facility] [place] [facility] [address] [id number] [place] [address]- 6696 Aug, [facility] [place] [facility] [address] [id number] [place] [address]- 0101 Aug, [facility] [place] [facility] [address] [id number] [place] [address]- 6091 Aug, [facility] [place] [facility] [address] [id number] [place] [address]- 0207 Jul, [facility] [place] [facility] [address] [id number] [place] [address]- 6346 Jul, [facility] [place] [facility] [address] [id number] [place] [address]- 3153 18 Jul, 2014 [facility] [place] [facility] [address] [id number] [place] [address]- 8636 18 Jul, 2014 [facility] [place] [facility] [address] [id number] [place] [address]- 1079 Jul, [facility] [place] [facility] [address] [id number] [place] [address]- 2600 Jul, [facility] [place] [facility] [address] [id number] [place] [address]- 0779 Jul, [facility] [place] [facility] [address] [id number] [place] [address]- 2501 Jul, [facility] [place] [facility] [address] [id number] [place] [address]- 9704 Jul, [facility] [place] [facility] [address] [id number] [place] [address]- 9956 Jul, [facility] [place] [facility] [address] [id number] [place] [address]- 2126 31 Jun, 2014 [facility] [place] [facility] [address] [id number] [place] [address]- 3864 31 Jun, 2014 [facility] [place] [facility] [address] [id number] [place] [address]- 7013 30 Jun, 2014 [facility] [place] [facility] [address] [id number] [place] [address]- 0015 30 Jun, 2014 [facility] [place] [facility] [address] [id number] [place] [address]- 9909 30 Jun, 2014 [facility] [place] [facility] [address] [id number] [place] [address]- 0922 30 Jun, 2014 [facility] [place] [facility] [address] [id number] [place] [address]- 2422 15 Jun, 2014 [facility] [place] [facility] [address] [id number] [place] [address]- 8798 15 Jun, 2014 [facility] [place] [facility] [address] [id number] [place] [address]- 8350 May, 2013 [facility] [place] [facility] [address] [id number] [place] [address]- 5238 May, [facility] [place] [facility] [address] [id number] [place] [address]- 4016 May, [facility] [place] [facility] [address] [id number] [place] [address]- 2566 May, [facility] [place] [facility] [address] [id number] [place] [address]- 7070 May, [facility] [place] [facility] [address] [id number] [place] [address]- 5083 May, [facility] [place] [facility] [address] [id number] [place] [address]- 5550 May, [facility] [place] [facility] [address] [id number] [place] [address]- 9564 May, [facility] [place] [facility] [address] [id number] [place] [address]- 4590 Apr, [facility] [place] [facility] [address] [id number] [place] [address]- 6857 Apr, [facility] [place] [facility] [address] [id number] [place] [address]- 2878 Apr, [facility] [place] [facility] [address] [id number] [place] [address]- 8360 Apr, [facility] [place] [facility] [address] [id number] [place] [address]- 5820 Mar, [facility] [place] [facility] [address] [id number] [place] [address]- 4330 Mar, [facility] [place] [facility] [address] [id number] [place] [address]- 7758 Mar, [facility] [place] [facility] [address] [id number] [place] [address]- 1460 Mar, [facility] [place] [facility] [address] [id number] [place] [address]- 1725 Mar, [facility] [place] [facility] [address] [id number] [place] [address]- 0629 Mar, [facility] [place] [facility] [address] [id number] [place] [address]- 0715 Jan, [facility] [place] [facility] [address] [id number] [place] [address]- 8729 Jan, [facility] [place] [facility] [address] [id number] [place] [address]- 7329 Jan, [facility] [place] [facility] [address] [id number] [place] [address]- 3030 Jan, [facility] [place] [facility] [address] [id number] [place] [address]- 2258 Jan, [facility] [place] [facility] [address] [id number] [place] [address]- 8013 Jan, [facility] [place] [facility] [address] [id number] [place] [address]- 7318 Jan, [facility] [place] [facility] [address] [id number] [place] [address]- 9422 Jan, [facility] [place] [facility] [address] [id number] [place] [address]- 9715 Jan, [facility] [place] [facility] [address] [id number] [place] [address]- 5403 Jan, [facility] [place] [facility] [address] [id number] [place] [address]- 9421 Jan, [facility] [place] [facility] [address] [id number] [place] [address]- 2196 Jan, [facility] [place] [facility] [address] [id number] [place] [address]- 0357 December, [facility] [place] [facility] [address] [id number] [place] [address]- 0757 December, [facility] [address] [id number] [place] [address]- 9657 December, [facility] [address] [id number] [place] [address]- 7732 December, [facility] [address] [id number] [place] [address]- 3716 Dec, [facility] [address] [id number] [place] [address]- 7884 Dec, [facility] [address] [id number] [place] [address]- 5326 Dec, [facility] [address] [id number] [place] [address]- 3743 Dec, [facility] [address] [id number] [place] [address]- 1682 Dec, [facility] [address] [id number] [place] [address]- 7020 Dec, [facility] [address] [id number] [place] [address]- 9188 Dec, [facility] [address] [id number] [place] [address]- 8765 Dec, [facility] [place] [facility] [address] [id number] [place] [address]- 4336 Dec, [facility] [address] [id number] [place] [address]- 7264 Dec, [facility] [place] [facility] [address] [id number] [place] [address]- 2531 Dec, [facility] [place] [facility] [address] [id number] [place] [address]- 3304 Dec, [facility] [place] [facility] [address] [id number] [place] [address]- 9308 Dec, [facility] [place] [facility] [address] [id number] [place] [address]- 2626 Dec, [facility] [place] [facility] [address] [id number] [place] [address]- 2536 Oct, [facility] [place] [facility] [address] [id number] [place] [address]- 5366 Oct, [facility] [place] [facility] [address] [id number] [place] [address]- 6046 Oct, [facility] [place] [facility] [address] [id number] [place] [address]- 4741 Oct, [facility] [place] [facility] [address] [id number] [place] [address]- 3016 Oct, [facility] [place] [facility] [address] [id number] [place] [address]- 6625 Oct, [facility] [place] [facility] [address] [facility] [id number] [place] [address] Oct, [facility] [place] [facility] [address] [id number] [place] [address]- 4790 Oct, [facility] [place] [facility] [address] [id number] [place] [address]- 4384 Oct, [facility] [place] [facility] [address] [id number] [place] [address]- 8912 Oct, [facility] [place] [facility] [address] [id number] [place] Sep, [facility] [place] [facility] [address] [id number] [place] [address]- 7132 Sep, [facility] [place] [facility] [address] [id number] [place] [address]- 9206 Sep, [facility] [place] [facility] [address] [id number] [place] [address]- 6614 Sep, [facility] [place] [facility] [address] [id number] [place] [address]- 0133 Sep, [facility] [address] [id number] [address]225 Sep, [facility] [id number] [address]- 4182 Aug, [facility] [address] [id number] 6509 Aug, [facility] [address] [address] 1969 Jul, [facility] [address] [id number] 7536 Jul, [facility] [address] [address]- 4686 Jul, [facility] [address] [id number] 4548 Jul, [facility] [address] [id number] [address]- 9210 Jul, IMMUNIZATIONS No Known Immunizations SOCIAL HISTORY Never Assessed REASON FOR VISIT Controlled Refill Request PLAN OF CARE VITAL SIGNS MEDICATIONS Unknown [...]
--- OUTSIDE RECORDS SUMMARY | 2018-08-30 21:00 | XMS REPORT ---
Author Author NOEMY MORGAN Organization [facility] Address [address] [place] [address] Care Team Providers Care User Experience Lead Name Role Phone CATHY NOEMY Unavailable PROBLEMS Type Condition ICD9-CM Code KFO70-PL Code Onset Dates Condition Status SNOMED Code Problem Essential hypertension I10 Active 50933916 Problem Addiction to drug F19.20 Active 912402004 Problem Diarrhea, unspecified type R19.7 Active 41119123 Problem Right acute serous otitis media, recurrence not specified H65.01 Active 189749898 Problem Mild episode of recurrent major depressive disorder F33.0 Active 978429386 Problem Encounter for therapeutic drug level monitoring Z51.81 Active 949868608 Problem [facility] therapy Z79.899 Active 006655718 Problem Opioid use disorder, severe, in sustained remission F11.21 Active 41652626 Problem Irritable bowel syndrome with constipation K58.1 Active 394086776 Problem Recurrent UTI N39.0 Active 423079477 Problem Gastroparesis K31.84 Active 896326861 Problem Acute bilateral low back pain without sciatica M54.5 Active 669074141 Problem Chronic kidney disease, stage 3 N18.3 Active 337060297 Problem Dysthymia F34.1 Active 57535741 Problem 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 Active 69808193 Problem Mixed hyperlipidemia E78.2 Active 361543977 ALLERGIES No Known Allergies SOCIAL HISTORY No smoking Hx information available PLAN OF CARE VITAL SIGNS Weight 177 lbs 2016-08-08 Temperature 98.4 degrees Fahrenheit 2016-08-08 Heart Rate 112 bpm 2016-08-08 Respiratory Rate 18 2016-08-08 Blood pressure systolic 146 mmHg 2016-08-08 Blood pressure diastolic 98 mmHg 2016-08-08 MEDICATIONS No Known Medications RESULTS Name Result Date Reference Range URINE DRUG SCREEN (IN HOUSE) 2016-08-08 Lot # [id number] Exp date 03/2018 Control + COCAINE neg AMPH neg MTD neg THC neg OPIATE neg BENZO neg PCP neg BAR neg OXY + MAMP neg TCA n/a BUP neg MDMA neg ETOH SALIVA 2016-08-08 Lot [id number] Exp. 10/2016 Result neg PROCEDURES Procedure Date Ordered Related Diagnosis Body Site DRUG SCREEN NON TLC DEVICES Aug 08, 2016 Office Visit, Est Pt., Level 3 Aug 08, 2016 IMMUNIZATIONS No Known Immunizations
--- OUTSIDE RECORDS SUMMARY | 2018-08-30 21:00 | XMS REPORT ---
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 Active 07640550 Problem Chronic kidney disease, stage 3 N18.3 Active 633644571 Problem CHI I (cervical intraepithelial neoplasia I) N87.0 Active 502591691 Problem Mild episode of recurrent major depressive disorder F33.0 Active 472617075 Problem Addiction to drug F19.20 Active 014846583 Problem Essential hypertension I10 Active 22160365 Problem Opioid use disorder, severe, in sustained remission F11.21 Active 22498762 Problem Irritable bowel syndrome with constipation K58.1 Active 543109532 ALLERGIES No Information ENCOUNTERS Encounter Location Date Diagnosis [place] [id number] [place] [address] 92431- 8307 December, [facility] [address] [place] [address] Dec, [facility] [id number] [place] [address] 99816- 5686 Dec, 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 ; Unprotected sexual intercourse Z72.51 ; Pain of left thumb M79.645 ; Mixed hyperlipidemia E78.2 ; Gastroparesis K31.84 ; Essential hypertension I10 and Irritable bowel syndrome with constipation K58.1 [facility] [address] [place] [id number] [place] [address] 53624- 5606 Dec, Opioid use disorder, severe, in early remission F11.21 [facility] [address] [place] [id number] [place] [address] 15303- 1936 Oct, [facility] [address] [place] [address] [id number] [place] [address] 17768 2546 Oct, Opioid use disorder, severe, in early remission F11.21 [facility] [address] [place] [id number] [place] [address] 13288 2546 Oct, [facility] [address] [place] [id number] [place] [address] 11549 2546 Oct, Opioid use disorder, severe, in early remission F11.21 [facility] [address] [place] [address] [id number] [place] [address] 58022 2546 Oct, [facility] [address] [place] [id number] [place] [address] 27118 2546 Oct, [facility] [address] [place] [address] Oct, Opioid use disorder, severe, in sustained remission F11.21 [facility] [address] [id number] [place] [address] 48486- 5106 Sep, [facility] [address] [place] [address] [id number] [place] [address] 77837- 6506 Sep, [facility] [address] [id number] [place] [address] 84679- 2546 Sep, Opioid use disorder, severe, 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 [facility] [id number] [place] [address] 26178 2546 Aug, Opioid use disorder, severe, in early remission F11.21 [facility] [id number] [place] [address] 16522- 9186 Jul, [facility] [address] [place] [address] [id number] [place] [address] 12212- 2526 21 Nov, 2017 Chronic kidney disease, stage 3 N18.3 ; Dysthymia F34.1 and Opioid use disorder, severe, in sustained remission F11.21 [facility] [address] [place] [address] Jul, Opioid use disorder, severe, in sustained remission F11.21 [facility] [address] [place] [id number] [place] [address] 42140- 3309 Jul, Long-term use of high-risk medication Z79.899 and Chronic kidney disease, stage 3 N18.3 [facility] [address] [place] [id number] [place] [address] 24121- 2762 Jul, Opioid use disorder, severe, 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 [place] [address] [place] [id number] [place] [address] 37952- 9494 Jul, [place] [address] [place] [id number] [place] [address] 96893- 0358 Jun, [facility] [address] [place] [id number] [place] [address] 23639- 1831 Jun, [facility] [address] 62041- 5260 Jun, Opioid use disorder, moderate, dependence F11.20 and Opioid use disorder, severe, in early remission F11.21 [facility] [address] [place] [id number] [place] [address] 27394- 6147 Jun, [place] [address] [place] [id number] [place] [address] 65382- 9231 Jun, Long-term use of high-risk medication Z79.899 [facility] [address] [place] [id number] [place] [address] 47242- 8573 Jun, CHI I (cervical intraepithelial neoplasia I) N87.0 [place] [address] [place] [id number] [place] [address] 57722- 0617 May, Opioid use disorder, severe, 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 [place] [address] [place] [address] 7494 18 May, 2017 Chronic kidney disease, stage 3 N18.3 [facility] [address] [place] [id number] [place] [address] 13945- 1701 14 May, 2017 Chronic kidney disease, stage 3 N18.3 [facility] [address] [place] [address] 05 May, 2017 Opioid use disorder, severe, in sustained remission F11.21 [facility] [address] [id number] [place] [address] 87484- 1848 Apr, LGSIL on Pap smear of cervix R87.612 [facility] [address] [place] [address] Apr, [facility] [address] [place] [address] [id number] [place] [address] 99906- 5546 Apr, Opioid use disorder, severe, 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 [facility] [address] [place] [id number] [place] [address] 56171- 3356 Apr, Opioid use disorder, severe, 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 [facility] [address] [place] [id number] [place] [address] 97733- 4961 Apr, Opioid use disorder, severe, 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 [facility] [address] [place] [address] [id number] [place] [address] 38768- 8705 Apr, Opioid use disorder, severe, 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 [facility] [address] [place] [id number] [place] [address] 79836- 6618 14 Apr, 2017 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 [facility] [address] [place] [id number] [place] [address] 69764- 3539 Apr, Opioid use disorder, severe, 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 [facility] [address] [place] [address] Apr, Opioid use disorder, severe, in sustained remission F11.21 [facility] [address] [place] [address] [id number] [place] [address] 05167- 0957 Apr, Opioid use disorder, severe, 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 [facility] [address] [place] [address] [id number] [place] [address] 13784- 5595 Apr, Mild episode of recurrent major depressive disorder F33.0 and Right acute serous otitis media, recurrence not specified H65.01 [facility] [address] [place] [id number] [place] [address] 29264- 1155 Mar, [facility] [address] [place] [address] [id number] [place] [address] 83660- 8301 Mar, Opioid use disorder, severe, in early remission F11.21 [facility] [address] 36539- 0597 Mar, [facility] [address] [place] [address] Mar, Opioid use disorder, severe, in sustained remission F11.21 [facility] [address] [place] [address] Mar, Opioid use disorder, severe, in sustained remission F11.21 [facility] [address] [place] [id number] [place] [address] 94831- 9573 Mar, Opioid use disorder, severe, in early remission F11.21 [facility] [address] [place] [id number] [place] [address] 21936- 7090 Jan, Opioid use disorder, severe, in early remission F11.21 [facility] [address] [place] [address] Jan, Opioid use disorder, severe, in sustained remission F11.21 [facility] [address] [place] [address] Jan, Opioid use disorder, severe, in sustained remission F11.21 [facility] [address] [place] [id number] [place] [address] 86127- 3946 Jan, Opioid use disorder, severe, in early remission F11.21 [facility] [address] [place] [address] Jan, Opioid use disorder, severe, in sustained remission F11.21 [facility] [id number] [place] [address] 07736- 7450 December, Opioid use disorder, severe, 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 [facility] [address] [place] [address] December, Opioid use disorder, severe, in sustained remission F11.21 [facility] [address] [place] [id number] [place] [address] 34025- 8726 December, Routine gynecological examination Z01.419 and Chronic kidney disease, stage 3 N18.3 [place] [id number] [place] [address] 47374- 9155 December, Chronic kidney disease, stage 3 N18.3 ; 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 ; Gastroparesis K31.84 ; Essential hypertension I10 and Irritable bowel syndrome with constipation K58.1 [facility] [address] [place] [address] December, Opioid use disorder, severe, in sustained remission F11.21 [facility] [address] [place] [id number] [place] [address] 68717- 8947 December, Opioid use disorder, severe, 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 [facility] [address] [place] [address] December, Opioid use disorder, severe, in sustained remission F11.21 [place] [id number] [place] [address] 58896- 3022 December, Encounter for therapeutic drug level monitoring Z51.81 [facility] [address] [place] [address] December, Opioid use disorder, severe, in sustained remission F11.21 [facility] [address] [place] [address] Dec, Opioid use disorder, severe, in sustained remission F11.21 [facility] [address] [place] [id number] [place] [address] 53017- 0940 Dec, Opioid use disorder, severe, 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 [facility] [address] [id number] [address]- 0175 Dec, [facility] [address] [place] [address] Dec, Opioid use disorder, severe, in sustained remission F11.21 [facility] [address] [place] [id number] [place] [address] 44500- 7149 Dec, Opioid use disorder, severe, 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 [facility] [address] [place] [address] 06 Dec, 2016 Opioid use disorder, severe, in sustained remission F11.21 [facility] [address] [place] [id number] [place] [address] 79259- 0530 Dec, 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 [facility] [address] [place] [id number] [place] [address] 65955- 0573 03 Dec, 2016 Opioid use disorder, severe, in sustained remission F11.21 ; Encounter for therapeutic drug level monitoring Z51.81 and Other shelter ( current) drug therapy Z79.899 [facility] [address] [place] [address] 31 Oct, 2016 Opioid use disorder, severe, in sustained remission F11.21 [facility] [address] [place] [id number] [place] [address] 44158- 8931 23 Oct, 2016 Opioid use disorder, severe, 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 [facility] [address] [place] [id number] [place] [address] 45774- 8267 15 Oct, 2016 [facility] [address] [place] [address] Oct, Opioid use disorder, severe, in sustained remission F11.21 [facility] [address] [place] [id number] [place] [address] 99473- 2896 15 Oct, 2016 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 [facility] [address] [place] [id number] [place] [address] 85665- 8548 14 Oct, 2016 Routine gynecological examination Z01.[address] [place] [address]- 8101 07 Oct, 2016 Opioid use disorder, severe, in early remission F11.21 [facility] [address] 25178- 5691 Oct, Opioid use disorder, severe, in early remission F11.21 [facility] [address] [place] [id number] [place] [address] 34022- 7570 Oct, Opioid use disorder, severe, in early remission F11.21 [facility] [address] [place] [address] Oct, Opioid use disorder, severe, in sustained remission F11.21 [place] [address] 34916- 3616 Oct, Opioid use disorder, severe, in early remission F11.21 [place] [address] 58363- 5586 Oct, Opioid use disorder, severe, 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 [facility] [address] [place] [address] Oct, Opioid use disorder, severe, in sustained remission F11.21 [place] [address] 66653- 2393 20 Oct, 2016 Opioid use disorder, severe, in sustained remission F11.21 ; Encounter for therapeutic drug level monitoring Z51.81 and Other shelter ( current) drug therapy Z79.899 [place] [address] [place] [id number] [place] [address] 47533- 2597 16 Oct, 2016 [facility] [address] [place] [address] 14 Oct, 2016 Opioid use disorder, severe, 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 [facility] [address] [place] [address] 10 Oct, 2016 Opioid use disorder, severe, in early remission F11.21 [facility] [address] [place] [id number] [place] [address] 38839- 7264 09 Oct, 2016 Opioid use disorder, severe, in early remission F11.21 [facility] [address] [address]- 4635 08 Oct, 2016 [facility] [address] [place] [id number] [place] [address] 79779- 4111 Oct, [facility] [address] [place] [id number] [place] [address] 71288- 5987 Oct, [facility] [address] [place] [address] Oct, Opioid use disorder, severe, in early remission F11.21 [facility] [address] [place] [id number] [place] [address] 05846- 0449 Sep, Opioid use disorder, severe, 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 [facility] [address] [place] [address] Sep, Opioid use disorder, severe, 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 [facility] [address] [place] [id number] [place] [address] 52549- 3525 Sep, Opioid use disorder, severe, 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 ; Other long term acute care registered nurse (current) drug therapy Z79.899 and Encounter for therapeutic drug level monitoring Z51.81 [facility] [address] [place] [id number] [place] [address] 28510- 9278 Sep, [facility] [address] [place] [address] 47204- 1187 Sep, [facility] [address] [place] [id number] [place] [address] 02142- 1712 Sep, Opioid use disorder, severe, 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 ; 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 ; Chronic kidney disease, stage 3 N18.3 ; Essential hypertension I10 and Irritable bowel syndrome with constipation K58.1 [facility] [address] [place] [address] Sep, Opioid use disorder, severe, 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 [facility] [address] [place] [address] Sep, Opioid use disorder, severe, 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 [facility] [address] [place] [id number] [place] [address] 97967- 5423 Sep, Opioid use disorder, moderate, dependence F11.20 [facility] [address] [place] [id number] [place] [address] 78473- 9817 Sep, Opioid use disorder, moderate, dependence F11.20 [facility] [address] [place] [address] Sep, Opioid use disorder, severe, 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 [place] [id number] [place] [address] 14567- 4660 Sep, Opioid use disorder, severe, 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 [facility] [address] [place] [address] Aug, Opioid use disorder, severe, in early remission F11.[address] 17977- 3004 Aug, Opioid use disorder, moderate, dependence F11.20 [facility] [address] [place] [id number] [place] [address] 07254 -3350 Aug, Bug bite without infection, initial encounter W57.XXXA [place] [id number] [place] [address] 84351- 2039 Aug, Opioid use disorder, moderate, dependence F11.20 [facility] [address] [place] [address] Aug, [place] [id number] [place] [address] 85578- 1450 Aug, Opioid use disorder, severe, 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 ; Other long term acute care registered nurse (current) drug therapy Z79.899 ; Encounter for therapeutic drug level monitoring Z51.81 and 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 [facility] [address] [place] [address] 15 Aug, 2016 [facility] [address] [place] [address] 00091- 5666 Aug, Opioid use disorder, moderate, dependence F11.20 ; Other long term acute care registered nurse (current) drug therapy Z79.899 and Encounter for therapeutic drug level monitoring Z51.81 [facility] [address] [id number] [place] [address] 995746- 0083 Aug, [facility] [address] [place] [id number] [place] [address] 599504- 5378 Aug, Non-intractable vomiting with nausea, unspecified vomiting type R11.2 [facility] [address] [place] [id number] [place] [address] 264667- 9616 Aug, Opioid use disorder, moderate, dependence F11.20 and Non- intractable vomiting with nausea, unspecified vomiting type R11.2 [facility] [address] [place] [id number] [place] [address] 58901- 1788 Aug, [facility] [address] [place] [id number] [place] [address] 70272- 2601 Aug, Opioid use disorder, moderate, dependence F11.20 [facility] [address] [place] [id number] [place] [address] 52870- 9303 Aug, [facility] [address] [place] [id number] [place] [address] 29348- 5131 Jul, 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 and Opioid use disorder, moderate, dependence F11.20 [facility] [address] [place] [address] Jul, [facility] [address] [id number] [place] [address] 50332- 5796 Jul, [facility] [address] [id number] [place] [address] 79073- 7114 Jul, [facility] [address] [place] [id number] [place] [address] 12986- 0668 Jul, Addiction to drug F19.20 and Chronic kidney disease, stage 3 N18.3 [facility] [address] [place] [address] Jul, Counseling on substance use and abuse Z71.89 [facility] [address] [place] [id number] [place] [address] 42586- 3038 Jul, Chronic kidney disease, stage 3 N18.3 [facility] [address] [place] [id number] [place] [address] 13899- 2149 Jul, 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 ; Diarrhea, unspecified type R19.7 and Essential hypertension I10 [facility] [address] [place] [id number] [place] [address] 49575- 9791 Jul, [facility] [address] 12146- 2514 Jun, [facility] [address] [place] [id number] [place] [address] 57694- 1606 Jun, [facility] [address] 66786- 3489 Apr, 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 [facility] [address] [place] [id number] [place] [address] 15146- 8359 Apr, Sore throat and laryngitis J06.0 and Non-intractable vomiting with nausea, unspecified vomiting type R11.2 [facility] [address] [id number] [place] [address] 70336- 3616 Apr, [facility] [address] [id number] [place] [address] 10990- 0796 Mar, [facility] [address] [id number] [place] [address] 59119- 8570 Jan, [facility] [address] [id number] [place] [address] 77394- 9473 Jan, [facility] [address] [id number] [place] [address] 87424- 9593 Jan, [facility] [address] 85970- 2671 December, 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 ; Gastroparesis K31.84 ; Mixed hyperlipidemia E78.2 ; Chronic kidney disease, stage 3 N18.3 ; Dysthymia F34.1 and Acute bilateral low back pain without sciatica M54.5 [place] [address] 07741- 0805 December, [place] [address] 08967- 3595 December, [place] [address] 37375- 9194 Aug, Depression F32.9 and Gastroparesis K31.84 [place] [address] 84234- 7613 Aug, Gastroparesis K31.84 [place] [address] 78398- 8807 Jul, Recurrent UTI N39.0 ; Chronic kidney disease, stage 3 N18.3 and 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 [place] [address] 36141- 7134 Jul, [facility] [address] [id number] Jul, Dental examination Z01.20 and Dental caries K02.9 [place] [address] 42051- 6472 Jul, [facility] [address] 27467 -4752 Jul, Dysuria R30.0 ; Urinary tract infection N39.0 and Nausea R11.0 [place] [address] 17561- 9686 Jun, Dysuria R30.0 [place] [address] 81987- 0926 Jun, Dysuria R30.0 [place] [id number] [place] [address] 77883- 6643 Jun, Dysuria R30.0 [place] [address] [place] [id number] [place] [address] 84084- 1339 Jun, [place] [address] [place] [id number] [place] [address] 46965- 0171 Jun, Acute cystitis with hematuria N30.01 [place] [address] [place] [id number] [place] [address] 46380- 5287 May, [place] [address] [place] [id number] [place] [address] 50005- 9804 Apr, Diabetes mellitus without mention of complication, type I [ juvenile type], not stated as uncontrolled 250.01 ; Gastroparesis due to DM 250.60 ; Contraception management V25.9 and Renal insufficiency 593.9 [place] [address] [place] [id number] [place] [address] 12779- 8478 Apr, [place] [address] [place] [id number] [place] [address] 47424- 5484 Apr, [place] [address] [place] [id number] [place] [address] 89146- 2549 Mar, [place] [address] [place] [id number] [place] [address] 66974- 1336 Mar, Hyperlipidemia 272.4 and Hypertensive heart and chronic kidney disease, benign, without heart failure and with chronic kidney disease stage I through stage IV, or unspecified 404.10 [place] [address] [place] [address] 91272- 6536 Mar, Hyperlipidemia 272.4 ; Hyponatremia 276.1 ; 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 ; Hypertensive heart and chronic kidney disease, benign, without heart failure and with chronic kidney disease stage I through stage IV, or unspecified 404.10 ; Proteinuria 791.0 and Chronic kidney disease (CKD), stage III (moderate) 585.3 [place] [address] [address]- 3483 Mar, [facility] [address] [address]- 0067 Mar, Elevated blood sugar level 790.29 [place] [address] [id number] [address] Mar, Low grade squamous intraepithelial lesion (LGSIL) on cervical Pap smear 795.03 [place] [id number] [address] Mar, Amenorrhea 626.0 [place] [id number] [place] [address] Jan, Amenorrhea 626.0 ; Routine gynecological examination V72.31 and Screen for STD (sexually transmitted disease) V74.5 [place] [id number] [address] Jan, Amenorrhea 626.0 [place] [id number] [address] 08 Jan, 2015 Routine gynecological examination V72.31 ; Screen for STD ( sexually transmitted disease) V74.5 ; Pap test, as part of routine gynecological examination V76.2 ; Breast cancer screening V76.10 and Amenorrhea 626.0 [place] [id number] [address] December, [place] [id number] [address] Dec, [place] [id number] [address] Dec, [facility] [id number] [address] 30 Oct, 2014 [place] [address] [place] [id number] [address] Oct, [facility] [place] [facility] [address] [id number] [place] [address] Oct, [facility] [place] [facility] [address] [id number] [place] [address]- 6[address] Oct, [facility] [place] [facility] [address] [id number] [place] [address]- 9531 Oct, [facility] [place] [facility] [address] [id number] [place] [address] 6[address] Oct, [facility] [place] [facility] [address] [id number] [place] [address]- 7[address] Oct, [facility] [place] [facility] [address] [id number] [place] [address]- 8505 Oct, [facility] [place] [facility] [address] [id number] [place] [address]- 5772 Oct, [facility] [place] [facility] [address] [id number] [place] [address]- 9464 Oct, [facility] [place] [facility] [address] [id number] [place] [address]- 8288 Oct, [facility] [place] [facility] [address] [id number] [place] [address]- 395[address] Sep, [facility] [place] [facility] [address] [id number] [place] [address]- 0924 Sep, [facility] [place] [facility] [address] [id number] [place] [address]- 9[address] Sep, [facility] [place] [facility] [address] [id number] [place] [address]- 4393 Sep, [facility] [place] [facility] [address] [id number] [place] [address]- 5740 Sep, [facility] [place] [facility] [address] [id number] [place] [address]- 2550 Sep, [facility] [place] [facility] [address] [id number] [place] [address]- 3646 15 Sep, 2014 [facility] [address] [id number] [place] [address]- 4819 15 Sep, 2014 [facility] [place] [facility] [address] [id number] [place] [address]- 9821 Sep, [facility] [place] [facility] [address] [id number] [place] [address]- 5956 Sep, [facility] [place] [facility] [address] [id number] [place] [address]- 4696 Sep, [facility] [place] [facility] [address] [id number] [place] [address]- 7446 Sep, [facility] [place] [facility] [address] [id number] [place] [address]- 9033 Sep, [facility] [place] [facility] [address] [id number] [place] [address]- 5221 Sep, [facility] [place] [facility] [address] [id number] [place] [address]- 9600 Sep, [facility] [place] [facility] [address] [id number] [place] [address]- 2308 Sep, [facility] [place] [facility] [address] [id number] [place] [address]- 3831 Sep, [facility] [place] [facility] [address] [id number] [place] [address]- 3494 Sep, [facility] [place] [facility] [address] [id number], [place] [address] 120[address] Sep, [facility] [place] [facility] [address] [id number], [place] [address] 6[address] Sep, [facility] [place] [facility] [address] [id number] [place] [address]- 3394 Aug, [facility] [place] [facility] [address] [id number] [place] [address]- 6530 Aug, [facility] [place] [facility] [address] [id number] [place] [address]- 4188 09 Aug, 2014 [facility] [place] [facility] [address] [id number] [place] [address] Aug, [facility] [place] [facility] [address] [id number] [place] [address]- 0022 08 Aug, 2014 [facility] [place] [facility] [address] [id number] [place] [address]- 7517 Aug, [facility] [place] [facility] [address] [id number] [place] [address] Aug, [facility] [place] [facility] [address] [id number] [place] [address]- 5573 Aug, [facility] [place] [facility] [address] [id number] [place] [address]- 5702 Aug, [facility] [place] [facility] [address] [id number] [place] [address]- 2122 Aug, [facility] [place] [facility] [address] [id number] [place] [address]- 8964 Aug, [facility] [place] [facility] [address] [id number] [place] [address]- 7305 Aug, [facility] [place] [facility] [address] [id number] [place] [address]- 9976 Jul, [facility] [place] [facility] [address] [id number] [place] [address]- 1591 Jul, [facility] [place] [facility] [address] [id number] [place] [address]- 3024 Jul, [facility] [place] [facility] [address] [id number] [place] [address] Jul, [facility] [place] [facility] [address] [id number] [place] [address]- 5517 17 Jul, 2014 [facility] [place] [facility] [address] [id number] [place] [address]- 1873 Jul, [facility] [place] [facility] [address] [id number] [place] [address]- 4233 Jul, [facility] [place] [facility] [address] [id number] [place] [address]- 9066 Jul, [facility] [place] [facility] [address] [id number] [place] [address]- 5647 Jul, [facility] [place] [facility] [address] [id number] [place] [address]- 8258 Jul, [facility] [place] [facility] [address] [id number] [place] [address] Jun, [facility] [place] [facility] [address] [id number] [place] [address] Jun, [facility] [place] [facility] [address] [id number] [place] [address]- 9379 30 Jun, 2014 [facility] [place] [facility] [address] [id number] [address]- [address]284 30 Jun, 2014 [facility] [place] [facility] [address] [id number] [place] [address]- 4562 30 Jun, 2014 [facility] [place] [facility] [address] [id number] [place] [address]- 4674 30 Jun, 2014 [facility] [place] [facility] [address] [id number], [place] [address]- 2499 15 Jun, 2014 [facility] [place] [facility] [address] [id number], [place] [address]- 3883 15 Jun, 2014 [facility] [place] [facility] [address] [id number] [place] [address]- 5626 22 May, 2014 [facility] [place] [facility] [address] [id number] [address] 22 May, 2014 [facility] [place] [facility] [address] [id number] [place] [address] 18 May, 2014 [facility] [place] [facility] [address] [id number] [place] [address]- 7912 May, [facility] [place] [facility] [address] [id number] [place] [address]- 3308 May, [facility] [place] [facility] [address] [id number] [place] [address]- 2914 May, [facility] [place] [facility] [address] [id number] [place] [address]- 3139 May, [facility] [place] [facility] [address] [id number] [place] [address]- 9472 May, [facility] [place] [facility] [address] [id number] [place] [address]- 9239 Apr, [facility] [place] [facility] [address] [id number] [place] [address]- 6308 Apr, [facility] [place] [facility] [address] [id number] [place] [address]- 9868 Apr, [facility] [place] [facility] [address] [id number] [place] [address]- 0666 Apr, [facility] [place] [facility] [address] [id number] [place] [address]- 3473 Mar, [facility] [place] [facility] [address] [id number] [place] [address]- 4284 Mar, [facility] [place] [facility] [address] [id number] [place] [address]- 8627 Mar, [facility] [place] [facility] [address] [id number] [place] [address]- 9440 Mar, [facility] [place] [facility] [address] [id number] [place] [address]- 3184 Mar, [facility] [place] [facility] [address] [id number] [place] [address]- 9685 Mar, [facility] [place] [facility] [address] [id number] [place] [address]- 2527 Jan, [facility] [place] [facility] [address] [id number] [place] [address]- 7832 Jan, [facility] [place] [facility] [address] [id number] [place] [address]- 0515 Jan, [facility] [place] [facility] [address] [id number] [place] [address]- 7348 Jan, [facility] [place] [facility] [address] [id number] [place] [address]- 5168 Jan, [facility] [place] [facility] [address] [id number] [place] [address]- 6602 Jan, [facility] [place] [facility] [address] [id number] [place] [address]- 8769 Jan, [facility] [place] [facility] [address] [id number] [place] [address]- 1079 Jan, [facility] [place] [facility] [address] [id number] [place] [address]- 1343 Jan, [facility] [place] [facility] [address] [id number] [place] [address]- 0919 Jan, [facility] [place] [facility] [address] [id number] [place] [address]- 1203 Jan, [facility] [place] [facility] [address] [id number] [place] [address]- 2050 Jan, [facility] [place] [facility] [address] [id number] [place] [address]- 6213 December, [facility] [place] [facility] [address] [id number] [place] [address]- 1586 December, [facility] [place] [facility] [address] [id number] [place] [address]- 1155 December, [facility] [place] [facility] [address] [id number] [place] [address]- 6509 December, [facility] [place] [facility] [address] [id number] [place] [address]- 1593 Dec, [facility] [place] [facility] [address] [id number] [place] [address]- 1386 Dec, [facility] [place] [facility] [address] [id number] [place] [address]- 8503 Dec, [facility] [place] [facility] [address] [id number] [place] [address]- 0775 Dec, [facility] [place] [facility] [address] [id number] [place] [address]- 1558 Dec, [facility] [place] [facility] [address] [id number] [place] [address]- 3723 Dec, [facility] [place] [facility] [address] [id number] [place] [address]- 9315 Dec, [facility] [place] [facility] [address] [id number] [place] [address]- 8160 Dec, [facility] [place] [facility] [address] [id number] [place] [address]- 2698 Dec, [facility] [place] [facility] [address] [id number] [place] [address]- 8031 Dec, [facility] [place] [facility] [address] [id number] [place] [address]- 8505 Dec, [facility] [place] [facility] [address] [id number] [place] [address]- 6081 Dec, [facility] [place] [facility] [address] [id number] [place] [address]- 2409 Dec, [facility] [place] [facility] [address] [id number] [place] [address]- 7560 Dec, [facility] [place] [facility] [address] [id number] [place] [address] Oct, [facility] [place] [facility] [address] [id number] [place] [address]- 4337 Oct, [facility] [place] [facility] [address] [id number] [place] [address]- 3545 29 Oct, 2013 [facility] [address] [id number] [place] [address]- 7374 29 Oct, 2013 [facility] [address] [id number] [place] [address]- 0497 28 Oct, 2013 [facility] [address] [id number] [place] [address]- 9487 28 Oct, 2013 [facility] [address] [id number] [place] [id number] Oct, [facility] [address] [id number] [place] [address]- 1005 Oct, [facility] [address] [id number] [place] [address]- 9443 Oct, [facility] [address] [id number] [place] [address]- 8155 Oct, [facility] [address] [id number] [place] [address]- 4131 Sep, [facility] [address] [id number] [place] [address]- 7108 Sep, [facility] [address] [id number] [place] [address]- 4964 Sep, [facility] [address] [id number] [place] [address]- 8674 Sep, [facility] [address] [id number] [place] [address]- 1654 Sep, [facility] [address] [id number] [place] [address]- 8045 Sep, [facility] [address] [id number] [place] [address]- 7716 Aug, [facility] [address] [id number] [place] [address]- 0136 Aug, [facility] [address] [facility] [id number], [place] [address]- 5270 Jul, [facility] [id number] [address]- 5065 Jul, [facility] [id number] [address]70 Jul, [facility] [id number], [place] [address]- 9425 Jul, [facility] [address] [facility] [id number], [place] [address]- 0341 Jul, IMMUNIZATIONS No Known Immunizations SOCIAL HISTORY Never Assessed REASON FOR VISIT Treatment Plan initial - DATE PLAN OF CARE VITAL SIGNS MEDICATIONS Unknown [...]
--- OUTSIDE RECORDS SUMMARY | 2018-08-30 21:01 | XMS REPORT ---
Author Author ALVIN CARMEN [facility] Address [address] [place] [address] Care Team Providers Care Steward/Stewardess Wine Name Role Phone NELLA ALVIN Unavailable PROBLEMS Type Condition ICD9-CM Code XED24-PK Code Onset Dates Condition Status SNOMED Code Problem Essential hypertension I10 Active 52953098 Problem Addiction to drug F19.20 Active 014799628 Problem Diarrhea, unspecified type R19.7 Active 96507683 Problem Right acute serous otitis media, recurrence not specified H65.01 Active 972271984 Problem Mild episode of recurrent major depressive disorder F33.0 Active 607325571 Problem Encounter for therapeutic drug level monitoring Z51.81 Active 299212068 Problem 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 Active 661730511 Problem Opioid use disorder, severe, in sustained remission F11.21 Active 66133765 Problem Irritable bowel syndrome with constipation K58.1 Active 727997563 Problem Recurrent UTI N39.0 Active 255955085 Problem Gastroparesis K31.84 Active 163923430 Problem Acute bilateral low back pain without sciatica M54.5 Active 354906245 Problem Chronic kidney disease, stage 3 N18.3 Active 836633439 Problem Dysthymia F34.1 Active 99027359 Problem 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
--- OUTSIDE RECORDS SUMMARY | 2018-08-30 21:01 | XMS REPORT ---
Author Author NOEMY MORGAN [facility] Address [address] 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 Active 74509144 Problem Chronic kidney disease, stage 3 N18.3 Active 353301773 Problem CHI I (cervical intraepithelial neoplasia I) N87.0 Active 452541393 Problem Mild episode of recurrent major depressive disorder F33.0 Active 275810883 Problem Addiction to drug F19.20 Active 032896798 Problem Essential hypertension I10 Active 58147758 Problem Opioid use disorder, severe, in sustained remission F11.21 Active 35647984 Problem Irritable bowel syndrome with constipation K58.1 Active 025573604 ALLERGIES No Information ENCOUNTERS Encounter Location Date Diagnosis [facility] [address] [place] [address] Mar, [facility] [id number] [place] [address] 63774- 5746 Jan, [facility] [id number], [place] [address] December, Opioid use disorder, severe, in early remission F11.21 [facility] [address] [place] [address] December, Opioid use disorder, severe, in sustained remission F11.21 [facility] [id number], [place] [address] December, Opioid use disorder, severe, in sustained remission F11.21 and 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 [facility] [id number] [place] [address] 11165- 5360 December, Opioid use disorder, severe, in early remission F11.21 [facility] [address] [place] [address] Dec, Opioid use disorder, severe, in sustained remission F11.21 [facility] [address] [address] Dec, 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 ; Unprotected sexual intercourse Z72.51 ; Pain of left thumb M79.645 ; Mixed hyperlipidemia E78.2 ; Gastroparesis K31.84 ; Essential hypertension I10 and Irritable bowel syndrome with constipation K58.1 [facility] [address] [address] Dec, Opioid use disorder, severe, in early remission F11.21 [facility] [id number] [place] [address] 38661- 1055 Oct, [facility] [id number] [place] [address] 46583- 2202 Oct, Opioid use disorder, severe, 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 [facility] [id number] [place] [address] 23482- 7241 Oct, [facility] [id number] [place] [address] 87838- 8611 Oct, Opioid use disorder, severe, 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 [facility] [id number] [place] [address] 51605- 4676 Oct, [facility] [id number] [place] [address] 50213- 1986 Oct, [facility] [address] [place] [address] Oct, Opioid use disorder, severe, in sustained remission F11.21 [facility] [address] [address] Sep, [facility] [id number] [place] [address] 43803- 3648 Sep, [facility] [id number] [place] [address] 80109- 8278 Sep, Opioid use disorder, severe, 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 [facility] [id number] [place] [address] 37380- 2983 Aug, Opioid use disorder, severe, 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 [facility] [id number] [place] [address] 89115- 2689 Jul, [facility] [id number] [place] [address] 25745- 2520 Jul, Chronic kidney disease, stage 3 N18.3 ; Dysthymia F34.1 and Opioid use disorder, severe, in sustained remission F11.21 [facility] [address] [place] [address] Jul, Opioid use disorder, severe, in sustained remission F11.21 [facility] [id number] [place] [address] 38787- 0942 Jul, Long-term use of high-risk medication Z79.899 and Chronic kidney disease, stage 3 N18.3 [facility] [address] [place] [address] 81753- 3195 Jul, Opioid use disorder, severe, 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 [facility] [address], [place] [address] 36[address] Jul, [facility] [id number] [place] [address] 65329- 4076 Jun, [facility] [address] [place] [address] 20939- 0736 Jun, [facility] [id number] [place] [address] 97647- 3178 Jun, Opioid use disorder, moderate, dependence F11.20 and Opioid use disorder, severe, 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 [facility] [id number] [place] [address] 86039- 6165 Jun, [place] [id number] [place] [address] 57037- 2433 Jun, Long-term use of high-risk medication Z79.899 [place] [id number] [place] [address] 80860- 1720 Jun, CHI I (cervical intraepithelial neoplasia I) N87.0 [place] [id number] [place] [address] 65265- 4224 May, Opioid use disorder, severe, 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 [place] [id number] [place] [address] 87068- 3789 18 May, 2017 Chronic kidney disease, stage 3 N18.3 [place] [id number] [place] [address] 79008- 5450 14 May, 2017 Chronic kidney disease, stage 3 N18.3 [facility] [address] [place] [address] 05 May, 2017 Opioid use disorder, severe, in sustained remission F11.21 [place] [id number] [place] [address] 47781- 7773 Apr, LGSIL on Pap smear of cervix R87.612 [facility] [address] [place] [address] Apr, [facility] [id number] [place] [address] 95204- 7616 Apr, Opioid use disorder, severe, 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 [facility] [id number] [place] [address] 78727- 9363 Apr, Opioid use disorder, severe, in early remission F11.21 [place] [id number] [place] [address] 14952- 8792 Apr, Opioid use disorder, severe, in early remission F11.21 [facility] [address] [place] [address] 21361- 6802 18 Apr, 2017 Opioid use disorder, severe, 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 [facility] [address] [place] [address] 97843- 1108 14 Apr, 2017 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 [facility] [id number] [place] [address] 13138- 5220 10 Apr, 2017 Opioid use disorder, severe, 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 [facility] [address] [place] [address] Apr, Opioid use disorder, severe, in sustained remission F11.21 [facility] [id number] [place] [address] 46264- 7299 Apr, Opioid use disorder, severe, 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 [facility] [id number] [place] [address] 86176- 3089 Apr, Mild episode of recurrent major depressive disorder F33.0 and Right acute serous otitis media, recurrence not specified H65.01 [facility] [id number] [place] [address] 72855- 1249 Mar, [facility] [address] [place] [address] 49229- 3611 Mar, Opioid use disorder, severe, 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 [facility] [address] [place] [address] 93477- 2265 Mar, [facility] [address] [place] [address] Mar, Opioid use disorder, severe, in sustained remission F11.21 [facility] [address] [place] [address] Mar, Opioid use disorder, severe, in sustained remission F11.21 [facility] [id number] [place] [address] 83696- 9214 Mar, Opioid use disorder, severe, in early remission F11.21 [place] [id number] [place] [address] 72489- 5084 Jan, Opioid use disorder, severe, 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 [facility] [address] [place] [address] Jan, Opioid use disorder, severe, in sustained remission F11.21 [facility] [address] [place] [address] Jan, Opioid use disorder, severe, in sustained remission F11.21 [place] [id number] [place] [address] 482398- 8311 Jan, Opioid use disorder, severe, in early remission F11.21 [facility] [address] [place] [address] Jan, Opioid use disorder, severe, in sustained remission F11.21 [place] [id number] [place] [address] 91722- 3638 December, Opioid use disorder, severe, in early remission F11.21 [facility] [address] [place] [address] December, Opioid use disorder, severe, in sustained remission F11.21 [place] [id number] [place] [address] 64883- 9641 December, Routine gynecological examination Z01.419 and Chronic kidney disease, stage 3 N18.3 [place] [id number] [place] [address] 94896- 8546 December, Chronic kidney disease, stage 3 N18.3 ; 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 ; Gastroparesis K31.84 ; Essential hypertension I10 and Irritable bowel syndrome with constipation K58.1 [facility] [address] [place] [address] December, Opioid use disorder, severe, in sustained remission F11.21 [place] [id number] [place] [address] 37713- 1343 December, Opioid use disorder, severe, 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 [facility] [address] [place] [address] December, Opioid use disorder, severe, in sustained remission F11.21 [facility] [id number] [place] [address] 03890- 3936 December, Encounter for therapeutic drug level monitoring Z51.81 [facility] [address] [place] [address] December, Opioid use disorder, severe, in sustained remission F11.21 [facility] [address] [place] [address] Dec, Opioid use disorder, severe, in sustained remission F11.21 [facility] [address] [place] [address] 86336- 6145 Dec, Opioid use disorder, severe, in early remission F11.[address] 11834- 5259 Dec, [facility] [address] [place] [address] Dec, Opioid use disorder, severe, in sustained remission F11.21 [facility] [address] [place] [address] 77516- 8106 Dec, Opioid use disorder, severe, in early remission F11.21 [facility] [address] [place] [address] Dec, Opioid use disorder, severe, in sustained remission F11.21 [facility] [address] [place] [id number] [place] [address] 73869- 3672 Dec, 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 [facility] [address] [place] [address] 01231- 7337 Dec, Opioid use disorder, severe, in sustained remission F11.21 ; Encounter for therapeutic drug level monitoring Z51.81 and Other superintendent container terminal ( current) drug therapy Z79.899 [facility] [address] [place] [address] 31 Mar, 2017 Opioid use disorder, severe, in sustained remission F11.21 [facility] [address] [place] [address] 05781- 5427 Oct, Opioid use disorder, severe, 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 [facility] [id number] [place] [address] 52291- 0636 15 Oct, 2016 [facility] [address] [place] [address] 15 Oct, 2016 Opioid use disorder, severe, in sustained remission F11.21 [facility] [id number] [place] [address] 35235- 7210 15 Oct, 2016 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 [place] [id number] [place] [address] 81961- 1951 14 Oct, 2016 Routine gynecological examination Z01.419 [place] [id number] [place] [address] 66541- 3628 07 Oct, 2016 Opioid use disorder, severe, in early remission F11.21 [facility] [id number] [place] [address] 44790- 3500 06 Oct, 2016 Opioid use disorder, severe, in early remission F11.21 [facility] [id number] [place] [address] 26045- 9415 06 Oct, 2016 Opioid use disorder, severe, in early remission F11.21 [facility] [address] [place] [address] Oct, Opioid use disorder, severe, in sustained remission F11.21 [facility] [address] [place] [address] 71918- 3213 Oct, Opioid use disorder, severe, in early remission F11.21 [facility] [id number] [place] [address] 60197- 2605 Oct, Opioid use disorder, severe, 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 [facility] [address] [place] [address] Oct, Opioid use disorder, severe, in sustained remission F11.21 [facility] [address], [place] [address] 2546 20 Oct, 2016 Opioid use disorder, severe, in sustained remission F11.21 ; Encounter for therapeutic drug level monitoring Z51.81 and Other nursing 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.899 [facility] [id number] [place] [address] 56420 2546 16 Oct, 2016 [facility] [address] [place] [address] 14 Oct, 2016 Opioid use disorder, severe, in early remission F11.21 [facility] [address] [place] [address] 10 Oct, 2016 Opioid use disorder, severe, in early remission F11.21 [facility] [id number] [place] [address] 81393 2546 09 Oct, 2016 Opioid use disorder, severe, in early remission F11.21 [facility] [id number] [place] [address] 72459 2546 Oct, [facility] [id number] [place] [address] 79362 2546 Oct, [facility] [id number] [place] [address] 05777 2546 Oct, [facility] [address] [place] [address] Oct, Opioid use disorder, severe, in early remission F11.21 [facility] [id number] [place] [address] 25518 2549 Sep, Opioid use disorder, severe, in early remission F11.21 [facility] [address] [place] [address] Sep, Opioid use disorder, severe, 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 [facility] [id number] [place] [address] 52678 2545 Sep, Opioid use disorder, severe, 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 ; Other nursing home (current) drug therapy Z79.899 and Encounter for therapeutic drug level monitoring Z51.81 [facility] [id number] [place] [address] 23723- 5433 Sep, [facility] [id number] [place] [address] 03766- 6881 Sep, [place] [id number] [place] [address] 41303- 2734 Sep, Opioid use disorder, severe, 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 ; 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 ; Chronic kidney disease, stage 3 N18.3 ; Essential hypertension I10 and Irritable bowel syndrome with constipation K58.1 [facility] [address] [place] [address] Sep, Opioid use disorder, severe, in early remission F11.21 [facility] [address] [place] [address] Sep, Opioid use disorder, severe, in early remission F11.21 [place] [id number] [place] [address] 67549- 9115 Sep, Opioid use disorder, moderate, dependence F11.[address] 35173- 2502 Sep, Opioid use disorder, moderate, dependence F11.20 [facility] [address] [place] [address] Sep, Opioid use disorder, severe, in early remission F11.21 [place] [id number] [place] [address] 22369- 7094 Sep, Opioid use disorder, severe, 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 [facility] [address] [place] [address] Aug, Opioid use disorder, severe, 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 [place] [id number] [place] [address] 47081- 7376 Aug, Opioid use disorder, moderate, dependence F11.20 [facility] [address] [place] [address] [place] [phone] Aug, Bug bite without infection, initial encounter W57.XXXA [facility] [address] [address]294207- 2368 Aug, Opioid use disorder, moderate, dependence F11.20 [facility] [address] 06822762[address]25[address] Aug, [facility] [address] 151521- 8337 Aug, Opioid use disorder, severe, 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 ; Other nursing home (current) drug therapy Z79.899 ; Encounter for therapeutic drug level monitoring Z51.81 and 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 [facility] [address] 06822762[address]2546 Aug, [facility] [address] 67759- 0757 Aug, Opioid use disorder, moderate, dependence F11.20 ; Other superintendent container terminal (current) drug therapy Z79.899 and Encounter for therapeutic drug level monitoring Z51.81 [facility] [address] 84936- 2524 Aug, [facility] [address] 86731- 8958 Aug, Non-intractable vomiting with nausea, unspecified vomiting type R11.2 [facility] [id number] [place] [address] 14169- 7841 Aug, Opioid use disorder, moderate, dependence F11.20 and Non- intractable vomiting with nausea, unspecified vomiting type R11.2 [facility] [id number] [place]- [address] Aug, [facility] [id number] [place] [address]- 3699 Aug, Opioid use disorder, moderate, dependence F11.20 [facility] [id number] [place] [address]- 2546 Aug, [facility] [id number] [place] [address] 67270- 2436 Jul, 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 and Opioid use disorder, moderate, dependence F11.20 [facility] [address] [place] [address] Jul, [facility] [id number] [place] [address] 78269- 5476 Jul, [facility] [id number] [place] [address] 29841- 9132 Jul, [facility] [id number] [place] [address] 10533- 8046 Jul, Addiction to drug F19.20 and Chronic kidney disease, stage 3 N18.3 [facility] [address] [place] [address] Jul, Counseling on substance use and abuse Z71.89 [facility] [id number] [place] [address] 69403- 2553 Jul, Chronic kidney disease, stage 3 N18.3 [facility] [id number] [place] [address] 93173- 2741 Jul, 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 ; Diarrhea, unspecified type R19.7 and Essential hypertension I10 [facility] [id number] [place] [address] 73478- 4245 Jul, [facility] [id number] [place] [address] 63762- 9612 Jun, [facility] [id number] [place] [address] 17156- 8443 Jun, [facility] [id number] [place] [address] 79573- 3828 Apr, 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 [facility] [id number] [place] [address] 72823- 5638 Apr, Sore throat and laryngitis J06.0 and Non-intractable vomiting with nausea, unspecified vomiting type R11.2 [facility] [id number] [place] [address] 47255- 6074 Apr, [facility] [id number] [place] [address] 02137- 2843 Mar, [facility] [id number] [place] [address] 95617- 9130 Jan, [facility] [id number] [place] [address] 83174- 5156 Jan, [place] [id number] [place] [address] 82808- 0194 Jan, [place] [id number] [place] [address] 54307- 7211 December, 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 ; Gastroparesis K31.84 ; Mixed hyperlipidemia E78.2 ; Chronic kidney disease, stage 3 N18.3 ; Dysthymia F34.1 and Acute bilateral low back pain without sciatica M54.5 [place] [id number] [place] [address] 93127- 8458 December, [place] [id number] [place] [address] 69687- 3467 December, [facility] [id number] [place] [address] 57623- 9123 Aug, Depression F32.9 and Gastroparesis K31.84 [facility] [id number] [place] [address] 52509- 6280 Aug, Gastroparesis K31.84 [facility] [id number] [place] [address] 83484- 7826 Jul, Recurrent UTI N39.0 ; Chronic kidney disease, stage 3 N18.3 and 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 [facility] [address] [place] [address] [phone] Jul, [facility] [id number] [place] [address] [id number] Jul, Dental examination Z01.20 and Dental caries K02.9 [facility] [id number] [place] [address] [phone] 17 Jul, 2015 [facility] [id number] [place] [id number] [phone] Jul, Dysuria R30.0 ; Urinary tract infection N39.0 and Nausea R11.0 [place] [address] [id number]- [phone] Jun, Dysuria R30.0 [facility] [facility] [address] [address]- [address] Jun, Dysuria R30.0 [facility] [address] [address]- 2061 Jun, Dysuria R30.0 [facility] [address] [place] [id number] [place] [address] 37028- 4913 Jun, [facility] [id number] [place] [address] 95368- 0734 Jun, Acute cystitis with hematuria N30.01 [facility] [id number] [place] [address] 69746- 0525 May, [facility] [id number] [place] [address] 24584- 6945 Apr, Diabetes mellitus without mention of complication, type I [ juvenile type], not stated as uncontrolled 250.01 ; Gastroparesis due to DM 250.60 ; Contraception management V25.9 and Renal insufficiency 593.9 [facility] [id number] [place] [address] 86176- 0336 Apr, [facility] [address] [place] [address]- 3523 Apr, [place] [id number] [place] [address] 28802- 3704 Mar, [place] [id number] [place] [address] 12972- 1444 Mar, Hyperlipidemia 272.4 and Hypertensive heart and chronic kidney disease, benign, without heart failure and with chronic kidney disease stage I through stage IV, or unspecified 404.10 [place] [id number] [place] [address] 95206- 5354 Mar, Hyperlipidemia 272.4 ; Hyponatremia 276.1 ; 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 ; Hypertensive heart and chronic kidney disease, benign, without heart failure and with chronic kidney disease stage I through stage IV, or unspecified 404.10 ; Proteinuria 791.0 and Chronic kidney disease (CKD), stage III (moderate) 585.3 [place] [id number] [place] [address] 98643- 7902 Mar, [place] [id number] [place] [address] 50955- 8221 Mar, Elevated blood sugar level 790.29 [place] [id number] [place] [address] 40930- 0880 Mar, Low grade squamous intraepithelial lesion (LGSIL) on cervical Pap smear 795.03 [place] [id number] [place] [address] 24775- 5286 Mar, Amenorrhea 626.0 [place] [id number] [place] [address] 04411- 6735 Jan, Amenorrhea 626.0 ; Routine gynecological examination V72.31 and Screen for STD (sexually transmitted disease) V74.5 [address] [place] [address] 14238- 7565 Jan, Amenorrhea 626.0 [place] [id number] [place] [address] 79911- 2546 08 Jan, 2015 Routine gynecological examination V72.31 ; Screen for STD ( sexually transmitted disease) V74.5 ; Pap test, as part of routine gynecological examination V76.2 ; Breast cancer screening V76.10 and Amenorrhea 626.0 [facility] [address] [facility] [id number] [address]- [address]40 13 Dec, 2014 [facility] [id number] [place] [address] 31426- 7757 Dec, [facility] [address] [facility] [id number] [address]- 6956 Dec, [facility] [id number] [place] [address] 76285- 6397 Oct, [facility] [address] [address]- 4454 Oct, [facility] [id number] 6453 Oct, [facility] [address] [address]- 3426 Oct, [facility] [address] 8205 Oct, [facility] [address] [address]- 8980 Oct, [facility] [address] [address]- 7165 Oct, [facility] [address] [address]- 0583 Oct, [facility] [address], [place] [address]- 1588 Oct, [facility] [address], [place] [address]- 9966 Oct, [facility] [address], [place] [address]- 3742 Oct, [facility] [place] [facility] [address] [id number] [place] [address]- 6020 Sep, [facility] [place] [facility] [address] [id number] [place] [address]- 9315 Sep, [facility] [place] [facility] [address] [id number] [place] [address]- 7570 Sep, [facility] [place] [facility] [address] [id number] [place] [address]- 9013 Sep, [facility] [place] [facility] [address] [id number] [place] [address]- 6007 Sep, [facility] [place] [facility] [address] [id number] [place] [address]- 6371 Sep, [facility] [place] [facility] [address] [id number] [place] [address]- 3359 Sep, [facility] [place] [facility] [address] [id number] [place] [address]- 1704 Sep, [facility] [place] [facility] [address] [id number] [place] [address]- 9853 Sep, [facility] [place] [facility] [address] [id number] [place] [address]- 7932 Sep, [facility] [place] [facility] [address] [id number], [place] [address]- 1966 Sep, [facility] [place] [facility] [address] [id number], [place] [address]- 8585 Sep, [facility] [place] [facility] [address] [id number], [place] [address]- 2456 Sep, [facility] [place] [facility] [address] [id number], [place] [address]- 0114 Sep, [facility] [place] [facility] [address] [id number] [place] [address]- 0205 Sep, [facility] [place] [facility] [address] [id number] [place] [address]- 9303 07 Sep, 2014 [facility] [address] [id number] [place] [address]- 5953 Sep, [facility] [address] [id number] [place] [address]- 6980 Sep, [facility] [address] [id number] [place] [address]- 7884 Sep, [facility] [address] [id number] [place] [address]- 8525 Sep, [facility] [address] [id number] [place] [address]23 Aug, [facility] [address] [id number] [place] [address]- 0291 Aug, [facility] [address] [id number] [place] [address]- 9025 Aug, [facility] [address] [id number] [place] [address]- 1183 Aug, [facility] [address] [id number] [place] [address]- 4008 Aug, [facility] [address] [id number] [place] [address]- 3132 Aug, [facility] [place] [facility] [address] [id number] [place] [address]- 7926 Aug, [facility] [address] [id number] [place] [address]- 4104 04 Aug, 2014 [facility] [place] [facility] [address] [id number] [place] [address]- 9998 Aug, [facility] [place] [facility] [address] [id number] [place] [address]- 7387 Aug, [facility] [place] [facility] [address] [id number] [place] [address]- 8097 Aug, [facility] [place] [facility] [address] [id number] [place] [address]- 1561 Aug, [facility] [place] [facility] [address] [id number] [place] [address]- 4731 Jul, [facility] [place] [facility] [address] [id number] [place] [address]- 2159 Jul, [facility] [place] [facility] [address] [id number] [place] [address]- 7781 Jul, [facility] [place] [facility] [address] [id number] [place] [address]- 1783 Jul, [facility] [place] [facility] [address] [id number] [place] [address]- 5433 Jul, [facility] [place] [facility] [address] [id number] [place] [address]- 0007 Jul, [facility] [place] [facility] [address] [id number] [place] [address]- 9803 Jul, [facility] [place] [facility] [address] [id number] [place] [address]- 9515 Jul, [facility] [place] [facility] [address] [id number] [place] [address]- 1956 Jul, [facility] [place] [facility] [address] [id number] [place] [address]- 8743 Jul, [facility] [place] [facility] [address] [id number], [place] [address]- 3195 Jun, [facility] [place] [facility] [address] [id number] [place] [address]- 1051 Jun, [facility] [place] [facility] [address] [id number] [place] [address]- 2634 Jun, [facility] [place] [facility] [address] [id number] [place] 5226 Jun, [facility] [place] [facility] [address] [id number] [place] [address]- 7931 30 Jun, 2014 [facility] [place] [facility] [address] [id number] [place] [address]- 7620 30 Jun, 2014 [facility] [place] [facility] [address] [id number] [place] [address]- 2139 15 Jun, 2014 [facility] [place] [facility] [address] [id number] [place] [address]- 3856 15 Jun, 2014 [facility] [place] [facility] [address] [id number] [place] [address]- 4930 22 May, 2013 [facility] [place] [facility] [address] [id number] [place] [address]- 4722 22 May, 2013 [facility] [place] [facility] [address] [id number] [place] [address]- 0978 18 May, 2013 [facility] [place] [facility] [address] [id number] [place] [address]- 8038 18 May, 2013 [facility] [place] [facility] [address] [id number] [place] [address]- 1633 09 May, 2013 [facility] [place] [facility] [address] [id number] [place] [address]- 6387 08 May, 2013 [facility] [place] [facility] [address] [id number] [place] [address]- 3808 02 May, 2014 [facility] [place] [facility] [address] [id number] [place] [address]- 4072 May, 2013 [facility] [place] [facility] [address] [id number] [place] [address]- 6452 Apr, [facility] [place] [facility] [address] [id number] [place] [address]- 4327 Apr, [facility] [place] [facility] [address] [id number] [place] [address]- 3829 Apr, [facility] [place] [facility] [address] [id number] [place] [address]- 4417 Apr, [facility] [place] [facility] [address] [id number] [place] [address]- 5747 Mar, [facility] [place] [facility] [address] [id number] [place] [address]- 4434 Mar, [facility] [place] [facility] [address] [id number] [place] [address]- 1350 Mar, [facility] [place] [facility] [address] [id number] [place] [address]- 4690 Mar, [facility] [place] [facility] [address] [id number] [place] [address]- 2526 Mar, [facility] [place] [facility] [address] [id number] [place] [address]- 1682 Mar, [facility] [place] [facility] [address] [id number] [place] [address]- 4085 Jan, [facility] [place] [facility] [address] [id number] [place] [address]- 2731 Jan, [facility] [place] [facility] [address] [id number] [place] [address]- 3628 Jan, [facility] [place] [facility] [address] [id number] [place] [address]- 4869 Jan, [facility] [place] [facility] [address] [id number] [place] [address]- 9502 Jan, [facility] [place] [facility] [address] [id number] [place] [address]- 5765 Jan, [facility] [place] [facility] [address] [id number] [place] [address]- 9624 Jan, [facility] [place] [facility] [address] [id number] [place] [address]- 6494 Jan, [facility] [place] [facility] [address] [id number] [place] [address]- 5282 Jan, [facility] [place] [facility] [address] [id number] [place] [address]- 4498 Jan, [facility] [place] [facility] [address] [id number] [place] [address]- 9906 Jan, [facility] [place] [facility] [address] [id number] [place] [address]- 7449 Jan, [facility] [place] [facility] [address] [id number] [place] [address]- 3974 December, [facility] [place] [facility] [address] [id number] [place] [address]- 5062 December, [facility] [place] [facility] [address] [id number] [place] [address]- 5763 December, [facility] [place] [facility] [address] [id number] [place] [address]- 7295 December, [facility] [place] [facility] [address] [id number] [place] [address]- 8191 Dec, [facility] [place] [facility] [address] [id number] [place] [address]- 3463 Dec, [facility] [place] [facility] [address] [id number] [place] [address]- 8061 Dec, [facility] [place] [facility] [address] [id number] [place] [address]- 9884 Dec, [facility] [place] [facility] [address] [id number] [place] [address]- 4797 Dec, [facility] [place] [facility] [address] [id number], [place] [address]- 9394 Dec, [facility] [place] [facility] [address] [id number] [place] [address]- 1897 Dec, [facility] [place] [facility] [address] [id number] [place] [address]- 2326 Dec, [facility] [place] [facility] [address] [id number] [place] [address]- 2917 Dec, [facility] [place] [facility] [address] [id number] [place] [address]- 3653 Dec, [facility] [place] [facility] [address] [id number] [place] [address]- 6237 Dec, [facility] [place] [facility] [address] [id number] [place] [address]- 8549 Dec, [facility] [place] [facility] [address] [id number] [place] [address]- 4882 Dec, [facility] [place] [facility] [address] [id number] [place] [address]- 4950 Dec, [facility] [place] [facility] [address] [id number] [place] 2522 Oct, [facility] [place] [facility] [address] [id number] [place] [address]- 1216 Oct, [facility] [place] [facility] [address] [id number] [place] [address]- 2393 Oct, [facility] [place] [facility] [address] [id number] [place] [address]- 4609 Oct, [facility] [place] [facility] [address] [id number] [place] [address]- 3385 Oct, [facility] [place] [facility] [address] [facility] [id number] [place] [address]- 4431 Oct, [facility] [place] [facility] [address] [facility] [id number] [place] [address] Oct, [facility] [place] [facility] [address] [id number] [place] [address]- 6958 Oct, [facility] [place] [facility] [address] [id number] [place] [address]- 9221 Oct, [facility] [place] [facility] [address] [id number] [place] [address]- 2622 Oct, [facility] [place] [facility] [address] [id number] [place] [address]- 5474 Sep, [facility] [address], [place] [address]- 7821 Sep, [facility] [address] 7192 Sep, [facility] [address] 8520 Sep, [facility] [id number] [place] [address] 184165- 4464 Sep, [facility] [address] 8407 Sep, [facility] [id number] [place] [address] 920559- 0806 Aug, [facility] [address] 6210 Aug, [facility] [address] [place] [address] 99666- 4043 Jul, [facility] [address], [place] [address]- 6639 Jul, [facility] [address], [place] [address]- 9066 Jul, [facility] [address], [place] [address]- 0673 Jul, [facility] [address] 6347 Jul, IMMUNIZATIONS No Known Immunizations SOCIAL HISTORY Never Assessed REASON FOR VISIT Suboxone RX (09/12-10/09) PLAN OF CARE VITAL SIGNS MEDICATIONS Medication Instructions Dosage Frequency Start Date End Date Duration Status Suboxone 8-2 MG Sublingual Once a day 2.5 film under the tongue and allow to dissolve 24h Aug, Oct, 28 days Active RESULTS No Results PROCEDURES [...]
--- OUTSIDE RECORDS SUMMARY | 2018-08-30 21:02 | XMS REPORT ---
Author Author NOEMY MORGAN Organization [facility] Address [address] [place] [address] Care Team Providers Care Lot Associate Name Role Phone NOEMY MORGAN Unavailable PROBLEMS Type Condition ICD9-CM Code PKS62-VW Code Onset Dates Condition Status SNOMED Code Problem Essential hypertension I10 Active 05233241 Problem Addiction to drug F19.20 Active 866703962 Problem Diarrhea, unspecified type R19.7 Active 25571941 Problem CHI I (cervical intraepithelial neoplasia I) N87.0 Active 928576372 Problem Right acute serous otitis media, recurrence not specified H65.01 Active 326490709 Problem Irritable bowel syndrome with constipation K58.1 Active 948135448 Problem Encounter for therapeutic drug level monitoring Z51.81 Active 177332299 Problem Mild episode of recurrent major depressive disorder F33.0 Active 620362305 Problem Opioid use disorder, severe, in sustained remission F11.21 Active 34987178 Problem Long-term use of high-risk medication Z79.899 Active 234838852 Problem Recurrent UTI N39.0 Active 004210523 Problem Gastroparesis K31.84 Active 923345445 Problem Acute bilateral low back pain without sciatica M54.5 Active 188751049 Problem 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 Active 67105566 Problem Mixed hyperlipidemia E78.2 Active 647732800 Problem Chronic kidney disease, stage 3 N18.3 Active 218397391 Problem Dysthymia F34.1 Active 28935930 ALLERGIES No Information ENCOUNTERS Encounter Location Date Diagnosis [facility] [address] [place] [address] Dec, [facility] [address] [facility]NOTE 3] [id number] [address] Dec, [facility] [address] [facility]NOTE 3] [id number] [address] Dec, Opioid use disorder, severe, in early remission F11.21 [facility] [id number] [place] [address] 90895- 1785 Oct, [facility] [id number] [place] [address] 192133- 4756 Oct, Opioid use disorder, severe, in early remission F11.21 [facility] [id number] [place] [address] 84354- 0776 Oct, [facility] [id number] [place] [address] 705667- 7186 Oct, Opioid use disorder, severe, in early remission F11.21 [facility] [id number] [place] [address] 849619- 4686 Oct, [facility] [id number] [place] [address] 08199- 2846 Oct, [facility] [address] [place] [address] Oct, Opioid use disorder, severe, in sustained remission F11.21 [facility] [id number] [place] [address] 75504- 3781 Sep, [facility] [id number] [place] [address] 36384- 0973 Sep, [facility] [id number] [place] [address] 61888- 3463 Sep, Opioid use disorder, severe, in early remission F11.21 [facility] [address] [place] [address] 42798- 3651 Aug, Opioid use disorder, severe, in early remission F11.21 [facility] [id number] [place] [address] 891691- 0036 Jul, [facility] [id number] [place] [address] 09020- 3124 Jul, Chronic kidney disease, stage 3 N18.3 ; Dysthymia F34.1 and Opioid use disorder, severe, in sustained remission F11.21 [facility] [address] [place] [address] Jul, Opioid use disorder, severe, in sustained remission F11.21 [facility] [id number] [place] [address] 54728- 0903 Jul, Long-term use of high-risk medication Z79.899 and Chronic kidney disease, stage 3 N18.3 [facility] [id number] [place] [address] 48351- 7525 Jul, Opioid use disorder, severe, in 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 [facility] [address] 64661- 5792 Jul, [facility] [id number] [place] [address] 27838- 2817 Jun, [facility] [address] 14359- 9623 Jun, [facility] [id number] [place] [address] 95415- 2637 Jun, Opioid use disorder, moderate, dependence F11.20 and Opioid use disorder, severe, in early remission 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 [facility] [id number] [place] [address] 66868- 9621 Jun, [facility] [id number] [place] [address] 62625- 1328 Jun, Long-term use of high-risk medication Z79.899 [facility] [id number] [place] [address] 62387- 3898 Jun, CHI I (cervical intraepithelial neoplasia I) N87.0 [facility] [id number] [place] [address] 82214- 0525 May, Opioid use disorder, severe, in early remission F11.21 [facility] [id number] [place] [address] 42235- 5581 18 May, 2017 Chronic kidney disease, stage 3 N18.3 [facility] [id number] [place] [address] 91976- 1359 14 May, 2017 Chronic kidney disease, stage 3 N18.3 [facility] [address] [place] [address] 05 May, 2017 Opioid use disorder, severe, in sustained remission F11.21 [facility] [id number] [place] [address] 27483- 1894 Apr, LGSIL on Pap smear of cervix R87.612 [facility] [address] [place] [address] Apr, [facility] [id number] [place] [address] 42372- 2006 Apr, Opioid use disorder, severe, 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 [facility] [id number] [place] [address] 78004- 1846 Apr, Opioid use disorder, severe, in early remission F11.21 [facility] [id number] [place] [address] 67855- 8785 Apr, Opioid use disorder, severe, in early remission F11.21 [facility] [id number] [place] [address] 73604- 0048 Apr, Opioid use disorder, severe, in early remission F11.21 [facility] [id number] [place] [address] 23348- 8655 14 Apr, 2017 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 [facility] [id number] [place] [address] 50572- 6716 Apr, Opioid use disorder, severe, in early remission F11.21 [facility] [address] [place] [address] Apr, Opioid use disorder, severe, in sustained remission F11.21 [facility] [id number] [place] [address] 75849- 7012 09 Apr, 2017 Opioid use disorder, severe, 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 [facility] [address] [address] Apr, Mild episode of recurrent major depressive disorder F33.0 and Right acute serous otitis media, recurrence not specified H65.01 [facility] [address] [address] Mar, [facility] [id number] [place] [address] 40304- 2825 Mar, Opioid use disorder, severe, in early remission F11.21 [facility] [id number] [place] [address] 05134- 0829 Mar, [facility] [address] [place] [address] Mar, Opioid use disorder, severe, in sustained remission F11.21 [facility] [address] [place] [address] Mar, Opioid use disorder, severe, in sustained remission F11.21 [facility] [id number] [place] [address] 69515- 1415 Mar, Opioid use disorder, severe, in early remission F11.21 [facility] [address] [place] [address] 69393- 9893 Jan, Opioid use disorder, severe, in early remission F11.21 [facility] [address] [place] [address] Jan, Opioid use disorder, severe, in sustained remission F11.21 [facility] [address] [place] [address] Jan, Opioid use disorder, severe, in sustained remission F11.21 [facility] [id number] [place] [address] 51611- 7572 Jan, Opioid use disorder, severe, in early remission F11.21 [facility] [address] [place] [address] Jan, Opioid use disorder, severe, in sustained remission F11.21 [facility] [id number] [address]57 December, Opioid use disorder, severe, in early remission F11.21 [facility] [address] [place] [address] December, Opioid use disorder, severe, in sustained remission F11.21 [place] [id number] [place] [address] 20022- 8046 December, Routine gynecological examination Z01.419 and Chronic kidney disease, stage 3 N18.3 [place] [id number] [place] [address] 04741- 6106 December, Chronic kidney disease, stage 3 N18.3 ; 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 ; Gastroparesis K31.84 ; Essential hypertension I10 and Irritable bowel syndrome with constipation K58.[address] [address] December, Opioid use disorder, severe, in sustained remission F11.21 [place] [id number] [place] [address] 34297- 6918 December, Opioid use disorder, severe, in early remission F11.21 [facility] [address] [place] [address] December, Opioid use disorder, severe, in sustained remission F11.21 [place] [id number] [place] [address] 57216- 7655 December, Encounter for therapeutic drug level monitoring Z51.81 [facility] [address] [place] [address] December, Opioid use disorder, severe, in sustained remission F11.21 [facility] [address] [place] [address] Dec, Opioid use disorder, severe, in sustained remission F11.21 [place] [id number] [place] [address] 35878- 8665 Dec, Opioid use disorder, severe, in early remission F11.21 [place] [id number] [place] [address] 56711- 7718 Dec, [facility] [address] [place] [address] Dec, Opioid use disorder, severe, in sustained remission F11.21 [facility] [id number] [place] [address] 11997- 6747 Dec, Opioid use disorder, severe, 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 [facility] [address] [place] [address] 06 Dec, 2016 Opioid use disorder, severe, in sustained remission F11.21 [facility] [id number] [place] [address] 77877- 4172 Dec, 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 [facility] [id number] [place] [address] 22732- 9034 Dec, Opioid use disorder, severe, in sustained remission F11.21 ; Encounter for therapeutic drug level monitoring Z51.81 and Other fci ( current) drug therapy Z79.899 [facility] [address] [place] [address] 31 Oct, 2016 Opioid use disorder, severe, in sustained remission F11.21 [facility] [id number] [place] [address] 50190- 0469 23 Oct, 2016 Opioid use disorder, severe, 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 [facility] [id number] [place] [address] 67199- 5059 15 Oct, 2016 [facility] [address] [place] [address] 15 Oct, 2016 Opioid use disorder, severe, in sustained remission F11.21 [facility] [id number] [place] [address] 04080- 1618 15 Oct, 2016 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 [facility] [id number] [place] [address] 64989- 7676 14 Oct, 2016 Routine gynecological examination Z01.[address] 02154- 9892 Oct, Opioid use disorder, severe, in early remission F11.21 [facility] [id number] [place] [address] 21232- 4970 Oct, Opioid use disorder, severe, in early remission F11.21 [facility] [id number] [place] [address] 88205- 8989 Oct, Opioid use disorder, severe, in early remission F11.21 [facility] [address] [place] [address] Oct, Opioid use disorder, severe, in sustained remission F11.21 [facility] [id number] [place] [address] 29665- 8677 Oct, Opioid use disorder, severe, in early remission F11.21 [facility] [id number] [place] [address] 24065- 7381 Oct, Opioid use disorder, severe, in early remission F11.21 [facility] [address] [place] [address] Oct, Opioid use disorder, severe, in sustained remission F11.21 [facility] [id number] [place] [address] 11800- 5932 Oct, Opioid use disorder, severe, in sustained remission F11.21 ; Encounter for therapeutic drug level monitoring Z51.81 and Other medical terminologist ( current) drug therapy Z79.899 [facility] [id number] [place] [address] 73717- 7594 16 Oct, 2016 [facility] [address] [place] [address] 14 Oct, 2016 Opioid use disorder, severe, in early remission F11.21 [facility] [address] [place] [address] 10 Oct, 2016 Opioid use disorder, severe, in early remission F11.21 [facility] [id number] [place] [address] 44508- 2921 09 Oct, 2016 Opioid use disorder, severe, in early remission F11.21 [facility] [address] [address]- 9474 08 Oct, 2016 [facility] [id number] [place] [address] 17789- 6377 Oct, [facility] [id number] [place] [address] 17077- 7866 Oct, [facility] [address] [place] [address] Oct, Opioid use disorder, severe, in early remission F11.21 [facility] [id number] [place] [address] 44291- 4259 Sep, Opioid use disorder, severe, in early remission F11.21 [facility] [address] [place] [address] Sep, Opioid use disorder, severe, in early remission F11.21 [facility] [id number] [place] [address] 83776- 8165 Sep, Opioid use disorder, severe, in early remission F11.21 ; Other medical terminologist (current) drug therapy Z79.899 and Encounter for therapeutic drug level monitoring Z51.81 [facility] [id number] [place] [address] 19414- 4118 Sep, [facility] [id number] [place] [address] 07265- 3898 Sep, [facility] [id number] [place] [address] 12137- 3299 Sep, Opioid use disorder, severe, 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 ; 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 ; Chronic kidney disease, stage 3 N18.3 ; Essential hypertension I10 and Irritable bowel syndrome with constipation K58.1 [facility] [address] [place] [address] Sep, Opioid use disorder, severe, in early remission F11.21 [facility] [address] [place] [address] Sep, Opioid use disorder, severe, 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 [facility] [address] [place] [address] 44762- 1011 Sep, Opioid use disorder, moderate, dependence F11.20 [facility] [id number] [place] [address] 81200- 7628 Sep, Opioid use disorder, moderate, dependence F11.20 [facility] [address] [place] [address] Sep, Opioid use disorder, severe, 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 [place] [id number] [place] [address] 64797 4276 Sep, Opioid use disorder, severe, 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 [facility] [address] [place] [address] Aug, Opioid use disorder, severe, 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 [place] [id number] [place] [address] 12800- 6190 Aug, Opioid use disorder, moderate, dependence F11.20 [facility] [id number] [place] [address] 65283 -5299 Aug, Bug bite without infection, initial encounter W57.XXXA [place] [id number] [place] [address] 52315- 9459 Aug, Opioid use disorder, moderate, dependence F11.20 [facility] [address] [place] [address] Aug, [place] [id number] [place] [address] 62970- 4085 Aug, Opioid use disorder, severe, 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 ; Other fci (current) drug therapy Z79.899 ; Encounter for therapeutic drug level monitoring Z51.81 and 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 [facility] [address] [place] [address] Aug, [facility] [address] [place] [id number] [place] [address] 23044- 5325 Aug, Opioid use disorder, moderate, dependence F11.20 ; Other fci (current) drug therapy Z79.899 and Encounter for therapeutic drug level monitoring Z51.81 [facility] [address] 87332- 8229 Aug, [facility] [address] 62293- 2597 Aug, Non-intractable vomiting with nausea, unspecified vomiting type R11.2 [facility] [address] 033872- 0683 Aug, Opioid use disorder, moderate, dependence F11.20 and Non- intractable vomiting with nausea, unspecified vomiting type R11.2 [facility] [address] 04083- 1433 Aug, [facility] [address] 61067- 1145 Aug, Opioid use disorder, moderate, dependence F11.20 [facility] [id number] [place] [address] 57516- 3265 Aug, [facility] [address] 38596- 6866 Jul, 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 and Opioid use disorder, moderate, dependence F11.20 [facility] [address] [place] [address] Jul, [facility] [id number] [place] [address] 85262- 8015 Jul, [facility] [id number] [place] [address] 55153- 0788 Jul, [facility] [address] 62811- 4785 Jul, Addiction to drug F19.20 and Chronic kidney disease, stage 3 N18.3 [facility] [address] [place] [address] 17 Jul, 2016 Counseling on substance use and abuse Z71.89 [facility] [id number] [place] [address] 56838- 5751 Jul, Chronic kidney disease, stage 3 N18.3 [facility] [id number] [place] [address] 33508- 5935 Jul, 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 ; Diarrhea, unspecified type R19.7 and Essential hypertension I10 [place] [facility] [id number] [place] [address] 99228- 1237 Jul, [facility] [id number] [place] [address] 35096- 5273 Jun, [facility] [id number] [place] [address] 68283- 6550 Jun, [facility] [id number] [place] [address] 01565- 5603 Apr, 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 [facility] [id number] [place] [address] 07616- 7072 Apr, Sore throat and laryngitis J06.0 and Non-intractable vomiting with nausea, unspecified vomiting type R11.2 [facility] [id number] [place] [address] 09172- 0743 Apr, [facility] [id number] [place] [address] 57605- 7304 Mar, [facility] [id number] [place] [address] 71124- 2689 Jan, [facility] [id number] [place] [address] 87770- 4909 Jan, [facility] [id number] [place] [address] 96194- 2853 Jan, [facility] [id number] [place] [address] 47021- 2647 December, 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 ; Gastroparesis K31.84 ; Mixed hyperlipidemia E78.2 ; Chronic kidney disease, stage 3 N18.3 ; Dysthymia F34.1 and Acute bilateral low back pain without sciatica M54.5 [facility] [id number] [place] [address] 70902- 8419 December, [facility] [address] 00342- 6375 December, [facility] [address] 94168- 7797 Aug, Depression F32.9 and Gastroparesis K31.84 [place] [address] 96068- 1483 Aug, Gastroparesis K31.84 [place] [address] 03395- 6177 Jul, Recurrent UTI N39.0 ; Chronic kidney disease, stage 3 N18.3 and 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 [place] [address] 88014- 1937 Jul, [facility] [address] [id number] Jul, Dental examination Z01.20 and Dental caries K02.[address] 14253- 2041 Jul, [facility] [address] 25882 -5336 Jul, Dysuria R30.0 ; Urinary tract infection N39.0 and Nausea R11.0 [place] [address] 97432- 1134 Jun, Dysuria R30.0 [facility] [address] 50584- 3763 Jun, Dysuria R30.0 [place] [address] [place] [address] 6034 Jun, Dysuria R30.0 [place] [facility] [address] [id number] [place] [address] Jun, [place] [address] [place] [id number] [place] [address]- [address] Jun, Acute cystitis with hematuria N30.01 [place] [address] [place] [id number] [place] [address]- [address] May, [place] [address] [place] [id number] [place] [address]- [address] Apr, Diabetes mellitus without mention of complication, type I [ juvenile type], not stated as uncontrolled 250.01 ; Gastroparesis due to DM 250.60 ; Contraception management V25.9 and Renal insufficiency 593.9 [place] [id number] [place] [address]- [address] Apr, [place] [address] [place] [id number] [place] [address]- 74[address] Apr, [place] [id number] [place] [address]- [address] Mar, [place] [id number] [place] [address]- 2960 Mar, Hyperlipidemia 272.4 and Hypertensive heart and chronic kidney disease, benign, without heart failure and with chronic kidney disease stage I through stage IV, or unspecified 404.10 [place] [id number] [place] [address]- [address] Mar, Hyperlipidemia 272.4 ; Hyponatremia 276.1 ; 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 ; Hypertensive heart and chronic kidney disease, benign, without heart failure and with chronic kidney disease stage I through stage IV, or unspecified 404.10 ; Proteinuria 791.0 and Chronic kidney disease (CKD), stage III (moderate) 585.3 [place] [address] [address] Mar, [facility] [address] [address] Mar, Elevated blood sugar level 790.29 [facility] [address] [address] Mar, Low grade squamous intraepithelial lesion (LGSIL) on cervical Pap smear 795.03 [facility] [address] [place] [address] Mar, Amenorrhea 626.0 [facility] [id number] [place] [address]- [address] Jan, Amenorrhea 626.0 ; Routine gynecological examination V72.31 and Screen for STD (sexually transmitted disease) V74.5 [facility] [place] [facility] [address] [address] Jan, Amenorrhea 626.0 [facility] [place] [facility] [address], [place] [address] 08 Jan, 2015 Routine gynecological examination V72.31 ; Screen for STD ( sexually transmitted disease) V74.5 ; Pap test, as part of routine gynecological examination V76.2 ; Breast cancer screening V76.10 and Amenorrhea 626.0 [facility] [place] [facility] [address], [place] [address] December, [facility] [place] [facility] [address], [place] [address] 14 Dec, 2014 [facility] [place] [facility] [address], [place] [address] Dec, [facility] [place] [facility] [address], [place] [address] 30 Oct, 2014 [facility] [place] [facility] [address] [address] [address] 16 Oct, 2014 [facility] [place] [facility] [id number] [place] [address], [place] [address] Oct, [facility] [place] [facility] [address] [id number] [place] [address] Oct, [facility] [place] [facility] [address] [id number] [place] [address] 1536 Oct, [facility] [place] [facility] [address] [id number] [place] [address] 3540 Oct, [facility] [place] [facility] [address] [id number] [place] [address]- 0886 Oct, [facility] [place] [facility] [address] [id number] [place] [address] 7449 Oct, [facility] [place] [facility] [address] [id number] [place] [address] 1564 Oct, [facility] [place] [facility] [address] [id number] [place] [address] 1664 Oct, [facility] [place] [facility] [address] [id number] [place] [address] 6152 Oct, [facility] [place] [facility] [address] [id number] [place] [address]- 4259 Sep, [facility] [place] [facility] [address] [id number] [place] [address]- 1213 Sep, [facility] [place] [facility] [address] [id number] [place] [address]- 6393 Sep, [facility] [place] [facility] [address] [id number] [place] [address] 9144 Sep, [facility] [place] [facility] [address] [id number] [place] [address]- 9969 Sep, [facility] [place] [facility] [address] [id number] [place] [address]- 5317 Sep, [facility] [place] [facility] [address] [id number] [place] [address]- 6591 Sep, [facility] [place] [facility] [address] [id number] [place] [address] 3026 15 Sep, 2014 [facility] [place] [facility] [address] [id number] [place] [address]- 6621 Sep, [facility] [place] [facility] [address] [id number] [place] [address]- 4278 Sep, [facility] [place] [facility] [address] [id number] [place] [address]- 2778 Sep, [facility] [place] [facility] [address] [id number] [place] [address]- 0022 Sep, [facility] [place] [facility] [address] [id number] [place] [address]- 9165 Sep, [facility] [place] [facility] [address] [id number] [place] [address]- 4401 Sep, [facility] [place] [facility] [address] [id number] [place] [address]- 9114 Sep, [facility] [place] [facility] [address] [id number] [place] [address]- 5430 Sep, [facility] [place] [facility] [address] [id number] [place] [address]- 3285 Sep, [facility] [place] [facility] [address] [id number] [place] [address]- 5452 Sep, [facility] [place] [facility] [address] [id number], [place] [address] 96[address] Sep, [facility] [place] [facility] [address] [id number] [place] [address]- 9057 Sep, [facility] [place] [facility] [address] [id number] [place] [address]- 1296 Aug, [facility] [place] [facility] [address] [id number] [place] [address]- 7421 Aug, [facility] [place] [facility] [address] [id number], [place] [address] 99[address] Aug, [facility] [place] [facility] [address] [id number] [place] [address]- 7433 Aug, [facility] [place] [facility] [address] [id number] [place] [address] Aug, [facility] [place] [facility] [address] [id number] [place] [address]- 2928 Aug, [facility] [place] [facility] [address] [id number] [place] [address]- 4661 Aug, [facility] [place] [facility] [address] [id number] [place] [address]- 9316 Aug, [facility] [place] [facility] [address] [id number] [place] [address]- 7842 Aug, [facility] [place] [facility] [address] [id number] [place] [address]- 2171 Aug, [facility] [place] [facility] [address] [id number] [place] [address]- 2901 Aug, [facility] [place] [facility] [address] [id number] [place] [address]- 7535 Aug, [facility] [place] [facility] [address] [id number] [place] [address]- 2564 Jul, [facility] [place] [facility] [address] [id number] [place] [address]- 2146 Jul, [facility] [place] [facility] [address] [id number], [place] [address] Jul, [facility] [place] [facility] [address] [id number] [place] [address]- 3743 Jul, [facility] [place] [facility] [address] [id number] [place] [address]- 7130 Jul, [facility] [place] [facility] [address] [id number] [place] [address]- 1984 Jul, [facility] [place] [facility] [address] [id number] [place] [address]- 6816 07 Jul, 2014 [facility] [place] [facility] [address] [id number] [place] [address]- 8238 Jul, [facility] [place] [facility] [address] [id number] [place] [address] Jul, [facility] [place] [facility] [address] [id number] [place] [address]- 7007 Jul, [facility] [place] [facility] [address] [id number] [place] [address]- 3041 Jun, [facility] [place] [facility] [address] [id number] [place] [address]- 5391 Jun, [facility] [place] [facility] [address] [id number] [place] [address]- 3223 Jun, [facility] [place] [facility] [address] [id number] [place] [address]- 7365 Jun, [facility] [place] [facility] [address] [id number] [place] [address]- 1151 30 Jun, 2014 [facility] [place] [facility] [address] [id number] [place] [address]- 5161 30 Jun, 2014 [facility] [place] [facility] [address] [id number] [place] [address]- 6199 15 Jun, 2014 [facility] [place] [facility] [address] [id number] [place] [address]- 6809 15 Jun, 2014 [facility] [place] [facility] [address] [id number] [place] [address]- 3218 22 May, 2014 [facility] [place] [facility] [address] [id number] [place] [address]- 2308 22 May, 2014 [facility] [place] [facility] [address] [id number] [place] [address]- 4159 18 May, 2014 [facility] [place] [facility] [address] [id number] [place] [address]- 9278 May, [facility] [place] [facility] [address] [id number] [place] [address]- 6194 May, [facility] [place] [facility] [address] [id number] [place] [address]- 6019 May, [facility] [place] [facility] [address] [id number] [place] [address]- 5905 May, [facility] [place] [facility] [address] [id number] [place] [address]- 1907 May, [facility] [place] [facility] [address] [id number] [place] [address]- 7018 Apr, [facility] [place] [facility] [address] [id number] [place] [address]- 8293 Apr, [facility] [place] [facility] [address] [id number] [place] [address]- 0161 Apr, [facility] [place] [facility] [address] [id number] [place] [address]- 4759 Apr, [facility] [place] [facility] [address] [id number] [place] [address]- 4009 Mar, [facility] [place] [facility] [address] [id number] [place] [address]- 7119 Mar, [facility] [place] [facility] [address] [id number] [place] [address]- 2907 Mar, [facility] [place] [facility] [address] [id number] [place] [address]- 6696 Mar, [facility] [place] [facility] [address] [id number] [place] [address]- 7735 Mar, [facility] [place] [facility] [address] [id number] [place] [address]- 1281 Mar, [facility] [place] [facility] [address] [id number] [place] [address]- 5504 Jan, [facility] [place] [facility] [address] [id number] [place] [address]- 8649 Jan, [facility] [place] [facility] [address] [id number] [place] [address]- 4789 Jan, [facility] [place] [facility] [address] [id number] [place] [address]- 8501 Jan, [facility] [place] [facility] [address] [id number] [place] [address]- 9646 Jan, [facility] [place] [facility] [address] [id number] [place] [address]- 5200 Jan, [facility] [place] [facility] [address] [id number] [place] [address]- 4906 Jan, [facility] [place] [facility] [address] [id number] [place] [address]- 7992 Jan, [facility] [place] [facility] [address] [id number] [place] [address]- 0326 Jan, [facility] [place] [facility] [address] [id number] [place] [address]- 0424 Jan, [facility] [place] [facility] [address] [id number] [place] [address]- 0679 Jan, [facility] [place] [facility] [address] [id number] [place] [address]- 6982 Jan, [facility] [place] [facility] [address] [id number] [place] [address]- 8648 December, [facility] [place] [facility] [address] [id number] [place] [address]- 3207 December, [facility] [place] [facility] [address] [id number] [place] [address]- 3360 December, [facility] [place] [facility] [address] [id number] [place] [address]- 2849 December, [facility] [place] [facility] [address] [id number] [place] [address]- 4606 Dec, [facility] [place] [facility] [address] [id number] [place] [address]- 2107 Dec, [facility] [place] [facility] [address] [id number] [place] [address]- 3977 Dec, [facility] [place] [facility] [address] [id number] [place] [address]- 9858 Dec, [facility] [place] [facility] [address] [id number] [place] [address]- 8201 Dec, [facility] [place] [facility] [address] [id number] [place] [address]- 5498 Dec, [facility] [place] [facility] [address] [id number] [place] [address]- 4711 Dec, [facility] [place] [facility] [address] [id number] [place] [address]- 7835 Dec, [facility] [place] [facility] [address] [id number] [place] [address]- 8505 Dec, [facility] [place] [facility] [address] [id number] [place] [address]- 9955 Dec, [facility] [place] [facility] [address] [id number] [place] [address]- 7690 Dec, [facility] [place] [facility] [address] [id number] [place] [address]- 3666 Dec, [facility] [place] [facility] [address] [id number] [place] [address]- 2865 Dec, [facility] [place] [facility] [address] [id number] [place] [address]- 1030 Dec, [facility] [place] [facility] [address] [id number] [place] [address]- 4584 Oct, [facility] [place] [facility] [address] [id number] [place] [address]- 9193 Oct, [facility] [place] [facility] [address] [id number] [place] [address]- 4886 29 Oct, 2013 [facility] [address] [id number] [place] [address]- 4934 29 Oct, 2013 [facility] [address] [id number] [place] [address]- 1126 Oct, [facility] [address] [id number] [place] [address]- 7763 Oct, [facility] [address] [id number] [place] [address] Oct, [facility] [address] [id number] [place] [address]- 5867 Oct, [facility] [address] [id number] [place] [address]- 7778 Oct, [facility] [address] [id number] [place] [address]- 4343 Oct, [facility] [address] [id number] [place] [address]- 8107 Sep, [facility] [address] [id number] [place] [address]- 8093 Sep, [facility] [address] [id number] [place] [address]- 1502 Sep, [facility] [address] [id number] [place] [address]- 6535 Sep, [facility] [place] [facility] [address] [id number], [place] [address]- 0201 Sep, [facility] [place] [facility] [address] [id number] [place] [address]- 9877 Sep, [facility] [place] [facility] [address] [id number] [place] [address]- 3436 Aug, [facility] [place] [facility] [address] [id number] [place] [address]- 5442 Aug, [facility] [place] [facility] [address] [facility] [id number] [place] [address] [address] Jul, [facility] [place] [facility] [address] [facility]NOTE 3] [id number], [place] [address]- 8459 Jul, [facility] [place] [facility] [address] [facility]NOTE [facility]] [id number] 4075 Jul, [facility] [place] [facility] [address] [facility]] [id number]- 2814 Jul, [facility] [place] [facility] [address] [facility]NOTE 3] [id number], [place] [address]- 3311 Jul, IMMUNIZATIONS No Known Immunizations SOCIAL HISTORY Never Assessed REASON FOR VISIT Suboxone RX (03/27-04/11) PLAN OF CARE VITAL SIGNS MEDICATIONS Medication Instructions Dosage Frequency Start Date End Date Duration Status Suboxone 8-2 MG Sublingual Once a day 1.5 film under the tongue and allow to dissolve 24h Aug, Apr, 16 days Active RESULTS No Results PROCEDURES [...]
--- OUTSIDE RECORDS SUMMARY | 2018-08-30 21:02 | XMS REPORT ---
Author Author YANNICK JOSUE Organization [facility] Address [address] [place] [address] Care Team Providers Care Road Freight Conductor Name Role Phone YANNICK JOSUE Unavailable PROBLEMS Type Condition ICD9-CM Code HTH80-PL Code Onset Dates Condition Status SNOMED Code Problem Essential hypertension I10 Active 58425469 Problem Addiction to drug F19.20 Active 021599242 Problem Diarrhea, unspecified type R19.7 Active 05387900 Problem CHI I (cervical intraepithelial neoplasia I) N87.0 Active 370782842 Problem Right acute serous otitis media, recurrence not specified H65.01 Active 356202450 Problem Irritable bowel syndrome with constipation K58.1 Active 358931147 Problem Encounter for therapeutic drug level monitoring Z51.81 Active 732133248 Problem Mild episode of recurrent major depressive disorder F33.0 Active 214266068 Problem Opioid use disorder, severe, in sustained remission F11.21 Active 86911447 Problem Long-term use of high-risk medication Z79.899 Active 769907588 Problem Recurrent UTI N39.0 Active 408828775 Problem Gastroparesis K31.84 Active 721022202 Problem Acute bilateral low back pain without sciatica M54.5 Active 192895141 Problem 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
--- OUTSIDE RECORDS SUMMARY | 2018-08-30 21:02 | XMS REPORT ---
Author Author ALVIN CARMEN [facility] Address [address] [place] [address] Care Team Providers Care Content Engineer Name Role Phone NELLA ALVIN Unavailable PROBLEMS Type Condition ICD9-CM Code IMD01-MT Code Onset Dates Condition Status SNOMED Code Problem Essential hypertension I10 Active 86356524 Problem Addiction to drug F19.20 Active 629326354 Problem Diarrhea, unspecified type R19.7 Active 67984367 Problem Right acute serous otitis media, recurrence not specified H65.01 Active 017913852 Problem Mild episode of recurrent major depressive disorder F33.0 Active 316996051 Problem Encounter for therapeutic drug level monitoring Z51.81 Active 711417434 Problem 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 inspector (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 Z79.899 Active 898653114 Problem Opioid use disorder, severe, in sustained remission F11.21 Active 11021192 Problem Irritable bowel syndrome with constipation K58.1 Active 567528635 Problem Recurrent UTI N39.0 Active 685958310 Problem Gastroparesis K31.84 Active 267752078 Problem Acute bilateral low back pain without sciatica M54.5 Active 015519907 Problem Chronic kidney disease, stage 3 N18.3 Active 089204581 Problem Dysthymia F34.1 Active 72113574 Problem 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
--- OUTSIDE RECORDS SUMMARY | 2018-08-30 21:03 | XMS REPORT ---
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 Active 67616392 Problem Chronic kidney disease, stage 3 N18.3 Active 865748440 Problem CHI I (cervical intraepithelial neoplasia I) N87.0 Active 888595497 Problem Mild episode of recurrent major depressive disorder F33.0 Active 457901429 Problem Addiction to drug F19.20 Active 288042540 Problem Essential hypertension I10 Active 60431014 Problem Opioid use disorder, severe, in sustained remission F11.21 Active 77635646 Problem Irritable bowel syndrome with constipation K58.1 Active 910625516 ALLERGIES No Information ENCOUNTERS Encounter Location Date Diagnosis [facility] [address] [place] [address] December, [facility] [address] [place] [address] 07913- 7553 December, Opioid use disorder, severe, in sustained remission F11.21 and 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 [facility] [address] [place] [address] 87161- 8468 December, Opioid use disorder, severe, in early remission F11.21 [facility] [address] [place] [address] Dec, Opioid use disorder, severe, in sustained remission F11.21 [facility] [address] [place] [address] 33012- 8755 Dec, 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 ; Unprotected sexual intercourse Z72.51 ; Pain of left thumb M79.645 ; Mixed hyperlipidemia E78.2 ; Gastroparesis K31.84 ; Essential hypertension I10 and Irritable bowel syndrome with constipation K58.1 [facility] [address] [place] [address] 57428- 3695 Dec, Opioid use disorder, severe, in early remission F11.21 [facility] [address] [place] [address] 57993- 0777 Oct, [facility] [address] [place] [address] 63494- 2923 Oct, Opioid use disorder, severe, in early remission F11.21 [facility] [id number] [place] [address] 17050- 1596 Oct, [facility] [id number] [place] [address] 52604- 7274 Oct, Opioid use disorder, severe, in early remission F11.21 [facility] [id number] [place] [address] 52086- 7331 Oct, [facility] [id number] [place] [address] 78857- 7011 Oct, [facility] [address] [place] [address] Oct, Opioid use disorder, severe, in sustained remission F11.21 [facility] [id number] [place] [address] 50829- 7623 Sep, [facility] [address] [place] [address] 07196- 1909 Sep, [facility] [address] [place] [address] 50599- 3322 Sep, Opioid use disorder, severe, in early remission F11.21 [place] [address] [address] Aug, Opioid use disorder, severe, in early remission F11.21 [facility] [address] [place] [address] 40369- 7436 Jul, [facility] [address] [place] [address] 88797- 3315 Jul, Chronic kidney disease, stage 3 N18.3 ; Dysthymia F34.1 and Opioid use disorder, severe, in sustained remission F11.21 [facility] [address] [place] [address] Jul, Opioid use disorder, severe, in sustained remission F11.21 [facility] [address] [place] [address] 89451- 7250 Jul, Long-term use of high-risk medication Z79.899 and Chronic kidney disease, stage 3 N18.3 [facility] [address] [place] [address] 06663- 4759 Jul, Opioid use disorder, severe, in early remission F11.21 [facility] [address] [place] [address] 34275- 4354 Jul, [facility] [address] [place] [address] 62738- 1202 Jun, [facility] [address] [place] [address] 71703- 6676 Jun, [facility] [address] [place] [address] 28983- 2545 Jun, Opioid use disorder, moderate, dependence F11.20 and Opioid use disorder, severe, in early remission F11.21 [facility] [address] [place] [address] 56925- 3706 Jun, [facility] [address] [place] [address] 11277- 7198 Jun, Long-term use of high-risk medication Z79.899 [facility] [address] [place] [address] 36690- 5649 04 Jun, 2017 CIH I (cervical intraepithelial neoplasia I) N87.0 [facility] [address] [place] [address] 68875- 8424 May, Opioid use disorder, severe, in early remission F11.21 [facility] [address] [place] [address] 75024- 5289 18 May, 2017 Chronic kidney disease, stage 3 N18.3 [facility] [address] [place] [address] 54139- 0754 14 May, 2017 Chronic kidney disease, stage 3 N18.3 [facility] [address] [place] [address] 05 May, 2017 Opioid use disorder, severe, in sustained remission F11.21 [facility] [address] [place] [address] 31029- 7353 Apr, LGSIL on Pap smear of cervix R87.612 [facility] [address] [place] [address] Apr, [facility] [address] [place] [address] 02490- 9236 Apr, Opioid use disorder, severe, in early remission F11.21 [facility] [address] [place] [address] 14573- 9888 Apr, Opioid use disorder, severe, in early remission F11.21 [facility] [address] [place] [address] 83976- 8820 Apr, Opioid use disorder, severe, in early remission F11.21 [facility] [address] [place] [address] 62043- 0777 Apr, Opioid use disorder, severe, in early remission F11.21 [facility] [address] [place] [address] 59902- 1015 Apr, 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 [facility] [address] [place] [address] 14671- 7976 Apr, Opioid use disorder, severe, in early remission F11.21 [facility] [address] [place] [address] Apr, Opioid use disorder, severe, in sustained remission F11.21 [facility] [address] [place] [address] 77888- 6130 Apr, Opioid use disorder, severe, in early remission F11.21 [facility] [address] [place] [address] 54560- 3588 Apr, Mild episode of recurrent major depressive disorder F33.0 and Right acute serous otitis media, recurrence not specified H65.01 [facility] [address] [place] [address] 57052- 1280 Mar, [facility] [address] [place] [address] 33742- 6899 Mar, Opioid use disorder, severe, in early remission F11.21 [facility] [address] [place] [address] 78313- 8026 Mar, [facility] [address] [place] [address] Mar, Opioid use disorder, severe, in sustained remission F11.21 [facility] [address] [place] [address] Mar, Opioid use disorder, severe, in sustained remission F11.21 [facility] [address] [place] [address] 62717- 5705 Mar, Opioid use disorder, severe, in early remission F11.21 [facility] [address] [place] [address] 64022- 8769 Jan, Opioid use disorder, severe, in early remission F11.21 [facility] [address] [place] [address] Jan, Opioid use disorder, severe, in sustained remission F11.21 [facility] [address] [place] [address] 12 Jan, 2017 Opioid use disorder, severe, in sustained remission F11.21 [place] [id number] [place] [address] 79649- 3198 Jan, Opioid use disorder, severe, in early remission F11.21 [facility] [address] [place] [address] Jan, Opioid use disorder, severe, in sustained remission F11.21 [place] [id number] [place] [address] 65509- 3065 December, Opioid use disorder, severe, in early remission F11.[address] [address] December, Opioid use disorder, severe, in sustained remission F11.21 [place] [id number] [place] [address] 40751- 4615 December, Routine gynecological examination Z01.419 and Chronic kidney disease, stage 3 N18.3 [place] [id number] [place] [address] 08339- 8648 December, Chronic kidney disease, stage 3 N18.3 ; 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 ; Gastroparesis K31.84 ; Essential hypertension I10 and Irritable bowel syndrome with constipation K58.[address] [address] December, Opioid use disorder, severe, in sustained remission F11.21 [place] [id number] [place] [address] 82370- 1860 December, Opioid use disorder, severe, in early remission F11.[address] [address] December, Opioid use disorder, severe, in sustained remission F11.21 [place] [id number] [place] [address] 16231- 1713 December, Encounter for therapeutic drug level monitoring Z51.[address] [address] December, Opioid use disorder, severe, in sustained remission F11.21 [facility] [address] [place] [address] Dec, Opioid use disorder, severe, in sustained remission F11.21 [facility] [address] [place] [address] 31621- 3788 Dec, Opioid use disorder, severe, in early remission F11.21 [facility] [address] [place] [address] 68532- 9308 Dec, [facility] [address] [place] [address] Dec, Opioid use disorder, severe, in sustained remission F11.21 [facility] [address] [place] [address] 25004- 4580 Dec, Opioid use disorder, severe, in early remission F11.21 [facility] [address] [place] [address] Dec, Opioid use disorder, severe, in sustained remission F11.21 [facility] [address] [place] [address] 25256- 9564 Dec, 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 [facility] [address] [place] [address] 07466- 6523 Dec, Opioid use disorder, severe, in sustained remission F11.21 ; Encounter for therapeutic drug level monitoring Z51.81 and Other electrical calibrator ( current) drug therapy Z79.899 [facility] [address] [place] [address] Oct, Opioid use disorder, severe, in sustained remission F11.21 [facility] [address] [place] [address] 73942- 6387 Oct, Opioid use disorder, severe, in early remission F11.21 [facility] [address] [place] [address] 55003- 3372 Oct, [facility] [address] [place] [address] Oct, Opioid use disorder, severe, in sustained remission F11.21 [facility] [address] [place] [address] 97291- 9805 15 Oct, 2016 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 [facility] [address] [place] [address] 07369- 3809 14 Oct, 2016 Routine gynecological examination Z01.419 [facility] [place] [address] 38912- 6997 07 Oct, 2016 Opioid use disorder, severe, in early remission F11.21 [facility] [address] [place] [address] 14178- 4978 06 Oct, 2016 Opioid use disorder, severe, in early remission F11.21 [facility] [address] [place] [address] 72225- 3963 Oct, Opioid use disorder, severe, in early remission F11.21 [facility] [address] [place] [address] Oct, Opioid use disorder, severe, in sustained remission F11.21 [facility] [address] [place] [address] 78810- 0043 Oct, Opioid use disorder, severe, in early remission F11.21 [facility] [address] [place] [address] 42030- 6841 Oct, Opioid use disorder, severe, in early remission F11.21 [facility] [address] [place] [address] Oct, Opioid use disorder, severe, in sustained remission F11.21 [facility] [address] [place] [address] 04155- 5044 Oct, Opioid use disorder, severe, in sustained remission F11.21 ; Encounter for therapeutic drug level monitoring Z51.81 and Other electrical calibrator ( current) drug therapy Z79.899 [facility] [address] [place] [address] 51821- 4527 16 Oct, 2016 [facility] [address] [place] [address] 14 Oct, 2016 Opioid use disorder, severe, in early remission F11.21 [facility] [address] [place] [address] 10 Oct, 2016 Opioid use disorder, severe, in early remission F11.21 [facility] [address] [place] [address] 99031- 0482 09 Oct, 2016 Opioid use disorder, severe, in early remission F11.21 [facility] [address] [place] [address] 62967- 4200 08 Oct, 2016 [facility] [address] 72998- 8651 Oct, [facility] [address] [place] [address] 32002- 2246 Oct, [facility] [address] [place] [address] Oct, Opioid use disorder, severe, in early remission F11.21 [facility] [address] [place] [address] 71047- 8060 Sep, Opioid use disorder, severe, in early remission F11.21 [facility] [address] [place] [address] Sep, Opioid use disorder, severe, in early remission F11.21 [facility] [address] [place] [address] 61687- 5052 Sep, Opioid use disorder, severe, in early remission F11.21 ; Other shelter (current) drug therapy Z79.899 and Encounter for therapeutic drug level monitoring Z51.81 [facility] [address] 57877- 8218 Sep, [facility] [address] [place] [address] 91934- 5221 Sep, [facility] [address] 53739- 1816 Sep, Opioid use disorder, severe, in early remission F11.21 ; 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 ; Chronic kidney disease, stage 3 N18.3 ; Essential hypertension I10 and Irritable bowel syndrome with constipation K58.1 [facility] [address] [place] [address] Sep, Opioid use disorder, severe, in early remission F11.21 [facility] [address] [place] [address] Sep, Opioid use disorder, severe, in early remission F11.21 [facility] [address] [place] [address] 53321- 5653 Sep, Opioid use disorder, moderate, dependence F11.20 [facility] [address] [place] [address] 87989- 8186 Sep, Opioid use disorder, moderate, dependence F11.20 [facility] [address] [place] [address] Sep, Opioid use disorder, severe, in early remission F11.21 [facility] [address] [place] [address] 50262- 1947 Sep, Opioid use disorder, severe, in early remission F11.21 [facility] [address] [place] [address] Aug, Opioid use disorder, severe, in early remission F11.21 [facility] [address] [place] [address] 96119- 2097 Aug, Opioid use disorder, moderate, dependence F11.20 [facility] [address] [address] Aug, Bug bite without infection, initial encounter W57.XXXA [address] 69490- 2435 Aug, Opioid use disorder, moderate, dependence F11.20 [facility] [address] [place] [address] Aug, [facility] [address] [place] [address] [place] [address] 9[address] Aug, Opioid use disorder, severe, in early remission F11.21 ; Other electrical calibrator (current) drug therapy Z79.899 ; Encounter for therapeutic drug level monitoring Z51.81 and 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 [facility] [address] [place] [address] Aug, [facility] [address] 08729- 5567 Aug, Opioid use disorder, moderate, dependence F11.20 ; Other shelter (current) drug therapy Z79.899 and Encounter for therapeutic drug level monitoring Z51.81 [facility] [address] 94209- 7858 Aug, [facility] [address] 64237- 8333 Aug, Non-intractable vomiting with nausea, unspecified vomiting type R11.2 [facility] [address] 06678- 5503 Aug, Opioid use disorder, moderate, dependence F11.20 and Non- intractable vomiting with nausea, unspecified vomiting type R11.2 [facility] [address] [place] [address] 68889- 1962 Aug, [facility] [address] [place] [address] 10884- 1250 Aug, Opioid use disorder, moderate, dependence F11.20 [facility] [address] [place] [address] 86010- 3790 Aug, [facility] [address] 31602- 5472 Jul, 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 and Opioid use disorder, moderate, dependence F11.20 [facility] [address] [place] [address] Jul, [facility] [address] [place] 35302762- 2546 Jul, [facility] [address] [place] [address] 47216- 1064 Jul, [facility] [address] 19114- 9395 Jul, Addiction to drug F19.20 and Chronic kidney disease, stage 3 N18.3 [facility] [address] [place] [address] Jul, Counseling on substance use and abuse Z71.89 [facility] [place] [address] [place] [address] 71625- 7239 Jul, Chronic kidney disease, stage 3 N18.3 [facility] [address] [place] [address] 43978- 2499 Jul, 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 ; Diarrhea, unspecified type R19.7 and Essential hypertension I10 [facility] [address] [place] [address] 36288- 1648 Jul, [facility] [address] [place] [address] 42436- 4638 Jun, [facility] [address] [place] [address] 05439- 4662 Jun, [facility] [address] [place] [address] 91612- 0025 Apr, 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 [facility] [address] [place] [address] 40706- 2745 Apr, Sore throat and laryngitis J06.0 and Non-intractable vomiting with nausea, unspecified vomiting type R11.2 [facility] [address] [place] [address] 65961- 7897 Apr, [facility] [address] [place] [address] 09340- 2324 Mar, [facility] [address] [place] [address] 03799- 8883 15 Feb, 2016 [facility] [address] [place] [address] 32969- 0305 Jan, [facility] [address] [place] [address] 15411- 5556 Jan, [facility] [address] [place] [address] 94409- 8193 December, 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 ; Gastroparesis K31.84 ; Mixed hyperlipidemia E78.2 ; Chronic kidney disease, stage 3 N18.3 ; Dysthymia F34.1 and Acute bilateral low back pain without sciatica M54.5 [facility] [address] [place] [address] 32919- 3775 December, [facility] [address] 28030- 1602 December, [facility] [address] [place] [address] 76517- 1692 Aug, Depression F32.9 and Gastroparesis K31.84 [facility] [facility] [address] [place] [address] 88405- 3287 Aug, Gastroparesis K31.84 [facility] [address] [place] [address] 56069- 2663 Jul, Recurrent UTI N39.0 ; Chronic kidney disease, stage 3 N18.3 and 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 [facility] [address] [place] [address] 83986- 3935 Jul, [facility] [id number] [place] [address] [id number] Jul, Dental examination Z01.20 and Dental caries K02.9 [facility] [address] [place] [address] 68384- 4231 Jul, [facility] [address] [address] Jul, Dysuria R30.0 ; Urinary tract infection N39.0 and Nausea R11.0 [facility] [address] [place] [address] 97230- 2937 Jun, Dysuria R30.0 [facility] [address] [place] [address] 98362- 9187 Jun, Dysuria R30.0 [facility] [address] [place] [address] 95459- 1324 Jun, Dysuria R30.0 [facility] [address] [place] [address] 29985- 4035 Jun, [facility] [address] [place] [address] 11479- 7999 Jun, Acute cystitis with hematuria N30.01 [facility] [address] [place] [address] 26107- 5563 May, [facility] [address] [place] [address] 37758- 4681 Apr, Diabetes mellitus without mention of complication, type I [ juvenile type], not stated as uncontrolled 250.01 ; Gastroparesis due to DM 250.60 ; Contraception management V25.9 and Renal insufficiency 593.9 [facility] [address] [place] [address] 66982- 1474 Apr, [facility] [address] [place] [address] 42770- 5040 Apr, [facility] [address] [place] [address] 40765- 7578 Mar, [facility] [address] [place] [address] 26827- 4124 Mar, Hyperlipidemia 272.4 and Hypertensive heart and chronic kidney disease, benign, without heart failure and with chronic kidney disease stage I through stage IV, or unspecified 404.10 [place] [address] [place] [address] 22908- 8670 Mar, Hyperlipidemia 272.4 ; Hyponatremia 276.1 ; 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 ; Hypertensive heart and chronic kidney disease, benign, without heart failure and with chronic kidney disease stage I through stage IV, or unspecified 404.10 ; Proteinuria 791.0 and Chronic kidney disease (CKD), stage III (moderate) 585.3 [address] [id number] [place] [address] 52559- 3123 Mar, [place] [id number] [place] [address] 59622- 2379 Mar, Elevated blood sugar level 790.29 [place] [id number] [place] [address] 26433- 5195 Mar, Low grade squamous intraepithelial lesion (LGSIL) on cervical Pap smear 795.03 [place] [id number] [place] [address] 04097- 5689 Mar, Amenorrhea 626.0 [place] [id number] [place] [address] 19634- 7922 Jan, Amenorrhea 626.0 ; Routine gynecological examination V72.31 and Screen for STD (sexually transmitted disease) V74.[address] [place] [address] 28802- 6900 Jan, Amenorrhea 626.0 [place] [id number] [place] [address] 16470- 7700 08 Jan, 2015 Routine gynecological examination V72.31 ; Screen for STD ( sexually transmitted disease) V74.5 ; Pap test, as part of routine gynecological examination V76.2 ; Breast cancer screening V76.10 and Amenorrhea 626.[address] [place] [address] 80061- 8494 December, [place] [id number] [place] [address] 81247- 9134 14 Dec, 2014 [facility] [place] [facility] [address] [id number] [place] [address] 4177 13 Dec, 2014 [facility] [place] [facility] [address] [id number] [place] [address]- 8129 30 Oct, 2014 [facility] [place] [facility] [address] [id number] [place] [address]- 1756 Oct, [facility] [place] [facility] [address] [id number] [place] [address]- 2684 Oct, [facility] [place] [facility] [address] [id number] [place] [address]- 1306 Oct, [facility] [place] [facility] [address] [id number] [place] [address]- 5096 Oct, [facility] [place] [facility] [address] [facility] [id number] [place] [address]- 4016 Oct, [facility] [place] [facility] [address] [id number] [place] [address]- 6637 Oct, [facility] [place] [facility] [address] [id number] [place] [address]- 6099 Oct, [facility] [place] [facility] [address] [facility] [id number] [place] [address]- 6683 Oct, [facility] [place] [facility] [address] [id number] [place] [address]- 6710 Oct, [facility] [place] [facility] [address] [id number], [place] [address]- 0278 Oct, [facility] [place] [facility] [address] [id number] [place] [address]- 5054 Sep, [facility] [place] [facility] [address] [id number], [place] [address]- 6858 Sep, [facility] [place] [facility] [address] [id number], [place] [address]- 3080 Sep, [facility] [place] [facility] [address] [id number] [place] [address]- 8617 Sep, [facility] [place] [facility] [address] [id number] [place] [address]- 9633 Sep, [facility] [place] [facility] [address] [id number] [place] [address]- 2376 16 Sep, 2014 [facility] [place] [facility] [address] [id number] [place] [address]- 0242 Sep, [facility] [place] [facility] [address] [id number] [place] [address]- 8136 Sep, [facility] [place] [facility] [address] [id number] [place] [address]- 0555 Sep, [facility] [place] [facility] [address] [id number] [place] [address]- 9771 Sep, [facility] [place] [facility] [address] [id number] [place] [address]- 2845 Sep, [facility] [place] [facility] [address] [id number] [place] [address]- 2669 Sep, [facility] [place] [facility] [address] [id number] [place] [address]- 4810 Sep, [facility] [place] [facility] [address] [id number] [place] [address]- 9933 Sep, [facility] [place] [facility] [address] [id number] [place] [address]- 7013 Sep, [facility] [place] [facility] [address] [id number] [place] [address]- 8926 Sep, [facility] [place] [facility] [address] [id number] [place] [address]- 7913 Sep, [facility] [place] [facility] [address] [id number] [place] [address]- 5029 Sep, [facility] [place] [facility] [address] [id number] [place] [address]- 0136 Sep, [facility] [place] [facility] [address] [id number] [place] 4445 Sep, [facility] [place] [facility] [address] [id number] [place] [address]- 5122 Aug, [facility] [place] [facility] [address] [id number] [place] [address]- 3653 Aug, [facility] [place] [facility] [address] [id number] [place] [address]- 7567 Aug, [facility] [place] [facility] [address] [id number] [place] [address]- 3718 Aug, [facility] [place] [facility] [address] [id number] [place] [address]- 4127 Aug, [facility] [place] [facility] [address] [id number] [place] [address]- 0190 Aug, [facility] [place] [facility] [address] [id number] [place] [address]- 5194 Aug, [facility] [place] [facility] [address] [id number] [place] [address]- 2196 Aug, [facility] [place] [facility] [address] [id number] [place] [address]- 9583 Aug, [facility] [place] [facility] [address] [id number] [place] [address]- 1245 Aug, [facility] [place] [facility] [address] [id number], [place] [address]- 2229 Aug, [facility] [place] [facility] [address] [id number] [place] [address]- 3110 Aug, [facility] [place] [facility] [address] [id number] [place] [address]- 9908 Jul, [facility] [place] [facility] [address] [id number] [place] [address]- 7826 Jul, [facility] [place] [facility] [address] [id number] [place] [address]- 5994 Jul, [facility] [place] [facility] [address] [id number] [place] [address]- 7251 Jul, [facility] [place] [facility] [address] [id number] [place] [address]- 9973 Jul, [facility] [place] [facility] [address] [id number] [place] [address]- 9797 Jul, [facility] [place] [facility] [address] [id number] [place] [address]- 5400 Jul, [facility] [place] [facility] [address] [id number] [place] [address]- 2538 Jul, [facility] [place] [facility] [address] [id number] [place] [address]- 3466 Jul, [facility] [place] [facility] [address] [id number] [place] [address]- 5814 Jul, [facility] [place] [facility] [address] [id number] [place] [address]- 5601 Jun, [facility] [place] [facility] [address] [id number] [place] [address]- 9428 31 Jun, 2014 [facility] [place] [facility] [address] [facility] [id number] [place] [address]- 6206 30 Jun, 2014 [facility] [place] [facility] [address] [id number] [place] [address]- 2080 30 Jun, 2014 [facility] [place] [facility] [address] [id number] [place] [address]- 6675 30 Jun, 2014 [facility] [place] [facility] [address] [id number] [place] [address]- 9374 30 Jun, 2014 [facility] [place] [facility] [address] [facility] [id number] [place] [address]- 0130 15 Jun, 2014 [facility] [place] [facility] [address] [id number] [place] [address]- 3055 15 Jun, 2014 [facility] [place] [facility] [address] [id number] [place] [address]- 3652 May, [facility] [place] [facility] [address] [id number] [place] [address]- 2811 May, [facility] [place] [facility] [address] [id number] [place] [address]- 4129 May, [facility] [place] [facility] [address] [id number] [place] [address]- 7175 May, [facility] [place] [facility] [address] [id number] [place] [address]- 6486 May, [facility] [place] [facility] [address] [id number] [place] [address]- 1502 May, [facility] [place] [facility] [address] [id number] [place] [address]- 1570 May, [facility] [place] [facility] [address] [id number] [place] [address]- 5231 May, [facility] [place] [facility] [address] [id number] [place] [address]- 9130 Apr, [facility] [place] [facility] [address] [id number] [place] [address]- 7608 Apr, [facility] [place] [facility] [address] [id number] [place] [address]- 4883 Apr, [facility] [place] [facility] [address] [id number] [place] [address]- 0515 Apr, [facility] [place] [facility] [address] [id number] [place] [address]- 2800 Mar, [facility] [place] [facility] [address] [id number] [place] [address]- 4363 Mar, [facility] [place] [facility] [address] [id number] [place] [address]- 6393 Mar, [facility] [place] [facility] [address] [id number] [place] [address]- 0424 Mar, [facility] [place] [facility] [address] [id number] [place] [address]- 3996 Mar, [facility] [place] [facility] [address] [id number] [place] [address]- 1170 Mar, [facility] [place] [facility] [address] [id number] [place] [address]- 4874 Jan, [facility] [place] [facility] [address] [id number] [place] [address]- 6522 Jan, [facility] [place] [facility] [address] [id number] [place] [address]- 1823 Jan, [facility] [place] [facility] [address] [id number] [place] [address]- 4907 Jan, [facility] [place] [facility] [address] [id number] [place] [address]- 3232 Jan, [facility] [place] [facility] [address] [id number] [place] [address]- 3821 Jan, [facility] [place] [facility] [address] [id number] [place] [address]- 5460 Jan, [facility] [place] [facility] [address] [id number] [place] [address]- 9869 Jan, [facility] [place] [facility] [address] [id number] [place] [address]- 1350 Jan, [facility] [place] [facility] [address] [id number] [place] [address]- 1343 Jan, [facility] [place] [facility] [address] [id number] [place] [address]- 0495 Jan, [facility] [place] [facility] [address] [id number] [place] [address]- 1040 Jan, [facility] [place] [facility] [address] [id number] [place] [address]- 6713 December, [facility] [place] [facility] [address] [id number] [place] [address]- 6643 December, [facility] [place] [facility] [address] [id number] [place] [address]- 6697 December, [facility] [place] [facility] [address] [id number] [place] [address]- 4456 December, [facility] [place] [facility] [address] [id number] [place] [address]- 9837 Dec, [facility] [place] [facility] [address] [id number] [place] [address]- 3261 Dec, [facility] [place] [facility] [address] [id number] [place] [address]- 8161 Dec, [facility] [place] [facility] [address] [id number] [place] [address]- 5096 Dec, [facility] [place] [facility] [address] [id number] [place] [address]- 3481 Dec, [facility] [place] [facility] [address] [id number] [place] [address]- 3585 Dec, [facility] [place] [facility] [address] [id number] [place] [address]- 4173 Dec, [facility] [place] [facility] [address] [id number] [place] [address]- 8932 Dec, [facility] [place] [facility] [address] [id number] [place] [address]- 2405 Dec, [facility] [place] [facility] [address] [id number] [place] [address]- 6512 Dec, [facility] [place] [facility] [address] [id number] [place] [address]- 5856 Dec, [facility] [place] [facility] [address] [id number] [place] [address]- 3306 Dec, [facility] [place] [facility] [address] [id number] [place] [address]- 4599 Dec, [facility] [place] [facility] [address] [id number] [place] [address]- 8379 Dec, [facility] [place] [facility] [address] [id number] [place] [address]- 5616 Oct, [facility] [place] [facility] [address] [id number] [place] [address]- 1574 Oct, [facility] [place] [facility] [address] [id number] [place] [address]- 3807 Oct, [facility] [place] [facility] [address] [id number] [place] [address]- 4644 Oct, [facility] [place] [facility] [address] [id number] [place] [address]- 4014 Oct, [facility] [place] [facility] [address] [id number] [place] [address]- 3168 Oct, [facility] [place] [facility] [address] [facility] [id number] [place] [id number] Oct, [facility] [place] [facility] [address] [id number] [place] [address]- 4605 Oct, [facility] [place] [facility] [address] [id number] [place] [address]- 4370 Oct, [facility] [place] [facility] [address] [id number] [place] [address]- 2113 Oct, [facility] [place] [facility] [address] [id number] [place] [address]- 9912 Sep, [facility] [place] [facility] [address] [id number] [place] 5277 Sep, [facility] [place] [facility] [address] [id number] [place] [address]- 7435 Sep, [facility] [place] [facility] [address] [id number] [place] 2152 Sep, [facility] [place] [facility] [address] [id number], [place] [address]- 5871 Sep, [facility] [address] [id number] [address]- 9259 Sep, [facility] [address] [id number] [address]- 3945 Aug, [facility] [address], [place] [address]- 4448 Aug, [facility] [address], [place] [address]- 0523 Jul, [facility] [address], [place] [address]- 8539 Jul, [facility] [address], [place] [address]- 8958 Jul, [facility] [address], [place] [address]- 4209 Jul, [facility] [address] [id number] [address]- 7226 Jul, IMMUNIZATIONS No Known Immunizations SOCIAL HISTORY Never Assessed REASON FOR VISIT Refill request PLAN OF CARE VITAL SIGNS MEDICATIONS Medication Instructions Dosage Frequency Start Date End Date Duration Status Lovastatin 40 MG Orally Once a day 1 tablet with a meal 24h Mar, 30 day(s) Active RESULTS No Results PROCEDURES [...]
--- OUTSIDE RECORDS SUMMARY | 2018-08-30 21:03 | XMS REPORT ---
Author Author NOEMY MORGAN Organization [facility] Address [address] [place] [address] Care Team Providers Care Human Service Specialist Name Role Phone NOEMY MORGAN Unavailable PROBLEMS Type Condition ICD9-CM Code [id number] Code Onset Dates Condition Status SNOMED Code Problem Essential hypertension I10 Active 14005781 Problem Addiction to drug F19.20 Active 967936534 Problem Diarrhea, unspecified type R19.7 Active 37994888 Problem CHI I (cervical intraepithelial neoplasia I) N87.0 Active 961237884 Problem Right acute serous otitis media, recurrence not specified H65.01 Active 163354861 Problem Irritable bowel syndrome with constipation K58.1 Active 121200112 Problem Encounter for therapeutic drug level monitoring Z51.81 Active 642592392 Problem Mild episode of recurrent major depressive disorder F33.0 Active 554462097 Problem Opioid use disorder, severe, in sustained remission F11.21 Active 43976424 Problem Long-term use of high-risk medication Z79.899 Active 267876864 Problem Recurrent UTI N39.0 Active 536142609 Problem Gastroparesis K31.84 Active 357336252 Problem Acute bilateral low back pain without sciatica M54.5 Active 761115896 Problem 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
--- OUTSIDE RECORDS SUMMARY | 2018-08-30 21:03 | XMS REPORT ---
Author Author ALVIN CARMEN [facility] Address [address] [place] [address] Care Team Providers Care Web Page Developer Name Role Phone NELLA ALVIN Unavailable PROBLEMS Type Condition ICD9-CM Code HEB44-[id number] Code Onset Dates Condition Status SNOMED Code Problem Essential hypertension I10 Active 09232527 Problem Addiction to drug F19.20 Active 009314346 Problem Diarrhea, unspecified type R19.7 Active 40623594 Problem Right acute serous otitis media, recurrence not specified H65.01 Active 125325536 Problem Mild episode of recurrent major depressive disorder F33.0 Active 853631452 Problem Encounter for therapeutic drug level monitoring Z51.81 Active 117675785 Problem Other senior living (current) drug therapy Z79.899 Active 130507759 Problem Opioid use disorder, severe, in sustained remission F11.21 Active 03763191 Problem Irritable bowel syndrome with constipation K58.1 Active 481751362 Problem Recurrent UTI N39.0 Active 814750719 Problem Gastroparesis K31.84 Active 527469544 Problem Acute bilateral low back pain without sciatica M54.5 Active 143110249 Problem Chronic kidney disease, stage 3 N18.3 Active 173325646 Problem Dysthymia F34.1 Active 56354534 Problem 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 Active 03949615 Problem Mixed hyperlipidemia E78.2 Active 246565217 ALLERGIES Substance Reaction Event Type Date Status Penicillin V Potassium rash Drug Allergy Sep, Active Cipro nausea and vomiting Drug Allergy Sep, Active Bactrim DS rash Drug Allergy Sep, Active SOCIAL HISTORY No smoking Hx information available PLAN OF CARE Activity Details Follow Up 4 Weeks Reason:Suboxone f/u VITAL SIGNS Height 66 in 2016-09-24 Weight 183 lbs 2016-09-24 Temperature 97.6 degrees Fahrenheit 2016-09-24 Heart Rate 84 bpm 2016-09-24 Respiratory Rate 18 2016-09-24 BMI 29.53 kg/m2 2016-09-24 Blood pressure systolic 132 mmHg 2016-09-24 Blood pressure diastolic 90 mmHg 2016-09-24 MEDICATIONS Medication Instructions Dosage Frequency Start Date End Date Duration Status Lovastatin 20 mg Orally Once a day 1 tablet with a meal 24h Mar, 30 day(s) Active Tylenol 8 Hour Active Humalog 100 UNIT/ML Subcutaneous pump as per pump inject Units by Subcutaneous route every hour per insulin pump Active Enalapril Maleate 10 mg Orally twice a day 1 tablet 12h Active Vitamin D (Ergocalciferol) 44222 UNIT Orally TWICE WEEKLY X8 WKS-AFTER 8 WEEKS TAKEN OTC VITAMIN D 2000 IU 1 capsule Mar, Active Vitamin B12 Active Suboxone 8-2 MG Sublingual Once a day 1.5 film under the tongue and allow to dissolve 24h Aug, Sep, 1 days Active Zofran ODT 4 MG Orally 3 times a day, prn take 1 tablets by Oral route every 8 hours PRN Nausea or Vomiting Sep, Active Fish Oil 1000 MG Orally Once a day 2 capsule 24h Active Glucagon Emergency 1 MG as directed Apr, Active Dicyclomine HCl 10 mg Orally 2 times a day prn 1 tablet Sep, Oct, 30 days Active RESULTS Name Result Date Reference Range URINE DRUG SCREEN (IN HOUSE) 2016-09-24 Lot # [id number] Exp date 03/2018 Control + COCAINE neg AMPH neg MTD neg THC neg OPIATE neg BENZO neg PCP neg BAR neg OXY neg MAMP neg TCA n/a BUP + MDMA neg PROCEDURES Procedure Date Ordered Related Diagnosis Body Site DRUG TEST PRSMV DIR OPT OBS Sep 24, 2016 Office Visit, Est Pt., Level 3 Sep 24, 2016 IMMUNIZATIONS No Known Immunizations
--- OUTSIDE RECORDS SUMMARY | 2018-08-30 21:04 | XMS REPORT ---
Author Author YANNICK JOSUE Organization [facility] Address [address] [place] [address] Care Team Providers Care Ceo And Founder Name Role Phone YANNICK JOSUE Unavailable PROBLEMS Type Condition ICD9-CM Code ECC08-OH Code Onset Dates Condition Status SNOMED Code Problem Essential hypertension I10 Active 17770951 Problem Addiction to drug F19.20 Active 460337810 Problem Diarrhea, unspecified type R19.7 Active 63654631 Problem Right acute serous otitis media, recurrence not specified H65.01 Active 870483949 Problem Mild episode of recurrent major depressive disorder F33.0 Active 745722101 Problem Encounter for therapeutic drug level monitoring Z51.81 Active 740491518 Problem Other terminal superintendent (current) drug therapy Z79.899 Active 985870731 Problem Opioid use disorder, severe, in sustained remission F11.21 Active 09195030 Problem Irritable bowel syndrome with constipation K58.1 Active 131550837 Problem Recurrent UTI N39.0 Active 986887020 Problem Gastroparesis K31.84 Active 594467775 Problem Acute bilateral low back pain without sciatica M54.5 Active 931787015 Problem Chronic kidney disease, stage 3 N18.3 Active 499713793 Problem Dysthymia F34.1 Active 01693279 Problem 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
--- OUTSIDE RECORDS SUMMARY | 2018-08-30 21:04 | XMS REPORT ---
Author Author KEYLA JONES [facility] [employer] Address Unknown Phone Unavailable Care Team Providers Care Superintendent Pier Name Role Phone KEYLA JONES Unavailable Allergies, Adverse Reactions, Alerts Substance Reaction [...] Active Problem Urinary frequency 788.41 Active Assessment Dental caries K02.9 Active Assessment Dental examination Z01.20 Active Problem Elevated blood pressure reading without diagnosis of hypertension 796.2 Active Problem Health examination of defined subpopulation V70.5 Active Medications Medication Code System Code Instructions Start Date End Date Status Dosage Levofloxacin [facility] [address]-15 750 MG Orally Once a day Jul 15, 2015 Jul 20, 2015 1 tablet Reglan [facility] [address]-81 5 MG Orally 4 times a day prn Apr 28, 2015 1 tablet Fish Oil [facility] [address]-07 1000 MG Orally Once a day 2 capsule Lovastatin [facility] [address]-34 20 MG Orally Once a day March 30, 2015 1 tablet with a meal Humalog [facility] [address]-68 100 UNIT/ML Subcutaneous pump as per pump inject Units by Subcutaneous route every hour per insulin pump Vitamin B12 [facility] [address]-05 not defined Vitamin D (Ergocalciferol) [facility] [address]-97 83745 UNIT Orally TWICE WEEKLY X8 WKS-AFTER 8 WEEKS TAKEN OTC VITAMIN D 2000 IU March 30, 2015 1 capsule Zofran ODT [facility] [address]-74 4 MG Orally 3 times a day, prn Sep 17, 2014 take 1 tablets by Oral route every 8 hours PRN Nausea or Vomiting Enalapril Maleate [facility] [address]-86 5 MG Orally Twice a day 1 tablet Procedures Procedure Coding System Code Date INTRAORL-PERIAPICAL 1 FILM 10702 CPT-4 D0220 Jul 20, 2015 EXTRAC ERUPTED TOOTH/EXPOSED ROOT CPT-4 D7140 Jul 20, 2015 LTD ORAL EVALUATION - PROBLEM FOCUS CPT-4 D0140 Jul 20, 2015 Vital Signs Date/Time: Jul 20, 2015 Blood Pressure Diastolic 86 mmHg Blood Pressure Systolic 131 mmHg Results No Known Results Summary Purpose [employer] Submission
--- OUTSIDE RECORDS SUMMARY | 2018-08-30 21:04 | XMS REPORT ---
Author Author CARLOTTA MIR Organization [facility] Address [address] [place] [address] Care Team Providers Care Geophysical Data Technician Name Role Phone NAMSHAMARCARLOTTA Unavailable PROBLEMS Type Condition ICD9-CM Code QLZ03-PC Code Onset Dates Condition Status SNOMED Code Problem Essential hypertension I10 Active 70812047 Problem Addiction to drug F19.20 Active 104212663 Problem Diarrhea, unspecified type R19.7 Active 96758656 Problem Right acute serous otitis media, recurrence not specified H65.01 Active 909896897 Problem Mild episode of recurrent major depressive disorder F33.0 Active 544421908 Problem Encounter for therapeutic drug level monitoring Z51.81 Active 145671874 Problem Other stacker attendant (current) drug therapy Z79.899 Active 023816976 Problem Opioid use disorder, severe, in sustained remission F11.21 Active 89053544 Problem Irritable bowel syndrome with constipation K58.1 Active 257169410 Problem Recurrent UTI N39.0 Active 197141725 Problem Gastroparesis K31.84 Active 709981512 Problem Acute bilateral low back pain without sciatica M54.5 Active 274899924 Problem Chronic kidney disease, stage 3 N18.3 Active 006629640 Problem Dysthymia F34.1 Active 38852355 Problem 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
--- OUTSIDE RECORDS SUMMARY | 2018-08-30 21:04 | XMS REPORT ---
Author Author CARLOTTA MIR Organization [facility] Address [address] [place] [address] Care Team Providers Care Assistant Cook Name Role Phone NAMSHAMARCARLOTTA Unavailable PROBLEMS Type Condition ICD9-CM Code UYY81-QU Code Onset Dates Condition Status SNOMED Code Problem Essential hypertension I10 Active 09886360 Problem Addiction to drug F19.20 Active 597431843 Problem Diarrhea, unspecified type R19.7 Active 69682915 Problem Right acute serous otitis media, recurrence not specified H65.01 Active 630765894 Problem Mild episode of recurrent major depressive disorder F33.0 Active 264823559 Problem Encounter for therapeutic drug level monitoring Z51.81 Active 216165003 Problem Other meterman (current) drug therapy Z79.899 Active 846742379 Problem Opioid use disorder, severe, in sustained remission F11.21 Active 38904189 Problem Irritable bowel syndrome with constipation K58.1 Active 253837785 Problem Recurrent UTI N39.0 Active 631229772 Problem Gastroparesis K31.84 Active 652558757 Problem Acute bilateral low back pain without sciatica M54.5 Active 959450391 Problem Chronic kidney disease, stage 3 N18.3 Active 763980341 Problem Dysthymia F34.1 Active 60621737 Problem 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
--- OUTSIDE RECORDS SUMMARY | 2018-08-30 21:04 | XMS REPORT ---
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 Active Problem Recurrent UTI N39.0 Active Problem Unspecified essential hypertension 401.9 Active Problem Abdominal pain, epigastric 789.06 Active Problem Dysuria R30.0 Active Problem Gastroparesis due to DM 250.60 Active Problem Health examination of defined subpopulation V70.5 Active Problem Unspecified constipation 564.00 Active Problem Abdominal pain, generalized 789.07 Active Problem Elevated blood pressure reading without diagnosis of hypertension 796.2 Active Problem Diabetes mellitus without mention of complication, type I [juvenile type], not stated as uncontrolled 250.01 Active Medications Medication Code System Code Instructions Start Date End Date Status Dosage Humalog [facility] [id number] 100 UNIT/ML Subcutaneous pump as per pump inject Units by Subcutaneous route every hour per insulin pump Results No Known Results Summary Purpose [employer] Submission
--- OUTSIDE RECORDS SUMMARY | 2018-08-30 21:04 | XMS REPORT ---
Author Author ALVIN CARMEN [facility] Address [address] [place] [address] Care Team Providers Care Supervisor Special Services Name Role Phone NELLA ALVIN Unavailable PROBLEMS Type Condition ICD9-CM Code [id number]-BQ Code Onset Dates Condition Status SNOMED Code Problem Essential hypertension I10 Active 54912116 Problem Addiction to drug F19.20 Active 567980831 Problem Diarrhea, unspecified type R19.7 Active 56069220 Problem Right acute serous otitis media, recurrence not specified H65.01 Active 859313730 Problem Mild episode of recurrent major depressive disorder F33.0 Active 636914104 Problem Encounter for therapeutic drug level monitoring Z51.81 Active 866631457 Problem Other terminal gauger (current) drug therapy Z79.899 Active 393832512 Problem Opioid use disorder, severe, in sustained remission F11.21 Active 29810245 Problem Irritable bowel syndrome with constipation K58.1 Active 208614499 Problem Recurrent UTI N39.0 Active 426406766 Problem Gastroparesis K31.84 Active 036160632 Problem Acute bilateral low back pain without sciatica M54.5 Active 781615811 Problem Chronic kidney disease, stage 3 N18.3 Active 154941421 Problem Dysthymia F34.1 Active 15958901 Problem 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
--- OUTSIDE RECORDS SUMMARY | 2018-08-30 21:04 | XMS REPORT ---
Author Author ALVIN CARMEN [facility] Address [address] [place] [address] Care Team Providers Care Business Management Manager Name Role Phone NELLA ALVIN Unavailable PROBLEMS Type Condition ICD9-CM Code UIW05-RY Code Onset Dates Condition Status SNOMED Code Problem Essential hypertension I10 Active 71301003 Problem Addiction to drug F19.20 Active 283740912 Problem Diarrhea, unspecified type R19.7 Active 54480543 Problem Mild episode of recurrent major depressive disorder F33.0 Active 492268968 Problem Right acute serous otitis media, recurrence not specified H65.01 Active 927128330 Problem Other jail (current) drug therapy Z79.899 Active 100906519 Problem Encounter for therapeutic drug level monitoring Z51.81 Active 493392037 Problem Opioid use disorder, severe, in sustained remission F11.21 Active 10384071 Problem Irritable bowel syndrome with constipation K58.1 Active 429568375 Problem 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 0.5 film under the tongue and allow to dissolve Aug, Active RESULTS No Results PROCEDURES No Known procedures IMMUNIZATIONS No Known Immunizations
--- OUTSIDE RECORDS SUMMARY | 2018-08-30 21:05 | XMS REPORT ---
Author Author NOEMY MORGAN Organization [facility] Address [address] [place] [address] Care Team Providers Care Product Development Scientist Name Role Phone NOEMY MORGAN Unavailable PROBLEMS Type Condition ICD9-CM Code ULW34-GI Code Onset Dates Condition Status SNOMED Code Problem Essential hypertension I10 Active 13681108 Problem Addiction to drug F19.20 Active 489865284 Problem Diarrhea, unspecified type R19.7 Active 47100765 Problem CHI I (cervical intraepithelial neoplasia I) N87.0 Active 778818556 Problem Right acute serous otitis media, recurrence not specified H65.01 Active 022087689 Problem Irritable bowel syndrome with constipation K58.1 Active 464904461 Problem Encounter for therapeutic drug level monitoring Z51.81 Active 993032742 Problem Mild episode of recurrent major depressive disorder F33.0 Active 928672623 Problem Opioid use disorder, severe, in sustained remission F11.21 Active 47800521 Problem Long-term use of high-risk medication Z79.899 Active 848577580 Problem Recurrent UTI N39.0 Active 345692961 Problem Gastroparesis K31.84 Active 255817777 Problem Acute bilateral low back pain without sciatica M54.5 Active 505012962 Problem 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 Active 65773736 Problem Mixed hyperlipidemia E78.2 Active 913517808 Problem Chronic kidney disease, stage 3 N18.3 Active 997633942 Problem Dysthymia F34.1 Active 54550693 ALLERGIES No Information ENCOUNTERS Encounter Location Date Diagnosis [facility] [id number] [address] Dec, [facility] [id number] [address] Oct, Opioid use disorder, severe, in early remission F11.21 [facility] [id number] [address] Oct, [facility] [address] [place] [address] 18217- 3133 Oct, Opioid use disorder, severe, in early remission F11.21 [facility] [address] [place] [address] 55433- 3656 Oct, [facility] [id number] [place] [address] 56715- 6107 Oct, [facility] [address] [place] [address] Oct, Opioid use disorder, severe, in sustained remission F11.21 [facility] [id number] [place] [address] 41757- 6135 Sep, [facility] [id number] [place] [address] 33358- 3341 Sep, [facility] [id number] [place] [address] 60837- 1724 Sep, Opioid use disorder, severe, in early remission F11.21 [facility] [id number] [place] [address] 84664- 3266 Aug, Opioid use disorder, severe, in early remission F11.21 [facility] [address] [place] [address] 74105- 7949 Jul, [facility] [id number] [place] [address] 83278- 7087 Jul, Chronic kidney disease, stage 3 N18.3 ; Dysthymia F34.1 and Opioid use disorder, severe, in sustained remission F11.21 [facility] [address] [place] [address] Jul, Opioid use disorder, severe, in sustained remission F11.21 [facility] [address] [address] Jul, Long-term use of high-risk medication Z79.899 and Chronic kidney disease, stage 3 N18.3 [facility] [address] [place] [address] 32686- 3802 Jul, Opioid use disorder, severe, in early remission F11.21 [facility] [id number] [place] [address] 91875- 8638 Jul, [facility] [id number] [place] [address] 68939- 3874 Jun, [facility] [id number] [place] [address] 10217- 6591 Jun, [place] [id number] [place] [address] 58968- 7070 Jun, Opioid use disorder, moderate, dependence F11.20 and Opioid use disorder, severe, in early remission F11.21 [place] [id number] [place] [address] 53015- 8131 Jun, [place] [id number] [place] [address] 46074- 7546 Jun, Long-term use of high-risk medication Z79.899 [place] [id number] [place] [address] 29323- 7601 Jun, CHI I (cervical intraepithelial neoplasia I) N87.0 [place] [id number] [place] [address] 30379- 6920 22 May, 2017 Opioid use disorder, severe, in early remission F11.21 [facility] [id number] [place] [address] 14251- 0293 18 May, 2017 Chronic kidney disease, stage 3 N18.3 [place] [id number] [place] [address] 86857- 2590 14 May, 2017 Chronic kidney disease, stage 3 N18.3 [facility] [address] [place] [address] 05 May, 2017 Opioid use disorder, severe, in sustained remission F11.21 [place] [address] [place] [address] 18097- 3914 Apr, LGSIL on Pap smear of cervix R87.612 [facility] [address] [place] [address] Apr, [facility] [id number] [place] [address] 32789- 4671 Apr, Opioid use disorder, severe, in early remission F11.21 [facility] [id number] [place] [address] 68901- 1238 Apr, Opioid use disorder, severe, in early remission F11.21 [facility] [id number] [place] [address] 11832- 6114 Apr, Opioid use disorder, severe, in early remission F11.21 [facility] [id number] [place] [address] 87312- 0379 Apr, Opioid use disorder, severe, in early remission F11.21 [facility] [id number] [place] [address] 65288- 0987 14 Apr, 2017 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 [facility] [id number] [place] [address] 43565- 0237 Apr, Opioid use disorder, severe, in early remission F11.21 [facility] [address] [place] [address] Apr, Opioid use disorder, severe, in sustained remission F11.21 [facility] [id number] [place] [address] 89219- 8631 09 Apr, 2017 Opioid use disorder, severe, in early remission F11.21 [facility] [id number] [place] [address] 67767- 3484 Apr, Mild episode of recurrent major depressive disorder F33.0 and Right acute serous otitis media, recurrence not specified H65.01 [facility] [id number] [place] [address] 20900- 5325 Mar, [place] [address] [address] 8208 Mar, Opioid use disorder, severe, in early remission F11.21 [facility] [id number] [place] [address] 03599- 1465 Mar, [facility] [address] [place] [address] Mar, Opioid use disorder, severe, in sustained remission F11.21 [facility] [address] [place] [address] Mar, Opioid use disorder, severe, in sustained remission F11.21 [facility] [id number] [place] [address] 97639- 4388 Mar, Opioid use disorder, severe, in early remission F11.21 [facility] [id number] [place] [address] 30279- 7077 Jan, Opioid use disorder, severe, in early remission F11.21 [facility] [address] [place] [address] Jan, Opioid use disorder, severe, in sustained remission F11.21 [facility] [address] [place] [address] Jan, Opioid use disorder, severe, in sustained remission F11.21 [facility] [address] [place] [address] 11905- 0935 Jan, Opioid use disorder, severe, in early remission F11.21 [facility] [address] [place] [address] Jan, Opioid use disorder, severe, in sustained remission F11.21 [facility] [address] [place] [address] 15209- 6947 December, Opioid use disorder, severe, in early remission F11.21 [facility] [address] [place] [address] December, Opioid use disorder, severe, in sustained remission F11.21 [facility] [address] [place] [address] 11955- 8762 December, Routine gynecological examination Z01.419 and Chronic kidney disease, stage 3 N18.3 [facility] [address] [place] [id number] [place] [address] 03288- 6263 December, Chronic kidney disease, stage 3 N18.3 ; 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 ; Gastroparesis K31.84 ; Essential hypertension I10 and Irritable bowel syndrome with constipation K58.1 [facility] [address] [place] [address] December, Opioid use disorder, severe, in sustained remission F11.21 [address] [id number] [place] [address] 58690- 2591 December, Opioid use disorder, severe, in early remission F11.21 [facility] [address] [place] [address] December, Opioid use disorder, severe, in sustained remission F11.21 [address] [place] [id number] [place] [address] 03490- 8544 December, Encounter for therapeutic drug level monitoring Z51.81 [facility] [address] [place] [address] December, Opioid use disorder, severe, in sustained remission F11.21 [facility] [address] [place] [address] Dec, Opioid use disorder, severe, in sustained remission F11.21 [address] [id number] [place] [address] 64184- 8114 Dec, Opioid use disorder, severe, in early remission F11.21 [facility] [address] [place] [id number] [place] [address] 93883- 3285 Dec, [facility] [address] [place] [address] Dec, Opioid use disorder, severe, in sustained remission F11.21 [facility] [address] [place] [id number] [place] [address] 80926- 9920 Dec, Opioid use disorder, severe, in early remission F11.21 [facility] [address] [place] [address] Dec, Opioid use disorder, severe, in sustained remission F11.21 [facility] [id number] [place] [address] 48967- 1688 Dec, 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 [facility] [id number] [place] [address] 19267- 2810 Dec, Opioid use disorder, severe, in sustained remission F11.21 ; Encounter for therapeutic drug level monitoring Z51.81 and Other terminal operator ( current) drug therapy Z79.899 [facility] [address] [place] [address] 31 Oct, 2016 Opioid use disorder, severe, in sustained remission F11.21 [place] [address] 63555- 8195 23 Oct, 2016 Opioid use disorder, severe, in early remission F11.21 [place] [address] 23933- 6963 15 Oct, 2016 [facility] [address] [place] [address] 15 Oct, 2016 Opioid use disorder, severe, in sustained remission F11.21 [place] [address] 40354- 7317 15 Oct, 2016 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 [place] [id number] [place] [address] 81971- 6933 14 Oct, 2016 Routine gynecological examination Z01.419 [place] [address] 95732- 0583 07 Oct, 2016 Opioid use disorder, severe, in early remission F11.21 [place] [address] 89714- 6552 06 Oct, 2016 Opioid use disorder, severe, in early remission F11.21 [place] [address] 19198- 3345 Oct, Opioid use disorder, severe, in early remission F11.21 [facility] [address] [place] [address] Oct, Opioid use disorder, severe, in sustained remission F11.21 [facility] [id number] [place] [address] 84645- 0956 24 Oct, 2016 Opioid use disorder, severe, in early remission F11.21 [facility] [id number] [place] [address] 06569- 9227 Oct, Opioid use disorder, severe, in early remission F11.21 [facility] [address] [place] [address] Oct, Opioid use disorder, severe, in sustained remission F11.21 [facility] [id number] [place] [address] 33324- 9876 Oct, Opioid use disorder, severe, in sustained remission F11.21 ; Encounter for therapeutic drug level monitoring Z51.81 and Other intermediate ( current) drug therapy Z79.899 [facility] [id number] [place] [address] 08275- 5654 16 Oct, 2016 [facility] [address] [place] [address] 14 Oct, 2016 Opioid use disorder, severe, in early remission F11.21 [facility] [address] [place] [address] 10 Oct, 2016 Opioid use disorder, severe, in early remission F11.21 [facility] [id number] [place] [address] 53897- 4767 09 Oct, 2016 Opioid use disorder, severe, in early remission F11.21 [facility] [address] [place] [address] 64433- 3771 08 Oct, 2016 [facility] [id number] [place] [address] 55236- 4792 07 Oct, 2016 [facility] [id number] [place] [address] 39902- 7381 Oct, [facility] [address] [place] [address] Oct, Opioid use disorder, severe, in early remission F11.21 [facility] [id number] [place] [address] 16953- 1499 Sep, Opioid use disorder, severe, in early remission F11.21 [facility] [address] [place] [address] Sep, Opioid use disorder, severe, in early remission F11.21 [facility] [address] 29402- 3326 Sep, Opioid use disorder, severe, in early remission F11.21 ; Other terminal operator (current) drug therapy Z79.899 and Encounter for therapeutic drug level monitoring Z51.[address] 06368- 6559 Sep, [facility] [address] [place] [address] 97003- 8193 Sep, [facility] [address] [place] [address] 65782- 5850 Sep, Opioid use disorder, severe, 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 ; 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 ; Chronic kidney disease, stage 3 N18.3 ; Essential hypertension I10 and Irritable bowel syndrome with constipation K58.1 [facility] [address] [place] [address] Sep, Opioid use disorder, severe, in early remission F11.21 [facility] [address] [place] [address] Sep, Opioid use disorder, severe, in early remission F11.21 [facility] [address] [place] [id number] [place] [address] 80455- 2103 Sep, Opioid use disorder, moderate, dependence F11.20 [facility] [address] [place] [id number] [place] [address] 14761- 5760 05 Sep, 2016 Opioid use disorder, moderate, dependence F11.20 [facility] [address] [place] [address] Sep, Opioid use disorder, severe, in early remission F11.21 [facility] [address] 82189- 5334 Sep, Opioid use disorder, severe, 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 [facility] [address] [place] [address] Aug, Opioid use disorder, severe, in early remission F11.21 [facility] [address] 29850- 8111 Aug, Opioid use disorder, moderate, dependence F11.20 [facility] [address] [place] [address] 66722 -1622 Aug, Bug bite without infection, initial encounter W57.XXXA [address] 44520- 5488 Aug, Opioid use disorder, moderate, dependence F11.20 [facility] [address] [place] [address] Aug, [address] 69655- 1506 Aug, Opioid use disorder, severe, 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 ; Other terminal operator (current) drug therapy Z79.899 ; Encounter for therapeutic drug level monitoring Z51.81 and 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 [facility] [address] [place] [address] 15 Aug, 2016 [facility] [address] 04558- 6959 15 Aug, 2016 Opioid use disorder, moderate, dependence F11.20 ; Other intermediate (current) drug therapy Z79.899 and Encounter for therapeutic drug level monitoring Z51.81 [facility] [address] 19228- 1578 13 Aug, [address] 16520- 9568 09 Aug, 2016 Non-intractable vomiting with nausea, unspecified vomiting type R11.2 [facility] [id number] [place] [address] 47124- 8705 Aug, Opioid use disorder, moderate, dependence F11.20 and Non- intractable vomiting with nausea, unspecified vomiting type R11.2 [facility] [id number] [place] [address] 04287- 2570 Aug, [facility] [address] 75589- 4685 Aug, Opioid use disorder, moderate, dependence F11.20 [facility] [address] 44718- 4656 Aug, [facility] [id number] [place] [address] 62689- 8210 Jul, 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 and Opioid use disorder, moderate, dependence F11.20 [facility] [address] [place] [address] Jul, [facility] [id number] [place] [address] 11247- 5957 Jul, [facility] [id number] [place] [address] 14733- 9822 Jul, [facility] [id number] [place] [address] 26965- 9846 Jul, Addiction to drug F19.20 and Chronic kidney disease, stage 3 N18.3 [facility] [address] [place] [address] Jul, Counseling on substance use and abuse Z71.89 [facility] [id number] [place] [address] 02287- 6867 Jul, Chronic kidney disease, stage 3 N18.3 [facility] [id number] [place] [address] 09059- 5503 Jul, 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 ; Diarrhea, unspecified type R19.7 and Essential hypertension I10 [facility] [id number] [place] [address] 73753- 3720 Jul, [facility] [id number] [place] [address] 99121- 9250 Jun, [facility] [id number] [place] [address] 58132- 7384 Jun, [facility] [address] 16841- 9902 Apr, 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 [facility] [id number] [place] [address] 39646- 2356 Apr, Sore throat and laryngitis J06.0 and Non-intractable vomiting with nausea, unspecified vomiting type R11.2 [facility] [id number] [place] [address] 25410- 7824 Apr, [facility] [id number] [place] [address] 19579- 9277 Mar, [facility] [id number] [place] [address] 99365- 6914 Jan, [facility] [id number] [place] [address] 49354- 9592 Jan, [facility] [id number] [place] [address] 45534- 5427 Jan, [facility] [id number] [place] [address] 69117- 1356 December, 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 ; Gastroparesis K31.84 ; Mixed hyperlipidemia E78.2 ; Chronic kidney disease, stage 3 N18.3 ; Dysthymia F34.1 and Acute bilateral low back pain without sciatica M54.5 [facility] [id number] [place] [address] 32360- 9995 December, [facility] [address] [place] [address]- 6125 December, [facility] [address] 78192- 4700 Aug, Depression F32.9 and Gastroparesis K31.84 [facility] [address] 43154- 0717 Aug, Gastroparesis K31.84 [facility] [address] 82550- 5226 Jul, Recurrent UTI N39.0 ; Chronic kidney disease, stage 3 N18.3 and 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 [place] [address] 40139- 4088 Jul, [facility] [address] [id number] Jul, Dental examination Z01.20 and Dental caries K02.9 [facility] [address] 81867- 8809 Jul, [facility] [address] 05182 -5587 Jul, Dysuria R30.0 ; Urinary tract infection N39.0 and Nausea R11.0 [facility] [id number] [place] [address] 60707- 4814 Jun, Dysuria R30.0 [facility] [address] 56342- 3023 Jun, Dysuria R30.0 [facility] [address] 55052- 0149 Jun, Dysuria R30.0 [facility] [address] 00395- 1321 19 Jun, 2015 [facility] [address] 38234- 3262 Jun, Acute cystitis with hematuria N30.01 [address] [address]- 0473 May, [place] [id number] [place] [address] 95573- 3584 Apr, Diabetes mellitus without mention of complication, type I [ juvenile type], not stated as uncontrolled 250.01 ; Gastroparesis due to DM 250.60 ; Contraception management V25.9 and Renal insufficiency 593.9 [place] [id number] [place] [address] 70796- 2442 Apr, [place] [id number] [place] [address] 45037- 4515 Apr, [place] [id number] [place] [address] 50734- 5077 Mar, [place] [id number] [place] [address] 40420- 8964 Mar, Hyperlipidemia 272.4 and Hypertensive heart and chronic kidney disease, benign, without heart failure and with chronic kidney disease stage I through stage IV, or unspecified 404.10 [address] [place] [address] 99303- 5312 Mar, Hyperlipidemia 272.4 ; Hyponatremia 276.1 ; 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 ; Hypertensive heart and chronic kidney disease, benign, without heart failure and with chronic kidney disease stage I through stage IV, or unspecified 404.10 ; Proteinuria 791.0 and Chronic kidney disease (CKD), stage III (moderate) 585.3 [address] [address]- 6924 Mar, [place] [id number] [place] [address] 17925- 3565 Mar, Elevated blood sugar level 790.29 [address] [place] [address] 79659- 3425 Mar, Low grade squamous intraepithelial lesion (LGSIL) on cervical Pap smear 795.03 [facility] [address] [id number] Mar, Amenorrhea 626.0 [facility] [id number] [address] Jan, Amenorrhea 626.0 ; Routine gynecological examination V72.31 and Screen for STD (sexually transmitted disease) V74.5 [facility] [id number] [address] Jan, Amenorrhea 626.0 [facility] [address] [id number] [place] [address] 08 Jan, 2015 Routine gynecological examination V72.31 ; Screen for STD ( sexually transmitted disease) V74.5 ; Pap test, as part of routine gynecological examination V76.2 ; Breast cancer screening V76.10 and Amenorrhea 626.0 [facility] [id number] [address] December, [facility] [id number] [address] Dec, [facility] [id number] [address] Dec, [facility] [id number] [id number] [address] Oct, [facility] [id number] [id number] [address] Oct, [facility] [id number] [id number] [address] Oct, [facility] [id number] [address] Oct, [facility] [id number] [address] Oct, [facility] [id number] [address] Oct, [facility] [place] [facility] [address] [id number] [place] [address] Oct, [facility] [place] [facility] [address] [id number] [place] [address]- [address] Oct, [facility] [place] [facility] [address] [id number] [place] [address] 9048 Oct, [facility] [place] [facility] [address] [id number] [place] [address]- 8589 Oct, [facility] [place] [facility] [address] [id number] [place] [address]- 8305 Oct, [facility] [place] [facility] [address] [id number] [place] [address] Sep, [facility] [place] [facility] [address] [id number] [place] [address]- 6023 Sep, [facility] [place] [facility] [address] [id number] [place] [address]- 0135 Sep, [facility] [place] [facility] [address] [id number] [place] [address]- 4008 Sep, [facility] [place] [facility] [address] [id number] [place] [address]- 1184 Sep, [facility] [place] [facility] [address] [id number] [place] [address]- 8430 Sep, [facility] [place] [facility] [address] [id number], [place] [address]- 7038 Sep, [facility] [place] [facility] [address] [id number] [place] [address]- 7725 Sep, [facility] [place] [facility] [address] [id number] [place] [address]- 3368 Sep, [facility] [place] [facility] [address] [id number], [place] [address]- [address] Sep, [facility] [place] [facility] [address] [id number] [place] [address]- 8334 Sep, [facility] [place] [facility] [address] [id number] [place] [address]- 9337 Sep, [facility] [place] [facility] [address] [id number] [place] [address]- 3911 Sep, [facility] [place] [facility] [address] [id number] [place] [address]- 1351 Sep, [facility] [place] [facility] [address] [id number] [place] [address]- 2090 Sep, [facility] [place] [facility] [address] [id number] [place] [address]- 4907 Sep, [facility] [place] [facility] [address] [id number] [place] [address]- 3665 Sep, [facility] [place] [facility] [address] [id number] [place] [address]- 7342 Sep, [facility] [place] [facility] [address] [id number] [place] [address]- 2449 Sep, [facility] [place] [facility] [address] [id number] [place] [address]- 8099 Sep, [facility] [place] [facility] [address] [id number] [place] [address]- 7761 Aug, [facility] [place] [facility] [address] [id number] [place] [address]- 0174 Aug, [facility] [place] [facility] [address] [id number] [place] [address]- 0757 Aug, [facility] [place] [facility] [address] [id number] [place] [address]- 9123 Aug, [facility] [place] [facility] [address] [id number] [place] [address]- 8779 Aug, [facility] [place] [facility] [address] [id number] [place] [address]- [address]58 07 Aug, 2014 [facility] [place] [facility] [address] [id number] [place] [address]- 6865 Aug, [facility] [place] [facility] [address] [id number] [place] [address] Aug, [facility] [place] [facility] [address] [facility] [id number] [place] [address] Aug, [facility] [place] [facility] [address] [id number] [place] [address] Aug, [facility] [place] [facility] [address] [id number] [place] [address]- 7393 Aug, [facility] [place] [facility] [address] [id number] [place] [address]- 4533 Aug, [facility] [place] [facility] [address] [id number] [place] [address]- 2407 Jul, [facility] [place] [facility] [address] [id number] [place] [address]- 0299 Jul, [facility] [place] [facility] [address] [id number] [place] [address]- 6807 Jul, [facility] [place] [facility] [address] [id number] [place] [address]- 9328 Jul, [facility] [place] [facility] [address] [id number], [place] [address]- 4[address] Jul, [facility] [place] [facility] [address] [id number], [place] [address]- 2799 Jul, [facility] [place] [facility] [address] [id number] [place] [address]- 9201 Jul, [facility] [place] [facility] [address] [id number] [address]- 5529 Jul, [facility] [place] [facility] [address] [id number], [place] [address]- 6049 Jul, [facility] [place] [facility] [address] [id number] [place] [address]- 1626 04 Jul, 2014 [facility] [place] [facility] [address] [id number] [place] [address]- 2096 Jun, [facility] [place] [facility] [address] [id number] [place] [address]- 1074 Jun, [facility] [place] [facility] [address] [id number] [place] [address]- 9916 30 Jun, 2014 [facility] [place] [facility] [address] [id number] [place] [address]- 0350 Jun, [facility] [place] [facility] [address] [id number] [place] [address]- 6382 Jun, [facility] [place] [facility] [address] [id number] [place] [address]- 9329 Jun, [facility] [place] [facility] [address] [id number] [place] [address]- 3537 Jun, [facility] [place] [facility] [address] [id number] [place] [address]- 9863 15 Jun, 2014 [facility] [place] [facility] [address] [id number] [place] [address]- 7844 22 May, 2013 [facility] [place] [facility] [address] [id number] [place] [address]- 9385 22 May, 2013 [facility] [place] [facility] [address] [id number] [place] [address]- 2549 18 Sep, 2013 [facility] [place] [facility] [address] [id number] [place] [address]- 2986 18 Sep, 2013 [facility] [place] [facility] [address] [id number] [place] [address]- 3098 09 Sep, 2013 [facility] [place] [facility] [address] [id number] [place] [address]- 4789 08 Sep, 2013 [facility] [place] [facility] [address] [id number] [place] [address]- 3090 May, [facility] [place] [facility] [address] [id number] [place] [address]- 3752 May, [facility] [place] [facility] [address] [id number] [place] [address]- 1879 Apr, [facility] [place] [facility] [address] [id number] [place] [address]- 8639 Apr, [facility] [place] [facility] [address] [id number] [place] [address]- 3151 Apr, [facility] [place] [facility] [address] [id number] [place] [address]- 9814 Apr, [facility] [place] [facility] [address] [id number] [place] [address]- 3529 Mar, [facility] [place] [facility] [address] [id number] [place] [address]- 3228 Mar, [facility] [place] [facility] [address] [id number] [place] [address]- 4690 Mar, [facility] [place] [facility] [address] [id number] [place] [address]- 5377 Mar, [facility] [place] [facility] [address] [id number] [place] [address]- 9631 Mar, [facility] [place] [facility] [address] [id number] [place] [address]- 8212 Mar, [facility] [place] [facility] [address] [id number] [place] [address]- 4709 Jan, [facility] [place] [facility] [address] [id number] [place] [address]- 0790 Jan, [facility] [place] [facility] [address] [id number] [place] [address]- 7326 Jan, [facility] [place] [facility] [address] [id number] [place] [address]- 5810 Jan, [facility] [place] [facility] [address] [id number] [place] [address]- 3321 Jan, [facility] [place] [facility] [address] [id number] [place] [address]- 4944 Jan, [facility] [place] [facility] [address] [id number] [place] [address]- 8044 Jan, [facility] [place] [facility] [address] [id number] [place] [address]- 6641 Jan, [facility] [place] [facility] [address] [id number] [place] [address]- 1763 Jan, [facility] [place] [facility] [address] [id number] [place] [address]- 3421 Jan, [facility] [place] [facility] [address] [id number] [place] [address]- 8358 Jan, [facility] [place] [facility] [address] [id number] [place] [address]- 4303 Jan, [facility] [place] [facility] [address] [id number] [place] [address]- 5584 December, [facility] [place] [facility] [address] [id number] [place] [address]- 9689 December, [facility] [place] [facility] [address] [id number] [place] [address]- 9746 December, [facility] [place] [facility] [address] [id number] [place] [address]- 4321 December, [facility] [place] [facility] [address] [id number] [place] [address]- 3484 Dec, [facility] [place] [facility] [address] [id number] [place] [address]- 8206 Dec, [facility] [place] [facility] [address] [id number] [place] [address]- 3290 Dec, [facility] [place] [facility] [address] [id number] [place] [address]- 1651 Dec, [facility] [place] [facility] [address] [id number] [place] [address]- 0438 Dec, [facility] [place] [facility] [address] [id number] [place] [address]- 7043 Dec, [facility] [place] [facility] [address] [id number] [place] [address]- 7523 Dec, [facility] [place] [facility] [address] [id number] [place] [address]- 8195 Dec, [facility] [place] [facility] [address] [id number] [place] [address]- 3781 Dec, [facility] [place] [facility] [address] [id number] [place] [address]- 0643 Dec, [facility] [place] [facility] [address] [id number] [place] [address]- 0775 Dec, [facility] [place] [facility] [address] [id number] [place] [address]- 4658 Dec, [facility] [place] [facility] [address] [id number] [place] [address]- 5114 Dec, [facility] [place] [facility] [address] [id number] [place] [address]- 4600 Dec, [facility] [place] [facility] [address] [id number] [place] [address]- 5260 Oct, [facility] [place] [facility] [address] [id number] [place] [address]- 1746 Oct, [facility] [place] [facility] [address] [id number] [place] [address]- 3481 Oct, [facility] [place] [facility] [address] [id number] [place] [address]- 4816 Oct, [facility] [place] [facility] [address] [id number] [place] [address]- 8669 Oct, [facility] [place] [facility] [address] [id number] [place] [address]- 7835 Oct, [facility] [place] [facility] [address] [id number] [place] [id number] Oct, [facility] [place] [facility] [address] [id number] [place] [address]- 5948 Oct, [facility] [place] [facility] [address] [id number] [place] [address]- 7848 Oct, [facility] [place] [facility] [address] [id number] [place] [address]- 2916 Oct, [facility] [place] [facility] [address] [id number] [place] [address]- 0028 Sep, [facility] [place] [facility] [address] [id number] [place] [address]- 2463 Sep, [facility] [place] [facility] [address] [id number] [place] [address]- 7333 Sep, [facility] [place] [facility] [address] [id number] [place] [address]- 2892 Sep, [facility] [place] [facility] [address] [id number] [place] [address]- 5751 Sep, [facility] [place] [facility] [address] [id number], [place] [address]- 5542 Sep, [facility] [place] [facility] [address] [id number], [place] [address]- 1325 Aug, [facility] [place] [facility] [address] [id number], [place] [address]- 1426 18 Aug, 2013 [facility] [place] [facility] [address] [id number] [place] [address]- 4539 Jul, [facility] [place] [facility] [address] [id number], [place] [address]- 9074 Jul, [facility] [place] [facility] [address] [id number][place] [address]10 Jul, [facility] [place] [facility] [address] [id number], [place] [address]- 6606 Jul, [facility] [address] [facility] [id number] [place] [address]- 9956 Jul, IMMUNIZATIONS No Known Immunizations SOCIAL HISTORY Never Assessed REASON FOR VISIT Suboxone RX (02/25-03/11) PLAN OF CARE VITAL SIGNS MEDICATIONS Medication Instructions Dosage Frequency Start Date End Date Duration Status Suboxone 8-2 MG Sublingual Once a day 2 film under the tongue and allow to dissolve 24h Aug, 15 days Active RESULTS No Results [...]
--- OUTSIDE RECORDS SUMMARY | 2018-08-30 21:06 | XMS REPORT ---
Author Author CARLOTTA MIR [facility] Address [address] [place] [address] Care Team Providers Care Electronic Repair Troubleshooter Name Role Phone CARLOTTA MIR Unavailable PROBLEMS Type Condition ICD9-CM Code LRB74-VU Code Onset Dates Condition Status SNOMED Code Problem Essential hypertension I10 Active 79175268 Problem Addiction to drug F19.20 Active 553304096 Problem Diarrhea, unspecified type R19.7 Active 89230974 Problem CHI I (cervical intraepithelial neoplasia I) N87.0 Active 210462204 Problem Right acute serous otitis media, recurrence not specified H65.01 Active 912550035 Problem Irritable bowel syndrome with constipation K58.1 Active 648897512 Problem Encounter for therapeutic drug level monitoring Z51.81 Active 196501786 Problem Mild episode of recurrent major depressive disorder F33.0 Active 604801794 Problem Opioid use disorder, severe, in sustained remission F11.21 Active 40458258 Problem Long-term use of high-risk medication Z79.899 Active 016110280 Problem Recurrent UTI N39.0 Active 863356741 Problem Gastroparesis K31.84 Active 634840642 Problem Acute bilateral low back pain without sciatica M54.5 Active 289570110 Problem 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 Active 66423771 Problem Mixed hyperlipidemia E78.2 Active 802713393 Problem Chronic kidney disease, stage 3 N18.3 Active 765826363 Problem Dysthymia F34.1 Active 77729864 ALLERGIES No Information ENCOUNTERS Encounter Location Date Diagnosis [facility] [address] [facility] [id number], [place] [address] Dec, [facility] [address] [facility] [id number], [place] [address] Oct, [facility] [address] [facility] [id number], [place] [address] Oct, Opioid use disorder, severe, in early remission F11.21 [facility] [address] [address] Oct, [facility] [id number] [place] [address] 01578- 9543 Oct, Opioid use disorder, severe, in early remission F11.21 [facility] [id number] [place] [address] 54403- 3791 Oct, [facility] [id number] [place] [address] 90861- 8334 Oct, [facility] [address] [place] [address] Oct, Opioid use disorder, severe, in sustained remission F11.21 [facility] [id number] [place] [address] 68343- 5203 Sep, [facility] [id number] [place] [address] 52847- 2558 Sep, [facility] [id number] [place] [address] 39287- 5547 Sep, Opioid use disorder, severe, in early remission F11.21 [facility] [id number] [place] [address] 94572- 2835 Aug, Opioid use disorder, severe, in early remission F11.21 [facility] [id number] [place] [address] 53021- 0563 Jul, [facility] [id number] [place] [address] 64917- 1400 Jul, Chronic kidney disease, stage 3 N18.3 ; Dysthymia F34.1 and Opioid use disorder, severe, in sustained remission F11.21 [facility] [address] [place] [address] Jul, Opioid use disorder, severe, in sustained remission F11.21 [facility] [id number] [place] [address] 28004- 6080 Jul, Long-term use of high-risk medication Z79.899 and Chronic kidney disease, stage 3 N18.3 [facility] [id number] [place] [address] 47784- 1504 Jul, Opioid use disorder, severe, in early remission F11.21 [facility] [id number] [place] [address] 02331- 5763 Jul, [facility] [id number] [place] [address] 66395- 9088 Jun, [facility] [id number] [place] [address] 76423- 5893 Jun, [facility] [id number] [place] [address] 14135- 2702 Jun, Opioid use disorder, moderate, dependence F11.20 and Opioid use disorder, severe, in early remission F11.21 [facility] [id number] [place] [address] 03659- 9451 Jun, [facility] [id number] [place] [address] 83427- 5877 Jun, Long-term use of high-risk medication Z79.899 [facility] [id number] [place] [address] 78352- 6169 Jun, CHI I (cervical intraepithelial neoplasia I) N87.0 [facility] [id number] [place] [address] 70925- 7095 May, Opioid use disorder, severe, in early remission F11.21 [facility] [id number] [place] [address] 18164- 4143 18 May, 2017 Chronic kidney disease, stage 3 N18.3 [place] [id number] [place] [address] 65442- 6748 14 May, 2017 Chronic kidney disease, stage 3 N18.3 [facility] [address] [place] [address] May, Opioid use disorder, severe, in sustained remission F11.21 [facility] [id number] [place] [address] 92230- 9799 Apr, LGSIL on Pap smear of cervix R87.612 [facility] [address] [place] [address] Apr, [facility] [address] 93720- 4155 Apr, Opioid use disorder, severe, in early remission F11.21 [facility] [id number] [place] [address] 65212- 3034 Apr, Opioid use disorder, severe, in early remission F11.21 [facility] [id number] [place] [address] 74594- 0328 Apr, Opioid use disorder, severe, in early remission F11.21 [facility] [id number] [place] [address] 49712- 6711 Apr, Opioid use disorder, severe, in early remission F11.21 [facility] [id number] [place] [address] 71280- 7021 14 Apr, 2017 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 [facility] [id number] [place] [address] 16401- 0344 Apr, Opioid use disorder, severe, in early remission F11.21 [facility] [address] [place] [address] Apr, Opioid use disorder, severe, in sustained remission F11.21 [facility] [id number] [place] [address] 08653- 8289 09 Apr, 2017 Opioid use disorder, severe, in early remission F11.21 [facility] [id number] [place] [address] 49696- 3783 02 Apr, 2017 Mild episode of recurrent major depressive disorder F33.0 and Right acute serous otitis media, recurrence not specified H65.01 [facility] [address], [place] [address] Mar, [facility] [address], [place] [address] Mar, Opioid use disorder, severe, in early remission F11.21 [facility] [address], [place] [address] 3986 Mar, [facility] [address] [place] [address] Mar, Opioid use disorder, severe, in sustained remission F11.21 [facility] [address] [place] [address] Mar, Opioid use disorder, severe, in sustained remission F11.21 [facility] [id number] [place] [address] 42889- 1462 Mar, Opioid use disorder, severe, in early remission F11.21 [facility] [id number] [place] [address] 32652- 3935 Jan, Opioid use disorder, severe, in early remission F11.21 [facility] [address] [place] [address] Jan, Opioid use disorder, severe, in sustained remission F11.21 [facility] [address] [place] [address] Jan, Opioid use disorder, severe, in sustained remission F11.21 [facility] [address], [place] [address] Jan, Opioid use disorder, severe, in early remission F11.21 [facility] [address] [place] [address] Jan, Opioid use disorder, severe, in sustained remission F11.21 [facility] [id number] [place] [address] 57615- 5687 December, Opioid use disorder, severe, in early remission F11.21 [facility] [address] [place] [address] December, Opioid use disorder, severe, in sustained remission F11.21 [facility] [id number] [place] [address] 45231- 8171 17 Dec, 2016 Routine gynecological examination Z01.419 and Chronic kidney disease, stage 3 N18.3 [facility] [id number] [place] [address] 37515- 3400 December, Chronic kidney disease, stage 3 N18.3 ; 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 ; Gastroparesis K31.84 ; Essential hypertension I10 and Irritable bowel syndrome with constipation K58.1 [facility] [address] [place] [address] December, Opioid use disorder, severe, in sustained remission F11.21 [facility] [id number] [place] [address] 92663- 3253 December, Opioid use disorder, severe, in early remission F11.21 [facility] [address] [place] [address] December, Opioid use disorder, severe, in sustained remission F11.21 [facility] [address] [place] [id number] [place] [address] 39609- 7529 December, Encounter for therapeutic drug level monitoring Z51.81 [facility] [address] [place] [address] December, Opioid use disorder, severe, in sustained remission F11.21 [facility] [address] [place] [address] Dec, Opioid use disorder, severe, in sustained remission F11.21 [facility] [address] [place] [id number] [place] [address] 93599- 6610 Dec, Opioid use disorder, severe, in early remission F11.21 [facility] [address] [place] [id number] [place] [address] 67432- 2564 Dec, [facility] [address] [place] [address] Dec, Opioid use disorder, severe, in sustained remission F11.21 [facility] [address] [place] [id number] [place] [address] 69639- 1017 Dec, Opioid use disorder, severe, in early remission F11.21 [facility] [address] [place] [address] 06 Dec, 2016 Opioid use disorder, severe, in sustained remission F11.21 [facility] [id number] [place] [address] 50391- 3435 Dec, 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 [facility] [id number] [place] [address] 68216- 1739 Dec, Opioid use disorder, severe, in sustained remission F11.21 ; Encounter for therapeutic drug level monitoring Z51.81 and Other skilled nursing ( current) drug therapy Z79.899 [facility] [address] [place] [address] Oct, Opioid use disorder, severe, in sustained remission F11.21 [facility] [id number] [place] [address] 95884- 7282 23 Oct, 2016 Opioid use disorder, severe, in early remission F11.21 [facility] [id number] [place] [address] 16466- 8533 15 Oct, 2016 [facility] [address] [place] [address] 15 Oct, 2016 Opioid use disorder, severe, in sustained remission F11.21 [facility] [id number] [place] [address] 71088- 9815 15 Oct, 2016 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 [facility] [id number] [place] [address] 36497- 6186 14 Oct, 2016 Routine gynecological examination Z01.419 [facility] [id number] [place] [address] 41370- 2950 07 Oct, 2016 Opioid use disorder, severe, in early remission F11.21 [facility] [id number] [place] [address] 27479- 5789 06 Oct, 2016 Opioid use disorder, severe, in early remission F11.21 [facility] [address], [place] [address]- 6686 06 Oct, 2016 Opioid use disorder, severe, in early remission F11.21 [facility] [address] [place] [address] 02 Oct, 2016 Opioid use disorder, severe, in sustained remission F11.21 [facility] [id number] [place] [address] 70973- 0041 24 Oct, 2016 Opioid use disorder, severe, in early remission F11.21 [facility] [id number] [place] [address] 46038- 2864 23 Oct, 2016 Opioid use disorder, severe, in early remission F11.21 [facility] [address] [place] [address] 22 Oct, 2016 Opioid use disorder, severe, in sustained remission F11.21 [facility] [id number] [place] [address] 40281- 1413 20 Oct, 2016 Opioid use disorder, severe, in sustained remission F11.21 ; Encounter for therapeutic drug level monitoring Z51.81 and 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 [facility] [id number] [place] [address] 74101- 8577 16 Oct, 2016 [facility] [address] [place] [address] 14 Oct, 2016 Opioid use disorder, severe, in early remission F11.21 [facility] [address] [place] [address] 10 Oct, 2016 Opioid use disorder, severe, in early remission F11.21 [facility] [id number] [place] [address] 25949- 4853 09 Oct, 2016 Opioid use disorder, severe, in early remission F11.21 [facility] [id number] [place] [address] 71015- 7151 08 Oct, 2016 [facility] [address], [place] [address]- 6571 07 Oct, 2016 [facility] [address], [place] [address]- 6870 Oct, [facility] [address] [place] [address] Oct, Opioid use disorder, severe, in early remission F11.21 [facility] [id number] [place] [address] 75781- 2361 Sep, Opioid use disorder, severe, in early remission F11.21 [facility] [address] [place] [address] Sep, Opioid use disorder, severe, in early remission F11.21 [facility] [id number] [place] [address] 58246- 6074 Sep, Opioid use disorder, severe, in early remission F11.21 ; 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 and Encounter for therapeutic drug level monitoring Z51.81 [facility] [id number] [place] [address] 86174- 6829 Sep, [facility] [id number] [place] [address] 54690- 4096 Sep, [facility] [address] [place] [id number] [place] [address] 68044- 4256 Sep, Opioid use disorder, severe, 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 ; 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 ; Chronic kidney disease, stage 3 N18.3 ; Essential hypertension I10 and Irritable bowel syndrome with constipation K58.1 [facility] [address] [place] [address] Sep, Opioid use disorder, severe, in early remission F11.21 [facility] [address] [place] [address] Sep, Opioid use disorder, severe, in early remission F11.21 [facility] [id number] [place] [address] 49895- 2166 Sep, Opioid use disorder, moderate, dependence F11.20 [facility] [address] [place] [id number] [place] [address] 12452- 2638 Sep, Opioid use disorder, moderate, dependence F11.20 [facility] [address] [place] [address] Sep, Opioid use disorder, severe, in early remission F11.21 [facility] [id number] [place] [address] 40196- 0661 Sep, Opioid use disorder, severe, in early remission F11.21 [facility] [address] [place] [address] Aug, Opioid use disorder, severe, in early remission F11.21 [facility] [id number] [place] [address] 27005- 4652 Aug, Opioid use disorder, moderate, dependence F11.20 [facility] [address] [address] Aug, Bug bite without infection, initial encounter W57.XXXA [facility] [address] [place] [address] 02049- 0590 Aug, Opioid use disorder, moderate, dependence F11.20 [facility] [address] [place] [address] Aug, [facility] [address] [place] [address] 96644- 7152 Aug, Opioid use disorder, severe, in early remission F11.21 ; Other skilled nursing (current) drug therapy Z79.899 ; Encounter for therapeutic drug level monitoring Z51.81 and 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 [facility] [address] [place] [address] 15 Aug, 2016 [facility] [address] [place] [address] 19498- 9853 Aug, Opioid use disorder, moderate, dependence F11.20 ; Other skilled nursing (current) drug therapy Z79.899 and Encounter for therapeutic drug level monitoring Z51.81 [facility] [address] [place] [id number] [place] [address] 20427- 4019 Aug, [facility] [id number] [place] [address] 15607- 0999 Aug, Non-intractable vomiting with nausea, unspecified vomiting type R11.2 [facility] [id number] [place] [address] 67382- 4303 Aug, Opioid use disorder, moderate, dependence F11.20 and Non- intractable vomiting with nausea, unspecified vomiting type R11.2 [facility] [id number] [place] [address] 55853- 7589 Aug, [facility] [address] 59564- 5034 Aug, Opioid use disorder, moderate, dependence F11.20 [facility] [id number] [place] [address] 07427- 6673 Aug, [facility] [address] 89108- 6699 Jul, 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 and Opioid use disorder, moderate, dependence F11.20 [facility] [address] [place] [address] Jul, [facility] [id number] [place] [address] 42140- 8121 Jul, [facility] [id number] [place] [address] 26342- 6794 Jul, [facility] [id number] [place] [address] 44104- 7610 Jul, Addiction to drug F19.20 and Chronic kidney disease, stage 3 N18.3 [facility] [address] [place] [address] 17 Jul, 2016 Counseling on substance use and abuse Z71.89 [facility] [id number] [place] [address] 07201- 5662 Jul, Chronic kidney disease, stage 3 N18.3 [facility] [address] 01776- 1506 Jul, 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 ; Diarrhea, unspecified type R19.7 and Essential hypertension I10 [facility] [id number] [place] [address] 01546- 2734 Jul, [facility] [id number] [place] [address] 25774- 0253 Jun, [facility] [address] 44501- 9900 Jun, [facility] [address] 81403- 7683 Apr, 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 [facility] [id number] [place] [address] 40618- 3420 Apr, Sore throat and laryngitis J06.0 and Non-intractable vomiting with nausea, unspecified vomiting type R11.2 [facility] [id number] [place] [address] 77578- 9824 Apr, [facility] [id number] [place] [address] 92075- 0873 Mar, [facility] [id number] [place] [address] 27130- 5295 Jan, [facility] [id number] [place] [address] 53311- 3032 Jan, [facility] [id number] [place] [address] 22313- 7894 Jan, [facility] [id number] [place] [address] 05938- 8112 December, 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 ; Gastroparesis K31.84 ; Mixed hyperlipidemia E78.2 ; Chronic kidney disease, stage 3 N18.3 ; Dysthymia F34.1 and Acute bilateral low back pain without sciatica M54.5 [facility] [address] [place] [address] 6310 December, [facility] [id number] [place] [address] 62811- 4559 December, [facility] [address] 76974- 4026 Aug, Depression F32.9 and Gastroparesis K31.84 [facility] [address] 44023- 9977 Aug, Gastroparesis K31.84 [facility] [address] 90302- 9395 Jul, Recurrent UTI N39.0 ; Chronic kidney disease, stage 3 N18.3 and 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 [facility] [address] 12248- 2961 Jul, [facility] [address] [id number] Jul, Dental examination Z01.20 and Dental caries K02.9 [facility] [address] 87438- 5328 Jul, [facility] [id number] [place] [address] 60789 -7458 Jul, Dysuria R30.0 ; Urinary tract infection N39.0 and Nausea R11.0 [facility] [id number] [place] [address] 19699- 3017 Jun, Dysuria R30.0 [facility] [id number] [place] [address] 05431- 0027 Jun, Dysuria R30.0 [facility] [address] 27824- 6691 Jun, Dysuria R30.0 [facility] [id number] [place] [address]- [address] Jun, [id number] [address] Jun, Acute cystitis with hematuria N30.01 [id number] [address] May, [id number] [place] [address] Apr, Diabetes mellitus without mention of complication, type I [ juvenile type], not stated as uncontrolled 250.01 ; Gastroparesis due to DM 250.60 ; Contraception management V25.9 and Renal insufficiency 593.9 [id number] [place] [address]- [address] Apr, [id number] [place] [address]- [address] Apr, [id number] [place] [address]- [address]49 Mar, [id number] [place] [address]- [address]60 Mar, Hyperlipidemia 272.4 and Hypertensive heart and chronic kidney disease, benign, without heart failure and with chronic kidney disease stage I through stage IV, or unspecified 404.10 [id number] [address] Mar, Hyperlipidemia 272.4 ; Hyponatremia 276.1 ; 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 ; Hypertensive heart and chronic kidney disease, benign, without heart failure and with chronic kidney disease stage I through stage IV, or unspecified 404.10 ; Proteinuria 791.0 and Chronic kidney disease (CKD), stage III (moderate) 585.[id number] [place] [address] Mar, [id number] [place] [address] Mar, Elevated blood sugar level 790.29 [place] [id number] [address] Mar, Low grade squamous intraepithelial lesion (LGSIL) on cervical Pap smear 795.03 [facility] [id number], [place] [address] Mar, Amenorrhea 626.0 [facility] [id number], [place] [address] 15 Jan, 2015 Amenorrhea 626.0 ; Routine gynecological examination V72.31 and Screen for STD (sexually transmitted disease) V74.5 [facility] [id number] 11 Jan, 2015 Amenorrhea 626.0 [facility] [id number] [address] 08 Jan, 2015 Routine gynecological examination V72.31 ; Screen for STD ( sexually transmitted disease) V74.5 ; Pap test, as part of routine gynecological examination V76.2 ; Breast cancer screening V76.10 and Amenorrhea 626.0 [facility] [id number] [address] [address] December, [facility] [id number] [address] Dec, [facility] [address], [place] [address] Dec, [facility] [id number], [place] [address] 30 Oct, 2014 [facility] [id number] [address] [address] Oct, [facility] [id number] [address] Oct, [facility] [address], [place] [address] Oct, [facility] [address], [place] [address] Oct, [facility] [place] [facility] [address] [id number] [place] [address] Oct, [facility] [place] [facility] [address] [id number] [place] [address] 4278 Oct, [facility] [place] [facility] [address] [id number] [place] [address]- 5704 Oct, [facility] [place] [facility] [address] [id number] [place] [address]- 7569 Oct, [facility] [place] [facility] [address] [id number] [place] [address]- 0864 Oct, [facility] [place] [facility] [address] [id number] [place] [address]- 3372 Oct, [facility] [place] [facility] [address] [id number] [place] [address]- 5821 Sep, [facility] [place] [facility] [address] [id number] [place] [address]- 5731 Sep, [facility] [place] [facility] [address] [id number] [place] [address]- 6732 Sep, [facility] [place] [facility] [address] [id number] [place] [address]- 3210 Sep, [facility] [place] [facility] [address] [id number] [place] [address]- 2938 Sep, [facility] [place] [facility] [address] [id number], [place] [address] Sep, [facility] [place] [facility] [address] [id number], [place] [address] Sep, [facility] [place] [facility] [address] [id number] [place] [address]- 6165 Sep, [facility] [place] [facility] [address] [id number], [place] [address]- [address] Sep, [facility] [place] [facility] [address] [id number] [place] [address]- 5353 Sep, [facility] [place] [facility] [address] [id number] [place] [address]- 3196 Sep, [facility] [place] [facility] [address] [id number] [place] [address]- 3225 Sep, [facility] [place] [facility] [address] [id number] [place] [address]- 7090 Sep, [facility] [place] [facility] [address] [id number] [place] [address]- 2299 Sep, [facility] [place] [facility] [address] [id number] [place] [address]- 0193 Sep, [facility] [place] [facility] [address] [id number] [place] [address]- 5363 Sep, [facility] [place] [facility] [address] [id number] [place] [address]- 3037 Sep, [facility] [place] [facility] [address] [id number] [place] [address]- 0269 Sep, [facility] [place] [facility] [address] [id number] [place] [address]- 6257 Sep, [facility] [place] [facility] [address] [id number] [place] [address]- 4897 Sep, [facility] [place] [facility] [address] [id number] [place] [address]- 6864 Aug, [facility] [place] [facility] [address] [id number] [place] [address]- 4487 Aug, [facility] [place] [facility] [address] [id number] [place] [address]- 8456 Aug, [facility] [place] [facility] [address] [id number] [place] [address]- 9426 Aug, [facility] [place] [facility] [address] [id number] [place] [address]- 9[address] 08 Aug, 2014 [facility] [place] [facility] [address] [id number] [place] [address]- 1220 Aug, [facility] [place] [facility] [address] [id number] [place] [address] Aug, [facility] [place] [facility] [address] [id number] [place] [address] Aug, [facility] [place] [facility] [address] [id number] [place] [address] Aug, [facility] [place] [facility] [address] [id number] [place] [address]- 0476 Aug, [facility] [place] [facility] [address] [id number] [place] [address]- 7814 Aug, [facility] [place] [facility] [address] [id number] [place] [address]- 4386 Aug, [facility] [place] [facility] [address] [id number] [place] [address]- 0362 Jul, [facility] [place] [facility] [address] [id number] [place] [address]- 6066 Jul, [facility] [place] [facility] [address] [id number] [place] [address]- 1746 Jul, [facility] [place] [facility] [address] [id number], [place] [address]- 9[address] Jul, [facility] [place] [facility] [address] [id number], [place] [address]- 64[address] Jul, [facility] [place] [facility] [address] [id number] [place] [address]- 9772 Jul, [facility] [place] [facility] [address] [id number], [place] [address]- [address] Jul, [facility] [place] [facility] [address] [id number], [place] [address]- 8736 Jul, [facility] [place] [facility] [address] [id number] [place] [address]- 7698 Jul, [facility] [place] [facility] [address] [id number] [place] [address]- 6684 Jul, [facility] [place] [facility] [address] [id number] [place] [address]- 6702 Jun, [facility] [place] [facility] [address] [id number] [place] [address]- 9452 Jun, [facility] [place] [facility] [address] [id number] [place] [address]- 9768 Jun, [facility] [place] [facility] [address] [id number] [place] [address]- 9183 Jun, [facility] [place] [facility] [address] [id number] [place] [address]- 9280 Jun, [facility] [place] [facility] [address] [id number] [place] [address]- 1517 Jun, [facility] [place] [facility] [address] [id number] [place] [address]- 9705 15 Jun, 2014 [facility] [place] [facility] [address] [id number] [place] [address]- 4593 15 Jun, 2014 [facility] [place] [facility] [address] [id number] [place] [address]- 7679 22 May, 2014 [facility] [place] [facility] [address] [id number] [place] [address]- 4388 22 May, 2013 [facility] [place] [facility] [address] [id number] [place] [address]- 0785 18 May, 2013 [facility] [place] [facility] [address] [id number] [place] [address]- 3257 18 May, 2013 [facility] [place] [facility] [address] [id number] [place] [address]- 4754 09 Sep, 2013 [facility] [place] [facility] [address] [id number] [place] [address]- 9354 May, [facility] [place] [facility] [address] [id number] [place] [address]- 5250 May, [facility] [place] [facility] [address] [id number] [place] [address] May, [facility] [place] [facility] [address] [id number] [place] [address]- 2716 Apr, [facility] [place] [facility] [address] [id number] [place] [address]- 6248 Apr, [facility] [place] [facility] [address] [id number] [place] [address]- 4674 Apr, [facility] [place] [facility] [address] [id number] [place] [address]- 3007 Apr, [facility] [place] [facility] [address] [id number] [place] [address]- 5532 Mar, [facility] [place] [facility] [address] [id number] [place] [address]- 2358 Mar, [facility] [place] [facility] [address] [id number] [place] [address]- 0162 Mar, [facility] [place] [facility] [address] [id number] [place] [address]- 7504 Mar, [facility] [place] [facility] [address] [id number] [place] [address]- 0090 Mar, [facility] [place] [facility] [address] [id number] [place] [address]- 1048 Mar, [facility] [place] [facility] [address] [id number] [place] [address]- 6037 Jan, [facility] [place] [facility] [address] [id number] [place] [address]- 1668 Jan, [facility] [place] [facility] [address] [id number] [place] [address]- 9528 Jan, [facility] [place] [facility] [address] [id number] [place] [address]- 6446 Jan, [facility] [place] [facility] [address] [id number] [place] [address]- 2126 Jan, [facility] [place] [facility] [address] [id number] [place] [address]- 4431 Jan, [facility] [place] [facility] [address] [id number] [place] [address]- 9453 Jan, [facility] [place] [facility] [address] [id number] [place] [address]- 4521 Jan, [facility] [place] [facility] [address] [id number] [place] [address]- 1560 Jan, [facility] [place] [facility] [address] [id number] [place] [address]- 7790 Jan, [facility] [place] [facility] [address] [id number] [place] [address]- 0740 Jan, [facility] [place] [facility] [address] [id number] [place] [address]- 1786 Jan, [facility] [place] [facility] [address] [id number] [place] [address]- 6669 December, [facility] [place] [facility] [address] [id number] [place] [address]- 3500 December, [facility] [place] [facility] [address] [id number] [place] [address]- 7468 December, [facility] [place] [facility] [address] [id number] [place] [address]- 5354 December, [facility] [place] [facility] [address] [id number] [place] [address]- 0442 Dec, [facility] [place] [facility] [address] [id number] [place] [address]- 0699 Dec, [facility] [place] [facility] [address] [id number] [place] [address]- 6916 Dec, [facility] [place] [facility] [address] [id number] [place] [address]- 3868 Dec, [facility] [place] [facility] [address] [id number] [place] [address]- 9108 Dec, [facility] [place] [facility] [address] [id number] [place] [address]783 Dec, [facility] [place] [facility] [address] [id number] [place] [address]- 3206 Dec, [facility] [place] [facility] [address] [id number] [place] [address]- 2084 Dec, [facility] [place] [facility] [address] [id number] [place] [address]- 4845 Dec, [facility] [place] [facility] [address] [id number] [place] [address]- 1535 Dec, [facility] [place] [facility] [address] [id number] [place] [address]- 5879 Dec, [facility] [place] [facility] [address] [id number] [place] [address]- 7374 Dec, [facility] [place] [facility] [address] [id number] [place] [address]- 4483 Dec, [facility] [place] [facility] [address] [id number] [place] [address]- 2612 Dec, [facility] [place] [facility] [address] [id number] [place] [address]- 1537 Oct, [facility] [place] [facility] [address] [id number] [place] [address]- 9002 Oct, [facility] [place] [facility] [address] [id number] [place] [address]- 6073 Oct, [facility] [place] [facility] [address] [id number] [place] [address]- 9266 Oct, [facility] [place] [facility] [address] [id number] [place] [address]- 0681 Oct, [facility] [place] [facility] [address] [id number] [place] [address]- 0014 Oct, [facility] [place] [facility] [address] [id number] [place] [id number] Oct, [facility] [place] [facility] [address] [id number] [place] [address]- 4852 Oct, [facility] [place] [facility] [address] [id number] [place] [address]- 5285 Oct, [facility] [place] [facility] [address] [id number] [place] [address]- 1212 Oct, [facility] [place] [facility] [address] [id number] [place] [address]- 5869 Sep, [facility] [place] [facility] [address] [id number] [place] [address]- 8366 Sep, [facility] [place] [facility] [address] [id number] [place] [address]- 5742 Sep, [facility] [place] [facility] [address] [id number] [place] [address]- 9166 Sep, [facility] [place] [facility] [address] [id number] [place] [address]- 8610 Sep, [facility] [place] [facility] [address] [id number] [place] [address]- 6700 Sep, [facility] [place] [facility] [address] [id number], [place] [address]- 6837 Aug, [facility] [place] [facility] [address] [id number] [place] [address]- 3628 Aug, [facility] [place] [facility] [address] [id number] [place] [address]- 8866 Jul, [facility] [place] [facility] [address] [id number] [place] [address]- 0387 Jul, [facility] [place] [facility] [address] [id number], [place] [address]- 7853 Jul, [facility] [address] [facility] [id number] [place] [address]- 1382 Jul, [facility] [address] [facility] [id number], [place] [address]- 2270 Jul, IMMUNIZATIONS No Known Immunizations SOCIAL HISTORY Never Assessed REASON FOR VISIT SUBAB F/U PLAN OF CARE Activity Details Follow Up 1 Week Reason: VITAL SIGNS MEDICATIONS Unknown Medications RESULTS No Results PROCEDURES Procedure Date Ordered Result Body Site Psychotherapy, patient &/family, 30 minutes, established patient February 20, 2017 INSTRUCTIONS MEDICATIONS ADMINISTERED No Known Medications MEDICAL (GENERAL) HISTORY Type Description Date Medical History Type 1 Diabetes mellitus Medical History hx of hypertension Medical History gastroparesis Medical History hx of renal insufficiency 09/2014 Medical History Unspecified renal failure Medical History Gastroparesis due to DM Surgical History oral surgery at age 16 Hospitalization History Gastroperisis 2011
--- OUTSIDE RECORDS SUMMARY | 2018-08-30 21:09 | XMS REPORT ---
Author Author YANNICK JOSUE [facility] Address [address] [place] [address] Care Team Providers Care Manager Enrollment Name Role Phone BAYFredy YANNICK Unavailable PROBLEMS Type Condition ICD9-CM Code IAN92-AQ Code Onset Dates Condition Status SNOMED Code Problem Essential hypertension I10 Active 37557500 Problem Addiction to drug F19.20 Active 433576935 Problem Diarrhea, unspecified type R19.7 Active 27952031 Problem CHI I (cervical intraepithelial neoplasia I) N87.0 Active 828550057 Problem Right acute serous otitis media, recurrence not specified H65.01 Active 159968018 Problem Irritable bowel syndrome with constipation K58.1 Active 583199053 Problem Encounter for therapeutic drug level monitoring Z51.81 Active 470337312 Problem Mild episode of recurrent major depressive disorder F33.0 Active 998755338 Problem Opioid use disorder, severe, in sustained remission F11.21 Active 12356138 Problem Long-term use of high-risk medication Z79.899 Active 407948195 Problem Recurrent UTI N39.0 Active 685136757 Problem Gastroparesis K31.84 Active 236000692 Problem Acute bilateral low back pain without sciatica M54.5 Active 858653778 Problem 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 [address] [place] [address] Dec, [facility] [place] [id number] [address] Dec, [facility] [place] [address] [facility] [id number] [address] 03 Apr, 2018 Opioid use disorder, severe, in early remission F11.21 [facility] [place] [id number] [place] [address] 29767- 1212 Oct, [facility] [place] [id number] [place] [address] 668036- 7926 Oct, Opioid use disorder, severe, in early remission F11.21 [facility] [place] [id number] [place] [address] 40357- 1216 Oct, [facility] [place] [id number] [place] [address] 124006- 6201 Oct, Opioid use disorder, severe, in early remission F11.21 [facility] [place] [id number] [place] [address] 982131- 8246 Oct, [facility] [place] [id number] [place] [address] 68422- 2756 Oct, [facility] [address] [place] [address] Oct, Opioid use disorder, severe, in sustained remission F11.21 [facility] [place] [id number] [place] [address] 49313- 9246 Sep, [facility] [place] [id number] [place] [address] 56111- 8881 Sep, [facility] [place] [id number] [place] [address] 37841- 2343 Sep, Opioid use disorder, severe, in early remission F11.21 [facility] [place] [id number] [place] [address] 22593- 1507 Aug, Opioid use disorder, severe, in early remission F11.21 [facility] [place] [id number] [place] [address] 909653- 9746 Jul, [facility] [place] [id number] [place] [address] 44460- 1684 Jul, Chronic kidney disease, stage 3 N18.3 ; Dysthymia F34.1 and Opioid use disorder, severe, in sustained remission F11.21 [facility] [address] [place] [address] Jul, Opioid use disorder, severe, in sustained remission F11.21 [facility] [place] [id number] [place] [address] 83115- 6581 Jul, Long-term use of high-risk medication Z79.899 and Chronic kidney disease, stage 3 N18.3 [place] [address] 96567- 2065 Jul, Opioid use disorder, severe, in early remission F11.21 [place] [address] 20219- 4346 Jul, [place] [address] 20308- 2910 Jun, [place] [address] 02680- 4947 Jun, [place] [address] 22935- 7296 Jun, Opioid use disorder, moderate, dependence F11.20 and Opioid use disorder, severe, in early remission F11.21 [place] [id number] [place] [address] 23567- 7988 Jun, [place] [id number] [place] [address] 87841- 5713 Jun, Long-term use of high-risk medication Z79.899 [place] [address] 20650- 5800 Jun, CHI I (cervical intraepithelial neoplasia I) N87.0 [place] [address] 23455- 2591 May, Opioid use disorder, severe, 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 [address] [place] [address] 05 May, 2017 Opioid use disorder, severe, in sustained remission F11.21 [facility] [place] [id number] [place] [address] 89452- 8012 Apr, LGSIL on Pap smear of cervix R87.[address] 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 [facility] [place] [id number] [place] [address] 10606- 5510 Apr, Opioid use disorder, severe, 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 [facility] [place] [id number] [place] [address] 32364- 9822 Apr, Opioid use disorder, severe, 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 [facility] [place] [id number] [place] [address] 21175- 8240 Apr, Mild episode of recurrent major depressive disorder F33.0 and Right acute serous otitis media, recurrence not specified H65.01 [facility] [place] [id number] [place] [address] 87300- 2845 Mar, [facility] [place] [id number] [place] [address] 90240- 5784 Mar, Opioid use disorder, severe, in early remission F11.21 [facility] [place] [id number] [place] [address] 67097- 3387 Mar, [facility] [address] [place] [address] Mar, Opioid use disorder, severe, in sustained remission F11.[address] [facility] [address] [place] [address] Mar, Opioid use disorder, severe, in sustained remission F11.21 [facility] [place] [id number] [place] [address] 87331- 8172 Mar, Opioid use disorder, severe, in early remission F11.21 [facility] [place] [id number] [place] [address] 00106- 2027 Jan, Opioid use disorder, severe, in early remission F11.[address] [facility] [address] [place] [address] Jan, Opioid use disorder, severe, in sustained remission F11.21 [facility] [address] [place] [address] Jan, Opioid use disorder, severe, in sustained remission F11.21 [facility] [place] [id number] [place] [address] 00989- 3737 Jan, Opioid use disorder, severe, in early remission F11.[address] [facility] [address] [place] [address] Jan, Opioid use disorder, severe, in sustained remission F11.21 [facility] [place] [address], [place] [address] December, Opioid use disorder, severe, in early remission F11.[address] 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 [address] [place] [address] December, Opioid use disorder, severe, in sustained remission F11.21 [id number] [place] [address] 18294- 9767 December, Encounter for therapeutic drug level monitoring Z51.[address] [facility] [address] [place] [address] December, Opioid use disorder, severe, in sustained remission F11.[address] 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 [address] [place] [address] Dec, Opioid use disorder, severe, in sustained remission F11.21 [facility] [place] [id number] [place] [address] 05926- 3749 10 Dec, 2016 Opioid use disorder, severe, in early remission F11.[address] 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 [facility] [place] [id number] [place] [address] 21025- 3308 14 Oct, 2016 Routine gynecological examination Z01.419 [place] [id number] [place] [address] 96281- 5193 Oct, Opioid use disorder, severe, in early remission F11.21 [facility] [place] [id number] [place] [address] 56683- 8551 Oct, Opioid use disorder, severe, in early remission F11.21 [facility] [place] [id number] [place] [address] 28913- 8034 Oct, Opioid use disorder, severe, in early remission F11.21 [facility] [address] [place] [address] Oct, Opioid use disorder, severe, in sustained remission F11.21 [facility] [place] [id number] [place] [address] 12887- 9418 Oct, Opioid use disorder, severe, in early remission F11.21 [facility] [place] [id number] [place] [address] 61128- 6036 Oct, Opioid use disorder, severe, in early remission F11.21 [facility] [address] [place] [address] Oct, Opioid use disorder, severe, in sustained remission F11.21 [facility] [place] [id number] [place] [address] 54424- 7283 Oct, Opioid use disorder, severe, in sustained remission F11.21 ; Encounter for therapeutic drug level monitoring Z51.81 and Other half-way ( current) drug therapy Z79.899 [facility] [place] [id number] [place] [address] 13054- 1099 16 Oct, 2016 [facility] [address] [place] [address] 14 Oct, 2016 Opioid use disorder, severe, in early remission F11.[address] [facility] [address] [place] [address] 10 Oct, 2016 Opioid use disorder, severe, in early remission F11.21 [facility] [place] [id number] [place] [address] 82047- 1617 09 Oct, 2016 Opioid use disorder, severe, in early remission F11.21 [facility] [place] [address] [place] [address] 81500- 7152 08 Oct, 2016 [facility] [place] [id number] [place] [address] 44957- 5702 Oct, [facility] [place] [id number] [place] [address] 99135- 0824 Oct, [facility] [address] [place] [address] Oct, Opioid use disorder, severe, in early remission F11.21 [facility] [place] [id number] [place] [address] 08284- 4479 Sep, Opioid use disorder, severe, in early remission F11.[address] 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 ; Other half-way (current) drug therapy Z79.899 and Encounter for therapeutic drug level monitoring Z51.81 [place] [id number] [place] [address] 07686- 4769 Sep, [facility] [place] [address] [place] [address] 80755- 6540 Sep, [facility] [place] [address] [place] [id number] [place] [address] 19858- 5949 Sep, Opioid use disorder, severe, 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 [address] [place] [address] Sep, Opioid use disorder, severe, in early remission F11.[address] 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 [address] [place] [address] Aug, Opioid use disorder, severe, in early remission F11.[address] 79932- 9194 Aug, Opioid use disorder, moderate, dependence F11.[address] [facility] [address] [address] Aug, Bug bite without infection, initial encounter W57.XXXA [place] [id number] [place] [address] 05116- 3379 Aug, Opioid use disorder, moderate, dependence F11.[address] 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 [address] [place] [address] Aug, [facility] [place] [address] [place] [address] 79730- 7938 Aug, Opioid use disorder, moderate, dependence F11.20 ; Other half-way (current) drug therapy Z79.899 and Encounter for therapeutic drug level monitoring Z51.81 [facility] [place] [id number] [place] [address] 50964- 4430 Aug, [facility] [place] [address] 97933- 5798 Aug, Non-intractable vomiting with nausea, unspecified vomiting type R11.2 [facility] [place] [address] 92800- 6141 Aug, Opioid use disorder, moderate, dependence F11.20 and Non- intractable vomiting with nausea, unspecified vomiting type R11.2 [facility] [place] [id number] [place] [address] 22941- 3350 Aug, [place] [address] 44679- 1311 Aug, Opioid use disorder, moderate, dependence F11.20 [facility] [place] [id number] [place] [address] 59283- 8951 Aug, [facility] [place] [id number] [place] [address] 53254- 6279 Jul, 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 [address] [place] [address] Jul, [facility] [place] [id number] [place] [address] 02770- 4789 Jul, [facility] [place] [id number] [place] [address] 38642- 6164 Jul, [facility] [place] [id number] [place] [address] 30968- 5818 Jul, Addiction to drug F19.20 and Chronic kidney disease, stage [address] 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 ; Diarrhea, unspecified type R19.7 and Essential hypertension I10 [facility] [place] [id number] [place] [address] 45894- 6031 Jul, [facility] [place] [id number] [place] [address] 16263- 0074 Jun, [facility] [place] [id number] [place] [address] [phone] Jun, [facility] [place], [facility] [id number] [place] [address] [phone] Apr, 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 [facility] [place] [id number] [place] [address] [phone] Apr, Sore throat and laryngitis J06.0 and Non-intractable vomiting with nausea, unspecified vomiting type R11.2 [facility] [place], [facility] [id number] [place] [address] [phone] Apr, [place] [facility] [place] [id number] [place] [address] 81500- 8543 Mar, [facility] [place] [id number] [place] [address] 75493- 2297 Jan, [facility] [place] [id number] [place] [address] 42171- 8947 Jan, [facility] [place] [id number] [place] [address] 11036- 4606 Jan, [facility] [place] [id number] [place] [address] 81991- 2597 December, 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 ; Gastroparesis K31.84 ; Mixed hyperlipidemia E78.2 ; Chronic kidney disease, stage 3 N18.3 ; Dysthymia F34.1 and Acute bilateral low back pain without sciatica M54.5 [facility] [place] [id number] [place] [address] 76233- 4279 December, [facility] [place] [address] [address]348- 1155 December, [facility] [place] [address] 35221- 9283 Aug, Depression F32.9 and Gastroparesis K31.84 [place] [address] 56241- 8068 Aug, Gastroparesis K31.84 [place] [address] 72185- 0522 Jul, Recurrent UTI N39.0 ; Chronic kidney disease, stage 3 N18.3 and 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 [address] 8[address]18 -5822 Jul, Dysuria R30.0 ; Urinary tract infection N39.0 and Nausea R11.0 [place] [address] 92917- 9968 Jun, Dysuria R30.0 [place] [address] 27935- 0892 Jun, Dysuria R30.0 [place] [address] [address] 7696 Jun, Dysuria R30.0 [place] [id number] [place] [address] 74779- 0071 Jun, [place] [id number] [place] [address] 93035- 5761 Jun, Acute cystitis with hematuria N30.01 [place] [id number] [place] [address] 48071- 7376 May, [id number] [place] [address] 90017- 9636 Apr, Diabetes mellitus without mention of complication, type I [ juvenile type], not stated as uncontrolled 250.01 ; Gastroparesis due to DM 250.60 ; Contraception management V25.9 and Renal insufficiency 593.9 [id number] [place] [address] 95076- 4434 Apr, [place] [address] [address]- 8046 Apr, [id number] [place] [address] 07732- 5860 Mar, [id number] [place] [address] 97932- 9418 Mar, Hyperlipidemia 272.4 and Hypertensive heart and chronic kidney disease, benign, without heart failure and with chronic kidney disease stage I through stage IV, or unspecified 404.10 [place] [id number] [address]- 1517 Mar, Hyperlipidemia 272.4 ; Hyponatremia 276.1 ; 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 ; Hypertensive heart and chronic kidney disease, benign, without heart failure and with chronic kidney disease stage I through stage IV, or unspecified 404.10 ; Proteinuria 791.0 and Chronic kidney disease (CKD), stage III (moderate) 585.[address] [id number] [address]- 2278 Mar, [facility] [place] [address] [address]- 4097 Mar, Elevated blood sugar level 790.29 [facility] [place] [address], [place] [address]- 6677 Mar, Low grade squamous intraepithelial lesion (LGSIL) on cervical Pap smear 795.03 [facility] [place] [address] [address]- 9115 Mar, Amenorrhea 626.0 [place] [id number] [place] [address] 38697- 8503 Jan, Amenorrhea 626.0 ; Routine gynecological examination V72.31 and Screen for STD (sexually transmitted disease) V74.5 [place] [address] [address]- 4165 Jan, Amenorrhea 626.0 [facility] [place] [address], [place] [address]- 9491 08 Jan, 2015 Routine gynecological examination V72.31 ; Screen for STD ( sexually transmitted disease) V74.5 ; Pap test, as part of routine gynecological examination V76.2 ; Breast cancer screening V76.10 and Amenorrhea 626.0 [place] [address], [place] [address]- 0399 December, [facility] [place] [address] [address]- 2821 14 Dec, 2014 [facility] [place] [address], [place] [address]- 8249 Dec, [facility] [place] [address] 9511 30 Oct, 2014 [facility] [place] [address] [address] 4739 Oct, [facility] [place] [address] [address]- 8197 Oct, [facility] [place] [facility] [address] [id number] [place] [address]- 9235 Oct, [facility] [place] [facility] [address] [id number] [place] [address]- 8649 Oct, [facility] [place] [facility] [address] [id number] [place] [address]- 5238 Oct, [facility] [place] [facility] [address] [id number] [place] [address]- 0457 Oct, [facility] [place] [facility] [address] [id number] [place] [address]- 4827 Oct, [facility] [place] [facility] [address] [id number] [place] [address]- 2243 Oct, [facility] [place] [facility] [address] [id number] [place] [address]- 6434 Oct, [facility] [place] [facility] [address] [id number] [place] [address]- 8183 Oct, [facility] [place] [facility] [address] [id number] [place] [address]- 4670 Sep, [facility] [place] [facility] [address] [id number] [place] [address]- 9261 Sep, [facility] [place] [facility] [address] [id number] [place] [address]- 5200 Sep, [facility] [place] [facility] [address] [id number] [place] [address]- 2966 Sep, [facility] [place] [facility] [address] [id number] [place] [address]- 8970 Sep, [facility] [place] [facility] [address] [id number] [place] [address]- 9976 Sep, [facility] [place] [facility] [address] [id number] [place] [address]- 5485 15 Sep, 2014 [facility] [place] [facility] [address] [id number] [place] [address]- 7509 15 Sep, 2014 [facility] [place] [facility] [address] [id number] [place] [address]- 1719 Sep, [facility] [place] [facility] [address] [id number] [place] [address]- 5258 15 Sep, 2014 [facility] [place] [facility] [address] [id number] [place] [address]- 3484 Sep, [facility] [place] [facility] [address] [id number] [place] [address]- 6418 Sep, [facility] [place] [facility] [address] [id number] [place] [address]- 0929 Sep, [facility] [place] [facility] [address] [id number] [place] [address]- 4175 Sep, [facility] [place] [facility] [address] [id number], [place] [address]- 7428 Sep, [facility] [place] [facility] [address] [id number] [place] [address]- 1717 Sep, [facility] [place] [facility] [address] [id number], [place] [address]- 7534 Sep, [facility] [place] [facility] [address] [id number], [place] [address]- 4234 Sep, [facility] [place] [facility] [address] [id number], [place] [address]- 0806 Sep, [facility] [place] [facility] [address] [id number] [place] [address]- 3416 Sep, [facility] [place] [facility] [address] [id number], [place] [address]- 9142 Aug, [facility] [place] [facility] [address] [id number] [place] [address]- 3464 Aug, [facility] [place] [facility] [address] [id number] [place] [address]- 7057 09 Aug, 2014 [facility] [place] [facility] [address] [id number] [place] [address]- 9605 09 Aug, 2014 [facility] [place] [facility] [address] [id number] [place] 8175 08 Aug, 2014 [facility] [place] [facility] [address] [id number] [place] [address]- 7303 Aug, [facility] [place] [facility] [address] [id number] [place] [address]- 6291 Aug, [facility] [place] [facility] [address] [id number] [place] [address]- 2054 Aug, [facility] [place] [facility] [address] [id number] [place] [address]- 2206 Aug, [facility] [place] [facility] [address] [id number] [place] [address]- 0508 Aug, [facility] [place] [facility] [address] [id number] [place] [address]- 1688 Aug, [facility] [place] [facility] [address] [id number] [place] [address]- 3499 Aug, [facility] [place] [facility] [address] [id number] [place] [address]- 0552 Jul, [facility] [place] [facility] [address] [id number] [place] [address]- 6705 Jul, [facility] [place] [facility] [address] [id number] [place] [address]- 0787 Jul, [facility] [place] [facility] [address] [id number] [place] [address]- 1178 Jul, [facility] [place] [facility] [address] [id number] [place] [address]- 8347 Jul, [facility] [place] [facility] [address] [id number] [place] [address]- 5168 Jul, [facility] [place] [facility] [address] [id number] [place] [address]- 7597 Jul, [facility] [place] [facility] [address] [id number] [place] [address]- 7256 Jul, [facility] [place] [facility] [address] [id number] [place] [address]- 0804 Jul, [facility] [place] [facility] [address] [id number] [place] [address]- 7681 Jul, [facility] [place] [facility] [address] [id number] [place] [address]- 2500 Jun, [facility] [place] [facility] [address] [id number] [place] [address]- 4176 Jun, [facility] [place] [facility] [address] [id number] [place] [address]- 5636 Jun, [facility] [place] [facility] [address] [id number] [place] [address]- 9019 Jun, [facility] [place] [facility] [address] [id number] [place] [address]- 7158 Jun, [facility] [place] [facility] [address] [id number] [place] [address]- 4945 Jun, [facility] [place] [facility] [address] [id number] [place] [address]- 0750 15 Jun, 2014 [facility] [place] [facility] [address] [id number] [place] [address]- 1935 15 Jun, 2014 [facility] [place] [facility] [address] [id number] [place] [address]- 9820 May, [facility] [place] [facility] [address] [id number] [place] [address]- 4724 22 May, 2014 [facility] [place] [facility] [address] [id number] [place] [address]- 2206 18 May, 2014 [facility] [place] [facility] [address] [id number] [place] [address]- 5986 May, [facility] [place] [facility] [address] [id number] [place] [address]- 4434 May, [facility] [place] [facility] [address] [id number] [place] [address]- 2915 May, [facility] [place] [facility] [address] [id number] [place] [address]- 4181 May, [facility] [place] [facility] [address] [id number] [place] [address]- 3196 May, [facility] [place] [facility] [address] [id number] [place] [address]- 1518 Apr, [facility] [place] [facility] [address] [id number] [place] [address]- 5094 Apr, [facility] [place] [facility] [address] [id number] [place] [address]- 9688 Apr, [facility] [place] [facility] [address] [id number] [place] [address]- 6166 Apr, [facility] [place] [facility] [address] [id number] [place] [address]- 4882 Mar, [facility] [place] [facility] [address] [id number] [place] [address]- 2388 Mar, [facility] [place] [facility] [address] [id number] [place] [address]- 3756 Mar, [facility] [place] [facility] [address] [id number] [place] [address]- 2253 Mar, [facility] [place] [facility] [address] [id number] [place] [address]- 4408 Mar, [facility] [place] [facility] [address] [id number] [place] [address]- 8110 Mar, [facility] [place] [facility] [address] [id number] [place] [address]- 4552 Jan, [facility] [place] [facility] [address] [id number] [place] [address]- 1286 Jan, [facility] [place] [facility] [address] [id number] [place] [address]- 1750 Jan, [facility] [place] [facility] [address] [id number] [place] [address]- 3917 Jan, [facility] [place] [facility] [address] [id number] [place] [address]- 0305 Jan, [facility] [place] [facility] [address] [id number] [place] [address]- 8218 Jan, [facility] [place] [facility] [address] [id number] [place] [address]- 7705 Jan, [facility] [place] [facility] [address] [id number] [place] [address]- 2092 Jan, [facility] [place] [facility] [address] [id number] [place] [address]- 8650 Jan, [facility] [place] [facility] [address] [id number] [place] [address]- 2261 Jan, [facility] [place] [facility] [address] [id number] [place] [address]- 1209 Jan, [facility] [place] [facility] [address] [id number] [place] [address]- 0287 Jan, [facility] [place] [facility] [address] [id number] [place] [address]- 0687 December, [facility] [place] [facility] [address] [id number] [place] [address]- 0596 December, [facility] [place] [facility] [address] [id number] [place] [address]- 0133 December, [facility] [place] [facility] [address] [id number] [place] [address]- 0091 December, [facility] [place] [facility] [address] [id number] [place] [address]- 8121 Dec, [facility] [place] [facility] [address] [id number] [place] [address]- 5171 Dec, [facility] [place] [facility] [address] [id number] [place] [address]- 5001 Dec, [facility] [place] [facility] [address] [id number] [place] [address]- 6067 Dec, [facility] [place] [facility] [address] [id number] [place] [address]- 0246 Dec, [facility] [place] [facility] [address] [id number] [place] [address]- 9609 Dec, [facility] [place] [facility] [address] [id number] [place] [address]- 0270 Dec, [facility] [place] [facility] [address] [id number] [place] [address]- 9770 Dec, [facility] [place] [facility] [address] [id number] [place] [address]- 7504 Dec, [facility] [place] [facility] [address] [id number] [place] [address]- 2696 Dec, [facility] [place] [facility] [address] [id number] [place] [address]- 5071 Dec, [facility] [place] [facility] [address] [id number] [place] [address]- 1552 Dec, [facility] [place] [facility] [address] [id number], [place] [address]- 0704 Dec, [facility] [place] [facility] [address] [id number] [place] [address]- 6700 Dec, [facility] [place] [facility] [address] [id number] [place] [address]- 0999 Oct, [facility] [place] [facility] [address] [id number] [place] 4575 Oct, [facility] [place] [facility] [address] [id number], [place] [address]- 7826 29 Oct, 2013 [facility] [address] [id number] [place] [address]- 3507 29 Oct, 2013 [facility] [place] [facility] [address] [id number] [place] [address]- 4255 Oct, [facility] [address] [id number] [place] [address]- 5230 Oct, [facility] [address] [id number] [place] [id number] Oct, [facility] [place] [facility] [address] [id number] [place] [address]- 2699 Oct, [facility] [place] [facility] [address] [id number] [place] [address]- 1539 Oct, [facility] [address] [id number] [place] [address]- 1865 Oct, [facility] [place] [facility] [address] [id number] [place] [address]- 9384 Sep, [facility] [address] [id number] [place] [address]- 3367 Sep, [facility] [place] [facility] [address] [id number] [place] [address]- 5942 Sep, [facility] [address] [id number] [place] [address]- 6332 Sep, [facility] [place] [facility] [address] [id number] [place] [address]- 1471 Sep, [facility] [place] [facility] [address] [id number] [place] [address]- 8330 Sep, [facility] [place] [facility] [address] [id number] [place] [address]- 3526 Aug, [facility] [place] [facility] [address] [id number] [place] 7343 Aug, [facility] [place] [facility] [address] [facility] [id number] [place] [address]- 8798 Jul, [facility] [place] [address] [facility] [id number], [place] [address]- 6560 Jul, [facility] [place] [address] [id number] [address]- 3001 Jul, [facility] [place] [address] [facility] [id number], [place] [address]- 7672 Jul, [facility] [place] [address] [id number] [address]- 2633 Jul, IMMUNIZATIONS No Known Immunizations SOCIAL HISTORY [...]
--- OUTSIDE RECORDS SUMMARY | 2018-08-30 21:12 | XMS REPORT ---
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 Active 50977763 Problem Chronic kidney disease, stage 3 N18.3 Active 196091435 Problem CHI I (cervical intraepithelial neoplasia I) N87.0 Active 235750687 Problem Mild episode of recurrent major depressive disorder F33.0 Active 458685392 Problem Addiction to drug F19.20 Active 297912327 Problem Essential hypertension I10 Active 36770593 Problem Opioid use disorder, severe, in sustained remission F11.21 Active 28162909 Problem Irritable bowel syndrome with constipation K58.1 Active [id number] ALLERGIES No Information ENCOUNTERS Encounter Location Date Diagnosis [facility] [address] [place] [address] December, [facility] [id number] [place] [address] 02782- 3262 December, [facility] [address] [place] [address] Dec, Opioid use disorder, severe, in sustained remission F11.21 [facility] [address] [place] [address] 24072- 0106 Dec, 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 ; Unprotected sexual intercourse Z72.51 ; Pain of left thumb M79.645 ; Mixed hyperlipidemia E78.2 ; Gastroparesis K31.84 ; Essential hypertension I10 and Irritable bowel syndrome with constipation K58.1 [facility] [id number] [place] [address] 70477- 3846 Dec, Opioid use disorder, severe, in early remission F11.21 [facility] [id number] [place] [address] 25604- 4716 Oct, [facility] [id number] [place] [address] 48508 2544 Oct, Opioid use disorder, severe, in early remission F11.21 [facility] [id number] [place] [address] 82336- 1816 Oct, [facility] [id number] [place] [address] 282069- 7366 Oct, Opioid use disorder, severe, in early remission F11.21 [facility] [id number] [place] [address] 19010- 4496 Oct, [facility] [id number] [place] [address] 27071- 2544 Oct, [facility] [address] [place] [address] Oct, Opioid use disorder, severe, in sustained remission F11.21 [facility] [id number] [place] [address] 17305- 1665 Sep, [facility] [id number] [place] [address] 71661 2542 Sep, [facility] [id number] [place] [address] 87541- 3799 Sep, Opioid use disorder, severe, in early remission F11.21 [facility] [id number] [place] [address] 054995- 9606 Aug, Opioid use disorder, severe, in early remission F11.21 [facility] [id number] [place] [address] 39844- 5278 Jul, [facility] [address] [place] [address] 50477- 2803 Jul, Chronic kidney disease, stage 3 N18.3 ; Dysthymia F34.1 and Opioid use disorder, severe, in sustained remission F11.21 [facility] [address] [place] [address] Jul, Opioid use disorder, severe, in sustained remission F11.21 [facility] [id number] [place] [address] 11144- 9737 Jul, Long-term use of high-risk medication Z79.899 and Chronic kidney disease, stage 3 N18.3 [facility] [id number] [place] [address] 29350- 6147 Jul, Opioid use disorder, severe, in early remission F11.21 [facility] [id number] [place] [address] 86144- 9538 Jul, [facility] [id number] [place] [address] 69445- 3828 Jun, [facility] [id number] [place] [address] 34905- 0192 Jun, [facility] [id number] [place] [address] 57354- 7681 Jun, Opioid use disorder, moderate, dependence F11.20 and Opioid use disorder, severe, in early remission F11.21 [facility] [id number] [place] [address] 19234- 1756 Jun, [facility] [id number] [place] [address] 94336- 5101 Jun, Long-term use of high-risk medication Z79.899 [facility] [id number] [place] [address] 90551- 1509 Jun, CHI I (cervical intraepithelial neoplasia I) N87.0 [facility] [id number] [place] [address] 28823- 6281 May, Opioid use disorder, severe, in early remission F11.21 [facility] [id number] [place] [address] 44925- 5675 18 May, 2017 Chronic kidney disease, stage 3 N18.3 [facility] [id number] [place] [address] 68588- 9362 14 May, 2017 Chronic kidney disease, stage 3 N18.3 [facility] [address] [place] [address] 05 May, 2017 Opioid use disorder, severe, in sustained remission F11.21 [facility] [id number] [place] [address] 44955- 5273 Apr, LGSIL on Pap smear of cervix R87.612 [facility] [address] [place] [address] Apr, [facility] [id number] [place] [address] 70226- 5780 Apr, Opioid use disorder, severe, in early remission F11.21 [facility] [id number] [place] [address] 37044- 3426 Apr, Opioid use disorder, severe, in early remission F11.21 [facility] [id number] [place] [address] 96184- 3801 Apr, Opioid use disorder, severe, in early remission F11.21 [facility] [address] [place] [address] 90631- 9299 Apr, Opioid use disorder, severe, in early remission F11.21 [facility] [address] [place] [address] 71277- 7735 Apr, 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 [facility] [id number] [place] [address] 41527- 0053 Apr, Opioid use disorder, severe, in early remission F11.21 [facility] [address] [place] [address] Apr, Opioid use disorder, severe, in sustained remission F11.21 [facility] [id number] [place] [address] 45213- 8081 Apr, Opioid use disorder, severe, in early remission F11.21 [facility] [id number] [place] [address] 97513- 0010 Apr, Mild episode of recurrent major depressive disorder F33.0 and Right acute serous otitis media, recurrence not specified H65.01 [facility] [id number] [place] [address] 21824- 4888 Mar, [facility] [id number] [place] [address] 86034- 3548 Mar, Opioid use disorder, severe, in early remission F11.21 [facility] [id number] [place] [address] 29007- 7928 Mar, [facility] [address] [place] [address] Mar, Opioid use disorder, severe, in sustained remission F11.21 [facility] [address] [place] [address] Mar, Opioid use disorder, severe, in sustained remission F11.21 [facility] [id number] [place] [address] 21783- 5914 Mar, Opioid use disorder, severe, in early remission F11.21 [facility] [address] [place] [address] 56759- 0842 Jan, Opioid use disorder, severe, in early remission F11.21 [facility] [address] [place] [address] Jan, Opioid use disorder, severe, in sustained remission F11.21 [facility] [address] [place] [address] Jan, Opioid use disorder, severe, in sustained remission F11.21 [facility] [id number] [place] [address] 75710- 8921 Jan, Opioid use disorder, severe, in early remission F11.21 [facility] [address] [place] [address] Jan, Opioid use disorder, severe, in sustained remission F11.21 [facility] [id number] [place] [address] 25758- 2143 December, Opioid use disorder, severe, in early remission F11.21 [facility] [address] [place] [address] December, Opioid use disorder, severe, in sustained remission F11.21 [place] [id number] [place] [address] 50391- 6247 December, Routine gynecological examination Z01.419 and Chronic kidney disease, stage 3 N18.3 [place] [id number] [place] [address] 22938- 8590 December, Chronic kidney disease, stage 3 N18.3 ; 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 ; Gastroparesis K31.84 ; Essential hypertension I10 and Irritable bowel syndrome with constipation K58.1 [facility] [address] [place] [address] December, Opioid use disorder, severe, in sustained remission F11.21 [place] [id number] [place] [address] 55715- 2743 December, Opioid use disorder, severe, in early remission F11.21 [facility] [address] [place] [address] December, Opioid use disorder, severe, in sustained remission F11.21 [place] [id number] [place] [address] 79890- 8598 December, Encounter for therapeutic drug level monitoring Z51.81 [facility] [address] [place] [address] December, Opioid use disorder, severe, in sustained remission F11.21 [facility] [address] [place] [address] Dec, Opioid use disorder, severe, in sustained remission F11.21 [address] [place] [address]- 5741 Dec, Opioid use disorder, severe, in early remission F11.21 [facility] [id number] [place] [address] 94295- 8318 Dec, [facility] [address] [place] [address] Dec, Opioid use disorder, severe, in sustained remission F11.21 [facility] [id number] [place] [address] 77753- 0501 Dec, Opioid use disorder, severe, in early remission F11.21 [facility] [address] [place] [address] Dec, Opioid use disorder, severe, in sustained remission F11.21 [facility] [id number] [place] [address] 47717- 2339 Dec, 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 [facility] [id number] [place] [address] 22915- 6024 Dec, Opioid use disorder, severe, in sustained remission F11.21 ; Encounter for therapeutic drug level monitoring Z51.81 and Other intermediate ( current) drug therapy Z79.899 [facility] [address] [place] [address] Oct, Opioid use disorder, severe, in sustained remission F11.21 [facility] [address] [place] [address] 73342- 9168 Oct, Opioid use disorder, severe, in early remission F11.21 [facility] [address] [place] [address] 17014- 0680 Oct, [facility] [address] [place] [address] Oct, Opioid use disorder, severe, in sustained remission F11.21 [facility] [address] [place] [address] 06362- 3693 Oct, 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 [facility] [id number] [place] [address] 25514- 7783 14 Oct, 2016 Routine gynecological examination Z01.419 [facility] [address] 84805- 9424 07 Oct, 2016 Opioid use disorder, severe, in early remission F11.21 [facility] [address] 53238- 5634 06 Oct, 2016 Opioid use disorder, severe, in early remission F11.21 [facility] [address] 81606- 2998 Oct, Opioid use disorder, severe, in early remission F11.21 [facility] [address] [place] [address] Oct, Opioid use disorder, severe, in sustained remission F11.21 [facility] [address] 07777- 3894 24 Oct, 2016 Opioid use disorder, severe, in early remission F11.21 [facility] [address] 88112- 0514 23 Oct, 2016 Opioid use disorder, severe, in early remission F11.21 [facility] [address] [place] [address] 22 Oct, 2016 Opioid use disorder, severe, in sustained remission F11.21 [facility] [id number] [place] [address] 32821- 9973 Oct, Opioid use disorder, severe, in sustained remission F11.21 ; Encounter for therapeutic drug level monitoring Z51.81 and Other emt intermediate ( current) drug therapy Z79.899 [facility] [address] 49005- 8019 16 Oct, 2016 [facility] [address] [place] [address] 14 Oct, 2016 Opioid use disorder, severe, in early remission F11.21 [facility] [address] [place] [address] 10 Oct, 2016 Opioid use disorder, severe, in early remission F11.21 [facility] [address] [place] [address] 19580- 6860 Oct, Opioid use disorder, severe, in early remission F11.21 [facility] [address] [place] [address] 03195- 1045 Oct, [facility] [address] [place] [address] 62517- 8078 Oct, [facility] [id number] [place] [address] 12524- 3789 Oct, [facility] [address] [place] [address] Oct, Opioid use disorder, severe, in early remission F11.21 [facility] [id number] [place] [address] 60033- 8588 Sep, Opioid use disorder, severe, in early remission F11.21 [facility] [address] [place] [address] Sep, Opioid use disorder, severe, in early remission F11.21 [facility] [id number] [place] [address] 75067- 0360 Sep, Opioid use disorder, severe, in early remission F11.21 ; Other intermediate (current) drug therapy Z79.899 and Encounter for therapeutic drug level monitoring Z51.81 [facility] [id number] [place] [address] 94993- 7775 Sep, [facility] [address] [place] [address] 64048- 9203 Sep, [facility] [id number] [place] [address] 99954- 5324 Sep, Opioid use disorder, severe, 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 ; 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 ; Chronic kidney disease, stage 3 N18.3 ; Essential hypertension I10 and Irritable bowel syndrome with constipation K58.1 [facility] [address] [place] [address] Sep, Opioid use disorder, severe, in early remission F11.21 [facility] [address] [place] [address] Sep, Opioid use disorder, severe, 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 [place] [id number] [place] [address] 36239- 7052 Sep, Opioid use disorder, moderate, dependence F11.20 [facility] [address] [place] [address] 28802- 0552 Sep, Opioid use disorder, moderate, dependence F11.20 [facility] [address] [place] [address] Sep, Opioid use disorder, severe, in early remission F11.[address] 95807- 3524 Sep, Opioid use disorder, severe, in early remission F11.21 [facility] [address] [place] [address] Aug, Opioid use disorder, severe, in early remission F11.[address] 04602- 8552 Aug, Opioid use disorder, moderate, dependence F11.20 [facility] [address] [place] [id number] [place] [address] 30446 -1099 Aug, Bug bite without infection, initial encounter W57.XXXA [place] [id number] [place] [address] 03855- 6618 Aug, Opioid use disorder, moderate, dependence F11.20 [facility] [address] [place] [address] Aug, [address] 40253- 4131 Aug, Opioid use disorder, severe, in early remission F11.21 ; Other intermediate (current) drug therapy Z79.899 ; Encounter for therapeutic drug level monitoring Z51.81 and 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 [facility] [address] [place] [address] Aug, [facility] [address] 83513- 2405 Aug, Opioid use disorder, moderate, dependence F11.20 ; Other intermediate (current) drug therapy Z79.899 and Encounter for therapeutic drug level monitoring Z51.81 [facility] [address] 23859- 6099 Aug, [facility] [address] 25247- 4765 Aug, Non-intractable vomiting with nausea, unspecified vomiting type R11.2 [facility] [address] 52614- 3077 Aug, Opioid use disorder, moderate, dependence F11.20 and Non- intractable vomiting with nausea, unspecified vomiting type R11.2 [facility] [address] 51046- 8432 Aug, [facility] [address] 13729- 4835 Aug, Opioid use disorder, moderate, dependence F11.20 [facility] [address] 97396- 6719 Aug, [facility] [id number] [place] [address] 74605- 1288 Jul, 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 and Opioid use disorder, moderate, dependence F11.20 [facility] [address] [place] [address] Jul, [facility] [address] 92001- 9016 Jul, [facility] [address] 87082- 1308 Jul, [facility] [address] 38519- 0374 Jul, Addiction to drug F19.20 and Chronic kidney disease, stage 3 N18.3 [facility] [address] [place] [address] Jul, Counseling on substance use and abuse Z71.89 [facility] [id number] [place] [address] 21207- 8366 Jul, Chronic kidney disease, stage 3 N18.3 [facility] [id number] [place] [address] 86011- 7168 Jul, 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 ; Diarrhea, unspecified type R19.7 and Essential hypertension I10 [facility] [address] 77326- 2079 Jul, [facility] [id number] [place] [address] 13822- 6770 Jun, [facility] [address] 87328- 8584 Jun, [facility] [id number] [place] [address] 32351- 7715 Apr, 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 [facility] [id number] [place] [address] 83577- 1717 Apr, Sore throat and laryngitis J06.0 and Non-intractable vomiting with nausea, unspecified vomiting type R11.2 [facility] [id number] [place] [address] 01173- 8610 Apr, [facility] [id number] [place] [address] 12452- 4626 Mar, [facility] [address] 65002- 5963 Jan, [facility] [id number] [place] [address] 56727- 4809 Jan, [facility] [address] 58481- 7818 Jan, [facility] [address] 17416- 6638 December, 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 ; Gastroparesis K31.84 ; Mixed hyperlipidemia E78.2 ; Chronic kidney disease, stage 3 N18.3 ; Dysthymia F34.1 and Acute bilateral low back pain without sciatica M54.5 [facility] [address] 77361- 7015 December, [facility] [address] 08154- 5827 December, [facility] [address] 35939- 6348 Aug, Depression F32.9 and Gastroparesis K31.84 [facility] [address] 43250- 4561 Aug, Gastroparesis K31.84 [facility] [address] 02174- 1665 Jul, Recurrent UTI N39.0 ; Chronic kidney disease, stage 3 N18.3 and 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 [address] 75316 -3578 Jul, Dysuria R30.0 ; Urinary tract infection N39.0 and Nausea R11.0 [facility] [address] 22607- 1093 Jun, Dysuria R30.0 [facility] [address] [place] [address] 51318- 6893 Jun, Dysuria R30.0 [facility] [address] [place] [address] 34228- 6176 Jun, Dysuria R30.0 [facility] [id number] [place] [address] 34689- 7901 Jun, [facility] [id number] [place] [address] 02421- 5622 Jun, Acute cystitis with hematuria N30.01 [facility] [id number] [place] [address] 68967- 5988 May, [facility] [id number] [place] [address] 61366- 4815 Apr, Diabetes mellitus without mention of complication, type I [ juvenile type], not stated as uncontrolled 250.01 ; Gastroparesis due to DM 250.60 ; Contraception management V25.9 and Renal insufficiency 593.9 [facility] [id number] [place] [address] 99812- 6780 Apr, [facility] [address] [place] [address] Apr, [facility] [id number] [place] [address] Mar, [facility] [id number] [place] [address] Mar, Hyperlipidemia 272.4 and Hypertensive heart and chronic kidney disease, benign, without heart failure and with chronic kidney disease stage I through stage IV, or unspecified 404.10 [facility] [id number], [place] [address] Mar, Hyperlipidemia 272.4 ; Hyponatremia 276.1 ; 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 ; Hypertensive heart and chronic kidney disease, benign, without heart failure and with chronic kidney disease stage I through stage IV, or unspecified 404.10 ; Proteinuria 791.0 and Chronic kidney disease (CKD), stage III (moderate) 585.3 [facility] [id number] [place] [address] Mar, [facility] [id number] [place] [address] Mar, Elevated blood sugar level 790.29 [facility] [id number] [place] [address] Mar, Low grade squamous intraepithelial lesion (LGSIL) on cervical Pap smear 795.03 [facility] [address] [id number] [place] [address] 66692- 0498 Mar, Amenorrhea 626.0 [place] [id number] [place] [address] 93892- 4105 Jan, Amenorrhea 626.0 ; Routine gynecological examination V72.31 and Screen for STD (sexually transmitted disease) V74.5 [place] [id number] [place] [address] 81200- 6394 Jan, Amenorrhea 626.0 [place] [id number] [place] [address] 68599- 4315 Jan, Routine gynecological examination V72.31 ; Screen for STD ( sexually transmitted disease) V74.5 ; Pap test, as part of routine gynecological examination V76.2 ; Breast cancer screening V76.10 and Amenorrhea 626.0 [place] [id number] [address] 8648 December, [place] [id number] [place] [address] 52970- 7025 Dec, [place] [id number] [place] [address] 37737- 7877 Dec, [place] [id number] [place] [address] 91626- 5656 Oct, [facility] [place] [facility] [address] [id number] [place] [address] 7994 Oct, [facility] [place] [facility] [address] [id number] [place] [address]- 7790 Oct, [facility] [place] [facility] [address] [id number] [place] [address]- 9019 Oct, [facility] [place] [facility] [address] [id number] [place] [address]- 7537 Oct, [facility] [place] [facility] [address] [id number] [place] [address]- 4633 Oct, [facility] [place] [facility] [address] [id number] [place] [address]- 8405 Oct, [facility] [place] [facility] [address] [id number] [place] [address]- 0155 Oct, [facility] [place] [facility] [address] [id number] [place] [address]- 8487 Oct, [facility] [place] [facility] [address] [id number] [place] [address]- 0359 Oct, [facility] [place] [facility] [address] [id number] [place] [address]- 8791 Oct, [facility] [place] [facility] [address] [id number] [place] [address]- 5655 Sep, [facility] [place] [facility] [address] [id number] [place] [address]- 7488 Sep, [facility] [place] [facility] [address] [id number] [place] [address]- 8086 Sep, [facility] [place] [facility] [address] [id number] [place] [address]- 5488 Sep, [facility] [place] [facility] [address] [id number] [place] [address]- 0493 Sep, [facility] [place] [facility] [address] [id number] [place] [address]- 7767 16 Sep, 2014 [facility] [address] [id number] [place] [address]- 7244 Sep, [facility] [place] [facility] [address] [id number] [place] [address]- 9788 Sep, [facility] [place] [facility] [address] [id number] [place] [address]- 5891 Sep, [facility] [place] [facility] [address] [id number] [place] [address]- 2750 Sep, [facility] [place] [facility] [address] [id number] [place] [address]- 4715 Sep, [facility] [place] [facility] [address] [id number] [place] [address]- 2500 Sep, [facility] [place] [facility] [address] [id number] [place] [address]- 8853 Sep, [facility] [place] [facility] [address] [id number] [place] [address]- 1901 Sep, [facility] [place] [facility] [address] [id number] [place] [address]- 4708 Sep, [facility] [place] [facility] [address] [id number] [place] [address]- 8803 Sep, [facility] [place] [facility] [address] [id number] [place] [address]- 8745 Sep, [facility] [place] [facility] [address] [id number] [place] [address]- 3890 Sep, [facility] [place] [facility] [address] [id number] [place] [address]- 4354 Sep, [facility] [place] [facility] [address] [id number] [place] [address]- 4096 Sep, [facility] [place] [facility] [address] [id number] [place] [address]- 7958 Aug, [facility] [place] [facility] [address] [id number] [place] [address]- 0055 Aug, [facility] [place] [facility] [address] [id number] [place] [address]- 6021 Aug, [facility] [place] [facility] [address] [id number] [place] 7200 Aug, [facility] [place] [facility] [address] [id number] [place] [address]- 9580 Aug, [facility] [place] [facility] [address] [id number] [place] [address]- 1646 Aug, [facility] [place] [facility] [address] [id number] [place] [address]- 2018 Aug, [facility] [place] [facility] [address] [id number] [place] [address]- 7695 Aug, [facility] [place] [facility] [address] [id number] [place] [address]- 0007 Aug, [facility] [place] [facility] [address] [id number] [place] [address]- 0623 Aug, [facility] [place] [facility] [address] [id number] [place] [address]- 5643 Aug, [facility] [place] [facility] [address] [id number] [place] [address]- 1532 Aug, [facility] [place] [facility] [address] [id number], [place] [address]- 5422 Jul, [facility] [place] [facility] [address] [id number] [place] [address]- 1657 Jul, [facility] [place] [facility] [address] [id number] [place] [address]- 5341 Jul, [facility] [place] [facility] [address] [id number] [place] [address]- 2102 Jul, [facility] [place] [facility] [address] [id number] [place] 0013 Jul, [facility] [place] [facility] [address] [id number] [place] [address]- 2618 17 Jul, 2014 [facility] [place] [facility] [address] [id number] [place] [address]- 9675 Jul, [facility] [place] [facility] [address] [id number] [place] [address]- 8106 Jul, [facility] [place] [facility] [address] [id number] [place] [address]- 8354 Jul, [facility] [place] [facility] [address] [id number] [place] [address]- 4015 Jul, [facility] [place] [facility] [address] [id number] [place] [address]- 0496 Jun, [facility] [place] [facility] [address] [id number] [place] [address]- 1302 31 Jun, 2014 [facility] [place] [facility] [address] [id number] [place] [address]- 5620 30 Jun, 2014 [facility] [place] [facility] [address] [id number] [place] [address]- 9541 30 Jun, 2014 [facility] [place] [facility] [address] [facility] [id number] [place] [address]- 2283 30 Jun, 2014 [facility] [place] [facility] [address] [id number] [place] [address]- 5581 30 Jun, 2014 [facility] [place] [facility] [address] [id number] [place] [address]- 1322 15 Jun, 2014 [facility] [place] [facility] [address] [id number] [place] [address]- 0065 15 Jun, 2014 [facility] [place] [facility] [address] [id number] [place] [address]- 4509 May, [facility] [place] [facility] [address] [id number] [place]377 May, [facility] [place] [facility] [address] [id number] [place] [address]- 9485 May, 2013 [facility] [place] [facility] [address] [id number] [place] [address]- 3934 May, [facility] [place] [facility] [address] [id number] [place] [address]- 8272 May, [facility] [place] [facility] [address] [id number] [place] [address]- 2191 May, [facility] [place] [facility] [address] [id number] [place] [address]- 1323 May, [facility] [place] [facility] [address] [id number] [place] [address]- 2282 May, [facility] [place] [facility] [address] [id number] [place] [address]- 8787 Apr, [facility] [place] [facility] [address] [id number] [place] [address]- 0769 Apr, [facility] [place] [facility] [address] [id number] [place] [address]- 6954 Apr, [facility] [place] [facility] [address] [id number] [place] [address]- 3256 Apr, [facility] [place] [facility] [address] [id number] [place] [address]- 9985 Mar, [facility] [place] [facility] [address] [id number] [place] [address]- 9012 Mar, [facility] [place] [facility] [address] [id number] [place] [address]- 3566 Mar, [facility] [place] [facility] [address] [id number] [place] [address]- 3012 Mar, [facility] [place] [facility] [address] [id number] [place] [address]- 9881 Mar, [facility] [place] [facility] [address] [id number] [place] [address]- 4608 Mar, [facility] [place] [facility] [address] [id number] [place] [address]- 3097 Jan, [facility] [place] [facility] [address] [id number] [place] [address]- 6270 Jan, [facility] [place] [facility] [address] [id number] [place] [address]- 3758 Jan, [facility] [place] [facility] [address] [id number] [place] [address]- 0459 Jan, [facility] [place] [facility] [address] [id number] [place] [address]- 1007 Jan, [facility] [place] [facility] [address] [id number] [place] [address]- 9757 Jan, [facility] [place] [facility] [address] [id number] [place] [address]- 8316 Jan, [facility] [place] [facility] [address] [id number] [place] [address]- 7851 Jan, [facility] [place] [facility] [address] [id number] [place] [address]- 2293 Jan, [facility] [place] [facility] [address] [id number] [place] [address]- 0107 Jan, [facility] [place] [facility] [address] [id number] [place] [address]- 0732 Jan, [facility] [place] [facility] [address] [id number], [place] [address]- 7841 Jan, [facility] [place] [facility] [address] [id number] [place] [address]- 2896 December, [facility] [place] [facility] [address] [id number] [place] [address]- 5633 December, [facility] [place] [facility] [address] [id number] [place] [address]- 7312 December, [facility] [place] [facility] [address] [id number] [place] [address]- 2897 December, [facility] [address] [id number] [place] [address]- 0832 Dec, [facility] [place] [facility] [address] [id number] [place] [address]- 6198 Dec, [facility] [address] [id number] [place] [address]- 9296 Dec, [facility] [place] [facility] [address] [id number] [place] [address]- 9866 Dec, [facility] [address] [id number] [place] [address]- 3704 Dec, [facility] [address] [id number] [place] [address]- 5018 Dec, [facility] [address] [id number] [place] [address]- 7355 Dec, [facility] [address] [id number] [place] [address]- 6488 Dec, [facility] [place] [facility] [address] [id number] [place] [address]- 7351 Dec, [facility] [address] [id number] [place] [address]- 5222 Dec, [facility] [place] [facility] [address] [id number] [place] [address]- 5513 Dec, [facility] [place] [facility] [address] [id number] [place] [address]- 9163 Dec, [facility] [place] [facility] [address] [id number] [place] [address]- 3151 Dec, [facility] [place] [facility] [address] [id number] [place] [address]- 4219 Dec, [facility] [place] [facility] [address] [id number] [place] [address]- 0132 Oct, [facility] [place] [facility] [address] [id number] [place] [address]- 4316 31 Oct, 2013 [facility] [place] [facility] [address] [id number] [place] [address]- 4384 29 Oct, 2013 [facility] [place] [facility] [address] [id number] [place] [address]- 9420 29 Oct, 2013 [facility] [place] [facility] [address] [id number] [place] [address]- 1488 Oct, [facility] [address] [id number] [place] [address]- 8883 Oct, [facility] [place] [facility] [address] [id number] [place] [id number] Oct, [facility] [place] [facility] [address] [id number] [place] [address]- 3441 Oct, [facility] [place] [facility] [address] [id number] [place] [address]- 1386 Oct, [facility] [place] [facility] [address] [id number] [place] [address]- 9502 Oct, [facility] [place] [facility] [address] [id number] [place] [address]- 0877 Sep, [facility] [place] [facility] [address] [id number] [place] [address]- 4046 Sep, [facility] [place] [facility] [address] [id number] [place] [address]- 0165 Sep, [facility] [place] [facility] [address] [id number] [place] [address]- 0116 Sep, [facility] [place] [facility] [address] [id number] [place] [address]- 7990 Sep, [facility] [place] [facility] [address] [id number] [place] [address]- 4947 Sep, [facility] [place] [facility] [address] [id number], [place] [address]- 1275 Aug, [facility] [address] [facility] [id number], [place] [address]- 7245 Aug, [facility] [address] [id number] [address]- 0433 Jul, [facility] [address] [id number] [address]- 1905 Jul, [facility] [id number] [address]- 2786 Jul, [facility] [address] [id number] [address]- 5504 Jul, [facility] [address] [id number] [address]- 4400 Jul, IMMUNIZATIONS No Known Immunizations SOCIAL HISTORY Never Assessed REASON FOR VISIT [facility] PLAN OF CARE VITAL SIGNS MEDICATIONS Unknown [...]
--- OUTSIDE RECORDS SUMMARY | 2018-08-30 21:15 | XMS REPORT ---
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 [address] [place] [address] Jan, [facility] [address], [place] [address] December, Opioid use disorder, severe, in early remission F11.[address] 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 [facility] [id number] [place] [address] 26853[address] 7153 December, Opioid use disorder, severe, in early remission F11.21 [facility] [address] [place] [address] Dec, Opioid use disorder, severe, in sustained remission F11.21 [facility] [id number] [place] [address] 22589- 3417 Dec, 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 ; Unprotected sexual intercourse Z72.51 ; Pain of left thumb M79.645 ; Mixed hyperlipidemia E78.2 ; Gastroparesis K31.84 ; Essential hypertension I10 and Irritable bowel syndrome with constipation K58.1 [facility] [address] [address] Dec, Opioid use disorder, severe, in early remission F11.21 [facility] [id number] [place] [address] 31212- 9902 Oct, [facility] [id number] [place] [address] 95450- 3651 Oct, Opioid use disorder, severe, 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 [facility] [id number] [place] [address] 61791- 9366 Oct, [facility] [id number] [place] [address] 92444- 0526 Oct, Opioid use disorder, severe, 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 [facility] [id number] [place] [address] 08838- 9774 Oct, [facility] [address] [address] Oct, [facility] [address] [place] [address] Oct, Opioid use disorder, severe, in sustained remission F11.21 [facility] [id number] [place] [address] 61517- 6389 Sep, [facility] [address], [place] [address] Sep, [facility] [id number] [place] [address] 13069- 9426 Sep, Opioid use disorder, severe, 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 [facility] [address], [place] [address] Jul, [facility] [address] [place] [address] 38847 2546 Jun, [facility] [id number] [place] [address] 59719- 2546 Jun, [facility] [address] [place] [address] 75132- 3775 Jun, Opioid use disorder, moderate, dependence F11.20 and Opioid use disorder, severe, 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 [facility] [address] [place] [address] 54865- 7871 Jun, [facility] [id number] [place] [address] 46500- 3596 Jun, Long-term use of high-risk medication Z79.899 [facility] [id number] [place] [address] 73289- 4187 Jun, CHI I (cervical intraepithelial neoplasia I) N87.0 [place] [id number] [place] [address] 36742- 3564 22 May, 2017 Opioid use disorder, severe, 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 [facility] [id number] [place] [address] 55451- 0351 18 May, 2017 Chronic kidney disease, stage 3 N18.3 [place] [facility] [address] [address]- 1077 14 May, 2017 Chronic kidney disease, stage 3 N18.3 [facility] [address] [place] [address] 05 May, 2017 Opioid use disorder, severe, in sustained remission F11.21 [facility] [id number] [place] [address] 88018- 9793 Apr, LGSIL on Pap smear of cervix R87.612 [facility] [address] [place] [address] Apr, [facility] [id number] [place] [address] 19576- 9247 Apr, Opioid use disorder, severe, 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 [facility] [id number] [place] [address] 93806- 5831 Apr, Opioid use disorder, severe, 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 [facility] [id number] [place] [address] 10317- 4393 Apr, Opioid use disorder, severe, 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 [place] [address] [place] [address] 25158- 9849 18 Apr, 2017 Opioid use disorder, severe, 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 [facility] [id number] [place] [address] 66366- 5514 14 Apr, 2017 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 [facility] [id number] [place] [address] 78407- 4907 10 Apr, 2017 Opioid use disorder, severe, 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 [facility] [address] [place] [address] Apr, Opioid use disorder, severe, in sustained remission F11.21 [facility] [id number] [place] [address] 52659- 1135 09 Apr, 2017 Opioid use disorder, severe, 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 [facility] [id number] [place] [address] 88197- 4839 Apr, Mild episode of recurrent major depressive disorder F33.0 and Right acute serous otitis media, recurrence not specified H65.01 [facility] [id number] [place] [address] 92068- 3662 Mar, [facility] [id number] [place] [address] 97689- 2422 Mar, Opioid use disorder, severe, 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 [facility] [id number] [place] [address] 50975- 3793 Mar, [facility] [address] [place] [address] Mar, Opioid use disorder, severe, in sustained remission F11.21 [facility] [address] [place] [address] Mar, Opioid use disorder, severe, in sustained remission F11.21 [facility] [id number] [place] [address] 52054- 6287 Mar, Opioid use disorder, severe, in early remission F11.21 [facility] [address], [place] [address] 118[address] Jan, Opioid use disorder, severe, 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 [facility] [address] [place] [address] Jan, Opioid use disorder, severe, in sustained remission F11.21 [facility] [address] [place] [address] Jan, Opioid use disorder, severe, in sustained remission F11.21 [facility] [address] [place] [id number] [place] [address] 20576- 0595 Jan, Opioid use disorder, severe, in early remission F11.21 [facility] [address] [place] [address] Jan, Opioid use disorder, severe, in sustained remission F11.21 [place] [id number] [place] [address] 26133- 0219 December, Opioid use disorder, severe, in early remission F11.21 [facility] [address] [place] [address] December, Opioid use disorder, severe, in sustained remission F11.21 [place] [id number] [place] [address] 46546- 1848 December, Routine gynecological examination Z01.419 and Chronic kidney disease, stage 3 N18.3 [place] [id number] [place] [address] 97484- 6288 December, Chronic kidney disease, stage 3 N18.3 ; 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 ; Gastroparesis K31.84 ; Essential hypertension I10 and Irritable bowel syndrome with constipation K58.1 [facility] [address] [place] [address] December, Opioid use disorder, severe, in sustained remission F11.21 [facility] [address] [place] [id number] [place] [address] 05718- 0164 December, Opioid use disorder, severe, 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 [facility] [address] [place] [address] December, Opioid use disorder, severe, in sustained remission F11.21 [facility] [id number] [place] [address] 56359- 3023 December, Encounter for therapeutic drug level monitoring Z51.81 [facility] [address] [place] [address] December, Opioid use disorder, severe, in sustained remission F11.21 [facility] [address] [place] [address] Dec, Opioid use disorder, severe, in sustained remission F11.21 [facility] [id number] [place] [address] 99700- 6746 Dec, Opioid use disorder, severe, 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 [facility] [id number] [place] [address] 91500- 7501 Dec, [facility] [address] [place] [address] Dec, Opioid use disorder, severe, in sustained remission F11.21 [facility] [id number] [place] [address] 37337- 0127 Dec, Opioid use disorder, severe, 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 [facility] [address] [place] [address] Dec, Opioid use disorder, severe, in sustained remission F11.21 [facility] [address] [place] [id number] [place] [address] 48059- 1127 Dec, 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 [facility] [address] [place] [id number] [place] [address] 91582- 3947 Dec, Opioid use disorder, severe, in sustained remission F11.21 ; Encounter for therapeutic drug level monitoring Z51.81 and Other residential ( current) drug therapy Z79.899 [facility] [address] [place] [address] Oct, Opioid use disorder, severe, in sustained remission F11.21 [facility] [address] [place] [id number] [place] [address] 51877- 2923 Oct, Opioid use disorder, severe, in early remission F11.21 [facility] [id number] [place] [address] 96437- 9468 15 Oct, 2016 [facility] [address] [place] [address] 15 Oct, 2016 Opioid use disorder, severe, in sustained remission F11.21 [facility] [address] 57694- 4215 15 Oct, 2016 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 [facility] [address] 57482- 7315 14 Oct, 2016 Routine gynecological examination Z01.419 [place] [address] 07779- 7254 07 Oct, 2016 Opioid use disorder, severe, in early remission F11.21 [facility] [address] 71188- 3829 06 Oct, 2016 Opioid use disorder, severe, in early remission F11.21 [facility] [address] 26565- 9687 Oct, Opioid use disorder, severe, in early remission F11.21 [facility] [address] [place] [address] Oct, Opioid use disorder, severe, in sustained remission F11.21 [facility] [id number] [place] [address] 54878- 3677 Oct, Opioid use disorder, severe, in early remission F11.21 [facility] [id number] [place] [address] 31728- 4195 Oct, Opioid use disorder, severe, in early remission F11.21 [facility] [address] [place] [address] Oct, Opioid use disorder, severe, in sustained remission F11.21 [facility] [address] 84775- 1465 20 Oct, 2016 Opioid use disorder, severe, in sustained remission F11.21 ; Encounter for therapeutic drug level monitoring Z51.81 and Other residential ( current) drug therapy Z79.899 [facility] [id number] [place] [address] 76329- 1614 16 Oct, 2016 [facility] [address] [place] [address] 14 Oct, 2016 Opioid use disorder, severe, in early remission F11.21 [facility] [address] [place] [address] 10 Oct, 2016 Opioid use disorder, severe, in early remission F11.21 [facility] [address] 51272- 7711 09 Oct, 2016 Opioid use disorder, severe, in early remission F11.21 [facility] [address] 82919- 1536 08 Oct, 2016 [facility] [address] 52633- 1187 Oct, [facility] [id number] [place] [address] 79254- 5289 Oct, [facility] [address] [place] [address] Oct, Opioid use disorder, severe, in early remission F11.21 [facility] [id number] [place] [address] 68749- 4299 Sep, Opioid use disorder, severe, in early remission F11.21 [facility] [address] [place] [address] Sep, Opioid use disorder, severe, 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 [facility] [address] 84389- 5183 Sep, Opioid use disorder, severe, 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 ; 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 and Encounter for therapeutic drug level monitoring Z51.81 [facility] [address] [place] [address]- 9649 Sep, [facility] [address] 64894- 9542 Sep, [facility] [address] 70284- 9598 Sep, Opioid use disorder, severe, 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 ; 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 ; Chronic kidney disease, stage 3 N18.3 ; Essential hypertension I10 and Irritable bowel syndrome with constipation K58.1 [facility] [address] [place] [address] Sep, Opioid use disorder, severe, in early remission F11.21 [facility] [address] [place] [address] Sep, Opioid use disorder, severe, in early remission F11.[address] [address]40- 1370 Sep, Opioid use disorder, moderate, dependence F11.20 [facility] [address] 26746- 8976 Sep, Opioid use disorder, moderate, dependence F11.20 [facility] [address] [place] [address] Sep, Opioid use disorder, severe, in early remission F11.[address] 39328- 7444 Sep, Opioid use disorder, severe, in early remission F11.21 [facility] [address] [place] [address] Aug, Opioid use disorder, severe, 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 [facility] [address] [place] [address] 75069- 7554 Aug, Opioid use disorder, moderate, dependence F11.20 [facility] [address] 79357 [address]6838 Aug, Bug bite without infection, initial encounter W57.XXXA [place] [address], [place] [address]- 7409 Aug, Opioid use disorder, moderate, dependence F11.20 [facility] [address] [place] [address] Aug, [facility] [id number] [place] [address] 89066- 2624 19 Aug, 2016 Opioid use disorder, severe, 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 ; Other residential (current) drug therapy Z79.899 ; Encounter for therapeutic drug level monitoring Z51.81 and 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 [facility] [address] [place] [address] 15 Aug, 2016 [facility] [id number] [place] [address] 53696- 3540 15 Aug, 2016 Opioid use disorder, moderate, dependence F11.20 ; Other residential (current) drug therapy Z79.899 and Encounter for therapeutic drug level monitoring Z51.81 [facility] [id number] [place] [address] 81078- 0956 13 Aug, 2016 [facility] [id number] [place] [address] 19769- 3242 Aug, Non-intractable vomiting with nausea, unspecified vomiting type R11.2 [facility] [id number] [place] [address] 86895- 6093 Aug, Opioid use disorder, moderate, dependence F11.20 and Non- intractable vomiting with nausea, unspecified vomiting type R11.2 [facility] [address] [place] [address] 55581- 3223 Aug, [facility] [id number] [place] [address] 73566- 3194 Aug, Opioid use disorder, moderate, dependence F11.20 [facility] [id number] [place] [address] 37223- 7764 Aug, [facility] [id number] [place] [address] 39054- 6858 Jul, 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 and Opioid use disorder, moderate, dependence F11.20 [facility] [address] [place] [address] Jul, [facility] [id number] [place] [address] 69801- 7705 Jul, [facility] [id number] [place] [address] 21686- 2216 Jul, [facility] [id number] [place] [address] 16526- 7368 Jul, Addiction to drug F19.20 and Chronic kidney disease, stage 3 N18.3 [facility] [address] [place] [address] Jul, Counseling on substance use and abuse Z71.89 [place] [id number] [place] [address] 18533- 1457 Jul, Chronic kidney disease, stage 3 N18.3 [facility] [id number] [place] [address] 23048- 3244 Jul, 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 ; Diarrhea, unspecified type R19.7 and Essential hypertension I10 [facility] [id number] [place] [address] 32969- 8160 Jul, [facility] [id number] [place] [address] 34385- 8973 Jun, [facility] [id number] [place] [address] 77394- 6274 Jun, [facility] [id number] [place] [address] 70155- 4741 Apr, 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 [facility] [id number] [place] [address] 05786- 1504 Apr, Sore throat and laryngitis J06.0 and Non-intractable vomiting with nausea, unspecified vomiting type R11.2 [facility] [address] [address]- 4183 Apr, [facility] [id number] [place] [address] 49955- 9992 Mar, [facility] [id number] [place] [address] 11686- 2320 Jan, [facility] [id number] [place] [address] 48563- 0205 Jan, [facility] [id number] [place] [address] 57649- 6188 Jan, [place] [id number] [place] [address] 19581- 5919 December, 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 ; Gastroparesis K31.84 ; Mixed hyperlipidemia E78.2 ; Chronic kidney disease, stage 3 N18.3 ; Dysthymia F34.1 and Acute bilateral low back pain without sciatica M54.5 [facility] [id number] [place] [address] 01527- 7642 December, [facility] [id number] [place] [address] 49266- 3893 December, [facility] [id number] [place] [address] 60683- 1109 Aug, Depression F32.9 and Gastroparesis K31.84 [facility] [address] [place] [address] 52322- 6992 Aug, Gastroparesis K31.84 [facility] [id number] [place] [address] 69155- 2524 Jul, Recurrent UTI N39.0 ; Chronic kidney disease, stage 3 N18.3 and 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 [facility] [id number] [place] [address] 18852- 3064 Jul, [facility] [address] [address] Jul, Dental examination Z01.20 and Dental caries K02.9 [facility] [id number] [place] [address] 41983- 3708 Jul, [facility] [id number] [place] [phone] Jul, Dysuria R30.0 ; Urinary tract infection N39.0 and Nausea R11.0 [facility] [id number] [place] [phone] Jun, Dysuria R30.0 [facility] [id number] [place] [phone] Jun, Dysuria R30.0 [facility] [id number] [place] [phone] Jun, Dysuria R30.0 [facility] [id number] [place] [address] 43886- 1042 Jun, [facility] [id number] [place] [address] 21642- 7337 Jun, Acute cystitis with hematuria N30.01 [facility] [id number] [place] [address] 13902- 5121 May, [facility] [id number] [place] [address] 25755- 6164 Apr, Diabetes mellitus without mention of complication, type I [ juvenile type], not stated as uncontrolled 250.01 ; Gastroparesis due to DM 250.60 ; Contraception management V25.9 and Renal insufficiency 593.9 [facility] [id number] [place] [address] 17979- 2921 Apr, [facility] [id number] [place] [address] 41518- 7000 Apr, [facility] [address] [place] [address]- 9149 Mar, [place] [id number] [place] [address] 52612- 1486 Mar, Hyperlipidemia 272.4 and Hypertensive heart and chronic kidney disease, benign, without heart failure and with chronic kidney disease stage I through stage IV, or unspecified 404.10 [place] [id number] [place] [address] 38214- 7495 Mar, Hyperlipidemia 272.4 ; Hyponatremia 276.1 ; 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 ; Hypertensive heart and chronic kidney disease, benign, without heart failure and with chronic kidney disease stage I through stage IV, or unspecified 404.10 ; Proteinuria 791.0 and Chronic kidney disease (CKD), stage III (moderate) 585.3 [place] [id number] [place] [address] 84295- 7096 Mar, [id number] [place] [address] 27569- 4498 Mar, Elevated blood sugar level 790.29 [id number] [place] [address] 47498- 8235 Mar, Low grade squamous intraepithelial lesion (LGSIL) on cervical Pap smear 795.03 [id number] [place] [address] 65323- 2239 Mar, Amenorrhea 626.0 [id number] [place] [address] 55950- 8373 Jan, Amenorrhea 626.0 ; Routine gynecological examination V72.31 and Screen for STD (sexually transmitted disease) V74.5 [id number] [place] [address] 02763- 1177 Jan, Amenorrhea 626.0 [id number] [place] [address] 79042- 3305 Jan, Routine gynecological examination V72.31 ; Screen for STD ( sexually transmitted disease) V74.5 ; Pap test, as part of routine gynecological examination V76.2 ; Breast cancer screening V76.10 and Amenorrhea 626.0 [facility] [address] [facility] [id number] [place] [address] 5517 December, [facility] [address] [facility] [id number] [place] [address]- 8904 Dec, [facility] [address] [facility] [id number], [place] [address] 5524 Dec, [facility] [address] [facility] [id number] [place] [address] Oct, [facility] [address] [place] [address] 8052 Oct, [facility] [address] 1672 Oct, [facility] [address] [address] 0003 Oct, [facility] [id number] [address] 9972 Oct, [facility] [address] [address]- 3076 Oct, [facility] [address] 0382 Oct, [facility] [address], [place] [address]- 4247 Oct, [facility] [address] [facility] [id number] [place] 5411 Oct, [facility] [address] 2516 Oct, [facility] [id number] [address]- 7112 Oct, [facility] [address], [place] [address]- 5141 Sep, [facility] [place] [facility] [address] [id number] [place] [address]- 9881 Sep, [facility] [place] [facility] [address] [id number] [place] [address]- 5873 Sep, [facility] [place] [facility] [address] [id number] [place] [address]- 0841 Sep, [facility] [place] [facility] [address] [id number] [place] [address]- 7137 Sep, [facility] [place] [facility] [address] [id number] [place] [address]- 0095 Sep, [facility] [place] [facility] [address] [id number] [place] [address]- 7354 Sep, [facility] [place] [facility] [address] [id number] [place] [address]- 0248 Sep, [facility] [place] [facility] [address] [id number] [place] [address]- 3419 Sep, [facility] [place] [facility] [address] [id number] [place] [address]- 5183 Sep, [facility] [place] [facility] [address] [id number] [place] [address]- 8269 Sep, [facility] [place] [facility] [address] [id number], [place] [address]- 2546 Sep, [facility] [place] [facility] [address] [id number], [place] [address]- 3331 Sep, [facility] [place] [facility] [address] [id number] [place] [address]- 2781 Sep, [facility] [place] [facility] [address] [id number], [place] [address]- 5273 Sep, [facility] [place] [facility] [address] [id number] [place] [address]- 9374 Sep, [facility] [place] [facility] [address] [id number] [place] [address]- 3537 Sep, [facility] [address] [id number] [place] [address]- 1000 Sep, [facility] [place] [facility] [address] [id number] [place] [address]- 5546 Sep, [facility] [address] [id number] [place] [address]- 6022 Sep, [facility] [address] [id number] [place] [address]- 5772 Aug, [facility] [address] [id number] [place] [address]- 9593 Aug, [facility] [address] [id number] [place] [address]- 0081 Aug, [facility] [address] [id number] [place] [address]- 4689 Aug, [facility] [address] [id number] [place] [address]- 4290 08 Aug, 2014 [facility] [address] [id number] [place] [address]- 4988 Aug, [facility] [address] [id number] [place] [address]- 1415 Aug, [facility] [place] [facility] [address] [id number] [place] [address]- 0460 Aug, [facility] [place] [facility] [address] [id number] [place] [address]- 8862 Aug, [facility] [place] [facility] [address] [id number] [place] [address]- 2008 Aug, [facility] [place] [facility] [address] [id number] [place] [address]- 5966 Aug, [facility] [place] [facility] [address] [id number] [place] [address]- 6066 Aug, [facility] [place] [facility] [address] [id number] [place] [address]- 3709 Jul, [facility] [place] [facility] [address] [id number] [place] [address]- 6492 Jul, [facility] [place] [facility] [address] [id number] [place] [address]- 2339 Jul, [facility] [place] [facility] [address] [id number] [place] [address]- 8795 Jul, [facility] [place] [facility] [address] [id number] [place] [address]- 4450 Jul, [facility] [place] [facility] [address] [id number] [place] [address]- 7211 Jul, [facility] [place] [facility] [address] [id number] [place] [address]- 4063 Jul, [facility] [place] [facility] [address] [id number] [place] [address]- 2581 Jul, [facility] [place] [facility] [address] [id number] [place] [address]- 1218 Jul, [facility] [place] [facility] [address] [id number] [place] [address]- 3062 Jul, [facility] [place] [facility] [address] [id number] [place] [address]- 5674 Jun, [facility] [place] [facility] [address] [id number], [place] [address]- 2057 Jun, [facility] [place] [facility] [address] [id number] [place] [address]- 1696 Jun, [facility] [place] [facility] [address] [id number] [place] [address]- 1294 Jun, [facility] [place] [facility] [address] [id number] [place] [address]- 2594 Jun, [facility] [place] [facility] [address] [id number] [place] [address]- 1725 30 Jun, 2014 [facility] [place] [facility] [address] [id number] [place] [address]- 0127 15 Jun, 2014 [facility] [place] [facility] [address] [id number] [place] [address]- 3501 15 Jun, 2014 [facility] [place] [facility] [address] [id number] [place] [address]- 2938 22 May, 2013 [facility] [place] [facility] [address] [id number] [place] [address]- 6643 22 May, 2013 [facility] [place] [facility] [address] [id number] [place] [address]- 3584 18 May, 2014 [facility] [place] [facility] [address] [id number] [place] [address]- 2192 18 May, 2013 [facility] [place] [facility] [address] [id number] [place] [address]- 2569 09 May, 2014 [facility] [place] [facility] [address] [id number] [place] [address]- 3703 08 May, 2014 [facility] [place] [facility] [address] [id number] [place] [address]- 4225 02 May, 2014 [facility] [place] [facility] [address] [id number] [place] [address]- 2963 02 May, 2014 [facility] [place] [facility] [address] [id number] [place] [address]- 0779 Apr, [facility] [place] [facility] [address] [id number] [place] [address]- 3513 Apr, [facility] [place] [facility] [address] [id number] [place] [address]- 3194 Apr, [facility] [place] [facility] [address] [id number] [place] [address]- 5832 Apr, [facility] [place] [facility] [address] [id number] [place] [address]- 8143 Mar, [facility] [place] [facility] [address] [id number] [place] [address]- 9752 Mar, [facility] [place] [facility] [address] [id number] [place] [address]- 8734 Mar, [facility] [place] [facility] [address] [id number] [place] [address]- 3838 Mar, [facility] [place] [facility] [address] [id number] [place] [address]- 4848 Mar, [facility] [place] [facility] [address] [id number] [place] [address]- 1886 Mar, [facility] [place] [facility] [address] [id number] [place] [address]- 2312 Jan, [facility] [place] [facility] [address] [id number] [place] [address]- 1956 Jan, [facility] [place] [facility] [address] [id number] [place] [address]- 5042 Jan, [facility] [place] [facility] [address] [id number] [place] [address]- 8288 Jan, [facility] [place] [facility] [address] [id number] [place] [address]- 0608 Jan, [facility] [place] [facility] [address] [id number] [place] [address]- 6892 Jan, [facility] [place] [facility] [address] [id number] [place] [address]- 2290 Jan, [facility] [place] [facility] [address] [id number] [place] [address]- 2304 Jan, [facility] [place] [facility] [address] [id number] [place] [address]- 2107 Jan, [facility] [place] [facility] [address] [id number] [place] [address]- 9085 Jan, [facility] [place] [facility] [address] [id number] [place] [address]- 0292 Jan, [facility] [place] [facility] [address] [id number] [place] 6070 Jan, [facility] [place] [facility] [address] [id number] [place] [address]- 7817 December, [facility] [place] [facility] [address] [id number] [place] 2967 December, [facility] [place] [facility] [address] [id number] [place] 8723 December, [facility] [place] [facility] [address] [id number] [place] [address]- 2217 December, [facility] [place] [facility] [address] [id number] [place] [address]- 6971 Dec, [facility] [place] [facility] [address] [id number] [place] [address]- 3440 Dec, [facility] [place] [facility] [address] [id number] [place] [address]- 6759 Dec, [facility] [place] [facility] [address] [id number] [place] [address]- 6825 Dec, [facility] [place] [facility] [address] [id number] [place] [address]- 6728 Dec, [facility] [place] [facility] [address] [id number], [place] [address]- 3190 Dec, [facility] [place] [facility] [address] [id number], [place] [address]- 1019 Dec, [facility] [place] [facility] [address] [id number] [place] [address]- 2478 Dec, [facility] [place] [facility] [address] [id number] [place] [address]- 7041 Dec, [facility] [place] [facility] [address] [id number] [place] [address]- 1861 Dec, [facility] [place] [facility] [address] [id number] [place] [address]- 3827 Dec, [facility] [place] [facility] [address] [id number] [place] [address]- 3353 Dec, [facility] [place] [facility] [address] [id number] [place] [address]- 2868 Dec, [facility] [place] [facility] [address] [id number] [place] [address]- 8363 Dec, [facility] [place] [facility] [address] [id number] [place] [address]- 7768 Oct, [facility] [place] [facility] [address] [id number] [place] [address]- 6225 Oct, [facility] [place] [facility] [address] [id number] [place] [address]- 2460 Oct, [facility] [place] [facility] [address] [id number] [place] [address]- 5707 Oct, [facility] [place] [facility] [address] [id number] [place] [address]- 4621 Oct, [facility] [place] [facility] [address] [id number] [place] [address]- 7855 Oct, [facility] [place] [facility] [address] [facility] [id number] [place] [address] Oct, [facility] [place] [facility] [address] [id number] [place] [address]- 9895 Oct, [facility] [place] [facility] [address] [id number] [place] [address]- 5898 Oct, [facility] [place] [facility] [address] [id number] [place] [address]- 1028 Oct, [facility] [place] [facility] [address] [id number] [place] [address]- 2303 Sep, [facility] [place] [facility] [address] [id number] [place] [address]- 7221 Sep, [facility] [address] [address]- 6587 Sep, [facility] [address], [place] [address]- 0362 Sep, [facility] [address], [place] [address]- 3796 Sep, [facility] [address], [place] [address]- 3623 Sep, [facility] [address], [place] [address]- 7737 Aug, [facility] [address], [place] [address]- 4646 Aug, [facility] [address], [place] [address]- 8868 Jul, [facility] [address], [place] [address]- 2909 Jul, [facility] [address], [place] [address]- 0838 Jul, [facility] [address], [place] [address]- 8917 Jul, [facility] [id number] [address]- 4682 Jul, IMMUNIZATIONS No Known Immunizations SOCIAL HISTORY Never Assessed REASON FOR VISIT SUBAB F/U PLAN OF CARE Activity Details Follow Up 3 Weeks Reason: VITAL SIGNS MEDICATIONS Unknown Medications RESULTS No Results PROCEDURES Procedure Date Ordered Result Body Site Psychotherapy, patient &/family, 30 minutes, established patient Jul 23, 2017 INSTRUCTIONS MEDICATIONS ADMINISTERED No Known Medications [...]
--- OUTSIDE RECORDS SUMMARY | 2018-08-30 21:16 | XMS REPORT ---
Author Author CARLOTTA MIR [facility] Address [address] [place] [address] Care Team Providers Care Civil Engineering Teacher Name Role Phone AALIYAHGUZMANCARLOTTA Unavailable PROBLEMS Type Condition ICD9-CM Code [id number] Code Onset Dates Condition Status SNOMED Code Problem Essential hypertension I10 Active 06400480 Problem Addiction to drug F19.20 Active 219922585 Problem Diarrhea, unspecified type R19.7 Active 00151388 Problem CHI I (cervical intraepithelial neoplasia I) N87.0 Active 976417704 Problem Right acute serous otitis media, recurrence not specified H65.01 Active 115154171 Problem Irritable bowel syndrome with constipation K58.1 Active 716526394 Problem Encounter for therapeutic drug level monitoring Z51.81 Active 145807080 Problem Mild episode of recurrent major depressive disorder F33.0 Active 048830839 Problem Opioid use disorder, severe, in sustained remission F11.21 Active 78751086 Problem Long-term use of high-risk medication Z79.899 Active 471109568 Problem Recurrent UTI N39.0 Active 072000430 Problem Gastroparesis K31.84 Active 437380241 Problem Acute bilateral low back pain without sciatica M54.5 Active 995283295 Problem 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 Active 29666202 Problem Mixed hyperlipidemia E78.2 Active 363270534 Problem Chronic kidney disease, stage 3 N18.3 Active 099472860 Problem Dysthymia F34.1 Active 00992942 ALLERGIES No Information SOCIAL HISTORY Never Assessed PLAN OF CARE Activity Details Follow Up 1 Week Reason: VITAL SIGNS MEDICATIONS Unknown Medications RESULTS No Results PROCEDURES Procedure Date Ordered Result Body Site Psychotherapy, patient &/family, 30 minutes, established patient January 08, 2017 IMMUNIZATIONS No Known Immunizations MEDICAL (GENERAL) HISTORY Type Description Date Medical History Type 1 Diabetes mellitus Medical History hx of hypertension Medical History gastroparesis Medical History hx of renal insufficiency 09/2014 Medical History Unspecified renal failure Medical History Gastroparesis due to DM Surgical History oral surgery at age 16 Hospitalization History Gastroperisis 2012
--- OUTSIDE RECORDS SUMMARY | 2018-08-30 21:16 | XMS REPORT ---
Author Author YANNICK JOSUE Organization [facility] Address [address] [place] [address] Care Team Providers Care Electronic Systems Technician Name Role Phone YANNICK JOSUE Unavailable PROBLEMS Type Condition ICD9-CM Code JAK84-PA Code Onset Dates Condition Status SNOMED Code Problem Diarrhea, unspecified type R19.7 Active 66454065 Problem Other [facility] drug therapy Z79.899 Active 942891629 Problem Addiction to drug F19.20 Active 874688551 Problem CHI I (cervical intraepithelial neoplasia I) N87.0 Active 636258273 Problem Right acute serous otitis media, recurrence not specified H65.01 Active 007517203 Problem Irritable bowel syndrome with constipation K58.1 Active 309549292 Problem Encounter for therapeutic drug level monitoring Z51.81 Active 183306003 Problem Mild episode of recurrent major depressive disorder F33.0 Active 449338344 Problem Opioid use disorder, severe, in sustained remission F11.21 Active 79843035 Problem Recurrent UTI N39.0 Active 901023615 Problem Chronic kidney disease, stage 3 N18.3 Active 144848701 Problem Acute bilateral low back pain without sciatica M54.5 Active 696818406 Problem Dysthymia F34.1 Active 76932490 Problem 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
--- OUTSIDE RECORDS SUMMARY | 2018-08-30 21:17 | XMS REPORT ---
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 Active 55970522 Problem Chronic kidney disease, stage 3 N18.3 Active 529398993 Problem CHI I (cervical intraepithelial neoplasia I) N87.0 Active 059282606 Problem Mild episode of recurrent major depressive disorder F33.0 Active 467277808 Problem Addiction to drug F19.20 Active 157060433 Problem Essential hypertension I10 Active 33957389 Problem Opioid use disorder, severe, in sustained remission F11.21 Active 51863775 Problem Irritable bowel syndrome with constipation K58.1 Active 683343769 ALLERGIES No Information ENCOUNTERS Encounter Location Date Diagnosis [place] [id number] [place] [address] 26012- 2145 December, [facility] [address] [place] [address] Dec, [facility] [address] [place] [address] 97233- 0291 Dec, 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 ; Unprotected sexual intercourse Z72.51 ; Pain of left thumb M79.645 ; Mixed hyperlipidemia E78.2 ; Gastroparesis K31.84 ; Essential hypertension I10 and Irritable bowel syndrome with constipation K58.1 [facility] [address] [place] [id number] [place] [address] 56235- 0190 Dec, Opioid use disorder, severe, in early remission F11.21 [facility] [address] [place] [id number] [place] [address] 92831- 2386 Oct, [facility] [address] [address] [id number] [place] [address] 54545 2546 Oct, Opioid use disorder, severe, in early remission F11.21 [facility] [address] [place] [id number] [place] [address] 07343 2546 Oct, [facility] [address] [place] [id number] [place] [address] 88255 2546 Oct, Opioid use disorder, severe, in early remission F11.21 [facility] [address] [address] [id number] [place] [address] 41623 2546 Oct, [facility] [address] [address] [id number] [place] [address] 39406 2546 Oct, [facility] [address] [place] [address] Oct, Opioid use disorder, severe, in sustained remission F11.21 [facility] [address] [place] [id number] [place] [address] 33899- 7676 Sep, [facility] [address] [address] [id number] [place] [address] 17860- 4906 Sep, [facility] [address] [place] [address] [id number] [place] [address] 70928- 2546 Sep, Opioid use disorder, severe, in early remission F11.21 [facility] [address] [place] [address] 73624 2546 Aug, Opioid use disorder, severe, in early remission F11.21 [facility] [address] [place] [address] [id number] [place] [address] 60868- 3756 Jul, [facility] [address] [place] [id number] [place] [address] 02838- 2536 21 Nov, 2017 Chronic kidney disease, stage 3 N18.3 ; Dysthymia F34.1 and Opioid use disorder, severe, in sustained remission F11.21 [facility] [address] [place] [address] Jul, Opioid use disorder, severe, in sustained remission F11.21 [facility] [address] [place] [id number] [place] [address] 52431- 0378 Jul, Long-term use of high-risk medication Z79.899 and Chronic kidney disease, stage 3 N18.3 [facility] [address] [place] [id number] [place] [address] 13779- 0107 Jul, Opioid use disorder, severe, in 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 [place] [address] [place] [id number] [place] [address] 50120- 5437 Jul, [place] [address] [place] [id number] [place] [address] 12586- 3644 Jun, [facility] [address] [place] [id number] [place] [address] 87371- 6972 Jun, [facility] [address] 07545- 1629 Jun, Opioid use disorder, moderate, dependence F11.20 and Opioid use disorder, severe, in early remission F11.21 [facility] [address] [place] [id number] [place] [address] 97659- 9339 Jun, [place] [address] [place] [id number] [place] [address] 08118- 9393 Jun, Long-term use of high-risk medication Z79.899 [facility] [address] [place] [id number] [place] [address] 44885- 7560 Jun, CHI I (cervical intraepithelial neoplasia I) N87.0 [place] [address] [place] [id number] [place] [address] 09666- 2195 May, Opioid use disorder, severe, 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 [place] [address] [place] [address] 9544 18 May, 2017 Chronic kidney disease, stage 3 N18.3 [facility] [address] [place] [address] [id number] [place] [address] 73061- 5513 14 May, 2017 Chronic kidney disease, stage 3 N18.3 [facility] [address] [place] [address] 05 May, 2017 Opioid use disorder, severe, in sustained remission F11.21 [facility] [address] [place] [id number] [place] [address] 91501- 6539 Apr, LGSIL on Pap smear of cervix R87.612 [facility] [address] [place] [address] Apr, [facility] [address] [place] [id number] [place] [address] 15050- 8525 Apr, Opioid use disorder, severe, 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 [facility] [address] [place] [id number] [place] [address] 53047- 5287 Apr, Opioid use disorder, severe, 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 [facility] [address] [place] [id number] [place] [address] 87016- 4950 Apr, Opioid use disorder, severe, 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 [facility] [address] [place] [id number] [place] [address] 41062- 2735 Apr, Opioid use disorder, severe, 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 [facility] [address] [place] [id number] [place] [address] 90646- 0409 14 Apr, 2017 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 [facility] [address] [place] [id number] [place] [address] 92674- 5874 Apr, Opioid use disorder, severe, 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 [facility] [address] [place] [address] Apr, Opioid use disorder, severe, in sustained remission F11.21 [facility] [address] [place] [id number] [place] [address] 63221- 8797 Apr, Opioid use disorder, severe, 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 [facility] [address] [place] [id number] [place] [address] 32081- 9405 Apr, Mild episode of recurrent major depressive disorder F33.0 and Right acute serous otitis media, recurrence not specified H65.01 [facility] [address] [place] [address] [id number] [place] [address] 44638- 2707 Mar, [facility] [address] [place] [id number] [place] [address] 68042- 2523 Mar, Opioid use disorder, severe, in early remission F11.21 [facility] [address] 96070- 6606 Mar, [facility] [address] [place] [address] Mar, Opioid use disorder, severe, in sustained remission F11.21 [facility] [address] [place] [address] Mar, Opioid use disorder, severe, in sustained remission F11.21 [facility] [address] [place] [id number] [place] [address] 34715- 9586 Mar, Opioid use disorder, severe, in early remission F11.21 [facility] [address] [place] [id number] [place] [address] 55782- 2416 Jan, Opioid use disorder, severe, in early remission F11.21 [facility] [address] [place] [address] Jan, Opioid use disorder, severe, in sustained remission F11.21 [facility] [address] [place] [address] Jan, Opioid use disorder, severe, in sustained remission F11.21 [facility] [address] [place] [id number] [place] [address] 11253- 7438 Jan, Opioid use disorder, severe, in early remission F11.21 [facility] [address] [place] [address] Jan, Opioid use disorder, severe, in sustained remission F11.21 [facility] [address] [place] [address] 01477- 1695 December, Opioid use disorder, severe, in early remission F11.21 [facility] [address] [place] [address] December, Opioid use disorder, severe, in sustained remission F11.21 [facility] [address] [place] [id number] [place] [address] 50502- 0418 December, Routine gynecological examination Z01.419 and Chronic kidney disease, stage 3 N18.3 [place] [id number] [place] [address] 92447- 2159 December, Chronic kidney disease, stage 3 N18.3 ; 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 ; Gastroparesis K31.84 ; Essential hypertension I10 and Irritable bowel syndrome with constipation K58.1 [facility] [address] [place] [address] December, Opioid use disorder, severe, in sustained remission F11.21 [facility] [address] [place] [id number] [place] [address] 32234- 4793 December, Opioid use disorder, severe, 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 [facility] [address] [place] [address] December, Opioid use disorder, severe, in sustained remission F11.21 [place] [id number] [place] [address] 25990- 8951 December, Encounter for therapeutic drug level monitoring Z51.81 [facility] [address] [place] [address] December, Opioid use disorder, severe, in sustained remission F11.21 [facility] [address] [place] [address] Dec, Opioid use disorder, severe, in sustained remission F11.21 [facility] [address] [place] [id number] [place] [address] 63551- 8272 Dec, Opioid use disorder, severe, 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 [facility] [address] [place] [address] [address] 5467 Dec, [facility] [address] [place] [address] Dec, Opioid use disorder, severe, in sustained remission F11.21 [facility] [address] [place] [id number] [place] [address] 74369- 2484 Dec, Opioid use disorder, severe, 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 [facility] [address] [place] [address] 06 Dec, 2016 Opioid use disorder, severe, in sustained remission F11.21 [facility] [address] [place] [id number] [place] [address] 85658- 0795 Dec, 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 [facility] [address] [place] [id number] [place] [address] 52738- 4583 03 Dec, 2016 Opioid use disorder, severe, in sustained remission F11.21 ; Encounter for therapeutic drug level monitoring Z51.81 and Other detention ( current) drug therapy Z79.899 [facility] [address] [place] [address] 31 Oct, 2016 Opioid use disorder, severe, in sustained remission F11.21 [facility] [address] [place] [id number] [place] [address] 36857- 5754 23 Oct, 2016 Opioid use disorder, severe, in early remission F11.21 [facility] [address] [place] [id number] [place] [address] 52609- 5090 15 Oct, 2016 [facility] [address] [place] [address] Oct, Opioid use disorder, severe, in sustained remission F11.21 [facility] [address] [place] [id number] [place] [address] 23289- 6854 15 Oct, 2016 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 [facility] [address] [place] [id number] [place] [address] 32837- 6986 14 Oct, 2016 Routine gynecological examination Z01.[address] [place] [address]- 7140 07 Oct, 2016 Opioid use disorder, severe, in early remission F11.21 [facility] [address] 76784- 8286 Oct, Opioid use disorder, severe, in early remission F11.21 [facility] [address] [place] [id number] [place] [address] 91023- 2498 Oct, Opioid use disorder, severe, in early remission F11.21 [facility] [address] [place] [address] Oct, Opioid use disorder, severe, in sustained remission F11.21 [place] [address] 74343- 8810 Oct, Opioid use disorder, severe, in early remission F11.21 [place] [address] 96748- 5624 Oct, Opioid use disorder, severe, in early remission F11.21 [facility] [address] [place] [address] Oct, Opioid use disorder, severe, in sustained remission F11.21 [place] [address] 03110- 6942 20 Oct, 2016 Opioid use disorder, severe, in sustained remission F11.21 ; Encounter for therapeutic drug level monitoring Z51.81 and Other detention ( current) drug therapy Z79.899 [place] [address] [place] [id number] [place] [address] 46526- 8652 16 Oct, 2016 [facility] [address] [place] [address] 14 Oct, 2016 Opioid use disorder, severe, in early remission F11.21 [facility] [address] [place] [address] 10 Oct, 2016 Opioid use disorder, severe, in early remission F11.21 [facility] [address] [place] [id number] [place] [address] 96483- 7396 09 Oct, 2016 Opioid use disorder, severe, in early remission F11.21 [facility] [address] [address]- 0363 08 Oct, 2016 [facility] [address] [place] [id number] [place] [address] 28906- 4004 Oct, [facility] [address] [place] [id number] [place] [address] 57054- 2554 Oct, [facility] [address] [place] [address] Oct, Opioid use disorder, severe, in early remission F11.21 [facility] [address] [place] [id number] [place] [address] 52634- 5214 Sep, Opioid use disorder, severe, in early remission F11.21 [facility] [address] [place] [address] Sep, Opioid use disorder, severe, 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 [facility] [address] [place] [id number] [place] [address] 65734- 0271 Sep, Opioid use disorder, severe, 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 ; Other ad terminal makeup operator (current) drug therapy Z79.899 and Encounter for therapeutic drug level monitoring Z51.81 [facility] [address] [place] [id number] [place] [address] 08786- 6413 Sep, [facility] [address] [place] [address] 70639- 7026 Sep, [facility] [address] [place] [id number] [place] [address] 80393- 7238 Sep, Opioid use disorder, severe, 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 ; 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 ; Chronic kidney disease, stage 3 N18.3 ; Essential hypertension I10 and Irritable bowel syndrome with constipation K58.1 [facility] [address] [place] [address] Sep, Opioid use disorder, severe, 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 [facility] [address] [place] [address] Sep, Opioid use disorder, severe, 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 [facility] [address] [place] [id number] [place] [address] 60130- 8713 Sep, Opioid use disorder, moderate, dependence F11.20 [facility] [address] [address] [id number] [place] [address] 43295- 2612 Sep, Opioid use disorder, moderate, dependence F11.20 [facility] [address] [place] [address] Sep, Opioid use disorder, severe, 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 [place] [id number] [place] [address] 63005- 9870 Sep, Opioid use disorder, severe, 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 [facility] [address] [place] [address] Aug, Opioid use disorder, severe, in early remission F11.[address] 53930- 2465 Aug, Opioid use disorder, moderate, dependence F11.20 [facility] [address] [place] [id number] [place] [address] 56311 -2717 Aug, Bug bite without infection, initial encounter W57.XXXA [place] [address] [place] [address] 70597- 0593 Aug, Opioid use disorder, moderate, dependence F11.20 [facility] [address] [place] [address] Aug, [place] [id number] [place] [address] 86317- 0878 Aug, Opioid use disorder, severe, 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 ; Other ad terminal makeup operator (current) drug therapy Z79.899 ; Encounter for therapeutic drug level monitoring Z51.81 and 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 [facility] [address] [place] [address] 15 Aug, 2016 [facility] [address] [place] [address] 23751- 0049 Aug, Opioid use disorder, moderate, dependence F11.20 ; Other ad terminal makeup operator (current) drug therapy Z79.899 and Encounter for therapeutic drug level monitoring Z51.81 [facility] [address] [place] [id number] [place] [address] 050007- 2050 Aug, [facility] [address] [place] [address] [id number] [place] [address] 130767- 3933 Aug, Non-intractable vomiting with nausea, unspecified vomiting type R11.2 [facility] [address] [place] [id number] [place] [address] 323817- 7278 Aug, Opioid use disorder, moderate, dependence F11.20 and Non- intractable vomiting with nausea, unspecified vomiting type R11.2 [facility] [address] [place] [id number] [place] [address] 25734- 6922 Aug, [facility] [address] [place] [id number] [place] [address] 34246- 3040 Aug, Opioid use disorder, moderate, dependence F11.20 [facility] [address] [place] [id number] [place] [address] 66161- 3298 Aug, [facility] [address] [place] [id number] [place] [address] 52082- 4886 Jul, 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 and Opioid use disorder, moderate, dependence F11.20 [facility] [address] [place] [address] Jul, [facility] [address] [place] [address] [id number] [place] [address] 48227- 3449 Jul, [facility] [address] [place] [id number] [place] [address] 49003- 4710 Jul, [facility] [address] [place] [id number] [place] [address] 37997- 1434 Jul, Addiction to drug F19.20 and Chronic kidney disease, stage 3 N18.3 [facility] [address] [place] [address] Jul, Counseling on substance use and abuse Z71.89 [facility] [address] [address] [id number] [place] [address] 82013- 0383 Jul, Chronic kidney disease, stage 3 N18.3 [facility] [address] [place] [id number] [place] [address] 10686- 8077 Jul, 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 ; Diarrhea, unspecified type R19.7 and Essential hypertension I10 [facility] [address] [place] [address] [id number] [place] [address] 17268- 9730 Jul, [facility] [address] 12673- 2000 Jun, [facility] [address] [place] [address] [id number] [place] [address] 98354- 8866 Jun, [facility] [address] 87940- 6723 Apr, 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 [facility] [address] [id number] [place] [address] 32417- 2112 Apr, Sore throat and laryngitis J06.0 and Non-intractable vomiting with nausea, unspecified vomiting type R11.2 [facility] [address] [id number] [place] [address] 58996- 7284 Apr, [facility] [address] [place] [address] [id number] [place] [address] 55972- 6748 Mar, [facility] [address] [address] [id number] [place] [address] 38173- 0718 Jan, [facility] [address] [id number] [place] [address] 63212- 1118 Jan, [facility] [address] [place] [id number] [place] [address] 80525- 7720 Jan, [facility] [address] 85351- 1052 December, 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 ; Gastroparesis K31.84 ; Mixed hyperlipidemia E78.2 ; Chronic kidney disease, stage 3 N18.3 ; Dysthymia F34.1 and Acute bilateral low back pain without sciatica M54.5 [place] [address] 10700- 3212 December, [place] [address] 96136- 6665 December, [place] [address] 48557- 0031 Aug, Depression F32.9 and Gastroparesis K31.84 [place] [address] 37589- 8718 Aug, Gastroparesis K31.84 [place] [address] 78975- 9669 Jul, Recurrent UTI N39.0 ; Chronic kidney disease, stage 3 N18.3 and 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 [place] [address] 20887- 4491 Jul, [facility] [address] [id number] Jul, Dental examination Z01.20 and Dental caries K02.9 [place] [address] 16713- 5471 Jul, [facility] [address] 73085 -7847 Jul, Dysuria R30.0 ; Urinary tract infection N39.0 and Nausea R11.0 [place] [address] 96174- 9331 Jun, Dysuria R30.0 [place] [address] 32257- 0833 Jun, Dysuria R30.0 [place] [address] [place] [address] 49858- 7376 Jun, Dysuria R30.0 [place] [address] [place] [id number] [place] [address] 13860- 6056 Jun, [place] [address] [place] [id number] [place] [address] 73563- 0487 Jun, Acute cystitis with hematuria N30.01 [place] [address] [place] [id number] [place] [address] [phone]- [phone] May, [place] [address] [place] [id number] [place] [address] [phone] Apr, Diabetes mellitus without mention of complication, type I [ juvenile type], not stated as uncontrolled 250.01 ; Gastroparesis due to DM 250.60 ; Contraception management V25.9 and Renal insufficiency 593.9 [place] [address] [place] [id number] [place] [address] [phone] Apr, [place] [address] [place] [id number] [place] [address] [phone] Apr, [place] [address] [place] [id number] [place] [address] [phone] Mar, [place] [address] [place] [id number] [place] [address] [phone] Mar, Hyperlipidemia 272.4 and Hypertensive heart and chronic kidney disease, benign, without heart failure and with chronic kidney disease stage I through stage IV, or unspecified 404.10 [place] [id number] [place] [address] Mar, Hyperlipidemia 272.4 ; Hyponatremia 276.1 ; 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 ; Hypertensive heart and chronic kidney disease, benign, without heart failure and with chronic kidney disease stage I through stage IV, or unspecified 404.10 ; Proteinuria 791.0 and Chronic kidney disease (CKD), stage III (moderate) 585.3 [place] [id number] [address] Mar, [facility] [address] [address] Mar, Elevated blood sugar level 790.29 [place] [address], [place] [address] Mar, Low grade squamous intraepithelial lesion (LGSIL) on cervical Pap smear 795.03 [place] [address], [place] [address] Mar, Amenorrhea 626.0 [place] [id number] [place] [address] Jan, Amenorrhea 626.0 ; Routine gynecological examination V72.31 and Screen for STD (sexually transmitted disease) V74.5 [place] [id number], [place] [address] Jan, Amenorrhea 626.0 [place] [address], [place] [address] 08 Jan, 2015 Routine gynecological examination V72.31 ; Screen for STD ( sexually transmitted disease) V74.5 ; Pap test, as part of routine gynecological examination V76.2 ; Breast cancer screening V76.10 and Amenorrhea 626.0 [place] [address], [place] [address] December, [place] [id number], [place] [address] Dec, [place] [address], [place] [address] Dec, [facility] [address] [address] 30 Oct, 2014 [place] [address] [id number] [address] Oct, [facility] [place] [facility] [address] [id number] [place] [address]70 Oct, [facility] [place] [facility] [address] [id number] [place] [address]- 4885 Oct, [facility] [place] [facility] [address] [id number] [place] [address]- 6565 Oct, [facility] [place] [facility] [address] [id number] [place] [address]- 1513 Oct, [facility] [place] [facility] [address] [id number] [place] [address]- 0363 Oct, [facility] [place] [facility] [address] [id number] [place] [address]- 3328 Oct, [facility] [place] [facility] [address] [id number] [place] [address]- 1944 Oct, [facility] [place] [facility] [address] [id number] [place] [address]- 3065 Oct, [facility] [place] [facility] [address] [id number] [place] [address]- 7434 Oct, [facility] [place] [facility] [address] [id number] [place] [address]- 9075 Sep, [facility] [place] [facility] [address] [id number] [place] [address]- 5099 Sep, [facility] [place] [facility] [address] [id number] [place] [address]- 0658 Sep, [facility] [place] [facility] [address] [id number] [place] [address]- 7627 Sep, [facility] [place] [facility] [address] [id number] [place] [address]- 1460 Sep, [facility] [place] [facility] [address] [id number] [place] [address]- 9413 Sep, [facility] [place] [facility] [address] [id number] [place] [address]- 4062 15 Sep, 2014 [facility] [address] [id number] [place] [address]- 7283 15 Sep, 2014 [facility] [place] [facility] [address] [id number] [place] [address]- 8281 Sep, [facility] [place] [facility] [address] [id number] [place] [address]- 5017 Sep, [facility] [place] [facility] [address] [id number] [place] [address]- 5250 Sep, [facility] [place] [facility] [address] [id number] [place] [address]- 7679 Sep, [facility] [place] [facility] [address] [id number] [place] [address]- 1920 Sep, [facility] [place] [facility] [address] [id number] [place] [address]- 1798 Sep, [facility] [place] [facility] [address] [id number] [place] [address]- 0096 Sep, [facility] [place] [facility] [address] [id number] [place] [address]- 5014 Sep, [facility] [place] [facility] [address] [id number] [place] [address]- 2776 Sep, [facility] [place] [facility] [address] [id number] [place] [address]- 4399 Sep, [facility] [place] [facility] [address] [id number], [place] [address]- [address]79 Sep, [facility] [place] [facility] [address] [id number], [place] [address]- 6949 Sep, [facility] [place] [facility] [address] [id number] [place] [address]- 9670 Aug, [facility] [place] [facility] [address] [id number] [place] [address]- 5651 Aug, [facility] [place] [facility] [address] [id number] [place] [address]- 9969 09 Aug, 2014 [facility] [place] [facility] [address] [id number] [place] [address] Aug, [facility] [place] [facility] [address] [id number] [place] [address]- 3372 08 Aug, 2014 [facility] [place] [facility] [address] [id number] [place] [address]- 3611 Aug, [facility] [place] [facility] [address] [id number] [place] [address] Aug, [facility] [place] [facility] [address] [id number] [place] [address]- 0498 Aug, [facility] [place] [facility] [address] [id number] [place] [address]- 0613 Aug, [facility] [place] [facility] [address] [id number] [place] [address]- 4983 Aug, [facility] [place] [facility] [address] [id number] [place] [address]- 1566 Aug, [facility] [place] [facility] [address] [id number] [place] [address]- 7967 Aug, [facility] [place] [facility] [address] [id number] [place] [address]- 1182 Jul, [facility] [place] [facility] [address] [id number] [place] [address]- 4312 Jul, [facility] [place] [facility] [address] [id number] [place] [address]- 0859 Jul, [facility] [place] [facility] [address] [id number] [place] [address] Jul, [facility] [place] [facility] [address] [id number] [place] [address]- 3964 17 Jul, 2014 [facility] [place] [facility] [address] [id number] [place] [address]- 3271 Jul, [facility] [place] [facility] [address] [id number] [place] [address]- 7731 Jul, [facility] [place] [facility] [address] [id number] [place] [address]- 6626 Jul, [facility] [place] [facility] [address] [id number] [place] [address]- 8414 Jul, [facility] [place] [facility] [address] [id number] [place] [address]- 3553 Jul, [facility] [place] [facility] [address] [id number] [place] [address] Jun, [facility] [place] [facility] [address] [id number] [place] [address] Jun, [facility] [place] [facility] [address] [id number] [place] [address]- 6201 30 Jun, 2014 [facility] [place] [facility] [address] [id number], [place] [address]- 6585 30 Jun, 2014 [facility] [place] [facility] [address] [id number] [place] [address]- 2480 30 Jun, 2014 [facility] [place] [facility] [address] [id number] [place] [address]- 4524 30 Jun, 2014 [facility] [place] [facility] [address] [id number], [place] [address]- 0178 15 Jun, 2014 [facility] [place] [facility] [address] [id number], [place] [address]- 6158 15 Jun, 2014 [facility] [place] [facility] [address] [id number] [place] [address]- 0056 22 May, 2014 [facility] [place] [facility] [address] [id number] [address] 22 May, 2014 [facility] [place] [facility] [address] [id number] [place] [address]41 18 May, 2014 [facility] [place] [facility] [address] [id number] [place] [address]- 5083 May, [facility] [place] [facility] [address] [id number] [place] [address]- 5232 May, [facility] [place] [facility] [address] [id number] [place] [address]- 4159 May, [facility] [place] [facility] [address] [id number] [place] [address]- 6086 May, [facility] [place] [facility] [address] [id number] [place] [address]- 7973 May, [facility] [place] [facility] [address] [id number] [place] [address]- 6420 Apr, [facility] [place] [facility] [address] [id number] [place] [address]- 5579 Apr, [facility] [place] [facility] [address] [id number] [place] [address]- 6234 Apr, [facility] [place] [facility] [address] [id number] [place] [address]- 4829 Apr, [facility] [place] [facility] [address] [id number] [place] [address]- 5619 Mar, [facility] [place] [facility] [address] [id number] [place] [address]- 6511 Mar, [facility] [place] [facility] [address] [id number] [place] [address]- 6664 Mar, [facility] [place] [facility] [address] [id number] [place] [address]- 0879 Mar, [facility] [place] [facility] [address] [id number] [place] [address]- 6751 Mar, [facility] [place] [facility] [address] [id number] [place] [address]- 7789 Mar, [facility] [place] [facility] [address] [id number] [place] [address]- 4988 Jan, [facility] [place] [facility] [address] [id number] [place] [address]- 0154 Jan, [facility] [place] [facility] [address] [id number] [place] [address]- 9397 Jan, [facility] [place] [facility] [address] [id number] [place] [address]- 5556 Jan, [facility] [place] [facility] [address] [id number] [place] [address]- 5119 Jan, [facility] [place] [facility] [address] [id number] [place] [address]- 6303 Jan, [facility] [place] [facility] [address] [id number] [place] [address]- 0634 Jan, [facility] [place] [facility] [address] [id number] [place] [address]- 4589 Jan, [facility] [place] [facility] [address] [id number] [place] [address]- 0672 Jan, [facility] [place] [facility] [address] [id number] [place] [address]- 2060 Jan, [facility] [place] [facility] [address] [id number] [place] [address]- 2899 Jan, [facility] [place] [facility] [address] [id number] [place] [address]- 5292 Jan, [facility] [place] [facility] [address] [id number] [place] [address]- 5621 December, [facility] [place] [facility] [address] [id number] [place] [address]- 0319 December, [facility] [place] [facility] [address] [id number] [place] [address]- 6084 December, [facility] [place] [facility] [address] [id number] [place] [address]- 7019 December, [facility] [place] [facility] [address] [id number] [place] [address]- 7502 Dec, [facility] [place] [facility] [address] [id number] [place] [address]- 7369 Dec, [facility] [place] [facility] [address] [id number] [place] [address]- 0294 Dec, [facility] [place] [facility] [address] [id number] [place] [address]- 3184 Dec, [facility] [place] [facility] [address] [id number] [place] [address]- 3523 Dec, [facility] [place] [facility] [address] [id number] [place] [address]- 7538 Dec, [facility] [place] [facility] [address] [id number] [place] [address]- 6345 Dec, [facility] [place] [facility] [address] [id number] [place] [address]- 2802 Dec, [facility] [place] [facility] [address] [id number] [place] [address]- 7913 Dec, [facility] [place] [facility] [address] [id number] [place] [address]- 8653 Dec, [facility] [place] [facility] [address] [id number] [place] [address]- 1731 Dec, [facility] [place] [facility] [address] [id number] [place] [address]- 7967 Dec, [facility] [place] [facility] [address] [id number] [place] [address]- 0864 Dec, [facility] [place] [facility] [address] [id number] [place] [address]- 5842 Dec, [facility] [place] [facility] [address] [id number] [place] [address]29 Oct, [facility] [place] [facility] [address] [id number] [place] [address]- 9784 Oct, [facility] [place] [facility] [address] [id number] [place] [address]- 5426 29 Oct, 2013 [facility] [address] [id number] [place] [address]- 2010 29 Oct, 2013 [facility] [address] [id number] [place] [address]- 8205 28 Oct, 2013 [facility] [address] [id number] [place] [address]- 3459 28 Oct, 2013 [facility] [address] [id number] [place] [address] Oct, [facility] [address] [id number] [place] [address]- 2408 Oct, [facility] [address] [id number] [place] [address]- 3027 Oct, [facility] [address] [id number] [place] [address]- 7627 Oct, [facility] [address] [id number] [place] [address]- 8546 Sep, [facility] [address] [id number] [place] [address]- 7370 Sep, [facility] [address] [id number] [place] [address]- 5709 Sep, [facility] [address] [id number] [place] [address]- 8595 Sep, [facility] [address] [id number] [place] [address]- 1730 Sep, [facility] [address] [id number] [place] [address]- 9128 Sep, [facility] [address] [id number] [place] [address]- 5936 Aug, [facility] [address] [id number] [place] [address]- 2479 Aug, [facility] [address] [facility] [id number], [place] [address]- 1992 Jul, [facility] [id number], [place] [address]- 8848 Jul, [facility] [id number], [place] [address]- 3931 Jul, [facility] [id number], [place] [address]- 8461 Jul, [facility] [address] [facility] [id number], [place] [address]- 8544 Jul, IMMUNIZATIONS No Known Immunizations SOCIAL HISTORY Never Assessed REASON FOR VISIT TX Plan Update PLAN OF CARE Activity Details Follow Up 1 Week Reason: VITAL SIGNS MEDICATIONS Unknown Medications RESULTS No Results PROCEDURES Procedure Date Ordered Result Body Site Psychotherapy, patient &/family, 30 minutes, established patient May 07, 2017 INSTRUCTIONS MEDICATIONS ADMINISTERED No Known Medications [...]
--- OUTSIDE RECORDS SUMMARY | 2018-08-30 21:18 | XMS REPORT ---
Author Author CARLOTTA MIR [facility] Address [address] [place] [address] Care Team Providers Care Directional Driller Name Role Phone AALIYAHGUZMANCARLOTTA Unavailable PROBLEMS Type Condition ICD9-CM Code [id number] Code Onset Dates Condition Status SNOMED Code Problem Essential hypertension I10 Active 04512537 Problem Addiction to drug F19.20 Active 022010920 Problem Diarrhea, unspecified type R19.7 Active 91455782 Problem CHI I (cervical intraepithelial neoplasia I) N87.0 Active 296488299 Problem Right acute serous otitis media, recurrence not specified H65.01 Active 280496652 Problem Irritable bowel syndrome with constipation K58.1 Active 527905452 Problem Encounter for therapeutic drug level monitoring Z51.81 Active 468228769 Problem Mild episode of recurrent major depressive disorder F33.0 Active 507749059 Problem Opioid use disorder, severe, in sustained remission F11.21 Active 01708633 Problem Long-term use of high-risk medication Z79.899 Active 700305516 Problem Recurrent UTI N39.0 Active 513587228 Problem Gastroparesis K31.84 Active 934311571 Problem Acute bilateral low back pain without sciatica M54.5 Active 928030217 Problem 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 Active 64082313 Problem Mixed hyperlipidemia E78.2 Active 008144193 Problem Chronic kidney disease, stage 3 N18.3 Active 395822185 Problem Dysthymia F34.1 Active 50966820 ALLERGIES No Information SOCIAL HISTORY Never Assessed PLAN OF CARE Activity Details Follow Up 1 Week Reason: VITAL SIGNS MEDICATIONS Unknown Medications RESULTS No Results PROCEDURES Procedure Date Ordered Result Body Site Psychotherapy, patient &/family, 30 minutes, established patient January 22, 2017 IMMUNIZATIONS No Known Immunizations MEDICAL (GENERAL) HISTORY Type Description Date Medical History Type 1 Diabetes mellitus Medical History hx of hypertension Medical History gastroparesis Medical History hx of renal insufficiency 09/2014 Medical History Unspecified renal failure Medical History Gastroparesis due to DM Surgical History oral surgery at age 16 Hospitalization History Gastroperisis 2012
--- OUTSIDE RECORDS SUMMARY | 2018-08-30 21:19 | XMS REPORT ---
Author Author CARLOTTA MIR Organization [facility] Address [address] [place] [address] Care Team Providers Care Tank Maker Wood Name Role Phone NAMSHAMARCARLOTTA Unavailable PROBLEMS Type Condition ICD9-CM Code [id number] Code Onset Dates Condition Status SNOMED Code Problem Essential hypertension I10 Active 69721432 Problem Addiction to drug F19.20 Active 976511138 Problem Diarrhea, unspecified type R19.7 Active 94389984 Problem Right acute serous otitis media, recurrence not specified H65.01 Active 387665755 Problem Mild episode of recurrent major depressive disorder F33.0 Active 020291884 Problem Encounter for therapeutic drug level monitoring Z51.81 Active 736969890 Problem Other intermediate project manager (current) drug therapy Z79.899 Active 668111950 Problem Opioid use disorder, severe, in sustained remission F11.21 Active 06969565 Problem Irritable bowel syndrome with constipation K58.1 Active 289066005 Problem Recurrent UTI N39.0 Active 800003727 Problem Gastroparesis K31.84 Active 158138281 Problem Acute bilateral low back pain without sciatica M54.5 Active 596591833 Problem Chronic kidney disease, stage 3 N18.3 Active 231430554 Problem Dysthymia F34.1 Active 13039001 Problem 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
--- OUTSIDE RECORDS SUMMARY | 2018-08-30 21:19 | XMS REPORT ---
Author Author CARLOTTA MIR Organization [facility] Address [address] [place] [address] Care Team Providers Care Director Of Labor Relations Name Role Phone NAMSHAMARCARLOTTA Unavailable PROBLEMS Type Condition ICD9-CM Code [id number] Code Onset Dates Condition Status SNOMED Code Problem Essential hypertension I10 Active 47539011 Problem Addiction to drug F19.20 Active 001820116 Problem Diarrhea, unspecified type R19.7 Active 02498946 Problem Mild episode of recurrent major depressive disorder F33.0 Active 686854900 Problem Right acute serous otitis media, recurrence not specified H65.01 Active 492688047 Problem Other skilled nursing (current) drug therapy Z79.899 Active 220837827 Problem Encounter for therapeutic drug level monitoring Z51.81 Active 543491953 Problem Opioid use disorder, severe, in sustained remission F11.21 Active 29617216 Problem Irritable bowel syndrome with constipation K58.1 Active 742131116 Problem 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 Active 01251020 Problem Gastroparesis K31.84 Active 949961741 Problem Acute bilateral low back pain without sciatica M54.5 Active 562465729 Problem Chronic kidney disease, stage 3 N18.3 Active 457050198 Problem Dysthymia F34.1 Active 75647400 Problem Recurrent UTI N39.0 Active 142865490 Problem Mixed hyperlipidemia E78.2 Active 419884947 ALLERGIES Unknown Allergies SOCIAL HISTORY No smoking Hx information available PLAN OF CARE VITAL SIGNS MEDICATIONS Unknown Medications RESULTS No Results PROCEDURES Procedure Date Ordered Related Diagnosis Body Site Alcohol and/or drug services Aug 16, 2016 IMMUNIZATIONS No Known Immunizations
--- OUTSIDE RECORDS SUMMARY | 2018-08-30 21:19 | XMS REPORT ---
Author Author CARLOTTA MIR Organization [facility] Address [address] [place] [address] Care Team Providers Care Turn Operator Name Role Phone NAMSHAMARCARLOTTA Unavailable PROBLEMS Type Condition ICD9-CM Code [id number] Code Onset Dates Condition Status SNOMED Code Problem Essential hypertension I10 Active 28068876 Problem Addiction to drug F19.20 Active 131430879 Problem Diarrhea, unspecified type R19.7 Active 78387753 Problem Mild episode of recurrent major depressive disorder F33.0 Active 437393306 Problem Right acute serous otitis media, recurrence not specified H65.01 Active 762522311 Problem Other [facility] drug therapy Z79.899 Active 027255455 Problem Encounter for therapeutic drug level monitoring Z51.81 Active 751834392 Problem Opioid use disorder, severe, in sustained remission F11.21 Active 72361712 Problem Irritable bowel syndrome with constipation K58.1 Active 125689324 Problem 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 Active 98189607 Problem Gastroparesis K31.84 Active 403126723 Problem Acute bilateral low back pain without sciatica M54.5 Active 469776336 Problem Chronic kidney disease, stage 3 N18.3 Active 425808639 Problem Dysthymia F34.1 Active 14788123 Problem Recurrent UTI N39.0 Active 559153394 Problem Mixed hyperlipidemia E78.2 Active 459745595 ALLERGIES Unknown Allergies SOCIAL HISTORY No smoking Hx information available PLAN OF CARE VITAL SIGNS MEDICATIONS Unknown Medications RESULTS No Results PROCEDURES Procedure Date Ordered Related Diagnosis Body Site Alcohol and/or drug services Aug 21, 2016 IMMUNIZATIONS No Known Immunizations
--- OUTSIDE RECORDS SUMMARY | 2018-08-30 21:19 | XMS REPORT ---
Author Author NHAN TAYLOR [facility] Address [address] [place] [address] Care Team Providers Care Beater Room Supervisor Name Role Phone NHAN TAYLOR Unavailable PROBLEMS Type Condition ICD9-CM Code FBE16-QH Code Onset Dates Condition Status SNOMED Code Problem Diarrhea, unspecified type R19.7 Active 79826151 Problem Other half-way (current) drug therapy Z79.899 Active 661285288 Problem Addiction to drug F19.20 Active 971181050 Problem CHI I (cervical intraepithelial neoplasia I) N87.0 Active 510508022 Problem Right acute serous otitis media, recurrence not specified H65.01 Active 146620635 Problem Irritable bowel syndrome with constipation K58.1 Active 228505808 Problem Encounter for therapeutic drug level monitoring Z51.81 Active 388951134 Problem Mild episode of recurrent major depressive disorder F33.0 Active 357359569 Problem Opioid use disorder, severe, in sustained remission F11.21 Active 41482087 Problem Recurrent UTI N39.0 Active 016075545 Problem Chronic kidney disease, stage 3 N18.3 Active 085880133 Problem Acute bilateral low back pain without sciatica M54.5 Active 832956406 Problem Dysthymia F34.1 Active 63561414 Problem 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 Active 63985631 Problem Mixed hyperlipidemia E78.2 Active 110650165 Problem Gastroparesis K31.84 Active 205359568 Problem Essential hypertension I10 Active 48654000 ALLERGIES Substance Reaction Event Type Date Status Penicillin V Potassium rash Drug Allergy Oct, Active Cipro nausea and vomiting Drug Allergy Oct, Active Bactrim DS rash Drug Allergy Oct, Active SOCIAL HISTORY Never Assessed PLAN OF CARE Activity Details Follow Up 1 year, sooner prn Reason: VITAL SIGNS Height 66 in 2016-11-13 Weight 175.0 lbs 2016-11-13 Temperature 97.0 degrees Fahrenheit 2016-11-13 Heart Rate 78 bpm 2016-11-13 Respiratory Rate 20 2016-11-13 BMI 28.24 kg/m2 2016-11-13 Blood pressure systolic 120 mmHg 2016-11-13 Blood pressure diastolic 70 mmHg 2016-11-13 MEDICATIONS Medication Instructions Dosage Frequency Start Date End Date Duration Status Tylenol 8 Hour Active Humalog 100 UNIT/ML Subcutaneous pump as per pump inject Units by Subcutaneous route every hour per insulin pump Active Vitamin B12 Active Dicyclomine HCl 10 mg Orally 2 times a day prn 1 tablet Sep, Oct, 30 days Active Fish Oil 1000 MG Orally Once a day 2 capsule 24h Active Vitamin D (Ergocalciferol) 08089 UNIT Orally TWICE WEEKLY X8 WKS-AFTER 8 WEEKS TAKEN OTC VITAMIN D 2000 IU 1 capsule Mar, Active Zofran ODT 4 MG Orally 3 times a day, prn take 1 tablets by Oral route every 8 hours PRN Nausea or Vomiting Sep, Active Enalapril Maleate 10 mg Orally twice a day 1 tablet 12h Active Lovastatin 20 mg Orally Once a day 1 tablet with a meal 24h Mar, 30 day(s) Active Glucagon Emergency 1 MG as directed Apr, Active Suboxone 8-2 MG Sublingual Once a day (11/08-11/23 dosing) 2 film under the tongue and allow to dissolve Aug, 16 days Active RESULTS Name Result Date Reference Range CULTURE, GENITAL 2016-11-13 Genital Culture, Routine Final report Result 1 TRICHOMONAS (IN HOUSE) 2016-11-13 TRICHOMONAS negative Control + Lot # [id number] Exp date 10/2017 PDF Report 2016-11-13 PDF Report1 LCLS BACTERIAL VAGINOSIS (IN HOUSE) 2016-11-13 RESULTS negative Control + Lot # [id number] Exp date 05/2017 PAP TEST W/ HPV REGARDLESS 2016-11-13 DIAGNOSIS: Specimen adequacy: Clinician provided ICD10: Performed by: Electronically signed by: . . Pathologist provided ICD10: Note: HPV, high-risk Positive Negative GC/CHLAM PROBE (STATE) 2016-11-13 CHLAMYDIA GC PROCEDURES Procedure Date Ordered Result Body Site SPECIMEN HANDLING November 13, 2016 No Charge November 13, 2016 CULTURE, BACTERIA, OTHER November 13, 2016 ALLEN VAG, DNA, DIR PROBE November 13, 2016 TRICHOMONAS ASSAY W/OPTIC November 13, 2016 IMMUNIZATIONS No Known Immunizations MEDICAL (GENERAL) HISTORY Type Description Date Medical History Type 1 Diabetes mellitus Medical History hx of hypertension Medical History gastroparesis Medical History hx of renal insufficiency 09/2014 Medical History Unspecified renal failure Medical History Gastroparesis due to DM Surgical History oral surgery at age 16 Hospitalization History Gastroperisis 2012
--- OUTSIDE RECORDS SUMMARY | 2018-08-30 21:19 | XMS REPORT ---
Author Author YANNICK JOSUE Organization [employer] Address Unknown Phone Unavailable Care Team Providers Care Chore Tender Name Role Phone YANNICK JOSUE CP Unavailable Allergies No Known Allergies Problems Problem Type Condition Code Onset Dates Condition Status Problem Health examination of defined subpopulation V70.5 Active Problem Abdominal pain, generalized 789.07 Active Problem Unspecified constipation 564.00 Active Problem Elevated blood pressure reading without [...] Instructions Start Date End Date Status Dosage Levaquin [facility] [address]-34 500 MG Orally Once a day Jun 21, 2015 Jun 26, 2015 1 tablet Results No Known Results Summary Purpose [employer] Submission
--- OUTSIDE RECORDS SUMMARY | 2018-08-30 21:20 | XMS REPORT ---
Author Author CARLOTTA MIR [facility] Address [address] [place] [address] Care Team Providers Care Fur Blender Name Role Phone CARLOTTA MIR Unavailable PROBLEMS Type Condition ICD9-CM Code [id number] Code Onset Dates Condition Status SNOMED Code Problem Essential hypertension I10 Active 69214468 Problem Addiction to drug F19.20 Active 864226104 Problem Diarrhea, unspecified type R19.7 Active 45508014 Problem CHI I (cervical intraepithelial neoplasia I) N87.0 Active 518648879 Problem Right acute serous otitis media, recurrence not specified H65.01 Active 293260213 Problem Irritable bowel syndrome with constipation K58.1 Active 229763486 Problem Encounter for therapeutic drug level monitoring Z51.81 Active 237370685 Problem Mild episode of recurrent major depressive disorder F33.0 Active 143149176 Problem Opioid use disorder, severe, in sustained remission F11.21 Active 84997301 Problem Long-term use of high-risk medication Z79.899 Active 156017743 Problem Recurrent UTI N39.0 Active 275389363 Problem Gastroparesis K31.84 Active 675758608 Problem Acute bilateral low back pain without sciatica M54.5 Active 164908080 Problem 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 Active 76501453 Problem Mixed hyperlipidemia E78.2 Active 209419011 Problem Chronic kidney disease, stage 3 N18.3 Active 968176985 Problem Dysthymia F34.1 Active 65251969 ALLERGIES No Information ENCOUNTERS Encounter Location Date Diagnosis [facility] [address] [place] [address] Dec, [facility] [id number] [address] Dec, [facility] [address] [facility] [id number] [address] Dec, Opioid use disorder, severe, in early remission F11.21 [facility] [address] [place] [address] 22232- 6227 Oct, [facility] [id number] [place] [address] 758784- 7536 Oct, Opioid use disorder, severe, in early remission F11.21 [facility] [id number] [place] [address] 38246- 2756 Oct, [facility] [id number] [place] [address] 954063- 5286 Oct, Opioid use disorder, severe, in early remission F11.21 [facility] [id number] [place] [address] 133872- 9886 Oct, [facility] [id number] [place] [address] 61399- 0926 Oct, [facility] [address] [place] [address] Oct, Opioid use disorder, severe, in sustained remission F11.21 [facility] [id number] [place] [address] 12536- 4493 Sep, [facility] [id number] [place] [address] 16648- 5254 Sep, [facility] [id number] [place] [address] 36056- 5863 Sep, Opioid use disorder, severe, in early remission F11.21 [facility] [address] [place] [address] 76793- 1591 Aug, Opioid use disorder, severe, in early remission F11.21 [facility] [id number] [place] [address] 083670- 5886 Jul, [facility] [id number] [place] [address] 92433- 7959 Jul, Chronic kidney disease, stage 3 N18.3 ; Dysthymia F34.1 and Opioid use disorder, severe, in sustained remission F11.21 [facility] [address] [place] [address] Jul, Opioid use disorder, severe, in sustained remission F11.21 [facility] [id number] [place] [address] 55683- 6265 Jul, Long-term use of high-risk medication Z79.899 and Chronic kidney disease, stage 3 N18.3 [place] [id number] [place] [address] 39460- 4083 Jul, Opioid use disorder, severe, 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 [place] [address] 56561- 0714 Jul, [place] [id number] [place] [address] 69843- 6058 Jun, [place] [address] 42960- 8971 Jun, [place] [id number] [place] [address] 15374- 9711 Jun, Opioid use disorder, moderate, dependence F11.20 and Opioid use disorder, severe, in 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 [place] [id number] [place] [address] 45794- 7116 Jun, [place] [id number] [place] [address] 73322- 9599 Jun, Long-term use of high-risk medication Z79.899 [place] [id number] [place] [address] 79949- 6241 Jun, CHI I (cervical intraepithelial neoplasia I) N87.0 [place] [id number] [place] [address] 72524- 4953 May, Opioid use disorder, severe, in early remission F11.21 [place] [id number] [place] [address] 90996- 2010 18 May, 2017 Chronic kidney disease, stage 3 N18.3 [facility] [id number] [place] [address] 95188- 1477 14 May, 2017 Chronic kidney disease, stage 3 N18.3 [facility] [address] [place] [address] 05 May, 2017 Opioid use disorder, severe, in sustained remission F11.21 [facility] [id number] [place] [address] 06462- 0625 Apr, LGSIL on Pap smear of cervix R87.612 [facility] [address] [place] [address] Apr, [facility] [id number] [place] [address] 76389- 3194 Apr, Opioid use disorder, severe, in early remission F11.21 [facility] [id number] [place] [address] 19584- 2512 Apr, Opioid use disorder, severe, in early remission F11.21 [facility] [id number] [place] [address] 20440- 0583 Apr, Opioid use disorder, severe, in early remission F11.21 [facility] [id number] [place] [address] 49904- 6861 Apr, Opioid use disorder, severe, 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 [facility] [id number] [place] [address] 57853- 0088 14 Apr, 2017 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 [facility] [id number] [place] [address] 06684- 8597 Apr, Opioid use disorder, severe, in early remission F11.21 [facility] [address] [place] [address] Apr, Opioid use disorder, severe, in sustained remission F11.21 [facility] [id number] [place] [address] 23559- 9204 09 Apr, 2017 Opioid use disorder, severe, 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 [facility] [address] [address] 8119 Apr, Mild episode of recurrent major depressive disorder F33.0 and Right acute serous otitis media, recurrence not specified H65.01 [facility] [address] [address] 4317 Mar, [facility] [id number] [place] [address] 35060- 5251 Mar, Opioid use disorder, severe, in early remission F11.21 [facility] [id number] [place] [address] 82968- 0158 Mar, [facility] [address] [place] [address] Mar, Opioid use disorder, severe, in sustained remission F11.21 [facility] [address] [place] [address] Mar, Opioid use disorder, severe, in sustained remission F11.21 [facility] [id number] [place] [address] 65023- 6466 Mar, Opioid use disorder, severe, in early remission F11.21 [facility] [address] [place] [address] 14864- 5910 Jan, Opioid use disorder, severe, in early remission F11.21 [facility] [address] [place] [address] Jan, Opioid use disorder, severe, in sustained remission F11.21 [facility] [address] [place] [address] Jan, Opioid use disorder, severe, in sustained remission F11.21 [facility] [id number] [place] [address] 24292- 5106 Jan, Opioid use disorder, severe, in early remission F11.21 [facility] [address] [place] [address] Jan, Opioid use disorder, severe, in sustained remission F11.21 [facility] [id number] [address] 0694 December, Opioid use disorder, severe, in early remission F11.21 [facility] [address] [place] [address] December, Opioid use disorder, severe, in sustained remission F11.21 [address] [id number] [place] [address] 72320- 6613 December, Routine gynecological examination Z01.419 and Chronic kidney disease, stage 3 N18.3 [id number] [place] [address] 62914- 2614 December, Chronic kidney disease, stage 3 N18.3 ; 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 ; Gastroparesis K31.84 ; Essential hypertension I10 and Irritable bowel syndrome with constipation K58.[address] [address] December, Opioid use disorder, severe, in sustained remission F11.21 [address] [id number] [place] [address] 97958- 1806 December, Opioid use disorder, severe, in early remission F11.21 [facility] [address] [place] [address] December, Opioid use disorder, severe, in sustained remission F11.21 [address] [id number] [place] [address] 73844- 8833 December, Encounter for therapeutic drug level monitoring Z51.81 [facility] [address] [place] [address] December, Opioid use disorder, severe, in sustained remission F11.21 [facility] [address] [place] [address] Dec, Opioid use disorder, severe, in sustained remission F11.21 [address] [place] [id number] [place] [address] 83946- 6301 Dec, Opioid use disorder, severe, 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 [address] [place] [id number] [place] [address] 92660- 3438 Dec, [facility] [address] [place] [address] Dec, Opioid use disorder, severe, in sustained remission F11.21 [facility] [id number] [place] [address] 35347- 5998 Dec, Opioid use disorder, severe, in early remission F11.21 [facility] [address] [place] [address] 06 Dec, 2016 Opioid use disorder, severe, in sustained remission F11.21 [facility] [id number] [place] [address] 96977- 3271 Dec, 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 [place] [id number] [place] [address] 77955- 1248 Dec, Opioid use disorder, severe, in sustained remission F11.21 ; Encounter for therapeutic drug level monitoring Z51.81 and Other half-way ( current) drug therapy Z79.899 [facility] [address] [place] [address] 31 Oct, 2016 Opioid use disorder, severe, in sustained remission F11.21 [place] [id number] [place] [address] 41870- 5543 23 Oct, 2016 Opioid use disorder, severe, in early remission F11.21 [facility] [id number] [place] [address] 70957- 5039 15 Oct, 2016 [facility] [address] [place] [address] 15 Oct, 2016 Opioid use disorder, severe, in sustained remission F11.21 [place] [id number] [place] [address] 97980- 8401 15 Oct, 2016 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 [facility] [id number] [place] [address] 28663- 3879 14 Oct, 2016 Routine gynecological examination Z01.[address] 03111- 2930 Oct, Opioid use disorder, severe, in early remission F11.21 [facility] [id number] [place] [address] 38743- 7612 Oct, Opioid use disorder, severe, in early remission F11.21 [facility] [id number] [place] [address] 82887- 0507 Oct, Opioid use disorder, severe, in early remission F11.21 [facility] [address] [place] [address] Oct, Opioid use disorder, severe, in sustained remission F11.21 [facility] [id number] [place] [address] 43086- 1460 Oct, Opioid use disorder, severe, in early remission F11.21 [facility] [id number] [place] [address] 60864- 0871 Oct, Opioid use disorder, severe, in early remission F11.21 [facility] [address] [place] [address] Oct, Opioid use disorder, severe, in sustained remission F11.21 [facility] [id number] [place] [address] 62693- 0143 Oct, Opioid use disorder, severe, in sustained remission F11.21 ; Encounter for therapeutic drug level monitoring Z51.81 and Other half-way ( current) drug therapy Z79.899 [place] [id number] [place] [address] 11222- 9944 16 Oct, 2016 [facility] [address] [place] [address] 14 Oct, 2016 Opioid use disorder, severe, in early remission F11.21 [facility] [address] [place] [address] 10 Oct, 2016 Opioid use disorder, severe, in early remission F11.21 [facility] [id number] [place] [address] 62353- 7639 09 Oct, 2016 Opioid use disorder, severe, in early remission F11.21 [facility] [address] [address]- 5122 08 Oct, 2016 [facility] [id number] [place] [address] 99526- 8296 Oct, [facility] [id number] [place] [address] 43393- 4886 Oct, [facility] [address] [place] [address] Oct, Opioid use disorder, severe, in early remission F11.21 [facility] [id number] [place] [address] 13109- 1697 Sep, Opioid use disorder, severe, in early remission F11.21 [facility] [address] [place] [address] Sep, Opioid use disorder, severe, in early remission F11.21 [facility] [id number] [place] [address] 65855- 0549 Sep, Opioid use disorder, severe, in early remission F11.21 ; Other supervisor intermediates (current) drug therapy Z79.899 and Encounter for therapeutic drug level monitoring Z51.81 [facility] [id number] [place] [address] 91323- 5320 Sep, [facility] [id number] [place] [address] 29459- 4061 Sep, [facility] [id number] [place] [address] 53756- 2240 Sep, Opioid use disorder, severe, 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 ; 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 ; Chronic kidney disease, stage 3 N18.3 ; Essential hypertension I10 and Irritable bowel syndrome with constipation K58.1 [facility] [address] [place] [address] Sep, Opioid use disorder, severe, in early remission F11.21 [facility] [address] [place] [address] Sep, Opioid use disorder, severe, in early remission F11.21 [facility] [address] [place] [address] 24739- 6742 Sep, Opioid use disorder, moderate, dependence F11.20 [facility] [id number] [place] [address] 58709- 8989 Sep, Opioid use disorder, moderate, dependence F11.20 [facility] [address] [place] [address] Sep, Opioid use disorder, severe, 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 [address] [id number] [place] [address] 00829 3511 Sep, Opioid use disorder, severe, 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 [facility] [address] [place] [address] Aug, Opioid use disorder, severe, 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 [place] [id number] [place] [address] 62748- 0563 Aug, Opioid use disorder, moderate, dependence F11.20 [facility] [id number] [place] [address] 28084 -0110 Aug, Bug bite without infection, initial encounter W57.XXXA [place] [id number] [place] [address] 70921- 1628 Aug, Opioid use disorder, moderate, dependence F11.20 [facility] [address] [place] [address] Aug, [place] [id number] [place] [address] 12003- 1467 Aug, Opioid use disorder, severe, 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 ; Other supervisor intermediates (current) drug therapy Z79.899 ; Encounter for therapeutic drug level monitoring Z51.81 and 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 [facility] [address] [place] [address] Aug, [facility] [address] [place] [id number] [place] [address] 70603- 9185 Aug, Opioid use disorder, moderate, dependence F11.20 ; Other supervisor intermediates (current) drug therapy Z79.899 and Encounter for therapeutic drug level monitoring Z51.81 [facility] [address] 89042- 5795 Aug, [facility] [address] 98400- 4546 Aug, Non-intractable vomiting with nausea, unspecified vomiting type R11.2 [facility] [address] 045539- 5580 Aug, Opioid use disorder, moderate, dependence F11.20 and Non- intractable vomiting with nausea, unspecified vomiting type R11.2 [facility] [address] 29915- 0160 Aug, [facility] [address] 26800- 8414 Aug, Opioid use disorder, moderate, dependence F11.20 [facility] [id number] [place] [address] 82115- 5524 Aug, [facility] [address] 78335- 2965 Jul, 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 and Opioid use disorder, moderate, dependence F11.20 [facility] [address] [place] [address] Jul, [facility] [id number] [place] [address] 12093- 0944 Jul, [facility] [id number] [place] [address] 73684- 7272 Jul, [facility] [address] 81426- 0337 Jul, Addiction to drug F19.20 and Chronic kidney disease, stage 3 N18.3 [facility] [address] [place] [address] 17 Jul, 2016 Counseling on substance use and abuse Z71.89 [facility] [id number] [place] [address] 38651- 1746 Jul, Chronic kidney disease, stage 3 N18.3 [facility] [id number] [place] [address] 48665- 3591 Jul, 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 ; Diarrhea, unspecified type R19.7 and Essential hypertension I10 [place] [id number] [place] [address] 63523- 4762 Jul, [facility] [id number] [place] [address] 88255- 3416 Jun, [facility] [id number] [place] [address] 43538- 5342 Jun, [facility] [id number] [place] [address] 85736- 9838 Apr, 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 [facility] [id number] [place] [address] 83437- 4215 Apr, Sore throat and laryngitis J06.0 and Non-intractable vomiting with nausea, unspecified vomiting type R11.2 [facility] [id number] [place] [address] 10742- 2264 Apr, [facility] [id number] [place] [address] 58426- 8292 Mar, [facility] [id number] [place] [address] 31463- 6540 Jan, [facility] [id number] [place] [address] 12114- 0268 Jan, [facility] [id number] [place] [address] 59177- 2451 Jan, [facility] [id number] [place] [address] 31474- 9921 December, 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 ; Gastroparesis K31.84 ; Mixed hyperlipidemia E78.2 ; Chronic kidney disease, stage 3 N18.3 ; Dysthymia F34.1 and Acute bilateral low back pain without sciatica M54.5 [facility] [id number] [place] [address] 96429- 0671 December, [facility] [address] 90268- 9977 December, [facility] [address] 22754- 1227 Aug, Depression F32.9 and Gastroparesis K31.84 [place] [address] 44957- 2543 Aug, Gastroparesis K31.84 [place] [address] 06993- 4794 Jul, Recurrent UTI N39.0 ; Chronic kidney disease, stage 3 N18.3 and 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 [address] 30502 -1545 Jul, Dysuria R30.0 ; Urinary tract infection N39.0 and Nausea R11.0 [place] [address] [address] Jun, Dysuria R30.0 [facility] [address] [address] Jun, Dysuria R30.0 [place] [address] [id number] [address] Jun, Dysuria R30.0 [place] [address] [address] [place] [id number] [place] [address] Jun, [place] [address] [address] [place] [id number] [place] [address] Jun, Acute cystitis with hematuria N30.01 [place] [address] [address] [place] [id number] [place] [address] May, [place] [address] [address] [place] [id number] [place] [address] Apr, Diabetes mellitus without mention of complication, type I [ juvenile type], not stated as uncontrolled 250.01 ; Gastroparesis due to DM 250.60 ; Contraception management V25.9 and Renal insufficiency 593.9 [place] [id number] [place] [address] Apr, [place] [address] [address] [place] [id number] [place] [address] Apr, [place] [id number] [place] [address] Mar, [place] [id number] [place] [address]- [address]186 Mar, Hyperlipidemia 272.4 and Hypertensive heart and chronic kidney disease, benign, without heart failure and with chronic kidney disease stage I through stage IV, or unspecified 404.10 [place] [id number] [place] [address] 9595 Mar, Hyperlipidemia 272.4 ; Hyponatremia 276.1 ; 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 ; Hypertensive heart and chronic kidney disease, benign, without heart failure and with chronic kidney disease stage I through stage IV, or unspecified 404.10 ; Proteinuria 791.0 and Chronic kidney disease (CKD), stage III (moderate) 585.3 [place] [address] [address] Mar, [facility] [address] [address] Mar, Elevated blood sugar level 790.29 [facility] [address] [address] Mar, Low grade squamous intraepithelial lesion (LGSIL) on cervical Pap smear 795.03 [facility] [address] [address] 9[address] Mar, Amenorrhea 626.0 [facility] [id number] [place] [address]- 9215 Jan, Amenorrhea 626.0 ; Routine gynecological examination V72.31 and Screen for STD (sexually transmitted disease) V74.5 [facility] [address] [address] Jan, Amenorrhea 626.0 [facility] [address] [address] 08 Jan, 2015 Routine gynecological examination V72.31 ; Screen for STD ( sexually transmitted disease) V74.5 ; Pap test, as part of routine gynecological examination V76.2 ; Breast cancer screening V76.10 and Amenorrhea 626.0 [facility] [address] [address] December, [facility] [address] [address] 14 Dec, 2014 [facility] [address] [address] Dec, [facility] [address] [address] 6177 30 Oct, 2014 [facility] [address] [address] [address] 16 Oct, 2014 [facility] [address] [place] [id number] [place] [address], [place] [address]- [address] Oct, [facility] [place] [facility] [address] [id number] [place] [address] 3979 Oct, [facility] [place] [facility] [address] [id number] [place] [address]- 3720 Oct, [facility] [place] [facility] [address] [id number] [place] [address]- 2883 Oct, [facility] [place] [facility] [address] [id number] [place] [address]- 0656 Oct, [facility] [place] [facility] [address] [id number] [place] [address]- 0574 Oct, [facility] [place] [facility] [address] [id number] [place] [address]- 4330 Oct, [facility] [place] [facility] [address] [id number] [place] [address]- 3631 Oct, [facility] [place] [facility] [address] [id number] [place] [address]- 4708 Oct, [facility] [place] [facility] [address] [id number] [place] [address]- 3744 Sep, [facility] [place] [facility] [address] [id number] [place] [address]- 1205 Sep, [facility] [place] [facility] [address] [id number] [place] [address]- 2026 Sep, [facility] [place] [facility] [address] [id number] [place] [address]- 8487 Sep, [facility] [place] [facility] [address] [id number] [place] [address]- 1582 Sep, [facility] [place] [facility] [address] [id number] [place] [address]- 0831 Sep, [facility] [place] [facility] [address] [id number] [place] [address]- 5007 Sep, [facility] [place] [facility] [address] [id number] [place] [address]- 3218 15 Sep, 2014 [facility] [place] [facility] [address] [id number] [place] [address]- 5856 Sep, [facility] [place] [facility] [address] [id number] [place] [address]- 8724 Sep, [facility] [place] [facility] [address] [id number] [place] [address]- 4641 Sep, [facility] [place] [facility] [address] [id number] [place] [address]- 8254 Sep, [facility] [place] [facility] [address] [id number] [place] [address]- 1007 Sep, [facility] [place] [facility] [address] [id number] [place] [address]- 1211 Sep, [facility] [place] [facility] [address] [id number] [place] [address]- 7181 Sep, [facility] [place] [facility] [address] [id number] [place] [address]- 6848 Sep, [facility] [place] [facility] [address] [id number] [place] [address]- 1790 Sep, [facility] [place] [facility] [address] [id number] [place] [address]- 5657 Sep, [facility] [place] [facility] [address] [id number] [address]- 4003 Sep, [facility] [place] [facility] [address] [id number] [place] [address]- 1044 Sep, [facility] [place] [facility] [address] [id number] [place] [address]- 8806 Aug, [facility] [place] [facility] [address] [id number] [place] [address]- 4873 Aug, [facility] [place] [facility] [address] [id number] [address]- 2515 Aug, [facility] [place] [facility] [address] [id number] [place] [address]- 7982 Aug, [facility] [place] [facility] [address] [id number] [place] [address]23 Aug, [facility] [place] [facility] [address] [id number] [place] [address]- 7692 Aug, [facility] [place] [facility] [address] [id number] [place] [address]- 6341 Aug, [facility] [place] [facility] [address] [id number] [place] [address]- 8431 Aug, [facility] [place] [facility] [address] [id number] [place] [address]- 4890 Aug, [facility] [place] [facility] [address] [id number] [place] [address]- 2027 Aug, [facility] [place] [facility] [address] [id number] [place] [address]- 9933 Aug, [facility] [place] [facility] [address] [id number] [place] [address]- 0166 Aug, [facility] [place] [facility] [address] [id number] [place] [address]- 6556 Jul, [facility] [place] [facility] [address] [id number] [place] [address]- 3411 Jul, [facility] [place] [facility] [address] [id number] [address]- 3451 Jul, [facility] [place] [facility] [address] [id number] [place] [address]- 8842 Jul, [facility] [place] [facility] [address] [id number] [place] [address]- 6325 Jul, [facility] [place] [facility] [address] [id number] [place] [address]- 8868 Jul, [facility] [place] [facility] [address] [id number] [place] [address]- 4281 07 Jul, 2014 [facility] [place] [facility] [address] [id number] [place] [address]- 1508 Jul, [facility] [place] [facility] [address] [id number] [place] 114[address] Jul, [facility] [place] [facility] [address] [id number] [place] [address]- 1822 Jul, [facility] [place] [facility] [address] [id number] [place] [address]- 6213 Jun, [facility] [place] [facility] [address] [id number] [place] [address]- 3496 Jun, [facility] [place] [facility] [address] [id number] [place] [address]- 3308 Jun, [facility] [place] [facility] [address] [id number] [place] [address]- 7039 Jun, [facility] [place] [facility] [address] [id number] [place] [address]- 9166 30 Jun, 2014 [facility] [place] [facility] [address] [id number] [place] [address]- 1894 30 Jun, 2014 [facility] [place] [facility] [address] [id number] [place] [address]- 2543 15 Jun, 2014 [facility] [place] [facility] [address] [id number] [place] [address]- 2149 15 Jun, 2014 [facility] [place] [facility] [address] [id number] [place] [address]- 7436 22 May, 2014 [facility] [place] [facility] [address] [id number] [place] [address]- 1224 22 May, 2014 [facility] [place] [facility] [address] [id number] [place] [address]- 9718 18 May, 2014 [facility] [place] [facility] [address] [id number] [place] [address]- 2282 May, [facility] [place] [facility] [address] [id number] [place] [address]- 8668 May, [facility] [place] [facility] [address] [id number] [place] [address]- 5139 May, [facility] [place] [facility] [address] [id number] [place] [address]- 0454 May, [facility] [place] [facility] [address] [id number] [place] [address]- 8409 May, [facility] [place] [facility] [address] [id number] [place] [address]- 0129 Apr, [facility] [place] [facility] [address] [id number] [place] [address]- 8436 Apr, [facility] [place] [facility] [address] [id number] [place] [address]- 4214 Apr, [facility] [place] [facility] [address] [id number] [place] [address]- 3469 Apr, [facility] [place] [facility] [address] [id number] [place] [address]- 5195 Mar, [facility] [place] [facility] [address] [id number] [place] [address]- 5893 Mar, [facility] [place] [facility] [address] [id number] [place] [address]- 5483 Mar, [facility] [place] [facility] [address] [id number] [place] [address]- 6487 Mar, [facility] [place] [facility] [address] [id number] [place] [address]- 6579 Mar, [facility] [place] [facility] [address] [id number] [place] [address]- 4587 Mar, [facility] [place] [facility] [address] [id number] [place] [address]- 5158 Jan, [facility] [place] [facility] [address] [id number] [place] [address]- 7066 Jan, [facility] [place] [facility] [address] [id number] [place] [address]- 5097 Jan, [facility] [place] [facility] [address] [id number] [place] [address]- 0057 Jan, [facility] [place] [facility] [address] [id number] [place] [address]- 6734 Jan, [facility] [place] [facility] [address] [id number] [place] [address]- 4245 Jan, [facility] [place] [facility] [address] [id number] [place] [address]- 5102 Jan, [facility] [place] [facility] [address] [id number] [place] [address]- 6837 Jan, [facility] [place] [facility] [address] [id number] [place] [address]- 4392 Jan, [facility] [place] [facility] [address] [id number] [place] [address]- 9771 Jan, [facility] [place] [facility] [address] [id number] [place] [address]- 1324 Jan, [facility] [place] [facility] [address] [id number] [place] [address]- 7752 Jan, [facility] [place] [facility] [address] [id number] [place] [address]- 5859 December, [facility] [place] [facility] [address] [id number] [place] [address]- 7213 December, [facility] [place] [facility] [address] [id number] [place] [address]- 6018 December, [facility] [place] [facility] [address] [id number] [place] [address]- 4590 December, [facility] [place] [facility] [address] [id number] [place] [address]- 2416 Dec, [facility] [place] [facility] [address] [id number] [place] [address]- 8378 Dec, [facility] [place] [facility] [address] [id number] [place] [address]- 3087 Dec, [facility] [place] [facility] [address] [id number] [place] [address]- 8492 Dec, [facility] [place] [facility] [address] [id number] [place] [address]- 6831 Dec, [facility] [place] [facility] [address] [id number] [place] [address]- 5316 Dec, [facility] [place] [facility] [address] [id number] [place] [address]- 1083 Dec, [facility] [place] [facility] [address] [id number] [place] [address]- 7743 Dec, [facility] [place] [facility] [address] [id number] [place] [address]- 8088 Dec, [facility] [place] [facility] [address] [id number] [place] [address]- 2529 Dec, [facility] [place] [facility] [address] [id number] [place] [address]- 3457 Dec, [facility] [place] [facility] [address] [id number] [place] [address]- 1156 Dec, [facility] [place] [facility] [address] [id number] [place] [address]- 6555 Dec, [facility] [place] [facility] [address] [id number] [place] [address]- 9108 Dec, [facility] [place] [facility] [address] [id number] [place] [address]- 6298 Oct, [facility] [place] [facility] [address] [id number] [place] [address]- 0073 Oct, [facility] [place] [facility] [address] [id number] [place] [address]- 1002 29 Oct, 2013 [facility] [address] [id number] [place] [address]- 3885 29 Oct, 2013 [facility] [address] [id number] [place] [address]- 9116 Oct, [facility] [address] [id number] [place] [address]- 3383 Oct, [facility] [address] [id number] [place] [address] Oct, [facility] [address] [id number] [place] [address]- 6459 Oct, [facility] [address] [id number] [place] [address]- 5680 Oct, [facility] [address] [id number] [place] [address]- 2400 Oct, [facility] [address] [id number] [place] [address]- 0426 Sep, [facility] [address] [id number] [place] [address]- 4863 Sep, [facility] [address] [id number] [place] [address]- 3213 Sep, [facility] [address] [id number] [place] [address]- 6839 Sep, [facility] [place] [facility] [address] [id number] [address]- 2429 Sep, [facility] [place] [facility] [address] [id number] [place] [address]- 1244 Sep, [facility] [place] [facility] [address] [id number] [place] [address]- 6333 Aug, [facility] [place] [facility] [address] [id number] [place] [address]- 3869 Aug, [facility] [place] [facility] [address] [facility] [id number] [place] [address]- 4205 Jul, [facility] [address] [facility] [id number] [address]- 2006 Jul, [facility] [address] [facility] [id number] [address]- 6391 Jul, [facility] [address] [facility] [id number] [place] [address]- 1624 Jul, [facility] [address] [facility] [id number] [address]- 8134 Jul, IMMUNIZATIONS No Known Immunizations SOCIAL HISTORY Never Assessed REASON FOR VISIT SUBAB F/U PLAN OF CARE Activity Details Follow Up 1 Week Reason: VITAL SIGNS MEDICATIONS Unknown Medications RESULTS No Results PROCEDURES Procedure Date Ordered Result Body Site Psychotherapy, patient &/family, 30 minutes, established patient March 22, 2017 INSTRUCTIONS MEDICATIONS ADMINISTERED No Known [...]
--- OUTSIDE RECORDS SUMMARY | 2018-08-30 21:20 | XMS REPORT ---
Author Author ALVIN CARMEN [facility] Address [address] [place] [address] Care Team Providers Care Restaurant Kitchen Manager Name Role Phone CARMENALVIN Unavailable PROBLEMS Type Condition ICD9-CM Code [id number] Code Onset Dates Condition Status SNOMED Code Problem Essential hypertension I10 Active 48423548 Problem Addiction to drug F19.20 Active 204125703 Problem Diarrhea, unspecified type R19.7 Active 69566544 Problem Mild episode of recurrent major depressive disorder F33.0 Active 038002058 Problem Right acute serous otitis media, recurrence not specified H65.01 Active 922209076 Problem Other manager long term care (current) drug therapy Z79.899 Active 470524551 Problem Encounter for therapeutic drug level monitoring Z51.81 Active 441738792 Problem Opioid use disorder, severe, in sustained remission F11.21 Active 96851342 Problem Irritable bowel syndrome with constipation K58.1 Active 285565804 Problem 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 Active 05403432 Problem Gastroparesis K31.84 Active 924402054 Problem Acute bilateral low back pain without sciatica M54.5 Active 275783070 Problem Chronic kidney disease, stage 3 N18.3 Active 711685757 Problem Dysthymia F34.1 Active 22645696 Problem Recurrent UTI N39.0 Active 703860848 Problem Mixed hyperlipidemia E78.2 Active 324060093 ALLERGIES Substance Reaction Event Type Date Status Penicillin V Potassium rash Drug Allergy Jul, Active Cipro nausea and vomiting Drug Allergy Jul, Active Bactrim DS rash Drug Allergy Jul, Active SOCIAL HISTORY No smoking Hx information available PLAN OF CARE VITAL SIGNS MEDICATIONS Medication Instructions Dosage Frequency Start Date End Date Duration Status Vitamin B12 Active Dicyclomine HCl 10 mg Orally 3 times a day prn as directed Jul, Jul, 07 days Active Zofran ODT 4 MG Orally 3 times a day, prn take 1 tablets by Oral route every 8 hours PRN Nausea or Vomiting Sep, Active Enalapril Maleate 5 mg Orally Twice a day 1 tablet 12h Active Fish Oil 1000 MG Orally Once a day 2 capsule 24h Active Vitamin D (Ergocalciferol) 58332 UNIT Orally TWICE WEEKLY X8 WKS-AFTER 8 WEEKS TAKEN OTC VITAMIN D 2000 IU 1 capsule Mar, Active Tylenol 8 Hour Active Lovastatin 20 mg Orally Once a day 1 tablet with a meal 24h Mar, 30 day(s) Active Humalog 100 UNIT/ML Subcutaneous pump as per pump inject Units by Subcutaneous route every hour per insulin pump Active RESULTS Name Result Date Reference Range TEST, URINE (IN HOUSE) 2016-07-24 RESULTS Negative Lot # [id number] Control + Exp date 12/2017 CBC 2016-07-24 WBC 8.3 3.4-10.8 RBC 5.11 3.77-5.28 Hemoglobin 15.8 11.1-15.9 Hematocrit 46.8 34.0-46.6 MCV 92 79-97 MCH 30.9 26.6-33.0 MCHC 33.8 31.5-35.7 RDW 12.9 12.3-15.4 Platelets 248 150-379 Neutrophils 56 Lymphs 29 Monocytes 6 Eos 7 Basos 2 Neutrophils (Absolute) 4.6 1.4-7.0 Lymphs (Absolute) 2.4 0.7-3.1 Monocytes(Absolute) 0.5 0.1-0.9 Eos (Absolute) 0.6 0.0-0.4 Baso (Absolute) 0.2 0.0-0.2 Immature Granulocytes 0 Immature Grans (Abs) 0.0 0.0-0.1 PT/INR 2016-07-24 INR 0.9 0.8-1.2 Prothrombin Time 10.0 9.1-12.0 CMP 2016-07-24 Glucose, Serum 94 65-99 BUN 25 6-20 Creatinine, Serum 1.62 0.57-1.00 eGFR If NonAfricn Am 42 >59 eGFR If Africn Am 48 >59 BUN/Creatinine Ratio 15 8-20 Sodium, Serum 142 136-144 Potassium, Serum 4.6 3.5-5.2 Chloride, Serum 104 97-106 Carbon Dioxide, Total 23 18-29 Calcium, Serum 9.3 8.7-10.2 Protein, Total, Serum 6.6 6.0-8.5 Albumin, Serum 3.9 3.5-5.5 Globulin, Total 2.7 1.5-4.5 A/G Ratio 1.4 1.1-2.5 Bilirubin, Total 0.2 0.0-1.2 Alkaline Phosphatase, S 56 39-117 AST (SGOT) 18 0-40 ALT (SGPT) 14 0-32 HEPATITIS PROFILE 2016-07-24 Hep A Ab, IgM Negative Negative HBsAg Screen Negative Negative Hep B Core Ab, IgM Negative Negative Hep C Virus Ab <0.1 0.0-0.9 URINE DRUG SCREEN (IN HOUSE) 2016-07-24 Lot # [id number] Exp date 12/2017 Control + COCAINE Negative AMPH Negative MTD Negative THC Negative OPIATE Negative BENZO Negative PCP Negative BAR Negative OXY Positive MAMP Negative TCA Positive BUP Negative MDMA Negative PROCEDURES Procedure Date Ordered Related Diagnosis Body Site COMPLETE CBC W/AUTO DIFF WBC Jul 24, 2016 COMPREHEN METABOLIC PANEL Jul 24, 2016 VENIPUNCT, ROUTINE* Jul 24, 2016 No Charge Jul 24, 2016 DRUG SCREEN NON TLC DEVICES Jul 24, 2016 PROTHROMBIN TIME Jul 24, 2016 ACUTE HEPATITIS PANEL Jul 24, 2016 URINE TEST Jul 24, 2016 IMMUNIZATIONS No Known Immunizations
--- OUTSIDE RECORDS SUMMARY | 2018-08-30 21:21 | XMS REPORT ---
Author Author ALVIN CARMEN [facility] Address [address] [place] [address] Care Team Providers Care Talkback Host Name Role Phone NELLA ALVIN Unavailable PROBLEMS Type Condition ICD9-CM Code [id number] Code Onset Dates Condition Status SNOMED Code Problem Essential hypertension I10 Active 51429762 Problem Addiction to drug F19.20 Active 668321252 Problem Diarrhea, unspecified type R19.7 Active 23527300 Problem Right acute serous otitis media, recurrence not specified H65.01 Active 050849951 Problem Mild episode of recurrent major depressive disorder F33.0 Active 251865198 Problem Encounter for therapeutic drug level monitoring Z51.81 Active 940095803 Problem Other long wall mining machine helper (current) drug therapy Z79.899 Active 486058576 Problem Opioid use disorder, severe, in sustained remission F11.21 Active 88927542 Problem Irritable bowel syndrome with constipation K58.1 Active 474875806 Problem Recurrent UTI N39.0 Active 102425569 Problem Gastroparesis K31.84 Active 510395328 Problem Acute bilateral low back pain without sciatica M54.5 Active 647030971 Problem Chronic kidney disease, stage 3 N18.3 Active 271651506 Problem Dysthymia F34.1 Active 64294157 Problem 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
--- OUTSIDE RECORDS SUMMARY | 2018-08-30 21:21 | XMS REPORT ---
Author ALVIN Villar [facility] [employer] Address Unknown Phone Unavailable Care Team Providers Care Blueprint Assembler Name Role Phone ALVIN CARMEN CP Unavailable Allergies, Adverse Reactions, Alerts Substance Reaction Event Type Penicillin V Potassium rash Drug Allergy Cipro nausea and vomiting Drug Allergy Bactrim DS rash Drug Allergy Problems Problem Type Condition Code Onset Dates Condition Status Assessment Sore throat and laryngitis J06.0 Active Assessment Non-intractable vomiting with nausea, unspecified vomiting type R11.2 Active Problem Dysthymia F34.1 Active Problem Acute bilateral low back pain without sciatica M54.5 Active Problem Mixed hyperlipidemia E78.2 Active Problem Chronic kidney disease, stage 3 N18.3 Active Problem 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 Active Problem Gastroparesis K31.84 Active Problem Recurrent UTI N39.0 Active Medications Medication Code System Code Instructions Start Date End Date Status Dosage Humalog [facility] [address]-04 100 UNIT/ML Subcutaneous pump as per pump inject Units by Subcutaneous route every hour per insulin pump Vitamin D (Ergocalciferol) [facility] [address]-65 77551 UNIT Orally TWICE WEEKLY X8 WKS-AFTER 8 WEEKS TAKEN OTC VITAMIN D 2000 IU March 30, 2015 1 capsule Vitamin B12 [facility] [address]-87 not defined Enalapril Maleate [facility] [address]-29 5 mg Orally Twice a day 1 tablet Trazodone HCl [facility] [address]-74 50 mg Orally Once a day February 16, 2016 1-2 tablets at bedtime as needed Fish Oil [facility] [address]-32 1000 MG Orally Once a day 2 capsule Lovastatin [facility] [address]-33 20 MG Orally Once a day March 30, 2015 1 tablet with a meal Tylenol 8 Hour NDC 0 not defined Zofran ODT [facility] [address]-83 4 MG Orally 3 times a day, prn Sep 17, 2014 take 1 tablets by Oral route every 8 hours PRN Nausea or Vomiting Procedures Procedure Coding System Code Date HETEROPHILE ANTIBODIES CPT-4 72064 Apr 18, 2016 Office Visit, Est Pt., Level 3 CPT-4 85983 Apr 18, 2016 STREP A ASSAY W/OPTIC CPT-4 77444 Apr 18, 2016 Vital Signs Date/Time: Apr 18, 2016 Cardiac Monitoring Heart Rate 74 bpm Weight 170.0 lbs Height 66 in BMI 27.44 Index Blood Pressure Diastolic 88 mmHg Blood Pressure Systolic 139 mmHg Results No Known Results Summary Purpose eClinicalWorks Submission
--- OUTSIDE RECORDS SUMMARY | 2018-08-30 21:21 | XMS REPORT ---
Author Author YANNICK JOSUE Organization [employer] Address Unknown Phone Unavailable Care Team Providers Care Fur Dyer Name Role Phone YANNICK JOSUE CP Unavailable Allergies No Known Allergies Problems Problem Type Condition Code Onset Dates Condition Status Assessment Chronic kidney disease, stage 3 N18.3 Active Problem Chronic kidney disease, stage 3 [...] Instructions Start Date End Date Status Dosage Lovastatin [facility] [address]-78 20 mg Orally Once a day March 30, 2015 1 tablet with a meal Results No Known Results Summary Purpose eClinicalWorks Submission
--- OUTSIDE RECORDS SUMMARY | 2018-08-30 21:21 | XMS REPORT ---
Author Author CARLOTTA MIR Organization [facility] Address [address] [place] [address] Care Team Providers Care Tractor Engine Mechanic Name Role Phone ADEOLA CARLOTTA Unavailable PROBLEMS Type Condition ICD9-CM Code [id number] Code Onset Dates Condition Status SNOMED Code Problem Essential hypertension I10 Active 53163398 Problem Addiction to drug F19.20 Active 554160049 Problem Diarrhea, unspecified type R19.7 Active 57169924 Problem Right acute serous otitis media, recurrence not specified H65.01 Active 475499135 Problem Mild episode of recurrent major depressive disorder F33.0 Active 895851347 Problem Encounter for therapeutic drug level monitoring Z51.81 Active 548379783 Problem Other supervisor cytology (current) drug therapy Z79.899 Active 466137736 Problem Opioid use disorder, severe, in sustained remission F11.21 Active 94787072 Problem Irritable bowel syndrome with constipation K58.1 Active 325609957 Problem Recurrent UTI N39.0 Active 661110183 Problem Gastroparesis K31.84 Active 364352520 Problem Acute bilateral low back pain without sciatica M54.5 Active 750441826 Problem Chronic kidney disease, stage 3 N18.3 Active 509332732 Problem Dysthymia F34.1 Active 84194349 Problem 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 Active 78199016 Problem Mixed hyperlipidemia E78.2 Active 921278490 ALLERGIES No Information SOCIAL HISTORY Never Assessed PLAN OF CARE Activity Details Follow Up 1 Week Reason: VITAL SIGNS MEDICATIONS Unknown Medications RESULTS No Results PROCEDURES Procedure Date Ordered Result Body Site Psychotherapy, patient &/family, 60 minutes, established patient Oct 16, 2016 IMMUNIZATIONS No Known Immunizations MEDICAL (GENERAL) HISTORY Type Description Date Medical History Type 1 Diabetes mellitus Medical History hx of hypertension Medical History gastroparesis Medical History hx of renal insufficiency 09/2014 Medical History Unspecified renal failure Medical History Gastroparesis due to DM Surgical History oral surgery at age 16 Hospitalization History Gastroperisis 2011
--- OUTSIDE RECORDS SUMMARY | 2018-08-30 21:21 | XMS REPORT ---
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 Active 16577680 Problem Chronic kidney disease, stage 3 N18.3 Active 665105119 Problem CHI I (cervical intraepithelial neoplasia I) N87.0 Active 701025439 Problem Mild episode of recurrent major depressive disorder F33.0 Active 368589530 Problem Addiction to drug F19.20 Active 351464143 Problem Essential hypertension I10 Active 39924449 Problem Opioid use disorder, severe, in sustained remission F11.21 Active 23975127 Problem Irritable bowel syndrome with constipation K58.1 Active 915170584 ALLERGIES No Information ENCOUNTERS Encounter Location Date Diagnosis [facility] [address] [place] [address] December, [facility] [id number] [place] [address] 82651- 7431 December, [facility] [address] [place] [address] Dec, Opioid use disorder, severe, in sustained remission F11.21 [facility] [id number] [place] [address] 73592- 2855 Dec, 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 ; Unprotected sexual intercourse Z72.51 ; Pain of left thumb M79.645 ; Mixed hyperlipidemia E78.2 ; Gastroparesis K31.84 ; Essential hypertension I10 and Irritable bowel syndrome with constipation K58.1 [facility] [id number] [place] [address] 51425- 8686 Dec, Opioid use disorder, severe, in early remission F11.21 [facility] [id number] [place] [address] 41376- 6276 Oct, [facility] [id number] [place] [address] 43154 254 Oct, Opioid use disorder, severe, in early remission F11.21 [facility] [id number] [place] [address] 65053- 5086 Oct, [facility] [id number] [place] [address] 912101- 5286 Oct, Opioid use disorder, severe, in early remission F11.21 [facility] [id number] [place] [address] 61842- 2606 Oct, [facility] [id number] [place] [address] 90536- 254 Oct, [facility] [address] [place] [address] Oct, Opioid use disorder, severe, in sustained remission F11.21 [facility] [id number] [place] [address] 88477- 7835 Sep, [facility] [id number] [place] [address] 75860 2544 Sep, [facility] [id number] [place] [address] 08344- 0920 Sep, Opioid use disorder, severe, in early remission F11.21 [facility] [id number] [place] [address] 392536- 5746 Aug, Opioid use disorder, severe, in early remission F11.21 [facility] [id number] [place] [address] 15767- 3058 Jul, [facility] [id number] [place] [address] 75087- 6205 Jul, Chronic kidney disease, stage 3 N18.3 ; Dysthymia F34.1 and Opioid use disorder, severe, in sustained remission F11.21 [facility] [address] [place] [address] Jul, Opioid use disorder, severe, in sustained remission F11.21 [facility] [id number] [place] [address] 76274- 0638 Jul, Long-term use of high-risk medication Z79.899 and Chronic kidney disease, stage 3 N18.3 [facility] [id number] [place] [address] 62487- 6647 Jul, Opioid use disorder, severe, in early remission F11.21 [facility] [id number] [place] [address] 14079- 8671 Jul, [facility] [id number] [place] [address] 61402- 9486 Jun, [facility] [id number] [place] [address] 03817- 8594 Jun, [facility] [id number] [place] [address] 58218- 5080 Jun, Opioid use disorder, moderate, dependence F11.20 and Opioid use disorder, severe, in early remission F11.21 [facility] [id number] [place] [address] 67659- 8790 Jun, [facility] [id number] [place] [address] 96175- 7229 Jun, Long-term use of high-risk medication Z79.899 [facility] [id number] [place] [address] 72706- 9017 Jun, CHI I (cervical intraepithelial neoplasia I) N87.0 [facility] [id number] [place] [address] 21676- 7905 May, Opioid use disorder, severe, in early remission F11.21 [facility] [id number] [place] [address] 59620- 4900 18 May, 2017 Chronic kidney disease, stage 3 N18.3 [facility] [id number] [place] [address] 05463- 9297 14 May, 2017 Chronic kidney disease, stage 3 N18.3 [facility] [address] [place] [address] 05 May, 2017 Opioid use disorder, severe, in sustained remission F11.21 [facility] [id number] [place] [address] 78176- 7299 Apr, LGSIL on Pap smear of cervix R87.612 [facility] [address] [place] [address] Apr, [facility] [id number] [place] [address] 60107- 4678 Apr, Opioid use disorder, severe, in early remission F11.21 [facility] [id number] [place] [address] 73621- 2650 Apr, Opioid use disorder, severe, in early remission F11.21 [facility] [id number] [place] [address] 37522- 1185 Apr, Opioid use disorder, severe, in early remission F11.21 [facility] [address] [place] [address] 52925- 9993 Apr, Opioid use disorder, severe, in early remission F11.21 [facility] [id number] [place] [address] 47022- 8768 Apr, 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 [facility] [id number] [place] [address] 76368- 2824 Apr, Opioid use disorder, severe, in early remission F11.21 [facility] [address] [place] [address] Apr, Opioid use disorder, severe, in sustained remission F11.21 [facility] [address] [place] [address] 36285- 4571 Apr, Opioid use disorder, severe, in early remission F11.21 [facility] [id number] [place] [address] 92480- 2152 Apr, Mild episode of recurrent major depressive disorder F33.0 and Right acute serous otitis media, recurrence not specified H65.01 [facility] [id number] [place] [address] 11075- 6034 Mar, [facility] [id number] [place] [address] 93744- 8463 Mar, Opioid use disorder, severe, in early remission F11.21 [facility] [id number] [place] [address] 45796- 6984 Mar, [facility] [address] [place] [address] Mar, Opioid use disorder, severe, in sustained remission F11.21 [facility] [address] [place] [address] Mar, Opioid use disorder, severe, in sustained remission F11.21 [facility] [id number] [place] [address] 33491- 0717 Mar, Opioid use disorder, severe, in early remission F11.21 [facility] [id number] [place] [address] 00871- 9725 Jan, Opioid use disorder, severe, in early remission F11.21 [facility] [address] [place] [address] Jan, Opioid use disorder, severe, in sustained remission F11.21 [facility] [address] [place] [address] Jan, Opioid use disorder, severe, in sustained remission F11.21 [facility] [id number] [place] [address] 36146- 7042 Jan, Opioid use disorder, severe, in early remission F11.21 [facility] [address] [place] [address] Jan, Opioid use disorder, severe, in sustained remission F11.21 [facility] [id number] [place] [address] 31370- 7202 December, Opioid use disorder, severe, in early remission F11.21 [facility] [address] [place] [address] December, Opioid use disorder, severe, in sustained remission F11.21 [place] [id number] [place] [address] 20030- 9471 December, Routine gynecological examination Z01.419 and Chronic kidney disease, stage 3 N18.3 [place] [id number] [place] [address] 76062- 2257 December, Chronic kidney disease, stage 3 N18.3 ; 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 ; Gastroparesis K31.84 ; Essential hypertension I10 and Irritable bowel syndrome with constipation K58.1 [facility] [address] [place] [address] December, Opioid use disorder, severe, in sustained remission F11.21 [place] [id number] [place] [address] 30728- 9311 December, Opioid use disorder, severe, in early remission F11.21 [facility] [address] [place] [address] December, Opioid use disorder, severe, in sustained remission F11.21 [place] [id number] [place] [address] 78747- 2479 December, Encounter for therapeutic drug level monitoring Z51.81 [facility] [address] [place] [address] December, Opioid use disorder, severe, in sustained remission F11.21 [facility] [address] [place] [address] Dec, Opioid use disorder, severe, in sustained remission F11.21 [address] [place] [address] 2362 Dec, Opioid use disorder, severe, in early remission F11.21 [facility] [id number] [place] [address] 00602- 5783 Dec, 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 [facility] [id number] [place] [address] 76585- 0878 Dec, Opioid use disorder, severe, in sustained remission F11.21 ; Encounter for therapeutic drug level monitoring Z51.81 and Other usp ( current) drug therapy Z79.899 [facility] [address] [place] [address] Oct, Opioid use disorder, severe, in sustained remission F11.21 [facility] [address] [place] [address] 38285- 5490 Oct, Opioid use disorder, severe, in early remission F11.21 [facility] [id number] [place] [address] 34175- 1206 Oct, [facility] [address] [place] [address] Oct, Opioid use disorder, severe, in sustained remission F11.21 [facility] [id number] [place] [address] 75253- 0464 Oct, 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 [facility] [id number] [place] [address] 47470- 5090 14 Oct, 2016 Routine gynecological examination Z01.419 [place] [address] 66320- 1827 07 Oct, 2016 Opioid use disorder, severe, in early remission F11.21 [facility] [address] 74477- 3220 06 Oct, 2016 Opioid use disorder, severe, in early remission F11.21 [facility] [address] 05465- 5077 Oct, Opioid use disorder, severe, in early remission F11.21 [facility] [address] [place] [address] Oct, Opioid use disorder, severe, in sustained remission F11.21 [facility] [facility] [address] 82872- 0316 24 Oct, 2016 Opioid use disorder, severe, in early remission F11.21 [place] [address] 83954- 0623 23 Oct, 2016 Opioid use disorder, severe, in early remission F11.21 [facility] [address] [place] [address] 22 Oct, 2016 Opioid use disorder, severe, in sustained remission F11.21 [place] [id number] [place] [address] 39301- 7846 Oct, Opioid use disorder, severe, in sustained remission F11.21 ; Encounter for therapeutic drug level monitoring Z51.81 and 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 [place] [address] 11008- 2638 16 Oct, 2016 [facility] [address] [place] [address] 14 Oct, 2016 Opioid use disorder, severe, in early remission F11.21 [facility] [address] [place] [address] 10 Oct, 2016 Opioid use disorder, severe, in early remission F11.21 [facility] [id number] [place] [address] 16417- 5660 Oct, Opioid use disorder, severe, in early remission F11.21 [facility] [id number] [place] [address] 50750- 5835 Oct, [facility] [id number] [place] [address] 05626- 5605 Oct, [facility] [id number] [place] [address] 50841- 1570 Oct, [facility] [address] [place] [address] Oct, Opioid use disorder, severe, in early remission F11.21 [facility] [id number] [place] [address] 60047- 7096 Sep, Opioid use disorder, severe, in early remission F11.21 [facility] [address] [place] [address] Sep, Opioid use disorder, severe, in early remission F11.21 [facility] [id number] [place] [address] 09223- 5018 Sep, Opioid use disorder, severe, in early remission F11.21 ; Other usp (current) drug therapy Z79.899 and Encounter for therapeutic drug level monitoring Z51.81 [facility] [id number] [place] [address] 70350- 5957 Sep, [facility] [address] [place] [address] 37058- 3722 Sep, [facility] [id number] [place] [address] 54534- 5365 Sep, Opioid use disorder, severe, 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 [address] [place] [address] Sep, Opioid use disorder, severe, in early remission F11.[address] 43088- 6937 Sep, Opioid use disorder, severe, in early remission F11.21 [facility] [address] [place] [address] Aug, Opioid use disorder, severe, in early remission F11.[address] 83361- 9295 Aug, Opioid use disorder, moderate, dependence F11.[address] [facility] [address] [place] [id number] [place] [address] 97651 -2925 Aug, Bug bite without infection, initial encounter W57.XXXA [place] [id number] [place] [address] 26910- 5879 Aug, Opioid use disorder, moderate, dependence F11.[address] 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 [facility] [address] [place] [address] Aug, [facility] [address] 79189- 7752 Aug, Opioid use disorder, moderate, dependence F11.20 ; Other usp (current) drug therapy Z79.899 and Encounter for therapeutic drug level monitoring Z51.81 [facility] [address] 93338- 7938 Aug, [facility] [address] 44697- 2867 Aug, Non-intractable vomiting with nausea, unspecified vomiting type R11.2 [facility] [address] 11000- 6764 Aug, Opioid use disorder, moderate, dependence F11.20 and Non- intractable vomiting with nausea, unspecified vomiting type R11.2 [facility] [address] 32792- 6931 Aug, [facility] [address] 74325- 2370 Aug, Opioid use disorder, moderate, dependence F11.20 [facility] [address] 01842- 1431 Aug, [facility] [id number] [place] [address] 68109- 5919 Jul, 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 [address] [place] [address] Jul, [facility] [address] 75609- 8651 Jul, [facility] [address] 55136- 1246 Jul, [facility] [address] 84226- 1470 Jul, Addiction to drug F19.20 and Chronic kidney disease, stage 3 N18.3 [facility] [address] [place] [address] Jul, Counseling on substance use and abuse Z71.89 [facility] [id number] [place] [address] 97723- 4588 Jul, Chronic kidney disease, stage 3 N18.3 [facility] [id number] [place] [address] 66891- 5267 Jul, 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 ; Diarrhea, unspecified type R19.7 and Essential hypertension I10 [facility] [address] 37273- 0074 Jul, [facility] [id number] [place] [address] 90225- 6865 Jun, [facility] [address] 94572- 8649 Jun, [facility] [id number] [place] [address] 72585- 4173 Apr, 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 [facility] [id number] [place] [address] 54377- 9021 Apr, Sore throat and laryngitis J06.0 and Non-intractable vomiting with nausea, unspecified vomiting type R11.2 [facility] [id number] [place] [address] 13099- 4177 Apr, [facility] [id number] [place] [address] 60295- 3714 Mar, [facility] [address] 46362- 5354 Jan, [facility] [id number] [place] [address] 66033- 8247 Jan, [facility] [address] 52345- 2766 Jan, [facility] [address] 70985- 7529 December, 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 ; Gastroparesis K31.84 ; Mixed hyperlipidemia E78.2 ; Chronic kidney disease, stage 3 N18.3 ; Dysthymia F34.1 and Acute bilateral low back pain without sciatica M54.5 [place] [address] 37534- 9637 December, [place] [address] 91715- 3007 December, [place] [address] 16331- 5004 Aug, Depression F32.9 and Gastroparesis K31.84 [place] [address] 61702- 1074 Aug, Gastroparesis K31.84 [place] [address] 71520- 4639 Jul, Recurrent UTI N39.0 ; Chronic kidney disease, stage 3 N18.3 and 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 [place] [address] 41962- 7970 Jul, [facility] [address] [id number] Jul, Dental examination Z01.20 and Dental caries K02.[address] 57980- 3907 Jul, [facility] [address] 81191 -0139 Jul, Dysuria R30.0 ; Urinary tract infection N39.0 and Nausea R11.0 [place] [address] 43043- 2597 Jun, Dysuria R30.0 [place] [id number] [place] [address] 33454- 6677 Jun, Dysuria R30.0 [facility] [id number] [place] [address] 78913- 9002 Jun, Dysuria R30.0 [facility] [address] [address] [id number] [place] [address] 63201- 8918 Jun, [facility] [id number] [place] [address] 44191- 6999 Jun, Acute cystitis with hematuria N30.01 [place] [address] [id number] [place] [address] 29997- 0656 May, [place] [address] [id number] [place] [address] 62962- 4811 Apr, Diabetes mellitus without mention of complication, type I [ juvenile type], not stated as uncontrolled 250.01 ; Gastroparesis due to DM 250.60 ; Contraception management V25.9 and Renal insufficiency 593.9 [place] [address] [place] [address] [id number] [place] [address] 14025- 8176 Apr, [facility] [address] [address]- 6877 Apr, [place] [address] [address]- 3293 Mar, [facility] [id number] [place] [address] 13475- 7445 Mar, Hyperlipidemia 272.4 and Hypertensive heart and chronic kidney disease, benign, without heart failure and with chronic kidney disease stage I through stage IV, or unspecified 404.10 [facility] [address] [address]- 1114 Mar, Hyperlipidemia 272.4 ; Hyponatremia 276.1 ; 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 ; Hypertensive heart and chronic kidney disease, benign, without heart failure and with chronic kidney disease stage I through stage IV, or unspecified 404.10 ; Proteinuria 791.0 and Chronic kidney disease (CKD), stage III (moderate) 585.3 [place] [id number] [place] [address] [id number] Mar, [place] [address] [place] [id number] [place] [id number] Mar, Elevated blood sugar level 790.29 [place] [address] [place] [id number] [place] [id number] [phone] Mar, Low grade squamous intraepithelial lesion (LGSIL) on cervical Pap smear 795.03 [place] [address] [place] [id number] [place] [id number]- [address] Mar, Amenorrhea 626.0 [place] [address] [place] [id number] [place] [id number]- [id number] Jan, Amenorrhea 626.0 ; Routine gynecological examination V72.31 and Screen for STD (sexually transmitted disease) V74.5 [place] [id number] [place] [address]609- 4713 Jan, Amenorrhea 626.0 [place] [id number] [place] [address] 79754- 4559 Jan, Routine gynecological examination V72.31 ; Screen for STD ( sexually transmitted disease) V74.5 ; Pap test, as part of routine gynecological examination V76.2 ; Breast cancer screening V76.10 and Amenorrhea 626.0 [place] [address] [address] December, [place] [address] [place] [id number] [place] [address] 8[address]65- 7488 Dec, [place] [id number] [place] [address] 45636- 4462 Dec, [place] [address] [place] [id number] [place] [address] 62949- 3308 Oct, [facility] [place] [facility] [address] [id number] [place] [address] 8032 Oct, [facility] [place] [facility] [address] [id number] [place] [address]- 8335 Oct, [facility] [place] [facility] [address] [id number] [place] [address]- 6097 Oct, [facility] [place] [facility] [address] [id number] [place] [address]- 7778 Oct, [facility] [place] [facility] [address] [id number] [place] [address]- 7053 Oct, [facility] [place] [facility] [address] [id number] [place] [address]- 4144 Oct, [facility] [place] [facility] [address] [id number] [place] [address]- 6005 Oct, [facility] [place] [facility] [address] [id number] [place] [address]- 3337 Oct, [facility] [place] [facility] [address] [id number] [place] [address]- 9857 Oct, [facility] [place] [facility] [address] [id number] [place] [address]- 5419 Oct, [facility] [place] [facility] [address] [id number] [place] [address]- 4388 Sep, [facility] [place] [facility] [address] [id number] [place] [address]- 9684 Sep, [facility] [place] [facility] [address] [id number] [place] [address]- 2109 Sep, [facility] [place] [facility] [address] [id number] [place] [address]- 0844 Sep, [facility] [place] [facility] [address] [id number] [place] [address]- 0931 Sep, [facility] [place] [facility] [address] [id number] [place] [address]- 6940 16 Sep, 2014 [facility] [address] [id number] [place] [address]- 1296 Sep, [facility] [place] [facility] [address] [id number] [place] [address]- 4149 Sep, [facility] [place] [facility] [address] [id number] [place] [address]- 0867 Sep, [facility] [place] [facility] [address] [id number] [place] [address]- 0184 Sep, [facility] [place] [facility] [address] [id number] [place] [address]17 Sep, [facility] [place] [facility] [address] [id number] [place] [address]- 4207 Sep, [facility] [place] [facility] [address] [id number] [place] [address]- 0273 Sep, [facility] [place] [facility] [address] [id number] [place] [address]- 7699 Sep, [facility] [place] [facility] [address] [id number] [place] [address]- 7339 Sep, [facility] [place] [facility] [address] [id number] [place] [address]- 1531 Sep, [facility] [place] [facility] [address] [id number] [place] [address]- 6558 Sep, [facility] [place] [facility] [address] [id number] [place] [address]- 7393 Sep, [facility] [place] [facility] [address] [id number] [place] [address]- 2722 Sep, [facility] [place] [facility] [address] [id number] [place] [address]- 4026 Sep, [facility] [place] [facility] [address] [id number] [place] [address]- 9227 Aug, [facility] [place] [facility] [address] [id number] [place] [address]- 6055 Aug, [facility] [place] [facility] [address] [id number] [place] [address]- 0424 Aug, [facility] [place] [facility] [address] [id number] [place] [address] Aug, [facility] [place] [facility] [address] [id number] [place] [address]- 9864 Aug, [facility] [place] [facility] [address] [id number] [place] [address]- 0095 Aug, [facility] [place] [facility] [address] [id number] [place] [address]- 0663 Aug, [facility] [place] [facility] [address] [id number] [place] [address]- 2678 Aug, [facility] [place] [facility] [address] [id number] [place] [address]- 5955 Aug, [facility] [place] [facility] [address] [id number] [place] [address]- 4386 Aug, [facility] [place] [facility] [address] [id number] [place] [address]- 0706 Aug, [facility] [place] [facility] [address] [id number] [place] [address]- 6221 Aug, [facility] [place] [facility] [address] [id number], [place] [address]- 2815 Jul, [facility] [place] [facility] [address] [id number] [place] [address]- 5025 Jul, [facility] [place] [facility] [address] [id number] [place] [address]- 1043 Jul, [facility] [place] [facility] [address] [id number] [place] [address]- 8735 Jul, [facility] [place] [facility] [address] [id number] [place] [address] Jul, [facility] [place] [facility] [address] [id number] [place] [address]- 4995 17 Jul, 2014 [facility] [place] [facility] [address] [id number] [place] [address]- 2864 Jul, [facility] [place] [facility] [address] [id number] [place] [address]- 6407 Jul, [facility] [place] [facility] [address] [id number] [place] [address]- 7841 Jul, [facility] [place] [facility] [address] [id number] [place] [address]- 5255 Jul, [facility] [place] [facility] [address] [id number] [place] [address]- 2014 Jun, [facility] [place] [facility] [address] [id number] [place] [address]- 7516 31 Jun, 2014 [facility] [place] [facility] [address] [id number] [place] [address]- 1932 30 Jun, 2014 [facility] [place] [facility] [address] [id number] [place] [address]- 2743 30 Jun, 2014 [facility] [place] [facility] [address] [facility] [id number] [place] [address]- 6656 30 Jun, 2014 [facility] [place] [facility] [address] [id number] [place] [address]- 3450 30 Jun, 2014 [facility] [place] [facility] [address] [id number] [place] [address]- 2722 15 Jun, 2014 [facility] [place] [facility] [address] [id number] [place] [address]- 0432 15 Jun, 2014 [facility] [place] [facility] [address] [id number] [place] [address]- 3448 May, [facility] [place] [facility] [address] [id number] [place]75 May, [facility] [place] [facility] [address] [id number] [place] [address]- 8394 May, 2013 [facility] [place] [facility] [address] [id number] [place] [address]- 1906 May, [facility] [place] [facility] [address] [id number] [place] [address]- 0731 May, [facility] [place] [facility] [address] [id number] [place] [address]- 1023 May, [facility] [place] [facility] [address] [id number] [place] [address]- 8146 May, [facility] [place] [facility] [address] [id number] [place] [address]- 0672 May, [facility] [place] [facility] [address] [id number] [place] [address]- 0631 Apr, [facility] [place] [facility] [address] [id number] [place] [address]- 0290 Apr, [facility] [place] [facility] [address] [id number] [place] [address]- 4790 Apr, [facility] [place] [facility] [address] [id number] [place] [address]- 3412 Apr, [facility] [place] [facility] [address] [id number] [place] [address]- 2814 Mar, [facility] [place] [facility] [address] [id number] [place] [address]- 3407 Mar, [facility] [place] [facility] [address] [id number] [place] [address]- 6698 Mar, [facility] [place] [facility] [address] [id number] [place] [address]- 3970 Mar, [facility] [place] [facility] [address] [id number] [place] [address]- 9972 Mar, [facility] [place] [facility] [address] [id number] [place] [address]- 8160 Mar, [facility] [place] [facility] [address] [id number] [place] [address]- 4361 Jan, [facility] [place] [facility] [address] [id number] [place] [address]- 1621 Jan, [facility] [place] [facility] [address] [id number] [place] [address]- 3643 Jan, [facility] [place] [facility] [address] [id number] [place] [address]- 3879 Jan, [facility] [place] [facility] [address] [id number] [place] [address]- 6376 Jan, [facility] [place] [facility] [address] [id number] [place] [address]- 8566 Jan, [facility] [place] [facility] [address] [id number] [place] [address]- 0854 Jan, [facility] [place] [facility] [address] [id number] [place] [address]- 8263 Jan, [facility] [place] [facility] [address] [id number] [place] [address]- 9935 Jan, [facility] [place] [facility] [address] [id number] [place] [address]- 0483 Jan, [facility] [place] [facility] [address] [id number] [place] [address]- 4829 Jan, [facility] [place] [facility] [address] [id number], [place] [address]- 1215 Jan, [facility] [place] [facility] [address] [id number] [place] [address]- 8609 December, [facility] [place] [facility] [address] [id number] [place] [address]- 5268 December, [facility] [place] [facility] [address] [id number] [place] [address]- 6066 December, [facility] [place] [facility] [address] [id number] [place] [address]- 6556 December, [facility] [address] [id number] [place] [address]- 5800 Dec, [facility] [place] [facility] [address] [id number] [place] [address]- 8806 Dec, [facility] [address] [id number] [place] [address]- 8678 Dec, [facility] [place] [facility] [address] [id number] [place] [address]- 9803 Dec, [facility] [address] [id number] [place] [address]- 1001 Dec, [facility] [address] [id number] [place] [address]- 3258 Dec, [facility] [address] [id number] [place] [address]- 3062 Dec, [facility] [address] [id number] [place] [address]- 1526 Dec, [facility] [place] [facility] [address] [id number] [place] [address]- 6012 Dec, [facility] [address] [id number] [place] [address]- 1185 Dec, [facility] [place] [facility] [address] [id number] [place] [address]- 4658 Dec, [facility] [place] [facility] [address] [id number] [place] [address]- 8625 Dec, [facility] [place] [facility] [address] [id number] [place] [address]- 6898 Dec, [facility] [place] [facility] [address] [id number] [place] [address]- 9306 Dec, [facility] [place] [facility] [address] [id number] [place] [address]- 5670 Oct, [facility] [place] [facility] [address] [id number] [place] [address]- 0512 31 Oct, 2013 [facility] [place] [facility] [address] [id number] [place] [address]- 7610 29 Oct, 2013 [facility] [place] [facility] [address] [id number] [place] [address]- 2276 29 Oct, 2013 [facility] [place] [facility] [address] [id number] [place] [address]- 3337 Oct, [facility] [address] [id number] [place] [address]- 7514 Oct, [facility] [place] [facility] [address] [id number] [place] [address] Oct, [facility] [place] [facility] [address] [id number] [place] [address]- 1103 Oct, [facility] [place] [facility] [address] [id number] [place] [address]- 0731 Oct, [facility] [place] [facility] [address] [id number] [place] [address]- 5105 Oct, [facility] [place] [facility] [address] [id number] [place] [address]- 7282 Sep, [facility] [place] [facility] [address] [id number] [place] [address]- 0594 Sep, [facility] [place] [facility] [address] [id number] [place] [address]- 8155 Sep, [facility] [place] [facility] [address] [id number] [place] [address]- 0501 Sep, [facility] [place] [facility] [address] [id number] [place] [address]- 2754 Sep, [facility] [place] [facility] [address] [id number] [place] [address]- 3852 Sep, [facility] [place] [facility] [address] [id number], [place] [address]- 1765 Aug, [facility] [address] [facility] [id number] [address]- 7015 Aug, [facility] [address] [id number] [address]- 2052 Jul, [facility] [address] [id number], [place] [address]- 8862 Jul, [facility] [address] [id number], [place] [address]- 4479 Jul, [facility] [address] [facility] [id number], [place] [address]- 1868 Jul, [facility] [address] [id number], [place] [address]- 8904 Jul, IMMUNIZATIONS No Known Immunizations SOCIAL HISTORY Never Assessed REASON FOR VISIT Lab (walk-in) PLAN OF CARE VITAL SIGNS MEDICATIONS Unknown Medications RESULTS Name Result Date Reference Range PTH (INTACT) 2017-05-20 PTH, Intact 22 15-65 URINE PROTEIN TO CREATININE RATIO 2017-05-20 Creatinine, Urine 81.8 Not Estab. Protein,Total,Urine 87.5 Not Estab. Protein/Creat Ratio 1070 0-200 UA W/ MICROSCOPY 2017-05-20 Specific [place] 1.016 1.005-1.030 pH 6.0 5.0-7.5 Urine-Color Yellow Yellow Appearance Cloudy Clear WBC Esterase 3+ Negative Protein 2+ Negative/Trace Glucose 1+ Negative Ketones Negative Negative Occult Blood 1+ Negative Bilirubin Negative Negative Urobilinogen,Semi-Qn 0.2 0.2-1.0 Nitrite, Urine Negative Negative Microscopic Examination See below: WBC >30 0 - 5 RBC 3-10 0 - 2 Epithelial Cells (non renal) 0-10 0 - 10 Mucus Threads Present Not Estab. Bacteria Moderate None seen/Few CBC 2017-05-20 WBC 7.9 3.4-10.8 RBC 5.01 3.77-5.28 Hemoglobin 15.4 11.1-15.9 Hematocrit 45.8 34.0-46.6 MCV 91 79-97 MCH 30.7 26.6-33.0 MCHC 33.6 31.5-35.7 RDW 13.7 12.3-15.4 Platelets 220 150-379 Neutrophils 48 Lymphs 35 Monocytes 7 Eos 9 Basos 1 Neutrophils (Absolute) 3.8 1.4-7.0 Lymphs (Absolute) 2.7 0.7-3.1 Monocytes(Absolute) 0.6 0.1-0.9 Eos (Absolute) 0.7 0.0-0.4 Baso (Absolute) 0.1 0.0-0.2 Immature Granulocytes 0 Immature Grans (Abs) 0.0 0.0-0.1 VITAMIN D, 25-H 2017-05-20 Vitamin D, 25-Hydroxy 31.4 30.0-100.0 LIPID PANEL 2017-05-20 Cholesterol, Total 254 100-199 Triglycerides 186 0-149 HDL Cholesterol 65 >39 VLDL Cholesterol Jarod 37 5-40 LDL Cholesterol Calc 152 0-99 RENAL PROFILE 2017-05-20 Glucose, Serum 191 65-99 BUN 31 6-20 Creatinine, Serum 2.17 0.57-1.00 eGFR If NonAfricn Am 29 >59 eGFR If Africn Am 34 >59 BUN/Creatinine Ratio 14 9-23 Sodium, Serum 139 134-144 Potassium, Serum 4.6 3.5-5.2 Chloride, Serum 98 96-106 Carbon Dioxide, Total 24 18-29 Calcium, Serum 9.8 8.7-10.2 Phosphorus, Serum 3.9 2.5-4.5 Albumin, Serum 4.2 3.5-5.5 A1C (IN HOUSE) 2017-05-20 A1C IN HOUSE 7.2 4.3 - 5.6 % Previous A1c 7.0 Lot [id number] Exp date 12/2018 PROCEDURES Procedure Date Ordered Result Body Site VENIPUNCT, ROUTINE* May 20, 2017 ASSAY OF PARATHORMONE May 20, 2017 ASSAY OF PROTEIN, URINE May 20, 2017 RENAL FUNCTION PANEL May 20, 2017 LIPID PANEL May 20, 2017 GLYCATED HEMOGLOBIN TEST May 20, 2017 URINALYSIS, AUTO W/SCOPE May 20, 2017 ASSAY OF URINE CREATININE May 20, 2017 ASSAY OF VITAMIN D May 20, 2017 COMPLETE CBC W/AUTO DIFF WBC May 20, 2017 INSTRUCTIONS MEDICATIONS ADMINISTERED No Known [...]
--- OUTSIDE RECORDS SUMMARY | 2018-08-30 21:21 | XMS REPORT ---
Author Author ALVIN CARMEN [facility] Address [address] [place] [address] Care Team Providers Care Art Objects Repairer Name Role Phone NELLA ALVIN Unavailable PROBLEMS Type Condition ICD9-CM Code [id number] Code Onset Dates Condition Status SNOMED Code Problem Essential hypertension I10 Active 04375144 Problem Addiction to drug F19.20 Active 020915623 Problem Diarrhea, unspecified type R19.7 Active 61482935 Problem Right acute serous otitis media, recurrence not specified H65.01 Active 755469987 Problem Mild episode of recurrent major depressive disorder F33.0 Active 969470733 Problem Encounter for therapeutic drug level monitoring Z51.81 Active 157254590 Problem 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 press feeder (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) drug therapy Z79.899 Active 569330676 Problem Opioid use disorder, severe, in sustained remission F11.21 Active 18266383 Problem Irritable bowel syndrome with constipation K58.1 Active 262314640 Problem Recurrent UTI N39.0 Active 961021484 Problem Gastroparesis K31.84 Active 385124692 Problem Acute bilateral low back pain without sciatica M54.5 Active 170229839 Problem Chronic kidney disease, stage 3 N18.3 Active 461251030 Problem Dysthymia F34.1 Active 12738487 Problem 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
--- OUTSIDE RECORDS SUMMARY | 2018-08-30 21:21 | XMS REPORT ---
Author Author CARLOTTA MIR Organization [facility] Address [address] [place] [address] Care Team Providers Care Pearl Digger Name Role Phone NAMSHAMARCARLOTTA Unavailable PROBLEMS Type Condition ICD9-CM Code ZNF37-MT Code Onset Dates Condition Status SNOMED Code Problem Essential hypertension I10 Active 09520417 Problem Addiction to drug F19.20 Active 764940788 Problem Diarrhea, unspecified type R19.7 Active 45266148 Problem Right acute serous otitis media, recurrence not specified H65.01 Active 849692202 Problem Mild episode of recurrent major depressive disorder F33.0 Active 300522515 Problem Encounter for therapeutic drug level monitoring Z51.81 Active 143901233 Problem Other predatory animal exterminator (current) drug therapy Z79.899 Active 004767332 Problem Opioid use disorder, severe, in sustained remission F11.21 Active 16977747 Problem Irritable bowel syndrome with constipation K58.1 Active 361808830 Problem Recurrent UTI N39.0 Active 366355741 Problem Gastroparesis K31.84 Active 976542980 Problem Acute bilateral low back pain without sciatica M54.5 Active 439558830 Problem Chronic kidney disease, stage 3 N18.3 Active 240000096 Problem Dysthymia F34.1 Active 96754422 Problem 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
--- OUTSIDE RECORDS SUMMARY | 2018-08-30 21:22 | XMS REPORT ---
Author Author YANNICK JOSUE [facility] Address [address] [place] [address] Care Team Providers Care Order Editor Name Role Phone YANNICK JOSUE Unavailable PROBLEMS Type Condition ICD9-CM Code YIS07-PO Code Onset Dates Condition Status SNOMED Code Problem Essential hypertension I10 Active 85848841 Problem Addiction to drug F19.20 Active 931162926 Problem Diarrhea, unspecified type R19.7 Active 03405103 Problem Right acute serous otitis media, recurrence not specified H65.01 Active 706164020 Problem Mild episode of recurrent major depressive disorder F33.0 Active 013410342 Problem Encounter for therapeutic drug level monitoring Z51.81 Active 228598619 Problem Other senior care (current) drug therapy Z79.899 Active 951502461 Problem Opioid use disorder, severe, in sustained remission F11.21 Active 50386761 Problem Irritable bowel syndrome with constipation K58.1 Active 363904942 Problem Recurrent UTI N39.0 Active 390956837 Problem Gastroparesis K31.84 Active 308989886 Problem Acute bilateral low back pain without sciatica M54.5 Active 844564497 Problem Chronic kidney disease, stage 3 N18.3 Active 604207263 Problem Dysthymia F34.1 Active 00291179 Problem 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 Active 53995645 Problem Mixed hyperlipidemia E78.2 Active 286168982 ALLERGIES Substance Reaction Event Type Date Status Penicillin V Potassium rash Drug Allergy Sep, Active Cipro nausea and vomiting Drug Allergy Sep, Active Bactrim DS rash Drug Allergy Sep, Active SOCIAL HISTORY No smoking Hx information available PLAN OF CARE Activity Details Follow Up 4 Weeks Reason:BP Diabetes VITAL SIGNS Height 66 in 2016-09-18 Weight 180.6 lbs 2016-09-18 Temperature 97.4 degrees Fahrenheit 2016-09-18 Heart Rate 94 bpm 2016-09-18 Respiratory Rate 18 2016-09-18 BMI 29.15 kg/m2 2016-09-18 Blood pressure systolic 134 mmHg 2016-09-18 Blood pressure diastolic 94 mmHg 2016-09-18 MEDICATIONS Medication Instructions Dosage Frequency Start Date End Date Duration Status Glucagon Emergency 1 MG as directed Apr, Active Humalog 100 UNIT/ML Subcutaneous pump as per pump inject Units by Subcutaneous route every hour per insulin pump Active Zofran ODT 4 MG Orally 3 times a day, prn take 1 tablets by Oral route every 8 hours PRN Nausea or Vomiting Sep, Active Enalapril Maleate 10 mg Orally twice a day 1 tablet 12h Active Vitamin B12 Active Lovastatin 20 mg Orally Once a day 1 tablet with a meal 24h Mar, 30 day(s) Active Dicyclomine HCl 10 mg Orally 2 times a day prn 1 tablet Sep, Oct, 30 days Active Suboxone 8-2 MG Sublingual Once a day (09/09-09/11) 1.5 film under the tongue and allow to dissolve Aug, Sep, 14 days Active Tylenol 8 Hour Active Vitamin D (Ergocalciferol) 38547 UNIT Orally TWICE WEEKLY X8 WKS-AFTER 8 WEEKS TAKEN OTC VITAMIN D 2000 IU 1 capsule Mar, Active Fish Oil 1000 MG Orally Once a day 2 capsule 24h Active RESULTS Name Result Date Reference Range MICROALBUMIN/CREATININE RATIO, URINE 2016-09-18 Creatinine, Urine 88.1 Not Estab. Microalbumin, Urine 1649.1 Not Estab. Microalb/Creat Ratio 1871.9 0.0-30.0 CMP 2016-09-18 Glucose, Serum 161 65-99 BUN 20 6-20 Creatinine, Serum 1.73 0.57-1.00 eGFR If NonAfricn Am 39 >59 eGFR If Africn Am 44 >59 BUN/Creatinine Ratio 12 8-20 Sodium, Serum 141 134-144 Potassium, Serum 4.9 3.5-5.2 Chloride, Serum 98 96-106 Carbon Dioxide, Total 26 18-29 Calcium, Serum 9.5 8.7-10.2 Protein, Total, Serum 6.1 6.0-8.5 Albumin, Serum 3.6 3.5-5.5 Globulin, Total 2.5 1.5-4.5 A/G Ratio 1.4 1.1-2.5 Bilirubin, Total 0.2 0.0-1.2 Alkaline Phosphatase, S 55 39-117 AST (SGOT) 22 0-40 ALT (SGPT) 15 0-32 MICROALBUMIN, URINE (IN HOUSE) 2016-09-18 MICROALBUMIN HighAbnormal Lot # [id number] Exp date Clarity Cloudy Color Yellow ALB 150mg/L CRE 100mg/dL A:C (IN HOUSE) >300mg/g Control normal Control abnormal Lot # [id number] Exp date Apr 2017 HIV (STATE) 2016-09-18 PROCEDURES Procedure Date Ordered Related Diagnosis Body Site MICROALBUMIN, SEMIQUANT Sep 18, 2016 COMPREHEN METABOLIC PANEL Sep 18, 2016 VENIPUNCT, ROUTINE* Sep 18, 2016 Office Visit, Est Pt., Level 4 Sep 18, 2016 No Charge Sep 18, 2016 MICROALBUMIN, QUANTITATIVE Sep 18, 2016 ASSAY OF URINE CREATININE Sep 18, 2016 IMMUNIZATIONS No Known Immunizations
--- OUTSIDE RECORDS SUMMARY | 2018-08-30 21:23 | XMS REPORT ---
Author Author CARLOTTA MIR [facility] Address [address] [place] [address] Care Team Providers Care Supervisor Spring Up Name Role Phone CARLOTTA MIR Unavailable PROBLEMS Type Condition ICD9-CM Code [id number] Code Onset Dates Condition Status SNOMED Code Problem Essential hypertension I10 Active 38720556 Problem Addiction to drug F19.20 Active 018652056 Problem Diarrhea, unspecified type R19.7 Active 72611936 Problem CHI I (cervical intraepithelial neoplasia I) N87.0 Active 525804884 Problem Right acute serous otitis media, recurrence not specified H65.01 Active 125771502 Problem Irritable bowel syndrome with constipation K58.1 Active 642870842 Problem Encounter for therapeutic drug level monitoring Z51.81 Active 463246473 Problem Mild episode of recurrent major depressive disorder F33.0 Active 682409419 Problem Opioid use disorder, severe, in sustained remission F11.21 Active 20632407 Problem Long-term use of high-risk medication Z79.899 Active 826632731 Problem Recurrent UTI N39.0 Active 862809145 Problem Gastroparesis K31.84 Active 451006264 Problem Acute bilateral low back pain without sciatica M54.5 Active 465662314 Problem 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 Active 59230158 Problem Mixed hyperlipidemia E78.2 Active 091607950 Problem Chronic kidney disease, stage 3 N18.3 Active 927659565 Problem Dysthymia F34.1 Active 27341317 ALLERGIES No Information ENCOUNTERS Encounter Location Date Diagnosis [facility] [address] [facility] [id number] [address] Dec, [facility] [address] [facility] [id number] [place] [address] Oct, [facility] [address] [facility] [id number] [address] Oct, Opioid use disorder, severe, in early remission F11.21 [facility] [address] [address] Oct, [facility] [id number] [place] [address] 63248- 3088 Oct, Opioid use disorder, severe, in early remission F11.21 [facility] [id number] [place] [address] 33832- 3428 Oct, [facility] [id number] [place] [address] 86620- 6190 Oct, [facility] [address] [place] [address] Oct, Opioid use disorder, severe, in sustained remission F11.21 [facility] [id number] [place] [address] 47054- 3087 Sep, [facility] [id number] [place] [address] 04581- 1267 Sep, [facility] [id number] [place] [address] 93554- 3317 Sep, Opioid use disorder, severe, in early remission F11.21 [facility] [id number] [place] [address] 53234- 9171 Aug, Opioid use disorder, severe, in early remission F11.21 [facility] [id number] [place] [address] 81357- 8501 Jul, [facility] [id number] [place] [address] 86699- 8426 Jul, Chronic kidney disease, stage 3 N18.3 ; Dysthymia F34.1 and Opioid use disorder, severe, in sustained remission F11.21 [facility] [address] [place] [address] Jul, Opioid use disorder, severe, in sustained remission F11.21 [facility] [id number] [place] [address] 71175- 2074 Jul, Long-term use of high-risk medication Z79.899 and Chronic kidney disease, stage 3 N18.3 [place] [id number] [place] [address] 46131- 6615 Jul, Opioid use disorder, severe, 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 [place] [facility] [id number] [place] [address] 13425- 5846 Jul, [facility] [id number] [place] [address] 49892- 5090 Jun, [facility] [id number] [place] [address] 43489- 9401 Jun, [facility] [id number] [place] [address] 38133- 1336 Jun, Opioid use disorder, moderate, dependence F11.20 and Opioid use disorder, severe, in early remission F11.21 [place] [facility] [id number] [place] [address] 67638- 7308 Jun, [facility] [id number] [place] [address] 29576- 4262 Jun, Long-term use of high-risk medication Z79.899 [facility] [facility] [id number] [place] [address] 07037- 6009 Jun, CHI I (cervical intraepithelial neoplasia I) N87.0 [place] [facility] [id number] [place] [address] 54801- 5838 May, Opioid use disorder, severe, in early remission F11.21 [facility] [id number] [place] [address] 65376- 8182 18 May, 2017 Chronic kidney disease, stage 3 N18.3 [place] [facility] [id number] [place] [address] 18538- 1088 14 May, 2017 Chronic kidney disease, stage 3 N18.3 [place] [address] [place] [address] May, Opioid use disorder, severe, in sustained remission F11.21 [facility] [id number] [place] [address] 82218- 6905 Apr, LGSIL on Pap smear of cervix R87.612 [facility] [address] [place] [address] Apr, [facility] [address] 66157- 2424 Apr, Opioid use disorder, severe, in early remission F11.21 [facility] [id number] [place] [address] 43867- 7621 Apr, Opioid use disorder, severe, in early remission F11.21 [facility] [id number] [place] [address] 69104- 3235 Apr, Opioid use disorder, severe, in early remission F11.21 [facility] [id number] [place] [address] 92027- 4412 Apr, Opioid use disorder, severe, 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 [facility] [id number] [place] [address] 85151- 3784 14 Apr, 2017 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 [facility] [id number] [place] [address] 49038- 5104 Apr, Opioid use disorder, severe, in early remission F11.21 [facility] [address] [place] [address] Apr, Opioid use disorder, severe, in sustained remission F11.21 [facility] [id number] [place] [address] 92260- 7179 09 Apr, 2017 Opioid use disorder, severe, in early remission F11.21 [facility] [id number] [place] [address] 97840- 0775 02 Apr, 2017 Mild episode of recurrent major depressive disorder F33.0 and Right acute serous otitis media, recurrence not specified H65.01 [place] [address] [address] 9[address] Mar, [facility] [address] [address] 5066 Mar, Opioid use disorder, severe, in early remission F11.21 [facility] [address] [address] 4736 Mar, [facility] [address] [place] [address] Mar, Opioid use disorder, severe, in sustained remission F11.21 [facility] [address] [place] [address] Mar, Opioid use disorder, severe, in sustained remission F11.21 [facility] [id number] [place] [address] 77070- 7693 Mar, Opioid use disorder, severe, 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 [facility] [address] [place] [address] 07463- 3741 Jan, Opioid use disorder, severe, in early remission F11.21 [facility] [address] [place] [address] Jan, Opioid use disorder, severe, in sustained remission F11.21 [facility] [address] [place] [address] Jan, Opioid use disorder, severe, in sustained remission F11.21 [facility] [address] [address] 9030 Jan, Opioid use disorder, severe, in early remission F11.21 [facility] [address] [place] [address] Jan, Opioid use disorder, severe, in sustained remission F11.21 [facility] [id number] [place] [address] 01023- 7187 December, Opioid use disorder, severe, in early remission F11.21 [facility] [address] [place] [address] December, Opioid use disorder, severe, in sustained remission F11.21 [facility] [id number] [place] [address] 40810- 9110 17 Dec, 2016 Routine gynecological examination Z01.419 and Chronic kidney disease, stage 3 N18.3 [facility] [id number] [place] [address] 56470- 8834 December, Chronic kidney disease, stage 3 N18.3 ; 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 ; Gastroparesis K31.84 ; Essential hypertension I10 and Irritable bowel syndrome with constipation K58.1 [facility] [address] [place] [address] December, Opioid use disorder, severe, in sustained remission F11.21 [facility] [id number] [place] [address] 01376- 3575 December, Opioid use disorder, severe, in early remission F11.21 [facility] [address] [place] [address] December, Opioid use disorder, severe, in sustained remission F11.21 [facility] [address] [place] [id number] [place] [address] 91302- 5873 December, Encounter for therapeutic drug level monitoring Z51.81 [facility] [address] [place] [address] December, Opioid use disorder, severe, in sustained remission F11.21 [facility] [address] [place] [address] Dec, Opioid use disorder, severe, in sustained remission F11.21 [facility] [address] [place] [id number] [place] [address] 87725- 3044 Dec, Opioid use disorder, severe, in early remission F11.21 [facility] [address] [place] [id number] [place] [address] 38988- 8101 Dec, [facility] [address] [place] [address] Dec, Opioid use disorder, severe, in sustained remission F11.21 [facility] [address] [place] [id number] [place] [address] 84558- 4020 Dec, Opioid use disorder, severe, in early remission F11.21 [facility] [address] [place] [address] 06 Dec, 2016 Opioid use disorder, severe, in sustained remission F11.21 [facility] [id number] [place] [address] 45822- 2231 Dec, 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 [facility] [id number] [place] [address] 96218- 1803 Dec, Opioid use disorder, severe, in sustained remission F11.21 ; Encounter for therapeutic drug level monitoring Z51.81 and Other jail ( current) drug therapy Z79.899 [facility] [address] [place] [address] Oct, Opioid use disorder, severe, in sustained remission F11.21 [facility] [id number] [place] [address] 66824- 0216 23 Oct, 2016 Opioid use disorder, severe, in early remission F11.21 [facility] [id number] [place] [address] 44792- 8731 15 Oct, 2016 [facility] [address] [place] [address] 15 Oct, 2016 Opioid use disorder, severe, in sustained remission F11.21 [facility] [id number] [place] [address] 04590- 8738 15 Oct, 2016 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 [facility] [id number] [place] [address] 86562- 0895 14 Oct, 2016 Routine gynecological examination Z01.419 [place] [facility] [id number] [place] [address] 23897- 8756 07 Oct, 2016 Opioid use disorder, severe, in early remission F11.21 [facility] [id number] [place] [address] 20263- 2271 06 Oct, 2016 Opioid use disorder, severe, in early remission F11.21 [facility] [address] [address]- 4116 06 Oct, 2016 Opioid use disorder, severe, in early remission F11.21 [facility] [address] [place] [address] 02 Oct, 2016 Opioid use disorder, severe, in sustained remission F11.21 [facility] [address] [place] [address] 37923- 6646 24 Oct, 2016 Opioid use disorder, severe, in early remission F11.21 [facility] [id number] [place] [address] 73336- 2503 23 Oct, 2016 Opioid use disorder, severe, in early remission F11.21 [facility] [address] [place] [address] 22 Oct, 2016 Opioid use disorder, severe, in sustained remission F11.21 [facility] [id number] [place] [address] 98736- 7427 20 Oct, 2016 Opioid use disorder, severe, in sustained remission F11.21 ; Encounter for therapeutic drug level monitoring Z51.81 and Other intermediate designer ( current) drug therapy Z79.899 [facility] [id number] [place] [address] 32658- 5895 16 Oct, 2016 [facility] [address] [place] [address] 14 Oct, 2016 Opioid use disorder, severe, in early remission F11.21 [facility] [address] [place] [address] 10 Oct, 2016 Opioid use disorder, severe, in early remission F11.21 [facility] [id number] [place] [address] 88753- 3280 09 Oct, 2016 Opioid use disorder, severe, in early remission F11.21 [facility] [id number] [place] [address] 56071- 1851 08 Oct, 2016 [facility] [address] [address]- 7004 07 Oct, 2016 [facility] [address] [address]- 8599 Oct, [facility] [address] [place] [address] Oct, Opioid use disorder, severe, in early remission F11.21 [facility] [id number] [place] [address] 29312- 2017 Sep, Opioid use disorder, severe, in early remission F11.21 [facility] [address] [place] [address] Sep, Opioid use disorder, severe, in early remission F11.21 [facility] [id number] [place] [address] 98319- 7230 Sep, Opioid use disorder, severe, in early remission F11.21 ; Other intermediate designer (current) drug therapy Z79.899 and Encounter for therapeutic drug level monitoring Z51.81 [place] [id number] [place] [address] 37279- 8582 Sep, [facility] [id number] [place] [address] 66037- 3757 Sep, [facility] [address] [place] [id number] [place] [address] 61334- 5454 Sep, Opioid use disorder, severe, 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 ; 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 ; Chronic kidney disease, stage 3 N18.3 ; Essential hypertension I10 and Irritable bowel syndrome with constipation K58.1 [facility] [address] [place] [address] Sep, Opioid use disorder, severe, in early remission F11.21 [facility] [address] [place] [address] Sep, Opioid use disorder, severe, 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 [facility] [id number] [place] [address] 58817- 0800 Sep, Opioid use disorder, moderate, dependence F11.20 [facility] [address] [place] [id number] [place] [address] 76083- 9863 Sep, Opioid use disorder, moderate, dependence F11.20 [facility] [address] [place] [address] Sep, Opioid use disorder, severe, 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 [facility] [id number] [place] [address] 73104- 7624 Sep, Opioid use disorder, severe, in early remission F11.21 [facility] [address] [place] [address] Aug, Opioid use disorder, severe, 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 [facility] [id number] [place] [address] 42820- 9026 Aug, Opioid use disorder, moderate, dependence F11.20 [facility] [address] [address] Aug, Bug bite without infection, initial encounter W57.XXXA [facility] [address] [place] [address] 28980- 5571 Aug, Opioid use disorder, moderate, dependence F11.20 [facility] [address] [place] [address] Aug, [facility] [address] [place] [address] 35384- 1834 Aug, Opioid use disorder, severe, 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 ; Other jail (current) drug therapy Z79.899 ; Encounter for therapeutic drug level monitoring Z51.81 and 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 [facility] [address] [place] [address] 15 Aug, 2016 [facility] [address] [place] [address] 60007- 6503 Aug, Opioid use disorder, moderate, dependence F11.20 ; Other jail (current) drug therapy Z79.899 and Encounter for therapeutic drug level monitoring Z51.81 [facility] [address] [place] [id number] [place] [address] 55912- 5899 Aug, [place] [id number] [place] [address] 93637- 5646 Aug, Non-intractable vomiting with nausea, unspecified vomiting type R11.2 [facility] [id number] [place] [address] 84175- 8035 Aug, Opioid use disorder, moderate, dependence F11.20 and Non- intractable vomiting with nausea, unspecified vomiting type R11.2 [facility] [id number] [place] [address] 29744- 4140 Aug, [facility] [address] 44937- 6969 Aug, Opioid use disorder, moderate, dependence F11.20 [facility] [id number] [place] [address] 75467- 0209 Aug, [facility] [address] 86194- 3589 Jul, 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 and Opioid use disorder, moderate, dependence F11.20 [facility] [address] [place] [address] Jul, [facility] [id number] [place] [address] 79490- 9135 Jul, [facility] [id number] [place] [address] 10120- 2689 Jul, [facility] [id number] [place] [address] 49441- 9734 Jul, Addiction to drug F19.20 and Chronic kidney disease, stage 3 N18.3 [facility] [address] [place] [address] 17 Jul, 2016 Counseling on substance use and abuse Z71.89 [facility] [id number] [place] [address] 45218- 4305 Jul, Chronic kidney disease, stage 3 N18.3 [facility] [address] 26535- 7973 Jul, 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 ; Diarrhea, unspecified type R19.7 and Essential hypertension I10 [place] [id number] [place] [address] 84792- 6392 Jul, [place] [id number] [place] [address] 18516- 8862 Jun, [place] [address] 17780- 4455 Jun, [place] [facility] [address] 01180- 4956 Apr, 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 [facility] [id number] [place] [address] 86292- 9709 Apr, Sore throat and laryngitis J06.0 and Non-intractable vomiting with nausea, unspecified vomiting type R11.2 [facility] [id number] [place] [address] 83904- 7310 Apr, [place] [id number] [place] [address] 27399- 3714 Mar, [place] [id number] [place] [address] 80741- 8889 Jan, [facility] [id number] [place] [address] 64318- 2362 Jan, [facility] [id number] [place] [address] 60310- 4228 Jan, [place] [id number] [place] [address] 69149- 5759 December, 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 ; Gastroparesis K31.84 ; Mixed hyperlipidemia E78.2 ; Chronic kidney disease, stage 3 N18.3 ; Dysthymia F34.1 and Acute bilateral low back pain without sciatica M54.5 [place] [address] [place] [address]- 5874 December, [facility] [id number] [place] [address] 40141- 7620 December, [facility] [address] 42233- 0056 Aug, Depression F32.9 and Gastroparesis K31.84 [facility] [address] 08453- 9937 Aug, Gastroparesis K31.84 [facility] [address] 21101- 5912 Jul, Recurrent UTI N39.0 ; Chronic kidney disease, stage 3 N18.3 and 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 [facility] [address] 50919- 2186 Jul, [facility] [address] [id number] Jul, Dental examination Z01.20 and Dental caries K02.9 [facility] [address] 57857- 8395 Jul, [facility] [id number] [place] [id number] Jul, Dysuria R30.0 ; Urinary tract infection N39.0 and Nausea R11.0 [facility] [id number] [place] [address] Jun, Dysuria R30.0 [facility] [id number] [place] [address] Jun, Dysuria R30.0 [facility] [address] [address] Jun, Dysuria R30.0 [facility] [id number] [place] [address] Jun, [id number] [address] Jun, Acute cystitis with hematuria N30.01 [id number] [address] May, [id number] [place] [address] Apr, Diabetes mellitus without mention of complication, type I [ juvenile type], not stated as uncontrolled 250.01 ; Gastroparesis due to DM 250.60 ; Contraception management V25.9 and Renal insufficiency 593.9 [id number] [place] [address] Apr, [id number] [place] [address] Apr, [id number] [place] [address] Mar, [id number] [place] [address] Mar, Hyperlipidemia 272.4 and Hypertensive heart and chronic kidney disease, benign, without heart failure and with chronic kidney disease stage I through stage IV, or unspecified 404.10 [id number] [address] Mar, Hyperlipidemia 272.4 ; Hyponatremia 276.1 ; 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 ; Hypertensive heart and chronic kidney disease, benign, without heart failure and with chronic kidney disease stage I through stage IV, or unspecified 404.10 ; Proteinuria 791.0 and Chronic kidney disease (CKD), stage III (moderate) 585.[id number] [place] [address] Mar, [id number] [place] [address]- 1658 Mar, Elevated blood sugar level 790.29 [place] [id number] [address] Mar, Low grade squamous intraepithelial lesion (LGSIL) on cervical Pap smear 795.03 [facility] [address] [address] 164[address] Mar, Amenorrhea 626.0 [facility] [address] [address] 15 Jan, 2015 Amenorrhea 626.0 ; Routine gynecological examination V72.31 and Screen for STD (sexually transmitted disease) V74.5 [facility] [address] [address] 11 Jan, 2015 Amenorrhea 626.0 [facility] [address] [address] 08 Jan, 2015 Routine gynecological examination V72.31 ; Screen for STD ( sexually transmitted disease) V74.5 ; Pap test, as part of routine gynecological examination V76.2 ; Breast cancer screening V76.10 and Amenorrhea 626.0 [facility] [address] [address] December, [facility] [address] [address] 4585 Dec, [facility] [address] [address] 6847 Dec, [facility] [address] [address] 30 Oct, 2014 [facility] [address] [address] Oct, [facility] [address] [address] Oct, [facility] [address] [address] 72[address] Oct, [facility] [address] [address]229 Oct, [facility] [place] [facility] [address] [id number] [place] [address] 4958 Oct, [facility] [place] [facility] [address] [id number] [place] [address]- 3736 Oct, [facility] [place] [facility] [address] [id number] [place] [address]- 2195 Oct, [facility] [place] [facility] [address] [id number] [place] [address]- 5123 Oct, [facility] [place] [facility] [address] [id number] [place] [address]- 7558 Oct, [facility] [place] [facility] [address] [id number] [place] [address]- 0109 Oct, [facility] [place] [facility] [address] [id number] [place] [address]- 7419 Sep, [facility] [place] [facility] [address] [id number] [place] [address]- 7090 Sep, [facility] [place] [facility] [address] [id number] [place] [address]- 7347 Sep, [facility] [place] [facility] [address] [id number] [place] [address]- 6244 Sep, [facility] [place] [facility] [address] [id number] [place] [address]- 9808 Sep, [facility] [place] [facility] [address] [id number] [place] [address] Sep, [facility] [place] [facility] [address] [id number] [address]- 5200 Sep, [facility] [place] [facility] [address] [id number] [place] [address]- 0040 Sep, [facility] [place] [facility] [address] [id number] [place] [address] 0698 Sep, [facility] [place] [facility] [address] [id number] [place] [address]- 0137 Sep, [facility] [place] [facility] [address] [id number] [place] [address]- 4557 Sep, [facility] [place] [facility] [address] [id number] [place] [address]- 6670 Sep, [facility] [place] [facility] [address] [id number] [place] [address]- 5087 Sep, [facility] [place] [facility] [address] [id number] [place] [address]- 6504 Sep, [facility] [place] [facility] [address] [id number] [place] [address]- 9657 Sep, [facility] [place] [facility] [address] [id number] [place] [address]- 4315 Sep, [facility] [place] [facility] [address] [id number] [place] [address]- 8228 Sep, [facility] [place] [facility] [address] [id number] [place] [address]- 2837 Sep, [facility] [place] [facility] [address] [id number] [place] [address]- 0183 Sep, [facility] [place] [facility] [address] [id number] [place] [address]- 8590 Sep, [facility] [place] [facility] [address] [id number] [place] [address]- 1182 Aug, [facility] [place] [facility] [address] [id number] [place] [address]- 0392 Aug, [facility] [place] [facility] [address] [id number] [place] [address]- 3264 Aug, [facility] [place] [facility] [address] [id number] [place] [address]- 1136 Aug, [facility] [place] [facility] [address] [id number] [place] [address]- [address] 08 Aug, 2014 [facility] [place] [facility] [address] [id number] [place] [address]- 4277 Aug, [facility] [place] [facility] [address] [id number] [place] [address] Aug, [facility] [place] [facility] [address] [id number] [place] [address] Aug, [facility] [place] [facility] [address] [id number] [place] [address] Aug, [facility] [place] [facility] [address] [id number] [place] [address]- 4601 Aug, [facility] [place] [facility] [address] [id number] [place] [address]- 6374 Aug, [facility] [place] [facility] [address] [id number] [place] [address]- 0292 Aug, [facility] [place] [facility] [address] [id number] [place] [address]- 4924 Jul, [facility] [place] [facility] [address] [id number] [place] [address]- 6543 Jul, [facility] [place] [facility] [address] [id number] [place] [address]- 3375 Jul, [facility] [place] [facility] [address] [id number] [place] [address]- 0412 Jul, [facility] [place] [facility] [address] [id number] [place] [address]- 6140 Jul, [facility] [place] [facility] [address] [id number] [place] [address]- 3529 Jul, [facility] [place] [facility] [address] [id number] [address]- 9931 Jul, [facility] [place] [facility] [address] [id number] [address]- 5205 Jul, [facility] [place] [facility] [address] [id number] [place] [address]- 3015 Jul, [facility] [place] [facility] [address] [id number] [place] [address]- 6773 Jul, [facility] [place] [facility] [address] [id number] [place] [address]- 3255 Jun, [facility] [place] [facility] [address] [id number] [place] [address]- 0953 Jun, [facility] [place] [facility] [address] [id number] [place] [address]- 7897 Jun, [facility] [place] [facility] [address] [id number] [place] [address]- 3444 Jun, [facility] [place] [facility] [address] [id number] [place] [address]- 1524 Jun, [facility] [place] [facility] [address] [id number] [place] [address]- 7333 Jun, [facility] [place] [facility] [address] [id number] [place] [address]- 5099 15 Jun, 2014 [facility] [place] [facility] [address] [id number] [place] [address]- 6883 15 Jun, 2014 [facility] [place] [facility] [address] [id number] [place] [address]- 6612 22 May, 2014 [facility] [place] [facility] [address] [id number] [place] [address]- 2542 22 May, 2013 [facility] [place] [facility] [address] [id number] [place] [address]- 9853 18 May, 2013 [facility] [place] [facility] [address] [id number] [place] [address]- 8424 18 May, 2013 [facility] [place] [facility] [address] [id number] [place] [address]- 8388 09 Sep, 2013 [facility] [place] [facility] [address] [id number] [place] [address]- 7542 May, [facility] [place] [facility] [address] [id number] [place] [address]- 9255 May, [facility] [place] [facility] [address] [id number] [place] 4610 May, [facility] [place] [facility] [address] [id number] [place] [address]- 1118 Apr, [facility] [place] [facility] [address] [id number] [place] [address]- 9804 Apr, [facility] [place] [facility] [address] [id number] [place] [address]- 3861 Apr, [facility] [place] [facility] [address] [id number] [place] [address]- 4232 Apr, [facility] [place] [facility] [address] [id number] [place] [address]- 6905 Mar, [facility] [place] [facility] [address] [id number] [place] [address]- 3997 Mar, [facility] [place] [facility] [address] [id number] [place] [address]- 0134 Mar, [facility] [place] [facility] [address] [id number] [place] [address]- 3633 Mar, [facility] [place] [facility] [address] [id number] [place] [address]- 1694 Mar, [facility] [place] [facility] [address] [id number] [place] [address]- 5465 Mar, [facility] [place] [facility] [address] [id number] [place] [address]- 3164 Jan, [facility] [place] [facility] [address] [id number] [place] [address]- 4235 Jan, [facility] [place] [facility] [address] [id number] [place] [address]- 1979 Jan, [facility] [place] [facility] [address] [id number] [place] [address]- 0989 Jan, [facility] [place] [facility] [address] [id number] [place] [address]- 3804 Jan, [facility] [place] [facility] [address] [id number] [place] [address]- 5447 Jan, [facility] [place] [facility] [address] [id number] [place] [address]- 2756 Jan, [facility] [place] [facility] [address] [id number] [place] [address]- 9195 Jan, [facility] [place] [facility] [address] [id number] [place] [address]- 8453 Jan, [facility] [place] [facility] [address] [id number] [place] [address]- 8511 Jan, [facility] [place] [facility] [address] [id number] [place] [address]- 9082 Jan, [facility] [place] [facility] [address] [id number] [place] [address]- 5822 Jan, [facility] [place] [facility] [address] [id number] [place] [address]- 5692 December, [facility] [place] [facility] [address] [id number] [place] [address]- 4944 December, [facility] [place] [facility] [address] [id number] [place] [address]- 8242 December, [facility] [place] [facility] [address] [id number] [place] [address]- 7443 December, [facility] [place] [facility] [address] [id number] [place] [address]- 4006 Dec, [facility] [place] [facility] [address] [id number] [place] [address]- 7315 Dec, [facility] [place] [facility] [address] [id number] [place] [address]- 4869 Dec, [facility] [place] [facility] [address] [id number] [place] [address]- 6368 Dec, [facility] [place] [facility] [address] [id number] [place] [address]- 5182 Dec, [facility] [place] [facility] [address] [id number] [place] 9959 Dec, [facility] [place] [facility] [address] [id number] [place] [address]- 8189 Dec, [facility] [place] [facility] [address] [id number] [place] [address]- 1572 Dec, [facility] [place] [facility] [address] [id number] [place] [address]- 1249 Dec, [facility] [place] [facility] [address] [id number] [place] [address]- 6280 Dec, [facility] [place] [facility] [address] [id number] [place] [address]- 5874 Dec, [facility] [place] [facility] [address] [id number] [place] [address]- 5589 Dec, [facility] [place] [facility] [address] [id number] [place] [address]- 9069 Dec, [facility] [place] [facility] [address] [id number] [place] [address]- 0791 Dec, [facility] [place] [facility] [address] [id number] [place] [address]- 6078 Oct, [facility] [place] [facility] [address] [id number] [place] [address]- 7220 Oct, [facility] [place] [facility] [address] [id number] [place] [address]- 4488 Oct, [facility] [place] [facility] [address] [id number] [place] [address]- 1611 Oct, [facility] [place] [facility] [address] [id number] [place] [address]- 9910 Oct, [facility] [place] [facility] [address] [id number] [place] [address]- 8988 Oct, [facility] [place] [facility] [address] [id number] [place] [id number] Oct, [facility] [place] [facility] [address] [id number] [place] [address]- 5060 Oct, [facility] [place] [facility] [address] [id number] [place] [address]- 9697 Oct, [facility] [place] [facility] [address] [id number] [place] [address]- 0794 Oct, [facility] [place] [facility] [address] [id number] [place] [address]- 7799 Sep, [facility] [place] [facility] [address] [id number] [place] [address]- 9440 Sep, [facility] [place] [facility] [address] [id number] [place] [address]- 6046 Sep, [facility] [place] [facility] [address] [id number] [place] [address]- 9953 Sep, [facility] [place] [facility] [address] [id number] [place] [address]- 7875 Sep, [facility] [place] [facility] [address] [id number] [place] [address]- 5832 Sep, [facility] [place] [facility] [address] [id number] [place] [address]- 7532 Aug, [facility] [place] [facility] [address] [id number] [place] [address]- 7658 Aug, [facility] [place] [facility] [address] [id number] [place] [address]- 1746 Jul, [facility] [place] [facility] [address] [id number] [place] [address]- 7872 Jul, [facility] [place] [facility] [address] [id number] [place] [address]- 7847 Jul, [facility] [address] [facility] [id number] [place] [address]- 4797 Jul, [facility] [address] [facility] [id number] [place] [address]- 9434 Jul, IMMUNIZATIONS No Known Immunizations SOCIAL HISTORY Never Assessed REASON FOR VISIT SUBAB f/u PLAN OF CARE Activity Details Follow Up 2 Weeks Reason: VITAL SIGNS MEDICATIONS Unknown Medications RESULTS No Results PROCEDURES Procedure Date Ordered Result Body Site Psychotherapy, patient &/family, 60 minutes, established patient November 14, 2016 INSTRUCTIONS MEDICATIONS ADMINISTERED No Known Medications MEDICAL (GENERAL) HISTORY Type Description Date Medical History Type 1 Diabetes mellitus Medical History hx of hypertension Medical History gastroparesis Medical History hx of renal insufficiency 09/2014 Medical History Unspecified renal failure Medical History Gastroparesis due to DM Surgical History oral surgery at age 16 Hospitalization History Gastroperisis 2011
--- OUTSIDE RECORDS SUMMARY | 2018-08-30 21:24 | XMS REPORT ---
Author Author NOEMY MORGAN Organization [facility] Address [address] [place] [address] Care Team Providers Care Airport Screener Name Role Phone NOEMY MORGAN Unavailable PROBLEMS Type Condition ICD9-CM Code ZRY05-RJ Code Onset Dates Condition Status SNOMED Code Problem Essential hypertension I10 Active 07907951 Problem Addiction to drug F19.20 Active 149614599 Problem Diarrhea, unspecified type R19.7 Active 14584078 Problem CHI I (cervical intraepithelial neoplasia I) N87.0 Active 393257085 Problem Right acute serous otitis media, recurrence not specified H65.01 Active 740084415 Problem Irritable bowel syndrome with constipation K58.1 Active 649411738 Problem Encounter for therapeutic drug level monitoring Z51.81 Active 239328563 Problem Mild episode of recurrent major depressive disorder F33.0 Active 740377604 Problem Opioid use disorder, severe, in sustained remission F11.21 Active 40644465 Problem Long-term use of high-risk medication Z79.899 Active 440393426 Problem Recurrent UTI N39.0 Active 419382952 Problem Gastroparesis K31.84 Active 250232805 Problem Acute bilateral low back pain without sciatica M54.5 Active 876318491 Problem 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 Active 84104598 Problem Mixed hyperlipidemia E78.2 Active 378761192 Problem Chronic kidney disease, stage 3 N18.3 Active 117765334 Problem Dysthymia F34.1 Active 94288317 ALLERGIES No Information ENCOUNTERS Encounter Location Date Diagnosis [facility] [id number], [place] [address] Dec, [facility] [id number], [place] [address] Oct, Opioid use disorder, severe, in early remission F11.21 [facility] [id number], [place] [address] Oct, [facility] [id number] [place] [address] 42026- 1022 Oct, Opioid use disorder, severe, in early remission F11.21 [facility] [address] [place] [address] 75963- 2946 Oct, [facility] [id number] [place] [address] 56168- 4235 Oct, [facility] [address] [place] [address] Oct, Opioid use disorder, severe, in sustained remission F11.21 [facility] [id number] [place] [address] 05687- 8790 Sep, [facility] [id number] [place] [address] 51779- 5788 Sep, [facility] [id number] [place] [address] 45840- 1294 Sep, Opioid use disorder, severe, in early remission F11.21 [facility] [id number] [place] [address] 50602- 7661 Aug, Opioid use disorder, severe, in early remission F11.21 [facility] [address] [place] [address] 12013- 7090 Jul, [facility] [id number] [place] [address] 14573- 7960 Jul, Chronic kidney disease, stage 3 N18.3 ; Dysthymia F34.1 and Opioid use disorder, severe, in sustained remission F11.21 [facility] [address] [place] [address] Jul, Opioid use disorder, severe, in sustained remission F11.21 [facility] [address], [place] [address] Jul, Long-term use of high-risk medication Z79.899 and Chronic kidney disease, stage 3 N18.3 [facility] [address] [place] [address] 99648- 9516 Jul, Opioid use disorder, severe, in early remission F11.21 [facility] [id number] [place] [address] 90490- 3656 Jul, [facility] [id number] [place] [address] 26854- 3465 Jun, [facility] [id number] [place] [address] 52701- 3979 Jun, [place] [id number] [place] [address] 28306- 8920 Jun, Opioid use disorder, moderate, dependence F11.20 and Opioid use disorder, severe, in early remission F11.21 [place] [id number] [place] [address] 57563- 8900 Jun, [place] [id number] [place] [address] 57328- 2084 Jun, Long-term use of high-risk medication Z79.899 [place] [id number] [place] [address] 82639- 7492 Jun, CHI I (cervical intraepithelial neoplasia I) N87.0 [facility] [id number] [place] [address] 79376- 4807 22 May, 2017 Opioid use disorder, severe, in early remission F11.21 [facility] [id number] [place] [address] 76572- 6697 18 May, 2017 Chronic kidney disease, stage 3 N18.3 [place] [facility] [id number] [place] [address] 49841- 5306 14 May, 2017 Chronic kidney disease, stage 3 N18.3 [facility] [address] [place] [address] 05 May, 2017 Opioid use disorder, severe, in sustained remission F11.21 [place] [address] [place] [address] 15614- 0608 Apr, LGSIL on Pap smear of cervix R87.612 [facility] [address] [place] [address] Apr, [facility] [id number] [place] [address] 26810- 9309 Apr, Opioid use disorder, severe, in early remission F11.21 [facility] [id number] [place] [address] 99718- 8158 Apr, Opioid use disorder, severe, in early remission F11.21 [facility] [id number] [place] [address] 59485- 2548 Apr, Opioid use disorder, severe, in early remission F11.21 [facility] [id number] [place] [address] 43292- 0944 Apr, Opioid use disorder, severe, in early remission F11.21 [facility] [id number] [place] [address] 21324- 1442 14 Apr, 2017 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 [facility] [id number] [place] [address] 59050- 8496 Apr, Opioid use disorder, severe, in early remission F11.21 [facility] [address] [place] [address] Apr, Opioid use disorder, severe, in sustained remission F11.21 [facility] [id number] [place] [address] 40759- 6241 09 Apr, 2017 Opioid use disorder, severe, in early remission F11.21 [facility] [id number] [place] [address] 37596- 6167 Apr, Mild episode of recurrent major depressive disorder F33.0 and Right acute serous otitis media, recurrence not specified H65.01 [facility] [id number] [place] [address] 46384- 6292 Mar, [place] [address], [place] [address] 1531 Mar, Opioid use disorder, severe, in early remission F11.21 [facility] [id number] [place] [address] 31910- 6638 Mar, [facility] [address] [place] [address] Mar, Opioid use disorder, severe, in sustained remission F11.21 [facility] [address] [place] [address] Mar, Opioid use disorder, severe, in sustained remission F11.21 [facility] [id number] [place] [address] 13161- 8335 Mar, Opioid use disorder, severe, in early remission F11.21 [facility] [id number] [place] [address] 96694- 4843 Jan, Opioid use disorder, severe, in early remission F11.21 [facility] [address] [place] [address] Jan, Opioid use disorder, severe, in sustained remission F11.21 [facility] [address] [place] [address] Jan, Opioid use disorder, severe, in sustained remission F11.21 [facility] [address] [place] [address] 41398- 0266 Jan, Opioid use disorder, severe, in early remission F11.21 [facility] [address] [place] [address] Jan, Opioid use disorder, severe, in sustained remission F11.21 [facility] [address] [place] [address] 37112- 0753 December, Opioid use disorder, severe, in early remission F11.21 [facility] [address] [place] [address] December, Opioid use disorder, severe, in sustained remission F11.21 [facility] [address] [place] [address] 68068- 8214 December, Routine gynecological examination Z01.419 and Chronic kidney disease, stage 3 N18.3 [facility] [address] [place] [id number] [place] [address] 36353- 0791 December, Chronic kidney disease, stage 3 N18.3 ; 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 ; Gastroparesis K31.84 ; Essential hypertension I10 and Irritable bowel syndrome with constipation K58.1 [facility] [address] [place] [address] December, Opioid use disorder, severe, in sustained remission F11.21 [place] [id number] [place] [address] 75318- 9008 December, Opioid use disorder, severe, in early remission F11.21 [facility] [address] [place] [address] December, Opioid use disorder, severe, in sustained remission F11.21 [place] [id number] [place] [address] 56273- 5164 December, Encounter for therapeutic drug level monitoring Z51.81 [facility] [address] [place] [address] December, Opioid use disorder, severe, in sustained remission F11.21 [facility] [address] [place] [address] Dec, Opioid use disorder, severe, in sustained remission F11.21 [place] [id number] [place] [address] 89868- 2686 Dec, Opioid use disorder, severe, in early remission F11.21 [facility] [address] [place] [id number] [place] [address] 75287- 6224 Dec, [facility] [address] [place] [address] Dec, Opioid use disorder, severe, in sustained remission F11.21 [facility] [address] [place] [id number] [place] [address] 37749- 6432 Dec, Opioid use disorder, severe, in early remission F11.21 [facility] [address] [place] [address] Dec, Opioid use disorder, severe, in sustained remission F11.21 [facility] [id number] [place] [address] 44605- 1292 Dec, 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 [facility] [id number] [place] [address] 13399- 1376 Dec, Opioid use disorder, severe, in sustained remission F11.21 ; Encounter for therapeutic drug level monitoring Z51.81 and Other algologist ( current) drug therapy Z79.899 [facility] [address] [place] [address] 31 Oct, 2016 Opioid use disorder, severe, in sustained remission F11.21 [place] [address] 26078- 7758 23 Oct, 2016 Opioid use disorder, severe, in early remission F11.21 [place] [address] 03169- 9338 15 Oct, 2016 [facility] [address] [place] [address] 15 Oct, 2016 Opioid use disorder, severe, in sustained remission F11.21 [place] [address] 77330- 0260 15 Oct, 2016 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 [place] [place] [id number] [place] [address] 48822- 6377 14 Oct, 2016 Routine gynecological examination Z01.419 [place] [address] 24009- 5929 07 Oct, 2016 Opioid use disorder, severe, in early remission F11.21 [place] [address] 19879- 6386 06 Oct, 2016 Opioid use disorder, severe, in early remission F11.21 [place] [address] 48676- 8523 Oct, Opioid use disorder, severe, in early remission F11.21 [facility] [address] [place] [address] Oct, Opioid use disorder, severe, in sustained remission F11.21 [facility] [id number] [place] [address] 97287- 7146 24 Oct, 2016 Opioid use disorder, severe, in early remission F11.21 [facility] [id number] [place] [address] 19630- 5331 Oct, Opioid use disorder, severe, in early remission F11.21 [facility] [address] [place] [address] Oct, Opioid use disorder, severe, in sustained remission F11.21 [facility] [id number] [place] [address] 66596- 4064 Oct, Opioid use disorder, severe, in sustained remission F11.21 ; Encounter for therapeutic drug level monitoring Z51.81 and Other mcfp ( current) drug therapy Z79.899 [facility] [id number] [place] [address] 81126- 0411 16 Oct, 2016 [facility] [address] [place] [address] 14 Oct, 2016 Opioid use disorder, severe, in early remission F11.21 [facility] [address] [place] [address] 10 Oct, 2016 Opioid use disorder, severe, in early remission F11.21 [facility] [id number] [place] [address] 32100- 3525 09 Oct, 2016 Opioid use disorder, severe, in early remission F11.21 [facility] [address] [place] [address] 08022- 2487 08 Oct, 2016 [facility] [id number] [place] [address] 00089- 8813 07 Oct, 2016 [facility] [id number] [place] [address] 32699- 8680 Oct, [facility] [address] [place] [address] Oct, Opioid use disorder, severe, in early remission F11.21 [facility] [id number] [place] [address] 44765- 6441 Sep, Opioid use disorder, severe, in early remission F11.21 [facility] [address] [place] [address] Sep, Opioid use disorder, severe, in early remission F11.21 [facility] [address] 89575- 5832 Sep, Opioid use disorder, severe, in early remission F11.21 ; Other algologist (current) drug therapy Z79.899 and Encounter for therapeutic drug level monitoring Z51.[address] 87821- 3305 Sep, [facility] [address] [place] [address] 66471- 2015 Sep, [facility] [address] [place] [address] 69878- 8973 Sep, Opioid use disorder, severe, 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 ; 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 ; Chronic kidney disease, stage 3 N18.3 ; Essential hypertension I10 and Irritable bowel syndrome with constipation K58.1 [facility] [address] [place] [address] Sep, Opioid use disorder, severe, in early remission F11.21 [facility] [address] [place] [address] Sep, Opioid use disorder, severe, 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 [facility] [address] [place] [id number] [place] [address] 65757- 0740 Sep, Opioid use disorder, moderate, dependence F11.20 [facility] [address] [place] [id number] [place] [address] 30093- 8488 05 Sep, 2016 Opioid use disorder, moderate, dependence F11.20 [facility] [address] [place] [address] Sep, Opioid use disorder, severe, 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 [facility] [address] 74902- 8505 Sep, Opioid use disorder, severe, 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 [facility] [address] [place] [address] Aug, Opioid use disorder, severe, in early remission F11.21 [facility] [address] 02477- 7376 Aug, Opioid use disorder, moderate, dependence F11.20 [facility] [address] [place] [address] 13030 -1671 Aug, Bug bite without infection, initial encounter W57.XXXA [address] 01506- 9858 Aug, Opioid use disorder, moderate, dependence F11.20 [facility] [address] [place] [address] Aug, [address] 59908- 9009 Aug, Opioid use disorder, severe, in early remission F11.21 ; Other algologist (current) drug therapy Z79.899 ; Encounter for therapeutic drug level monitoring Z51.81 and 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 [facility] [address] [place] [address] 15 Aug, 2016 [facility] [address] 12082- 1906 15 Aug, 2016 Opioid use disorder, moderate, dependence F11.20 ; Other mcfp (current) drug therapy Z79.899 and Encounter for therapeutic drug level monitoring Z51.81 [facility] [address] 50139- 5807 13 Aug, [address] 18087- 0788 09 Aug, 2016 Non-intractable vomiting with nausea, unspecified vomiting type R11.2 [facility] [id number] [place] [address] 57522- 2107 Aug, Opioid use disorder, moderate, dependence F11.20 and Non- intractable vomiting with nausea, unspecified vomiting type R11.2 [facility] [id number] [place] [address] 68961- 2832 Aug, [facility] [address] 07474- 1950 Aug, Opioid use disorder, moderate, dependence F11.20 [facility] [address] 51416- 3270 Aug, [facility] [id number] [place] [address] 85367- 6136 Jul, 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 and Opioid use disorder, moderate, dependence F11.20 [facility] [address] [place] [address] Jul, [facility] [id number] [place] [address] 94534- 5015 Jul, [facility] [id number] [place] [address] 36102- 1909 Jul, [facility] [id number] [place] [address] 72830- 2584 Jul, Addiction to drug F19.20 and Chronic kidney disease, stage 3 N18.3 [facility] [address] [place] [address] Jul, Counseling on substance use and abuse Z71.89 [facility] [id number] [place] [address] 94682- 4122 Jul, Chronic kidney disease, stage 3 N18.3 [facility] [id number] [place] [address] 83225- 4775 Jul, 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 ; Diarrhea, unspecified type R19.7 and Essential hypertension I10 [facility] [id number] [place] [address] 78048- 7280 Jul, [facility] [id number] [place] [address] 56735- 8318 Jun, [facility] [id number] [place] [address] 38118- 6617 Jun, [facility] [address] 29288- 9584 Apr, 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 [facility] [id number] [place] [address] 25569- 3089 Apr, Sore throat and laryngitis J06.0 and Non-intractable vomiting with nausea, unspecified vomiting type R11.2 [facility] [id number] [place] [address] 15066- 0127 Apr, [facility] [id number] [place] [address] 20240- 2686 Mar, [facility] [id number] [place] [address] 78967- 9946 Jan, [facility] [id number] [place] [address] 53663- 2969 Jan, [facility] [id number] [place] [address] 76955- 9290 Jan, [facility] [id number] [place] [address] 30381- 2178 December, 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 ; Gastroparesis K31.84 ; Mixed hyperlipidemia E78.2 ; Chronic kidney disease, stage 3 N18.3 ; Dysthymia F34.1 and Acute bilateral low back pain without sciatica M54.5 [facility] [id number] [place] [address] 74213- 6314 December, [facility] [address] [place] [address] 6172 December, [facility] [address] 50242- 7314 Aug, Depression F32.9 and Gastroparesis K31.84 [facility] [address] 11248- 8196 Aug, Gastroparesis K31.84 [facility] [address] 69769- 3979 Jul, Recurrent UTI N39.0 ; Chronic kidney disease, stage 3 N18.3 and 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 [place] [address] 25232- 8545 Jul, [facility] [address] [id number] Jul, Dental examination Z01.20 and Dental caries K02.9 [facility] [address] 00712- 9287 Jul, [facility] [address] 78396 -8048 Jul, Dysuria R30.0 ; Urinary tract infection N39.0 and Nausea R11.0 [facility] [id number] [place] [address] 37978- 0860 Jun, Dysuria R30.0 [facility] [address] 50620- 9054 Jun, Dysuria R30.0 [facility] [address] 86025- 2165 Jun, Dysuria R30.0 [facility] [address] 09125- 8609 19 Jun, 2015 [facility] [address] 78693- 3461 Jun, Acute cystitis with hematuria N30.01 [address] [address]- 7232 May, [place] [id number] [place] [address] 11447- 6173 Apr, Diabetes mellitus without mention of complication, type I [ juvenile type], not stated as uncontrolled 250.01 ; Gastroparesis due to DM 250.60 ; Contraception management V25.9 and Renal insufficiency 593.9 [place] [id number] [place] [address] 34603- 8414 Apr, [place] [id number] [place] [address] 93749- 7927 Apr, [place] [id number] [place] [address] 56896- 1380 Mar, [place] [id number] [place] [address] 42251- 1490 Mar, Hyperlipidemia 272.4 and Hypertensive heart and chronic kidney disease, benign, without heart failure and with chronic kidney disease stage I through stage IV, or unspecified 404.10 [address] [place] [address] 58047- 5061 Mar, Hyperlipidemia 272.4 ; Hyponatremia 276.1 ; 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 ; Hypertensive heart and chronic kidney disease, benign, without heart failure and with chronic kidney disease stage I through stage IV, or unspecified 404.10 ; Proteinuria 791.0 and Chronic kidney disease (CKD), stage III (moderate) 585.3 [address] [address]- 7987 Mar, [place] [id number] [place] [address] 39153- 0517 Mar, Elevated blood sugar level 790.29 [address] [place] [address] 47308- 9772 Mar, Low grade squamous intraepithelial lesion (LGSIL) on cervical Pap smear 795.03 [facility] [id number] [id number] Mar, Amenorrhea 626.0 [facility] [id number] [address] Jan, Amenorrhea 626.0 ; Routine gynecological examination V72.31 and Screen for STD (sexually transmitted disease) V74.5 [facility] [id number], [place] [address] Jan, Amenorrhea 626.0 [facility] [id number] [place] [address] 08 Jan, 2015 Routine gynecological examination V72.31 ; Screen for STD ( sexually transmitted disease) V74.5 ; Pap test, as part of routine gynecological examination V76.2 ; Breast cancer screening V76.10 and Amenorrhea 626.0 [facility] [address], [place] [address] December, [facility] [address], [place] [address] Dec, [facility] [address], [place] [address] Dec, [facility] [address] [address] [address]101 Oct, [facility] [address] [id number] [address] Oct, [facility] [address] [address] [address] Oct, [facility] [address] [address] Oct, [facility] [address] [address] Oct, [facility] [address], [place] [address] Oct, [facility] [place] [facility] [address] [id number] [place] [address] Oct, [facility] [place] [facility] [address] [id number] [place] [address] 4[address] Oct, [facility] [place] [facility] [address] [id number] [place] [address] 6413 Oct, [facility] [place] [facility] [address] [id number] [place] [address]- 4410 Oct, [facility] [place] [facility] [address] [id number] [place] [address] 0862 Oct, [facility] [place] [facility] [address] [id number] [place] [address]- 4394 Sep, [facility] [place] [facility] [address] [id number] [place] [address]- 9954 Sep, [facility] [place] [facility] [address] [id number] [place] [address]- 5357 Sep, [facility] [place] [facility] [address] [id number] [place] [address]- 0076 Sep, [facility] [place] [facility] [address] [id number] [place] [address]- 7342 Sep, [facility] [place] [facility] [address] [id number] [place] [address]- 2265 Sep, [facility] [place] [facility] [address] [id number], [place] [address] Sep, [facility] [place] [facility] [address] [id number] [place] [address]- 1068 Sep, [facility] [place] [facility] [address] [id number] [place] [address]- 6484 Sep, [facility] [place] [facility] [address] [id number], [place] [address] Sep, [facility] [place] [facility] [address] [id number] [place] [address]- 1150 Sep, [facility] [place] [facility] [address] [id number] [place] [address]- 2046 Sep, [facility] [place] [facility] [address] [id number] [place] [address]- 5652 Sep, [facility] [place] [facility] [address] [id number] [place] [address]- 9221 Sep, [facility] [place] [facility] [address] [id number] [place] [address]- 7475 Sep, [facility] [place] [facility] [address] [id number] [place] [address]- 0782 Sep, [facility] [place] [facility] [address] [id number] [place] [address]- 7897 Sep, [facility] [place] [facility] [address] [id number] [place] [address]- 6351 Sep, [facility] [place] [facility] [address] [id number] [place] [address]- 2003 Sep, [facility] [place] [facility] [address] [id number] [place] [address]- 48[address] Sep, [facility] [place] [facility] [address] [id number] [place] [address] 56[address] Aug, [facility] [place] [facility] [address] [id number] [place] [address]- 4158 Aug, [facility] [place] [facility] [address] [id number] [place] [address]- 7320 Aug, [facility] [place] [facility] [address] [id number] [place] [address]- 2296 Aug, [facility] [place] [facility] [address] [id number] [place] [address]- 0142 Aug, [facility] [place] [facility] [address] [id number] [place] [address]- 5462 07 Aug, 2014 [facility] [place] [facility] [address] [id number] [place] [address]- 3320 Aug, [facility] [place] [facility] [address] [id number] [place] [address] Aug, [facility] [place] [facility] [address] [facility] [id number] [place] [address] Aug, [facility] [place] [facility] [address] [id number] [place] [address] Aug, [facility] [place] [facility] [address] [id number] [place] [address]- 7610 Aug, [facility] [place] [facility] [address] [id number] [place] [address]- 5815 Aug, [facility] [place] [facility] [address] [id number] [place] [address]- 8203 Jul, [facility] [place] [facility] [address] [id number] [place] [address]- 3549 Jul, [facility] [place] [facility] [address] [id number] [place] [address]- 1776 Jul, [facility] [place] [facility] [address] [id number] [place] [address]- 6456 Jul, [facility] [place] [facility] [address] [id number], [place] [address]- 9514 Jul, [facility] [place] [facility] [address] [id number], [place] [address]- 8[address] Jul, [facility] [place] [facility] [address] [id number] [place] [address]- 0020 Jul, [facility] [place] [facility] [address] [id number], [place] [address]- 0955 Jul, [facility] [place] [facility] [address] [id number], [place] [address]- 4460 Jul, [facility] [place] [facility] [address] [id number] [place] [address]- 3611 04 Jul, 2014 [facility] [place] [facility] [address] [id number] [place] [address]- 4178 Jun, [facility] [place] [facility] [address] [id number] [place] [address]- 2431 Jun, [facility] [place] [facility] [address] [id number] [place] [address]- 2720 30 Jun, 2014 [facility] [place] [facility] [address] [id number] [place] [address]- 9700 Jun, [facility] [place] [facility] [address] [id number] [place] [address]- 4046 Jun, [facility] [place] [facility] [address] [id number] [place] [address]- 7393 Jun, [facility] [place] [facility] [address] [id number] [place] [address]- 6977 Jun, [facility] [place] [facility] [address] [id number] [place] [address]- 6097 15 Jun, 2014 [facility] [place] [facility] [address] [id number] [place] [address]- 3527 22 May, 2013 [facility] [place] [facility] [address] [id number] [place] [address]- 4910 22 May, 2013 [facility] [place] [facility] [address] [id number] [place] [address]- 2547 18 Sep, 2013 [facility] [place] [facility] [address] [id number] [place] [address]- 9083 18 Sep, 2013 [facility] [place] [facility] [address] [id number] [place] [address]- 3074 09 Sep, 2013 [facility] [place] [facility] [address] [id number] [place] [address]- 8639 08 Sep, 2013 [facility] [place] [facility] [address] [id number] [place] [address]- 6146 May, [facility] [place] [facility] [address] [id number] [place] [address]- 7596 May, [facility] [place] [facility] [address] [id number] [place] [address]- 1254 Apr, [facility] [place] [facility] [address] [id number] [place] [address]- 4184 Apr, [facility] [place] [facility] [address] [id number] [place] [address]- 8863 Apr, [facility] [place] [facility] [address] [id number] [place] [address]- 9043 Apr, [facility] [place] [facility] [address] [id number] [place] [address]- 6918 Mar, [facility] [place] [facility] [address] [id number] [place] [address]- 4615 Mar, [facility] [place] [facility] [address] [id number] [place] [address]- 5160 Mar, [facility] [place] [facility] [address] [id number] [place] [address]- 8410 Mar, [facility] [place] [facility] [address] [id number] [place] [address]- 8713 Mar, [facility] [place] [facility] [address] [id number] [place] [address]- 9620 Mar, [facility] [place] [facility] [address] [id number] [place] [address]- 0493 Jan, [facility] [place] [facility] [address] [id number] [place] [address]- 5908 Jan, [facility] [place] [facility] [address] [id number] [place] [address]- 7240 Jan, [facility] [place] [facility] [address] [id number] [place] [address]- 0784 Jan, [facility] [place] [facility] [address] [id number] [place] [address]- 7787 Jan, [facility] [place] [facility] [address] [id number] [place] [address]- 8731 Jan, [facility] [place] [facility] [address] [id number] [place] [address]- 6148 Jan, [facility] [place] [facility] [address] [id number] [place] [address]- 1613 Jan, [facility] [place] [facility] [address] [id number] [place] [address]- 4075 Jan, [facility] [place] [facility] [address] [id number] [place] [address]- 6009 Jan, [facility] [place] [facility] [address] [id number] [place] [address]- 5244 Jan, [facility] [place] [facility] [address] [id number] [place] [address]- 4613 Jan, [facility] [place] [facility] [address] [id number] [place] [address]- 8120 December, [facility] [place] [facility] [address] [id number] [place] [address]- 7930 December, [facility] [place] [facility] [address] [id number] [place] [address]- 7581 December, [facility] [place] [facility] [address] [id number] [place] [address]- 3327 December, [facility] [place] [facility] [address] [id number] [place] [address]- 0186 Dec, [facility] [place] [facility] [address] [id number] [place] [address]- 7251 Dec, [facility] [place] [facility] [address] [id number] [place] [address]- 1793 Dec, [facility] [place] [facility] [address] [id number] [place] [address]- 0413 Dec, [facility] [place] [facility] [address] [id number] [place] [address]- 3481 Dec, [facility] [place] [facility] [address] [id number] [place] [address]- 4467 Dec, [facility] [place] [facility] [address] [id number] [place] [address]- 1823 Dec, [facility] [place] [facility] [address] [id number] [place] [address]- 1320 Dec, [facility] [place] [facility] [address] [id number] [place] [address]- 6487 Dec, [facility] [place] [facility] [address] [id number] [place] [address]- 1293 Dec, [facility] [place] [facility] [address] [id number] [place] [address]- 5739 Dec, [facility] [place] [facility] [address] [id number] [place] [address]- 8427 Dec, [facility] [place] [facility] [address] [id number] [place] [address]- 6232 Dec, [facility] [place] [facility] [address] [id number] [place] [address]- 0959 Dec, [facility] [place] [facility] [address] [id number] [place] [address]- 9214 Oct, [facility] [place] [facility] [address] [id number] [place] [address]- 2399 Oct, [facility] [place] [facility] [address] [id number] [place] [address]- 0797 Oct, [facility] [place] [facility] [address] [id number] [place] [address]- 9066 Oct, [facility] [place] [facility] [address] [id number] [place] [address]- 4240 Oct, [facility] [place] [facility] [address] [id number] [place] [address]- 7493 Oct, [facility] [place] [facility] [address] [id number] [place] [id number] Oct, [facility] [place] [facility] [address] [id number] [place] [address]- 2810 Oct, [facility] [place] [facility] [address] [id number] [place] [address]- 2601 Oct, [facility] [place] [facility] [address] [id number] [place] [address]- 6892 Oct, [facility] [place] [facility] [address] [id number] [place] [address]- 5730 Sep, [facility] [place] [facility] [address] [id number] [place] [address]- 2914 Sep, [facility] [place] [facility] [address] [id number] [place] [address]- 7788 Sep, [facility] [place] [facility] [address] [id number] [place] [address]- 1742 Sep, [facility] [place] [facility] [address] [id number] [place] [address]- 2102 Sep, [facility] [place] [facility] [address] [id number], [place] [address]- 0824 Sep, [facility] [place] [facility] [address] [id number], [place] [address]- 0225 Aug, [facility] [place] [facility] [address] [id number], [place] [address]- 9622 18 Aug, 2013 [facility] [place] [facility] [address] [id number] [place] [address]- 8161 Jul, [facility] [place] [facility] [address] [id number], [place] [address]- 6049 Jul, [facility] [place] [facility] [address] [id number][place] [address]93 Jul, [facility] [place] [facility] [address] [id number], [place] [address]- 4476 Jul, [facility] [address] [facility] [id number] [place] [address]- 1346 Jul, IMMUNIZATIONS No Known Immunizations SOCIAL HISTORY Never Assessed REASON FOR VISIT Suboxone RX (02/10-02/24) PLAN OF CARE VITAL SIGNS MEDICATIONS Medication [...]
--- OUTSIDE RECORDS SUMMARY | 2018-08-30 21:25 | XMS REPORT ---
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 Active Problem Addiction to drug F19.20 Active Problem Diarrhea, unspecified type R19.7 Active Problem Opioid use disorder, moderate, dependence F11.20 Active Problem Dysthymia F34.1 Active Problem Acute bilateral low back pain without sciatica M54.5 Active Problem Essential hypertension I10 Active Problem Mixed hyperlipidemia E78.2 Active Medications Medication Code System Code Instructions Start Date End Date Status Dosage Dicyclomine HCl [facility] [address]-37 10 mg Orally 3 times a day prn Jul 03, 2016 Aug 01, 2016 1 capsule Results No Known Results Summary Purpose [employer] Submission
--- OUTSIDE RECORDS SUMMARY | 2018-08-30 21:25 | XMS REPORT ---
Author Author YANNICK JOSUE Organization [employer] Address Unknown Phone Unavailable Care Team Providers Care Speech Communication Instructor Name Role Phone YANNICK JOSUE CP Unavailable [...] Dysuria R30.0 Active Assessment Gastroparesis K31.84 Active Problem Unspecified constipation 564.00 Active Problem [...] End Date Status Dosage Humalog [facility] [address]-59 100 UNIT/ML Subcutaneous pump as per pump inject Units by Subcutaneous route every hour per insulin pump Results No Known Results Summary Purpose [employer] Submission
--- OUTSIDE RECORDS SUMMARY | 2018-08-30 21:26 | XMS REPORT ---
Author Author YANNICK JOSUE Organization [employer] Address Unknown Phone Unavailable Care Team Providers Care Bottom Cager Name Role Phone YANNICK JOSUE Unavailable Allergies, Adverse Reactions, Alerts Substance Reaction Event Type Penicillin V Potassium rash Drug Allergy Cipro nausea and vomiting Drug Allergy Bactrim DS rash Drug Allergy Problems Problem Type Condition ICD-9 Code Onset Dates Condition Status Problem Health examination of defined subpopulation V70.5 Active Problem Abdominal pain, generalized 789.07 Active Problem Unspecified constipation 564.00 Active Problem Unspecified essential hypertension 401.9 Active Problem Abdominal pain, epigastric 789.06 Active Problem Gastroparesis due to DM 250.60 Active Problem Unspecified renal failure 586 Active Problem Diabetes mellitus without mention of complication, type I [juvenile type], not stated as uncontrolled 250.01 Active Problem Urinary frequency 788.41 Active Problem Screening for hypertension V81.1 Active Assessment Contraception management V25.9 Active Assessment Gastroparesis due to DM 250.60 Active Assessment Diabetes mellitus without mention of complication, type I [ juvenile type], not stated as uncontrolled 250.01 Active Assessment Renal insufficiency 593.9 Active Problem Elevated blood pressure reading without diagnosis of hypertension 796.2 Active Medications Medication Code System Code Instructions Start Date End Date Status Dosage Fish Oil [facility] 2001 [address]-67 1000 MG Orally Once a day 2 capsule Humalog [facility] 2001 [address]-22 100 UNIT/ML Subcutaneous pump as per pump inject Units by Subcutaneous route every hour per insulin pump Lovastatin [facility] 2001 [address]-59 20 MG Orally Once a day March 30, 2015 1 tablet with a meal Reglan [facility] 2001 [address]-98 5 MG Orally 3 times a day prn before meals Apr 1 tablet Vitamin D (Ergocalciferol) [facility] [address]-03 37781 UNIT Orally TWICE WEEKLY X8 WKS-AFTER 8 WEEKS TAKEN OTC VITAMIN D 2000 IU March 30, 2015 1 capsule Apri [facility] 2001 [address]-20 0.15-30 MG-MCG Orally Once a day Apr 28, 2015 1 tablet Enalapril Maleate [facility] 2001 [address]-80 5 MG Orally Twice a day 1 tablet Procedures Procedure Coding System Code Date Office Visit, Est Pt., Level 4 CPT-4 79504 Apr 28, 2015 Vital Signs Date/Time: Apr 28, 2015 Temperature 98.1 F Weight 187.7 lbs Height 66 in BMI 30.29 Index Blood Pressure Diastolic 78 mmHg Blood Pressure Systolic 120 mmHg Cardiac Monitoring Heart Rate 78 bpm Results No Known Results Summary Purpose [employer] Submission
--- OUTSIDE RECORDS SUMMARY | 2018-08-30 21:26 | XMS REPORT ---
Author Author ALVIN CARMEN [facility] Address [address] [place] [address] Care Team Providers Care Mitigation Supervisor Name Role Phone NELLA ALVIN Unavailable PROBLEMS Type Condition ICD9-CM Code [id number] Code Onset Dates Condition Status SNOMED Code Problem Essential hypertension I10 Active 44682913 Problem Addiction to drug F19.20 Active 666902482 Problem Diarrhea, unspecified type R19.7 Active 91697454 Problem Right acute serous otitis media, recurrence not specified H65.01 Active 253504463 Problem Mild episode of recurrent major depressive disorder F33.0 Active 913407854 Problem Encounter for therapeutic drug level monitoring Z51.81 Active 384813744 Problem 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 Active 094058404 Problem Opioid use disorder, severe, in sustained remission F11.21 Active 26699432 Problem Irritable bowel syndrome with constipation K58.1 Active 969197446 Problem Recurrent UTI N39.0 Active 369595984 Problem Gastroparesis K31.84 Active 368316777 Problem Acute bilateral low back pain without sciatica M54.5 Active 244483828 Problem Chronic kidney disease, stage 3 N18.3 Active 265812705 Problem Dysthymia F34.1 Active 87748214 Problem 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
--- OUTSIDE RECORDS SUMMARY | 2018-08-30 21:26 | XMS REPORT ---
Author Author ALVIN CARMEN [facility] Address [address] [place] [address] Care Team Providers Care Loss Control Technician Name Role Phone NELLA ALVIN Unavailable PROBLEMS Type Condition ICD9-CM Code MCR02-EC Code Onset Dates Condition Status SNOMED Code Problem Essential hypertension I10 Active 09825033 Problem Addiction to drug F19.20 Active 094288908 Problem Diarrhea, unspecified type R19.7 Active 54336329 Problem Right acute serous otitis media, recurrence not specified H65.01 Active 234817278 Problem Mild episode of recurrent major depressive disorder F33.0 Active 477601452 Problem Encounter for therapeutic drug level monitoring Z51.81 Active 751739326 Problem 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 Active 360859186 Problem Opioid use disorder, severe, in sustained remission F11.21 Active 46538831 Problem Irritable bowel syndrome with constipation K58.1 Active 307854160 Problem Recurrent UTI N39.0 Active 502840973 Problem Gastroparesis K31.84 Active 619319434 Problem Acute bilateral low back pain without sciatica M54.5 Active 849813905 Problem Chronic kidney disease, stage 3 N18.3 Active 283062375 Problem Dysthymia F34.1 Active 98947696 Problem 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
--- OUTSIDE RECORDS SUMMARY | 2018-08-30 21:27 | XMS REPORT ---
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 Active 493628575 Problem Encounter for therapeutic drug level monitoring Z51.81 Active 934940503 Problem Opioid use disorder, severe, in sustained remission F11.21 Active 83503440 Problem Irritable bowel syndrome with constipation K58.1 Active 435835135 Problem 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 Active 48023288 Problem Gastroparesis K31.84 Active 521841813 Problem Acute bilateral low back pain without sciatica M54.5 Active 902496755 Problem Chronic kidney disease, stage 3 N18.3 Active 949924254 Problem Dysthymia F34.1 Active 60504227 Problem Recurrent UTI N39.0 Active 827130630 Problem Mixed hyperlipidemia E78.2 Active 856951546 ALLERGIES Unknown Allergies SOCIAL HISTORY No smoking Hx information available PLAN OF CARE Activity Details Follow Up 2 Weeks Reason:Suboxone f/u VITAL SIGNS Height 66 in 2016-08-20 Weight 176 lbs 2016-08-20 Temperature 97.6 degrees Fahrenheit 2016-08-20 Heart Rate 108 bpm 2016-08-20 Respiratory Rate 20 2016-08-20 BMI 28.40 kg/m2 2016-08-20 Blood pressure systolic 156 mmHg 2016-08-20 Blood pressure diastolic 108 mmHg 2016-08-20 MEDICATIONS Medication Instructions Dosage Frequency Start Date End Date Duration Status Vitamin D (Ergocalciferol) 02783 UNIT Orally TWICE WEEKLY X8 WKS-AFTER 8 [...] Twice a day 1 tablet 12h Active Vitamin B12 Active Humalog 100 UNIT/ML Subcutaneous pump as per pump inject Units by Subcutaneous route every hour per insulin pump Active Suboxone 8-2 MG Sublingual Once a day 0.5 film under the tongue and allow to dissolve 24h Aug, Active Lovastatin 20 mg Orally Once a day 1 tablet with a meal 24h Mar, 30 day(s) Active RESULTS Name Result Date Reference Range URINE DRUG SCREEN (IN HOUSE) 2016-08-20 Lot # [id number] Exp date 03/2018 Control + COCAINE neg AMPH neg MTD neg THC neg OPIATE neg BENZO neg PCP neg BAR neg OXY neg MAMP neg TCA n/a BUP + MDMA neg PROCEDURES Procedure Date Ordered Related Diagnosis Body Site Office Visit, Est Pt., Level 3 Aug 20, 2016 DRUG SCREEN NON TLC DEVICES Aug 20, 2016 IMMUNIZATIONS No Known Immunizations
--- OUTSIDE RECORDS SUMMARY | 2018-08-30 21:27 | XMS REPORT ---
Author Author NOEMY MORGAN Organization [facility] Address [address] 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 [id number] [place] [address] 70046- 9871 December, [facility] [address] [place] [address] Dec, 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 [id number] [place] [address] 56499- 1592 Dec, Opioid use disorder, severe, in early remission F11.21 [facility] [id number] [place] [address] 51349- 3416 Oct, [facility] [id number] [place] [address] 48469 2546 Oct, Opioid use disorder, severe, in early remission F11.21 [facility] [id number] [place] [address] 68886 2546 Oct, [facility] [id number] [place] [address] 65366 2546 Oct, Opioid use disorder, severe, in early remission F11.21 [facility] [id number] [place] [address] 58951 2546 Oct, [facility] [id number] [place] [address] 51997 2546 Oct, [facility] [address] [place] [address] Oct, Opioid use disorder, severe, in sustained remission F11.21 [facility] [id number] [place] [address] 19090- 5486 Sep, [facility] [id number] [place] [address] 26691- 2156 Sep, [facility] [id number] [place] [address] 76002- 2546 Sep, Opioid use disorder, severe, in early remission F11.21 [facility] [id number] [place] [address] 91565 2546 Aug, Opioid use disorder, severe, in early remission F11.21 [facility] [id number] [place] [address] 67802- 9766 Jul, [facility] [id number] [place] [address] 73186- 5896 21 Nov, 2017 Chronic kidney disease, stage 3 N18.3 ; Dysthymia F34.1 and Opioid use disorder, severe, in sustained remission F11.21 [facility] [address] [place] [address] Jul, Opioid use disorder, severe, in sustained remission F11.21 [facility] [id number] [place] [address] 88593- 5061 Jul, Long-term use of high-risk medication Z79.899 and Chronic kidney disease, stage [address] 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 [id number] [place] [address] 31938- 8974 Jun, [facility] [address] 55381- 8907 Jun, Opioid use disorder, moderate, dependence F11.20 and Opioid use disorder, severe, in early remission F11.21 [facility] [id number] [place] [address] 97799- 4453 Jun, [place] [id number] [place] [address] 04801- 0471 Jun, Long-term use of high-risk medication Z79.899 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 [id number] [place] [address] 21092- 1111 14 May, 2017 Chronic kidney disease, stage 3 N18.3 [facility] [address] [place] [address] 05 May, 2017 Opioid use disorder, severe, in sustained remission F11.21 [facility] [id number] [place] [address] 30550- 8733 Apr, LGSIL on Pap smear of cervix R87.612 [facility] [address] [place] [address] Apr, [facility] [id number] [place] [address] 82351- 0679 Apr, Opioid use disorder, severe, in early remission F11.21 [facility] [id number] [place] [address] 88945- 6632 Apr, Opioid use disorder, severe, in early remission F11.21 [facility] [id number] [place] [address] 23479- 6143 Apr, Opioid use disorder, severe, in early remission F11.21 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 [id number] [place] [address] 31684- 0231 Apr, Opioid use disorder, severe, in early remission F11.21 [facility] [address] [place] [address] Apr, Opioid use disorder, severe, in sustained remission F11.21 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 [id number] [place] [address] 48792- 6277 Apr, Mild episode of recurrent major depressive disorder F33.0 and Right acute serous otitis media, recurrence not specified H65.01 [facility] [id number] [place] [address] 25197- 4386 Mar, 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 [address] 49995- 6122 Mar, [facility] [address] [place] [address] Mar, Opioid use disorder, severe, in sustained remission F11.21 [facility] [address] [place] [address] Mar, Opioid use disorder, severe, in sustained remission F11.21 [facility] [id number] [place] [address] 95856- 1685 Mar, Opioid use disorder, severe, in early remission F11.21 [facility] [id number] [place] [address] 82727- 1340 Jan, Opioid use disorder, severe, in early remission F11.21 [facility] [address] [place] [address] Jan, Opioid use disorder, severe, in sustained remission F11.21 [facility] [address] [place] [address] Jan, Opioid use disorder, severe, in sustained remission F11.21 [facility] [id number] [place] [address] 43197- 4291 Jan, Opioid use disorder, severe, in early remission F11.21 [facility] [address] [place] [address] Jan, Opioid use disorder, severe, in sustained remission F11.21 [facility] [id number] [place] [address] 65932- 6507 December, Opioid use disorder, severe, in early remission F11.21 [facility] [address] [place] [address] December, Opioid use disorder, severe, in sustained remission F11.21 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 [id number] [place] [address] 22500- 8708 December, Opioid use disorder, severe, in early remission F11.21 [facility] [address] [place] [address] December, Opioid use disorder, severe, in sustained remission F11.21 [place] [id number] [place] [address] 60068- 6639 December, Encounter for therapeutic drug level monitoring Z51.81 [facility] [address] [place] [address] December, Opioid use disorder, severe, in sustained remission F11.21 [facility] [address] [place] [address] Dec, Opioid use disorder, severe, in sustained remission F11.21 [facility] [address] [place] [id number] [place] [address] 64464- 5324 Dec, Opioid use disorder, severe, in early remission F11.21 [facility] [address] [place] [address] [address] 2212 Dec, [facility] [address] [place] [address] Dec, Opioid use disorder, severe, in sustained remission F11.21 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 [id number] [place] [address] 95435- 3449 03 Dec, 2016 Opioid use disorder, severe, in sustained remission F11.21 ; Encounter for therapeutic drug level monitoring Z51.81 and Other shelter ( current) drug therapy Z79.899 [facility] [address] [place] [address] 31 Oct, 2016 Opioid use disorder, severe, in sustained remission F11.21 [facility] [id number] [place] [address] 35468- 0469 23 Oct, 2016 Opioid use disorder, severe, in early remission F11.21 [facility] [id number] [place] [address] 50335- 5899 15 Oct, 2016 [facility] [address] [place] [address] Oct, Opioid use disorder, severe, in sustained remission F11.21 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 [id number] [place] [address] 70827- 6244 14 Oct, 2016 Routine gynecological examination Z01.[address] [place] [address]- 3538 07 Oct, 2016 Opioid use disorder, severe, in early remission F11.21 [facility] [address] 24474- 2649 Oct, Opioid use disorder, severe, in early remission F11.21 [facility] [id number] [place] [address] 12154- 4624 Oct, Opioid use disorder, severe, in early remission F11.21 [facility] [address] [place] [address] Oct, Opioid use disorder, severe, in sustained remission F11.21 [place] [address] 95728- 3706 Oct, Opioid use disorder, severe, in early remission F11.21 [place] [address] 37819- 2616 Oct, Opioid use disorder, severe, in early remission F11.21 [facility] [address] [place] [address] Oct, Opioid use disorder, severe, in sustained remission F11.21 [place] [address] 38682- 6423 20 Oct, 2016 Opioid use disorder, severe, in sustained remission F11.21 ; Encounter for therapeutic drug level monitoring Z51.81 and Other shelter ( current) drug therapy Z79.899 [place] [id number] [place] [address] 60634- 3897 16 Oct, 2016 [facility] [address] [place] [address] 14 Oct, 2016 Opioid use disorder, severe, in early remission F11.21 [facility] [address] [place] [address] 10 Oct, 2016 Opioid use disorder, severe, in early remission F11.21 [facility] [id number] [place] [address] 43160- 8577 09 Oct, 2016 Opioid use disorder, severe, in early remission F11.21 [facility] [address] [address]- 8302 08 Oct, 2016 [facility] [id number] [place] [address] 51483- 7362 Oct, [facility] [id number] [place] [address] 70960- 6052 Oct, [facility] [address] [place] [address] Oct, Opioid use disorder, severe, in early remission F11.21 [facility] [id number] [place] [address] 75801- 9893 Sep, Opioid use disorder, severe, in early remission F11.21 [facility] [address] [place] [address] Sep, Opioid use disorder, severe, in early remission F11.21 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 [id number] [place] [address] 77778- 7300 Sep, [facility] [id number] [place] [address] 76270- 3840 Sep, 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 [id number] [place] [address] 34217- 5398 Sep, Opioid use disorder, moderate, dependence F11.20 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 [place] [id number] [place] [address] 59911- 5355 Sep, Opioid use disorder, severe, in early remission F11.21 [facility] [address] [place] [address] Aug, Opioid use disorder, severe, in early remission F11.[address] 47358- 9144 Aug, Opioid use disorder, moderate, dependence F11.20 [facility] [id number] [place] [address] 49785 -8612 Aug, Bug bite without infection, initial encounter W57.XXXA [place] [id number] [place] [address] 91377- 4360 Aug, Opioid use disorder, moderate, dependence F11.20 [facility] [address] [place] [address] Aug, [place] [id number] [place] [address] 45181- 3610 Aug, Opioid use disorder, severe, 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 [address] [place] [address] 67168- 2850 Aug, Opioid use disorder, moderate, dependence F11.20 ; Other shelter (current) drug therapy Z79.899 and Encounter for therapeutic drug level monitoring Z51.81 [facility] [id number] [place] [address] 579052- 2031 Aug, [facility] [id number] [place] [address] 733410- 2054 Aug, Non-intractable vomiting with nausea, unspecified vomiting type R11.2 [facility] [id number] [place] [address] 798432- 7414 Aug, Opioid use disorder, moderate, dependence F11.20 and Non- intractable vomiting with nausea, unspecified vomiting type R11.2 [facility] [id number] [place] [address] 75709- 6271 Aug, [facility] [id number] [place] [address] 87739- 1936 Aug, Opioid use disorder, moderate, dependence F11.20 [facility] [id number] [place] [address] 25494- 8012 Aug, 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 [id number] [place] [address] 36698- 9506 Jul, [facility] [id number] [place] [address] 50972- 5993 Jul, [facility] [id number] [place] [address] 54883- 5364 Jul, Addiction to drug F19.20 and Chronic kidney disease, stage 3 N18.3 [facility] [address] [place] [address] Jul, Counseling on substance use and abuse Z71.89 [facility] [id number] [place] [address] 12325- 2723 Jul, Chronic kidney disease, stage [address] 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 [id number] [place] [address] 58164- 1492 Jul, [facility] [address] 72370- 0261 Jun, [facility] [id number] [place] [address] 57837- 3148 Jun, 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 [id number] [place] [address] 06216- 5041 Apr, Sore throat and laryngitis J06.0 and Non-intractable vomiting with nausea, unspecified vomiting type R11.2 [facility] [id number] [place] [address] 21765- 1889 Apr, [facility] [id number] [place] [address] 32916- 5585 Mar, [facility] [id number] [place] [address] 96977- 5068 Jan, [facility] [id number] [place] [address] 39644- 8061 Jan, [facility] [id number] [place] [address] 63704- 5930 Jan, 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 ; Gastroparesis K31.84 ; Mixed hyperlipidemia E78.2 ; Chronic kidney disease, stage 3 N18.3 ; Dysthymia F34.1 and Acute bilateral low back pain without sciatica M54.5 [place] [address] 98928- 8334 December, [place] [address] 46140- 3421 December, [place] [address] 98642- 9084 Aug, Depression F32.9 and Gastroparesis K31.84 [place] [address] 18933- 6470 Aug, Gastroparesis K31.84 [place] [address] 81303- 5666 Jul, Recurrent UTI N39.0 ; Chronic kidney disease, stage 3 N18.3 and 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 [place] [address] 66143- 6474 Jul, [facility] [address] [id number] Jul, Dental examination Z01.20 and Dental caries K02.9 [place] [address] 52081- 5410 Jul, [facility] [address] 12966 -7785 Jul, Dysuria R30.0 ; Urinary tract infection N39.0 and Nausea R11.0 [place] [address] 04443- 2649 Jun, Dysuria R30.0 [place] [address] 26307- 9994 Jun, Dysuria R30.0 [place] [id number] [place] [address] 81430- 1333 Jun, Dysuria R30.0 [place] [facility] [id number] [place] [address] 81520- 9464 Jun, [place] [id number] [place] [address] 36350- 7382 Jun, Acute cystitis with hematuria N30.01 [place] [id number] [place] [address] 18556- 4308 May, [place] [id number] [place] [address] 63272- 4535 Apr, Diabetes mellitus without mention of complication, type I [ juvenile type], not stated as uncontrolled 250.01 ; Gastroparesis due to DM 250.60 ; Contraception management V25.9 and Renal insufficiency 593.9 [place] [id number] [place] [address] 21920- 4848 Apr, [place] [id number] [place] [address] 66597- 7550 Apr, [place] [id number] [place] [address] 30313- 4075 Mar, [place] [id number] [place] [address] 16173- 1379 Mar, Hyperlipidemia 272.4 and Hypertensive heart and chronic kidney disease, benign, without heart failure and with chronic kidney disease stage I through stage IV, or unspecified 404.10 [id number] [place] [address] Mar, Hyperlipidemia 272.4 ; Hyponatremia 276.1 ; 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 [id number] [address] Mar, Elevated blood sugar level 790.29 [address] [address] [place] [address] Mar, Low grade squamous intraepithelial lesion (LGSIL) on cervical Pap smear 795.03 [address] [address] [id number] [address] Mar, Amenorrhea 626.0 [address] [id number] [place] [address] Jan, Amenorrhea 626.0 ; Routine gynecological examination V72.31 and Screen for STD (sexually transmitted disease) V74.5 [place] [address] [id number] [address] Jan, Amenorrhea 626.0 [address] [id number], [place] [address] 08 Jan, 2015 Routine gynecological examination V72.31 ; Screen for STD ( sexually transmitted disease) V74.5 ; Pap test, as part of routine gynecological examination V76.2 ; Breast cancer screening V76.10 and Amenorrhea 626.0 [place] [id number], [place] [address] December, [place] [address], [place] [address] Dec, [place] [address], [place] [address] Dec, [facility] [address] [address] [address] 30 Oct, 2014 [place] [id number], [place] [address] Oct, [facility] [place] [facility] [address] [id number] [place] [address] Oct, [facility] [place] [facility] [address] [id number] [place] [address] Oct, [facility] [place] [facility] [address] [id number] [place] [address] 1741 Oct, [facility] [place] [facility] [address] [id number] [place] [address] Oct, [facility] [place] [facility] [address] [id number] [place] [address] Oct, [facility] [place] [facility] [address] [id number] [place] [address]- [address] Oct, [facility] [place] [facility] [address] [id number] [place] [address]- 5569 Oct, [facility] [place] [facility] [address] [id number] [place] [address] 1368 Oct, [facility] [place] [facility] [address] [id number] [place] [address] 7920 Oct, [facility] [place] [facility] [address] [id number] [place] [address]- 7035 Sep, [facility] [place] [facility] [address] [id number] [place] [address]- 1765 Sep, [facility] [place] [facility] [address] [id number] [place] [address]- 6[address] Sep, [facility] [place] [facility] [address] [id number] [place] [address]- 9174 Sep, [facility] [place] [facility] [address] [id number] [place] [address]- 6367 Sep, [facility] [place] [facility] [address] [id number] [place] [address]- 4[address] Sep, [facility] [place] [facility] [address] [id number] [place] [address]- 7141 15 Sep, 2014 [facility] [address] [id number] [place] [address]- [address]64 15 Sep, 2014 [facility] [place] [facility] [address] [id number] [place] [address]- 7571 Sep, [facility] [place] [facility] [address] [id number] [place] [address]- 2782 Sep, [facility] [place] [facility] [address] [id number] [place] [address]- 8573 Sep, [facility] [place] [facility] [address] [id number] [place] [address]- 2879 Sep, [facility] [place] [facility] [address] [id number] [place] [address]- 1813 Sep, [facility] [place] [facility] [address] [id number] [place] [address]- 8902 Sep, [facility] [place] [facility] [address] [id number] [place] [address]- 6254 Sep, [facility] [place] [facility] [address] [id number] [place] [address]- 5120 Sep, [facility] [place] [facility] [address] [id number] [place] [address]- 5517 Sep, [facility] [place] [facility] [address] [id number] [place] [address]- 2198 Sep, [facility] [place] [facility] [address] [id number], [place] [address] Sep, [facility] [place] [facility] [address] [id number], [place] [address] 8[address] Sep, [facility] [place] [facility] [address] [id number] [place] [address]- 0140 Aug, [facility] [place] [facility] [address] [id number] [place] [address]- 7019 Aug, [facility] [place] [facility] [address] [id number] [place] [address]- 4149 09 Aug, 2014 [facility] [place] [facility] [address] [id number] [place] [address] Aug, [facility] [place] [facility] [address] [id number] [place] [address]- [address]296 08 Aug, 2014 [facility] [place] [facility] [address] [id number] [place] [address]- 8634 Aug, [facility] [place] [facility] [address] [id number] [place] [address] Aug, [facility] [place] [facility] [address] [id number] [place] [address]- 2292 Aug, [facility] [place] [facility] [address] [id number] [place] [address]- 8362 Aug, [facility] [place] [facility] [address] [id number] [place] [address]- 7267 Aug, [facility] [place] [facility] [address] [id number] [place] [address]- 0677 Aug, [facility] [place] [facility] [address] [id number] [place] [address]- 2150 Aug, [facility] [place] [facility] [address] [id number] [place] [address]- 2217 Jul, [facility] [place] [facility] [address] [id number] [place] [address]- 7428 Jul, [facility] [place] [facility] [address] [id number] [place] [address]- 2102 Jul, [facility] [place] [facility] [address] [id number] [place] [address] Jul, [facility] [place] [facility] [address] [id number] [place] [address]- 3200 17 Jul, 2014 [facility] [place] [facility] [address] [id number] [place] [address]- 5961 Jul, [facility] [place] [facility] [address] [id number] [place] [address]- 2536 Jul, [facility] [place] [facility] [address] [id number] [place] [address]- 7346 Jul, [facility] [place] [facility] [address] [id number] [place] [address]- 0607 Jul, [facility] [place] [facility] [address] [id number] [place] [address]- 3714 Jul, [facility] [place] [facility] [address] [id number] [place] [address] Jun, [facility] [place] [facility] [address] [id number] [place] [address] Jun, [facility] [place] [facility] [address] [id number] [place] [address]- 7913 30 Jun, 2014 [facility] [place] [facility] [address] [id number], [place] [address] 30 Jun, 2014 [facility] [place] [facility] [address] [id number] [place] [address]- 3496 30 Jun, 2014 [facility] [place] [facility] [address] [id number] [place] [address]- 8040 30 Jun, 2014 [facility] [place] [facility] [address] [id number], [place] [address]- 3517 15 Jun, 2014 [facility] [place] [facility] [address] [id number], [place] [address] 9653 15 Jun, 2014 [facility] [place] [facility] [address] [id number] [place] [address]- 3316 22 May, 2014 [facility] [place] [facility] [address] [id number] [address] 22 May, 2014 [facility] [place] [facility] [address] [id number] [place] [address] 18 May, 2014 [facility] [place] [facility] [address] [id number] [place] [address]- 5381 May, [facility] [place] [facility] [address] [id number] [place] [address]- 1606 May, [facility] [place] [facility] [address] [id number] [place] [address]- 7802 May, [facility] [place] [facility] [address] [id number] [place] [address]- 2345 May, [facility] [place] [facility] [address] [id number] [place] [address]- 7072 May, [facility] [place] [facility] [address] [id number] [place] [address]- 6835 Apr, [facility] [place] [facility] [address] [id number] [place] [address]- 1173 Apr, [facility] [place] [facility] [address] [id number] [place] [address]- 8583 Apr, [facility] [place] [facility] [address] [id number] [place] [address]- 1612 Apr, [facility] [place] [facility] [address] [id number] [place] [address]- 2369 Mar, [facility] [place] [facility] [address] [id number] [place] [address]- 9053 Mar, [facility] [place] [facility] [address] [id number] [place] [address]- 5427 Mar, [facility] [place] [facility] [address] [id number] [place] [address]- 2547 Mar, [facility] [place] [facility] [address] [id number] [place] [address]- 3909 Mar, [facility] [place] [facility] [address] [id number] [place] [address]- 5557 Mar, [facility] [place] [facility] [address] [id number] [place] [address]- 6354 Jan, [facility] [place] [facility] [address] [id number] [place] [address]- 6250 Jan, [facility] [place] [facility] [address] [id number] [place] [address]- 6190 Jan, [facility] [place] [facility] [address] [id number] [place] [address]- 1740 Jan, [facility] [place] [facility] [address] [id number] [place] [address]- 0144 Jan, [facility] [place] [facility] [address] [id number] [place] [address]- 1371 Jan, [facility] [place] [facility] [address] [id number] [place] [address]- 9597 Jan, [facility] [place] [facility] [address] [id number] [place] [address]- 7841 Jan, [facility] [place] [facility] [address] [id number] [place] [address]- 2514 Jan, [facility] [place] [facility] [address] [id number] [place] [address]- 0543 Jan, [facility] [place] [facility] [address] [id number] [place] [address]- 6925 Jan, [facility] [place] [facility] [address] [id number] [place] [address]- 6433 Jan, [facility] [place] [facility] [address] [id number] [place] [address]- 2087 December, [facility] [place] [facility] [address] [id number] [place] [address]- 5128 December, [facility] [place] [facility] [address] [id number] [place] [address]- 7462 December, [facility] [place] [facility] [address] [id number] [place] [address]- 1975 December, [facility] [place] [facility] [address] [id number] [place] [address]- 4644 Dec, [facility] [place] [facility] [address] [id number] [place] [address]- 0018 Dec, [facility] [place] [facility] [address] [id number] [place] [address]- 1052 Dec, [facility] [place] [facility] [address] [id number] [place] [address]- 1723 Dec, [facility] [place] [facility] [address] [id number] [place] [address]- 9655 Dec, [facility] [place] [facility] [address] [id number] [place] [address]- 2801 Dec, [facility] [place] [facility] [address] [id number] [place] [address]- 4341 Dec, [facility] [place] [facility] [address] [id number] [place] [address]- 4971 Dec, [facility] [place] [facility] [address] [id number] [place] [address]- 0237 Dec, [facility] [place] [facility] [address] [id number] [place] [address]- 1379 Dec, [facility] [place] [facility] [address] [id number] [place] [address]- 7025 Dec, [facility] [place] [facility] [address] [id number] [place] [address]- 9451 Dec, [facility] [place] [facility] [address] [id number] [place] [address]- 8145 Dec, [facility] [place] [facility] [address] [id number] [place] [address]- 7119 Dec, [facility] [place] [facility] [address] [id number] [place] [address]37 Oct, [facility] [place] [facility] [address] [id number] [place] [address]- 6961 Oct, [facility] [place] [facility] [address] [id number] [place] [address]- 4960 29 Oct, 2013 [facility] [address] [id number] [place] [address]- 7377 29 Oct, 2013 [facility] [address] [id number] [place] [address]- 8273 28 Oct, 2013 [facility] [address] [id number] [place] [address]- 7551 28 Oct, 2013 [facility] [address] [id number] [place] [id number] Oct, [facility] [address] [id number] [place] [address]- 1392 Oct, [facility] [address] [id number] [place] [address]- 0456 Oct, [facility] [address] [id number] [place] [address]- 2175 Oct, [facility] [address] [id number] [place] [address]- 3676 Sep, [facility] [address] [id number] [place] [address]- 2350 Sep, [facility] [address] [id number] [place] [address]- 1999 Sep, [facility] [address] [id number] [place] [address]- 2422 Sep, [facility] [address] [id number] [place] [address]- 1913 Sep, [facility] [address] [id number] [place] [address]- 2775 Sep, [facility] [address] [id number] [place] [address]- 0886 Aug, [facility] [address] [id number] [place] [address]- [address] Aug, [facility] [address] [facility] [id number] [address] Jul, [facility] [address] [id number], [place] [address] Jul, [facility] [address] [facility] [id number], [place] [address] 1391 Jul, [facility] [address] [id number], [place] [address] Jul, [facility] [address] [facility] [id number] [address] Jul, IMMUNIZATIONS No Known Immunizations SOCIAL HISTORY Never Assessed REASON FOR VISIT Suboxone RX (30 day) PLAN OF CARE VITAL SIGNS MEDICATIONS Medication Instructions Dosage Frequency Start Date End Date Duration Status Suboxone 8-2 MG Sublingual Once a day 2 24h Aug, May, 30 days Active RESULTS No Results PROCEDURES [...]
--- OUTSIDE RECORDS SUMMARY | 2018-08-30 21:27 | XMS REPORT ---
Author Author ALVIN CARMEN [facility] Address [address] [place] [address] Care Team Providers Care Head Of Art Name Role Phone NELLA ALVIN Unavailable PROBLEMS Type Condition ICD9-CM Code VEN48-SE Code Onset Dates Condition Status SNOMED Code Problem Essential hypertension I10 Active 10138691 Problem Addiction to drug F19.20 Active 706742566 Problem Diarrhea, unspecified type R19.7 Active 64670394 Problem Right acute serous otitis media, recurrence not specified H65.01 Active 055903574 Problem Mild episode of recurrent major depressive disorder F33.0 Active 418710964 Problem Encounter for therapeutic drug level monitoring Z51.81 Active 998670071 Problem 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 Active 055809353 Problem Opioid use disorder, severe, in sustained remission F11.21 Active 75077066 Problem Irritable bowel syndrome with constipation K58.1 Active 007081963 Problem Recurrent UTI N39.0 Active 649507143 Problem Gastroparesis K31.84 Active 249457947 Problem Acute bilateral low back pain without sciatica M54.5 Active 188814149 Problem Chronic kidney disease, stage 3 N18.3 Active 768553171 Problem Dysthymia F34.1 Active 46875521 Problem 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
--- OUTSIDE RECORDS SUMMARY | 2018-08-30 21:27 | XMS REPORT ---
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 Active 731970372 Problem Encounter for therapeutic drug level monitoring Z51.81 Active 834899196 Problem Opioid use disorder, severe, in sustained remission F11.21 Active 87264615 Problem Irritable bowel syndrome with constipation K58.1 Active 936427657 Problem 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 Active 27067572 Problem Gastroparesis K31.84 Active 354050614 Problem Acute bilateral low back pain without sciatica M54.5 Active 772708543 Problem Chronic kidney disease, stage 3 N18.3 Active 070464928 Problem Dysthymia F34.1 Active 40797355 Problem Recurrent UTI N39.0 Active 812958760 Problem Mixed hyperlipidemia E78.2 Active 566076697 ALLERGIES Substance Reaction Event Type Date Status Penicillin V Potassium rash Drug Allergy Aug, Active Cipro nausea and vomiting Drug Allergy Aug, Active Bactrim DS rash Drug Allergy Aug, Active SOCIAL HISTORY No smoking Hx information available PLAN OF CARE Activity Details Follow Up 1 Week Reason:suboxone f/u VITAL SIGNS Height 66 in 2016-08-16 Weight 177.7 lbs 2016-08-16 Temperature 97.8 degrees Fahrenheit 2016-08-16 Heart Rate 96 bpm 2016-08-16 Respiratory Rate 18 2016-08-16 BMI 28.68 kg/m2 2016-08-16 Blood pressure systolic 138 mmHg 2016-08-16 Blood pressure diastolic 106 mmHg 2016-08-16 MEDICATIONS Medication Instructions Dosage Frequency Start Date End Date Duration Status Vitamin D (Ergocalciferol) 69580 UNIT Orally TWICE WEEKLY X8 WKS-AFTER 8 WEEKS TAKEN OTC VITAMIN D 2000 IU 1 capsule Mar, Active Suboxone 8-2 MG Sublingual Once a day 0.5 film under the tongue and allow to dissolve 24h Aug, Active Tylenol 8 Hour Active Zofran ODT 4 MG Orally 3 times a day, prn take 1 tablets by Oral route every 8 hours PRN Nausea or Vomiting Sep, Active Vitamin B12 Active Fish Oil 1000 MG Orally Once a day 2 capsule 24h Active Lovastatin 20 mg Orally Once a day 1 tablet with a meal 24h Mar, 30 day(s) Active Humalog 100 UNIT/ML Subcutaneous pump as per pump inject Units by Subcutaneous route every hour per insulin pump Active Enalapril Maleate 5 mg Orally Twice a day 1 tablet 12h Active RESULTS Name Result Date Reference Range URINE DRUG SCREEN (IN HOUSE) 2016-08-16 Lot # [id number] Exp date 03/2018 Control + COCAINE neg AMPH neg MTD neg THC neg OPIATE neg BENZO neg PCP neg BAR neg OXY neg MAMP neg TCA n/a BUP neg MDMA neg AMERITOX 2016-08-16 PROCEDURES Procedure Date Ordered Related Diagnosis Body Site DRUG SCREEN NON TLC DEVICES Aug 16, 2016 No Charge Aug 16, 2016 Office Visit, Est Pt., Level 3 Aug 16, 2016 IMMUNIZATIONS No Known Immunizations
--- OUTSIDE RECORDS SUMMARY | 2018-08-30 21:27 | XMS REPORT ---
Author Author KEVIN CAIN Organization [employer] Address Unknown Phone Unavailable Care Team Providers Care Asphalt Paving Machine Operator Name Role Phone KEVIN CAIN CP Unavailable Allergies No Known Allergies Problems [...] Active Problem Mixed hyperlipidemia E78.2 Active Medications No Known Medications Results No Known Results Summary Purpose [employer] Submission
--- OUTSIDE RECORDS SUMMARY | 2018-08-30 21:28 | XMS REPORT ---
Author Author CARLOTTA MIR [facility] Address [address] [place] [address] Care Team Providers Care Extruder Operator Name Role Phone CARLOTTA MIR Unavailable PROBLEMS Type Condition ICD9-CM Code YPG02-OW Code Onset Dates Condition Status SNOMED Code Problem Essential hypertension I10 Active 09530171 Problem Addiction to drug F19.20 Active 355611076 Problem Diarrhea, unspecified type R19.7 Active 50093436 Problem CHI I (cervical intraepithelial neoplasia I) N87.0 Active 089124537 Problem Right acute serous otitis media, recurrence not specified H65.01 Active 343646208 Problem Irritable bowel syndrome with constipation K58.1 Active 084100271 Problem Encounter for therapeutic drug level monitoring Z51.81 Active 814095531 Problem Mild episode of recurrent major depressive disorder F33.0 Active 024593515 Problem Opioid use disorder, severe, in sustained remission F11.21 Active 38428164 Problem Long-term use of high-risk medication Z79.899 Active 102146623 Problem Recurrent UTI N39.0 Active 959902701 Problem Gastroparesis K31.84 Active 196816466 Problem Acute bilateral low back pain without sciatica M54.5 Active 711193264 Problem 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 [address] [facility] [id number] [address] Dec, [facility] [address] [facility] [id number], [place] [address] Oct, [facility] [address] [facility] [id number], [place] [address] Oct, Opioid use disorder, severe, in early remission F11.21 [facility] [address] [address] Oct, [facility] [id number] [place] [address] 28666- 3894 Oct, Opioid use disorder, severe, in early remission F11.21 [facility] [id number] [place] [address] 62096- 7971 Oct, [facility] [id number] [place] [address] 33220- 0083 Oct, [facility] [address] [place] [address] Oct, Opioid use disorder, severe, in sustained remission F11.21 [facility] [id number] [place] [address] 59315- 6123 Sep, [facility] [id number] [place] [address] 68317- 3172 Sep, [facility] [id number] [place] [address] 88993- 8263 Sep, Opioid use disorder, severe, in early remission F11.21 [facility] [id number] [place] [address] 82381- 5158 Aug, Opioid use disorder, severe, in early remission F11.21 [facility] [id number] [place] [address] 82596- 8413 Jul, [facility] [id number] [place] [address] 91076- 0170 Jul, Chronic kidney disease, stage 3 N18.3 ; Dysthymia F34.1 and Opioid use disorder, severe, in sustained remission F11.21 [facility] [address] [place] [address] Jul, Opioid use disorder, severe, in sustained remission F11.21 [facility] [id number] [place] [address] 54335- 3221 Jul, Long-term use of high-risk medication Z79.899 and Chronic kidney disease, stage 3 N18.3 [place] [id number] [place] [address] 23380- 7416 Jul, Opioid use disorder, severe, in early remission F11.21 [facility] [id number] [place] [address] 79947- 0235 Jul, [facility] [id number] [place] [address] 32200- 4937 Jun, [place] [id number] [place] [address] 80841- 6727 Jun, [place] [id number] [place] [address] 46302- 9780 Jun, Opioid use disorder, moderate, dependence F11.20 and Opioid use disorder, severe, in early remission F11.21 [place] [id number] [place] [address] 13365- 3553 Jun, [place] [address] [place] [address] 22800- 5897 Jun, Long-term use of high-risk medication Z79.899 [place] [id number] [place] [address] 65903- 5511 Jun, CHI I (cervical intraepithelial neoplasia I) N87.0 [place] [id number] [place] [address] 03493- 5689 May, Opioid use disorder, severe, 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 [id number] [place] [address] 03640- 5629 Apr, LGSIL on Pap smear of cervix R87.612 [facility] [address] [place] [address] Apr, [facility] [address] 71458- 6286 Apr, Opioid use disorder, severe, in early remission F11.21 [facility] [id number] [place] [address] 74215- 3452 Apr, Opioid use disorder, severe, in early remission F11.21 [facility] [address] [place] [address] 75897- 3713 Apr, Opioid use disorder, severe, in early remission F11.21 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 [address] [place] [address] 03718- 0968 Apr, Opioid use disorder, severe, in early remission F11.21 [facility] [address] [place] [address] Apr, Opioid use disorder, severe, in sustained remission F11.21 [facility] [address] [place] [address] 10152- 7370 09 Apr, 2017 Opioid use disorder, severe, in early remission F11.21 [facility] [address] [place] [address] 76957- 8118 02 Apr, 2017 Mild episode of recurrent major depressive disorder F33.0 and Right acute serous otitis media, recurrence not specified H65.01 [place] [address], [place] [address] 3864 Mar, [facility] [address] [address] 5816 Mar, Opioid use disorder, severe, in early remission F11.21 [facility] [address] [address] 4786 Mar, [facility] [address] [place] [address] Mar, Opioid use disorder, severe, in sustained remission F11.21 [facility] [address] [place] [address] Mar, Opioid use disorder, severe, in sustained remission F11.21 [facility] [address] [place] [address] 81244- 7803 Mar, Opioid use disorder, severe, in early remission F11.21 [facility] [address] [place] [address] 34861- 6093 Jan, Opioid use disorder, severe, in early remission F11.21 [facility] [address] [place] [address] Jan, Opioid use disorder, severe, in sustained remission F11.21 [facility] [address] [place] [address] Jan, Opioid use disorder, severe, in sustained remission F11.21 [facility] [address], [place] [address] 2944 Jan, Opioid use disorder, severe, in early remission F11.21 [facility] [address] [place] [address] Jan, Opioid use disorder, severe, in sustained remission F11.21 [facility] [address] [place] [address] 12678- 7325 December, Opioid use disorder, severe, in early remission F11.21 [facility] [address] [place] [address] December, Opioid use disorder, severe, in sustained remission F11.21 [facility] [address] [place] [address] 99719- 7380 17 Dec, 2016 Routine gynecological examination Z01.419 and Chronic kidney disease, stage 3 N18.3 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 [id number] [place] [address] 33380- 6390 December, Opioid use disorder, severe, in early remission F11.21 [facility] [address] [place] [address] December, Opioid use disorder, severe, in sustained remission F11.21 [facility] [address] [place] [address] [place] [address] 46651- 0750 December, Encounter for therapeutic drug level monitoring Z51.81 [facility] [address] [place] [address] December, Opioid use disorder, severe, in sustained remission F11.21 [facility] [address] [place] [address] Dec, Opioid use disorder, severe, in sustained remission F11.21 [facility] [address] [place] [address] [place] [address] 74924- 6081 Dec, Opioid use disorder, severe, in early remission F11.21 [facility] [address] [place] [address] [place] [address] 29683- 2048 Dec, [facility] [address] [place] [address] Dec, Opioid use disorder, severe, in sustained remission F11.21 [facility] [address] [place] [address] [place] [address] 50466- 4291 Dec, Opioid use disorder, severe, in early remission F11.21 [facility] [address] [place] [address] 06 Dec, 2016 Opioid use disorder, severe, in sustained remission F11.21 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 [id number] [place] [address] 20354- 6086 Dec, Opioid use disorder, severe, in sustained remission F11.21 ; Encounter for therapeutic drug level monitoring Z51.81 and Other jail ( current) drug therapy Z79.899 [facility] [address] [place] [address] Oct, Opioid use disorder, severe, in sustained remission F11.21 [facility] [id number] [place] [address] 31622- 5402 23 Oct, 2016 Opioid use disorder, severe, in early remission F11.21 [facility] [id number] [place] [address] 42737- 8303 15 Oct, 2016 [facility] [address] [place] [address] 15 Oct, 2016 Opioid use disorder, severe, in sustained remission F11.21 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 [address] [place] [address] 12126- 3414 14 Oct, 2016 Routine gynecological examination Z01.419 [place] [address] [place] [address] 63286- 3348 07 Oct, 2016 Opioid use disorder, severe, in early remission F11.21 [facility] [address] [place] [address] 03563- 3599 06 Oct, 2016 Opioid use disorder, severe, in early remission F11.21 [facility] [address], [place] [address]- 6242 06 Oct, 2016 Opioid use disorder, severe, in early remission F11.21 [facility] [address] [place] [address] 02 Oct, 2016 Opioid use disorder, severe, in sustained remission F11.21 [facility] [address] [place] [address] 41440- 7924 24 Oct, 2016 Opioid use disorder, severe, in early remission F11.21 [facility] [id number] [place] [address] 53571- 9410 23 Oct, 2016 Opioid use disorder, severe, in early remission F11.21 [facility] [address] [place] [address] 22 Oct, 2016 Opioid use disorder, severe, in sustained remission F11.21 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 [id number] [place] [address] 84715- 8399 16 Oct, 2016 [facility] [address] [place] [address] 14 Oct, 2016 Opioid use disorder, severe, in early remission F11.21 [facility] [address] [place] [address] 10 Oct, 2016 Opioid use disorder, severe, in early remission F11.21 [facility] [address] [place] [address] 15099- 8443 09 Oct, 2016 Opioid use disorder, severe, in early remission F11.21 [facility] [address] [place] [address] 93316- 7738 08 Oct, 2016 [facility] [address] [address]- 2021 07 Oct, 2016 [facility] [address] [address]- 3998 Oct, [facility] [address] [place] [address] Oct, Opioid use disorder, severe, in early remission F11.21 [facility] [id number] [place] [address] 93246- 1184 Sep, Opioid use disorder, severe, in early remission F11.21 [facility] [address] [place] [address] Sep, Opioid use disorder, severe, in early remission F11.21 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 [address] [place] [address] 10481- 3890 Sep, 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 [address] [place] [address] 80597- 1069 Sep, Opioid use disorder, moderate, dependence F11.20 [facility] [address] [place] [address] [place] [address] 26708- 7847 Sep, Opioid use disorder, moderate, dependence F11.20 [facility] [address] [place] [address] Sep, Opioid use disorder, severe, in early remission F11.21 [facility] [address] [place] [address] 22846- 7528 Sep, Opioid use disorder, severe, in early remission F11.21 [facility] [address] [place] [address] Aug, Opioid use disorder, severe, in early remission F11.21 [facility] [address] [place] [address] 21013- 0619 Aug, Opioid use disorder, moderate, dependence F11.20 [facility] [address] [address] Aug, Bug bite without infection, initial encounter W57.XXXA [facility] [address] [place] [address] 25206- 3371 Aug, Opioid use disorder, moderate, dependence F11.20 [facility] [address] [place] [address] Aug, 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 [address] [place] [address] 45601- 4837 Aug, Opioid use disorder, moderate, dependence F11.20 ; Other jail (current) drug therapy Z79.899 and Encounter for therapeutic drug level monitoring Z51.81 [facility] [address] [place] [address] [place] [address] 49025- 0026 Aug, [place] [address] [place] [place] [address] 15432- 1068 Aug, Non-intractable vomiting with nausea, unspecified vomiting type R11.2 [facility] [address] [place] [address] 79673- 6641 Aug, Opioid use disorder, moderate, dependence F11.20 and Non- intractable vomiting with nausea, unspecified vomiting type R11.2 [facility] [address] [place] [address] 50153- 4673 Aug, [facility] [address] 89919- 4768 Aug, Opioid use disorder, moderate, dependence F11.20 [facility] [address] [place] [address] 53755- 4232 Aug, 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 [id number] [place] [address] 54145- 0116 Jul, [facility] [id number] [place] [address] 27891- 7094 Jul, [facility] [address] [place] [address] 78535- 4360 Jul, Addiction to drug F19.20 and Chronic kidney disease, stage 3 N18.3 [facility] [address] [place] [address] 17 Jul, 2016 Counseling on substance use and abuse Z71.89 [facility] [id number] [place] [address] 77231- 2660 Jul, Chronic kidney disease, stage 3 N18.3 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 [place] [address] [place] [address] 87778- 9585 Apr, Sore throat and laryngitis J06.0 and Non-intractable vomiting with nausea, unspecified vomiting type R11.2 [place] [address] [place] [place] [address] 22190- 5091 Apr, [place] [address] [place] [address] 22924- 7237 Mar, [place] [address] [place] [address] 72722- 5700 Jan, [place] [address] [place] [address] 68999- 3794 Jan, [place] [address] [place] [address] 86223- 5370 Jan, [place] [address] [place] [address] 56033- 5918 December, 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 [address] [place] [address] 34323- 1357 December, [facility] [address] 13982- 0176 Aug, Depression F32.9 and Gastroparesis K31.84 [facility] [address] 77506- 9993 Aug, Gastroparesis K31.84 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 [address] 23684- 4951 Jul, [facility] [address] [id number] Jul, Dental examination Z01.20 and Dental caries K02.9 [facility] [address] 00640- 3807 Jul, [facility] [id number] [place] [address] 29662 -8234 Jul, Dysuria R30.0 ; Urinary tract infection N39.0 and Nausea R11.0 [facility] [address] [place] [address] 15634- 7125 Jun, Dysuria R30.0 [facility] [address] [place] [address] 49037- 8408 Jun, Dysuria R30.0 [facility] [address] 47968- 4917 Jun, Dysuria R30.0 [facility] [address] [place] [address] 93562- 6435 Jun, [address] [address] 4706 Jun, Acute cystitis with hematuria N30.01 [address] [address]- 6138 May, [place] [id number] [place] [address] 89811- 9976 Apr, Diabetes mellitus without mention of complication, type I [ juvenile type], not stated as uncontrolled 250.01 ; Gastroparesis due to DM 250.60 ; Contraception management V25.9 and Renal insufficiency 593.9 [id number] [place] [address] Apr, [id number] [place] [address] 24[address]- [address]369 Apr, [id number] [place] [address] Mar, [id number] [place] [address] 12131[address]22 Mar, Hyperlipidemia 272.4 and Hypertensive heart and chronic kidney disease, benign, without heart failure and with chronic kidney disease stage I through stage IV, or unspecified 404.10 [id number], [place] [address] Mar, Hyperlipidemia 272.4 ; Hyponatremia 276.1 ; 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 [id number] [address] Mar, Amenorrhea 626.0 [address] [facility] [id number], [place] [address] 15 Jan, 2015 Amenorrhea 626.0 ; Routine gynecological examination V72.31 and Screen for STD (sexually transmitted disease) V74.5 [facility] [address] [address] 11 Jan, 2015 Amenorrhea 626.0 [facility] [address], [place] [address] 08 Jan, 2015 Routine gynecological examination V72.31 ; Screen for STD ( sexually transmitted disease) V74.5 ; Pap test, as part of routine gynecological examination V76.2 ; Breast cancer screening V76.10 and Amenorrhea 626.0 [facility] [address] [address] December, [facility] [address], [place] [address] Dec, [facility] [address], [place] [address] Dec, [facility] [address], [place] [address] 30 Oct, 2014 [facility] [address] [address] Oct, [facility] [address] [address] Oct, [facility] [address], [place] [address] Oct, [facility] [address], [place] [address] Oct, [facility] [place] [facility] [address] [id number] [place] [address] Oct, [facility] [place] [facility] [address] [id number] [place] [address] 8910 Oct, [facility] [place] [facility] [address] [id number] [place] [address] 57[address] Oct, [facility] [place] [facility] [address] [id number] [place] [address] 8977 Oct, [facility] [place] [facility] [address] [id number] [place] [address] Oct, [facility] [place] [facility] [address] [id number] [place] [address] 2282 Oct, [facility] [place] [facility] [address] [id number] [place] [address] Sep, [facility] [place] [facility] [address] [id number] [place] [address] 6[address] Sep, [facility] [place] [facility] [address] [id number] [place] [address] 1908 Sep, [facility] [place] [facility] [address] [id number] [place] [address]- 3556 Sep, [facility] [place] [facility] [address] [id number] [place] [address]- 3[address] Sep, [facility] [place] [facility] [address] [id number], [place] [address] Sep, [facility] [place] [facility] [address] [id number] [address] Sep, [facility] [place] [facility] [address] [id number] [place] [address]- 9409 Sep, [facility] [place] [facility] [address] [id number] [address] 9[address] Sep, [facility] [place] [facility] [address] [id number] [place] [address]- 0477 Sep, [facility] [place] [facility] [address] [id number] [place] [address]- 4574 Sep, [facility] [place] [facility] [address] [id number] [place] [address]- 2376 Sep, [facility] [place] [facility] [address] [id number] [place] [address]- 8506 Sep, [facility] [place] [facility] [address] [id number] [place] [address]- 0142 Sep, [facility] [place] [facility] [address] [id number] [place] [address]- 5617 Sep, [facility] [place] [facility] [address] [id number] [place] [address]- 50[address] Sep, [facility] [place] [facility] [address] [id number] [place] [address]- 2580 Sep, [facility] [place] [facility] [address] [id number] [place] [address]- 3552 Sep, [facility] [place] [facility] [address] [id number] [place] [address]- 8966 Sep, [facility] [place] [facility] [address] [id number] [place] [address]- 9918 Sep, [facility] [place] [facility] [address] [id number] [place] [address]- 4362 Aug, [facility] [place] [facility] [address] [id number] [place] [address]- 2669 Aug, [facility] [place] [facility] [address] [id number] [place] [address]- 2619 Aug, [facility] [place] [facility] [address] [id number] [place] [address]- 5400 Aug, [facility] [place] [facility] [address] [id number] [place] [address] 08 Aug, 2014 [facility] [place] [facility] [address] [id number] [place] [address]- 0961 Aug, [facility] [place] [facility] [address] [id number] [place] [address] Aug, [facility] [place] [facility] [address] [id number] [place] [address] Aug, [facility] [place] [facility] [address] [id number] [place] [address] Aug, [facility] [place] [facility] [address] [id number] [place] [address]- 9477 Aug, [facility] [place] [facility] [address] [id number] [place] [address]- 9400 Aug, [facility] [place] [facility] [address] [id number] [place] [address]- 6119 Aug, [facility] [place] [facility] [address] [id number] [place] [address]- 2227 Jul, [facility] [place] [facility] [address] [id number] [place] [address]- 9865 Jul, [facility] [place] [facility] [address] [id number] [place] [address]- 1101 Jul, [facility] [place] [facility] [address] [id number], [place] [address] 1028 Jul, [facility] [place] [facility] [address] [id number], [place] [address] 7668 Jul, [facility] [place] [facility] [address] [id number] [place] [address]- 5341 Jul, [facility] [place] [facility] [address] [id number], [place] [address] 5840 Jul, [facility] [place] [facility] [address] [id number] [address]- 0780 Jul, [facility] [place] [facility] [address] [id number] [place] [address]- 0186 Jul, [facility] [place] [facility] [address] [id number] [place] [address]- 4104 Jul, [facility] [place] [facility] [address] [id number] [place] [address]- [address] Jun, [facility] [place] [facility] [address] [id number] [place] [address]- 6526 Jun, [facility] [place] [facility] [address] [id number] [place] [address]- 6244 Jun, [facility] [place] [facility] [address] [id number] [place] [address]- 9727 Jun, [facility] [place] [facility] [address] [id number] [place] [address]- 8577 Jun, [facility] [place] [facility] [address] [id number] [place] [address]- 3275 Jun, [facility] [place] [facility] [address] [id number] [place] [address]- 0438 15 Jun, 2014 [facility] [place] [facility] [address] [id number] [place] [address]- 2448 15 Jun, 2014 [facility] [place] [facility] [address] [id number] [place] [address]- 6758 22 May, 2014 [facility] [place] [facility] [address] [id number] [place] [address]- 3252 22 May, 2013 [facility] [place] [facility] [address] [id number] [place] [address]- 5377 18 May, 2013 [facility] [place] [facility] [address] [id number] [place] [address]- 8793 18 May, 2013 [facility] [place] [facility] [address] [id number] [place] [address]- 0393 09 Sep, 2013 [facility] [place] [facility] [address] [id number] [place] [address]- 9004 May, [facility] [place] [facility] [address] [id number] [place] [address]- 0749 May, [facility] [place] [facility] [address] [id number] [place] [address] May, [facility] [place] [facility] [address] [id number] [place] [address]- 4759 Apr, [facility] [place] [facility] [address] [id number] [place] [address]- 5802 Apr, [facility] [place] [facility] [address] [id number] [place] [address]- 9030 Apr, [facility] [place] [facility] [address] [id number] [place] [address]- 7624 Apr, [facility] [place] [facility] [address] [id number] [place] [address]- 1331 Mar, [facility] [place] [facility] [address] [id number] [place] [address]- 9053 Mar, [facility] [place] [facility] [address] [id number] [place] [address]- 4634 Mar, [facility] [place] [facility] [address] [id number] [place] [address]- 5738 Mar, [facility] [place] [facility] [address] [id number] [place] [address]- 9693 Mar, [facility] [place] [facility] [address] [id number] [place] [address]- 1433 Mar, [facility] [place] [facility] [address] [id number] [place] [address]- 7407 Jan, [facility] [place] [facility] [address] [id number] [place] [address]- 9327 Jan, [facility] [place] [facility] [address] [id number] [place] [address]- 0117 Jan, [facility] [place] [facility] [address] [id number] [place] [address]- 3340 Jan, [facility] [place] [facility] [address] [id number] [place] [address]- 2382 Jan, [facility] [place] [facility] [address] [id number] [place] [address]- 2159 Jan, [facility] [place] [facility] [address] [id number] [place] [address]- 5860 Jan, [facility] [place] [facility] [address] [id number] [place] [address]- 3630 Jan, [facility] [place] [facility] [address] [id number] [place] [address]- 6012 Jan, [facility] [place] [facility] [address] [id number] [place] [address]- 7233 Jan, [facility] [place] [facility] [address] [id number] [place] [address]- 9728 Jan, [facility] [place] [facility] [address] [id number] [place] [address]- 8620 Jan, [facility] [place] [facility] [address] [id number] [place] [address]- 8426 December, [facility] [place] [facility] [address] [id number] [place] [address]- 6319 December, [facility] [place] [facility] [address] [id number] [place] [address]- 5829 December, [facility] [place] [facility] [address] [id number] [place] [address]- 5144 December, [facility] [place] [facility] [address] [id number] [place] [address]- 4468 Dec, [facility] [place] [facility] [address] [id number] [place] [address]- 2510 Dec, [facility] [place] [facility] [address] [id number] [place] [address]- 3340 Dec, [facility] [place] [facility] [address] [id number] [place] [address]- 7693 Dec, [facility] [place] [facility] [address] [id number] [place] [address]- 3312 Dec, [facility] [place] [facility] [address] [id number] [place] [address] Dec, [facility] [place] [facility] [address] [id number] [place] [address]- 0990 Dec, [facility] [place] [facility] [address] [id number] [place] [address]- 3331 Dec, [facility] [place] [facility] [address] [id number] [place] [address]- 5772 Dec, [facility] [place] [facility] [address] [id number] [place] [address]- 1638 Dec, [facility] [place] [facility] [address] [id number] [place] [address]- 6532 Dec, [facility] [place] [facility] [address] [id number] [place] [address]- 2391 Dec, [facility] [place] [facility] [address] [id number] [place] [address]- 0084 Dec, [facility] [place] [facility] [address] [id number] [place] [address]- 9405 Dec, [facility] [place] [facility] [address] [id number] [place] [address]- 7678 Oct, [facility] [place] [facility] [address] [id number] [place] [address]- 3418 Oct, [facility] [place] [facility] [address] [id number] [place] [address]- 4944 Oct, [facility] [place] [facility] [address] [id number] [place] [address]- 5683 Oct, [facility] [place] [facility] [address] [id number] [place] [address]- 3831 Oct, [facility] [place] [facility] [address] [id number] [place] [address]- 8011 Oct, [facility] [place] [facility] [address] [id number] [place] [id number] Oct, [facility] [place] [facility] [address] [id number] [place] [address]- 6120 Oct, [facility] [place] [facility] [address] [id number] [place] [address]- 0496 Oct, [facility] [place] [facility] [address] [id number] [place] [address]- 7650 Oct, [facility] [place] [facility] [address] [id number] [place] [address]- 1490 Sep, [facility] [place] [facility] [address] [id number] [place] [address]- 5063 Sep, [facility] [place] [facility] [address] [id number] [place] [address]- 1910 Sep, [facility] [place] [facility] [address] [id number] [place] [address]- 6851 Sep, [facility] [place] [facility] [address] [id number] [place] [address]- 1334 Sep, [facility] [place] [facility] [address] [id number] [place] [address]- 5316 Sep, [facility] [place] [facility] [address] [id number], [place] [address]- 1147 Aug, [facility] [place] [facility] [address] [id number] [place] [address]- 7213 Aug, [facility] [place] [facility] [address] [id number] [place] [address]- 4716 Jul, [facility] [place] [facility] [address] [id number] [place] [address]- 2721 Jul, [facility] [place] [facility] [address] [id number], [place] [address]- 8[address] Jul, [facility] [address] [facility] [id number] [place] [address]- 5526 Jul, [facility] [address] [facility] [id number], [place] [address]- 5574 Jul, IMMUNIZATIONS No Known Immunizations SOCIAL HISTORY Never Assessed REASON FOR VISIT Subab-F/U PLAN OF CARE Activity Details Follow Up 1 Week Reason: VITAL SIGNS MEDICATIONS Unknown Medications RESULTS No Results PROCEDURES Procedure Date Ordered Result Body Site Psychotherapy, patient &/family, 30 minutes, established patient November 30, 2016 INSTRUCTIONS MEDICATIONS ADMINISTERED No Known Medications MEDICAL (GENERAL) HISTORY Type Description Date Medical History Type 1 Diabetes mellitus Medical History hx of hypertension Medical History gastroparesis Medical History hx of renal insufficiency 09/2014 Medical History Unspecified renal failure Medical History Gastroparesis due to DM Surgical History oral surgery at age 16 Hospitalization History Gastroperisis 2011
--- OUTSIDE RECORDS SUMMARY | 2018-08-30 21:29 | XMS REPORT ---
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 Active Assessment Chronic kidney disease, stage 3 N18.3 Active Problem Health examination of defined subpopulation V70.5 Active Problem Unspecified constipation 564.00 Active Assessment Recurrent UTI N39.0 Active Problem Abdominal pain, generalized 789.07 Active Problem Elevated blood pressure reading without diagnosis of hypertension 796.2 Active Problem Diabetes mellitus without mention of complication, type I [juvenile type], not stated as uncontrolled 250.01 Active Medications Medication Code System Code Instructions Start Date End Date Status Dosage Enalapril Maleate [facility] [address]-01 5 MG Orally Twice a day 1 tablet Vitamin D (Ergocalciferol) [facility] [address]-09 85166 UNIT Orally TWICE WEEKLY X8 WKS-AFTER 8 WEEKS TAKEN OTC VITAMIN D 2000 IU March 30, 2015 1 capsule Tylenol 8 Hour [facility] [address]-78 not defined Vitamin B12 [facility] [address]-17 not defined Fish Oil [facility] [address]-03 1000 MG Orally Once a day 2 capsule Reglan [facility] [address]-23 5 MG Orally 4 times a day prn Apr 28, 2015 1 tablet Apri [facility] [address]-29 0.15-30 MG-MCG Orally Once a day Apr 28, 2015 1 tablet Humalog [facility] [address]-38 100 UNIT/ML Subcutaneous pump as per pump inject Units by Subcutaneous route every hour per insulin pump Zofran ODT [facility] [address]-80 4 MG Orally 3 times a day, prn Sep 17, 2014 take 1 tablets by Oral route every 8 hours PRN Nausea or Vomiting Lovastatin [facility] [address]-05 20 MG Orally Once a day March 30, 2015 1 tablet with a meal Procedures Procedure Coding System Code Date URINE CULTURE/COLONY COUNT CPT-4 74731 Jul 26, 2015 COMPREHEN METABOLIC PANEL CPT-4 45374 Jul 26, 2015 URINALYSIS, AUTO, W/O SCOPE CPT-4 79149 Jul 26, 2015 GLYCATED HEMOGLOBIN TEST CPT-4 95858 Jul 26, 2015 COMPLETE CBC W/AUTO DIFF WBC CPT-4 63624 Jul 26, 2015 Office Visit, Est Pt., Level 4 CPT-4 43478 Jul 26, 2015 VENIPUNCT, ROUTINE* CPT-4 16399 Jul 26, 2015 Vital Signs Date/Time: Jul 26, 2015 Temperature 97.7 F Weight 177.2 lbs Height 66 in BMI 28.60 Index Blood Pressure Diastolic 86 mmHg Blood Pressure Systolic 122 mmHg Cardiac Monitoring Heart Rate 88 bpm Results Name Result Date Reference Range Unit Abnormality Flag UA LONG DIP (IN HOUSE) ----PAULINO negative 20150726 ----NIT negative 20150726 ----SG 1.020 20150726 ----KET trace 20150726 ----GEE 1+ 20150726 ----GLU negative 20150726 ----Odor none 20150726 ----pH 5.5 20150726 ----BLO trace-lysed 20150726 ----URO 1.0 20150726 ----Protein 3+ 20150726 ----Lot # [id number] ----Exp date 20150726 ----Clarity clear 20150726 ----Color dark yellow 20150726 ROUTINE VENIPUNCTURE Summary Purpose eClinicalWorks Submission
--- OUTSIDE RECORDS SUMMARY | 2018-08-30 21:30 | XMS REPORT | Continuity of Care Document ---
Demographics Preferred Language Unknown Marital Status Unknown Anabaptism Affiliation Unknown Race Unknown Ethnic Group Unknown Author Author [employer] [facility] [employer] Address Unknown Phone Unavailable Allergies Active Description Code Type Severity Reaction Onset Reported/Identified Relationship to Patient Clinical Status Yes CIPRO CIPRO MODERATE Yes PENICILLINS PENICILLINS SEVERE Yes SULFA (SULFONAMIDE ANTIBIOTICS) SULFA (SULFONAMIDE A SEVERE Medications Medication Packaging Start Date Stop Date Route Dosage Sig NORMAL SALINE 1000CC IV BAG INJ 0.9 % (NS 1000CC IV BAG) ml 12/19/2016 12/19/2016 ONCE&1308 Problems Date Dx Coded Attending Type Code Diagnosis Diagnosed By 12/19/2016 Fara Cisse 250.01 12/19/2016 Fara Cisse 300.00 ANXIETY STATE, UNSPECIFIED 12/19/2016 Fara Cisse A 593.9 12/19/2016 Fara Cisse 599.0 URINARY TRACT INFECTION, SITE NOT SPECIFIED 12/19/2016 Fara Cisse W 780.79 OTHER MALAISE AND FATIGUE 12/19/2016 Fara Cisse W 786.50 UNSPECIFIED CHEST PAIN 12/19/2016 Fara Cisse E10.9 TYPE 1 DIABETES MELLITUS WITHOUT COMPLICATIONS 12/19/2016 Fara Cisse F41.9 ANXIETY DISORDER, UNSPECIFIED 12/19/2016 Fara Cisse A N28.9 DISORDER OF KIDNEY AND URETER, UNSPECIFIED 12/19/2016 Fara Cisse N39.0 URINARY TRACT INFECTION, SITE NOT SPECIFIED 12/19/2016 Fara Cisse R07.9 CHEST PAIN, UNSPECIFIED 12/19/2016 Fara Cisse W R53.83 OTHER FATIGUE Procedures There is no data. Results Test Result Range Thyroid Stimulating Hormone - 12/19/16 12:19 TSH 0.99 mIU/mL 0.32-5.00 Urine Culture - 12/19/16 12:19 PRELIM CULTURE RESULTS 20,000-50,000 Gram Positive Mixed Snehal FINAL CULTURE RESULTS Probable Skin Contaminant No Further Workup done MEDIA PLATED Setup at 12:49 on 12/19/2016 CULTURE SOURCE void Pathology Report - 04/26/17 14:00 . Comment . Comment . Comment . Comment . Comment . Comment . Comment PATHOLOGY REPORT - 04/26/17 14:00 . NRG . NRG . NRG . NRG . NRG . NRG . NRG CBC With Differential/Platelet - 05/20/17 11:24 WBC 7.9 x10E3/uL 3.4-10.8 RBC 5.01 x10E6/uL 3.77-5.28 Hemoglobin 15.4 g/dL 11.1-15.9 Hematocrit 45.8 % 34.0-46.6 MCV 91 fL 79-97 MCH 30.7 pg 26.6-33.0 MCHC 33.6 g/dL 31.5-35.7 RDW 13.7 % 12.3-15.4 Platelets 220 x10E3/uL 150-379 Neutrophils 48 % Lymphs 35 % Monocytes 7 % Eos 9 % Basos 1 % Neutrophils (Absolute) 3.8 x10E3/uL 1.4-7.0 Lymphs (Absolute) 2.7 x10E3/uL 0.7-3.1 Monocytes(Absolute) 0.6 x10E3/uL 0.1-0.9 Eos (Absolute) 0.7 x10E3/uL 0.0-0.4 Baso (Absolute) 0.1 x10E3/uL 0.0-0.2 Immature Granulocytes 0 % Immature Grans (Abs) 0.0 x10E3/uL 0.0-0.1 Urinalysis, Complete - 05/20/17 11:24 Specific [place] 1.016 1.005-1.030 pH 6.0 5.0-7.5 Urine-Color Yellow Yellow Appearance Cloudy Clear WBC Esterase 3+ Negative Protein 2+ Negative/Trace Glucose 1+ Negative Ketones Negative Negative Occult Blood 1+ Negative Bilirubin Negative Negative Urobilinogen,Semi-Qn 0.2 mg/dL 0.2-1.0 Nitrite, Urine Negative Negative Microscopic Examination See below: Microscopic Examination - 05/20/17 11:24 WBC >30 /hpf 0 - 5 RBC 3-10 /hpf 0 - 2 Epithelial Cells (non renal) 0-10 /hpf 0 - 10 Mucus Threads Present Not Estab. Bacteria Moderate None seen/Few Renal Panel (10) - 05/20/17 11:24 Glucose, Serum 191 mg/dL 65-99 BUN 31 mg/dL 6-20 Creatinine, Serum 2.17 mg/dL 0.57-1.00 eGFR If NonAfricn Am 29 mL/min/1.73 >59 eGFR If Africn Am 34 mL/min/1.73 >59 BUN/Creatinine Ratio 14 9- Sodium, Serum 139 mmol/L 134-144 Potassium, Serum 4.6 mmol/L 3.5-5.2 Chloride, Serum 98 mmol/L 96-106 Carbon Dioxide, Total 24 mmol/L 18-29 Calcium, Serum 9.8 mg/dL 8.7-10.2 Albumin, Serum 4.2 g/dL 3.5-5.5 Phosphorus, Serum 3.9 mg/dL 2.5-4.5 Lipid Panel - 05/20/17 11:24 Cholesterol, Total 254 mg/dL 100-199 Triglycerides 186 mg/dL 0-149 HDL Cholesterol 65 mg/dL >39 VLDL Cholesterol Jarod 37 mg/dL 5-40 LDL Cholesterol Calc 152 mg/dL 0-99 Prot+CreatU (Random) - 05/20/17 11:24 Creatinine, Urine 81.8 mg/dL Not Estab. Protein,Total,Urine 87.5 mg/dL Not Estab. Protein/Creat Ratio 1070 mg/g creat 0-200 Vitamin D, 25-Hydroxy - 05/20/17 11:24 Vitamin D, 25-Hydroxy 31.4 ng/mL 30.0-100.0 PTH, Intact - 05/20/17 11:24 PTH, Intact 22 pg/mL 15-65 RENAL PROFILE - 05/20/17 11:24 Glucose, Serum 191 mg/dL 65-99 BUN 31 mg/dL 6-20 Creatinine, Serum 2.17 mg/dL 0.57-1.00 eGFR If NonAfricn Am 29 mL/min/1.73 >59 eGFR If Africn Am 34 mL/min/1.73 >59 BUN/Creatinine Ratio 14 9- Sodium, Serum 139 mmol/L 134-144 Potassium, Serum 4.6 mmol/L 3.5-5.2 Chloride, Serum 98 mmol/L 96-106 Carbon Dioxide, Total 24 mmol/L 18-29 Calcium, Serum 9.8 mg/dL 8.7-10.2 Albumin, Serum 4.2 g/dL 3.5-5.5 Phosphorus, Serum 3.9 mg/dL 2.5-4.5 RENAL PROFILE - 07/22/17 12:12 GLUCOSE 148 mg/dL 65-99 UREA NITROGEN (BUN) 26 mg/dL 7-25 CREATININE 1.90 mg/dL 0.50-1.10 eGFR NON-AFR. LITHUANIAN 34 mL/min/1.73m2 > OR=60 eGFR 39 mL/min/1.73m2 > OR=60 BUN/CREATININE RATIO 14 (calc) 6-22 SODIUM 140 mmol/L 135-146 POTASSIUM 4.4 mmol/L 3.5-5.3 CHLORIDE 104 mmol/L 98-110 CARBON DIOXIDE 29 mmol/L 20-31 CALCIUM 9.5 mg/dL 8.6-10.2 ALBUMIN 4.3 g/dL 3.6-5.1 PHOSPHATE ( PHOSPHORUS) 3.0 mg/dL 2.5-4.5 LIVER PANEL (LFT) - 07/22/17 12:12 PROTEIN, TOTAL 6.9 g/dL 6.1-8.1 ALBUMIN 4.3 g/dL 3.6-5.1 GLOBULIN 2.6 g/dL (calc) 1.9-3.7 ALBUMIN/GLOBULIN RATIO 1.7 (calc) 1.0-2.5 BILIRUBIN, TOTAL 0.6 mg/dL 0.2-1.2 ALKALINE PHOSPHATASE 54 U/L 33-115 AST 18 U/L 10-30 ALT 15 U/L 6-29 BILIRUBIN, DIRECT 0.1 mg/dL < OR=0.2 BILIRUBIN, INDIRECT 0.5 mg/dL (calc) 0.2-1.2 A1C - 04/01/18 10:29 HEMOGLOBIN A1c 7.5 % of total Hgb <5.7 PDM - AMPHETAMINES W/ REFLEX d/l ISOMERS - 05/14/18 10:20 Prescribed Drug 1 Buprenorphine NRG COMMENT NRG Amphetamine NEGATIVE ng/mL <250 medMATCH Amphetamine CONSISTENT NRG Methamphetamine NEGATIVE ng/mL <250 medMATCH Methamphetamine CONSISTENT NRG Encounters ACCT No. Visit Date/Time Discharge Status Pt. Type Provider Facility Loc./Unit Complaint [id number] 05/21/2017 11:09:00 Document Registration [id number] 12/19/2016 12:00:00 12/19/2016 13:58:00 [facility] [id number] 12/19/2016 13:09:08 Document Registration [id number] 05/01/2017 03:07:00 Document Registration [id number] 07/23/2018 17:30:00 07/23/2018 23:59:59 [facility] Nic MILLER MD, NO[facility] [id number] 05/14/2018 09:30:00 Document Registration [id number] 04/01/2018 08:40:00 Document Registration [id number] 07/22/2017 12:00:00 Document Registration [id number] 05/20/2017 11:20:00 Document Registration [id number] 04/26/2017 13:20:00 Document Registration
--- OUTSIDE RECORDS SUMMARY | 2018-08-30 21:30 | XMS REPORT ---
Author Author ALVIN CARMEN [facility] Address [address] [place] [address] Care Team Providers Care Dosier Operator Name Role Phone CARMENALVIN Unavailable PROBLEMS Type Condition ICD9-CM Code SCR38-JI Code Onset Dates Condition Status SNOMED Code Problem Essential hypertension I10 Active 84029827 Problem Addiction to drug F19.20 Active 768088261 Problem Diarrhea, unspecified type R19.7 Active 03819412 Problem Mild episode of recurrent major depressive disorder F33.0 Active 156760322 Problem Right acute serous otitis media, recurrence not specified H65.01 Active 969129036 Problem Other group home (current) drug therapy Z79.899 Active 605238152 Problem Encounter for therapeutic drug level monitoring Z51.81 Active 207846570 Problem Opioid use disorder, severe, in sustained remission F11.21 Active 94188041 Problem Irritable bowel syndrome with constipation K58.1 Active 025990310 Problem 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 Active 20578472 Problem Gastroparesis K31.84 Active 867062326 Problem Acute bilateral low back pain without sciatica M54.5 Active 148352004 Problem Chronic kidney disease, stage 3 N18.3 Active 310376540 Problem Dysthymia F34.1 Active 94479891 Problem Recurrent UTI N39.0 Active 681052034 Problem Mixed hyperlipidemia E78.2 Active 715667280 ALLERGIES Unknown Allergies SOCIAL HISTORY No smoking Hx information available PLAN OF CARE VITAL SIGNS MEDICATIONS Medication Instructions Dosage Frequency Start Date End Date Duration Status Suboxone 8-2 MG Sublingual Once a day 1 film under the tongue and allow to dissolve 24h Aug, 6 days Active RESULTS No Results PROCEDURES No Known procedures IMMUNIZATIONS No Known Immunizations
--- OUTSIDE RECORDS SUMMARY | 2018-08-30 21:30 | XMS REPORT ---
Author Author NOEMY MORGAN Organization [facility] Address [address] [place] [address] Care Team Providers Care Core Mounter Name Role Phone NOEMY MORGAN Unavailable PROBLEMS Type Condition ICD9-CM Code PLQ66-SI Code Onset Dates Condition Status SNOMED Code Problem Essential hypertension I10 Active 00375824 Problem Addiction to drug F19.20 Active 104234318 Problem Diarrhea, unspecified type R19.7 Active 91399582 Problem CHI I (cervical intraepithelial neoplasia I) N87.0 Active 509972035 Problem Right acute serous otitis media, recurrence not specified H65.01 Active 567329977 Problem Irritable bowel syndrome with constipation K58.1 Active 464670469 Problem Encounter for therapeutic drug level monitoring Z51.81 Active 833522178 Problem Mild episode of recurrent major depressive disorder F33.0 Active 634830983 Problem Opioid use disorder, severe, in sustained remission F11.21 Active 07441697 Problem Long-term use of high-risk medication Z79.899 Active 672088164 Problem Recurrent UTI N39.0 Active 145308344 Problem Gastroparesis K31.84 Active 693725296 Problem Acute bilateral low back pain without sciatica M54.5 Active 010844824 Problem 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 Active 94877437 Problem Mixed hyperlipidemia E78.2 Active 371820300 Problem Chronic kidney disease, stage 3 N18.3 Active 313777720 Problem Dysthymia F34.1 Active 01607652 ALLERGIES No Information ENCOUNTERS Encounter Location Date Diagnosis [facility] [address] [facility] [id number] [address] Dec, [facility] [address] [facility] [id number] [address] Oct, [facility] [address] [facility] [id number] [address] Oct, Opioid use disorder, severe, in early remission F11.21 [facility] [address] [address] Oct, [facility] [id number] [place] [address] 08261- 5880 Oct, Opioid use disorder, severe, in early remission F11.21 [facility] [id number] [place] [address] 63479- 6062 Oct, [facility] [place] [id number] [place] [address] 15739- 7137 Oct, [facility] [address] [place] [address] Oct, Opioid use disorder, severe, in sustained remission F11.21 [facility] [id number] [place] [address] 62983- 0139 Sep, [facility] [id number] [place] [address] 98644- 0008 Sep, [facility] [id number] [place] [address] 01833- 3537 Sep, Opioid use disorder, severe, in early remission F11.21 [facility] [id number] [place] [address] 98199- 8814 Aug, Opioid use disorder, severe, in early remission F11.21 [facility] [id number] [place] [address] 93083- 0776 Jul, [facility] [id number] [place] [address] 12417- 6722 Jul, Chronic kidney disease, stage 3 N18.3 ; Dysthymia F34.1 and Opioid use disorder, severe, in sustained remission F11.21 [facility] [address] [place] [address] Jul, Opioid use disorder, severe, in sustained remission F11.21 [facility] [id number] [place] [address] 99854- 4256 Jul, Long-term use of high-risk medication Z79.899 and Chronic kidney disease, stage 3 N18.3 [facility] [id number] [place] [address] 01527- 7520 Jul, Opioid use disorder, severe, in early remission F11.21 [facility] [id number] [place] [address] 76364- 4124 Jul, [facility] [id number] [place] [address] 81855- 9507 Jun, [facility] [id number] [place] [address] 42606- 8735 Jun, [facility] [id number] [place] [address] 92460- 8149 Jun, Opioid use disorder, moderate, dependence F11.20 and Opioid use disorder, severe, in early remission F11.21 [facility] [id number] [place] [address] 46027- 0601 Jun, [facility] [id number] [place] [address] 98968- 4512 Jun, Long-term use of high-risk medication Z79.899 [facility] [id number] [place] [address] 43537- 6725 Jun, CHI I (cervical intraepithelial neoplasia I) N87.0 [facility] [id number] [place] [address] 68361- 9065 May, Opioid use disorder, severe, in early remission F11.21 [facility] [id number] [place] [address] 13997- 3537 18 May, 2017 Chronic kidney disease, stage 3 N18.3 [facility] [id number] [place] [address] 85605- 1966 14 May, 2017 Chronic kidney disease, stage 3 N18.3 [place] [address] [place] [address] May, Opioid use disorder, severe, in sustained remission F11.21 [facility] [id number] [place] [address] 48511- 9435 Apr, LGSIL on Pap smear of cervix R87.612 [facility] [address] [place] [address] Apr, [facility] [address] 12[address]- 9831 Apr, Opioid use disorder, severe, in early remission F11.21 [facility] [id number] [place] [address] 74935- 7067 Apr, Opioid use disorder, severe, in early remission F11.21 [facility] [id number] [place] [address] 72961- 0669 Apr, Opioid use disorder, severe, in early remission F11.21 [facility] [id number] [place] [address] 70904- 2847 Apr, Opioid use disorder, severe, in early remission F11.21 [facility] [id number] [place] [address] 54978- 9805 14 Apr, 2017 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 [facility] [id number] [place] [address] 67818- 2594 Apr, Opioid use disorder, severe, in early remission F11.21 [facility] [address] [place] [address] Apr, Opioid use disorder, severe, in sustained remission F11.21 [facility] [id number] [place] [address] 85028- 3990 09 Apr, 2017 Opioid use disorder, severe, in early remission F11.21 [facility] [id number] [place] [address] 88364- 9558 02 Apr, 2017 Mild episode of recurrent major depressive disorder F33.0 and Right acute serous otitis media, recurrence not specified H65.01 [place] [address] [address]239 Mar, [facility] [place] [address] [address] 9456 Mar, Opioid use disorder, severe, in early remission F11.21 [facility] [address] [address] 5136 Mar, [facility] [address] [place] [address] Mar, Opioid use disorder, severe, in sustained remission F11.21 [facility] [address] [place] [address] Mar, Opioid use disorder, severe, in sustained remission F11.21 [facility] [address] [place] [address] 14793- 7712 Mar, Opioid use disorder, severe, in early remission F11.21 [facility] [id number] [place] [address] 84995- 3674 Jan, Opioid use disorder, severe, in early remission F11.21 [facility] [address] [place] [address] Jan, Opioid use disorder, severe, in sustained remission F11.21 [facility] [address] [place] [address] Jan, Opioid use disorder, severe, in sustained remission F11.21 [facility] [address] [address] 7143 Jan, Opioid use disorder, severe, in early remission F11.21 [facility] [address] [place] [address] Jan, Opioid use disorder, severe, in sustained remission F11.21 [facility] [id number] [place] [address] 08237- 3616 December, Opioid use disorder, severe, in early remission F11.21 [facility] [address] [place] [address] December, Opioid use disorder, severe, in sustained remission F11.21 [facility] [address] [place] [address] 93308- 5468 17 Dec, 2016 Routine gynecological examination Z01.419 and Chronic kidney disease, stage 3 N18.3 [facility] [id number] [place] [address] 25953- 8162 December, Chronic kidney disease, stage 3 N18.3 ; 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 ; Gastroparesis K31.84 ; Essential hypertension I10 and Irritable bowel syndrome with constipation K58.1 [facility] [address] [place] [address] December, Opioid use disorder, severe, in sustained remission F11.21 [facility] [id number] [place] [address] 49047- 2801 December, Opioid use disorder, severe, in early remission F11.21 [facility] [address] [place] [address] December, Opioid use disorder, severe, in sustained remission F11.21 [facility] [address] [place] [id number] [place] [address] 12508- 5881 December, Encounter for therapeutic drug level monitoring Z51.81 [facility] [address] [place] [address] December, Opioid use disorder, severe, in sustained remission F11.21 [facility] [address] [place] [address] Dec, Opioid use disorder, severe, in sustained remission F11.21 [facility] [address] [place] [id number] [place] [address] 33120- 3482 Dec, Opioid use disorder, severe, in early remission F11.21 [facility] [address] [place] [id number] [place] [address] 84436- 4334 Dec, [facility] [address] [place] [address] Dec, Opioid use disorder, severe, in sustained remission F11.21 [facility] [address] [place] [id number] [place] [address] 85928- 8847 Dec, Opioid use disorder, severe, in early remission F11.21 [facility] [address] [place] [address] 06 Dec, 2016 Opioid use disorder, severe, in sustained remission F11.21 [facility] [id number] [place] [address] 07430- 7066 Dec, 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 [facility] [id number] [place] [address] 26846- 0456 Dec, Opioid use disorder, severe, in sustained remission F11.21 ; Encounter for therapeutic drug level monitoring Z51.81 and 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 [facility] [address] [place] [address] Oct, Opioid use disorder, severe, in sustained remission F11.21 [facility] [id number] [place] [address] 35918- 0963 23 Oct, 2016 Opioid use disorder, severe, in early remission F11.21 [facility] [id number] [place] [address] 22596- 5691 15 Oct, 2016 [facility] [address] [place] [address] 15 Oct, 2016 Opioid use disorder, severe, in sustained remission F11.21 [facility] [id number] [place] [address] 19043- 4383 15 Oct, 2016 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 [facility] [id number] [place] [address] 63912- 9833 14 Oct, 2016 Routine gynecological examination Z01.419 [facility] [facility] [id number] [place] [address] 82985- 2293 07 Oct, 2016 Opioid use disorder, severe, in early remission F11.21 [facility] [id number] [place] [address] 15387- 1268 06 Oct, 2016 Opioid use disorder, severe, in early remission F11.21 [facility] [address] [address]- 3540 06 Oct, 2016 Opioid use disorder, severe, in early remission F11.21 [facility] [address] [place] [address] 02 Oct, 2016 Opioid use disorder, severe, in sustained remission F11.21 [facility] [address] [place] [address] 90149- 0546 24 Oct, 2016 Opioid use disorder, severe, in early remission F11.21 [facility] [id number] [place] [address] 46222- 1281 23 Oct, 2016 Opioid use disorder, severe, in early remission F11.21 [facility] [address] [place] [address] 22 Oct, 2016 Opioid use disorder, severe, in sustained remission F11.21 [facility] [id number] [place] [address] 29322- 9428 20 Oct, 2016 Opioid use disorder, severe, in sustained remission F11.21 ; Encounter for therapeutic drug level monitoring Z51.81 and 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 [facility] [id number] [place] [address] 96520- 8706 16 Oct, 2016 [facility] [address] [place] [address] 14 Oct, 2016 Opioid use disorder, severe, in early remission F11.21 [facility] [address] [place] [address] 10 Oct, 2016 Opioid use disorder, severe, in early remission F11.21 [facility] [address] [place] [address] 23300- 5760 09 Oct, 2016 Opioid use disorder, severe, in early remission F11.21 [facility] [address] [place] [address] 89408- 8598 08 Oct, 2016 [facility] [address] [address]- 1475 07 Oct, 2016 [facility] [address] [address]- 0044 Oct, [facility] [address] [place] [address] Oct, Opioid use disorder, severe, in early remission F11.21 [facility] [id number] [place] [address] 67846- 3997 Sep, Opioid use disorder, severe, in early remission F11.21 [facility] [address] [place] [address] Sep, Opioid use disorder, severe, in early remission F11.21 [facility] [id number] [place] [address] 63425- 2644 Sep, Opioid use disorder, severe, in early remission F11.21 ; Other alf (current) drug therapy Z79.899 and Encounter for therapeutic drug level monitoring Z51.81 [place] [id number] [place] [address] 68803- 3200 Sep, [facility] [id number] [place] [address] 83867- 2982 Sep, [facility] [address] [place] [id number] [place] [address] 31338- 9809 Sep, Opioid use disorder, severe, 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 ; 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 ; Chronic kidney disease, stage 3 N18.3 ; Essential hypertension I10 and Irritable bowel syndrome with constipation K58.1 [facility] [address] [place] [address] Sep, Opioid use disorder, severe, in early remission F11.21 [facility] [address] [place] [address] Sep, Opioid use disorder, severe, in early remission F11.21 [facility] [id number] [place] [address] 27262- 2291 Sep, Opioid use disorder, moderate, dependence F11.20 [facility] [address] [place] [id number] [place] [address] 19257- 5645 Sep, Opioid use disorder, moderate, dependence F11.20 [facility] [address] [place] [address] Sep, Opioid use disorder, severe, in early remission F11.21 [facility] [id number] [place] [address] 41213- 6386 Sep, Opioid use disorder, severe, in early remission F11.21 [facility] [address] [place] [address] Aug, Opioid use disorder, severe, in early remission F11.21 [facility] [id number] [place] [address] 04606- 9766 Aug, Opioid use disorder, moderate, dependence F11.20 [facility] [address] [address] Aug, Bug bite without infection, initial encounter W57.XXXA [facility] [address] [place] [address] 69704- 0797 Aug, Opioid use disorder, moderate, dependence F11.20 [facility] [address] [place] [address] Aug, [facility] [address] [place] [address] 15588- 5441 Aug, Opioid use disorder, severe, 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 ; 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 ; Encounter for therapeutic drug level monitoring Z51.81 and 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 [facility] [address] [place] [address] 15 Aug, 2016 [facility] [address] [place] [address] 71010- 4391 Aug, Opioid use disorder, moderate, dependence F11.20 ; Other alf (current) drug therapy Z79.899 and Encounter for therapeutic drug level monitoring Z51.81 [facility] [address] [place] [id number] [place] [address] 24129- 4323 Aug, [place] [address] [id number] [place] [address] 83884- 9779 Aug, Non-intractable vomiting with nausea, unspecified vomiting type R11.2 [facility] [id number] [place] [address] 95279- 8634 Aug, Opioid use disorder, moderate, dependence F11.20 and Non- intractable vomiting with nausea, unspecified vomiting type R11.2 [facility] [id number] [place] [address] 82967- 6303 Aug, [facility] [address] 63188- 3243 Aug, Opioid use disorder, moderate, dependence F11.20 [facility] [id number] [place] [address] 96598- 7438 Aug, [facility] [address] 51937- 7951 Jul, 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 and Opioid use disorder, moderate, dependence F11.20 [facility] [address] [place] [address] Jul, [facility] [id number] [place] [address] 88969- 5975 Jul, [facility] [id number] [place] [address] 54695- 4651 Jul, [facility] [id number] [place] [address] 21136- 6145 Jul, Addiction to drug F19.20 and Chronic kidney disease, stage 3 N18.3 [facility] [address] [place] [address] 17 Jul, 2016 Counseling on substance use and abuse Z71.89 [facility] [id number] [place] [address] 11603- 0326 Jul, Chronic kidney disease, stage 3 N18.3 [facility] [address] 37949- 6085 Jul, 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 ; Diarrhea, unspecified type R19.7 and Essential hypertension I10 [facility] [id number] [place] [address] 35937- 1229 Jul, [facility] [id number] [place] [address] 26744- 7830 Jun, [place] [address] 10025- 6342 Jun, [place] [address] 74147- 8008 Apr, 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 [facility] [id number] [place] [address] 64129- 2933 Apr, Sore throat and laryngitis J06.0 and Non-intractable vomiting with nausea, unspecified vomiting type R11.2 [facility] [place] [id number] [place] [address] 61069- 3356 Apr, [facility] [id number] [place] [address] 46635- 8646 Mar, [place] [id number] [place] [address] 99704- 4632 Jan, [facility] [id number] [place] [address] 91612- 5376 Jan, [facility] [id number] [place] [address] 98932- 0695 Jan, [place] [id number] [place] [address] 77730- 6660 December, 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 ; Gastroparesis K31.84 ; Mixed hyperlipidemia E78.2 ; Chronic kidney disease, stage 3 N18.3 ; Dysthymia F34.1 and Acute bilateral low back pain without sciatica M54.5 [place] [address] [place] [address]- 0633 December, [facility] [id number] [place] [address] 71053- 6501 December, [facility] [address] 67810- 6504 Aug, Depression F32.9 and Gastroparesis K31.84 [facility] [address] 55598- 7256 Aug, Gastroparesis K31.84 [facility] [address] 21220- 4595 Jul, Recurrent UTI N39.0 ; Chronic kidney disease, stage 3 N18.3 and 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 [facility] [address] 98553- 8086 Jul, [facility] [address] [id number] Jul, Dental examination Z01.20 and Dental caries K02.9 [facility] [address] 55901- 5799 Jul, [facility] [id number] [place] [address] 99245 -1450 Jul, Dysuria R30.0 ; Urinary tract infection N39.0 and Nausea R11.0 [facility] [id number] [place] [address] 68353- 5474 Jun, Dysuria R30.0 [facility] [id number] [place] [address] 37467- 5947 Jun, Dysuria R30.0 [facility] [address] 24744- 2409 Jun, Dysuria R30.0 [facility] [id number] [place] [address] [id number]- [address] Jun, [id number] [address] Jun, Acute cystitis with hematuria N30.01 [id number] [address] May, [id number] [place] [address] 96[address]- 1305 Apr, Diabetes mellitus without mention of complication, type I [ juvenile type], not stated as uncontrolled 250.01 ; Gastroparesis due to DM 250.60 ; Contraception management V25.9 and Renal insufficiency 593.9 [id number] [place] [address] 02171- 3974 Apr, [id number] [place] [address] 61073- 1027 Apr, [id number] [place] [address]64- [address]959 Mar, [id number] [place] [address] 20980- 5030 Mar, Hyperlipidemia 272.4 and Hypertensive heart and chronic kidney disease, benign, without heart failure and with chronic kidney disease stage I through stage IV, or unspecified 404.10 [id number] [address] Mar, Hyperlipidemia 272.4 ; Hyponatremia 276.1 ; 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 ; Hypertensive heart and chronic kidney disease, benign, without heart failure and with chronic kidney disease stage I through stage IV, or unspecified 404.10 ; Proteinuria 791.0 and Chronic kidney disease (CKD), stage III (moderate) 585.[id number] [place] [address] Mar, [id number] [place] [address] Mar, Elevated blood sugar level 790.29 [place] [id number] [address] Mar, Low grade squamous intraepithelial lesion (LGSIL) on cervical Pap smear 795.03 [facility] [address] [address] Mar, Amenorrhea 626.0 [facility] [address] [address] 15 Jan, 2015 Amenorrhea 626.0 ; Routine gynecological examination V72.31 and Screen for STD (sexually transmitted disease) V74.5 [facility] [address] [address] 11 Jan, 2015 Amenorrhea 626.0 [facility] [address] [address] 08 Jan, 2015 Routine gynecological examination V72.31 ; Screen for STD ( sexually transmitted disease) V74.5 ; Pap test, as part of routine gynecological examination V76.2 ; Breast cancer screening V76.10 and Amenorrhea 626.0 [facility] [address] [address] December, [facility] [address] [address] Dec, [facility] [address] [address] Dec, [facility] [address] [address] 30 Oct, 2014 [facility] [address] [address] [address] Oct, [facility] [address] [address] Oct, [facility] [address] [address] Oct, [facility] [address] [address] Oct, [facility] [place] [facility] [address] [id number] [place] [address] Oct, [facility] [place] [facility] [address] [id number] [place] [address]- 8902 Oct, [facility] [place] [facility] [address] [id number] [place] [address]- 2179 Oct, [facility] [place] [facility] [address] [id number] [place] [address]- 5115 Oct, [facility] [place] [facility] [address] [id number] [place] [address]- 1767 Oct, [facility] [place] [facility] [address] [id number] [place] [address]- 8883 Oct, [facility] [place] [facility] [address] [id number] [place] [address]- 1707 Sep, [facility] [place] [facility] [address] [id number] [place] [address]- 3046 Sep, [facility] [place] [facility] [address] [id number] [place] [address]- 4106 Sep, [facility] [place] [facility] [address] [id number] [place] [address]- 4820 Sep, [facility] [place] [facility] [address] [id number] [place] [address]- 4056 Sep, [facility] [place] [facility] [address] [id number] [address] 69[address] Sep, [facility] [place] [facility] [address] [id number] [address] Sep, [facility] [place] [facility] [address] [id number] [place] [address]- 2542 Sep, [facility] [place] [facility] [address] [id number] [address] Sep, [facility] [place] [facility] [address] [id number] [place] [address]- 4550 Sep, [facility] [place] [facility] [address] [id number] [place] [address]- 2160 Sep, [facility] [place] [facility] [address] [id number] [place] [address]- 2615 Sep, [facility] [place] [facility] [address] [id number] [place] [address]- 7742 Sep, [facility] [place] [facility] [address] [id number] [place] [address]- 9459 Sep, [facility] [place] [facility] [address] [id number] [place] [address]- 4190 Sep, [facility] [place] [facility] [address] [id number] [place] [address]- 9062 Sep, [facility] [place] [facility] [address] [id number] [place] [address]- 9423 Sep, [facility] [place] [facility] [address] [id number] [place] [address]- 6457 Sep, [facility] [place] [facility] [address] [id number] [place] [address]- 3517 Sep, [facility] [place] [facility] [address] [id number] [place] [address]- 2556 Sep, [facility] [place] [facility] [address] [id number] [place] [address]- 6077 Aug, [facility] [place] [facility] [address] [id number] [place] [address]- 2996 Aug, [facility] [place] [facility] [address] [id number] [place] [address]- 2464 Aug, [facility] [place] [facility] [address] [id number] [place] [address]- 2715 Aug, [facility] [place] [facility] [address] [id number] [place] [address]- [address]1 08 Aug, 2014 [facility] [place] [facility] [address] [id number] [place] [address]- 0838 Aug, [facility] [place] [facility] [address] [id number] [place] [address] Aug, [facility] [place] [facility] [address] [id number] [place] [address] Aug, [facility] [place] [facility] [address] [id number] [place] [address] Aug, [facility] [place] [facility] [address] [id number] [place] [address]- 8544 Aug, [facility] [place] [facility] [address] [id number] [place] [address]- 0520 Aug, [facility] [place] [facility] [address] [id number] [place] [address]- 7494 Aug, [facility] [place] [facility] [address] [id number] [place] [address]- 5498 Jul, [facility] [place] [facility] [address] [id number] [place] [address]- 1579 Jul, [facility] [place] [facility] [address] [id number] [place] [address]- 8021 Jul, [facility] [place] [facility] [address] [id number], [place] [address]- 7157 Jul, [facility] [place] [facility] [address] [id number] [address]- 2566 Jul, [facility] [place] [facility] [address] [id number] [place] [address]- 3680 Jul, [facility] [place] [facility] [address] [id number] [address]- 8549 Jul, [facility] [place] [facility] [address] [id number], [place] [address]- 6388 Jul, [facility] [place] [facility] [address] [id number] [place] [address]- 2739 Jul, [facility] [place] [facility] [address] [id number] [place] [address]- 0404 Jul, [facility] [place] [facility] [address] [id number] [place] [address]- 1741 Jun, [facility] [place] [facility] [address] [id number] [place] [address]- 0633 Jun, [facility] [place] [facility] [address] [id number] [place] [address]- 0284 Jun, [facility] [place] [facility] [address] [id number] [place] [address]- 5317 Jun, [facility] [place] [facility] [address] [id number] [place] [address]- 3943 Jun, [facility] [place] [facility] [address] [id number] [place] [address]- 8198 Jun, [facility] [place] [facility] [address] [id number] [place] [address]- 5584 15 Jun, 2014 [facility] [place] [facility] [address] [id number] [place] [address]- 9650 15 Jun, 2014 [facility] [place] [facility] [address] [id number] [place] [address]- 9317 22 May, 2014 [facility] [place] [facility] [address] [id number] [place] [address]- 7187 22 May, 2013 [facility] [place] [facility] [address] [id number] [place] [address]- 4945 18 May, 2013 [facility] [place] [facility] [address] [id number] [place] [address]- 7494 18 May, 2013 [facility] [place] [facility] [address] [id number] [place] [address]- 7215 09 Sep, 2013 [facility] [place] [facility] [address] [id number] [place] [address]- 0848 May, [facility] [place] [facility] [address] [id number] [place] [address]- 6299 May, [facility] [place] [facility] [address] [id number] [place] [address] May, [facility] [place] [facility] [address] [id number] [place] [address]- 7145 Apr, [facility] [place] [facility] [address] [id number] [place] [address]- 6798 Apr, [facility] [place] [facility] [address] [id number] [place] [address]- 2849 Apr, [facility] [place] [facility] [address] [id number] [place] [address]- 6467 Apr, [facility] [place] [facility] [address] [id number] [place] [address]- 1651 Mar, [facility] [place] [facility] [address] [id number] [place] [address]- 6442 Mar, [facility] [place] [facility] [address] [id number] [place] [address]- 9968 Mar, [facility] [place] [facility] [address] [id number] [place] [address]- 3355 Mar, [facility] [place] [facility] [address] [id number] [place] [address]- 7397 Mar, [facility] [place] [facility] [address] [id number] [place] [address]- 6093 Mar, [facility] [place] [facility] [address] [id number] [place] [address]- 6559 Jan, [facility] [place] [facility] [address] [id number] [place] [address]- 2605 Jan, [facility] [place] [facility] [address] [id number] [place] [address]- 7661 Jan, [facility] [place] [facility] [address] [id number] [place] [address]- 9207 Jan, [facility] [place] [facility] [address] [id number] [place] [address]- 3604 Jan, [facility] [place] [facility] [address] [id number] [place] [address]- 2163 Jan, [facility] [place] [facility] [address] [id number] [place] [address]- 0617 Jan, [facility] [place] [facility] [address] [id number] [place] [address]- 4535 Jan, [facility] [place] [facility] [address] [id number] [place] [address]- 6489 Jan, [facility] [place] [facility] [address] [id number] [place] [address]- 9864 Jan, [facility] [place] [facility] [address] [id number] [place] [address]- 2817 Jan, [facility] [place] [facility] [address] [id number] [place] [address]- 8958 Jan, [facility] [place] [facility] [address] [id number] [place] [address]- 2942 December, [facility] [place] [facility] [address] [id number] [place] [address]- 1423 December, [facility] [place] [facility] [address] [id number] [place] [address]- 2533 December, [facility] [place] [facility] [address] [id number] [place] [address]- 5298 December, [facility] [place] [facility] [address] [id number] [place] [address]- 2291 Dec, [facility] [place] [facility] [address] [id number] [place] [address]- 7405 Dec, [facility] [place] [facility] [address] [id number] [place] [address]- 7788 Dec, [facility] [place] [facility] [address] [id number] [place] [address]- 7686 Dec, [facility] [place] [facility] [address] [id number] [place] [address]- 6992 Dec, [facility] [place] [facility] [address] [id number] [place] 4[address] Dec, [facility] [place] [facility] [address] [id number] [place] [address]- 8345 Dec, [facility] [place] [facility] [address] [id number] [place] [address]- 9076 Dec, [facility] [place] [facility] [address] [id number] [place] [address]- 1904 Dec, [facility] [place] [facility] [address] [id number] [place] [address]- 5821 Dec, [facility] [place] [facility] [address] [id number] [place] [address]- 0074 Dec, [facility] [place] [facility] [address] [id number] [place] [address]- 7172 Dec, [facility] [place] [facility] [address] [id number] [place] [address]- 1628 Dec, [facility] [place] [facility] [address] [id number] [place] [address]- 3898 Dec, [facility] [place] [facility] [address] [id number] [place] [address]- 9381 Oct, [facility] [place] [facility] [address] [id number] [place] [address]- 7564 Oct, [facility] [place] [facility] [address] [id number] [place] [address]- 5999 Oct, [facility] [place] [facility] [address] [id number] [place] [address]- 8181 Oct, [facility] [place] [facility] [address] [id number] [place] [address]- 2732 Oct, [facility] [place] [facility] [address] [id number] [place] [address]- 8259 Oct, [facility] [place] [facility] [address] [id number] [place] [id number] Oct, [facility] [place] [facility] [address] [id number] [place] [address]- 8698 Oct, [facility] [place] [facility] [address] [id number] [place] [address]- 7436 Oct, [facility] [place] [facility] [address] [id number] [place] [address]- 4185 Oct, [facility] [place] [facility] [address] [id number] [place] [address]- 2540 Sep, [facility] [place] [facility] [address] [id number] [place] [address]- 5290 Sep, [facility] [place] [facility] [address] [id number] [place] [address]- 2906 Sep, [facility] [place] [facility] [address] [id number] [place] [address]- 2571 Sep, [facility] [place] [facility] [address] [id number] [place] [address]- 8622 Sep, [facility] [place] [facility] [address] [id number] [place] [address]- 0186 Sep, [facility] [place] [facility] [address] [id number], [place] [address]- 3879 Aug, [facility] [place] [facility] [address] [id number] [place] [address]- 7705 Aug, [facility] [place] [facility] [address] [id number] [place] [address]- 3856 Jul, [facility] [place] [facility] [address] [id number] [place] [address]- 0504 Jul, [facility] [place] [facility] [address] [id number], [place] [address]- 7[address] Jul, [facility] [address] [facility] [id number] [place] [address]- 8534 Jul, [facility] [address] [facility] [id number] [address] Jul, IMMUNIZATIONS No Known Immunizations SOCIAL HISTORY Never Assessed REASON FOR VISIT Suboxone RX (03/12-03/26) PLAN OF CARE VITAL SIGNS MEDICATIONS Medication [...]
[2018-08-30 21:43] LABS: BASOPHILS # (AUTO) 0.1 10^3/uL (0.0-0.1); BASOPHILS % (AUTO) 1 % (0-10); EOSINOPHILS # (AUTO) 0.3 10^3/uL (0.0-0.3); EOSINOPHILS % (AUTO) 2 % (0-10); HEMATOCRIT 47 % (35-52); LYMPHOCYTES # (AUTO) 1.3 X 10^3 (1.0-4.0); LYMPHOCYTES % (AUTO) 9 % (12-44); MEAN CORPUSCULAR HEMOGLOBIN 31 PG (25-34); MEAN CORPUSCULAR HGB CONC 34 G/DL (32-36); MEAN CORPUSCULAR VOLUME 91 FL (80-99); MEAN PLATELET VOLUME 10.2 FL (7.4-10.4); MONOCYTES # (AUTO) 1.1 X 10^3 (0.0-1.0); MONOCYTES % (AUTO) 8 % (0-12); NEUTROPHILS # (AUTO) 11.3 X 10^3 (1.8-7.8); NEUTROPHILS % (AUTO) 80 % (42-75); PLATELET COUNT 200 10^3/uL (130-400); RED BLOOD COUNT 5.15 10^6/uL (4.35-5.85); RED CELL DISTRIBUTION WIDTH 13.3 % (10.0-14.5); WHITE BLOOD COUNT 14.1 10^3/uL (4.3-11.0)
[2018-08-30] MEDS ORDERED: cefTRIAXone 1 GM/NS 50 ML IVPB IV SCH ×2 (22:00)
[2018-08-30 22:07] LABS: LIPASE < 4 U/L (8-78); MAGNESIUM 2.6 MG/DL (1.8-2.4)
[2018-08-30] MEDS ORDERED: cefTRIAXone FOR IV USE 1,000 MG in NS (IVPB) 50 ML IV ONE (22:15)
[2018-08-30 22:19] LABS: ALANINE AMINOTRANSFERASE 14 U/L (0-55); ALBUMIN 3.8 GM/DL (3.2-4.5); ALKALINE PHOSPHATASE 66 U/L (40-136); BILIRUBIN,TOTAL 0.5 MG/DL (0.1-1.0); BUN/CREATININE RATIO 11; CALCIUM 9.1 MG/DL (8.5-10.1); CARBON DIOXIDE 17 MMOL/L (21-32); CHLORIDE 110 MMOL/L (98-107); CREATININE SERUM 2.13 MG/DL (0.60-1.30); GFR ESTIMATED 27; GLUCOSE 217 MG/DL (70-105); POTASSIUM 4.5 MMOL/L (3.6-5.0); SODIUM 141 MMOL/L (135-145); TOTAL PROTEIN 6.8 GM/DL (6.4-8.2)
[2018-08-30 22:43] VITALS: BP 132/85
[2018-08-30] MEDS ORDERED: D5 1/2 NS W/KCL 20 MEQ/L 1,000 ML IV ONE (23:43)
--- NOTE | 2018-08-30 23:45 | NUR ---
PT'S FSBS 75MG/DL. DR HINSON AWARE. ORDERS GIVEN.
[2018-08-30] MEDS: D5 1/2 NS W/KCL 20 MEQ/L 1,000 ML IV SCH (23:47)
--- NOTE | 2018-08-30 23:50 | NUR ---
PT TO ICU PER W/C. PER DR HINSON, PT TO GO TO ICU W/O MONITORING AT THIS TIME.
--- OUTSIDE RECORDS SUMMARY | 2018-08-30 23:50 | XMS REPORT | Continuity of Care Document ---
Demographics Preferred Language Unknown Marital Status Unknown Buddhist Affiliation Unknown Race Unknown Ethnic Group Unknown Author Author [facility] Address Unknown Phone Unavailable Allergies [...] 0.0-0.1 Urinalysis, Complete - 05/20/17 11:24 Specific [place] 1.016 1.005-1.030 pH 6.0 5.0-7.5 Urine-Color Yellow [...] 7-25 CREATININE 1.90 mg/dL 0.50-1.10 eGFR NON-AFR. ROMANIAN 34 mL/min/1.73m2 > OR=60 eGFR 39 mL/min/1.73m2 [...] Status Pt. Type Provider Facility Loc./Unit Complaint [id number] 05/21/2017 11:09:00 Document Registration [id number] 12/19/2016 12:00:00 12/19/2016 13:58:00 [id number] 12/19/2016 13:09:08 Document Registration [id number] 05/01/2017 03:07:00 Document Registration [id number] 07/23/2018 17:30:00 07/23/2018 23:59:59 [facility] Nic MILLER MD, NOEMY Barton [facility] [id number] 05/14/2018 09:30:00 Document Registration [id number] 04/01/2018 08:40:00 Document Registration [id number] 07/22/2017 12:00:00 Document Registration [id number] 05/20/2017 11:20:00 Document Registration [id number] 04/26/2017 13:20:00 Document Registration
[2018-08-31] VITALS (18 sets, daily range): BP systolic 94–144; BP diastolic 55–108
--- NOTE | 2018-08-31 00:05 | NUR ---
BESSY CHAPMAN admitted to room CU10-1, with an admitting diagnosis of DKA,UTI, on 08/30/18 from AM via , accompanied by .BESSY CHAPMAN introduced to surroundings, call light, bed controls, phone, TV, temperature control, lights, meal times, smoking policy, visitor policy, side rail policy, bathrooms and showers. Patient Rights given to patient in the handbook. BESSY CHAPMAN verbalizes understanding that [facility] is not responsible for the loss or damage to any personal effects or valuables that are kept in the patients posession during their hospitalization. The following Patient Care Plans were discussed with the : Discharge Planning, ,, and . BESSY CHAPMAN verbalizes understanding of Interdisciplinary Patient Education. Patient and/or family were informed about the Rapid Response Team and its purpose.
[2018-08-31] MEDS ORDERED: HYDROcodone/APAP 5 MG/325 MG (LORTAB) TAB PO PRN (00:15)
[2018-08-31] MEDS ORDERED: ACETAMINOPHEN 500 MG TAB (TYLENOL) PO PRN (00:15)
[2018-08-31] MEDS ORDERED: REGULAR inSUlin DRIP 250 UNITS/NS 250 ML IV SCH ×2 (00:15)
[2018-08-31] MEDS ORDERED: ONDANSETRON 4 MG/2 ML (SDV) Z0FRAN IV PRN (00:15)
[2018-08-31] MEDS ORDERED: NS IV 1000 ML X 1 WIDE OPEN IV ONE (00:15)
[2018-08-31] MEDS ORDERED: NORMAL SALINE 250 ML ONE (01:20)
[2018-08-31] MEDS ORDERED: inSUlin (REGULAR) HUMAN 1 UNIT/0.01 ML (CHARGE PER UNIT) ONE (01:21)
[2018-08-31] MEDS: D5 1/2 NS IV 1,000 ML IV SCH ×3 (01:31→07:47)
[2018-08-31] MEDS: 1/2 NS IV SOLUTION 1,000 ML IV SCH ×3 (01:45→07:51)
[2018-08-31] MEDS: DEXTROSE 10% IV SOLUTION 1,000 ML IV SCH ×2 (01:45→10:35)
[2018-08-31] MEDS: POTASSIUM CL 10MEQ/50ML IVPB X 4 (TOTAL 40 MEQ) IV SCH ×3 (01:46→01:48)
[2018-08-31 03:43] LABS: BASOPHILS # (AUTO) 0.1 10^3/uL (0.0-0.1); BASOPHILS % (AUTO) 1 % (0-10); EOSINOPHILS # (AUTO) 0.1 10^3/uL (0.0-0.3); EOSINOPHILS % (AUTO) 1 % (0-10); HEMATOCRIT 46 % (35-52); HEMOGLOBIN 15.3 G/DL (11.5-16.0); LYMPHOCYTES % (AUTO) 17 % (12-44); MEAN CORPUSCULAR HEMOGLOBIN 31 PG (25-34); MEAN CORPUSCULAR HGB CONC 34 G/DL (32-36); MEAN CORPUSCULAR VOLUME 91 FL (80-99); MEAN PLATELET VOLUME 10.5 FL (7.4-10.4); MONOCYTES # (AUTO) 0.5 X 10^3 (0.0-1.0); MONOCYTES % (AUTO) 4 % (0-12); NEUTROPHILS % (AUTO) 78 % (42-75); PLATELET COUNT 179 10^3/uL (130-400); RED BLOOD COUNT 5.02 10^6/uL (4.35-5.85); WHITE BLOOD COUNT 11.6 10^3/uL (4.3-11.0)
[2018-08-31 04:04] LABS: CALCIUM 8.6 MG/DL (8.5-10.1); CREATININE SERUM 1.91 MG/DL (0.60-1.30); MAGNESIUM 2.1 MG/DL (1.8-2.4); PHOSPHORUS 2.4 MG/DL (2.3-4.7); POTASSIUM 4.1 MMOL/L (3.6-5.0)
[2018-08-31] MEDS: D5 1/2 NS W/KCL 20 MEQ/L 1,000 ML IV SCH ×3 (05:12→11:14)
[2018-08-31] MEDS ORDERED: KCL 20 MEQ TAB (K-DUR) PO SCH (06:00)
[2018-08-31] MEDS ORDERED: POTASSIUM CL 10MEQ/50ML IVPB 50 ML IV SCH (06:00)
[2018-08-31] MEDS ORDERED: MAGNESIUM 1 GM/100 ML IVPB 100 ML IV SCH (06:00)
[2018-08-31 08:56] LABS: AMPHETAMINE SCREEN, URINE NEGATIVE (NEGATIVE); BARBITURATE SCREEN URINE NEGATIVE (NEGATIVE); BENZODIAZEPINES SCREEN URINE NEGATIVE (NEGATIVE); CANNABINOID SCREEN, URINE NEGATIVE (NEGATIVE); COCAINE SCREEN URINE NEGATIVE (NEGATIVE); METHADONE STAT NEGATIVE (NEGATIVE); METHAMPHETAMINE SCREEN URINE S NEGATIVE (NEGATIVE); OPIATE SCREEN URINE NEGATIVE (NEGATIVE); OXYCODONE STAT NEGATIVE (NEGATIVE); PROPOXYPHENE STAT NEGATIVE (NEGATIVE); TRICYCLIC ANTIDEPRESSANTS SCRE NEGATIVE (NEGATIVE)
[2018-08-31 10:10] LABS: CALCIUM 7.9 MG/DL (8.5-10.1); CREATININE SERUM 1.68 MG/DL (0.60-1.30)
[2018-08-31] MEDS ORDERED: DICY20TA10 PO (11:46)
[2018-08-31] MEDS ORDERED: ENAL10TA PO (11:47)
[2018-08-31] MEDS ORDERED: LOVA20TA2 PO (11:47)
[2018-08-31] MEDS ORDERED: CHOL10003 PO (11:48)
[2018-08-31] MEDS ORDERED: OMG1KC PO (11:48)
[2018-08-31] MEDS ORDERED: POTA99TA21 PO (11:48)
[2018-08-31] MEDS ORDERED: HUMALOG PUMP (11:49)
[2018-08-31] MEDS ORDERED: ASCO-262 PO (11:49)
--- NOTE | 2018-08-31 11:50 | NUR ---
SPOKE WITH PATIENT SHE STATED WHAT SHE TOOK. ONLY THING ON EXTERNAL MEDICATION HISTORY IS THE DICYCLOMINE AND ENALAPRIL. STATES SHE GETS HER MEDICATIONS FILLED AT [facility].
[2018-08-31] MEDS ORDERED: inSUlin ASPART (NovoLOG) 1 UNIT/0.01 ML (CHARGE PER UNIT) SC NR (11:55)
[2018-08-31] MEDS ORDERED: FAMOTIDINE 20 MG (PEPCID) TABLET PO NR (12:55)
--- NOTE | 2018-08-31 14:06 | Short Stay Summary ---
History of Present Illness History of Present Illness Reason for visit/HPI This is a 33 yo female, pt of Dr. Paige'aaron with known DM Type 1. Pt reports yesterday she had an episode of vomiting. She checked her BS and it was >500. She gave herself additional insulin and then went to work but continued to have elevated BS and vomiting. Pt has an insulin pump which she recently changed the needle/tubing and is concerned it may be bent. Pt was found to be in early DKA in the ER and was admitted for IV insulin and aggressive fluid replacement. She is feeling improved this am. Date of Admission Aug 30, 2018 at 22:52 Date of Discharge Aug 31, 2018 Time Seen by Provider: 09:15 Attending Physician Alvin Carmen DO Admitting Physician Deleted Consult Allergies and Home Medications Allergies Coded Allergies: sulfamethoxazole (Verified Allergy, Mild, rash, 08/30/18) Penicillins (Verified Adverse Reaction, Mild, upset stomach, 08/30/18) amoxicillin ok. ciprofloxacin (Verified Adverse Reaction, Mild, Upset stomach, 08/30/18) Home Medications Ascorbate Calcium 500 Mg Tablet, 500 MG PO DAILY, (Reported) Buprenorphine HCl/Naloxone HCl 1 Each Film, 2.5 EACH SL DAILY, (Reported) Bupropion HCl 150 Mg Tab.er.24h, 150 MG PO DAILY Prescribed by: ALVIN CARMEN on 08/31/18 1447 Cholecalciferol (Vitamin D3) 1,000 Unit Tablet, 1,000 UNIT PO DAILY, (Reported) Dicyclomine HCl 20 Mg Tablet, 20 MG PO TID PRN for IBS, (Reported) Enalapril Maleate 10 Mg Tablet, 10 MG PO 1700, (Reported) Nitrofurantoin Monohyd/M-Cryst 100 Mg Capsule, 1 TAB PO BID Prescribed by: ALVIN CARMEN on 08/31/18 1447 [place] 3 Polyunsat Fatty Acids 1,000 Mg Cap, 1,000 MG PO DAILY, (Reported) Potassium Gluconate 99 Mg Tablet, 99 MG PO DAILY, (Reported) Patient Home Medication List Home Medication List Reviewed: Yes Past [id number] Hx Patient Social History Alcohol Use: Denies Use Recreational Drug Use: No Smoking Status: Current Everyday Smoker Type Used: Cigarettes 2nd Hand Smoke Exposure: Yes Physical Abuse Screen: No Sexual Abuse: No Recent Foreign Travel: No Contact w/other who traveled: No Recent Hopitalizations: No Recent Infectious Disease Expo: No Immunizations Up To Date Tetanus Booster (TDap): Unknown Date of Influenza Vaccine: Jul 01, 2018 Seasonal Allergies Seasonal Allergies: No Surgeries No Respiratory No Cardiovascular Yes High Cholesterol, Hypertension Neurological No Genitourinary No Gastrointestinal No Musculoskeletal No Endocrine History of Endocrine Disorders: Yes Endocrine Disorders: Diabetes, Insulin dep Are Your Blood Sugars Over 250: Yes HEENT History of HEENT Disorders: No Cancer No Psychosocial History of Psychiatric Problem: No Integumentary History of Skin or Integumenta: No Blood Transfusions History of Blood Disorders: No Review of Systems Constitutional: see HPI Physical Exam Vital Signs Vital Signs - First Documented 08/30/18 22:43 Temp 97.1 Pulse 99 Resp 18 B/P (MAP) 132/85 (101) Pulse Ox 100 O2 Delivery Room Air Capillary Refill : Less Than 3 Seconds Height, Weight, BMI Height: 5'6.00" Weight: 204lbs. 0.0oz. [id number]; 32.9 BMI Method:Stated General Appearance: No Apparent Distress, WD/WN Respiratory: Lungs Clear, Normal Breath Sounds, No Accessory Muscle Use, No Respiratory Distress Cardiovascular: Regular Rate, Rhythm Neurologic/Psychiatric: Alert, Oriented x3, Normal Mood/Affect Skin: Normal Color, Warm/Dry Clinical Quality Measures DVT/VTE Risk/Contraindication: Risk Factor Score Per Nursin RFS Level Per Nursing on Admit: 1=Low/No VTE PPX Short Stay Diagnosis Discharge Diagnosis-Short Stay Admission Diagnosis: 1. DKA 2. DM Type 1 Final Discharge Diagnosis: 1. DKA 2. DM Type 1 3. JENNIFER 4. UTI Conclusion Labs Laboratory Tests 08/30/18 20:18: Glucometer 325H 08/30/18 20:26: Urine Color YELLOW, Urine Clarity VERY CLOUDYH, Urine pH 6, Urine Specific [place] 1.005L, Urine Protein 3+H, Urine Glucose (UA) 4+H, Urine Ketones 1+H, Urine Nitrite NEGATIVE, Urine Bilirubin NEGATIVE, Urine Urobilinogen NORMAL, Urine Leukocyte Esterase 1+H, Urine RBC (Auto) 2+H, Urine RBC 0-2, Urine WBC 10- 25H, Urine Squamous Epithelial Cells 2-5, Urine Renal Epithelial Cells RARE, Urine Crystals NONE, Urine Bacteria LARGEH, Urine Casts NONE, Urine Mucus NEGATIVE, Urine Culture Indicated YES, Urine Test NEGATIVE, Urine Opiates Screen NEGATIVE, Urine Oxycodone Screen NEGATIVE, Urine Methadone Screen NEGATIVE, Urine Propoxyphene Screen NEGATIVE, Urine Barbiturates Screen NEGATIVE, Ur Tricyclic Antidepressants Screen NEGATIVE, Urine Phencyclidine Screen NEGATIVE, Urine Amphetamines Screen NEGATIVE, Urine Methamphetamines Screen NEGATIVE, Urine Benzodiazepines Screen NEGATIVE, Urine Cocaine Screen NEGATIVE, Urine Cannabinoids Screen NEGATIVE 08/30/18 21:32: White Blood Count 14.1H, Red Blood Count 5.15, Hemoglobin 16.0, Hematocrit 47, Mean Corpuscular Volume 91, Mean Corpuscular Hemoglobin 31, Mean Corpuscular Hemoglobin Concent 34, Red Cell Distribution Width 13.3, Platelet Count 200, Mean Platelet Volume 10.2, Neutrophils (%) (Auto) 80H, Lymphocytes (%) (Auto) 9L , Monocytes (%) (Auto) 8, Eosinophils (%) (Auto) 2, Basophils (%) (Auto) 1, Neutrophils # (Auto) 11.3H, Lymphocytes # (Auto) 1.3, Monocytes # (Auto) 1.1H, Eosinophils # (Auto) 0.3, Basophils # (Auto) 0.1, Sodium Level 141, Potassium Level 4.5, Chloride Level 110H, Carbon Dioxide Level 17L, Anion Gap 14, Blood Urea Nitrogen 24H, Creatinine 2.13H, Estimat Glomerular Filtration Rate 27, BUN/ Creatinine Ratio 11, Glucose Level 217H, Calcium Level 9.1, Corrected Calcium 9.3, Magnesium Level 2.6H, Total Bilirubin 0.5, Aspartate Amino Transf (AST/SGOT ) 16, Alanine Aminotransferase (ALT/SGPT) 14, Alkaline Phosphatase 66, Total Protein 6.8, Albumin 3.8, Lipase < 4L 08/30/18 23:44: Glucometer 75 08/31/18 00:10: Glucometer 113H 08/31/18 01:16: Glucometer 147H 08/31/18 02:29: Glucometer 214H 08/31/18 03:24: Glucometer 230H 08/31/18 03:29: White Blood Count 11.6H, Red Blood Count 5.02, Hemoglobin 15.3, Hematocrit 46, Mean Corpuscular Volume 91, Mean Corpuscular Hemoglobin 31, Mean Corpuscular Hemoglobin Concent 34, Red Cell Distribution Width 13.0, Platelet Count 179, Mean Platelet Volume 10.5H, Neutrophils (%) (Auto) 78H, Lymphocytes (%) (Auto) 17, Monocytes (%) (Auto) 4, Eosinophils (%) (Auto) 1, Basophils (%) (Auto) 1, Neutrophils # (Auto) 9.0H, Lymphocytes # (Auto) 2.0, Monocytes # (Auto) 0.5, Eosinophils # (Auto) 0.1, Basophils # (Auto) 0.1, Sodium Level 139, Potassium Level 4.1, Chloride Level 108H, Carbon Dioxide Level 19L, Anion Gap 12, Blood Urea Nitrogen 22H, Creatinine 1.91H, Estimat Glomerular Filtration Rate 30, BUN/ Creatinine Ratio 12, Glucose Level 249H, Calcium Level 8.6, Phosphorus Level 2.4 , Magnesium Level 2.1 08/31/18 05:22: Glucometer 267H 08/31/18 06:25: Glucometer 178H 08/31/18 07:53: Glucometer 171H 08/31/18 09:05: Glucometer 139H 08/31/18 09:43: Glucometer 153H 08/31/18 09:44: Sodium Level 138, Potassium Level 4.0, Chloride Level 110H, Carbon Dioxide Level 19L, Anion Gap 9, Blood Urea Nitrogen 20H, Creatinine 1.68H, Estimat Glomerular Filtration Rate 35, BUN/Creatinine Ratio 12, Glucose Level 158H, Calcium Level 7.9L 08/31/18 10:40: Glucometer 188H 08/31/18 11:38: Glucometer 217H 08/31/18 12:36: Glucometer 204H 08/31/18 13:38: Conclusion/Plan 1. DKA - resolved - BS on admission 325, CO2 was 17, AG 14 - admitted for aggressive IVF and IV insulin drip - BS now 178, CO2 19, AG 12 -->9 - restarted insulin pump, DC IV insulin and monitor BS; pump tubing is being replaced by patient as BS started to increase after restarting the pump - suspect kink in the tubing which contributed to DKA. - anticipate DC home today 2. DM Type 1 3. JENNIFER on CKD Stage 3 Cr on admission 2.13 --> 1.91 --> 1.68 IVF 4. UTI - urine culture pending - started on Rocephin in the ER - will DC on po Macrobid Discharge Inst-[facility] Discharge Medications New, Converted or Re-Newed RX: Transmitted to Pharmacy ([facility]) New Medications: Bupropion HCl (Wellbutrin Xl) 150 Mg Tab.er.24h 150 MG PO DAILY for depression, #30 TAB 0 Refills Nitrofurantoin Monohyd/M-Cryst (Macrobid 100 mg Capsule) 100 Mg Capsule 1 TAB PO BID for 5 Days, #10 CAP 0 Refills Continued Medications: Ascorbate Calcium (Vitamin C) 500 Mg Tablet 500 MG PO DAILY, TAB Atorvastatin Calcium (Atorvastatin Calcium) 40 Mg Tablet 40 MG PO, TAB Buprenorphine HCl/Naloxone HCl (Suboxone 8 mg-2 mg Sl Film) 1 Each Film 2.5 EACH SL DAILY, FILM Cholecalciferol (Vitamin D3) (Vitamin D3) 1,000 Unit Tablet 1000 UNIT PO DAILY, TAB Dicyclomine HCl (Dicyclomine HCl) 20 Mg Tablet 20 MG PO TID PRN for IBS, TAB Enalapril Maleate (Enalapril Maleate) 10 Mg Tablet 10 MG PO 1700, TAB [Humalog Pump] () [place] 3 Polyunsat Fatty Acids (Fish Oil 1,000 mg Capsule) 1,000 Mg Cap 1000 MG PO DAILY, CAP Potassium Gluconate (Potassium) 99 Mg Tablet 99 MG PO DAILY, TAB Patient Instructions Goal/Follow Up Appt: [facility] for [facility] will call with f/u appointment with Dr. Carmen Activity & Diet Discharge Diet: ADA Diet Orders-Post D/C & Referrals Pneu Vac Indicated: Yes ALVIN CARMEN DO Aug 31, 2018 14:06
[2018-08-31] MEDS ORDERED: BUPR1FIL3 SL (14:22)
[2018-08-31] MEDS ORDERED: ATOR40TA70 PO (14:43)
[2018-08-31] MEDS ORDERED: BUPR-42 PO (14:47)
[2018-08-31] MEDS ORDERED: NITR-65 PO (14:47)
--- NOTE | 2018-08-31 14:53 | Discharge Instructions ---
Discharge [facility] Discharge Medications New, Converted or Re-Newed RX: Transmitted to Pharmacy ([facility]) New Medications: Bupropion HCl (Wellbutrin Xl) 150 Mg Tab.er.24h 150 MG PO DAILY for depression, #30 TAB 0 Refills Nitrofurantoin Monohyd/M-Cryst (Macrobid 100 mg Capsule) 100 Mg Capsule 1 TAB PO BID for 5 Days, #10 CAP 0 Refills Continued Medications: Ascorbate Calcium (Vitamin C) 500 Mg Tablet 500 MG PO DAILY, TAB Atorvastatin Calcium (Atorvastatin Calcium) 40 Mg Tablet 40 MG PO, TAB Buprenorphine HCl/Naloxone HCl (Suboxone 8 mg-2 mg Sl Film) 1 Each Film 2.5 EACH SL DAILY, FILM Cholecalciferol (Vitamin D3) (Vitamin D3) 1,000 Unit Tablet 1000 UNIT PO DAILY, TAB Dicyclomine HCl (Dicyclomine HCl) 20 Mg Tablet 20 MG PO TID PRN for IBS, TAB Enalapril Maleate (Enalapril Maleate) 10 Mg Tablet 10 MG PO 1700, TAB [Humalog Pump] () [place] 3 Polyunsat Fatty Acids (Fish Oil 1,000 mg Capsule) 1,000 Mg Cap 1000 MG PO DAILY, CAP Potassium Gluconate (Potassium) 99 Mg Tablet 99 MG PO DAILY, TAB Patient Instructions Goal/Follow Up Appt: [facility] for [facility] will call with f/u appointment with Dr. Carmen Activity & Diet Discharge Diet: ADA Diet Orders-Post D/C & Referrals Pneu Vac Indicated: Yes ALVIN CARMEN DO Aug 31, 2018 14:53
--- NOTE | 2018-09-03 13:11 | Physician Query Clarification ---
PQ-Further Specificity Admission/Discharge Admission Date: Aug 30, 2018 at 22:52 Discharge Date: Aug 31, 2018 at 15:48 The medical record reflects the following clinical scenario: History/Risk Factors: DKA, UTI, HTN W/CKD stg 3 Clinical Findings: Bun 24, Creatinine 2.13 Treatment: IV fluids Question: Can you further specify JENNIFER per the clinical indicators above? Please document below. 1. JENNIFER meaning acute kidney failure 2. JENNIFER meaning acute kidney insufficiency 3. Other, with explanation of the clinical findings. 4. Clinically undetermined, no explanation for the clinical findings. PHYSICIAN RESPONSE Can you specify per above: 2 Explanation/Clinical Findings Acute Kidney Injury on Chronic Kidney Disease stage 3 In responding to this query, please exercise your independent professional judgment. The purpose of this communication is to more accurately reflect the complexity of your patients condition. The fact that a question is asked does not imply that any particular answer is desired or expected. Thank you for your timely response to this clarification. Requestors name: Carmen THIS PHYSICIAN QUERY FORM IS A PERMANENT PART OF THE MEDICAL RECORD CARMEN ALTMAN Sep 03, 2018 13:11 ALVIN CARMEN DO Sep 04, 2018 07:06
== END 2018-08-31 15:48 | disposition home or self-care (01) | DRG 638 ==
LOC: ER 20:13 → ICU 22:52 → MERGE 22:52
PROVIDERS: ADMIT Family Medicine; ATTEND Family Medicine
DX: E10.10 Type 1 diabetes mellitus with ketoacidosis without coma (principal); Z79.4 Long term (current) use of insulin; N30.01 Acute cystitis with hematuria; I12.9 Hypertensive chronic kidney disease with stage 1 through stage 4 chronic kidney disease, or unspecified chronic kidney disease; N18.3 Chronic kidney disease, stage 3 (moderate); N28.9 Disorder of kidney and ureter, unspecified; F17.210 Nicotine dependence, cigarettes, uncomplicated; E78.00 Pure hypercholesterolemia, unspecified
CPT/HCPCS: 36415; 80048; 80053; 80306; 81000; 82962; 83690; 83735; 84100; 84703; 85025; 87077; 87088; 87186; 96374

== ENCOUNTER → 2021-03-21 | Outpatient (CLI) | payer OTHER ==
[~2021-03-21] MED LIST changes: +ASCO-262 PO; +ATOR40TA70 PO; +BUPR-42 PO; +BUPR1FIL3 SL; +CHOL10003 PO; +DICY20TA10; +DICY20TA10 PO; +ENAL10TA16; +ENAL10TA16 PO; +HUMALOG PUMP; +LOVA20TA2 PO; +NITR-65 PO; +OMG1KC PO; +POTA99TA21 PO
== END ==
LOC: CARD 12:00
PROVIDERS: ATTEND Nurse Practitioner Family
DX: R00.2 Palpitations (principal)
CPT/HCPCS: 93225; 93226